=== PATIENT | female | born 1990 | race African-American/Black ===

== ENCOUNTER 2018-01-13 22:46 | Emergency (ER) | payer OTHER ==
[2018-01-13 23:43] LABS: Urine Blood 2+ (NEG); Urine Glucose NEGATIVE (NEG); Urine Protein NEGATIVE (NEG); Urine Specific Gravity >1.030 (1.005-1.030); Urine pH 6.5 (5.0-7.0)
[2018-01-14] MEDS ORDERED: PROMETHAZINE 25 MG/ML VIAL ONE (00:30)
[2018-01-14] MEDS ORDERED: NA CHLORIDE 0.9% 1,000 ML ONE (00:30)
[2018-01-14 00:32] LABS: Absolute Lymphocytes (CBC) 5.1 K/uL (0.7-4.9); Absolute Monocytes 0.8 K/uL (0.1-1.3); Absolute Neutrophil 3.9 K/uL (1.8-8.0); Basophils % 0.6 % (0-1.3); Hematocrit 36.8 % (36.0-45.0); Lymphocytes % 50.2 % (15.3-44.8); MCH 29.9 pg (27.0-35.0); MCV 90.5 fL (80-100); MPV 9.9 fL (7.6-11.3); Monocytes % 7.8 % (3.3-12.3); RBC Red Blood Cell Count 4.06 M/uL (3.86-4.86)
[2018-01-14 00:56] LABS: Bicarbonate 27 mEq/L (21-31); Glucose Level 100 mg/dL (65-120); Lipase 26 U/L (22-51); Potassium 3.8 mEq/L (3.6-5.0); Sodium Level 138 mEq/L (135-145)
[2018-01-14 01:02] LABS: ALT/SGPT 21 IU/L (10-60); AST/SGOT 23 IU/L (10-42); Albumin 3.7 g/dL (3.2-5.5); BUN Blood Urea Nitrogen 14 mg/dL (6-20); Bilirubin Direct 0.1 mg/dL (0-0.2); Bilirubin Total 0.3 mg/dL (0.3-1.2); Glomerular Filtration Rate 90 mL/min (=/>90); Protein, Total 6.6 g/dL (6.0-8.3)
--- NOTE | 2018-01-14 01:28 | EDPHYS ---
Physician Documentation [facility] Name: Pretty Robbins Age: 27 yrs Sex: Female : 1990 Arrival Date: 01/13/2018 Time: 22:49 Bed 16 Private MD: ED Physician Arvind Torres HPI: 01/14 01:00 This 27 yrs old Black Female presents to ER via Ambulatory with complaints of Vomiting. pm1 01:00 The patient presents to the emergency department with nausea, vomiting, 5 times since pm1 the onset of symptoms, described as bilious. Onset: The symptoms/episode began/occurred today. Possible causes: possible . The symptoms are aggravated by nothing. The symptoms are alleviated by nothing. Associated signs and symptoms: Pertinent negatives: abdominal pain, diarrhea, dysuria, fever, vaginal discharge, Vaginal bleeding. patient believes that she might be . Patient reports breast tenderness along with nausea and vomiting. 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 It has been more than one year since last vaccine. - Social history:: Smoking status: Patient uses tobacco products, smokes one-half pack cigarettes per day, Patient/guardian denies using alcohol, street drugs. - Ebola Screening: : Patient negative for fever greater than or equal to 101.5 degrees Fahrenheit, and additional compatible Ebola Virus Disease symptoms Patient denies exposure to infectious person Patient denies travel to an Ebola-affected area in the 21 days before illness onset No symptoms or risks identified at this time. ROS: 01:00 Constitutional: Negative for fever, chills, and weight loss, Eyes: Negative for injury, pm1 pain, redness, and discharge, ENT: Negative for injury, pain, and discharge, Neck: Negative for injury, pain, and swelling, Cardiovascular: Negative for chest pain, palpitations, and edema, Respiratory: Negative for shortness of breath, cough, wheezing, and pleuritic chest pain. 01:00 Back: Negative for injury and pain, : Negative for injury, bleeding, discharge, and swelling, MS/Extremity: Negative for injury and deformity, Skin: Negative for injury, rash, and discoloration, Neuro: Negative for headache, weakness, numbness, tingling, and seizure. 01:00 Abdomen/GI: Positive for nausea and vomiting, Negative for abdominal pain, diarrhea. Exam: 01:00 Constitutional: This is a well developed, well nourished patient who is awake, alert, pm1 and in no acute distress. Head/Face: Normocephalic, atraumatic. Eyes: Pupils equal round and reactive to light, extra-ocular motions intact. Lids and lashes normal. Conjunctiva and sclera are non-icteric and not injected. Cornea within normal limits. Periorbital areas with no swelling, redness, or edema. ENT: Nares patent. No nasal discharge, no septal abnormalities noted. Tympanic membranes are normal and external auditory canals are clear. Oropharynx with no redness, swelling, or masses, exudates, or evidence of obstruction, uvula midline. Mucous membranes moist. Neck: Trachea midline, no thyromegaly or masses palpated, and no cervical lymphadenopathy. Supple, full range of motion without nuchal rigidity, or vertebral point tenderness. No Meningismus. Chest/axilla: Normal chest wall appearance and motion. Nontender with no deformity. No lesions are appreciated. Cardiovascular: Regular rate and rhythm with a normal S1 and S2. No gallops, murmurs, or rubs. Normal PMI, no JVD. No pulse deficits. Respiratory: Lungs have equal breath sounds bilaterally, clear to auscultation and percussion. No rales, rhonchi or wheezes noted. No increased work of breathing, no retractions or nasal flaring. Abdomen/GI: Soft, non-tender, with normal bowel sounds. No distension or tympany. No guarding or rebound. No evidence of tenderness throughout. Back: No spinal tenderness. No costovertebral tenderness. Full range of motion. Skin: Warm, dry with normal turgor. Normal color with no rashes, no lesions, and no evidence of cellulitis. MS/ Extremity: Pulses equal, no cyanosis. Neurovascular intact. Full, normal range of motion. 01:00 Neuro: Orientation: is normal, Motor: is normal, moves all fours. Vital Signs: 01/13 23:09 BP 127 / 79 RA Sitting (auto/); Pulse 90; Resp 20; Temp 98.8(O); Pulse Ox 100% on R/A; ar4 Pain 10/10; 23:30 BP 131 / 77; Pulse 94; Resp 18; Pulse Ox 100% ; Pain 10/10; tc3 01/14 00:00 BP 114 / 74; Pulse 80; Resp 16; Pulse Ox 100% ; tc3 00:30 BP 113 / 68; Pulse 81; Resp 16; Temp 98.7(O); Pulse Ox 100% ; Pain 10/10; tc3 01:00 BP 124 / 76; Pulse 84; Resp 16; Pulse Ox 99% ; Pain 10/10; tc3 01:44 BP 127 / 83 RA Sitting (auto/); Pulse 75; Resp 18; Pulse Ox 99% on R/A; ar4 MDM: 01/13 23:20 Patient medically screened. pm1 01/14 01:24 Data reviewed: vital signs. Data interpreted: Pulse oximetry: on room air is 99 %. pm1 Interpretation: normal. Counseling: I had a detailed discussion with the patient and/or guardian regarding: the historical points, exam findings, and any diagnostic results supporting the discharge/admit diagnosis, lab results, the need for outpatient follow up, to return to the emergency department if symptoms worsen or persist or if there are any questions or concerns that arise at home. 01/13 23:35 Order name: Urine Dipstick--Ancillary (enter results) [facility] 01/13 23:35 Order name: Urine --Ancillary (enter results) [facility] 01/13 23:36 Order name: Basic Metabolic Panel 1 01/13 23:36 Order name: CBC with Diff pm1 01/13 23:36 Order name: Hepatic Function pm1 01/13 23:36 Order name: Lipase pm1 01/13 23:36 Order name: Test, Serum pm1 01/13 23:44 Order name: Urine --Ancillary; Complete Time: 23:59 EDMS 01/13 23:44 Order name: Urine Dipstick-Ancillary; Complete Time: 23:59 EDMS 01/14 00:47 Order name: CBC with Automated Diff; Complete Time: 00:52 [facility] 01/14 00:51 Order name: Test Serum, [employer] [facility] 01/14 00:56 Order name: Basic Metabolic Panel [facility] 01/14 00:56 Order name: Lipase [facility] 01/14 01:02 Order name: Liver (Hepatic) Function [facility] 01/13 23:20 Order name: Urine Dipstick-Ancillary (obtain specimen); Complete Time: 23:34 pm1 01/13 23:20 Order name: Urine Test (obtain specimen); Complete Time: 23:34 pm1 01/13 23:36 Order name: IV Saline Lock; Complete Time: 00:18 pm1 01/13 23:36 Order name: Labs collected and sent; Complete Time: 00:17 pm1 Administered Medications: 00:17 Drug: Phenergan 12.5 mg Route: IVP; Site: left antecubital; tc3 00:55 Follow up: Response: No adverse reaction; Nausea is decreased; Vomiting decreased tc3 00:17 Drug: NS 0.9% 1000 ml Route: IV; Rate: 1000 ml; Site: left antecubital; tc3 01:22 Follow up: IV Status: Completed infusion; IV Intake: 1000ml tc3 01:28 CANCELLED (Duplicate Order): Bentyl 20 mg PO once tc3 01:35 Drug: Bentyl 20 mg Route: PO; tc3 Disposition: 01/14/18 01:28 Discharged to Home. Impression: Nausea and vomiting. - Condition is Stable. - Discharge Instructions: Nausea and Vomiting. - Prescriptions for Bentyl 20 mg Oral Tablet - take 1 tablet by ORAL route every 6 hours As needed; 20 tablet. Zofran 4 mg Oral Tablet - take 1 tablet by ORAL route every 12 hours As needed; 20 tablet. - Medication Reconciliation Form, Thank You Letter, Antibiotic Education form. - Follow up: Emergency Department; When: As needed; Reason: Worsening of condition. Follow up: Private Physician; When: 2 - 3 days; Reason: Recheck today's complaints, Continuance of care, Re-evaluation by your physician. - Problem is new. - Symptoms have improved. Addendum: 01/18/2018 06:23 Co-signature as Attending Physician, Arvind Torres MD. g s Signatures: Dispatcher [employer] [facility] Alphonse De Leon, X RAY OPERATOR X RAY OPERATOR pm1 Abbey Jhaveri RN RN tc3 Arvind Torres MD MD gs Roberts, Amber ar4 Corrections: (The following items were deleted from the chart) 01/14 01:28 01:28 Bentyl 20 mg PO once ordered. tc3 tc3
--- NOTE | 2018-01-14 01:28 | ER ---
Nurse's Notes [facility] Name: Pretty Robbins Age: 27 yrs Sex: Female : 1990 Arrival Date: 01/13/2018 Time: 22:49 Bed 16 Private MD: Diagnosis: Nausea and vomiting Presentation: 01/13 23:07 Presenting complaint: Patient states: "I have been throwing up since about 7:00 p.m. I ar4 have been nauseated the past few days. There is a possibility I might be .". Transition of care: patient was not received from another setting of care. Onset of symptoms was January 11, 2018. Care prior to arrival: None. 23:07 Method Of Arrival: Ambulatory ar4 23:07 Acuity: ALESSANDRO 3 ar4 Triage Assessment: 23:09 General: Appears in no apparent distress. uncomfortable, obese, Behavior is ar4 cooperative, agitated, restless. Pain: Complains of pain in abdomen; RLQ pain, lower back pain Pain radiates to right side and right flank to lower back. GI: Reports lower abdominal pain, nausea, vomiting, since Pt. reports, "Vomiting since 7:00 p.m. and nausea for the past couple of days.". 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 It has been more than one year since last vaccine. - Social history:: Smoking status: Patient uses tobacco products, smokes one-half pack cigarettes per day, Patient/guardian denies using alcohol, street drugs. - Ebola Screening: : Patient negative for fever greater than or equal to 101.5 degrees Fahrenheit, and additional compatible Ebola Virus Disease symptoms Patient denies exposure to infectious person Patient denies travel to an Ebola-affected area in the 21 days before illness onset No symptoms or risks identified at this time. Screenin/18 23:12 Abuse screen: Denies threats or abuse. Denies injuries from another. Nutritional tc3 screening: No deficits noted. Tuberculosis screening: No symptoms or risk factors identified. Fall Risk None identified. Assessment: 23:22 General: Appears in no apparent distress. uncomfortable, Behavior is cooperative, ar4 agitated, restless. Pain: Complains of pain in abdomen; RLQ, lower back, right side and right flank pain Pain radiates to right side and right flank; lower back Pain currently is 10 out of 10 on a pain scale. at worst was 10 out of 10 on a pain scale. Quality of pain is described as crampy, radiating, Pain began 4 hours ago. Is continuous. Neuro: Level of Consciousness is awake, alert, obeys commands, Oriented to person, place, time, situation, Tube Washer are equal bilaterally Moves all extremities. Gait is steady, Speech is normal, Facial symmetry appears normal, Pupils are PERRLA. Cardiovascular: Reports nausea, shortness of breath, vomiting, Denies chest pain, Heart tones S1 S2 present Capillary refill < 3 seconds is brisk in bilateral fingers Patient's skin is warm and dry. Pulses are all present. Rhythm is regular Chest pain is denied. Respiratory: Airway is patent Breath sounds are clear bilaterally. GI: Abdomen is round non-distended, Bowel sounds present X 4 quads. Abd is soft and non tender in epigastric area, suprapubic area, right upper quadrant, left upper quadrant and left lower quadrant Abd is soft X 4 quads Abdomen is tender to palpation in right lower quadrant. : No signs and/or symptoms were reported regarding the genitourinary system. EENT: No signs and/or symptoms were reported regarding the EENT system. Derm: Skin is intact, is healthy with good turgor, Skin is dry, Skin is normal, Skin temperature is warm. Musculoskeletal: No signs and/or symptoms reported regarding the musculoskeletal system. 01/14 00:11 Reassessment: Patient appears in no apparent distress at this time. No changes from tc3 previously documented assessment. Patient and/or family updated on plan of care and expected duration. Pain level reassessed. Patient is alert, oriented x 3, equal unlabored respirations, skin warm/dry/pink. Pt continues to c/o pain, PHeather De Leon, MEDICAL CERTIFICATION SPECIALIST-C notified. 01:03 Reassessment: Patient appears in no apparent distress at this time. No changes from tc3 previously documented assessment. Patient and/or family updated on plan of care and expected duration. Pain level reassessed. Patient is alert, oriented x 3, equal unlabored respirations, skin warm/dry/pink. pt requests pain medication, JAYRO Samuel notified, he stated he would speak with pt. 01:48 Reassessment: Patient appears in no apparent distress at this time. Patient and/or tc3 family updated on plan of care and expected duration. Pain level reassessed. Patient is alert, oriented x 3, equal unlabored respirations, skin warm/dry/pink. Patient states symptoms have improved. Vital Signs: 01/13 23:09 BP 127 / 79 RA Sitting (auto/); Pulse 90; Resp 20; Temp 98.8(O); Pulse Ox 100% on R/A; ar4 Pain 10/10; 23:30 BP 131 / 77; Pulse 94; Resp 18; Pulse Ox 100% ; Pain 10/10; tc3 01/14 00:00 BP 114 / 74; Pulse 80; Resp 16; Pulse Ox 100% ; tc3 00:30 BP 113 / 68; Pulse 81; Resp 16; Temp 98.7(O); Pulse Ox 100% ; Pain 10/10; tc3 01:00 BP 124 / 76; Pulse 84; Resp 16; Pulse Ox 99% ; Pain 10/10; tc3 01:44 BP 127 / 83 RA Sitting (auto/); Pulse 75; Resp 18; Pulse Ox 99% on R/A; ar4 ED Course: 01/13 22:49 Patient arrived in ED. mr 23:09 Triage completed. ar4 23:09 Arm band placed on left wrist. ar4 23:11 Patient has correct armband on for positive identification. Placed in gown. Bed in low tc3 position. Call light in reach. Side rails up X 1. Pulse ox on. NIBP on. Warm blanket given. Verbal reassurance given. 23:19 Alphonse De Leon NP is PHCP. pm1 23:19 Arvind Torres MD is Attending Physician. pm1 23:37 Urine collected: clean catch specimen, clear. ar4 23:53 Abbey Jhaveri RN is Primary Nurse. tc3 01/14 00:07 Inserted saline lock: 20 gauge in left antecubital area, using aseptic technique. Blood ar4 collected. 00:17 Basic Metabolic Panel Sent. tc3 00:17 CBC with Diff Sent. tc3 00:18 Hepatic Function Sent. tc3 00:18 Lipase Sent. tc3 00:18 Urine Dipstick--Ancillary (enter results) Sent. tc3 00:18 Urine --Ancillary (enter results) Sent. tc3 00:18 Test, Serum Sent. tc3 01:36 No provider procedures requiring assistance completed. IV discontinued, intact, tc3 bleeding controlled, No redness/swelling at site. Pressure dressing applied. Administered Medications: 00:17 Drug: Phenergan 12.5 mg Route: IVP; Site: left antecubital; tc3 00:55 Follow up: Response: No adverse reaction; Nausea is decreased; Vomiting decreased tc3 00:17 Drug: NS 0.9% 1000 ml Route: IV; Rate: 1000 ml; Site: left antecubital; tc3 01:22 Follow up: IV Status: Completed infusion; IV Intake: 1000ml tc3 01:28 CANCELLED (Duplicate Order): Bentyl 20 mg PO once tc3 01:35 Drug: Bentyl 20 mg Route: PO; tc3 Intake: 01:22 IV: 1000ml; Total: 1000ml. tc3 Outcome: 01:28 Discharge ordered by . pm1 01:46 Discharged to home ambulatory. ar4 01:46 Condition: good 01:46 Discharge instructions given to patient, Instructed on discharge instructions, follow up and referral plans. medication usage, Demonstrated understanding of instructions, follow-up care, medications, Prescriptions given X 2. 01:52 Patient left the ED. tc3 01:53 Attestation : I concur with the documentation charted by DAVID Clark. tc3 Signatures: Evie Miller mr De Leon, Alphonse, DIRECTOR OF COMPENSATION DIRECTOR OF COMPENSATION pm1 Abbey Jhaveri RN RN tc3 Pretty Holguin ar4 Corrections: (The following items were deleted from the chart) 01/13 23:21 23:17 General: Appears in no apparent distress. uncomfortable, obese, Behavior is ar4 cooperative, agitated, restless, ar4 23:21 23:17 Pain: Complains of pain in abdomen; RLQ pain, lower back pain Pain radiates to ar4 right side and right flank to lower back ar4 23:21 23:17 GI: Reports lower abdominal pain, nausea, vomiting, since Pt. reports, "Vomiting ar4 since 7:00 p.m. and nausea for the past couple of days." ar4 23:19 BP 127 / 79 Sitting Auto R Arm; Pulse 90bpm; Resp 20bpm; Pulse Ox 100% RA; Temp ar4 98.8F Oral; Pain 08/07; ar4 23:19 2, Living 2, LMP 12/11/2017 ar4 ar4 01/14 02:01 02:00 Patient left the ED. tc3 tc3
[2018-01-14] MEDS ORDERED: DICYCLOMINE HCL 10 MG CAP ONE (01:51)
[2018-01-14 02:32] LABS: Alkaline Phosphatase 60 IU/L (42-121)
== END 2018-01-14 02:00 | disposition home or self-care (01) ==
LOC: ER 22:46
DX: R11.2 Nausea with vomiting, unspecified (principal); F17.210 Nicotine dependence, cigarettes, uncomplicated; Z88.5 Allergy status to narcotic agent
CPT/HCPCS: 36415; 80048; 80076; 81003; 81025; 83690; 84703; 85025; 96361; 96374; 99284; J2550; J7030

== ENCOUNTER 2018-01-23 00:27 | Emergency (ER) | payer OTHER ==
[2018-01-23 01:13] LABS: Absolute Lymphocytes (CBC) 5.2 K/uL (0.7-4.9); Absolute Monocytes 0.9 K/uL (0.1-1.3); Absolute Neutrophil 6.6 K/uL (1.8-8.0); Basophils % 0.3 % (0-1.3); Eosinophils % 2.2 % (0-4.4); Hematocrit 37.5 % (36.0-45.0); Lymphocytes % 39.6 % (15.3-44.8); MCH 29.4 pg (27.0-35.0); MCV 90.1 fL (80-100); MPV 9.9 fL (7.6-11.3); Monocytes % 6.9 % (3.3-12.3); RBC Red Blood Cell Count 4.17 M/uL (3.86-4.86)
[2018-01-23 01:16] LABS: Potassium 3.6 mEq/L (3.6-5.0)
[2018-01-23] MEDS ORDERED: NA CHLORIDE 0.9% 1,000 ML ONE (01:27)
[2018-01-23] MEDS ORDERED: PROMETHAZINE 25 MG TABLET ONE (01:46)
[2018-01-23] MEDS ORDERED: ONDANSETRON 4 MG/2 ML VIAL ONE (02:15)
[2018-01-23] MEDS ORDERED: MORPHINE 4 MG/ML SYR ONE (02:15)
--- NOTE | 2018-01-23 02:19 | EDPHYS ---
Physician Documentation [facility] Name: Pretty Robbins Age: 27 yrs Sex: Female : 1990 Arrival Date: 01/23/2018 Time: 00:30 Bed 7 Private MD: ED Physician Farrukh Aquino HPI: 01/23 01:55 This 27 yrs old Black Female presents to ER via EMS with complaints of Syncope, Vaginal kdr Bleeding, + Preg <12wks. 01:56 The patient and family believe that the patient is and that she has had kdr several seizures today. The seizures are described as staring episodes. There was little or no tonic clonic activity. Onset: The symptoms/episode began/occurred today. Severity of symptoms: At their worst the symptoms were mild in the emergency department the symptoms have improved. The patient has experienced similar episodes in the past, several times. The patient has not recently seen a physician. The patient states that on her last visit, she was told that she was - a check of the records shows that she was not at that time. 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 - Social history:: Smoking status: Patient uses tobacco products, smokes one-half pack cigarettes per day, Patient/guardian denies using alcohol, street drugs. ROS: 01:56 Constitutional: Negative for fever, chills, and weight loss, Eyes: Negative for injury, kdr pain, redness, and discharge, ENT: Negative for injury, pain, and discharge, Neck: Negative for injury, pain, and swelling, Cardiovascular: Negative for chest pain, palpitations, and edema, Respiratory: Negative for shortness of breath, cough, wheezing, and pleuritic chest pain, Abdomen/GI: Negative for abdominal pain, nausea, vomiting, diarrhea, and constipation, Back: Negative for injury and pain, MS/Extremity: Negative for injury and deformity, Skin: Negative for injury, rash, and discoloration, Psych: Negative for depression, anxiety, suicide ideation, homicidal ideation, and hallucinations, Allergy/Immunology: Negative for hives, rash, and allergies, Endocrine: Negative for neck swelling, polydipsia, polyuria, polyphagia, and marked weight changes, Hematologic/Lymphatic: Negative for swollen nodes, abnormal bleeding, and unusual bruising. : Positive for vaginal bleeding, States her last period was in October. Neuro: Positive for headache, seizure activity, Negative for altered mental status, dizziness, tinnitus, tremor, visual changes. Exam: Constitutional: This is a well developed, well nourished patient who is awake, alert, kdr and in no acute distress. Head/Face: Normocephalic, atraumatic. Eyes: Pupils equal round and reactive to light, extra-ocular motions intact. Lids and lashes normal. Conjunctiva and sclera are non-icteric and not injected. Cornea within normal limits. Periorbital areas with no swelling, redness, or edema. Neck: Trachea midline, no thyromegaly or masses palpated, and no cervical lymphadenopathy. Supple, full range of motion without nuchal rigidity, or vertebral point tenderness. No Meningismus. Chest/axilla: Normal chest wall appearance and motion. Nontender with no deformity. No lesions are appreciated. Cardiovascular: Regular rate and rhythm with a normal S1 and S2. No gallops, murmurs, or rubs. Normal PMI, no JVD. No pulse deficits. Respiratory: Lungs have equal breath sounds bilaterally, clear to auscultation and percussion. No rales, rhonchi or wheezes noted. No increased work of breathing, no retractions or nasal flaring. Abdomen/GI: Soft, non-tender, with normal bowel sounds. No distension or tympany. No guarding or rebound. No evidence of tenderness throughout. Back: No spinal tenderness. No costovertebral tenderness. Full range of motion. Skin: Warm, dry with normal turgor. Normal color with no rashes, no lesions, and no evidence of cellulitis. MS/ Extremity: Pulses equal, no cyanosis. Neurovascular intact. Full, normal range of motion. Neuro: Awake and alert, GCS 15, oriented to person, place, time, and situation. Cranial nerves II-XII grossly intact. Motor strength 5/5 in all extremities. Sensory grossly intact. Cerebellar exam normal. Normal gait. Psych: Awake, alert, with orientation to person, place and time. Behavior, mood, and affect are within normal limits. Vital Signs: 00:33 BP 134 / 103; Pulse 96; Resp 17; Temp 98.9; Pulse Ox 98% ; Weight 93.44 kg; Height 5 tl1 ft. 4 in. (162.56 cm); Pain 10/10; 01:48 BP 125 / 91; Pulse 84; Resp 17; Pulse Ox 100% ; tl1 00:33 Body Mass Index 35.36 (93.44 kg, 162.56 cm) tl1 MDM: 01:56 Data reviewed: vital signs, nurses notes, lab test result(s). Counseling: I had a kdr detailed discussion with the patient and/or guardian regarding: the historical points, exam findings, and any diagnostic results supporting the discharge/admit diagnosis, lab results, the need for outpatient follow up. 02:18 Patient medically screened. kdr 01/23 00:40 Order name: Abo/rh Typing [facility] 01/23 00:40 Order name: Basic Metabolic Panel [facility] 01/23 00:40 Order name: CBC with Diff [facility] 01/23 00:49 Order name: Quantitative Hcg [facility] 01/23 01:11 Order name: Urine Dipstick--Ancillary (enter results) [facility] 01/23 01:11 Order name: Urine --Ancillary (enter results) [facility] 01/23 00:40 Order name: IV Saline Lock; Complete Time: 02:00 1 01/23 00:40 Order name: Labs collected and sent; Complete Time: 02:01 1 01/23 00:40 Order name: NPO; Complete Time: 02:01 1 01/23 01:06 Order name: CT Head Brain wo Cont kdr 01/23 00:40 Order name: Urine Dipstick-Ancillary (obtain specimen); Complete Time: 02:01 tl1 Administered Medications: 01:13 Drug: NS 0.9% 1000 ml Route: IV; Rate: 1 bolus; Site: right antecubital; tl1 02:30 Follow up: IV Status: Completed infusion 1 01:28 Drug: Phenergan 25 mg Route: PO; ao 02:29 Follow up: Response: No adverse reaction; Marked relief of symptoms tl1 02:03 Drug: morphine 4 mg Route: IVP; Infused Over: 2 mins; Site: right antecubital; tl1 02:29 Follow up: Response: No adverse reaction; Marked relief of symptoms; Pain is decreased tl1 02:03 Drug: Zofran 4 mg Route: IVP; Infused Over: 2 mins; Site: right antecubital; tl1 02:29 Follow up: Response: No adverse reaction; Marked relief of symptoms; Nausea is decreasedtl1 Disposition: 01/23/18 02:18 Discharged to Home. Impression: Headache, Mental status changes which appear to family as seizures, Stress, not elsewhere classified. - Condition is Stable. - Discharge Instructions: General Headache Without Cause. - Prescriptions for Tramadol 50 mg Oral Tablet - take 1 tablet by ORAL route every 8 hours as needed; 6 tablet. - Medication Reconciliation Form, Thank You Letter form. - Follow up: Private Physician; When: 2 - 3 days; Reason: If symptoms return, Further diagnostic work-up, Recheck today's complaints, Continuance of care, Re-evaluation by your physician. - Problem is an acute exacerbation. - Symptoms are resolved. Signatures: Dispatcher [employer] EDMS Farrukh Aquino MD MD [facility] Massiel Walsh RN RN tl1 Yayo Jackman RN RN ao
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
[2018-01-23 03:01] LABS: Urine Blood 1+ (NEG); Urine Glucose NEGATIVE (NEG); Urine Protein NEGATIVE (NEG); Urine Specific Gravity 1.025 (1.005-1.030); Urine pH 6.5 (5.0-7.0)
--- NOTE | 2018-01-23 08:21 | RAD REPORT ---
EXAM DESCRIPTION: CT - Head Brain Wo Cont - 01/23/2018 6:36 am CLINICAL HISTORY: Seizure COMPARISON: 09/20/2017, 01/02/2017 TECHNIQUE: All CT scans are performed using dose optimization technique as appropriate and may inclu de automated exposure control or mA/KV adjustment according to patient size. FINDINGS: No intracranial hemorrhage, hydrocephalus or extra-axial fluid collection.No areas of brai n edema or evidence of midline shift. The paranasal sinuses and mastoids are clear. The calvarium is intact. IMPRESSION: No acute intracranial abnormality.
== END 2018-01-23 02:32 | disposition home or self-care (01) ==
LOC: ER 00:27
DX: R41.82 Altered mental status, unspecified (principal); Z73.3 Stress, not elsewhere classified; F17.210 Nicotine dependence, cigarettes, uncomplicated; F41.9 Anxiety disorder, unspecified; Z88.5 Allergy status to narcotic agent
CPT/HCPCS: 36415; 70450; 80048; 81003; 81025; 84702; 85025; 86900; 86901; 96361; 96374; 96375; 99284; J2405; J7030

== ENCOUNTER 2018-03-21 23:17 | Emergency (ER) | payer OTHER ==
[2018-03-22] MEDS ORDERED: CODEINE 30MG/APAP 300MG TAB ONE (00:36)
[2018-03-22] MEDS ORDERED: PROMETHAZINE 25 MG TABLET ONE (00:37)
[2018-03-22 01:54] LABS: Urine Blood NEGATIVE (NEG); Urine Glucose NEGATIVE (NEG); Urine Protein NEGATIVE (NEG); Urine Specific Gravity 1.025 (1.005-1.030); Urine pH 6.5 (5.0-7.0)
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
== END 2018-03-22 03:09 | disposition home or self-care (01) ==
LOC: ER 23:17
DX: S16.1XXA Strain of muscle, fascia and tendon at neck level, initial encounter (principal); M62.830 Muscle spasm of back; V49.49XA Driver injured in collision with other motor vehicles in traffic accident, initial encounter; Z88.6 Allergy status to analgesic agent; F41.9 Anxiety disorder, unspecified
CPT/HCPCS: 70450; 72125; 81003; 81025; 99284

== ENCOUNTER 2018-09-25 09:33 | Emergency (ER) | payer OTHER ==
[2018-09-25] MEDS ORDERED: ASPIRIN 81 MG CHEWABLE TABLET ONE (10:56)
[2018-09-25] MEDS ORDERED: ACETAMINOPHEN 325 MG TABLET ONE (10:56)
[2018-09-25] MEDS ORDERED: ONDANSETRON 4 MG/2 ML VIAL ONE (10:57)
[2018-09-25] MEDS ORDERED: METOCLOPRAMIDE 10 MG/2mL INJ ONE (10:57)
[2018-09-25 11:06] LABS: Absolute Lymphocytes (CBC) 2.6 K/uL (0.7-4.9); Absolute Monocytes 0.5 K/uL (0.1-1.3); Absolute Neutrophil 3.5 K/uL (1.8-8.0); Basophils % 0.4 % (0-1.3); Eosinophils % 1.8 % (0-4.4); Hematocrit 37.2 % (36.0-45.0); Lymphocytes % 38.8 % (15.3-44.8); MCH 29.8 pg (27.0-35.0); MCV 90.4 fL (80-100); MPV 9.8 fL (7.6-11.3); Monocytes % 7.4 % (3.3-12.3); RBC Red Blood Cell Count 4.11 M/uL (3.86-4.86)
[2018-09-25 11:07] LABS: Protime INR 1.05
[2018-09-25 11:18] LABS: ALT/SGPT 23 U/L (12-78); AST/SGOT 16 U/L (15-37); Albumin 3.4 g/dL (3.4-5.0); Alkaline Phosphatase 78 U/L (45-117); BUN Blood Urea Nitrogen 12 mg/dL (7-18); Bicarbonate 27 mmol/L (21-32); Bilirubin Direct 0.1 mg/dL (0-0.2); Bilirubin Total 0.5 mg/dL (0.2-1.0); Glucose Level 89 mg/dL (74-106); NT PRO-BNP 54 pg/mL (<125); Potassium 4.2 mmol/L (3.5-5.1); Protein, Total 6.7 g/dL (6.4-8.2); Sodium Level 142 mmol/L (136-145); Troponin (Emerg Dept Use Only) < 0.02 ng/mL (0.0-0.045)
[2018-09-25 11:32] LABS: Urine Blood NEGATIVE (NEG); Urine Glucose NEGATIVE (NEG); Urine Protein NEGATIVE (NEG); Urine pH 7.5 (5.0-7.0)
[2018-09-25] MEDS ORDERED: NA CHLORIDE 0.9% 1,000 ML ONE (12:28)
[2018-09-25] MEDS ORDERED: MAGNE/ALUM HYDROXD 30 ML UCUP ONE (12:34)
[2018-09-25] MEDS ORDERED: DEXAMETHASONE 10 MG/ML VIAL ONE (12:34)
[2018-09-25] MEDS ORDERED: LIDOCAINE VISCOUS 2% SOLN 15 ML UDC ONE (12:34)
--- NOTE | 2018-09-25 13:11 | RAD REPORT ---
EXAM DESCRIPTION: Reji Single View09/25/2018 11:09 am CLINICAL HISTORY: Chest pain COMPARISON: April 2017 FINDINGS: The lungs appear clear of acute infiltrate. The heart is normal size IMPRESSION: No acute abnormalities displayed
--- NOTE | 2018-09-25 13:57 | EKG ---
Test Date: 2018-09-25 Test Time: 09:44:16 Awning Hanger Supervisor: AG/Fadi MEASUREMENT RESULTS: Intervals: Rate: 70 IA: 156 QRSD: 80 QT: 376 QTc: 406 [place]: P: 41 IA: 156 QRS: 68 T: 15 INTERPRETIVE STATEMENTS: Normal sinus rhythm Normal ECG Compared to ECG 09/20/2017 19:33:06 No significant changes Electronically Signed On 09-25-18 13:56:57 FIELD ENGINEER by Alfonso Mcrae
--- NOTE | 2018-09-25 14:27 | ER ---
Nurse's Notes [facility] Name: Pretty Robbins Age: 28 yrs Sex: Female : 1990 Arrival Date: 09/25/2018 Time: 09:36 Bed 14 Private MD: Diagnosis: Chest pain, unspecified;Headache Presentation: 09/25 09:37 Presenting complaint: EMS states: Substernal chest pain that radiate to right arm, jl7 started at 0630, denies N/V. Transition of care: patient was not received from another setting of care. Onset of symptoms was September 25, 2018 at 06:30. Risk Assessment: Do you want to hurt yourself or someone else? Patient reports no desire to harm self or others. Initial Sepsis Screen: Does the patient meet any 2 criteria? No. Patient's initial sepsis screen is negative. Does the patient have a suspected source of infection? No. Patient's initial sepsis screen is negative. Care prior to arrival: None. 09:37 Method Of Arrival: EMS: [facility] 09:37 Acuity: ALESSANDRO 3 jl7 Triage Assessment: 09:39 General: Appears in no apparent distress. uncomfortable, Behavior is calm, cooperative. jl7 Pain: Complains of pain in mid-sternal area Pain radiates to right arm Pain currently is 10 out of 10 on a pain scale. Quality of pain is described as pressure, sharp, Pain began 3 hours ago. Is continuous. EENT: No signs and/or symptoms were reported regarding the EENT system. Neuro: Level of Consciousness is awake, alert, obeys commands, Oriented to person, place, time, situation. Cardiovascular: Heart tones S1 S2 present Patient's skin is warm and dry. Respiratory: Airway is patent Respiratory effort is even, unlabored, Respiratory pattern is regular, symmetrical, Breath sounds are clear bilaterally. Derm: Skin is pink, warm \\T\\ dry. 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 - Social history:: Smoking status: Patient uses tobacco products, "I smoke 3-4 cigarettes per day.". - Ebola Screening: : No symptoms or risks identified at this time. Screenin:42 Abuse screen: Denies threats or abuse. Denies injuries from another. Nutritional jl7 screening: No deficits noted. Tuberculosis screening: No symptoms or risk factors identified. Fall Risk IV access (20 points). Total Wetzel Fall Scale indicates No Risk (0-24 pts). Assessment: :42 General: See triage assessment. jl7 11:00 Reassessment: Patient appears in no apparent distress at this time. No changes from jl7 previously documented assessment. Patient and/or family updated on plan of care and expected duration. Pain level reassessed. Patient is alert, oriented x 3, equal unlabored respirations, skin warm/dry/pink. 12:00 Reassessment: Patient appears in no apparent distress at this time. Patient and/or jl7 family updated on plan of care and expected duration. Pain level reassessed. Patient is alert, oriented x 3, equal unlabored respirations, skin warm/dry/pink. 13:00 Reassessment: Patient and/or family updated on plan of care and expected duration. Pain jl7 level reassessed. Patient is alert, oriented x 3, equal unlabored respirations, skin warm/dry/pink. 14:00 Reassessment: Patient and/or family updated on plan of care and expected duration. Pain jl7 level reassessed. Patient is alert, oriented x 3, equal unlabored respirations, skin warm/dry/pink. 14:38 Reassessment: Pt will be discharged once fluids are done infusing. Pt instructed to jl7 keep arm down to allow fluids to flow in, pt verbalized understanding. Vital Signs: 09:39 BP 112 / 68; Pulse 72; Resp 16 S; Temp 98.4(O); Pulse Ox 99% on R/A; Weight 92.08 kg jl7 (R); Height 5 ft. 4 in. (162.56 cm) (R); Pain 10/10; 11:15 BP 104 / 71 LA Supine (auto/lg); Pulse 67; Resp 18; Pulse Ox 97% on R/A; jp3 12:30 BP 104 / 72; Pulse 63; Resp 16 S; Pulse Ox 98% on R/A; jl7 14:00 BP 100 / 67; Pulse 65; Resp 16; Pulse Ox 98% ; jl7 14:38 BP 100 / 62; Pulse 66; Resp 16; Pulse Ox 100% on R/A; Pain 5/10; jl7 15:17 BP 120 / 77; Pulse 65; Resp 16 S; Pulse Ox 100% on R/A; jl7 09:39 Body Mass Index 34.84 (92.08 kg, 162.56 cm) jl7 ED Course: 09:36 Patient arrived in ED. jl7 09:38 Triage completed. jl7 09:38 Jarvis William MD is Attending Physician. cp 09:38 Jarvis Bartlett PA is PHCP. cp 09:39 Arm band placed on right wrist. jl7 09:42 Patient has correct armband on for positive identification. Placed in gown. Bed in low jl7 position. Call light in reach. Side rails up X2. desk monitor on. Pulse ox on. NIBP on. 09:42 Patient maintains SpO2 saturation greater than 95% on room air. jl7 09:49 EKG done, by transmission technician. reviewed by Jarvis WARD. at1 11:03 X-ray completed. Portable x-ray completed in exam room. Patient tolerated procedure jb2 well. 11:08 Robinson Gamboa, ROMI is Primary Nurse. jl7 11:10 XRAY Chest (1 view) In Process Unspecified. EDMS 13:39 REPEAT EKG WAS DONE. sm3 15:18 No provider procedures requiring assistance completed. IV discontinued, intact, jl7 bleeding controlled, No redness/swelling at site. Pressure dressing applied. Administered Medications: 11:05 Drug: Zofran 4 mg Route: IVP; Site: right antecubital; jl7 12:00 Follow up: Response: No adverse reaction jl7 11:08 Drug: Tylenol 650 mg Route: PO; jl7 12:00 Follow up: Response: No adverse reaction; Pain is unchanged, physician notified jl7 11:09 Drug: Aspirin Chewable Tablet 324 mg Route: PO; jl7 12:00 Follow up: Response: No adverse reaction jl7 11:09 Drug: Reglan 10 mg Route: IVP; Site: right antecubital; jl7 12:00 Follow up: Response: No adverse reaction; Pain is decreased jl7 12:20 Drug: NS 0.9% 1000 ml Route: IV; Rate: 1 bolus; Site: right antecubital; jl7 13:30 Follow up: IV Status: Pt had arm bent, instructed pt to keep arm open to allow fluids jl7 to flow in, pt verbalized understanding 15:17 Follow up: IV Status: Completed infusion jl7 12:35 Drug: GI Cocktail without - (Maalox Suspension 30 ml, Lidocaine Liquid 2 % 15 jl7 ml) Route: PO; 13:59 Follow up: Response: No adverse reaction jl7 12:38 Drug: Decadron - Dexamethasone 10 mg Route: IVP; Site: right antecubital; jl7 13:59 Follow up: Response: No adverse reaction jl7 Outcome: 14:26 Discharge ordered by . low 15:18 Discharged to home ambulatory. jl7 15:18 Condition: stable 15:18 Discharge instructions given to patient, Instructed on discharge instructions, follow up and referral plans. medication usage, Demonstrated understanding of instructions, follow-up care, medications, Prescriptions given X 3. 15:19 Patient left the ED. jl7 Signatures: Dispatcher [employer] EDMS Roberto Gallo2 Gisell Benavidez, animal biologist EKG Tat1 Jarvis Bartlett PA PA cp Leal, Jahala, RN RN jl7 Ann Marie Champion sm3 Rosas Lopez jp3
--- NOTE | 2018-09-25 14:27 | EDPHYS ---
Physician Documentation [facility] Name: Pretty Robbins Age: 28 yrs Sex: Female : 1990 Arrival Date: 09/25/2018 Time: 09:36 Bed 14 Private MD: ED Physician Jarvis William HPI: 09/25 09:58 This 28 yrs old Black Female presents to ER via EMS with complaints of Chest Pain. cp 09:58 The patient or guardian reports chest pain that is located primarily in the anterior cp chest wall, right. The pain radiates to the right arm. Associated signs and symptoms: Pertinent positives: headache, Pertinent negatives: abdominal pain, cough, lower extremity pain, lower extremity swelling, shortness of breath. The chest pain is described as a pressure. 09:58 Duration: The patient or guardian reports a single episode, that is still ongoing. 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 - Social history:: Smoking status: Patient uses tobacco products, "I smoke 3-4 cigarettes per day.". - Ebola Screening: : No symptoms or risks identified at this time. ROS: 10:00 Constitutional: Negative for body aches, chills, fever, poor PO intake. cp 10:00 Eyes: Negative for injury, pain, redness, and discharge. cp 10:00 ENT: Negative for drainage from ear(s), ear pain, sore throat, difficulty swallowing, difficulty handling secretions. 10:00 Cardiovascular: Positive for chest pain, Negative for edema, palpitations. 10:00 Respiratory: Negative for cough, shortness of breath, wheezing. 10:00 Abdomen/GI: Negative for abdominal pain, nausea, vomiting, and diarrhea. 10:00 Skin: Negative for cellulitis, rash. 10:00 Neuro: Positive for headache, Negative for altered mental status, dizziness, syncope, near syncope, weakness. 10:00 All other systems are negative. Exam: 09:55 ECG was reviewed by the Attending Physician. cp 10:05 Constitutional: The patient appears in no acute distress, alert, awake, cp non-diaphoretic, non-toxic, well developed, well nourished. 10:05 Head/Face: Normocephalic, atraumatic. Eyes: Pupils equal round and reactive to light, cp extra-ocular motions intact. Lids and lashes normal. Conjunctiva and sclera are non-icteric and not injected. Cornea within normal limits. Periorbital areas with no swelling, redness, or edema. ENT: Nares patent. No nasal discharge, no septal abnormalities noted. Tympanic membranes are normal and external auditory canals are clear. Oropharynx with no redness, swelling, or masses, exudates, or evidence of obstruction, uvula midline. Mucous membranes moist. Neck: Trachea midline, no thyromegaly or masses palpated, and no cervical lymphadenopathy. Supple, full range of motion without nuchal rigidity, or vertebral point tenderness. No Meningismus. 10:05 Chest/axilla: Inspection: normal, Palpation: crepitus, is not appreciated, tenderness, that is mild, of the mid-sternal area, that partially reproduces the patient's complaints. 10:05 Cardiovascular: Rate: normal, Rhythm: regular, Pulses: Pulses are 2+ in right radial artery and left radial artery. Heart sounds: murmur, not appreciated, rub, not appreciated, Edema: is not appreciated, JVD: is not appreciated. 10:05 Respiratory: the patient does not display signs of respiratory distress, Respirations: normal, no use of accessory muscles, no retractions, no splinting, no tachypnea, labored breathing, is not present, Breath sounds: are clear throughout, no decreased breath sounds, no stridor, no wheezing. 10:05 Abdomen/GI: Inspection: abdomen appears normal, Bowel sounds: active, all quadrants, Palpation: abdomen is soft and non-tender, in all quadrants, rebound tenderness, is not appreciated, voluntary guarding, is not appreciated, involuntary guarding, is not appreciated. 10:05 Back: pain, is absent, ROM is normal. 10:05 Skin: cellulitis, is not appreciated, no rash present. 10:05 Neuro: Orientation: to person, place \\T\\ time. Mentation: lucid, able to follow commands, Cerebellar function: is grossly normal, Motor: moves all fours, strength is normal, Sensation: 13:38 ECG was reviewed by the Attending Physician. cp Vital Signs: 09:39 BP 112 / 68; Pulse 72; Resp 16 S; Temp 98.4(O); Pulse Ox 99% on R/A; Weight 92.08 kg jl7 (R); Height 5 ft. 4 in. (162.56 cm) (R); Pain 10/10; 11:15 BP 104 / 71 LA Supine (auto/lg); Pulse 67; Resp 18; Pulse Ox 97% on R/A; jp3 12:30 BP 104 / 72; Pulse 63; Resp 16 S; Pulse Ox 98% on R/A; jl7 14:00 BP 100 / 67; Pulse 65; Resp 16; Pulse Ox 98% ; jl7 14:38 BP 100 / 62; Pulse 66; Resp 16; Pulse Ox 100% on R/A; Pain 5/10; jl7 15:17 BP 120 / 77; Pulse 65; Resp 16 S; Pulse Ox 100% on R/A; jl7 09:39 Body Mass Index 34.84 (92.08 kg, 162.56 cm) jl7 MDM: 09:40 Patient medically screened. cp 11:00 Differential diagnosis: acute myocardial infarction, acute pericarditis, chest wall cp pain, pancreatitis, pleurisy, pneumonia, pneumothorax, pulmonary embolus, stable angina, thoracic aortic disection, unstable angina. 14:25 Data reviewed: vital signs, nurses notes, lab test result(s), EKG, radiologic studies, cp plain films. 14:25 Test interpretation: by ED physician or midlevel provider: ECG, plain radiologic cp studies. Counseling: I had a detailed discussion with the patient and/or guardian regarding: the historical points, exam findings, and any diagnostic results supporting the discharge/admit diagnosis, lab results, radiology results, the need for outpatient follow up, a family practitioner, to return to the emergency department if symptoms worsen or persist or if there are any questions or concerns that arise at home. Special discussion: Based on the patient's history, exam, and Dx evaluation, there is no indication for emergent intervention or inpatient Tx. It is understood by the patient/guardian that if the Sx's persist or worsen they need to return immediately for re-evaluation. ED course: VSS. Pain improved with IV fluids and meds. Will discharge to home for continued monitoring. 09/25 09:54 Order name: Urine Dipstick--Ancillary (enter results); Complete Time: 11:41 09/25 11:41 Interpretation: Normal except: UPH 7.5; UESTR TRACE. 09/25 09:54 Order name: Urine --Ancillary (enter results); Complete Time: 11:41 eb 09/25 10:15 Order name: Basic Metabolic Panel; Complete Time: 11:41 09/25 11:41 Interpretation: Normal except: CL 110. 09/25 10:15 Order name: CBC with Diff; Complete Time: 11:41 09/25 10:15 Order name: LFT's; Complete Time: 11:41 09/25 11:49 Interpretation: Normal except: A/G 1.0. 09/25 10:15 Order name: Magnesium; Complete Time: 11:41 09/25 10:15 Order name: NT PRO-BNP; Complete Time: 11:41 09/25 10:15 Order name: PT-INR; Complete Time: 11:41 09/25 10:15 Order name: Troponin (emerg Dept Use Only); Complete Time: 11:41 09/25 11:42 Interpretation: TROPED < 0.02; Reviewed. 09/25 10:15 Order name: XRAY Chest (1 view); Complete Time: 13:22 09/25 13:22 Interpretation: Report review. 09/25 13:20 Order name: Troponin I; Complete Time: 14:24 09/25 10:15 Order name: Cardiac monitoring; Complete Time: 11:10 09/25 10:15 Order name: IV Saline Lock; Complete Time: 11:10 09/25 10:15 Order name: Labs collected and sent; Complete Time: 11:10 09/25 10:15 Order name: O2 Per Protocol; Complete Time: 11: 09/25 10:15 Order name: O2 Sat Monitoring; Complete Time: 11: 09/25 13:20 Order name: EKG; Complete Time: 13:20 09/25 13:20 Order name: EKG - Nurse/Tech; Complete Time: 13:56 cp EC:55 Rate is 70 beats/min. Rhythm is regular. MS interval is normal. QRS interval is normal. cp QT interval is normal. T waves are Inverted in lead III. Interpreted by me. Reviewed by me. 13:38 Rate is 67 beats/min. Rhythm is regular. MS interval is normal. QRS interval is normal. cp QT interval is normal. Interpreted by me. Reviewed by me. Administered Medications: 11:05 Drug: Zofran 4 mg Route: IVP; Site: right antecubital; jl7 12:00 Follow up: Response: No adverse reaction jl7 11:08 Drug: Tylenol 650 mg Route: PO; jl7 12:00 Follow up: Response: No adverse reaction; Pain is unchanged, physician notified jl7 11:09 Drug: Aspirin Chewable Tablet 324 mg Route: PO; jl7 12:00 Follow up: Response: No adverse reaction jl7 11:09 Drug: Reglan 10 mg Route: IVP; Site: right antecubital; jl7 12:00 Follow up: Response: No adverse reaction; Pain is decreased jl7 12:20 Drug: NS 0.9% 1000 ml Route: IV; Rate: 1 bolus; Site: right antecubital; jl7 13:30 Follow up: IV Status: Pt had arm bent, instructed pt to keep arm open to allow fluids jl7 to flow in, pt verbalized understanding 15:17 Follow up: IV Status: Completed infusion jl7 12:35 Drug: GI Cocktail without - (Maalox Suspension 30 ml, Lidocaine Liquid 2 % 15 jl7 ml) Route: PO; 13:59 Follow up: Response: No adverse reaction jl7 12:38 Drug: Decadron - Dexamethasone 10 mg Route: IVP; Site: right antecubital; jl7 13:59 Follow up: Response: No adverse reaction jl7 Disposition: 17:01 Co-signature as Attending Physician, Jarvis William MD I agree with the assessment and pete plan of care. Disposition: 09/25/18 14:26 Discharged to Home. Impression: Chest pain, unspecified, Headache. - Condition is Stable. - Discharge Instructions: Chest Wall Pain, Migraine Headache. - Prescriptions for Imitrex 50 mg Oral Tablet - take 1 tablet by ORAL route one time - x 1 dose with fluids as early as possible after the onset of a migraine attack; if headache returns, the dose may be repeated after 2 hours, not to exceed a total daily dose of 4 tablets;. Pepcid 20 mg Oral Tablet - take 1 tablet by ORAL route every 12 hours for 10 days; 20 tablet. Zofran 4 mg Oral Tablet - take 1 tablet by ORAL route every 12 hours As needed; 20 tablet. - Medication Reconciliation Form, Thank You Letter, Antibiotic Education, Prescription Opioid Use form. - Follow up: Private Physician; When: 1 - 2 days; Reason: Recheck today's complaints. - Problem is new. - Symptoms have improved. Signatures: Dispatcher [employer] EDJarvis Gutierrez MD MD cha Page, Corey, PA PA cp Robinson Gamboa, RN RN jl7 Corrections: (The following items were deleted from the chart) 15:19 14:26 09/25/2018 14:26 Discharged to Home. Impression: Chest pain, unspecified; jl7 Headache. Condition is Stable. Forms are Medication Reconciliation Form, Thank You Letter, Antibiotic Education, Prescription Opioid Use. Follow up: Private Physician; When: 1 - 2 days; Reason: Recheck today's complaints. Problem is new. Symptoms have improved. cp
--- NOTE | 2018-09-26 07:21 | EKG ---
Test Date: 2018-09-25 Test Time: 13:32:03 Prescription Clerk: LENNY MEASUREMENT RESULTS: Intervals: Rate: 67 WV: 180 QRSD: 82 QT: 392 QTc: 414 [place]: P: 44 WV: 180 QRS: 63 T: 35 INTERPRETIVE STATEMENTS: Normal sinus rhythm Normal ECG Compared to ECG 09/25/2018 09:44:16 No significant changes Electronically Signed On 09-26-18 07:20:46 PINSETTER MECHANIC HELPER by Alfonso Mcrae
== END 2018-09-25 15:19 | disposition home or self-care (01) ==
LOC: ER 09:33
DX: R51 Headache (principal); I10 Essential (primary) hypertension; F17.210 Nicotine dependence, cigarettes, uncomplicated; Z88.5 Allergy status to narcotic agent
CPT/HCPCS: 36415; 71045; 80048; 80076; 81003; 81025; 83735; 83880; 84484; 85025; 85610; 93005; 96361; 96374; 96375; 99285; J1100; J2405; J2765; J7030

== ENCOUNTER 2018-10-31 18:12 | Emergency (ER) | payer OTHER ==
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
[2018-10-31] MEDS ORDERED: CYCLOBENZAPRINE 10 MG TAB ONE (19:54)
[2018-10-31] MEDS ORDERED: HYDROCODONE/APAP 10/325 TAB ONE (19:54)
== END 2018-10-31 19:58 | disposition home or self-care (01) ==
LOC: ER 18:12
DX: M62.830 Muscle spasm of back (principal); I10 Essential (primary) hypertension; Z88.5 Allergy status to narcotic agent
CPT/HCPCS: 99283

== ENCOUNTER 2018-12-14 00:46 | Emergency (ER) | payer OTHER ==
[2018-12-14] MEDS ORDERED: MORPHINE 4 MG/ML SYR ONE (01:45)
[2018-12-14] MEDS ORDERED: ONDANSETRON 4 MG/2 ML VIAL ONE (01:45)
[2018-12-14 01:46] LABS: Absolute Lymphocytes (CBC) 3.8 K/uL (0.7-4.9); Absolute Monocytes 0.6 K/uL (0.1-1.3); Absolute Neutrophil 4.3 K/uL (1.8-8.0); Basophils % 0.4 % (0-1.3); Eosinophils % 0.4 % (0-4.4); Hematocrit 37.6 % (36.0-45.0); Lymphocytes % 43.3 % (15.3-44.8); MPV 9.8 fL (7.6-11.3); Monocytes % 6.6 % (3.3-12.3); RBC Red Blood Cell Count 4.25 M/uL (3.86-4.86)
[2018-12-14 01:50] LABS: Protime INR 1.12
[2018-12-14 02:04] LABS: ALT/SGPT 23 U/L (12-78); AST/SGOT 16 U/L (15-37); Albumin 3.8 g/dL (3.4-5.0); Alkaline Phosphatase 63 U/L (45-117); BUN Blood Urea Nitrogen 17 mg/dL (7-18); Bicarbonate 24 mmol/L (21-32); Bilirubin Direct 0.1 mg/dL (0-0.2); Bilirubin Total 0.4 mg/dL (0.2-1.0); Glucose Level 110 mg/dL (74-106); Magnesium 1.7 mg/dL (1.8-2.4); NT PRO-BNP 7 pg/mL (<125); Potassium 3.3 mmol/L (3.5-5.1); Protein, Total 7.1 g/dL (6.4-8.2); Sodium Level 142 mmol/L (136-145); Troponin (Emerg Dept Use Only) < 0.02 ng/mL (0.0-0.045)
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
[2018-12-14] MEDS ORDERED: HYDROCODONE/APAP 10/325 TAB ONE (02:41)
--- NOTE | 2018-12-14 11:31 | EKG ---
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
--- NOTE | 2018-12-14 11:57 | RAD REPORT ---
EXAM DESCRIPTION: RAD - Chest Single View - 12/14/2018 1:14 am CLINICAL HISTORY: CHEST PAIN Chest pain. COMPARISON: Chest Single View dated 09/25/2018; Chest Single View dated 05/20/2017; Chest Single View dated 11/13/2016; CHEST SINGLE VIEW dated 01/06/2014 FINDINGS: Portable technique limits examination quality. The lungs are grossly clear. The heart is normal in size. No displaced fractures. IMPRESSION: No acute intrathoracic process suspected.
== END 2018-12-14 02:49 | disposition home or self-care (01) ==
LOC: ER 00:46
DX: R07.1 Chest pain on breathing (principal); Z88.6 Allergy status to analgesic agent; F41.9 Anxiety disorder, unspecified; J45.909 Unspecified asthma, uncomplicated; I10 Essential (primary) hypertension
CPT/HCPCS: 36415; 71045; 80048; 80076; 83735; 83880; 84484; 84703; 85025; 85610; 93005; 96374; 96375; 99284; J2405

== ENCOUNTER 2018-12-24 08:07 | Emergency (ER) | payer OTHER ==
--- OUTSIDE RECORDS SUMMARY | 2018-12-24 08:09 | XMS REPORT ---
:1990 [facility] [address] [place] [address] Care Team Providers Name Role Phone Unavailable Unavailable Unavailable Problems This patient has no known problems. Allergies, Adverse Reactions, Alerts This patient has no known allergies or adverse reactions. Medications This patient has no known medications.
[2018-12-24 08:43] LABS: Urine Blood NEGATIVE (NEG); Urine Glucose NEGATIVE (NEG); Urine Protein NEGATIVE (NEG)
[2018-12-24] MEDS ORDERED: HYDROCODONE/APAP 5/325 MG TAB ONE (08:44)
[2018-12-24] MEDS ORDERED: CYCLOBENZAPRINE 10 MG TAB ONE (08:44)
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
--- NOTE | 2018-12-24 09:28 | RAD REPORT ---
EXAM DESCRIPTION: Reji Single View12/24/2018 8:48 am CLINICAL HISTORY: Chest pain COMPARISON: December 14, 2017 FINDINGS: The lungs appear clear of acute infiltrate. The heart is normal size IMPRESSION: No acute abnormalities displayed
--- NOTE | 2018-12-24 14:47 | EKG ---
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
== END 2018-12-24 09:22 | disposition home or self-care (01) ==
LOC: ER 08:07
DX: M62.830 Muscle spasm of back (principal); I10 Essential (primary) hypertension; F41.9 Anxiety disorder, unspecified; Z88.5 Allergy status to narcotic agent; Z88.8 Allergy status to other drugs, medicaments and biological substances
CPT/HCPCS: 71045; 81003; 81025; 93005; 99284

== ENCOUNTER 2019-02-14 14:57 | Emergency (ER) | payer OTHER, SELFPAY ==
--- OUTSIDE RECORDS SUMMARY | 2019-02-14 14:59 | XMS REPORT ---
:1990 [facility] [address] [place] [address] Care Team Providers Name Role Phone Unavailable Unavailable Unavailable Problems This patient has no known problems. Allergies, Adverse Reactions, Alerts This patient has no known allergies or adverse reactions. Medications This patient has no known medications.
[2019-02-14] MEDS ORDERED: NA CHLORIDE 0.9% 1,000 ML ONE (15:38)
[2019-02-14] MEDS ORDERED: DEXAMETHASONE 10 MG/ML VIAL ONE (15:39)
[2019-02-14] MEDS ORDERED: METOCLOPRAMIDE 10 MG/2mL INJ ONE (15:39)
[2019-02-14] MEDS ORDERED: DIPHENHYDRAMINE 50 MG/ML VIAL ONE (15:39)
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
[2019-02-14 20:02] LABS: Urine Blood NEGATIVE (NEG); Urine Glucose NEGATIVE (NEG); Urine Protein NEGATIVE (NEG)
== END 2019-02-14 16:56 | disposition home or self-care (01) ==
LOC: ER 14:57
DX: G43.909 Migraine, unspecified, not intractable, without status migrainosus (principal); M62.830 Muscle spasm of back; I10 Essential (primary) hypertension; F41.9 Anxiety disorder, unspecified; J45.909 Unspecified asthma, uncomplicated; Z88.8 Allergy status to other drugs, medicaments and biological substances
CPT/HCPCS: 81003; 81025; 96361; 96374; 96375; 99284; J1100; J2765; J7030

== ENCOUNTER 2019-03-05 17:53 | Emergency (ER) | payer SELFPAY ==
--- OUTSIDE RECORDS SUMMARY | 2019-03-05 17:55 | XMS REPORT ---
:1990 [facility] Address [address] [place] [address] Care Team Providers Name Role Phone Unavailable Unavailable Unavailable Problems This patient has no known problems. Allergies, Adverse Reactions, Alerts This patient has no known allergies or adverse reactions. Medications This patient has no known medications.
[2019-03-05 18:37] LABS: BUN Blood Urea Nitrogen 11 mg/dL (7-18); Bicarbonate 23 mmol/L (21-32); Glucose Level 108 mg/dL (74-106); Potassium 3.6 mmol/L (3.5-5.1); Sodium Level 141 mmol/L (136-145)
[2019-03-05 18:43] LABS: Absolute Lymphocytes (CBC) 3.3 K/uL (0.7-4.9); Absolute Monocytes 0.5 K/uL (0.1-1.3); Absolute Neutrophil 4.6 K/uL (1.8-8.0); Basophils % 0.3 % (0-1.3); Eosinophils % 1.5 % (0-4.4); Hematocrit 40.5 % (36.0-45.0); Lymphocytes % 38.3 % (15.3-44.8); MPV 9.6 fL (7.6-11.3); RBC Red Blood Cell Count 4.49 M/uL (3.86-4.86)
[2019-03-05] MEDS ORDERED: ACETAMINOPHEN 500 MG TAB ONE (18:49)
[2019-03-05 19:06] LABS: Urine Blood NEGATIVE (NEG); Urine Glucose NEGATIVE (NEG); Urine Protein NEGATIVE (NEG); Urine Specific Gravity 1.025 (1.005-1.030); Urine pH 7.5 (5.0-7.0)
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
[2019-03-05] MEDS ORDERED: MORPHINE 2 MG/ML SYR ONE (19:20)
--- NOTE | 2019-03-05 20:29 | EKG ---
Test Date: 2019-03-05 Test Time: 17:49:30 Dial Buffer: LENNY MEASUREMENT RESULTS: Intervals: Rate: 89 MA: 148 QRSD: 82 QT: 354 QTc: 430 Williams: P: 63 MA: 148 QRS: 87 T: 20 INTERPRETIVE STATEMENTS: Normal sinus rhythm Normal ECG Compared to ECG 12/24/2018 08:59:15 Myocardial infarct finding no longer present Electronically Signed On 03-05-19 20:29:04 CDT by Alfonso Mcrae
== END 2019-03-05 19:26 | disposition home or self-care (01) ==
LOC: ER 17:53
DX: G40.802 Other epilepsy, not intractable, without status epilepticus (principal); I10 Essential (primary) hypertension; F41.9 Anxiety disorder, unspecified; Z88.8 Allergy status to other drugs, medicaments and biological substances
CPT/HCPCS: 36415; 80048; 81003; 81025; 85025; 93005; 96374; 99284; J2270

== ENCOUNTER 2019-04-04 22:44 | Emergency (ER) | payer SELFPAY ==
--- OUTSIDE RECORDS SUMMARY | 2019-04-04 22:46 | XMS REPORT ---
:1990 [facility] Address [address] [place] [address] Care Team Providers Name Role Phone Unavailable Unavailable Unavailable Problems This patient has no known problems. Allergies, Adverse Reactions, Alerts This patient has no known allergies or adverse reactions. Medications This patient has no known medications.
[2019-04-04] MEDS ORDERED: ACETAMINOPHEN 325 MG TABLET ONE (23:51)
[2019-04-04] MEDS ORDERED: ONDANSETRON 4 MG/2 ML VIAL ONE (23:51)
[2019-04-04 23:56] LABS: Absolute Lymphocytes (CBC) 4.2 K/uL (0.7-4.9); Absolute Monocytes 0.8 K/uL (0.1-1.3); Absolute Neutrophil 3.4 K/uL (1.8-8.0); Basophils % 0.3 % (0-1.3); Eosinophils % 2.2 % (0-4.4); Hematocrit 37.3 % (36.0-45.0); Lymphocytes % 48.8 % (15.3-44.8); MPV 9.7 fL (7.6-11.3); Monocytes % 9.1 % (3.3-12.3); RBC Red Blood Cell Count 4.17 M/uL (3.86-4.86)
[2019-04-05 00:07] LABS: ALT/SGPT 23 U/L (12-78); AST/SGOT 11 U/L (15-37); Albumin 3.1 g/dL (3.4-5.0); Alkaline Phosphatase 72 U/L (45-117); BUN Blood Urea Nitrogen 14 mg/dL (7-18); Bicarbonate 24 mmol/L (21-32); Bilirubin Direct < 0.1 mg/dL (0-0.2); Bilirubin Total 0.2 mg/dL (0.2-1.0); Glucose Level 87 mg/dL (74-106); Lipase 123 U/L (73-393); Protein, Total 6.6 g/dL (6.4-8.2); Sodium Level 142 mmol/L (136-145)
[2019-04-05 00:26] LABS: Blood Morphology Comment NOT SEEN (NOT SEEN); Platelet Estimate ADEQ
[2019-04-05] MEDS ORDERED: FENTANYL CITR 100 MCG/2 ML ONE (01:32)
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
[2019-04-05] MEDS ORDERED: ONDANSETRON 4 MG/2 ML VIAL ONE (01:58)
--- NOTE | 2019-04-07 11:59 | RAD REPORT ---
EXAM DESCRIPTION: CT - Abdomen Pelvis W Contrast - 04/05/2019 4:32 am CLINICAL HISTORY: 28 years Female left sided abdominal pain COMPARISON: None TECHNIQUE: Images were obtained in axial, sagittal, and coronal planes. Intravenous contrast was adm inistered. This exam was performed according to our departmental dose-optimization program which includes use of Automated Exposure Control, adjustment of the mA and/or kV according to patient size and/or use of i terative reconstruction technique FINDINGS: No abnormality involving the liver, spleen, pancreas, or adrenal glands bilaterally. Contr acted gallbladder. Appendix within normal limits. No bowel obstruction, perforation, or inflammation. Moderate constipat ion. 2.6 cm left ovarian cyst. No obstructing renal calcifications bilaterally. No hydronephrosis bilaterally. Tiny right renal cyst . Unremarkable bladder. No abnormality abdominal aorta or portal vein. No adenopathy or abnormal fluid collections seen. Atelectatic change right lower lobe. No acute osseous abnormality. IMPRESSION: Contracted gallbladder. 2.6 cm left ovarian cyst. Otherwise unremarkable study. Electronically signed by: Lorena Strickland MD 04/05/2019 12:56 AM CDT Due to temporary technical issues with the PACS/Fluency reporting system, reports are being signed by the in house radiologist as a courtesy to ensure prompt reporting. The interpreting radiologist is f ully responsible for the content of the report.
== END 2019-04-05 02:06 | disposition home or self-care (01) ==
LOC: ER 22:44
DX: N39.0 Urinary tract infection, site not specified (principal); N83.202 Unspecified ovarian cyst, left side; J45.909 Unspecified asthma, uncomplicated; I10 Essential (primary) hypertension; R10.2 Pelvic and perineal pain
CPT/HCPCS: 36415; 74177; 80048; 80076; 83690; 85025; 96374; 96375; 99284; J2405; J3010; Q9967

== ENCOUNTER 2019-04-26 13:52 | Emergency (ER) | payer SELFPAY ==
[2019-04-26] MEDS ORDERED: ONDANSETRON 4 MG/2 ML VIAL ONE (14:26)
[2019-04-26] MEDS ORDERED: NA CHLORIDE 0.9% 1,000 ML ONE (14:26)
[2019-04-26 14:31] LABS: Absolute Lymphocytes (CBC) 3.6 K/uL (0.7-4.9); Basophils % 0.4 % (0-1.3); Eosinophils % 2.2 % (0-4.4); Hematocrit 40.3 % (36.0-45.0); Lymphocytes % 45.9 % (15.3-44.8); MPV 9.8 fL (7.6-11.3); Monocytes % 7.7 % (3.3-12.3); RBC Red Blood Cell Count 4.51 M/uL (3.86-4.86)
[2019-04-26 14:48] LABS: Potassium 4.1 mmol/L (3.5-5.1)
[2019-04-26 15:08] LABS: Barbiturates NEGATIVE (NEGATIVE); Benzodiazepines NEGATIVE (NEGATIVE); Cocaine NEGATIVE (NEGATIVE); METHAMPHETAM NEGATIVE (NEGATIVE); Methadone NEGATIVE (NEGATIVE); Opiates NEGATIVE (NEGATIVE); Phencyclidine NEGATIVE (NEGATIVE); THC Cannibis NEGATIVE (NEGATIVE)
--- NOTE | 2019-04-26 15:12 | RAD REPORT ---
EXAM DESCRIPTION: CT - Head C Spine Mpr Wo Con - 04/26/2019 2:54 pm CLINICAL HISTORY: Seizure. Head and neck injury status post fall. Head and neck pain COMPARISON: February 2018 TECHNIQUE: Computed axial tomography of the head and cervical spine was obtained. Sagittal and coronal reconstruction was performed. All CT scans are performed using dose optimization technique as appropriate and may include automated exposure control or mA/KV adjustment according to patient size. FINDINGS: An intracranial bleed is not seen. The ventricles are normal in caliber. An extra-axial fl uid collection is not noted.Fluid within the visualized sinuses and mastoids is not seen A cervical fracture is not visualized. No dislocation is noted. 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 A cervical fracture is not visualized. If the patient continues to have symptoms to suggest intracra nial /spinal cord pathology then MRI would be recommended
[2019-04-26] MEDS ORDERED: PHENYTOIN Inj 1,000 MG in NA CHLORIDE 0.9% 100 ML IV STA (15:42)
[2019-04-26 15:56] LABS: Urine Bacteria NONE SEEN /HPF (<20); Urine Culture Reflex Order NOT NEEDED; Urine RBC NONE SEEN /HPF (NONE SEEN)
[2019-04-26] MEDS ORDERED: MEPERIDINE HCL 25 MG/0.5 ML ONE (15:56)
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
[2019-04-26 17:26] LABS: Urine Blood TRACE (NEG); Urine Glucose NEGATIVE (NEG); Urine Protein NEGATIVE (NEG); Urine pH 7.5 (5.0-7.0)
--- NOTE | 2019-04-26 18:41 | EKG ---
Test Date: 2019-04-26 Test Time: 15:04:22 Fit Model: PATRICIA MEASUREMENT RESULTS: Intervals: Rate: 84 TN: 160 QRSD: 78 QT: 380 QTc: 449 [place]: P: 51 TN: 160 QRS: 68 T: 36 INTERPRETIVE STATEMENTS: Normal sinus rhythm Normal ECG Compared to ECG 03/05/2019 17:49:30 no significant change from previous ECG Electronically Signed On 04-26-19 18:40:55 CDT by Alfonso Mcrae
== END 2019-04-26 16:58 | disposition home or self-care (01) ==
LOC: ER 13:52
DX: G40.909 Epilepsy, unspecified, not intractable, without status epilepticus (principal); F41.9 Anxiety disorder, unspecified; J45.909 Unspecified asthma, uncomplicated; I10 Essential (primary) hypertension; Z88.6 Allergy status to analgesic agent
CPT/HCPCS: 36415; 51702; 70450; 72125; 80048; 80307; 81003; 81015; 81025; 82962; 85025; 93005; 96365; 96375; 99285; J1165; J2175; J2405; J7030

== ENCOUNTER 2019-05-14 20:23 | Inpatient (IN) | payer SELFPAY ==
[2019-05-14] MEDS ORDERED: NA CHLORIDE 0.9% 1,000 ML ONE (21:14)
[2019-05-14] MEDS ORDERED: NA CHLORIDE 0.9% 100 ML IV ONE (21:28)
[2019-05-14] MEDS ORDERED: LEVETIRACETAM 500 MG/5 ML VIAL IV ONE (21:28)
[2019-05-14 21:44] LABS: Barbiturates NEGATIVE (NEGATIVE); Benzodiazepines NEGATIVE (NEGATIVE); Cocaine NEGATIVE (NEGATIVE); METHAMPHETAM NEGATIVE (NEGATIVE); Methadone NEGATIVE (NEGATIVE); Opiates NEGATIVE (NEGATIVE); Phencyclidine NEGATIVE (NEGATIVE); THC Cannibis NEGATIVE (NEGATIVE)
[2019-05-14 21:46] LABS: Urine Bacteria 20-50 /HPF (<20); Urine Culture Reflex Order NOT NEEDED; Urine RBC <5 /HPF (NONE SEEN)
[2019-05-14 21:49] LABS: Absolute Lymphocytes (CBC) 4.5 K/uL (0.7-4.9); Basophils % 0.4 % (0-1.3); Hematocrit 37.6 % (36.0-45.0); MPV 9.3 fL (7.6-11.3); RBC Red Blood Cell Count 4.17 M/uL (3.86-4.86)
[2019-05-14 22:08] LABS: BUN Blood Urea Nitrogen 13 mg/dL (7-18); Bicarbonate 24 mmol/L (21-32); Glucose Level 103 mg/dL (74-106); Sodium Level 143 mmol/L (136-145)
[2019-05-14 22:12] LABS: Phenytoin (Dilantin) Level < 0.4 ug/mL (10.0-20.0)
[2019-05-14] MEDS ORDERED: HYDROCODONE/APAP 5/325 MG TAB ONE (22:16)
[2019-05-14] MEDS ORDERED: ACETAMINOPHEN 500 MG TAB PO PRN (22:43)
[2019-05-14] MEDS ORDERED: levETIRAcetam 500 MG in NA CHLORIDE 0.9% 100 ML IV SCH (22:45)
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
[2019-05-14] MEDS ORDERED: CEFTRIAXONE 1 GM/NS 50 ML 1 GM/50 ML BAG IV ONE (22:50)
[2019-05-15] MEDS: NA CHLORIDE 0.9% 1,000 ML IV SCH ×3 (01:08→13:05)
[2019-05-15] MEDS: NICOTINE 21 MG/PAT TD SCH ×2 (01:09→08:19)
[2019-05-15] MEDS ORDERED: CEFTRIAXONE/SWI 1gm 1 GM/10 ML SYR ONE (01:15)
[2019-05-15] MEDS: MORPHINE 2 MG/ML SYR IV PRN ×3 (02:20→18:28)
[2019-05-15] MEDS: HYDROCODONE/APAP 10/325 TAB PO PRN ×2 (03:35→20:28)
[2019-05-15] MEDS ORDERED: LORazepam 2 MG/ML VIAL IV ONE (04:27)
[2019-05-15] MEDS: ONDANSETRON 4 MG/2 ML VIAL IV PRN ×2 (05:23→09:09)
[2019-05-15 06:01] LABS: Protime INR 1.05
[2019-05-15 06:17] LABS: Absolute Lymphocytes (CBC) 5.2 K/uL (0.7-4.9); Basophils % 0.3 % (0-1.3); Hematocrit 37.2 % (36.0-45.0); Lymphocytes % 52.8 % (15.3-44.8); MPV 9.5 fL (7.6-11.3); RBC Red Blood Cell Count 4.12 M/uL (3.86-4.86)
[2019-05-15 06:35] LABS: ALT/SGPT 21 U/L (12-78); AST/SGOT 12 U/L (15-37); Albumin 3.2 g/dL (3.4-5.0); Alkaline Phosphatase 77 U/L (45-117); BUN Blood Urea Nitrogen 11 mg/dL (7-18); Bicarbonate 25 mmol/L (21-32); Bilirubin Total 0.2 mg/dL (0.2-1.0); Glucose Level 98 mg/dL (74-106); Potassium 3.9 mmol/L (3.5-5.1); Protein, Total 6.7 g/dL (6.4-8.2); Sodium Level 143 mmol/L (136-145)
[2019-05-15] MEDS: levETIRAcetam 500 MG in NA CHLORIDE 0.9% 100 ML IV SCH ×2 (08:18→20:28)
[2019-05-15 08:29] LABS: Blood Morphology Comment NOT SEEN (NOT SEEN); Platelet Estimate ADEQ
--- NOTE | 2019-05-15 08:56 | P.HP ---
Certification for Inpatient Patient admitted to: Observation With expected LOS: <2 Midnights Patient will require the following post-hospital care: None Practitioner: I am a practitioner with admitting privileges, knowledge of patient current condition, hospital course, and medical plan of care. Services: Services provided to patient in accordance with Admission requirements found in Title 42 Section 412.3 of the Code of Federal Regulations Patient History Date of Service: 05/14/19 Reason for admission: Seizures versus pseudoseizures History of Present Illness: Patient is a 28-year-old female came to the hospital after having multiple seizures. She has not been taking her medications as prescribed. She did get her refill a week ago from the emergency room. However, she admits that she is not taking them regularly. On the floor she also had multiple seizures however she was able to follow commands through them as well. Will need to get her worked up with an EEG as well as an MRI of the brain. Neurology consultation as well. Patient be admitted to the hospital for further evaluation. Allergies ketorolac Allergy (Verified 05/15/19 00:41) Itching/Hives/Rash Home Medications: Metoprolol Succinate [Toprol Xl] 50 mg PO BID 05/15/19 Phenytoin Sodium Extended [Dilantin] 100 mg PO Q8HP 05/15/19 - Past Medical/Surgical History Has patient received pneumonia vaccine in the past: No Diabetic: No -: Panic Attacks -: Anxiety -: Seizures -: Asthma -: HTN -: herniated bulging disc -: pinched nerve both neck and buttocks -: Migraines -: L ear reconstruction - Family History Father Medical History: Hypertension - Social History Smoking Status: Current every day smoker Alcohol use: No CD- Drugs: No Caffeine use: Yes Place of Residence: Home Review of Systems 10-point ROS is otherwise unremarkable Physical Examination - Vital Signs Temperature: 98 F Blood Pressure: 119/60 Pulse: 89 Respirations: 20 Pulse Ox (%): 100 - Physical Exam General: Alert, In no apparent distress, Oriented x3 HEENT: Atraumatic, PERRLA, Mucous membr. moist/pink, EOMI, Sclerae nonicteric Neck: Supple, 2+ carotid pulse no bruit, No LAD, Without JVD or thyroid abnormality Respiratory: Clear to auscultation bilaterally, Normal air movement Cardiovascular: Regular rate/rhythm, Normal S1 S2, No murmurs Gastrointestinal: Normal bowel sounds, Soft and benign, Non-distended, No tenderness Musculoskeletal: No clubbing, No swelling, No tenderness Integumentary: No rashes Neurological: Normal gait, Normal speech, Normal strength at 5/5 x4 extr, Normal tone, Sensation intact, Cranial nerves 3-12 intact, Normal affect Lymphatics: No axilla or inguinal lymphadenopathy - Studies Laboratory Data (last 24 hrs) 05/14/19 21:40: WBC 9.2, Hgb 12.3, Hct 37.6, Plt Count 220 05/14/19 21:40: Sodium 143, Potassium 4.0, BUN 13, Creatinine 0.90, Glucose 103 Assessment & Plan - Problems (Diagnosis) (1) Seizures Current Visit: Yes Status: Acute (2) Non-compliant behavior Current Visit: Yes Status: Acute - Plan Plan: 1. Continue anti epileptics 2. Neurology consultation 3. MRI of the brain 4. EEG 5. GI and DVT prophylaxis Discharge Plan: Home Plan to discharge in: Greater than 2 days - Advance Directives Does patient have a Living Will: No Does patient have a Durable POA for Healthcare: No - Code Status/Comfort Care Code Status Assessed: Yes Code Status: Full Code Critical Care: No Time Spent Managing PTS Care (In Minutes): 50
--- NOTE | 2019-05-15 12:46 | RAD REPORT ---
EXAM DESCRIPTION: MRI - Brain Wo Cont - 05/15/2019 12:32 pm CLINICAL HISTORY: sz COMPARISON: Head Brain Wo Cont dated 05/14/2019 TECHNIQUE: Multi-sequence, multiplanar MR imaging of the brain was performed without contrast. FINDINGS: No intracranial hemorrhage, hydrocephalus or extra-axial fluid collections. No edema or sh ift of midline structures. No findings to suspect brain mass. DWI is negative for acute CVA. Midline structures are normally formed. Coronal T1 and T2 weighted sequences show symmetric temporal lobes and hippocampal structures. Mastoid air cells and paranasal sinuses are clear. IMPRESSION: No acute or concerning intracranial abnormalities.
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
[2019-05-15] MEDS ORDERED: DIPHENHYDRAMINE 25 MG TAB/CAP PO ONE (12:51)
[2019-05-15] MEDS: PROMETHAZINE 25 MG/ML VIAL IV PRN ×2 (13:05→18:28)
[2019-05-15] MEDS ORDERED: CEFTRIAXONE/SWI 1gm 1 GM/10 ML SYR IV SCH (21:00)
[2019-05-16] MEDS: PROMETHAZINE 25 MG/ML VIAL IV PRN ×2 (00:02→08:15)
[2019-05-16] MEDS: MORPHINE 2 MG/ML SYR IV PRN (00:03)
[2019-05-16] MEDS: NA CHLORIDE 0.9% 1,000 ML IV SCH ×2 (00:14→04:30)
[2019-05-16] MEDS ORDERED: DIPHENHYDRAMINE 50 MG/ML VIAL IV ONE (01:30)
[2019-05-16] MEDS: HYDROCODONE/APAP 10/325 TAB PO PRN (08:03)
[2019-05-16] MEDS: NICOTINE 21 MG/PAT TD SCH (08:03)
[2019-05-16] MEDS: levETIRAcetam 500 MG in NA CHLORIDE 0.9% 100 ML IV SCH (08:04)
[2019-05-16] MEDS: ONDANSETRON 4 MG/2 ML VIAL IV PRN (11:46)
[2019-05-16] MEDS ORDERED: levETIRAcetam 500 MG TAB PO ONE (14:05)
--- NOTE | 2019-05-21 14:51 | EEG ---
CHART: [id number] TEST ID#: [id number] DATE OF STUDY: 05/15/2019 THE EEG WAS RECORDED PORTABLE IN THE PATIENTS ROOM ON A 17 CHANNEL MACHINE. ELECTRODES WERE APPLIED IN THE USUAL MANNER USING THE INTERNATIONAL 10-20 SYSTEM. THE WAKING BACKGROUND RHYTHM IN THIS RECORD CONSISTS OF WELL DEVELOPED AND WELL ORGANIZED WAVES OF 10 HZ., MAXIMAL IN THE POSTERIOR HEAD REGIONS WHICH ATTENUATE NORMALLY WITH EYE OPENING. LOW-VOLTAGE 18-22 HZ ACTIVITY IS EXPRESSED IN THE FRONTAL REGIONS. THERE ARE NO FOCAL OR LATERALIZING FEATURES. NO EPILEPTIFORM ACTIVITY APPEARS. SLEEP OCCURRED NATURALLY. IN ADDITION NORMAL SLEEP PATTERNS. HYPERVENTILATION WAS NOT PERFORMED. PHOTIC STIMULATION PRODUCED FAIR DRIVING BILATERALLY. IMPRESSION: NORMAL EEG FOR THE AGE OF THE PATIENT IN [place], DROWSINESS AND SLEEP.
== END 2019-05-16 14:30 | disposition home or self-care (01) | DRG 101 ==
LOC: ER 20:23 → 4TH 22:43 → OBSVTOIN 05-16 07:35
PROVIDERS: ADMIT Hospitalist; ATTEND Family Medicine
DX: R56.9 Unspecified convulsions (principal); Z91.19 Patient's noncompliance with other medical treatment and regimen; F17.210 Nicotine dependence, cigarettes, uncomplicated; I10 Essential (primary) hypertension; F41.9 Anxiety disorder, unspecified
CPT/HCPCS: 36415; 70450; 70551; 80048; 80053; 80185; 80307; 81015; 85025; 85610; 85730; 87086; 87088; 95819; 96365; 99285; G0378; J0696; J1953; J2270; J2405; J2550; J7030

== ENCOUNTER 2019-06-11 12:56 | Emergency (ER) | payer SELFPAY ==
[2019-06-11] MEDS ORDERED: LORazepam 2 MG/ML VIAL ONE (12:57)
--- OUTSIDE RECORDS SUMMARY | 2019-06-11 13:10 | XMS REPORT ---
:1990 [facility] Address [address] [place] [address] [address] [place] [address] Care Team Providers Name Role Phone Unavailable Unavailable Unavailable Problems This patient has no known problems. Allergies, Adverse Reactions, Alerts This patient has no known allergies or adverse reactions. Medications This patient has no known medications.
[2019-06-11 13:39] LABS: Basophils % 0.4 % (0-1.3); Hematocrit 32.7 % (36.0-45.0); Lymphocytes % 46.8 % (15.3-44.8); MPV 9.3 fL (7.6-11.3); RBC Red Blood Cell Count 3.69 M/uL (3.86-4.86)
[2019-06-11 13:45] LABS: Protime INR 1.06
[2019-06-11 14:00] LABS: ALT/SGPT 21 U/L (12-78); AST/SGOT 13 U/L (15-37); Albumin 3.1 g/dL (3.4-5.0); Alkaline Phosphatase 65 U/L (45-117); BUN Blood Urea Nitrogen 15 mg/dL (7-18); Bicarbonate 24 mmol/L (21-32); Bilirubin Direct 0.1 mg/dL (0-0.2); Bilirubin Total 0.5 mg/dL (0.2-1.0); Glucose Level 74 mg/dL (74-106); Potassium 3.8 mmol/L (3.5-5.1); Protein, Total 6.3 g/dL (6.4-8.2); Sodium Level 143 mmol/L (136-145)
[2019-06-11 14:08] LABS: Blood Morphology Comment NOT SEEN (NOT SEEN); Platelet Estimate ADEQ
[2019-06-11] MEDS ORDERED: ACETAMINOPHEN 325 MG TABLET ONE (14:18)
[2019-06-11 14:50] LABS: Barbiturates NEGATIVE (NEGATIVE); Benzodiazepines POSITIVE (NEGATIVE); Cocaine NEGATIVE (NEGATIVE); METHAMPHETAM NEGATIVE (NEGATIVE); Methadone NEGATIVE (NEGATIVE); Opiates NEGATIVE (NEGATIVE); Phencyclidine NEGATIVE (NEGATIVE); THC Cannibis NEGATIVE (NEGATIVE)
[2019-06-11] MEDS ORDERED: levETIRAcetam 1,000 MG in NA CHLORIDE 0.9% 100 ML IV ONE (15:15)
[2019-06-11 15:17] LABS: Urine Blood NEGATIVE (NEG); Urine Glucose NEGATIVE (NEG); Urine Protein NEGATIVE (NEG)
[2019-06-11] MEDS ORDERED: DIPHENHYDRAMINE 50 MG/ML VIAL ONE (16:00)
--- NOTE | 2019-06-11 16:06 | EKG ---
Test Date: 2019-06-11 Test Time: 13:45:38 Child Advocate: DARRYL MEASUREMENT RESULTS: Intervals: Rate: 105 SD: 184 QRSD: 80 QT: 354 QTc: 467 [place]: P: 44 SD: 184 QRS: 67 T: 11 INTERPRETIVE STATEMENTS: Sinus tachycardia Otherwise normal ECG Compared to ECG 04/26/2019 15:04:22 Sinus rhythm no longer present Electronically Signed On 06-11-19 16:05:57 CDT by Alfonso Mcrae
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
== END 2019-06-11 17:34 | disposition home or self-care (01) ==
LOC: ER 12:56
DX: N39.0 Urinary tract infection, site not specified (principal); I10 Essential (primary) hypertension; J45.909 Unspecified asthma, uncomplicated; Z88.8 Allergy status to other drugs, medicaments and biological substances
CPT/HCPCS: 36415; 80048; 80076; 80307; 80320; 80329; 81003; 81025; 85025; 85610; 85730; 93005; J1953

== ENCOUNTER 2019-06-12 15:15 | Emergency (ER) | payer SELFPAY ==
--- OUTSIDE RECORDS SUMMARY | 2019-06-12 15:17 | XMS REPORT ---
:1990 [facility] Address [address] [place] [address] [address] [place] [address] Care Team Providers Name Role Phone Unavailable Unavailable Unavailable Problems This patient has no known problems. Allergies, Adverse Reactions, Alerts This patient has no known allergies or adverse reactions. Medications This patient has no known medications.
[2019-06-12] MEDS ORDERED: levETIRAcetam 1,000 MG in NA CHLORIDE 0.9% 100 ML IV ONE (15:45)
[2019-06-12 15:57] LABS: Absolute Lymphocytes (CBC) 3.4 K/uL (0.7-4.9); Basophils % 0.5 % (0-1.3); Hematocrit 37.3 % (36.0-45.0); Lymphocytes % 40.6 % (15.3-44.8); MPV 9.6 fL (7.6-11.3)
[2019-06-12 16:05] LABS: Potassium 3.7 mmol/L (3.5-5.1)
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
[2019-06-12] MEDS ORDERED: DIPHENHYDRAMINE 50 MG/ML VIAL ONE (17:45)
[2019-06-12] MEDS ORDERED: METOCLOPRAMIDE 10 MG/2mL INJ ONE (17:45)
--- NOTE | 2019-06-13 11:47 | EKG ---
Test Date: 2019-06-12 Test Time: 15:19:30 Testing Projects Administrator: LENNY MEASUREMENT RESULTS: Intervals: Rate: 99 NH: 154 QRSD: 82 QT: 342 QTc: 438 [place]: P: 42 NH: 154 QRS: 55 T: 20 INTERPRETIVE STATEMENTS: Normal sinus rhythm Cannot rule out Anterior infarct, age undetermined Abnormal ECG Compared to ECG 06/11/2019 13:45:38 Myocardial infarct finding now present Sinus tachycardia no longer present Electronically Signed On 06-13-19 11:45:12 CDT by Solo Marie
== END 2019-06-12 18:08 | disposition home or self-care (01) ==
LOC: ER 15:15
DX: R56.9 Unspecified convulsions (principal); G40.909 Epilepsy, unspecified, not intractable, without status epilepticus; I10 Essential (primary) hypertension; F41.9 Anxiety disorder, unspecified; Z88.8 Allergy status to other drugs, medicaments and biological substances
CPT/HCPCS: 36415; 80048; 80320; 82962; 85025; 93005; 96365; 96366; 96375; 99285; J1953; J2765

== ENCOUNTER 2019-06-20 15:15 | Emergency (ER) | payer SELFPAY ==
--- OUTSIDE RECORDS SUMMARY | 2019-06-20 15:17 | XMS REPORT ---
:1990 [facility] Address [address] [place] [address] Care Team Providers Name Role Phone Unavailable Unavailable Unavailable Problems This patient has no known problems. Allergies, Adverse Reactions, Alerts This patient has no known allergies or adverse reactions. Medications This patient has no known medications.
[2019-06-20] MEDS ORDERED: IBUPROFEN 400 MG TAB ONE (16:48)
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
[2019-06-20 17:21] LABS: Urine Blood NEGATIVE (NEG); Urine Glucose NEGATIVE (NEG); Urine Protein NEGATIVE (NEG)
== END 2019-06-20 16:59 | disposition home or self-care (01) ==
LOC: ER 15:15
DX: J02.9 Acute pharyngitis, unspecified (principal); Z88.8 Allergy status to other drugs, medicaments and biological substances
CPT/HCPCS: 81003; 81025; 87070; 87081; 87804; 99283

== ENCOUNTER 2019-08-04 16:38 | Emergency (ER) | payer SELFPAY ==
[2019-08-04 17:11] LABS: Absolute Lymphocytes (CBC) 4.1 K/uL (0.7-4.9); Basophils % 0.4 % (0-1.3); Hematocrit 37.2 % (36.0-45.0); Lymphocytes % 43.6 % (15.3-44.8); MPV 9.7 fL (7.6-11.3); RBC Red Blood Cell Count 4.14 M/uL (3.86-4.86)
[2019-08-04] MEDS ORDERED: NA CHLORIDE 0.9% 1,000 ML ONE (17:17)
[2019-08-04 18:05] LABS: BUN Blood Urea Nitrogen 15 mg/dL (7-18); Bicarbonate 26 mmol/L (21-32); Glucose Level 81 mg/dL (74-106); Potassium 3.9 mmol/L (3.5-5.1); Sodium Level 140 mmol/L (136-145)
[2019-08-04 18:07] LABS: Phenytoin (Dilantin) Level < 0.4 ug/mL (10.0-20.0)
[2019-08-04] MEDS ORDERED: PHENYTOIN ER 100 MG CAP PO ONE (18:13)
[2019-08-04] MEDS ORDERED: levETIRAcetam 500 MG TAB ONE (18:14)
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
[2019-08-04] MEDS ORDERED: ACETAMINOPHEN 500 MG TAB ONE (18:19)
[2019-08-04 18:20] LABS: Blood Morphology Comment NOT SEEN (NOT SEEN); Platelet Estimate ADEQ
[2019-08-04 18:49] VITALS: O2SAT 100
[2019-08-04 18:51] VITALS: TEMP 98.2
[2019-08-04 18:53] VITALS: BP 121/90
== END 2019-08-04 18:43 | disposition home or self-care (01) ==
LOC: ER 16:38
DX: G40.509 Epileptic seizures related to external causes, not intractable, without status epilepticus (principal); I10 Essential (primary) hypertension; F41.9 Anxiety disorder, unspecified; J45.909 Unspecified asthma, uncomplicated
CPT/HCPCS: 36415; 80048; 80185; 85025; 96360; 99285; J7030

== ENCOUNTER 2019-10-12 00:43 | Emergency (ER) | payer OTHER ==
--- OUTSIDE RECORDS SUMMARY | 2019-10-12 00:48 | XMS REPORT ---
:1990 [facility] Address [address] [place] [address] Care Team Providers Name Role Phone Unavailable Unavailable Unavailable Problems This patient has no known problems. Allergies, Adverse Reactions, Alerts This patient has no known allergies or adverse reactions. Medications This patient has no known medications.
[2019-10-12] MEDS ORDERED: FENTANYL CITR 100 MCG/2 ML ONE (00:50)
[2019-10-12] MEDS ORDERED: ONDANSETRON 4 MG/2 ML VIAL ONE (00:51)
[2019-10-12] MEDS ORDERED: KETAMINE HCL 500 MG/5 ML VIAL ONE (01:02)
[2019-10-12 01:45] LABS: Basophils % 0.4 % (0-1.3); Hematocrit 35.8 % (36.0-45.0); Lymphocytes % 47.4 % (15.3-44.8); MPV 9.7 fL (7.6-11.3); RBC Red Blood Cell Count 4.05 M/uL (3.86-4.86)
[2019-10-12 02:11] LABS: Potassium 3.2 mmol/L (3.5-5.1)
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
[2019-10-12] MEDS ORDERED: HYDROCODONE/APAP 5/325 MG TAB ONE (03:04)
--- NOTE | 2019-10-12 03:33 | RAD REPORT ---
EXAM DESCRIPTION: CT - Femur Right Wo Con - 10/12/2019 2:55 am CLINICAL HISTORY: pain Twisting injury, pain and swelling. COMPARISON: Femur Right dated 10/12/2019 FINDINGS: No acute fracture or dislocation seen. No aggressive bone lesion. No soft tissue mass or hematoma seen. No significant knee joint effusion. Several radiopaque nails are seen projecting on the topogram along the superficial posterior aspect o f the right thigh soft tissues. These appear to likely be external to the patient, perhaps within a p ocket. Suggest direct clinical inspection. IMPRESSION: No acute finding demonstrated. All CT scans are performed using dose optimization technique as appropriate and may include automated exposure control or mA/KV adjustment according to patient size.
[2019-10-12 04:03] VITALS: BP 119/79; TEMP 98.1; O2SAT 98
--- NOTE | 2019-10-12 09:12 | RAD REPORT ---
EXAM DESCRIPTION: RAD - Femur Right - 10/12/2019 1:26 am CLINICAL HISTORY: Fall, right femur pain COMPARISON: None. FINDINGS: No fracture, dislocation or periosteal reaction noted. No acute or suspicious bony finding . No adequate frog-leg view of the hip joint due to overlying soft tissues. On the AP projection ther e are 4 screws superimposed on the soft tissues and lateral margin of the femur. These are not surgic al hardware and do not appear on the frog-leg view. These are probably items in clothing or near the skin surface. IMPRESSION: Negative right femur from the lesser trochanter to the femoral condyles. Femoral head, neck and intertrochanteric region grossly normal but visible on only the AP projection. This four screws superimposed on the soft tissues on the upper leg AP view are believed to be externa l artifact.
== END 2019-10-12 03:26 | disposition home or self-care (01) ==
LOC: ER 00:43
DX: M79.651 Pain in right thigh (principal); X50.1XXA Overexertion from prolonged static or awkward postures, initial encounter; Y93.89 Activity, other specified; Y92.009 Unspecified place in unspecified non-institutional (private) residence as the place of occurrence of the external cause; I10 Essential (primary) hypertension; F41.9 Anxiety disorder, unspecified; G40.909 Epilepsy, unspecified, not intractable, without status epilepticus; F90.9 Attention-deficit hyperactivity disorder, unspecified type; Z88.8 Allergy status to other drugs, medicaments and biological substances
CPT/HCPCS: 85025; 80048; 36415; 73700; 73552; 96375; 96374; 99284; J3010; J2405

== ENCOUNTER 2021-06-18 06:59 | Emergency (ER) | payer OTHER ==
--- OUTSIDE RECORDS SUMMARY | 2021-06-18 07:03 | XMS REPORT | Continuity of Care Document ---
:1990 Author Organization [facility] t Address [address] [place] [address] Care Team Providers Name Role Phone Lab, Adc Fam Pob I Attending Clinician Unavailable Doctor Unassigned, Name Attending Clinician Unavailable Alisia Freeman MD Attending Clinician Julio C Lopez DO Attending Clinician Cricket STEINER Attending Clinician Problems This patient has no known problems. Allergies, Adverse Reactions, Alerts This patient has no known allergies or adverse reactions. Social History Smoking Status Start Date Stop Date Source Never Smoker [facility] Medications Ordered Filled Start Stop Current Ordering Indication Dosage Frequency Signature Comments Components Source Medication Medication Date Date Medication? Clinician (SIG) Name Name Blisovi Fe Blisovi Fe No Blisovi Fe [facility] 1.5/30 (28) 1.5/30 (28) 1.5/30 da 1.5 mg-30 1.5 mg-30 (28) 1.5 M edical mcg (21)/75 mcg (21)/75 mg-30 mcg Group mg (7) mg (7) (21)/75 mg tablet TAKE tablet TAKE (7) tablet 1 TABLET BY 1 TABLET BY TAKE 1 MOUTH EVERY MOUTH EVERY TABLET BY DAY DAY MOUTH EVERY DAY Symbicort Symbicort No Symbicort [facility] 160 mcg-4.5 160 mcg-4.5 160 d a mcg/actuati mcg/actuati mcg-4.5 Medical on HFA on HFA mcg/actuat Group aerosol aerosol ion HFA inhaler inhaler aerosol inhaler Vital Signs Vital Name Observation Time Observation Value Comments Source BMI (Body Mass 2020-04-13 00:00:00 36.5 kg/m2 [facility] Index) Group BP Systolic 2020-04-13 00:00:00 118 mm[Hg] [facility] Body Weight 2020-04-13 00:00:00 212.8 [lb_av] [facility] BP Diastolic 2020-04-13 00:00:00 83 mm[Hg] [facility] Height 2020-04-13 00:00:00 64 [in_i] [facility] Procedures This patient has no known procedures. Plan of Care Planned Activity Planned Date Details Comments Source Diagnostic Test 2020-04-13 [facility] w/ auto diff [facility] Pending 00:00:00 [code = CBC w/ Group auto diff] Diagnostic Test 2020-04-13 CMP, serum or [facility] Pending 00:00:00 plasma [code = Group CMP, serum or plasma] Diagnostic Test 2020-04-13 lipid panel, serum [facility] Pending 00:00:00 [code = lipid Group panel, serum] Diagnostic Test 2020-04-13 HBsAg (hepatitis B [facility] Pending 00:00:00 surface Ag), serum Group [code = HBsAg (hepatitis B surface Ag), serum] Diagnostic Test 2020-04-13 HIV (1+2) Ab [facility] dical Pending 00:00:00 screen, serum Group [code = HIV (1+2) Ab screen, serum] Diagnostic Test 2020-04-13 RPR (rapid plasma [facility] Pending 00:00:00 reagin), serum Group [code = RPR (rapid plasma reagin), serum] Diagnostic Test 2020-04-13 TSH + free T4, [facility] Pending 00:00:00 serum [code = TSH Group + free T4, serum] Diagnostic Test 2020-04-13 pap, LB + HPV [facility] Pending 00:00:00 [code = pap, LB + Group HPV] Diagnostic Test 2020-04-13 CT + NG + TV, DNA, [facility] Pending 00:00:00 urine/swab [code = Group CT + NG + TV, DNA, urine/swab] Encounters Start End Encounter Admission Attending Care Care Encounter Source Date/Time Date/Time Type Type Clinicians Facility Department ID 2020-02-22 Inpatient U [facility] MED [id number] F B 19:57:00 2021-06-02 2021-06-02 Laboratory Lab, [facility] [id number] 20:27:39 20:47:39 Only Fam Pob I Health [id number] [place] [id number] Professio [phone] nal [address] 2021-06-02 2021-06-02 Orders Doctor AMBREEN [id number] 00:00:00 00:00:00 Only Unassigned, DONY [id number] [place] [facility] [id number] 2021-06-02 2021-06-02 Telephone Lydia [facility] [id number] 00:00:00 00:00:00 Zelda Mariscal [id number] [place] [id number] Professio [id number] nal 231 Building 2021-01-18 2021-01-18 Patient John [facility] [id number] 00:00:00 00:00:00 Outreach [facility] [id number] [facility] [id number] PAVILLION [id number] 388 2020-04-13 2020-04-13 Maia [facility] [place] - [id number] Chi zuleta 00:00:00 00:00:00 Alex Cazares Medical Med[facility] brina STEINER: [address] [facility] [address], [place] [address] , Ph. [phone] 2020-01-23 2020-03-12 Telemedici Cricket [facility] [id number] 11:11:01 16:10:25 ne Visit Lissa Mariscal [id number] [place] [id number] Professio [phone] [address] 2020-02-23 2020-02-23 Outpatient SW MED [id number] [facility] 14:38:00 14:38:00 Results This patient has no known results.
[2021-06-18] MEDS ORDERED: HYDROCODONE/APAP 10/325 TAB ONE (09:12)
--- NOTE | 2021-06-18 09:21 | RAD REPORT ---
EXAM DESCRIPTION: CT - Head C Spine Mpr Wo Con - 06/18/2021 8:54 am CLINICAL HISTORY: Head and neck injury status post fall. Head and neck pain COMPARISON: 2019 TECHNIQUE: Computed axial tomography of the head and cervical spine was obtained. Sagittal and coronal reconstruction was performed. All CT scans are performed using dose optimization technique as appropriate and may include automated exposure control or mA/KV adjustment according to patient size. FINDINGS: An intracranial bleed is not seen. The ventricles are normal in caliber. An extra-axial fl uid collection is not noted.Fluid within the visualized sinuses and mastoids is not seen A cervical fracture is not visualized. No dislocation is noted. 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 A cervical fracture is not visualized. If the patient continues to have symptoms to suggest intracra nial /spinal cord pathology then MRI would be recommended
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
--- NOTE | 2021-06-18 10:03 | RAD REPORT ---
EXAM DESCRIPTION: Reji Single View06/18/2021 9:27 am CLINICAL HISTORY: Chest pain COMPARISON: 2018 FINDINGS: The lungs appear clear of acute infiltrate. The heart is normal size IMPRESSION: No acute abnormalities displayed
--- NOTE | 2021-06-18 10:04 | RAD REPORT ---
EXAM DESCRIPTION: RAD - Humerus Left - 06/18/2021 9:27 am CLINICAL HISTORY: Left arm pain status post fall FINDINGS: No fracture is seen
--- NOTE | 2021-06-18 10:04 | RAD REPORT ---
EXAM DESCRIPTION: RAD - Shoulder Left 2 View - 06/18/2021 9:27 am CLINICAL HISTORY: Left shoulder pain status post fall FINDINGS: No fracture or dislocation is seen.
--- NOTE | 2021-06-18 10:05 | RAD REPORT ---
EXAM DESCRIPTION: RAD - Elbow Left 3 View - 06/18/2021 9:27 am CLINICAL HISTORY: Left elbow pain status post trauma FINDINGS: No fracture or dislocation is seen.
--- NOTE | 2021-06-18 10:06 | RAD REPORT ---
EXAM DESCRIPTION: RAD - Forearm Left - 06/18/2021 9:27 am CLINICAL HISTORY: Left forearm pain status post injury FINDINGS: No fracture is seen
[2021-06-18 10:15] VITALS: BP 120/81; TEMP 97.3; O2SAT 100
== END 2021-06-18 10:04 | disposition home or self-care (01) ==
LOC: ER 06:59
DX: S09.90XA Unspecified injury of head, initial encounter (principal); M25.512 Pain in left shoulder; M79.622 Pain in left upper arm; W10.9XXA Fall (on) (from) unspecified stairs and steps, initial encounter; I10 Essential (primary) hypertension; Z88.8 Allergy status to other drugs, medicaments and biological substances
CPT/HCPCS: 70450; 71045; 72125; 99283

== ENCOUNTER 2021-06-29 09:32 | Emergency (ER) | payer OTHER ==
--- OUTSIDE RECORDS SUMMARY | 2021-06-29 09:35 | XMS REPORT | Continuity of Care Document ---
:1990 Author Organization [facility] t Address [address] [place] [address] Care Team Providers Name Role Phone Lab, Fam Pob I Attending Clinician Unavailable Doctor Unassigned, Name Attending Clinician Unavailable Alisia Freeman MD Attending Clinician Julio C Lopez DO Attending Clinician Cricket STEINER Attending Clinician Problems This patient has no known problems. Allergies, Adverse Reactions, Alerts This patient has no known allergies or adverse reactions. Social History Smoking Status Start Date Stop Date Source Never Smoker [facility] Medications Ordered Filled Start [...] (Body Mass 2020-04-13 00:00:00 36.5 kg/m2 [facility] director organizational [facility] Index) Group BP Systolic 2020-04-13 00:00:00 118 mm[Hg] [facility] Body Weight 2020-04-13 00:00:00 212.8 [lb_av] [facility] BP Diastolic 2020-04-13 00:00:00 83 mm[Hg] [facility] Height 2020-04-13 00:00:00 64 [in_i] [facility] Procedures This patient has no known procedures. Plan of Care Planned Activity Planned Date Details Comments Source Diagnostic Test 2020-04-13 [facility] Pending 00:00:00 [code = CBC w/ Group auto diff] Diagnostic Test 2020-04-13 CMP, serum or [facility] Pending 00:00:00 plasma [code = Group CMP, serum or plasma] Diagnostic Test 2020-04-13 lipid panel, serum [facility] director organizational [facility] Pending 00:00:00 [code = lipid Group panel, serum] Diagnostic Test 2020-04-13 HBsAg (hepatitis B [facility] director organizational [facility] Pending 00:00:00 surface Ag), serum Group [code = HBsAg (hepatitis B surface Ag), serum] Diagnostic Test 2020-04-13 HIV (1+2) Ab [facility] Pending 00:00:00 screen, serum Group [code = HIV (1+2) Ab screen, serum] Diagnostic Test 2020-04-13 RPR (rapid plasma [facility] Pending 00:00:00 reagin), serum Group [code = RPR (rapid plasma reagin), serum] Diagnostic Test 2020-04-13 TSH + free T4, [facility] Pending 00:00:00 serum [code = TSH Group + free T4, serum] Diagnostic Test 2020-04-13 pap, LB + HPV [facility] Pending 00:00:00 [code = pap, LB + Group HPV] Diagnostic Test 2020-04-13 CT + NG + TV, DNA, [facility] director organizational [facility] Pending 00:00:00 urine/swab [code = Group CT + NG + TV, DNA, urine/swab] Encounters Start End Encounter Admission Attending Care Care Encounter Source Date/Time Date/Time Type Type Clinicians Facility Department ID 2020-02-22 Inpatient U [facility] MED 0117 [facility] 19:57:00 2021-06-02 2021-06-02 Laboratory Lab, [facility] [id number] 20:27:39 20:47:39 Only Fam Pob I Health [id number] [place] [id number] Professio [phone] nal [address] One 2021-06-02 2021-06-02 Orders Doctor AMBREEN [id number] 00:00:00 00:00:00 Only Unassigned, DONY [id number] [place] [facility] [id number] 2021-06-02 2021-06-02 Telephone Lydia [facility] [id number] 00:00:00 00:00:00 Zelda Mariscal [id number] [place] [id number] Professio [phone] [facility] [address] Building 2021-01-18 2021-01-18 Patient John [facility] [id number] 00:00:00 00:00:00 Outreach [facility] [id number] [facility] [id number] [place] [id number] [facility] 2020-04-13 2020-04-13 Maia [facility] - [id number] Chi zuleta 00:00:00 00:00:00 Alex Cazares, Medical Medica brina STEINER: [address] [facility] [address], [place] [address] , Ph. [phone] 2020-01-23 2020-03-12 Telemedici Cricket [facility] [id number] 11:11:01 16:10:25 ne Visit Lissa Mariscal [id number] [place] [id number] Professio [phone] [address] 2020-02-23 2020-02-23 Outpatient [facility] MED [id number] [facility] 14:38:00 14:38:00 Results This patient has no known results.
[2021-06-29 10:05] LABS: Urine Blood Negative (Negative); Urine Glucose Negative (Negative); Urine Protein Negative (Negative); Urine pH 8.5 (5.0-7.0)
[2021-06-29 10:19] LABS: Basophils % 0.6 % (0-1.3); Lymphocytes % 43.7 % (15.3-44.8); MPV 9.2 fL (7.6-11.3); RBC Red Blood Cell Count 4.41 M/uL (3.86-4.86)
[2021-06-29 10:23] LABS: Protime INR 0.98
--- NOTE | 2021-06-29 10:46 | RAD REPORT ---
EXAM DESCRIPTION: CT - Chest For Pe Angio - 06/29/2021 10:16 am CLINICAL HISTORY: Cough;Dyspnea COMPARISON: No comparisons FINDINGS: Chest Wall: No suspicious thyroid nodules or pathologic lymphadenopathy. Lungs: No acute abnormality. Pleura: No significant effusions or pneumothorax. Mediastinum/kamaljit: Hilar adenopathy which is likely reactive. Anterior mediastinal low density structu re which is likely a cyst. Pulmonary arteries/Aorta: No filling defect identified. No aortic aneurysm. Heart: No significant pericardial effusion. Normal heart size. Upper abdomen: No acute abnormality. Bones: No acute abnormality. IMPRESSION: Negative for pulmonary embolism. No acute findings.
[2021-06-29 10:52] LABS: BUN Blood Urea Nitrogen 12 mg/dL (7-18); Bicarbonate 25 mmol/L (21-32); Glucose Level 87 mg/dL (74-106); NT PRO-BNP 27 pg/mL (<125); Potassium 3.8 mmol/L (3.5-5.1); Sodium Level 138 mmol/L (136-145); Troponin (Emerg Dept Use Only) < 0.02 ng/mL (0.0-0.045)
[2021-06-29] MEDS ORDERED: LEVALBUTEROL 1.25 MG/3 ML NEB ONE (10:56)
[2021-06-29] MEDS ORDERED: METHYLPREDNISOLONE 125 MG INJ ONE (10:56)
[2021-06-29] MEDS ORDERED: NA CHLORIDE 0.9% 500 ML ONE (10:56)
[2021-06-29] MEDS ORDERED: ONDANSETRON 4 MG/2 ML VIAL ONE (10:59)
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
--- NOTE | 2021-06-29 11:08 | RAD REPORT ---
EXAM DESCRIPTION: RAD - Chest Single View - 06/29/2021 10:51 am CLINICAL HISTORY: DYSPNEA COMPARISON: Chest Single View dated 06/18/2021; Chest Single View dated 12/24/2018; Chest Single View dated 12/14/2018; Chest Single View dated 09/25/2018 FINDINGS: Lines: None. Lungs: No evidence of edema or pneumonia. Pleural: No significant pleural effusions or pneumothorax. Cardiac: The heart size is within normal limits. Bones: No acute fractures. Other: IMPRESSION: No acute cardiopulmonary disease.
[2021-06-29 12:23] VITALS: TEMP 98
[2021-06-29 12:25] VITALS: O2SAT 100
[2021-06-29 12:27] VITALS: BP 125/60
== END 2021-06-29 12:18 | disposition home or self-care (01) ==
LOC: ER 09:32
DX: J45.31 Mild persistent asthma with (acute) exacerbation (principal); Z86.16 Personal history of COVID-19; Z88.8 Allergy status to other drugs, medicaments and biological substances
CPT/HCPCS: 93005; 85025; 80048; 36415; 85610; 82565; 85730; 81003; 84484; 83880; 71275; 71045; 96375; 96374; 99285; Q9967; J7040; J2930; J2405

== ENCOUNTER 2021-09-06 10:51 | Inpatient (IN) | payer OTHER ==
[2021-09-06] MEDS ORDERED: LORazepam 2 MG/ML VIAL ONE (11:29)
[2021-09-06] MEDS ORDERED: NA CHLORIDE 0.9% 1,000 ML ONE (11:29)
[2021-09-06 11:35] LABS: Absolute Lymphocytes (CBC) 3.2 K/uL (0.7-4.9); Basophils % 0.7 % (0-1.3); Hematocrit 39.3 % (36.0-45.0); Lymphocytes % 42.9 % (15.3-44.8); MPV 9.4 fL (7.6-11.3)
[2021-09-06 11:42] LABS: Urine Blood Negative (Negative); Urine Glucose Negative (Negative); Urine Protein Negative (Negative); Urine pH 8.5 (5.0-7.0)
[2021-09-06] MEDS ORDERED: levETIRAcetam 1,000 MG in NA CHLORIDE 0.9% 100 ML IV ONE (12:00)
[2021-09-06 12:39] LABS: Barbiturates NEGATIVE (NEGATIVE); Benzodiazepines POSITIVE (NEGATIVE); Cocaine NEGATIVE (NEGATIVE); METHAMPHETAM NEGATIVE (NEGATIVE); Methadone NEGATIVE (NEGATIVE); Opiates NEGATIVE (NEGATIVE); Phencyclidine NEGATIVE (NEGATIVE); THC Cannibis NEGATIVE (NEGATIVE)
--- NOTE | 2021-09-06 13:07 | RAD REPORT ---
EXAM DESCRIPTION: CT - Head Brain Wo Cont - 09/06/2021 12:45 pm CLINICAL HISTORY: SEIZURE COMPARISON: Head Brain Wo Cont dated 05/14/2019 TECHNIQUE: Axial 5 mm thick images of the head were obtained without IV contrast. All CT scans are performed using dose optimization technique as appropriate and may include automated exposure control or mA/KV adjustment according to patient size. FINDINGS: No intracranial hemorrhage, mass, edema or shift of mid-line structures. No acute infarcti on changes seen. No abnormal extra-axial fluid collections. Ventricles are normal. Mastoid air cells are clear. Right maxillary mucosal thickening is seen without air-fluid level. Anabelle ining visualized paranasal sinuses are clear of any significant finding. No acute bony findings. IMPRESSION: Negative non-contrast CT head examination for acute or significant intracranial finding. Right maxillary sinus mucosal thickening without air-fluid level.
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
--- NOTE | 2021-09-06 16:38 | P.HP ---
Certification for Inpatient Patient admitted to: Inpatient With expected LOS: >2 Midnights Practitioner: I am a practitioner with admitting privileges, knowledge of patient current condition, hospital course, and medical plan of care. Services: Services provided to patient in accordance with Admission requirements found in Title 42 Section 412.3 of the Code of Federal Regulations Patient History Date of Service: 09/06/21 Reason for admission: Seizures History of Present Illness: 31yo F, PMH: seizures, asthma. Brought in to ED by EMS due to multiple seizures. Patient reportedly had seizure at home and en route. She received versed. Noted to be post-ictal in ED. CT negative, labs ok. ED physician discussed with neurology who recommended admission, keppra load, and continue with BID dosing. Patient woke up and was oriented to self during my exam. Stated she takes 2 meds for her seizures, and has been compliant. Had a seizure "the other day". Couldn't be more specific for me. She is unsure of her Keppra dosing. She is unable to provide any further history, family is not at the bedside, nor are they able to be reached by phone at this time. Allergies ketorolac Allergy (Verified 05/15/19 00:41) Itching/Hives/Rash Home Medications: Metoprolol Succinate [Toprol Xl*] 50 mg PO BID 05/15/19 Levetiracetam [Keppra] 500 mg PO BID #60 tablet 05/16/19 - Past Medical/Surgical History Diabetic: No -: Panic Attacks -: Anxiety -: Seizures -: Asthma -: HTN -: herniated bulging disc -: pinched nerve both neck and buttocks -: Migraines -: L ear reconstruction - Family History Father -: Hypertension - Social History Smoking Status: Current every day smoker (1/2 ppd) Smoking therapy provided: Yes Alcohol use: No CD- Drugs: No Caffeine use: Yes Place of Residence: Home Review of Systems is unable to be obtained Physical Examination - Physical Exam General: Oriented x1, Confused HEENT: Atraumatic, Mucous membr. moist/pink, Sclerae nonicteric Neck: Supple Respiratory: Clear to auscultation bilaterally, Normal air movement Cardiovascular: No edema, Regular rate/rhythm Capillary refill: <2 Seconds Gastrointestinal: Soft and benign, Non-distended, Tenderness (mild epigastric/ periumbilical) Musculoskeletal: No erythema, No tenderness Integumentary: No rashes, No significant lesion Neurological: Normal strength at 5/5 x4 extr, Other (sleepy) - Studies Laboratory Data (last 24 hrs) 09/06/21 11:10: Sodium 141, Potassium 4.0, BUN 14, Creatinine 0.90, Glucose 82 09/06/21 11:10: WBC 7.60, Hgb 12.8, Hct 39.3, Plt Count 298 Assessment and Plan - Advance Directives Does patient have a Living Will: No Does patient have a Durable POA for Healthcare: No Physician Review Additional Text: Problem list Breakthrough seizure, with h/o seizures Anxiety Asthma Hypotension with h/o Hypertension unclear what patient's home anti-seizure medications are, unable to get a hold of family. I was on hold with pharmacy > 15 minutes neuro consulted in ED continue with 500mg keppra BID for now EMR reviewed showed patient was on Keppra and Dilantin in 2019. Will check Keppra and Dilantin levels Patient reported some abdominal discomfort over the last few days, denied fever/chills/nausea/vomiting/diarrhea. States it felt something like heartburn. On exam she has some very mild discomfort to palpation in periumbilical/epigastric region. unable to get further info, check CT abd/pelvis NPO for now, she is post-ictal, bedside swallow screen, and advance diet as tolerated Seizure precautions Patient was hypotensive in the ED, unclear how accurate readings are. will have patient in the ICU overnight for close monitoring VTE: SCDs Code: full Dispo: anticipate dc home in 2-3 days Time Spent Managing Pts Care (In Minutes): 60
[2021-09-06 18:14] VITALS: BMI 36.0
[2021-09-06] MEDS ORDERED: ONDANSETRON 4 MG/2 ML VIAL IV PRN (18:21)
[2021-09-06] MEDS: NA CHLORIDE 0.9% 1,000 ML IV SCH ×2 (18:21→21:47)
[2021-09-06] MEDS ORDERED: ALBUTEROL 2.5 MG/3 ML NEB SOL NEB PRN (18:21)
[2021-09-06 19:14] LABS: Thyroid Stimulating Hormone 1.04 uIU/mL (0.360-3.740)
[2021-09-06] MEDS ORDERED: HYDROCODONE/APAP 5/325 MG TAB PO ONE (19:44)
[2021-09-06] MEDS ORDERED: levETIRAcetam 500 MG TAB ONE (19:52)
[2021-09-06] MEDS ORDERED: HYDROCODONE/APAP 5/325 MG TAB ONE (19:52)
[2021-09-06] MEDS ORDERED: levETIRAcetam 500 MG TAB PO SCH (21:00)
[2021-09-07 03:57] LABS: Absolute Lymphocytes (CBC) 4.3 K/uL (0.7-4.9); Basophils % 0.4 % (0-1.3); Hematocrit 36.9 % (36.0-45.0); Lymphocytes % 51.7 % (15.3-44.8); MPV 9.2 fL (7.6-11.3)
[2021-09-07 04:06] LABS: ALT/SGPT 23 U/L (12-78); AST/SGOT 13 U/L (15-37); Albumin 2.9 g/dL (3.4-5.0); Alkaline Phosphatase 67 U/L (45-117); BUN Blood Urea Nitrogen 10 mg/dL (7-18); Bicarbonate 26 mmol/L (21-32); Bilirubin Total 0.4 mg/dL (0.2-1.0); Glucose Level 91 mg/dL (74-106); Magnesium 1.7 mg/dL (1.8-2.4); Potassium 3.8 mmol/L (3.5-5.1); Protein, Total 6.2 g/dL (6.4-8.2); Sodium Level 141 mmol/L (136-145)
[2021-09-07] MEDS ORDERED: NA CHLORIDE 0.9% 500 ML IV ONE (04:34)
[2021-09-07] MEDS: HYDROCODONE/APAP 5/325 MG TAB PO PRN ×2 (04:41→11:11)
[2021-09-07 05:29] LABS: Blood Morphology Comment NOT SEEN (NOT SEEN); Platelet Estimate ADEQ
[2021-09-07] MEDS ORDERED: INFLUENZA VACCINE (for 6+ mo) 0.5 ML DOSE IMVAC ONE (08:00)
[2021-09-07] MEDS ORDERED: MAGNESIUM SULFATE 1 gm IVPB 1 GM/100 ML BAG IV ONE (08:00)
[2021-09-07] MEDS ORDERED: POTASSIUM CL SA 10 MEQ TAB PO ONE (08:00)
[2021-09-07] MEDS ORDERED: ACETAMINOPHEN 500 MG TAB PO PRN (08:34)
[2021-09-07] MEDS: ONDANSETRON 4 MG/2 ML VIAL IV PRN ×3 (09:14→20:01)
[2021-09-07] MEDS: carBAMazepine 200 MG TAB PO SCH ×2 (09:14→20:00)
[2021-09-07] MEDS: levETIRAcetam 500 MG TAB PO SCH ×3 (09:14→20:00)
--- NOTE | 2021-09-07 09:40 | P.PN ---
Date of Service: 09/07/21 Subjective: Patient with seizure activity earlier this morning, lasting less than 1 minute, self resolving Patient postictal, oriented to self, slow to respond to questions reports headache, nausea, and abdominal discomfort ROS: 10 point ROS as noted above, otherwise negative Physical exam: General: Oriented x1, slow to respond HEENT: Atraumatic, Sclerae nonicteric Respiratory: Clear to auscultation bilaterally, Normal air movement Cardiovascular: No edema, Regular rate/rhythm Gastrointestinal: Soft, Non-distended, Tenderness (mild epigastric/ periumbilical) Musculoskeletal: No erythema, No tenderness Integumentary: No rashes, No significant lesion Neurological: Normal strength at 5/5 x4 extr Problem list Breakthrough seizure, with h/o seizures Anxiety Asthma Hypotension with h/o Hypertension Patient was more alert overnight, able to give a more accurate med history. She was restarted on her home medication dose of Keppra 500 3 times daily, Tegretol 600 mg twice daily Patient was doing well overnight, she reported headache slight abdominal discomfort. Had seizure activity early a.m. on 09/07. Self resolved in less than a minute neuro consulted Patient reported some abdominal discomfort over the last few days, denied fever/chills/nausea/vomiting/diarrhea. States it felt something like heartburn. On exam she has some very mild discomfort to palpation in periumbilical/epigastric region. ordered CT abd/pelvis w/ IV contrast, UA ordered as well NPO for now, she is post-ictal, bedside swallow screen, and advance diet as tolerated Seizure precautions Patient was hypotensive in the ED, improved overnight Code: full Dispo: anticipate dc home in 1-2 days Time Spent Managing Pts Care (In Minutes): 35
--- NOTE | 2021-09-07 11:59 | RAD REPORT ---
EXAM DESCRIPTION: CTAbdomen Pelvis W Contrast - 09/07/2021 10:13 am CLINICAL HISTORY: periumbilical pain/tenderness, nausea for few days COMPARISON: Abdomen Pelvis W Contrast dated 04/05/2019 TECHNIQUE: CT of the abdomen and pelvis was performed. All CT scans are performed using dose optimization technique as appropriate and may include automated exposure control or mA/KV adjustment according to patient size. FINDINGS: Lower chest: No acute abnormality. Liver: No acute abnormality or suspicious lesions. Biliary: No biliary ductal dilatation. Stomach: No significant focal abnormality. Duodenum: No significant focal abnormality. Pancreas: No significant abnormality. Spleen: No significant abnormality. Adrenal: No suspicious lesions. Kidney/ureter: No hydronephrosis. No renal calculi. Retroperitoneum: No retroperitoneal adenopathy. Vascular: No aneurysm. Bowel: No significant focal abnormality. Normal appendix. Peritoneum: Small fat containing umbilical hernia is unchanged. Bladder: Grossly unremarkable. Reproductive: No adnexal masses. Bones: No acute fracture. Other: n/a IMPRESSION: No acute intra-abdominal or pelvic finding. Normal appendix. Small fat containing umbili chloé hernia which has a similar appearance to 04/05/2019.
[2021-09-07] MEDS: NA CHLORIDE 0.9% 1,000 ML IV SCH (14:57)
[2021-09-08] MEDS: NA CHLORIDE 0.9% 1,000 ML IV SCH (00:27)
[2021-09-08] MEDS: DIPHENHYDRAMINE 25 MG TAB/CAP PO PRN ×2 (01:09→08:45)
[2021-09-08 04:39] LABS: Phosphorus 3.8 mg/dL (2.5-4.9)
[2021-09-08 04:41] LABS: Magnesium 1.9 mg/dL (1.8-2.4); Potassium 4.2 mmol/L (3.5-5.1)
[2021-09-08] MEDS ORDERED: DIPHENHYDRAMINE 50 MG/ML VIAL IV ONE (04:42)
--- NOTE | 2021-09-08 08:23 | P.DS ---
Admission Date: 09/06/21 Discharge Date: 09/08/21 Disposition: ROUTINE DISCHARGE Discharge Condition: GOOD Reason for Admission: Seizures Consultations: Neurology = Dr. Ramos Procedures: CT head (09/06): IMPRESSION: Negative non-contrast CT head examination for acute or significant intracranial finding. Right maxillary sinus mucosal thickening without air-fluid level. CT abdomen/pelvis (09/07) IMPRESSION: No acute intra-abdominal or pelvic finding. Normal appendix. Small fat containing umbilical hernia which has a similar appearance to 04/05/2019. Problem list Breakthrough seizure, with h/o seizures Anxiety Asthma h/o Hypertension Brief History of Present Illness: 31yo F, PMH: seizures, asthma. Brought in to ED by EMS due to multiple seizures. Patient reportedly had seizure at home and en route. She received versed. Noted to be post-ictal in ED. CT negative, labs ok. ED physician discussed with neurology who recommended admission, keppra load, and continue with BID dosing. Patient woke up and was oriented to self during my exam. Stated she takes 2 meds for her seizures, and has been compliant. Had a seizure "the other day". Couldn't be more specific for me. She is unsure of her Keppra dosing. She is unable to provide any further history, family is not at the bedside, nor are they able to be reached by phone at this time. Hospital Course: Patient was loaded with Keppra in the ER, continue on maintenance dose. Neurology was consulted, CT head was obtained and negative for any acute process. Patient continued to do well but did have seizure on 1110 AM. Self resolved. She was able to provide more detailed medication list. She was continued on her home doses of Keppra 500 mg 3 times daily and Tegretol 600 mg twice daily. She did not have any further seizure-like activity, and was otherwise feeling well. She was discharged home to continue this treatment. Refill prescriptions were sent for her to antiseizure medications. Patient was advised on the importance of compliance of these medications During her hospitalization she did report to some of that she was compliant and 2 other providers that she had missed some days of her medication. Keppra levels were ordered, however were send outs home had not resulted at time of discharge. Patient does report getting itchy skin from Tegretol. She discussed with neurology, she is to follow-up in the office which family will look into other medications that she may be able to switch to/titrate to. Patient's blood pressure was on the lownormal side. She has a history of hypertension and takes metoprolol. She was advised to hold her home metoprolol dose for next few days, to check her blood pressure at home and follow-up with her PCP. This was explained to the patient and her mother who expressed understanding and agreement with the plan. She did report some slight abdominal discomfort. Initially due to her inability to provide further history, a CT abdomen/pelvis was obtained, negative for any acute intra-abdominal process. It did note stable/known umbilical hernia. Iram robin's mother stated she has had this hernia since she was born. Abdominal discomfort improved without further intervention during her hospitalization. urine was negative for infection. Vital Signs/Physical Exam: Physical exam: General: Oriented x3, alert HEENT: Atraumatic, Sclerae nonicteric Respiratory: Clear to auscultation bilaterally, Normal air movement Cardiovascular: No edema, Regular rate/rhythm Gastrointestinal: Soft, Non-distended, nontender Musculoskeletal: No erythema, No tenderness Integumentary: No rashes, No significant lesion Neurological: Normal strength at 5/5 x4 extr Temp Pulse Resp BP Pulse Ox 96.5 F L 76 19 124/58 L 97 09/08/21 04:00 09/08/21 04:00 09/08/21 04:00 09/08/21 04:00 09/08/21 04:00 Laboratory Data at Discharge: WBC 8.30 K/uL (4.3-10.9) 09/07/21 03:19 Hgb 12.0 g/dL (12.0-15.0) 09/07/21 03:19 Hct 36.9 % (36.0-45.0) 09/07/21 03:19 Plt Count 255 K/uL (152-406) 09/07/21 03:19 Sodium 143 mmol/L (136-145) 09/08/21 03:13 Potassium 4.2 mmol/L (3.5-5.1) 09/08/21 03:13 BUN 10 mg/dL (7-18) 09/08/21 03:13 Creatinine 0.95 mg/dL (0.55-1.3) 09/08/21 03:13 Glucose 92 mg/dL (74-106) 09/08/21 03:13 Phosphorus 3.8 mg/dL (2.5-4.9) 09/08/21 03:13 Magnesium 1.9 mg/dL (1.8-2.4) 09/08/21 03:13 Total Bilirubin 0.4 mg/dL (0.2-1.0) 09/07/21 03:19 AST 13 U/L (15-37) L 09/07/21 03:19 ALT 23 U/L (12-78) 09/07/21 03:19 Alkaline Phosphatase 67 U/L (45-117) 09/07/21 03:19 Home Medications: Carbamazepine [Tegretol] 600 mg PO BID 30 Days #180 09/08/21 Levetiracetam [Keppra] 500 mg PO TID 30 Days #90 09/08/21 New Medications: Levetiracetam [Keppra] 500 mg PO TID 30 Days #90 Carbamazepine [Tegretol] 600 mg PO BID 30 Days #180 Physician Discharge Instructions: You were found to have breakthrough seizures. Likely due to missing some doses of your medications. You did not have any evidence of infection. CT head was negative for any new fin dings. Dr. Ramos was consulted and evaluated you as well. Recommend continuing current dose of medications and follow up in his office in ~[address] abdomen/pelvis did note a small umbilical hernia containing fat - similar to prior scans. This can cause some intermittent pain at times. Recommend diet/weight loss. If continues to cause pain, recommend follow up with your PCP to further discuss, possibly referral to general surgery for elective procedure. Your blood pressure was on the low side while hospitalized. Recommend stopping your metoprolol. Check your blood pressure at home and keep a diary. Review this with your PCP in the next week. You may need to restart this medication if your blood pressure becomes elevated again. Do not drive / operate heavy machinery until cleared by Neurology. Diet: Regular Activity: Ad albino Followup: Deepak Ramos MD [ASSOCIATE-ACTIVE - CAN ADMIT] - 1-2 Weeks (neurologist- call to schedule an appointment ) NONE,NONE [Primary Care Provider] - Time spent managing pt's care (in minutes): 45
[2021-09-08] MEDS: levETIRAcetam 500 MG TAB PO SCH (08:44)
[2021-09-08] MEDS: carBAMazepine 200 MG TAB PO SCH (08:44)
[2021-09-08] MEDS: ONDANSETRON 4 MG/2 ML VIAL IV PRN (08:52)
[2021-09-08 09:43] VITALS: BP 124/65; TEMP 98
[2021-09-08 10:45] VITALS: O2SAT 99
--- OUTSIDE RECORDS SUMMARY | 2021-09-10 18:06 | XMS REPORT | Continuity of Care Document ---
:1990 Author Organization [facility] t Address [address] [place] [address] Care Team Providers Name Role Phone Lydia STEINER, A Primary Care Physician Bakari STEINER Attending Clinician Unknown Attending Clinician Unavailable UNKNOWN Attending Clinician Unavailable Josefina Marshall Attending Clinician Doctor Unassigned, Name Attending Clinician Unavailable Lydia STEINER, Alisia Attending Clinician Lab, Fam Pob I Attending Clinician Unavailable Ebrahiuday PORTILLO Attending Clinician EBRAHIM Attending Clinician Unavailable Julio C Lopez DO Attending Clinician [place] FREEMAN Attending Clinician Unavailable Kristin STEINER Attending Clinician KRISTIN Attending Clinician Unavailable Payers Payer Name Policy Type Policy Number Effective Date Expiration Date [facility] [id number] 2019 [facility] MEDICAID 00:00:00 MEDICAID OF [place] [id number] 2019 00:00:00 Problems Condition Condition Condition Status Onset Resolution Last Treating Co mments Source Name Details Category Date Date Treatment Clinician Date Obesity Obesity Disease Active Univers (BMI (BMI 9-27 ity of 30-39.9) 30-39.9) 00:00: [place] [address] Medical Branch Irregular Irregular Disease Active Uni vers menstrual menstrual 3-12 ity of cycle cycle 00:00: [place] [address] Medical Branch Asthma, Asthma, Disease Active Univers unspecifie unspecifie 4-23 it y of d asthma d asthma 00:00: [place] severity, severity, 00 Medi chloé unspecifie unspecifie Br anch d whether d whether complicate complicate d, d, unspecifie unspecifie d whether d whether persistent persistent Anxiety Anxiety Disease Active Univers 6-24 ity of 00:00: [place] 00 [facility] Essential Essential Disease Active Uni vers hypertensi hypertensi 624 it y of on on 00:00: [place] 00 Medical Branch Other Other Disease Active Univers migraine migraine 04-21 ity of without without 00:00: [place] status status 00 Medical migrainosu migrainosu Br anch s, not s, not intractabl intractabl e e Uncomplica Uncomplica Disease Active U nivers aamir aamir 04-21 ity of asthma, asthma, 00:00: [place] unspecifie unspecifie 00 Me dical d asthma d asthma Branch severity severity Pain of Pain of Disease Active Univers upper upper 04-21 ity of abdomen abdomen 00:00: [place] 00 [facility] Allergies, Adverse Reactions, Alerts Allergy Allergy Status Severity Reaction(s) Onset Inactive Treating Comm ents Source Name Type Date Date Clinician [place] DRUG Active Hives Univers C INGREDI 6 ity of 00:00: [address] [place] [facility] Active Shortness of Can shay e Univers c ty to Breath 04-20 aspirin ity of adverse 00:00: and [place] reaction 00 ibuprofen Medic al s without Branch problem. Social History Social Habit Start Date Stop Date Quantity Comments Source History of 2012-04-20 Cigarette Smoker Universi ty of tobacco use 00:00:00 [facility] Exposure to Not sure University of SARS-CoV-2 [place] Medical (event) Branch Alcohol intake 2021-07-29 2021-07-29 Current University of 00:00:00 00:00:00 non-drinker of [facility] alcohol (finding) Branch Tobacco Comment 2019-01-07 2019-01-07 3-4 ciggs a day Univ ersity of 00:00:00 00:00:00 [facility] Tobacco use and 2017-04-20 2017-04-20 Never used Universit y of exposure 00:00:00 00:00:00 [facility] Sex Assigned At [birth year] Universit y of 00:00:00 00:00:00 [facility] Smoking Status Start Date Stop Date Source Never Smoker [facility] Light tobacco smoker 2017-04-20 00:00:00 [facility] ity [facility] [place] [facility] Medications Ordered Filled Start Stop Current Ordering Indication Dosage Frequency Signature Comments Components Source Medication Medication Date Date Medication? Clinician (SIG) Name Name sumatriptan 2020-10 Yes Take by Un brad succinate 0-01 mouth. ity of (IMITREX 10:19: [place] ORAL) Medical Branch sumatriptan 2020-10 Yes Take by Un brad succinate 0-01 mouth. ity of (IMITREX 10:19: [place] ORAL) [facility] cetirizine 2020-10 Yes [id number] 10mg Take 1 U nivers (ZYRTEC) 10 0-01 tablet by ity of mg tablet 00:00: mouth [place] 00 daily. Medical Branch azelastine 2020-10 Yes [id number] 1{spray Use 1 Univers 137 mcg 0-01 } [place] in ity of (0.1 %) 00:00: each [place] nasal spray 00 nostril 2 Med ical (two) Branch times daily. Use in each nostril as directed fluticasone 2020-10 Yes [id number] 1{spray Use 1 Univers propionate 0-01 } [place] in ity o f 50 00:00: each [place] mcg/actuati 00 nostril Medic al on nasal daily. Branch spray bromphenira 2020-10 Yes [id number] 5mL Take 5 mL Univers mine-pseudo 0-01 by mouth 4 it y of ephedrine-D 00:00: (four[place] (BROMFED 00 times Medical DM) 2-30-10 daily as Bran ch mg/5 mL needed for syrup Congestion /Allergies . cetirizine 2020-10 Yes [id number] 10mg Take 1 U nivers (ZYRTEC) 10 0-01 tablet by ity of mg tablet 00:00: mouth [place] 00 daily. Medical Branch azelastine 2020-10 Yes [id number] 1{spray Use 1 Univers 137 mcg 0-01 } [place] in ity of (0.1 %) 00:00: each [place] nasal spray 00 nostril 2 Med ical (two) Branch times daily. Use in each nostril as directed fluticasone 2020-10 Yes [id number] 1{spray Use 1 Univers propionate 0-01 } [place] in ity o f 50 00:00: each [place] mcg/actuati 00 nostril Medic al on nasal daily. Branch spray bromphenira 2020-10 Yes [id number] 5mL Take 5 mL Univers mine-pseudo 0-01 by mouth 4 it y of ephedrine-D 00:00: (four[place] (BROMFED 00 times Medical DM) 2-30-10 daily as Bran ch mg/5 mL needed for syrup Congestion /Allergies . amoxicillin 2020-10- Yes [id number] 1{tbl} Take 1 Univers -clavulanat 0-01 -09 tablet by it y of e 00:00: 04:59 mouth 2 [place] (AUGMENTIN) 00 :00 (two) Medical 875-125 mg times Branch per tablet daily for 7 days. cephALEXin No 500mg 500 mg, Un brad (KEFLEX) 07-21 Oral, ity of capsule 500 16:45: 15:41 ONCE, 1 [place] mg 00 :00 dose, On Medical Yris Branch 07/21/21 at 1145, JOSE
Re ason for Anti-Infec tive: Documented Infection< br>Documen aamir Infection Site: Skin / Soft Tissue
Duration of Therapy: Other (see Comments) ibuprofen 2020- No 600mg 600 mg, Uni vers (IBU) 07-21 Oral, ity of tablet 600 16:45: 15:41 ONCE, 1 [place] as mg 00 :00 dose, On Medical Yris Branch 07/21/21 at 1145, JOSE sumatriptan Yes Take by Un brad succinate 07-21 mouth. ity of (IMITREX 10:06: [place] ORAL) 25 Medical Branch ibuprofen Yes [id number] 600mg Take 1 Univers 600 mg 9-23 tablet by ity of tablet 00:00: mouth [place] 00 every 6 Medical (six) Branch hours as needed for Pain (scale 4-6). ibuprofen Yes [id number] 600mg Take 1 Univers 600 mg 9-23 tablet by ity of tablet 00:00: mouth 00 every 6 Medical (six) Branch hours as needed for Pain (scale 4-6). ibuprofen 0 Yes [id number] 600mg Take 1 Univers 600 mg 9-23 tablet by ity of tablet 00:00: mouth 00 every 6 Medical (six) Branch hours as needed for Pain (scale 4-6). cephALEXin 0 202- Yes [id number] 500mg Take 1 Univers (KEFLEX) 9-23 10-04 capsule by ity of 500 mg 00:00: 04:59 mouth 3 [place] capsule 00 :00 (three) Medical times Branch daily for 10 days. cephALEXin 202- No [id number] 500mg Take 1 Univers (KEFLEX) 9-23 10- capsule by ity of 500 mg 00:00: 00:00 mouth 3 [place] capsule 00 :00 (three) Medical times Branch daily for 10 days. benzonatate Yes [id number] 100mg Take 1 Univers 100 mg 9-10 capsule by ity of capsule 00:00: mouth (three) Medical times Branch daily as needed for Cough. benzonatate 0 Yes [id number] 100mg Take 1 Univers 100 mg 9-10 capsule by ity of capsule 00:00: mouth (three) Medical times Branch daily as needed for Cough. benzonatate 0 Yes [id number] 100mg Take 1 Univers 100 mg 9-10 capsule by ity of capsule 00:00: mouth (three) Medical times Branch daily as needed for Cough. benzonatate 0 Yes [id number] 100mg Take 1 Univers 100 mg 9-10 capsule by ity of capsule 00:00: mouth (three) Medical times Branch daily as needed for Cough. benzonatate 0 Yes [id number] 100mg Take 1 Univers 100 mg 9-10 capsule by ity of capsule 00:00: mouth (three) Medical times Branch daily as needed for Cough. benzonatate 0 Yes [id number] 100mg Take 1 Univers 100 mg 9-10 capsule by ity of capsule 00:00: mouth (three) Medical times Branch daily as needed for Cough. benzonatate 2021-0 Yes [id number] 100mg Take 1 Univers 100 mg 9-10 capsule by ity of capsule 00:00: mouth 3 [place] 00 (three) Medical times Branch daily as needed for Cough. sumatriptan 2020-0 Yes Take by Un brad succinate 4-19 mouth. ity of (IMITREX 23:40: [place] ORAL) 54 Medical Branch sumatriptan 2020-0 Yes Take by Un brad succinate 4-19 mouth. ity of (IMITREX 23:40: [place] ORAL) 54 Medical Branch sumatriptan 2020-0 Yes Take by Un brad succinate 4-19 mouth. ity of (IMITREX 23:40: [place] ORAL) 54 Medical Branch sumatriptan 2020-0 Yes Take by Un brad succinate 4-19 mouth. ity of (IMITREX 23:40: [place] ORAL) 54 Medical Branch sumatriptan 2020-0 Yes Take by Un brad succinate 4-19 mouth. ity of (IMITREX 23:40: [place] ORAL) 54 Medical Branch sumatriptan 2020-0 Yes Take by Un brad succinate 4-19 mouth. ity of (IMITREX 18:40: [place] ORAL) 54 Medical Branch sumatriptan 2020-0 Yes Take by Un brad succinate 4-19 mouth. ity of (IMITREX 18:40: [place] ORAL) 54 Medical Branch sumatriptan 2020-0 Yes Take by Un brad succinate 4-19 mouth. ity of (IMITREX 18:40: [place] ORAL) 54 Medical Branch sumatriptan 2020-0 Yes Take by Un brad succinate 4-19 mouth. ity of (IMITREX 18:40: [place] ORAL) 54 Medical Branch medroxyPROG 2020-0 Yes [id number] Take one Univers ESTERone 4-03 by mouth ity of (PROVERA) 00:00: days one [place] 10 mg 00 through 10 Medical tablet of each Branch month beginning 02/27/20. medroxyPROG 2020-0 Yes [id number] Take one Univers ESTERone 4-03 by mouth ity of (PROVERA) 00:00: days one [place] 10 mg 00 through 10 Medical tablet of each Branch month beginning 02/27/20. medroxyPROG 2020-0 Yes [id number] Take one Univers ESTERone 4-03 by mouth ity of (PROVERA) 00:00: days one [place] 10 mg 00 through 10 Medical tablet of each Branch month beginning 02/27/20. medroxyPROG 2020-0 Yes [id number] Take one Univers ESTERone 4-03 by mouth ity of (PROVERA) 00:00: days one [place] 10 mg 00 through 10 Medical tablet of each Branch month beginning 02/27/20. medroxyPROG 2020-0 Yes [id number] Take one Univers ESTERone 4-03 by mouth ity of (PROVERA) 00:00: days one [place] 10 mg 00 through 10 Medical tablet of each Branch month beginning 02/27/20. medroxyPROG 2020-0 Yes [id number] Take one Univers ESTERone 4-03 by mouth ity of (PROVERA) 00:00: days one [place] 10 mg 00 through 10 Medical tablet of each Branch month beginning 02/27/20. medroxyPROG 2020-0 Yes [id number] Take one Univers ESTERone 4-03 by mouth ity of (PROVERA) 00:00: days one [place] 10 mg 00 through 10 Medical tablet of each Branch month beginning 02/27/20. medroxyPROG 2020-0 Yes [id number] Take one Univers ESTERone 4-03 by mouth ity of (PROVERA) 00:00: days one [place] 10 mg 00 through 10 Medical tablet of each Branch month beginning 02/27/20. medroxyPROG 2020-0 Yes [id number] Take one Univers ESTERone 4-03 by mouth ity of (PROVERA) 00:00: days one [place] 10 mg 00 through 10 Medical tablet of each Branch month beginning 02/27/20. medroxyPROG 2020-0 Yes [id number] Take one Univers ESTERone 4-03 by mouth ity of (PROVERA) 00:00: days one [place] 10 mg 00 through 10 Medical tablet of each Branch month beginning 02/27/20. medroxyPROG 2020-0 Yes [id number] Take one Univers ESTERone 4-03 by mouth ity of (PROVERA) 00:00: days one [place] 10 mg 00 through 10 Medical tablet of each Branch month beginning 02/27/20. medroxyPROG 2020-0 Yes [id number] Take one Univers ESTERone 4-03 by mouth ity of (PROVERA) 00:00: days one [place] 10 mg 00 through 10 Medical tablet of each Branch month beginning 02/27/20. medroxyPROG 2020-0 Yes [id number] Take one Univers ESTERone 4-03 by mouth ity of (PROVERA) 00:00: days one [place] 10 mg 00 through 10 Medical tablet of each Branch month beginning 02/27/20. amitriptyli 2020-0 Yes [id number] 25mg Take 1 Univers ne 25 mg 3-26 tablet by ity of tablet 00:00: mouth at [place] [address] bedtime. Medical Branch metoprolol 2020-0 Yes [id number] 50mg Take 1 Univers tartrate 50 3-26 tablet by ity of mg tablet 00:00: mouth 2 [place] (two) Medical times Branch daily. amitriptyli 2020-0 Yes [id number] 25mg Take 1 Univers ne 25 mg 3-26 tablet by ity of tablet 00:00: mouth at [place] [address] bedtime. Medical Branch metoprolol 2020-0 Yes [id number] 50mg Take 1 Univers tartrate 50 3-26 tablet by ity of mg tablet 00:00: mouth 2 [place] (two) Medical times Branch daily. amitriptyli 2020-0 Yes [id number] 25mg Take 1 Univers ne 25 mg 3-26 tablet by ity of tablet 00:00: mouth at [place] [address] bedtime. Medical Branch metoprolol 2020-0 Yes [id number] 50mg Take 1 Univers tartrate 50 3-26 tablet by ity of mg tablet 00:00: mouth 2 [place] (two) Medical times Branch daily. amitriptyli 2020-0 Yes [id number] 25mg Take 1 Univers ne 25 mg 3-26 tablet by ity of tablet 00:00: mouth at [place] [address] bedtime. Medical Branch metoprolol 2020-0 Yes [id number] 50mg Take 1 Univers tartrate 50 3-26 tablet by ity of mg tablet 00:00: mouth 2 [place] (two) Medical times Branch daily. amitriptyli 2020-0 Yes [id number] 25mg Take 1 Univers ne 25 mg 3-26 tablet by ity of tablet 00:00: mouth at [place] [address] bedtime. Medical Branch metoprolol 2020-0 Yes [id number] 50mg Take 1 Univers tartrate 50 3-26 tablet by ity of mg tablet 00:00: mouth 2 [place] (two) Medical times Branch daily. amitriptyli 2020-0 Yes [id number] 25mg Take 1 Univers ne 25 mg 3-26 tablet by ity of tablet 00:00: mouth at [place] bedtime. Medical Branch metoprolol 2020-0 Yes [id number] 50mg Take 1 Univers tartrate 50 3-26 tablet by ity of mg tablet 00:00: mouth 2 [place] (two) Medical times Branch daily. amitriptyli 2020-0 Yes [id number] 25mg Take 1 Univers ne 25 mg 3-26 tablet by ity of tablet 00:00: mouth at [place] [address] bedtime. Medical Branch metoprolol 2020-0 Yes [id number] 50mg Take 1 Univers tartrate 50 3-26 tablet by ity of mg tablet 00:00: mouth 2 [place] (two) Medical times Branch daily. amitriptyli 2020-0 Yes [id number] 25mg Take 1 Univers ne 25 mg 3-26 tablet by ity of tablet 00:00: mouth at [place] [address] bedtime. Medical Branch metoprolol 2020-0 Yes [id number] 50mg Take 1 Univers tartrate 50 3-26 tablet by ity of mg tablet 00:00: mouth 2 [place] (two) Medical times Branch daily. amitriptyli 2020-0 Yes [id number] 25mg Take 1 Univers ne 25 mg 3-26 tablet by ity of tablet 00:00: mouth at [place] [address] bedtime. Medical Branch metoprolol 2020-0 Yes [id number] 50mg Take 1 Univers tartrate 50 3-26 tablet by ity of mg tablet 00:00: mouth 2 [place] (two) Medical times Branch daily. amitriptyli 2020-0 Yes [id number] 25mg Take 1 Univers ne 25 mg 3-26 tablet by ity of tablet 00:00: mouth at [place] [address] bedtime. Medical Branch metoprolol 2020-0 Yes [id number] 50mg Take 1 Univers tartrate 50 3-26 tablet by ity of mg tablet 00:00: mouth 2 [place] (two) Medical times Branch daily. amitriptyli 2020-0 Yes [id number] 25mg Take 1 Univers ne 25 mg 3-26 tablet by ity of tablet 00:00: mouth at [place] [address] bedtime. Medical Branch metoprolol 2020-0 Yes [id number] 50mg Take 1 Univers tartrate 50 3-26 tablet by ity of mg tablet 00:00: mouth 2 (two) Medical times Branch daily. amitriptyli 2020-0 Yes [id number] 25mg Take 1 Univers ne 25 mg 3-26 tablet by ity of tablet 00:00: mouth at [place] bedtime. Medical Branch metoprolol 2020-0 Yes [id number] 50mg Take 1 Univers tartrate 50 3-26 tablet by ity of mg tablet 00:00: mouth 2 (two) Medical times Branch daily. amitriptyli 2020-0 Yes [id number] 25mg Take 1 Univers ne 25 mg 3-26 tablet by ity of tablet 00:00: mouth at [place] bedtime. Medical Branch metoprolol 2020-0 Yes [id number] 50mg Take 1 Univers tartrate 50 3-26 tablet by ity of mg tablet 00:00: mouth 2 [place] (two) Medical times Branch daily. amitriptyli 2020-0 Yes [id number] 25mg Take 1 Univers ne 25 mg 3-26 tablet by ity of tablet 00:00: mouth at [place] bedtime. Medical Branch amitriptyli 2020-0 Yes [id number] 25mg Take 1 Univers ne 25 mg 3-26 tablet by ity of tablet 00:00: mouth at [place] bedtime. Medical Branch metoprolol 2020-0 Yes [id number] 50mg Take 1 Univers tartrate 50 3-26 tablet by ity of mg tablet 00:00: mouth 2 [place] (two) Medical times Branch daily. amitriptyli 2020-0 Yes [id number] 25mg Take 1 Univers ne 25 mg 3-26 tablet by ity of tablet 00:00: mouth at [place] bedtime. Medical Branch metoprolol 2020-0 Yes [id number] 50mg Take 1 Univers tartrate 50 3-26 tablet by ity of mg tablet 00:00: mouth 2 [place] (two) Medical times Branch daily. metoprolol 2020-0 Yes [id number] 50mg Take 1 Univers tartrate 50 3-26 tablet by ity of mg tablet 00:00: mouth 2 [place] (two) Medical times Branch daily. amitriptyli 2020-0 Yes [id number] 25mg Take 1 Univers ne 25 mg 3-26 tablet by ity of tablet 00:00: mouth at [place] [address] bedtime. Medical Branch metoprolol 2020-0 Yes [id number] 50mg Take 1 Univers tartrate 50 3-26 tablet by ity of mg tablet 00:00: mouth 2 [place] (two) Medical times Branch daily. amitriptyli 2020-0 Yes [id number] 25mg Take 1 Univers ne 25 mg 3-26 tablet by ity of tablet 00:00: mouth at [place] [address] bedtime. Medical Branch metoprolol 2020-0 Yes [id number] 50mg Take 1 Univers tartrate 50 3-26 tablet by ity of mg tablet 00:00: mouth 2 [place] (two) Medical times Branch daily. amitriptyli 2020-0 Yes [id number] 25mg Take 1 Univers ne 25 mg 3-26 tablet by ity of tablet 00:00: mouth at [place] [address] bedtime. Medical Branch metoprolol 2020-0 Yes [id number] 50mg Take 1 Univers tartrate 50 3-26 tablet by ity of mg tablet 00:00: mouth 2 [place] (two) Medical times Branch daily. amitriptyli 2020-0 Yes [id number] 25mg Take 1 Univers ne 25 mg 3-26 tablet by ity of tablet 00:00: mouth at [place] [address] bedtime. Medical Branch metoprolol 2020-0 Yes [id number] 50mg Take 1 Univers tartrate 50 3-26 tablet by ity of mg tablet 00:00: mouth 2 [place] (two) Medical times Branch daily. amitriptyli 2020-0 Yes [id number] 25mg Take 1 Univers ne 25 mg 3-26 tablet by ity of tablet 00:00: mouth at [place] [address] bedtime. Medical Branch metoprolol 2020-0 Yes [id number] 50mg Take 1 Univers tartrate 50 3-26 tablet by ity of mg tablet 00:00: mouth 2 [place] (two) Medical times Branch daily. indomethaci 2020-0 Yes [id number] 50mg Take 1 Univers n 50 mg 2-14 capsule by ity of capsule 00:00: mouth 3 [place] (three) Medical times Branch daily with meals. metoprolol 2020-0 Yes [id number] Take BP Univers tartrate 25 2-14 twice a ity o f mg tablet 00:00: day.If SBP [place] 00 is less Medical than 130 Branch take 25mg, if over 130 can take 50mg.If heart rate is under 60 only take 25mg, do not take 50mg. albuterol 2020-0 Yes [id number] 2{puff} Inhale 2 Univers 90 2-14 Puffs ity of mcg/actuati 00:00: every 6 [place] as on inhaler 00 (six) Medical hours as Branch needed for Wheezing or Shortness of Breath. levETIRAcet 2020-0 Yes [id number] 500mg Take 1 Univers am (KEPPRA) 2-14 tablet by ity of 500 mg 00:00: mouth 2 [place] tablet 00 (two) Medical times Branch daily. budesonide- 2020-0 Yes [id number] 2{puff} Inhale 2 Univers formoteroL 2-14 Puffs 2 ity of 160-4.5 00:00: (two) [place] mcg/actuati 00 times Medical on inhaler daily. Branch indomethaci 2020-0 Yes [id number] 50mg Take 1 Univers n 50 mg 2-14 capsule by ity of capsule 00:00: mouth 3 [place] 00 (three) Medical times Branch daily with meals. albuterol 2020-0 Yes [id number] 2{puff} Inhale 2 Univers 90 2-14 Puffs ity of mcg/actuati 00:00: every 6 [place] as on inhaler 00 (six) Medical hours as Branch needed for Wheezing or Shortness of Breath. levETIRAcet 2020-0 Yes [id number] 500mg Take 1 Univers am (KEPPRA) 2-14 tablet by ity of 500 mg 00:00: mouth 2 [place] tablet 00 (two) Medical times Branch daily. budesonide- 2020-0 Yes [id number] 2{puff} Inhale 2 Univers formoteroL 2-14 Puffs 2 ity of 160-4.5 00:00: (two) [place] mcg/actuati 00 times Medical on inhaler daily. Branch indomethaci 2020-0 Yes [id number] 50mg Take 1 Univers n 50 mg 2-14 capsule by ity of capsule 00:00: mouth 3 [place] 00 (three) Medical times Branch daily with meals. albuterol 2020-0 Yes [id number] 2{puff} Inhale 2 Univers 90 2-14 Puffs ity of mcg/actuati 00:00: every 6 [place] as on inhaler 00 (six) Medical hours as Branch needed for Wheezing or Shortness of Breath. levETIRAcet 2020-0 Yes [id number] 500mg Take 1 Univers am (KEPPRA) 2-14 tablet by ity of 500 mg 00:00: mouth 2 [place] tablet 00 (two) Medical times Branch daily. budesonide- 2020-0 Yes [id number] 2{puff} Inhale 2 Univers formoteroL 2-14 Puffs 2 ity of 160-4.5 00:00: (two) [place] mcg/actuati 00 times Medical on inhaler daily. Branch indomethaci 2020-0 Yes [id number] 50mg Take 1 Univers n 50 mg 2-14 capsule by ity of capsule 00:00: mouth 3 [place] 00 (three) Medical times Branch daily with meals. albuterol 2020-0 Yes [id number] 2{puff} Inhale 2 Univers 90 2-14 Puffs ity of mcg/actuati 00:00: every 6 [place] as on inhaler 00 (six) Medical hours as Branch needed for Wheezing or Shortness of Breath. levETIRAcet 2020-0 Yes [id number] 500mg Take 1 Univers am (KEPPRA) 2-14 tablet by ity of 500 mg 00:00: mouth 2 [place] tablet 00 (two) Medical times Branch daily. budesonide- 2020-0 Yes [id number] 2{puff} Inhale 2 Univers formoteroL 2-14 Puffs 2 ity of 160-4.5 00:00: (two) [place] mcg/actuati 00 times Medical on inhaler daily. Branch indomethaci 2020-0 Yes [id number] 50mg Take 1 Univers n 50 mg 2-14 capsule by ity of capsule 00:00: mouth 3 00 (three) Medical times Branch daily with meals. albuterol 2020-0 Yes [id number] 2{puff} Inhale 2 Univers 90 2-14 Puffs ity of mcg/actuati 00:00: every 6 [place] as on inhaler 00 (six) Medical hours as Branch needed for Wheezing or Shortness of Breath. levETIRAcet 2020-0 Yes [id number] 500mg Take 1 Univers am (KEPPRA) 2-14 tablet by ity of 500 mg 00:00: mouth 2 [place] tablet 00 (two) Medical times Branch daily. budesonide- 2020-0 Yes [id number] 2{puff} Inhale 2 Univers formoteroL 2-14 Puffs 2 ity of 160-4.5 00:00: (two) [place] mcg/actuati 00 times Medical on inhaler daily. Branch indomethaci 2020-0 Yes [id number] 50mg Take 1 Univers n 50 mg 2-14 capsule by ity of capsule 00:00: mouth 3 [place] 00 (three) Medical times Branch daily with meals. albuterol 2020-0 Yes [id number] 2{puff} Inhale 2 Univers 90 2-14 Puffs ity of mcg/actuati 00:00: every 6 [place] as on inhaler 00 (six) Medical hours as Branch needed for Wheezing or Shortness of Breath. levETIRAcet 2020-0 Yes [id number] 500mg Take 1 Univers am (KEPPRA) 2-14 tablet by ity of 500 mg 00:00: mouth 2 [place] tablet 00 (two) Medical times Branch daily. budesonide- 2020-0 Yes [id number] 2{puff} Inhale 2 Univers formoteroL 2-14 Puffs 2 ity of 160-4.5 00:00: (two) [place] mcg/actuati 00 times Medical on inhaler daily. Branch indomethaci 2020-0 Yes [id number] 50mg Take 1 Univers n 50 mg 2-14 capsule by ity of capsule 00:00: mouth 3 [place] 00 (three) Medical times Branch daily with meals. albuterol 2020-0 Yes [id number] 2{puff} Inhale 2 Univers 90 2-14 Puffs ity of mcg/actuati 00:00: every 6 [place] as on inhaler 00 (six) Medical hours as Branch needed for Wheezing or Shortness of Breath. levETIRAcet 2020-0 Yes [id number] 500mg Take 1 Univers am (KEPPRA) 2-14 tablet by ity of 500 mg 00:00: mouth 2 [place] tablet 00 (two) Medical times Branch daily. budesonide- 2020-0 Yes [id number] 2{puff} Inhale 2 Univers formoteroL 2-14 Puffs 2 ity of 160-4.5 00:00: (two) [place] mcg/actuati 00 times Medical on inhaler daily. Branch indomethaci 2020-0 Yes [id number] 50mg Take 1 Univers n 50 mg 2-14 capsule by ity of capsule 00:00: mouth 3 [place] 00 (three) Medical times Branch daily with meals. albuterol 2020-0 Yes [id number] 2{puff} Inhale 2 Univers 90 2-14 Puffs ity of mcg/actuati 00:00: every 6 [place] as on inhaler 00 (six) Medical hours as Branch needed for Wheezing or Shortness of Breath. levETIRAcet 2020-0 Yes [id number] 500mg Take 1 Univers am (KEPPRA) 2-14 tablet by ity of 500 mg 00:00: mouth 2 [place] tablet 00 (two) Medical times Branch daily. budesonide- 2020-0 Yes [id number] 2{puff} Inhale 2 Univers formoteroL 2-14 Puffs 2 ity of 160-4.5 00:00: (two) [place] mcg/actuati 00 times Medical on inhaler daily. Branch indomethaci 2020-0 Yes [id number] 50mg Take 1 [facility] n 50 mg 2-14 capsule by ity of capsule 00:00: mouth 3 [place] 00 (three) Medical times Branch daily with meals. albuterol 2020-0 Yes [id number] 2{puff} Inhale 2 [facility] 90 2-14 Puffs ity of mcg/actuati 00:00: every 6 [place] as on inhaler 00 (six) Medical hours as Branch needed for Wheezing or Shortness of Breath. levETIRAcet 2020-0 Yes [id number] 500mg Take 1 [facility] am (KEPPRA) 2-14 tablet by ity of 500 mg 00:00: mouth 2 [place] tablet 00 (two) Medical times Branch daily. budesonide- 2020-0 Yes [id number] 2{puff} Inhale 2 [facility] formoteroL 2-14 Puffs 2 ity of 160-4.5 00:00: (two) [place] mcg/actuati 00 times Medical on inhaler daily. Branch indomethaci 2020-0 Yes [id number] 50mg Take 1 [facility] n 50 mg 2-14 capsule by ity of capsule 00:00: mouth 3 [place] 00 (three) Medical times Branch daily with meals. albuterol 2020-0 Yes [id number] 2{puff} Inhale 2 [facility] 90 2-14 Puffs ity of mcg/actuati 00:00: every 6 [place] on inhaler 00 (six) Medical hours as Branch needed for Wheezing or Shortness of Breath. levETIRAcet 2020-0 Yes [id number] 500mg Take 1 [facility] am (KEPPRA) 2-14 tablet by ity of 500 mg 00:00: mouth 2 [place] tablet 00 (two) Medical times Branch daily. budesonide- 2020-0 Yes [id number] 2{puff} Inhale 2 [facility] formoteroL 2-14 Puffs 2 ity of 160-4.5 00:00: (two) [place] mcg/actuati 00 times Medical on inhaler daily. Branch indomethaci 2020-0 Yes [id number] 50mg Take 1 [facility] n 50 mg 2-14 capsule by ity of capsule 00:00: mouth 3 [place] 00 (three) Medical times Branch daily with meals. albuterol 2020-0 Yes [id number] 2{puff} Inhale 2 [facility] 90 2-14 Puffs ity of mcg/actuati 00:00: every 6 [place] on inhaler 00 (six) Medical hours as Branch needed for Wheezing or Shortness of Breath. levETIRAcet 2020-0 Yes [id number] 500mg Take 1 [facility] am (KEPPRA) 2-14 tablet by ity of 500 mg 00:00: mouth 2 [place] tablet 00 (two) Medical times Branch daily. budesonide- 2020-0 Yes [id number] 2{puff} Inhale 2 [facility] formoteroL 2-14 Puffs 2 ity of 160-4.5 00:00: (two) [place] mcg/actuati 00 times Medical on inhaler daily. Branch budesonide- 2020-0 Yes [id number] 2{puff} Inhale 2 [facility] formoteroL 2-14 Puffs 2 ity of 160-4.5 00:00: (two) [place] mcg/actuati 00 times Medical on inhaler daily. Branch indomethaci 2020-0 Yes [id number] 50mg Take 1 [facility] n 50 mg 2-14 capsule by ity of capsule 00:00: mouth 3 [place] 00 (three) Medical times Branch daily with meals. albuterol 2020-0 Yes [id number] 2{puff} Inhale 2 [facility] 90 2-14 Puffs ity of mcg/actuati 00:00: every 6 [place] on inhaler 00 (six) Medical hours as Branch needed for Wheezing or Shortness of Breath. levETIRAcet 2020-0 Yes [id number] 500mg Take 1 [facility] am (KEPPRA) 2-14 tablet by ity of 500 mg 00:00: mouth 2 [place] tablet 00 (two) Medical times Branch daily. indomethaci 2020-0 Yes [id number] 50mg Take 1 [facility] n 50 mg 2-14 capsule by ity of capsule 00:00: mouth 3 [place] 00 (three) Medical times Branch daily with meals. budesonide- 2020-0 Yes [id number] 2{puff} Inhale 2 [facility] formoteroL 2-14 Puffs 2 ity of 160-4.5 00:00: (two) [place] mcg/actuati 00 times Medical on inhaler daily. Branch indomethaci 2020-0 Yes [id number] 50mg Take 1 [facility] n 50 mg 2-14 capsule by ity of capsule 00:00: mouth 3 [place] 00 (three) Medical times Branch daily with meals. albuterol 2020-0 Yes [id number] 2{puff} Inhale 2 [facility] 90 2-14 Puffs ity of mcg/actuati 00:00: every 6 [place] on inhaler 00 (six) Medical hours as Branch needed for Wheezing or Shortness of Breath. levETIRAcet 2020-0 Yes [id number] 500mg Take 1 [facility] am (KEPPRA) 2-14 tablet by ity of 500 mg 00:00: mouth 2 [place] tablet 00 (two) Medical times Branch daily. albuterol 2020-0 Yes [id number] 2{puff} Inhale 2 [facility] 90 2-14 Puffs ity of mcg/actuati 00:00: every 6 [place] on inhaler 00 (six) Medical hours as Branch needed for Wheezing or Shortness of Breath. budesonide- 2020-0 Yes [id number] 2{puff} Inhale 2 [facility] formoteroL 2-14 Puffs 2 ity of 160-4.5 00:00: (two) [place] mcg/actuati 00 times Medical on inhaler daily. Branch levETIRAcet 2020-0 Yes [id number] 500mg Take 1 [facility] am (KEPPRA) 2-14 tablet by ity of 500 mg 00:00: mouth 2 [place] tablet 00 (two) Medical times Branch daily. indomethaci 2020-0 Yes [id number] 50mg Take 1 [facility] n 50 mg 2-14 capsule by ity of capsule 00:00: mouth 3 [place] 00 (three) Medical times Branch daily with meals. albuterol 2020-0 Yes [id number] 2{puff} Inhale 2 [facility] 90 2-14 Puffs ity of mcg/actuati 00:00: every 6 [place] on inhaler 00 (six) Medical hours as Branch needed for Wheezing or Shortness of Breath. levETIRAcet 2020-0 Yes [id number] 500mg Take 1 [facility] am (KEPPRA) 2-14 tablet by ity of 500 mg 00:00: mouth 2 [place] tablet 00 (two) Medical times Branch daily. budesonide- 2020-0 Yes [id number] 2{puff} Inhale 2 [facility] formoteroL 2-14 Puffs 2 ity of 160-4.5 00:00: (two) [place] mcg/actuati 00 times Medical on inhaler daily. Branch indomethaci 2020-0 Yes [id number] 50mg Take 1 [facility] n 50 mg 2-14 capsule by ity of capsule 00:00: mouth 3 [place] 00 (three) Medical times Branch daily with meals. albuterol 2020-0 Yes [id number] 2{puff} Inhale 2 [facility] 90 2-14 Puffs ity of mcg/actuati 00:00: every 6 [place] on inhaler 00 (six) Medical hours as Branch needed for Wheezing or Shortness of Breath. levETIRAcet 2020-0 Yes [id number] 500mg Take 1 [facility] am (KEPPRA) 2-14 tablet by ity of 500 mg 00:00: mouth 2 [place] tablet 00 (two) Medical times Branch daily. budesonide- 2020-0 Yes [id number] 2{puff} Inhale 2 [facility] formoteroL 2-14 Puffs 2 ity of 160-4.5 00:00: (two) [place] mcg/actuati 00 times Medical on inhaler daily. Branch indomethaci 2020-0 Yes [id number] 50mg Take 1 [facility] n 50 mg 2-14 capsule by ity of capsule 00:00: mouth 3 [place] 00 (three) Medical times Branch daily with meals. albuterol 2020-0 Yes [id number] 2{puff} Inhale 2 [facility] 90 2-14 Puffs ity of mcg/actuati 00:00: every 6 [place] on inhaler 00 (six) Medical hours as Branch needed for Wheezing or Shortness of Breath. levETIRAcet 2020-0 Yes [id number] 500mg Take 1 [facility] am (KEPPRA) 2-14 tablet by ity of 500 mg 00:00: mouth 2 [place] tablet 00 (two) Medical times Branch daily. budesonide- 2020-0 Yes [id number] 2{puff} Inhale 2 [facility] formoteroL 2-14 Puffs 2 ity of 160-4.5 00:00: (two) [place] mcg/actuati 00 times Medical on inhaler daily. Branch indomethaci 2020-0 Yes [id number] 50mg Take 1 [facility] n 50 mg 2-14 capsule by ity of capsule 00:00: mouth 3 [place] 00 (three) Medical times Branch daily with meals. albuterol 2020-0 Yes [id number] 2{puff} Inhale 2 [facility] 90 2-14 Puffs ity of mcg/actuati 00:00: every 6 [place] on inhaler 00 (six) Medical hours as Branch needed for Wheezing or Shortness of Breath. levETIRAcet 2020-0 Yes [id number] 500mg Take 1 [facility] am (KEPPRA) 2-14 tablet by ity of 500 mg 00:00: mouth 2 [place] tablet 00 (two) Medical times Branch daily. budesonide- 2020-0 Yes [id number] 2{puff} Inhale 2 [facility] formoteroL 2-14 Puffs 2 ity of 160-4.5 00:00: (two) [place] mcg/actuati 00 times Medical on inhaler daily. Branch indomethaci 2020-0 Yes [id number] 50mg Take 1 [facility] n 50 mg 2-14 capsule by ity of capsule 00:00: mouth 3 00 (three) Medical times Branch daily with meals. albuterol 2020-0 Yes [id number] 2{puff} Inhale 2 [facility] 90 2-14 Puffs ity of mcg/actuati 00:00: every 6 [place] on inhaler 00 (six) Medical hours as Branch needed for Wheezing or Shortness of Breath. levETIRAcet 2020-0 Yes [id number] 500mg Take 1 [facility] am (KEPPRA) 2-14 tablet by ity of 500 mg 00:00: mouth 2 [place] tablet 00 (two) Medical times Branch daily. budesonide- 2020-0 Yes [id number] 2{puff} Inhale 2 [facility] formoteroL 2-14 Puffs 2 ity of 160-4.5 00:00: (two) [place] mcg/actuati 00 times Medical on inhaler daily. Branch indomethaci 2020-0 Yes [id number] 50mg Take 1 [facility] n 50 mg 2-14 capsule by ity of capsule 00:00: mouth 3 [place] 00 (three) Medical times Branch daily with meals. albuterol 2020-0 Yes [id number] 2{puff} Inhale 2 [facility] 90 2-14 Puffs ity of mcg/actuati 00:00: every 6 [place] on inhaler 00 (six) Medical hours as Branch needed for Wheezing or Shortness of Breath. levETIRAcet 2020-0 Yes [id number] 500mg Take 1 [facility] am (KEPPRA) 2-14 tablet by ity of 500 mg 00:00: mouth 2 [place] tablet 00 (two) Medical times Branch daily. budesonide- 2020-0 Yes [id number] 2{puff} Inhale 2 [facility] formoteroL 2-14 Puffs 2 ity of 160-4.5 00:00: (two) [place] mcg/actuati 00 times Medical on inhaler daily. Branch indomethaci 2020-0 Yes [id number] 50mg Take 1 [facility] n 50 mg 2-14 capsule by ity of capsule 00:00: mouth 3 [place] 00 (three) Medical times Branch daily with meals. albuterol 2020-0 Yes [id number] 2{puff} Inhale 2 [facility] 90 2-14 Puffs ity of mcg/actuati 00:00: every 6 [place] on inhaler 00 (six) Medical hours as Branch needed for Wheezing or Shortness of Breath. budesonide- 2020-0 Yes [id number] 2{puff} Inhale 2 [facility] formoteroL 2-14 Puffs 2 ity of 160-4.5 00:00: (two) [place] mcg/actuati 00 times Medical on inhaler daily. Branch indomethaci 2020-0 Yes [id number] 50mg Take 1 [facility] n 50 mg 2-14 capsule by ity of capsule 00:00: mouth 3 [place] 00 (three) Medical times Branch daily with meals. albuterol 2020-0 Yes [id number] 2{puff} Inhale 2 [facility] 90 2-14 Puffs ity of mcg/actuati 00:00: every 6 [place] on inhaler 00 (six) Medical hours as Branch needed for Wheezing or Shortness of Breath. levETIRAcet 2020-0 Yes [id number] 500mg Take 1 [facility] am (KEPPRA) 2-14 tablet by ity of 500 mg 00:00: mouth 2 [place] tablet 00 (two) Medical times Branch daily. levETIRAcet 2020-0 Yes [id number] 500mg Take 1 [facility] am (KEPPRA) 2-14 tablet by ity of 500 mg 00:00: mouth 2 [place] tablet 00 (two) Medical times Branch daily. albuterol 2020-0 Yes [id number] 2{puff} Inhale 2 [facility] 90 2-14 Puffs ity of mcg/actuati 00:00: every 6 [place] on inhaler 00 (six) Medical hours as Branch needed for Wheezing or Shortness of Breath. budesonide- 2020-0 Yes [id number] 2{puff} Inhale 2 [facility] formoteroL 2-14 Puffs 2 ity of 160-4.5 00:00: (two) [place] mcg/actuati 00 times Medical on inhaler daily. Branch indomethaci 2020-0 Yes [id number] 50mg Take 1 [facility] n 50 mg 2-14 capsule by ity of capsule 00:00: mouth 3 [place] 00 (three) Medical times Branch daily with meals. levETIRAcet 2020-0 Yes [id number] 500mg Take 1 [facility] am (KEPPRA) 2-14 tablet by ity of 500 mg 00:00: mouth 2 [place] tablet 00 (two) Medical times Branch daily. metoprolol 2020-0 Yes [id number] Take BP [facility] tartrate 25 2-14 twice a ity o f mg tablet 00:00: day.If SBP [place] 00 is less Medical than 130 Branch take 25mg, if over 130 can take 50mg.If heart rate is under 60 only take 25mg, do not take 50mg. predniSONE 2020-0 Yes [id number] 20mg Take 1 [facility] 20 mg 2-14 tablet by ity of tablet 00:00: mouth 2 [place] 00 (two) Medical times Branch daily. ipratropium 2020-0 Yes [id number] 2{spray Use 2 [facility] 0.03 % 2-14 } Sprays in ity of nasal spray 00:00: each [place] [address] nostril 3 Medical (three) Branch times daily. albuterol 2020-0 Yes [id number] 2{puff} Inhale 2 [facility] 90 2-14 Puffs ity of mcg/actuati 00:00: every 6 [place] on inhaler 00 (six) Medical hours as Branch needed for Wheezing or Shortness of Breath. budesonide- 2020-0 Yes [id number] 2{puff} Inhale 2 [facility] formoteroL 2-14 Puffs 2 ity of 160-4.5 00:00: (two) [place] mcg/actuati 00 times Medical on inhaler daily. Branch indomethaci 2019-0 Yes [id number] 50mg Take 1 [facility] n 50 mg 2-14 capsule by ity of capsule 00:00: mouth 3 [place] 00 (three) Medical times Branch daily with meals. levETIRAcet 2020-0 Yes [id number] 500mg Take 1 [facility] am (KEPPRA) 2-14 tablet by ity of 500 mg 00:00: mouth 2 [place] tablet 00 (two) Medical times Branch daily. metoprolol 2019-0 Yes [id number] Take BP [facility] tartrate 25 2-14 twice a ity o f mg tablet 00:00: day.If SBP [place] 00 is less Medical than 130 Branch take 25mg, if over 130 can take 50mg.If heart rate is under 60 only take 25mg, do not take 50mg. predniSONE 2020-0 Yes [id number] 20mg Take 1 [facility] 20 mg 2-14 tablet by ity of tablet 00:00: mouth 2 [place] 00 (two) Medical times Branch daily. ipratropium 2019-0 Yes [id number] 2{spray Use 2 [facility] 0.03 % 2-14 } Sprays in ity of nasal spray 00:00: each [place] 00 nostril 3 Medical (three) Branch times daily. predniSONE 2020-0 Yes [id number] 20mg Take 1 [facility] 20 mg 2-14 tablet by ity of tablet 00:00: mouth 2 [place] 00 (two) Medical times Branch daily. budesonide- 2020-0 Yes [id number] 2{puff} Inhale 2 [facility] formoteroL 2-14 Puffs 2 ity of 160-4.5 00:00: (two) [place] mcg/actuati 00 times Medical on inhaler daily. Branch ipratropium 2019-0 2020- No [id number] 2{spray Use 2 [facility] 0.03 % 2-14 03-26 } Sprays in ity of nasal spray 00:00: 00:00 each [place] 00 :00 nostril 3 Medical (three) Branch times daily. predniSONE 2019- No [id number] 20mg Take 1 [facility] 20 mg 12-12 tablet by ity of tablet 00:00: 00:00 mouth 2 [place] 00 :00 (two) Medical times Branch daily. metoprolol 2019- No [id number] Take BP [facility] tartrate 25 12-12 twice a ity of mg tablet 00:00: 00:00 day.If SBP [place] 00 :00 is less Medical than 130 Branch take 25mg, if over 130 can take 50mg.If heart rate is under 60 only take 25mg, do not take 50mg. albuterol 2019- No [id number] 2{puff} Inhale 2 [facility] 90 12-12 Puffs ity of mcg/actuati 00:00: 00:00 every 6 [place] on inhaler 00 :00 (six) Medical hours as Branch needed for Wheezing or Shortness of Breath. budesonide- 2019- No [id number] 2{puff} Inhale 2 [facility] formoteroL 12-12 Puffs 2 ity o f 160-4.5 00:00: 00:00 (two) [place] mcg/actuati 00 :00 times Medical on inhaler daily. Branch indomethaci No [id number] 50mg Take 1 [facility] n 50 mg 12-12 capsule by ity o f capsule 00:00: 00:00 mouth 3 [place] 00 :00 (three) Medical times Branch daily with meals. levETIRAcet No [id number] 500mg Take 1 [facility] am (KEPPRA) 12-12 tablet by it y of 500 mg 00:00: 00:00 mouth 2 [place] tablet 00 :00 (two) Medical times Branch daily. metoprolol No [id number] Take BP [facility] tartrate 25 12-12 twice a ity of mg tablet 00:00: 00:00 day.If SBP [place] 00 :00 is less Medical than 130 Branch take 25mg, if over 130 can take 50mg.If heart rate is under 60 only take 25mg, do not take 50mg. predniSONE 2020-0 2020- No [id number] 20mg Take 1 [facility] 20 mg 2-14 -14 tablet by ity of tablet 00:00: 00:00 mouth 2 [place] 00 :00 (two) Medical [facility] daily. topiramate 2020-0 Yes [facility] 25 mg 1-28 ity of tablet 00:00: [place] [address] Medical [place] topiramate 2020-0 Yes [facility] 25 mg 1-28 ity of tablet 00:00: [address] topiramate 2020-0 Yes [facility] 25 mg 1-28 ity of tablet 00:00: [address] topiramate 2020-0 Yes [facility] 25 mg 1-28 ity of tablet 00:00: [address] topiramate 2020-0 Yes [facility] 25 mg 1-28 ity of tablet 00:00: [address] topiramate 2020-0 Yes [facility] 25 mg 1-28 ity of tablet 00:00: [address] topiramate 2020-0 Yes [facility] 25 mg 1-28 ity of tablet 00:00: [address] topiramate 2020-0 Yes [facility] 25 mg 1-28 ity of tablet 00:00: [address] topiramate 2020-0 Yes [facility] 25 mg 1-28 ity of tablet 00:00: [address] topiramate 2020-0 Yes [facility] 25 mg 1-28 ity of tablet 00:00: [address] topiramate 2020-0 Yes [facility] 25 mg 1-28 ity of tablet 00:00: [address] topiramate 2020-0 Yes [facility] 25 mg 1-28 ity of tablet 00:00: [address] topiramate 2020-0 Yes [facility] 25 mg 1-28 ity of tablet 00:00: [address] topiramate 2020-0 Yes [facility] 25 mg 1-28 ity of tablet 00:00: [address] topiramate 2020-0 Yes [facility] 25 mg 1-28 ity of tablet 00:00: [address] topiramate 2020-0 Yes [facility] 25 mg 1-28 ity of tablet 00:00: [address] topiramate 2020-0 Yes [facility] 25 mg 1-28 ity of tablet 00:00: [address] topiramate 2020-0 Yes [facility] 25 mg 1-28 ity of tablet 00:00: [place] 00 Medical Branch topiramate 2020-0 Yes [facility] 25 mg 1-28 ity of tablet 00:00: [place] 00 Medical Branch topiramate 2020-0 Yes [facility] 25 mg 1-28 ity of tablet 00:00: [place] 00 Medical Branch topiramate 2020-0 Yes [facility] 25 mg 1-28 ity of tablet 00:00: [place] [address] Medical Branch carBAMazepi 2020-0 Yes Univer s ne 200 mg 1-20 ity of tablet 00:00: [place] 00 Medical Branch carBAMazepi 2020-0 Yes Univer s ne 200 mg 1-20 ity of tablet 00:00: [place] [address] Medical Branch carBAMazepi 2020-0 Yes Univer s ne 200 mg 1-20 ity of tablet 00:00: [place] [address] Medical Branch carBAMazepi 2020-0 Yes Univer s ne 200 mg 1-20 ity of tablet 00:00: [place] [address] Medical Branch carBAMazepi 2020-0 Yes Univer s ne 200 mg 1-20 ity of tablet 00:00: [place] [address] Medical Branch carBAMazepi 2020-0 Yes Univer s ne 200 mg 1-20 ity of tablet 00:00: [place] [address] Medical Branch carBAMazepi 2020-0 Yes Univer s ne 200 mg 1-20 ity of tablet 00:00: [place] [address] Medical Branch carBAMazepi 2020-0 Yes Univer s ne 200 mg 1-20 ity of tablet 00:00: [place] [address] Medical Branch carBAMazepi 2020-0 Yes Univer s ne 200 mg 1-20 ity of tablet 00:00: [place] [address] Medical Branch carBAMazepi 2020-0 Yes Univer s ne 200 mg 1-20 ity of tablet 00:00: [place] [address] Medical Branch carBAMazepi 2020-0 Yes Univer s ne 200 mg 1-20 ity of tablet 00:00: [place] [address] Medical Branch carBAMazepi 2020-0 Yes Univer s ne 200 mg 1-20 ity of tablet 00:00: [place] [address] Medical Branch carBAMazepi 2020-0 Yes Univer s ne 200 mg 1-20 ity of tablet 00:00: [place] [address] Medical Branch carBAMazepi 2020-0 Yes Univer s ne 200 mg 1-20 ity of tablet 00:00: [place] [address] Medical Branch carBAMazepi 2020-0 Yes Univer s ne 200 mg 1-20 ity of tablet 00:00: [place] 00 Medical Branch carBAMazepi 2020-0 Yes Univer s ne 200 mg 1-20 ity of tablet 00:00: Medical Branch carBAMazepi 2020-0 Yes Univer s ne 200 mg 1-20 ity of tablet 00:00: Medical Branch carBAMazepi 2020-0 Yes Univer s ne 200 mg 1-20 ity of tablet 00:00: Medical Branch carBAMazepi 2020-0 Yes Univer s ne 200 mg 1-20 ity of tablet 00:00: [place] [facility] Branch carBAMazepi 2020-0 Yes Univer s ne 200 mg 1-20 ity of tablet 00:00: Medical Branch carBAMazepi 2020-0 Yes Univer s ne 200 mg 1-20 ity of tablet 00:00: [place] [facility] naproxen 2018-10 Yes [id number] 500mg Take 1 U nivers 500 mg 0-16 tablet by ity of tablet 00:00: mouth [place] 00 every 8 Medical (eight) Branch hours as needed for Pain (scale 1-3) or Pain (scale 4-6). ipratropium 2018-10 Yes [id number] 2{spray Use 2 [facility] 0.03 % 0-16 } Sprays in ity of nasal spray 00:00: each nostril 3 Medical (three) Branch times daily. naproxen 2018-10 Yes [id number] 500mg Take 1 U nivers 500 mg 0-16 tablet by ity of tablet 00:00: mouth [place] 00 every 8 Medical (eight) Branch hours as needed for Pain (scale 1-3) or Pain (scale 4-6). naproxen 2018-10 Yes [id number] 500mg Take 1 U nivers 500 mg 0-16 tablet by ity of tablet 00:00: mouth [place] 00 every 8 Medical (eight) Branch hours as needed for Pain (scale 1-3) or Pain (scale 4-6). naproxen 2018-10 2020- No [id number] 500mg Take 1 [facility] 500 mg 0-16 03-26 tablet by ity of tablet 00:00: 00:00 mouth [place] 00 :00 every 8 Medical (eight) Branch hours as needed for Pain (scale 1-3) or Pain (scale 4-6). ipratropium 2018-10 2020- No [id number] 2{spray Use 2 [facility] 0.03 % 0-16 02-08 } Sprays in ity of nasal spray 00:00: 00:00 each [place] 00 :00 nostril 3 Medical (three) Branch times daily. albuterol 2018-10- No 2{puff} Inhale 2 [facility] 90 0-15 02-08 Puffs ity of mcg/actuati 00:00: 00:00 every 6 [place] on inhaler 00 :00 (six) Medical hours as Branch needed for Wheezing or Shortness of Breath. budesonide- 2018-10- No 2{puff} Inhale 2 [facility] formoterol 0-15 02-08 Puffs 2 ity o f 160-4.5 00:00: 00:00 (two) [place] mcg/actuati 00 :00 times Medical on inhaler daily. Branch indomethaci 2018-10- No [id number] 50mg Take 1 [facility] n 50 mg 0-15 -08 capsule by ity o f capsule 00:00: 00:00 mouth 3 [place] 00 :00 (three) Medical times Branch daily with meals. levETIRAcet 2018-10- No [id number] 500mg Take 1 [facility] am (KEPPRA) 0-15 -08 tablet by it y of 500 mg 00:00: 00:00 mouth 2 [place] tablet 00 :00 (two) Medical times Branch daily. metoprolol 2018-10- No [id number] Take BP [facility] tartrate 25 0-15 02-08 twice a ity of mg tablet 00:00: 00:00 day.If SBP [place] 00 :00 is less Medical than 130 Branch take 25mg, if over 130 can take 50mg.If heart rate is under 60 only take 25mg, do not take 50mg. predniSONE 2018-10- No [id number] 20mg Take 1 [facility] 20 mg 0-15 02-08 tablet by ity of tablet 00:00: 00:00 mouth 2 [place] 00 :00 (two) Medical times Branch daily. codeine-gua Yes [id number] 5mL Take 5 mL [facility] ifenesin 3-12 by mouth ity of 10-100 mg/5 00:00: every 6 [place] mL solution 00 (six) Medical hours as Branch needed for Cough. codeine-gua 2018- Yes [id number] 5mL Take 5 mL [facility] ifenesin 3-12 by mouth ity of 10-100 mg/5 00:00: every 6 [place] mL solution 00 (six) Medical hours as Branch needed for Cough. codeine-gua 2018-0 Yes [id number] 5mL Take 5 mL [facility] ifenesin 3-12 by mouth ity of 10-100 mg/5 00:00: every 6 [place] mL solution 00 (six) Medical hours as Branch needed for Cough. codeine-gua 2018- 2020- No [id number] 5mL Take 5 mL [facility] ifenesin 3-12 -26 by mouth ity of 10-100 mg/5 00:00: 00:00 every 6 [place] mL solution 00 :00 (six) Medical hours as Branch needed for Cough. [place] Fe No [place] [...] aerosol ion HFA inhaler inhaler aerosol inhaler Immunizations Ordered Filled Immunization Date Status Comments [facility] e Immunization Name Name Influenza Virus 2018-12-16 Completed [facility] Vaccine Quad IM 3+ 00:00:00 [facility] Influenza Virus 2018-12-16 Completed [facility] of Vaccine Quad IM 3+ 00:00:00 [facility] Influenza Virus 2018-12-16 Completed [facility] y of Vaccine Quad IM 3+ 00:00:00 [facility] Influenza Virus 2018-12-16 Completed [facility] y of Vaccine Quad IM 3+ 00:00:00 [facility] Influenza Virus 2018-12-16 Completed [facility] y of Vaccine Quad IM 3+ 00:00:00 [facility] Influenza Virus 2018-12-16 Completed [facility] y of Vaccine Quad IM 3+ 00:00:00 [facility] Influenza Virus 2018-12-16 Completed [facility] y of Vaccine Quad IM 3+ 00:00:00 [facility] Influenza Virus 2018-12-16 Completed [facility] y of Vaccine Quad IM 3+ 00:00:00 [facility] Influenza Virus 2018-12-16 Completed [facility] y of Vaccine Quad IM 3+ 00:00:00 [facility] Influenza Virus 2018-12-16 Completed [facility] y of Vaccine Quad IM 3+ 00:00:00 [facility] Influenza Virus 2018-12-16 Completed [facility]it y of Vaccine Quad IM 3+ 00:00:00 [facility] Influenza Virus 2018-12-16 Completed [facility] y of Vaccine Quad IM 3+ 00:00:00 [facility] Influenza Virus 2018-12-16 Completed [facility]it y of Vaccine Quad IM 3+ 00:00:00 [facility] Influenza Virus 2018-12-16 Completed [facility]it y of Vaccine Quad IM 3+ 00:00:00 [facility] Influenza Virus 2018-12-16 Completed [facility]it y of Vaccine Quad IM 3+ 00:00:00 [facility] Influenza Virus 2018-12-16 Completed [facility]it y of Vaccine Quad IM 3+ 00:00:00 [facility] Influenza Virus 2018-12-16 Completed [facility]it y of Vaccine Quad IM 3+ 00:00:00 [facility] Influenza Virus 2018-12-16 Completed [facility]it y of Vaccine Quad IM 3+ 00:00:00 [facility] Influenza Virus 2018-12-16 Completed [facility]it y of Vaccine Quad IM 3+ 00:00:00 [facility] Influenza Virus 2018-12-16 Completed [facility]it y of Vaccine Quad IM 3+ 00:00:00 [facility] Influenza Virus 2018-12-16 Completed [facility]it y of Vaccine Quad IM 3+ 00:00:00 [facility] Influenza Virus 2018-12-16 Completed [facility]it y of Vaccine Quad IM 3+ 00:00:00 [facility] Influenza Virus 2018-12-16 Completed [facility]it y of Vaccine Quad IM 3+ 00:00:00 [facility] Influenza Virus 2018-12-16 Completed [facility]it y of Vaccine Quad IM 3+ 00:00:00 [facility] Vital Signs Vital Name Observation Time Observation Value Comments Source Systolic blood 2021-07-29 15:21:00 125 mm[Hg] Univer [facility] Diastolic blood 2021-07-29 15:21:00 80 mm[Hg] Unive rsity of pressure [facility] Heart rate 2021-07-29 15:21:00 97 /min [facility] [place] Body temperature 2021-07-29 15:21:00 36.67 Sury Univ [facility] Respiratory rate 2021-07-29 15:21:00 16 /min Univ [facility] Body height 2021-07-29 15:21:00 162.6 cm [facility] [place] Body weight 2021-07-29 15:21:00 95.255 kg [facility] [place] BMI 2021-07-29 15:21:00 36.05 kg/m2 [facility] [place] Oxygen saturation in 2021-07-29 15:21:00 98 /min University of Arterial blood by [place] [employer] chloé Pulse oximetry Branch Systolic blood 2021-07-21 15:05:00 140 mm[Hg] [facility] [place] Diastolic blood 2021-07-21 15:05:00 81 mm[Hg] Unive rsity of pressure [facility] Heart rate 2021-07-21 15:05:00 88 /min [facility] [place] Body temperature 2021-07-21 15:05:00 37.28 Sury [facility] [place] Body weight 2021-07-21 15:05:00 95.255 kg [facility] [place] BMI 2021-07-21 15:05:00 36.05 kg/m2 [facility] Oxygen saturation in 2021-07-21 15:05:00 99 /min [facility] Ar[facility]ial blood by [place] [facility] P[facility] oxim[facility] Branch BP Diastolic 2020-04-13 00:00:00 83 mm[Hg] [facility] Height 2020-04-13 00:00:00 64 [in_i] [facility] BMI (Body Mass 2020-04-13 00:00:00 36.5 kg/m2 [facility] Group BP Systolic 2020-04-13 00:00:00 118 mm[Hg] [facility] Body Weight 2020-04-13 00:00:00 212.8 [lb_av] [facility] Procedures Procedure Date / Time Performed Performing Clinician Sour e ASSIGNMENT OF BENEFITS 2021-07-21 15:47:58 Doctor Unassigned, No [facility] Name Medical Branch NOTICE OF PRIVACY 2021-07-21 15:05:18 Doctor Unassigned, No [facility] PRACTICES Name Medical Branch CONSENT/REFUSAL FOR 2021-07-21 14:59:53 Doctor Unassigned, No [facility] DIAGNOSIS AND Name Medical Branch 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 2021-07-19 05:01:00 Doctor Unassigned, No [facility] RECORDS Name Medical Branch ASSIGNMENT OF BENEFITS 2021-06-03 01:26:55 Doctor Unassigned, No [facility] Branch Plan of Care Planned Activity Planned Date Details Comments Source Diagnostic Test 2020-04-13 CBC w/ auto diff [facility] Pending 00:00:00 [code = CBC w/ Group auto diff] Diagnostic Test 2020-04-13 CMP, serum or [facility] Pending 00:00:00 plasma [code = Group CMP, serum or plasma] Diagnostic Test 2020-04-13 lipid panel, serum [facility] Pending 00:00:00 [code = lipid Group panel, serum] Diagnostic Test 2020-04-13 HBsAg (hepatitis B [facility] Pending 00:00:00 surface Ag), serum Group [code = HBsAg (hepatitis B surface Ag), serum] Diagnostic Test 2020-04-13 HIV (1+2) Ab [facility] dicpr Pending 00:00:00 screen, serum Group [code = HIV (1+2) Ab screen, serum] Diagnostic Test 2020-04-13 RPR (rapid plasma [facility] Pending 00:00:00 reagin), serum Group [code = RPR (rapid plasma reagin), serum] Diagnostic Test 2020-04-13 TSH + free T4, [facility] Pending 00:00:00 serum [code = TSH Group + free T4, serum] Diagnostic Test 2020-04-13 pap, LB + HPV [facility] Pending 00:00:00 [code = pap, LB + Group HPV] Diagnostic Test 2020-04-13 CT + NG + TV, DNA, [facility] Pending 00:00:00 urine/swab [code = Group CT + NG + TV, DNA, urine/swab] Encounters Start End Encounter Admission Attending Care Care Encounter Source Date/Time Date/Time Type Type Clinicians Facility Department ID 2021-08-30 Emergency [facility] [id number] Univers 00:49:50 [facility] 2020-02-22 Inpatient U [facility] MED [id number] F B 19:57:00 2021-08-20 2021-08-20 Refill Bakari RUST 1.2.840.114 [id number] Univers 00:00[facility]00 [facility]00[facility] [id number] [place] [id number] Elan as BARRON?BLEA [phone] [address] MEDICAL OFFICE [facility] 2021-07-29 2021-07-29 Urgent Gisell Villegas RUST 1.2.840.114 [id number] Univers 10:14:01 10:34:01 Care Unknown, [facility] [id number] ity of [place] [id number] [place]an as Barron?Blea [phone] [address] Office [facility] 2021-07-29 2021-07-29 Outpatient R [facility] [id number] Univers 10:20:00 10:20:00 [id number] ity [facility] 2021-07-29 2021-07-29 Outpatient R UNKNOWN, [facility] [id number] Univers 10:20:00 10:20:00 ATTENDING [facility] 2021-07-21 2021-07-21 Emergency Vanessa Eduardo RUST 1.2.840.114 [id number] Univers 10:06:00 11:06:00 Josefina Mariscal [id number] i [id number] [phone] [address] 2021-07-19 2021-07-19 Orders Doctor CROOK 1.2.840.114 [id number] Univers 00:00:00 00:00:00 Only Unassigned, DONY [id number] ity of [place] [facility] [id number] Elan as [phone] [address] 2021-07-05 2021-07-05 [facility] 1.2.840.114 [id number] Univers 00:00:00 00:00:00 Zelda Mariscal [id number] [id number] [phone] [facility] [address] [facility] 2021-06-02 2021-06-02 Laboratory Lab, [facility] Fam Pob I RUST 1.2. 840.114 [id number] Univers 20:27:39 20:47:39 Only Aris Gadiel [facility] [id number] ity of [place] [id number] [place] Professio [phone] [facility] [address] [place] [address] 2021-06-02 2021-06-02 Laboratory Lab, [facility] 1.2.840.114 [id number] 20:27:39 20:47:39 Only Fam Pob I Health [id number] [place] [id number] Professio [phone] [place] [address] [address] 2021-06-02 2021-06-02 Outpatient R [facility] [id number] Univers 20:20:00 20:20:00 [id number] [facility] 2021-06-02 2021-06-02 Outpatient R ARIS [facility] [id number] Univers 20:20:00 20:20:00 GADIEL ity [facility] 2021-06-02 2021-06-02 Orders Doctor CROOK 1.2.840.114 [id number] Univers 00:00:00 00:00:00 Only Unassigned, DONY [id number] ity of [place] [facility] [id number] Elan as [phone] [address] 2021-06-02 2021-06-02 [facility]phone [facility] 1.2.840.114 [id number] Univers 00:00:00 00:00:00 Zelda Mariscal [id number] [id number] [phone] [facility] [address] [facility] 2021-06-02 2021-06-02 Orders Doctor AMBREEN 1.2.840.114 [id number] 00:00:00 00:00:00 Only Unassigned, DONY [id number] [place] [facility] 4.2.7.2.686 [id number] [id number] 2021-06-02 2021-06-02 Telephone Lydia RUST 1.2.840.114 [id number] 00:00:00 00:00:00 Zelda Mariscal [id number] [place] [id number] Professio [phone] [address] 2021-01-18 2021-01-18 Patient John MIOJSE ENRIQUE 1.2.840.114 [id number] Univers 00:00:00 00:00:00 Outreach Aidan PRIMARY [id number] i ty of [facility] [id number] [phone] Wy dical [address] [place] [address] 2021-01-18 2021-01-18 Patient John RUST 1.2.840.114 [id number] 00:00:00 00:00:00 Outreach Aidan PRIMARY [id number] Julio C CARE [id number] PAVILLION [id number] [id number] 2020-05-24 2020-05-24 Outpatient R LYDIA [facility] [id number] Univers 08:40:00 08:40:00 ZELDA [id number] [facility] 2020-05-24 2020-05-24 Outpatient Wendy FREEMAN [facility] [id number] Univers 08:40:00 08:40:00 [facility] 2020-04-13 2020-04-13 Maia PIEDRA [place] - [id number] Uday zuleta 00:00:00 00:00:00 Alex [facility] brina STEINER: [address] [facility] [address], [place] [address] , Ph. [phone] 2020-01-23 2020-03-12 Telemedici [facility] 1.2.840.114 [id number] [facility] 11:11:01 16:10:25 ne Visit Lissa Mariscal [id number] it[place] [phone] Wy dic[address] 2020-01-23 2020-03-12 [facility] 1.2.840.114 [id number] 11:11:01 16:10:25 ne Visit Lissa [place] 350.1.13.10 [place] [id number] Professio [phone] [address] 2020-02-23 2020-02-23 Outpatient [facility] MED [id number] [facility] 14:38:00 14:38:00 2020-01-30 2020-01-30 [facility]medici [facility] 1.2.840.114 [id number] [facility] 08:10:50 15:55:51 ne Visit Lissa Mariscal [id number] ity of [place] [phone] [address] 2020-01-30 2020-01-30 [facility] [id number] Univers 10:45:00 10:45:00 LISSA [facility] 2020-01-30 2020-01-30 Outpatient R FOSTER, [facility] [id number] Univers 10:45:00 10:45:00 LISSA [facility] 2020-01-27 2020-01-27 Outpatient R LYDIA, [facility] [id number] Univers 08:40:00 08:40:00 ZELDA [id number] [facility] 2020-01-27 2020-01-27 Telephone [facility] 1.2.840.114 [id number] Univers 00:00:00 00:00:00 Lissa [place] 350.1.13.10 i ty [id number] [phone] [facility] [address] [facility] 2020-01-27 2020-01-27 Telephone [facility] 1.2.840.114 [id number] Univers 00:00:00 00:00:00 Lissa [place] 350.1.13.10 i ty [place] [phone] [address] 2020-01-23 2020-01-23 [facility] [id number] Univers 13:15:00 13:15:00 LISSA [id number] [facility] 2020-01-23 2020-01-23 [facility] [id number] Univers 13:15:00 13:15:00 [facility] 2020-01-23 2020-01-23 Telephone [facility] 1.2.840.114 [id number] Univers 00:00:00 00:00:00 Lissa Mariscal 350.1.13.10 i ty [place] [phone] [address] 2020-01-22 2020-01-22 Telemedici [facility] 1.2.840.114 [id number] Univers 08:40:14 12:05:25 ne Visit Zelda Mariscal 350.1.13.10 ity [place] [phone] [facility] [address] [facility] 2020-01-22 2020-01-22 Outpatient R LYDIA [facility] [id number] Univers 10:40:00 10:40:00 ZELDA [id number] [facility] 2020-01-22 2020-01-22 [facility] [id number] Univers 10:40:00 10:40:00 ZELDA [facility] 2019-12-12 2019-12-12 Telephone [facility] 1..840.114 [id number] Univers 00:00:00 00:00:00 Zelda Mariscal 350.1.13.10 [place] [phone] Wy dical nal [address] [facility] 2019-12-06 2019-12-06 Refill Doctor RUST 1.2.840.114 [id number] Univers 00:00:00 00:00:00 Unassigned, [place] 350.1.13.10 ity of [place].2.[place] [phone] Wy dical nal [address] [facility] 2019-12-06 2019-12-06 Refill Lydia RUST 1.2.840.114 [id number] Univers 00:00:00 00:00:00 Zelda Mariscal 350.1.13.10 [place] [phone] [facility] [address] [facility] Results This patient has no known results.
== END 2021-09-08 09:26 | disposition home or self-care (01) | DRG 101 ==
LOC: ER 10:51 → ERHOLD 16:26 → 2ND 21:05
PROVIDERS: ADMIT Hospitalist; ATTEND Hospitalist
DX: G40.909 Epilepsy, unspecified, not intractable, without status epilepticus (principal); F41.9 Anxiety disorder, unspecified; I10 Essential (primary) hypertension; I95.9 Hypotension, unspecified; F17.200 Nicotine dependence, unspecified, uncomplicated; K42.9 Umbilical hernia without obstruction or gangrene; J45.909 Unspecified asthma, uncomplicated; Z79.899 Other long term (current) drug therapy; Z91.14 Patient's other noncompliance with medication regimen; Z88.8 Allergy status to other drugs, medicaments and biological substances; Z20.822 Contact with and (suspected) exposure to COVID-19; Z23 Encounter for immunization
CPT/HCPCS: 36415; 70450; 74177; 80048; 80053; 80177; 80185; 80307; 81003; 81025; 83735; 84100; 84439; 84443; 85025; 90471; 94760; 96361; 96365; 96375; 99285; J1200; J1953; J2405; J3475; J7030; Q2035; Q9967; U0003

== ENCOUNTER 2021-10-18 13:28 | Emergency (ER) | payer OTHER ==
--- OUTSIDE RECORDS SUMMARY | 2021-10-18 13:41 | XMS REPORT | Continuity of Care Document ---
:1990 Author Organization [facility] t Address [address] [place] [address] Care Team Providers Name Role Phone Lydia STEINER, Alisia Primary Care Physician Alisia FREEMAN Attending Clinician Unavailable JULIO C REYNOSO Attending Clinician Unavailable Nurse, Pob Immunization Attending Clinician Unavailable Julio C Reynoso DO Attending Clinician Bakari STEINER Attending Clinician Unknown Attending Clinician Unavailable UNKNOWN Attending Clinician Unavailable Josefina Marshall Attending Clinician Doctor Unassigned, Name Attending Clinician Unavailable Alisia Freeman MD Attending Clinician Lab, Fam Pob I Attending Clinician Unavailable Ebrahiuday EMERGENCY VETERINARY TECHNICIAN Attending Clinician EBHIM Attending Clinician Unavailable JANIS Attending Clinician Unavailable Teresita Attending Clinician Unavailable Kristin STEINER Attending Clinician PALOMA TORRES Attending Clinician Unavailable APOLINAR Attending Clinician Unavailable KRISTIN Attending Clinician Unavailable JANIS Admitting Clinician Unavailable Teresita Admitting Clinician Unavailable BUCKY TIJERINA Admitting Clinician Unavailable Payers Payer Name Policy Type Policy Number Effective Date Expiration Date Janes henriquez [facility] [id number] 2019 CHOICE MEDICAID 00:00:00 [facility] [id number] CHOICE (MEDICAID REPLACEMENT - HMO) MEDICAID OF [place] [id number] 2019 00:00:00 Problems Condition Condition Condition Status Onset Resolution Last Treating Co mments Source Name Details Category Date Date Treatment Clinician Date Obesity Obesity Disease Active Univers (BMI (BMI 9-27 ity of 30-39.9) 30-39.9) 00:00: [place] 00 Medical Branch Irregular Irregular Disease Active Uni vers menstrual menstrual 3-12 ity of cycle cycle 00:00: [place] [facility] Asthma, Asthma, Disease Active Univers unspecifie unspecifie 4-23 it y of d asthma d asthma 00:00: [place] severity, severity, 00 Medi chloé unspecifie unspecifie Br anch d whether d whether complicate complicate d, d, unspecifie unspecifie d whether d whether persistent persistent Anxiety Anxiety Disease Active Univers 6-24 ity of 00:00: [place] 00 Medical Branch Essential Essential Disease Active Uni vers hypertensi hypertensi 6-24 it y of on on 00:00: [place] [facility] Other Other Disease Active Univers migraine migraine 6-24 ity of without without 00:00: [place] status status 00 Medical migrainosu migrainosu Br anch s, not s, not intractabl intractabl e e Uncomplica Uncomplica Disease Active U nivers aamir aamir 6-24 ity of asthma, asthma, 00:00: [place] unspecifie unspecifie 00 Me dical d asthma d asthma Branch severity severity Pain of Pain of Disease Active Univers upper upper 624 ity of abdomen abdomen 00:00: [place] [address] [facility] Branch Allergies, Adverse Reactions, Alerts Allergy Allergy Status Severity Reaction(s) Onset Inactive Treating Comm ents Source Name Type Date Date Clinician KETOROLA DRUG Active Hives Univers C INGREDI 6- ity of 00:00: [place] [address] [place] [address] Branch Ketorola Propensi Active Shortness of Can shay e Univers c ty to Breath 6-23 aspirin ity of adverse 00:00: and [place] reaction 00 ibuprofen Medic al s without Branch problem. Social History Social Habit Start Date Stop Date Quantity Comments Source History of 2012-04-20 Cigarette Smoker Universi ty of tobacco use 00:00:00 [facility] Exposure to Not sure University of SARS-CoV-2 [place] [facility] (event) Branch Alcohol intake 2021-07-29 2021-07-29 Current University of 00:00:00 00:00:00 non-drinker of [facility] alcohol (finding) Branch Tobacco Comment 2019-01-07 2019-01-07 3-4 ciggs a day Univ ersity of 00:00:00 00:00:00 [facility] Tobacco use and 2017-04-20 2017-04-20 Never used Universit y of exposure 00:00:00 00:00:00 [facility] Sex [birth year] Universit y of 00:00:00 00:00:00 [facility] Smoking Status Start Date Stop Date Source Never Smoker [facility] Light tobacco smoker 2017-04-20 00:00:00 [facility] ity of [facility] Medications Ordered Filled Start Stop Current Ordering Indication Dosage Frequency Signature Comments Components Source Medication Medication Date Date Medication? Clinician (SIG) Name Name sumatriptan 2020-10 Yes Take by Un brad succinate 0-01 mouth. ity of (IMITREX 10:19: [place] ORAL) [address] [place] [address] Branch sumatriptan 2020-10 Yes Take by Un brad succinate 0-01 mouth. ity of (IMITREX 10:19: [place] ORAL) [address] [place] [address] sumatriptan 2020-10 Yes Take by Un brad succinate 0-01 mouth. ity of (IMITREX 10:19: [place] ORAL) [address] [place] [address] sumatriptan 2020-10 Yes Take by Un brad succinate 0-01 mouth. ity of (IMITREX 10:19: [place] ORAL) [address] [place] [address] cetirizine 2020-10 Yes [id number] 10mg Take 1 U nivers (ZYRTEC) 10 0-01 tablet by ity of mg tablet 00:00: mouth [place] 00 daily. Medical Branch azelastine 2020-10 Yes [id number] 1{spray Use 1 Univers 137 mcg 0-01 } [place] in ity of (0.1 %) 00:00: each [place] nasal spray 00 nostril 2 Med ical (two) Branch times daily. Use in each nostril as directed fluticasone 2020-10 Yes [id number] 1{spray Use 1 Univers propionate 0-01 } [place] in ity o f 50 00:00: each [place] mcg/actuati 00 nostril Medic al on nasal daily. Branch spray bromphenira 2020-10 Yes [id number] 5mL Take 5 mL Univers mine-pseudo 0-01 by mouth 4 it y of ephedrine-D 00:00: (four[place] (BROMFED 00 times Medical DM) 2-30-10 daily as Bran ch mg/5 mL needed for syrup Congestion /Allergies . cetirizine 2020-10 Yes [id number] 10mg Take 1 U nivers (ZYRTEC) 10 0-01 tablet by ity of mg tablet 00:00: mouth [place] 00 daily. Medical Branch azelastine 2020-10 Yes [id number] 1{spray Use 1 Univers 137 mcg 0-01 } [place] in ity of (0.1 %) 00:00: each [place] nasal spray 00 nostril 2 Med ical (two) Branch times daily. Use in each nostril as directed fluticasone 2020-10 Yes [id number] 1{spray Use 1 Univers propionate 0-01 } [place] in ity o f 50 00:00: each [place] mcg/actuati 00 nostril Medic al on nasal daily. Branch spray bromphenira 2020-10 Yes [id number] 5mL Take 5 mL Univers mine-pseudo 0-01 by mouth 4 it y of ephedrine-D 00:00: (four[place] (BROMFED 00 times Medical DM) 2-30-10 daily as Bran ch mg/5 mL needed for syrup Congestion /Allergies . cetirizine 2020-10 Yes [id number] 10mg Take 1 U nivers (ZYRTEC) 10 0-01 tablet by ity of mg tablet 00:00: mouth [place] 00 daily. Medical Branch azelastine 2020-10 Yes [id number] 1{spray Use 1 Univers 137 mcg 0-01 } [place] in ity of (0.1 %) 00:00: each [place] nasal spray 00 nostril 2 Med ical (two) Branch times daily. Use in each nostril as directed fluticasone 2020-10 Yes [id number] 1{spray Use 1 Univers propionate 0-01 } [place] in ity o f 50 00:00: each [place] mcg/actuati 00 nostril Medic al on nasal daily. Branch spray bromphenira 2020-10 Yes [id number] 5mL Take 5 mL Univers mine-pseudo 0-01 by mouth 4 it y of ephedrine-D 00:00: (four) [place] (BROMFED 00 times Medical DM) 2-30-10 daily as Bran ch mg/5 mL needed for syrup Congestion /Allergies . cetirizine 2020-10 Yes [id number] 10mg Take 1 U nivers (ZYRTEC) 10 0-01 tablet by ity of mg tablet 00:00: mouth [place] 00 daily. Medical Branch azelastine 2020-10 Yes [id number] 1{spray Use 1 Univers 137 mcg 0-01 } [place] in ity of (0.1 %) 00:00: each [place] nasal spray 00 nostril 2 Med ical (two) Branch times daily. Use in each nostril as directed fluticasone 2020-10 Yes [id number] 1{spray Use 1 Univers propionate 0-01 } [place] in ity o f 50 00:00: each [place] mcg/actuati 00 nostril Medic al on nasal daily. Branch spray bromphenira 2020-10 Yes [id number] 5mL Take 5 mL Univers mine-pseudo 0-01 by mouth 4 it y of ephedrine-D 00:00: (four) [place] (BROMFED 00 times Medical DM) 2-30-10 daily as Bran ch mg/5 mL needed for syrup Congestion /Allergies . amoxicillin 2020-10- Yes [id number] 1{tbl} Take 1 Univers -clavulanat 0-01 10-09 tablet by it y of e 00:00: 04:59 mouth 2 [place] (AUGMENTIN) 00 :00 (two) Medical 875-125 mg [...] 10:06: [place] ORAL) 25 Medical Branch ibuprofen 2020-0 Yes [id number] 600mg Take 1 Univers 600 mg - tablet by ity of tablet 00:00: mouth [place] 00 every 6 Medical (six) Branch hours as needed for Pain (scale 4-6). ibuprofen 0 Yes [id number] 600mg Take 1 Univers 600 mg - tablet by ity of tablet 00:00: mouth [place] 00 every 6 Medical (six) Branch hours as needed for Pain (scale 4-6). ibuprofen 0 Yes [id number] 600mg Take 1 Univers 600 mg 9-23 tablet by ity of tablet 00:00: mouth [place] 00 every 6 Medical (six) Branch hours as needed for Pain (scale 4-6). ibuprofen 0 Yes [id number] 600mg Take 1 Univers 600 mg 9-23 tablet by ity of tablet 00:00: mouth [place] 00 every 6 Medical (six) Branch hours as needed for Pain (scale 4-6). ibuprofen 0 Yes [id number] 600mg Take 1 Univers 600 mg 9-23 tablet by ity of tablet 00:00: mouth [place] 00 every 6 Medical (six) Branch hours as needed for Pain (scale 4-6). cephALEXin 0 2020- Yes [id number] 500mg Take 1 Univers (KEFLEX) 07-21- capsule by ity of 500 mg 00:00: 04:59 mouth 3 [place] capsule 00 :00 (three) Medical times Branch daily for 10 days. cephALEXin 2020-0 2020- No [id number] 500mg Take 1 Univers (KEFLEX) 07-21 10- capsule by ity of 500 mg 00:00: 00:00 mouth 3 [place] capsule 00 :00 (three) Medical times Branch daily for 10 days. benzonatate 2020-0 Yes [id number] 100mg Take 1 Univers 100 mg 9-10 capsule by ity of capsule 00:00: mouth 3 (three) Medical times Branch daily as needed for Cough. benzonatate 1-0 Yes [id number] 100mg Take 1 Univers 100 mg 9-10 capsule by ity of capsule 00:00: mouth 3 (three) Medical times Branch daily as needed for Cough. benzonatate 2020-0 Yes [id number] 100mg Take 1 Univers 100 mg 9-10 capsule by ity of capsule 00:00: mouth (three) Medical times Branch daily as needed for Cough. benzonatate 2020-0 Yes [id number] 100mg Take 1 Univers 100 mg 9-10 capsule by ity of capsule 00:00: mouth (three) Medical times Branch daily as needed for Cough. benzonatate 2020-0 Yes [id number] 100mg Take 1 Univers 100 mg 9-10 capsule by ity of capsule 00:00: mouth (three) Medical times Branch daily as needed for Cough. benzonatate 2020-0 Yes [id number] 100mg Take 1 Univers 100 mg 9-10 capsule by ity of capsule 00:00: mouth (three) Medical times Branch daily as needed for Cough. benzonatate 2020-0 Yes [id number] 100mg Take 1 Univers 100 mg 9-10 capsule by ity of capsule 00:00: mouth (three) Medical times Branch daily as needed for Cough. benzonatate 2020-0 Yes [id number] 100mg Take 1 Univers 100 mg 9-10 capsule by ity of capsule 00:00: mouth (three) Medical times Branch daily as needed for Cough. benzonatate 2020-0 Yes [id number] 100mg Take 1 Univers 100 mg 9-10 [...] ORAL) 54 Medical Branch medroxyPROG 2020-0 Yes [id number] Take one Univers ESTERone 4-03 by mouth ity of (PROVERA) 00:00: days one [place] 10 [place] 00 through 10 Medical tablet of each Branch month beginning 02/27/20. medroxyPROG 2020-0 Yes [id number] Take one Univers ESTERone 4-03 by mouth ity of (PROVERA) 00:00: days one [place] 10 mg 00 through 10 Medical tablet of each Branch month beginning 02/27/20. medroxyPROG 2020-0 Yes [id number] Take one Univers ESTERone 4-03 by mouth ity of (PROVERA) 00:00: days one [place] 10 mg 00 through 10 Medical tablet of each Branch month beginning 02/27/20. medroxyPROG 2020-0 Yes [id number] Take one Univers ESTERone 4-03 by mouth ity of (PROVERA) 00:00: days one [place] 10 mg 00 through 10 Medical tablet of each Branch month beginning 02/27/20. medroxyPROG 2020-0 Yes [id number] Take one Univers ESTERone 4-03 by mouth ity of (PROVERA) 00:00: days one [place] 10 mg 00 through 10 Medical tablet of each Branch month beginning 02/27/20. medroxyPROG 2020-0 Yes [id number] Take one Univers ESTERone 4-03 by mouth ity of (PROVERA) 00:00: days one [place] 10 mg 00 through 10 Medical tablet of each Branch month beginning 02/27/20. medroxyPROG 2020-0 Yes [id number] Take one Univers ESTERone 4-03 by mouth ity of (PROVERA) 00:00: days one [place] 10 mg 00 through 10 Medical tablet of each Branch month beginning 02/27/20. medroxyPROG 2020-0 Yes [id number] Take one Univers ESTERone 4-03 by mouth ity of (PROVERA) 00:00: days one [place] 10 mg 00 through 10 Medical tablet of each Branch month beginning 02/27/20. medroxyPROG 2020-0 Yes [id number] Take one Univers ESTERone 4-03 by mouth ity of (PROVERA) 00:00: days one [place] 10 mg 00 through 10 Medical tablet of each Branch month beginning 02/27/20. medroxyPROG 2020-0 Yes [id number] Take one Univers ESTERone 4-03 by mouth ity of (PROVERA) 00:00: days one [place] 10 mg 00 through 10 Medical tablet of each Branch month beginning 02/27/20. medroxyPROG 2020-0 Yes [id number] Take one Univers ESTERone 4-03 by mouth ity of (PROVERA) 00:00: days one [place] 10 mg 00 through 10 Medical tablet of each Branch month beginning 02/27/20. medroxyPROG 2020-0 Yes [id number] Take one Univers ESTERone 4-03 by mouth ity of (PROVERA) 00:00: days one [place] 10 mg 00 through 10 Medical tablet of each Branch month beginning 02/27/20. medroxyPROG 2020-0 Yes [id number] Take one Univers ESTERone 4-03 by mouth ity of (PROVERA) 00:00: days one [place] 10 mg 00 through 10 Medical tablet of each Branch month beginning 02/27/20. medroxyPROG 2020-0 Yes [id number] Take one Univers ESTERone 4-03 by mouth ity of (PROVERA) 00:00: days one [place] 10 mg 00 through 10 Medical tablet of each Branch month beginning 02/27/20. medroxyPROG 2020-0 Yes [id number] Take one Univers ESTERone 4-03 by mouth ity of (PROVERA) 00:00: days one [place] 10 mg 00 through 10 Medical tablet of each Branch month beginning 02/27/20. amitriptyli 2020-0 Yes [id number] 25mg Take 1 Univers ne 25 mg 3-26 tablet by ity of tablet 00:00: mouth at [place] [address] bedtime. Medical Branch metoprolol 2020-0 Yes [id number] 50mg Take 1 Univers tartrate 50 3-26 tablet by ity of mg tablet 00:00: mouth 2 [place] (two) Medical times Branch daily. amitriptyli 2020-0 Yes [id number] 25mg Take 1 Univers ne 25 mg 3-26 tablet by ity of tablet 00:00: mouth at [place] [address] bedtime. Medical Branch metoprolol 2020-0 Yes [id number] 50mg Take 1 Univers tartrate 50 3-26 tablet by ity of mg tablet 00:00: mouth 2 [place] (two) Medical times Branch daily. amitriptyli 2020-0 Yes [id number] 25mg Take 1 Univers ne 25 mg 3-26 tablet by ity of tablet 00:00: mouth at [place] [address] bedtime. Medical Branch metoprolol 2020-0 Yes [id number] 50mg Take 1 Univers tartrate 50 3-26 tablet by ity of mg tablet 00:00: mouth 2 [place] (two) Medical times Branch daily. amitriptyli 2020-0 Yes [id number] 25mg Take 1 Univers ne 25 mg 3-26 tablet by ity of tablet 00:00: mouth at [place] [address] bedtime. Medical Branch metoprolol 2020-0 Yes [id number] 50mg Take 1 Univers tartrate 50 3-26 tablet by ity of mg tablet 00:00: mouth 2 [place] (two) Medical times Branch daily. amitriptyli 2020-0 Yes [id number] 25mg Take 1 Univers ne 25 mg 3-26 tablet by ity of tablet 00:00: mouth at [place] [address] bedtime. Medical Branch metoprolol 2020-0 Yes [id number] 50mg Take 1 Univers tartrate 50 3-26 tablet by ity of mg tablet 00:00: mouth 2 [place] (two) Medical times Branch daily. amitriptyli 2020-0 Yes [id number] 25mg Take 1 Univers ne 25 mg 3-26 tablet by ity of tablet 00:00: mouth at [place] [address] bedtime. Medical Branch metoprolol 2020-0 Yes [id number] 50mg Take 1 Univers tartrate 50 3-26 tablet by ity of mg tablet 00:00: mouth 2 [place] (two) Medical times Branch daily. amitriptyli 2020-0 Yes [id number] 25mg Take 1 Univers ne 25 mg 3-26 tablet by ity of tablet 00:00: mouth at [place] [address] bedtime. Medical Branch metoprolol 2020-0 Yes [id number] 50mg Take 1 Univers tartrate 50 3-26 tablet by ity of mg tablet 00:00: mouth 2 [place] (two) Medical times Branch daily. amitriptyli 2020-0 Yes [id number] 25mg Take 1 Univers ne 25 mg 3-26 tablet by ity of tablet 00:00: mouth at [place] [address] bedtime. Medical Branch metoprolol 2020-0 Yes [id number] 50mg Take 1 Univers tartrate 50 3-26 tablet by ity of mg tablet 00:00: mouth 2 [place] (two) Medical times Branch daily. amitriptyli 2020-0 Yes [id number] 25mg Take 1 Univers ne 25 mg 3-26 tablet by ity of tablet 00:00: mouth at [place] [address] bedtime. Medical Branch metoprolol 2020-0 Yes [id number] 50mg Take 1 Univers tartrate 50 3-26 tablet by ity of mg tablet 00:00: mouth 2 [place] (two) Medical times Branch daily. amitriptyli 2020-0 Yes [id number] 25mg Take 1 Univers ne 25 mg 3-26 tablet by ity of tablet 00:00: mouth at [place] [address] bedtime. Medical Branch metoprolol 2020-0 Yes [id number] 50mg Take 1 Univers tartrate 50 3-26 tablet by ity of mg tablet 00:00: mouth 2 [place] (two) Medical times Branch daily. amitriptyli 2020-0 Yes [id number] 25mg Take 1 Univers ne 25 mg 3-26 tablet by ity of tablet 00:00: mouth at [place] [address] bedtime. Medical Branch metoprolol 2020-0 Yes [id number] 50mg Take 1 Univers tartrate 50 3-26 tablet by ity of mg tablet 00:00: mouth 2 [place] (two) Medical times Branch daily. amitriptyli 2020-0 Yes [id number] 25mg Take 1 Univers ne 25 mg 3-26 tablet by ity of tablet 00:00: mouth at [place] [address] bedtime. Medical Branch metoprolol 2020-0 Yes [id number] 50mg Take 1 Univers tartrate 50 3-26 tablet by ity of mg tablet 00:00: mouth 2 [place] (two) Medical times Branch daily. amitriptyli 2020-0 Yes [id number] 25mg Take 1 Univers ne 25 mg 3-26 tablet by ity of tablet 00:00: mouth at [place] [address] bedtime. Medical Branch metoprolol 2020-0 Yes [id number] 50mg Take 1 Univers tartrate 50 3-26 tablet by ity of mg tablet 00:00: mouth 2 [place] (two) Medical times Branch daily. amitriptyli 2020-0 Yes [id number] 25mg Take 1 Univers ne 25 mg 3-26 tablet by ity of tablet 00:00: mouth at [place] [address] bedtime. Medical Branch amitriptyli 2020-0 Yes [id number] 25mg Take 1 Univers ne 25 mg 3-26 tablet by ity of tablet 00:00: mouth at [place] [address] bedtime. Medical Branch metoprolol 2020-0 Yes [id number] 50mg Take 1 Univers tartrate 50 3-26 tablet by ity of mg tablet 00:00: mouth 2 [place] (two) Medical times Branch daily. amitriptyli 2020-0 Yes [id number] 25mg Take 1 Univers ne 25 mg 3-26 tablet by ity of tablet 00:00: mouth at [place] [address] bedtime. Medical Branch metoprolol 2020-0 Yes [id number] 50mg Take 1 Univers tartrate 50 3-26 tablet by ity of mg tablet 00:00: mouth 2 [place] (two) Medical times Branch daily. metoprolol 2020-0 Yes [id number] 50mg Take 1 Univers tartrate 50 3-26 tablet by ity of mg tablet 00:00: mouth 2 [place] (two) Medical times Branch daily. amitriptyli 2020-0 Yes [id number] 25mg Take 1 Univers ne 25 mg 3-26 tablet by ity of tablet 00:00: mouth at [place] [address] bedtime. Medical Branch metoprolol 2020-0 Yes [id number] 50mg Take 1 Univers tartrate 50 3-26 tablet by ity of mg tablet 00:00: mouth 2 [place] (two) Medical times Branch daily. amitriptyli 2020-0 Yes [id number] 25mg Take 1 Univers ne 25 mg 3-26 tablet by ity of tablet 00:00: mouth at [place] [address] bedtime. Medical Branch metoprolol 2020-0 Yes [id number] 50mg Take 1 Univers tartrate 50 3-26 tablet by ity of mg tablet 00:00: mouth 2 [place] (two) Medical times Branch daily. amitriptyli 2020-0 Yes [id number] 25mg Take 1 Univers ne 25 mg 3-26 tablet by ity of tablet 00:00: mouth at [place] [address] bedtime. Medical Branch metoprolol 2020-0 Yes [id number] 50mg Take 1 Univers tartrate 50 3-26 tablet by ity of mg tablet 00:00: mouth 2 [place] (two) Medical times Branch daily. amitriptyli 2020-0 Yes [id number] 25mg Take 1 Univers ne 25 mg 3-26 tablet by ity of tablet 00:00: mouth at [place] [address] bedtime. Medical Branch metoprolol 2020-0 Yes [id number] 50mg Take 1 Univers tartrate 50 3-26 tablet by ity of mg tablet 00:00: mouth 2 [place] (two) Medical times Branch daily. amitriptyli 2020-0 Yes [id number] 25mg Take 1 Univers ne 25 mg 3-26 tablet by ity of tablet 00:00: mouth at [place] [address] bedtime. Medical Branch metoprolol 2020-0 Yes [id number] 50mg Take 1 Univers tartrate 50 3-26 tablet by ity of mg tablet 00:00: mouth 2 [place] (two) Medical times Branch daily. amitriptyli 2020-0 Yes [id number] 25mg Take 1 Univers ne 25 mg 3-26 tablet by ity of tablet 00:00: mouth at [place] [address] bedtime. Medical Branch metoprolol 2020-0 Yes [id number] 50mg Take 1 Univers tartrate 50 3-26 tablet by ity of mg tablet 00:00: mouth 2 [place] (two) Medical times Branch daily. amitriptyli 2020-0 Yes [id number] 25mg Take 1 Univers ne 25 mg 3-26 tablet by ity of tablet 00:00: mouth at [place] 00 bedtime. Medical Branch metoprolol 2020-0 Yes [id number] 50mg Take 1 Univers tartrate 50 3-26 tablet by ity of mg tablet 00:00: mouth 2 [place] 00 (two) Medical times Branch daily. indomethaci 2020-0 Yes [id number] 50mg Take 1 Univers n 50 mg 2-14 capsule by ity of capsule 00:00: mouth 3 00 (three) Medical times Branch daily with meals. metoprolol 2020-0 Yes [id number] Take BP Univers tartrate 25 2-14 twice a ity o f mg tablet 00:00: day.If SBP [place] 00 is less Medical than 130 Branch take 25mg, if over 130 can take 50mg.If heart rate is under 60 only take 25mg, do not take 50mg. albuterol 2020-0 Yes [id number] 2{puff} Inhale 2 Univers 90 2-14 Puffs ity of mcg/actuati 00:00: every 6 [place] as on inhaler 00 (six) Medical hours as Branch needed for Wheezing or Shortness of Breath. levETIRAcet 2020-0 Yes [id number] 500mg Take 1 Univers am (KEPPRA) 2-14 tablet by ity of 500 mg 00:00: mouth 2 [place] tablet 00 (two) Medical times Branch daily. budesonide- 2020-0 Yes [id number] 2{puff} Inhale 2 Univers formoteroL 2-14 Puffs 2 ity of 160-4.5 00:00: (two) [place] mcg/actuati 00 times Medical on inhaler daily. Branch indomethaci 2020-0 Yes [id number] 50mg Take 1 Univers n 50 mg 2-14 capsule by ity of capsule 00:00: mouth 3 [place] 00 (three) Medical times Branch daily with meals. albuterol 2020-0 Yes [id number] 2{puff} Inhale 2 Univers 90 2-14 Puffs ity of mcg/actuati 00:00: every 6 [place] as on inhaler 00 (six) Medical hours as Branch needed for Wheezing or Shortness of Breath. levETIRAcet 2020-0 Yes [id number] 500mg Take 1 Univers am (KEPPRA) 2-14 tablet by ity of 500 mg 00:00: mouth 2 [place] tablet 00 (two) Medical times Branch daily. budesonide- 2020-0 Yes [id number] 2{puff} Inhale 2 Univers formoteroL 2-14 Puffs 2 ity of 160-4.5 00:00: (two) [place] mcg/actuati 00 times Medical on inhaler daily. Branch indomethaci 2020-0 Yes [id number] 50mg Take 1 Univers n 50 mg 2-14 capsule by ity of capsule 00:00: mouth 3 [place] 00 (three) Medical times Branch daily with meals. albuterol 2020-0 Yes [id number] 2{puff} Inhale 2 Univers 90 2-14 Puffs ity of mcg/actuati 00:00: every 6 [place] as on inhaler 00 (six) Medical hours as Branch needed for Wheezing or Shortness of Breath. levETIRAcet 2020-0 Yes [id number] 500mg Take 1 Univers am (KEPPRA) 2-14 tablet by ity of 500 mg 00:00: mouth 2 [place] tablet 00 (two) Medical times Branch daily. budesonide- 2020-0 Yes [id number] 2{puff} Inhale 2 Univers formoteroL 2-14 Puffs 2 ity of 160-4.5 00:00: (two) [place] mcg/actuati 00 times Medical on inhaler daily. Branch indomethaci 2020-0 Yes [id number] 50mg Take 1 Univers n 50 mg 2-14 capsule by ity of capsule 00:00: mouth 3 [place] 00 (three) Medical times Branch daily with meals. albuterol 2020-0 Yes [id number] 2{puff} Inhale 2 Univers 90 2-14 Puffs ity of mcg/actuati 00:00: every 6 [place] as on inhaler 00 (six) Medical hours as Branch needed for Wheezing or Shortness of Breath. levETIRAcet 2020-0 Yes [id number] 500mg Take 1 Univers am (KEPPRA) 2-14 tablet by ity of 500 mg 00:00: mouth 2 [place] tablet 00 (two) Medical times Branch daily. budesonide- 2020-0 Yes [id number] 2{puff} Inhale 2 Univers formoteroL 2-14 Puffs 2 ity of 160-4.5 00:00: (two) [place] mcg/actuati 00 times Medical on inhaler daily. Branch indomethaci 2020-0 Yes [id number] 50mg Take 1 Univers n 50 mg 2-14 capsule by ity of capsule 00:00: mouth 3 (three) Medical times Branch daily with meals. albuterol 2020-0 Yes [id number] 2{puff} Inhale 2 Univers 90 2-14 Puffs ity of mcg/actuati 00:00: every 6 [place] as on inhaler 00 (six) Medical hours as Branch needed for Wheezing or Shortness of Breath. levETIRAcet 2020-0 Yes [id number] 500mg Take 1 [facility] am (KEPPRA) 2-14 tablet by ity of 500 mg 00:00: mouth 2 [place] tablet 00 (two) Medical times Branch daily. budesonide- 2020-0 Yes [id number] 2{puff} Inhale 2 [facility] formoteroL 2-14 Puffs 2 ity of 160-4.5 00:00: (two) [place] mcg/actuati 00 times Medical on inhaler daily. Branch indomethaci 2020-0 Yes [id number] 50mg Take 1 [facility] n 50 mg 2-14 capsule by ity of capsule 00:00: mouth 3 (three) Medical times Branch daily with meals. albuterol 2020-0 Yes [id number] 2{puff} Inhale 2 [facility] 90 2-14 Puffs ity of mcg/actuati 00:00: every 6 [place] on inhaler 00 (six) Medical hours as Branch needed for Wheezing or Shortness of Breath. levETIRAcet 2020-0 Yes [id number] 500mg Take 1 [facility] am (KEPPRA) 2-14 tablet by ity of 500 mg 00:00: mouth 2 [place] tablet 00 (two) Medical times Branch daily. budesonide- 2020-0 Yes [id number] 2{puff} Inhale 2 [facility] formoteroL 2-14 Puffs 2 ity of 160-4.5 00:00: (two) [place] mcg/actuati 00 times Medical on inhaler daily. Branch indomethaci 2020-0 Yes [id number] 50mg Take 1 [facility] n 50 mg 2-14 capsule by ity of capsule 00:00: mouth 3 [place] 00 (three) Medical times Branch daily with meals. albuterol 2020-0 Yes [id number] 2{puff} Inhale 2 [facility] 90 2-14 Puffs ity of mcg/actuati 00:00: every 6 [place] on inhaler 00 (six) Medical hours as Branch needed for Wheezing or Shortness of Breath. levETIRAcet 2020-0 Yes [id number] 500mg Take 1 [facility] am (KEPPRA) 2-14 tablet by ity of 500 mg 00:00: mouth 2 [place] tablet 00 (two) Medical times Branch daily. budesonide- 2020-0 Yes [id number] 2{puff} Inhale 2 [facility] formoteroL 2-14 Puffs 2 ity of 160-4.5 00:00: (two) [place] mcg/actuati 00 times Medical on inhaler daily. Branch indomethaci 2020-0 Yes [id number] 50mg Take 1 [facility] n 50 mg 2-14 capsule by ity of capsule 00:00: mouth 3 [place] 00 (three) Medical times Branch daily with meals. albuterol 2020-0 Yes [id number] 2{puff} Inhale 2 [facility] 90 2-14 Puffs ity of mcg/actuati 00:00: every 6 [place] on inhaler 00 (six) Medical hours as Branch needed for Wheezing or Shortness of Breath. levETIRAcet 2020-0 Yes [id number] 500mg Take 1 [facility] am (KEPPRA) 2-14 tablet by ity of 500 mg 00:00: mouth 2 [place] tablet 00 (two) Medical times Branch daily. budesonide- 2020-0 Yes [id number] 2{puff} Inhale 2 [facility] formoteroL 2-14 Puffs 2 ity of 160-4.5 00:00: (two) [place] mcg/actuati 00 times Medical on inhaler daily. Branch indomethaci 2020-0 Yes [id number] 50mg Take 1 [facility] n 50 mg 2-14 capsule by ity of capsule 00:00: mouth 3 [place] 00 (three) Medical times Branch daily with meals. albuterol 2020-0 Yes [id number] 2{puff} Inhale 2 [facility] 90 2-14 Puffs ity of mcg/actuati 00:00: every 6 [place] on inhaler 00 (six) Medical hours as Branch needed for Wheezing or Shortness of Breath. levETIRAcet 2020-0 Yes [id number] 500mg Take 1 [facility] am (KEPPRA) 2-14 tablet by ity of 500 mg 00:00: mouth 2 [place] tablet 00 (two) Medical times Branch daily. budesonide- 2020-0 Yes [id number] 2{puff} Inhale 2 [facility] formoteroL 2-14 Puffs 2 ity of 160-4.5 00:00: (two) [place] mcg/actuati 00 times Medical on inhaler daily. Branch indomethaci 2020-0 Yes [id number] 50mg Take 1 [facility] n 50 mg 2-14 capsule by ity of capsule 00:00: mouth 3 [place] 00 (three) Medical times Branch daily with meals. albuterol 2020-0 Yes [id number] 2{puff} Inhale 2 [facility] 90 2-14 Puffs ity of mcg/actuati 00:00: every 6 [place] on inhaler 00 (six) Medical hours as Branch needed for Wheezing or Shortness of Breath. levETIRAcet 2020-0 Yes [id number] 500mg Take 1 [facility] am (KEPPRA) 2-14 tablet by ity of 500 mg 00:00: mouth 2 [place] tablet 00 (two) Medical times Branch daily. budesonide- 2020-0 Yes [id number] 2{puff} Inhale 2 [facility] formoteroL 2-14 Puffs 2 ity of 160-4.5 00:00: (two) [place] mcg/actuati 00 times Medical on inhaler daily. Branch indomethaci 2020-0 Yes [id number] 50mg Take 1 [facility] n 50 mg 2-14 capsule by ity of capsule 00:00: mouth 3 [place] 00 (three) Medical times Branch daily with meals. albuterol 2020-0 Yes [id number] 2{puff} Inhale 2 [facility] 90 2-14 Puffs ity of mcg/actuati 00:00: every 6 [place] on inhaler 00 (six) Medical hours as Branch needed for Wheezing or Shortness of Breath. levETIRAcet 2020-0 Yes [id number] 500mg Take 1 [facility] am (KEPPRA) 2-14 tablet by ity of 500 mg 00:00: mouth 2 [place] tablet 00 (two) Medical times Branch daily. budesonide- 2020-0 Yes [id number] 2{puff} Inhale 2 [facility] formoteroL 2-14 Puffs 2 ity of 160-4.5 00:00: (two) [place] mcg/actuati 00 times Medical on inhaler daily. Branch budesonide- 2020-0 Yes [id number] 2{puff} Inhale 2 [facility] formoteroL 2-14 Puffs 2 ity of 160-4.5 00:00: (two) [place] mcg/actuati 00 times Medical on inhaler daily. Branch indomethaci 2020-0 Yes [id number] 50mg Take 1 [facility] n 50 mg 2-14 capsule by ity of capsule 00:00: mouth 3 [place] 00 (three) Medical times Branch daily with meals. albuterol 2020-0 Yes [id number] 2{puff} Inhale 2 [facility] 90 2-14 Puffs ity of mcg/actuati 00:00: every 6 [place] on inhaler 00 (six) Medical hours as Branch needed for Wheezing or Shortness of Breath. levETIRAcet 2020-0 Yes [id number] 500mg Take 1 [facility] am (KEPPRA) 2-14 tablet by ity of 500 mg 00:00: mouth 2 [place] tablet 00 (two) Medical times Branch daily. indomethaci 2020-0 Yes [id number] 50mg Take 1 [facility] n 50 mg 2-14 capsule by ity of capsule 00:00: mouth 3 [place] 00 (three) Medical times Branch daily with meals. budesonide- 2020-0 Yes [id number] 2{puff} Inhale 2 [facility] formoteroL 2-14 Puffs 2 ity of 160-4.5 00:00: (two) [place] mcg/actuati 00 times Medical on inhaler daily. Branch indomethaci 2020-0 Yes [id number] 50mg Take 1 [facility] n 50 mg 2-14 capsule by ity of capsule 00:00: mouth 3 [place] 00 (three) Medical times Branch daily with meals. albuterol 2020-0 Yes [id number] 2{puff} Inhale 2 [facility] 90 2-14 Puffs ity of mcg/actuati 00:00: every 6 [place] on inhaler 00 (six) Medical hours as Branch needed for Wheezing or Shortness of Breath. levETIRAcet 2020-0 Yes [id number] 500mg Take 1 [facility] am (KEPPRA) 2-14 tablet by ity of 500 mg 00:00: mouth 2 [place] tablet 00 (two) Medical times Branch daily. albuterol 2020-0 Yes [id number] 2{puff} Inhale 2 [facility] 90 2-14 Puffs ity of mcg/actuati 00:00: every 6 [place] on inhaler 00 (six) Medical hours as Branch needed for Wheezing or Shortness of Breath. budesonide- 2020-0 Yes [id number] 2{puff} Inhale 2 [facility] formoteroL 2-14 Puffs 2 ity of 160-4.5 00:00: (two) [place] mcg/actuati 00 times Medical on inhaler daily. Branch levETIRAcet 2020-0 Yes [id number] 500mg Take 1 [facility] am (KEPPRA) 2-14 tablet by ity of 500 mg 00:00: mouth 2 [place] tablet 00 (two) Medical times Branch daily. indomethaci 2020-0 Yes [id number] 50mg Take 1 [facility] n 50 mg 2-14 capsule by ity of capsule 00:00: mouth 3 [place] 00 (three) Medical times Branch daily with meals. albuterol 2020-0 Yes [id number] 2{puff} Inhale 2 [facility] 90 2-14 Puffs ity of mcg/actuati 00:00: every 6 [place] on inhaler 00 (six) Medical hours as Branch needed for Wheezing or Shortness of Breath. levETIRAcet 2020-0 Yes [id number] 500mg Take 1 [facility] am (KEPPRA) 2-14 tablet by ity of 500 mg 00:00: mouth 2 [place] tablet 00 (two) Medical times Branch daily. budesonide- 2020-0 Yes [id number] 2{puff} Inhale 2 [facility] formoteroL 2-14 Puffs 2 ity of 160-4.5 00:00: (two) [place] mcg/actuati 00 times Medical on inhaler daily. Branch indomethaci 2020-0 Yes [id number] 50mg Take 1 [facility] n 50 mg 2-14 capsule by ity of capsule 00:00: mouth 3 [place] 00 (three) Medical times Branch daily with meals. albuterol 2020-0 Yes [id number] 2{puff} Inhale 2 [facility] 90 2-14 Puffs ity of mcg/actuati 00:00: every 6 [place] on inhaler 00 (six) Medical hours as Branch needed for Wheezing or Shortness of Breath. levETIRAcet 2020-0 Yes [id number] 500mg Take 1 [facility] am (KEPPRA) 2-14 tablet by ity of 500 mg 00:00: mouth 2 [place] tablet 00 (two) Medical times Branch daily. budesonide- 2020-0 Yes [id number] 2{puff} Inhale 2 [facility] formoteroL 2-14 Puffs 2 ity of 160-4.5 00:00: (two) [place] mcg/actuati 00 times Medical on inhaler daily. Branch indomethaci 2020-0 Yes [id number] 50mg Take 1 [facility] n 50 mg 2-14 capsule by ity of capsule 00:00: mouth 3 [place] 00 (three) Medical times Branch daily with meals. albuterol 2020-0 Yes [id number] 2{puff} Inhale 2 [facility] 90 2-14 Puffs ity of mcg/actuati 00:00: every 6 [place] on inhaler 00 (six) Medical hours as Branch needed for Wheezing or Shortness of Breath. levETIRAcet 2020-0 Yes [id number] 500mg Take 1 [facility] am (KEPPRA) 2-14 tablet by ity of 500 mg 00:00: mouth 2 [place] tablet 00 (two) Medical times Branch daily. budesonide- 2020-0 Yes [id number] 2{puff} Inhale 2 [facility] formoteroL 2-14 Puffs 2 ity of 160-4.5 00:00: (two) [place] mcg/actuati 00 times Medical on inhaler daily. Branch indomethaci 2020-0 Yes [id number] 50mg Take 1 [facility] n 50 mg 2-14 capsule by ity of capsule 00:00: mouth 3 [place] 00 (three) Medical times Branch daily with meals. albuterol 2020-0 Yes [id number] 2{puff} Inhale 2 [facility] 90 2-14 Puffs ity of mcg/actuati 00:00: every 6 [place] on inhaler 00 (six) Medical hours as Branch needed for Wheezing or Shortness of Breath. levETIRAcet 2020-0 Yes [id number] 500mg Take 1 [facility] am (KEPPRA) 2-14 tablet by ity of 500 mg 00:00: mouth 2 [place] tablet 00 (two) Medical times Branch daily. budesonide- 2020-0 Yes [id number] 2{puff} Inhale 2 [facility] formoteroL 2-14 Puffs 2 ity of 160-4.5 00:00: (two) [place] mcg/actuati 00 times Medical on inhaler daily. Branch indomethaci 2020-0 Yes [id number] 50mg Take 1 [facility] n 50 mg 2-14 capsule by ity of capsule 00:00: mouth 3 [place] 00 (three) Medical times Branch daily with meals. albuterol 2020-0 Yes [id number] 2{puff} Inhale 2 [facility] 90 2-14 Puffs ity of mcg/actuati 00:00: every 6 [place] on inhaler 00 (six) Medical hours as Branch needed for Wheezing or Shortness of Breath. levETIRAcet 2020-0 Yes [id number] 500mg Take 1 [facility] am (KEPPRA) 2-14 tablet by ity of 500 mg 00:00: mouth 2 [place] tablet 00 (two) Medical times Branch daily. budesonide- 2020-0 Yes [id number] 2{puff} Inhale 2 [facility] formoteroL 2-14 Puffs 2 ity of 160-4.5 00:00: (two) [place] mcg/actuati 00 times Medical on inhaler daily. Branch indomethaci 2020-0 Yes [id number] 50mg Take 1 [facility] n 50 mg 2-14 capsule by ity of capsule 00:00: mouth 3 (three) Medical times Branch daily with meals. albuterol 2020-0 Yes [id number] 2{puff} Inhale 2 [facility] 90 2-14 Puffs ity of mcg/actuati 00:00: every 6 [place] on inhaler 00 (six) Medical hours as Branch needed for Wheezing or Shortness of Breath. levETIRAcet 2020-0 Yes [id number] 500mg Take 1 [facility] am (KEPPRA) 2-14 tablet by ity of 500 mg 00:00: mouth 2 [place] tablet 00 (two) Medical times Branch daily. budesonide- 2020-0 Yes [id number] 2{puff} Inhale 2 [facility] formoteroL 2-14 Puffs 2 ity of 160-4.5 00:00: (two) [place] mcg/actuati 00 times Medical on inhaler daily. Branch indomethaci 2020-0 Yes [id number] 50mg Take 1 [facility] n 50 mg 2-14 capsule by ity of capsule 00:00: mouth 3 (three) Medical times Branch daily with meals. albuterol 2020-0 Yes [id number] 2{puff} Inhale 2 [facility] 90 2-14 Puffs ity of mcg/actuati 00:00: every 6 [place] on inhaler 00 (six) Medical hours as Branch needed for Wheezing or Shortness of Breath. budesonide- 2020-0 Yes [id number] 2{puff} Inhale 2 [facility] formoteroL 2-14 Puffs 2 ity of 160-4.5 00:00: (two) [place] mcg/actuati 00 times Medical on inhaler daily. Branch indomethaci 2020-0 Yes [id number] 50mg Take 1 [facility] n 50 mg 2-14 capsule by ity of capsule 00:00: mouth 3 [place] 00 (three) Medical times Branch daily with meals. albuterol 2020-0 Yes [id number] 2{puff} Inhale 2 [facility] 90 2-14 Puffs ity of mcg/actuati 00:00: every 6 [place] on inhaler 00 (six) Medical hours as Branch needed for Wheezing or Shortness of Breath. levETIRAcet 2020-0 Yes [id number] 500mg Take 1 [facility] am (KEPPRA) 2-14 tablet by ity of 500 mg 00:00: mouth 2 [place] tablet 00 (two) Medical times Branch daily. levETIRAcet 2020-0 Yes [id number] 500mg Take 1 [facility] am (KEPPRA) 2-14 tablet by ity of 500 mg 00:00: mouth 2 [place] tablet 00 (two) Medical times Branch daily. budesonide- 2020-0 Yes [id number] 2{puff} Inhale 2 [facility] formoteroL 2-14 Puffs 2 ity of 160-4.5 00:00: (two) [place] mcg/actuati 00 times Medical on inhaler daily. Branch indomethaci 2020-0 Yes [id number] 50mg Take 1 [facility] n 50 mg 2-14 capsule by ity of capsule 00:00: mouth 3 [place] 00 (three) Medical times Branch daily with meals. albuterol 2020-0 Yes [id number] 2{puff} Inhale 2 [facility] 90 2-14 Puffs ity of mcg/actuati 00:00: every 6 [place] on inhaler 00 (six) Medical hours as Branch needed for Wheezing or Shortness of Breath. levETIRAcet 2020-0 Yes [id number] 500mg Take 1 [facility] am (KEPPRA) 2-14 tablet by ity of 500 mg 00:00: mouth 2 [place] tablet 00 (two) Medical times Branch daily. budesonide- 2020-0 Yes [id number] 2{puff} Inhale 2 [facility] formoteroL 2-14 Puffs 2 ity of 160-4.5 00:00: (two) [place] mcg/actuati 00 times Medical on inhaler daily. Branch indomethaci 2020-0 Yes [id number] 50mg Take 1 [facility] n 50 mg 2-14 capsule by ity of capsule 00:00: mouth 3 [place] 00 (three) Medical times Branch daily with meals. albuterol 2020-0 Yes [id number] 2{puff} Inhale 2 [facility] 90 2-14 Puffs ity of mcg/actuati 00:00: every 6 [place] on inhaler 00 (six) Medical hours as Branch needed for Wheezing or Shortness of Breath. levETIRAcet 2020-0 Yes [id number] 500mg Take 1 [facility] am (KEPPRA) 2-14 tablet by ity of 500 mg 00:00: mouth 2 [place] tablet 00 (two) Medical times Branch daily. albuterol 2020-0 Yes [id number] 2{puff} Inhale 2 [facility] 90 2-14 Puffs ity of mcg/actuati 00:00: every 6 [place] on inhaler 00 (six) Medical hours as Branch needed for Wheezing or Shortness of Breath. budesonide- 2020-0 Yes [id number] 2{puff} Inhale 2 [facility] formoteroL 2-14 Puffs 2 ity of 160-4.5 00:00: (two) [place] mcg/actuati 00 times Medical on inhaler daily. Branch indomethaci 2019-0 Yes [id number] 50mg Take 1 [facility] n 50 mg 2-14 capsule by ity of capsule 00:00: mouth 3 [place] 00 (three) Medical times Branch daily with meals. levETIRAcet 2020-0 Yes [id number] 500mg Take 1 [facility] am (KEPPRA) 2-14 tablet by ity of 500 mg 00:00: mouth 2 [place] tablet 00 (two) Medical times Branch daily. metoprolol 2020-0 Yes [id number] Take BP [facility] tartrate 25 2-14 twice a ity o f mg tablet 00:00: day.If SBP [place] 00 is less Medical than 130 Branch take 25mg, if over 130 can take 50mg.If heart rate is under 60 only take 25mg, do not take 50mg. predniSONE 2020-0 Yes [id number] 20mg Take 1 [facility] 20 mg 2-14 tablet by ity of tablet 00:00: mouth 2 [place] 00 (two) Medical times Branch daily. ipratropium 2020-0 Yes [id number] 2{spray Use 2 [facility] 0.03 % 2-14 } Sprays in ity of nasal spray 00:00: each [place] nostril 3 Medical (three) Branch times daily. albuterol 2020-0 Yes [id number] 2{puff} Inhale 2 [facility] 90 2-14 Puffs ity of mcg/actuati 00:00: every 6 [place] on inhaler 00 (six) Medical hours as Branch needed for Wheezing or Shortness of Breath. budesonide- 2020-0 Yes [id number] 2{puff} Inhale 2 [facility] formoteroL 2-14 Puffs 2 ity of 160-4.5 00:00: (two) [place] mcg/actuati 00 times Medical on inhaler daily. Branch indomethaci 2020-0 Yes [id number] 50mg Take 1 [facility] n 50 mg 2-14 capsule by ity of capsule 00:00: mouth 3 [place] (three) Medical times Branch daily with meals. levETIRAcet 2020-0 Yes [id number] 500mg Take 1 [facility] am (KEPPRA) 2-14 tablet by ity of 500 mg 00:00: mouth 2 [place] tablet 00 (two) Medical times Branch daily. metoprolol 2020-0 Yes [id number] Take BP [facility] tartrate 25 2-14 twice a ity o f mg tablet 00:00: day.If SBP [place] 00 is less Medical than 130 Branch take 25mg, if over 130 can take 50mg.If heart rate is under 60 only take 25mg, do not take 50mg. predniSONE 2020-0 Yes [id number] 20mg Take 1 [facility] 20 mg 2-14 tablet by ity of tablet 00:00: mouth 2 [place] 00 (two) Medical times Branch daily. ipratropium 2020-0 Yes [id number] 2{spray Use 2 [facility] 0.03 % 2-14 } Sprays in ity of nasal spray 00:00: each [place] nostril 3 Medical (three) Branch times daily. predniSONE 2020-0 Yes [id number] 20mg Take 1 [facility] 20 mg 2-14 tablet by ity of tablet 00:00: mouth 2 [place] 00 (two) Medical times Branch daily. budesonide- Yes [id number] 2{puff} Inhale 2 [facility] formoteroL 2-14 Puffs 2 ity of 160-4.5 00:00: (two) [place] mcg/actuati 00 times Medical on inhaler daily. Branch ipratropium 2019- No [id number] 2{spray Use 2 [facility] 0.03 % 12-12 } Sprays in ity of nasal spray 00:00: 00:00 each [place] 00 :00 nostril 3 Medical (three) Branch times daily. predniSONE 2019- No [id number] 20mg Take 1 [facility] 20 mg 12-12 tablet by ity of tablet 00:00: 00:00 mouth 2 [place] 00 :00 (two) Medical times Branch daily. metoprolol 2019- No [id number] Take BP [facility] tartrate 25 12-12 twice a ity of mg tablet 00:00: 00:00 day.If SBP [place] 00 :00 is less Medical than 130 Branch take 25mg, if over 130 can take 50mg.If heart rate is under 60 only take 25mg, do not take 50mg. albuterol 2019- No [id number] 2{puff} Inhale 2 [facility] 90 -12 12-14 Puffs ity of mcg/actuati 00:00: 00:00 every 6 [place] on inhaler 00 :00 (six) Medical hours as Branch needed for Wheezing or Shortness of Breath. budesonide- 2019- No [id number] 2{puff} Inhale 2 [facility] formoteroL -14 -14 Puffs 2 ity o f 160-4.5 00:00: 00:00 (two) [place] mcg/actuati 00 :00 times Medical on inhaler daily. Branch indomethaci 2019- No [id number] 50mg Take 1 [facility] n 50 mg 12-12- capsule by ity o f capsule 00:00: 00:00 mouth 3 [place] 00 :00 (three) Medical times Branch daily with meals. levETIRAcet 2019- No [id number] 500mg Take 1 [facility] am (KEPPRA) 12-12- tablet by it y of 500 mg 00:00: 00:00 mouth 2 [place] tablet 00 :00 (two) Medical times Branch daily. metoprolol 2019-0 2020- No [id number] Take BP [facility] tartrate 25 12-12 twice a ity of mg tablet 00:00: 00:00 day.If SBP [place] 00 :00 is less Medical than 130 Branch take 25mg, if over 130 can take 50mg.If heart rate is under 60 only take 25mg, do not take 50mg. predniSONE 2019-0 2020- No [id number] 20mg Take 1 [facility] 20 mg 12-12 tablet by ity of tablet 00:00: 00:00 mouth 2 [place] 00 :00 (two) Medical times [place] daily. topiramate 2020-0 Yes [facility] 25 mg 1-28 ity of tablet 00:00: [place] [facility] topiramate 2020-0 Yes [facility] 25 mg 1-28 ity of tablet 00:00: [address] topiramate 2020-0 Yes [facility] 25 mg 1-28 ity of tablet 00:00: [address] topiramate 2020-0 Yes [facility] 25 mg 1-28 ity of tablet 00:00: [address] topiramate 2020-0 Yes [facility] 25 mg 1-28 ity of tablet 00:00: [address] topiramate 2020-0 Yes [facility] 25 mg 1-28 ity of tablet 00:00: [address] topiramate 2020-0 Yes [facility] 25 mg 1-28 ity of tablet 00:00: [address] topiramate 2020-0 Yes [facility] 25 mg 1-28 ity of tablet 00:00: [address] topiramate 2020-0 Yes [facility] 25 mg 1-28 ity of tablet 00:00: [address] topiramate 2020-0 Yes [facility] 25 mg 1-28 ity of tablet 00:00: [address] topiramate 2020-0 Yes [facility] 25 mg 1-28 ity of tablet 00:00: [address] topiramate 2020-0 Yes [facility] 25 mg 1-28 ity of tablet 00:00: [address] topiramate 2020-0 Yes [facility] 25 mg 1-28 ity of tablet 00:00: [address] topiramate 2020-0 Yes [facility] 25 mg 1-28 ity of tablet 00:00: [address] topiramate 2020-0 Yes [facility] 25 mg 1-28 ity of tablet 00:00: [place] 00 Medical Branch topiramate 2020-0 Yes [facility] 25 mg 1-28 ity of tablet 00:00: [place] [address] Medical Branch topiramate 2020-0 Yes [facility] 25 mg 1-28 ity of tablet 00:00: [place] [address] Medical Branch topiramate 2020-0 Yes [facility] 25 mg 1-28 ity of tablet 00:00: [place] [address] Medical Branch topiramate 2020-0 Yes [facility] 25 mg 1-28 ity of tablet 00:00: [place] [address] Medical Branch topiramate 2020-0 Yes [facility] 25 mg 1-28 ity of tablet 00:00: [place] [address] Medical Branch topiramate 2020-0 Yes [facility] 25 mg 1-28 ity of tablet 00:00: [place] [address] Medical Branch topiramate 2020-0 Yes [facility] 25 mg 1-28 ity of tablet 00:00: [place] [address] Medical Branch topiramate 2020-0 Yes [facility] 25 mg 1-28 ity of tablet 00:00: [place] [address] Medical Branch carBAMazepi 2020-0 Yes Univer s ne 200 mg 1-20 ity of tablet 00:00: [place] [address] Medical Branch carBAMazepi 2020-0 Yes Univer s ne 200 mg 1-20 ity of tablet 00:00: [place] [address] Medical Branch carBAMazepi 2020-0 Yes Univer s ne 200 mg 1-20 ity of tablet 00:00: [place] [address] Medical Branch carBAMazepi 2020-0 Yes Univer s ne 200 mg 1-20 ity of tablet 00:00: [place] [address] Medical Branch carBAMazepi 2020-0 Yes Univer s ne 200 mg 1-20 ity of tablet 00:00: [place] [address] Medical Branch carBAMazepi 2020-0 Yes Univer s ne 200 mg 1-20 ity of tablet 00:00: [place] [address] Medical Branch carBAMazepi 2020-0 Yes Univer s ne 200 mg 1-20 ity of tablet 00:00: [place] [address] Medical Branch carBAMazepi 2020-0 Yes Univer s ne 200 mg 1-20 ity of tablet 00:00: [place] [address] Medical Branch carBAMazepi 2020-0 Yes Univer s ne 200 mg 1-20 ity of tablet 00:00: [place] [address] Medical Branch carBAMazepi 2020-0 Yes Univer s ne 200 mg 1-20 ity of tablet 00:00: [place] [address] Medical Branch carBAMazepi 2020-0 Yes Univer s [...] 200 mg 1-20 ity of tablet 00:00: [place] [address] Medical Branch carBAMazepi 2020-0 Yes Univer s ne 200 mg 1-20 ity of tablet 00:00: [place] [facility] carBAMazepi 2020-0 Yes Univer s ne 200 mg 1-20 ity of tablet 00:00: [place] [address] Medical Branch carBAMazepi 2020-0 Yes Univer s ne 200 mg 1-20 ity of tablet 00:00: [place] [address] Medical Branch carBAMazepi 2020-0 Yes Univer s ne 200 mg 1-20 ity of tablet 00:00: [place] [address] Medical Branch carBAMazepi 2020-0 Yes Univer s ne 200 mg 1-20 ity of tablet 00:00: [place] [address] Medical Branch carBAMazepi 2020-0 Yes Univer s ne 200 mg 1-20 ity of tablet 00:00: [place] [address] Medical Branch carBAMazepi 2020-0 Yes Univer s ne 200 mg 1-20 ity of tablet 00:00: [place] [address] Medical Branch carBAMazepi 2020-0 Yes Univer s ne 200 mg 1-20 ity of tablet 00:00: [place] [address] Medical Branch naproxen 2018-10 Yes [id number] 500mg Take 1 U nivers 500 mg 0-16 tablet by ity of tablet 00:00: mouth [place] [address] every 8 Medical (eight) Branch hours as needed for Pain (scale 1-3) or Pain (scale 4-6). ipratropium 2018-10 Yes [id number] 2{spray Use 2 [facility] 0.03 % 0-16 } Sprays in ity of nasal spray 00:00: each [place] [address] nostril 3 Medical (three) Branch times daily. naproxen 2018-10 Yes [id number] 500mg Take 1 U nivers 500 mg 0-16 tablet by ity of tablet 00:00: mouth [place] 00 every 8 Medical (eight) Branch hours as needed for Pain (scale 1-3) or Pain (scale 4-6). naproxen 2018-10 Yes [id number] 500mg Take 1 U nivers 500 mg 0-16 tablet by ity of tablet 00:00: mouth [place] 00 every 8 Medical (eight) Branch hours as needed for Pain (scale 1-3) or Pain (scale 4-6). naproxen 2018-10 2020- No [id number] 500mg Take 1 [facility] 500 mg 0-16 03-26 tablet by ity of tablet 00:00: 00:00 mouth [place] 00 :00 every 8 Medical (eight) Branch hours as needed for Pain (scale 1-3) or Pain (scale 4-6). ipratropium 2018-10 2020- No [id number] 2{spray Use 2 [facility] 0.03 % 0-16 02-08 } Sprays in ity of nasal spray 00:00: 00:00 each [place] 00 :00 nostril 3 Medical (three) Branch times daily. albuterol 2018-10 2020- No 2{puff} Inhale 2 [facility] 90 0-15 02-08 Puffs ity of mcg/actuati 00:00: 00:00 every 6 [place] on inhaler 00 :00 (six) Medical hours as Branch needed for Wheezing or Shortness of Breath. budesonide- 2018-10 2020- No 2{puff} Inhale 2 [facility] formoterol 0-15 02-08 Puffs 2 ity o f 160-4.5 00:00: 00:00 (two) [place] mcg/actuati 00 :00 times Medical on inhaler daily. Branch indomethaci 2018-10- No [id number] 50mg Take 1 [facility] n 50 mg 0-15 02-08 capsule by ity o f capsule 00:00: 00:00 mouth 3 [place] 00 :00 (three) Medical times Branch daily with meals. levETIRAcet 2018-10 2020- No [id number] 500mg Take 1 [facility] am (KEPPRA) 0-15 02-08 tablet by it y of 500 mg 00:00: 00:00 mouth 2 [place] tablet 00 :00 (two) Medical times Branch daily. metoprolol 2018-10- No [id number] Take BP [facility] tartrate 25 0-15 02-08 twice a ity of mg tablet 00:00: 00:00 day.If SBP [place] 00 :00 is less Medical than 130 Branch take 25mg, if over 130 can take 50mg.If heart rate is under 60 only take 25mg, do not take 50mg. predniSONE 2018-10 2020- No [id number] 20mg Take 1 Univers 20 mg 0-15 02-08 tablet by ity of tablet 00:00: 00:00 mouth 2 [place] 00 :00 (two) Medical times Branch daily. codeine-gua Yes [id number] 5mL Take 5 mL Univers ifenesin 3-12 by mouth ity of 10-100 mg/5 00:00: every 6 [place] as mL solution 00 (six) Medical hours as Branch needed for Cough. codeine-gua Yes [id number] 5mL Take 5 mL Univers ifenesin 3-12 by mouth ity of 10-100 mg/5 00:00: every 6 [place] as mL solution 00 (six) Medical hours as Branch needed for Cough. codeine-gua Yes [id number] 5mL Take 5 mL Univers ifenesin 3-12 by mouth ity of 10-100 mg/5 00:00: every 6 [place] as mL solution 00 (six) Medical hours as Branch needed for Cough. codeine-gua 2020- No [id number] 5mL Take 5 mL Univers ifenesin 3-12 03-26 by mouth ity of 10-100 mg/5 00:00: [...] Immunizations Ordered Filled Immunization Date Status Comments [facility] Immunization Name Name SARS-COV-2 COVID-19 2021-10-12 Completed Unive rsity of MODERNA VACCINE 00:00:00 [facility] SARS-COV-2 COVID-19 2021-09-14 Completed Unive rsity of MODERNA VACCINE 00:00:00 [facility] SARS-COV-2 COVID-19 2021-09-14 Completed Unive rsity of MODERNA VACCINE 00:00:00 [facility] Influenza Virus 2018-12-16 Completed Universit y of Vaccine Quad IM 3+ 00:00:00 [facility] Influenza Virus 2018-12-16 Completed Universit y of Vaccine Quad IM 3+ 00:00:00 [facility] Influenza Virus 2018-12-16 Completed Universit y of Vaccine Quad IM 3+ 00:00:00 [facility] Influenza Virus 2018-12-16 Completed Universit y of Vaccine Quad IM 3+ 00:00:00 [facility] Influenza Virus 2018-12-16 Completed Universit y of Vaccine Quad IM 3+ 00:00:00 [facility] Influenza Virus 2018-12-16 Completed Universit y of Vaccine Quad IM 3+ 00:00:00 [facility] Influenza Virus 2018-12-16 Completed Universit y of Vaccine Quad IM 3+ 00:00:00 [facility] Influenza Virus 2018-12-16 Completed Universit y of Vaccine Quad IM 3+ 00:00:00 [facility] Influenza Virus 2018-12-16 Completed Universit y of Vaccine Quad IM 3+ 00:00:00 [facility] Influenza Virus 2018-12-16 Completed Universit y of Vaccine Quad IM 3+ 00:00:00 [facility] Influenza Virus 2018-12-16 Completed Universit y of Vaccine Quad IM 3+ 00:00:00 [facility] Influenza Virus 2018-12-16 Completed Universit y of Vaccine Quad IM 3+ 00:00:00 [facility] Influenza Virus 2018-12-16 Completed Universit y of Vaccine Quad IM 3+ 00:00:00 [facility] Influenza Virus 2018-12-16 Completed Universit y of Vaccine Quad IM 3+ 00:00:00 [facility] Influenza Virus 2018-12-16 Completed Universit y of Vaccine Quad IM 3+ 00:00:00 [facility] Influenza Virus 2018-12-16 Completed Universit y of Vaccine Quad IM 3+ 00:00:00 [facility] Influenza Virus 2018-12-16 Completed Universit y of Vaccine Quad IM 3+ 00:00:00 [facility] Influenza Virus 2018-12-16 Completed Universit y of Vaccine Quad IM 3+ 00:00:00 [facility] Influenza Virus 2018-12-16 Completed Universit y of Vaccine Quad IM 3+ 00:00:00 [facility] Influenza Virus 2018-12-16 Completed Universit y of Vaccine Quad IM 3+ 00:00:00 [facility] Influenza Virus 2018-12-16 Completed Universit y of Vaccine Quad IM 3+ 00:00:00 [facility] Influenza Virus 2018-12-16 Completed Universit y of Vaccine Quad IM 3+ 00:00:00 [facility] Influenza Virus 2018-12-16 Completed Universit y of Vaccine Quad IM 3+ 00:00:00 [facility] Influenza Virus 2018-12-16 Completed Universit y of Vaccine Quad IM 3+ 00:00:00 [facility] Influenza Virus 2018-12-16 Completed Universit y of Vaccine Quad IM 3+ 00:00:00 [facility] Influenza Virus 2018-12-16 Completed Universit y of Vaccine Quad IM 3+ 00:00:00 [facility] Vital Signs Vital Name Observation Time Observation Value Comments Source Systolic blood 2021-07-29 15:21:00 125 mm[Hg] Univer sity of pressure [facility] Diastolic blood 2021-07-29 15:21:00 80 mm[Hg] Unive rsity of pressure [facility] Heart rate 2021-07-29 15:21:00 97 /min [facility] Body temperature 2021-07-29 15:21:00 36.67 Sury [facility] Respiratory rate 2021-07-29 15:21:00 16 /min [facility] Body height 2021-07-29 15:21:[address] [facility] Body weight 2021-07-29 15:21:00 95.255 kg Universi ty [facility] BMI 2021-07-29 15:21:00 36.05 kg/m2 Universi ty [facility] Oxygen saturation in 2021-07-29 15:21:00 98 /min University of Arterial blood by [facility] Pulse oximetry Branch Systolic blood 2021-07-21 15:05:00 140 mm[Hg] Univer sity of pressure [facility] Diastolic blood 2021-07-21 15:05:00 81 mm[Hg] Unive rsity of pressure [facility] Heart rate 2021-07-21 15:05:00 88 /min Universi ty [facility] Body temperature 2021-07-21 15:05:00 37.28 Sury Univ ersity [facility] Body weight 2021-07-21 15:05:00 95.255 kg Universi ty [facility] BMI 2021-07-21 15:05:00 36.05 kg/m2 Universi ty [facility] Oxygen saturation in 2021-07-21 15:05:00 99 /min University of Arterial blood by [facility] Pulse oximetry Branch BP Diastolic 2020-04-13 00:00:00 83 mm[Hg] [facility] Height 2020-04-13 00:00:00 64 [in_i] [facility] BMI (Body Mass 2020-04-13 00:00:00 36.5 kg/m2 [facility] Index) Group BP Systolic 2020-04-13 00:00:00 118 mm[Hg] [facility] Body Weight 2020-04-13 00:00:00 212.8 [lb_av] [facility] Procedures Procedure Date / Time Performed Performing Clinician Sour e SARS-COV-2 COVID-19 2021-10-12 15:11:47 Doctor Unassigned, No [facility] [place] VACCINE,0.5ML,IM Name Medical Branch (MODERNA) SARS-COV-2 COVID-19 2021-09-14 15:17:49 Doctor Unassigned, No [facility] [place] VACCINE,0.5ML,IM Name Medical Branch (MODERNA) ASSIGNMENT OF BENEFITS 2021-07-21 15:47:58 Doctor Unassigned, No [facility] NOTICE OF PRIVACY 2021-07-21 15:05:18 Doctor Unassigned, No Univ [facility] PRACTICES Name Medical Branch CONSENT/REFUSAL FOR 2021-07-21 14:59:53 [facility], [facility] AND Name Medical Branch 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 2021-07-19 05:01:00 Doctor Unassigned, No Univ [facility] RECORDS Name Medical Branch ASSIGNMENT OF BENEFITS 2021-06-03 01:26:55 Doctor Unassigned, No [facility] Medical Branch Plan of Care Planned Activity Planned Date Details Comments Source Diagnostic Test 2020-04-13 CBC w/ auto diff [facility] 00:00:00 [code = CBC w/ Group auto diff] Diagnostic Test 2020-04-13 CMP, serum or [facility] Pending 00:00:00 plasma [code = Group CMP, serum or plasma] Diagnostic Test 2020-04-13 lipid panel, serum [facility] Pending 00:00:00 [code = lipid Group panel, serum] Diagnostic Test 2020-04-13 HBsAg (hepatitis B [facility] Pending 00:00:00 surface Ag), serum Group [code = HBsAg (hepatitis B surface Ag), serum] Diagnostic Test 2020-04-13 HIV (1+2) Ab [facility] Pending 00:00:00 screen, serum Group [code = HIV (1+2) Ab screen, serum] Diagnostic Test 2020-04-13 RPR (rapid plasma [facility] Pending 00:00:00 reagin), serum Group [code = RPR (rapid plasma reagin), serum] Diagnostic Test 2020-04-13 TSH + free T4, [facility] Pending 00:00:00 serum [code = TSH Group + free T4, serum] Diagnostic Test 2020-04-13 pap, LB + HPV [facility] Pending 00:00:00 [code = pap, LB + Group HPV] Diagnostic Test 2020-04-13 CT + NG + TV, DNA, [facility] Pending 00:00:00 urine/swab [code = Group CT + NG + TV, DNA, urine/swab] Encounters Start End Encounter Admission Attending Care Care Encounter Source Date/Time Date/Time Type Type Clinicians Facility Department ID 2021-08-30 Emergency [facility] [id number] Univers 00:49:50 itrigo [facility] 2021-10-12 2021-10-12 Outpatient R [facility] [id number] Univers 09:10:00 09:10:00 [id number] rigo [facility] 2021-10-12 2021-10-12 Outpatient R LYDIA [facility] [id number] Univers 09:10:00 09:10:00 ZELDA ity [facility] 2021-10-12 2021-10-12 [facility] [id number] Univers 09:00:00 09:00:00 AIDAN rigo [facility] 2021-10-12 2021-10-12 Imm/Inj Nurse, Adc Pob Immunization [facility] 1.2.840.114 [id number] Univers 09:00:00 09:00:00 Visit Aidan Reynoso 350.1.13 .10 ity az[id number] [phone] La dical NAL [address] [place] [address] 2021-10-12 2021-10-12 [facility] [id number] Univers 08:00:00 08:00:00 AIDAN angulo [facility] 2021-09-14 2021-09-14 [facility] [id number] Univers 09:30:00 09:30:00 AIDAN angulo [facility] 2021-09-14 2021-09-14 Imm/Inj Nurse, Adc Pob Immunization [facility] .2.840.114 [id number] Univers 09:01:10 09:01:24 Visit Aidan Reynoso 350.1.13 .10 ity of [id number] [phone] La dical NAL [address] [facility] 2021-08-20 2021-08-[address] [facility] 1.2.840.114 [id number] Univers 00:00:00 00:00:00 [facility] [id number] it y aziza WHALEY [id number] [place]an as BARRON?BLEA [phone] La dical KNEY [address] [place] MED[facility] 2021-07-29 2021-07-29 Urgent Gisell Villegas [facility] 1.2.840.114 [id number] Univers 10:14:01 10:34:01 Care Unknown, Attending [facility] [id number] ity of [place] [id number] Elan as Barron?Blea [phone] [facility] [address] [facility] Office [facility] 2021-07-29 2021-07-29 Outpatient R [facility] [id number] Univers 10:20:00 10:20:00 [id number] ity of [facility] 2021-07-29 2021-07-29 Outpatient R UNKNOWN, [facility] [id number] Univers 10:20:00 10:20:00 ATTENDING ity of [facility] 2021-07-21 2021-07-21 Emergency Vanessa Eduardo [facility] 1.2.840.114 [id number] Univers 10:06:00 11:06:00 Josefina Whaley [id number] i ty of [place] [id number] [place] [phone] [facility] [address] [place] 2021-07-19 2021-07-19 Orders Doctor AMBREEN 1.2.840.114 [id number] Univers 00:00:00 00:00:00 Only Unassigned, DONY 350.1.13.10 ity of [place] [facility] [id number] Elan as [phone] [facility] [address] [place] 2021-07-05 2021-07-05 Telephone Lydia [facility] 1.2.840.114 [id number] Univers 00:00:00 00:00:00 Zelda Whaley 350.1.13.10 ity [facility] [id number] [place] [facility] [phone] La dical [facility] [address] [facility] 2021-06-02 2021-06-02 Laboratory Lab, Adc Fam Pob I [facility] 1.2. 840.114 [id number] Univers 20:27:39 20:47:39 Only Cedric Hurst [facility] [id number] ity of [place] [id number] [place] as Professio [phone] [facility] [address] [place] [address] 2021-06-02 2021-06-02 Laboratory Lab, [facility] 1.2.840.114 [id number] 20:27:39 20:47:39 Only Fam Pob I Health 350.1.13.10 [place] [id number] Professio [phone] [place] [address] [address] 2021-06-02 2021-06-02 Outpatient R [facility] [id number] Univers 20:20:00 20:20:00 [id number] [facility] 2021-06-02 2021-06-02 [facility] [id number] Univers 20:20:00 20:20:[facility] 2021-06-02 2021-06-02 Outpatient DICLEMENTE_ [facility] [id number] [place] 11:05:00 11:05:00 NENITA 08[facility] 2021-06-02 2021-06-02 Orders Doctor CROOK 1.2.840.114 [id number] Univers 00:00:00 00:00:00 Only Unassigned, DONY 350.1.13.10 ity of [place] [id number] Elan as [phone] [address] 2021-06-02 2021-06-[address] [facility] 1.2.840.114 [id number] Univers 00:00:00 00:00:00 Zelda Whaley 350.1.13.10 [place]y [id number] [phone] [facility] [address] [facility] 2021-06-02 2021-06-02 Orders Doctor CROOK 1.2.840.114 [id number] 00:00:00 00:00:00 Only Unassigned, DONY 350.1.13.10 [facility] 4.2.7.2.686 [phone] 009 2021-06-02 2021-06-[address] [facility] 1.2.840.114 [id number] 00:00:00 00:00:00 Zelda Whaley 350.1.13.10 [place] [id number] Professio [phone] 2021-01-18 2021-01-[address] [facility] 1.2.840.114 [id number] Univers 00:00:00 00:00:00 Outreach Aidan PRIMARY [id number] i ty of [facility] [id number] [place] [phone] La dical [facility] Branch 2021-01-18 2021-01-[address] [facility] 1.2.840.114 [id number] 00:00:00 00:00:00 Outreach Aidan PRIMARY [id number] [facility] [id number] PAVILLION [phone] 388 2020-09-15 2020-09-15 Outpatient [facility]McDonald [facility] [id number] [place] 02:40:00 02:40:00 111[address] [facility] 2020-05-24 2020-05-24 [facility] [id number] Univers 08:40:00 08:40:00 ZELDA [id number] [facility] 2020-05-24 2020-05-24 Outpatient Wendy [facility] [id number] Univers 08:40:00 08:40:00 ZELDA [facility] 2020-04-14 2020-04-14 Outpatient cMcOrtizald [facility] [id number] [place] 05:40:00 05:40:00 0619 Medical Group 2020-04-13 2020-04-13 Outpatient cMcOrtizald [facility] [id number] [place] 07:38:00 07:38:00 0616 Medical Group 2020-04-13 2020-04-13 Maia [facility] [place] - [id number] Uday zuleta 00:00:00 00:00:00 Alex Cazares, Medical Medica brina STEINER: [address] [facility] [address], [place] [address] , Ph. [phone] 2020-01-23 2020-03-12 [facility] Foster, [facility] 1.2.840.114 [id number] [facility] 11:11:01 16:10:25 ne Visit Lissa [place] 350.1.13.10 ity [place] [id number] Profess[place] [phone] [address] 2020-01-23 2020-03-12 [facility] 1.2.840.114 [id number] 11:11:01 16:10:25 ne Visit Lissa Wh[place] 350.1.13.10 [place] [id number] Professio [phone] [address] 2020-02-23 2020-02-26 Outpatient BRIAN, [facility] [id number] [facility] 14:38:00 13:00:00 JOANNE 2020-02-22 2020-02-23 Inpatient U APOLINAR, FB MED [id number] [facility] 19:57:00 13:45:00 CAM 2020-01-30 2020-01-30 [facility] 1.2.840.114 [id number] [facility] 08:10:50 15:55:51 ne Visit Lissa Wh[place] 350.1.13.10 ity [place] [id number] Profess[place] [phone] La dic[address] 2020-01-30 2020-01-30 [facility] [id number] Univers 10:45:00 10:45:00 LISSA [facility] 2020-01-30 2020-01-30 [facility] [id number] Univers 10:45:00 10:45:00 LISSA [facility] 2020-01-27 2020-01-27 Outpatient R LYDIA, [facility] [id number] Univers 08:40:00 08:40:00 ZELDA [id number] [facility] 2020-01-27 2020-01-27 Telephone [facility] 1.2.840.114 [id number] Univers 00:00:00 00:00:00 Lissa [place] 350.1.13.10 i ty [place] [id number] Profess[place] [phone] [address] 2020-01-27 2020-01-27 Telephone [facility] 1.2.840.114 [id number] Univers 00:00:00 00:00:00 Lissa Wh[place] 350.1.13.10 i ty [place] [id number] [phone] [address] 2020-01-23 2020-01-23 [facility] [id number] Univers 13:15:00 13:15:00 LISSA [id number] [facility] 2020-01-23 2020-01-23 [facility] [id number] Univers 13:15:00 13:15:00 [facility] 2020-01-23 2020-01-23 [facility] 1.2.840.114 [id number] Univers 00:00:00 00:00:00 Lissa Whaley 350.1.13.10 i ty [place] [id number] Profess[place] [phone] [address] 2020-01-22 2020-01-22 Telemedici [facility] 1.2.840.114 [id number] Univers 08:40:14 12:05:25 ne Visit Zelda Whaley 350.1.13.10 ity of [place] [id number] Profess[place] [phone] [facility] [address] [facility] 2020-01-22 2020-01-22 [facility] [id number] Univers 10:40:00 10:40:00 ZELDA Sofia26 ity [facility] 2020-01-22 2020-01-22 Outpatient [facility] [id number] Univers 10:40:00 10:40:00 ZELDA ity of [facility] 2019-12-12 2019-12-12 Telephone Lydia [facility] 1.2.840.114 [id number] Univers 00:00:00 00:00:00 Zelda A [place] 350.1.13.10 ity of [place] [id number] [phone] [facility] 231 [facility] 2019-12-06 2019-12-06 Refill Doctor [facility] 1.2.840.114 [id number] Univers 00:00:00 00:00:00 Unassigned, [place] 350.1.13.10 ity of [place] [id number] Profess[place] [phone] [facility] 0[address] [facility] 2019-12-06 2019-12-[address] [facility] 1.2.840.114 [id number] Univers 00:00:00 00:00:00 Zelda [place] 350.1.13.10 ity of [place] [id number] Profess[place] [phone] [address] 2019-10-14 2019-10-14 Outpatient Teresita PHILLIPS [facility] [id number] [place] 12:28:00 12:28:00 0615 Medical Group Results This patient has no known results.
[2021-10-18 14:21] LABS: Urine Blood 3+ (Negative); Urine Glucose Negative (Negative); Urine Protein 1+ (Negative); Urine Specific Gravity >=1.030 (1.005-1.030)
[2021-10-18 14:38] LABS: Basophils % 0.3 % (0-1.3); Hematocrit 37.1 % (36.0-45.0); Lymphocytes % 47.2 % (15.3-44.8); MPV 8.8 fL (7.6-11.3); RBC Red Blood Cell Count 4.12 M/uL (3.86-4.86)
[2021-10-18 14:54] LABS: BUN Blood Urea Nitrogen 10 mg/dL (7-18); Bicarbonate 26 mmol/L (21-32); Glucose Level 90 mg/dL (74-106); Potassium 3.7 mmol/L (3.5-5.1); Sodium Level 141 mmol/L (136-145)
--- NOTE | 2021-10-18 14:54 | RAD REPORT ---
EXAM DESCRIPTION: US - Transvaginal Study Probe - 10/18/2021 2:46 pm CLINICAL HISTORY: Abd pain;Vaginal bleeding Pelvic pain. COMPARISON: TRANSVAGINAL STUDY PROBE dated 09/18/2011 FINDINGS: The uterus is normal in size, shape and echotexture. The uterus measures 9.8 cm The endometrial stripe measures 7 mm, within normal limits Both ovaries are normal in size, shape and echotexture. The right ovary measures 7.9 mL. The left o vary measures 3.7 mL. No ovarian or parovarian lesions. No adnexal masses. Normal Doppler blood flow was demonstrated to both ovaries. No significant pelvic ascites. IMPRESSION: The exam is within normal limits for patient's age. Bilateral ovarian blood flow.
[2021-10-18 15:10] LABS: Urine Specific Gravity/Preg >1.030 (1.005-1.030)
[2021-10-18] MEDS ORDERED: ONDANSETRON 4 MG/2 ML VIAL ONE ×2 (15:20→15:43)
[2021-10-18] MEDS ORDERED: FENTANYL CITR 100 MCG/2 ML ONE (15:43)
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
[2021-10-18 16:29] VITALS: TEMP 98
[2021-10-18 16:32] VITALS: BP 101/55; O2SAT 98
== END 2021-10-18 16:23 | disposition home or self-care (01) ==
LOC: ER 13:28
DX: N94.6 Dysmenorrhea, unspecified (principal); I10 Essential (primary) hypertension; Z88.8 Allergy status to other drugs, medicaments and biological substances
CPT/HCPCS: 85025; 80048; 36415; 86900; 86850; 81025; 86901; 84702; 81003; 76830; 96375; 96374; 99284; J3010; J2405 ×2

== ENCOUNTER 2021-12-16 19:13 | Emergency (ER) | payer OTHER ==
--- OUTSIDE RECORDS SUMMARY | 2021-12-16 19:18 | XMS REPORT | Continuity of Care Document ---
:1990 Author Organization [facility] t Address [address] [place] [address] Care Team Providers Name Role Phone Lydia STEINER, A Primary Care Physician ANNETTE BENNETT Attending Clinician Unavailable Amanda PORTILLO Attending Clinician AMANDA Attending Clinician Unavailable Lab, Fam Pob I Attending Clinician Unavailable JANIS Attending Clinician Unavailable Doctor Unassigned, Name Attending Clinician Unavailable Lydia STEINER, Alisia Attending Clinician Julio C Lopez DO Attending Clinician Teresita Attending Clinician Unavailable Cricket STEINER Attending Clinician PALOMA TORRES Attending Clinician Unavailable APOLINAR Attending Clinician Unavailable JANIS Admitting Clinician Unavailable Teresita Admitting Clinician Unavailable BUCKY TIJERINA Admitting Clinician Unavailable Payers Payer Name Policy Type Policy Number Effective Date Expiration Date Janes henriquez [facility] [id number] 2019 CHOICE MEDICAID 00:00:00 [facility] [id number] CHOICE (MEDICAID REPLACEMENT - HMO) Problems Condition Condition Condition Status Onset Resolution Last Treating Co mments Source Name Details Category Date Date Treatment Clinician Date Cough Cough Disease Active 2021- Univers 2-14 ity of 00:00: [place] 00 Medical Branch Congestion Congestion Disease Active U nivers of nasal of nasal 2-14 ity of sinus sinus 00:00: [place] 00 Medical Branch Nausea Nausea Disease Active Univers 2-14 ity of 00:00: [place] [facility] Acute Acute Disease Active Univers otitis otitis 2-14 ity of extern[place] ear, 00 Me dical unspecifie unspecifie Br anch d type d type Upper Upper Disease Active Univers respirator respirator 2-14 it y of y tract y tract 00:00: [place] infection, infection, 00 Me dical unspecifie unspecifie Br anch d type d type Gastroesop Gastroesop Disease Active U nivers hageal hageal 2-14 ity of reflux reflux 00:00: [place] disease disease 00 Medical without without Branch esophagiti esophagiti s s Obesity Obesity Disease Active Univers (BMI (BMI 9-27 ity of 30-39.9) 30-39.9) 00:00: [place] [facility] Irregular Irregular Disease Active Uni vers menstrual menstrual 3-12 ity of cycle cycle 00:00: [place] [facility] Asthma, Asthma, Disease Active Univers unspecifie unspecifie 4-23 it y of d asthma d asthma 00:00: [place] severity, severity, 00 Medi chloé unspecifie unspecifie Br anch d whether d whether complicate complicate d, d, unspecifie unspecifie d whether d whether persistent persistent Anxiety Anxiety Disease Active Univers 6-24 ity of 00:00: [place] 00 Medical Branch Essential Essential Disease Active Uni vers hypertensi hypertensi 6-24 it y of on on 00:00: [place] [facility] Other Other Disease Active Univers [...] Pain of Disease Active Univers upper upper 6-24 ity of abdomen abdomen 00:00: [place] [facility] Allergies, Adverse Reactions, Alerts Allergy Allergy Status Severity Reaction(s) Onset Inactive Treating Comm ents Source Name Type Date Date Clinician KETOROLA DRUG Active Hives Univers C INGREDI 04-20 ity of 00:00: [place] [address] [place] [address] Branch Ketorola Propensi Active Shortness of Can shay e Univers c ty to Breath 04-20 aspirin ity of adverse 00:00: and [place] reaction 00 ibuprofen Medic al s without Branch problem. Social History Social Habit Start Date Stop Date Quantity Comments Source History of 2012-04-20 Cigarette Smoker Universi ty of tobacco use 00:00:00 [facility] Exposure to Not sure [facility] SARS-CoV-2 [facility] (event) [place] Alcohol intake 2021-12-12 2021-12-12 Current University of 00:00:00 00:00:00 non-drinker of [facility] alcohol (finding) [place] Tobacco Comment 2019-01-07 2019-01-07 3-4 ciggs a day Univ ersity of 00:00:00 00:00:00 [facility] Tobacco use and 2017-04-20 2017-04-20 Never used Universit y of exposure 00:00:00 00:00:00 [facility] Sex [birth year] Universit y of 00:00:00 00:00:00 [facility] Smoking Status Start Date Stop Date Source Never Smoker [facility] Light tobacco smoker 2017-04-20 00:00:00 [facility] ity of [facility] Medications Ordered Filled Start Stop Current Ordering Indication Dosage Frequency Signature Comments Components Source Medication Medication Date Date Medication? Clinician (SIG) Name Name methylPREDN Yes [id number] Take by Univers ISolone 2-15 mouth ity of (MEDROL, 00:00: SEE-INSTRU [place] BAMBI,) 4 mg 00 CTIONS. Medica l tablets follow Branch package directions methylPREDN Yes [id number] Take by Univers ISolone 2-15 mouth ity of (MEDROL, 00:00: SEE-INSTRU [place] BAMBI,) 4 mg 00 CTIONS. Medica l tablets follow Branch package directions methylPREDN 2021- Yes [id number] Take by Univers ISolone 2-15 - mouth ity of (MEDROL, 00:00: 05:59 [place]AMBI[place] 4 mg 00 :00 CTIONS for Med ical tablets 5 days. Branch follow package directions methylPREDN 2021- No [id number] Take by Univers ISolone 12-1315 mouth ity of (MEDROL, 00:00: 00:00 [place]IN[place] BAMBI,) 4 mg 00 :00 CTIONS for Med ical tablets 5 days. Branch follow package directions omeprazole 2021- Yes [id number] 40mg Take 1 Univers 40 mg 12-12- capsule by ity of capsule 00:00: 05:59 mouth [place] 00 :00 daily for Medical 14 days. Branch omeprazole 2021- Yes [id number] 40mg Take 1 Univers 40 mg 12-12 capsule by ity of capsule 00:00: 05:59 mouth [place] 00 :00 daily for Medical 14 days. [place] omeprazole 2021- Yes [id number] 40mg Take 1 Univers 40 mg 12-12 capsule by ity of capsule 00:00: 05:59 mouth [place] 00 :00 daily for Medical 14 days. [place] omeprazole 2021- Yes [id number] 40mg Take 1 Univers 40 mg 12-12- capsule by ity of capsule 00:00: 05:59 mouth [place] 00 :00 daily for Medical 14 days. [place] omeprazole 2021- Yes [id number] 40mg Take 1 Univers 40 mg 12-12- capsule by ity of capsule 00:00: 05:59 mouth [place] 00 :00 daily for Medical 14 days. [place] ondansetron 2021- Yes [id number] 4mg Take 1 Univers (ZOFRAN) 4 12-12 tablet by ity of mg tablet 00:00: 05:59 mouth [place] 00 :00 every 8 Medical (eight) Branch hours as needed for Nausea and Vomiting (N/V) for up to 10 days. ciprofloxac 2021- Yes [id number] 4[drp] Place 4 Univers in-dexameth 12-12 [id number] Drops in it y of asone 00:00: 05:59 right ear [place] (CIPRODEX) 00 :00 2 (two) Medica l 0.3-0.1 % times Branch otic drops daily for 10 days. ibuprofen 2021- Yes [id number] 600mg Take 1 Univers 600 mg 12-12 [id number] tablet by ity of tablet 00:00: 05:59 mouth [place] 00 :00 every 6 Medical (six) Branch hours as needed for Pain (scale 4-6) for up to 10 days. bromphenira 2021- Yes [id number] 10mL Take 10 mL Univers mine-pseudo 12-12 by mouth 4 i ty of ephedrine-D 00:00: 05:59 (four) [place] M (BROMFED 00 :00 times Medical DM) 2-30-10 daily as Bran ch mg/5 mL needed for syrup Congestion /Allergies for up to 10 days. ondansetron 2021- Yes [id number] 4mg Take 1 Univers (ZOFRAN) 4 12-12 tablet by ity of mg tablet 00:00: 05:59 mouth [place] 00 :00 every 8 Medical (eight) Branch hours as needed for Nausea and Vomiting (N/V) for up to 10 days. ciprofloxac 2021- Yes [id number] 4[drp] Place 4 Univers in-dexameth 12-12 [id number] Drops in it y of asone 00:00: 05:59 right ear [place] (CIPRODEX) 00 :00 2 (two) Medica l 0.3-0.1 % times Branch otic drops daily for 10 days. ibuprofen 2021- Yes [id number] 600mg Take 1 Univers 600 mg 12-12 [id number] tablet by ity of tablet 00:00: 05:59 mouth [place] 00 :00 every 6 Medical (six) Branch hours as needed for Pain (scale 4-6) for up to 10 days. bromphenira 2021- Yes [id number] 10mL Take 10 mL Univers mine-pseudo 12-12 by mouth 4 i ty of ephedrine-D 00:00: 05:59 (four) [place] M (BROMFED 00 :00 times Medical DM) 2-30-10 daily as Bran ch mg/5 mL needed for syrup Congestion /Allergies for up to 10 days. ondansetron 2021- Yes [id number] 4mg Take 1 Univers (ZOFRAN) 4 12-12 tablet by ity of mg tablet 00:00: 05:59 mouth [place] 00 :00 every 8 Medical (eight) Branch hours as needed for Nausea and Vomiting (N/V) for up to 10 days. ciprofloxac 2021- Yes [id number] 4[drp] Place 4 Univers in-dexameth 12-12 [id number] Drops in it y of asone 00:00: 05:59 right ear [place] (CIPRODEX) 00 :00 2 (two) Medica l 0.3-0.1 % times Branch otic drops daily for 10 days. ibuprofen 2021- Yes [id number] 600mg Take 1 Univers 600 mg 12-12 [id number] tablet by ity of tablet 00:00: 05:59 mouth [place] 00 :00 every 6 Medical (six) Branch hours as needed for Pain (scale 4-6) for up to 10 days. bromphenira 2021- Yes [id number] 10mL Take 10 mL Univers mine-pseudo 12-12 by mouth 4 i ty of ephedrine-D 00:00: 05:59 (four) [place] M (BROMFED 00 :00 times Medical DM) 2-30-10 daily as Bran ch mg/5 mL needed for syrup Congestion /Allergies for up to 10 days. ondansetron 2021- Yes [id number] 4mg Take 1 Univers (ZOFRAN) 4 12-12 tablet by ity of mg tablet 00:00: 05:59 mouth [place] 00 :00 every 8 Medical (eight) Branch hours as needed for Nausea and Vomiting (N/V) for up to 10 days. ciprofloxac 2021- Yes [id number] 4[drp] Place 4 Univers in-dexameth 12-12 [id number] Drops in it y of asone 00:00: 05:59 right ear [place] (CIPRODEX) 00 :00 2 (two) Medica l 0.3-0.1 % times Branch otic drops daily for 10 days. ibuprofen 2021- Yes [id number] 600mg Take 1 Univers 600 mg 12-12 [id number] tablet by ity of tablet 00:00: 05:59 mouth [place] 00 :00 every 6 Medical (six) Branch hours as needed for Pain (scale 4-6) for up to 10 days. bromphenira 2021- Yes [id number] 10mL Take 10 mL Univers mine-pseudo 12-12 by mouth 4 i ty of ephedrine-D 00:00: 05:59 (four) [place] M (BROMFED 00 :00 times Medical DM) 2-30-10 daily as Bran ch mg/5 mL needed for syrup Congestion /Allergies for up to 10 days. ondansetron 2021- Yes [id number] 4mg Take 1 Univers (ZOFRAN) 4 12-12 tablet by ity of mg tablet 00:00: 05:59 mouth [place] 00 :00 every 8 Medical (eight) Branch hours as needed for Nausea and Vomiting (N/V) for up to 10 days. ciprofloxac 2021- Yes [id number] 4[drp] Place 4 Univers in-dexameth 12-12 [id number] Drops in it y of asone 00:00: 05:59 right ear [place] (CIPRODEX) 00 :00 2 (two) Medica l 0.3-0.1 % times Branch otic drops daily for 10 days. ibuprofen 2021- Yes [id number] 600mg Take 1 Univers 600 mg 12-12 [id number] tablet by ity of tablet 00:00: 05:59 mouth [place] 00 :00 every 6 Medical (six) Branch hours as needed for Pain (scale 4-6) for up to 10 days. bromphenira 2021- Yes [id number] 10mL Take 10 mL Univers mine-pseudo 12-12 by mouth 4 i ty of ephedrine-D 00:00: 05:59 (four) [place] M (BROMFED 00 :00 times Medical DM) 2-30-10 daily as Bran ch mg/5 mL needed for syrup Congestion /Allergies for up to 10 days. sumatriptan 2020-10 Yes Take by Un brad [...] of (IMITREX 10:19: [place] ORAL) Medical Branch cetirizine 2020-10 Yes [id number] 10mg Take 1 U nivers (ZYRTEC) 10 0-01 tablet by ity of mg tablet 00:00: mouth 00 daily. Medical Branch azelastine 2020-10 Yes [id number] 1{spray Use 1 Univers 137 mcg 0-01 } [place] ity of (0.1 %) 00:00: each [place] nasal spray 00 nostril 2 Med ical (two) Branch times daily. Use in each nostril as directed fluticasone 2020-10 Yes [id number] 1{spray Use 1 Univers propionate 0-01 } [place] in ity o f 50 00:00: each [place] mcg/actuati 00 nostril Medic al on nasal daily. Branch spray cetirizine 2020-10 Yes [id number] 10mg Take 1 U nivers (ZYRTEC) 10 0-01 tablet by ity of mg tablet 00:00: mouth [place] 00 daily. Medical Branch azelastine 2020-10 Yes [id number] 1{spray Use 1 Univers 137 mcg 0-01 } [place] ity of (0.1 %) 00:00: each [place] nasal spray 00 nostril 2 Med ical (two) Branch times daily. Use in each nostril as directed fluticasone 2020-10 Yes [id number] 1{spray Use 1 Univers propionate 0-01 } [place] in ity o f 50 00:00: each [place] mcg/actuati 00 nostril Medic al on nasal daily. Branch spray cetirizine 2020-10 Yes [id number] 10mg Take 1 U nivers (ZYRTEC) 10 0-01 tablet by ity of mg tablet 00:00: mouth [place] 00 daily. Medical Branch azelastine 2020-10 Yes [id number] 1{spray Use 1 Univers 137 mcg 0-01 } [place] ity of (0.1 %) 00:00: each [place] nasal spray 00 nostril 2 Med ical (two) Branch times daily. Use in each nostril as directed fluticasone 2020-10 Yes [id number] 1{spray Use 1 Univers propionate 0-01 } [place] in ity o f 50 00:00: each [place] mcg/actuati 00 nostril Medic al on nasal daily. Branch spray cetirizine 2020-10 Yes [id number] 10mg Take 1 U nivers (ZYRTEC) 10 0-01 tablet by ity of mg tablet 00:00: mouth [place] 00 daily. Medical Branch azelastine 2020-10 Yes [id number] 1{spray Use 1 Univers 137 mcg 0-01 } [place] ity of (0.1 %) 00:00: each [place] nasal spray 00 nostril 2 Med ical (two) Branch times daily. Use in each nostril as directed fluticasone 2020-10 Yes [id number] 1{spray Use 1 Univers propionate 0-01 } [place] in ity o f 50 00:00: each [place] mcg/actuati 00 nostril Medic al on nasal daily. Branch spray cetirizine 2020-10 Yes [id number] 10mg Take 1 U nivers (ZYRTEC) 10 0-01 tablet by ity of mg tablet 00:00: mouth [place] 00 daily. Medical Branch azelastine 2020-10 Yes [id number] 1{spray Use 1 Univers 137 mcg 0-01 } [place] ity of (0.1 %) 00:00: each [place] nasal spray 00 nostril 2 Med ical (two) Branch times daily. Use in each nostril as directed fluticasone 2020-10 Yes [id number] 1{spray Use 1 Univers propionate 0-01 } [place] in ity o f 50 00:00: each [place] mcg/actuati 00 nostril Medic al on nasal daily. Branch spray bromphenira 2020-10- No [id number] 5mL Take 5 mL Univers mine-pseudo 014 by mouth 4 i ty of ephedrine-D 00:00: 00:00 (four) [place] M (BROMFED 00 :00 times Medical DM) 2-30-10 daily as Bran ch mg/5 mL needed for syrup Congestion /Allergies . ibuprofen 2021- No [id number] 600mg Take 1 Univers 600 mg 07-21 tablet by ity of tablet 00:00: 00:00 mouth [place] 00 :00 every 6 Medical (six) Branch hours as needed for Pain (scale 4-6). benzonatate Yes [id number] 100mg Take 1 Univers 100 mg 9-10 capsule by ity of capsule 00:00: mouth 3 00 (three) Medical times Branch daily as needed for Cough. benzonatate Yes [id number] 100mg Take 1 Univers 100 mg 9-10 capsule by ity of capsule 00:00: mouth 3 00 (three) Medical times Branch daily as needed for Cough. benzonatate Yes [id number] 100mg Take 1 Univers 100 mg 9-10 capsule by ity of capsule 00:00: mouth 3 [place] 00 (three) Medical times Branch daily as needed for Cough. benzonatate Yes [id number] 100mg Take 1 Univers 100 mg 9-10 capsule by ity of capsule 00:00: mouth 3 00 (three) Medical times Branch daily as needed for Cough. benzonatate Yes [id number] 100mg Take 1 Univers 100 mg 9-10 capsule by ity of capsule 00:00: mouth 3 [place] 00 (three) Medical times Branch daily as needed for Cough. medroxyPROG 2020-0 Yes [id number] Take one Univers ESTERone 4-03 by mouth ity of (PROVERA) 00:00: days one [place] 10 mg 00 through 10 Medical tablet of each Branch month beginning 02/27/20. medroxyPROG 2020-0 Yes [id number] Take one Univers ESTERone 4-03 by mouth ity of (PROVERA) 00:00: days one [place] 10 mg 00 through 10 Medical tablet of each Branch month beginning 02/27/20. medroxyPROG 2020-0 Yes [id number] Take one Univers ESTERone 4-03 by mouth ity of (PROVERA) 00:00: days one [place] 10 mg 00 through 10 Medical tablet of each Branch month beginning 02/27/20. medroxyPROG 2020-0 Yes [id number] Take one Univers ESTERone 4-03 by mouth ity of (PROVERA) 00:00: days one [place] 10 mg 00 through 10 Medical tablet of each Branch month beginning 02/27/20. medroxyPROG 2020-0 Yes [id number] Take one Univers ESTERone 4-03 by mouth ity of (PROVERA) 00:00: days one [place] 10 mg 00 through 10 Medical tablet of each Branch month beginning 02/27/20. amitriptyli 2020-0 Yes [id number] 25mg Take 1 Univers ne 25 mg 3-26 tablet by ity of tablet 00:00: mouth at [place] [address] bedtime. Medical Branch metoprolol 2020-0 Yes [id number] 50mg Take 1 Univers tartrate 50 3-26 tablet by ity of mg tablet 00:00: mouth 2 [place] (two) Medical times Branch daily. amitriptyli 2020-0 Yes [id number] 25mg Take 1 Univers ne 25 mg 3-26 tablet by ity of tablet 00:00: mouth at [place] [address] bedtime. Medical Branch metoprolol 2020-0 Yes [id number] 50mg Take 1 Univers tartrate 50 3-26 tablet by ity of mg tablet 00:00: mouth 2 [place] (two) Medical times Branch daily. amitriptyli 2020-0 Yes [id number] 25mg Take 1 Univers ne 25 mg 3-26 tablet by ity of tablet 00:00: mouth at [place] [address] bedtime. Medical Branch metoprolol 2020-0 Yes [id number] 50mg Take 1 Univers tartrate 50 3-26 tablet by ity of mg tablet 00:00: mouth 2 [place] (two) Medical times Branch daily. amitriptyli 2020-0 Yes [id number] 25mg Take 1 Univers ne 25 mg 3-26 tablet by ity of tablet 00:00: mouth at [place] [address] bedtime. Medical Branch metoprolol 2020-0 Yes [id number] 50mg Take 1 Univers tartrate 50 3-26 tablet by ity of mg tablet 00:00: mouth 2 [place] (two) Medical times Branch daily. amitriptyli 2020-0 Yes [id number] 25mg Take 1 Univers ne 25 mg 3-26 tablet by ity of tablet 00:00: mouth at [place] 00 bedtime. Medical Branch metoprolol 2020-0 Yes [id number] 50mg Take 1 Univers tartrate 50 3-26 tablet by ity of mg tablet 00:00: mouth 2 [place] 00 (two) Medical times Branch daily. budesonide- 2020-0 Yes [id number] 2{puff} Inhale 2 Univers formoteroL 2-14 Puffs 2 ity of 160-4.5 00:00: (two) [place] mcg/actuati 00 times Medical on inhaler daily. Branch indomethaci 2020-0 Yes [id number] 50mg Take 1 Univers n 50 mg 2-14 capsule by ity of capsule 00:00: mouth 3 00 (three) Medical times Branch daily with meals. albuterol 2020-0 Yes [id number] 2{puff} Inhale 2 Univers 90 2-14 Puffs ity of mcg/actuati 00:00: every 6 [place] on inhaler 00 (six) Medical hours as Branch needed for Wheezing or Shortness of Breath. levETIRAcet 2020-0 Yes [id number] 500mg Take 1 Univers am (KEPPRA) 2-14 tablet by ity of 500 mg 00:00: mouth 2 [place] tablet 00 (two) Medical times Branch daily. budesonide- 2020-0 Yes [id number] 2{puff} Inhale 2 Univers formoteroL 2-14 Puffs 2 ity of 160-4.5 00:00: (two) [place] mcg/actuati 00 times Medical on inhaler daily. Branch indomethaci 2020-0 Yes [id number] 50mg Take 1 Univers n 50 mg 2-14 capsule by ity of capsule 00:00: mouth 3 [place] 00 (three) Medical times Branch daily with meals. albuterol 2020-0 Yes [id number] 2{puff} Inhale 2 Univers 90 2-14 Puffs ity of mcg/actuati 00:00: every 6 [place] on inhaler 00 (six) Medical hours as Branch needed for Wheezing or Shortness of Breath. levETIRAcet 2020-0 Yes [id number] 500mg Take 1 Univers am (KEPPRA) 2-14 tablet by ity of 500 mg 00:00: mouth 2 [place] tablet 00 (two) Medical times Branch daily. budesonide- 2020-0 Yes [id number] 2{puff} Inhale 2 Univers formoteroL 2-14 Puffs 2 ity of 160-4.5 00:00: (two) [place] mcg/actuati 00 times Medical on inhaler daily. Branch indomethaci 2020-0 Yes [id number] 50mg Take 1 Univers n 50 mg 2-14 capsule by ity of capsule 00:00: mouth 3 [place] 00 (three) Medical times Branch daily with meals. albuterol 2020-0 Yes [id number] 2{puff} Inhale 2 Univers 90 2-14 Puffs ity of mcg/actuati 00:00: every 6 [place] on inhaler 00 (six) Medical hours as Branch needed for Wheezing or Shortness of Breath. levETIRAcet 2020-0 Yes [id number] 500mg Take 1 Univers am (KEPPRA) 2-14 tablet by ity of 500 mg 00:00: mouth 2 [place] tablet 00 (two) Medical times Branch daily. budesonide- 2020-0 Yes [id number] 2{puff} Inhale 2 Univers formoteroL 2-14 Puffs 2 ity of 160-4.5 00:00: (two) [place] mcg/actuati 00 times Medical on inhaler daily. Branch indomethaci 2020-0 Yes [id number] 50mg Take 1 Univers n 50 mg 2-14 capsule by ity of capsule 00:00: mouth 3 [place] 00 (three) Medical times Branch daily with meals. albuterol 2020-0 Yes [id number] 2{puff} Inhale 2 Univers 90 2-14 Puffs ity of mcg/actuati 00:00: every 6 [place] on inhaler 00 (six) Medical hours as Branch needed for Wheezing or Shortness of Breath. levETIRAcet 2020-0 Yes [id number] 500mg Take 1 Univers am (KEPPRA) 2-14 tablet by ity of 500 mg 00:00: mouth 2 [place] tablet 00 (two) Medical times Branch daily. budesonide- 2020-0 Yes [id number] 2{puff} Inhale 2 Univers formoteroL 2-14 Puffs 2 ity of 160-4.5 00:00: (two) [place] mcg/actuati 00 times Medical on inhaler daily. Branch indomethaci 2020-0 Yes [id number] 50mg Take 1 Univers n 50 mg 2-14 capsule by ity of capsule 00:00: mouth 3 [place] 00 (three) Medical times Branch daily with meals. albuterol 2019-0 Yes [id number] 2{puff} Inhale 2 Univers 90 2-14 Puffs ity of mcg/actuati 00:00: every 6 [place] on inhaler 00 (six) Medical hours as Branch needed for Wheezing or Shortness of Breath. levETIRAcet 2019-0 Yes [id number] 500mg Take 1 Univers am (KEPPRA) 2-14 tablet by ity of 500 mg 00:00: mouth 2 [place] tablet 00 (two) Medical times Branch daily. topiramate 2019-0 Yes Univers 25 mg 1-28 ity of tablet 00:00: [address] topiramate 2020-0 Yes Univers 25 mg 1-28 ity of tablet 00:00: [address] topiramate 2020-0 Yes Univers 25 mg 1-28 ity of tablet 00:00: [address] topiramate 2020-0 Yes Univers 25 mg 1-28 ity of tablet 00:00: [address] topiramate 2020-0 Yes Univers 25 mg 1-28 ity of tablet 00:00: [address] carBAMazepi 2020-0 Yes Univer s ne 200 mg 1-20 ity of tablet 00:00: [address] carBAMazepi 2020-0 Yes Univer s ne 200 mg 1-20 ity of tablet 00:00: [address] carBAMazepi 2020-0 Yes Univer s ne 200 mg 1-20 ity of tablet 00:00: [address] carBAMazepi 2020-0 Yes Univer s ne 200 mg 1-20 ity of tablet 00:00: [address] carBAMazepi 2020-0 Yes Univer s ne 200 mg 1-20 ity of tablet 00:00: [address] [place] [...] Immunizations Ordered Filled Immunization Date Status Comments [facility] Immunization Name Name SARS-COV-2 COVID-19 2021-10-12 Completed Unive rsity of MODERNA VACCINE 00:00:00 [facility] SARS-COV-2 COVID-19 2021-10-12 Completed Unive rsity of MODERNA VACCINE 00:00:00 [facility] SARS-COV-2 COVID-19 2021-10-12 Completed Unive rsity of MODERNA VACCINE 00:00:00 [facility] SARS-COV-2 COVID-19 2021-10-12 Completed Unive rsity of MODERNA VACCINE 00:00:00 [facility] SARS-COV-2 COVID-19 2021-10-12 Completed Unive rsity of MODERNA VACCINE 00:00:00 [facility] SARS-COV-2 COVID-19 2021-09-14 Completed Unive rsity of MODERNA VACCINE 00:00:00 [facility] SARS-COV-2 COVID-19 2021-09-14 Completed Unive rsity of MODERNA VACCINE 00:00:00 [facility] SARS-COV-2 COVID-19 2021-09-14 Completed Unive rsity of MODERNA VACCINE 00:00:00 [facility] SARS-COV-2 COVID-19 2021-09-14 Completed Unive rsity of MODERNA VACCINE 00:00:00 [facility] SARS-COV-2 COVID-19 2021-09-14 Completed Unive rsity of MODERNA VACCINE 00:00:00 [facility] Influenza Virus 2018-12-16 Completed Universit y of Vaccine Quad IM 3+ 00:00:00 [facility] Influenza Virus 2018-12-16 Completed Universit y of Vaccine Quad IM 3+ 00:00:00 [facility] Influenza Virus 2018-12-16 Completed Universit y of Vaccine Quad IM 3+ 00:00:00 [facility] Influenza Virus 2018-12-16 Completed Universit y of Vaccine Quad IM 3+ 00:00:00 [facility] Influenza Virus 2018-12-16 Completed Universit y of Vaccine Quad IM 3+ 00:00:00 [facility] Vital Signs Vital Name Observation Time Observation Value Comments Source Systolic blood 2021-12-12 22:09:00 119 mm[Hg] Univer sity of pressure [facility] Diastolic blood 2021-12-12 22:09:00 76 mm[Hg] Unive rsity of [facility] Heart rate 2021-12-12 22:09:00 106 /min [facility] Body temperature 2021-12-12 22:09:00 36.83 [facility] 2021-12-12 22:09:00 162.6 cm [facility] Body weight 2021-12-12 22:09:00 105.96 kg [facility] BMI 2021-12-12 22:09:00 40.10 kg/m2 [facility] Oxygen saturation in 2021-12-12 22:09:00 98 /min [facility] Arterial blood by [facility] Pulse oximetry Branch BP Diastolic 2020-04-13 00:00:00 83 mm[Hg] [facility] Height 2020-04-13 00:00:00 64 [in_i] [facility] BMI (Body Mass 2020-04-13 00:00:00 36.5 kg/m2 [facility] Index) Group BP Systolic 2020-04-13 00:00:00 118 mm[Hg] [facility] Body Weight 2020-04-13 00:00:00 212.8 [lb_av] [facility] Procedures This patient has no known procedures. Plan of Care Planned Activity Planned Date Details Comments Source Diagnostic Test 2020-04-13 CBC w/ auto diff [facility] 00:00:00 [code = CBC w/ Group auto diff] Diagnostic Test 2020-04-13 CMP, serum or [place] [facility] Pending 00:00:00 plasma [code = Group CMP, serum or plasma] Diagnostic Test 2020-04-13 lipid panel, serum [facility] Pending 00:00:00 [code = lipid Group panel, serum] Diagnostic Test 2020-04-13 HBsAg (hepatitis B [facility] Pending 00:00:00 surface Ag), serum Group [code = HBsAg (hepatitis B surface Ag), serum] Diagnostic Test 2020-04-13 HIV (1+2) Ab [place] [facility] [facility] Pending 00:00:00 screen, serum Group [code = HIV (1+2) Ab screen, serum] Diagnostic Test 2020-04-13 RPR (rapid plasma [facility] Pending 00:00:00 reagin), serum Group [code = RPR (rapid plasma reagin), serum] Diagnostic Test 2020-04-13 TSH + free T4, [place] [facility] Pending 00:00:00 serum [code = TSH Group + free T4, serum] Diagnostic Test 2020-04-13 pap, LB + HPV [place] [facility] Pending 00:00:00 [code = pap, LB + Group HPV] Diagnostic Test 2020-04-13 CT + NG + TV, DNA, [facility] Pending 00:00:00 urine/swab [code = Group CT + NG + TV, DNA, urine/swab] Encounters Start End Encounter Admission Attending Care Care Encounter Source Date/Time Date/Time Type Type Clinicians Facility Department ID 2021-12-22 2021-12-22 Outpatient R ISHAN [facility] [id number] Univers 08:30:00 08:30:00 ity [facility] 2021-12-14 2021-12-14 Telephone [facility] [id number] Univers 00:00:00 00:00:00 M[place] [id number] it y of [place] [id number] Elan as KIRAN?BLEA [phone] Nc dic[address] MEDICAL OFFICE BUILDING 2021-12-13 2021-12-13 Telephone [facility] [id number] Univers 00:00:00 00:00:00 M[place]ana [id number] it y of [place] [id number] Elan as KIRAN?BLEA [phone] Nc zuleima SCHWARTZ [address] [place] [address] OFFICE BUILDING 2021-12-13 2021-12-13 Telephone [facility] [id number] Univers 00:00:00 00:00:00 Nila HEALTH [id number] it y of [place] [id number] Elan as KIRAN?BLEA [phone] Nc zuleima SCOTT[address] OFFICE BUILDING 2021-12-13 2021-12-13 Telephone [facility] [id number] Univers 00:00:00 00:00:00 Nila HEALTH [id number] [facility] [id number] Elan as KIRAN?BLEA [phone] Nc zuleima SCOTT[address] OFFICE BUILDING 2021-12-12 2021-12-12 Office [facility] [id number] Univers 16:00:00 16:51:41 [facility] [id number] it y of [place] [id number] Elan as KIRAN?BLEA [phone] [address] OFFICE BUILDING 2021-12-12 2021-12-12 [facility] [id number] Univers 16:00:00 16:51:41 NILA angulo [facility] 2021-06-02 2021-06-02 Laboratory Lab, [facility] [id number] 20:27:39 20:47:39 Only Fam Pob I Health [id number] [place] [id number] Professio [phone] [place] [address] Office [address] One 2021-06-02 2021-06-02 Outpatient DICLEMENTE_ GAURAV NOLASCO 918 [place] 11:05:00 11:05:00 NENITA 08Marlene da [facility] 2021-06-02 2021-06-02 Orders Doctor CROOK [id number] 00:00:00 00:00:00 Only Unassigned, DONY [id number] [facility] [id number] 2021-06-02 2021-06-02 Telephone Lydia [facility] [id number] 00:00:00 00:00:00 Zelda Mariscal [id number] [place] [id number] Professio [phone] [facility] 231 [facility] 2021-01-18 2021-01-18 Patient [facility] [id number] 00:00:00 00:00:00 Outreach [facility] [id number] [facility] [id number] AMY [id number] 2020-09-15 2020-09-15 [facility] [id number] [place] 02:40:00 02:40:00 1118 Medical Group 2020-04-14 2020-04-14 Outpatient [facility]McDonald [facility] [id number] [place] 05:40:00 05:40:00 0619 Medical Group 2020-04-13 2020-04-13 [facility] [id number] [place] 07:38:00 07:38:00 0616 Medical Group 2020-04-13 2020-04-13 Maia [facility] [place] - [id number] M atagor 00:00:00 00:00:00 Alex Cazares Medical Medica brina STEINER: [address] [facility] [address] [facility] [address], [place] [address] , Ph. [phone] 2020-01-23 2020-03-12 [facility] [id number] 11:11:01 16:10:25 ne Visit Lissa Mariscal [id number] [place] [id number] Profjuniorio [id number] [facility] 134 [facility] 2020-02-23 2020-02-26 Outpatient [facility] MED 0118 [facility] 14:38:00 13:00:00 JOANNE 2020-02-22 2020-02-23 Inpatient U APOLINAR, FB MED [id number] [facility] 19:57:00 13:45:00 CAM 2019-10-14 2019-10-14 Outpatient Teresita PHILLIPS [facility] [id number] [facility] 12:28:00 12:28:00 0615 Medical Group Results This patient has no known results.
[2021-12-16] MEDS ORDERED: NA CHLORIDE 0.9% 1,000 ML ONE (19:38)
[2021-12-16] MEDS ORDERED: FOSPHENYTOIN PE 500 MG/10 ML VIAL ONE ×2 (19:41→19:45)
[2021-12-16] MEDS ORDERED: NA CHLORIDE 0.9% 100 ML IV ONE (19:52)
[2021-12-16] MEDS ORDERED: LORazepam 2 MG/ML VIAL ONE (19:54)
[2021-12-16 20:03] LABS: Urine Blood Negative (Negative); Urine Glucose Negative (Negative); Urine Protein Negative (Negative); Urine Specific Gravity 1.025 (1.005-1.030)
[2021-12-16] MEDS ORDERED: DIPHENHYDRAMINE 50 MG/ML VIAL ONE (20:03)
[2021-12-16 20:10] LABS: Urine Specific Gravity/Preg 1.025 (1.005-1.030)
[2021-12-16 20:19] LABS: Absolute Lymphocytes (CBC) 5.4 K/uL (0.7-4.9); Lymphocytes % 46.6 % (15.3-44.8); MPV 9.3 fL (7.6-11.3); RBC Red Blood Cell Count 3.89 M/uL (3.86-4.86)
--- NOTE | 2021-12-16 20:23 | RAD REPORT ---
EXAM DESCRIPTION: CT - Head Brain Wo Cont - 12/16/2021 8:13 pm CLINICAL HISTORY: Seizure COMPARISON: 2020 TECHNIQUE: Computed axial tomography of the head was obtained. IV contrast was not requested. All CT scans are performed using dose optimization technique as appropriate and may include automated exposure control or mA/KV adjustment according to patient size. FINDINGS: An intracranial bleed is not seen . The ventricles are normal in caliber. No extra-axial fluid collection is noted. Fluid within the sinuses/ mastoids is not seen. IMPRESSION: No acute intracranial abnormality is seen. If patient's symptoms persist MRI of the bra in would be recommended.
[2021-12-16 20:29] LABS: Barbiturates NEGATIVE (NEGATIVE); Benzodiazepines POSITIVE (NEGATIVE); Cocaine NEGATIVE (NEGATIVE); METHAMPHETAM NEGATIVE (NEGATIVE); Methadone NEGATIVE (NEGATIVE); Opiates NEGATIVE (NEGATIVE); Phencyclidine NEGATIVE (NEGATIVE); THC Cannibis NEGATIVE (NEGATIVE)
[2021-12-16 21:07] LABS: ALT/SGPT 19 U/L (12-78); AST/SGOT 9 U/L (15-37); Albumin 2.9 g/dL (3.4-5.0); Alkaline Phosphatase 69 U/L (45-117); BUN Blood Urea Nitrogen 15 mg/dL (7-18); Bicarbonate 27 mmol/L (21-32); Bilirubin Direct < 0.1 mg/dL (0-0.2); Bilirubin Total 0.2 mg/dL (0.2-1.0); Glucose Level 100 mg/dL (74-106); Potassium 3.6 mmol/L (3.5-5.1); Sodium Level 142 mmol/L (136-145)
[2021-12-16] MEDS ORDERED: carBAMazepine 200 MG TAB ONE (21:39)
[2021-12-16] MEDS ORDERED: levETIRAcetam 500 MG TAB ONE (21:48)
[2021-12-16] MEDS ORDERED: ACETAMINOPHEN 500 MG TAB ONE (21:51)
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
[2021-12-16 23:10] VITALS: TEMP 98.2
[2021-12-16 23:14] VITALS: BP 126/83; O2SAT 99
== END 2021-12-16 22:59 | disposition home or self-care (01) ==
LOC: ER 19:13
DX: G40.89 Other seizures (principal); Z88.8 Allergy status to other drugs, medicaments and biological substances
CPT/HCPCS: 96361; 85025; 80048; 36415; 80156; 81025; 82947; 80076; 81003; 80307; 70450; 96375; 96374; 99284; J1200; Q2009 ×2; J7030

== ENCOUNTER 2021-12-17 10:25 | Emergency (ER) | payer OTHER ==
--- OUTSIDE RECORDS SUMMARY | 2021-12-17 10:28 | XMS REPORT | Continuity of Care Document ---
:1990 Author Organization [facility] t Address [address] [place] [address] Care Team Providers Name Role Phone Lydia [...] Number Effective Date Expiration Date Janes henriquez [facility] [id number] 2019 CHOICE MEDICAID 00:00:00 [facility] [id number] CHOICE (MEDICAID REPLACEMENT - HMO) Problems Condition Condition Condition Status Onset Resolution Last Treating Co mments Source Name Details Category Date Date Treatment Clinician Date Cough Cough Disease Active 2021- Univers 2-14 ity of 00:00: [place] 00 Medical Branch Congestion Congestion Disease Active U nivers of nasal of nasal 2-14 ity of sinus sinus 00:00: [place] 00 Medical Branch Nausea Nausea Disease Active Univers 2-14 ity of 00:00: [place] [facility] Acute Acute Disease Active Univers [...] (BMI 9-27 ity of 30-39.9) 30-39.9) 00:00: [place] [facility] Irregular Irregular Disease Active Uni vers menstrual menstrual 3-12 ity of cycle cycle 00:00: [place] [facility] Asthma, Asthma, Disease Active Univers unspecifie unspecifie 4-23 it y of d asthma d asthma 00:00: [place] severity, severity, 00 Medi chloé unspecifie unspecifie Br anch d whether d whether complicate complicate d, d, unspecifie unspecifie d whether d whether persistent persistent Anxiety Anxiety Disease Active Univers 6-24 ity of 00:00: [place] 00 Medical Branch Essential Essential Disease Active Uni vers hypertensi hypertensi 6-24 it y of on on 00:00: [place] [facility] Other Other Disease Active Univers [...] upper 6-24 ity of abdomen abdomen 00:00: [place] [facility] Allergies, Adverse Reactions, Alerts Allergy Allergy Status Severity Reaction(s) Onset Inactive Treating Comm ents Source Name Type Date Date Clinician KETOROLA DRUG Active Hives Univers C INGREDI 04-20 ity of 00:00: [place] [address] [place] [address] Branch Ketorola Propensi Active Shortness of Can shay e Univers c ty to Breath 04-20 aspirin ity of adverse 00:00: and [place] reaction 00 ibuprofen Medic al s without Branch problem. Social History Social Habit Start Date Stop Date Quantity Comments Source History of 2012-04-20 Cigarette Smoker Universi ty of tobacco use 00:00:00 [facility] Exposure to Not sure [facility] SARS-CoV-2 [facility] (event) [place] Alcohol intake 2021-12-12 2021-12-12 Current University of 00:00:00 00:00:00 non-drinker of [facility] alcohol (finding) [place] Tobacco Comment 2019-01-07 2019-01-07 3-4 ciggs a day Univ ersity of 00:00:00 00:00:00 [facility] Tobacco use and 2017-04-20 2017-04-20 Never used Universit y of exposure 00:00:00 00:00:00 [facility] Sex Ass[birth year] At [birth year] Universit y of 00:00:00 00:00:00 [facility] Smoking Status Start Date Stop Date Source Never Smoker [facility] Light tobacco smoker 2017-04-20 00:00:00 [facility] ity of [facility] Medications Ordered Filled Start Stop Current Ordering Indication Dosage Frequency Signature Comments Components Source Medication Medication Date Date Medication? Clinician (SIG) Name Name methylPREDN Yes [id number] Take by Univers ISolone 2-15 mouth ity of (MEDROL, 00:00: SEE-INSTRU [place] BAMBI,) 4 mg 00 CTIONS. Medica l tablets follow Branch package directions methylPREDN Yes [id number] Take by Univers ISolone 2-15 mouth ity of (MEDROL, 00:00: SEE-INSTRU [place] BAMBI,) 4 mg 00 CTIONS. Medica l tablets follow Branch package directions methylPREDN 2021- Yes [id number] Take by Univers ISolone 2-15 - mouth ity of (MEDROL, 00:00: 05:59 [place] 4 mg 00 :00 CTIONS for Med ical tablets 5 days. Branch follow package directions methylPREDN 2021- No [id number] Take by Univers ISolone 12-1315 mouth ity of (MEDROL, 00:00: 00:00 [place] 4 mg 00 :00 CTIONS for Med ical tablets 5 days. Branch follow package directions omeprazole 2021- Yes [id number] 40mg Take 1 Univers 40 mg 12-12- capsule by ity of capsule 00:00: 05:59 mouth [place] 00 :00 daily for Medical 14 days. Branch omeprazole 2021- Yes [id number] 40mg Take 1 Univers 40 mg 12-12 capsule by ity of capsule 00:00: 05:59 mouth [place] 00 :00 daily for Medical 14 days. [place] omeprazole 2021- Yes [id number] 40mg Take 1 Univers 40 mg 12-12 capsule by ity of capsule 00:00: 05:59 mouth [place] 00 :00 daily for Medical 14 days. [place] omeprazole 2021- Yes [id number] 40mg Take 1 Univers 40 mg 12-12- capsule by ity of capsule 00:00: 05:59 mouth [place] 00 :00 daily for Medical 14 days. [place] omeprazole 2021- Yes [id number] 40mg Take 1 Univers 40 mg 12-12- capsule by ity of capsule 00:00: 05:59 mouth [place] 00 :00 daily for Medical 14 days. [place] ondansetron 2021- Yes [id number] 4mg Take 1 Univers (ZOFRAN) 4 12-12 tablet by ity of mg tablet 00:00: 05:59 mouth [place] 00 :00 every 8 Medical (eight) Branch hours as needed for Nausea and Vomiting (N/V) for up to 10 days. ciprofloxac 2021- Yes [id number] 4[drp] Place 4 Univers in-dexameth 12-12 [id number] Drops in it y of asone 00:00: 05:59 right ear [place] (CIPRODEX) 00 :00 2 (two) Medica l 0.3-0.1 % times Branch otic drops daily for 10 days. ibuprofen 2021- Yes [id number] 600mg Take 1 Univers 600 mg 12-12 [id number] tablet by ity of tablet 00:00: 05:59 mouth [place] 00 :00 every 6 Medical (six) Branch hours as needed for Pain (scale 4-6) for up to 10 days. bromphenira 2021- Yes [id number] 10mL Take 10 mL Univers mine-pseudo 12-12 by mouth 4 i ty of ephedrine-D 00:00: 05:59 (four) [place] M (BROMFED 00 :00 times Medical DM) 2-30-10 daily as Bran ch mg/5 mL needed for syrup Congestion /Allergies for up to 10 days. ondansetron 2021- Yes [id number] 4mg Take 1 Univers (ZOFRAN) 4 12-12 tablet by ity of mg tablet 00:00: 05:59 mouth [place] 00 :00 every 8 Medical (eight) Branch hours as needed for Nausea and Vomiting (N/V) for up to 10 days. ciprofloxac 2021- Yes [id number] 4[drp] Place 4 Univers in-dexameth 12-12 [id number] Drops in it y of asone 00:00: 05:59 right ear [place] (CIPRODEX) 00 :00 2 (two) Medica l 0.3-0.1 % times Branch otic drops daily for 10 days. ibuprofen 2021- Yes [id number] 600mg Take 1 Univers 600 mg 12-12 [id number] tablet by ity of tablet 00:00: 05:59 mouth [place] 00 :00 every 6 Medical (six) Branch hours as needed for Pain (scale 4-6) for up to 10 days. bromphenira 2021- Yes [id number] 10mL Take 10 mL Univers mine-pseudo 12-12 by mouth 4 i ty of ephedrine-D 00:00: 05:59 (four) [place] M (BROMFED 00 :00 times Medical DM) 2-30-10 daily as Bran ch mg/5 mL needed for syrup Congestion /Allergies for up to 10 days. ondansetron 2021- Yes [id number] 4mg Take 1 Univers (ZOFRAN) 4 12-12 tablet by ity of mg tablet 00:00: 05:59 mouth [place] 00 :00 every 8 Medical (eight) Branch hours as needed for Nausea and Vomiting (N/V) for up to 10 days. ciprofloxac 2021- Yes [id number] 4[drp] Place 4 Univers in-dexameth 12-12 [id number] Drops in it y of asone 00:00: 05:59 right ear [place] (CIPRODEX) 00 :00 2 (two) Medica l 0.3-0.1 % times Branch otic drops daily for 10 days. ibuprofen 2021- Yes [id number] 600mg Take 1 Univers 600 mg 12-12 [id number] tablet by ity of tablet 00:00: 05:59 mouth [place] 00 :00 every 6 Medical (six) Branch hours as needed for Pain (scale 4-6) for up to 10 days. bromphenira 2021- Yes [id number] 10mL Take 10 mL Univers mine-pseudo 12-12 by mouth 4 i ty of ephedrine-D 00:00: 05:59 (four) [place] M (BROMFED 00 :00 times Medical DM) 2-30-10 daily as Bran ch mg/5 mL needed for syrup Congestion /Allergies for up to 10 days. ondansetron 2021- Yes [id number] 4mg Take 1 Univers (ZOFRAN) 4 12-12 tablet by ity of mg tablet 00:00: 05:59 mouth [place] 00 :00 every 8 Medical (eight) Branch hours as needed for Nausea and Vomiting (N/V) for up to 10 days. ciprofloxac 2021- Yes [id number] 4[drp] Place 4 Univers in-dexameth 12-12 [id number] Drops in it y of asone 00:00: 05:59 right ear [place] (CIPRODEX) 00 :00 2 (two) Medica l 0.3-0.1 % times Branch otic drops daily for 10 days. ibuprofen 2021- Yes [id number] 600mg Take 1 Univers 600 mg 12-12 [id number] tablet by ity of tablet 00:00: 05:59 mouth [place] 00 :00 every 6 Medical (six) Branch hours as needed for Pain (scale 4-6) for up to 10 days. bromphenira 2021- Yes [id number] 10mL Take 10 mL Univers mine-pseudo 12-12 by mouth 4 i ty of ephedrine-D 00:00: 05:59 (four) [place] M (BROMFED 00 :00 times Medical DM) 2-30-10 daily as Bran ch mg/5 mL needed for syrup Congestion /Allergies for up to 10 days. ondansetron 2021- Yes [id number] 4mg Take 1 Univers (ZOFRAN) 4 12-12 tablet by ity of mg tablet 00:00: 05:59 mouth [place] 00 :00 every 8 Medical (eight) Branch hours as needed for Nausea and Vomiting (N/V) for up to 10 days. ciprofloxac 2021- Yes [id number] 4[drp] Place 4 Univers in-dexameth 12-12 [id number] Drops in it y of asone 00:00: 05:59 right ear [place] (CIPRODEX) 00 :00 2 (two) Medica l 0.3-0.1 % times Branch otic drops daily for 10 days. ibuprofen 2021- Yes [id number] 600mg Take 1 Univers 600 mg 12-12 [id number] tablet by ity of tablet 00:00: 05:59 mouth [place] 00 :00 every 6 Medical (six) Branch hours as needed for Pain (scale 4-6) for up to 10 days. bromphenira 2021- Yes [id number] 10mL Take 10 mL Univers mine-pseudo 12-12 [...] [place] ORAL) Medical Branch cetirizine 2020-10 Yes [id number] 10mg Take 1 U nivers (ZYRTEC) 10 0-01 tablet by ity of mg tablet 00:00: mouth 00 daily. Medical Branch azelastine 2020-10 Yes [id number] 1{spray Use 1 Univers 137 mcg 0-01 } [place] in ity of (0.1 %) 00:00: each [place] nasal spray 00 nostril 2 Med ical (two) Branch times daily. Use in each nostril as directed fluticasone 2020-10 Yes [id number] 1{spray Use 1 Univers propionate 0-01 } [place] in ity o f 50 00:00: each [place] mcg/actuati 00 nostril Medic al on nasal daily. Branch spray cetirizine 2020-10 Yes [id number] 10mg Take 1 U nivers (ZYRTEC) 10 0-01 tablet by ity of mg tablet 00:00: mouth [place] 00 daily. Medical Branch azelastine 2020-10 Yes [id number] 1{spray Use 1 Univers 137 mcg 0-01 } [place] in ity of (0.1 %) 00:00: each [place] nasal spray 00 nostril 2 Med ical (two) Branch times daily. Use in each nostril as directed fluticasone 2020-10 Yes [id number] 1{spray Use 1 Univers propionate 0-01 } [place] in ity o f 50 00:00: each [place] mcg/actuati 00 nostril Medic al on nasal daily. Branch spray cetirizine 2020-10 Yes [id number] 10mg Take 1 U nivers (ZYRTEC) 10 0-01 tablet by ity of mg tablet 00:00: mouth [place] 00 daily. Medical Branch azelastine 2020-10 Yes [id number] 1{spray Use 1 Univers 137 mcg 0-01 } [place] in ity of (0.1 %) 00:00: each [place] nasal spray 00 nostril 2 Med ical (two) Branch times daily. Use in each nostril as directed fluticasone 2020-10 Yes [id number] 1{spray Use 1 Univers propionate 0-01 } [place] in ity o f 50 00:00: each [place] mcg/actuati 00 nostril Medic al on nasal daily. Branch spray cetirizine 2020-10 Yes [id number] 10mg Take 1 U nivers (ZYRTEC) 10 0-01 tablet by ity of mg tablet 00:00: mouth [place] 00 daily. Medical Branch azelastine 2020-10 Yes [id number] 1{spray Use 1 Univers 137 mcg 0-01 } [place] in ity of (0.1 %) 00:00: each [place] nasal spray 00 nostril 2 Med ical (two) Branch times daily. Use in each nostril as directed fluticasone 2020-10 Yes [id number] 1{spray Use 1 Univers propionate 0-01 } [place] in ity o f 50 00:00: each [place] mcg/actuati 00 nostril Medic al on nasal daily. Branch spray cetirizine 2020-10 Yes [id number] 10mg Take 1 U nivers (ZYRTEC) 10 0-01 tablet by ity of mg tablet 00:00: mouth [place] 00 daily. Medical Branch azelastine 2020-10 Yes [id number] 1{spray Use 1 Univers 137 mcg 0-01 } [place] in ity of (0.1 %) 00:00: each [place] nasal spray 00 nostril 2 Med ical (two) Branch times daily. Use in each nostril as directed fluticasone 2020-10 Yes [id number] 1{spray Use 1 Univers propionate 0-01 } [place] in ity o f 50 00:00: each [place] mcg/actuati 00 nostril Medic al on nasal daily. Branch spray bromphenira 2020-10- No [id number] 5mL Take 5 mL Univers mine-pseudo 014 by mouth 4 i ty of ephedrine-D 00:00: 00:00 (four) [place] M (BROMFED 00 :00 times Medical DM) 2-30-10 daily as Bran ch mg/5 mL needed for syrup Congestion /Allergies . ibuprofen 2021- No [id number] 600mg Take 1 Univers 600 mg 07-21 tablet by ity of tablet 00:00: 00:00 mouth [place] 00 :00 every 6 Medical (six) Branch hours as needed for Pain (scale 4-6). benzonatate Yes [id number] 100mg Take 1 Univers 100 mg 9-10 capsule by ity of capsule 00:00: mouth 3 00 (three) Medical times Branch daily as needed for Cough. benzonatate Yes [id number] 100mg Take 1 Univers 100 mg 9-10 capsule by ity of capsule 00:00: mouth 3 00 (three) Medical times Branch daily as needed for Cough. benzonatate Yes [id number] 100mg Take 1 Univers 100 mg 9-10 capsule by ity of capsule 00:00: mouth 3 [place] 00 (three) Medical times Branch daily as needed for Cough. benzonatate Yes [id number] 100mg Take 1 Univers 100 mg 9-10 capsule by ity of capsule 00:00: mouth 3 00 (three) Medical times Branch daily as needed for Cough. benzonatate Yes [id number] 100mg Take 1 Univers 100 mg 9-10 capsule by ity of capsule 00:00: mouth 3 [place] 00 (three) Medical times Branch daily as needed for Cough. medroxyPROG 2020-0 Yes [id number] Take one Univers ESTERone 4-03 by mouth ity of (PROVERA) 00:00: days one [place] 10 mg 00 through 10 Medical tablet of each Branch month beginning 02/27/20. medroxyPROG 2020-0 Yes [id number] Take one Univers ESTERone 4-03 by mouth ity of (PROVERA) 00:00: days one [place] 10 mg 00 through 10 Medical tablet of each Branch month beginning 02/27/20. medroxyPROG 2020-0 Yes [id number] Take one Univers ESTERone 4-03 by mouth ity of (PROVERA) 00:00: days one [place] 10 mg 00 through 10 Medical tablet of each Branch month beginning 02/27/20. medroxyPROG 2020-0 Yes [id number] Take one Univers ESTERone 4-03 by mouth ity of (PROVERA) 00:00: days one [place] 10 mg 00 through 10 Medical tablet of each Branch month beginning 02/27/20. medroxyPROG 2020-0 Yes [id number] Take one Univers ESTERone 4-03 by mouth ity of (PROVERA) 00:00: days one [place] 10 mg 00 through 10 Medical tablet of each Branch month beginning 02/27/20. amitriptyli 2020-0 Yes [id number] 25mg Take 1 Univers ne 25 mg 3-26 tablet by ity of tablet 00:00: mouth at [place] [address] bedtime. Medical Branch metoprolol 2020-0 Yes [id number] 50mg Take 1 Univers tartrate 50 3-26 tablet by ity of mg tablet 00:00: mouth 2 [place] (two) Medical times Branch daily. amitriptyli 2020-0 Yes [id number] 25mg Take 1 Univers ne 25 mg 3-26 tablet by ity of tablet 00:00: mouth at [place] [address] bedtime. Medical Branch metoprolol 2020-0 Yes [id number] 50mg Take 1 Univers tartrate 50 3-26 tablet by ity of mg tablet 00:00: mouth 2 [place] (two) Medical times Branch daily. amitriptyli 2020-0 Yes [id number] 25mg Take 1 Univers ne 25 mg 3-26 tablet by ity of tablet 00:00: mouth at [place] [address] bedtime. Medical Branch metoprolol 2020-0 Yes [id number] 50mg Take 1 Univers tartrate 50 3-26 tablet by ity of mg tablet 00:00: mouth 2 [place] (two) Medical times Branch daily. amitriptyli 2020-0 Yes [id number] 25mg Take 1 Univers ne 25 mg 3-26 tablet by ity of tablet 00:00: mouth at [place] [address] bedtime. Medical Branch metoprolol 2020-0 Yes [id number] 50mg Take 1 Univers tartrate 50 3-26 tablet by ity of mg tablet 00:00: mouth 2 [place] (two) Medical times Branch daily. amitriptyli 2020-0 Yes [id number] 25mg Take 1 Univers ne 25 mg 3-26 tablet by ity of tablet 00:00: mouth at [place] 00 bedtime. Medical Branch metoprolol 2020-0 Yes [id number] 50mg Take 1 Univers tartrate 50 3-26 tablet by ity of mg tablet 00:00: mouth 2 [place] 00 (two) Medical times Branch daily. budesonide- 2020-0 Yes [id number] 2{puff} Inhale 2 Univers formoteroL 2-14 Puffs 2 ity of 160-4.5 00:00: (two) [place] mcg/actuati 00 times Medical on inhaler daily. Branch indomethaci 2020-0 Yes [id number] 50mg Take 1 Univers n 50 mg 2-14 capsule by ity of capsule 00:00: mouth 3 00 (three) Medical times Branch daily with meals. albuterol 2020-0 Yes [id number] 2{puff} Inhale 2 Univers 90 2-14 Puffs ity of mcg/actuati 00:00: every 6 [place] on inhaler 00 (six) Medical hours as Branch needed for Wheezing or Shortness of Breath. levETIRAcet 2020-0 Yes [id number] 500mg Take 1 Univers am (KEPPRA) 2-14 tablet by ity of 500 mg 00:00: mouth 2 [place] tablet 00 (two) Medical times Branch daily. budesonide- 2020-0 Yes [id number] 2{puff} Inhale 2 Univers formoteroL 2-14 Puffs 2 ity of 160-4.5 00:00: (two) [place] mcg/actuati 00 times Medical on inhaler daily. Branch indomethaci 2020-0 Yes [id number] 50mg Take 1 Univers n 50 mg 2-14 capsule by ity of capsule 00:00: mouth 3 [place] 00 (three) Medical times Branch daily with meals. albuterol 2020-0 Yes [id number] 2{puff} Inhale 2 Univers 90 2-14 Puffs ity of mcg/actuati 00:00: every 6 [place] on inhaler 00 (six) Medical hours as Branch needed for Wheezing or Shortness of Breath. levETIRAcet 2020-0 Yes [id number] 500mg Take 1 Univers am (KEPPRA) 2-14 tablet by ity of 500 mg 00:00: mouth 2 [place] tablet 00 (two) Medical times Branch daily. budesonide- 2020-0 Yes [id number] 2{puff} Inhale 2 Univers formoteroL 2-14 Puffs 2 ity of 160-4.5 00:00: (two) [place] mcg/actuati 00 times Medical on inhaler daily. Branch indomethaci 2020-0 Yes [id number] 50mg Take 1 Univers n 50 mg 2-14 capsule by ity of capsule 00:00: mouth 3 [place] 00 (three) Medical times Branch daily with meals. albuterol 2020-0 Yes [id number] 2{puff} Inhale 2 Univers 90 2-14 Puffs ity of mcg/actuati 00:00: every 6 [place] on inhaler 00 (six) Medical hours as Branch needed for Wheezing or Shortness of Breath. levETIRAcet 2020-0 Yes [id number] 500mg Take 1 Univers am (KEPPRA) 2-14 tablet by ity of 500 mg 00:00: mouth 2 [place] tablet 00 (two) Medical times Branch daily. budesonide- 2020-0 Yes [id number] 2{puff} Inhale 2 Univers formoteroL 2-14 Puffs 2 ity of 160-4.5 00:00: (two) [place] mcg/actuati 00 times Medical on inhaler daily. Branch indomethaci 2020-0 Yes [id number] 50mg Take 1 Univers n 50 mg 2-14 capsule by ity of capsule 00:00: mouth 3 [place] 00 (three) Medical times Branch daily with meals. albuterol 2020-0 Yes [id number] 2{puff} Inhale 2 Univers 90 2-14 Puffs ity of mcg/actuati 00:00: every 6 [place] on inhaler 00 (six) Medical hours as Branch needed for Wheezing or Shortness of Breath. levETIRAcet 2020-0 Yes [id number] 500mg Take 1 Univers am (KEPPRA) 2-14 tablet by ity of 500 mg 00:00: mouth 2 [place] tablet 00 (two) Medical times Branch daily. budesonide- 2020-0 Yes [id number] 2{puff} Inhale 2 Univers formoteroL 2-14 Puffs 2 ity of 160-4.5 00:00: (two) [place] mcg/actuati 00 times Medical on inhaler daily. Branch indomethaci 2020-0 Yes [id number] 50mg Take 1 Univers n 50 mg 2-14 capsule by ity of capsule 00:00: mouth 3 [place] 00 (three) Medical times Branch daily with meals. albuterol 2019-0 Yes [id number] 2{puff} Inhale 2 Univers 90 2-14 Puffs ity of mcg/actuati 00:00: every 6 [place] on inhaler 00 (six) Medical hours as Branch needed for Wheezing or Shortness of Breath. levETIRAcet 2019-0 Yes [id number] 500mg Take 1 Univers am (KEPPRA) 2-14 tablet by ity of 500 mg 00:00: mouth 2 [place] tablet 00 (two) Medical times Branch daily. topiramate 2019-0 Yes Univers 25 mg 1-28 ity of tablet 00:00: [address] topiramate 2020-0 Yes Univers 25 mg 1-28 ity of tablet 00:00: [address] topiramate 2020-0 Yes Univers 25 mg 1-28 ity of tablet 00:00: [address] topiramate 2020-0 Yes Univers 25 mg 1-28 ity of tablet 00:00: [address] topiramate 2020-0 Yes Univers 25 mg 1-28 ity of tablet 00:00: [address] carBAMazepi 2020-0 Yes Univer s ne 200 mg 1-20 ity of tablet 00:00: [address] carBAMazepi 2020-0 Yes Univer s ne 200 mg 1-20 ity of tablet 00:00: [address] carBAMazepi 2020-0 Yes Univer s ne 200 mg 1-20 ity of tablet 00:00: [address] carBAMazepi 2020-0 Yes Univer s ne 200 mg 1-20 ity of tablet 00:00: [address] carBAMazepi 2020-0 Yes Univer s ne 200 mg 1-20 ity of tablet 00:00: [address] [place] No [place] [...] Immunizations Ordered Filled Immunization Date Status Comments [facility] e Immunization Name Name SARS-COV-2 COVID-19 2021-10-12 Completed Unive rsity of MODERNA VACCINE 00:00:00 [facility] SARS-COV-2 COVID-19 2021-10-12 Completed Unive rsity of MODERNA VACCINE 00:00:00 [facility] SARS-COV-2 COVID-19 2021-10-12 Completed Unive rsity of MODERNA VACCINE 00:00:00 [facility] SARS-COV-2 COVID-19 2021-10-12 Completed Unive rsity of MODERNA VACCINE 00:00:00 [facility] SARS-COV-2 COVID-19 2021-10-12 Completed Unive rsity of MODERNA VACCINE 00:00:00 [facility] SARS-COV-2 COVID-19 2021-09-14 Completed Unive rsity of MODERNA VACCINE 00:00:00 [facility] SARS-COV-2 COVID-19 2021-09-14 Completed Unive rsity of MODERNA VACCINE 00:00:00 [facility] SARS-COV-2 COVID-19 2021-09-14 Completed Unive rsity of MODERNA VACCINE 00:00:00 [facility] SARS-COV-2 COVID-19 2021-09-14 Completed Unive rsity of MODERNA VACCINE 00:00:00 [facility] SARS-COV-2 COVID-19 2021-09-14 Completed Unive rsity of MODERNA VACCINE 00:00:00 [facility] Influenza Virus 2018-12-16 Completed Universit y of Vaccine Quad IM 3+ 00:00:00 [facility] Influenza Virus 2018-12-16 Completed Universit y of Vaccine Quad IM 3+ 00:00:00 [facility] Influenza Virus 2018-12-16 Completed Universit y of Vaccine Quad IM 3+ 00:00:00 [facility] Influenza Virus 2018-12-16 Completed Universit y of Vaccine Quad IM 3+ 00:00:00 [facility] Influenza Virus 2018-12-16 Completed Universit y of Vaccine Quad IM 3+ 00:00:00 [facility] Vital Signs Vital Name Observation Time Observation Value Comments Source Systolic blood 2021-12-12 22:09:00 119 mm[Hg] Univer sity of pressure [facility] Diastolic blood 2021-12-12 22:09:00 76 mm[Hg] Unive rsity of [facility] Heart rate 2021-12-12 22:09:00 106 /min [facility] Body temperature 2021-12-12 22:09:00 36.83 [facility] [place] [facility] height 2021-12-12 22:09:00 162.6 cm [facility] Body weight 2021-12-12 22:09:00 105.96 kg [facility] BMI 2021-12-12 22:09:00 40.10 kg/m2 [facility] Oxygen saturation in 2021-12-12 22:09:00 98 /min [facility] Arterial blood by [facility] Pulse oximetry Branch BP Diastolic 2020-04-13 00:00:00 83 mm[Hg] [facility] Height 2020-04-13 00:00:00 64 [in_i] [facility] BMI (Body Mass 2020-04-13 00:00:00 36.5 kg/m2 [facility] Index) Group BP Systolic 2020-04-13 [...] diff] Diagnostic Test 2020-04-13 CMP, serum or [facility] Pending 00:00:00 plasma [code = Group CMP, serum or plasma] Diagnostic Test 2020-04-13 lipid panel, serum [facility] [employer] [facility] Pending 00:00:00 [code = lipid Group panel, serum] Diagnostic Test 2020-04-13 HBsAg (hepatitis B [facility] [employer] [facility] Pending 00:00:00 surface Ag), serum Group [code = HBsAg (hepatitis B surface Ag), serum] Diagnostic Test 2020-04-13 HIV (1+2) Ab [facility] Pending 00:00:00 screen, serum Group [code = HIV (1+2) Ab screen, serum] Diagnostic Test 2020-04-13 RPR (rapid plasma [facility] Pending 00:00:00 reagin), serum Group [code = RPR (rapid plasma reagin), serum] Diagnostic Test 2020-04-13 TSH + free T4, [facility] Pending 00:00:00 serum [code = TSH Group + free T4, serum] Diagnostic Test 2020-04-13 pap, LB + HPV [facility] Pending 00:00:00 [code = pap, LB + Group HPV] Diagnostic Test 2020-04-13 CT + NG + TV, DNA, [facility] [employer] [facility] Pending 00:00:00 urine/swab [code = Group CT + NG + TV, DNA, urine/swab] Encounters Start End Encounter Admission Attending Care Care Encounter Source Date/Time Date/Time Type Type Clinicians Facility Department ID 2021-12-22 2021-12-22 Outpatient R ISHAN BENNETT [facility] [id number] Univers 08:30:00 08:30:00 ity [facility] 2021-12-14 2021-12-14 Telephone [facility] [id number] Univers 00:00:00 00:00:00 momondo [id number] it y of [place] [id number] Elan as KIRAN?BLEA [phone] Or dic[address] MEDICAL OFFICE BUILDING 2021-12-13 2021-12-13 Telephone [facility] [id number] Univers 00:00:00 00:00:00 momondo [id number] it y of [place] [id number] Elan as KIRAN?BLEA [phone] Or zuleima SCHWARTZ [address] [place] [address] OFFICE BUILDING 2021-12-13 2021-12-13 Telephone [facility] [id number] Univers 00:00:00 00:00:00 Nila HEALTH [id number] it y of [place] [id number] Elan as KIRAN?BLEA [phone] Or zuleima SCOTT[address] OFFICE BUILDING 2021-12-13 2021-12-13 Telephone [facility] [id number] Univers 00:00:00 00:00:00 Nila HEALTH [id number] [facility] [id number] Elan as KIRAN?BLEA [phone] Or zuleima SCOTT[address] OFFICE BUILDING 2021-12-12 2021-12-12 Office [facility] [id number] Univers 16:00:00 16:51:41 [facility] [id number] it y of [place] [id number] Elan as KIRAN?BLEA [phone] [address] OFFICE BUILDING 2021-12-12 2021-12-12 [facility] [id number] Univers 16:00:00 16:51:41 NILA angulo [facility] 2021-06-02 2021-06-02 Laboratory Lab, [facility] [id number] 20:27:39 20:47:39 Only Fam Pob I Health [id number] [place] 4.2.7.2.686 Professio [phone] [place] [address] Office [address] One 2021-06-02 2021-06-02 Outpatient DICLEMENTE_ GAURAV NOLASCO 918 [place] 11:05:00 11:05:00 NENITA 08Marlene da [facility] 2021-06-02 2021-06-02 Orders Doctor CROOK [id number] 00:00:00 00:00:00 Only Unassigned, DONY [id number] [place] [facility] [id number] [id number] [id number] 2021-06-02 2021-06-02 Telephone Lydia [facility] [id number] 00:00:00 00:00:00 Zelda Mariscal [id number] [place] [id number] Professio [phone] [facility] 231 [facility] 2021-01-18 2021-01-18 Patient [facility] [id number] 00:00:00 00:00:00 Outreach [facility] [id number] [facility] [id number] AMY [id number] 388 2020-09-15 2020-09-15 [facility] [id number] [place] 02:40:00 02:40:00 1118 Medical Group 2020-04-14 2020-04-14 Outpatient cMcDonald [facility] [id number] [place] 05:40:00 05:40:00 0619 Medical Group 2020-04-13 2020-04-13 Outpatient [facility] [id number] [place] 07:38:00 07:38:00 0616 Medical Group 2020-04-13 2020-04-13 Maia [facility] [place] - [id number] M atagor 00:00:00 00:00:00 Alex Cazares Medical [facility]ica brina STEINER: [address] [facility] [address], [place] [address] , Ph. [phone] 2020-01-23 2020-03-12 [facility] [id number] 11:11:01 16:10:25 ne Visit Lissa Mariscal [id number] [place] [id number] Profjuniorio [phone] [facility] 134 [facility] 2020-02-23 2020-02-26 Outpatient BRIAN [facility] MED 0118 RUST 14:38:00 13:00:00 JOANNE 2020-02-22 2020-02-23 Inpatient U APOLINAR, FB MED [id number] MHFB 19:57:00 13:45:00 CAM 2019-10-14 2019-10-14 Outpatient Teresita PHILLIPS [facility] [id number] [facility] 12:[facility] 12:28:00 0615 Medical Group Results This patient has no known results.
[2021-12-17] MEDS ORDERED: LORazepam 2 MG/ML VIAL ONE ×2 (10:30→11:49)
[2021-12-17] MEDS ORDERED: LEVETIRACETAM 500 MG/5 ML VIAL IV ONE (10:30)
[2021-12-17] MEDS ORDERED: NA CHLORIDE 0.9% 100 ML IV ONE (10:31)
[2021-12-17 10:49] LABS: Absolute Lymphocytes (CBC) 4.5 K/uL (0.7-4.9); Hematocrit 37.2 % (36.0-45.0); Lymphocytes % 51.6 % (15.3-44.8); MPV 8.9 fL (7.6-11.3); RBC Red Blood Cell Count 4.17 M/uL (3.86-4.86)
[2021-12-17 11:04] LABS: Urine Blood Trace-intact (Negative); Urine Glucose Negative (Negative); Urine Protein Negative (Negative); Urine Specific Gravity 1.025 (1.005-1.030)
[2021-12-17 11:19] LABS: Potassium 3.8 mmol/L (3.5-5.1)
[2021-12-17 11:20] LABS: Urine Bacteria >50 /HPF (<20); Urine RBC <5 /HPF (NONE SEEN)
[2021-12-17 11:21] LABS: Urine Trichomonas PRESENT (NONE SEEN)
[2021-12-17 11:23] LABS: Urine Specific Gravity/Preg 1.025 (1.005-1.030)
[2021-12-17 11:28] LABS: Barbiturates NEGATIVE (NEGATIVE); Benzodiazepines POSITIVE (NEGATIVE); Cocaine NEGATIVE (NEGATIVE); METHAMPHETAM NEGATIVE (NEGATIVE); Methadone NEGATIVE (NEGATIVE); Opiates NEGATIVE (NEGATIVE); Phencyclidine NEGATIVE (NEGATIVE); THC Cannibis NEGATIVE (NEGATIVE)
[2021-12-17 12:28] LABS: Blood Morphology Comment NOT SEEN (NOT SEEN); Platelet Estimate ADEQ
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
[2021-12-17] MEDS ORDERED: CEFTRIAXONE 1000 MG/VIAL ONE (16:49)
[2021-12-17] MEDS ORDERED: NA CHLORIDE 0.9% 50 ML ONE (16:50)
[2021-12-17] MEDS ORDERED: ACETAMINOPHEN 500 MG TAB ONE (17:54)
[2021-12-17 20:08] VITALS: BP 119/80; O2SAT 100
[2021-12-17 20:12] VITALS: TEMP 97.6
== END 2021-12-17 19:46 | disposition short-term general hospital (02) ==
LOC: ER 10:25
DX: G40.901 Epilepsy, unspecified, not intractable, with status epilepticus (principal); Z20.822 Contact with and (suspected) exposure to COVID-19; Z88.8 Allergy status to other drugs, medicaments and biological substances
CPT/HCPCS: 96365; 93005; 85025; 80048; 36415; 81025; 82947; 80307; 96375; 99285; 96366; U0003; J1953; 81003; 81015

== ENCOUNTER 2022-01-25 11:24 | Emergency (ER) | payer OTHER ==
--- OUTSIDE RECORDS SUMMARY | 2022-01-25 11:31 | XMS REPORT | Continuity of Care Document ---
:1990 Author Organization [facility] t Address [address] [place] [address] Care Team Providers Name Role Phone Alisia FREEMAN Primary Care Physician Unavailable ANNETTE BENNETT Attending Clinician Unavailable BRYAN Attending Clinician Unavailable HAYDER TIWARI Attending Clinician Unavailable Amanda PORTILLO Attending Clinician AMANDA Attending Clinician Unavailable Lab, Fam Pob I Attending Clinician Unavailable JANIS Attending Clinician Unavailable Doctor Unassigned, Name Attending Clinician Unavailable Alisia Freeman MD Attending Clinician Julio C Lopez DO Attending Clinician Teresita Attending Clinician Unavailable Cricket STEINER Attending Clinician JULIETA JACOBS Admitting Clinician Unavailable JANIS Admitting Clinician Unavailable Teresita Admitting Clinician Unavailable Payers Payer Name Policy Type Policy Number Effective Date Expiration Date Janes henriquez [facility] [id number] 2019 CHOICE MEDICAID 00:00:00 MEDICAID COMM [id number] 2021 HEALTH CHOICE 00:00:00 [facility] [id number] CHOICE (MEDICAID REPLACEMENT - HMO) Problems Condition Condition Condition Status Onset Resolution Last Treating Co mments Source Name Details Category Date Date Treatment Clinician Date Cough Cough Disease Active Univers 2-14 ity of 00:00: [place] [address] Medical Branch Congestion Congestion Disease Active U nivers of nasal of nasal 2-14 ity of sinus sinus 00:00: [place] [address] Medical Branch Nausea Nausea Disease Active Univers 2-14 ity of 00:00: [place] 00 Medical Branch Acute Acute Disease Active Univers [...] 3-12 ity of cycle cycle 00:00: [place] 00 Medical Branch Asthma, Asthma, Disease Active Univers [...] e Uncomplica Uncomplica Disease Active U nivers michi michi 6-24 ity of asthma, asthma, 00:00: [place] unspecifie unspecifie 00 Me dical d asthma d asthma Branch severity severity Pain of Pain of Disease Active Univers upper upper 6-24 ity of abdomen abdomen 00:00: [place] 00 Medical Branch Allergies, Adverse Reactions, Alerts Allergy Allergy Status Severity Reaction(s) Onset Inactive Treating Comm ents Source Name Type Date Date Clinician CARBAMAZ Allergy Active High [facility] FOSPHENY Allergy Active Itching [facility] TOIN 12[facility] [place] Allergy Active High Hives [facility] 04-20 [facility] [place] DRUG Active Hives Univers C INGREDI 04-20 ity of 00:00: [address] Branch [place] Propensi Active Shortness of Can shay e Univers c ty to Breath 04-20 aspirin ity of adverse 00:00: and [place] reaction ibuprofen Medic al s without Branch problem. Social History Social Habit Start Date Stop Date Quantity Comments Source History of 2012-04-20 Cigarette Smoker Universi ty of tobacco use 00:00:00 [facility] Exposure to Not sure University of SARS-CoV-2 [facility] (event) [place] Alcohol intake 2021-12-12 2021-12-12 Current University of 00:00:00 00:00:00 non-drinker of [facility] alcohol (finding) Branch Tobacco Comment 2019-01-07 2019-01-07 3-4 ciggs a day Univ ersity of 00:00:00 00:00:00 [facility] Tobacco use and 2017-04-20 2017-04-20 Never used Universit y of exposure 00:00:00 00:00:00 [facility] Sex Ass[birth year] At [birth year] Universit y of 00:00:00 00:00:00 [facility] Smoking Status Start Date Stop Date Source Never Smoker [facility] Light tobacco smoker 2017-04-20 00:00:00 Univers ity of [facility] Medications Ordered Filled Start Stop Current Ordering Indication Dosage Frequency Signature Comments Components Source Medication Medication Date Date Medication? Clinician (SIG) Name Name methylPREDN Yes [id number] Take by Univers ISolone 2-15 mouth ity of (MEDROL, 00:00: SEE-INSTRU [place] BAMBI,) 4 mg 00 CTIONS. Medica l tablets follow Branch package directions methylPREDN Yes [id number] Take by Univers ISolone 2-15 mouth ity of (MEDROL, 00:00: SEE-INSTRU [place] BAMBI,) 4 mg 00 CTIONS. Medica l tablets follow Branch package directions methylPREDN 2021- Yes [id number] Take by [facility] ISolone 12-13 mouth ity of (MEDROL, 00:00: 05:59 [place] 4 mg 00 :00 CTIONS for Med ical tablets 5 days. Branch follow package directions methylPREDN 2021- No [id number] Take by [facility] ISolone 12-13 mouth ity of (MEDROL, 00:00: [place] 4 mg 00 :00 CTIONS for Med ical tablets 5 days. Branch follow package directions omeprazole 2021- Yes [id number] 40mg Take 1 Univers 40 mg 2-09 01- capsule by ity of capsule 00:00: 05:59 mouth [place] 00 :00 daily for Medical 14 days. Branch omeprazole 2021- Yes [id number] 40mg Take 1 Univers 40 mg 2-09 01- capsule by ity of capsule 00:00: 05:59 mouth [place] 00 :00 daily for Medical 14 days. Branch omeprazole 2021- Yes [id number] 40mg Take 1 Univers 40 mg 2-14 - capsule by ity of capsule 00:00: 05:59 mouth [place] 00 :00 daily for Medical 14 days. Branch omeprazole 2021- Yes [id number] 40mg Take 1 Univers 40 mg 2-14 - capsule by ity of capsule 00:00: 05:59 mouth [place] 00 :00 daily for Medical 14 days. Branch omeprazole 2021- Yes [id number] 40mg Take 1 Univers 40 mg 2-14 - capsule by ity of capsule 00:00: 05:59 mouth [place] 00 :00 daily for Medical 14 days. Branch ciprofloxac 2021- Yes [id number] 4[drp] Place 4 Univers in-dexameth 12-12 [id number] Drops in it y of asone 00:00: 05:59 right ear [place] (CIPRODEX) 00 :00 2 (two) Medica l 0.3-0.1 % times Branch otic drops daily for 10 days. ibuprofen 2021- Yes [id number] 600mg Take 1 Univers 600 mg 12-12 [id number] tablet by ity of tablet 00:00: 05:59 mouth [place] 00 :00 every 6 Medical (six) Branch hours as needed for Pain (scale 4-6) for up to 10 days. bromphenira 2021- Yes [id number] 10mL Take 10 mL Univers mine-pseudo 12-12 by mouth 4 i ty of ephedrine-D 00:00: 05:59 (four) [place] M (BROMFED 00 :00 times Medical DM) 2-30-10 daily as Bran ch mg/5 mL needed for syrup Congestion /Allergies for up to 10 days. ondansetron 2021- Yes [id number] 4mg Take 1 Univers (ZOFRAN) 4 12-12 tablet by ity of mg tablet 00:00: 05:59 mouth [place] 00 :00 every 8 Medical (eight) Branch hours as needed for Nausea and Vomiting (N/V) for up to 10 days. ciprofloxac 2021- Yes [id number] 4[drp] Place 4 Univers in-dexameth 12-12 [id number] Drops in it y of asone 00:00: 05:59 right ear [place] (CIPRODEX) 00 :00 2 (two) Medica l 0.3-0.1 % times Branch otic drops daily for 10 days. ibuprofen 2021- Yes [id number] 600mg Take 1 Univers 600 mg 12-12 [id number] tablet by ity of tablet 00:00: 05:59 mouth [place] 00 :00 every 6 Medical (six) Branch hours as needed for Pain (scale 4-6) for up to 10 days. bromphenira 2021- Yes [id number] 10mL Take 10 mL Univers mine-pseudo 12-12 by mouth 4 i ty of ephedrine-D 00:00: 05:59 (four) [place] M (BROMFED 00 :00 times Medical DM) 2-30-10 daily as Bran ch mg/5 mL needed for syrup Congestion /Allergies for up to 10 days. ondansetron 2021- Yes [id number] 4mg Take 1 Univers (ZOFRAN) 4 12-12 tablet by ity of mg tablet 00:00: 05:59 mouth [place] 00 :00 every 8 Medical (eight) Branch hours as needed for Nausea and Vomiting (N/V) for up to 10 days. ciprofloxac 2021- Yes [id number] 4[drp] Place 4 Univers in-dexameth 12-12 [id number] Drops in it y of asone 00:00: 05:59 right ear [place] (CIPRODEX) 00 :00 2 (two) Medica l 0.3-0.1 % times Branch otic drops daily for 10 days. ibuprofen 2021- Yes [id number] 600mg Take 1 Univers 600 mg 12-12 [id number] tablet by ity of tablet 00:00: 05:59 mouth [place] 00 :00 every 6 Medical (six) Branch hours as needed for Pain (scale 4-6) for up to 10 days. bromphenira 2021- Yes [id number] 10mL Take 10 mL Univers mine-pseudo 12-12 by mouth 4 i ty of ephedrine-D 00:00: 05:59 (four) [place] M (BROMFED 00 :00 times Medical DM) 2-30-10 daily as Bran ch mg/5 mL needed for syrup Congestion /Allergies for up to 10 days. ondansetron 2021- Yes [id number] 4mg Take 1 Univers (ZOFRAN) 4 12-12 tablet by ity of mg tablet 00:00: 05:59 mouth [place] 00 :00 every 8 Medical (eight) Branch hours as needed for Nausea and Vomiting (N/V) for up to 10 days. ciprofloxac 2021- Yes [id number] 4[drp] Place 4 Univers in-dexameth 12-12 [id number] Drops in it y of asone 00:00: 05:59 right ear [place] (CIPRODEX) 00 :00 2 (two) Medica l 0.3-0.1 % times Branch otic drops daily for 10 days. ibuprofen 2021- Yes [id number] 600mg Take 1 Univers 600 mg 12-12 [id number] tablet by ity of tablet 00:00: 05:59 mouth [place] 00 :00 every 6 Medical (six) Branch hours as needed for Pain (scale 4-6) for up to 10 days. bromphenira 2021- Yes [id number] 10mL Take 10 mL Univers mine-pseudo 12-12 by mouth 4 i ty of ephedrine-D 00:00: 05:59 (four) [place] M (BROMFED 00 :00 times Medical DM) 2-30-10 daily as Bran ch mg/5 mL needed for syrup Congestion /Allergies for up to 10 days. ondansetron 2021- Yes [id number] 4mg Take 1 Univers (ZOFRAN) 4 12-12 tablet by ity of mg tablet 00:00: 05:59 mouth [place] 00 :00 every 8 Medical (eight) Branch hours as needed for Nausea and Vomiting (N/V) for up to 10 days. ciprofloxac 2021- Yes [id number] 4[drp] Place 4 Univers in-dexameth 12-12 [id number] Drops in it y of asone 00:00: 05:59 right ear [place] (CIPRODEX) 00 :00 2 (two) Medica l 0.3-0.1 % times Branch otic drops daily for 10 days. ibuprofen 2021- Yes [id number] 600mg Take 1 Univers 600 mg 12-12 [id number] tablet by ity of tablet 00:00: 05:59 mouth [place] 00 :00 every 6 Medical (six) Branch hours as needed for Pain (scale 4-6) for up to 10 days. bromphenira 2021- Yes [id number] 10mL Take 10 mL Univers mine-pseudo 12-12 by mouth 4 i ty of ephedrine-D 00:00: 05:59 (four) [place] M (BROMFED 00 :00 times Medical DM) 2-30-10 daily as Bran ch mg/5 mL needed for syrup Congestion /Allergies for up to 10 days. ondansetron 2021- Yes [id number] 4mg Take 1 Univers (ZOFRAN) 4 2-14 02-25 tablet by ity of mg tablet 00:00: 05:59 mouth [place] 00 :00 every 8 Medical (eight) Branch hours as needed for Nausea and Vomiting (N/V) for up to 10 days. sumatriptan 2020-10 [...] mouth. ity of (IMITREX 10:19: [place] ORAL) 04 Medical Branch cetirizine 2020-10 Yes [id number] 10mg Take 1 U nivers (ZYRTEC) 10 0-01 tablet by ity of mg tablet 00:00: mouth 00 daily. Medical Branch azelastine 2020-10 Yes [id number] 1{spray Use 1 Univers 137 mcg 0-01 } [place] in ity of (0.1 %) 00:00: each [place] nasal spray 00 nostril 2 Med ical (two) Branch times daily. Use in each nostril as directed fluticasone 2020-10 Yes [id number] 1{spray Use 1 Univers propionate 0-01 } [place] in ity o f 50 00:00: each [place] mcg/actuati 00 nostril Medic al on nasal daily. Branch spray cetirizine 2020-10 Yes [id number] 10mg Take 1 U nivers (ZYRTEC) 10 0-01 tablet by ity of mg tablet 00:00: mouth [place] 00 daily. Medical Branch azelastine 2020-10 Yes [id number] 1{spray Use 1 Univers 137 mcg 0-01 } [place] in ity of (0.1 %) 00:00: each [place] nasal spray 00 nostril 2 Med ical (two) Branch times daily. Use in each nostril as directed fluticasone 2020-10 Yes [id number] 1{spray Use 1 Univers propionate 0-01 } [place] in ity o f 50 00:00: each [place] mcg/actuati 00 nostril Medic al on nasal daily. Branch spray cetirizine 2020-10 Yes [id number] 10mg Take 1 U nivers (ZYRTEC) 10 0-01 tablet by ity of mg tablet 00:00: mouth [place] 00 daily. Medical Branch azelastine 2020-10 Yes [id number] 1{spray Use 1 Univers 137 mcg 0-01 } [place] in ity of (0.1 %) 00:00: each [place] nasal spray 00 nostril 2 Med ical (two) Branch times daily. Use in each nostril as directed fluticasone 2020-10 Yes [id number] 1{spray Use 1 Univers propionate 0-01 } [place] in ity o f 50 00:00: each [place] mcg/actuati 00 nostril Medic al on nasal daily. Branch spray cetirizine 2020-10 Yes [id number] 10mg Take 1 U nivers (ZYRTEC) 10 0-01 tablet by ity of mg tablet 00:00: mouth [place] 00 daily. Medical Branch azelastine 2020-10 Yes [id number] 1{spray Use 1 Univers 137 mcg 0-01 } [place] in ity of (0.1 %) 00:00: each [place] nasal spray 00 nostril 2 Med ical (two) Branch times daily. Use in each nostril as directed fluticasone 2020-10 Yes [id number] 1{spray Use 1 Univers propionate 0-01 } [place] in ity o f 50 00:00: each [place] mcg/actuati 00 nostril Medic al on nasal daily. Branch spray cetirizine 2020-10 Yes [id number] 10mg Take 1 U nivers (ZYRTEC) 10 0-01 tablet by ity of mg tablet 00:00: mouth [place] 00 daily. Medical Branch azelastine 2020-10 Yes [id number] 1{spray Use 1 Univers 137 mcg 0-01 } [place] in ity of (0.1 %) 00:00: each [place] nasal spray 00 nostril 2 Med ical (two) Branch times daily. Use in each nostril as directed fluticasone 2020-10 Yes [id number] 1{spray Use 1 Univers propionate 0-01 } [place] in ity o f 50 00:00: each [place] mcg/actuati 00 nostril Medic al on nasal daily. Branch spray bromphenira 2020-10- No [id number] 5mL Take 5 mL Univers mine-pseudo 0-01 02-14 by mouth 4 i ty of ephedrine-D 00:00: 00:00 (four) [place] M (BROMFED 00 :00 times Medical DM) 2-30-10 daily as Bran ch mg/5 mL needed for syrup Congestion /Allergies . ibuprofen 2021- No [id number] 600mg Take 1 Univers 600 mg 07-21 tablet by ity of tablet 00:00: 00:00 mouth [place] 00 :00 every 6 Medical (six) Branch hours as needed for Pain (scale 4-6). benzonatate Yes [id number] 100mg Take 1 Univers 100 mg 9-10 capsule by ity of capsule 00:00: mouth 3 [place] 00 (three) Medical times Branch daily as needed for Cough. benzonatate Yes [id number] 100mg Take 1 Univers 100 mg 9-10 capsule by ity of capsule 00:00: mouth 3 [place] 00 (three) Medical times Branch daily as needed for Cough. benzonatate Yes [id number] 100mg Take 1 Univers 100 mg 9-10 capsule by ity of capsule 00:00: mouth 3 [place] 00 (three) Medical times Branch daily as needed for Cough. benzonatate Yes [id number] 100mg Take 1 Univers 100 mg 9-10 capsule by ity of capsule 00:00: mouth 3 [place] 00 (three) Medical times Branch daily as needed for Cough. benzonatate Yes [id number] 100mg Take 1 Univers 100 mg 9-10 capsule by ity of capsule 00:00: mouth 3 [place] 00 (three) Medical times Branch daily as needed for Cough. medroxyPROG 0 Yes [id number] Take one Univers ESTERone 4-03 by mouth ity of (PROVERA) 00:00: days one [place] 10 mg 00 through 10 Medical tablet of each Branch month beginning 02/27/20. medroxyPROG 2020-0 Yes [id number] Take one Univers ESTERone 4-03 by mouth ity of (PROVERA) 00:00: days one [place] 10 mg 00 through 10 Medical tablet of each Branch month beginning 02/27/20. medroxyPROG 2020-0 Yes [id number] Take one Univers ESTERone 4-03 by mouth ity of (PROVERA) 00:00: days one [place] 10 mg 00 through 10 Medical tablet of each Branch month beginning 02/27/20. medroxyPROG 2020-0 Yes [id number] Take one Univers ESTERone 4-03 by mouth ity of (PROVERA) 00:00: days one [place] 10 mg 00 through 10 Medical tablet of each Branch month beginning 02/27/20. medroxyPROG 2020-0 Yes [id number] Take one Univers ESTERone 4-03 by mouth ity of (PROVERA) 00:00: days one [place] 10 mg 00 through 10 Medical tablet of each Branch month beginning 02/27/20. amitriptyli 2020-0 Yes [id number] 25mg Take 1 Univers ne 25 mg 3-26 tablet by ity of tablet 00:00: mouth at [place] [address] bedtime. Medical Branch metoprolol 2020-0 Yes [id number] 50mg Take 1 Univers tartrate 50 3-26 tablet by ity of mg tablet 00:00: mouth 2 [place] (two) Medical times Branch daily. amitriptyli 2020-0 Yes [id number] 25mg Take 1 Univers ne 25 mg 3-26 tablet by ity of tablet 00:00: mouth at [place] [address] bedtime. Medical Branch metoprolol 2020-0 Yes [id number] 50mg Take 1 Univers tartrate 50 3-26 tablet by ity of mg tablet 00:00: mouth 2 [place] 00 (two) Medical times Branch daily. amitriptyli 2020-0 Yes [id number] 25mg Take 1 Univers ne 25 mg 3-26 tablet by ity of tablet 00:00: mouth at [place] [address] bedtime. Medical Branch metoprolol 2020-0 Yes [id number] 50mg Take 1 Univers tartrate 50 3-26 tablet by ity of mg tablet 00:00: mouth 2 [place] 00 (two) Medical times Branch daily. amitriptyli 2020-0 Yes [id number] 25mg Take 1 Univers ne 25 mg 3-26 tablet by ity of tablet 00:00: mouth at [place] 00 bedtime. Medical Branch metoprolol 2020-0 Yes [id number] 50mg Take 1 Univers tartrate 50 3-26 tablet by ity of mg tablet 00:00: mouth 2 [place] 00 (two) Medical times Branch daily. amitriptyli 2020-0 Yes [id number] 25mg Take 1 Univers ne 25 mg 3-26 tablet by ity of tablet 00:00: mouth at [place] 00 bedtime. Medical Branch metoprolol 2020-0 Yes [id number] 50mg Take 1 Univers tartrate 50 3-26 tablet by ity of mg tablet 00:00: mouth 2 [place] 00 (two) Medical times Branch daily. budesonide- 2020-0 Yes [id number] 2{puff} Inhale 2 Univers formoteroL 2-14 Puffs 2 ity of 160-4.5 00:00: (two) [place] mcg/actuati 00 times Medical on inhaler daily. Branch indomethaci 2020-0 Yes [id number] 50mg Take 1 Univers n 50 mg 2-14 capsule by ity of capsule 00:00: mouth 3 [place] (three) Medical times Branch daily with meals. albuterol 2020-0 Yes [id number] 2{puff} Inhale 2 Univers 90 2-14 Puffs ity of mcg/actuati 00:00: every 6 [place] on inhaler 00 (six) Medical hours as Branch needed for Wheezing or Shortness of Breath. levETIRAcet 2020-0 Yes [id number] 500mg Take 1 Univers am (KEPPRA) 2-14 tablet by ity of 500 mg 00:00: mouth 2 [place] tablet 00 (two) Medical times Branch daily. budesonide- 2020-0 Yes [id number] 2{puff} Inhale 2 Univers formoteroL 2-14 Puffs 2 ity of 160-4.5 00:00: (two) [place] mcg/actuati 00 times Medical on inhaler daily. Branch indomethaci 2020-0 Yes [id number] 50mg Take 1 Univers n 50 mg 2-14 capsule by ity of capsule 00:00: mouth 3 [place] 00 (three) Medical times Branch daily with meals. albuterol 2020-0 Yes [id number] 2{puff} Inhale 2 Univers 90 2-14 Puffs ity of mcg/actuati 00:00: every 6 [place] on inhaler 00 (six) Medical hours as Branch needed for Wheezing or Shortness of Breath. levETIRAcet 2020-0 Yes [id number] 500mg Take 1 Univers am (KEPPRA) 2-14 tablet by ity of 500 mg 00:00: mouth 2 [place] tablet 00 (two) Medical times Branch daily. budesonide- 2020-0 Yes [id number] 2{puff} Inhale 2 Univers formoteroL 2-14 Puffs 2 ity of 160-4.5 00:00: (two) [place] mcg/actuati 00 times Medical on inhaler daily. Branch indomethaci 2020-0 Yes [id number] 50mg Take 1 Univers n 50 mg 2-14 capsule by ity of capsule 00:00: mouth 3 [place] 00 (three) Medical times Branch daily with meals. albuterol 2020-0 Yes [id number] 2{puff} Inhale 2 Univers 90 2-14 Puffs ity of mcg/actuati 00:00: every 6 [place] on inhaler 00 (six) Medical hours as Branch needed for Wheezing or Shortness of Breath. levETIRAcet 2020-0 Yes [id number] 500mg Take 1 Univers am (KEPPRA) 2-14 tablet by ity of 500 mg 00:00: mouth 2 [place] tablet 00 (two) Medical times Branch daily. budesonide- 2020-0 Yes [id number] 2{puff} Inhale 2 Univers formoteroL 2-14 Puffs 2 ity of 160-4.5 00:00: (two) [place] mcg/actuati 00 times Medical on inhaler daily. Branch indomethaci 2020-0 Yes [id number] 50mg Take 1 Univers n 50 mg 2-14 capsule by ity of capsule 00:00: mouth 3 [place] 00 (three) Medical times Branch daily with meals. albuterol 2020-0 Yes [id number] 2{puff} Inhale 2 Univers 90 2-14 Puffs ity of mcg/actuati 00:00: every 6 [place] on inhaler 00 (six) Medical hours as Branch needed for Wheezing or Shortness of Breath. levETIRAcet 2020-0 Yes [id number] 500mg Take 1 Univers am (KEPPRA) 2-14 tablet by ity of 500 mg 00:00: mouth 2 [place] tablet 00 (two) Medical times Branch daily. budesonide- 2019-0 Yes [id number] 2{puff} Inhale 2 Univers formoteroL 2-14 Puffs 2 ity of 160-4.5 00:00: (two) [place] mcg/actuati 00 times Medical on inhaler daily. Branch indomethaci 2019-0 Yes [id number] 50mg Take 1 Univers n 50 mg 2-14 capsule by ity of capsule 00:00: mouth 3 [place] 00 (three) Medical times Branch daily with meals. albuterol 2019-0 Yes [id number] 2{puff} Inhale 2 Univers 90 2-14 Puffs ity of mcg/actuati 00:00: every 6 [place] on inhaler 00 (six) Medical hours as Branch needed for Wheezing or Shortness of Breath. levETIRAcet 2019-0 Yes [id number] 500mg Take 1 Univers am (KEPPRA) 2-14 tablet by ity of 500 mg 00:00: mouth 2 [place] tablet 00 (two) Medical times Branch daily. topiramate 2019-0 Yes Univers 25 mg 1-28 ity of tablet 00:00: [place] Medical Branch topiramate 2020-0 Yes Univers 25 mg 1-28 ity of tablet 00:00: [place] [address] Medical Branch topiramate 2020-0 Yes Univers 25 mg 1-28 ity of tablet 00:00: [place] [facility] Branch topiramate 2020-0 Yes Univers 25 mg 1-28 ity of tablet 00:00: [place] Medical Branch topiramate 2020-0 Yes Univers 25 mg 1-28 ity of tablet 00:00: [place] [facility] carBAMazepi 2020-0 Yes Univer s ne 200 mg 1-20 ity of tablet 00:00: [place] [facility] carBAMazepi 2020-0 Yes Univer s ne 200 mg 1-20 ity of tablet 00:00: [place] [address] Medical Branch carBAMazepi 2020-0 Yes Univer s ne 200 mg 1-20 ity of tablet 00:00: [address] carBAMazepi 2020-0 Yes Univer s ne 200 mg 1-20 ity of tablet 00:00: [place] [address] Medical Branch carBAMazepi 2020-0 Yes Univer s ne 200 mg 1-20 ity of tablet 00:00: [place] [address] Medical Branch [place] Bl[place] Fe No [place] [...] Immunizations Ordered Filled Immunization Date Status Comments [facility] e Immunization Name Name SARS-COV-2 COVID-19 2021-10-12 Completed Unive rsity of MODERNA VACCINE 00:00:00 [place] [facility] SARS-COV-2 COVID-19 2021-10-12 Completed Unive rsity of MODERNA VACCINE 00:00:00 [facility] SARS-COV-2 COVID-19 2021-10-12 Completed Unive rsity of MODERNA VACCINE 00:00:00 [facility] SARS-COV-2 COVID-19 2021-10-12 Completed Unive rsity of MODERNA VACCINE 00:00:00 [facility] SARS-COV-2 COVID-19 2021-10-12 Completed Unive rsity of MODERNA VACCINE 00:00:00 [facility] SARS-COV-2 COVID-19 2021-09-14 Completed Unive rsity of MODERNA VACCINE 00:00:00 [facility] SARS-COV-2 COVID-19 2021-09-14 Completed Unive rsity of MODERNA VACCINE 00:00:00 [facility] SARS-COV-2 COVID-19 2021-09-14 Completed Unive rsity of MODERNA VACCINE 00:00:00 [facility] SARS-COV-2 COVID-19 2021-09-14 Completed Unive rsity of MODERNA VACCINE 00:00:00 [facility] SARS-COV-2 COVID-19 2021-09-14 Completed Unive rsity of MODERNA VACCINE 00:00:00 [facility] ical Branch Influenza Virus 2018-12-16 Completed Universit y of Vaccine Quad IM 3+ 00:00:00 [facility] Influenza Virus 2018-12-16 Completed Universit y of Vaccine Quad IM 3+ 00:00:00 [facility] Influenza Virus 2018-12-16 Completed Universit y of Vaccine Quad IM 3+ 00:00:00 [facility] Influenza Virus 2018-12-16 Completed Universit y of Vaccine Quad IM 3+ 00:00:00 [facility] Influenza Virus 2018-12-16 Completed Universit y of Vaccine Quad IM 3+ 00:00:00 [facility] Vital Signs Vital Name Observation Time Observation Value Comments Source HEIGHT 2021-12-17 23:33:00 162.6 cm WEIGHT 2021-12-17 21:14:00 104.781 kg HEIGHT 2021-12-17 23:33:00 162.6 cm WEIGHT 2021-12-17 21:14:00 104.781 kg Systolic blood 2021-12-12 22:09:00 119 mm[Hg] Univer sity of pressure [facility] Diastolic blood 2021-12-12 22:09:00 76 mm[Hg] Unive rsity of pressure [facility] Heart rate 2021-12-12 22:09:00 106 /min [facility] Body temperature 2021-12-12 22:09:00 [facility]83 [facility] Body height 2021-12-12 22:09:00 162.6 cm [facility] Body weight 2021-12-12 22:09:00 105.96 kg [facility] BMI 2021-12-12 22:09:00 40.10 kg/m2 [facility] Oxygen saturation in 2021-12-12 22:09:00 98 /min [facility] Arterial blood by [facility] Pulse oximetry Branch BP Diastolic 2020-04-13 00:00:00 83 mm[Hg] [facility] Height 2020-04-13 00:00:00 64 [in_i] [facility] BMI (Body Mass 2020-04-13 00:00:00 36.5 kg/m2 [facility] 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) Group BP Systolic 2020-04-13 00:00:00 [...] diff] Diagnostic Test 2020-04-13 CMP, serum or [facility] 00:00:00 plasma [code = Group CMP, serum or plasma] Diagnostic Test 2020-04-13 lipid panel, serum [facility] Pending 00:00:00 [code = lipid Group panel, serum] Diagnostic Test 2020-04-13 HBsAg (hepatitis B [facility] Pending 00:00:00 surface Ag), serum Group [code = HBsAg (hepatitis B surface Ag), serum] Diagnostic Test 2020-04-13 HIV (1+2) Ab [facility] 00:00:00 screen, serum Group [code = HIV (1+2) Ab screen, serum] Diagnostic Test 2020-04-13 RPR (rapid plasma [facility] Pending 00:00:00 reagin), serum Group [code = RPR (rapid plasma reagin), serum] Diagnostic Test 2020-04-13 TSH + free T4, [facility] Pending 00:00:00 serum [code = TSH Group + free T4, serum] Diagnostic Test 2020-04-13 pap, LB + HPV [facility] 00:00:00 [code = pap, LB + Group HPV] Diagnostic Test 2020-04-13 CT + NG + TV, DNA, [facility] Pending 00:00:00 urine/swab [code = Group CT + NG + TV, DNA, urine/swab] Encounters Start End Encounter Admission Attending Care Care Encounter Source Date/Time Date/Time Type Type Clinicians Facility Department ID 2021-12-22 2021-12-22 Outpatient ISHAN MARION [facility] [id number] Univers 08:30:00 08:30:00 [facility] 2021-12-17 2021-12-18 Inpatient AGUSTIN MEJIA Neurology [id number] [facility] 21:02:00 15:18:00 GUMARO 2021-12-14 2021-12-14 [facility] [id number] Univers 00:00:00 00:00:00 Nila HEALTH [id number] it y of [place] [id number] Elan as KIRAN?BLEA [phone] [address] MEDICAL OFFICE BUILDING 2021-12-13 2021-12-13 [place] [facility] [id number] Univers 00:00:00 00:00:00 Nila HEALTH [id number] it y of [place] [id number] Elan as KIRAN?BLEA [id number] [address] OFFICE [facility] 2021-12-13 2021-12-13 [place] [facility] [id number] Univers 00:00:00 00:00:00 Nila HEALTH [id number] it y of [place] [id number] Elan as KIRAN?BLEA [phone] [address] OFFICE [facility] 2021-12-13 2021-12-13 [place] [facility] [id number] Univers 00:00:00 00:00:00 Nila HEALTH [id number] it y of [place] [id number] Elan as KIRAN?BLEA [phone] [address] MEDICAL OFFICE [facility] 2021-12-12 2021-12-12 Office [facility] [id number] Univers 16:00:00 16:51:41 Visit Nila HEALTH [id number] it y of [place] [id number] Elan as KIRAN?BLEA [phone] [address] MEDICAL OFFICE [facility] 2021-12-12 2021-12-12 Outpatient R AMANDA [facility] [id number] Univers 16:00:00 16:51:41 NILA angulo of [facility] 2021-06-02 2021-06-02 Laboratory Lab, Adc [facility] [id number] 20:27:39 20:47:39 Only Fam Pob I Health [id number] [place] 4.2.7.2.686 Professio [phone] nal 044 Office [address] One 2021-06-02 2021-06-02 Outpatient DICLEMENTE_ GAURAV [facility] 918 [place] 11:05:00 11:05:00 NENITA 0805 [facility] 2021-06-02 2021-06-02 Orders Doctor AMBREEN [id number] 00:00:00 00:00:00 Only Unassigned, DONY [id number] [place] [facility] 4.2.7.2.686 [id number] [id number] 2021-06-02 2021-06-02 Telephone Lydia [facility] [id number] 00:00:00 00:00:00 Zelda Mariscal [id number] [place] [id number] Professio [phone] nal 231 Building 2021-01-18 2021-01-18 Patient John [facility] [id number] 00:00:00 00:00:00 Outreach [facility] [id number] [facility] [id number] AMY [id number] [facility] 2020-09-15 2020-09-15 Outpatient cMcDonald [facility] [id number] [place] 02:40:00 02:40:00 1118 [facility] 2020-04-14 2020-04-14 [facility] [id number] [place] 05:40:00 05:40:00 0619 [facility] 2020-04-13 2020-04-13 Out[facility] [id number] [place] 07:38:00 07:38:00 0616 [facility] 2020-04-13 2020-04-13 Maia [facility] [place] - [id number] M atagor 00:00:00 00:00:00 Alex [facility] brina STEINER: [address] [facility] [address], [place] [address] , Ph. [phone] 2020-01-23 2020-03-12 [facility] [id number] 11:11:01 16:10:25 ne Visit Lissa Mariscal [id number] [place] [id number] Professio [phone] [address] 2019-10-14 2019-10-14 Outpatient [facility] [id number] [facility] 12:28[facility]00 0615 [facility] Results Test Description Test Time Test Comments Results Result Comments Source BLOOD CULTURE 2021-12-23 06:00:39 Test Item Value Reference Range Interpretation Comme nts CULTURE (BEAKER) (test code = 1095) No growth in 5 days BLOOD [id number] 03:00:36 Test Item Value Reference Range Interpretation Comments CULTURE (BEAKER) (test No growth in 5 days code = 1095) URINALYSIS W/ REFLEX URINE [id number] 10:45:20 Test Item Value Reference Range Interpretation Comments COLOR (BEAKER) (test code = 470) Light Yellow CLARITY (BEAKER) (test code = Clear 469) SPECIFIC GRAVITY UA (BEAKER) 1.014 1.001-1.035 (test code = 468) PH UA (BEAKER) (test code = 467) 7.5 5.0-8.0 PROTEIN UA (BEAKER) (test code = Negative Negative 464) GLUCOSE UA (BEAKER) (test code = Negative Negative 365) KETONES UA (BEAKER) (test code = Negative Negative 371) BILIRUBIN UA (BEAKER) (test code Negative Negative = 462) BLOOD UA (BEAKER) (test code = Negative Negative 461) NITRITE UA (BEAKER) (test code = Negative Negative 465) LEUKOCYTE ESTERASE UA (BEAKER) Negative Negative (test code = 466) UROBILINOGEN UA (BEAKER) (test 0.2 mg/dL 0.2-1.0 code = 463) RBC UA (BEAKER) (test code = 1 /HPF 519) WBC UA (BEAKER) (test code = 1 /HPF 520) BACTERIA (BEAKER) (test code = Rare 517) MUCUS (BEAKER) (test code = Rare 1574) SQUAMOUS EPITHELIAL (BEAKER) 3 /HPF (test code = 516) CRYSTALS, URINE (BEAKER) (test None Seen code = 1521) SOURCE(BEAKER) (test code = 2795) Supervisor Wet Room ID - [auto]Supervisor Wet Room ID - techBASIC METABOLIC [id number] 04:19:43 Test Item Value Reference Range Interpretation Comments SODIUM (BEAKER) 139 meq/L 136-145 (test code = 381) POTASSIUM (BEAKER) 3.6 meq/L 3.5-5.1 (test code = 379) CHLORIDE (BEAKER) 108 meq/L 98-107 H (test code = 382) CO2 (BEAKER) (test 25 meq/L 22-29 code = 355) BLOOD UREA NITROGEN 13 mg/dL 7-21 (BEAKER) (test code = 354) CREATININE (BEAKER) 0.84 mg/dL 0.57-1.25 (test code = 358) GLUCOSE RANDOM 112 mg/dL 70-105 H (BEAKER) (test code = 652) CALCIUM (BEAKER) 9.0 mg/dL 8.4-10.2 (test code = 697) EGFR (BEAKER) (test 79 mL/min/1.73 ESTIMA MICHI GFR IS code = 1092) sq m NOT ACCURATE CREATININE CLEARANCE IN PREDICTING GLOMERULAR FILTRATION RATE . ESTIMATED GFR I S NOT APPLICABLE FOR DIALYSIS PATIEN TS. Supervisor Wet Room ID - SHELBY [facility] W/PLT COUNT & AUTO [id number] 04:14:48 Test Item Value Reference Range Interpretation Comments WHITE BLOOD CELL COUNT (BEAKER) 8.8 K/ L 3.5-10.5 (test code = 775) RED BLOOD CELL COUNT (BEAKER) 4.06 M/ L 3.93-5.22 (test code = 761) HEMOGLOBIN (BEAKER) (test code = 11.7 GM/DL 11.2-15.7 410) HEMATOCRIT (BEAKER) (test code = 37.5 % 34.1-44.9 411) MEAN CORPUSCULAR VOLUME (BEAKER) 92.4 fL 79.4-94.8 (test code = 753) MEAN CORPUSCULAR HEMOGLOBIN 28.8 pg 25.6-32.2 (BEAKER) (test code = 751) MEAN CORPUSCULAR HEMOGLOBIN CONC 31.2 GM/DL 32.2-35.5 L (BEAKER) (test code = 752) RED CELL DISTRIBUTION WIDTH 13.5 % 11.7-14.4 (BEAKER) (test code = 412) PLATELET COUNT (BEAKER) (test 298 K/CU MM 150-450 code = 756) MEAN PLATELET VOLUME (BEAKER) 10.5 fL 9.4-12.3 (test code = 754) NUCLEATED RED BLOOD CELLS 0 /100 WBC 0-0 (BEAKER) (test code = 413) NEUTROPHILS RELATIVE PERCENT 40 % (BEAKER) (test code = 429) LYMPHOCYTES RELATIVE PERCENT 47 % (BEAKER) (test code = 430) MONOCYTES RELATIVE PERCENT 8 % (BEAKER) (test code = 431) EOSINOPHILS RELATIVE PERCENT 4 % (BEAKER) (test code = 432) BASOPHILS RELATIVE PERCENT 1 % (BEAKER) (test code = 437) NEUTROPHILS ABSOLUTE COUNT 3.54 K/ L 1.56-6.13 (BEAKER) (test code = 670) LYMPHOCYTES ABSOLUTE COUNT 4.14 K/ L 1.18-3.74 H (BEAKER) (test code = 414) MONOCYTES ABSOLUTE COUNT (BEAKER) 0.74 K/ L 0.24-0.36 H (test code = 415) EOSINOPHILS ABSOLUTE COUNT 0.33 K/ L 0.04-0.36 (BEAKER) (test code = 416) BASOPHILS ABSOLUTE COUNT (BEAKER) 0.04 K/ L 0.01-0.08 (test code = 417) IMMATURE GRANULOCYTES-RELATIVE 0 % 0-1 PERCENT (BEAKER) (test code = 2285)
--- NOTE | 2022-01-25 12:10 | RAD REPORT ---
EXAM DESCRIPTION: RAD - Chest Single View - 01/25/2022 12:03 pm CLINICAL HISTORY: COUGH COMPARISON: Chest Single View dated 06/29/2021; Chest Single View dated 06/18/2021; Chest Single View d ated 12/24/2018; Chest Single View dated 12/14/2018 FINDINGS: Lines: None. Lungs: No evidence of edema or pneumonia. Pleural: No significant pleural effusions or pneumothorax. Cardiac: The heart size is within normal limits. Bones: No acute fractures. Other: IMPRESSION: No acute cardiopulmonary disease.
[2022-01-25] MEDS ORDERED: LIDOCAINE VISCOUS 2% SOLN 15 ML UDC ONE (12:35)
[2022-01-25] MEDS ORDERED: MAGNES/ALUMIN/SIMET 30ML UCUP ONE (12:35)
[2022-01-25 13:28] LABS: SARS-COV-2 RT PCR NEGATIVE (NEGATIVE)
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
[2022-01-25] MEDS ORDERED: ACETAMINOPHEN 500 MG TAB ONE (13:55)
[2022-01-25 14:05] VITALS: TEMP 99.4
[2022-01-25 14:07] VITALS: BP 117/76; O2SAT 99
== END 2022-01-25 13:57 | disposition home or self-care (01) ==
LOC: ER 11:24
DX: J10.1 Influenza due to other identified influenza virus with other respiratory manifestations (principal); Z20.822 Contact with and (suspected) exposure to COVID-19; I10 Essential (primary) hypertension; Z88.8 Allergy status to other drugs, medicaments and biological substances
CPT/HCPCS: 87070; 87081; 0240U; 71045; 99284

== ENCOUNTER 2022-03-10 12:17 | Emergency (ER) | payer BC, OTHER ==
--- OUTSIDE RECORDS SUMMARY | 2022-03-10 12:22 | XMS REPORT | Continuity of Care Document ---
:1990 Author Organization [facility] t Address [address] [place] [address] Care Team Providers Name Role Phone Alisia FREEMAN Primary Care Physician Unavailable ANNETTE BENNETT Attending Clinician Unavailable HAYDER TIWARI Attending Clinician Unavailable BRYAN Attending Clinician Unavailable Amanda PORTILLO Attending Clinician AMANDA Attending Clinician Unavailable Lab, Fam Pob I Attending Clinician Unavailable JANIS Attending Clinician Unavailable Doctor Unassigned, Name Attending Clinician Unavailable Alisia Freeman MD Attending Clinician Julio C Lopez DO Attending Clinician Teresita Attending Clinician Unavailable Cricket STEINER Attending Clinician PALOMA TORRES Attending Clinician Unavailable APOLINAR Attending Clinician Unavailable JULIETA JACOBS Admitting Clinician Unavailable JANIS Admitting Clinician Unavailable Teresita Admitting Clinician Unavailable BUCKY TIJERINA Admitting Clinician Unavailable Payers Payer Name Policy Type Policy Number Effective Date Expiration Date Janes henriquez [facility] [id number] 2019 CHOICE MEDICAID 00:00:00 MEDICAID COMM [id number] 2021 HEALTH CHOICE 00:00:00 HIM BCBS BLUE [id number] 2021 ADVANTAGE HMO 00:00:00 [facility] [id number] CHOICE (MEDICAID REPLACEMENT - HMO) Problems Condition Condition Condition Status Onset Resolution Last Treating Co mments Source Name Details Category Date Date Treatment Clinician Date Cough Cough Disease Active Univers 2-14 ity of 00:00: Medical Branch Congestion Congestion Disease Active U nivers of nasal of nasal 2-14 ity of sinus sinus 00:00: Medical Branch Nausea Nausea Disease Active Univers [...] (BMI 9-27 ity of 30-39.9) 30-39.9) 00:00: Medical Branch Irregular Irregular Disease Active Uni [...] Pain of Disease Active Univers upper upper -24 ity of abdomen abdomen 00:00: [place] 00 [facility] Branch Allergies, Adverse Reactions, Alerts Allergy Allergy Status Severity Reaction(s) Onset Inactive Treating Comm ents Source Name Type Date Date Clinician CARBAMAZ Allergy Active High [facility] FOSPHENY Allergy Active Itching [facility] KET[place]OLA Allergy Active High Hives [facility] [place] DRUG Active Hives Univers C INGREDI 04-20 ity of 00:00: [place] 00 [facility] Ket[place]ola Propensi Active Shortness of Can shay e Univers c ty to Breath 04-20 aspirin ity of adverse 00:00: and [place] reaction 00 ibuprofen Medic al s without Branch problem. Social History Social Habit Start Date Stop Date Quantity Comments Source History of 2012-04-20 Cigarette Smoker Universi ty of tobacco use 00:00:00 [facility] Exposure to Not sure [facility] SARS-CoV-2 [facility] (event) Branch Alcohol intake 2021-12-12 2021-12-12 Current University of 00:00:00 00:00:00 non-drinker of [facility] alcohol (finding) Branch Tobacco Comment 2019-01-07 2019-01-07 3-4 ciggs a day Univ ersity of 00:00:00 00:00:00 [facility] Tobacco use and 2017-04-20 2017-04-20 Never used Universit y of exposure 00:00:00 00:00:00 [facility] Sex Ass[birth year] At [birth year] Universit y of 00:00:00 00:00:00 [facility] Smoking Status Start Date Stop Date Source Never Smoker [facility] Light tobacco smoker 2017-04-20 00:00:00 Univers ity of [facility] Medications Ordered Filled Start Stop Current Ordering Indication Dosage Frequency Signature Comments Components Source Medication Medication Date Date Medication? Clinician (SIG) Name Name methylPREDN Yes [id number] Take by Univers ISolone 2-15 mouth ity of (MEDROL, 00:00: SEE-INSTRU [place] BAMBI,) 4 mg 00 CTIONS. Medica l tablets follow Branch package directions methylPREDN 2021- Yes [id number] Take by Univers ISolone 2-15 mouth ity of (MEDROL, 00:00: SEE-INSTRU [place] BAMBI,) 4 mg 00 CTIONS. Medica l tablets follow Branch package directions methylPREDN 2021- Yes [id number] Take by Univers ISolone 215 12-19 mouth ity of (MEDROL, 00:00: 05:59 [place] 4 mg 00 :00 CTIONS for Med ical tablets 5 days. Branch follow package directions methylPREDN 2021- No [id number] Take by [facility] ISolone 2-15 - mouth ity of (MEDROL, 00:00: 00:00 [place] 4 mg 00 :00 CTIONS for Med ical tablets 5 days. Branch follow package directions omeprazole 2021- Yes [id number] 40mg Take 1 Univers 40 mg 2-14 - capsule by ity of capsule 00:00: 05:59 mouth [place] 00 :00 daily for Medical 14 days. [place] omeprazole 2021- Yes [id number] 40mg Take 1 Univers 40 mg 2-14 - capsule by ity of capsule 00:00: 05:59 mouth [place] 00 :00 daily for Medical 14 days. [place] omeprazole 2021- Yes [id number] 40mg Take 1 Univers 40 mg 2-14 - capsule by ity of capsule 00:00: 05:59 mouth [place] 00 :00 daily for Medical 14 days. Branch omeprazole 2021- Yes [id number] 40mg Take 1 Univers 40 mg 2-14 03-01 capsule by ity of capsule 00:00: 05:59 mouth [place] 00 :00 daily for Medical 14 days. [place] omeprazole 2021- Yes [id number] 40mg Take 1 Univers 40 mg 2-14 03-01 capsule by ity of capsule 00:00: 05:59 mouth [place] 00 :00 daily for Medical 14 days. [place] bromphenira 2021- Yes [id number] 10mL Take 10 mL Univers mine-pseudo 12-12 by mouth 4 i ty of ephedrine-D 00:00: 05:59 (four) [place] M (BROMFED 00 :00 times Medical DM) 2-30-10 daily as Bran ch mg/5 mL needed for syrup Congestion /Allergies for up to 10 days. ondansetron 2021- Yes [id number] 4mg Take 1 Univers (ZOFRAN) 4 12-12 tablet by ity of mg tablet 00:00: 05:59 mouth [place] 00 :00 every 8 Medical (eight) Branch hours as needed for Nausea and Vomiting (N/V) for up to 10 days. ciprofloxac 2021- Yes [id number] 4[drp] Place 4 Univers in-dexameth 12-12 [id number] Drops in it y of asone 00:00: 05:59 right ear [place] (CIPRODEX) 00 :00 2 (two) Medica l 0.3-0.1 % times Branch otic drops daily for 10 days. ibuprofen 2021- Yes [id number] 600mg Take 1 Univers 600 mg 12-12 [id number] tablet by ity of tablet 00:00: 05:59 mouth [place] 00 :00 every 6 Medical (six) Branch hours as needed for Pain (scale 4-6) for up to 10 days. bromphenira 2021- Yes [id number] 10mL Take 10 mL Univers mine-pseudo 12-12 by mouth 4 i ty of ephedrine-D 00:00: 05:59 (four) [place] M (BROMFED 00 :00 times Medical DM) 2-30-10 daily as Bran ch mg/5 mL needed for syrup Congestion /Allergies for up to 10 days. ondansetron 2021- Yes [id number] 4mg Take 1 Univers (ZOFRAN) 4 12-12 tablet by ity of mg tablet 00:00: 05:59 mouth [place] 00 :00 every 8 Medical (eight) Branch hours as needed for Nausea and Vomiting (N/V) for up to 10 days. ciprofloxac 2021- Yes [id number] 4[drp] Place 4 Univers in-dexameth 12-12 [id number] Drops in it y of asone 00:00: 05:59 right ear [place] (CIPRODEX) 00 :00 2 (two) Medica l 0.3-0.1 % times Branch otic drops daily for 10 days. ibuprofen 2021- Yes [id number] 600mg Take 1 Univers 600 mg 12-12 [id number] tablet by ity of tablet 00:00: 05:59 mouth [place] 00 :00 every 6 Medical (six) Branch hours as needed for Pain (scale 4-6) for up to 10 days. bromphenira 2021- Yes [id number] 10mL Take 10 mL Univers mine-pseudo 12-12 by mouth 4 i ty of ephedrine-D 00:00: 05:59 (four) [place] M (BROMFED 00 :00 times Medical DM) 2-30-10 daily as Bran ch mg/5 mL needed for syrup Congestion /Allergies for up to 10 days. ondansetron 2021- Yes [id number] 4mg Take 1 Univers (ZOFRAN) 4 12-12 tablet by ity of mg tablet 00:00: 05:59 mouth [place] 00 :00 every 8 Medical (eight) Branch hours as needed for Nausea and Vomiting (N/V) for up to 10 days. ciprofloxac 2021- Yes [id number] 4[drp] Place 4 Univers in-dexameth 12-12 [id number] Drops in it y of asone 00:00: 05:59 right ear [place] (CIPRODEX) 00 :00 2 (two) Medica l 0.3-0.1 % times Branch otic drops daily for 10 days. ibuprofen 2021- Yes [id number] 600mg Take 1 Univers 600 mg 12-12 [id number] tablet by ity of tablet 00:00: 05:59 mouth [place] 00 :00 every 6 Medical (six) Branch hours as needed for Pain (scale 4-6) for up to 10 days. bromphenira 2021- Yes [id number] 10mL Take 10 mL Univers mine-pseudo 12-12 by mouth 4 i ty of ephedrine-D 00:00: 05:59 (four) [place] M (BROMFED 00 :00 times Medical DM) 2-30-10 daily as Bran ch mg/5 mL needed for syrup Congestion /Allergies for up to 10 days. ondansetron 2021- Yes [id number] 4mg Take 1 Univers (ZOFRAN) 4 12-12 tablet by ity of mg tablet 00:00: 05:59 mouth [place] 00 :00 every 8 Medical (eight) Branch hours as needed for Nausea and Vomiting (N/V) for up to 10 days. ciprofloxac 2021- Yes [id number] 4[drp] Place 4 Univers in-dexameth 12-12 [id number] Drops in it y of asone 00:00: 05:59 right ear [place] (CIPRODEX) 00 :00 2 (two) Medica l 0.3-0.1 % times Branch otic drops daily for 10 days. ibuprofen 2021- Yes [id number] 600mg Take 1 Univers 600 mg 12-12 [id number] tablet by ity of tablet 00:00: 05:59 mouth [place] 00 :00 every 6 Medical (six) Branch hours as needed for Pain (scale 4-6) for up to 10 days. bromphenira 2021- Yes [id number] 10mL Take 10 mL Univers mine-pseudo 12-12 by mouth 4 i ty of ephedrine-D 00:00: 05:59 (four) [place] M (BROMFED 00 :00 times Medical DM) 2-30-10 daily as Bran ch mg/5 mL needed for syrup Congestion /Allergies for up to 10 days. ondansetron 2021- Yes [id number] 4mg Take 1 Univers (ZOFRAN) 4 12-12 tablet by ity of mg tablet 00:00: 05:59 mouth [place] 00 :00 every 8 Medical (eight) Branch hours as needed for Nausea and Vomiting (N/V) for up to 10 days. ciprofloxac 2021- Yes [id number] 4[drp] Place 4 Univers in-dexameth 12-12 [id number] Drops in it y of asone 00:00: 05:59 right ear [place] (CIPRODEX) 00 :00 2 (two) Medica l 0.3-0.1 % times Branch otic drops daily for 10 days. ibuprofen 2021- Yes [id number] 600mg Take 1 Univers 600 mg -14 12-23 tablet by ity of tablet 00:00: 05:59 mouth [place] 00 :00 every 6 Medical (six) Branch hours as needed for Pain (scale 4-6) for up to 10 days. sumatriptan 2020-10 [...] ORAL) 04 Medical Branch cetirizine 2020-10 Yes [id number] 10mg Take 1 U nivers (ZYRTEC) 10 0-01 tablet by ity of mg tablet 00:00: mouth [place] 00 daily. Medical Branch azelastine 2020-10 Yes [id number] 1{spray Use 1 Univers 137 mcg 0-01 } Tarrs in ity of (0.1 %) 00:00: each [place] nasal spray 00 nostril 2 Med ical (two) Branch times daily. Use in each nostril as directed fluticasone 2020-10 Yes [id number] 1{spray Use 1 Univers propionate 0-01 } Tarrs in ity o f 50 00:00: each [place] mcg/actuati 00 nostril Medic al on nasal daily. Branch spray cetirizine 2020-10 Yes [id number] 10mg Take 1 U nivers (ZYRTEC) 10 0-01 tablet by ity of mg tablet 00:00: mouth [place] 00 daily. Medical Branch azelastine 2020-10 Yes [id number] 1{spray Use 1 Univers 137 mcg 0-01 } Tarrs in ity of (0.1 %) 00:00: each [place] nasal spray 00 nostril 2 Med ical (two) Branch times daily. Use in each nostril as directed fluticasone 2020-10 Yes [id number] 1{spray Use 1 Univers propionate 0-01 } Tarrs in ity o f 50 00:00: each [place] mcg/actuati 00 nostril Medic al on nasal daily. Branch spray cetirizine 2020-10 Yes [id number] 10mg Take 1 U nivers (ZYRTEC) 10 0-01 tablet by ity of mg tablet 00:00: mouth [place] 00 daily. Medical Branch azelastine 2020-10 Yes [id number] 1{spray Use 1 Univers 137 mcg 0-01 } Tarrs in ity of (0.1 %) 00:00: each [place] nasal spray 00 nostril 2 Med ical (two) Branch times daily. Use in each nostril as directed fluticasone 2020-10 Yes [id number] 1{spray Use 1 Univers propionate 0-01 } Tarrs in ity o f 50 00:00: each [place] mcg/actuati 00 nostril Medic al on nasal daily. Branch spray cetirizine 2020-10 Yes [id number] 10mg Take 1 U nivers (ZYRTEC) 10 0-01 tablet by ity of mg tablet 00:00: mouth [place] 00 daily. Medical Branch azelastine 2020-10 Yes [id number] 1{spray Use 1 Univers 137 mcg 0-01 } Tarrs in ity of (0.1 %) 00:00: each [place] nasal spray 00 nostril 2 Med ical (two) Branch times daily. Use in each nostril as directed fluticasone 2020-10 Yes [id number] 1{spray Use 1 Univers propionate 0-01 } Tarrs in ity o f 50 00:00: each [place] mcg/actuati 00 nostril Medic al on nasal daily. Branch spray cetirizine 2020-10 Yes [id number] 10mg Take 1 U nivers (ZYRTEC) 10 0-01 tablet by ity of mg tablet 00:00: mouth [place] 00 daily. Medical Branch azelastine 2020-10 Yes [id number] 1{spray Use 1 Univers 137 mcg 0-01 } Tarrs in ity of (0.1 %) 00:00: each [place] nasal spray 00 nostril 2 Med ical (two) Branch times daily. Use in each nostril as directed fluticasone 2020-10 Yes [id number] 1{spray Use 1 Univers propionate 0-01 } Tarrs in ity o f 50 00:00: each [place] mcg/actuati 00 nostril Medic al on nasal daily. Branch spray bromphenira 2020-10- No [id number] 5mL Take 5 mL Univers mine-pseudo 0- 02-14 by mouth 4 i ty of ephedrine-D 00:00: 00:00 (four) [place] M (BROMFED 00 :00 times Medical DM) 2-30-10 daily as Bran ch mg/5 mL needed for syrup Congestion /Allergies . ibuprofen 2021- No [id number] 600mg Take 1 Univers 600 mg 07-21-14 tablet by ity of tablet 00:00: 00:00 mouth [place] 00 :00 every 6 Medical (six) Branch hours as needed for Pain (scale 4-6). benzonatate Yes [id number] 100mg Take 1 Univers 100 mg 9-10 capsule by ity of capsule 00:00: mouth [place] (three) Medical times Branch daily as needed for Cough. benzonatate Yes [id number] 100mg Take 1 Univers 100 mg 9-10 capsule by ity of capsule 00:00: mouth 3 [place] (three) Medical times Branch daily as needed for Cough. benzonatate Yes [id number] 100mg Take 1 Univers 100 mg 9-10 capsule by ity of capsule 00:00: mouth 3 [place] (three) Medical times Branch daily as needed for Cough. benzonatate Yes [id number] 100mg Take 1 Univers 100 mg 9-10 capsule by ity of capsule 00:00: mouth 3 [place] (three) Medical times Branch daily as needed for Cough. benzonatate Yes [id number] 100mg Take 1 Univers 100 mg 9-10 capsule by ity of capsule 00:00: mouth 3 [place] (three) Medical times Branch daily as needed for Cough. medroxyPROG 2020-0 Yes [id number] Take one Univers ESTERone 4-03 by mouth ity of (PROVERA) 00:00: days [place] 10 mg 00 through 10 Medical tablet of each Branch month beginning 02/27/20. medroxyPROG 2020-0 Yes [id number] Take one Univers ESTERone 4-03 by mouth ity of (PROVERA) 00:00: days one [place] 10 mg 00 through 10 Medical tablet of each Branch month beginning 02/27/20. medroxyPROG 2020-0 Yes [id number] Take one Univers ESTERone 4-03 by mouth ity of (PROVERA) 00:00: days one [place] 10 mg 00 through 10 Medical tablet of each Branch month beginning 02/27/20. medroxyPROG 2020-0 Yes [id number] Take one Univers ESTERone 4-03 by mouth ity of (PROVERA) 00:00: days one [place] 10 mg 00 through 10 Medical tablet of each Branch month beginning 02/27/20. medroxyPROG 2020-0 Yes [id number] Take one Univers ESTERone 4-03 by mouth ity of (PROVERA) 00:00: days one [place] 10 mg 00 through 10 Medical tablet of each Branch month beginning 02/27/20. amitriptyli 2020-0 Yes [id number] 25mg Take 1 Univers ne 25 mg 3-26 tablet by ity of tablet 00:00: mouth at [place] [address] bedtime. Medical Branch metoprolol 2020-0 Yes [id number] 50mg Take 1 Univers tartrate 50 3-26 tablet by ity of mg tablet 00:00: mouth 2 [place] (two) Medical times Branch daily. amitriptyli 2020-0 Yes [id number] 25mg Take 1 Univers ne 25 mg 3-26 tablet by ity of tablet 00:00: mouth at [place] [address] bedtime. Medical Branch metoprolol 2020-0 Yes [id number] 50mg Take 1 Univers tartrate 50 3-26 tablet by ity of mg tablet 00:00: mouth 2 [place] (two) Medical times Branch daily. amitriptyli 2020-0 Yes [id number] 25mg Take 1 Univers ne 25 mg 3-26 tablet by ity of tablet 00:00: mouth at [place] 00 bedtime. Medical Branch metoprolol 2020-0 Yes [id number] 50mg Take 1 Univers tartrate 50 3-26 tablet by ity of mg tablet 00:00: mouth 2 [place] 00 (two) Medical times Branch daily. amitriptyli 2020-0 Yes [id number] 25mg Take 1 Univers ne 25 mg 3-26 tablet by ity of tablet 00:00: mouth at [place] 00 bedtime. Medical Branch metoprolol 2020-0 Yes [id number] 50mg Take 1 Univers tartrate 50 3-26 tablet by ity of mg tablet 00:00: mouth 2 [place] 00 (two) Medical times Branch daily. amitriptyli 2020-0 Yes [id number] 25mg Take 1 Univers ne 25 mg 3-26 tablet by ity of tablet 00:00: mouth at [place] 00 bedtime. Medical Branch metoprolol 2020-0 Yes [id number] 50mg Take 1 Univers tartrate 50 3-26 tablet by ity of mg tablet 00:00: mouth 2 [place] 00 (two) Medical times Branch daily. budesonide- 2020-0 Yes [id number] 2{puff} Inhale 2 Univers formoteroL 2-14 Puffs 2 ity of 160-4.5 00:00: (two) [place] mcg/actuati 00 times Medical on inhaler daily. Branch indomethaci 2020-0 Yes [id number] 50mg Take 1 Univers n 50 mg 2-14 capsule by ity of capsule 00:00: mouth 3 [place] 00 (three) Medical times Branch daily with meals. albuterol 2020-0 Yes [id number] 2{puff} Inhale 2 Univers 90 2-14 Puffs ity of mcg/actuati 00:00: every 6 [place] on inhaler 00 (six) Medical hours as Branch needed for Wheezing or Shortness of Breath. levETIRAcet 2020-0 Yes [id number] 500mg Take 1 Univers am (KEPPRA) 2-14 tablet by ity of 500 mg 00:00: mouth 2 [place] tablet 00 (two) Medical times Branch daily. budesonide- 2020-0 Yes [id number] 2{puff} Inhale 2 Univers formoteroL 2-14 Puffs 2 ity of 160-4.5 00:00: (two) [place] mcg/actuati 00 times Medical on inhaler daily. Branch indomethaci 2020-0 Yes [id number] 50mg Take 1 Univers n 50 mg 2-14 capsule by ity of capsule 00:00: mouth 3 [place] 00 (three) Medical times Branch daily with meals. albuterol 2020-0 Yes [id number] 2{puff} Inhale 2 Univers 90 2-14 Puffs ity of mcg/actuati 00:00: every 6 [place] on inhaler 00 (six) Medical hours as Branch needed for Wheezing or Shortness of Breath. levETIRAcet 2020-0 Yes [id number] 500mg Take 1 Univers am (KEPPRA) 2-14 tablet by ity of 500 mg 00:00: mouth 2 [place] tablet 00 (two) Medical times Branch daily. budesonide- 2020-0 Yes [id number] 2{puff} Inhale 2 Univers formoteroL 2-14 Puffs 2 ity of 160-4.5 00:00: (two) [place] mcg/actuati 00 times Medical on inhaler daily. Branch indomethaci 2020-0 Yes [id number] 50mg Take 1 Univers n 50 mg 2-14 capsule by ity of capsule 00:00: mouth 3 (three) Medical times Branch daily with meals. albuterol 2020-0 Yes [id number] 2{puff} Inhale 2 Univers 90 2-14 Puffs ity of mcg/actuati 00:00: every 6 [place] on inhaler 00 (six) Medical hours as Branch needed for Wheezing or Shortness of Breath. levETIRAcet 2020-0 Yes [id number] 500mg Take 1 Univers am (KEPPRA) 2-14 tablet by ity of 500 mg 00:00: mouth 2 [place] tablet 00 (two) Medical times Branch daily. budesonide- 2020-0 Yes [id number] 2{puff} Inhale 2 Univers formoteroL 2-14 Puffs 2 ity of 160-4.5 00:00: (two) [place] mcg/actuati 00 times Medical on inhaler daily. Branch indomethaci 2020-0 Yes [id number] 50mg Take 1 Univers n 50 mg 2-14 capsule by ity of capsule 00:00: mouth 3 [place] 00 (three) Medical times Branch daily with meals. albuterol 2020-0 Yes [id number] 2{puff} Inhale 2 Univers 90 2-14 Puffs ity of mcg/actuati 00:00: every 6 [place] on inhaler 00 (six) Medical hours as Branch needed for Wheezing or Shortness of Breath. levETIRAcet 2020-0 Yes [id number] 500mg Take 1 Univers am (KEPPRA) 2-14 tablet by ity of 500 mg 00:00: mouth 2 [place] tablet 00 (two) Medical times Branch daily. budesonide- 2020-0 Yes [id number] 2{puff} Inhale 2 Univers formoteroL 2-14 Puffs 2 ity of 160-4.5 00:00: (two) [place] mcg/actuati 00 times Medical on inhaler daily. Branch indomethaci 2020-0 Yes [id number] 50mg Take 1 Univers n 50 mg 2-14 capsule by ity of capsule 00:00: mouth 3 [place] 00 (three) Medical times Branch daily with meals. albuterol 2020-0 Yes [id number] 2{puff} Inhale 2 Univers 90 2-14 Puffs ity of mcg/actuati 00:00: every 6 [place] on inhaler 00 (six) Medical hours as Branch needed for Wheezing or Shortness of Breath. levETIRAcet 2020-0 Yes [id number] 500mg Take 1 Univers am (KEPPRA) 2-14 tablet by ity of 500 mg 00:00: mouth 2 [place] tablet 00 (two) Medical times Branch daily. topiramate 2020-0 Yes Univers 25 mg 1-28 ity of tablet 00:00: [place] 00 Medical Branch topiramate 2020-0 Yes Univers 25 mg 1-28 ity of tablet 00:00: [place] 00 Medical Branch topiramate 2020-0 Yes Univers 25 mg 1-28 ity of tablet 00:00: [place] 00 Medical Branch topiramate 2020-0 Yes Univers 25 mg 1-28 ity of tablet 00:00: [place] 00 Medical Branch topiramate 2020-0 Yes Univers 25 mg 1-28 ity of tablet 00:00: [place] 00 Medical Branch carBAMazepi 2020-0 Yes Univer s ne 200 mg 1-20 ity of tablet 00:00: [place] 00 Medical Branch carBAMazepi 2020-0 Yes Univer s ne 200 mg 1-20 ity of tablet 00:00: [place] Medical Branch carBAMazepi 2020-0 Yes Univer s ne 200 mg 1-20 ity of tablet 00:00: [place] 00 Medical Branch carBAMazepi 2020-0 Yes Univer s ne 200 mg 1-20 ity of tablet 00:00: [place] 00 Medical Branch carBAMazepi 2020-0 Yes Univer s ne 200 mg 1-20 ity of tablet 00:00: [place] 00 Medical Branch Blis[place] Fe Blisovi Fe No [...] Immunizations Ordered Filled Immunization Date Status Comments [facility] e Immunization Name Name SARS-COV-2 COVID-19 2021-10-12 Completed Unive rsity of MODERNA VACCINE 00:00:00 [facility] SARS-COV-2 COVID-19 2021-10-12 Completed Unive rsity of MODERNA VACCINE 00:00:00 [facility] SARS-COV-2 COVID-19 2021-10-12 Completed Unive rsity of MODERNA VACCINE 00:00:00 [facility] SARS-COV-2 COVID-19 2021-10-12 Completed Unive rsity of MODERNA VACCINE 00:00:00 [facility] SARS-COV-2 COVID-19 2021-10-12 Completed Unive rsity of MODERNA VACCINE 00:00:00 [facility] SARS-COV-2 COVID-19 2021-09-14 Completed Unive rsity of MODERNA VACCINE 00:00:00 [facility] SARS-COV-2 COVID-19 2021-09-14 Completed Unive rsity of MODERNA VACCINE 00:00:00 [facility] SARS-COV-2 COVID-19 2021-09-14 Completed Unive rsity of MODERNA VACCINE 00:00:00 [facility] SARS-COV-2 COVID-19 2021-09-14 Completed Unive rsity of MODERNA VACCINE 00:00:00 [facility] SARS-COV-2 COVID-19 2021-09-14 Completed Unive rsity of MODERNA VACCINE 00:00:00 [facility] Influenza Virus 2018-12-16 Completed Universit y [...] mm[Hg] Univer sity of pressure [facility] Diastolic blood 2021-12-12 22:09:00 76 mm[Hg] Unive rsity of pressure [facility] Heart rate 2021-12-12 22:09:00 106 [facility] Body temperature 2021-12-12 22:09:00 36.83 [place] Univ ersity [facility] Body height 2021-12-12 22:09:00 162.6 cm Universi ty [facility] Body weight 2021-12-12 22:09:00 105.96 kg [facility] BMI 2021-12-12 22:09:00 40.10 kg/m2 [facility] Oxygen saturation in 2021-12-12 22:09:00 98 /min [facility] Arterial blood by [facility] Pulse oximetry Branch BP Diastolic 2020-04-13 00:00:00 83 mm[Hg] [facility] Height 2020-04-13 00:00:00 64 [in_i] [facility] BMI (Body Mass 2020-04-13 00:00:00 36.5 kg/m2 [facility] Index) Group BP Systolic 2020-04-13 00:00:00 118 mm[Hg] [facility] Body Weight 2020-04-13 00:00:00 212.8 [facility]_av] [facility] Procedures This patient has no known procedures. Plan of Care Planned Activity Planned Date Details Comments Source Diagnostic Test 2020-04-13 [facility] Pending [facility]:00 [code = CBC w/ Group auto diff] Diagnostic Test 2020-04-13 CMP, serum or [facility] Pending 00:00:00 plasma [code = Group CMP, serum or plasma] Diagnostic Test 2020-04-13 lipid panel, serum [facility] Pending 00:00:00 [code = lipid Group panel, serum] Diagnostic Test 2020-04-13 HBsAg (hepatitis B [place] director [facility] operations Medical Pending 00:00:00 surface Ag), serum Group [code = HBsAg (hepatitis B surface Ag), serum] Diagnostic Test 2020-04-13 HIV (1+2) Ab [place] [facility] dichi Pending 00:00:00 screen, serum Group [code = HIV (1+2) Ab screen, serum] Diagnostic Test 2020-04-13 RPR (rapid plasma [place] [facility] Pending 00:00:00 reagin), serum Group [code = RPR (rapid plasma reagin), serum] Diagnostic Test 2020-04-13 TSH + free T4, [place] [facility] Pending 00:00:00 serum [code = TSH Group + free T4, serum] Diagnostic Test 2020-04-13 pap, LB + HPV [place] [facility] Pending 00:00:00 [code = pap, LB + Group HPV] Diagnostic Test 2020-04-13 CT + NG + TV, DNA, [place] [facility] operations [facility] Pending 00:00:00 urine/swab [code = Group CT + NG + TV, DNA, urine/swab] Encounters Start End Encounter Admission Attending Care Care Encounter Source Date/Time Date/Time Type Type Clinicians Facility Department ID 2021-12-22 2021-12-22 Outpatient Wendy DONALDISHAN [facility] [id number] Univers 08:30:00 08:30:00 ity of [facility] 2021-12-17 2021-12-18 Inpatient [facility] [id number] [facility] 21:02:00 15:18:00 GUMARO 2021-12-14 2021-12-14 Telephone [facility] [id number] Univers 00:00:00 00:00:00 Nila HEALTH [id number] it y of [place] [id number] Elan as KIRAN?BLEA [phone] [address] OFFICE [facility] 2021-12-13 2021-12-13 Telephone [facility] [id number] Univers 00:00:00 00:00:00 Nila HEALTH [id number] it y of [place] [id number] Elan as KIRAN?BLEA [id number] [address] OFFICE [facility] 2021-12-13 2021-12-13 [facility] [id number] Univers 00:00:00 00:00:00 Nila HEALTH [id number] it y of [place] [id number] Elan as KIRAN?BLEA [id number] [address] OFFICE [facility] 2021-12-13 2021-12-13 [facility] [id number] Univers 00:00:00 00:00:00 Nila HEALTH [id number] it y of [place] [id number] Elan as KIRAN?BLEA [phone] [address] OFFICE [facility] 2021-12-12 2021-12-12 Office [facility] [id number] Univers 16:00:00 16:51:41 Visit Nila HEALTH [id number] it y of [place] [id number] Elan as KIRAN?BLEA [phone] Or dicmatthias [facility] [address] MED[facility] OFFICE [facility]ILDING 2021-12-12 2021-12-12 Outpatient R WEIAlisia [facility] [id number] Univers 16:00:00 16:51:41 NILA angulo of [facility] 2021-06-02 2021-06-02 Laboratory Lab, [facility] [id number] 20:27:39 20:47:39 Only Fam Pob I Health [id number] [place] 4.2.7.2.686 Professio [phone] [place] [address] [address] [facility] 2021-06-02 2021-06-02 Outpatient DANIELLE [facility]OLASCO [facility] 91 [place] 11:05:00 11:05:00 NENITA 0805 [facility] 2021-06-02 2021-06-02 Orders Doctor AMBREEN [id number] 00:00:00 00:00:00 Only Unassigned, DONY 350.1.13.10 [place] [facility] [id number] [id number] [id number] 2021-06-02 2021-06-02 Telephone Lydia [facility] [id number] 00:00:00 00:00:00 Zelda Mariscal [id number] [place] 4.2.7.2.686 Professio [phone] [address] 2021-01-18 2021-01-18 Patient John [facility] [id number] 00:00:00 00:00:00 Outreach [facility] [id number] [facility] [id number] AMY [id number] [facility] 2020-09-15 2020-09-15 [facility]patient [facility] [id number] [place] 02:40:00 02:40:00 1118 [facility] 2020-04-14 2020-04-14 Outpatient Teresita PHILLIPS [facility] [id number] [place] 05:40:00 05:40:00 0619 Medical Group 2020-04-13 2020-04-13 [facility]patient [facility] [id number] [place] 07:38:00 07:38:00 0616 Medical Group 2020-04-13 2020-04-13 Maia [place]EDRA [place] - [id number] M [place] 00:00:00 00:00:00 Chon Olivas [facility] STEINER: [address] [facility] [address], [place] [address] , Ph. [phone] 2020-01-23 2020-03-12 Telemedici Harley, [facility] [id number] 11:11:01 16:10:25 ne Visit Lissa Mariscal 350.1.13.10 [place] [id number] Professio [phone] [address] 2020-02-23 2020-02-26 Outpatient BRIAN [facility] [id number] [facility] 14:38:00 13:00:00 JOANNE 2020-02-22 2020-02-23 Inpatient Thiago JIANG, FB MED [id number] [facility] 19:57:00 13:45:00 CAM 2019-10-14 2019-10-14 Outpatient [facility] [id number] [place] 12:28:00 12:28:00 0615 [facility] Results Test Description Test Time Test Comments Results Result Comments Source BLOOD CULTURE 2021-12-23 06:00:39 Test Item Value Reference Range Interpretation Comme nts CULTURE (BEAKER) (test code = 1095) No growth in 5 days BLOOD [id number] 03:00:36 Test Item Value Reference Range Interpretation Comments CULTURE (BEAKER) (test No growth in 5 days code = 1095) URINALYSIS W/ REFLEX URINE [id number] 10:45:20 Test Item Value Reference Range Interpretation [...] code = 1521) SOURCE(BEAKER) (test code = 9025) Wet Trimmer ID - [auto]Wet Trimmer ID - techBASIC METABOLIC [id number] 04:19:43 Test Item Value Reference Range Interpretation [...] S NOT APPLICABLE FOR DIALYSIS PATIEN TS. Wet Trimmer ID - SHELBY MCBC W/PLT COUNT & AUTO [id number] 04:14:48 Test Item Value Reference Range Interpretation [...] 417) IMMATURE GRANULOCYTES-RELATIVE 0 % 0-1 PERCENT (JOSE G) (test code = 2801)
[2022-03-10] MEDS ORDERED: levETIRAcetam 1,000 MG in NA CHLORIDE 0.9% 100 ML IV ONE (13:00)
[2022-03-10] MEDS ORDERED: FOSPHENYTOIN PE 1,000 MG in NA CHLORIDE 0.9% 100 ML IV ONE (13:00)
[2022-03-10 13:04] LABS: Absolute Lymphocytes (CBC) 3.3 K/uL (0.7-4.9); Hematocrit 37.3 % (36.0-45.0); Lymphocytes % 42.4 % (15.3-44.8); MPV 8.7 fL (7.6-11.3)
[2022-03-10 13:20] LABS: Potassium 4.1 mmol/L (3.5-5.1)
[2022-03-10] MEDS ORDERED: LORazepam 2 MG/ML VIAL ONE (13:32)
[2022-03-10] MEDS ORDERED: DIPHENHYDRAMINE 50 MG/ML VIAL ONE (13:39)
[2022-03-10 13:46] LABS: Urine Blood Negative (Negative); Urine Glucose Negative (Negative); Urine Protein Negative (Negative); Urine Specific Gravity >=1.030 (1.005-1.030)
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
[2022-03-10] MEDS ORDERED: FAMOTIDINE 20 MG/2 ML VIAL IV ONE (15:06)
[2022-03-10] MEDS ORDERED: ACETAMINOPHEN 500 MG TAB ONE (15:06)
[2022-03-10 16:34] VITALS: TEMP 98
[2022-03-10 16:37] VITALS: BP 117/83; O2SAT 97
--- NOTE | 2022-03-13 10:09 | EKG ---
Test Date: 2022-03-10 Test Time: 13:30:20 Laborer/Grade Check: JIM MEASUREMENT RESULTS: Intervals: Rate: 98 MA: 156 QRSD: 80 QT: 356 QTc: 454 [place]: P: 59 MA: 156 QRS: 84 T: 5 INTERPRETIVE STATEMENTS: Normal sinus rhythm Cannot rule out Anterior infarct, age undetermined Abnormal ECG Compared to ECG 12/17/2021 10:35:13 Myocardial infarct finding now present Electronically Signed On 03-13-22 10:03:07 CDT by Solo Marie
== END 2022-03-10 15:37 | disposition home or self-care (01) ==
LOC: ER 12:17
DX: G40.89 Other seizures (principal); I10 Essential (primary) hypertension; Z88.8 Allergy status to other drugs, medicaments and biological substances
CPT/HCPCS: 93005; 85025; 80048; 36415; 81025; 81003; 96375; 96374; 99284; J1200; Q2009; J1953; J3490

== ENCOUNTER 2022-04-26 23:02 | Emergency (ER) | payer BC, OTHER ==
[2022-04-27] MEDS ORDERED: LORazepam 2 MG/ML VIAL ONE (00:43)
[2022-04-27] MEDS ORDERED: IBUPROFEN 400 MG TAB ONE (01:20)
[2022-04-27] MEDS ORDERED: FAMOTIDINE 20 MG/2 ML VIAL IV ONE (01:26)
[2022-04-27] MEDS ORDERED: DIPHENHYDRAMINE 50 MG/ML VIAL ONE (01:26)
[2022-04-27] MEDS ORDERED: NA CHLORIDE 0.9% 50 ML ONE (01:26)
[2022-04-27] MEDS ORDERED: ACETAMINOPHEN 500 MG TAB ONE (01:26)
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
[2022-04-27 03:07] VITALS: TEMP 98.6; O2SAT 95
[2022-04-27 03:08] VITALS: BP 106/77
== END 2022-04-27 02:16 | disposition home or self-care (01) ==
LOC: ER 23:02
DX: G40.89 Other seizures (principal); I10 Essential (primary) hypertension; Z88.8 Allergy status to other drugs, medicaments and biological substances
CPT/HCPCS: 96375; 96374; 99284; J1200; J3490

== ENCOUNTER 2022-04-27 12:21 | Emergency (ER) | payer BC, OTHER ==
[2022-04-27] MEDS ORDERED: LEVETIRACETAM 500 MG/5 ML VIAL IV ONE (13:09)
[2022-04-27] MEDS ORDERED: NA CHLORIDE 0.9% 1,000 ML ONE (13:09)
[2022-04-27 13:16] LABS: Absolute Lymphocytes (CBC) 3.2 K/uL (0.7-4.9); Lymphocytes % 45.5 % (15.3-44.8); MCV 88.5 fL (80-100); MPV 8.8 fL (7.6-11.3); RBC Red Blood Cell Count 4.18 M/uL (3.86-4.86)
[2022-04-27] MEDS ORDERED: HYDROMORPHONE HCL 0.5 MG/0.5 ML INJ ONE (13:16)
[2022-04-27 13:29] LABS: Protime INR 1.15
--- NOTE | 2022-04-27 13:52 | RAD REPORT ---
EXAM DESCRIPTION: CT - Head Brain Wo Cont - 04/27/2022 1:41 pm CLINICAL HISTORY: Seizure disorder, no clinical change Headache, drowsiness, seizure COMPARISON: Head Brain Wo Cont dated 12/16/2021; Head Brain Wo Cont dated 09/06/2021 TECHNIQUE: All CT scans are performed using dose optimization technique as appropriate and may inclu de automated exposure control or mA/KV adjustment according to patient size. FINDINGS: No intracranial hemorrhage, hydrocephalus or extra-axial fluid collection.No areas of brai n edema or evidence of midline shift. The paranasal sinuses and mastoids are clear. The calvarium is intact. IMPRESSION: No acute intracranial abnormality.
[2022-04-27 14:28] LABS: ALT/SGPT 23 U/L (12-78); AST/SGOT 13 U/L (15-37); Albumin 3.3 g/dL (3.4-5.0); Alkaline Phosphatase 81 U/L (45-117); BUN Blood Urea Nitrogen 10 mg/dL (7-18); Bicarbonate 25 mmol/L (21-32); Bilirubin Direct 0.1 mg/dL (0-0.2); Bilirubin Total 0.6 mg/dL (0.2-1.0); Glomerular Filtration Rate 76 ml/min (=/>90); Glucose Level 80 mg/dL (74-106); Potassium 3.7 mmol/L (3.5-5.1); Protein, Total 6.8 g/dL (6.4-8.2); Sodium Level 138 mmol/L (136-145)
[2022-04-27 14:45] LABS: Valproic Acid (Depakene) Level < 3.0 ug/mL (50-100)
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
[2022-04-27] MEDS ORDERED: carBAMazepine 200 MG TAB ONE (15:09)
[2022-04-27 15:33] VITALS: TEMP 98; O2SAT 99
[2022-04-27 15:36] VITALS: BP 120/79
== END 2022-04-27 15:29 | disposition home or self-care (01) ==
LOC: ER 12:21
DX: G40.509 Epileptic seizures related to external causes, not intractable, without status epilepticus (principal); I10 Essential (primary) hypertension; Z88.8 Allergy status to other drugs, medicaments and biological substances
CPT/HCPCS: 96365; 85025; 80048; 36415; 80320; 80156; 80329 ×2; 85610; 80076; 80164; 85730; 70450; 96375; 99284; 96366; J1953; J1170; J7030

== ENCOUNTER 2022-09-26 16:39 | Emergency (ER) | payer BC, OTHER ==
--- OUTSIDE RECORDS SUMMARY | 2022-09-26 16:43 | XMS REPORT | Continuity of Care Document ---
:1990 Author Organization [facility] t Address [address] [place] [address] Care Team Providers Name Role Phone ZELDA FREEMAN Primary Care Physician Unavailable JANIS Attending Clinician Unavailable ISHAN BENNETT Attending Clinician Unavailable MARYLU TIWARI Attending Clinician Unavailable Brett Adams MD Attending Clinician Edgardo Jacobs MD Attending Clinician [phone] Marylu Tiwari MD Attending Clinician BRETT ADAMS Attending Clinician Unavailable Nila Rhoades Attending Clinician NILA VILLAGRAN Attending Clinician Unavailable ZELDA FREEMAN Attending Clinician Unavailable AIDAN REYNOSO Attending Clinician Unavailable Nurse, Adc Pob Immunization Attending Clinician Unavailable Aidan Reynoso DO Attending Clinician Gisell Villegas MD Attending Clinician Unknown, Attending Attending Clinician Unavailable UNKNOWN, ATTENDING Attending Clinician Unavailable Vanessa Marshall Attending Clinician Doctor Unassigned, Kaplan Attending Clinician Unavailable Zelda Freeman MD Attending Clinician [phone] Lab, Adc Fam Pob I Attending Clinician Unavailable Cedric Burgos Attending Clinician CEDRIC HURST Attending Clinician Unavailable Teresita Attending Clinician Unavailable Matt Foster MD Attending Clinician JOANNE TORRES Attending Clinician Unavailable CAM JIANG Attending Clinician Unavailable MATT FOSTER Attending Clinician Unavailable JANIS Admitting Clinician Unavailable EDGARDO JACOBS Admitting Clinician Unavailable Teresita Admitting Clinician Unavailable JAILENE TIJERINA Admitting Clinician Unavailable Payers Payer Name Policy Type Policy Number Effective Date Expiration Date Janes henriquez [facility] [id number] 2019 [facility] MEDICAID 00:00:[address] MED[address] [id number] [facility] 00:00:00 HIM BCBS BLUE [id number] 2021 ADVANTAGE HMO 00:00:00 [facility] [id number] [facility] (MEDICAID REPLACEMENT - HMO) Problems Condition Condition Condition Status Onset Resolution Last Treating Co mments Source Name Details Category Date Date Treatment Clinician Date Status Status Disease Active [facility] 00:00: Medical [address] [place] [address] UTI due to UTI due to Disease Active [facility] trichomona trichomona 2-20 [facility]anda kes s s 00:00: Medical vaginalis vaginalis 00 Cent er Epilepsy Epilepsy Disease [facility] Medical [address] [place] [address] Cough Cough Disease Active Univers 2-14 ity of 00:00: [address] Congestion Congestion Disease Active U nivers of nasal of nasal 2-14 ity of sinus sinus 00:00: [address] Nausea Nausea Disease Active Univers 2-14 ity of 00:00: [address] Acute Acute Disease Active Univers otitis otitis [...] 9-27 ity of 30-39.9) 30-39.9) 00:00: [place] [facility] Irregular Irregular Disease Active Uni vers menstrual menstrual 3-12 ity of cycle cycle 00:00: [place] 00 Medical Branch Asthma, Asthma, Disease Active [...] 6-24 it y of on on 00:00: [place] 00 Medical Branch Other Other Disease Active [...] upper 6-24 ity of abdomen abdomen 00:00: [place] 00 Medical Branch Allergies, Adverse Reactions, Alerts Allergy Allergy Status Severity Reaction(s) Onset Inactive Treating Comm ents Source Name Type Date Date Clinician Fospheny Propensi Active Itching [facility] adverse 00:[facility]: Medical reaction 00 Center s Carbamaz Propensi Active Shortness Of [facility] epine ty to Breath, 2-19 [facility] adverse Itching, 00:00: Medical reaction Rash 00 Center s CARBAMAZ Allergy Active High Sob [facility] EPINE 2-19 [facility] 00:00: Medical 00 Center FOSPHENY Allergy Active Itching [facility] TOIN -19 [facility] 00:00: Medical 00 [place] KETOROLA DRUG Active Hives Univers C INGREDI 04-20 ity of 00:00: [place] 00 [facility] Branch Ket[place] Propensi Active Shortness of Can shay e Univers c ty to Breath 04-20 aspirin ity of adverse 00:00: and [place] reaction 00 ibuprofen Medic al s without Branch problem. [place] Drug Active Hives, Can take [facility] c Allergy Itching, 04-20 aspirin [facility] Rash, 00:00: and Medical Shortness Of 00 ibuprofen C enter Breath without problem. KETOROLA Allergy Active High Hives [facility] 04-20 [facility] 00:00: Medical 00 [place] Social History Social Habit Start Date Stop Date Quantity Comments Source History of 2012-04-20 Cigarette Smoker Universi ty of tobacco use 00:00:00 [facility] [place] [facility] Exposure to Not sure University of SARS-CoV-2 [facility] (event) Branch History SDOH [facility] Alcohol Std Medical Cente r Drinks History SDOH [facility] Alcohol Binge Medical Jatin[address] ter History SDOH [facility] Alcohol Comment Medical C enter Alcohol intake 2021-12-18 2021-12-[address] [facility] es 00:00:00 00:00:00 non-drinker Medical Cente r (finding) History SDOH 2021-12-18 2021-12-[address] [facility] Alcohol Frequency 00:00:00 00:00:00 [facility] Tobacco Comment 2019-01-07 2019-01-07 3-4 ciggs a day Univ ersity of 00:00:00 00:00:00 [facility] [place] [facility] Tobacco use and 2017-04-20 2017-04-20 Never used Universit y of exposure 00:00:00 00:00:00 [facility] [place] [facility] Sex Assigned At [address] [facility] kes 00:00:00 00:00:00 Medical Center Smoking Status Start Date Stop Date Source Never smoker [facility] Light tobacco smoker 2017-04-20 00:00:00 Univers ity of [facility] [place] [facility] Medications Ordered Filled Start Stop Current Ordering Indication Dosage Frequency Signature Comments Components Source Medication Medication Date Date Medication? Clinician (SIG) Name Name levETIRAcet 0 Yes 500mg Q.5D Take [address] [facility] (KEPPRA) 2-20 tablet [facility] 500 MG 00:00: (500 mg Medical tablet 00 total) by Center mouth 2 (two) times daily. traMADoL Yes 100mg Take [address] 100 mg Tab 2-20 mg by [facility] 00:00: mouth Medical 00 every 8 Center (eight) hours as needed. Max Daily Amount: 300 mg metroNIDAZO 2021-0 2021- No 500mg Q.5D Take [address] [facility] (FLAGYL) -20 - tablet [facility] 500 MG 00:00: 23:59 (500 mg Medical tablet 00 :00 total) by Center mouth 2 (two) times daily for 7 days First dose 2/ PM. Start twice daily dosing 2 AM. HYDROcodone 2021- No 1{tbl} Take [address] -acetaminop 12-18 tablet by Maranda pathak (NORCO 00:00: 23:59 mouth Medic al 5-325) 00 :00 every 8 Center 5-325 mg (eight) per tablet hours as needed (Severe pain) for up to 2 days. Max Daily Amount: 3 tablets methylPREDN 2021-0 Yes [id number] Take by Univers ISolone 2-15 mouth ity of (MEDROL, 00:00: SEE-INSTRU [place] BAMBI,) 4 mg 00 CTIONS. Medica l tablets follow Branch package directions methylPREDN 2021-0 Yes [id number] Take by Univers ISolone 2-15 mouth ity of (MEDROL, 00:00: SEE-INSTRU [place] BAMBI,) 4 mg 00 CTIONS. Medica l tablets follow Branch package directions methylPREDN 2021-0 2021- No [id number] Take by Univers ISolone 2-15 - mouth ity of (MEDROL, 00:00: 05:59 [place] 4 mg 00 :00 CTIONS for Med ical tablets 5 days. Branch follow package directions methylPREDN 2021-0 2021- No [id number] Take by Univers ISolone 2-15 -15 mouth ity of (MEDROL, 00:00: 00:00 [place] 4 mg 00 :00 CTIONS for Med ical tablets 5 days. [place] follow package directions omeprazole 2021- No [id number] 40mg Take 1 Univers 40 mg 12-12 capsule by ity of capsule 00:00: 05:59 mouth [place] 00 :00 daily for Medical 14 days. [place] omeprazole 2021- No [id number] 40mg Take 1 Univers 40 mg 12-12 capsule by ity of capsule 00:00: 05:59 mouth [place] 00 :00 daily for Medical 14 days. [place] omeprazole 2021- No [id number] 40mg Take 1 Univers 40 mg 12-12 capsule by ity of capsule 00:00: 05:59 mouth [place] 00 :00 daily for Medical 14 days. [place] omeprazole 2021- No [id number] 40mg Take 1 Univers 40 mg 12-12 capsule by ity of capsule 00:00: 05:59 mouth [place] 00 :00 daily for Medical 14 days. [place] omeprazole 2021- No [id number] 40mg Take 1 Univers 40 mg 12-12 capsule by ity of capsule 00:00: 05:59 mouth [place] 00 :00 daily for Medical 14 days. [place] bromphenira 2021- No [id number] 10mL Take 10 mL Univers mine-pseudo 12-12 by mouth 4 i ty of ephedrine-D 00:00: 05:59 (four) [place] M (BROMFED 00 :00 times Medical DM) 2-30-10 daily as Bran ch mg/5 mL needed for syrup Congestion /Allergies for up to 10 days. ondansetron 2021- No [id number] 4mg Take 1 Univers (ZOFRAN) 4 12-12 tablet by ity of mg tablet 00:00: 05:59 mouth [place] 00 :00 every 8 Medical (eight) Branch hours as needed for Nausea and Vomiting (N/V) for up to 10 days. ciprofloxac 2021- No [id number] 4[drp] Place 4 Univers in-dexameth 12-12 [id number] Drops in it y of asone 00:00: 05:59 right ear [place] (CIPRODEX) 00 :00 2 (two) Medica l 0.3-0.1 % times Branch otic drops daily for 10 days. ibuprofen 2021- No [id number] 600mg Take 1 Univers 600 mg 12-12 [id number] tablet by ity of tablet 00:00: 05:59 mouth [place] 00 :00 every 6 Medical (six) Branch hours as needed for Pain (scale 4-6) for up to 10 days. bromphenira 2021- No [id number] 10mL Take 10 mL Univers mine-pseudo 12-12 by mouth 4 i ty of ephedrine-D 00:00: 05:59 (four) [place] M (BROMFED 00 :00 times Medical DM) 2-30-10 daily as Bran ch mg/5 mL needed for syrup Congestion /Allergies for up to 10 days. ondansetron 2021- No [id number] 4mg Take 1 Univers (ZOFRAN) 4 12-12 tablet by ity of mg tablet 00:00: 05:59 mouth [place] 00 :00 every 8 Medical (eight) Branch hours as needed for Nausea and Vomiting (N/V) for up to 10 days. ciprofloxac 2021- No [id number] 4[drp] Place 4 Univers in-dexameth 12-12 [id number] Drops in it y of asone 00:00: 05:59 right ear [place] (CIPRODEX) 00 :00 2 (two) Medica l 0.3-0.1 % times Branch otic drops daily for 10 days. ibuprofen 2021- No [id number] 600mg Take 1 Univers 600 mg 12-12 [id number] tablet by ity of tablet 00:00: 05:59 mouth [place] 00 :00 every 6 Medical (six) Branch hours as needed for Pain (scale 4-6) for up to 10 days. bromphenira 2021- No [id number] 10mL Take 10 mL Univers mine-pseudo 12-12 by mouth 4 i ty of ephedrine-D 00:00: 05:59 (four) [place] M (BROMFED 00 :00 times Medical DM) 2-30-10 daily as Bran ch mg/5 mL needed for syrup Congestion /Allergies for up to 10 days. ondansetron 2021- No [id number] 4mg Take 1 Univers (ZOFRAN) 4 12-12 tablet by ity of mg tablet 00:00: 05:59 mouth [place] 00 :00 every 8 Medical (eight) Branch hours as needed for Nausea and Vomiting (N/V) for up to 10 days. ciprofloxac 2021- No [id number] 4[drp] Place 4 Univers in-dexameth 12-12 [id number] Drops in it y of asone 00:00: 05:59 right ear [place] (CIPRODEX) 00 :00 2 (two) Medica l 0.3-0.1 % times Branch otic drops daily for 10 days. ibuprofen 2021- No [id number] 600mg Take 1 Univers 600 mg 12-12 [id number] tablet by ity of tablet 00:00: 05:59 mouth [place] 00 :00 every 6 Medical (six) Branch hours as needed for Pain (scale 4-6) for up to 10 days. bromphenira 2021- No [id number] 10mL Take 10 mL Univers mine-pseudo 12-12 by mouth 4 i ty of ephedrine-D 00:00: 05:59 (four) [place] M (BROMFED 00 :00 times Medical DM) 2-30-10 daily as Bran ch mg/5 mL needed for syrup Congestion /Allergies for up to 10 days. ondansetron 2021- No [id number] 4mg Take 1 Univers (ZOFRAN) 4 12-12 tablet by ity of mg tablet 00:00: 05:59 mouth [place] 00 :00 every 8 Medical (eight) Branch hours as needed for Nausea and Vomiting (N/V) for up to 10 days. ciprofloxac 2021- No [id number] 4[drp] Place 4 Univers in-dexameth 12-12 [id number] Drops in it y of asone 00:00: 05:59 right ear [place] (CIPRODEX) 00 :00 2 (two) Medica l 0.3-0.1 % times Branch otic drops daily for 10 days. ibuprofen 2021- No [id number] 600mg Take 1 Univers 600 mg 12-12 [id number] tablet by ity of tablet 00:00: 05:59 mouth [place] 00 :00 every 6 Medical (six) Branch hours as needed for Pain (scale 4-6) for up to 10 days. bromphenira 2021- No [id number] 10mL Take 10 mL Univers mine-pseudo 12-12 by mouth 4 i ty of ephedrine-D 00:00: 05:59 (four) [place] M (BROMFED 00 :00 times Medical DM) 2-30-10 daily as Bran ch mg/5 mL needed for syrup Congestion /Allergies for up to 10 days. ondansetron 2021- No [id number] 4mg Take 1 Univers (ZOFRAN) 4 12-12 tablet by ity of mg tablet 00:00: 05:59 mouth [place] 00 :00 every 8 Medical (eight) Branch hours as needed for Nausea and Vomiting (N/V) for up to 10 days. ciprofloxac 2021- No [id number] 4[drp] Place 4 Univers in-dexameth 12-12 [id number] Drops in it y of asone 00:00: 05:59 right ear [place] (CIPRODEX) 00 :00 2 (two) Medica l 0.3-0.1 % times Branch otic drops daily for 10 days. ibuprofen 2021- No [id number] 600mg Take 1 Univers 600 mg 12-12 [id number] tablet by ity of tablet 00:00: 05:59 mouth [place] 00 :00 every 6 Medical (six) Branch hours as needed for Pain (scale 4-6) for up to 10 days. sumatriptan 2020-10 Yes Take by Uni vers succinate 0-01 mouth. ity of (IMITREX 10:19: [place] ORAL) 04 Medical Branch sumatriptan 2020-10 Yes Take by Uni vers succinate 0-01 mouth. ity of (IMITREX 10:19: [place] ORAL) Medical Branch sumatriptan 2020-10 Yes Take by Uni vers succinate 0-01 mouth. ity of (IMITREX 10:19: [place] ORAL) Medical Branch sumatriptan 2020-10 Yes Take by Uni vers succinate 0-01 mouth. ity of (IMITREX 10:19: [place] ORAL) Medical Branch sumatriptan 2020-10 Yes Take by Uni vers succinate 0-01 mouth. ity of (IMITREX 10:19: [place] ORAL) Medical Branch cetirizine 2020-10 Yes [id number] 10mg Take 1 U nivers (ZYRTEC) 10 0-01 tablet by ity of mg tablet 00:00: mouth [place] 00 daily. Medical Branch azelastine 2020-10 Yes [id number] 1{spray Use 1 Univers 137 mcg 0-01 } [place] in ity of (0.1 %) 00:00: each [place] nasal spray 00 nostril 2 Med ical (two) Branch times daily. Use in each nostril as directed fluticasone 2020-10 Yes [id number] 1{spray Use 1 Univers propionate 0-01 } [place] in ity o f 50 00:00: each [place] mcg/actuati 00 nostril Medic al on nasal daily. Branch spray cetirizine 2020-10 Yes [id number] 10mg Take 1 U nivers (ZYRTEC) 10 0-01 tablet by ity of mg tablet 00:00: mouth [place] 00 daily. Medical Branch azelastine 2020-10 Yes [id number] 1{spray Use 1 Univers 137 mcg 0-01 } [place] in ity of (0.1 %) 00:00: each [place] nasal spray 00 nostril 2 Med ical (two) Branch times daily. Use in each nostril as directed fluticasone 2020-10 Yes [id number] 1{spray Use 1 Univers propionate 0-01 } [place] in ity o f 50 00:00: each [place] mcg/actuati 00 nostril Medic al on nasal daily. Branch spray cetirizine 2020-10 Yes [id number] 10mg Take 1 U nivers (ZYRTEC) 10 0-01 tablet by ity of mg tablet 00:00: mouth [place] 00 daily. Medical Branch azelastine 2020-10 Yes [id number] 1{spray Use 1 Univers 137 mcg 0-01 } [place] in ity of (0.1 %) 00:00: each [place] nasal spray 00 nostril 2 Med ical (two) Branch times daily. Use in each nostril as directed fluticasone 2020-10 Yes [id number] 1{spray Use 1 Univers propionate 0-01 } [place] in ity o f 50 00:00: each [place] mcg/actuati 00 nostril Medic al on nasal daily. Branch spray cetirizine 2020-10 Yes [id number] 10mg Take 1 U nivers (ZYRTEC) 10 0-01 tablet by ity of mg tablet 00:00: mouth [place] 00 daily. Medical Branch azelastine 2020-10 Yes [id number] 1{spray Use 1 Univers 137 mcg 0-01 } [place] in ity of (0.1 %) 00:00: each [place] nasal spray 00 nostril 2 Med ical (two) Branch times daily. Use in each nostril as directed fluticasone 2020-10 Yes [id number] 1{spray Use 1 Univers propionate 0-01 } [place] in ity o f 50 00:00: each [place] mcg/actuati 00 nostril Medic al on nasal daily. Branch spray cetirizine 2020-10 Yes [id number] 10mg Take 1 U nivers (ZYRTEC) 10 0-01 tablet by ity of mg tablet 00:00: mouth [place] 00 daily. Medical Branch azelastine 2020-10 Yes [id number] 1{spray Use 1 Univers 137 mcg 0-01 } [place] in ity of (0.1 %) 00:00: each [place] nasal spray 00 nostril 2 Med ical (two) Branch times daily. Use in each nostril as directed fluticasone 2020-10 Yes [id number] 1{spray Use 1 Univers propionate 0-01 } [place] in ity o f 50 00:00: each [place] mcg/actuati 00 nostril Medic al on nasal daily. Branch spray bromphenira 2020-10- No [id number] 5mL Take 5 mL Univers mine-pseudo 0-01 02-14 by mouth 4 i ty of ephedrine-D 00:00: 00:00 (four) [place] as M (BROMFED 00 :00 times Medical DM) 2-30-10 daily as Bran ch mg/5 mL needed for syrup Congestion /Allergies . ibuprofen 2020-0 2022- No [id number] 600mg Take 1 Univers 600 mg 9- 02-14 tablet by ity of tablet 00:00: 00:00 mouth [place] 00 :00 every 6 Medical (six) Branch hours as needed for Pain (scale 4-6). benzonatate 2020-0 Yes [id number] 100mg Take 1 Univers 100 mg 9-10 capsule by ity of capsule 00:00: mouth 3 00 (three) Medical times Branch daily as needed for Cough. benzonatate 2020-0 Yes [id number] 100mg Take 1 Univers 100 mg 9-10 capsule by ity of capsule 00:00: mouth 3 00 (three) Medical times Branch daily as needed for Cough. benzonatate 2020-0 Yes [id number] 100mg Take 1 Univers 100 mg 9-10 capsule by ity of capsule 00:00: mouth 3 00 (three) Medical times Branch daily as needed for Cough. benzonatate 2020-0 Yes [id number] 100mg Take 1 Univers 100 mg 9-10 capsule by ity of capsule 00:00: mouth 3 00 (three) Medical times Branch daily as needed for Cough. benzonatate 2020-0 Yes [id number] 100mg Take 1 Univers 100 mg 9-10 capsule by ity of capsule 00:00: mouth 3 00 (three) Medical times Branch daily as needed for Cough. medroxyPROG 2020-0 Yes [id number] Take one Univers ESTERone 4-03 by mouth ity of (PROVERA) 00:00: days one [place] 10 mg 00 through 10 Medical tablet of each Branch month beginning 02/27/20. medroxyPROG 2020-0 Yes [id number] Take one Univers ESTERone 4-03 by mouth ity of (PROVERA) 00:00: days one [place] 10 mg 00 through 10 Medical tablet of each Branch month beginning 02/27/20. medroxyPROG 2020-0 Yes [id number] Take one Univers ESTERone 4-03 by mouth ity of (PROVERA) 00:00: days one [place] 10 mg 00 through 10 Medical tablet of each Branch month beginning 02/27/20. medroxyPROG 2020-0 Yes [id number] Take one Univers ESTERone 4-03 by mouth ity of (PROVERA) 00:00: days one [place] 10 mg 00 through 10 Medical tablet of each Branch month beginning 02/27/20. medroxyPROG 2020-0 Yes [id number] Take one Univers ESTERone 4-03 by mouth ity of (PROVERA) 00:00: days one [place] 10 mg 00 through 10 Medical tablet of each Branch month beginning 02/27/20. amitriptyli 2020-0 Yes [id number] 25mg Take 1 Univers ne 25 mg 3-26 tablet by ity of tablet 00:00: mouth at [place] [address] bedtime. Medical Branch metoprolol 2020-0 Yes [id number] 50mg Take 1 Univers tartrate 50 3-26 tablet by ity of mg tablet 00:00: mouth 2 [place] (two) Medical times Branch daily. amitriptyli 2020-0 Yes [id number] 25mg Take 1 Univers ne 25 mg 3-26 tablet by ity of tablet 00:00: mouth at [place] [address] bedtime. Medical Branch metoprolol 2020-0 Yes [id number] 50mg Take 1 Univers tartrate 50 3-26 tablet by ity of mg tablet 00:00: mouth 2 [place] (two) Medical times Branch daily. amitriptyli 2020-0 Yes [id number] 25mg Take 1 Univers ne 25 mg 3-26 tablet by ity of tablet 00:00: mouth at [place] [address] bedtime. Medical Branch metoprolol 2020-0 Yes [id number] 50mg Take 1 Univers tartrate 50 3-26 tablet by ity of mg tablet 00:00: mouth 2 [place] (two) Medical times Branch daily. amitriptyli 2020-0 Yes [id number] 25mg Take 1 Univers ne 25 mg 3-26 tablet by ity of tablet 00:00: mouth at [place] [address] bedtime. Medical Branch metoprolol 2020-0 Yes [id number] 50mg Take 1 Univers tartrate 50 3-26 tablet by ity of mg tablet 00:00: mouth 2 [place] (two) Medical times Branch daily. amitriptyli 2020-0 Yes [id number] 25mg Take 1 Univers ne 25 mg 3-26 tablet by ity of tablet 00:00: mouth at [place] [address] bedtime. Medical Branch metoprolol 2020-0 Yes [id number] 50mg Take 1 Univers tartrate 50 3-26 tablet by ity of mg tablet 00:00: mouth 2 [place] 00 (two) Medical times Branch daily. budesonide- 2020-0 Yes [id number] 2{puff} Inhale 2 Univers formoteroL 2-14 Puffs 2 ity of 160-4.5 00:00: (two) [place] mcg/actuati 00 times Medical on inhaler daily. Branch indomethaci 2020-0 Yes [id number] 50mg Take 1 Univers n 50 mg 2-14 capsule by ity of capsule 00:00: mouth 3 [place] 00 (three) Medical times Branch daily with meals. albuterol 2020-0 Yes [id number] 2{puff} Inhale 2 Univers 90 2-14 Puffs ity of mcg/actuati 00:00: every 6 [place] as on inhaler 00 (six) Medical hours as Branch needed for Wheezing or Shortness of Breath. levETIRAcet 2020-0 Yes [id number] 500mg Take 1 Univers am (KEPPRA) 2-14 tablet by ity of 500 mg 00:00: mouth 2 [place] tablet 00 (two) Medical times Branch daily. budesonide- 2020-0 Yes [id number] 2{puff} Inhale 2 Univers formoteroL 2-14 Puffs 2 ity of 160-4.5 00:00: (two) [place] mcg/actuati 00 times Medical on inhaler daily. Branch indomethaci 2020-0 Yes [id number] 50mg Take 1 Univers n 50 mg 2-14 capsule by ity of capsule 00:00: mouth 3 00 (three) Medical times Branch daily with meals. albuterol 2020-0 Yes [id number] 2{puff} Inhale 2 Univers 90 2-14 Puffs ity of mcg/actuati 00:00: every 6 [place] as on inhaler 00 (six) Medical hours as Branch needed for Wheezing or Shortness of Breath. levETIRAcet 2020-0 Yes [id number] 500mg Take 1 Univers am (KEPPRA) 2-14 tablet by ity of 500 mg 00:00: mouth 2 [place] tablet 00 (two) Medical times Branch daily. budesonide- 2020-0 Yes [id number] 2{puff} Inhale 2 Univers formoteroL 2-14 Puffs 2 ity of 160-4.5 00:00: (two) [place] mcg/actuati 00 times Medical on inhaler daily. Branch indomethaci 2020-0 Yes [id number] 50mg Take 1 Univers n 50 mg 2-14 capsule by ity of capsule 00:00: mouth 3 [place] 00 (three) Medical times Branch daily with meals. albuterol 2020-0 Yes [id number] 2{puff} Inhale 2 Univers 90 2-14 Puffs ity of mcg/actuati 00:00: every 6 [place] as on inhaler 00 (six) Medical hours as Branch needed for Wheezing or Shortness of Breath. levETIRAcet 2020-0 Yes [id number] 500mg Take 1 Univers am (KEPPRA) 2-14 tablet by ity of 500 mg 00:00: mouth 2 [place] tablet 00 (two) Medical times Branch daily. budesonide- 2020-0 Yes [id number] 2{puff} Inhale 2 Univers formoteroL 2-14 Puffs 2 ity of 160-4.5 00:00: (two) [place] mcg/actuati 00 times Medical on inhaler daily. Branch indomethaci 2020-0 Yes [id number] 50mg Take 1 Univers n 50 mg 2-14 capsule by ity of capsule 00:00: mouth 3 [place] 00 (three) Medical times Branch daily with meals. albuterol 2020-0 Yes [id number] 2{puff} Inhale 2 Univers 90 2-14 Puffs ity of mcg/actuati 00:00: every 6 [place] as on inhaler 00 (six) Medical hours as Branch needed for Wheezing or Shortness of Breath. levETIRAcet 2020-0 Yes [id number] 500mg Take 1 Univers am (KEPPRA) 2-14 tablet by ity of 500 mg 00:00: mouth 2 [place] tablet 00 (two) Medical times Branch daily. budesonide- 2020-0 Yes [id number] 2{puff} Inhale 2 Univers formoteroL 2-14 Puffs 2 ity of 160-4.5 00:00: (two) [place] mcg/actuati 00 times Medical on inhaler daily. Branch indomethaci 2020-0 Yes [id number] 50mg Take 1 Univers n 50 mg 2-14 capsule by ity of capsule 00:00: mouth 3 [place] 00 (three) Medical times Branch daily with meals. albuterol 2020-0 Yes [id number] 2{puff} Inhale 2 Univers 90 2-14 Puffs ity of mcg/actuati 00:00: every 6 [place] as on inhaler 00 (six) Medical hours as Branch needed for Wheezing or Shortness of Breath. levETIRAcet 2020-0 Yes [id number] 500mg Take 1 Univers am (KEPPRA) 2-14 tablet by ity of 500 mg 00:00: mouth 2 [place] tablet 00 (two) Medical times Branch daily. topiramate 2019-0 Yes Univers 25 mg 1-28 ity of tablet 00:00: [address] Branch topiramate 2020-0 Yes Univers 25 mg 1-28 ity of tablet 00:00: [address] topiramate 2020-0 Yes Univers 25 mg 1-28 ity of tablet 00:00: [address] topiramate 2020-0 Yes Univers 25 mg 1-28 ity of tablet 00:00: [address] topiramate 2020-0 Yes Univers 25 mg 1-28 ity of tablet 00:00: [address] Branch carBAMazepi 2019-0 Yes Univer s ne 200 mg 1-20 ity of tablet 00:00: [address] carBAMazepi 2020-0 Yes Univer s ne 200 mg 1-20 ity of tablet 00:00: [address] carBAMazepi 2020-0 Yes Univer s ne 200 mg 1-20 ity of tablet 00:00: [address] carBAMazepi 2020-0 Yes Univer s ne 200 mg 1-20 ity of tablet 00:00: [address] carBAMazepi 2020-0 Yes Univer s ne 200 mg 1-20 ity of tablet 00:00: [address] [place] No [place] [...] Immunizations Ordered Filled Immunization Date Status Comments [facility] e Immunization Name Name SARS-COV-2 COVID-19 2021-10-12 Completed Unive rsity of MODERNA VACCINE 00:00:00 [facility] SARS-COV-2 COVID-19 2021-10-12 Completed Unive rsity of MODERNA VACCINE 00:00:00 [facility] SARS-COV-2 COVID-19 2021-10-12 Completed Unive rsity of MODERNA VACCINE 00:00:00 [facility] SARS-COV-2 COVID-19 2021-10-12 Completed Unive rsity of MODERNA VACCINE 00:00:00 [facility] SARS-COV-2 COVID-19 2021-10-12 Completed Unive rsity of MODERNA VACCINE 00:00:00 [facility] SARS-COV-2 COVID-19 2021-09-14 Completed Unive rsity of MODERNA VACCINE 00:00:00 [facility] SARS-COV-2 COVID-19 2021-09-14 Completed Unive rsity of MODERNA VACCINE 00:00:00 [facility] SARS-COV-2 COVID-19 2021-09-14 Completed Unive rsity of MODERNA VACCINE 00:00:00 [facility] SARS-COV-2 COVID-19 2021-09-14 Completed Unive rsity of MODERNA VACCINE 00:00:00 [facility] SARS-COV-2 COVID-19 2021-09-14 Completed Unive rsity of MODERNA VACCINE 00:00:00 [facility] Influenza Virus 2018-12-16 Completed Universit y of Vaccine Quad IM 3+ 00:00:00 [facility] Influenza Virus 2018-12-16 Completed Universit y of Vaccine Quad IM 3+ 00:00:00 [facility] Influenza Virus 2018-12-16 Completed Universit y of Vaccine Quad IM 3+ 00:00:00 [facility] Influenza Virus 2018-12-16 Completed Universit y of Vaccine Quad IM 3+ 00:00:00 [facility] Influenza Virus 2018-12-16 Completed Universit y of Vaccine Quad IM 3+ 00:00:00 [facility] Vital Signs Vital Name Observation Time Observation Value Comments Source HEIGHT 2021-12-17 23:33:00 162.6 cm WEIGHT 2021-12-17 21:14:00 104.781 kg HEIGHT 2021-12-17 23:33:00 162.6 cm WEIGHT 2021-12-17 21:14:00 104.781 kg HEIGHT 2021-12-17 23:33:00 162.6 cm WEIGHT 2021-12-17 21:14:00 104.781 kg Systolic blood 2021-12-12 22:09:00 119 mm[Hg] Univer sity of pressure [facility] Diastolic blood 2021-12-12 22:09:00 76 mm[Hg] Unive rsity of RUST Heart rate 2021-12-12 22:09:00 106 /min [facility] Body temperature 2021-12-12 22:09:00 36.83 Sury [facility] height 2021-12-12 22:09:00 162.6 cm [facility] Body weight 2021-12-12 22:09:00 105.96 kg [facility] BMI 2021-12-12 22:09:00 40.10 kg/m2 [facility] Oxygen saturation in 2021-12-12 22:09:00 98 /min [facility] blood by [facility] Pulse oximetry Branch BP Diastolic 2020-04-13 00:00:00 83 mm[Hg] [facility] Height 2020-04-13 00:00:00 64 [in_i] [facility] BMI (Body Mass 2020-04-13 00:00:00 36.5 kg/m2 [facility] Group BP Systolic 2020-04-13 00:00:00 118 mm[Hg] [facility] Body Weight 2020-04-13 00:00:00 212.8 [lb_av] [facility] Systolic blood 2021-12-18 12:35:00 120 mm[Hg] [facility] Diastolic blood 2021-12-18 12:35:00 90 mm[Hg] [facility] Heart rate 2021-12-18 12:35:00 79 /min [facility] Body temperature 2021-12-18 12:35:00 36.56 Sury [facility] Respiratory rate 2021-12-18 12:35:00 18 /min [facility] Oxygen saturation in 2021-12-18 12:35:00 96 /min [facility] Arterial blood by Medical Ce nter Pulse oximetry Body height 2021-12-17 23:33:00 162.6 cm [facility] Body weight 2021-12-17 21:14:00 104.781 kg [facility] BMI 2021-12-17 21:14:00 39.65 kg/m2 [facility] Procedures Procedure Date / Time Performed Performing Clinician Sour e URINALYSIS W/ REFLEX 2021-12-18 10:11:00 Marylu Tiwari I [facility] URINE CULTURE [facility] BLOOD CULTURE 2021-12-18 03:39:00 Chad Dickey [facility] BASIC METABOLIC PANEL 2021-12-18 03:39:00 [facility] CBC W/PLT COUNT & AUTO 2021-12-18 03:39:00 [facility] DIFFERENTIAL [facility] CBC W/PLT COUNT & AUTO 2021-12-18 03:39:00 [facility] DIFFERENTIAL [facility] BLOOD CULTURE 2021-12-17 23:54:00 [facility] EKG-SCANNED 2021-12-17 00:00:00 Provider, Default [facility] es Scanning [facility] Plan of Care Planned Activity Planned Date Details Comments Source Future Scheduled 2022-06-[address] [facility] Test 00:00:00 (#1) [code = [facility] INFLUENZA VACCINE (#1)] Future Scheduled 2022-03-12 COVID-19 VACCINE ([address] [facility] Test 00:00:00 - Booster for [facility] Moderna series) [code = COVID-19 VACCINE (3 - Booster for Moderna series)] Future Scheduled 2021-10-[address] [facility] Test 00:00:00 (12+) [code = Medical Center DEPRESSION SCREENING (12+)] Diagnostic Test 2020-04-13 CBC w/ auto diff [facility] Pending 00:00:00 [code = CBC w/ auto Group diff] Diagnostic Test 2020-04-13 CMP, serum or plasma [facility] Pending 00:00:00 [code = CMP, serum Group or plasma] Diagnostic Test 2020-04-13 lipid panel, serum [facility] Pending 00:00:00 [code = lipid panel, Group serum] Diagnostic Test 2020-04-13 HBsAg (hepatitis B [facility] Pending 00:00:00 surface Ag), serum Group [code = HBsAg (hepatitis B surface Ag), serum] Diagnostic Test 2020-04-13 HIV (1+2) Ab screen, [facility] Pending 00:00:00 serum [code = HIV Group (1+2) Ab screen, serum] Diagnostic Test 2020-04-13 RPR (rapid plasma [facility] Pending 00:00:00 reagin), serum [code Group = RPR (rapid plasma reagin), serum] Diagnostic Test 2020-04-13 TSH + free T4, serum [facility] Pending 00:00:00 [code = TSH + free Group T4, serum] Diagnostic Test 2020-04-13 pap, LB + HPV [code [facility] Pending 00:00:00 = pap, LB + HPV] Group Diagnostic Test 2020-04-13 CT + NG + TV, DNA, [facility] Pending 00:00:00 urine/swab [code = Group CT + NG + TV, DNA, urine/swab] Future Scheduled [address] [facility] Test 00:00:00 malignant neoplasm Medical C enter of cervix (procedure) [code = 908167328] Future Scheduled [address] [facility] Test 00:00:00 (procedure) [code = [facility] [id number]] Future Scheduled 2009 DTAP/TDAP/TD [facility] Test 00:00[facility]00 VACCINES (1 - Tdap) Medical Center [code = DTAP/TDAP/TD VACCINES (1 - Tdap)] Future Scheduled [address] [facility] Test 00:00:00 SCREENING [code = Medical Ce nter HEPATITIS C SCREENING] Future Scheduled [address] [facility] Test 00:00:00 [facility] Cent[facility] r Screening (12+) [code = Tobacco Cessation Counseling and Screening (12+)] Encounters Start End Encounter Admission Attending Care Care Encounter Source Date/Time Date/Time Type Type Clinicians Facility Department ID 2021-08-30 Emergency [facility] [id number] Univers 00:49:50 [facility] 2022 2022 Outpatient DICLEMENTE_ MEHOP MEHOP 918 [place] 00:00:00 00:00:00 NENITA 07Uche deshpande [facility] Outre h Program 2021-12-22 2021-12-22 Outpatient Wendy [facility] [id number] Univers 08:30:00 08:30:00 [facility] 2021-12-22 2021-12-22 Outpatient Wendy [facility] [id number] Univers 08:30:00 08:30:00 [facility] 2021-12-21 2021-12-21 Outpatient Wendy [facility] [id number] Univers 15:00:00 15:00:00 [facility] 2021-12-17 2021-12-18 Inpatient AGUSTIN MEJIA Neu[facility] [id number] SLE 21:02:00 15:18:00 MARYLU 2021-12-17 2021-12-[address] [facility] [id number] 21:02:00 15:18:00 Encounter Edgardo Jacobs [facility] 2021-12-18 2021-12-18 Travel [facility] [id number] [facility] 00:[facility] 00:00[facility]00 [facility] 2021-12-14 2021-12-14 Telephone Amanda [facility] [id number] Univers 00:00:00 00:00:00 [facility] [id number] it y of [place] 4.2.7.2.686 Elan as BARRON?BLEA [phone] Mo zuleima [address] OFFICE [facility] 2021-12-13 2021-12-13 Telephone [facility] [id number] Univers 00:00:00 00:00:00 Nila HEALTH [id number] it y of [place] [id number] Elan as BARRON?BLEA [phone] Mo zuleima [address] OFFICE [facility] 2021-12-13 2021-12-13 Telephone [facility] [id number] Univers 00:00:00 00:00:00 Nila HEALTH [id number] it y of [place] [id number] Elan as BARRON?BLEA [phone] [facility] Sciences[facility]ias [address] OFFICE [facility] 2021-12-13 2021-12-13 Telephone [facility] [id number] Univers 00:00:00 00:00:00 Nila HEALTH [id number] it y of [place] [id number] Elan as BARRON?BLEA [phone] [facility] [address] OFFICE [facility] 2021-12-12 2021-12-12 [facility] [id number] Univers 16:00:00 16:51:41 NILA yousufrigo [facility] 2021-12-12 2021-12-12 [facility] 1.2.840.114 [id number] Univers 16:00:00 16:51:41 Visit Nila HEALTH [id number] it y of [place] [id number] Elan as BARRON?BLEA [phone] [facility] [address] OFFICE [facility] 2021-12-12 2021-12-12 Outpatient [facility] [id number] Univers 16:00:00 16:51:41 NILA yousufrigo [facility] 2021-12-12 2021-12-12 Letter [facility] [id number] Univers 00:00:00 00:00:00 (Out) Nila HEALTH [id number] it y of [place] [id number] Elan as BARRON?BLEA [phone] Mo dicmatthias [address] 2021-10-12 2021-10-12 Outpatient R LYDIA [facility] [id number] Univers 09:10:00 09:10:00 ZELDA ity [facility] 2021-10-12 2021-10-12 [facility] [id number] Univers 09:00:00 09:00:00 AIDAN [facility] 2021-10-12 2021-10-12 Imm/Inj Nurse, Adc Pob Immunization [facility] 1.2.840.114 [id number] Univers 09:00:00 09:00:00 Visit Aidan Reynoso 350.1.13 .10 ity of [place] [phone] Mo dic[address] 2021-10-12 2021-10-12 [facility] [id number] Univers 08:00:00 08:00:00 [facility] 2021-09-14 2021-09-14 Outpatient [facility] [id number] Univers 09:30:00 09:30:00 [facility] 2021-09-14 2021-09-14 Imm/Inj Nurse, Adc Pob Immunization [facility] 1.2.840.114 [id number] Univers 09:01:10 09:01:24 Visit Aidan Reynoso 350.1.13 .10 ity of [place] [phone] Mo dic[address] 2021-08-20 2021-08-20 Kamilah Villegas [facility] 1.2.840.114 [id number] Univers 00:00:00 00:00:00 Gisell HEALTH [id number] it y of [place] [id number] Elan as BARRON?BLEA [phone] [facility] [address] MEDICAL OFFICE BUILDING 2021-07-29 2021-07-29 Urgent Gisell Villegas [facility] 1.2.840.114 [id number] Univers 10:14:01 10:34:01 Care Unknown, [facility] 350.1.13.10 ity of [place] 4.2.7.2.686 Elan as Barron?Blea [phone] [facility] 370 [facility] Office [facility] 2021-07-29 2021-07-29 Outpatient R UNKNOWN, [facility] [id number] Univers 10:20:00 10:20:00 ATTENDING ity of [facility] 2021-07-21 2021-07-21 Emergency Vanessa Eduardo [facility] 1.2.840.114 [id number] Univers 10:06:00 11:06:00 Josefina Mariscal 350.1.13.10 i ty of [place].2.7.2.[place] [phone] [facility] [address] [place] 2021-07-19 2021-07-19 Orders Doctor AMBREEN 1.2.840.114 [id number] Univers 00:00:00 00:00:00 Only Unassigned, DONY 350.1.13.10 ity of [place] [facility] [id number] Elan as [phone] [facility] [address] [place] 2021-07-05 2021-07-05 Telephone [facility] 1.2.840.114 [id number] Univers 00:00:00 00:00:00 Zelda Mariscal 350.1.13.10 ity of [place] [phone] Mo dical nal [address] Building 2021-06-02 2021-06-02 Laboratory Lab, Adc Fam Pob I [facility] 1.2. [id number] [id number] Univers 20:27:39 20:47:39 Only Cedric Hurst [facility] 350.1.13.10 ity of [place] 4.2.7.2.686 Elan as Professio [phone] Mo dicnm nal [address] [place] Office [address] One 2021-06-02 2021-06-02 Laboratory Lab, [facility] 1.2.840.114 [id number] 20:27:39 20:47:39 Only Fam Pob I Health 350.1.13.10 [place] 4.2.7.2.686 Professio [phone] nal [address] One 2021-06-02 2021-06-02 Outpatient R RODOMOISE [facility] [id number] Univers 20:20:00 20:20:00 RANIA ity of [facility] 2021-06-02 2021-06-02 Outpatient DICLEMENTE_ MEHOP MEHOP 918 [place] 11:05:00 11:05:00 NENITA Zaidi da [facility] 2021-06-02 2021-06-02 Orders Doctor AMBREEN 1.2.840.114 [id number] Univers 00:00:00 00:00:00 Only Unassigned, DONY 350.1.13.10 ity of [place] [facility] 4.2.7.2.686 Elan as [phone] [address] 2021-06-02 2021-06-02 Telephone [facility] 1.2.840.114 [id number] Univers 00:00:00 00:00:00 Zelda Mariscal 350.1.13.10 ity of [place].2.[place] [phone] Mo dical [address] 2021-06-02 2021-06-02 Orders Doctor AMBREEN 1.2.840.114 [id number] 00:00:00 00:00:00 Only Unassigned, DONY 350.1.13.10 [place] [facility] 4.2.7.2.686 [phone] [facility] 2021-06-02 2021-06-02 Telephone Lydia [facility] 1.2.840.114 [id number] 00:00:00 00:00:00 Zelda Mariscal 350.1.13.10 [place] 4.2.7.2.686 Professio [phone] [address] 2021-01-18 2021-01-18 Patient John [facility] 1.2.840.114 [id number] Univers 00:00:00 00:00:00 Outreach Aidan PRIMARY 350.1.13.10 i ty of [facility] 4.2.7.2.686 [place] [phone] Mo dical [address] 2021-01-18 2021-01-18 Patient John [facility] 1.2.840.114 [id number] 00:00:00 00:00:00 Outreach Aidan PRIMARY 350.1.13.10 [facility] 4.2.7.2.686 PAVILLION [phone] [facility] 2020-09-15 2020-09-15 Outpatient cMcDonald [facility] [id number] [place] 02:40:00 02:40:00 1118 [facility] 2020-05-24 2020-05-24 Outpatient Wendy [facility] [id number] [facility] 08:40:00 08:40:00 ZELDA angulo [facility] 2020-04-14 2020-04-14 Outpatient cMcDonald [facility] [id number] [place] 05:40:00 05:40:00 0619 [facility] 2020-04-13 2020-04-13 Outpatient cMcDonald [facility] [id number] [place] 07:38:00 07:38:00 0616 [facility] 2020-04-13 2020-04-13 Maia [facility] [place] - [id number] M atagor 00:00:00 00:00:00 Alex [facility] STEINER: [address] [place] [address] [address], [place] [address] , Ph. [phone] 2020-01-23 2020-03-12 [facility] 1.2.840.114 [id number] Univers 11:11:01 16:10:25 ne Visit Matt Mariscal 350.1.13.10 ity [place] 4[place]2.7.2.[place] [phone] [place] dical [place] [address] [address] [facility] 2020-01-23 2020-03-12 Telemedici [facility] 1.2.840.114 [id number] 11:11:01 16:10:25 ne Visit Matt Mariscal 350.1.13.10 [place] 4.2.7.2.686 Professio [phone] [address] 2020-02-23 2020-02-26 Outpatient BRIAN, SW MED [id number] SW 14:38:00 13:00:00 JOANNE 2020-02-22 2020-02-23 Inpatient U APOLINAR, [facility] MED [id number] FB 19:57:00 13:45:00 CAM 2020-01-30 2020-01-30 Telemedici [facility] 1.2.840.114 [id number] Univers 08:10:50 15:55:51 ne Visit Matt Mariscal 350.1.13.10 ity of [place] 4[place]2.7.2.[place] [phone] [address] 2020-01-30 2020-01-30 Outpatient R [facility] [id number] Univers 10:45:00 10:45:00 [facility] 2020-01-27 2020-01-27 Telephone [facility] 1.2.840.114 [id number] Univers 00:00:00 00:00:00 Matt Mariscal 350.1.13.10 i ty of [place] 4[place]2.[place].2.[place] [phone] [address] 2020-01-27 2020-01-27 Telephone [facility] 1.2.840.114 [id number] Univers 00:00:00 00:00:00 Matt Mariscal 350.1.13.10 i ty of [place] 4.2.7.2.[place] [phone] [address] 2020-01-23 2020-01-23 [id number] Univers 13:15:00 13:15:00 MATT [facility] 2020-01-23 2020-01-23 Telephone [facility] 1.2.840.114 [id number] Univers 00:00:00 00:00:00 Matt Loida 350.1.13.10 i ty of [place] 4.2.7.2.[place] [phone] [facility] 134 [facility] 2020-01-22 2020-01-22 [facility]medici [facility] 1.2.840.114 [id number] Univers 08:40:14 12:05:25 ne Visit Zelda Mariscal 350.1.13.10 ity of [place] 4.2.7.2.[place] [phone] [facility] 231 [facility] 2020-01-22 2020-01-22 [facility] [id number] Univers 10:40:00 10:40:00 ZELDA ity of [facility] 2019-12-12 2019-12-12 Telephone [facility] 1.2.840.114 [id number] Univers 00:00:00 00:00:00 Zelda Mariscal 350.1.13.10 ity of [place] 4[place]2.[place].2.[place] [phone] [address] 2019-12-06 2019-12-06 Refill Doctor [facility] 1.2.840.114 [id number] Univers 00:00:00 00:00:00 Unassigned, Loida 350.1.13.10 ity of [place] 4.2.7.2.[place] [phone] [facility] 044 [facility] 2019-12-06 2019-12-06 Refill [facility] 1.2.840.114 [id number] Univers 00:00:00 00:00:00 Zelda Mariscal 350.1.13.10 ity of [place] 4[place]2.7.2.[place] [phone] [address] 2019-10-14 2019-10-14 Outpatient Teresita PHILLIPS G [id number] 2020 [place] 12:28:00 12:28:00 0615 [facility] Results Test Description Test Time Test Comments Results Result Comments Source Blood Culture - Routine (Right Venipuncture) 2021-12-23 06:0 0:39 Test Item Value Reference Range Interpretation Comme nts Result (test code = 6463-4) No growth in 5 days [id number] 06:00:39 Test Item Value Reference Range Interpretation Comments CULTURE (BEAKER) (test No growth in 5 days code = 1095) BLOOD [id number] 03:00:36 Test Item Value Reference Range Interpretation Comments CULTURE (BEAKER) (test No growth in 5 days code = 1095) Urinalysis w/Microscopic + Reflex to [id number] 10:45:20 Test Item Value Reference Range Interpretation Comments Color, UA (test Light Yellow code = 5778-6) Clarity, UA (test Clear code = 5767-9) Specific [place], 1.014 1.001-1.035 UA (test code = 5811-5) pH, UA (test code 7.5 5.0-8.0 = 5803-2) Protein, UA (test Negative Negative code = 40188-0) Glucose, UA (test Negative Negative code = 365) Ketones, UA (test Negative Negative code = 2514-8) Bilirubin, UA Negative Negative (test code = 55615-6) Blood, UA (test Negative Negative code = 17245-0) Nitrite, UA (test Negative Negative code = 5802-4) Leukocytes, UA Negative Negative (test code = 5799-2) Urobilinogen, UA 0.2 mg/dL 0.2-1.0 (test code = 21546-0) RBC, UA (test 1 See_Comment [Automated me ssage] code = 12726-9) The system [facility] generated this result transmit aamir reference range : /HPF. The refer ence range was not u sed to interpret th is result as normal/abnormal . WBC, UA (test 1 See_Comment [Automated me ssage] code = 5821-4) The system [facility] generated this result transmit aamir reference range : /HPF. The refer ence range was not u sed to interpret th is result as normal/abnormal . Bacteria, UA Rare (test code = 08382-3) Mucus (test code Rare = 8247-9) Squam Epithel, UA 3 See_Comment [Automate d message] (test code = [place] [address]-6) generated this result transmit aamir reference range : /HPF. The refer ence range was not u sed to interpret th is result as normal/abnormal . Crystals, Urine None Seen (test code = 42479-3) Specimen Source (test code = 2795) SERGIO (test code = Medical Records Coder ID - SERGIO) [auto]Medical Records Coder ID - tech [facility] REFLEX URINE [id number] 10:45:20 Test Item Value Reference Range Interpretation [...] = 1521) SOURCE(BEAKER) (test code = 2795) Medical Records Coder ID - [auto]Medical Records Coder ID - techBasic metabolic [id number] 04:19:43 Test Item Value Reference Range Interpretation Comments Sodium (test code = 139 meq/L 327-601 2973-2) Potassium (test code = 3.6 meq/L 3.5-5.1 2823-3) Chloride (test code = 108 meq/L 98-107 H 2075-0) CO2 (test code = 25 meq/L 22-29 2028-9) BUN (test code = 13 mg/dL 7-21 3094-0) Creatinine (test code 0.84 mg/dL 0.57-1.25 = 2160-0) Glucose (test code = 112 mg/dL 70-105 H 2345-7) Calcium (test code = 9.0 mg/dL 8.4-10.2 64919-1) EGFR (test code = 79 mL/min/1.73 [place] [address]-8) NOT ACCURATE CREATININE CLEARANCE IN PREDICTING GLOMERULAR FILTRATION RATE . ESTIMATED GFR I S NOT APPLICABLE FOR DIALYSIS PATIENTS. SERGIO (test code = SERGIO) Medical Records Coder CHUCHO - SHELBY Mireles Lab Interpretation Abnormal (test code = 90706-3) [facility] METABOLIC [id number] 04:19:43 Test Item Value Reference Range Interpretation Comments SODIUM (BEAKER) 139 meq/L 136-145 (test code = 381) POTASSIUM (BEAKER) 3.6 meq/L 3.5-5.1 (test code = 379) CHLORIDE (BEAKER) 108 meq/L 98-107 H (test code = 382) CO2 (BEAKER) (test 25 meq/L - code = 355) BLOOD UREA NITROGEN 13 mg/dL 7-21 (BEAKER) (test code = 354) CREATININE (BEAKER) 0.84 mg/dL 0.57-1.25 (test code = 358) GLUCOSE RANDOM 112 mg/dL 70-105 H (BEAKER) (test code = 652) CALCIUM (BEAKER) 9.0 mg/dL 8.4-10.2 (test code = 697) EGFR (BEAKER) (test 79 mL/min/1.73 ESTIMA AAMIR GFR IS code = 1092) sq m NOT ACCURATE CREATININE CLEARANCE IN PREDICTING GLOMERULAR FILTRATION RATE . ESTIMATED GFR I S NOT APPLICABLE FOR DIALYSIS PATIEN TS. Medical Records Coder ID - SHELBY [facility] with platelet count + automated [id number] 04:14:48 Test Item Value Reference Range Interpretation Comments WBC (test code = 6690-2) 8.8 See_Comment [A utomated message] The system [employer] generated this result transmitted ref erence range: 3.5 - 10 .5 K/L. The refe rence range was not u sed to interpret this result as normal/abnor mal. RBC (test code = 789-8) 4.06 See_Comment [Au tomated message] The system [employer] generated this result transmitted ref erence range: 3.93 - 5 .22 M/L. The refe rence range was not u sed to interpret this result as normal/abnor mal. MCHC (test code = 786-4) 31.2 See_Comment L [A utomated message] The system [employer] generated this result transmitted ref erence range: 32.2 - 3 5.5 GM/DL. The refe rence range was not u sed to interpret this result as normal/abnor mal. Hematocrit (test code = 37.5 % 34.1-44.9 4544-3) MCV (test code = 787-2) 92.4 fL 79.4-94.8 MCH (test code = 785-6) 28.8 pg 25.6-32.2 RDW (test code = 788-0) 13.5 % 11.7-14.4 Platelets (test code = 298 See_Comment [Aut omated message] 777-3) The system [employer] generated this result transmitted ref erence range: 150 - 45 0 K/CU MM. The referen ce range was not u sed to interpret this result as normal/abnor mal. MPV (test code = 10.5 fL 9.4-12.3 17453-6) nRBC (test code = 413) 0 See_Comment [Aut omated message] The system [employer] generated this result transmitted ref erence range: 0 - 0 /1 00 WBC. The refere nce range was not u sed to interpret this result as normal/abnor mal. % Neutros (test code = 40 % 429) % Lymphs (test code = 47 % 430) % Monos (test code = 8 % 431) % Eos (test code = 432) 4 % % Baso (test code = 437) 1 % # Neutros (test code = 3.54 See_Comment [Aut omated message] 670) The system [employer] generated this result transmitted ref erence range: 1.56 - 6 .13 K/L. The refe rence range was not u sed to interpret this result as normal/abnor mal. # Lymphs (test code = 4.14 See_Comment H [Auto mated message] 414) The system [employer] generated this result transmitted ref erence range: 1.18 - 3 .74 K/L. The refe rence range was not u sed to interpret this result as normal/abnor mal. # Monos (test code = 0.74 See_Comment H [Autom ated message] 415) The system [employer] generated this result transmitted ref erence range: 0.24 - 0 .36 K/L. The refe rence range was not u sed to interpret this result as normal/abnor mal. # Eos (test code = 416) 0.33 See_Comment [Au tomated message] The system [employer] generated this result transmitted ref erence range: 0.04 - 0 .36 K/L. The refe rence range was not u sed to interpret this result as normal/abnor mal. # Baso (test code = 417) 0.04 See_Comment [A utomated message] The system [employer] generated this result transmitted ref erence range: 0.01 - 0 .08 K/L. The refe rence range was not u sed to interpret this result as normal/abnor mal. Immature 0 % 0-1 Granulocytes-Relative (test code = 2801) Lab Interpretation (test Abnormal code = 52155-0) [facility] W/PLT COUNT & AUTO [id number] 04:14:48 Test Item Value Reference Range Interpretation [...] % 0-1 PERCENT (BEAKER) (test code = 3538)
[2022-09-26 17:15] LABS: Absolute Lymphocytes (CBC) 3.8 K/uL (0.7-4.9); MCV 88.7 fL (80-100); MPV 9.3 fL (7.6-11.3); RBC Red Blood Cell Count 4.17 M/uL (3.86-4.86)
[2022-09-26 17:31] LABS: ALT/SGPT 27 U/L (12-78); AST/SGOT 15 U/L (15-37); Albumin 3.4 g/dL (3.4-5.0); Alkaline Phosphatase 77 U/L (45-117); BUN Blood Urea Nitrogen 15 mg/dL (7-18); Bicarbonate 26 mmol/L (21-32); Bilirubin Total 0.3 mg/dL (0.2-1.0); Glomerular Filtration Rate 89 ml/min (=/>90); Glucose Level 98 mg/dL (74-106); Magnesium 1.8 mg/dL (1.8-2.4); NT PRO-BNP 10 pg/mL (<125); Potassium 3.8 mmol/L (3.5-5.1); Sodium Level 138 mmol/L (136-145); Troponin High Sensitivity 5.2 pg/mL (<58.9)
--- NOTE | 2022-09-26 17:45 | RAD REPORT ---
EXAM DESCRIPTION: RAD - Chest Single View - 09/26/2022 5:35 pm CLINICAL HISTORY: CHEST PAIN Chest pain. COMPARISON: Chest Single View dated 01/25/2022; Chest Single View dated 06/29/2021; Chest Single View d ated 06/18/2021; Chest Single View dated 12/24/2018 FINDINGS: Portable technique limits examination quality. Mild bilateral pulmonary opacities may represent pulmonary edema or pneumonia. The heart is upper carbajal it of normal in size. No displaced fractures.
[2022-09-26 17:53] LABS: Protime INR 1.03
[2022-09-26] MEDS ORDERED: MORPHINE 2 MG/ML SYR ONE ×2 (18:00→19:26)
[2022-09-26 18:01] LABS: Bilirubin Direct < 0.1 mg/dL (0-0.2)
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
[2022-09-26 21:19] LABS: Urine Blood 2+ (Negative); Urine Glucose Negative (Negative); Urine Protein Negative (Negative)
[2022-09-26 21:44] VITALS: TEMP 98.3
[2022-09-26 22:03] VITALS: BP 125/93; O2SAT 98
--- NOTE | 2022-09-27 16:25 | EKG ---
Test Date: 2022-09-26 Test Time: 20:04:13 Doggy Daycare Activities Director: SOULEYMANE MEASUREMENT RESULTS: Intervals: Rate: 76 NH: 182 QRSD: 78 QT: 388 QTc: 436 [place]: P: 64 NH: 182 QRS: 83 T: 65 INTERPRETIVE STATEMENTS: Normal sinus rhythm Normal ECG Compared to ECG 09/26/2022 16:56:38 No significant changes Electronically Signed On 09-27-22 16:23:00 LABEL MAKER by Solo Marie
--- NOTE | 2022-09-27 16:26 | EKG ---
Test Date: 2022-09-26 Test Time: 16:56:38 Oil Field Equipment Mechanic Supervisor: MARLEY MEASUREMENT RESULTS: Intervals: Rate: 79 SD: 174 QRSD: 80 QT: 380 QTc: 435 [place]: P: 57 SD: 174 QRS: 88 T: 33 INTERPRETIVE STATEMENTS: Normal sinus rhythm Normal ECG Compared to ECG 08/08/2022 10:51:12 Right-axis deviation no longer present Electronically Signed On 09-27-22 16:23:04 STOCK RAISER by Solo Marie
== END 2022-09-26 21:20 | disposition home or self-care (01) ==
LOC: ER 16:39
DX: R07.9 Chest pain, unspecified (principal); R42 Dizziness and giddiness; Z88.5 Allergy status to narcotic agent; Z88.8 Allergy status to other drugs, medicaments and biological substances
CPT/HCPCS: 93005 ×2; 85025; 80048; 36415; 83735; 81025; 85610; 85379; 80076; 81003; 84484 ×2; 83880; 71045; 96374; 99284; J2270 ×2

== ENCOUNTER 2023-03-05 23:11 | Observation (INO) | payer OTHER ==
--- OUTSIDE RECORDS SUMMARY | 2023-03-05 23:20 | XMS REPORT | Continuity of Care Document ---
:1990 Author Organization [facility] t Address [address] [place] [address] Care Team Providers Name Role Phone DULCE WEEKS Primary Care Physician Unavailable JOSE ANGEL PERALTA Attending Clinician Unavailable JOSE ANGEL PERALTA Attending Clinician Unavailable Dulce Weeks MD Attending Clinician Eugene LLANOS, Zelda Hernandez Attending Clinician Unavailable DULCE WEEKS Attending Clinician Unavailable Doctor Unassigned, [place] Attending Clinician Unavailable Khloe Mayen MA Attending Clinician Unavailable Prisca Vilchis Attending Clinician Unavailable Cyrus Shultz MD Attending Clinician CYRUS SHULTZ Attending Clinician Unavailable Pob, Adc Lab Main Attending Clinician Unavailable JANIS Attending Clinician Unavailable ISHAN BENNETT Attending Clinician Unavailable MARYLU TIWARI Attending Clinician Unavailable Brett Hansen MD Attending Clinician Edgardo Jacobs MD Attending Clinician [phone] Marylu Tiwari MD Attending Clinician Nila Rhoades Attending Clinician NILA VILLAGRAN Attending Clinician Unavailable ZELDA FREEMAN Attending Clinician Unavailable AIDAN REYNOSO Attending Clinician Unavailable Nurse, Adc Pob Immunization Attending Clinician Unavailable Aidan Reynoso DO Attending Clinician Gisell Villegas MD Attending Clinician Unknown, Attending Attending Clinician Unavailable UNKNOWN, ATTENDING Attending Clinician Unavailable Alesha AIDEE, K Josefina Attending Clinician Zelda Freeman MD Attending Clinician [phone] Lab, Adc Fam Pob I Attending Clinician Unavailable Cedric Burgos Attending Clinician CEDRIC PORTILLO Attending Clinician Unavailable Teresita Attending Clinician Unavailable Matt Foster MD Attending Clinician CYRUS TORRES Attending Clinician Unavailable CAM JIANG Attending Clinician Unavailable MATT FOSTER Attending Clinician Unavailable JOSE ANGEL PERALTA Admitting Clinician Unavailable JANIS Admitting Clinician Unavailable EDGARDO JACOBS Admitting Clinician Unavailable Teresita Admitting Clinician Unavailable JAILENE TIJERINA Admitting Clinician Unavailable Payers Payer Name Policy Type Policy Number Effective Date Expiration Date Janes henriquez [facility] [id number] 2019 CHOICE MEDICAID 00:00:00 MEDICAID COMM [id number] 2021 HEALTH CHOICE 00:00:00 [facility] [id number] CHOICE (MEDICAID REPLACEMENT - HMO) Problems Condition Condition Condition Status Onset Resolution Last Treating Co mments Source Name Details Category Date Date Treatment Clinician Date Morbid Morbid Disease Active Univers obesity obesity 3-03 [place] index 00 [place] dical of of Branch 40.0-49.9 40.0-49.9 Screening Screening Disease Active Uni vers breast breast 1-22 ity of examinatio examinatio 00:[place] [facility] Lipid Lipid Disease Active Univers disorder disorder 1-21 ity of 00:00: [place] 00 Medical Branch Thickened Thickened Disease Active Uni vers endometriu endometriu 1-03 it y of m m 00:00: [place] [facility] Menorrhagi Menorrhagi Disease Active U nivers a with a with 1-03 [place] irregular irregular [place] cycle 00 [facility] Pain Pain Disease Active 2021-10 Univers pelvic pelvic 2-21 ity of 00:00: [place] [facility] Branch History of History of Disease Active 2021-10 U nivers ovarian ovarian 2-21 ity of cyst cyst 00:00: [place] [facility] Branch Patient Patient Disease Active 2021-10 Univers desires desires 2-21 [place] [facility] Vaping Vaping Disease Active 2021-10 Univers 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 [place] of dependence [place] , [place] Medical non-tobacc non-tobacc Br anch o product o product BMI BMI Disease Active 2021-10 Univers 40.0-44.9, 40.0-44.9, 2-21 it y of adult adult 00:00: [place] 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 external external Branch ear ear Status Status Disease Active [facility] epile[facility] epilepticu 2-20 [facility]anda kes s s 00:00: [place] [address] Center UTI due to UTI due to Disease Active [facility] trichomona trichomona 2-20 Maranda kes s s 00:00: Medical vaginalis vaginalis 00 Cent er Epilepsy Epilepsy Disease Recurre [facility] Status Status Disease Active Univers epilepticu epilepticu 2-19 it y of s s 00:00: [place] [facility] Branch Cough Cough Disease Active Univers 2-14 ity of 00:00: [place] [facility] Branch Congestion Congestion Disease Active U nivers of nasal of nasal 2-14 ity of sinus sinus 00:00: [place] [facility] Branch Nausea Nausea Disease Active Univers 2-14 ity of 00:00: [place] [facility] Branch Acute Acute Disease Active Univers otitis [...] menstrual 3-12 ity of cycle cycle 00:00: [place] [facility] Asthma, Asthma, Disease Active Univers [...] 6-24 it y of on on 00:00: [place] 00 Medical Branch Other Other Disease Active [...] upper 6-24 ity of abdomen abdomen 00:00: [place] 00 Medical Branch Allergies, Adverse Reactions, Alerts [...] Medical reaction Rash 00 Center s CARBAMAZ DRUG Active High ITCHING Univers EPINE INGREDI 2-19 ity of 00:00: [place] 00 Medical Branch FOSPHENY DRUG Active ITCHING Univers TOIN INGREDI 2-19 ity of 00:00: [place] 00 Medical Branch CARBAMAZ Allergy Active High Sob [facility] EPINE 2-19 [facility] 00:[facility]: Medical 00 Center FOSPHENY Allergy Active Itching [facility] TOIN -19 [facility] 00:00: Medical 00 Center [place] Drug Active Hives, Can take [facility] c Allergy Itching, 6- aspirin [facility] Rash, 00:00: and Medical Shortness Of 00 ibuprofen C enter Breath without problem. [place] DRUG Active High Hives Univers C INGREDI 6- ity of 00:00: [place] 00 Medical Branch [place] Propensi Active Shortness of Can shay e Univers c ty to Breath 6- aspirin ity of adverse 00:00: and [place] reaction 00 ibuprofen Medic al s without Branch problem. [place] Allergy Active High Hives [facility] -23 [facility] 00:00: Medical 00 Center Social History Social Habit Start Date Stop Date Quantity Comments Source History of 2012-04-20 Passive smoker University of tobacco use 00:00:00 [facility] History SDOH [facility] Alcohol Std Medical Cente r Drinks History SDOH [facility] Alcohol Binge Medical Jatin[address] ter History SDOH [facility] Alcohol Comment Medical C enter Exposure to 2022-12-22 2023-01-01 Not sure University of SARS-CoV-2 00:00:00 11:43:00 [facility] (event) [place] Tobacco use and 2022-10-18 2022-10-18 Smokeless tobacco Un iversity of exposure 00:00:00 00:00:00 non-user [facility] Tobacco Comment 2022-10-18 2022-10-18 3-4 ciggs a day Univ ersity of 00:00:00 00:00:00 [facility] Alcohol intake 2021-12-18 2021-12-[address] [facility] es 00:00:00 00:00:00 non-drinker Medical [place] (finding) History SDOH 2021-12-18 2021-12-18 [address] [facility] [address] [facility] Alcohol Frequency 00:00:00 00:00:00 [facility] Center Sex [birth year] At [birth year] ZINA Draper 00:00:00 00:00:00 [facility] Smoking Status Start Date Stop Date Source Ex-smoker 2022-10-18 00:00:00 2022-10-18 00:00:00 [facility] Never smoked tobacco [facility] Light tobacco smoker 2019-01-07 00:00:00 [facility] Ordered Filled Start Stop Current Ordering Indication Dosage Frequency Signature Comments Components Source Medication Medication Date Date Medication? Clinician (SIG) Name Name ibuprofen 2022- Yes [id number] 600mg U nivers (IBU) 3- 03-04 ity of tablet 600 16:15: 04:14 [place] mg 00 :00 Medical Branch Norethindro Yes [id number] 1{tbl} Take 1 Univers ne 1-18 tablet by ity of Acet-Ethiny 00:00: mouth [place] Est 00 the Medical (ESTRIN morning. Branch ,) 1.5-30 mg-mcg per tablet ibuprofen Yes [id number] 800mg Take 1 Univers 800 mg 1-18 tablet by ity of tablet 00:00: mouth [place] 00 every 6 Medical (six) Branch hours as needed for Pain (scale 4-6). Norethindro Yes [id number] 1{tbl} Take 1 Univers ne 1-18 tablet by ity of Acet-Ethiny 00:00: [place] 00 the Medical (LOESTRIN morning. Branch ,) 1.5-30 mg-mcg per tablet ibuprofen Yes [id number] 800mg Take 1 Univers 800 mg 1-18 tablet by ity of tablet 00:00: mouth [place] 00 every 6 Medical (six) Branch hours as needed for Pain (scale 4-6). Norethindro Yes [id number] 1{tbl} Take 1 Univers ne 1-18 tablet by ity of Acet-Ethiny 00:00: [place] 00 the Medical (LOESTRIN morning. Branch ,) 1.5-30 mg-mcg per tablet ibuprofen 2022-0 Yes [id number] 800mg Take 1 Univers 800 mg 1-18 tablet by ity of tablet 00:00: mouth [place] 00 every 6 Medical (six) Branch hours as needed for Pain (scale 4-6). Norethindro 2022-0 Yes [id number] 1{tbl} Take 1 Univers ne 1-18 tablet by ity of Acet-Ethiny 00:00: [place] 00 the Medical (LOESTRIN morning. Branch ,) 1.5-30 mg-mcg per tablet ibuprofen 2022-0 Yes [id number] 800mg Take 1 Univers 800 mg 1-18 tablet by ity of tablet 00:00: mouth [place] 00 every 6 Medical (six) Branch hours as needed for Pain (scale 4-6). Norethindro 2022-0 Yes [id number] 1{tbl} Take 1 Univers ne 1-18 tablet by ity of Acet-Ethiny 00:00: [place] 00 the Medical (ESTRIN morning. Branch ,) 1.5-30 mg-mcg per tablet ibuprofen 2022-0 Yes [id number] 800mg Take 1 Univers 800 mg 1-18 tablet by ity of tablet 00:00: mouth [place] 00 every 6 Medical (six) Branch hours as needed for Pain (scale 4-6). Norethindro 2022-0 Yes [id number] 1{tbl} Take 1 Univers ne 1-18 tablet by ity of Acet-Ethiny 00:00: [place] 00 the Medical (LOESTRIN morning. Branch ,) 1.5-30 mg-mcg per tablet ibuprofen 2022-0 Yes [id number] 800mg Take 1 Univers 800 mg 1-18 tablet by ity of tablet 00:00: mouth [place] 00 every 6 Medical (six) Branch hours as needed for Pain (scale 4-6). Norethindro 202-0 Yes [id number] 1{tbl} Take 1 Univers ne 1-18 tablet by ity of Acet-Ethiny 00:00: [place] 00 the Medical ( morning. Branch ,) 1.5-30 mg-mcg per tablet ibuprofen 2022-0 Yes [id number] 800mg Take 1 Univers 800 mg 1-18 tablet by ity of tablet 00:00: mouth [place] 00 every 6 Medical (six) Branch hours as needed for Pain (scale 4-6). Norethindro 2022-0 Yes [id number] 1{tbl} Take 1 Univers ne 1-18 tablet by ity of Acet-Ethiny 00:00: [place] 00 the Medical (. Branch ,) 1.5-30 mg-mcg per tablet ibuprofen 2022-0 Yes [id number] 800mg Take 1 Univers 800 mg 1-18 tablet by ity of tablet 00:00: mouth [place] 00 every 6 Medical (six) Branch hours as needed for Pain (scale 4-6). Norethindro 2022-0 Yes [id number] 1{tbl} Take 1 Univers ne 1-18 tablet by ity of Acet-Ethiny 00:00: [place] 00 the Medical ( morning. Branch ,) 1.5-30 mg-mcg per tablet ibuprofen 2022-0 Yes [id number] 800mg Take 1 Univers 800 mg 1-18 tablet by ity of tablet 00:00: mouth [place] 00 every 6 Medical (six) Branch hours as needed for Pain (scale 4-6). Norethindro 2022-0 Yes [id number] 1{tbl} Take 1 Univers ne 1-18 tablet by ity of Acet-Ethiny 00:00: [place] 00 the Medical ( morning. Branch ,) 1.5-30 mg-mcg per tablet ibuprofen 2022-0 Yes [id number] 800mg Take 1 Univers 800 mg 1-18 tablet by ity of tablet 00:00: mouth [place] 00 every 6 Medical (six) Branch hours as needed for Pain (scale 4-6). Norethindro 2023-0 Yes [id number] 1{tbl} Take 1 Univers ne 1-18 tablet by ity of Acet-Ethiny 00:00: [place] 00 the Medical (. Branch ,) 1.5-30 mg-mcg per tablet ibuprofen 2022-0 Yes [id number] 800mg Take 1 Univers 800 mg 1-18 tablet by ity of tablet 00:00: mouth [place] 00 every 6 Medical (six) Branch hours as needed for Pain (scale 4-6). Norethindro 2022-0 Yes [id number] 1{tbl} Take 1 Univers ne 1-18 tablet by ity of Acet-Ethiny 00:00: [place] 00 the Medical (. Branch ,) 1.5-30 mg-mcg per tablet ibuprofen 2022-0 Yes [id number] 800mg Take 1 Univers 800 mg 1-18 tablet by ity of tablet 00:00: mouth [place] 00 every 6 Medical (six) Branch hours as needed for Pain (scale 4-6). Norethindro 2022-0 Yes [id number] 1{tbl} Take 1 Univers ne 1-18 tablet by ity of Acet-Ethiny 00:00: [place] 00 the Medical (. Branch ,) 1.5-30 mg-mcg per tablet ibuprofen 2022-0 Yes [id number] 800mg Take 1 Univers 800 mg 1-18 tablet by ity of tablet 00:00: mouth [place] 00 every 6 Medical (six) Branch hours as needed for Pain (scale 4-6). Norethindro 3-0 Yes [id number] 1{tbl} Take 1 Univers ne 1-18 tablet by ity of Acet-Ethiny 00:00: [place] 00 the Medical (. Branch ,) 1.5-30 mg-mcg per tablet ibuprofen 2022-0 Yes [id number] 800mg Take 1 Univers 800 mg 1-18 tablet by ity of tablet 00:00: mouth [place] 00 every 6 Medical (six) Branch hours as needed for Pain (scale 4-6). norethindro 2023-0 Yes [id number] .35mg Take 1 Univers ne (ORTHO 1-03 tablet by ity o f MICRONOR) 00:00: [place] 0.35 mg 00 the Medical tablet morning. Jonnathan rileyndro Yes [id number] .35mg Take 1 Univers ne (ORTHO 1-03 tablet by [employer]reme Reality o f MICRONOR) 00:00: [place] 0.35 mg 00 the Medical tablet morning. Jonn[place] norethindro Yes [id number] .35mg Take 1 Univers ne (ORTHO 1-03 tablet by ity o f MICRONOR) 00:00: [place] 0.35 mg 00 the Medical tablet morning. Jonnathan norethindro 2022- No [id number] .35mg Take 1 Univers ne (ORTHO 1-03 -22 tablet by ity of X[employer]ore MobilityOR) 00:00: 00:00 mouth in [place] 0.35 mg 00 :00 the Medical tablet morning. Jonnathan rileyndro 2022- No [id number] .35mg Take 1 Univers ne (ORTHO 1-03 -22 tablet by ity of [employer] Mob[employer]) 00:00: 00:00 mouth [place] 0.35 mg 00 :00 the Medical tablet morning. Jonnathan rileyndro 2021-10 Yes [id number] .35mg Take 1 Univers ne (ORTHO 2-21 tablet by itExtreme Reality o f MICRONOR) 00:00: [place] 0.35 mg 00 the Medical tablet morning. Jonnathan ruizthindro 2021-10 Yes [id number] .35mg Take 1 Univers ne (ORTHO 2-21 tablet by ity o f MICRONOR) 00:00: [place] 0.35 mg 00 the Medical tablet morning. Branch norethindro 2021-10 Yes [id number] .35mg Take 1 Univers ne (ORTHO 2-21 tablet by ity o f MICRONOR) 00:00: [place] 0.35 mg 00 the Medical tablet morning. Branch josephthindro 2021-10 Yes [id number] .35mg Take 1 Univers ne (ORTHO 2-21 tablet by ity o f MICRONOR) 00:00: [place] 0.35 mg 00 the Medical tablet morning. Branch rosemaryndro 2021-10 Yes [id number] .35mg Take 1 Univers ne (ORTHO 2-21 tablet by ity o f MICRONOR) 00:00: [place] 0.35 mg 00 the Medical tablet morning. Jonnathan raines 2021-10 Yes [id number] .35mg Take 1 Univers ne (ORTHO 2-21 tablet by ity o f MICRONOR) 00:00: mouth [place] 0.35 mg 00 the Medical tablet morning. Jonnathan porterro 2021-10 Yes [id number] .35mg Take 1 Univers ne (ORTHO 2-21 tablet by ity o f MICRONOR) 00:00: [place] 0.35 mg 00 the Medical tablet morning. Jonnathan raines 2021-10 Yes [id number] .35mg Take 1 Univers ne (ORTHO 2-21 tablet by ity o f MICRONOR) 00:00: [place] 0.35 mg 00 the Medical tablet morning. Jonnathan raines 2021-10 Yes [id number] .35mg Take 1 Univers ne (ORTHO 2-21 tablet by ity o f MICRONOR) 00:00: [place] 0.35 mg 00 the Medical tablet morning. Jonnathan raines 2021-10 Yes [id number] .35mg Take 1 Univers ne (ORTHO 2-21 tablet by ity o f MICRONOR) 00:00: [place] 0.35 mg 00 the Medical tablet morning. Jonnathan raines 2021-10- No [id number] .35mg Take 1 Univers ne (ORTHO 2-21 -22 tablet by ity of [employer]) 00:00: 00:00 mouth in [place] 0.35 mg 00 :00 the Medical tablet morning. Jonnathan porterro 2021-10- No [id number] .35mg Take 1 Univers ne (ORTHO 2-21 01-22 tablet by ity of [employer] Mobility[employer]) 00:00: 00:00 mouth in [place] 0.35 mg 00 :00 the Medical tablet morning. Jonnathan levETIRAcet Yes 500mg Q.5D Take [address] [facility] (KEPPRA) 2-20 tablet [facility] 500 MG 00:00: (500 mg Medical tablet 00 total) by Center mouth 2 (two) times daily. traMADoL 2022-0 Yes 100mg Take [address] [facility] 100 mg Tab 2-20 mg by [facility] 00:00: mouth Medical 00 every 8 Center (eight) hours as needed. Max Daily Amount: 300 mg levETIRAcet 2022-0 Yes 500mg Q.5D Take [address] [facility] am (KEPPRA) 2-20 tablet [facility] 500 MG 00:00: (500 mg Medical tablet 00 total) by Center mouth 2 (two) times daily. traMADoL 2022-0 Yes 100mg Take [address] [facility] 100 mg Tab 2-20 mg by [facility] 00:00: mouth Medical 00 every 8 Center (eight) hours as needed. Max Daily Amount: 300 mg levETIRAcet 2022-0 Yes 500mg Q.5D Take [address] [facility] am (KEPPRA) 2-20 tablet [facility] 500 MG 00:00: (500 mg Medical tablet 00 total) by Center mouth 2 (two) times daily. traMADoL 2-0 Yes 100mg Take [address] [address] 100 mg Tab 2-20 mg by [facility] 00:00: mouth Medical 00 every 8 Center (eight) hours as needed. Max Daily Amount: 300 mg levETIRAcet 2021-0 Yes 500mg Q.5D Take [address] [facility] am (KEPPRA) 2-20 tablet [facility] 500 MG 00:00: (500 mg Medical tablet 00 total) by Center mouth 2 (two) times daily. traMADoL 2-0 Yes 100mg Take [address] 100 mg Tab 2-20 mg by [facility] 00:00: mouth Medical 00 every 8 Center (eight) hours as needed. Max Daily Amount: 300 mg metroNIDAZO 2021-0 2021- No 500mg Q.5D Take [address] [facility] (FLAGYL) -12-25 tablet [facility] 500 MG 00:00: 23:59 (500 mg Medical tablet 00 :00 total) by Center mouth 2 (two) times daily for 7 days First dose 2 PM. Start twice daily dosing 12/19 AM. HYDROcodone 2021-0 2021- No 1{tbl} Take [address] -acetaminop -12-20 tablet by Maranda pathak (NORCO 00:00: 23:59 mouth Medic al 5-325) 00 :00 every 8 Center 5-325 mg (eight) per tablet hours as needed (Severe pain) for up to 2 days. Max Daily Amount: 3 tablets methylPREDN 2022-0 Yes [id number] Take by Univers ISolone 2-15 mouth ity of (MEDROL, 00:00: SEE-INSTRU [place] BAMBI,) 4 mg 00 CTIONS. Medica l tablets follow Branch package directions methylPREDN 2022-0 Yes [id number] Take by Univers ISolone 2-15 mouth ity of (MEDROL, 00:00: SEE-INSTRU [place]AMBI,) 4 mg 00 CTIONS. Medica l tablets follow Branch package directions methylPREDN 2022-0 Yes [id number] Take by Univers ISolone 2-15 mouth ity of (MEDROL, 00:00: SEE-INSTRU [place]AMBI,) 4 mg 00 CTIONS. Medica l tablets follow Branch package directions methylPREDN 2022-0 Yes [id number] Take by Univers ISolone 2-15 mouth ity of (MEDROL, 00:00: SEE-INSTRU [place]AMBI,) 4 mg 00 CTIONS. Medica l tablets follow Branch package directions methylPREDN 2022-0 Yes [id number] Take by Univers ISolone 2-15 mouth ity of (MEDROL, 00:00: SEE-INSTRU [place]AMBI,) 4 mg 00 CTIONS. Medica l tablets follow Branch package directions methylPREDN 2022-0 Yes [id number] Take by Univers ISolone 2-15 mouth ity of (MEDROL, 00:00: SEE-INSTRU [place],) 4 mg 00 CTIONS. Medica l tablets follow Branch package directions methylPREDN 2022-0 Yes [id number] Take by Univers ISolone 2-15 mouth ity of (MEDROL, 00:00: SEE-INSTRU [place]AM[place],) 4 mg 00 CTIONS. Medica l tablets follow Branch package directions methylPREDN 2022-0 Yes [id number] Take by Univers ISolone 2-15 mouth ity of (MEDROL, 00:00: SEE-INSTRU [place]AM[place],) 4 mg 00 CTIONS. Medica l tablets follow Branch package directions methylPREDN 2022-0 Yes [id number] Take by Univers ISolone 2-15 mouth ity of (MEDROL, 00:00: SEE-INSTRU [place]AM[place],) 4 mg 00 CTIONS. Medica l tablets follow Branch package directions methylPREDN 2022-0 Yes [id number] Take by Univers ISolone 2-15 mouth ity of (MEDROL, 00:00: SEE-INSTRU [place]AM[place],) 4 mg 00 CTIONS. Medica l tablets follow Branch package directions methylPREDN 2022-0 Yes [id number] Take by Univers ISolone 2-15 mouth ity of (MEDROL, 00:00: SEE-INSTRU [place]AMBI,) 4 mg 00 CTIONS. Medica l tablets follow Branch package directions methylPREDN 2022-0 Yes [id number] Take by Univers ISolone 2-15 mouth ity of (MEDROL, 00:00: SEE-INSTRU [place]AMBI,) 4 mg 00 CTIONS. Medica l tablets follow Branch package directions methylPREDN 2022-0 Yes [id number] Take by Univers ISolone 2-15 mouth ity of (MEDROL, 00:00: SEE-INSTRU [place]AMBI,) 4 mg 00 CTIONS. Medica l tablets follow Branch package directions methylPREDN 2022-0 Yes [id number] Take by Univers ISolone 2-15 mouth ity of (MEDROL, 00:00: SEE-INSTRU [place]AMBI,) 4 mg 00 CTIONS. Medica l tablets follow Branch package directions methylPREDN 2022-0 Yes [id number] Take by Univers ISolone 2-15 mouth ity of (MEDROL, 00:00: SEE-INSTRU [place]AMBI,) 4 mg 00 CTIONS. Medica l tablets follow Branch package directions methylPREDN 2022-0 Yes [id number] Take by Univers ISolone 2-15 mouth ity of (MEDROL, 00:00: SEE-INSTRU [place]AMBI,) 4 mg 00 CTIONS. Medica l tablets follow Branch package directions methylPREDN 2022-0 Yes [id number] Take by Univers ISolone 2-15 mouth ity of (MEDROL, 00:00: SEE-INSTRU [place]AM[place],) 4 mg 00 CTIONS. Medica l tablets follow Branch package directions methylPREDN 2022-0 Yes [id number] Take by Univers ISolone 2-15 mouth ity of (MEDROL, 00:00: SEE-INSTRU [place]AM[place],) 4 mg 00 CTIONS. Medica l tablets follow Branch package directions methylPREDN 2022-0 Yes [id number] Take by Univers ISolone 2-15 mouth ity of (MEDROL, 00:00: SEE-INSTRU [place]AM[place],) 4 mg 00 CTIONS. Medica l tablets follow Branch package directions methylPREDN 2022-0 Yes [id number] Take by Univers ISolone 2-15 mouth ity of (MEDROL, 00:00: SEE-INSTRU [place]AM[place],) 4 mg 00 CTIONS. Medica l tablets follow Branch package directions methylPREDN 2022-0 Yes [id number] Take by Univers ISolone 2-15 mouth ity of (MEDROL, 00:00: SEE-INSTRU [place]AM[place],) 4 mg 00 CTIONS. Medica l tablets follow Branch package directions methylPREDN 2022-0 Yes [id number] Take by Univers ISolone 2-15 mouth ity of (MEDROL, 00:00: SEE-INSTRU [place]AM[place],) 4 mg 00 CTIONS. Medica l tablets follow Branch package directions methylPREDN 2022-0 Yes [id number] Take by Univers ISolone 2-15 mouth ity of (MEDROL, 00:00: SEE-INSTRU [place]AM[place],) 4 mg 00 CTIONS. Medica l tablets follow Branch package directions methylPREDN 2022-0 Yes [id number] Take by Univers ISolone 2-15 mouth ity of (MEDROL, 00:00: SEE-INSTRU [place]AM[place],) 4 mg 00 CTIONS. Medica l tablets follow Branch package directions methylPREDN 2022-0 Yes [id number] Take by Univers ISolone 2-15 mouth ity of (MEDROL, 00:00: SEE-INSTRU [place]AM[place],) 4 mg 00 CTIONS. Medica l tablets follow Branch package directions methylPREDN 2022-0 Yes [id number] Take by Univers ISolone 2-15 mouth ity of (MEDROL, 00:00: SEE-INSTRU [place]AM[place],) 4 mg 00 CTIONS. Medica l tablets follow Branch package directions methylPREDN 2022-0 Yes [id number] Take by Univers ISolone 2-15 mouth ity of (MEDROL, 00:00: SEE-INSTRU [place]AM[place],) 4 mg 00 CTIONS. Medica l tablets follow Branch package directions methylPREDN 2022-0 Yes [id number] Take by Univers ISolone 2-15 mouth ity of (MEDROL, 00:00: SEE-INSTRU [place]AMBI,) 4 mg 00 CTIONS. Medica l tablets follow Branch package directions methylPREDN Yes [id number] Take by Univers ISolone 2-15 mouth ity of (MEDROL, 00:00: SEE-INSTRU [place]AMBI,) 4 mg 00 CTIONS. Medica l tablets follow Branch package directions methylPREDN 2021- No [id number] Take by Univers ISolone 221 mouth ity of (MEDROL, 00:00: 05:[place] 4 mg 00 :00 CTIONS for Med ical tablets 5 days. Branch follow package directions methylPREDN 2021- No [id number] Take by Univers ISolone 12-13 mouth ity of (MEDROL, 00:00: 00:[place],) 4 mg 00 :00 CTIONS for Med ical tablets 5 days. Branch follow package directions omeprazole 2021- No [id number] 40mg Take 1 Univers 40 mg 2-14 - capsule by ity of capsule 00:00: 05:59 mouth [place] 00 :00 daily for Medical 14 days. Branch omeprazole 2021- No [id number] 40mg Take 1 Univers 40 mg 2-09 01- capsule by ity of capsule 00:00: 05:59 mouth [place] 00 :00 daily for Medical 14 days. Branch omeprazole 2021- No [id number] 40mg Take 1 Univers 40 mg -14 - capsule by ity of capsule 00:00: 05:59 mouth [place] 00 :00 daily for Medical 14 days. Branch omeprazole 2021- No [id number] 40mg Take 1 Univers 40 mg 2-14 - capsule by ity of capsule 00:00: 05:59 mouth [place] 00 :00 daily for Medical 14 days. Branch omeprazole 2021- No [id number] 40mg Take 1 [facility] 40 mg 2-14 - capsule by ity of capsule 00:00: 05:59 mouth [place] 00 :00 daily for Medical 14 days. Branch bromphenira 2021- No [id number] 10mL Take 10 mL [facility] mine-pseudo 12-12 by mouth 4 i ty of ephedrine-D 00:00: 05:59 (four) [place] as M (BROMFED 00 :00 times Medical DM) 2-30-10 daily as Bran ch mg/5 mL needed for syrup Congestion /Allergies for up to 10 days. ondansetron 2021- No [id number] 4mg Take 1 [facility] (ZOFRAN) 4 12-12 tablet by ity of mg tablet 00:00: 05:59 mouth [place] 00 :00 every 8 Medical (eight) Branch hours as needed for Nausea and Vomiting (N/V) for up to 10 days. ciprofloxac 2021- No [id number] 4[drp] Place 4 [facility] in-dexameth 12-12 [id number] Drops in it y of asone 00:00: 05:59 right ear [place] (CIPRODEX) 00 :00 2 (two) Medica l 0.3-0.1 % times Branch otic drops daily for 10 days. ibuprofen 2021- No [id number] 600mg Take 1 [facility] 600 mg 12-12 [id number] tablet by ity of tablet 00:00: 05:59 mouth [place] 00 :00 every 6 Medical (six) Branch hours as needed for Pain (scale 4-6) for up to 10 days. bromphenira 2021- No [id number] 10mL Take 10 mL [facility] mine-pseudo 12-12 by mouth 4 i ty of ephedrine-D 00:00: 05:59 (four) [place] as M (BROMFED 00 :00 times Medical DM) 2-30-10 daily as Bran ch mg/5 mL needed for syrup Congestion /Allergies for up to 10 days. ondansetron 2021-2021- No [id number] 4mg Take 1 [facility] (ZOFRAN) 4 12-12 tablet by ity of mg tablet 00:00: 05:59 mouth [place] 00 :00 every 8 Medical (eight) Branch hours as needed for Nausea and Vomiting (N/V) for up to 10 days. ciprofloxac 2021-2021- No [id number] 4[drp] Place 4 [facility] in-dexameth 12-12 [id number] Drops in it y of asone 00:00: 05:59 right ear [place] (CIPRODEX) 00 :00 2 (two) Medica l 0.3-0.1 % times Branch otic drops daily for 10 days. ibuprofen 2021- No [id number] 600mg Take 1 [facility] 600 mg 12-12 [id number] tablet by ity of tablet 00:00: 05:59 mouth [place] 00 :00 every 6 Medical (six) Branch hours as needed for Pain (scale 4-6) for up to 10 days. bromphenira 2021- No [id number] 10mL Take 10 mL [facility] mine-pseudo 12-12 by mouth 4 i ty of ephedrine-D 00:00: 05:59 (four) [place] [facility] M (BROMFED 00 :00 times Medical DM) 2-30-10 daily as Bran ch mg/5 mL needed for syrup Congestion /Allergies for up to 10 days. ondansetron 2021- No [id number] 4mg Take 1 [facility] (ZOFRAN) 4 12-12 tablet by ity of mg tablet 00:00: 05:59 mouth [place] 00 :00 every 8 Medical (eight) Branch hours as needed for Nausea and Vomiting (N/V) for up to 10 days. ciprofloxac 2021- No [id number] 4[drp] Place 4 [facility] in-dexameth 12-12 [id number] Drops in it y of asone 00:00: 05:59 right ear [place] (CIPRODEX) 00 :00 2 (two) Medica l 0.3-0.1 % times Branch otic drops daily for 10 days. ibuprofen 2021- No [id number] 600mg Take 1 [facility] 600 mg 12-12 [id number] tablet by ity of tablet 00:00: 05:59 mouth [place] 00 :00 every 6 Medical (six) Branch hours as needed for Pain (scale 4-6) for up to 10 days. bromphenira 2021- No [id number] 10mL Take 10 mL [facility] mine-pseudo 12-12 by mouth 4 i ty of ephedrine-D 00:00: 05:59 (four) [place] as M (BROMFED 00 :00 times Medical DM) 2-30-10 daily as Bran ch mg/5 mL needed for syrup Congestion /Allergies for up to 10 days. ondansetron 2021- No [id number] 4mg Take 1 [facility] (ZOFRAN) 4 12-12 tablet by ity of mg tablet 00:00: 05:59 mouth [place] 00 :00 every 8 Medical (eight) Branch hours as needed for Nausea and Vomiting (N/V) for up to 10 days. ciprofloxac 2021- No [id number] 4[drp] Place 4 [facility] in-dexameth 12-12 [id number] Drops in it y of asone 00:00: 05:59 right ear [place] (CIPRODEX) 00 :00 2 (two) Medica l 0.3-0.1 % times Branch otic drops daily for 10 days. ibuprofen 2021- No [id number] 600mg Take 1 [facility] 600 mg 12-12 [id number] tablet by ity of tablet 00:00: 05:59 mouth [place] 00 :00 every 6 Medical (six) Branch hours as needed for Pain (scale 4-6) for up to 10 days. bromphenira 2021- No [id number] 10mL Take 10 mL [facility] mine-pseudo 12-12 by mouth 4 i ty of ephedrine-D 00:00: 05:59 (four) [place] as M (BROMFED 00 :00 times Medical DM) 2-30-10 daily as Bran ch mg/5 mL needed for syrup Congestion /Allergies for up to 10 days. ondansetron 2021- No [id number] 4mg Take 1 [facility] (ZOFRAN) 4 12-12 tablet by ity of mg tablet 00:00: 05:59 mouth [place] 00 :00 every 8 Medical (eight) Branch hours as needed for Nausea and Vomiting (N/V) for up to 10 days. ciprofloxac 2021- No [id number] 4[drp] Place 4 [facility] in-dexameth 12-12 [id number] Drops in it y of asone 00:00: 05:59 right ear [place] (CIPRODEX) 00 :00 2 (two) Medica l 0.3-0.1 % times Branch otic drops daily for 10 days. ibuprofen 2- No [id number] 600mg Take 1 [facility] 600 mg -14 [...] [place] ORAL) Medical Branch cetirizine 2020-10 Yes [id number] 10mg Take 1 [facility] (ZYRTEC) 10 0-01 tablet by ity of mg tablet 00:00: mouth 00 daily. Medical Branch azelastine 2020-10 Yes [id number] 1{spray Use 1 [facility] 137 mcg 0-01 } [place] in ity of (0.1 %) 00:00: each [place] nasal spray 00 nostril 2 Med ical (two) Branch times daily. Use in each nostril as directed fluticasone 2020-10 Yes [id number] 1{spray Use 1 [facility] propionate 0-01 } [place] in ity o f 50 00:00: each [place] mcg/actuati 00 nostril Medic al on nasal daily. Branch spray cetirizine 2020-10 Yes [id number] 10mg Take 1 [facility] (ZYRTEC) 10 0-01 tablet by ity of mg tablet 00:00: mouth 00 daily. Medical Branch azelastine 2020-10 Yes [id number] 1{spray Use 1 [facility] 137 mcg 0-01 } [place] in ity of (0.1 %) 00:00: each [place] nasal spray 00 nostril 2 Med ical (two) Branch times daily. Use in each nostril as directed fluticasone 2020-10 Yes [id number] 1{spray Use 1 [facility] propionate 0-01 } [place] in ity o f 50 00:00: each [place] mcg/actuati 00 nostril Medic al on nasal daily. Branch spray cetirizine 2020-10 Yes [id number] 10mg Take 1 [facility] n[facility] (ZYRTEC) 10 0-01 tablet by ity of mg tablet 00:00: mouth [place] 00 daily. Medical Branch azelastine 2020-10 Yes [id number] 1{spray Use 1 [facility] 137 mcg 0-01 } [place] in ity of (0.1 %) 00:00: each [place] nasal spray 00 nostril 2 Med ical (two) Branch times daily. Use in each nostril as directed fluticasone 2020-10 Yes [id number] 1{spray Use 1 [facility] propionate 0-01 } [place] in ity o f 50 00:00: each [place] mcg/actuati 00 nostril Medic al on nasal daily. Branch spray cetirizine 2020-10 Yes [id number] 10mg Take 1 [facility] n[facility] (ZYRTEC) 10 0-01 tablet by ity of mg tablet 00:00: mouth [place] 00 daily. Medical Branch azelastine 2020-10 Yes [id number] 1{spray Use 1 [facility] 137 mcg 0-01 } [place] in ity of (0.1 %) 00:00: each [place] nasal spray 00 nostril 2 Med ical (two) Branch times daily. Use in each nostril as directed fluticasone 2020-10 Yes [id number] 1{spray Use 1 [facility] propionate 0-01 } [place] in ity o f 50 00:00: each [place] mcg/actuati 00 nostril Medic al on nasal daily. Branch spray cetirizine 2020-10 Yes [id number] 10mg Take 1 [facility] n[facility] (ZYRTEC) 10 0-01 tablet by ity of mg tablet 00:00: mouth [place] 00 daily. Medical Branch azelastine 2020-10 Yes [id number] 1{spray Use 1 [facility] 137 mcg 0-01 } [place] in ity of (0.1 %) 00:00: each [place] nasal spray 00 nostril 2 Med ical (two) Branch times daily. Use in each nostril as directed fluticasone 2020-10 Yes [id number] 1{spray Use 1 [facility] propionate 0-01 } [place] in ity o f 50 00:00: each [place] mcg/actuati 00 nostril Medic al on nasal daily. Branch spray cetirizine 2020-10 Yes [id number] 10mg Take 1 [facility] n[facility] (ZYRTEC) 10 0-01 tablet by ity of mg tablet 00:00: mouth [place] 00 daily. Medical Branch azelastine 2020-10 Yes [id number] 1{spray Use 1 [facility] 137 mcg 0-01 } [place] in ity of (0.1 %) 00:00: each [place] nasal spray 00 nostril 2 Med ical (two) Branch times daily. Use in each nostril as directed fluticasone 2020-10 Yes [id number] 1{spray Use 1 [facility] propionate 0-01 } [place] in ity o f 50 00:00: each [place] mcg/actuati 00 nostril Medic al on nasal daily. Branch spray cetirizine 2020-10 Yes [id number] 10mg Take 1 [facility] n[facility] (ZYRTEC) 10 0-01 tablet by ity of mg tablet 00:00: mouth [place] 00 daily. Medical Branch azelastine 2020-10 Yes [id number] 1{spray Use 1 [facility] 137 mcg 0-01 } [place] in ity of (0.1 %) 00:00: each [place] nasal spray 00 nostril 2 Med ical (two) Branch times daily. Use in each nostril as directed fluticasone 2020-10 Yes [id number] 1{spray Use 1 [facility] propionate 0-01 } [place] in ity o f 50 00:00: each [place] mcg/actuati 00 nostril Medic al on nasal daily. Branch spray cetirizine 2020-10 Yes [id number] 10mg Take 1 [facility] n[facility] (ZYRTEC) 10 0-01 tablet by ity of mg tablet 00:00: mouth [place] 00 daily. Medical Branch azelastine 2020-10 Yes [id number] 1{spray Use 1 [facility] 137 mcg 0-01 } [place] in ity of (0.1 %) 00:00: each [place] nasal spray 00 nostril 2 Med ical (two) Branch times daily. Use in each nostril as directed fluticasone 2020-10 Yes [id number] 1{spray Use 1 [facility] propionate 0-01 } [place] in ity o f 50 00:00: each [place] mcg/actuati 00 nostril Medic al on nasal daily. Branch spray cetirizine 2020-10 Yes [id number] 10mg Take 1 [facility] n[facility] (ZYRTEC) 10 0-01 tablet by ity of mg tablet 00:00: mouth [place] 00 daily. Medical Branch azelastine 2020-10 Yes [id number] 1{spray Use 1 [facility] 137 mcg 0-01 } [place] in ity of (0.1 %) 00:00: each [place] nasal spray 00 nostril 2 Med ical (two) Branch times daily. Use in each nostril as directed fluticasone 2020-10 Yes [id number] 1{spray Use 1 [facility] propionate 0-01 } [place] in ity o f 50 00:00: each [place] mcg/actuati 00 nostril Medic al on nasal daily. Branch spray cetirizine 2020-10 Yes [id number] 10mg Take 1 [facility] n[facility] (ZYRTEC) 10 0-01 tablet by ity of mg tablet 00:00: mouth [place] 00 daily. Medical Branch azelastine 2020-10 Yes [id number] 1{spray Use 1 [facility] 137 mcg 0-01 } [place] in ity of (0.1 %) 00:00: each [place] nasal spray 00 nostril 2 Med ical (two) Branch times daily. Use in each nostril as directed fluticasone 2020-10 Yes [id number] 1{spray Use 1 [facility] propionate 0-01 } [place] in ity o f 50 00:00: each [place] mcg/actuati 00 nostril Medic al on nasal daily. Branch spray cetirizine 2020-10 Yes [id number] 10mg Take 1 [facility] n[facility] (ZYRTEC) 10 0-01 tablet by ity of mg tablet 00:00: mouth [place] 00 daily. Medical Branch azelastine 2020-10 Yes [id number] 1{spray Use 1 [facility] 137 mcg 0-01 } [place] in ity of (0.1 %) 00:00: each [place] nasal spray 00 nostril 2 Med ical (two) Branch times daily. Use in each nostril as directed fluticasone 2020-10 Yes [id number] 1{spray Use 1 [facility] propionate 0-01 } [place] in ity o f 50 00:00: each [place] mcg/actuati 00 nostril Medic al on nasal daily. Branch spray cetirizine 2020-10 Yes [id number] 10mg Take 1 [facility] n[facility] (ZYRTEC) 10 0-01 tablet by ity of mg tablet 00:00: mouth [place] 00 daily. Medical Branch azelastine 2020-10 Yes [id number] 1{spray Use 1 [facility] 137 mcg 0-01 } [place] in ity of (0.1 %) 00:00: each [place] nasal spray 00 nostril 2 Med ical (two) Branch times daily. Use in each nostril as directed fluticasone 2020-10 Yes [id number] 1{spray Use 1 [facility] propionate 0-01 } [place] in ity o f 50 00:00: each [place] mcg/actuati 00 nostril Medic al on nasal daily. Branch spray cetirizine 2020-10 Yes [id number] 10mg Take 1 [facility] nivers (ZYRTEC) 10 0-01 tablet by ity of mg tablet 00:00: mouth [place] 00 daily. Medical Branch azelastine 2020-10 Yes [id number] 1{spray Use 1 [facility] 137 mcg 0-01 } [place] in ity of (0.1 %) 00:00: each [place] nasal spray 00 nostril 2 Med ical (two) Branch times daily. Use in each nostril as directed fluticasone 2020-10 Yes [id number] 1{spray Use 1 [facility] propionate 0-01 } [place] in ity o f 50 00:00: each [place] mcg/actuati 00 nostril Medic al on nasal daily. Branch spray cetirizine 2020-10 Yes [id number] 10mg Take 1 U nivers (ZYRTEC) 10 0-01 tablet by ity of mg tablet 00:00: mouth [place] 00 daily. Medical Branch azelastine 2020-10 Yes [id number] 1{spray Use 1 [facility] 137 mcg 0-01 } [place] in ity of (0.1 %) 00:00: each [place] nasal spray 00 nostril 2 Med ical (two) Branch times daily. Use in each nostril as directed fluticasone 2020-10 Yes [id number] 1{spray Use 1 [facility] propionate 0-01 } [place] in ity o f 50 00:00: each [place] mcg/actuati 00 nostril Medic al on nasal daily. Branch spray cetirizine 2020-10 Yes [id number] 10mg Take 1 U nivers (ZYRTEC) 10 0-01 tablet by ity of mg tablet 00:00: mouth [place] 00 daily. Medical Branch azelastine 2020-10 Yes [id number] 1{spray Use 1 [facility] 137 mcg 0-01 } [place] in ity of (0.1 %) 00:00: each [place] nasal spray 00 nostril 2 Med ical (two) Branch times daily. Use in each nostril as directed fluticasone 2020-10 Yes [id number] 1{spray Use 1 [facility] propionate 0-01 } [place] in ity o f 50 00:00: each [place] mcg/actuati 00 nostril Medic al on nasal daily. Branch spray cetirizine 2020-10 Yes [id number] 10mg Take 1 U nivers (ZYRTEC) 10 0-01 tablet by ity of mg tablet 00:00: mouth [place] 00 daily. Medical Branch azelastine 2020-10 Yes [id number] 1{spray Use 1 [facility] 137 mcg 0-01 } [place] in ity of (0.1 %) 00:00: each [place] nasal spray 00 nostril 2 Med ical (two) Branch times daily. Use in each nostril as directed fluticasone 2020-10 Yes [id number] 1{spray Use 1 [facility] propionate 0-01 } [place] in ity o f 50 00:00: each [place] mcg/actuati 00 nostril Medic al on nasal daily. Branch spray cetirizine 2020-10 Yes [id number] 10mg Take 1 U nivers (ZYRTEC) 10 0-01 tablet by ity of mg tablet 00:00: mouth [place] 00 daily. Medical Branch azelastine 2020-10 Yes [id number] 1{spray Use 1 [facility] 137 mcg 0-01 } [place] in ity of (0.1 %) 00:00: each [place] nasal spray 00 nostril 2 Med ical (two) Branch times daily. Use in each nostril as directed fluticasone 2020-10 Yes [id number] 1{spray Use 1 [facility] propionate 0-01 } [place] in ity o f 50 00:00: each [place] mcg/actuati 00 nostril Medic al on nasal daily. Branch spray cetirizine 2020-10 Yes [id number] 10mg Take 1 U nivers (ZYRTEC) 10 0-01 tablet by ity of mg tablet 00:00: mouth [place] 00 daily. Medical Branch azelastine 2020-10 Yes [id number] 1{spray Use 1 [facility] 137 mcg 0-01 } [place] in ity of (0.1 %) 00:00: each [place] nasal spray 00 nostril 2 Med ical (two) Branch times daily. Use in each nostril as directed fluticasone 2020-10 Yes [id number] 1{spray Use 1 [facility] propionate 0-01 } [place] in ity o f 50 00:00: each [place] mcg/actuati 00 nostril Medic al on nasal daily. Branch spray cetirizine 2020-10 Yes [id number] 10mg Take 1 U nivers (ZYRTEC) 10 0-01 tablet by ity of mg tablet 00:00: mouth [place] 00 daily. Medical Branch azelastine 2020-10 Yes [id number] 1{spray Use 1 [facility] 137 mcg 0-01 } [place] in ity of (0.1 %) 00:00: each [place] nasal spray 00 nostril 2 Med ical (two) Branch times daily. Use in each nostril as directed fluticasone 2020-10 Yes [id number] 1{spray Use 1 [facility] propionate 0-01 } [place] in ity o f 50 00:00: each [place] mcg/actuati 00 nostril Medic al on nasal daily. Branch spray cetirizine 2020-10 Yes [id number] 10mg Take 1 U nivers (ZYRTEC) 10 0-01 tablet by ity of mg tablet 00:00: mouth [place] 00 daily. Medical Branch azelastine 2020-10 Yes [id number] 1{spray Use 1 [facility] 137 mcg 0-01 } [place] in ity of (0.1 %) 00:00: each [place] nasal spray 00 nostril 2 Med ical (two) Branch times daily. Use in each nostril as directed fluticasone 2020-10 Yes [id number] 1{spray Use 1 [facility] propionate 0-01 } [place] in ity o f 50 00:00: each [place] mcg/actuati 00 nostril Medic al on nasal daily. Branch spray cetirizine 2020-10 Yes [id number] 10mg Take 1 U nivers (ZYRTEC) 10 0-01 tablet by ity of mg tablet 00:00: mouth [place] 00 daily. Medical Branch azelastine 2020-10 Yes [id number] 1{spray Use 1 [facility] 137 mcg 0-01 } [place] in ity of (0.1 %) 00:00: each [place] nasal spray 00 nostril 2 Med ical (two) Branch times daily. Use in each nostril as directed fluticasone 2020-10 Yes [id number] 1{spray Use 1 [facility] propionate 0-01 } [place] in ity o f 50 00:00: each [place] mcg/actuati 00 nostril Medic al on nasal daily. Branch spray cetirizine 2020-10 Yes [id number] 10mg Take 1 U nivers (ZYRTEC) 10 0-01 tablet by ity of mg tablet 00:00: mouth [place] 00 daily. Medical Branch azelastine 2020-10 Yes [id number] 1{spray Use 1 [facility] 137 mcg 0-01 } [place] in ity of (0.1 %) 00:00: each [place] nasal spray 00 nostril 2 Med ical (two) Branch times daily. Use in each nostril as directed fluticasone 2020-10 Yes [id number] 1{spray Use 1 [facility] propionate 0-01 } [place] in ity o f 50 00:00: each [place] mcg/actuati 00 nostril Medic al on nasal daily. Branch spray cetirizine 2020-10 Yes [id number] 10mg Take 1 U nivers (ZYRTEC) 10 0-01 tablet by ity of mg tablet 00:00: mouth [place] 00 daily. Medical Branch azelastine 2020-10 Yes [id number] 1{spray Use 1 [facility] 137 mcg 0-01 } [place] in ity of (0.1 %) 00:00: each [place] nasal spray 00 nostril 2 Med ical (two) Branch times daily. Use in each nostril as directed fluticasone 2020-10 Yes [id number] 1{spray Use 1 [facility] propionate 0-01 } [place] in ity o f 50 00:00: each [place] mcg/actuati 00 nostril Medic al on nasal daily. Branch spray cetirizine 2020-10 Yes [id number] 10mg Take 1 U nivers (ZYRTEC) 10 0-01 tablet by ity of mg tablet 00:00: mouth [place] 00 daily. Medical Branch azelastine 2020-10 Yes [id number] 1{spray Use 1 [facility] 137 mcg 0-01 } [place] in ity of (0.1 %) 00:00: each [place] nasal spray 00 nostril 2 Med ical (two) Branch times daily. Use in each nostril as directed fluticasone 2020-10 Yes [id number] 1{spray Use 1 [facility] propionate 0-01 } [place] in ity o f 50 00:00: each [place] mcg/actuati 00 nostril Medic al on nasal daily. Branch spray cetirizine 2020-10 Yes [id number] 10mg Take 1 U nivers (ZYRTEC) 10 0-01 tablet by ity of mg tablet 00:00: mouth [place] 00 daily. Medical Branch azelastine 2020-10 Yes [id number] 1{spray Use 1 [facility] 137 mcg 0-01 } [place] in ity of (0.1 %) 00:00: each [place] nasal spray 00 nostril 2 Med ical (two) Branch times daily. Use in each nostril as directed fluticasone 2020-10 Yes [id number] 1{spray Use 1 [facility] propionate 0-01 } [place] in ity o f 50 00:00: each [place] mcg/actuati 00 nostril Medic al on nasal daily. Branch spray cetirizine 2020-10 Yes [id number] 10mg Take 1 U nivers (ZYRTEC) 10 0-01 tablet by ity of mg tablet 00:00: mouth [place] 00 daily. Medical Branch azelastine 2020-10 Yes [id number] 1{spray Use 1 [facility] 137 mcg 0-01 } [place] in ity of (0.1 %) 00:00: each [place] nasal spray 00 nostril 2 Med ical (two) Branch times daily. Use in each nostril as directed fluticasone 2020-10 Yes [id number] 1{spray Use 1 [facility] propionate 0-01 } [place] in ity o f 50 00:00: each [place] mcg/actuati 00 nostril Medic al on nasal daily. Branch spray cetirizine 2020-10 Yes [id number] 10mg Take 1 U nivers (ZYRTEC) 10 0-01 tablet by ity of mg tablet 00:00: mouth [place] 00 daily. Medical Branch azelastine 2020-10 Yes [id number] 1{spray Use 1 [facility] 137 mcg 0-01 } [place] in ity of (0.1 %) 00:00: each [place] nasal spray 00 nostril 2 Med ical (two) Branch times daily. Use in each nostril as directed fluticasone 2020-10 Yes [id number] 1{spray Use 1 [facility] propionate 0-01 } [place] in ity o f 50 00:00: each [place] mcg/actuati 00 nostril Medic al on nasal daily. Branch spray cetirizine 2020-10 Yes [id number] 10mg Take 1 U nivers (ZYRTEC) 10 0-01 tablet by ity of mg tablet 00:00: mouth [place] 00 daily. Medical Branch azelastine 2020-10 Yes [id number] 1{spray Use 1 [facility] 137 mcg 0-01 } [place] in ity of (0.1 %) 00:00: each [place] nasal spray 00 nostril 2 Med ical (two) Branch times daily. Use in each nostril as directed fluticasone 2020-10 Yes [id number] 1{spray Use 1 [facility] propionate 0-01 } [place] in ity o f 50 00:00: each [place] mcg/actuati 00 nostril Medic al on nasal daily. Branch spray cetirizine 2020-10 Yes [id number] 10mg Take 1 U nivers (ZYRTEC) 10 0-01 tablet by ity of mg tablet 00:00: mouth [place] 00 daily. Medical Branch azelastine 2020-10 Yes [id number] 1{spray Use 1 [facility] 137 mcg 0-01 } [place] in ity of (0.1 %) 00:00: each [place] nasal spray 00 nostril 2 Med ical (two) Branch times daily. Use in each nostril as directed fluticasone 2020-10 Yes [id number] 1{spray Use 1 [facility] propionate 0-01 } [place] in ity o f 50 00:00: each [place] mcg/actuati 00 nostril Medic al on nasal daily. Branch spray cetirizine 2020-10 Yes [id number] 10mg Take 1 U nivers (ZYRTEC) 10 0-01 tablet by ity of mg tablet 00:00: mouth [place] 00 daily. Medical Branch azelastine 2020-10 Yes [id number] 1{spray Use 1 [facility] 137 mcg 0-01 } [place] in ity of (0.1 %) 00:00: each [place] nasal spray 00 nostril 2 Med ical (two) Branch times daily. Use in each nostril as directed fluticasone 2020-10 Yes [id number] 1{spray Use 1 [facility] propionate 0-01 } [place] in ity o f 50 00:00: each [place] mcg/actuati 00 nostril Medic al on nasal daily. Branch spray cetirizine 2020-10 Yes [id number] 10mg Take 1 U n[facility] (ZYRTEC) 10 0-01 tablet by ity of mg tablet 00:00: mouth [place] 00 daily. Medical Branch azelastine 2020-10 Yes [id number] 1{spray Use 1 [facility] 137 mcg 0-01 } [place] in ity of (0.1 %) 00:00: each [place] nasal spray 00 nostril 2 Med ical (two) Branch times daily. Use in each nostril as directed fluticasone 2020-10 Yes [id number] 1{spray Use 1 [facility] propionate 0-01 } [place] in ity o f 50 00:00: each [place] mcg/actuati 00 nostril Medic al on nasal daily. Branch spray cetirizine 2020-10 Yes [id number] 10mg Take 1 U n[facility] (ZYRTEC) 10 0-01 tablet by ity of mg tablet 00:00: mouth [place] 00 daily. Medical Branch azelastine 2020-10 Yes [id number] 1{spray Use 1 [facility] 137 mcg 0-01 } [place] in ity of (0.1 %) 00:00: each [place] nasal spray 00 nostril 2 Med ical (two) Branch times daily. Use in each nostril as directed fluticasone 2020-10 Yes [id number] 1{spray Use 1 [facility] propionate 0-01 } [place] in ity o f 50 00:00: each [place] mcg/actuati 00 nostril Medic al on nasal daily. Branch spray bromphenira 2020-10- No [id number] 5mL Take 5 mL [facility] mine-pseudo 0-14 by mouth 4 i ty of ephedrine-D 00:00: 00:00 (four) [place] as M (BROMFED 00 :00 times Medical DM) 2-30-10 daily as Bran ch mg/5 mL needed for syrup Congestion /Allergies . ibuprofen 2021- No [id number] 600mg Take 1 [facility] 600 mg 07-21 tablet by ity of tablet 00:00: 00:00 mouth [place] 00 :00 every 6 Medical (six) Branch hours as needed for Pain (scale 4-6). benzonatate Yes [id number] 100mg Take 1 [facility] 100 mg 9-10 capsule by ity of capsule 00:00: mouth 3 [place] (three) Medical times Branch daily as needed for Cough. benzonatate Yes [id number] 100mg Take 1 [facility] 100 mg 9-10 capsule by ity of capsule 00:00: mouth 3 [place] (three) Medical times Branch daily as needed for Cough. benzonatate Yes [id number] 100mg Take 1 [facility] 100 mg 9-10 capsule by ity of capsule 00:00: mouth 3 [place] (three) Medical times Branch daily as needed for Cough. benzonatate Yes [id number] 100mg Take 1 [facility] 100 mg 9-10 capsule by ity of capsule 00:00: mouth 3 [place] (three) Medical times Branch daily as needed for Cough. benzonatate Yes [id number] 100mg Take 1 [facility] 100 mg 9-10 capsule by ity of capsule 00:00: mouth 3 [place] (three) Medical times Branch daily as needed for Cough. benzonatate Yes [id number] 100mg Take 1 [facility] 100 mg 9-10 capsule by ity of capsule 00:00: mouth 3 [place] 00 (three) Medical times Branch daily as needed for Cough. benzonatate Yes [id number] 100mg Take 1 [facility] 100 mg 9-10 capsule by ity of capsule 00:00: mouth (three) Medical times Branch daily as needed for Cough. benzonatate 1-0 Yes [id number] 100mg Take 1 [facility] 100 mg 9-10 capsule by ity of capsule 00:00: mouth (three) Medical times Branch daily as needed for Cough. benzonatate 1-0 Yes [id number] 100mg Take 1 [facility] 100 mg 9-10 capsule by ity of capsule 00:00: mouth (three) Medical times Branch daily as needed for Cough. benzonatate 2020-0 Yes [id number] 100mg Take 1 [facility] 100 mg 9-10 capsule by ity of capsule 00:00: mouth (three) Medical times Branch daily as needed for Cough. benzonatate 2020-0 Yes [id number] 100mg Take 1 [facility] 100 mg 9-10 capsule by ity of capsule 00:00: mouth (three) Medical times Branch daily as needed for Cough. benzonatate 2020-0 Yes [id number] 100mg Take 1 [facility] 100 mg 9-10 capsule by [facility] of capsule 00:00: mouth (three) Medical times Branch daily as needed for Cough. benzonatate 2020-0 Yes [id number] 100mg Take 1 [facility] 100 mg 9-10 capsule by [facility] of capsule 00:00: mouth () Medical times Branch daily as needed for Cough. benzonatate 2020-0 Yes [id number] 100mg Take 1 [facility] 100 mg 9-10 capsule by [facility] of capsule 00:00: mouth (three) Medical times Branch daily as needed for Cough. benzonatate 2020-0 Yes [id number] 100mg Take 1 [facility] 100 mg 9-10 capsule by [facility] of capsule 00:00: mouth (three) Medical times Branch daily as needed for Cough. benzonatate 1-0 Yes [id number] 100mg Take 1 [facility] 100 mg 9-10 capsule by [facility] of capsule 00:00: mouth (three) Medical times Branch daily as needed for Cough. benzonatate 2021-0 Yes [id number] 100mg Take 1 [facility] 100 mg 9-10 capsule by [facility] of capsule 00:00: mouth (three) Medical times Branch daily as needed for Cough. benzonatate 2020-0 Yes [id number] 100mg Take 1 [facility] 100 mg 9-10 capsule by [facility] of capsule 00:00: mouth (three) Medical times Branch daily as needed for Cough. benzonatate 2020-0 Yes [id number] 100mg Take 1 [facility] 100 mg 9-10 capsule by [facility]y of capsule 00:00: mouth (three) Medical times Branch daily as needed for Cough. benzonatate 2020-0 Yes [id number] 100mg Take 1 [facility] 100 mg 9-10 capsule by [facility]y of capsule 00:00: mouth (three) Medical times Branch daily as needed for Cough. benzonatate 2020-0 Yes [id number] 100mg Take 1 [facility] 100 mg 9-10 capsule by [facility]y of capsule 00:00: mouth (three) Medical times Branch daily as needed for Cough. benzonatate 2020-0 Yes [id number] 100mg Take 1 [facility] 100 mg 9-10 capsule by [facility] of capsule 00:00: mouth (three) Medical times Branch daily as needed for Cough. benzonatate 2020-0 Yes [id number] 100mg Take 1 [facility] 100 mg 9-10 capsule by ity of capsule 00:00: mouth (three) Medical times Branch daily as needed for Cough. benzonatate 2020-0 Yes [id number] 100mg Take 1 [facility] 100 mg 9-10 capsule by ity of capsule 00:00: mouth (three) Medical times Branch daily as needed for Cough. benzonatate 2020-0 Yes [id number] 100mg Take 1 [facility] 100 mg 9-10 capsule by [facility]y of capsule 00:00: mouth (three) Medical times Branch daily as needed for Cough. benzonatate 2020-0 Yes [id number] 100mg Take 1 [facility] 100 mg 9-10 capsule by [facility]y of capsule 00:00: mouth (three) Medical times Branch daily as needed for Cough. benzonatate 1-0 Yes [id number] 100mg Take 1 [facility] 100 mg 9-10 capsule by [facility]y of capsule 00:00: mouth (three) Medical times Branch daily as needed for Cough. benzonatate 2020-0 Yes [id number] 100mg Take 1 [facility] 100 mg 9-10 capsule by ity of capsule 00:00: mouth 3 00 (three) Medical times Branch daily as needed for Cough. benzonatate 2021-0 Yes [id number] 100mg Take 1 [facility] 100 mg 9-10 capsule by ity of capsule 00:00: mouth 3 00 (three) Medical times Branch daily as needed for Cough. benzonatate 2021-0 Yes [id number] 100mg Take 1 [facility] 100 mg 9-10 capsule by it[facility] of capsule 00:00: mouth 3 00 (three) Medical times Branch daily as needed for Cough. benzonatate 2021-0 Yes [id number] 100mg Take 1 [facility] 100 mg 9-10 capsule by [facility]y of capsule 00:00: mouth 3 00 (three) Medical times Branch daily as needed for Cough. benzonatate 2021-0 Yes [id number] 100mg Take 1 [facility] 100 mg 9-10 capsule by ity of capsule 00:00: mouth 3 00 (three) Medical times Branch daily as needed for Cough. medroxyPROG 2020-0 Yes [id number] Take one [facility] ESTERone 4-03 by mouth ity of (PROVERA) 00:00: days one [place] 10 mg 00 through 10 [facility] tablet of each Branch month beginning 02/27/20. medroxyPROG 2020-0 Yes [id number] Take one [facility] ESTERone 4-03 by mouth ity of (PROVERA) 00:00: days one [place] 10 mg 00 through 10 Medical tablet of each Branch month beginning 02/27/20. medroxyPROG 2020-0 Yes [id number] Take one [facility] ESTERone 4-03 by mouth ity of (PROVERA) 00:00: days one [place] 10 mg 00 through 10 Medical tablet of each Branch month beginning 02/27/20. medroxyPROG 2020-0 Yes [id number] Take one [facility] ESTERone 4-03 by mouth ity of (PROVERA) 00:00: days one [place] 10 mg 00 through 10 Medical tablet of each Branch month beginning 02/27/20. medroxyPROG 2020-0 Yes [id number] Take one [facility] ESTERone 4-03 by mouth ity of (PROVERA) 00:00: days one [place] 10 mg 00 through 10 Medical tablet of each Branch month beginning 02/27/20. medroxyPROG 2020-0 Yes [id number] Take one [facility] ESTERone 4-03 by mouth ity of (PROVERA) 00:00: days one [place] 10 mg 00 through 10 Medical tablet of each Branch month beginning 02/27/20. medroxyPROG 2020-0 2021- No [id number] Take one [facility] ESTERone 4-03 12-21 by mouth ity of (PROVERA) 00:00: 00:00 days one [place] 10 mg 00 :00 through 10 Medical tablet of each Branch month beginning 02/27/20. medroxyPROG 2020-0 2021- No [id number] Take one [facility] ESTERone 4-03 12-21 by mouth ity of (PROVERA) 00:00: 00:00 days one [place] 10 mg 00 :00 through 10 Medical tablet of each Branch month beginning 02/27/20. medroxyPROG 2020-0 2021- No [id number] Take one [facility] ESTERone 4-03 12-21 by mouth ity of (PROVERA) 00:00: 00:00 days one [place] 10 mg 00 :00 through 10 Medical tablet of each Branch month beginning 02/27/20. amitriptyli 2020-0 Yes [id number] 25mg Take 1 [facility] ne 25 mg 3-26 tablet by ity of tablet 00:00: mouth at [place] [address] bedtime. Medical Branch metoprolol 2020-0 Yes [id number] 50mg Take 1 [facility] tartrate 50 3-26 tablet by ity of mg tablet 00:00: mouth 2 [place] (two) Medical times Branch daily. amitriptyli 2020-0 Yes [id number] 25mg Take 1 [facility] ne 25 mg 3-26 tablet by ity of tablet 00:00: mouth at [place] [address] bedtime. Medical Branch metoprolol 2020-0 Yes [id number] 50mg Take 1 [facility] tartrate 50 3-26 tablet by ity of mg tablet 00:00: mouth 2 [place] 00 (two) Medical times Branch daily. amitriptyli 2020-0 Yes [id number] 25mg Take 1 [facility] ne 25 mg 3-26 tablet by ity of tablet 00:00: mouth at [place] [address] bedtime. Medical Branch metoprolol 2020-0 Yes [id number] 50mg Take 1 [facility] tartrate 50 3-26 tablet by ity of mg tablet 00:00: mouth 2 [place] 00 (two) Medical times Branch daily. amitriptyli 2020-0 Yes [id number] 25mg Take 1 [facility] ne 25 mg 3-26 tablet by ity of tablet 00:00: mouth at [place] [address] bedtime. Medical Branch metoprolol 2020-0 Yes [id number] 50mg Take 1 [facility] tartrate 50 3-26 tablet by ity of mg tablet 00:00: mouth 2 [place] (two) Medical times Branch daily. amitriptyli 2020-0 Yes [id number] 25mg Take 1 [facility] ne 25 mg 3-26 tablet by ity of tablet 00:00: mouth at [place] [address] bedtime. Medical Branch metoprolol 2020-0 Yes [id number] 50mg Take 1 [facility] tartrate 50 3-26 tablet by ity of mg tablet 00:00: mouth 2 [place] (two) Medical times Branch daily. amitriptyli 2020-0 Yes [id number] 25mg Take 1 [facility] ne 25 mg 3-26 tablet by ity of tablet 00:00: mouth at [place] [address] bedtime. Medical Branch metoprolol 2020-0 Yes [id number] 50mg Take 1 [facility] tartrate 50 3-26 tablet by ity of mg tablet 00:00: mouth 2 [place] (two) Medical times Branch daily. amitriptyli 2020-0 Yes [id number] 25mg Take 1 [facility] ne 25 mg 3-26 tablet by ity of tablet 00:00: mouth at [place] [address] bedtime. Medical Branch metoprolol 2020-0 Yes [id number] 50mg Take 1 [facility] tartrate 50 3-26 tablet by ity of mg tablet 00:00: mouth 2 [place] (two) Medical times Branch daily. amitriptyli 2020-0 Yes [id number] 25mg Take 1 [facility] ne 25 mg 3-26 tablet by ity of tablet 00:00: mouth at [place] [address] bedtime. Medical Branch metoprolol 2020-0 Yes [id number] 50mg Take 1 [facility] tartrate 50 3-26 tablet by ity of mg tablet 00:00: mouth 2 [place] (two) Medical times Branch daily. amitriptyli 2020-0 Yes [id number] 25mg Take 1 [facility] ne 25 mg 3-26 tablet by ity of tablet 00:00: mouth at [place] [address] bedtime. Medical Branch metoprolol 2020-0 Yes [id number] 50mg Take 1 [facility] tartrate 50 3-26 tablet by ity of mg tablet 00:00: mouth 2 [place] (two) Medical times Branch daily. amitriptyli 2020-0 Yes [id number] 25mg Take 1 [facility] ne 25 mg 3-26 tablet by ity of tablet 00:00: mouth at [place] [address] bedtime. Medical Branch metoprolol 2020-0 Yes [id number] 50mg Take 1 [facility] tartrate 50 3-26 tablet by ity of mg tablet 00:00: mouth 2 [place] (two) Medical times Branch daily. amitriptyli 2020-0 Yes [id number] 25mg Take 1 [facility] ne 25 mg 3-26 tablet by ity of tablet 00:00: mouth at [place] [address] bedtime. Medical Branch metoprolol 2020-0 Yes [id number] 50mg Take 1 [facility] tartrate 50 3-26 tablet by ity of mg tablet 00:00: mouth 2 [place] (two) Medical times Branch daily. amitriptyli 2020-0 Yes [id number] 25mg Take 1 [facility] ne 25 mg 3-26 tablet by ity of tablet 00:00: mouth at [place] [address] bedtime. Medical Branch metoprolol 2020-0 Yes [id number] 50mg Take 1 [facility] tartrate 50 3-26 tablet by ity of mg tablet 00:00: mouth 2 [place] (two) Medical times Branch daily. amitriptyli 2020-0 Yes [id number] 25mg Take 1 [facility] ne 25 mg 3-26 tablet by ity of tablet 00:00: mouth at [place] [address] bedtime. Medical Branch metoprolol 2020-0 Yes [id number] 50mg Take 1 [facility] tartrate 50 3-26 tablet by ity of mg tablet 00:00: mouth 2 [place] (two) Medical times Branch daily. amitriptyli 2020-0 Yes [id number] 25mg Take 1 [facility] ne 25 mg 3-26 tablet by ity of tablet 00:00: mouth at [place] [address] bedtime. Medical Branch metoprolol 2020-0 Yes [id number] 50mg Take 1 [facility] tartrate 50 3-26 tablet by ity of mg tablet 00:00: mouth 2 [place] (two) Medical times Branch daily. amitriptyli 2020-0 Yes [id number] 25mg Take 1 [facility] ne 25 mg 3-26 tablet by ity of tablet 00:00: mouth at [place] [address] bedtime. Medical Branch metoprolol 2020-0 Yes [id number] 50mg Take 1 [facility] tartrate 50 3-26 tablet by ity of mg tablet 00:00: mouth 2 [place] (two) Medical times Branch daily. amitriptyli 2020-0 Yes [id number] 25mg Take 1 [facility] ne 25 mg 3-26 tablet by ity of tablet 00:00: mouth at [place] [address] bedtime. Medical Branch metoprolol 2020-0 Yes [id number] 50mg Take 1 [facility] tartrate 50 3-26 tablet by ity of mg tablet 00:00: mouth 2 [place] (two) Medical times Branch daily. amitriptyli 2020-0 Yes [id number] 25mg Take 1 [facility] ne 25 mg 3-26 tablet by ity of tablet 00:00: mouth at [place] [address] bedtime. Medical Branch metoprolol 2020-0 Yes [id number] 50mg Take 1 [facility] tartrate 50 3-26 tablet by ity of mg tablet 00:00: mouth 2 [place] (two) Medical times Branch daily. amitriptyli 2020-0 Yes [id number] 25mg Take 1 [facility] ne 25 mg 3-26 tablet by ity of tablet 00:00: mouth at [place] [address] bedtime. Medical Branch metoprolol 2020-0 Yes [id number] 50mg Take 1 [facility] tartrate 50 3-26 tablet by ity of mg tablet 00:00: mouth 2 [place] (two) Medical times Branch daily. amitriptyli 2020-0 Yes [id number] 25mg Take 1 [facility] ne 25 mg 3-26 tablet by ity of tablet 00:00: mouth at [place] [address] bedtime. Medical Branch metoprolol 2020-0 Yes [id number] 50mg Take 1 [facility] tartrate 50 3-26 tablet by ity of mg tablet 00:00: mouth 2 [place] (two) Medical times Branch daily. amitriptyli 2020-0 Yes [id number] 25mg Take 1 [facility] ne 25 mg 3-26 tablet by ity of tablet 00:00: mouth at [place] [address] bedtime. Medical Branch metoprolol 2020-0 Yes [id number] 50mg Take 1 [facility] tartrate 50 3-26 tablet by ity of mg tablet 00:00: mouth 2 [place] (two) Medical times Branch daily. amitriptyli 2020-0 Yes [id number] 25mg Take 1 [facility] ne 25 mg 3-26 tablet by ity of tablet 00:00: mouth at [place] [address] bedtime. Medical Branch metoprolol 2020-0 Yes [id number] 50mg Take 1 [facility] tartrate 50 3-26 tablet by ity of mg tablet 00:00: mouth 2 [place] (two) Medical times Branch daily. amitriptyli 2020-0 Yes [id number] 25mg Take 1 [facility] ne 25 mg 3-26 tablet by ity of tablet 00:00: mouth at [place] [address] bedtime. Medical Branch metoprolol 2020-0 Yes [id number] 50mg Take 1 [facility] tartrate 50 3-26 tablet by ity of mg tablet 00:00: mouth 2 [place] (two) Medical times Branch daily. amitriptyli 2020-0 Yes [id number] 25mg Take 1 [facility] ne 25 mg 3-26 tablet by ity of tablet 00:00: mouth at [place] [address] bedtime. Medical Branch metoprolol 2020-0 Yes [id number] 50mg Take 1 [facility] tartrate 50 3-26 tablet by ity of mg tablet 00:00: mouth 2 [place] (two) Medical times Branch daily. amitriptyli 2020-0 Yes [id number] 25mg Take 1 [facility] ne 25 mg 3-26 tablet by ity of tablet 00:00: mouth at [place] [address] bedtime. Medical Branch metoprolol 2020-0 Yes [id number] 50mg Take 1 [facility] tartrate 50 3-26 tablet by ity of mg tablet 00:00: mouth 2 [place] (two) Medical times Branch daily. amitriptyli 2020-0 Yes [id number] 25mg Take 1 [facility] ne 25 mg 3-26 tablet by ity of tablet 00:00: mouth at [place] [address] bedtime. Medical Branch metoprolol 2020-0 Yes [id number] 50mg Take 1 [facility] tartrate 50 3-26 tablet by ity of mg tablet 00:00: mouth 2 [place] (two) Medical times Branch daily. amitriptyli 2020-0 Yes [id number] 25mg Take 1 [facility] ne 25 mg 3-26 tablet by ity of tablet 00:00: mouth at [place] [address] bedtime. Medical Branch metoprolol 2020-0 Yes [id number] 50mg Take 1 [facility] tartrate 50 3-26 tablet by ity of mg tablet 00:00: mouth 2 [place] (two) Medical times Branch daily. amitriptyli 2020-0 Yes [id number] 25mg Take 1 [facility] ne 25 mg 3-26 tablet by ity of tablet 00:00: mouth at [place] [address] bedtime. Medical Branch metoprolol 2020-0 Yes [id number] 50mg Take 1 [facility] tartrate 50 3-26 tablet by ity of mg tablet 00:00: mouth 2 [place] (two) Medical times Branch daily. amitriptyli 2020-0 Yes [id number] 25mg Take 1 [facility] ne 25 mg 3-26 tablet by ity of tablet 00:00: mouth at [place] bedtime. Medical Branch metoprolol 2020-0 Yes [id number] 50mg Take 1 [facility] tartrate 50 3-26 tablet by ity of mg tablet 00:00: mouth 2 [place] (two) Medical times Branch daily. amitriptyli 2020-0 Yes [id number] 25mg Take 1 [facility] ne 25 mg 3-26 tablet by ity of tablet 00:00: mouth at [place] [address] bedtime. Medical Branch metoprolol 2020-0 Yes [id number] 50mg Take 1 [facility] tartrate 50 3-26 tablet by ity of mg tablet 00:00: mouth 2 [place] (two) Medical times Branch daily. amitriptyli 2020-0 Yes [id number] 25mg Take 1 [facility] ne 25 mg 3-26 tablet by ity of tablet 00:00: mouth at [place] [address] bedtime. Medical Branch metoprolol 2020-0 Yes [id number] 50mg Take 1 [facility] tartrate 50 3-26 tablet by ity of mg tablet 00:00: mouth 2 [place] (two) Medical times Branch daily. amitriptyli 2020-0 Yes [id number] 25mg Take 1 [facility] ne 25 mg 3-26 tablet by ity of tablet 00:00: mouth at [place] bedtime. Medical Branch metoprolol 2020-0 Yes [id number] 50mg Take 1 [facility] tartrate 50 3-26 tablet by ity of mg tablet 00:00: mouth 2 [place] (two) Medical times Branch daily. amitriptyli 2020-0 Yes [id number] 25mg Take 1 [facility] ne 25 mg 3-26 tablet by ity of tablet 00:00: mouth at [place] [address] bedtime. Medical Branch metoprolol 2020-0 Yes [id number] 50mg Take 1 [facility] tartrate 50 3-26 tablet by ity of mg tablet 00:00: mouth 2 [place] (two) Medical times Branch daily. budesonide- 2020-0 Yes [id number] 2{puff} Inhale 2 [facility] formoteroL 2-14 Puffs 2 ity of 160-4.5 00:00: (two) [place] mcg/actuati 00 times Medical on inhaler daily. Branch indomethaci 2020-0 Yes [id number] 50mg Take 1 [facility] n 50 mg 2-14 capsule by ity of capsule 00:00: mouth 3 [place] 00 (three) Medical times Branch daily with meals. albuterol 2020-0 Yes [id number] 2{puff} Inhale 2 [facility] 90 2-14 Puffs ity of mcg/actuati 00:00: every 6 [place] on inhaler 00 (six) Medical hours as Branch needed for Wheezing or Shortness of Breath. levETIRAcet 2020-0 Yes [id number] 500mg Take 1 [facility] am (KEPPRA) 2-14 tablet by ity of 500 mg 00:00: mouth 2 [place] tablet 00 (two) Medical times Branch daily. budesonide- 2020-0 Yes [id number] 2{puff} Inhale 2 [facility] formoteroL 2-14 Puffs 2 ity of 160-4.5 00:00: (two) [place] mcg/actuati 00 times Medical on inhaler daily. Branch indomethaci 2020-0 Yes [id number] 50mg Take 1 [facility] n 50 mg 2-14 capsule by ity of capsule 00:00: mouth 3 [place] 00 (three) Medical times Branch daily with meals. albuterol 2020-0 Yes [id number] 2{puff} Inhale 2 [facility] 90 2-14 Puffs ity of mcg/actuati 00:00: every 6 [place] on inhaler 00 (six) Medical hours as Branch needed for Wheezing or Shortness of Breath. levETIRAcet 2020-0 Yes [id number] 500mg Take 1 [facility] am (KEPPRA) 2-14 tablet by ity of 500 mg 00:00: mouth 2 [place] tablet 00 (two) Medical times Branch daily. budesonide- 2020-0 Yes [id number] 2{puff} Inhale 2 [facility] formoteroL 2-14 Puffs 2 ity of 160-4.5 00:00: (two) [place] mcg/actuati 00 times Medical on inhaler daily. Branch indomethaci 2020-0 Yes [id number] 50mg Take 1 [facility] n 50 mg 2-14 capsule by ity of capsule 00:00: mouth 3 [place] 00 (three) Medical times Branch daily with meals. albuterol 2020-0 Yes [id number] 2{puff} Inhale 2 [facility] 90 2-14 Puffs ity of mcg/actuati 00:00: every 6 [place] on inhaler 00 (six) Medical hours as Branch needed for Wheezing or Shortness of Breath. levETIRAcet 2020-0 Yes [id number] 500mg Take 1 [facility] am (KEPPRA) 2-14 tablet by ity of 500 mg 00:00: mouth 2 [place] tablet 00 (two) Medical times Branch daily. budesonide- 2020-0 Yes [id number] 2{puff} Inhale 2 [facility] formoteroL 2-14 Puffs 2 ity of 160-4.5 00:00: (two) [place] mcg/actuati 00 times Medical on inhaler daily. Branch indomethaci 2020-0 Yes [id number] 50mg Take 1 [facility] n 50 mg 2-14 capsule by ity of capsule 00:00: mouth 3 (three) Medical times Branch daily with meals. albuterol 2020-0 Yes [id number] 2{puff} Inhale 2 [facility] 90 2-14 Puffs ity of mcg/actuati 00:00: every 6 [place] on inhaler 00 (six) Medical hours as Branch needed for Wheezing or Shortness of Breath. levETIRAcet 2020-0 Yes [id number] 500mg Take 1 [facility] am (KEPPRA) 2-14 tablet by ity of 500 mg 00:00: mouth 2 [place] tablet 00 (two) Medical times Branch daily. budesonide- 2020-0 Yes [id number] 2{puff} Inhale 2 [facility] formoteroL 2-14 Puffs 2 ity of 160-4.5 00:00: (two) [place] mcg/actuati 00 times Medical on inhaler daily. Branch indomethaci 2020-0 Yes [id number] 50mg Take 1 [facility] n 50 mg 2-14 capsule by ity of capsule 00:00: mouth 3 [place] 00 (three) Medical times Branch daily with meals. albuterol 2020-0 Yes [id number] 2{puff} Inhale 2 [facility] 90 2-14 Puffs ity of mcg/actuati 00:00: every 6 [place] on inhaler 00 (six) Medical hours as Branch needed for Wheezing or Shortness of Breath. levETIRAcet 2020-0 Yes [id number] 500mg Take 1 [facility] am (KEPPRA) 2-14 tablet by ity of 500 mg 00:00: mouth 2 [place] tablet 00 (two) Medical times Branch daily. budesonide- 2020-0 Yes [id number] 2{puff} Inhale 2 [facility] formoteroL 2-14 Puffs 2 ity of 160-4.5 00:00: (two) [place] mcg/actuati 00 times Medical on inhaler daily. Branch indomethaci 2020-0 Yes [id number] 50mg Take 1 [facility] n 50 mg 2-14 capsule by ity of capsule 00:00: mouth 3 [place] 00 (three) Medical times Branch daily with meals. albuterol 2020-0 Yes [id number] 2{puff} Inhale 2 [facility] 90 2-14 Puffs ity of mcg/actuati 00:00: every 6 [place] on inhaler 00 (six) Medical hours as Branch needed for Wheezing or Shortness of Breath. levETIRAcet 2020-0 Yes [id number] 500mg Take 1 [facility] am (KEPPRA) 2-14 tablet by ity of 500 mg 00:00: mouth 2 [place] tablet 00 (two) Medical times Branch daily. budesonide- 2020-0 Yes [id number] 2{puff} Inhale 2 [facility] formoteroL 2-14 Puffs 2 ity of 160-4.5 00:00: (two) [place] mcg/actuati 00 times Medical on inhaler daily. Branch indomethaci 2020-0 Yes [id number] 50mg Take 1 [facility] n 50 mg 2-14 capsule by ity of capsule 00:00: mouth 3 [place] 00 (three) Medical times Branch daily with meals. albuterol 2020-0 Yes [id number] 2{puff} Inhale 2 [facility] 90 2-14 Puffs ity of mcg/actuati 00:00: every 6 [place] on inhaler 00 (six) Medical hours as Branch needed for Wheezing or Shortness of Breath. levETIRAcet 2020-0 Yes [id number] 500mg Take 1 [facility] am (KEPPRA) 2-14 tablet by ity of 500 mg 00:00: mouth 2 [place] tablet 00 (two) Medical times Branch daily. budesonide- 2020-0 Yes [id number] 2{puff} Inhale 2 [facility] formoteroL 2-14 Puffs 2 ity of 160-4.5 00:00: (two) [place] mcg/actuati 00 times Medical on inhaler daily. Branch indomethaci 2020-0 Yes [id number] 50mg Take 1 [facility] n 50 mg 2-14 capsule by ity of capsule 00:00: mouth 3 [place] 00 (three) Medical times Branch daily with meals. albuterol 2020-0 Yes [id number] 2{puff} Inhale 2 [facility] 90 2-14 Puffs ity of mcg/actuati 00:00: every 6 [place] on inhaler 00 (six) Medical hours as Branch needed for Wheezing or Shortness of Breath. levETIRAcet 2020-0 Yes [id number] 500mg Take 1 [facility] am (KEPPRA) 2-14 tablet by ity of 500 mg 00:00: mouth 2 [place] tablet 00 (two) Medical times Branch daily. budesonide- 2020-0 Yes [id number] 2{puff} Inhale 2 [facility] formoteroL 2-14 Puffs 2 ity of 160-4.5 00:00: (two) [place] mcg/actuati 00 times Medical on inhaler daily. Branch indomethaci 2020-0 Yes [id number] 50mg Take 1 [facility] n 50 mg 2-14 capsule by ity of capsule 00:00: mouth 3 [place] 00 (three) Medical times Branch daily with meals. albuterol 2020-0 Yes [id number] 2{puff} Inhale 2 [facility] 90 2-14 Puffs ity of mcg/actuati 00:00: every 6 [place] on inhaler 00 (six) Medical hours as Branch needed for Wheezing or Shortness of Breath. levETIRAcet 2020-0 Yes [id number] 500mg Take 1 [facility] am (KEPPRA) 2-14 tablet by ity of 500 mg 00:00: mouth 2 [place] tablet 00 (two) Medical times Branch daily. budesonide- 2020-0 Yes [id number] 2{puff} Inhale 2 [facility] formoteroL 2-14 Puffs 2 ity of 160-4.5 00:00: (two) [place] mcg/actuati 00 times Medical on inhaler daily. Branch indomethaci 2020-0 Yes [id number] 50mg Take 1 [facility] n 50 mg 2-14 capsule by ity of capsule 00:00: mouth 3 [place] 00 (three) Medical times Branch daily with meals. albuterol 2020-0 Yes [id number] 2{puff} Inhale 2 [facility] 90 2-14 Puffs ity of mcg/actuati 00:00: every 6 [place] on inhaler 00 (six) Medical hours as Branch needed for Wheezing or Shortness of Breath. levETIRAcet 2020-0 Yes [id number] 500mg Take 1 [facility] am (KEPPRA) 2-14 tablet by ity of 500 mg 00:00: mouth 2 [place] tablet 00 (two) Medical times Branch daily. budesonide- 2020-0 Yes [id number] 2{puff} Inhale 2 [facility] formoteroL 2-14 Puffs 2 ity of 160-4.5 00:00: (two) [place] mcg/actuati 00 times Medical on inhaler daily. Branch indomethaci 2020-0 Yes [id number] 50mg Take 1 [facility] n 50 mg 2-14 capsule by ity of capsule 00:00: mouth 3 (three) Medical times Branch daily with meals. albuterol 2020-0 Yes [id number] 2{puff} Inhale 2 [facility] 90 2-14 Puffs ity of mcg/actuati 00:00: every 6 [place] on inhaler 00 (six) Medical hours as Branch needed for Wheezing or Shortness of Breath. levETIRAcet 2020-0 Yes [id number] 500mg Take 1 [facility] am (KEPPRA) 2-14 tablet by ity of 500 mg 00:00: mouth 2 [place] tablet 00 (two) Medical times Branch daily. budesonide- 2020-0 Yes [id number] 2{puff} Inhale 2 [facility] formoteroL 2-14 Puffs 2 ity of 160-4.5 00:00: (two) [place] mcg/actuati 00 times Medical on inhaler daily. Branch indomethaci 2020-0 Yes [id number] 50mg Take 1 [facility] n 50 mg 2-14 capsule by ity of capsule 00:00: mouth 3 [place] 00 (three) Medical times Branch daily with meals. albuterol 2020-0 Yes [id number] 2{puff} Inhale 2 [facility] 90 2-14 Puffs ity of mcg/actuati 00:00: every 6 [place] on inhaler 00 (six) Medical hours as Branch needed for Wheezing or Shortness of Breath. levETIRAcet 2020-0 Yes [id number] 500mg Take 1 [facility] am (KEPPRA) 2-14 tablet by ity of 500 mg 00:00: mouth 2 [place] tablet 00 (two) Medical times Branch daily. budesonide- 2020-0 Yes [id number] 2{puff} Inhale 2 [facility] formoteroL 2-14 Puffs 2 ity of 160-4.5 00:00: (two) [place] mcg/actuati 00 times Medical on inhaler daily. Branch indomethaci 2020-0 Yes [id number] 50mg Take 1 [facility] n 50 mg 2-14 capsule by ity of capsule 00:00: mouth 3 [place] 00 (three) Medical times Branch daily with meals. albuterol 2020-0 Yes [id number] 2{puff} Inhale 2 [facility] 90 2-14 Puffs ity of mcg/actuati 00:00: every 6 [place] on inhaler 00 (six) Medical hours as Branch needed for Wheezing or Shortness of Breath. levETIRAcet 2020-0 Yes [id number] 500mg Take 1 [facility] am (KEPPRA) 2-14 tablet by ity of 500 mg 00:00: mouth 2 [place] tablet 00 (two) Medical times Branch daily. budesonide- 2020-0 Yes [id number] 2{puff} Inhale 2 [facility] formoteroL 2-14 Puffs 2 ity of 160-4.5 00:00: (two) [place] mcg/actuati 00 times Medical on inhaler daily. Branch indomethaci 2020-0 Yes [id number] 50mg Take 1 [facility] 50 mg 2-14 capsule by ity of capsule 00:00: mouth 3 [place] 00 (three) Medical times Branch daily with meals. albuterol 2020-0 Yes [id number] 2{puff} Inhale 2 [facility] 90 2-14 Puffs ity of mcg/actuati 00:00: every 6 [place] as on inhaler 00 (six) Medical hours as Branch needed for Wheezing or Shortness of Breath. levETIRAcet 2020-0 Yes [id number] 500mg Take 1 [facility] am (KEPPRA) 2-14 tablet by ity of 500 mg 00:00: mouth 2 [place] tablet 00 (two) Medical times Branch daily. budesonide- 2020-0 Yes [id number] 2{puff} Inhale 2 [facility] formoteroL 2-14 Puffs 2 ity of 160-4.5 00:00: (two) [place] mcg/actuati 00 times Medical on inhaler daily. Branch indomethaci 2020-0 Yes [id number] 50mg Take 1 [facility] n 50 mg 2-14 capsule by ity of capsule 00:00: mouth 3 [place] 00 (three) Medical times Branch daily with meals. albuterol 2020-0 Yes [id number] 2{puff} Inhale 2 [facility] 90 2-14 Puffs ity of mcg/actuati 00:00: every 6 [place] as on inhaler 00 (six) Medical hours as Branch needed for Wheezing or Shortness of Breath. levETIRAcet 2020-0 Yes [id number] 500mg Take 1 [facility] am (KEPPRA) 2-14 tablet by ity of 500 mg 00:00: mouth 2 [place] tablet 00 (two) Medical times Branch daily. budesonide- 2020-0 Yes [id number] 2{puff} Inhale 2 [facility] formoteroL 2-14 Puffs 2 ity of 160-4.5 00:00: (two) [place] mcg/actuati 00 times Medical on inhaler daily. Branch indomethaci 2020-0 Yes [id number] 50mg Take 1 [facility] n 50 mg 2-14 capsule by ity of capsule 00:00: mouth 3 [place] 00 (three) Medical times Branch daily with meals. albuterol 2020-0 Yes [id number] 2{puff} Inhale 2 [facility] 90 2-14 Puffs ity of mcg/actuati 00:00: every 6 [place] as on inhaler 00 (six) Medical hours as Branch needed for Wheezing or Shortness of Breath. levETIRAcet 2020-0 Yes [id number] 500mg Take 1 [facility] am (KEPPRA) 2-14 tablet by ity of 500 mg 00:00: mouth 2 [place] tablet 00 (two) Medical times Branch daily. budesonide- 2020-0 Yes [id number] 2{puff} Inhale 2 [facility] formoteroL 2-14 Puffs 2 ity of 160-4.5 00:00: (two) [place] mcg/actuati 00 times Medical on inhaler daily. Branch indomethaci 2020-0 Yes [id number] 50mg Take 1 [facility] n 50 mg 2-14 capsule by ity of capsule 00:00: mouth 3 (three) Medical times Branch daily with meals. albuterol 2020-0 Yes [id number] 2{puff} Inhale 2 [facility] 90 2-14 Puffs ity of mcg/actuati 00:00: every 6 [place] as on inhaler 00 (six) Medical hours as Branch needed for Wheezing or Shortness of Breath. levETIRAcet 2020-0 Yes [id number] 500mg Take 1 [facility] am (KEPPRA) 2-14 tablet by ity of 500 mg 00:00: mouth 2 [place] tablet 00 (two) Medical times Branch daily. budesonide- 2020-0 Yes [id number] 2{puff} Inhale 2 [facility] formoteroL 2-14 Puffs 2 ity of 160-4.5 00:00: (two) [place] mcg/actuati 00 times Medical on inhaler daily. Branch indomethaci 2020-0 Yes [id number] 50mg Take 1 [facility] n 50 mg 2-14 capsule by ity of capsule 00:00: mouth 3 (three) Medical times Branch daily with meals. albuterol 2020-0 Yes [id number] 2{puff} Inhale 2 [facility] 90 2-14 Puffs ity of mcg/actuati 00:00: every 6 [place] as on inhaler 00 (six) Medical hours as Branch needed for Wheezing or Shortness of Breath. levETIRAcet 2020-0 Yes [id number] 500mg Take 1 [facility] am (KEPPRA) 2-14 tablet by ity of 500 mg 00:00: mouth 2 [place] tablet 00 (two) Medical times Branch daily. budesonide- 2020-0 Yes [id number] 2{puff} Inhale 2 [facility] formoteroL 2-14 Puffs 2 ity of 160-4.5 00:00: (two) [place] mcg/actuati 00 times Medical on inhaler daily. Branch indomethaci 2020-0 Yes [id number] 50mg Take 1 [facility] n 50 mg 2-14 capsule by ity of capsule 00:00: mouth 3 [place] 00 (three) Medical times Branch daily with meals. albuterol 2020-0 Yes [id number] 2{puff} Inhale 2 [facility] 90 2-14 Puffs ity of mcg/actuati 00:00: every 6 [place] as on inhaler 00 (six) Medical hours as Branch needed for Wheezing or Shortness of Breath. levETIRAcet 2020-0 Yes [id number] 500mg Take 1 [facility] am (KEPPRA) 2-14 tablet by ity of 500 mg 00:00: mouth 2 [place] tablet 00 (two) Medical times Branch daily. budesonide- 2020-0 Yes [id number] 2{puff} Inhale 2 [facility] formoteroL 2-14 Puffs 2 ity of 160-4.5 00:00: (two) [place] mcg/actuati 00 times Medical on inhaler daily. Branch indomethaci 2020-0 Yes [id number] 50mg Take 1 [facility] n 50 mg 2-14 capsule by ity of capsule 00:00: mouth 3 [place] 00 (three) Medical times Branch daily with meals. albuterol 2020-0 Yes [id number] 2{puff} Inhale 2 [facility] 90 2-14 Puffs ity of mcg/actuati 00:00: every 6 [place] as on inhaler 00 (six) Medical hours as Branch needed for Wheezing or Shortness of Breath. levETIRAcet 2020-0 Yes [id number] 500mg Take 1 [facility] am (KEPPRA) 2-14 tablet by ity of 500 mg 00:00: mouth 2 [place] tablet 00 (two) Medical times Branch daily. budesonide- 2020-0 Yes [id number] 2{puff} Inhale 2 [facility] formoteroL 2-14 Puffs 2 ity of 160-4.5 00:00: (two) [place] mcg/actuati 00 times Medical on inhaler daily. Branch indomethaci 2020-0 Yes [id number] 50mg Take 1 [facility] n 50 mg 2-14 capsule by ity of capsule 00:00: mouth 3 [place] 00 (three) Medical times Branch daily with meals. albuterol 2020-0 Yes [id number] 2{puff} Inhale 2 [facility] 90 2-14 Puffs ity of mcg/actuati 00:00: every 6 [place] as on inhaler 00 (six) Medical hours as Branch needed for Wheezing or Shortness of Breath. levETIRAcet 2020-0 Yes [id number] 500mg Take 1 [facility] am (KEPPRA) 2-14 tablet by ity of 500 mg 00:00: mouth 2 [place] tablet 00 (two) Medical times Branch daily. budesonide- 2020-0 Yes [id number] 2{puff} Inhale 2 [facility] formoteroL 2-14 Puffs 2 ity of 160-4.5 00:00: (two) [place] mcg/actuati 00 times Medical on inhaler daily. Branch indomethaci 2020-0 Yes [id number] 50mg Take 1 [facility] n 50 mg 2-14 capsule by ity of capsule 00:00: mouth 3 [place] 00 (three) Medical times Branch daily with meals. albuterol 2020-0 Yes [id number] 2{puff} Inhale 2 [facility] 90 2-14 Puffs ity of mcg/actuati 00:00: every 6 [place] as on inhaler 00 (six) Medical hours as Branch needed for Wheezing or Shortness of Breath. levETIRAcet 2020-0 Yes [id number] 500mg Take 1 [facility] am (KEPPRA) 2-14 tablet by ity of 500 mg 00:00: mouth 2 [place] tablet 00 (two) Medical times Branch daily. budesonide- 2020-0 Yes [id number] 2{puff} Inhale 2 [facility] formoteroL 2-14 Puffs 2 ity of 160-4.5 00:00: (two) [place] mcg/actuati 00 times Medical on inhaler daily. Branch indomethaci 2020-0 Yes [id number] 50mg Take 1 [facility] n 50 mg 2-14 capsule by ity of capsule 00:00: mouth 3 [place] 00 (three) Medical times Branch daily with meals. albuterol 2020-0 Yes [id number] 2{puff} Inhale 2 [facility] 90 2-14 Puffs ity of mcg/actuati 00:00: every 6 [place] as on inhaler 00 (six) Medical hours as Branch needed for Wheezing or Shortness of Breath. levETIRAcet 2020-0 Yes [id number] 500mg Take 1 [facility] am (KEPPRA) 2-14 tablet by ity of 500 mg 00:00: mouth 2 [place] tablet 00 (two) Medical times Branch daily. budesonide- 2020-0 Yes [id number] 2{puff} Inhale 2 [facility] formoteroL 2-14 Puffs 2 ity of 160-4.5 00:00: (two) [place] mcg/actuati 00 times Medical on inhaler daily. Branch indomethaci 2020-0 Yes [id number] 50mg Take 1 [facility] n 50 mg 2-14 capsule by ity of capsule 00:00: mouth 3 [place] (three) Medical times Branch daily with meals. albuterol 2020-0 Yes [id number] 2{puff} Inhale 2 [facility] 90 2-14 Puffs ity of mcg/actuati 00:00: every 6 [place] as on inhaler 00 (six) Medical hours as Branch needed for Wheezing or Shortness of Breath. levETIRAcet 2020-0 Yes [id number] 500mg Take 1 [facility] am (KEPPRA) 2-14 tablet by ity of 500 mg 00:00: mouth 2 [place] tablet 00 (two) Medical times Branch daily. budesonide- 2020-0 Yes [id number] 2{puff} Inhale 2 [facility] formoteroL 2-14 Puffs 2 ity of 160-4.5 00:00: (two) [place] mcg/actuati 00 times Medical on inhaler daily. Branch indomethaci 2020-0 Yes [id number] 50mg Take 1 [facility] n 50 mg 2-14 capsule by ity of capsule 00:00: mouth 3 (three) Medical times Branch daily with meals. albuterol 2020-0 Yes [id number] 2{puff} Inhale 2 [facility] 90 2-14 Puffs ity of mcg/actuati 00:00: every 6 [place] as on inhaler 00 (six) Medical hours as Branch needed for Wheezing or Shortness of Breath. levETIRAcet 2020-0 Yes [id number] 500mg Take 1 [facility] am (KEPPRA) 2-14 tablet by ity of 500 mg 00:00: mouth 2 [place] tablet 00 (two) Medical times Branch daily. budesonide- 2020-0 Yes [id number] 2{puff} Inhale 2 [facility] formoteroL 2-14 Puffs 2 ity of 160-4.5 00:00: (two) [place] mcg/actuati 00 times Medical on inhaler daily. Branch indomethaci 2020-0 Yes [id number] 50mg Take 1 [facility] n 50 mg 2-14 capsule by ity of capsule 00:00: mouth 3 [place] 00 (three) Medical times Branch daily with meals. albuterol 2020-0 Yes [id number] 2{puff} Inhale 2 [facility] 90 2-14 Puffs ity of mcg/actuati 00:00: every 6 [place] as on inhaler 00 (six) Medical hours as Branch needed for Wheezing or Shortness of Breath. levETIRAcet 2020-0 Yes [id number] 500mg Take 1 [facility] am (KEPPRA) 2-14 tablet by ity of 500 mg 00:00: mouth 2 [place] tablet 00 (two) Medical times Branch daily. budesonide- 2020-0 Yes [id number] 2{puff} Inhale 2 [facility] formoteroL 2-14 Puffs 2 ity of 160-4.5 00:00: (two) [place] mcg/actuati 00 times Medical on inhaler daily. Branch indomethaci 2020-0 Yes [id number] 50mg Take 1 [facility] n 50 mg 2-14 capsule by ity of capsule 00:00: mouth 3 [place] 00 (three) Medical times Branch daily with meals. albuterol 2020-0 Yes [id number] 2{puff} Inhale 2 [facility] 90 2-14 Puffs ity of mcg/actuati 00:00: every 6 [place] as on inhaler 00 (six) Medical hours as Branch needed for Wheezing or Shortness of Breath. levETIRAcet 2020-0 Yes [id number] 500mg Take 1 [facility] am (KEPPRA) 2-14 tablet by ity of 500 mg 00:00: mouth 2 [place] tablet 00 (two) Medical times Branch daily. budesonide- 2020-0 Yes [id number] 2{puff} Inhale 2 [facility] formoteroL 2-14 Puffs 2 ity of 160-4.5 00:00: (two) [place] mcg/actuati 00 times Medical on inhaler daily. Branch indomethaci 2020-0 Yes [id number] 50mg Take 1 [facility] n 50 mg 2-14 capsule by ity of capsule 00:00: mouth 3 [place] 00 (three) Medical times Branch daily with meals. albuterol 2020-0 Yes [id number] 2{puff} Inhale 2 [facility] 90 2-14 Puffs ity of mcg/actuati 00:00: every 6 [place] as on inhaler 00 (six) Medical hours as Branch needed for Wheezing or Shortness of Breath. levETIRAcet 2020-0 Yes [id number] 500mg Take 1 [facility] am (KEPPRA) 2-14 tablet by ity of 500 mg 00:00: mouth 2 [place] tablet 00 (two) Medical times Branch daily. budesonide- 2020-0 Yes [id number] 2{puff} Inhale 2 [facility] formoteroL 2-14 Puffs 2 ity of 160-4.5 00:00: (two) [place] mcg/actuati 00 times Medical on inhaler daily. Branch indomethaci 2020-0 Yes [id number] 50mg Take 1 [facility] n 50 mg 2-14 capsule by ity of capsule 00:00: mouth 3 [place] 00 (three) Medical times Branch daily with meals. albuterol 2020-0 Yes [id number] 2{puff} Inhale 2 [facility] 90 2-14 Puffs ity of mcg/actuati 00:00: every 6 [place] as on inhaler 00 (six) Medical hours as Branch needed for Wheezing or Shortness of Breath. levETIRAcet 2020-0 Yes [id number] 500mg Take 1 [facility] am (KEPPRA) 2-14 tablet by ity of 500 mg 00:00: mouth 2 [place] tablet 00 (two) Medical times Branch daily. budesonide- 2020-0 Yes [id number] 2{puff} Inhale 2 [facility] formoteroL 2-14 Puffs 2 ity of 160-4.5 00:00: (two) [place] mcg/actuati 00 times Medical on inhaler daily. Branch indomethaci 2020-0 Yes [id number] 50mg Take 1 [facility] n 50 mg 2-14 capsule by ity of capsule 00:00: mouth 3 [place] 00 (three) Medical times Branch daily with meals. albuterol 2020-0 Yes [id number] 2{puff} Inhale 2 [facility] 90 2-14 Puffs ity of mcg/actuati 00:00: every 6 [place] as on inhaler 00 (six) Medical hours as Branch needed for Wheezing or Shortness of Breath. levETIRAcet 2020-0 Yes [id number] 500mg Take 1 [facility] am (KEPPRA) 2-14 tablet by ity of 500 mg 00:00: mouth 2 [place] tablet 00 (two) Medical times Branch daily. budesonide- 2020-0 Yes [id number] 2{puff} Inhale 2 [facility] formoteroL 2-14 Puffs 2 ity of 160-4.5 00:00: (two) [place] mcg/actuati 00 times Medical on inhaler daily. Branch indomethaci 2020-0 Yes [id number] 50mg Take 1 [facility] n 50 mg 2-14 capsule by ity of capsule 00:00: mouth 3 [place] (three) Medical times Branch daily with meals. albuterol 2020-0 Yes [id number] 2{puff} Inhale 2 [facility] 90 2-14 Puffs ity of mcg/actuati 00:00: every 6 [place] as on inhaler 00 (six) Medical hours as Branch needed for Wheezing or Shortness of Breath. levETIRAcet 2020-0 Yes [id number] 500mg Take 1 [facility] am (KEPPRA) 2-14 tablet by ity of 500 mg 00:00: mouth 2 [place] tablet 00 (two) Medical times Branch daily. budesonide- 2020-0 Yes [id number] 2{puff} Inhale 2 [facility] formoteroL 2-14 Puffs 2 ity of 160-4.5 00:00: (two) [place] mcg/actuati 00 times Medical on inhaler daily. Branch indomethaci 2020-0 Yes [id number] 50mg Take 1 [facility] n 50 mg 2-14 capsule by ity of capsule 00:00: mouth 3 [place] (three) Medical times Branch daily with meals. albuterol 2020-0 Yes [id number] 2{puff} Inhale 2 [facility] 90 2-14 Puffs ity of mcg/actuati 00:00: every 6 [place] as on inhaler 00 (six) Medical hours as Branch needed for Wheezing or Shortness of Breath. levETIRAcet 2020-0 Yes [id number] 500mg Take 1 [facility] am (KEPPRA) 2-14 tablet by ity of 500 mg 00:00: mouth 2 [place] tablet 00 (two) Medical times Branch daily. topiramate 2020-0 Yes [facility] 25 mg 1-28 ity of tablet 00:00: [place] [facility] topiramate 2020-0 Yes [facility] 25 mg 1-28 ity of tablet 00:00: [place] [facility] topiramate 2020-0 Yes [facility] 25 mg 1-28 ity of tablet 00:00: [place] [facility] Branch topiramate 2020-0 Yes Univers 25 mg 1-28 ity of tablet 00:00: [place] [facility] topiramate 2020-0 Yes [facility] 25 mg 1-28 ity of tablet 00:00: [place] 00 Medical Branch topiramate 2020-0 Yes [facility] 25 mg 1-28 ity of tablet 00:00: [place] [facility] topiramate 2020-0 Yes [facility] 25 mg 1-28 ity of tablet 00:00: [place] [address] Medical Branch topiramate 2020-0 Yes Univers 25 mg 1-28 ity of tablet 00:00: [place] [address] Medical Branch topiramate 2020-0 Yes Univers 25 mg 1-28 ity of tablet 00:00: [address] topiramate 2020-0 Yes Univers 25 mg 1-28 ity of tablet 00:00: [place] [address] Medical [place] topiramate 2020-0 Yes [facility] 25 mg 1-28 ity of tablet 00:00: [place] [address] Medical Branch topiramate 2020-0 Yes [facility] 25 mg 1-28 ity of tablet 00:00: [place] [address] Medical Branch topiramate 2020-0 Yes [facility] 25 mg 1-28 ity of tablet 00:00: [address] Branch topiramate 2020-0 Yes Univers 25 mg 1-28 ity of tablet 00:00: [address] topiramate 2020-0 Yes Univers 25 mg 1-28 ity of tablet 00:00: [address] topiramate 2020-0 Yes [facility] 25 mg 1-28 ity of tablet 00:00: [address] topiramate 2020-0 Yes Univers 25 mg 1-28 ity of tablet 00:00: [address] topiramate 2020-0 Yes [facility] 25 mg 1-28 ity of tablet 00:00: [address] topiramate 2020-0 Yes Univers 25 mg 1-28 ity of tablet 00:00: [address] topiramate 2020-0 Yes Univers 25 mg 1-28 ity of tablet 00:00: [place] [address] Medical [place] topiramate 2020-0 Yes [facility] 25 mg 1-28 ity of tablet 00:00: [place] [address] Medical Branch topiramate 2020-0 Yes [facility] 25 mg 1-28 ity of tablet 00:00: [address] topiramate 2020-0 Yes Univers 25 mg 1-28 ity of tablet 00:00: [address] Branch topiramate 2020-0 Yes Univers 25 mg 1-28 ity of tablet 00:00: [address] Branch topiramate 2020-0 Yes Univers 25 mg 1-28 ity of tablet 00:00: [place] [address] Medical [place] topiramate 2020-0 Yes Univers 25 mg 1-28 ity of tablet 00:00: [place] 00 Medical Branch topiramate 2020-0 Yes [facility] 25 mg 1-28 ity of tablet 00:00: [place] 00 Medical Branch topiramate 2020-0 Yes [facility] 25 mg 1-28 ity of tablet 00:00: [place] 00 Medical Branch topiramate 2020-0 Yes Univers 25 mg 1-28 ity of tablet 00:00: [place] [address] Medical Branch topiramate 2020-0 Yes Univers 25 mg 1-28 ity of tablet 00:00: [place] [address] Medical Branch topiramate 2020-0 Yes Univers 25 mg 1-28 ity of tablet 00:00: [place] [address] Medical Branch topiramate 2020-0 Yes Univers 25 mg 1-28 ity of tablet 00:00: [place] [address] Medical Branch carBAMazepi 2020-0 Yes Univer s ne 200 mg 1-20 ity of tablet 00:00: [place] [address] Medical Branch carBAMazepi 2020-0 Yes Univer s ne 200 mg 1-20 ity of tablet 00:00: [place] [address] Medical Branch carBAMazepi 2020-0 Yes Univer s ne 200 mg 1-20 ity of tablet 00:00: [place] [address] Medical Branch carBAMazepi 2020-0 Yes Univer s ne 200 mg 1-20 ity of tablet 00:00: [place] [address] Medical Branch carBAMazepi 2020-0 Yes Univer s ne 200 mg 1-20 ity of tablet 00:00: [place] [address] Medical Branch carBAMazepi 2020-0 Yes Univer s ne 200 mg 1-20 ity of tablet 00:00: [place] [address] Medical Branch carBAMazepi 2020-0 Yes Univer s ne 200 mg 1-20 ity of tablet 00:00: [place] [address] Medical Branch carBAMazepi 2020-0 Yes Univer s ne 200 mg 1-20 ity of tablet 00:00: [place] [address] Medical Branch carBAMazepi 2020-0 Yes Univer s ne 200 mg 1-20 ity of tablet 00:00: [place] [address] Medical Branch carBAMazepi 2020-0 Yes Univer s ne 200 mg 1-20 ity of tablet 00:00: [place] [address] Medical Branch carBAMazepi 2020-0 Yes Univer s ne 200 mg 1-20 ity of tablet 00:00: [place] [address] Medical Branch carBAMazepi 2020-0 Yes Univer s ne 200 mg 1-20 ity of tablet 00:00: [place] [address] Medical Branch carBAMazepi 2020-0 Yes Univer s ne 200 mg 1-20 ity of tablet 00:00: [place] 00 Medical Branch carBAMazepi 2020-0 Yes Univer s ne 200 mg 1-20 ity of tablet 00:00: [place] 00 Medical Branch carBAMazepi 2020-0 Yes Univer s ne 200 mg 1-20 ity of tablet 00:00: [place] 00 Medical Branch carBAMazepi 2020-0 Yes Univer s ne 200 mg 1-20 ity of tablet 00:00: [place] 00 Medical Branch carBAMazepi 2020-0 Yes Univer s ne 200 mg 1-20 ity of tablet 00:00: [place] [address] Medical Branch carBAMazepi 2020-0 Yes Univer s ne 200 mg 1-20 ity of tablet 00:00: [place] [address] Medical Branch carBAMazepi 2020-0 Yes Univer s ne 200 mg 1-20 ity of tablet 00:00: [place] [address] Medical Branch carBAMazepi 2020-0 Yes Univer s ne 200 mg 1-20 ity of tablet 00:00: [place] [address] Medical Branch carBAMazepi 2020-0 Yes Univer s ne 200 mg 1-20 ity of tablet 00:00: [place] [address] Medical Branch carBAMazepi 2020-0 Yes Univer s ne 200 mg 1-20 ity of tablet 00:00: [place] [address] Medical Branch carBAMazepi 2020-0 Yes Univer s ne 200 mg 1-20 ity of tablet 00:00: [place] [address] Medical Branch carBAMazepi 2020-0 Yes Univer s ne 200 mg 1-20 ity of tablet 00:00: [place] [address] Medical Branch carBAMazepi 2020-0 Yes Univer s ne 200 mg 1-20 ity of tablet 00:00: [place] [address] Medical Branch carBAMazepi 2020-0 Yes Univer s ne 200 mg 1-20 ity of tablet 00:00: [place] [address] Medical Branch carBAMazepi 2020-0 Yes Univer s ne 200 mg 1-20 ity of tablet 00:00: [place] [address] Medical Branch carBAMazepi 2020-0 Yes Univer s ne 200 mg 1-20 ity of tablet 00:00: [place] [address] Medical Branch carBAMazepi 2020-0 Yes Univer s ne 200 mg 1-20 ity of tablet 00:00: [place] [address] Medical Branch carBAMazepi 2020-0 Yes Univer s ne 200 mg 1-20 ity of tablet 00:00: [place] [address] Medical Branch carBAMazepi 2020-0 Yes Univer s ne 200 mg 1-20 ity of tablet 00:00: [place] 00 [facility] Branch carBAMazepi 2020-0 Yes Univer s ne 200 mg 1-20 ity of tablet 00:00: [place] 00 [facility] Branch [place] No [place] [...] Immunizations Ordered Filled Immunization Date Status Comments [facility] e Immunization Name Name SARS-COV-2 COVID-19 2022-04-12 Completed Unive rsity of VACCINE - (MODERNA) 00:00:00 [facility] SARS-COV-2 COVID-19 2022-04-12 Completed Unive rsity of VACCINE - (MODERNA) 00:00:00 [facility] SARS-COV-2 COVID-19 2022-04-12 Completed Unive rsity of VACCINE - (MODERNA) 00:00:00 [facility] SARS-COV-2 COVID-19 2022-04-12 Completed Unive rsity of VACCINE - (MODERNA) 00:00:00 [facility] SARS-COV-2 COVID-19 2022-04-12 Completed Unive rsity of VACCINE - (MODERNA) 00:00:00 [facility] SARS-COV-2 COVID-19 2022-04-12 Completed Unive rsity of VACCINE - (MODERNA) 00:00:00 [facility] SARS-COV-2 COVID-19 2022-04-12 Completed Unive rsity of VACCINE - (MODERNA) 00:00:00 [facility] SARS-COV-2 COVID-19 2022-04-12 Completed Unive rsity of VACCINE - (MODERNA) 00:00:00 [facility] SARS-COV-2 COVID-19 2022-04-12 Completed Unive rsity of VACCINE - (MODERNA) 00:00:00 [facility] Branch SARS-COV-2 COVID-19 2022-04-12 Completed Unive rsity of VACCINE - (MODERNA) 00:00:00 [facility] SARS-COV-2 COVID-19 2022-04-12 Completed Unive rsity of VACCINE - (MODERNA) 00:00:00 [facility] Branch SARS-COV-2 COVID-19 2022-04-12 Completed Unive rsity of VACCINE - (MODERNA) 00:00:00 [facility] SARS-COV-2 COVID-19 2022-04-12 Completed Unive rsity of VACCINE - (MODERNA) 00:00:00 [facility] SARS-COV-2 COVID-19 2022-04-12 Completed Unive rsity of VACCINE - (MODERNA) 00:00:00 [facility] SARS-COV-2 COVID-19 2022-04-12 Completed Unive rsity of VACCINE - (MODERNA) 00:00:00 [facility] SARS-COV-2 COVID-19 2022-04-12 Completed Unive rsity of VACCINE - (MODERNA) 00:00:00 [facility] SARS-COV-2 COVID-19 2022-04-12 Completed Unive rsity of VACCINE - (MODERNA) 00:00:00 [facility] SARS-COV-2 COVID-19 2021-10-12 Completed Unive rsity of MODERNA 12+ YRS 00:00:00 [place] [facility] VACCINE Branch SARS-COV-2 COVID-19 2021-10-12 Completed Unive rsity of MODERNA 12+ YRS 00:00:00 [place] [facility] VACCINE Branch SARS-COV-2 COVID-19 2021-10-12 Completed Unive rsity of MODERNA 12+ YRS 00:00:00 [place] [facility] ical VACCINE Branch SARS-COV-2 COVID-19 2021-10-12 Completed Unive rsity of MODERNA 12+ YRS 00:00:00 [place] [facility] ical VACCINE Branch SARS-COV-2 COVID-19 2021-10-12 Completed Unive rsity of MODERNA 12+ YRS 00:00:00 [place] [facility] VACCINE Branch SARS-COV-2 COVID-19 2021-10-12 Completed Unive rsity of MODERNA 12+ YRS 00:00:00 [place] [facility] VACCINE Branch SARS-COV-2 COVID-19 2021-10-12 Completed Unive rsity of MODERNA 12+ YRS 00:00:00 [place] [facility] VACCINE Branch SARS-COV-2 COVID-19 2021-10-12 Completed Unive rsity of MODERNA 12+ YRS 00:00:00 [place] [facility] VACCINE Branch SARS-COV-2 COVID-19 2021-10-12 Completed Unive rsity of MODERNA 12+ YRS 00:00:00 [place] [facility] ical VACCINE Branch SARS-COV-2 COVID-19 2021-10-12 Completed Unive rsity of MODERNA 12+ YRS 00:00:00 [place] [facility] ical VACCINE Branch SARS-COV-2 COVID-19 2021-10-12 Completed Unive rsity of MODERNA 12+ YRS 00:00:00 [place] [facility] ical VACCINE Branch SARS-COV-2 COVID-19 2021-10-12 Completed Unive rsity of MODERNA 12+ YRS 00:00:00 [place] [facility] ical VACCINE Branch SARS-COV-2 COVID-19 2021-10-12 Completed Unive rsity of MODERNA 12+ YRS 00:00:00 [place] [facility] ical VACCINE Branch SARS-COV-2 COVID-19 2021-10-12 Completed Unive rsity of MODERNA 12+ YRS 00:00:00 [place] [facility] ical VACCINE Branch SARS-COV-2 COVID-19 2021-10-12 Completed Unive rsity of MODERNA 12+ YRS 00:00:00 [place] [facility] ical VACCINE Branch SARS-COV-2 COVID-19 2021-10-12 Completed Unive rsity of MODERNA 12+ YRS 00:00:00 [place] [facility] ical VACCINE Branch SARS-COV-2 COVID-19 2021-10-12 Completed Unive rsity of MODERNA 12+ YRS 00:00:00 [place] [facility] ical VACCINE Branch SARS-COV-2 COVID-19 2021-10-12 Completed Unive rsity of MODERNA 12+ YRS 00:00:00 [place] [facility] VACCINE Branch SARS-COV-2 COVID-19 2021-10-12 Completed Unive rsity of MODERNA VACCINE 00:00:00 [place] [facility] Branch SARS-COV-2 COVID-19 2021-10-12 Completed Unive rsity of MODERNA VACCINE 00:00:00 [place] [facility] Branch SARS-COV-2 COVID-19 2021-10-12 Completed Unive rsity of MODERNA VACCINE 00:00:00 [place] [facility] Branch SARS-COV-2 COVID-19 2021-10-12 Completed Unive rsity of MODERNA VACCINE 00:00:00 [place] [facility] Branch SARS-COV-2 COVID-19 2021-10-12 Completed Unive rsity of MODERNA VACCINE 00:00:00 [place] [facility] Branch SARS-COV-2 COVID-19 2021-10-12 Completed Unive rsity of MODERNA 12+ YRS 00:00:00 [place] [facility] ical VACCINE Branch SARS-COV-2 COVID-19 2021-10-12 Completed Unive rsity of MODERNA 12+ YRS 00:00:00 [place] [facility] ical VACCINE Branch SARS-COV-2 COVID-19 2021-10-12 Completed Unive rsity of MODERNA 12+ YRS 00:00:00 [place] [facility] SARS-COV-2 COVID-19 2021-10-12 Completed Unive rsity of [facility]ER[facility] 12+ YRS 00:00:00 [place] [facility] SARS-COV-2 COVID-19 2021-10-12 Completed Unive rsity of MODERNA 12+ YRS 00:00:00 [place] [facility] SARS-COV-2 COVID-19 2021-10-12 Completed Unive rsity of MODERNA 12+ YRS 00:00:00 [place] [facility] SARS-COV-2 COVID-19 2021-10-12 Completed Unive rsity of MODERNA 12+ YRS 00:00:00 [place] [facility] SARS-COV-2 COVID-19 2021-10-12 Completed Unive rsity of MODERNA 12+ YRS 00:00:00 [place] [facility] SARS-COV-2 COVID-19 2021-10-12 Completed Unive rsity of MODER[facility] 12+ YRS 00:00:00 [place] [facility] SARS-COV-2 COVID-19 2021-09-14 Completed Unive rsity of MODERNA 12+ YRS 00:00:00 [place] [facility] SARS-COV-2 COVID-19 2021-09-14 Completed Unive rsity of MODERNA 12+ YRS 00:00:00 [place] [facility] SARS-COV-2 COVID-19 2021-09-14 Completed Unive rsity of MODERNA 12+ YRS 00:00:00 [place] [facility] SARS-COV-2 COVID-19 2021-09-14 Completed Unive rsity of MODERNA 12+ YRS 00:00:00 [place] [facility] SARS-COV-2 COVID-19 2021-09-14 Completed Unive rsity of MODERNA 12+ YRS 00:00:00 [place] [facility] SARS-COV-2 COVID-19 2021-09-14 Completed Unive rsity of MODER[facility] 12+ YRS 00:00:00 [place] [facility] SARS-COV-2 COVID-19 2021-09-14 Completed Unive rsity of MODER[facility] 12+ YRS 00:00:00 [place] [facility] SARS-COV-2 COVID-19 2021-09-14 Completed Unive rsity of MODERNA 12+ YRS 00:00:00 [place] [facility] SARS-COV-2 COVID-19 2021-09-14 Completed Unive rsity of MODERNA 12+ YRS 00:00:00 [place] [facility] SARS-COV-2 COVID-19 2021-09-14 Completed Unive rsity of MODERNA 12+ YRS 00:00:00 [place] [facility] SARS-COV-2 COVID-19 2021-09-14 Completed Unive rsity of MODER[facility] 12+ YRS 00:00:00 [place] [facility] SARS-COV-2 COVID-19 2021-09-14 Completed Unive rsity of MODERNA 12+ YRS 00:00:00 [place] [facility] SARS-COV-2 COVID-19 2021-09-14 Completed Unive rsity of MODERNA 12+ YRS 00:00:00 [place] [facility] SARS-COV-2 COVID-19 2021-09-14 Completed Unive rsity of MODERNA 12+ YRS 00:00:00 [place] [facility] SARS-COV-2 COVID-19 2021-09-14 Completed Unive rsity of MODERNA 12+ YRS 00:00:00 [place] [facility] SARS-COV-2 COVID-19 2021-09-14 Completed Unive rsity of MODERNA 12+ YRS 00:00:00 [place] [facility] SARS-COV-2 COVID-19 2021-09-14 Completed Unive rsity of MODER[facility] 12+ YRS 00:00:00 [place] [facility] SARS-COV-2 COVID-19 2021-09-14 Completed Unive rsity of MODER[facility] 12+ YRS 00:00:00 [place] [facility] SARS-COV-2 COVID-19 2021-09-14 Completed [facility] of [facility] VACCINE 00:00:00 [place] [facility] SARS-COV-2 COVID-19 2021-09-14 Completed [facility] of [facility] VACCINE 00:00:00 [place] [facility] SARS-COV-2 COVID-19 2021-09-14 Completed [facility] of [facility] VACCINE 00:00:00 [place] [facility] SARS-COV-2 COVID-19 2021-09-14 Completed [facility]ive rs[facility] of [facility] VACCINE 00:00:00 [place] [facility] SARS-COV-2 COVID-19 2021-09-14 Completed [facility]ive rs[facility] of [facility] VACCINE 00:00:00 [place] [facility] SARS-COV-2 COVID-19 2021-09-14 Completed Unive rsity of MODERNA 12+ YRS 00:00:00 [place] [facility] SARS-COV-2 COVID-19 2021-09-14 Completed Unive rsity of MODER[facility] 12+ YRS 00:00:00 [place] [facility] SARS-COV-2 COVID-19 2021-09-14 Completed Unive rsity of MODER[facility] 12+ YRS 00:00:00 [place] [facility] SARS-COV-2 COVID-19 2021-09-14 Completed Unive rsity of MODERNA 12+ YRS 00:00:00 [place] [facility] SARS-COV-2 COVID-19 2021-09-14 Completed Unive rsity of MODER[facility] 12+ YRS 00:00:00 [facility] VACCINE Branch SARS-COV-2 COVID-19 2021-09-14 Completed Unive rsity of MODER[facility] 12+ YRS 00:00:00 [facility] ica VACCINE Branch SARS-COV-2 COVID-19 2021-09-14 Completed Unive rsity of MODER[facility] 12+ YRS 00:00:00 [facility] VACCINE Branch SARS-COV-2 COVID-19 2021-09-14 Completed Unive rsity of MODER[facility] 12+ YRS 00:00:00 [facility] VACCINE Branch SARS-COV-2 COVID-19 2021-09-14 Completed Unive rsity of MODER[facility] 12+ YRS 00:00:00 [facility] VACCINE Branch Influenza Virus 2018-12-16 Completed Universit y of Vaccine Quad IM 3+ 00:00:00 [facility] Influenza Virus 2018-12-16 Completed Universit y of Vaccine [facility] IM 3+ 00:00:00 [facility] Influenza Virus 2018-12-16 Completed Universit y of [facility] IM 3+ 00:00:00 [facility] Influenza Virus 2018-12-16 Completed Universit y of [facility] IM 3+ 00:00:00 [facility] Influenza Virus 2018-12-16 Completed Universit y of [facility] IM 3+ 00:00:00 [facility] Influenza Virus 2018-12-16 Completed Universit y of [facility]ine [facility] IM 3+ 00:00:00 [facility] Influenza Virus 2018-12-16 Completed Universit y of [facility] IM 3+ 00:00:00 [facility] Influenza Virus 2018-12-16 Completed Universit y of [facility] IM 3+ 00:00:00 [facility] Influenza Virus 2018-12-16 Completed Universit y of [facility] IM 3+ 00:00:00 [facility] Influenza Virus 2018-12-16 Completed Universit y of Vaccine [facility] IM 3+ 00:00:00 [facility] Influenza Virus 2018-12-16 Completed Universit y of Vaccine [facility] IM 3+ 00:00:00 [facility] Influenza Virus 2018-12-16 Completed Universit y of Vaccine [facility] IM 3+ 00:00:00 [facility] Influenza Virus 2018-12-16 Completed Universit y of Vaccine [facility] IM 3+ 00:00:00 [facility] Influenza Virus 2018-12-16 Completed Universit y of [facility] IM 3+ 00:00:00 [facility] Influenza Virus 2018-12-16 Completed Universit y of [facility] IM 3+ 00:00:00 [facility] Influenza Virus 2018-12-16 Completed Universit y of [facility] IM 3+ 00:00:00 [facility] Influenza Virus 2018-12-16 Completed Universit y of Vacc[facility] IM 3+ 00:00:00 [facility] Influenza Virus 2018-12-16 Completed Universit y of Vaccine [facility] IM 3+ 00:00:00 [facility] Influenza Virus 2018-12-16 Completed Universit y of Vaccine [facility] IM 3+ 00:00:00 [facility] Influenza Virus 2018-12-16 Completed Universit y of [facility] IM 3+ 00:00:00 [facility] Influenza Virus 2018-12-16 Completed Universit y of Vacc[facility] IM 3+ 00:00:00 [facility] Influenza Virus 2018-12-16 Completed Universit y of Vacc[facility] IM 3+ 00:00:00 [facility] Influenza Virus 2018-12-16 Completed Universit y of Vaccine [facility] IM 3+ 00:00:00 [facility] Influenza Virus 2018-12-16 Completed Universit y of Vaccine [facility] IM 3+ 00:00:00 [facility] Influenza Virus 2018-12-16 Completed Universit y of Vacc[facility] IM 3+ 00:00:00 [facility] Influenza Virus 2018-12-16 Completed Universit y of Vacc[facility] IM 3+ 00:00:00 [facility] Influenza Virus 2018-12-16 Completed Universit y of [facility] IM 3+ 00:00:00 [facility] Influenza Virus 2018-12-16 Completed Universit y of Vacc[facility] IM 3+ 00:00:00 [facility] Influenza Virus 2018-12-16 Completed Universit y of Vacc[facility] IM 3+ 00:00:00 [facility] Influenza Virus 2018-12-16 Completed Universit y of Vaccine [facility] IM 3+ 00:00:00 [facility] Influenza Virus 2018-12-16 Completed Universit y of [facility] IM 3+ 00:00:00 [facility] Influenza Virus 2018-12-16 Completed Universit y of Vaccine [facility] IM 3+ 00:00:00 [place] [facility] Vital Signs Vital Name Observation Time Observation Value Comments Source Systolic blood 2022-12-29 14:32:00 116 mm[Hg] Univer [facility]ity of [facility] Diastolic blood 2022-12-29 14:32:00 80 mm[Hg] Unive rsity of [facility] Heart rate 2022-12-29 14:32:00 82 /min [facility] Body temperature 2022-12-29 14:32:00 36.72 Sury Univ ers[facility] Respiratory rate 2022-12-29 14:32:00 18 /min [facility] Body height 2022-12-29 14:32:00 162.6 cm [facility] Body weight 2022-12-29 14:32:00 109.226 kg [facility] BMI 2022-12-29 14:32:00 41.33 kg/m2 [facility] Systolic blood 2022-11-15 22:35:00 115 mm[Hg] [facility] of [facility] Diastolic blood 2022-11-15 22:35:00 77 mm[Hg] [facility]ive rsity of pressure [facility] Heart rate 2022-11-15 22:35:00 74 /min [facility] Body temperature 2022-11-15 22:35:00 36.67 Sury [facility] Respiratory rate 2022-11-15 22:35:00 18 /min [facility] Body height 2022-11-15 22:35:00 162.6 cm [facility] Body weight 2022-11-15 22:35:00 111.041 kg [facility] BMI 2022-11-15 22:35:00 42.02 kg/m2 [facility] Systolic blood 2022-10-31 21:55:00 120 mm[Hg] Univer [facility]ity of [facility] Diastolic blood 2022-10-31 21:55:00 82 mm[Hg] Unive rsity of [facility] Heart rate 2022-10-31 21:55:00 90 /min [facility] Respiratory rate 2022-10-31 21:55:00 18 /min Univ ersity of [facility] Body height 2022-10-31 21:55:00 162.6 cm Universi ty of [facility] Body weight 2022-10-31 21:55:00 111.131 kg [facility] [place] [facility] [place] BMI 2022-10-31 21:55:00 42.05 kg/m2 [facility]i ty of [facility] Systolic blood 2022-10-18 15:58:00 110 mm[Hg] Univer sity of pressure [facility] Diastolic blood 2022-10-18 15:58:00 75 mm[Hg] Unive rsity of pressure [facility] Heart rate 2022-10-18 15:58:00 92 /min Universi ty of [facility] Body temperature 2022-10-18 15:58:00 36.89 Sury Univ ers[facility] of [facility] Respiratory rate 2022-10-18 15:58:00 16 /min Univ ersity of [facility] Body height 2022-10-18 15:58:00 162.6 cm [facility] [place] [facility] [place] Body weight 2022-10-18 15:58:00 110.678 kg [facility] [place] [facility] [place] BMI 2022-10-18 15:58:00 41.88 kg/m2 Universi ty of [facility] Oxygen saturation in 2022-10-18 15:58:00 97 /min [facility] Arterial blood by [facility] Pulse oximetry Branch HEIGHT 2021-12-17 23:33:00 162.6 cm WEIGHT 2021-12-17 21:14:00 104.781 kg HEIGHT 2021-12-17 23:33:00 162.6 cm WEIGHT 2021-12-17 21:14:00 104.781 kg Systolic blood 2021-12-12 22:09:00 119 mm[Hg] Univer sity of pressure [facility] Diastolic blood 2021-12-12 22:09:00 76 mm[Hg] Unive rsity of pressure [facility] Heart rate 2021-12-12 22:09:00 106 /min [facility]i ty of [facility] Body temperature 2021-12-12 22:09:00 36.83 Sury Univ ersity of [facility] Body height 2021-12-12 22:09:00 162.6 cm Universi ty of [facility] Body weight 2021-12-12 22:09:00 105.96 kg [facility] BMI 2021-12-12 22:09:00 40.10 kg/m2 [facility] Oxygen saturation in 2021-12-12 22:09:00 98 /min University Arterial blood by [facility] Pulse oximetry Branch BP Diastolic 2020-04-13 00:00:00 83 mm[Hg] [facility] Height 2020-04-13 00:00:00 64 [in_i] [facility] BMI (Body Mass 2020-04-13 00:00:00 36.5 kg/m2 [facility] Group BP Systolic 2020-04-13 00:00:00 118 mm[Hg] [facility] Body Weight 2020-04-13 00:00:00 212.8 [lb_av] [facility] Heart rate 2021-12-18 12:35:00 79 /min [facility] Body temperature 2021-12-18 12:35:00 36.56 Sury [facility] Respiratory rate 2021-12-18 12:35:00 18 /min [facility] Oxygen saturation in 2021-12-18 12:35:00 96 /min [facility] Arterial blood by Medical Ce nter Pulse oximetry Systolic blood 2021-12-18 12:35:00 120 mm[Hg] [facility] Diastolic blood 2021-12-18 12:35:00 90 mm[Hg] [facility] Body height 2021-12-17 23:33:00 162.6 cm [facility] Body weight 2021-12-17 21:14:00 104.781 kg [facility] BMI 2021-12-17 21:14:00 39.65 kg/m2 [facility] Procedures Procedure Date / Time Performing Clinician Source Performed US PELVIS COMPLETE WITH 2023-02-02 16:35:18 Jose Angel Peralta [facility] TRANSVAGINAL [facility] POCT TEST 2022-12-29 15:22:00 Dulce Weeks [facility] PATIENT FINANCIAL 2022-12-29 14:22:26 Doctor Dipak, [facility] POLICY [facility] GC & CHLAMYDIA AMPLIFIED 2022-11-15 22:38:00 Jose Angel Peralta [facility] ASSAY [facility] TRICHOMONAS AMPLIFIED 2022-11-15 22:38:00 Jose Angel Peralta [facility] ASSAY [facility] [place] CONSENT FOR CONTRACEPTION 2022-11-15 06:01:00 Doctor Dipak [facility] [place] US PELVIS COMPLETE WITH 2022-10-31 00:48:02 Jose Angel Peralta [facility] TRANSVAGINAL [facility] NOTICE OF PRIVACY 2022-10-31 00:03:57 Doctor Dipak, [facility] PRACTICES [facility] [place] CONSENT/REFUSAL FOR 2022-10-31 00:03:31 Doctor Dipak, [facility] DIAGNOSIS AND TREATMENT [facility] [place] ASSIGNMENT OF BENEFITS 2022-10-31 00:03:08 Doctor Dipak, [facility] Name [facility] [place] POCT TEST 2022-10-31 00:00:00 Jose Angel Peralta [facility] INSURANCE CORRESPONDENCE 2022-10-25 06:01:00 Doctor Dipak [facility] Name [facility] CBC WITH DIFF 2022-10-18 17:18:00 Jose Angel Peralta [facility] ASSIGNMENT OF BENEFITS 2022-10-18 15:41:13 Doctor Dipak, [facility] Name [facility] [place] URINALYSIS W/ REFLEX 2021-12-18 10:11:00 Marylu Tiwari [facility] URINE CULTURE Center BLOOD CULTURE 2021-12-18 03:39:00 Chad Dickey [facility] BASIC METABOLIC PANEL 2021-12-18 03:39:00 Chad Dickey [facility] CBC W/PLT COUNT & AUTO 2021-12-18 03:39:00 Chad Dickey [facility] DIFFERENTIAL Center CBC W/PLT COUNT & AUTO 2021-12-18 03:39:00 Chad Dickey [facility] DIFFERENTIAL Center BLOOD CULTURE 2021-12-17 23:54:00 Chad Dickey [facility] EKG-SCANNED 2021-12-17 00:00:00 ProviderJasbir [facility] Plan of Care Planned Activity Planned Date Details Comments Source Future Scheduled 2023-06-[address] [facility] Test 00:00:00 (Season Ended) [code Medical Center = INFLUENZA VACCINE (Season Ended)] Future Scheduled 2023-06-[address] [facility] Test 00:00:00 (Season Ended) [code Medical Center = INFLUENZA VACCINE (Season Ended)] Future Scheduled 2023-06-[address] [facility] Test 00:00:00 (Season Ended) [code Medical Center = INFLUENZA VACCINE (Season Ended)] Future Scheduled 2022-10-[address] [facility] Test 00:00:00 (12+) [code = Medical Center DEPRESSION SCREENING (12+)] Future Scheduled 2022-10-[address] [facility] Test 00:00:00 (12+) [code = Medical Center DEPRESSION SCREENING (12+)] Future Scheduled 2022-10-[address] [facility] Test 00:00:00 (12+) [code = Medical Center DEPRESSION SCREENING (12+)] Future Scheduled 2022-06-[address] [facility] Test 00:00:00 (#1) [code = Medical Center INFLUENZA VACCINE (#1)] Future Scheduled 2022-03-12 COVID-19 VACCINE ([address] [facility] Test 00:00:00 - Booster for Medical Center Moderna series) [code = COVID-19 VACCINE (3 - Booster for Moderna series)] Future Scheduled 2021-12-07 COVID-19 VACCINE ([address] [facility] Test 00:00:00 - Booster for Medical Center Moderna series) [code = COVID-19 VACCINE (3 - Booster for Moderna series)] Future Scheduled 2021-12-07 COVID-19 VACCINE ([address] [facility] Test 00:00:00 - Booster for Medical Center Moderna series) [code = COVID-19 VACCINE (3 - Booster for Moderna series)] Future Scheduled 2021-12-07 COVID-19 VACCINE ([address] [facility] Test 00:00:00 - Booster for Medical Center Moderna series) [code = COVID-19 VACCINE (3 - Booster for Moderna series)] Future Scheduled 2021-10-[address] [facility] Test 00:00:00 (12+) [code = [facility] DEPRESSION SCREENING (12+)] Diagnostic Test 2020-04-13 CBC w/ auto diff [facility] Pending 00:00:00 [code = CBC w/ auto Group diff] Diagnostic Test 2020-04-13 CMP, serum or plasma [facility] Pending 00:00:00 [code = CMP, serum Group or plasma] Diagnostic Test 2020-04-13 lipid panel, serum [facility] Pending 00:00:00 [code = lipid panel, Group serum] Diagnostic Test 2020-04-13 HBsAg (hepatitis B [facility] Pending 00:00:00 surface Ag), serum [...] CT + NG + TV, DNA, [facility] Pending 00:00:00 urine/swab [code = Group CT + NG + TV, DNA, urine/swab] Future Scheduled [address] [facility] Test 00:00:00 malignant neoplasm Medical C enter of cervix (procedure) [code = 169745920] Future Scheduled [address] [facility] Test 00:00:00 malignant neoplasm Medical C enter of cervix (procedure) [code = 499400180] Future Scheduled [address] [facility] Test 00:00:00 malignant neoplasm Medical C enter of cervix (procedure) [code = 359949346] Future Scheduled [address] [facility] Test 00:00:00 malignant neoplasm Medical C enter of cervix (procedure) [code = 404336483] Future Scheduled [address] [facility] Test 00:00:00 (procedure) [code = [facility] [id number]] Future Scheduled [address] [facility] Test 00:00:00 (procedure) [code = [facility] 95588613] Future Scheduled [address] [facility] Test 00:00:00 (procedure) [code = [facility] 90294504] Future Scheduled [address] [facility] Test 00:00:00 (procedure) [code = [facility] 73037709] Future Scheduled 2009 DTAP/TDAP/TD [facility] Test 00:00:00 VACCINES (1 - Tdap) Medical Center [code = DTAP/TDAP/TD VACCINES (1 - Tdap)] Future Scheduled 2009 DTAP/TDAP/TD [facility] Test 00:00:00 VACCINES (1 - Tdap) Medical Center [code = DTAP/TDAP/TD VACCINES (1 - Tdap)] Future Scheduled 2009 DTAP/TDAP/TD [facility] Test 00:00:00 VACCINES (1 - Tdap) Medical Center [code = DTAP/TDAP/TD VACCINES (1 - Tdap)] Future Scheduled 2009 DTAP/TDAP/TD [facility] Test 00:00:00 VACCINES (1 - Tdap) Medical Center [code = DTAP/TDAP/TD VACCINES (1 - Tdap)] Future Scheduled [address] [facility] Test 00:00:00 SCREENING [code = Medical Ce nter HEPATITIS C SCREENING] Future Scheduled [address] [facility] Test 00:00:00 SCREENING [code = Medical Ce nter HEPATITIS C SCREENING] Future Scheduled [address] [facility] Test 00:00:00 SCREENING [code = Medical Ce nter HEPATITIS C SCREENING] Future Scheduled [address] [facility] Test 00:00:00 SCREENING [code = Medical Ce nter HEPATITIS C SCREENING] Future Scheduled [address] [facility] Test 00:00:00 Counseling [facility] Medical Cente r Screening (12+) [code = Tobacco Cessation Counseling and Screening (12+)] Future Scheduled [address] [facility] Test 00:00:00 [facility]ing [facility] Medical Cente r Screening (12+) [code = Tobacco Cessation Counseling and Screening (12+)] Future Scheduled [address] [facility] Test 00:00:00 [facility]ing [facility] Medical Cente r Screening (12+) [code = Tobacco Cessation Counseling and Screening (12+)] Future Scheduled [address] [facility] Test 00:00:00 Counseling and Medical Cente r Screening (12+) [code = Tobacco Cessation Counseling and Screening (12+)] Encounters Start End Encounter Admission Attending Care Care Encounter Source Date/Time Date/Time Type Type Clinicians Facility Department ID 2021-08-30 Emergency [facility] [id number] Univers 00:49:50 ity [facility] 2023-02-02 2023-02-02 [facility] B [id number] Univers 10:57:29 23:59:00 ADEBAYOJUANY JOSE ANGEL [facility] 2023-02-02 2023-02-02 [facility] [id number] Univers 10:57:29 23:59:00 Encounter Jose Angel WHALEY [id number] ity [facility] [id number] [facility] [id number] [facility] [address] [place] 2023-01-08 2023-01-08 Telephone [facility] [id number] Univers 00:00:00 00:00:00 Dulce WHALEY [id number] ity [facility] [id number] [facility] PROFESSIO [phone] Oh dical NAL [address] [facility] 2023-01-02 2023-01-02 [facility] [id number] Univers 00:00:00 00:00:00 Secure Msg Zelda Hernandez JOVANA [id number] ity [facility] [id number] [id number] [place]ical NAL [address] [facility] 2023-01-02 2023-01-02 [facility]phone [facility] [id number] Univers 00:00:00 00:00:00 Dulce SCRUGGS [id number] i ty [place] [facility] [id number] [facility] [id number] [address] 2022-12-29 2022-12-29 Outpatient [facility] [id number] Univers 09:00:00 09:23:08 DULCE angulo of [facility] 2022-12-29 2022-12-29 Office [facility] [id number] Univers 09:00:00 09:23:08 Visit Dulce WHALEY [id number] ity [id number] [phone] Oh dical NAL [address] [place] [address] 2022-12-29 2022-12-29 Orders Doctor AMBREEN [id number] Univers 00:00:00 00:00:00 Only Unassigned, DONY [id number] ity of [place] [facility] [id number] [place] as [id number] [address] 2022-12-29 2022-12-29 Letter [facility] [id number] Univers 00:00:00 00:00:00 (Out) Dulce WHALEY [id number] [id number] [id number] Oh dical NAL [address] [place] [address] 2022-12-28 2022-12-28 Telephone [facility] [id number] Univers 00:00:00 00:00:00 Jose Angel SCRUGGS [id number] it y [id number] [id number] [facility] [address] [place] 2022-12-28 2022-12-28 [facility] [id number] Univers 00:00:00 00:00:00 Jose Angel SCRUGGS [id number] [id number] [id number] [facility] [address] [place] 2022-11-15 2022-11-15 Office [facility] [id number] Univers 15:00:00 17:23:28 Visit Jose Angel SCRUGGS [id number] it [id number] [id number] [address] 2022-11-15 2022-11-15 Outpatient R JOSE ANGEL PERALTA [facility] [id number] Univers 15:00:00 17:23:28 JOSE ANGEL PERALTA [facility] 2022-11-15 2022-11-15 Orders Doctor AMBREEN [id number] Univers 00:00:00 00:00:00 Only Unassigned, DONY [id number] ity of [place] [facility] [id number] [place] [phone] [facility] 009 Branch 2022-11-08 2022-11-08 Pre Visit DENNIS Mayen 1.2.097.600 [id number] Univers 00:00:00 00:00:00 Outreach Khloe SIMMS 350.1.13.10 i ty of [place] [phone] [facility] [address] 2022-10-31 2022-10-31 [facility] 1.2.840.114 [id number] Univers 16:30:00 16:30:00 Visit Jose Angel SHEBA 350.1.13.10 it y of [place] [id number] [facility] 134 [address] 2022-10-31 2022-10-31 Outpatient R JOSE ANGEL PERALTA [facility] B [id number] Univers 16:30:00 16:13:04 JOSE ANGEL PERALTA ity [facility] 2022-10-30 2022-10-30 Outpatient R JOSE ANGEL PERALTA [facility] B [id number] Univers 18:05:11 23:59:00 JOSE ANGEL PERALTA ity [facility] 2022-10-30 2022-10-30 [facility] 1.2.840.114 [id number] Univers 18:05:11 23:59:00 Encounter Jose Angel [place] 350.1.13.10 ity of [place] 4.2.7.2.686 [facility] [id number] [facility] [address] [place] 2022-10-27 2022-10-27 Telemedici [facility] 1.2.8 40.114 [id number] Univers 10:30:00 10:30:00 ne Visit Cyrus Shultz FIELD EDUCATION COORDINATOR 350.1.13.10 ity of [facility] 4.2.7.2.686 [place] as MATERNAL [phone] Med ical & CHILD 107 [facility] 2022-10-27 2022-10-27 Outpatient CYRUS PANG [facility] [id number] Univers 10:30:00 10:23:21 ity of [facility] 2022-10-25 2022-10-25 Telephone [facility] 1.2.840.11 [id number] Univers 00:00:00 00:00:00 Jose Angel SCRUGGS 350.1.13.10 it y of W[facility]'S 4.2.7.2.686 [facility] [id number] [facility] 134 [address] 2022-10-25 2022-10-25 Orders Doctor AMBREEN 1.2.840.114 [id number] Univers 00:00:00 00:00:00 Only Unassigned, DONY 350.1.13.10 ity of [place] [facility] 4.2.7.2.686 [place]an as [phone] [facility] 009 [address] 2022-10-20 2022-10-20 [facility]phone [facility] 1.2.840.11 [id number] Univers 00:00:00 00:00:00 Jose Angel [place] 350.1.13.10 it y [place] [id number] [address] 2022-10-18 2022-10-18 Comparative Sociology Professor Valerie Guaman Lab Main [facility] 1.2.8 40.114 [id number] Univers 11:30:00 11:45:00 Visit Jose Angel Peralta 350.1.13. 10 ity [facility] [place] [phone] Oh dical [address] 2022-10-18 2022-10-18 Outpatient R JOSE ANGEL PERALTA [facility] B [id number] Univers 10:00:00 10:16:19 JOSE ANGEL PERALTA ity [facility] 2022-10-18 2022-10-18 Office Yaquelin [facility] 1.2.840.114 [id number] Univers 10:00:00 10:16:19 Visit Jose Angel SCRUGG[place] 350.1.13.10 it y [place] [id number] [address] 2022-10-18 2022-10-18 Orders Doctor CROOK 1.2.840.114 [id number] Univers 00:00:00 00:00:00 Only Unassigned, DONY 350.1.13.10 ity of [place] [facility] 4.2.7.2.686 [place] as [phone] [place] [address] [address] 2022 2022 Outpatient DICLEMENTE_ GAURAV NOLASCO [address] [place] 00:00:00 00:00:00 NENITA [facility] 2021-12-22 2021-12-22 Outpatient ISHAN MARION [facility] [id number] Univers 08:30:00 08:30:00 ity of [facility] 2021-12-22 2021-12-22 Outpatient Wendy BENNETT ISHAN [facility] [id number] Univers 08:30:00 08:30:00 ity [facility] 2021-12-21 2021-12-21 Outpatient ISHAN MARION [facility] [id number] Univers 15:00:00 15:00:00 ity [facility] 2021-12-17 2021-12-18 Inpatient BETHANY TIWARI, [facility] Neurology [id number] SLE 21:02:00 15:18:00 MARYLU 2021-12-17 2021-12-18 Hospital Brett Ortega [facility] [id number] [facility] 21:02:00 15:18:00 Encounter Edgardo Jacobs [facility] 2021-12-18 2021-12-18 Travel [facility] [id number] [facility] 00:00:00 00:00:00 [facility] 2021-12-14 2021-12-14 Telephone [facility] 1.2.212.557 [id number] Univers 00:00:00 00:00:00 Nila HEALTH 350.1.13.10 it y of [place] 4.2.7.2.686 Elan as BARRON?BLEA [phone] [address] OFFICE [facility] 2021-12-13 2021-12-13 Telephone [facility] 1.2.295.020 [id number] Univers 00:00:00 00:00:00 Nila HEALTH 350.1.13.10 it y of [place] 4.2.7.2.686 [place]an as BARRON?BLEA [id number] [address] OFFICE [facility] 2021-12-13 2021-12-13 Telephone [facility] 1.2.213.980 [id number] Univers 00:00:00 00:00:00 Nila HEALTH 350.1.13.10 it y of [place] 4.2.7.2.686 [place]an as BARRON?BLEA [phone] [address] OFFICE [facility] 2021-12-13 2021-12-13 Telephone [facility] 1.2.575.114 [id number] Univers 00:00:00 00:00:00 Nila [facility] 350.1.13.10 it y [facility] 4.2.7.2.686 [place] as BARRON?BLEA [phone] [facility] [address] [facility] OFFICE [facility] 2021-12-12 2021-12-12 Outpatient R AMANDA [facility] [id number] Univers 16:00:00 16:51:41 NILA rigo [facility] 2021-12-12 2021-12-12 Office [facility] 1.2.840.114 [id number] Univers 16:00:00 16:51:41 Visit Nila [facility] 350.1.13.10 it y of [facility] 4.2.7.2.686 [place] as BARRON?BLEA [id number] [address] OFFICE [facility] 2021-12-12 2021-12-12 Out[facility] [id number] Univers 16:00:00 16:51:41 [facility] 2021-12-12 2021-12-12 Letter [facility] 1.2.840.114 [id number] Univers 00:00:00 00:00:00 (Out) Nila [facility] 350.1.13.10 it y of [place] 4.2.7.2.686 [place] as BARRON?BLEA [phone] [address] OFFICE [facility] 2021-10-12 2021-10-12 Outpatient R LYDIA [facility] [id number] Univers 09:10:00 09:10:00 ZELDA angulo [facility] 2021-10-12 2021-10-12 Outpatient R JOHN [facility] [id number] Univers 09:00:00 09:00:00 AIDAN angulo [facility] 2021-10-12 2021-10-12 Imm/Inj Nurse, Adc Pob Immunization [facility] 1.2.840.114 [id number] Univers 09:00:00 09:00:00 Visit Aidan [facility] 350.1.13 .10 ity of [place] [id number] Oh dic[address] 2021-10-12 2021-10-12 Outpatient R JOHN [facility] [id number] Univers 08:00:00 08:00:00 AIDAN angulo [facility] 2021-09-14 2021-09-14 Outpatient R JOHN [facility] [id number] Univers 09:30:00 09:30:00 AIDAN angulo [facility] 2021-09-14 2021-09-14 Imm/Inj Nurse, Adc Pob Immunization [facility] 1.2.840.114 [id number] Univers 09:01:10 09:01:24 Visit Aidan Reynosocelestina WHALEY 350.1.13 .10 ity of [facility] 4.2.[place].2.[place] [id number] [facility] [address] [facility] 2021-08-20 2021-08-20 Refill Bakari [facility] 1.2.840.114 [id number] Univers 00:00:00 00:00:00 GisellCooper Green [facility] 350.1.13.10 it y of [facility] 4.2.7.2.686 [place] as BARRON?BLEA [phone] [facility] [address] [facility] OFFICE [facility] 2021-07-29 2021-07-29 Urgent Gisell Villegas [facility] 1.2.840.114 [id number] Univers 10:14:01 10:34:01 Care Unknown, [facility] 350.1.13.10 ity of [place] 4.2.7.2.686 [place]an as Barron?Blea [phone] [facility] 370 [facility] Office [facility] 2021-07-29 2021-07-29 Outpatient R UNKNOWN, [facility] [id number] Univers 10:20:00 10:20:00 ATTENDING ity [facility] 2021-07-21 2021-07-21 Emergency Vanessa Eduarod [facility] 1.2.840.114 [id number] Univers 10:06:00 11:06:00 Josefina Whaley 350.1.13.10 i ty of [place].2.686 [place] [phone] [facility] [address] [place] 2021-07-19 2021-07-19 Orders Doctor AMBREEN 1.2.840.114 [id number] Univers 00:00:00 00:00:00 Only Unassigned, DONY 350.1.13.10 ity of [place] [facility] 4.2.7.2.686 Elan as [phone] [address] 2021-07-05 2021-07-05 Marietta [facility] 1.2.840.114 [id number] Univers 00:00:00 00:00:00 Zelda Crump Jovana 350.1.13.10 ity of [place] [phone] [facility] 231 [facility] 2021-06-02 2021-06-02 Laboratory Lab, [facility] Fam Pob I [facility] 1.2. 840.114 [id number] Univers 20:27:39 20:47:39 Only Ebrahim, [facility] 350.1.13.10 ity of [place] 4.2.7.2.686 [place] as Professio [phone] [facility] [address] [place] Office [address] One 2021-06-02 2021-06-02 Laboratory Lab, [facility] 1.2.840.114 [id number] 20:27:39 20:47:39 Only Fam Pob I Health 350.1.13.10 [place] 4.2.7.2.686 Professio [id number] [place] [address] Office Building [facility] 2021-06-02 2021-06-02 Outpatient R BANDAR [facility] [id number] Univers 20:20:00 20:20:00 RANIA ity of [facility] 2021-06-02 2021-06-02 Outpatient DICLEMENTE_ MEHOP [facility] [address] [place] 11:05:00 11:05:00 NENITA Zaidi da [facility] Outre h Program 2021-06-02 2021-06-02 Orders Doctor AMBREEN 1.2.840.114 [id number] Univers 00:00:00 00:00:00 Only Unassigned, DONY 350.1.13.10 ity of [place] [facility] 4.2.7.2.686 [place] as [id number] [address] 2021-06-02 2021-06-02 [facility] 1.2.840.114 [id number] Univers 00:00:00 00:00:00 Zelda Whaley 350.1.13.10 [place]sufy [place] [phone] Oh dical [facility] [address] [facility] 2021-06-02 2021-06-02 Orders Doctor AMBREEN 1.2.840.114 [id number] 00:00:00 00:00:00 Only Unassigned, DONY 350.1.13.10 [place] [facility] 4.2.7.2.686 [id number] [facility] 2021-06-02 2021-06-02 Telephone [facility] 1.2.840.114 [id number] 00:00:00 00:00:00 Zelda Whaley 350.1.13.10 [place] 4.2.7.2.686 Professio [phone] [address] 2021-01-18 2021-01-18 Patient [facility] 1.2.840.114 [id number] Univers 00:00:00 00:00:00 Outreach Aidan PRIMARY 350.1.13.[address] [facility] 4.2.7.2.[place] [id number] Oh dic[address] 2021-01-18 2021-01-18 Patient John [facility] 1.2.840.114 [id number] 00:00:00 00:00:00 Outreach Aidan PRIMARY 350.1.13.10 Julio C CARE 4.2.7.2.686 PAVILLION [id number] 388 2020-09-15 2020-09-15 Outpatient Teresita PHILLIPS [facility] [address] [place] 02:40:00 02:40:00 1118 Medical Group 2020-05-24 2020-05-24 Outpatient Wendy FREEMAN [facility] [id number] [facility] 08:40:00 08:40:00 ZELDA angulo [facility] 2020-04-14 2020-04-14 Outpatient Teresita PHILLIPS [address]61 [place] 05:40:00 05:40:00 0619 Medical Group 2020-04-13 2020-04-13 Outpatient Teresita PHILLIPS [facility] [id number] [place] 07:38:00 07:38:00 0616 Medical Group 2020-04-13 2020-04-13 Maia [facility] [place] - [id number] M atagor 00:00:00 00:00:00 Alex C[facility]ica brina STEINER: [address] [facility] [address], [place] [address] , Ph. [phone] 2020-01-23 2020-03-12 [facility]ici [facility] 1.2.840.114 [id number] [facility] 11:11:01 16:10:25 ne Visit Matt Jovana 350.1.13.10 ity of [place]2.[place] [phone] [address] 2020-01-23 2020-03-12 [facility] 1.2.840.114 [id number] 11:11:01 16:10:25 ne Visit Matt Whaley 350.1.13.10 [place] 4.2.7.2.686 Professio [phone] [address] 2020-02-23 2020-02-26 Outpatient BRIAN SW MED 0118 [facility] 14:38:00 13:00:00 CYRUS 2020-02-22 2020-02-23 Inpatient U APOLINAR, [facility] 0117 [facility] 19:57:00 13:45:00 CAM 2020-01-30 2020-01-30 [facility]medici [facility] 1.2.840.114 [id number] [facility] 08:10:50 15:55:51 ne Visit Matt Jovana 350.1.13.10 ity of [place].2.[place] [phone] Oh dic[address] 2020-01-30 2020-01-30 Out[facility] [id number] [facility] 10:45:00 10:45:00 MATT itrigo [facility] 2020-01-27 2020-01-27 Telephone [facility] 1.2.840.114 [id number] Univers 00:00:00 00:00:00 Matt Whaley 350.1.13.10 i ty of [place] [phone] [facility] 134 [facility] 2020-01-27 2020-01-27 Telephone [facility] 1.2.840.114 [id number] Univers 00:00:00 00:00:00 Matt Jovana 350.1.13.10 i ty of [place].2.[place] [phone] [facility] 134 [facility] 2020-01-23 2020-01-23 [facility] [id number] Univers 13:15:00 13:15:00 MATTRigo angulo [facility] 2020-01-23 2020-01-23 Telephone [facility] 1.2.840.114 [id number] Univers 00:00:00 00:00:00 Matt Whaley 350.1.13.10 i ty of [place] 4[place].2.[place] [phone] [facility] 134 [facility] 2020-01-22 2020-01-22 Telemedici [facility] 1.2.840.114 [id number] Univers 08:40:14 12:05:25 ne Visit Zelda Whaley 350.1.13.10 ity of [place].2.[place] [phone] [facility] 231 [facility] 2020-01-22 2020-01-22 Out[facility] 1026 [id number] Univers 10:40:00 10:40:00 ZELDA angulo [facility] 2019-12-12 2019-12-12 Telephone [facility] 1.2.840.114 [id number] Univers 00:00:00 00:00:00 Zelda Whaley 350.1.13.10 ity of [place] [phone] Oh dical nal 231 [facility] 2019-12-06 2019-12-06 Refill Doctor [facility] 1.2.840.114 [id number] Univers 00:00:00 00:00:00 Unassigned, Jovana 350.1.13.10 ity of [place] 4.2.7.2.[place] [phone] Oh dical nal 044 [facility] 2019-12-06 2019-12-06 Refill Freeman, [facility] 1.2.840.114 [id number] Univers 00:00:00 00:00:00 Zeldasalma Whaley 350.1.13.10 ity of [place].2.[place] [phone] Oh dical nal 231 [facility] 2019-10-14 2019-10-14 Outpatient [facility] [address] [place] 12:28:00 12:28:00 0615 Medical Group Results Test Description Test Time Test Comments Results Result Comments Source POCT TEST 2022-12-29 15:22:00 Test Item Value Reference Range Interpretation Comme nts POCT PREG (test code = 1605) Negative On board controls acceptable with C Line (test code = 3574) Yes POCT PREG LOT # (test code = 3575) POCT PREG TEST DATE (test code = 3576) [id number] 15:22:00 Test Item Value Reference Range Interpretation Comments POCT PREG (test code = 1605) Negative On board controls acceptable with C Yes Line (test code = 3574) POCT PREG LOT # (test code = 3575) POCT PREG TEST DATE (test code = 3576) [facility] [id number] 15:22:00 Test Item Value Reference Range Interpretation Comments POCT PREG (test code = 1605) Negative On board controls acceptable with C Yes Line (test code = 3574) POCT PREG LOT # (test code = 3575) POCT PREG TEST DATE (test code = 3576) [facility] [id number] 22:27:00 Test Item Value Reference Range Interpretation Comments POCT PREG (test code = 1605) Negative On board controls acceptable with C Yes Line (test code = 3574) POCT PREG LOT # (test code = 3575) POCT PREG TEST DATE (test code = 3576) [facility] [id number] 22:27:00 Test Item Value Reference Range Interpretation Comments POCT PREG (test code = 1605) Negative On board controls acceptable with C Yes Line (test code = 3574) POCT PREG LOT # (test code = 3575) POCT PREG TEST DATE (test code = 3576) [facility] [id number] 17:37:52 Test Item Value Reference Range Interpretation Comments WBC (test code = See_Comment [Automated 2716-2) message] The sy stem which generated this result transmitted reference range : 4.30 - 11.10 10*3/?L. The reference range was not used to interpret this result as normal/abnormal . RBC (test code = See_Comment [Automated 538-8) message] The sy stem which generated this result transmitted reference range : 3.93 - 5.25 10*6/?L. The reference range was not used to interpret this result as normal/abnormal . HGB (test code = 11.9 g/dL 11.6-15.0 718-7) HCT (test code = 37.7 % 35.7-45.2 4544-3) MCV (test code = 90.2 fL 80.6-95.5 787-2) MCH (test code = 28.5 pg 25.9-32.8 785-6) MCHC (test code = 31.6 g/dL 31.6-35.1 786-4) RDW-SD (test code = 45.0 fL 39.0-49.9 12256-1) RDW-CV (test code = 13.5 % 12.0-15.5 788-0) PLT (test code = See_Comment [Automated 807-3) message] The sy stem which generated this result transmitted reference range : 166 - 358 10*3/ ?L. The reference r flaquito was not used to interpret this result as normal/abnormal . MPV (test code = 10.5 fL 9.5-12.9 08502-2) NRBC/100 WBC (test See_Comment [Automat ed code = 3932906772) message] The system which generated this result transmitted reference range : 0.0 - 10.0 /100 WBCs. The refer ence range was not u sed to interpret th is result as normal/abnormal . NRBC x10^3 (test code See_Comment [Auto mated = 7917544580) message] The s ystem which generated this result transmitted reference range : 10*3/?L. The reference range was not used to interpret this result as normal/abnormal . GRAN MAT (NEUT) % 50.6 % (test code = 770-8) IMM GRAN % (test code 0.50 % = 9552554410) LYMPH % (test code = 39.9 % 736-9) MONO % (test code = 7.3 % 5905-5) EOS % (test code = 1.4 % 713-8) BASO % (test code = 0.3 % 706-2) GRAN MAT x10^3(ANC) 4.40 10*3/uL 1.88-7.09 (test code = 3642941520) IMM GRAN x10^3 (test 0.04 10*3/uL 0.00-0.06 code = 7826436989) LYMPH x10^3 (test code 3.46 10*3/uL 1.32-3.29 H = 731-0) MONO x10^3 (test code 0.63 10*3/uL 0.33-0.92 = 742-7) EOS x10^3 (test code = 0.12 10*3/uL 0.03-0.39 711-2) BASO x10^3 (test code 0.03 10*3/uL 0.01-0.07 = 704-7) Lab Interpretation Abnormal (test code = 78965-9) [facility] - [facility]ine (Right Venipuncture) 2021-12-23 06:00:39 Test Item Value Reference Range Interpretation Comments Result (test code = No growth in 5 days 6463-4) [facility] [id number] 06:00:39 Test Item Value Reference Range Interpretation Comments CULTURE (BEAKER) (test No growth in 5 days code = 1095) BLOOD [id number] 03:00:36 Test Item Value Reference Range Interpretation Comments CULTURE (BEAKER) (test No growth in 5 days code = 1095) Urinalysis w/Microscopic + Reflex to [id number] 10:45:20 Test Item Value Reference Range Interpretation Comments Color, UA (test Light Yellow code = 5778-6) Clarity, UA (test Clear code = 5767-9) Specific [place], 1.014 1.001-1.035 UA (test code = 5811-5) pH, UA (test code 7.5 5.0-8.0 = 5803-2) Protein, UA (test Negative Negative code = 16919-6) Glucose, UA (test Negative Negative code = 365) Ketones, UA (test Negative Negative code = 2514-8) Bilirubin, UA Negative Negative (test code = 27285-2) Blood, UA (test Negative Negative code = 21851-5) Nitrite, UA (test Negative Negative code = 5802-4) Leukocytes, UA Negative Negative (test code = 5799-2) Urobilinogen, UA 0.2 mg/dL 0.2-1.0 (test code = 73506-6) RBC, UA (test 1 See_Comment [Automated me ssage] code = 44575-9) The system [facility] generated this result transmit aamir reference range : /HPF. The refer ence range was not u sed to interpret th is result as normal/abnormal . WBC, UA (test 1 See_Comment [Automated me ssage] code = 5821-4) The system [facility] generated this result transmit aamir reference range : /HPF. The refer ence range was not u sed to interpret th is result as normal/abnormal . Bacteria, UA Rare (test code = 93909-4) Mucus (test code Rare = 8247-9) Squam Epithel, UA 3 See_Comment [Automate d message] (test code = The system [facility] 22932-8) generated this result transmit aamir reference range : /HPF. The refer ence range was not u sed to interpret th is result as normal/abnormal . Crystals, Urine None Seen (test code = 39477-6) Specimen Source (test code = 2795) SERGIO (test code = Install And Repair Technician ID - SERGIO) [auto]Install And Repair Technician ID - tech [facility]/ REFLEX URINE [id number] 10:45:20 Test Item Value Reference Range Interpretation [...] = 1521) SOURCE(BEAKER) (test code = 2795) Install And Repair Technician ID - [auto]Install And Repair Technician ID - techBasic metabolic [id number] 04:19:43 Test Item Value Reference Range Interpretation Comments Sodium (test code = 139 meq/L 613-468 4083-2) Potassium (test code = 3.6 meq/L 3.5-5.1 2823-3) Chloride (test code = 108 meq/L 98-107 H 5-0) CO2 (test code = 25 meq/L 22-29 8-9) BUN (test code = 13 mg/dL 7-21 3094-0) Creatinine (test code 0.84 mg/dL 0.57-1.25 = 2160-0) Glucose (test code = 112 mg/dL 70-105 H 2345-7) Calcium (test code = 9.0 mg/dL 8.4-10.2 37391-8) EGFR (test code = 79 mL/min/1.73 [place] [address]-5) NOT ACCURATE CREATININE CLEARANCE IN PREDICTING GLOMERULAR FILTRATION RATE . ESTIMATED GFR I S NOT APPLICABLE FOR DIALYSIS PATIENTS. SERGIO (test code = SERGIO) Install And Repair Technician CHUCHO Mireles Lab Interpretation Abnormal (test code = 03003-7) [facility] METABOLIC [id number] 04:19:43 Test Item Value Reference Range Interpretation [...] S NOT APPLICABLE FOR DIALYSIS PATIEN TS. Install And Repair Technician CHUCHO RYAN [facility] with platelet count + automated [id number] 04:14:48 Test Item Value Reference Range Interpretation Comments WBC (test code = 6690-2) 8.8 See_Comment [A utomated message] The system [employer] generated this result transmitted ref erence range: 3.5 - 10 .5 K/L. The refe rence range was not u sed to interpret this result as normal/abnor mal. RBC (test code = 789-8) 4.06 See_Comment [Au tomated message] The system [employer] generated this result transmitted ref erence range: 3.93 - 5 .22 M/L. The refe rence range was not u sed to interpret this result as normal/abnor mal. MCHC (test code = 786-4) 31.2 See_Comment L [A utomated message] The system [employer] generated this result transmitted ref erence range: [...] See_Comment [Aut omated message] 777-3) The system [employer] generated this result transmitted ref erence range: 150 - 45 0 K/CU MM. The referen ce range was not u sed to interpret this result as normal/abnor mal. MPV (test code = 10.5 fL 9.4-12.3 48319-5) nRBC (test code = 413) 0 See_Comment [Aut omated message] The system [employer] generated this result transmitted ref erence range: [...] See_Comment [Aut omated message] 670) The system [employer] generated this result transmitted ref erence range: 1.56 - 6 .13 K/L. The refe rence range was not u sed to interpret this result as normal/abnor mal. # Lymphs (test code = 4.14 See_Comment H [Auto mated message] 414) The system [employer] generated this result transmitted ref erence range: 1.18 - 3 .74 K/L. The refe rence range was not u sed to interpret this result as normal/abnor mal. # Monos (test code = 0.74 See_Comment H [Autom ated message] 415) The system [employer] generated this result transmitted ref erence range: 0.24 - 0 .36 K/L. The refe rence range was not u sed to interpret this result as normal/abnor mal. # Eos (test code = 416) 0.33 See_Comment [Au tomated message] The system [employer] generated this result transmitted ref erence range: 0.04 - 0 .36 K/L. The refe rence range was not u sed to interpret this result as normal/abnor mal. # Baso (test code = 417) 0.04 See_Comment [A utomated message] The system [employer] generated this result transmitted ref erence range: 0.01 - 0 .08 K/L. The refe rence range was not u sed to interpret this result as normal/abnor mal. Immature 0 % 0-1 Granulocytes-Relative (test code = 2801) Lab Interpretation (test Abnormal code = 98660-2) [facility] W/PLT COUNT & AUTO [id number] 04:14:48 Test Item Value Reference Range Interpretation [...] % 0-1 PERCENT (BEAKER) (test code = 7761)
[2023-03-05] MEDS ORDERED: LEVETIRACETAM 500 MG/5 ML VIAL IV ONE (23:36)
[2023-03-05] MEDS ORDERED: NA CHLORIDE 0.9% 100 ML ONE (23:37)
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
[2023-03-06 00:34] LABS: Calcium Oxalate Crystals- Ur Few /HPF (None Seen); Renal Epithelial <5 /HPF (None Seen); Specific Gravity > 1.030 (1.005-1.030); Urine Bacteria None Seen /HPF (<20); Urine Bilirubin NEGATIVE (Negative); Urine Blood Negative (Negative); Urine Clarity Clear (Clear); Urine Color Yellow (Yellow); Urine Glucose NEGATIVE (Negative); Urine Mucus 1+ /HPF (None Seen); Urine Protein 1+ (Negative); Urine RBC <5 /HPF (None Seen); Urine Urobilinogen Normal (Normal)
[2023-03-06 00:35] LABS: Specific Gravity 1.034 (1.005-1.030)
[2023-03-06 00:44] LABS: Absolute Lymphocytes (CBC) 7.3 K/uL (0.7-4.9); Lymphocytes % 47.8 % (15.3-44.8); MPV 8.9 fL (7.6-11.3); RBC Red Blood Cell Count 4.12 M/uL (3.86-4.86)
[2023-03-06 01:06] LABS: Magnesium 1.8 mg/dL (1.6-2.4); Potassium 3.1 mEq/L (3.5-5.1)
--- NOTE | 2023-03-06 01:17 | P.HP ---
Certification for Inpatient Patient admitted to: Observation With expected LOS: <2 Midnights Patient will require the following post-hospital care: None Practitioner: I am a practitioner with admitting privileges, knowledge of patient current condition, hospital course, and medical plan of care. Services: Services provided to patient in accordance with Admission requirements found in Title 42 Section 412.3 of the Code of Federal Regulations <Romulo Rios - Last Filed: 03/06/23 01:14> Patient History Date of Service: 03/06/23 Reason for admission: Seizures History of Present Illness: 32-year-old female with history of seizure disorder, noncompliance, asthma, hypertension, anxiety presents the emergency department for seizures. At this time patient is postictal history from chart review/other providers. She was seen in the emergency department on the sixth, seventh of this month for seizures and given prescriptions for her home medications which she apparently has yet to fill she reportedly takes carbamazepine 200 mg twice daily, the last time she was admitted to hospital for seizures on 09/06/2021 she was taking a much higher dose of carbamazepine as well as Keppra. She is evaluated in the emergency department today her labs were significant for potassium 3.1 white blood cell count 15.3, ED provider discussed case with neurologyDr. Ramos who recommended admission to the hospital, evaluation of Tegretol level and addition of Keppra, she was given a gram of Keppra in the emergency department. Will admit under observation for seizures. - Past Medical/Surgical History Diabetic: No -: Panic Attacks -: Anxiety -: Seizures -: Asthma -: HTN -: herniated bulging disc -: pinched nerve both neck and buttocks -: Migraines -: L ear reconstruction Psychosocial/ Personal History: Patient lives at home with family - Family History Father -: Hypertension - Social History Alcohol use: No CD- Drugs: No Caffeine use: Yes Place of Residence: Home <Romulo Rios - Last Filed: 03/06/23 01:14> Date of Service: 03/06/23 <Rolly Bowers - Last Filed: 03/06/23 13:37> Allergies ketorolac Allergy (Verified 09/06/21 21:29) Itching/Hives/Rash Home Medications: Carbamazepine [Tegretol] 600 mg PO BID 30 Days #180 09/08/21 levETIRAcetam [Keppra] 500 mg PO TID 30 Days #90 09/08/21 Amoxicillin [Amoxil] 1 tab PO Q12H 03/06/23 Furosemide 1 tab PO DAILY 03/06/23 Gabapentin 1 tab PO TID 03/06/23 Pantoprazole [Protonix Tab*] 1 tab PO DAILY 03/06/23 Valsartan/Hydrochlorothiazide [Valsartan-Hctz 160-25 mg Tab] 1 tab PO DAILY 03/06/23 Review of Systems is unable to be obtained (Postictal) <Romulo Rios - Last Filed: 03/06/23 01:14> Physical Examination - Physical Exam General: In no apparent distress, Obese, Other (Drowsy) HEENT: Atraumatic, PERRLA, Mucous membr. moist/pink, EOMI, Sclerae nonicteric Neck: Supple, 2+ carotid pulse no bruit, No LAD, Without JVD or thyroid abnormality Respiratory: Clear to auscultation bilaterally, Normal air movement Cardiovascular: Regular rate/rhythm, Normal S1 S2 Gastrointestinal: Normal bowel sounds, No tenderness Musculoskeletal: No tenderness Integumentary: No rashes Neurological: Normal speech, Normal strength at 5/5 x4 extr, Normal tone, Normal affect - Studies Laboratory Data (last 24 hrs) 03/06/23 00:09: Magnesium Cancelled 03/06/23 00:08: Sodium 139, Potassium 3.1 L, BUN 14, Creatinine 1.05 H, Glucose 162 H, Magnesium 1.8 03/06/23 00:08: WBC 15.30 H, Hgb 11.1 L, Hct 35.0 L, Plt Count 284 <Romulo Rios - Last Filed: 03/06/23 01:14> - Studies Laboratory Data (last 24 hrs) 03/06/23 00:09: Magnesium Cancelled 03/06/23 00:08: Sodium 139, Potassium 3.1 L, BUN 14, Creatinine 1.05 H, Glucose 162 H, Magnesium 1.8 03/06/23 00:08: WBC 15.30 H, Hgb 11.1 L, Hct 35.0 L, Plt Count 284 <Rolly Bowers - Last Filed: 03/06/23 13:37> Assessment and Plan - Plan Assessment: Seizures-history of seizure disorder with noncompliance Hypertension Asthma Hypokalemia Plan: Seizures-history of seizure disorder with noncompliance We will start on carbamazepine 200 mg p.o. twice daily as well as Keppra 500 mg p.o. twice daily, it was reported that patient has not been noncompliant with her home medications. Neurology consult in place. Patient postictal at this time will need to better clarify patient's home medications, compliance with home medications when she is more alert. Did review external pharmacy which did not show any carbamazepine recently. Hypertension Asthma Continue home meds Hypokalemia Replaced in ED, protocol in place. DVT PPX: Lovenox Code status: Full Discharge Plan: Home Plan to discharge in: 24 Hours - Advance Directives Does patient have a Living Will: No Does patient have a Durable POA for Healthcare: No - Code Status/Comfort Care Code Status Assessed: Yes (Full code) Critical Care: No Time Spent Managing Pts Care (In Minutes): 55 <Romulo Rios - Last Filed: 03/06/23 01:14> - Plan Patient seen and examined on rounds this morning. Sleepy, but arousable after medications. Reports headache Continue anti-epileptics neuro consulted monitor closely <Rolly Bowers - Last Filed: 03/06/23 13:37>
[2023-03-06] MEDS ORDERED: KCL 20 MEQ/100 mL IVPB 100 ML IV ONE (01:26)
[2023-03-06] MEDS ORDERED: NA CHLORIDE 0.9% 250 ML ONE (01:26)
[2023-03-06 01:41] LABS: Barbiturates NEGATIVE (NEGATIVE); Benzodiazepines POSITIVE (NEGATIVE); Cocaine NEGATIVE (NEGATIVE); METHAMPHETAM NEGATIVE (NEGATIVE); Methadone NEGATIVE (NEGATIVE); Opiates NEGATIVE (NEGATIVE); Phencyclidine NEGATIVE (NEGATIVE); THC Cannibis NEGATIVE (NEGATIVE)
[2023-03-06 02:29] VITALS: BMI 42.4
[2023-03-06] MEDS ORDERED: ONDANSETRON 4 MG/2 ML VIAL IV PRN (02:48)
[2023-03-06] MEDS ORDERED: LORazepam 2 MG/ML VIAL IV PRN (02:48)
[2023-03-06] MEDS: NA CHLORIDE 0.9% 1,000 ML IV SCH ×2 (03:13→13:19)
[2023-03-06 04:29] LABS: Hematocrit 33.8 % (36.0-45.0); Lymphocytes % 50.8 % (15.3-44.8); MCV 85.5 fL (80-100); RBC Red Blood Cell Count 3.95 M/uL (3.86-4.86)
[2023-03-06 05:14] LABS: Potassium 3.7 mEq/L (3.5-5.1); Thyroid Stimulating Hormone 1.97 uIU/mL (0.358-3.740)
[2023-03-06] MEDS: carBAMazepine 200 MG TAB PO SCH ×2 (07:59→20:35)
[2023-03-06] MEDS: levETIRAcetam 500 MG TAB PO SCH ×2 (07:59→20:35)
[2023-03-06] MEDS: ENOXAPARIN 40 MG/0.4 ML SQ SCH ×2 (07:59→08:01)
[2023-03-06] MEDS ORDERED: POTASSIUM CL SA 10 MEQ TAB PO ONE (09:00)
[2023-03-06] MEDS ORDERED: ACETAMINOPHEN 500 MG TAB PO PRN (12:03)
[2023-03-06] MEDS: GABAPENTIN 100 MG CAP PO SCH ×2 (16:01→20:35)
[2023-03-06] MEDS: IBUPROFEN 600 MG TAB PO PRN (16:01)
[2023-03-07] MEDS: NA CHLORIDE 0.9% 1,000 ML IV SCH (00:16)
--- NOTE | 2023-03-07 03:04 | CON ---
Date of Consultation: 03/06/2023 Reason For Consultation: Consultation called because of seizures. History Of Present Illness: Ms. Robbins is a 32-year-old patient with history of seizures, who is not compliant, stating that she does not have a doctor and is not followed up and has not had medication s since her last visit, which was recent. She has comorbid asthma, hypertension, and anxiety. She d id have apparently seizures on the 6th and 7th of this month, today is the 9th. She was prescribed m edications for home, which was carbamazepine 200 mg twice daily, but was not taking that medication. She was also given Keppra, but again was not taking the medication. She should have followed up in office, but did not do so. She also has panic attacks and has not been seen for that. Past Medical History: Panic attacks, anxiety, seizures, asthma, hypertension, reported herniated bul ging disk, pinched nerves in neck and buttocks, and migraines. Past Surgical History: Left ear surgery. Family History: Hypertension in father. Social History: The patient lives at home with family. Allergies: KETOROLAC. Medications: She should be on Tegretol 600 mg twice daily, Keppra 500 mg 3 times daily, furosemide d aily, gabapentin 3 times daily, Protonix daily, and valsartan/hydrochlorothiazide daily. Review of Systems: She does report seizures when not taking medications. Otherwise, no fevers or chills. No nausea, vo miting, myalgias, or arthralgias. No rash. No weight change. No other complaints. Physical Examination: Vital Signs: Blood pressure 123/64, pulse 80, respiratory rate 14, temperature 98.9, and oxygen satu ration 100%. General: Ms. Robbins is resting in bed. She is recovering from her seizure, not postictal. She is f ollowing all commands appropriately. HEENT: She is normocephalic, atraumatic. Sclerae anicteric. Oropharynx pink and moist. Neck: Supple. Chest: Clear. Heart: Regular. Extremities: No clubbing, cyanosis, or edema. Neurologic: Alert and oriented to person, place, time, and situation. No focal deficits in terms of cranial nerves, motor, sensory, coordination, or gait. Laboratory Studies: White blood cell count 13.8, hemoglobin 10.8, and platelets 277. Chemistry: So dium 140, potassium 3.7, chloride 110, carbon dioxide 28, BUN 13, creatinine 0.95, calcium 8.4. TSH 1.90, free T4 0.94. Her drug screen shows positive benzodiazepines. Carbamazepine level is subthera peutic at 1.3. Assessment: Ms. Robbins is a 32-year-old patient, noncompliant with medications, and reporting she do es not have a physician. She has comorbidities as listed. Plan: Continue with all medications as noted. She will be given prescriptions and she will follow u p in the office within a month. Her medications should include Keppra 500 mg twice daily, Tegretol 2 00 mg twice daily, and she should be on gabapentin 200 mg 3 times daily and follow up in clinic withi n the month. KEL Voice ID: [id number] Report ID: [id number]
[2023-03-07] MEDS: IBUPROFEN 600 MG TAB PO PRN (05:58)
--- NOTE | 2023-03-07 07:19 | P.DS ---
Admission Date: 03/06/23 Discharge Date: 03/07/23 Disposition: ROUTINE DISCHARGE Discharge Condition: GOOD Reason for Admission: Seizures Consultations: Neurology - Dr. Ramos Brief History of Present Illness: 32yo F, PMH: seizure disorder, noncompliance, asthma, hypertension, anxiety Patient presents the emergency department for seizures. At this time patient is postictal history from chart review/other providers. She was seen in the emergency department on the sixth, seventh of this month for seizures and given prescriptions for her home medications which she apparently has yet to fill she reportedly takes carbamazepine 200 mg twice daily, the last time she was admitted to hospital for seizures on 09/06/2021 she was taking a much higher dose of carbamazepine as well as Keppra. She is evaluated in the emergency department today her labs were significant for potassium 3.1 white blood cell count 15.3, ED provider discussed case with neurologyDr. Ramos who recommended admission to the hospital, evaluation of Tegretol level and addition of Keppra, she was given a gram of Keppra in the emergency department. Will admit under observation for seizures. Hospital Course: Problem List: Seizures-history of seizure disorder with noncompliance Hypertension Asthma Hypokalemia Patient presented with seizures. She has been previously seen earlier this month for seizures and was given prescriptions for her home medications which she has not had an opportunity to fill yet. Neurology was consulted. She was given carbamazepine 200mg and Keppra 1g in the ED and restarted on maintenance dosing. Leukocytosis was noted and secondary to steroid administration in the ED. No evidence of infection. She was monitored overnight, her labs significantly improved, and was deemed stable for discharge. Discussed with the patient that it is important she is more compliant with her home medications and that she tries not to miss any doses. Continue home meds as previously prescribed. Refill prescriptions sent for Keppra 500mg BID Tegretol 200mg BID Recently filled/prescribed gabapentin which she is to continue Follow-up: PCP within 1 week Neurology within 1 month Physical Exam: GEN: Alert, oriented, NAD HEENT: Normal conjunctiva, sclera anicteric CV: Regular rate and rhythm, no edema Pulm: Nonlabored respirations on room air ABD: Soft, nontender, nondistended Integumentary: No rashes Neuro: Normal speech, normal affect Vital Signs/Physical Exam: Temp Pulse Resp BP Pulse Ox 98.3 F 63 18 118/56 L 94 03/07/23 04:00 03/07/23 04:00 03/07/23 04:00 03/07/23 04:00 03/07/23 04:00 Laboratory Data at Discharge: WBC 13.80 thou/uL (4.3-10.9) H 03/06/23 04:00 Hgb 10.8 g/dL (12.0-15.0) L 03/06/23 04:00 Hct 33.8 % (36.0-45.0) L 03/06/23 04:00 Plt Count 277 thou/uL (152-406) 03/06/23 04:00 Sodium 140 mEq/L (136-145) 03/06/23 04:00 Potassium 3.7 mEq/L (3.5-5.1) D 03/06/23 04:00 BUN 13 mg/dL (7-18) 03/06/23 04:00 Creatinine 0.95 mg/dL (0.55-1.02) 03/06/23 04:00 Glucose 127 mg/dL (74-106) H 03/06/23 04:00 Magnesium Cancelled 03/06/23 00:09 Home Medications: Furosemide 1 tab PO DAILY 03/06/23 Gabapentin 1 tab PO TID 03/06/23 Pantoprazole [Protonix Tab*] 1 tab PO DAILY 03/06/23 Valsartan/Hydrochlorothiazide [Valsartan-Hctz 160-25 mg Tab] 1 tab PO DAILY 03/06/23 carBAMazepine [Tegretol*] 1 tab PO BID 30 Days #60 tab 03/07/23 levETIRAcetam [Keppra*] 1 tab PO BID 30 Days #60 tab 03/07/23 New Medications: levETIRAcetam [Keppra*] 1 tab PO BID 30 Days #60 tab carBAMazepine [Tegretol*] 1 tab PO BID 30 Days #60 tab Physician Discharge Instructions: Patient presented with seizures. She has been previously seen earlier this month for seizures and was given prescriptions for her home medications which she has not had an opportunity to fill yet. Neurology was consulted. She was given carbamazepine 200mg and Keppra 1g in the ED and restarted on maintenance dosing. Leukocytosis was noted and secondary to steroid administration in the ED. No evidence of infection. She was monitored overnight, her labs significantly improved, and was deemed stable for discharge. Discussed with the patient that it is important she is more compliant with her home medications and that she tries not to miss any doses. Continue home meds as previously prescribed. Refill prescriptions sent for Keppra 500mg BID Tegretol 200mg BID Recently filled/prescribed gabapentin which she is to continue Follow-up: PCP within 1 week Neurology within 1 month Followup: Deepak Ramos MD [ASSOCIATE-ACTIVE - CAN ADMIT] - (call to schedule an appointment in 1 month) Unknown,U [Primary Care Provider] - 1 Week (call to schedule an appointment) Time spent managing pt's care (in minutes): 45
[2023-03-07 07:31] LABS: Hematocrit 33.9 % (36.0-45.0); Lymphocytes % 58.5 % (15.3-44.8); MCV 85.5 fL (80-100); MPV 9.1 fL (7.6-11.3); RBC Red Blood Cell Count 3.96 M/uL (3.86-4.86)
[2023-03-07] MEDS: GABAPENTIN 100 MG CAP PO SCH (08:12)
[2023-03-07] MEDS: ENOXAPARIN 40 MG/0.4 ML SQ SCH (08:12)
[2023-03-07] MEDS: carBAMazepine 200 MG TAB PO SCH (08:12)
[2023-03-07] MEDS: levETIRAcetam 500 MG TAB PO SCH (08:12)
[2023-03-07 08:38] VITALS: BP 121/71; TEMP 97.8
[2023-03-07 08:52] VITALS: O2SAT 98
== END 2023-03-07 09:52 | disposition home or self-care (01) ==
LOC: ER 23:11 → 2ND 03-06 01:24
PROVIDERS: ADMIT Hospitalist; ATTEND Hospitalist
DX: R56.9 Unspecified convulsions (principal); I10 Essential (primary) hypertension; J45.909 Unspecified asthma, uncomplicated; E87.6 Hypokalemia; F41.9 Anxiety disorder, unspecified; G43.909 Migraine, unspecified, not intractable, without status migrainosus; F41.0 Panic disorder [episodic paroxysmal anxiety]; Z91.148 Patient's other noncompliance with medication regimen for other reason
CPT/HCPCS: 36415; 80048; 80156; 80307; 81001; 81025; 82550; 83735; 84439; 84443; 85025; 96365; 96367; 99285; G0378; J1650; J1953; J3480; J7030; J7050

== ENCOUNTER 2023-05-10 20:52 | Emergency (ER) | payer BC, OTHER ==
--- OUTSIDE RECORDS SUMMARY | 2023-05-10 21:02 | XMS REPORT | Continuity of Care Document ---
:1990 Author Organization [facility] t Address [address] [place] [address] Care Team Providers Name Role Phone DULCE WEEKS Primary Care Physician Unavailable NILA VILLAGRAN Attending Clinician Unavailable JOSE ANGEL PERALTA Attending Clinician Unavailable JOSE ANGEL PERALTA Attending Clinician Unavailable Dulce Weeks MD Attending Clinician Eugene LLANOS, Zelda Hernandez Attending Clinician Unavailable DULCE WEEKS Attending Clinician Unavailable Doctor Unassigned, [place] Attending Clinician Unavailable Khloe Mayen MA Attending Clinician Unavailable Prisca Vilchis Attending Clinician Unavailable Cyrus Shultz MD Attending Clinician CYRUS SHULTZ Attending Clinician Unavailable Pob, Adc Lab Main Attending Clinician Unavailable JANIS Attending Clinician Unavailable ISHAN BENNETT Attending Clinician Unavailable MARYLU TIWARI Attending Clinician Unavailable Jade STEINER, Brett Attending Clinician Edgardo Jacobs MD Attending Clinician [phone] Marylu Tiwari MD Attending Clinician Nila Rhoades Attending Clinician ZELDA FREEMAN Attending Clinician Unavailable AIDAN REYNOSO Attending Clinician Unavailable Nurse, Adc Pob Immunization Attending Clinician Unavailable Aidan Reynoso DO Attending Clinician Bakari STEINER, Gisell Attending Clinician Unknown, Attending Attending Clinician Unavailable UNKNOWN, ATTENDING Attending Clinician Unavailable Alesha PAC, K Josefina Attending Clinician Zelda Freeman MD Attending Clinician [phone] Lab, Adc Fam Pob I Attending [...] Number Effective Date Expiration Date Janes henriquez [facility] [id number] 2019 CHOICE MEDICAID 00:00:00 MEDICAID COMM [id number] 2021 HEALTH CHOICE 00:00:00 [facility] [id number] CHOICE (MEDICAID REPLACEMENT - HMO) Problems Condition [...] 1-22 ity of examinatio examin[place] 00 Medical Branch Lipid Lipid Disease Active Univers disorder disorder 1-21 ity of 00:00: [place] 00 Medical Branch Thickened Thickened Disease Active Uni vers endometriu endometriu 1-03 it y of m m 00:00: [place] 00 Medical Branch Menorrhagi Menorrhagi Disease Active U nivers a with a with 1-03 it[place] of irregular irregular 00:[place] 00 [place] Pain Pain Disease Active 2021-10 Univers pelvic pelvic 2-21 ity of 00:00: [place] [facility] History of History of Disease Active 2021-10 U nivers ovarian ovarian 2-21 ity of cyst cyst 00:00: [place] [facility] Patient Patient Disease Active 2021-10 Univers desires desires 2-21 [place] of 00[place] Vaping Vaping Disease Active 2021-10 Univers 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 ity of dependence dependence 00:00: [place] , , 00 Medical non-tobacc non-tobacc Br anch o product o product BMI BMI Disease Active 2021-10 Univers 40.0-44.9, 40.0-44.9, 2-21 it y of adult adult 00:00: [place] [facility] Branch 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 2-21 it y of y of shape y of shape 00:00: [place] of left of left 00 Medical external external Branch ear ear Status Status Disease Active [facility] epileptic[facility] epilepticu 2-20 [facility] kes s s 00:00: [facility] 00 Center UTI due to UTI due to Disease Active [facility] trichomona trichomona 2-20 Maranda kes s s 00:00: Medical vaginalis vaginalis 00 Cent er Epilepsy Epilepsy Disease Recurre [facility] Status Status Disease Active Univers epilepticu epilepticu 2-19 it y of s s 00:00: [place] 00 Medical Branch Upper Upper Disease Active Univers respirator respirator 2-14 it y of y tract y tract 00:00: [place] infection, infection, 00 Me dical unspecifie unspecifie Br anch d type d type Gastroesop Gastroesop Disease Active U guillaumeers hageal hageal 2-14 ity of reflux reflux 00:00: [place] disease disease 00 Medical without without Branch esophagiti esophagiti s s Cough Cough Disease Active Univers 2-14 ity of 00:00: [place] 00 Medical Branch Congestion Congestion Disease Active U nivers of nasal of nasal 2-14 ity of sinus sinus 00:00: [place] 00 Medical Branch Nausea Nausea Disease Active Univers 2-14 ity of 00:00: [place] 00 Medical Branch Acute Acute Disease Active Univers otitis otitis 2-14 ity of externa of externa of 00:00: [place] right ear, right ear, 00 Me dical unspecifie unspecifie Br anch d type d type Obesity Obesity Disease Active Univers (BMI (BMI 9-27 ity of 30-39.9) 30-39.9) 00:00: [place] [facility] Irregular Irregular Disease Active Uni vers menstrual menstrual 3-12 ity of cycle cycle 00:00: [place] 00 Medical Branch Asthma, Asthma, Disease Active Univers unspecifie unspecifie 4-23 it y of d asthma d asthma 00:00: [place] severity, severity, 00 Medi chloé unspecifie unspecifie Br anch d whether d whether complicate complicate d, d, unspecifie unspecifie d whether d whether persistent persistent Anxiety Anxiety Disease Active Univers 6-24 ity of 00:00: [place] 00 Medical Branch Essential Essential Disease Active Uni vers hypertensi hypertensi 6-24 it y of on on 00:00: [place] [address] Medical Branch Other Other Disease Active Univers [...] upper 6-24 ity of abdomen abdomen 00:00: [place] 00 Medical Branch Allergies, Adverse Reactions, Alerts [...] FOSPHENY Allergy Active Itching [facility] 00:[facility]: Medical [facility] Center [place] Drug Active Hives, Can take [facility] Allergy Itching, 6 aspirin [facility] Rash, 00:00: and Medical Shortness [...] Passive smoker University of tobacco use 00:00:00 [facility] History SDOH [facility] Alcohol Std Medical Cent[facility] r Drinks History SDOH [facility] Alcohol Binge Medical Jatinder ter History SDOH [facility] Alcohol Comment Medical C enter Exposure to 2022-12-22 2023-01-01 Not sure University of SARS-CoV-2 00:00:00 11:43:00 [facility] [place] [facility] (event) [employer] Tobacco use and 2022-10-18 2022-10-18 Smokeless tobacco Un iversity of exposure 00:00:00 00:00:00 non-user [facility] Tobacco Comment 2022-10-18 2022-10-18 3-4 ciggs a day Univ ersity of 00:00:00 00:00:00 [facility] Alcohol intake 2021-12-18 2021-12-[address] Flory es 00:00:00 00:00:00 non-drinker Medical Humphrey nguyen (finding) History SDOH 2021-12-18 2021-12-[address] [facility] Alcohol Frequency 00:00:00 00:00:00 [facility] Center Sex [birth year] ZINA Draper 00:00:00 00:00:00 [facility] Smoking Status Start Date Stop Date Source Ex-smoker 2022-10-18 00:00:00 2022-10-18 00:00:00 [facility] Never smoked tobacco [facility] Light tobacco smoker 2019-01-07 00:00:00 [facility] [place] [facility] Medications Ordered Filled Start Stop Current Ordering Indication Dosage Frequency Signature Comments Components Source Medication Medication Date Date Medication? Clinician (SIG) Name Name ibuprofen 2022- No [id number] 600mg U nivers (IBU) 3- 03-04 ity of tablet 600 16:15: 04:14 [place] mg 00 :00 Medical Branch Norethindro Yes [id number] 1{tbl} Take 1 Univers ne 1-18 tablet by ity of Acet-Ethiny 00:00: mouth in [place] l Est 00 the Medical (ESTRIN morning. Branch ,) 1.5-30 mg-mcg per tablet ibuprofen Yes [id number] 800mg Take 1 Univers 800 mg 1-18 tablet by ity of tablet 00:00: mouth [place] 00 every 6 Medical (six) Branch hours as needed for Pain (scale 4-6). Norethindro Yes [id number] 1{tbl} Take 1 Univers ne 1-18 tablet by ity of Acet-Ethiny 00:00: mouth in [place] Est 00 the Medical (LOESTRIN morning. Branch .,) 1.5-30 mg-mcg per tablet ibuprofen Yes [id number] 800mg Take 1 Univers 800 mg 1-18 tablet by ity of tablet 00:00: mouth [place] 00 every 6 Medical (six) Branch hours as needed for Pain (scale 4-6). Norethindro Yes [id number] 1{tbl} Take 1 Univers ne 1-18 tablet by ity of Acet-Ethiny 00:00: mouth in [place] Est 00 the Medical (ESTRIN morning. Branch ,) 1.5-30 mg-mcg per tablet ibuprofen 2022-0 Yes [id number] 800mg Take 1 Univers 800 mg 1-18 tablet by ity of tablet 00:00: mouth [place] 00 every 6 Medical (six) Branch hours as needed for Pain (scale 4-6). Norethindro 2022-0 Yes [id number] 1{tbl} Take 1 Univers ne 1-18 tablet by ity of Acet-Ethiny 00:00: mouth in [place] Est 00 the Medical (ESTRIN morning. Branch ,) 1.5-30 mg-mcg per tablet ibuprofen 2022-0 Yes [id number] 800mg Take 1 Univers 800 mg 1-18 tablet by ity of tablet 00:00: mouth [place] 00 every 6 Medical (six) Branch hours as needed for Pain (scale 4-6). Norethindro 2022-0 Yes [id number] 1{tbl} Take 1 Univers ne 1-18 tablet by ity of Acet-Ethiny 00:00: mouth in [place] Est 00 the Medical (ESTRIN morning. Branch ,) 1.5-30 mg-mcg per tablet ibuprofen 2022-0 Yes [id number] 800mg Take 1 Univers 800 mg 1-18 tablet by ity of tablet 00:00: mouth [place] 00 every 6 Medical (six) Branch hours as needed for Pain (scale 4-6). Norethindro 2022-0 Yes [id number] 1{tbl} Take 1 Univers ne 1-18 tablet by ity of Acet-Ethiny 00:00: mouth in [place] Est 00 the Medical (ESTRIN morning. Branch ,) 1.5-30 mg-mcg per tablet ibuprofen 2022-0 Yes [id number] 800mg Take 1 Univers 800 mg 1-18 tablet by ity of tablet 00:00: mouth [place] 00 every 6 Medical (six) Branch hours as needed for Pain (scale 4-6). Norethindro 2023-0 Yes [id number] 1{tbl} Take 1 Univers ne 1-18 tablet by ity of Acet-Ethiny 00:00: mouth in [place] Est 00 the Medical (. Branch ,) 1.5-30 mg-mcg per tablet ibuprofen 2022-0 Yes [id number] 800mg Take 1 Univers 800 mg 1-18 tablet by ity of tablet 00:00: mouth [place] 00 every 6 Medical (six) Branch hours as needed for Pain (scale 4-6). Norethindro 2022-0 Yes [id number] 1{tbl} Take 1 Univers ne 1-18 tablet by ity of Acet-Ethiny 00:00: mouth in [place] Est 00 the Medical (. Branch ,) 1.5-30 mg-mcg per tablet ibuprofen 2022-0 Yes [id number] 800mg Take 1 Univers 800 mg 1-18 tablet by ity of tablet 00:00: mouth [place] 00 every 6 Medical (six) Branch hours as needed for Pain (scale 4-6). Norethindro 2022-0 Yes [id number] 1{tbl} Take 1 Univers ne 1-18 tablet by ity of Acet-Ethiny 00:00: mouth in [place] Est 00 the Medical (. Branch ,) 1.5-30 mg-mcg per tablet ibuprofen 2022-0 Yes [id number] 800mg Take 1 Univers 800 mg 1-18 tablet by ity of tablet 00:00: mouth [place] 00 every 6 Medical (six) Branch hours as needed for Pain (scale 4-6). Norethindro 2022-0 Yes [id number] 1{tbl} Take 1 Univers ne 1-18 tablet by ity of Acet-Ethiny 00:00: mouth [place] Est 00 the Medical (. Branch ,) 1.5-30 mg-mcg per tablet ibuprofen 2022-0 Yes [id number] 800mg Take 1 Univers 800 mg 1-18 tablet by ity of tablet 00:00: mouth [place] 00 every 6 Medical (six) Branch hours as needed for Pain (scale 4-6). Norethindro 2023-0 Yes [id number] 1{tbl} Take 1 Univers ne 1-18 tablet by ity of Acet-Ethiny 00:00: mouth in [place] Est 00 the Medical (. Branch ,) 1.5-30 mg-mcg per tablet ibuprofen 202-0 Yes [id number] 800mg Take 1 Univers 800 mg 1-18 tablet by ity of tablet 00:00: mouth [place] 00 every 6 Medical (six) Branch hours as needed for Pain (scale 4-6). Norethindro 2022-0 Yes [id number] 1{tbl} Take 1 Univers ne 1-18 tablet by ity of Acet-Ethiny 00:00: mouth in [place] Est 00 the Medical (. Branch ,) 1.5-30 mg-mcg per tablet ibuprofen 2022-0 Yes [id number] 800mg Take 1 Univers 800 mg 1-18 tablet by ity of tablet 00:00: mouth [place] 00 every 6 Medical (six) Branch hours as needed for Pain (scale 4-6). Norethindro 2022-0 Yes [id number] 1{tbl} Take 1 Univers ne 1-18 tablet by ity of Acet-Ethiny 00:00: mouth in [place] Est 00 the Medical (. Branch ,) 1.5-30 mg-mcg per tablet ibuprofen 2022-0 Yes [id number] 800mg Take 1 Univers 800 mg 1-18 tablet by ity of tablet 00:00: mouth [place] 00 every 6 Medical (six) Branch hours as needed for Pain (scale 4-6). Norethindro 2023-0 Yes [id number] 1{tbl} Take 1 Univers ne 1-18 tablet by ity of Acet-Ethiny 00:00: mouth [place] Est 00 the Medical (. Branch ,) 1.5-30 mg-mcg per tablet ibuprofen 2022-0 Yes [id number] 800mg Take 1 Univers 800 mg 1-18 tablet by ity of tablet 00:00: mouth [place] 00 every 6 Medical (six) Branch hours as needed for Pain (scale 4-6). norethindro 2023-0 Yes [id number] .35mg Take 1 Univers ne (ORTHO 1-03 tablet by ity o f MICRONOR) 00:00: [place] 0.35 mg 00 the Medical tablet morning. Jonnathan rileyndro 2022-0 Yes [id number] .35mg Take 1 Univers ne (ORTHO 1-03 tablet by itYadio o f MICRONOR) 00:00: [place] 0.35 mg 00 the Medical tablet morning. Jonnathan norethindro 2022-0 Yes [id number] .35mg Take 1 Univers ne (ORTHO 1-03 tablet by itYadio o f MICRONOR) 00:00: [place] 0.35 mg 00 the Medical tablet morning. Jonnathan norethindro 0 2022- No [id number] .35mg Take 1 Univers ne (ORTHO 1-03 -22 tablet by ity of RomotiveOR) 00:00: 00:00 mouth in [place] 0.35 mg 00 :00 the Medical tablet morning. Jonnathan rileyndro 0 2022- No [id number] .35mg Take 1 Univers ne (ORTHO 1-03 -22 tablet by ity of RomotiveOR) 00:00: 00:00 mouth in [place] 0.35 mg 00 :00 the Medical tablet morning. Jonnathan rileyndro 2021-10 Yes [id number] .35mg Take 1 Univers ne (ORTHO 2-21 tablet by itYadio o f MICRONOR) 00:00: [place] 0.35 mg 00 the Medical tablet morning. Jonnathan ruizthindro 2021-10 Yes [id number] .35mg Take 1 Univers ne (ORTHO 2-21 tablet by ity o f MICRONOR) 00:00: [place] 0.35 mg 00 the Medical tablet morning. Branch norethindro 2021-10 Yes [id number] .35mg Take 1 Univers ne (ORTHO 2-21 tablet by ity o f MICRONOR) 00:00: mouth [place] 0.35 mg 00 the Medical tablet morning. Branch norethindro 2021-10 Yes [id number] .35mg Take 1 Univers ne (ORTHO 2-21 tablet by ity o f MICRONOR) 00:00: [place] 0.35 mg 00 the Medical tablet morning. Branch josephthindro 2021-10 Yes [id number] .35mg Take 1 Univers ne (ORTHO 2-21 tablet by ity o f MICRONOR) 00:00: mouth [place] 0.35 mg 00 the Medical tablet morning. Jonnathan porterro 2021-10 Yes [id number] .35mg Take 1 Univers ne (ORTHO 2-21 tablet by ity o f MICRONOR) 00:00: mouth [place] 0.35 mg 00 the Medical tablet morning. Jonnathan rileyndro 2021-10 Yes [id number] .35mg Take 1 Univers ne (ORTHO 2-21 tablet by ity o f MICRONOR) 00:00: mouth [place] 0.35 mg 00 the Medical tablet morning. Jonnathan rileyndro 2021-10 Yes [id number] .35mg Take 1 Univers ne (ORTHO 2-21 tablet by ity o f MICRONOR) 00:00: mouth [place] 0.35 mg 00 the Medical tablet morning. Jonnathan porterro 2021-10 Yes [id number] .35mg Take 1 Univers ne (ORTHO 2-21 tablet by ity o f MICRONOR) 00:00: mouth [place] 0.35 mg 00 the Medical tablet morning. Jonnathan porterro 2021-10 Yes [id number] .35mg Take 1 Univers ne (ORTHO 2-21 tablet by ity o f MICRONOR) 00:00: mouth [place] 0.35 mg 00 the Medical tablet morning. Jonnathan porterro 2021-10- No [id number] .35mg Take 1 Univers ne (ORTHO 2-21 -22 tablet by ity of RomotiveOR) 00:00: 00:00 mouth in [place] 0.35 mg 00 :00 the Medical tablet morning. Jonnathan rileyndro 2021-10- No [id number] .35mg Take 1 Univers ne (ORTHO 2-21 01-22 tablet by ity of RomotiveOR) 00:00: 00:00 mouth in [place] 0.35 [...] needed. Max Daily Amount: 300 mg levETIRAcet 2-0 Yes 500mg Q.5D Take [address] [facility] [address] [...] needed. Max Daily Amount: 300 mg metroNIDAZO 2022-0 2022- No 500mg Q.5D Take [address] [facility] (FLAGYL) 2-20 - [facility] 500 MG 00:00: 23:59 (500 mg Medical tablet 00 :00 total) by Center mouth 2 (two) times daily for 7 days First dose 12/18 PM. Start twice daily dosing 12/19 AM. HYDROcodone 2-0 2022- No 1{tbl} Take [address] -acetaminop -18 12- tablet by Maranda pathak (NORCO 00:00: 23:59 mouth Medic al 5-325) 00 :00 every 8 Center 5-325 mg (eight) per tablet hours as needed (Severe pain) for up to 2 days. Max Daily Amount: 3 tablets methylPREDN 2022-0 Yes [id number] Take by Univers ISolone 2-15 mouth ity of (MEDROL, 00:00: SEE-INSTRU [place] BAMBI,) 4 mg 00 CTIONS. Medica l tablets follow Branch package directions methylPREDN 2022-0 Yes [id number] Take by Univers ISolone 2-15 mouth ity of (MEDROL, 00:00: SEE-INSTRU [place] BAMBI,) 4 mg 00 CTIONS. Medica l tablets follow Branch package directions methylPREDN 2022-0 Yes [id number] Take by Univers ISolone 2-15 mouth ity of (MEDROL, 00:00: SEE-INSTRU [place] BAMBI,) 4 mg 00 CTIONS. Medica l tablets follow Branch package directions methylPREDN 2022-0 Yes [id number] Take by Univers ISolone 2-15 mouth ity of (MEDROL, 00:00: SEE-INSTRU [place] BAMBI,) 4 mg 00 CTIONS. Medica l tablets follow Branch package directions methylPREDN 2022-0 Yes [id number] Take by Univers ISolone 2-15 mouth ity of (MEDROL, 00:00: SEE-INSTRU [place] BAMBI,) 4 mg 00 CTIONS. Medica l tablets follow Branch package directions methylPREDN 2022-0 Yes [id number] Take by Univers ISolone 2-15 mouth ity of (MEDROL, 00:00: SEE-INSTRU [place] BAMBI,) 4 mg 00 CTIONS. Medica l tablets follow Branch package directions methylPREDN 2022-0 Yes [id number] Take by Univers ISolone 2-15 mouth ity of (MEDROL, 00:00: SEE-INSTRU [place] BAMBI,) 4 mg 00 CTIONS. Medica l tablets follow Branch package directions methylPREDN 2022-0 Yes [id number] Take by Univers ISolone 2-15 mouth ity of (MEDROL, 00:00: SEE-INSTRU [place] BAMBI,) 4 mg 00 CTIONS. Medica l tablets follow Branch package directions methylPREDN 2022-0 Yes [id number] Take by Univers ISolone 2-15 mouth ity of (MEDROL, 00:00: SEE-INSTRU [place] BAMBI,) 4 mg 00 CTIONS. Medica l tablets follow Branch package directions methylPREDN 2022-0 Yes [id number] Take by Univers ISolone 2-15 mouth ity of (MEDROL, 00:00: SEE-INSTRU [place] BAMBI,) 4 mg 00 CTIONS. Medica l tablets follow Branch package directions methylPREDN 2022-0 Yes [id number] Take by Univers ISolone 2-15 mouth ity of (MEDROL, 00:00: SEE-INSTRU [place] BAMBI,) 4 mg 00 CTIONS. Medica l tablets follow Branch package directions methylPREDN 2022-0 Yes [id number] Take by Univers ISolone 2-15 mouth ity of (MEDROL, 00:00: SEE-INSTRU [place] BAMBI,) 4 mg 00 CTIONS. Medica l tablets follow Branch package directions methylPREDN 2022-0 Yes [id number] Take by Univers ISolone 2-15 mouth ity of (MEDROL, 00:00: SEE-INSTRU [place] BAMBI,) 4 mg 00 CTIONS. Medica l tablets follow Branch package directions methylPREDN 2022-0 Yes [id number] Take by Univers ISolone 2-15 mouth ity of (MEDROL, 00:00: SEE-INSTRU [place] BAMBI,) 4 mg 00 CTIONS. Medica l tablets follow Branch package directions methylPREDN 2022-0 Yes [id number] Take by Univers ISolone 2-15 mouth ity of (MEDROL, 00:00: SEE-INSTRU [place] BAMBI,) 4 mg 00 CTIONS. Medica l tablets follow Branch package directions methylPREDN 2022-0 Yes [id number] Take by Univers ISolone 2-15 mouth ity of (MEDROL, 00:00: SEE-INSTRU [place] BAMBI,) 4 mg 00 CTIONS. Medica l tablets follow Branch package directions methylPREDN 2022-0 Yes [id number] Take by Univers ISolone 2-15 mouth ity of (MEDROL, 00:00: SEE-INSTRU [place] BAMBI,) 4 mg 00 CTIONS. Medica l tablets follow Branch package directions methylPREDN 2022-0 Yes [id number] Take by Univers ISolone 2-15 mouth ity of (MEDROL, 00:00: SEE-INSTRU [place] BAMBI,) 4 mg 00 CTIONS. Medica l tablets follow Branch package directions methylPREDN 2022-0 Yes [id number] Take by Univers ISolone 2-15 mouth ity of (MEDROL, 00:00: SEE-INSTRU [place] BAMBI,) 4 mg 00 CTIONS. Medica l tablets follow Branch package directions methylPREDN 2022-0 Yes [id number] Take by Univers ISolone 2-15 mouth ity of (MEDROL, 00:00: SEE-INSTRU [place] BAMBI,) 4 mg 00 CTIONS. Medica l tablets follow Branch package directions methylPREDN 2022-0 Yes [id number] Take by Univers ISolone 2-15 mouth ity of (MEDROL, 00:00: SEE-INSTRU [place] BAMBI,) 4 mg 00 CTIONS. Medica l tablets follow Branch package directions methylPREDN 2022-0 Yes [id number] Take by Univers ISolone 2-15 mouth ity of (MEDROL, 00:00: SEE-INSTRU [place] BAMBI,) 4 mg 00 CTIONS. Medica l tablets follow Branch package directions methylPREDN 2022-0 Yes [id number] Take by Univers ISolone 2-15 mouth ity of (MEDROL, 00:00: SEE-INSTRU [place] BAMBI,) 4 mg 00 CTIONS. Medica l tablets follow Branch package directions methylPREDN 2022-0 Yes [id number] Take by Univers ISolone 2-15 mouth ity of (MEDROL, 00:00: SEE-INSTRU [place] BAMBI,) 4 mg 00 CTIONS. Medica l tablets follow Branch package directions methylPREDN 2022-0 Yes [id number] Take by Univers ISolone 2-15 mouth ity of (MEDROL, 00:00: SEE-INSTRU [place]AMBI,) 4 mg 00 CTIONS. Medica l tablets follow Branch package directions methylPREDN 2022-0 Yes [id number] Take by Univers ISolone 2-15 mouth ity of (MEDROL, 00:00: SEE-INSTRU [place] BAMBI,) 4 mg 00 CTIONS. Medica l tablets follow Branch package directions methylPREDN 2021-0 Yes [id number] Take by Univers ISolone 2-15 mouth ity of (MEDROL, 00:00: SEE-INSTRU [place] BAMBI,) 4 mg 00 CTIONS. Medica l tablets follow Branch package directions methylPREDN 2021-0 Yes [id number] Take by Univers ISolone 2-15 mouth ity of (MEDROL, 00:00: SEE-INSTRU [place] BAMBI,) 4 mg 00 CTIONS. Medica l tablets follow Branch package directions methylPREDN 2021-0 Yes [id number] Take by Univers ISolone 2-15 mouth ity of (MEDROL, 00:00: SEE-INSTRU [place] BAMBI,) 4 mg 00 CTIONS. Medica l tablets follow Branch package directions methylPREDN 0 2- No [id number] Take by Univers ISolone 2-15 -21 mouth ity of (MEDROL, 00:00: 05:59 [place],) 4 mg 00 :00 CTIONS for Med ical tablets 5 days. Branch follow package directions methylPREDN 2021-0 2- No [id number] Take by Univers ISolone 2-15 -15 mouth ity of (MEDROL, 00:00: 00:00 [place]IN[place] BAMBI,) 4 mg 00 :00 CTIONS for Med ical tablets 5 days. Branch follow package directions omeprazole 2021-2021- No [id number] 40mg Take 1 Univers 40 mg 12-12- capsule by ity of capsule 00:00: 05:59 mouth [place] 00 :00 daily for Medical 14 days. Branch omeprazole 2021-2021- No [id number] 40mg Take 1 Univers 40 mg -09 01- capsule by ity of capsule 00:00: 05:59 mouth [place] 00 :00 daily for Medical 14 days. Branch omeprazole 2021-0 2021- No [id number] 40mg Take 1 Univers 40 mg -09 01- capsule by ity of capsule 00:00: 05:59 mouth [place] 00 :00 daily for Medical 14 days. Branch omeprazole 2021-2021- No [id number] 40mg Take 1 Univers 40 mg 12-12 capsule by ity of capsule 00:00: 05:59 mouth [place] 00 :00 daily for Medical 14 days. Branch omeprazole 2021- No [id number] 40mg Take 1 Univers 40 mg 12-12 capsule by ity of capsule 00:00: 05:59 mouth [place] 00 :00 daily for Medical 14 days. Branch bromphenira 2021- No [id number] 10mL Take 10 mL Univers mine-pseudo 12-12 by mouth 4 i ty of ephedrine-D 00:00: 05:59 (four) [place] M (BROMFED 00 :00 times Medical DM) 2-30-10 daily as Bran ch mg/5 mL needed for syrup Congestion /Allergies for up to 10 days. ondansetron No [id number] 4mg Take 1 Univers (ZOFRAN) 4 12-12 tablet by ity of mg tablet 00:00: 05:59 mouth [place] 00 :00 every 8 Medical (eight) Branch hours as needed for Nausea and Vomiting (N/V) for up to 10 days. ciprofloxac 2021- No [id number] 4[drp] Place 4 Univers in-dexameth 12-12 [id number] Drops in it y of asone 00:00: 05:59 right ear [place] (CIPRODEX) 00 :00 2 (two) Medica l 0.3-0.1 % times Branch otic drops daily for 10 days. ibuprofen 2021- No [id number] 600mg Take 1 Univers 600 mg 12-12 [id number] tablet by ity of tablet 00:00: 05:59 mouth [place] 00 :00 every 6 Medical (six) Branch hours as needed for Pain (scale 4-6) for up to 10 days. bromphenira 2021- No [id number] 10mL Take 10 mL Univers mine-pseudo 12-12 by mouth 4 i ty of ephedrine-D 00:00: 05:59 (four) [place] (BROMFED 00 :00 times Medical DM) 2-30-10 daily as Bran ch mg/5 mL needed for syrup Congestion /Allergies for up to 10 days. ondansetron 2021- No [id number] 4mg Take 1 Univers (ZOFRAN) 4 12-12 tablet by ity of mg tablet 00:00: 05:59 mouth [place] 00 :00 every 8 Medical (eight) Branch hours as needed for Nausea and Vomiting (N/V) for up to 10 days. ciprofloxac 2021- No [id number] 4[drp] Place 4 Univers in-dexameth 12-12 [id number] Drops in it y of asone 00:00: 05:59 right ear [place] (CIPRODEX) 00 :00 2 (two) Medica l 0.3-0.1 % times Branch otic drops daily for 10 days. ibuprofen 2021- No [id number] 600mg Take 1 Univers 600 mg 12-12 [id number] tablet by ity of tablet 00:00: 05:59 mouth [place] 00 :00 every 6 Medical (six) Branch hours as needed for Pain (scale 4-6) for up to 10 days. bromphenira 2021- No [id number] 10mL Take 10 mL Univers mine-pseudo 12-12 by mouth 4 i ty of ephedrine-D 00:00: 05:59 (four) [place] M (BROMFED 00 :00 times Medical DM) 2-30-10 daily as Bran ch mg/5 mL needed for syrup Congestion /Allergies for up to 10 days. ondansetron 2021- No [id number] 4mg Take 1 [facility] (ZOFRAN) 4 12-12 tablet by ity of mg tablet 00:00: 05:59 mouth [place] 00 :00 every 8 Medical (eight) Branch hours as needed for Nausea and Vomiting (N/V) for up to 10 days. ciprofloxac 2021- No [id number] 4[drp] Place 4 [facility] in-dexameth 12-12 02430 Drops in it y of asone 00:00: 05:59 right ear [place] (CIPRODEX) 00 :00 2 (two) Medica l 0.3-0.1 % times Branch otic drops daily for 10 days. ibuprofen 2021- No [id number] 600mg Take 1 [facility] 600 mg 12-12 [id number] tablet by ity of tablet 00:00: 05:59 mouth [place] 00 :00 every 6 Medical (six) Branch hours as needed for Pain (scale 4-6) for up to 10 days. bromphenira 2021- No [id number] 10mL Take 10 mL [facility] mine-pseudo 12-12 by mouth 4 i ty of ephedrine-D 00:00: 05:59 (four) [place] as M (BROMFED 00 :00 times Medical DM) 2-30-10 daily as Bran ch mg/5 mL needed for syrup Congestion /Allergies for up to 10 days. ondansetron 2021- No [id number] 4mg Take 1 [facility] (ZOFRAN) 4 12-12 tablet by ity of mg tablet 00:00: 05:59 mouth [place] 00 :00 every 8 Medical (eight) Branch hours as needed for Nausea and Vomiting (N/V) for up to 10 days. ciprofloxac 2021- No [id number] 4[drp] Place 4 [facility] in-dexameth 12-12 [id number] Drops in it y of asone 00:00: 05:59 right ear [place] (CIPRODEX) 00 :00 2 (two) Medica l 0.3-0.1 % times Branch otic drops daily for 10 days. ibuprofen 2021- No [id number] 600mg Take 1 [facility] 600 mg 12-12 [id number] tablet by ity of tablet 00:00: 05:59 mouth [place] 00 :00 every 6 Medical (six) Branch hours as needed for Pain (scale 4-6) for up to 10 days. bromphenira 2021- No [id number] 10mL Take 10 mL [facility] mine-pseudo 12-12 by mouth 4 i ty of ephedrine-D 00:00: 05:59 (four) [place] [facility] (BROMFED 00 :00 times Medical DM) 2-30-10 daily as Bran ch mg/5 mL needed for syrup Congestion /Allergies for up to 10 days. ondansetron 2021- No [id number] 4mg Take 1 [facility] (ZOFRAN) 4 12-12 tablet by ity of mg tablet 00:00: 05:59 mouth [place] 00 :00 every 8 Medical (eight) Branch hours as needed for Nausea and Vomiting (N/V) for up to 10 days. ciprofloxac 2021- No [id number] 4[drp] Place 4 [facility] in-dexameth 12-12 [id number] Drops in it y of asone 00:00: 05:59 right ear [place] (CIPRODEX) 00 :00 2 (two) Medica l 0.3-0.1 % times Branch otic drops daily for 10 days. ibuprofen 2021- No [id number] 600mg Take 1 [facility] 600 mg 12-12 [id number] tablet by ity of tablet 00:00: 05:59 [...] [place] ORAL) Medical Branch cetirizine 2020-10 Yes [id number] 10mg Take 1 [facility] (ZYRTEC) 10 0-01 tablet by ity of mg tablet 00:00: mouth [place] 00 daily. Medical Branch azelastine 2020-10 Yes [id number] 1{spray Use 1 [facility] 137 mcg 0-01 } [place] in ity of (0.1 %) 00:00: each [place] nasal spray 00 nostril 2 Med ical (two) Branch times daily. Use in each nostril as directed fluticasone 2020-10 Yes [id number] 1{spray Use 1 [facility] propionate 0-01 } [place] in ity o f 50 00:00: each [place] mcg/actuati 00 nostril Medic al on nasal daily. Branch spray cetirizine 2020-10 Yes [id number] 10mg Take 1 [facility] (ZYRTEC) 10 0-01 tablet by ity of mg tablet 00:00: mouth [place] 00 daily. Medical Branch azelastine 2020-10 Yes [id number] 1{spray Use 1 [facility] 137 mcg 0-01 } [place] in ity of (0.1 %) 00:00: each [place] nasal spray 00 nostril 2 Med ical (two) Branch times daily. Use in each nostril as directed fluticasone 2020-10 Yes [id number] 1{spray Use 1 [facility] propionate 0-01 } [place] in ity o f 50 00:00: each [place] mcg/actuati 00 nostril Medic al on nasal daily. Branch spray cetirizine 2020-10 Yes [id number] 10mg Take 1 [facility] (ZYRTEC) 10 0-01 tablet by ity of mg tablet 00:00: mouth [place] 00 daily. Medical Branch azelastine 2020-10 Yes [id number] 1{spray Use 1 [facility] 137 mcg 0-01 } [place] in ity of (0.1 %) 00:00: each [place] nasal spray 00 nostril 2 Med ical (two) Branch times daily. Use in each nostril as directed fluticasone 2020-10 Yes [id number] 1{spray Use 1 [facility] propionate 0-01 } [place] in ity o f 50 00:00: each [place] mcg/actuati 00 nostril Medic al on nasal daily. Branch spray cetirizine 2020-10 Yes [id number] 10mg Take 1 [facility] (ZYRTEC) 10 0-01 tablet by ity of mg tablet 00:00: mouth [place] 00 daily. Medical Branch azelastine 2020-10 Yes [id number] 1{spray Use 1 [facility] 137 mcg 0-01 } [place] in ity of (0.1 %) 00:00: each [place] nasal spray 00 nostril 2 Med ical (two) Branch times daily. Use in each nostril as directed fluticasone 2020-10 Yes [id number] 1{spray Use 1 [facility] propionate 0-01 } [place] in ity o f 50 00:00: each [place] mcg/actuati 00 nostril Medic al on nasal daily. Branch spray cetirizine 2020-10 Yes [id number] 10mg Take 1 [facility] (ZYRTEC) 10 0-01 tablet by ity of mg tablet 00:00: mouth [place] 00 daily. Medical Branch azelastine 2020-10 Yes [id number] 1{spray Use 1 [facility] 137 mcg 0-01 } [place] in ity of (0.1 %) 00:00: each [place] nasal spray 00 nostril 2 Med ical (two) Branch times daily. Use in each nostril as directed fluticasone 2020-10 Yes [id number] 1{spray Use 1 [facility] propionate 0-01 } [place] in ity o f 50 00:00: each [place] mcg/actuati 00 nostril Medic al on nasal daily. Branch spray cetirizine 2020-10 Yes [id number] 10mg Take 1 [facility] (ZYRTEC) 10 0-01 tablet by ity of mg tablet 00:00: mouth [place] 00 daily. Medical Branch azelastine 2020-10 Yes [id number] 1{spray Use 1 [facility] 137 mcg 0-01 } [place] in ity of (0.1 %) 00:00: each [place] nasal spray 00 nostril 2 Med ical (two) Branch times daily. Use in each nostril as directed fluticasone 2020-10 Yes [id number] 1{spray Use 1 [facility] propionate 0-01 } [place] in ity o f 50 00:00: each [place] mcg/actuati 00 nostril Medic al on nasal daily. Branch spray cetirizine 2020-10 Yes [id number] 10mg Take 1 [facility] (ZYRTEC) 10 0-01 tablet by ity of mg tablet 00:00: mouth [place] 00 daily. Medical Branch azelastine 2020-10 Yes [id number] 1{spray Use 1 [facility] 137 mcg 0-01 } [place] in ity of (0.1 %) 00:00: each [place] nasal spray 00 nostril 2 Med ical (two) Branch times daily. Use in each nostril as directed fluticasone 2020-10 Yes [id number] 1{spray Use 1 [facility] propionate 0-01 } [place] in ity o f 50 00:00: each [place] mcg/actuati 00 nostril Medic al on nasal daily. Branch spray cetirizine 2020-10 Yes [id number] 10mg Take 1 [facility] (ZYRTEC) 10 0-01 tablet by ity of mg tablet 00:00: mouth [place] 00 daily. Medical Branch azelastine 2020-10 Yes [id number] 1{spray Use 1 [facility] 137 mcg 0-01 } [place] in ity of (0.1 %) 00:00: each [place] nasal spray 00 nostril 2 Med ical (two) Branch times daily. Use in each nostril as directed fluticasone 2020-10 Yes [id number] 1{spray Use 1 [facility] propionate 0-01 } [place] in ity o f 50 00:00: each [place] mcg/actuati 00 nostril Medic al on nasal daily. Branch spray cetirizine 2020-10 Yes [id number] 10mg Take 1 [facility] (ZYRTEC) 10 0-01 tablet by ity of mg tablet 00:00: mouth [place] 00 daily. Medical Branch azelastine 2020-10 Yes [id number] 1{spray Use 1 [facility] 137 mcg 0-01 } [place] in ity of (0.1 %) 00:00: each [place] nasal spray 00 nostril 2 Med ical (two) Branch times daily. Use in each nostril as directed fluticasone 2020-10 Yes [id number] 1{spray Use 1 [facility] propionate 0-01 } [place] in ity o f 50 00:00: each [place] mcg/actuati 00 nostril Medic al on nasal daily. Branch spray cetirizine 2020-10 Yes [id number] 10mg Take 1 [facility] (ZYRTEC) 10 0-01 tablet by ity of mg tablet 00:00: mouth [place] 00 daily. Medical Branch azelastine 2020-10 Yes [id number] 1{spray Use 1 [facility] 137 mcg 0-01 } [place] in ity of (0.1 %) 00:00: each [place] nasal spray 00 nostril 2 Med ical (two) Branch times daily. Use in each nostril as directed fluticasone 2020-10 Yes [id number] 1{spray Use 1 [facility] propionate 0-01 } [place] in ity o f 50 00:00: each [place] mcg/actuati 00 nostril Medic al on nasal daily. Branch spray cetirizine 2020-10 Yes [id number] 10mg Take 1 [facility] (ZYRTEC) 10 0-01 tablet by ity of mg tablet 00:00: mouth [place] 00 daily. Medical Branch azelastine 2020-10 Yes [id number] 1{spray Use 1 [facility] 137 mcg 0-01 } [place] in ity of (0.1 %) 00:00: each [place] nasal spray 00 nostril 2 Med ical (two) Branch times daily. Use in each nostril as directed fluticasone 2020-10 Yes [id number] 1{spray Use 1 [facility] propionate 0-01 } [place] in ity o f 50 00:00: each [place] mcg/actuati 00 nostril Medic al on nasal daily. Branch spray cetirizine 2020-10 Yes [id number] 10mg Take 1 [facility] (ZYRTEC) 10 0-01 tablet by ity of mg tablet 00:00: mouth [place] 00 daily. Medical Branch azelastine 2020-10 Yes [id number] 1{spray Use 1 [facility] 137 mcg 0-01 } [place] in ity of (0.1 %) 00:00: each [place] nasal spray 00 nostril 2 Med ical (two) Branch times daily. Use in each nostril as directed fluticasone 2020-10 Yes [id number] 1{spray Use 1 [facility] propionate 0-01 } [place] in ity o f 50 00:00: each [place] mcg/actuati 00 nostril Medic al on nasal daily. Branch spray cetirizine 2020-10 Yes [id number] 10mg Take 1 [facility] (ZYRTEC) 10 0-01 tablet by ity of mg tablet 00:00: mouth [place] 00 daily. Medical Branch azelastine 2020-10 Yes [id number] 1{spray Use 1 [facility] 137 mcg 0-01 } [place] in ity of (0.1 %) 00:00: each [place] nasal spray 00 nostril 2 Med ical (two) Branch times daily. Use in each nostril as directed fluticasone 2020-10 Yes [id number] 1{spray Use 1 [facility] propionate 0-01 } [place] in ity o f 50 00:00: each [place] mcg/actuati 00 nostril Medic al on nasal daily. Branch spray cetirizine 2020-10 Yes [id number] 10mg Take 1 [facility] (ZYRTEC) 10 0-01 tablet by ity of mg tablet 00:00: mouth [place] 00 daily. Medical Branch azelastine 2020-10 Yes [id number] 1{spray Use 1 [facility] 137 mcg 0-01 } [place] in ity of (0.1 %) 00:00: each [place] nasal spray 00 nostril 2 Med ical (two) Branch times daily. Use in each nostril as directed fluticasone 2020-10 Yes [id number] 1{spray Use 1 [facility] propionate 0-01 } [place] in ity o f 50 00:00: each [place] mcg/actuati 00 nostril Medic al on nasal daily. Branch spray cetirizine 2020-10 Yes [id number] 10mg Take 1 [facility] (ZYRTEC) 10 0-01 tablet by ity of mg tablet 00:00: mouth [place] 00 daily. Medical Branch azelastine 2020-10 Yes [id number] 1{spray Use 1 [facility] 137 mcg 0-01 } [place] in ity of (0.1 %) 00:00: each [place] nasal spray 00 nostril 2 Med ical (two) Branch times daily. Use in each nostril as directed fluticasone 2020-10 Yes [id number] 1{spray Use 1 [facility] propionate 0-01 } [place] in ity o f 50 00:00: each [place] mcg/actuati 00 nostril Medic al on nasal daily. Branch spray cetirizine 2020-10 Yes [id number] 10mg Take 1 [facility] (ZYRTEC) 10 0-01 tablet by ity of mg tablet 00:00: mouth [place] 00 daily. Medical Branch azelastine 2020-10 Yes [id number] 1{spray Use 1 [facility] 137 mcg 0-01 } [place] in ity of (0.1 %) 00:00: each [place] nasal spray 00 nostril 2 Med ical (two) Branch times daily. Use in each nostril as directed fluticasone 2020-10 Yes [id number] 1{spray Use 1 [facility] propionate 0-01 } [place] in ity o f 50 00:00: each [place] mcg/actuati 00 nostril Medic al on nasal daily. Branch spray cetirizine 2020-10 Yes [id number] 10mg Take 1 [facility] (ZYRTEC) 10 0-01 tablet by ity of mg tablet 00:00: mouth [place] 00 daily. Medical Branch azelastine 2020-10 Yes [id number] 1{spray Use 1 [facility] 137 mcg 0-01 } [place] in ity of (0.1 %) 00:00: each [place] nasal spray 00 nostril 2 Med ical (two) Branch times daily. Use in each nostril as directed fluticasone 2020-10 Yes [id number] 1{spray Use 1 [facility] propionate 0-01 } [place] in ity o f 50 00:00: each [place] mcg/actuati 00 nostril Medic al on nasal daily. Branch spray cetirizine 2020-10 Yes [id number] 10mg Take 1 [facility] (ZYRTEC) 10 0-01 tablet by ity of mg tablet 00:00: mouth [place] 00 daily. Medical Branch azelastine 2020-10 Yes [id number] 1{spray Use 1 [facility] 137 mcg 0-01 } [place] in ity of (0.1 %) 00:00: each [place] nasal spray 00 nostril 2 Med ical (two) Branch times daily. Use in each nostril as directed fluticasone 2020-10 Yes [id number] 1{spray Use 1 [facility] propionate 0-01 } [place] in ity o f 50 00:00: each [place] mcg/actuati 00 nostril Medic al on nasal daily. Branch spray cetirizine 2020-10 Yes [id number] 10mg Take 1 [facility] (ZYRTEC) 10 0-01 tablet by ity of mg tablet 00:00: mouth [place] 00 daily. Medical Branch azelastine 2020-10 Yes [id number] 1{spray Use 1 [facility] 137 mcg 0-01 } [place] in ity of (0.1 %) 00:00: each [place] nasal spray 00 nostril 2 Med ical (two) Branch times daily. Use in each nostril as directed fluticasone 2020-10 Yes [id number] 1{spray Use 1 [facility] propionate 0-01 } [place] in ity o f 50 00:00: each [place] mcg/actuati 00 nostril Medic al on nasal daily. Branch spray cetirizine 2020-10 Yes [id number] 10mg Take 1 [facility] (ZYRTEC) 10 0-01 tablet by ity of mg tablet 00:00: mouth [place] 00 daily. Medical Branch azelastine 2020-10 Yes [id number] 1{spray Use 1 [facility] 137 mcg 0-01 } [place] in ity of (0.1 %) 00:00: each [place] nasal spray 00 nostril 2 Med ical (two) Branch times daily. Use in each nostril as directed fluticasone 2020-10 Yes [id number] 1{spray Use 1 [facility] propionate 0-01 } [place] in ity o f 50 00:00: each [place] mcg/actuati 00 nostril Medic al on nasal daily. Branch spray cetirizine 2020-10 Yes [id number] 10mg Take 1 [facility] (ZYRTEC) 10 0-01 tablet by ity of mg tablet 00:00: mouth [place] 00 daily. Medical Branch azelastine 2020-10 Yes [id number] 1{spray Use 1 [facility] 137 mcg 0-01 } [place] in ity of (0.1 %) 00:00: each [place] nasal spray 00 nostril 2 Med ical (two) Branch times daily. Use in each nostril as directed fluticasone 2020-10 Yes [id number] 1{spray Use 1 [facility] propionate 0-01 } [place] in ity o f 50 00:00: each [place] mcg/actuati 00 nostril Medic al on nasal daily. Branch spray cetirizine 2020-10 Yes [id number] 10mg Take 1 [facility] n[facility] (ZYRTEC) 10 0-01 tablet by ity of mg tablet 00:00: mouth [place] 00 daily. Medical Branch azelastine 2020-10 Yes [id number] 1{spray Use 1 [facility] 137 mcg 0-01 } [place] in ity of (0.1 %) 00:00: each [place] nasal spray 00 nostril 2 Med ical (two) Branch times daily. Use in each nostril as directed fluticasone 2020-10 Yes [id number] 1{spray Use 1 [facility] propionate 0-01 } [place] in ity o f 50 00:00: each [place] mcg/actuati 00 nostril Medic al on nasal daily. Branch spray cetirizine 2020-10 Yes [id number] 10mg Take 1 [facility] n[facility] (ZYRTEC) 10 0-01 tablet by ity of mg tablet 00:00: mouth [place] 00 daily. Medical Branch azelastine 2020-10 Yes [id number] 1{spray Use 1 [facility] 137 mcg 0-01 } [place] in ity of (0.1 %) 00:00: each [place] nasal spray 00 nostril 2 Med ical (two) Branch times daily. Use in each nostril as directed fluticasone 2020-10 Yes [id number] 1{spray Use 1 [facility] propionate 0-01 } [place] in ity o f 50 00:00: each [place] mcg/actuati 00 nostril Medic al on nasal daily. Branch spray cetirizine 2020-10 Yes [id number] 10mg Take 1 [facility] n[facility] (ZYRTEC) 10 0-01 tablet by ity of mg tablet 00:00: mouth [place] 00 daily. Medical Branch azelastine 2020-10 Yes [id number] 1{spray Use 1 [facility] 137 mcg 0-01 } [place] in ity of (0.1 %) 00:00: each [place] nasal spray 00 nostril 2 Med ical (two) Branch times daily. Use in each nostril as directed fluticasone 2020-10 Yes [id number] 1{spray Use 1 [facility] propionate 0-01 } [place] in ity o f 50 00:00: each [place] mcg/actuati 00 nostril Medic al on nasal daily. Branch spray cetirizine 2020-10 Yes [id number] 10mg Take 1 [facility] n[facility] (ZYRTEC) 10 0-01 tablet by ity of mg tablet 00:00: mouth [place] 00 daily. Medical Branch azelastine 2020-10 Yes [id number] 1{spray Use 1 [facility] 137 mcg 0-01 } [place] in ity of (0.1 %) 00:00: each [place] nasal spray 00 nostril 2 Med ical (two) Branch times daily. Use in each nostril as directed fluticasone 2020-10 Yes [id number] 1{spray Use 1 [facility] propionate 0-01 } [place] in ity o f 50 00:00: each [place] mcg/actuati 00 nostril Medic al on nasal daily. Branch spray cetirizine 2020-10 Yes [id number] 10mg Take 1 [facility] n[facility] (ZYRTEC) 10 0-01 tablet by ity of mg tablet 00:00: mouth [place] 00 daily. Medical Branch azelastine 2020-10 Yes [id number] 1{spray Use 1 [facility] 137 mcg 0-01 } [place] in ity of (0.1 %) 00:00: each [place] nasal spray 00 nostril 2 Med ical (two) Branch times daily. Use in each nostril as directed fluticasone 2020-10 Yes [id number] 1{spray Use 1 [facility] propionate 0-01 } [place] in ity o f 50 00:00: each [place] mcg/actuati 00 nostril Medic al on nasal daily. Branch spray cetirizine 2020-10 Yes [id number] 10mg Take 1 [facility] (ZYRTEC) 10 0-01 tablet by ity of mg tablet 00:00: mouth [place] 00 daily. Medical Branch azelastine 2020-10 Yes [id number] 1{spray Use 1 [facility] 137 mcg 0-01 } [place] in ity of (0.1 %) 00:00: each [place] nasal spray 00 nostril 2 Med ical (two) Branch times daily. Use in each nostril as directed fluticasone 2020-10 Yes [id number] 1{spray Use 1 [facility] propionate 0-01 } [place] in ity o f 50 00:00: each [place] mcg/actuati 00 nostril Medic al on nasal daily. Branch spray cetirizine 2020-10 Yes [id number] 10mg Take 1 [facility] n[facility] (ZYRTEC) 10 0-01 tablet by ity of mg tablet 00:00: mouth [place] 00 daily. Medical Branch azelastine 2020-10 Yes [id number] 1{spray Use 1 [facility] 137 mcg 0-01 } [place] in ity of (0.1 %) 00:00: each [place] nasal spray 00 nostril 2 Med ical (two) Branch times daily. Use in each nostril as directed fluticasone 2020-10 Yes [id number] 1{spray Use 1 [facility] propionate 0-01 } [place] in ity o f 50 00:00: each [place] mcg/actuati 00 nostril Medic al on nasal daily. Branch spray cetirizine 2020-10 Yes [id number] 10mg Take 1 [facility] (ZYRTEC) 10 0-01 tablet by ity of mg tablet 00:00: mouth [place] 00 daily. Medical Branch azelastine 2020-10 Yes [id number] 1{spray Use 1 [facility] 137 mcg 0-01 } [place] in ity of (0.1 %) 00:00: each [place] nasal spray 00 nostril 2 Med ical (two) Branch times daily. Use in each nostril as directed fluticasone 2020-10 Yes [id number] 1{spray Use 1 [facility] propionate 0-01 } [place] in ity o f 50 00:00: each [place] mcg/actuati 00 nostril Medic al on nasal daily. Branch spray cetirizine 2020-10 Yes [id number] 10mg Take 1 [facility] n[facility] (ZYRTEC) 10 0-01 tablet by ity of mg tablet 00:00: mouth [place] 00 daily. Medical Branch azelastine 2020-10 Yes [id number] 1{spray Use 1 [facility] 137 mcg 0-01 } [place] in ity of (0.1 %) 00:00: each [place] nasal spray 00 nostril 2 Med ical (two) Branch times daily. Use in each nostril as directed fluticasone 2020-10 Yes [id number] 1{spray Use 1 [facility] propionate 0-01 } [place] in ity o f 50 00:00: each [place] mcg/actuati 00 nostril Medic al on nasal daily. Branch spray cetirizine 2020-10 Yes [id number] 10mg Take 1 [facility] n[facility] (ZYRTEC) 10 0-01 tablet by ity of mg tablet 00:00: mouth [place] 00 daily. Medical Branch azelastine 2020-10 Yes [id number] 1{spray Use 1 [facility] 137 mcg 0-01 } [place] in ity of (0.1 %) 00:00: each [place] nasal spray 00 nostril 2 Med ical (two) Branch times daily. Use in each nostril as directed fluticasone 2020-10 Yes [id number] 1{spray Use 1 [facility] propionate 0-01 } [place] in ity o f 50 00:00: each [place] mcg/actuati 00 nostril Medic al on nasal daily. Branch spray cetirizine 2020-10 Yes [id number] 10mg Take 1 [facility] n[facility] (ZYRTEC) 10 0-01 tablet by ity of mg tablet 00:00: mouth [place] 00 daily. Medical Branch azelastine 2020-10 Yes [id number] 1{spray Use 1 [facility] 137 mcg 0-01 } [place] in ity of (0.1 %) 00:00: each [place] nasal spray 00 nostril 2 Med ical (two) Branch times daily. Use in each nostril as directed fluticasone 2020-10 Yes [id number] 1{spray Use 1 [facility] propionate 0-01 } [place] in ity o f 50 00:00: each [place] mcg/actuati 00 nostril Medic al on nasal daily. Branch spray bromphenira 2020-10- No [id number] 5mL Take 5 mL [facility] mine-pseudo 0-10 30-14 by mouth 4 i ty of ephedrine-D 00:00: 00:00 (four) [place] as M (BROMFED 00 :00 times Medical DM) 2-30-10 daily as Bran ch mg/5 mL needed for syrup Congestion /Allergies . ibuprofen 2021- No [id number] 600mg Take 1 [facility] 600 mg 07-21 tablet by ity of tablet 00:00: 00:00 mouth [place] 00 :00 every 6 Medical (six) Branch hours as needed for Pain (scale 4-6). benzonatate Yes [id number] 100mg Take 1 [facility] 100 mg 9-10 capsule by ity of capsule 00:00: mouth 3 00 (three) Medical times Branch daily as needed for Cough. benzonatate Yes [id number] 100mg Take 1 [facility] 100 mg 9-10 capsule by ity of capsule 00:00: mouth 3 00 (three) Medical times Branch daily as needed for Cough. benzonatate Yes [id number] 100mg Take 1 [facility] 100 mg 9-10 capsule by ity of capsule 00:00: mouth 3 [place] 00 (three) Medical times Branch daily as needed for Cough. benzonatate Yes [id number] 100mg Take 1 [facility] 100 mg 9-10 capsule by ity of capsule 00:00: mouth 3 00 (three) Medical times Branch daily as needed for Cough. benzonatate Yes [id number] 100mg Take 1 [facility] 100 mg 9-10 capsule by ity of capsule 00:00: mouth (three) Medical times Branch daily as needed for Cough. benzonatate 1-0 Yes [id number] 100mg Take 1 [facility] 100 mg 9-10 capsule by ity of capsule 00:00: mouth (three) Medical times Branch daily as needed for Cough. benzonatate 2020-0 Yes [id number] 100mg Take 1 [facility] 100 mg 9-10 capsule by ity of capsule 00:00: mouth (three) Medical times Branch daily as needed for Cough. benzonatate 2020-0 Yes [id number] 100mg Take 1 [facility] 100 mg 9-10 capsule by ity of capsule 00:00: mouth (three) Medical times Branch daily as needed for Cough. benzonatate 2020-0 Yes [id number] 100mg Take 1 [facility] 100 mg 9-10 capsule by ity of capsule 00:00: mouth (three) Medical times Branch daily as needed for Cough. benzonatate 2020-0 Yes [id number] 100mg Take 1 [facility] 100 mg 9-10 capsule by ity of capsule 00:00: mouth (three) Medical times Branch daily as needed for Cough. benzonatate 2020-0 Yes [id number] 100mg Take 1 [facility] 100 mg 9-10 capsule by ity of capsule 00:00: mouth (three) Medical times Branch daily as needed for Cough. benzonatate 2020-0 Yes [id number] 100mg Take 1 [facility] 100 mg 9-10 capsule by ity of capsule 00:00: mouth (three) Medical times Branch daily as needed for Cough. benzonatate 2020-0 Yes [id number] 100mg Take 1 [facility] 100 mg 9-10 capsule by ity of capsule 00:00: mouth (three) Medical times Branch daily as needed for Cough. benzonatate 1-0 Yes [id number] 100mg Take 1 [facility] 100 mg 9-10 capsule by ity of capsule 00:00: mouth (three) Medical times Branch daily as needed for Cough. benzonatate 2020-0 Yes [id number] 100mg Take 1 [facility] 100 mg 9-10 capsule by ity of capsule 00:00: mouth (three) Medical times Branch daily as needed for Cough. benzonatate 2020-0 Yes [id number] 100mg Take 1 [facility] 100 mg 9-10 capsule by ity of capsule 00:00: mouth (three) Medical times Branch daily as needed for Cough. benzonatate 2020-0 Yes [id number] 100mg Take 1 [facility] 100 mg 9-10 capsule by ity of capsule 00:00: mouth (three) Medical times Branch daily as needed for Cough. benzonatate 2020-0 Yes [id number] 100mg Take 1 [facility] 100 mg 9-10 capsule by ity of capsule 00:00: mouth (three) Medical times Branch daily as needed for Cough. benzonatate 2020-0 Yes [id number] 100mg Take 1 [facility] 100 mg 9-10 capsule by ity of capsule 00:00: mouth (three) Medical times Branch daily as needed for Cough. benzonatate 2020-0 Yes [id number] 100mg Take 1 [facility] 100 mg 9-10 capsule by ity of capsule 00:00: mouth (three) Medical times Branch daily as needed for Cough. benzonatate 2020-0 Yes [id number] 100mg Take 1 [facility] 100 mg 9-10 capsule by ity of capsule 00:00: mouth (three) Medical times Branch daily as needed for Cough. benzonatate 2020-0 Yes [id number] 100mg Take 1 [facility] 100 mg 9-10 capsule by ity of capsule 00:00: mouth (three) Medical times Branch daily as needed for Cough. benzonatate 2020-0 Yes [id number] 100mg Take 1 [facility] 100 mg 9-10 capsule by ity of capsule 00:00: mouth (three) Medical times Branch daily as needed for Cough. benzonatate 2020-0 Yes [id number] 100mg Take 1 [facility] 100 mg 9-10 capsule by ity of capsule 00:00: mouth (three) Medical times Branch daily as needed for Cough. benzonatate 1-0 Yes [id number] 100mg Take 1 [facility] 100 mg 9-10 capsule by ity of capsule 00:00: mouth (three) Medical times Branch daily as needed for Cough. benzonatate 1-0 Yes [id number] 100mg Take 1 [facility] 100 mg 9-10 capsule by ity of capsule 00:00: mouth 3 (three) Medical times Branch daily as needed for Cough. benzonatate 2021-0 Yes [id number] 100mg Take 1 [facility] 100 mg 9-10 capsule by ity of capsule 00:00: mouth 3 (three) Medical times Branch daily as needed for Cough. benzonatate 2021-0 Yes [id number] 100mg Take 1 [facility] 100 mg 9-10 capsule by [facility] of capsule 00:00: mouth 3 (three) Medical times Branch daily as needed for Cough. benzonatate 2021-0 Yes [id number] 100mg Take 1 [facility] 100 mg 9-10 capsule by [facility] of capsule 00:00: mouth 3 (three) Medical times Branch daily as needed for Cough. benzonatate 2021-0 Yes [id number] 100mg Take 1 [facility] 100 mg 9-10 capsule by [facility] of capsule 00:00: mouth 3 (three) Medical times Branch daily as needed for Cough. benzonatate 1-0 Yes [id number] 100mg Take 1 [facility] 100 mg 9-10 capsule by [facility] of capsule 00:00: mouth 3 (three) Medical times Branch daily as needed for Cough. benzonatate 1-0 Yes [id number] 100mg Take 1 [facility] 100 mg 9-10 capsule by [facility] of capsule 00:00: mouth 3 (three) Medical times Branch daily as needed for Cough. medroxyPROG 2020-0 Yes [id number] Take one [facility] ESTERone 4-03 by mouth ity of (PROVERA) 00:00: days one [place] 10 mg 00 through 10 Medical tablet of each Branch month beginning 02/27/20. medroxyPROG 2020-0 Yes [id number] Take one [facility] ESTERone 4-03 by mouth ity of (PROVERA) 00:00: days one [place] 10 mg 00 through 10 Medical tablet of each Branch month beginning 02/27/20. medroxyPROG 2020-0 Yes [id number] Take one [facility] ESTERone 4-03 by mouth ity of (PROVERA) 00:00: days one [place] 10 mg 00 through 10 Medical tablet of each Branch month beginning 02/27/20. medroxyPROG 2020-0 Yes [id number] Take one [facility] ESTERone 4-03 by mouth ity of (PROVERA) 00:00: days one [place] 10 mg 00 through 10 Medical tablet of each Branch month beginning 02/27/20. medroxyPROG 2020-0 Yes [id number] Take one [facility] ESTERone 4-03 by mouth ity of (PROVERA) 00:00: days one [place] 10 mg 00 through 10 Medical tablet of each Branch month beginning 02/27/20. medroxyPROG 2020-0 Yes [id number] Take one [facility] ESTERone 4-03 by mouth ity of (PROVERA) 00:00: days one [place] 10 mg 00 through 10 Medical tablet of each Branch month beginning 02/27/20. medroxyPROG 2020-0 2021- No [id number] Take one [facility] ESTERone 4-03 12-21 by mouth ity of (PROVERA) 00:00: 00:00 days one [place] 10 mg 00 :00 through 10 Medical tablet of each Branch month beginning 02/27/20. medroxyPROG 2020-0 2021- No [id number] Take one [facility] ESTERone 4-03 12-21 by mouth ity of (PROVERA) 00:00: 00:00 days one [place] 10 mg 00 :00 through 10 Medical tablet of each Branch month beginning 02/27/20. medroxyPROG 2020-0 2021- No [id number] Take one [facility] ESTERone 4-03 12-21 by mouth ity of (PROVERA) 00:00: 00:00 days one [place] 10 mg 00 :00 through 10 Medical tablet of each Branch month beginning 02/27/20. amitriptyli 2020-0 Yes [id number] 25mg Take 1 [facility] ne 25 mg 3-26 tablet by it[facility] of tablet 00:00: mouth at [place] 00 bedtime. Medical Branch metoprolol 2020-0 Yes [id number] 50mg Take 1 [facility] tartrate 50 3-26 tablet by ity of mg tablet 00:00: mouth 2 [place] 00 (two) Medical times Branch daily. amitriptyli 2020-0 Yes [id number] 25mg Take 1 [facility] ne 25 mg 3-26 tablet by ity of tablet 00:00: mouth at [place] 00 bedtime. Medical Branch metoprolol 2020-0 Yes [id number] 50mg Take 1 [facility] tartrate 50 3-26 tablet by ity of mg tablet 00:00: mouth 2 [place] (two) Medical times Branch daily. amitriptyli 2020-0 Yes [id number] 25mg Take 1 [facility] ne 25 mg 3-26 tablet by ity of tablet 00:00: mouth at [place] [address] bedtime. Medical Branch metoprolol 2020-0 Yes [id number] 50mg Take 1 [facility] tartrate 50 3-26 tablet by ity of mg tablet 00:00: mouth 2 [place] (two) Medical times Branch daily. amitriptyli 2020-0 Yes [id number] 25mg Take 1 [facility] ne 25 mg 3-26 tablet by ity of tablet 00:00: mouth at [place] [address] bedtime. Medical Branch metoprolol 2020-0 Yes [id number] 50mg Take 1 [facility] tartrate 50 3-26 tablet by ity of mg tablet 00:00: mouth 2 [place] (two) Medical times Branch daily. amitriptyli 2020-0 Yes [id number] 25mg Take 1 [facility] ne 25 mg 3-26 tablet by ity of tablet 00:00: mouth at [place] [address] bedtime. Medical Branch metoprolol 2020-0 Yes [id number] 50mg Take 1 [facility] tartrate 50 3-26 tablet by ity of mg tablet 00:00: mouth 2 [place] (two) Medical times Branch daily. amitriptyli 2020-0 Yes [id number] 25mg Take 1 [facility] ne 25 mg 3-26 tablet by ity of tablet 00:00: mouth at [place] [address] bedtime. Medical Branch metoprolol 2020-0 Yes [id number] 50mg Take 1 [facility] tartrate 50 3-26 tablet by ity of mg tablet 00:00: mouth 2 [place] (two) Medical times Branch daily. amitriptyli 2020-0 Yes [id number] 25mg Take 1 [facility] ne 25 mg 3-26 tablet by ity of tablet 00:00: mouth at [place] [address] bedtime. Medical Branch metoprolol 2020-0 Yes [id number] 50mg Take 1 [facility] tartrate 50 3-26 tablet by ity of mg tablet 00:00: mouth 2 [place] (two) Medical times Branch daily. amitriptyli 2020-0 Yes [id number] 25mg Take 1 [facility] ne 25 mg 3-26 tablet by ity of tablet 00:00: mouth at [place] [address] bedtime. Medical Branch metoprolol 2020-0 Yes [id number] 50mg Take 1 [facility] tartrate 50 3-26 tablet by ity of mg tablet 00:00: mouth 2 [place] (two) Medical times Branch daily. amitriptyli 2020-0 Yes [id number] 25mg Take 1 [facility] ne 25 mg 3-26 tablet by ity of tablet 00:00: mouth at [place] [address] bedtime. Medical Branch metoprolol 2020-0 Yes [id number] 50mg Take 1 [facility] tartrate 50 3-26 tablet by ity of mg tablet 00:00: mouth 2 [place] (two) Medical times Branch daily. amitriptyli 2020-0 Yes [id number] 25mg Take 1 [facility] ne 25 mg 3-26 tablet by ity of tablet 00:00: mouth at [place] [address] bedtime. Medical Branch metoprolol 2020-0 Yes [id number] 50mg Take 1 [facility] tartrate 50 3-26 tablet by ity of mg tablet 00:00: mouth 2 [place] (two) Medical times Branch daily. amitriptyli 2020-0 Yes [id number] 25mg Take 1 [facility] ne 25 mg 3-26 tablet by ity of tablet 00:00: mouth at [place] [address] bedtime. Medical Branch metoprolol 2020-0 Yes [id number] 50mg Take 1 [facility] tartrate 50 3-26 tablet by ity of mg tablet 00:00: mouth 2 [place] (two) Medical times Branch daily. amitriptyli 2020-0 Yes [id number] 25mg Take 1 [facility] ne 25 mg 3-26 tablet by [facility]y of tablet 00:00: mouth at [place] [address] bedtime. Medical Branch metoprolol 2020-0 Yes [id number] 50mg Take 1 [facility] tartrate 50 3-26 tablet by ity of mg tablet 00:00: mouth 2 [place] (two) Medical times Branch daily. amitriptyli 2020-0 Yes [id number] 25mg Take 1 [facility] ne 25 mg 3-26 tablet by [facility]y of tablet 00:00: mouth at [place] [address] bedtime. Medical Branch metoprolol 2020-0 Yes [id number] 50mg Take 1 [facility] tartrate 50 3-26 tablet by ity of mg tablet 00:00: mouth 2 [place] (two) Medical times Branch daily. amitriptyli 2020-0 Yes [id number] 25mg Take 1 [facility] ne 25 mg 3-26 tablet by ity of tablet 00:00: mouth at [place] [address] bedtime. Medical Branch metoprolol 2020-0 Yes [id number] 50mg Take 1 [facility] tartrate 50 3-26 tablet by ity of mg tablet 00:00: mouth 2 [place] (two) Medical times Branch daily. amitriptyli 2020-0 Yes [id number] 25mg Take 1 [facility] ne 25 mg 3-26 tablet by ity of tablet 00:00: mouth at [place] [address] bedtime. Medical Branch metoprolol 2020-0 Yes [id number] 50mg Take 1 [facility] tartrate 50 3-26 tablet by ity of mg tablet 00:00: mouth 2 [place] (two) Medical times Branch daily. amitriptyli 2020-0 Yes [id number] 25mg Take 1 [facility] ne 25 mg 3-26 tablet by ity of tablet 00:00: mouth at [place] [address] bedtime. Medical Branch metoprolol 2020-0 Yes [id number] 50mg Take 1 [facility] tartrate 50 3-26 tablet by ity of mg tablet 00:00: mouth 2 [place] (two) Medical times Branch daily. amitriptyli 2020-0 Yes [id number] 25mg Take 1 [facility] ne 25 mg 3-26 tablet by ity of tablet 00:00: mouth at [place] [address] bedtime. Medical Branch metoprolol 2020-0 Yes [id number] 50mg Take 1 [facility] tartrate 50 3-26 tablet by ity of mg tablet 00:00: mouth 2 [place] (two) Medical times Branch daily. amitriptyli 2020-0 Yes [id number] 25mg Take 1 [facility] ne 25 mg 3-26 tablet by ity of tablet 00:00: mouth at [place] [address] bedtime. Medical Branch metoprolol 2020-0 Yes [id number] 50mg Take 1 [facility] tartrate 50 3-26 tablet by ity of mg tablet 00:00: mouth 2 [place] (two) Medical times Branch daily. amitriptyli 2020-0 Yes [id number] 25mg Take 1 [facility] ne 25 mg 3-26 tablet by it[facility] of tablet 00:00: mouth at [place] [address] bedtime. Medical Branch metoprolol 2020-0 Yes [id number] 50mg Take 1 [facility] tartrate 50 3-26 tablet by ity of mg tablet 00:00: mouth 2 [place] (two) Medical times Branch daily. amitriptyli 2020-0 Yes [id number] 25mg Take 1 [facility] ne 25 mg 3-26 tablet by ity of tablet 00:00: mouth at [place] [address] bedtime. Medical Branch metoprolol 2020-0 Yes [id number] 50mg Take 1 [facility] tartrate 50 3-26 tablet by ity of mg tablet 00:00: mouth 2 [place] (two) Medical times Branch daily. amitriptyli 2020-0 Yes [id number] 25mg Take 1 [facility] ne 25 mg 3-26 tablet by ity of tablet 00:00: mouth at [place] bedtime. Medical Branch metoprolol 2020-0 Yes [id number] 50mg Take 1 [facility] tartrate 50 3-26 tablet by ity of mg tablet 00:00: mouth 2 [place] (two) Medical times Branch daily. amitriptyli 2020-0 Yes [id number] 25mg Take 1 [facility] ne 25 mg 3-26 tablet by ity of tablet 00:00: mouth at [place] [address] bedtime. Medical Branch metoprolol 2020-0 Yes [id number] 50mg Take 1 [facility] tartrate 50 3-26 tablet by ity of mg tablet 00:00: mouth 2 [place] (two) Medical times Branch daily. amitriptyli 2020-0 Yes [id number] 25mg Take 1 [facility] ne 25 mg 3-26 tablet by ity of tablet 00:00: mouth at [place] [address] bedtime. Medical Branch metoprolol 2020-0 Yes [id number] 50mg Take 1 [facility] tartrate 50 3-26 tablet by ity of mg tablet 00:00: mouth 2 [place] (two) Medical times Branch daily. amitriptyli 2020-0 Yes [id number] 25mg Take 1 [facility] ne 25 mg 3-26 tablet by ity of tablet 00:00: mouth at [place] bedtime. Medical Branch metoprolol 2020-0 Yes [id number] 50mg Take 1 [facility] tartrate 50 3-26 tablet by ity of mg tablet 00:00: mouth 2 [place] (two) Medical times Branch daily. amitriptyli 2020-0 Yes [id number] 25mg Take 1 [facility] ne 25 mg 3-26 tablet by ity of tablet 00:00: mouth at [place] [address] bedtime. Medical Branch metoprolol 2020-0 Yes [id number] 50mg Take 1 [facility] tartrate 50 3-26 tablet by ity of mg tablet 00:00: mouth 2 [place] (two) Medical times Branch daily. amitriptyli 2020-0 Yes [id number] 25mg Take 1 [facility] ne 25 mg 3-26 tablet by ity of tablet 00:00: mouth at [place] [address] bedtime. Medical Branch metoprolol 2020-0 Yes [id number] 50mg Take 1 [facility] tartrate 50 3-26 tablet by ity of mg tablet 00:00: mouth 2 [place] (two) Medical times Branch daily. amitriptyli 2020-0 Yes [id number] 25mg Take 1 [facility] ne 25 mg 3-26 tablet by ity of tablet 00:00: mouth at [place] [address] bedtime. Medical Branch metoprolol 2020-0 Yes [id number] 50mg Take 1 [facility] tartrate 50 3-26 tablet by ity of mg tablet 00:00: mouth 2 [place] (two) Medical times Branch daily. amitriptyli 2020-0 Yes [id number] 25mg Take 1 [facility] ne 25 mg 3-26 tablet by ity of tablet 00:00: mouth at [place] [address] bedtime. Medical Branch metoprolol 2020-0 Yes [id number] 50mg Take 1 [facility] tartrate 50 3-26 tablet by ity of mg tablet 00:00: mouth 2 [place] (two) Medical times Branch daily. amitriptyli 2020-0 Yes [id number] 25mg Take 1 [facility] ne 25 mg 3-26 tablet by ity of tablet 00:00: mouth at [place] [address] bedtime. Medical Branch metoprolol 2020-0 Yes [id number] 50mg Take 1 [facility] tartrate 50 3-26 tablet by ity of mg tablet 00:00: mouth 2 [place] (two) Medical times Branch daily. amitriptyli 2020-0 Yes [id number] 25mg Take 1 [facility] ne 25 mg 3-26 tablet by ity of tablet 00:00: mouth at [place] [address] bedtime. Medical Branch metoprolol 2020-0 Yes [id number] 50mg Take 1 [facility] tartrate 50 3-26 tablet by ity of mg tablet 00:00: mouth 2 [place] (two) Medical times Branch daily. amitriptyli 2020-0 Yes [id number] 25mg Take 1 [facility] ne 25 mg 3-26 tablet by ity of tablet 00:00: mouth at [place] [address] bedtime. Medical Branch metoprolol 2020-0 Yes [id number] 50mg Take 1 [facility] tartrate 50 3-26 tablet by ity of mg tablet 00:00: mouth 2 [place] 00 (two) Medical times Branch daily. amitriptyli 2020-0 Yes [id number] 25mg Take 1 [facility] ne 25 mg 3-26 tablet by ity of tablet 00:00: mouth at [place] 00 bedtime. Medical Branch metoprolol 2020-0 Yes [id number] 50mg Take 1 [facility] tartrate 50 3-26 tablet by ity of mg tablet 00:00: mouth 2 [place] 00 (two) Medical times Branch daily. budesonide- 2020-0 Yes [id number] 2{puff} Inhale 2 [facility] formoteroL 2-14 Puffs 2 ity of 160-4.5 00:00: (two) [place] mcg/actuati 00 times Medical on inhaler daily. Branch indomethaci 2020-0 Yes [id number] 50mg Take 1 [facility] n 50 mg 2-14 capsule by ity of capsule 00:00: mouth 3 [place] 00 (three) Medical times Branch daily with meals. albuterol 2020-0 Yes [id number] 2{puff} Inhale 2 [facility] 90 2-14 Puffs ity of mcg/actuati 00:00: every 6 [place] on inhaler 00 (six) Medical hours as Branch needed for Wheezing or Shortness of Breath. levETIRAcet 2020-0 Yes [id number] 500mg Take 1 [facility] am (KEPPRA) 2-14 tablet by ity of 500 mg 00:00: mouth 2 [place] tablet 00 (two) Medical times Branch daily. budesonide- 2020-0 Yes [id number] 2{puff} Inhale 2 [facility] formoteroL 2-14 Puffs 2 ity of 160-4.5 00:00: (two) [place] mcg/actuati 00 times Medical on inhaler daily. Branch indomethaci 2020-0 Yes [id number] 50mg Take 1 [facility] n 50 mg 2-14 capsule by ity of capsule 00:00: mouth 3 [place] 00 (three) Medical times Branch daily with meals. albuterol 2020-0 Yes [id number] 2{puff} Inhale 2 [facility] 90 2-14 Puffs ity of mcg/actuati 00:00: every 6 [place] on inhaler 00 (six) Medical hours as Branch needed for Wheezing or Shortness of Breath. levETIRAcet 2020-0 Yes [id number] 500mg Take 1 [facility] am (KEPPRA) 2-14 tablet by ity of 500 mg 00:00: mouth 2 [place] tablet 00 (two) Medical times Branch daily. budesonide- 2020-0 Yes [id number] 2{puff} Inhale 2 [facility] formoteroL 2-14 Puffs 2 ity of 160-4.5 00:00: (two) [place] mcg/actuati 00 times Medical on inhaler daily. Branch indomethaci 2020-0 Yes [id number] 50mg Take 1 [facility] n 50 mg 2-14 capsule by ity of capsule 00:00: mouth 3 [place] 00 (three) Medical times Branch daily with meals. albuterol 2020-0 Yes [id number] 2{puff} Inhale 2 [facility] 90 2-14 Puffs ity of mcg/actuati 00:00: every 6 [place] on inhaler 00 (six) Medical hours as Branch needed for Wheezing or Shortness of Breath. levETIRAcet 2020-0 Yes [id number] 500mg Take 1 [facility] am (KEPPRA) 2-14 tablet by ity of 500 mg 00:00: mouth 2 [place] tablet 00 (two) Medical times Branch daily. budesonide- 2020-0 Yes [id number] 2{puff} Inhale 2 [facility] formoteroL 2-14 Puffs 2 ity of 160-4.5 00:00: (two) [place] mcg/actuati 00 times Medical on inhaler daily. Branch indomethaci 2020-0 Yes [id number] 50mg Take 1 [facility] n 50 mg 2-14 capsule by ity of capsule 00:00: mouth 3 [place] 00 (three) Medical times Branch daily with meals. albuterol 2020-0 Yes [id number] 2{puff} Inhale 2 [facility] 90 2-14 Puffs ity of mcg/actuati 00:00: every 6 [place] on inhaler 00 (six) Medical hours as Branch needed for Wheezing or Shortness of Breath. levETIRAcet 2020-0 Yes [id number] 500mg Take 1 [facility] am (KEPPRA) 2-14 tablet by ity of 500 mg 00:00: mouth 2 [place] tablet 00 (two) Medical times Branch daily. budesonide- 2020-0 Yes [id number] 2{puff} Inhale 2 [facility] formoteroL 2-14 Puffs 2 ity of 160-4.5 00:00: (two) [place] mcg/actuati 00 times Medical on inhaler daily. Branch indomethaci 2020-0 Yes [id number] 50mg Take 1 [facility] n 50 mg 2-14 capsule by ity of capsule 00:00: mouth 3 [place] 00 (three) Medical times Branch daily with meals. albuterol 2020-0 Yes [id number] 2{puff} Inhale 2 [facility] 90 2-14 Puffs ity of mcg/actuati 00:00: every 6 [place] on inhaler 00 (six) Medical hours as Branch needed for Wheezing or Shortness of Breath. levETIRAcet 2020-0 Yes [id number] 500mg Take 1 [facility] am (KEPPRA) 2-14 tablet by ity of 500 mg 00:00: mouth 2 [place] tablet 00 (two) Medical times Branch daily. budesonide- 2020-0 Yes [id number] 2{puff} Inhale 2 [facility] formoteroL 2-14 Puffs 2 ity of 160-4.5 00:00: (two) [place] mcg/actuati 00 times Medical on inhaler daily. Branch indomethaci 2020-0 Yes [id number] 50mg Take 1 [facility] n 50 mg 2-14 capsule by ity of capsule 00:00: mouth 3 [place] 00 (three) Medical times Branch daily with meals. albuterol 2020-0 Yes [id number] 2{puff} Inhale 2 [facility] 90 2-14 Puffs ity of mcg/actuati 00:00: every 6 [place] on inhaler 00 (six) Medical hours as Branch needed for Wheezing or Shortness of Breath. levETIRAcet 2020-0 Yes [id number] 500mg Take 1 [facility] am (KEPPRA) 2-14 tablet by ity of 500 mg 00:00: mouth 2 [place] tablet 00 (two) Medical times Branch daily. budesonide- 2020-0 Yes [id number] 2{puff} Inhale 2 [facility] formoteroL 2-14 Puffs 2 ity of 160-4.5 00:00: (two) [place] mcg/actuati 00 times Medical on inhaler daily. Branch indomethaci 2020-0 Yes [id number] 50mg Take 1 [facility] n 50 mg 2-14 capsule by ity of capsule 00:00: mouth 3 [place] 00 (three) Medical times Branch daily with meals. albuterol 2020-0 Yes [id number] 2{puff} Inhale 2 [facility] 90 2-14 Puffs ity of mcg/actuati 00:00: every 6 [place] on inhaler 00 (six) Medical hours as Branch needed for Wheezing or Shortness of Breath. levETIRAcet 2020-0 Yes [id number] 500mg Take 1 [facility] am (KEPPRA) 2-14 tablet by ity of 500 mg 00:00: mouth 2 [place] tablet 00 (two) Medical times Branch daily. budesonide- 2020-0 Yes [id number] 2{puff} Inhale 2 [facility] formoteroL 2-14 Puffs 2 ity of 160-4.5 00:00: (two) [place] mcg/actuati 00 times Medical on inhaler daily. Branch indomethaci 2020-0 Yes [id number] 50mg Take 1 [facility] n 50 mg 2-14 capsule by ity of capsule 00:00: mouth 3 [place] 00 (three) Medical times Branch daily with meals. albuterol 2020-0 Yes [id number] 2{puff} Inhale 2 [facility] 90 2-14 Puffs ity of mcg/actuati 00:00: every 6 [place] on inhaler 00 (six) Medical hours as Branch needed for Wheezing or Shortness of Breath. levETIRAcet 2020-0 Yes [id number] 500mg Take 1 [facility] am (KEPPRA) 2-14 tablet by ity of 500 mg 00:00: mouth 2 [place] tablet 00 (two) Medical times Branch daily. budesonide- 2020-0 Yes [id number] 2{puff} Inhale 2 [facility] formoteroL 2-14 Puffs 2 ity of 160-4.5 00:00: (two) [place] mcg/actuati 00 times Medical on inhaler daily. Branch indomethaci 2020-0 Yes [id number] 50mg Take 1 [facility] n 50 mg 2-14 capsule by ity of capsule 00:00: mouth 3 [place] 00 (three) Medical times Branch daily with meals. albuterol 2020-0 Yes [id number] 2{puff} Inhale 2 [facility] 90 2-14 Puffs ity of mcg/actuati 00:00: every 6 [place] on inhaler 00 (six) Medical hours as Branch needed for Wheezing or Shortness of Breath. levETIRAcet 2020-0 Yes [id number] 500mg Take 1 [facility] am (KEPPRA) 2-14 tablet by ity of 500 mg 00:00: mouth 2 [place] tablet 00 (two) Medical times Branch daily. budesonide- 2020-0 Yes [id number] 2{puff} Inhale 2 [facility] formoteroL 2-14 Puffs 2 ity of 160-4.5 00:00: (two) [place] mcg/actuati 00 times Medical on inhaler daily. Branch indomethaci 2020-0 Yes [id number] 50mg Take 1 [facility] n 50 mg 2-14 capsule by ity of capsule 00:00: mouth 3 [place] 00 (three) Medical times Branch daily with meals. albuterol 2020-0 Yes [id number] 2{puff} Inhale 2 [facility] 90 2-14 Puffs ity of mcg/actuati 00:00: every 6 [place] on inhaler 00 (six) Medical hours as Branch needed for Wheezing or Shortness of Breath. levETIRAcet 2020-0 Yes [id number] 500mg Take 1 [facility] am (KEPPRA) 2-14 tablet by ity of 500 mg 00:00: mouth 2 [place] tablet 00 (two) Medical times Branch daily. budesonide- 2020-0 Yes [id number] 2{puff} Inhale 2 [facility] formoteroL 2-14 Puffs 2 ity of 160-4.5 00:00: (two) [place] mcg/actuati 00 times Medical on inhaler daily. Branch indomethaci 2020-0 Yes [id number] 50mg Take 1 [facility] n 50 mg 2-14 capsule by ity of capsule 00:00: mouth 3 [place] 00 (three) Medical times Branch daily with meals. albuterol 2020-0 Yes [id number] 2{puff} Inhale 2 [facility] 90 2-14 Puffs ity of mcg/actuati 00:00: every 6 [place] on inhaler 00 (six) Medical hours as Branch needed for Wheezing or Shortness of Breath. levETIRAcet 2020-0 Yes [id number] 500mg Take 1 [facility] am (KEPPRA) 2-14 tablet by ity of 500 mg 00:00: mouth 2 [place] tablet 00 (two) Medical times Branch daily. budesonide- 2020-0 Yes [id number] 2{puff} Inhale 2 [facility] formoteroL 2-14 Puffs 2 ity of 160-4.5 00:00: (two) [place] mcg/actuati 00 times Medical on inhaler daily. Branch indomethaci 2020-0 Yes [id number] 50mg Take 1 [facility] n 50 mg 2-14 capsule by ity of capsule 00:00: mouth 3 [place] 00 (three) Medical times Branch daily with meals. albuterol 2020-0 Yes [id number] 2{puff} Inhale 2 [facility] 90 2-14 Puffs ity of mcg/actuati 00:00: every 6 [place] on inhaler 00 (six) Medical hours as Branch needed for Wheezing or Shortness of Breath. levETIRAcet 2020-0 Yes [id number] 500mg Take 1 [facility] am (KEPPRA) 2-14 tablet by ity of 500 mg 00:00: mouth 2 [place] tablet 00 (two) Medical times Branch daily. budesonide- 2020-0 Yes [id number] 2{puff} Inhale 2 [facility] formoteroL 2-14 Puffs 2 ity of 160-4.5 00:00: (two) [place] mcg/actuati 00 times Medical on inhaler daily. Branch indomethaci 2020-0 Yes [id number] 50mg Take 1 [facility] n 50 mg 2-14 capsule by ity of capsule 00:00: mouth 3 [place] 00 (three) Medical times Branch daily with meals. albuterol 2020-0 Yes [id number] 2{puff} Inhale 2 [facility] 90 2-14 Puffs ity of mcg/actuati 00:00: every 6 [place] on inhaler 00 (six) Medical hours as Branch needed for Wheezing or Shortness of Breath. levETIRAcet 2020-0 Yes [id number] 500mg Take 1 [facility] am (KEPPRA) 2-14 tablet by ity of 500 mg 00:00: mouth 2 [place] tablet 00 (two) Medical times Branch daily. budesonide- 2020-0 Yes [id number] 2{puff} Inhale 2 [facility] formoteroL 2-14 Puffs 2 ity of 160-4.5 00:00: (two) [place] mcg/actuati 00 times Medical on inhaler daily. Branch indomethaci 2020-0 Yes [id number] 50mg Take 1 [facility] n 50 mg 2-14 capsule by ity of capsule 00:00: mouth 3 [place] 00 (three) Medical times Branch daily with meals. albuterol 2020-0 Yes [id number] 2{puff} Inhale 2 [facility] 90 2-14 Puffs ity of mcg/actuati 00:00: every 6 [place] on inhaler 00 (six) Medical hours as Branch needed for Wheezing or Shortness of Breath. levETIRAcet 2020-0 Yes [id number] 500mg Take 1 [facility] am (KEPPRA) 2-14 tablet by ity of 500 mg 00:00: mouth 2 [place] tablet 00 (two) Medical times Branch daily. budesonide- 2020-0 Yes [id number] 2{puff} Inhale 2 [facility] formoteroL 2-14 Puffs 2 ity of 160-4.5 00:00: (two) [place] mcg/actuati 00 times Medical on inhaler daily. Branch indomethaci 2020-0 Yes [id number] 50mg Take 1 [facility] n 50 mg 2-14 capsule by ity of capsule 00:00: mouth 3 [place] 00 (three) Medical times Branch daily with meals. albuterol 2020-0 Yes [id number] 2{puff} Inhale 2 [facility] 90 2-14 Puffs ity of mcg/actuati 00:00: every 6 [place] on inhaler 00 (six) Medical hours as Branch needed for Wheezing or Shortness of Breath. levETIRAcet 2020-0 Yes [id number] 500mg Take 1 [facility] am (KEPPRA) 2-14 tablet by ity of 500 mg 00:00: mouth 2 [place] tablet 00 (two) Medical times Branch daily. budesonide- 2020-0 Yes [id number] 2{puff} Inhale 2 [facility] formoteroL 2-14 Puffs 2 ity of 160-4.5 00:00: (two) [place] mcg/actuati 00 times Medical on inhaler daily. Branch indomethaci 2020-0 Yes [id number] 50mg Take 1 [facility] n 50 mg 2-14 capsule by ity of capsule 00:00: mouth 3 [place] 00 (three) Medical times Branch daily with meals. albuterol 2020-0 Yes [id number] 2{puff} Inhale 2 [facility] 90 2-14 Puffs ity of mcg/actuati 00:00: every 6 [place] on inhaler 00 (six) Medical hours as Branch needed for Wheezing or Shortness of Breath. levETIRAcet 2020-0 Yes [id number] 500mg Take 1 [facility] am (KEPPRA) 2-14 tablet by ity of 500 mg 00:00: mouth 2 [place] tablet 00 (two) Medical times Branch daily. budesonide- 2020-0 Yes [id number] 2{puff} Inhale 2 [facility] formoteroL 2-14 Puffs 2 ity of 160-4.5 00:00: (two) [place] mcg/actuati 00 times Medical on inhaler daily. Branch indomethaci 2020-0 Yes [id number] 50mg Take 1 [facility] n 50 mg 2-14 capsule by ity of capsule 00:00: mouth 3 [place] 00 (three) Medical times Branch daily with meals. albuterol 2020-0 Yes [id number] 2{puff} Inhale 2 [facility] 90 2-14 Puffs ity of mcg/actuati 00:00: every 6 [place] on inhaler 00 (six) Medical hours as Branch needed for Wheezing or Shortness of Breath. levETIRAcet 2020-0 Yes [id number] 500mg Take 1 [facility] am (KEPPRA) 2-14 tablet by ity of 500 mg 00:00: mouth 2 [place] tablet 00 (two) Medical times Branch daily. budesonide- 2020-0 Yes [id number] 2{puff} Inhale 2 [facility] formoteroL 2-14 Puffs 2 ity of 160-4.5 00:00: (two) [place] mcg/actuati 00 times Medical on inhaler daily. Branch indomethaci 2020-0 Yes [id number] 50mg Take 1 [facility] n 50 mg 2-14 capsule by ity of capsule 00:00: mouth 3 [place] 00 (three) Medical times Branch daily with meals. albuterol 2020-0 Yes [id number] 2{puff} Inhale 2 Univers 90 2-14 Puffs ity of mcg/actuati 00:00: every 6 [place] as on inhaler 00 (six) Medical hours as Branch needed for Wheezing or Shortness of Breath. levETIRAcet 2020-0 Yes [id number] 500mg Take 1 Univers am (KEPPRA) 2-14 tablet by ity of 500 mg 00:00: mouth 2 [place] tablet 00 (two) Medical times Branch daily. budesonide- 2020-0 Yes [id number] 2{puff} Inhale 2 [facility] formoteroL 2-14 Puffs 2 ity of 160-4.5 00:00: (two) [place] mcg/actuati 00 times Medical on inhaler daily. Branch indomethaci 2020-0 Yes [id number] 50mg Take 1 [facility] n 50 mg 2-14 capsule by ity of capsule 00:00: mouth 3 [place] 00 (three) Medical times Branch daily with meals. albuterol 2020-0 Yes [id number] 2{puff} Inhale 2 [facility] 90 2-14 Puffs ity of mcg/actuati 00:00: every 6 [place] as on inhaler 00 (six) Medical hours as Branch needed for Wheezing or Shortness of Breath. levETIRAcet 2020-0 Yes [id number] 500mg Take 1 [facility] am (KEPPRA) 2-14 tablet by ity of 500 mg 00:00: mouth 2 [place] tablet 00 (two) Medical times Branch daily. budesonide- 2020-0 Yes [id number] 2{puff} Inhale 2 [facility] formoteroL 2-14 Puffs 2 ity of 160-4.5 00:00: (two) [place] mcg/actuati 00 times Medical on inhaler daily. Branch indomethaci 2020-0 Yes [id number] 50mg Take 1 [facility] n 50 mg 2-14 capsule by ity of capsule 00:00: mouth 3 00 (three) Medical times Branch daily with meals. albuterol 2020-0 Yes [id number] 2{puff} Inhale 2 [facility] 90 2-14 Puffs ity of mcg/actuati 00:00: every 6 [place] as on inhaler 00 (six) Medical hours as Branch needed for Wheezing or Shortness of Breath. levETIRAcet 2020-0 Yes [id number] 500mg Take 1 [facility] am (KEPPRA) 2-14 tablet by ity of 500 mg 00:00: mouth 2 [place] tablet 00 (two) Medical times Branch daily. budesonide- 2020-0 Yes [id number] 2{puff} Inhale 2 [facility] formoteroL 2-14 Puffs 2 ity of 160-4.5 00:00: (two) [place] mcg/actuati 00 times Medical on inhaler daily. Branch indomethaci 2020-0 Yes [id number] 50mg Take 1 [facility] n 50 mg 2-14 capsule by ity of capsule 00:00: mouth 3 [place] 00 (three) Medical times Branch daily with meals. albuterol 2020-0 Yes [id number] 2{puff} Inhale 2 [facility] 90 2-14 Puffs ity of mcg/actuati 00:00: every 6 [place] as on inhaler 00 (six) Medical hours as Branch needed for Wheezing or Shortness of Breath. levETIRAcet 2020-0 Yes [id number] 500mg Take 1 [facility] am (KEPPRA) 2-14 tablet by ity of 500 mg 00:00: mouth 2 [place] tablet 00 (two) Medical times Branch daily. budesonide- 2020-0 Yes [id number] 2{puff} Inhale 2 [facility] formoteroL 2-14 Puffs 2 ity of 160-4.5 00:00: (two) [place] mcg/actuati 00 times Medical on inhaler daily. Branch indomethaci 2020-0 Yes [id number] 50mg Take 1 [facility] n 50 mg 2-14 capsule by ity of capsule 00:00: mouth 3 [place] 00 (three) Medical times Branch daily with meals. albuterol 2020-0 Yes [id number] 2{puff} Inhale 2 [facility] 90 2-14 Puffs ity of mcg/actuati 00:00: every 6 [place] as on inhaler 00 (six) Medical hours as Branch needed for Wheezing or Shortness of Breath. levETIRAcet 2020-0 Yes [id number] 500mg Take 1 [facility] am (KEPPRA) 2-14 tablet by ity of 500 mg 00:00: mouth 2 [place] tablet 00 (two) Medical times Branch daily. budesonide- 2020-0 Yes [id number] 2{puff} Inhale 2 [facility] formoteroL 2-14 Puffs 2 ity of 160-4.5 00:00: (two) [place] mcg/actuati 00 times Medical on inhaler daily. Branch indomethaci 2020-0 Yes [id number] 50mg Take 1 [facility] n 50 mg 2-14 capsule by ity of capsule 00:00: mouth 3 [place] 00 (three) Medical times Branch daily with meals. albuterol 2020-0 Yes [id number] 2{puff} Inhale 2 [facility] 90 2-14 Puffs ity of mcg/actuati 00:00: every 6 [place] as on inhaler 00 (six) Medical hours as Branch needed for Wheezing or Shortness of Breath. levETIRAcet 2020-0 Yes [id number] 500mg Take 1 [facility] am (KEPPRA) 2-14 tablet by ity of 500 mg 00:00: mouth 2 [place] tablet 00 (two) Medical times Branch daily. budesonide- 2020-0 Yes [id number] 2{puff} Inhale 2 [facility] formoteroL 2-14 Puffs 2 ity of 160-4.5 00:00: (two) [place] mcg/actuati 00 times Medical on inhaler daily. Branch indomethaci 2020-0 Yes [id number] 50mg Take 1 [facility] n 50 mg 2-14 capsule by ity of capsule 00:00: mouth 3 [place] 00 (three) Medical times Branch daily with meals. albuterol 2020-0 Yes [id number] 2{puff} Inhale 2 [facility] 90 2-14 Puffs ity of mcg/actuati 00:00: every 6 [place] as on inhaler 00 (six) Medical hours as Branch needed for Wheezing or Shortness of Breath. levETIRAcet 2020-0 Yes [id number] 500mg Take 1 [facility] am (KEPPRA) 2-14 tablet by ity of 500 mg 00:00: mouth 2 [place] tablet 00 (two) Medical times Branch daily. budesonide- 2020-0 Yes [id number] 2{puff} Inhale 2 [facility] formoteroL 2-14 Puffs 2 ity of 160-4.5 00:00: (two) [place] mcg/actuati 00 times Medical on inhaler daily. Branch indomethaci 2020-0 Yes [id number] 50mg Take 1 [facility] n 50 mg 2-14 capsule by ity of capsule 00:00: mouth 3 [place] 00 (three) Medical times Branch daily with meals. albuterol 2020-0 Yes [id number] 2{puff} Inhale 2 [facility] 90 2-14 Puffs ity of mcg/actuati 00:00: every 6 [place] as on inhaler 00 (six) Medical hours as Branch needed for Wheezing or Shortness of Breath. levETIRAcet 2020-0 Yes [id number] 500mg Take 1 [facility] am (KEPPRA) 2-14 tablet by ity of 500 mg 00:00: mouth 2 [place] tablet 00 (two) Medical times Branch daily. budesonide- 2020-0 Yes [id number] 2{puff} Inhale 2 [facility] formoteroL 2-14 Puffs 2 ity of 160-4.5 00:00: (two) [place] mcg/actuati 00 times Medical on inhaler daily. Branch indomethaci 2020-0 Yes [id number] 50mg Take 1 [facility] n 50 mg 2-14 capsule by ity of capsule 00:00: mouth 3 [place] 00 (three) Medical times Branch daily with meals. albuterol 2020-0 Yes [id number] 2{puff} Inhale 2 [facility] 90 2-14 Puffs ity of mcg/actuati 00:00: every 6 [place] as on inhaler 00 (six) Medical hours as Branch needed for Wheezing or Shortness of Breath. levETIRAcet 2020-0 Yes [id number] 500mg Take 1 [facility] am (KEPPRA) 2-14 tablet by ity of 500 mg 00:00: mouth 2 [place] tablet 00 (two) Medical times Branch daily. budesonide- 2020-0 Yes [id number] 2{puff} Inhale 2 [facility] formoteroL 2-14 Puffs 2 ity of 160-4.5 00:00: (two) [place] mcg/actuati 00 times Medical on inhaler daily. Branch indomethaci 2020-0 Yes [id number] 50mg Take 1 [facility] n 50 mg 2-14 capsule by ity of capsule 00:00: mouth 3 00 (three) Medical times Branch daily with meals. albuterol 2020-0 Yes [id number] 2{puff} Inhale 2 [facility] 90 2-14 Puffs ity of mcg/actuati 00:00: every 6 [place] as on inhaler 00 (six) Medical hours as Branch needed for Wheezing or Shortness of Breath. levETIRAcet 2020-0 Yes [id number] 500mg Take 1 [facility] am (KEPPRA) 2-14 tablet by ity of 500 mg 00:00: mouth 2 [place] tablet 00 (two) Medical times Branch daily. budesonide- 2020-0 Yes [id number] 2{puff} Inhale 2 [facility] formoteroL 2-14 Puffs 2 ity of 160-4.5 00:00: (two) [place] mcg/actuati 00 times Medical on inhaler daily. Branch indomethaci 2020-0 Yes [id number] 50mg Take 1 [facility] n 50 mg 2-14 capsule by ity of capsule 00:00: mouth 3 [place] 00 (three) Medical times Branch daily with meals. albuterol 2020-0 Yes [id number] 2{puff} Inhale 2 [facility] 90 2-14 Puffs ity of mcg/actuati 00:00: every 6 [place] as on inhaler 00 (six) Medical hours as Branch needed for Wheezing or Shortness of Breath. levETIRAcet 2020-0 Yes [id number] 500mg Take 1 [facility] am (KEPPRA) 2-14 tablet by ity of 500 mg 00:00: mouth 2 [place] tablet 00 (two) Medical times Branch daily. budesonide- 2020-0 Yes [id number] 2{puff} Inhale 2 [facility] formoteroL 2-14 Puffs 2 ity of 160-4.5 00:00: (two) [place] mcg/actuati 00 times Medical on inhaler daily. Branch indomethaci 2020-0 Yes [id number] 50mg Take 1 [facility] n 50 mg 2-14 capsule by ity of capsule 00:00: mouth 3 [place] 00 (three) Medical times Branch daily with meals. albuterol 2020-0 Yes [id number] 2{puff} Inhale 2 [facility] 90 2-14 Puffs ity of mcg/actuati 00:00: every 6 [place] as on inhaler 00 (six) Medical hours as Branch needed for Wheezing or Shortness of Breath. levETIRAcet 2020-0 Yes [id number] 500mg Take 1 [facility] am (KEPPRA) 2-14 tablet by ity of 500 mg 00:00: mouth 2 [place] tablet 00 (two) Medical times Branch daily. budesonide- 2020-0 Yes [id number] 2{puff} Inhale 2 [facility] formoteroL 2-14 Puffs 2 ity of 160-4.5 00:00: (two) [place] mcg/actuati 00 times Medical on inhaler daily. Branch indomethaci 2020-0 Yes [id number] 50mg Take 1 [facility] n 50 mg 2-14 capsule by ity of capsule 00:00: mouth 3 [place] 00 (three) Medical times Branch daily with meals. albuterol 2020-0 Yes [id number] 2{puff} Inhale 2 [facility] 90 2-14 Puffs ity of mcg/actuati 00:00: every 6 [place] as on inhaler 00 (six) Medical hours as Branch needed for Wheezing or Shortness of Breath. levETIRAcet 2020-0 Yes [id number] 500mg Take 1 [facility] am (KEPPRA) 2-14 tablet by ity of 500 mg 00:00: mouth 2 [place] tablet 00 (two) Medical times Branch daily. budesonide- 2020-0 Yes [id number] 2{puff} Inhale 2 [facility] formoteroL 2-14 Puffs 2 ity of 160-4.5 00:00: (two) [place] mcg/actuati 00 times Medical on inhaler daily. Branch indomethaci 2020-0 Yes [id number] 50mg Take 1 [facility] n 50 mg 2-14 capsule by ity of capsule 00:00: mouth 3 [place] 00 (three) Medical times Branch daily with meals. albuterol 2020-0 Yes [id number] 2{puff} Inhale 2 [facility] 90 2-14 Puffs ity of mcg/actuati 00:00: every 6 [place] as on inhaler 00 (six) Medical hours as Branch needed for Wheezing or Shortness of Breath. levETIRAcet 2020-0 Yes [id number] 500mg Take 1 [facility] am (KEPPRA) 2-14 tablet by ity of 500 mg 00:00: mouth 2 [place] tablet 00 (two) Medical times Branch daily. budesonide- 2020-0 Yes [id number] 2{puff} Inhale 2 [facility] formoteroL 2-14 Puffs 2 ity of 160-4.5 00:00: (two) [place] mcg/actuati 00 times Medical on inhaler daily. Branch indomethaci 2020-0 Yes [id number] 50mg Take 1 [facility] n 50 mg 2-14 capsule by ity of capsule 00:00: mouth 3 00 (three) Medical times Branch daily with meals. albuterol 2020-0 Yes [id number] 2{puff} Inhale 2 [facility] 90 2-14 Puffs ity of mcg/actuati 00:00: every 6 [place] as on inhaler 00 (six) Medical hours as Branch needed for Wheezing or Shortness of Breath. levETIRAcet 2020-0 Yes [id number] 500mg Take 1 [facility] am (KEPPRA) 2-14 tablet by ity of 500 mg 00:00: mouth 2 [place] tablet 00 (two) Medical times Branch daily. topiramate 2020-0 Yes Univers 25 mg 1-28 ity of tablet 00:00: [place] 00 Medical Branch topiramate 2020-0 Yes Univers 25 mg 1-28 ity of tablet 00:00: [place] 00 Medical Branch topiramate 2020-0 Yes Univers 25 mg 1-28 ity of tablet 00:00: [place] [address] Medical Branch topiramate 2020-0 Yes Univers 25 mg 1-28 ity of tablet 00:00: [place] [address] Medical Branch topiramate 2020-0 Yes Univers 25 mg 1-28 ity of tablet 00:00: [place] [address] Medical Branch topiramate 2020-0 Yes Univers 25 mg 1-28 ity of tablet 00:00: [place] [address] Medical Branch topiramate 2020-0 Yes Univers 25 mg 1-28 ity of tablet 00:00: [place] [address] Medical Branch topiramate 2020-0 Yes Univers 25 mg 1-28 ity of tablet 00:00: [place] [address] Medical Branch topiramate 2020-0 Yes Univers 25 mg 1-28 ity of tablet 00:00: [place] [address] Medical Branch topiramate 2020-0 Yes Univers 25 mg 1-28 ity of tablet 00:00: [place] [address] Medical Branch topiramate 2020-0 Yes Univers 25 mg 1-28 ity of tablet 00:00: [place] [address] Medical Branch topiramate 2020-0 Yes Univers 25 mg 1-28 ity of tablet 00:00: [place] [address] Medical Branch topiramate 2020-0 Yes Univers 25 mg 1-28 ity of tablet 00:00: [place] [address] Medical Branch topiramate 2020-0 Yes Univers 25 mg 1-28 ity of tablet 00:00: [place] [address] Medical Branch topiramate 2020-0 Yes Univers 25 mg 1-28 ity of tablet 00:00: [place] [address] Medical Branch topiramate 2020-0 Yes Univers 25 mg 1-28 ity of tablet 00:00: [place] [address] Medical Branch topiramate 2020-0 Yes Univers 25 mg 1-28 ity of tablet 00:00: [place] [address] Medical Branch topiramate 2020-0 Yes Univers 25 mg 1-28 ity of tablet 00:00: [place] [address] Medical Branch topiramate 2020-0 Yes Univers 25 mg 1-28 ity of tablet 00:00: [place] [address] Medical Branch topiramate 2020-0 Yes Univers 25 mg 1-28 ity of tablet 00:00: [place] [address] Medical Branch topiramate 2020-0 Yes Univers 25 mg 1-28 ity of tablet 00:00: [place] [address] Medical Branch topiramate 2020-0 Yes Univers 25 mg 1-28 ity of tablet 00:00: [place] 00 Medical Branch topiramate 2020-0 Yes Univers 25 mg 1-28 ity of tablet 00:00: [place] 00 Medical Branch topiramate 2020-0 Yes Univers 25 mg 1-28 ity of tablet 00:00: [place] [address] Medical Branch topiramate 2020-0 Yes Univers 25 mg 1-28 ity of tablet 00:00: [place] [address] Medical Branch topiramate 2020-0 Yes Univers 25 mg 1-28 ity of tablet 00:00: [place] [address] Medical Branch topiramate 2020-0 Yes Univers 25 mg 1-28 ity of tablet 00:00: [place] [address] Medical Branch topiramate 2020-0 Yes Univers 25 mg 1-28 ity of tablet 00:00: [place] [address] Medical Branch topiramate 2020-0 Yes Univers 25 mg 1-28 ity of tablet 00:00: [place] [address] Medical Branch topiramate 2020-0 Yes Univers 25 mg 1-28 ity of tablet 00:00: [place] [address] Medical Branch topiramate 2020-0 Yes Univers 25 mg 1-28 ity of tablet 00:00: [place] [address] Medical Branch topiramate 2020-0 Yes Univers 25 mg 1-28 ity of tablet 00:00: [place] [address] Medical Branch carBAMazepi 2020-0 Yes Univer s ne 200 mg 1-20 ity of tablet 00:00: [place] [address] Medical Branch carBAMazepi 2020-0 Yes Univer s ne 200 mg 1-20 ity of tablet 00:00: [place] [address] Medical Branch carBAMazepi 2020-0 Yes Univer s ne 200 mg 1-20 ity of tablet 00:00: [place] [address] Medical Branch carBAMazepi 2020-0 Yes Univer s ne 200 mg 1-20 ity of tablet 00:00: [place] [address] Medical Branch carBAMazepi 2020-0 Yes Univer s ne 200 mg 1-20 ity of tablet 00:00: [place] [address] Medical Branch carBAMazepi 2020-0 Yes Univer s ne 200 mg 1-20 ity of tablet 00:00: [place] [address] Medical Branch carBAMazepi 2020-0 Yes Univer s ne 200 mg 1-20 ity of tablet 00:00: [place] [address] Medical Branch carBAMazepi 2020-0 Yes Univer s ne 200 mg 1-20 ity of tablet 00:00: [place] [address] Medical Branch carBAMazepi 2020-0 Yes Univer s ne 200 mg 1-20 ity of tablet 00:00: [place] 00 Medical Branch carBAMazepi 2020-0 Yes Univer s ne 200 mg 1-20 ity of tablet 00:00: [place] 00 Medical Branch carBAMazepi 2020-0 Yes Univer s ne 200 mg 1-20 ity of tablet 00:00: [place] 00 Medical Branch carBAMazepi 2020-0 Yes Univer s ne 200 mg 1-20 ity of tablet 00:00: [place] 00 Medical Branch carBAMazepi 2020-0 Yes Univer s ne 200 mg 1-20 ity of tablet 00:00: [place] 00 Medical Branch carBAMazepi 2020-0 Yes Univer s ne 200 mg 1-20 ity of tablet 00:00: [place] [address] Medical Branch carBAMazepi 2020-0 Yes Univer s ne 200 mg 1-20 ity of tablet 00:00: [place] [address] Medical Branch carBAMazepi 2020-0 Yes Univer s ne 200 mg 1-20 ity of tablet 00:00: [place] [address] Medical Branch carBAMazepi 2020-0 Yes Univer s ne 200 mg 1-20 ity of tablet 00:00: [place] [address] Medical Branch carBAMazepi 2020-0 Yes Univer s ne 200 mg 1-20 ity of tablet 00:00: [place] [address] Medical Branch carBAMazepi 2020-0 Yes Univer s ne 200 mg 1-20 ity of tablet 00:00: [place] [address] Medical Branch carBAMazepi 2020-0 Yes Univer s ne 200 mg 1-20 ity of tablet 00:00: [place] [address] Medical Branch carBAMazepi 2020-0 Yes Univer s ne 200 mg 1-20 ity of tablet 00:00: [place] [address] Medical Branch carBAMazepi 2020-0 Yes Univer s ne 200 mg 1-20 ity of tablet 00:00: [place] [address] Medical Branch carBAMazepi 2020-0 Yes Univer s ne 200 mg 1-20 ity of tablet 00:00: [place] [address] Medical Branch carBAMazepi 2020-0 Yes Univer s ne 200 mg 1-20 ity of tablet 00:00: [place] [address] Medical Branch carBAMazepi 2020-0 Yes Univer s ne 200 mg 1-20 ity of tablet 00:00: [place] [address] Medical Branch carBAMazepi 2020-0 Yes Univer s ne 200 mg 1-20 ity of tablet 00:00: [place] [address] Medical Branch carBAMazepi 2020-0 Yes Univer s ne 200 mg 1-20 ity of tablet 00:00: [place] [address] Medical Branch carBAMazepi 2020-0 Yes Univer s ne 200 mg 1-20 ity of tablet 00:00: [place] [facility] carBAMazepi 2020-0 Yes Univer s ne 200 mg 1-20 ity of tablet 00:00: [place] [facility] carBAMazepi 2020-0 Yes Univer s ne 200 mg 1-20 ity of tablet 00:00: [place] [facility] carBAMazepi 2020-0 Yes Univer s ne 200 mg 1-20 ity of tablet 00:00: [place] [facility] carBAMazepi 2020-0 Yes Univer s ne 200 mg 1-20 ity of tablet 00:00: [place] [facility] [place] No [place] [...] Filled Immunization Date Status Comments [facility] e Immunization Name Name SARS-COV-2 COVID-19 2022-04-12 Completed Unive rsity of VACCINE - (MODERNA) 00:00:00 [facility] SARS-COV-2 COVID-19 2022-04-12 Completed Unive rsity of VACCINE - (MODERNA) 00:00:00 [facility] SARS-COV-2 COVID-19 2022-04-12 Completed Unive rsity of VACCINE - (MODERNA) 00:00:00 [facility] SARS-COV-2 COVID-19 2022-04-12 Completed Unive rsity of VACCINE - (MODERNA) 00:00:00 [facility] SARS-COV-2 COVID-19 2022-04-12 Completed Unive rsity of VACCINE - (MODERNA) 00:00:00 [facility] SARS-COV-2 COVID-19 2022-04-12 Completed Unive rsity of VACCINE - (MODERNA) 00:00:00 [facility] SARS-COV-2 COVID-19 2022-04-12 Completed Unive rsity of VACCINE - (MODERNA) 00:00:00 [facility] SARS-COV-2 COVID-19 2022-04-12 Completed Unive rsity of VACCINE - (MODERNA) 00:00:00 [facility] SARS-COV-2 COVID-19 2022-04-12 Completed Unive rsity of VACCINE - (MODERNA) 00:00:00 [facility] SARS-COV-2 COVID-19 2022-04-12 Completed Unive rsity of VACCINE - (MODERNA) 00:00:00 [facility] SARS-COV-2 COVID-19 2022-04-12 Completed Unive rsity of VACCINE - (MODERNA) 00:00:00 [facility] SARS-COV-2 COVID-19 2022-04-12 Completed Unive rsity of VACCINE - (MODERNA) 00:00:00 [facility] SARS-COV-2 COVID-19 2022-04-12 Completed Unive rsity of VACCINE - (MODERNA) 00:00:00 [facility] SARS-COV-2 COVID-19 2022-04-12 Completed Unive rsity of VACCINE - (MODERNA) 00:00:00 [facility] SARS-COV-2 COVID-19 2022-04-12 Completed Unive rsity of VACCINE - (MODERNA) 00:00:00 [facility] SARS-COV-2 COVID-19 2022-04-12 Completed Unive rsity of VACCINE - (MODERNA) 00:00:00 [facility] SARS-COV-2 COVID-19 2022-04-12 Completed Unive rsity of VACCINE - (MODERNA) 00:00:00 [facility] SARS-COV-2 COVID-19 2021-10-12 Completed Unive rsity of MODERNA 12+ YRS 00:00:00 [facility] SARS-COV-2 COVID-19 2021-10-12 Completed Unive rsity [...] rsity of MODERNA 12+ YRS 00:00:00 [place] [facility] ical VACCINE Branch SARS-COV-2 COVID-19 2021-09-14 Completed Unive rsity of MODERNA 12+ YRS 00:00:00 [place] [facility] ical VACCINE Branch SARS-COV-2 COVID-19 2021-09-14 Completed Unive rsity of MODERNA 12+ YRS 00:00:00 [place] [facility] ical VACCINE Branch SARS-COV-2 COVID-19 2021-09-14 Completed Unive rsity of MODERNA 12+ YRS 00:00:00 [place] [facility] ical VACCINE Branch SARS-COV-2 COVID-19 2021-09-14 Completed Unive rsity of MODERNA 12+ YRS 00:00:00 [place] [facility] ical VACCINE Branch SARS-COV-2 COVID-19 2021-09-14 Completed Unive rsity of MODERNA 12+ YRS 00:00:00 [facility] ical VACCINE Branch SARS-COV-2 COVID-19 2021-09-14 Completed Unive rsity of MODERNA 12+ YRS 00:00:00 [facility] ical VACCINE Branch SARS-COV-2 COVID-19 2021-09-14 Completed Unive rsity of MODERNA 12+ YRS 00:00:00 [facility] VACCINE Branch Influenza Virus 2018-12-16 Completed Universit y of Vaccine Quad IM 3+ 00:00:00 [facility] Influenza Virus 2018-12-16 Completed Universit y of Vaccine Quad IM 3+ 00:00:00 [facility] Influenza Virus 2018-12-16 Completed Universit y of Vaccine Quad IM 3+ 00:00:00 [facility] Influenza Virus 2018-12-16 Completed Universit y of Vaccine Quad IM 3+ 00:00:00 [facility] Influenza Virus 2018-12-16 Completed Universit y of Vaccine Quad IM 3+ 00:00:00 [facility] Influenza Virus 2018-12-16 Completed Universit y of Vaccine Quad IM 3+ 00:00:00 [facility] Influenza Virus 2018-12-16 Completed Universit y of Vaccine Quad IM 3+ 00:00:00 [facility] Influenza Virus 2018-12-16 Completed Universit y of Vaccine Quad IM 3+ 00:00:00 [facility] Influenza Virus 2018-12-16 Completed Universit y of Vaccine Quad IM 3+ 00:00:00 [facility] Influenza Virus 2018-12-16 Completed Universit y of Vaccine Quad IM 3+ 00:00:00 [facility] Influenza Virus 2018-12-16 Completed Universit y of Vaccine Quad IM 3+ 00:00:00 [facility] Influenza Virus 2018-12-16 Completed Universit y of Vaccine Quad IM 3+ 00:00:00 [facility] Influenza Virus 2018-12-16 Completed Universit y of Vaccine Quad IM 3+ 00:00:00 [facility] Influenza Virus 2018-12-16 Completed Universit y of Vaccine Quad IM 3+ 00:00:00 [facility] Influenza Virus 2018-12-16 Completed Universit y of Vaccine Quad IM 3+ 00:00:00 [facility] Influenza Virus 2018-12-16 Completed Universit y of Vaccine Quad IM 3+ 00:00:00 [facility] Influenza Virus 2018-12-16 Completed Universit y of Vaccine Quad IM 3+ 00:00:00 [facility] Influenza Virus 2018-12-16 Completed Universit y of Vaccine Quad IM 3+ 00:00:00 [facility] Influenza Virus 2018-12-16 Completed Universit y of Vaccine Quad IM 3+ 00:00:00 [facility] Influenza Virus 2018-12-16 Completed Universit y of Vaccine Quad IM 3+ 00:00:00 [facility] Influenza Virus 2018-12-16 Completed Universit y of Vaccine Quad IM 3+ 00:00:00 [facility] Influenza Virus 2018-12-16 Completed Universit y of Vaccine Quad IM 3+ 00:00:00 [facility] Influenza Virus 2018-12-16 Completed Universit y of Vaccine Quad IM 3+ 00:00:00 [facility] Influenza Virus 2018-12-16 Completed Universit y of Vaccine Quad IM 3+ 00:00:00 [facility] Influenza Virus 2018-12-16 Completed Universit y of Vaccine Quad IM 3+ 00:00:00 [facility] Influenza Virus 2018-12-16 Completed Universit y of Vaccine Quad IM 3+ 00:00:00 [facility] Influenza Virus 2018-12-16 Completed Universit y of Vaccine Quad IM 3+ 00:00:00 [facility] Influenza Virus 2018-12-16 Completed Universit y of Vaccine Quad IM 3+ 00:00:00 [facility] Influenza Virus 2018-12-16 Completed Universit y of Vaccine Quad IM 3+ 00:00:00 [facility] Influenza Virus 2018-12-16 Completed Universit y of Vaccine Quad IM 3+ 00:00:00 [facility] Branch Influenza Virus 2018-12-16 Completed Universit y of Vaccine Quad IM 3+ 00:00:00 [facility] Influenza Virus 2018-12-16 Completed Universit y of Vaccine Quad IM 3+ 00:00:00 [facility] Vital Signs Vital Name Observation Time Observation Value Comments Source Systolic blood 2022-12-29 14:32:00 116 mm[Hg] Univer sity of pressure [facility] Diastolic blood 2022-12-29 14:32:00 80 mm[Hg] Unive rsity of pressure [facility] Heart rate 2022-12-29 14:32:00 82 /min Universi ty of [facility] Body temperature 2022-12-29 14:32:00 36.72 [place] Univ ersity of [facility] Respiratory rate 2022-12-29 14:32:00 18 /min Univ ersity of [facility] [place] [facility] Body height 2022-12-29 14:32:00 162.6 cm [facility] Body weight 2022-12-29 14:32:00 109.226 kg [facility] BMI 2022-12-29 14:32:00 41.33 kg/m2 [facility] Systolic blood 2022-11-15 22:35:00 115 mm[Hg] [facility]iver [facility]ity [facility] Diastolic blood 2022-11-15 22:35:00 77 mm[Hg] Unive rsity of pressure [facility] Heart rate 2022-11-15 22:35:00 74 /min [facility] Body temperature 2022-11-15 22:35:00 36.67 Sury [facility] Respiratory rate 2022-11-15 22:35:00 18 /min Univ [facility] Body height 2022-11-15 22:35:00 162.6 cm [facility] Body weight 2022-11-15 22:35:00 111.041 kg [facility] BMI 2022-11-15 22:35:00 42.02 kg/m2 [facility] Systolic blood 2022-10-31 21:55:00 120 mm[Hg] [facility] Diastolic blood 2022-10-31 21:55:00 82 mm[Hg] Unive rsity of pressure [facility] Heart rate 2022-10-31 21:55:00 90 /min [facility] Respiratory rate 2022-10-31 21:55:00 18 /min Univ ersity of [facility] Body height 2022-10-31 21:55:00 162.6 cm [facility] Body weight 2022-10-31 21:55:00 111.131 kg [facility] BMI 2022-10-31 21:55:00 42.05 kg/m2 [facility] Systolic blood 2022-10-18 15:58:00 110 mm[Hg] Univer sity of pressure [facility] Diastolic blood 2022-10-18 15:58:00 75 mm[Hg] Unive rsity of pressure [facility] Heart rate 2022-10-18 15:58:00 92 /min [facility] Body temperature 2022-10-18 15:58:00 36.89 Sury Univ ers[facility] of [facility] Respiratory rate 2022-10-18 15:58:00 16 /min Univ ersity of [facility] Body height 2022-10-18 15:58:00 162.6 cm [facility] Body weight 2022-10-18 15:58:00 110.678 kg [facility] BMI 2022-10-18 15:58:00 41.88 kg/m2 [facility] Oxygen saturation in 2022-10-18 15:58:00 97 /min University Arterial blood by [facility] Pulse oximetry Branch HEIGHT 2021-12-17 23:33:00 162.6 cm WEIGHT 2021-12-17 21:14:00 104.781 kg HEIGHT 2021-12-17 23:33:00 162.6 cm WEIGHT 2021-12-17 21:14:00 104.781 kg Systolic blood 2021-12-12 22:09:00 119 mm[Hg] Univer sity of pressure [facility] Diastolic blood 2021-12-12 22:09:00 76 mm[Hg] Unive rsity of pressure [facility] Heart rate 2021-12-12 22:09:00 106 /min [facility] Body temperature 2021-12-12 22:09:00 36.83 [facility]ury [facility] Body height 2021-12-12 22:09:00 162.6 cm [facility] Body weight 2021-12-12 22:09:00 105.96 kg Universi [facility] BMI 2021-12-12 22:09:00 40.10 kg/m2 [facility] Oxygen saturation in 2021-12-12 22:09:00 98 /min [facility] Arterial blood by [facility] Pulse oximetry Branch BP Diastolic 2020-04-13 00:00:00 83 mm[Hg] [facility] Height 2020-04-13 00:00:00 64 [in_i] [facility] BMI (Body Mass 2020-04-13 00:00:00 36.5 kg/m2 [facility] staff genetic counselor Medical Index) Group BP Systolic 2020-04-13 00:00:00 118 mm[Hg] [facility] Body Weight 2020-04-13 00:00:00 212.8 [lb_av] [facility] Systolic blood 2021-12-18 12:35:00 120 mm[Hg] [facility] Diastolic blood 2021-12-18 12:35:00 90 mm[Hg] [facility] Heart rate 2021-12-18 12:35:00 79 /min [facility] Body temperature 2021-12-18 12:35:00 36.56 Sury [facility] Respiratory rate 2021-12-18 12:35:00 18 /min [facility] Oxygen saturation in 2021-12-18 12:35:00 96 /min [facility] Arterial blood by Medical nter Pulse oximetry Body height 2021-12-17 23:33:00 162.6 cm [facility] Body weight 2021-12-17 21:14:00 104.781 kg [facility] BMI 2021-12-17 21:14:00 39.65 kg/m2 [facility] Procedures Procedure Date / Time Performing Clinician Source Performed US PELVIS COMPLETE WITH 2023-02-02 16:35:18 Jose Angel Peralta [facility] TRANSVAGINAL [facility] POCT TEST 2022-12-29 15:22:00 Dulce Weeks [facility] PATIENT FINANCIAL 2022-12-29 14:22:26 Doctor Quesada, [facility] POLICY [facility] GC & CHLAMYDIA AMPLIFIED 2022-11-15 22:38:00 Jose Angel Peralta [facility] TRICHOMONAS AMPLIFIED 2022-11-15 22:38:00 Jose Angel Peralta [facility] CONSENT FOR CONTRACEPTION 2022-11-15 06:01:00 Doctor Quesada [facility] US PELVIS COMPLETE WITH 2022-10-31 00:48:02 [facility] NOTICE OF PRIVACY 2022-10-31 00:03:57 Doctor Dipak, [facility] PRACTICES [facility] CONSENT/REFUSAL FOR 2022-10-31 00:03:31 Doctor Quesada [facility] DIAGNOSIS AND TREATMENT [facility] ASSIGNMENT OF BENEFITS 2022-10-31 00:03:08 Doctor Quesada, [facility] POCT TEST 2022-10-31 00:00:00 Jose Angel Peralta [facility] INSURANCE CORRESPONDENCE 2022-10-25 06:01:00 Doctor Quesada [facility] CBC WITH DIFF 2022-10-18 17:18:00 Jose Angel Peralta [facility] ASSIGNMENT OF BENEFITS 2022-10-18 15:41:13 Doctor Dipak [facility] Name Medical Coventry URINALYSIS W/ REFLEX 2021-12-18 10:11:00 Marylu Tiwari [facility] URINE CULTURE Center BLOOD CULTURE 2021-12-18 03:39:00 Chad Dickey [facility] BASIC METABOLIC PANEL 2021-12-18 03:39:00 Chad Dickey [facility] CBC W/PLT COUNT & AUTO 2021-12-18 03:39:00 Chad Dickey [facility] DIFFERENTIAL Center CBC W/PLT COUNT & AUTO 2021-12-18 03:39:00 Chad Dickey [facility] DIFFERENTIAL Center BLOOD CULTURE 2021-12-17 23:54:00 Chad Dickey [facility] EKG-SCANNED 2021-12-17 00:00:00 ProviderJasbir [facility] Scanning [place] Plan of Care Planned Activity Planned Date Details Comments Source Future Scheduled 2023-06-[address] [facility] 00:00:00 (Season Ended) [code = Medic al Center INFLUENZA VACCINE (Season Ended)] Future Scheduled 2023-06-[address] [facility] Test 00:00:00 (Season Ended) [code = Medic al Center INFLUENZA VACCINE (Season Ended)] Future Scheduled 2023-06-[address] [facility] Test 00:00:00 (Season Ended) [code = Medic al Center INFLUENZA VACCINE (Season Ended)] Future Scheduled 2023-06-29 Influenza Vaccine (#1) [facility] 00:00:00 [code = Influenza Medical Ce nter Vaccine (#1)] Future Scheduled 2022-10-[address] [facility] Test 00:00:00 (12+) [code = DEPRESSION Med ical Center SCREENING (12+)] Future Scheduled 2022-10-[address] [facility] Test 00:00:00 (12+) [code = DEPRESSION Med ical Center SCREENING (12+)] Future Scheduled 2022-10-[address] [facility] Test 00:00:00 (12+) [code = DEPRESSION Med ical Center SCREENING (12+)] Future Scheduled 2022-10-[address] [facility] Test 00:00:00 (12+) [code = DEPRESSION Med ical Center SCREENING (12+)] Future Scheduled 2022-06-29 INFLUENZA VACCINE (#1) [facility] 00:00:00 [code = INFLUENZA Medical Ce nter VACCINE (#1)] Future Scheduled 2022-03-12 COVID-19 VACCINE (3 - [facility] 00[facility]00 Booster for [facility] series) [code = COVID-19 VACCINE (3 - Booster for Moderna series)] Future Scheduled 2021-12-07 COVID-19 VACCINE (3 - [facility] 00:00:00 [facility] series) [code = COVID-19 VACCINE (3 - Booster for Moderna series)] Future Scheduled 2021-12-07 COVID-19 VACCINE (3 - [facility] 00:00:00 Booster for [facility] series) [code = COVID-19 VACCINE (3 - Booster for Moderna series)] Future Scheduled 2021-12-07 COVID-19 VACCINE (3 - [facility] 00:00:00 Booster for [facility] series) [code = COVID-19 VACCINE (3 - Booster for Moderna series)] Future Scheduled 2021-12-07 COVID-19 VACCINE (3 - [facility] 00:00:00 Booster for [facility] series) [code = COVID-19 VACCINE (3 - Booster for Moderna series)] Future Scheduled 2021-10-[address] [facility] Test 00:00:00 (12+) [code = DEPRESSION [facility] SCREENING (12+)] Diagnostic Test 2020-04-13 CBC w/ auto diff [code = [place] [facility] Pending 00:00:00 CBC w/ auto diff] Group Diagnostic Test 2020-04-13 CMP, serum or plasma [facility] 00:00:00 [code = CMP, serum or Group plasma] Diagnostic Test 2020-04-13 lipid panel, serum [code [facility] Pending 00:00:00 = lipid panel, serum] Group Diagnostic Test 2020-04-13 HBsAg [facility]patitis [facility] Pending 00:00:00 surface Ag), serum [code Deb up = HBsAg (hepatitis B surface Ag), serum] Diagnostic Test 2020-04-13 HIV (1+2) Ab screen, [facility] Pending 00:00:00 serum [code = HIV (1+2) Grou p Ab screen, serum] Diagnostic Test 2020-04-13 RPR (rapid plasma [facility] Pending 00:00:00 reagin), serum [code = Group RPR (rapid plasma reagin), serum] Diagnostic Test 2020-04-13 TSH + free T4, serum [facility] Pending 00:00:00 [code = TSH + free T4, Group serum] Diagnostic Test 2020-04-13 pap, LB + HPV [code = [facility] Pending 00:00:00 pap, LB + HPV] Group Diagnostic Test 2020-04-13 CT + NG + TV, DNA, [facility] staff genetic counselor Medical Pending 00:00:00 urine/swab [code = CT + Grou p NG + TV, DNA, urine/swab] Future Scheduled 2011 Screening for malignant [facility] Test 00:00:00 neoplasm of cervix Medical C enter (procedure) [code = 889560164] Future Scheduled 2011 Screening for malignant [facility] Test 00:00:00 neoplasm of cervix Medical C enter (procedure) [code = 731940730] Future Scheduled 2011 Screening for malignant [facility] Test 00:00:00 neoplasm of cervix Medical C enter (procedure) [code = 923137717] Future Scheduled 2011 Screening for malignant [facility] Test 00:00:00 neoplasm of cervix Medical C enter (procedure) [code = 960872188] Future Scheduled 2011 Screening for malignant [facility] Test 00:00:00 neoplasm of cervix Medical C enter (procedure) [code = 100297642] Future Scheduled 2010 Lipid panel (procedure) [facility] Test 00:00:00 [code = 86539702] Medical Ce nter Future Scheduled 2010 Lipid panel (procedure) [facility] Test 00:00:00 [code = 28070124] Medical Ce nter Future Scheduled 2010 Lipid panel (procedure) [facility] Test 00:00:00 [code = 53604361] Medical Ce nter Future Scheduled 2010 Lipid panel (procedure) [facility] Test 00:00:00 [code = 33666786] Medical Ce nter Future Scheduled 2010 Lipid panel (procedure) [facility] Test 00:00:00 [code = 96612926] Medical Ce nter Future Scheduled 2009 DTAP/TDAP/TD VACCINES ([address] [facility] 00:00:00 - Tdap) [code = Medical Cent er DTAP/TDAP/TD VACCINES (1 - Tdap)] Future Scheduled 2009 DTAP/TDAP/TD VACCINES ([address] [facility] Test 00:00:00 - Tdap) [code = Medical Cent er DTAP/TDAP/TD VACCINES (1 - Tdap)] Future Scheduled 2009 DTAP/TDAP/TD VACCINES ([address] [facility] Test 00:00:00 - Tdap) [code = Medical Cent er DTAP/TDAP/TD VACCINES (1 - Tdap)] Future Scheduled 2009 DTAP/TDAP/TD VACCINES ([address] [facility] 00:00:00 - Tdap) [code = Medical Cent er DTAP/TDAP/TD VACCINES (1 - Tdap)] Future Scheduled 2009 DTAP/TDAP/TD VACCINES ([address] [facility] 00:00:00 - Tdap) [code = Medical Cent er DTAP/TDAP/TD VACCINES (1 - Tdap)] Future Scheduled 2008 HEPATITIS C SCREENING [facility] 00:00:00 [code = HEPATITIS C Medical Center SCREENING] Future Scheduled 2008 HEPATITIS C [facility]CRE[facility]ING [facility] 00:00:00 [code = HEPATITIS C Medical Center SCREENING] Future Scheduled 2008 HEPATITIS C [facility]CRE[facility]ING [facility] 00:00:00 [code = HEPATITIS C Medical Center SCREENING] Future Scheduled 2008 HEPATITIS C [facility]CRE[facility]ING [facility] 00:00:00 [code = HEPATITIS C Medical Center SCREENING] Future Scheduled 2008 HEPATITIS C [facility]CRE[facility]ING [facility] 00:00:00 [code = HEPATITIS C Medical Center SCREENING] Future Scheduled [address] [facility] 00:00:00 virus screening Medical Cent er (procedure) [code = 528254691] Future Scheduled [address] [facility] Test 00:00:[address] [facility] (12+) [code = Tobacco Cessation Counseling and Screening (12+)] Future Scheduled [address] [facility] Test 00:00:00 Counseling and Screening Med ical Center (12+) [code = Tobacco Cessation Counseling and Screening (12+)] Future Scheduled [address] [facility] Test 00:00:00 Counseling and Screening Med ical Center (12+) [code = Tobacco Cessation Counseling and Screening (12+)] Future Scheduled [address] [facility] Test 00:00:00 Counseling and Screening Med ical Center (12+) [code = Tobacco Cessation Counseling and Screening (12+)] Future Scheduled [address] [facility] Test 00:00:00 Counseling and Screening Med ical Center (12+) [code = Tobacco Cessation Counseling and Screening (12+)] Encounters Start End Encounter Admission Attending Care Care Encounter Source Date/Time Date/Time Type Type Clinicians Facility Department ID 2021-08-30 Emergency [facility] [id number] Univers 00:49:50 ity [facility] 2023-02-02 2023-02-02 Outpatient R JOSE ANGEL PERALTA [facility] B [id number] Univers 10:57:29 23:59:00 [facility] 2023-02-02 2023-02-02 [facility] [id number] Univers 10:57:29 23:59:00 Encounter Jose Angel WHALEY [id number] ity of [place] 4.2.7.2.686 [facility] [id number] [facility] [address] 2023-01-08 2023-01-08 Telephone [facility] [id number] Univers 00:00:00 00:00:00 Dulce WHALEY 350.1.13.10 ity of [place] 4.2.7.2.686 [facility] [id number] Hi dical [facility] [address] [facility] 2023-01-02 2023-01-02 [facility] 1.2.840.114 [id number] Univers 00:00:00 00:00:00 Secure Msg Zelda WHALEY 350.1.13.10 it[facility] [place] [phone] Hi dic[address] 2023-01-02 2023-01-02 [facility] 1.2.840.114 [id number] Univers 00:00:00 00:00:00 Dulce SCRUGGS 350.1.13.10 i ty [place] [facility] [id number] [address] 2022-12-29 2022-12-29 Outpatient R [facility] [id number] Univers 09:00:00 09:23:08 DULCE ity of [facility] 2022-12-29 2022-12-29 Office [facility] 1.2.840.114 [id number] Univers 09:00:00 09:23:08 Visit Dulce WHALEY 350.1.13.10 it[place] [id number] [address] 2022-12-29 2022-12-29 Orders Doctor AMBREEN 1.2.840.114 [id number] Univers 00:00:00 00:00:00 Only Unassigned, DONY 350.1.13.10 ity of [place] [facility] 4.2.7.2.686 Elan as [id number] [address] 2022-12-29 2022-12-29 Letter [facility] 1.2.840.114 [id number] Univers 00:00:00 00:00:00 (Out) Dulce WHALEY 350.1.13.10 ity [place] [id number] Hi dic[address] 2022-12-28 2022-12-28 Telephone [facility] 1.2.840.11 [id number] Univers 00:00:00 00:00:00 Jose Angel SCRUGGS 350.1.13.10 it y [place] [id number] [address] 2022-12-28 2022-12-28 Telephone [facility] 1.2.840.11 [id number] Univers 00:00:00 00:00:00 Jose Angel SCRUGGS 350.1.13.10 it y [place] [id number] [facility] [address] 2022-11-15 2022-11-15 Office [facility] 1.2.840.114 [id number] Univers 15:00:00 17:23:28 Visit Jose Angel SCRUGGS 350.1.13.10 it y [place] [id number] [address] 2022-11-15 2022-11-15 Outpatient R JOSE ANGEL PERALTA [facility] B [id number] Univers 15:00:00 17:23:28 [facility] 2022-11-15 2022-11-15 Orders Doctor AMBREEN 1.2.840.114 [id number] Univers 00:00:00 00:00:00 Only Unassigned, DONY 350.1.13.10 ity of [place] [facility] 4.2.7.2.686 Elan as [id number] [facility] [address] Branch 2022-11-08 2022-11-08 Pre Visit PHU MayenYordan [id number] [id number] Univers 00:00:00 00:00:00 Outreach Khloe DENGY 350.1.13.10 [place] [id number] [facility] 086 Branch 2022-10-31 2022-10-31 Office [facility] 1.2.840.114 [id number] Univers 16:30:00 16:30:00 Visit Jose Angel SCRUGGS 350.1.13.10 it y [place] [id number] [facility] [address] 2022-10-31 2022-10-31 Outpatient R JOSE ANGEL PERALTA [facility] B [id number] Univers 16:30:00 16:13:04 JOSE ANGEL PERALTA ity [facility] 2022-10-30 2022-10-30 Outpatient R JOSE ANGEL PERALTA [facility] B [id number] Univers 18:05:11 23:59:00 JOSE ANGEL PERALTA ity [facility] 2022-10-30 2022-10-30 [facility] 1.2.840.114 [id number] Univers 18:05:11 23:59:00 Encounter [facility] 350.1.13.10 ity of [place] 4.2.7.2.686 [facility] [id number] [facility] [address] 2022-10-27 2022-10-27 Telemedici Prisca Vilchis [facility] 1.2.8 40.114 [id number] Univers 10:30:00 10:30:00 ne Visit 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 4.2.7.2.686 [place]an as MATERNAL [id number] Med ical & CHILD [address] [place] [address] 2022-10-27 2022-10-27 Outpatient R CYRUS SHULTZ [facility] [id number] Univers 10:30:00 10:23:21 ity of [facility] 2022-10-25 2022-10-25 Telephone [facility] 1.2.840.11 [id number] Univers 00:00:00 00:00:00 Jose Angel SCRUGGS 350.1.13.10 it y of [place] 4.2.7.2.686 [facility] [id number] [facility] [address] 2022-10-25 2022-10-25 Orders Doctor AMBREEN 1.2.840.114 [id number] Univers 00:00:00 00:00:00 Only Unassigned, DONY 350.1.13.10 ity of [place] [facility] 4.2.7.2.686 Elan as [id number] [facility] 009 Branch 2022-10-20 2022-10-20 Telephone [facility] 1.2.840.11 [id number] Univers 00:00:00 00:00:00 Jose Angel SCRUGGS 350.1.13.10 it [place] [id number] 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 10 ity [facility] 4.2.7.2.[place] [id number] Hi dical [facility] [address] [facility] 2022-10-18 2022-10-18 Outpatient R JOSE ANGEL PERALTA [facility] B [id number] Univers 10:00:00 10:16:19 [facility] 2022-10-18 2022-10-18 Office Yaquelin [facility] 1.2.840.114 [id number] Univers 10:00:00 10:16:19 Visit Jose Angel SHEBA 350.1.13.10 it y [place] [id number] [address] 2022-10-18 2022-10-18 Orders Doctor AMBREEN 1.2.840.114 [id number] Univers 00:00:00 00:00:00 Only Unassigned, DONY 350.1.13.10 ity of [place] [facility] 4.2.7.2.686 Elan as [id number] [facility] [address] 2022 2022 Outpatient DICMAYE_ GAURAV NOLASCO [address] [place] 00:00:00 00:00:00 NENITA [facility] 2021-12-22 2021-12-22 Outpatient ISHAN MARION [facility] [id number] Univers 08:30:00 08:30:00 ity [facility] 2021-12-22 2021-12-22 Outpatient ISHAN MARION [facility] [id number] Univers 08:30:00 08:30:00 ity [facility] 2021-12-21 2021-12-21 Outpatient Wendy BENNETTISHAN [facility] [id number] Univers 15:00:00 15:00:00 ity of [facility] 2021-12-17 2021-12-18 Inpatient AGUSTIN MEJIA Neurology [id number] SLE 21:02:00 15:18:00 MARYLU 2021-12-17 2021-12-[address] [facility] [id number] [facility] 21:02:00 15:18:00 Encounter Edgardo Jacobs [facility] 2021-12-18 2021-12-18 Travel [facility] [id number] [facility] 00:00:00 00:00:00 [facility] 2021-12-14 2021-12-14 Telephone [facility] [id number] Univers 00:00:00 00:00:00 Nila HEALTH 350.1.13.10 it y of [place] 4.2.7.2.686 Elna as BARRON?BLEA [id number] [address] OFFICE [facility] 2021-12-13 2021-12-13 [id number] Univers 00:00:00 00:00:00 Nila HEALTH 350.1.13.10 it y of [place] 4.2.7.2.686 Elan as BARRON?BLEA [id number] [address] OFFICE [facility] 2021-12-13 2021-12-13 Telephone [place] [id number] Univers 00:00:00 00:00:00 Nila HEALTH 350.1.13.10 it y of [place] 4.2.7.2.686 Elan as BARRON?BLEA [id number] [address] OFFICE [facility] 2021-12-13 2021-12-13 [id number] Univers 00:00:00 00:00:00 Nila HEALTH 350.1.13.10 it y of [place] 4.2.7.2.686 Elan as BARRON?BLEA [id number] Hi dicmatthias SCHWARTZ 044 [facility] OFFICE [facility] 2021-12-12 2021-12-12 Outpatient R AMANDA [facility] [id number] Univers 16:00:00 16:51:41 NILA rigo [facility] 2021-12-12 2021-12-12 [facility] 1.2.840.114 [id number] Univers 16:00:00 16:51:41 Visit Critical access hospital 350.1.13.10 it y of [place] 4.2.7.2.686 Elan as BARRON?BLEA [phone] Hi zuleima [address] OFFICE [facility] 2021-12-12 2021-12-12 Outpatient R WEIAlisia [facility] [id number] Univers 16:00:00 16:51:41 NILA [facility] 2021-12-12 2021-12-12 Letter [facility] 1.2.840.114 [id number] Univers 00:00:00 00:00:00 (Out) Nila [facility] 350.1.13.10 it y of [place] 4.2.7.2.686 Elan as BARRON?BLEA [id number] Hi zuleima SCHWARTZ [address] [place] [address] OFFICE [facility] 2021-10-12 2021-10-12 Outpatient R LYDIA [facility] [id number] Univers 09:10:00 09:10:00 ZELDA [facility] 2021-10-12 2021-10-12 Outpatient R JOHN [facility] [id number] Univers 09:00:00 09:00:00 AIDAN angulo [facility] 2021-10-12 2021-10-12 Imm/Inj Nurse, Adc Pob Immunization [facility] 1.2.840.114 [id number] Univers 09:00:00 09:00:00 Visit Aidan Reynoso 350.1.13 .10 ity [facility] [place] PROFESSIO [phone] Hi zuleima [facility] [address] [facility] 2021-10-12 2021-10-12 Outpatient R JOHN [facility] [id number] Univers 08:00:00 08:00:00 AIDAN angulo [facility] 2021-09-14 2021-09-14 Outpatient R JOHN [facility] [id number] Univers 09:30:00 09:30:00 AIDAN angulo [facility] 2021-09-14 2021-09-14 Imm/Inj Nurse, Adc Pob Immunization [facility] 1.2.840.114 [id number] Univers 09:01:10 09:01:24 Visit John Aidan WHALEY 350.1.13 .10 ity of [place] [facility] [phone] [facility] [address] [facility] 2021-08-20 2021-08-20 Reffernando Villegas [facility] 1.2.840.114 [id number] Univers 00:00:00 00:00:00 [facility] 350.1.13.10 it y [facility] 4.2.7.2.686 Elan as BARRON?BLEA [phone] [facility] 370 [facility] OFFICE [facility] 2021-07-29 2021-07-29 Urgent Gisell Villegas [facility] 1.2.840.114 [id number] Univers 10:14:01 10:34:01 Care Unknown, [facility] 350.1.13.10 ity of [place] 4.2.7.2.686 Elan as Barron?Blea [phone] [address] 2021-07-29 2021-07-29 Outpatient R UNKNOWN, [facility] [id number] Univers 10:20:00 10:20:00 ATTENDING ity [facility] 2021-07-21 2021-07-21 Emergency Alesha, Vanessa [facility] 1.2.840.114 [id number] Univers 10:06:00 11:06:00 Josefina Whaley 350.1.13.10 i ty [place] [phone] [facility] [address] 2021-07-19 2021-07-19 Orders Doctor CROOK 1.2.840.114 [id number] Univers 00:00:00 00:00:00 Only Unassigned, DONY 350.1.13.10 ity of [place] [facility] 4.2.7.2.686 Elan as [phone] [address] 2021-07-05 2021-07-05 Telephone [facility] 1.2.840.114 [id number] [facility] 00:00:00 00:00:00 Zelda Whaley 350.1.13.10 ity [place] Profess[place] [phone] [facility] [address] [facility] 2021-06-02 2021-06-02 Laboratory Lab, [facility] Fam Pob I [facility] 1.2. 840.114 [id number] [facility] 20:27:39 20:47:39 Only Ebrahim, [facility] 350.1.13.10 ity of [place] 4.2.7.2.686 Elan as Professio [phone] [facility] [address] Office [facility] 2021-06-02 2021-06-02 Laboratory Lab, [facility] 1.2.840.114 [id number] 20:27:39 20:47:39 Only Fam Pob I Health 350.1.13.10 [place] 4.2.7.2.686 Professio [phone] [address] 2021-06-02 2021-06-02 Outpatient R BANDAR [facility] [id number] [facility] 20:20:00 20:20:00 RANIA ity of [facility] 2021-06-02 2021-06-02 Outpatient DICLEMENTJose D_ GAURAV [facility] [address] [place] 11:05:00 11:05:00 NENITA 08[facility]re [facility] 2021-06-02 2021-06-02 Orders Doctor CROOK 1.2.840.[id number] [place] [address] 00:00:00 00:00:00 Only Unassigned, DONY 350.1.13.10 ity of [place] [facility] 4.2.7.2.686 Elan as [phone] [address] 2021-06-02 2021-06-02 [facility]phone [facility] 1.2.840.114 [id number] Univers 00:00:00 00:00:00 Zelda Whaley 350.1.13.10 [place] Profess[place] [phone] Hi dic[address] 2021-06-02 2021-06-02 Orders Doctor AMBREEN 1.2.840.114 [id number] 00:00:00 00:00:00 Only Unassigned, DONY 350.1.13.10 [place] [facility] 4.2.7.2.686 [phone] 009 2021-06-02 2021-06-02 Teddy [facility] 1.2.840.114 [id number] 00:00:00 00:00:00 Zelda Whaley 350.1.13.10 [place] 4.2.7.2.686 Professio [phone] [address] 2021-01-18 2021-01-18 [facility] 1.2.840.114 [id number] [facility] 00:00:00 00:00:00 Outreach Aidan PRIMARY 350.1.13.10 i ty of [facility] [place].2.7.2.[place] [phone] [address] 2021-01-18 2021-01-18 Patient John [facility] 1.2.840.114 [id number] 00:00:00 00:00:00 Outreach Aidan PRIMARY 350.1.13.10 Julio C CARE 4.2.7.2.686 PAVILLION [phone] [facility] 2020-09-15 2020-09-15 Outpatient Teresita PHILLIPS [facility] [id number] [place] 02:40:00 02:40:00 [facility] 2020-05-24 2020-05-24 Outpatient [facility] [id number] [facility] 08:40:00 08:40:00 ZELDA angulo [facility] 2020-04-14 2020-04-14 Outpatient Teresita PHILLIPS [facility] [id number] [place] 05:40:00 05:40:00 0619 [facility] Group 2020-04-13 2020-04-13 Outpatient Teresita PHILLIPS [facility] [id number] [place] 07:38:00 07:38:00 0616 Medical Group 2020-04-13 2020-04-13 Maia MMG [place] - [id number] M at[place] 00:00:00 00:00:00 Alex Cazares [facility] brina STEINER: [address] [facility] [address], [place] [address] , Ph. [phone] 2020-01-23 2020-03-12 Telemedici [facility] 1.2.840.114 [id number] [facility] 11:11:01 16:10:25 ne Visit Matt [place] 350.1.13.10 ity [place] Profess[place] [phone] [address] 2020-01-23 2020-03-12 Telemedici [facility] 1.2.840.114 [id number] 11:11:01 16:10:25 ne Visit Matt [place] 350.1.13.10 [place] 4.2.7.2.686 Professio [phone] [address] 2020-02-23 2020-02-26 Outpatient BRIAN, SW MED 0118 SW 14:38:00 13:00:00 CYRUS 2020-02-22 2020-02-23 Inpatient U APOLINAR, FB MED 0117 MHFB 19:57:00 13:45:00 CAM 2020-01-30 2020-01-30 Telemedici [facility] 1.2.840.114 [id number] [facility] 08:10:50 15:55:51 ne Visit Matt [place] 350.1.13.10 ity [place] Profess[place] [phone] [address] 2020-01-30 2020-01-30 Outpatient R [facility] [id number] [facility] 10:45:00 10:45:00 MATT angulo of [facility] 2020-01-27 2020-01-27 Telephone [facility] 1.2.840.114 [id number] Univers 00:00:00 00:00:00 Matt Whaley 350.1.13.10 i ty [place] [phone] [facility] [address] [facility] 2020-01-27 2020-01-27 Telephone [facility] 1.2.840.114 [id number] Univers 00:00:00 00:00:00 Matt Whaley 350.1.13.10 i ty [place] [phone] [facility] [address] [facility] 2020-01-23 2020-01-23 [id number] Univers 13:15:00 13:15:00 MATT angulo [facility] 2020-01-23 2020-01-23 Telephone [facility] 1.2.840.114 [id number] Univers 00:00:00 00:00:00 Matt Whaley 350.1.13.10 i ty [place] [phone] [facility] [address] [facility] 2020-01-22 2020-01-22 Telemedici [facility] 1.2.840.114 [id number] Univers 08:40:14 12:05:25 ne Visit Zelda Whaley 350.1.13.10 it[place] [phone] [facility] [address] [facility] 2020-01-22 2020-01-22 Outpatient R LYDIA [facility] [id number] Univers 10:40:00 10:40:00 ZELDA angulo [facility] 2019-12-12 2019-12-12 Telephone [facility] 1.2.840.114 [id number] Univers 00:00:00 00:00:00 Zelda Whaley 350.1.13.10 [place] [phone] [facility] [address] [facility] 2019-12-06 2019-12-06 Refill Doctor [place] 1.2.840.114 [id number] Univers 00:00:00 00:00:00 UnassignedLoida 350.1.13.10 ity of [place].2.[place] [phone] [facility] [address] [facility] 2019-12-06 2019-12-06 Refill Freeman, [facility] 1.2.840.114 [id number] Univers 00:00:00 00:00:00 Zelda Whaley 350.1.13.10 ity of [place]2.[place] [phone] [facility] [address] [facility] 2019-10-14 2019-10-14 [facility] [address] [place] 12:28:00 12:28:00 0615 [facility] [...] PREG TEST DATE (test code = 3576) [id number] 15:22:00 Test Item Value Reference Range Interpretation Comments POCT PREG (test code = 1605) Negative On board controls acceptable with C Yes Line (test code = 3574) POCT PREG LOT # (test code = 3575) POCT PREG TEST DATE (test code = 3576) [facility] [id number] 15:22:00 Test Item Value Reference Range Interpretation Comments POCT PREG (test code = 1605) Negative On board controls acceptable with C Yes Line (test code = 3574) POCT PREG LOT # (test code = 3575) POCT PREG TEST DATE (test code = 3576) [facility] [id number] 22:27:00 Test Item Value Reference Range Interpretation Comments POCT PREG (test code = 1605) Negative On board controls acceptable with C Yes Line (test code = 3574) POCT PREG LOT # (test code = 3575) POCT PREG TEST DATE (test code = 3576) [facility] [id number] 22:27:00 Test Item Value Reference Range Interpretation Comments POCT PREG (test code = 1605) Negative On board controls acceptable with C Yes Line (test code = 3574) POCT PREG LOT # (test code = 3575) POCT PREG TEST DATE (test code = 3576) [facility] [id number] 17:37:52 Test Item Value Reference Range Interpretation Comments WBC (test code = See_Comment [Automated 2690-2) message] The sy stem which generated this result transmitted reference range : 4.30 - 11.10 10*3/?L. The reference range was not used to interpret this result as normal/abnormal . RBC (test code = See_Comment [Automated 589-8) message] The sy stem which generated this [...] RDW-SD (test code = 45.0 fL 39.0-49.9 07548-4) RDW-CV (test code = 13.5 % 12.0-15.5 788-0) PLT (test code = See_Comment [Automated 777-3) message] The sy stem which generated this result transmitted reference range : 166 - 358 10*3/ ?L. The reference r flaquito was not used to interpret this result as normal/abnormal . MPV (test code = 10.5 fL 9.5-12.9 92898-5) NRBC/100 WBC (test See_Comment [Automat ed code = 1785289956) message] The system which generated this result transmitted reference range : 0.0 - 10.0 /100 WBCs. The refer ence range was not u sed to interpret th is result as normal/abnormal . NRBC x10^3 (test code See_Comment [Auto mated = 9515471336) message] The s ystem which generated this result transmitted reference range : 10*3/?L. The reference range was not used to interpret this result as normal/abnormal . GRAN MAT (NEUT) % 50.6 % (test code = 770-8) IMM GRAN % (test code 0.50 % = 8226624762) LYMPH % (test code = 39.9 % 736-9) MONO % (test code = 7.3 % 5905-5) EOS % (test code = 1.4 % 713-8) BASO % (test code = 0.3 % 706-2) GRAN MAT x10^3(ANC) 4.40 10*3/uL 1.88-7.09 (test code = 0458608933) IMM GRAN x10^3 (test 0.04 10*3/uL 0.00-0.06 code = 7770649644) LYMPH x10^3 (test code 3.46 10*3/uL 1.32-3.29 H = 731-0) MONO x10^3 (test code 0.63 10*3/uL 0.33-0.92 = 742-7) EOS x10^3 (test code = 0.12 10*3/uL 0.03-0.39 711-2) BASO x10^3 (test code 0.03 10*3/uL 0.01-0.07 = 704-7) Lab Interpretation Abnormal (test code = 36760-9) [facility] (Right Venipuncture) 2021-12-23 06:00:39 Test Item Value Reference Range Interpretation Comments Result (test code = No growth in 5 days 6463-4) [id number] 06:00:39 Test Item Value Reference Range Interpretation Comments CULTURE (BEAKER) (test No growth in 5 days code = 1095) BLOOD [id number] 03:00:36 Test Item Value Reference Range Interpretation Comments CULTURE (BEAKER) (test No growth in 5 days code = 1095) Urinalysis w/Microscopic + Reflex to [id number] 10:45:20 Test Item Value Reference Range Interpretation Comments Color, UA (test Light Yellow code = 5778-6) Clarity, UA (test Clear code = 5767-9) Specific [place], 1.014 1.001-1.035 UA (test code = 5811-5) pH, UA (test code 7.5 5.0-8.0 = 5803-2) Protein, UA (test Negative Negative code = 94514-1) Glucose, UA (test Negative Negative code = 365) Ketones, UA (test Negative Negative code = 2514-8) Bilirubin, UA Negative Negative (test code = 12070-6) Blood, UA (test Negative Negative code = 90245-1) Nitrite, UA (test Negative Negative code = 5802-4) Leukocytes, UA Negative Negative (test code = 5799-2) Urobilinogen, UA 0.2 mg/dL 0.2-1.0 (test code = 57655-5) RBC, UA (test 1 See_Comment [Automated me ssage] code = 20041-7) The system [facility] generated this result transmit aamir reference range : /HPF. The refer ence range was not u sed to interpret th is result as normal/abnormal . WBC, UA (test 1 See_Comment [Automated me ssage] code = 5821-4) The system [facility] generated this result transmit aamir reference range : /HPF. The refer ence range was not u sed to interpret th is result as normal/abnormal . Bacteria, UA Rare (test code = 41863-1) Mucus (test code Rare = 8247-9) Squam Epithel, UA 3 See_Comment [Automate d message] (test code = The system [facility] 30980-1) generated this result transmit aamir reference range : /HPF. The refer ence range was not u sed to interpret th is result as normal/abnormal . Crystals, Urine None Seen (test code = 03793-3) Specimen Source (test code = 2795) SERGIO (test code = Dictating Machine Typist ID - SERGIO) [auto]Dictating Machine Typist ID - tech [facility]FLEX URINE [id number] 10:45:20 Test Item Value Reference Range Interpretation [...] = 1521) SOURCE(BEAKER) (test code = 2795) Dictating Machine Typist ID - [auto]Dictating Machine Typist ID - techBasic metabolic [id number] 04:19:43 Test Item Value Reference Range Interpretation Comments Sodium (test code = 139 meq/L 208-942 3129-2) Potassium (test code = 3.6 meq/L 3.5-5.1 2823-3) Chloride (test code = 108 meq/L 98-107 H 2075-0) CO2 (test code = 25 meq/L 22-29 8-9) BUN (test code = 13 mg/dL 7-21 3094-0) Creatinine (test code 0.84 mg/dL 0.57-1.25 = 2160-0) Glucose (test code = 112 mg/dL 70-105 H 2345-7) Calcium (test code = 9.0 mg/dL 8.4-10.2 85354-6) EGFR (test code = 79 mL/min/1.73 [place] [address]-1) NOT ACCURATE CREATININE CLEARANCE IN PREDICTING GLOMERULAR FILTRATION RATE . ESTIMATED GFR I S NOT APPLICABLE FOR DIALYSIS PATIENTS. SERGIO (test code = SERGIO) Dictating Machine Typist CHUCHO Mireles Lab Interpretation Abnormal (test code = 05685-9) [facility] [id number] 04:19:43 Test Item Value Reference Range Interpretation [...] S NOT APPLICABLE FOR DIALYSIS PATIEN TS. Dictating Machine Typist ID Alicia RYAN [facility]BC with platelet count + automated [id number] 04:14:48 Test Item Value Reference Range Interpretation Comments WBC (test code = 6690-2) 8.8 See_Comment [A utomated message] The system [employer] generated this result transmitted ref erence range: 3.5 - 10 .5 K/L. The refe rence range was not u sed to interpret this result as normal/abnor mal. RBC (test code = 789-8) 4.06 See_Comment [Au tomated message] The system [employer] generated this result transmitted ref erence range: 3.93 - 5 .22 M/L. The refe rence range was not u sed to interpret this result as normal/abnor mal. MCHC (test code = 786-4) 31.2 See_Comment L [A utomated message] The system [employer] generated this result transmitted ref erence range: [...] See_Comment [Aut omated message] 777-3) The system [employer] generated this result transmitted ref erence range: 150 - 45 0 K/CU MM. The referen ce range was not u sed to interpret this result as normal/abnor mal. MPV (test code = 10.5 fL 9.4-12.3 36951-6) nRBC (test code = 413) 0 See_Comment [Aut omated message] The system [employer] generated this result transmitted ref erence range: [...] See_Comment [Aut omated message] 670) The system [employer] generated this result transmitted ref erence range: 1.56 - 6 .13 K/L. The refe rence range was not u sed to interpret this result as normal/abnor mal. # Lymphs (test code = 4.14 See_Comment H [Auto mated message] 414) The system [employer] generated this result transmitted ref erence range: 1.18 - 3 .74 K/L. The refe rence range was not u sed to interpret this result as normal/abnor mal. # Monos (test code = 0.74 See_Comment H [Autom ated message] 415) The system [employer] generated this result transmitted ref erence range: 0.24 - 0 .36 K/L. The refe rence range was not u sed to interpret this result as normal/abnor mal. # Eos (test code = 416) 0.33 See_Comment [Au tomated message] The system [employer] generated this result transmitted ref erence range: 0.04 - 0 .36 K/L. The refe rence range was not u sed to interpret this result as normal/abnor mal. # Baso (test code = 417) 0.04 See_Comment [A utomated message] The system [employer] generated this result transmitted ref erence range: 0.01 - 0 .08 K/L. The refe rence range was not u sed to interpret this result as normal/abnor mal. Immature 0 % 0-1 Granulocytes-Relative (test code = 2801) Lab Interpretation (test Abnormal code = 62073-4) [facility] [place] & AUTO [id number] 04:14:48 Test Item Value Reference Range Interpretation [...] % 0-1 PERCENT (BEAKER) (test code = 5144)
[2023-05-10] MEDS ORDERED: LEVETIRACETAM 500 MG/5 ML VIAL IV ONE (21:07)
[2023-05-10] MEDS ORDERED: NA CHLORIDE 0.9% 1,000 ML ONE (21:07)
[2023-05-10] MEDS ORDERED: NA CHLORIDE 0.9% 100 ML ONE (21:07)
--- NOTE | 2023-05-10 21:12 | RAD REPORT ---
EXAM DESCRIPTION: CT - Head Brain Wo Cont - 05/10/2023 9:03 pm CLINICAL HISTORY: 7 seizures, headache Headache, drowsiness COMPARISON: Head Brain Wo Cont dated 08/08/2022; Head Brain Wo Cont dated 04/27/2022 TECHNIQUE: All CT scans are performed using dose optimization technique as appropriate and may inclu de automated exposure control or mA/KV adjustment according to patient size. FINDINGS: No intracranial hemorrhage, hydrocephalus or extra-axial fluid collection.No areas of brai n edema or evidence of midline shift. The paranasal sinuses and mastoids are clear. The calvarium is intact. IMPRESSION: No acute intracranial abnormality.
--- NOTE | 2023-05-10 21:18 | RAD REPORT ---
EXAM DESCRIPTION: RAD - Chest Single View - 05/10/2023 9:13 pm CLINICAL HISTORY: COUGH Chest pain. COMPARISON: Chest Single View dated 09/26/2022; Chest Single View dated 01/25/2022; Chest Single View dated 06/29/2021; Chest Single View dated 06/18/2021 FINDINGS: Portable technique limits examination quality. The lungs are grossly clear. The heart is normal in size. No displaced fractures. IMPRESSION: No acute intrathoracic process suspected.
[2023-05-10 21:24] LABS: Absolute Lymphocytes (CBC) 4.9 K/uL (0.7-4.9); Hematocrit 36.3 % (36.0-45.0); Lymphocytes % 51.7 % (15.3-44.8); MPV 8.7 fL (7.6-11.3); RBC Red Blood Cell Count 4.22 M/uL (3.86-4.86)
[2023-05-10 21:37] LABS: Potassium 3.8 mEq/L (3.5-5.1)
[2023-05-10 22:48] LABS: Specific Gravity 1.019 (1.005-1.030); Urine Bacteria <20 /HPF (<20); Urine Bilirubin NEGATIVE (Negative); Urine Blood Negative (Negative); Urine Clarity Extremely Turbid (Clear); Urine Color Light-Yellow (Yellow); Urine Glucose NEGATIVE (Negative); Urine Mucus Slight /HPF (None Seen); Urine Protein NEGATIVE (Negative); Urine RBC <5 /HPF (None Seen); Urine Urobilinogen Normal (Normal)
[2023-05-10 22:53] LABS: Specific Gravity 1.019 (1.005-1.030)
[2023-05-11] MEDS ORDERED: ACETAMINOPHEN 325 MG TABLET ONE (00:09)
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
--- NOTE | 2023-05-14 11:54 | EKG ---
Test Date: 2023-05-10 Test Time: 21:16:58 Rest Room Maid: RV MEASUREMENT RESULTS: Intervals: Rate: 97 VT: 170 QRSD: 82 QT: 354 QTc: 449 [place]: P: 37 VT: 170 QRS: 76 T: -4 INTERPRETIVE STATEMENTS: Normal sinus rhythm Nonspecific T wave abnormality Abnormal ECG Compared to ECG 03/04/2023 09:23:35 T-wave abnormality now present Sinus tachycardia no longer present Myocardial infarct finding no longer present Electronically Signed On 05-14-23 11:48:01 CDT by Isai Bailey
== END 2023-05-11 01:51 | disposition home or self-care (01) ==
LOC: ER 20:52
DX: G40.509 Epileptic seizures related to external causes, not intractable, without status epilepticus (principal); Z20.822 Contact with and (suspected) exposure to COVID-19; Z88.5 Allergy status to narcotic agent; Z88.8 Allergy status to other drugs, medicaments and biological substances
CPT/HCPCS: 96365; 93005; 87070; 85025; 81001; 80048; 36415; 81025; 87081; 87635; 87804 ×2; 70450; 71045; 99285; 96366; J1953; J7030

== ENCOUNTER 2023-05-11 09:46 | Emergency (ER) | payer OTHER ==
--- OUTSIDE RECORDS SUMMARY | 2023-05-11 09:56 | XMS REPORT | Continuity of Care Document ---
:1990 Author Organization [facility] t Address [address] [facility] [address] [place] [address] Care Team Providers Name Role Phone DULCE WEEKS Primary Care Physician Unavailable NILA VILLAGRAN Attending Clinician Unavailable JOSE ANGEL PERALTA Attending Clinician Unavailable JOSE ANGEL PERALTA Attending Clinician Unavailable Dulce Weeks MD Attending Clinician Eugene LLANOS, Zelda Hernandez Attending Clinician Unavailable DULCE WEEKS Attending Clinician Unavailable Doctor Unassigned, [place] Attending Clinician Unavailable Khloe Mayen MA Attending Clinician Unavailable Prisca Vilchis Attending Clinician Unavailable Cyrus Shultz MD Attending Clinician CYRUS SHULTZ Attending Clinician Unavailable Pob, Adc Lab Main Attending Clinician Unavailable JANIS Attending Clinician Unavailable ISHAN BENNETT Attending Clinician Unavailable Brett Hansen MD Attending Clinician Edgardo Jacobs MD Attending Clinician [phone] Marylu Tiwari MD Attending Clinician MARYLU TIWARI Attending Clinician Unavailable Nila Rhoades Attending Clinician ZELDA FREEMAN Attending Clinician Unavailable AIDAN REYNOSO Attending Clinician Unavailable Nurse, Adc Pob Immunization Attending Clinician Unavailable Aidan Reynoso DO Attending Clinician Gisell Villegas MD Attending Clinician Unknown, Attending Attending Clinician Unavailable UNKNOWN, ATTENDING Attending Clinician Unavailable Vanessa Marshall Attending Clinician Lydia STEINER, Zelda Crump Attending Clinician [phone] Lab, Valerie Fam Pob I Attending Clinician Unavailable Cderic Burgos Attending Clinician CEDRIC PORTILLO Attending Clinician Unavailable Teresita Attending Clinician Unavailable Matt Foster MD Attending Clinician CYRUS TORRES Attending Clinician Unavailable CAM JIANG Attending Clinician Unavailable MATT OFSTER Attending Clinician Unavailable JOSE ANGEL PERALTA Admitting Clinician Unavailable JANIS Admitting Clinician Unavailable EDGARDO JACOBS Admitting Clinician Unavailable Teresita Admitting Clinician Unavailable JAILENE TIJERINA Admitting Clinician Unavailable Payers Payer Name Policy Type Policy Number Effective Date Expiration Date Janes henriquez [facility] [id number] 2019 CHOICE MEDICAID 00:00:00 [facility] [id number] CHOICE (MEDICAID REPLACEMENT - HMO) Problems Condition [...] exam[place] [address] [place] [address] Lipid Lipid Disease Active Univers disorder disorder 1-21 ity of 00:00: [address] Thickened Thickened Disease Active Uni vers endometriu endometriu 1-03 it y of m m 00:00: [place] 00 Medical Branch Menorrhagi Menorrhagi Disease Active U nivers a with a with 1-03 [place] of irregular irregular 00:[place] Pain Pain Disease Active 2021-10 Univers pelvic pelvic 2-21 ity of 00:00: [place] [facility] History of History of Disease Active 2021-10 U nivers ovarian ovarian 2-21 ity of cyst cyst 00:00: [place] [facility] Patient Patient Disease Active 2021-10 Univers desires desires 2-21 [place] Vaping Vaping Disease Active 2021-10 Univers 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 ity of dependence dependence 00:00[place] , , 00 Medical non-tobacc non-tobacc Br anch o product o product BMI BMI Disease Active 2021-10 Univers 40.0-44.9, 40.0-44.9, 2-21 it y of adult adult 00:00: [place] [facility] Branch 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 2-21 it y of y of shape y of shape 00:00[place] left of left 00 [facility] external external Branch ear ear Status Status Disease Active [facility] epileptic[facility] epilepticu 2-20 [facility] k[facility] s 00:00: [place] [address] Center UTI due to UTI due to Disease Active [facility] trichomona trichomona 2-20 Maranda kes s s 00:00: Medical vaginalis vaginalis 00 Cent er Epilepsy Epilepsy Disease Recurre [facility]: [place] [address] Center Status Status Disease Active Univers epilepticu epilepticu 2-19 it y of s s 00:00: [place] [facility] Branch Cough Cough Disease Active Univers 2-14 ity of 00:00: [place] [facility] Congestion Congestion Disease Active U nivers of nasal of nasal 2-14 ity of sinus sinus 00:00: [place] [facility] Nausea Nausea Disease Active Univers 2-14 ity of 00:00: [place] [address] Medical Branch Acute Acute Disease Active Univers [...] menstrual 3-12 ity of cycle cycle 00:00: [place] [facility] Asthma, Asthma, Disease Active Univers [...] 6-24 it y of on on 00:00: [place] [facility] Other Other Disease Active Univers migraine migraine 6-24 ity of without without 00:00: [place] status status 00 Medical migrainosu migrainosu Br anch s, not s, not intractabl intractabl e e Uncomplica Uncomplica Disease Active U guillaumeers aamir aamir 6-24 ity of asthma, asthma, 00:00: [place] unspecifie unspecifie 00 Me dical d asthma d asthma Branch severity severity Pain of Pain of Disease Active Univers upper upper 6-24 ity of abdomen abdomen 00:00: [place] 00 Medical Branch Allergies, Adverse Reactions, Alerts Allergy Allergy Status Severity Reaction(s) Onset Inactive Treating Comm ents Source Name Type Date Date Clinician CARBAMAZ Allergy Active High Sob [facility]INE 2-19 [facility] Medical [facility] Center FOSPHENY Allergy Active Itching [facility] TOIN 2-19 [facility] 00:[facility]: Medical 00 Center Fospheny Propensi Active Itching [facility] toin ty to 2[facility]19 [facility] adverse 00:00: Medical reaction 00 Center s Carbamaz Propensi Active Shortness Of [facility] epine ty to Breath, -19 [facility] adverse Itching, 00:00: Medical reaction Rash 00 Center s CARBAMAZ DRUG Active High ITCHING Univers EPINE INGREDI -19 ity of 00:00: [place] 00 Medical Branch FOSPHENY DRUG Active ITCHING Univers TOIN INGREDI -19 ity of 00:00: [place] 00 Medical Branch KETOROLA Allergy Active High Hives [facility] C 6-23 [facility] 00:00: Medical 00 Center [place] Drug Active Hives, Can take [facility] c Allergy Itching, 04-20 aspirin [facility] Rash, 00:00: and Medical Shortness Of 00 ibuprofen C enter Breath without problem. KETOROLA DRUG Active High Hives Univers C INGREDI 04-20 ity of 00:00: [place] 00 [facility] Branch Ket[place] Propensi Active Shortness of Can shay e Univers c ty to Breath 04-20 aspirin ity of adverse 00:00: and [place] reaction 00 ibuprofen Medic al s without Branch problem. Social History Social Habit Start Date Stop Date Quantity Comments Source History of 2012-04-20 Passive smoker University of tobacco use 00:00:00 [facility] History SDOH [facility] Alcohol Comment Medical C enter History SDOH [facility] Alcohol Std Medical Cente r Drinks History SDOH [facility] Alcohol Binge Medical J[address] ter Exposure to 2022-12-22 2023-01-01 Not sure University of SARS-CoV-2 00:00:00 11:43:[address] [facility] (event) Branch Tobacco use and 2022-10-18 2022-10-18 Smokeless tobacco Un iversity of exposure 00:00:00 00:00:00 non-user [facility] Tobacco Comment 2022-10-18 2022-10-18 3-4 ciggs a day Univ ersity of 00:00:00 00:00:00 [facility] Alcohol intake 2021-12-18 2021-12-[address] [facility] es 00:00:00 00:00:00 non-drinker Medical Cente r (finding) History SDOH 2021-12-18 2021-12-18 [address] [facility] [address] [facility] Alcohol Frequency 00:00:00 00:00:00 [facility] Sex [birth year] At [birth year] ZINA Draper 00:00:00 00:00:00 [facility] Smoking Status Start Date Stop Date Source Ex-smoker 2022-10-18 00:00:00 2022-10-18 00:[facility]:00 [facility] Never smoked tobacco [facility] Light tobacco smoker 2019-01-07 00:00:00 [facility] Medications Ordered Filled Start Stop Current Ordering Indication Dosage Frequency Signature Comments Components Source Medication Medication Date Date Medication? Clinician (SIG) Name Name ibuprofen 2022- No [id number] 600mg U nivers (IBU) 12-29 ity of tablet 600 16:15: 04:14 [place] mg 00 :00 Medical Branch Norethindro Yes [id number] 1{tbl} Take 1 Univers ne 1-18 tablet by ity of Acet-Ethiny 00:00: mouth [place] 00 the Medical (ESTRIN morning. Branch ,) 1.5-30 mg-mcg per tablet ibuprofen Yes [id number] 800mg Take 1 Univers 800 mg 1-18 tablet by ity of tablet 00:00: mouth [place] 00 every 6 Medical (six) Branch hours as needed for Pain (scale 4-6). Norethindro Yes [id number] 1{tbl} Take 1 Univers ne 1-18 tablet by ity of Acet-Ethiny 00:00: [place] 00 the Medical (IN morning. Branch ,) 1.5-30 mg-mcg per tablet ibuprofen Yes [id number] 800mg Take 1 Univers 800 mg 1-18 tablet by ity of tablet 00:00: mouth [place] 00 every 6 Medical (six) Branch hours as needed for Pain (scale 4-6). Norethindro Yes [id number] 1{tbl} Take 1 Univers ne 1-18 tablet by ity of Acet-Ethiny 00:00: [place] 00 the Medical (. Branch ,) 1.5-30 mg-mcg per tablet ibuprofen 2022-0 Yes [id number] 800mg Take 1 Univers 800 mg 1-18 tablet by ity of tablet 00:00: mouth [place] 00 every 6 Medical (six) Branch hours as needed for Pain (scale 4-6). Norethindro 2022-0 Yes [id number] 1{tbl} Take 1 Univers ne 1-18 tablet by ity of Acet-Ethiny 00:00: [place] 00 the Medical (. Branch ,) 1.5-30 mg-mcg per tablet ibuprofen 2022-0 Yes [id number] 800mg Take 1 Univers 800 mg 1-18 tablet by ity of tablet 00:00: mouth [place] 00 every 6 Medical (six) Branch hours as needed for Pain (scale 4-6). Norethindro 2022-0 Yes [id number] 1{tbl} Take 1 Univers ne 1-18 tablet by ity of Acet-Ethiny 00:00: [place] 00 the Medical (. Branch ,) 1.5-30 mg-mcg per tablet ibuprofen 2022-0 Yes [id number] 800mg Take 1 Univers 800 mg 1-18 tablet by ity of tablet 00:00: mouth [place] 00 every 6 Medical (six) Branch hours as needed for Pain (scale 4-6). Norethindro 2022-0 Yes [id number] 1{tbl} Take 1 Univers ne 1-18 tablet by ity of Acet-Ethiny 00:00: mouth [place] 00 the Medical (. Branch ,) 1.5-30 mg-mcg per tablet ibuprofen 2022-0 Yes [id number] 800mg Take 1 Univers 800 mg 1-18 tablet by ity of tablet 00:00: mouth [place] 00 every 6 Medical (six) Branch hours as needed for Pain (scale 4-6). Norethindro 2022-0 Yes [id number] 1{tbl} Take 1 Univers ne 1-18 tablet by ity of Acet-Ethiny 00:00: [place] 00 the Medical ( morning. Branch ,) 1.5-30 mg-mcg per tablet ibuprofen 2022-0 Yes [id number] 800mg Take 1 Univers 800 mg 1-18 tablet by ity of tablet 00:00: mouth [place] 00 every 6 Medical (six) Branch hours as needed for Pain (scale 4-6). Norethindro 2022-0 Yes [id number] 1{tbl} Take 1 Univers ne 1-18 tablet by ity of Acet-Ethiny 00:00: [place] 00 the Medical (IN . Branch ,) 1.5-30 mg-mcg per tablet ibuprofen 2022-0 Yes [id number] 800mg Take 1 Univers 800 mg 1-18 tablet by ity of tablet 00:00: mouth [place] 00 every 6 Medical (six) Branch hours as needed for Pain (scale 4-6). Norethindro 2022-0 Yes [id number] 1{tbl} Take 1 Univers ne 1-18 tablet by ity of Acet-Ethiny 00:00: [place] 00 the Medical ( morning. Branch ,) 1.5-30 mg-mcg per tablet ibuprofen 2022-0 Yes [id number] 800mg Take 1 Univers 800 mg 1-18 tablet by ity of tablet 00:00: mouth [place] 00 every 6 Medical (six) Branch hours as needed for Pain (scale 4-6). Norethindro 2022-0 Yes [id number] 1{tbl} Take 1 Univers ne 1-18 tablet by ity of Acet-Ethiny 00:00: [place] 00 the Medical (ESTRIN morning. Branch ,) 1.5-30 mg-mcg per tablet ibuprofen 2022-0 Yes [id number] 800mg Take 1 Univers 800 mg 1-18 tablet by ity of tablet 00:00: mouth [place] 00 every 6 Medical (six) Branch hours as needed for Pain (scale 4-6). Norethindro 2022-0 Yes [id number] 1{tbl} Take 1 Univers ne 1-18 tablet by ity of Acet-Ethiny 00:00: [place] 00 the Medical (IN morning. Branch ,) 1.5-30 mg-mcg per tablet ibuprofen 202-0 Yes [id number] 800mg Take 1 Univers 800 mg 1-18 tablet by ity of tablet 00:00: mouth [place] 00 every 6 Medical (six) Branch hours as needed for Pain (scale 4-6). Norethindro 202-0 Yes [id number] 1{tbl} Take 1 Univers ne 1-18 tablet by ity of Acet-Ethiny 00:00: [place] 00 the Medical (ESTRIN morning. Branch ,) 1.5-30 mg-mcg per tablet ibuprofen 2022-0 Yes [id number] 800mg Take 1 Univers 800 mg 1-18 tablet by ity of tablet 00:00: mouth [place] 00 every 6 Medical (six) Branch hours as needed for Pain (scale 4-6). Norethindro 2022-0 Yes [id number] 1{tbl} Take 1 Univers ne 1-18 tablet by ity of Acet-Ethiny 00:00: [place] 00 the Medical (ESTR morning. Branch ,) 1.5-30 mg-mcg per tablet ibuprofen 2022-0 Yes [id number] 800mg Take 1 Univers 800 mg 1-18 tablet by ity of tablet 00:00: mouth [place] 00 every 6 Medical (six) Branch hours as needed for Pain (scale 4-6). Norethindro 3-0 Yes [id number] 1{tbl} Take 1 Univers ne 1-18 tablet by ity of Acet-Ethiny 00:00: [place] 00 the Medical (ESTRIN morning. Branch ,) 1.5-30 mg-mcg per tablet ibuprofen 202-0 Yes [id number] 800mg Take 1 Univers 800 mg 1-18 tablet by ity of tablet 00:00: mouth [place] 00 every 6 Medical (six) Branch hours as needed for Pain (scale 4-6). norethindro 2023-0 Yes [id number] .35mg Take 1 Univers ne (ORTHO 1-03 tablet by ity o f MICRONOR) 00:00: [place] 0.35 mg 00 the Medical tablet morning. Jonnathan ruizthindro 2022-0 Yes [id number] .35mg Take 1 Univers ne (ORTHO 1-03 tablet by itHelpAround o f MICRONOR) 00:00: [place] 0.35 mg 00 the Medical tablet morning. Jonnathan ruizthindro 2022-0 Yes [id number] .35mg Take 1 Univers ne (ORTHO 1-03 tablet by itHelpAround o f MICRONOR) 00:00: [place] 0.35 mg 00 the Medical tablet morning. Jonnathan norethindro 2022-0 3- No [id number] .35mg Take 1 Univers ne (ORTHO 1-03 -22 tablet by itHelpAround of [employer]) 00:00: 00:00 mouth in [place] 0.35 mg 00 :00 the Medical tablet morning. Jonnathan rileyndro 2022-0 3- No [id number] .35mg Take 1 Univers ne (ORTHO 1-12 27- tablet by itHelpAround of [place] [employer]) 00:00: 00:00 mouth in [place] 0.35 mg 00 :00 the Medical tablet morning. Jonnathan ruizthindro 2021-10 Yes [id number] .35mg Take 1 Univers ne (ORTHO 2-21 tablet by itHelpAround o [employer] MICRONOR) 00:00: [place] 0.35 mg 00 the Medical tablet morning. Jonnathan rileyndro 2021- Yes [id number] .35mg Take 1 Univers ne (ORTHO 2-21 tablet by itHelpAround o f MICRONOR) 00:00: [place] 0.35 mg 00 the Medical tablet morning. Jonnathan norethindro 2021-10 Yes [id number] .35mg Take 1 Univers ne (ORTHO 2-21 tablet by ity o f MICRONOR) 00:00: [place] 0.35 mg 00 the Medical tablet morning. Branch norethindro 2021-10 Yes [id number] .35mg Take 1 Univers ne (ORTHO 2-21 tablet by itHelpAround o f MICRONOR) 00:00: [place] 0.35 mg 00 the Medical tablet morning. Jonnathan ruizthindro 2021- Yes [id number] .35mg Take 1 Univers ne (ORTHO 2-21 tablet by ity o f MICRONOR) 00:00: [place] 0.35 mg 00 the Medical tablet morning. Jonnathan raines 2021-10 Yes [id number] .35mg Take 1 Univers ne (ORTHO 2-21 tablet by ity o f MICRONOR) 00:00: [place] 0.35 mg 00 the Medical tablet morning. Jonnathan raines 2021-10 Yes [id number] .35mg Take 1 Univers ne (ORTHO 2-21 tablet by ity o f MICRONOR) 00:00: [place] 0.35 mg 00 the Medical tablet morning. Jonnathan raines 2021-10 Yes [id number] .35mg Take 1 Univers ne (ORTHO 2-21 tablet by ity o f MICRONOR) 00:00: [place] 0.35 mg 00 the Medical tablet morning. Jonnathan raines 2021-10 Yes [id number] .35mg Take 1 Univers ne (ORTHO 2-21 tablet by ity o f MICRONOR) 00:00: [place] 0.35 mg 00 the Medical tablet morning. Jonnathan raines 2021-10 Yes [id number] .35mg Take 1 Univers ne (ORTHO 2-21 tablet by ity o f MICRONOR) 00:00: [place] 0.35 mg 00 the Medical tablet morning. Jonnathan raines 2021-10- No [id number] .35mg Take 1 Univers ne (ORTHO 2-21 -22 tablet by ity of MICRONOR) 00:00: 00:00 mouth in [place] 0.35 mg 00 :00 the Medical tablet morning. Jonnathan raines 2021-10- No [id number] .35mg Take 1 Univers ne (ORTHO 2-21 -22 tablet by ity of MICRONOR) 00:00: 00:00 mouth in [place] 0.35 mg 00 :00 the Medical tablet morning. Jonnathan levETIRAcet Yes 500mg Q.5D Take [address] [facility] [address] [facility] (KEPPRA) 2-20 tablet [facility] 500 MG 00:00: (500 mg Medical tablet 00 total) by Center mouth 2 (two) times daily. traMADoL 0 Yes 100mg Take [address] [facility] [address] 100 [...] needed. Max Daily Amount: 300 mg metroNIDAZO 2021- No 500mg Q.5D Take [address] [facility] (FLAGYL) 12-18 tablet [facility] 500 MG 00:00: 23:59 (500 mg Medical tablet 00 :00 total) by Center mouth 2 (two) times daily for 7 days First dose 12/18 PM. Start twice daily dosing 12/19 AM. HYDROcodone 2021- No 1{tbl} Take [address] -acetaminop 12-18 tablet by Maranda pathak (NORCO 00:00: 23:59 mouth Medic al 5-325) 00 :00 every 8 Center 5-325 mg (eight) per tablet hours as needed (Severe pain) for up to 2 days. Max Daily Amount: 3 tablets methylPREDN 2021-0 Yes [id number] Take by Univers ISolone 2-15 mouth ity of (MEDROL, 00:00: SEE-INSTRU [place] BAMBI,) 4 mg 00 CTIONS. Medica l tablets follow Branch package directions methylPREDN 2-0 Yes [id number] Take by Univers ISolone 2-15 mouth ity of (MEDROL, 00:00: SEE-INSTRU [place] BAMBI,) 4 mg 00 CTIONS. Medica l tablets follow Branch package directions methylPREDN 2-0 Yes [id number] Take by Univers ISolone 2-15 mouth ity of (MEDROL, 00:00: SEE-INSTRU [place] BAMBI,) 4 mg 00 CTIONS. Medica l tablets follow Branch package directions methylPREDN 2022-0 Yes [id number] Take by Univers ISolone 2-15 mouth ity of (MEDROL, 00:00: SEE-INSTRU [place] BAMBI,) 4 mg 00 CTIONS. Medica l tablets follow Branch package directions methylPREDN 2-0 Yes [id number] Take by Univers ISolone 2-15 mouth ity of (MEDROL, 00:00: SEE-INSTRU [place] BAMBI,) 4 mg 00 CTIONS. Medica l tablets follow Branch package directions methylPREDN 2022-0 Yes [id number] Take by Univers ISolone 2-15 mouth ity of (MEDROL, 00:00: SEE-INSTRU [place] BAMBI,) 4 mg 00 CTIONS. Medica l tablets follow Branch package directions methylPREDN 2022-0 Yes [id number] Take by Univers ISolone 2-15 mouth ity of (MEDROL, 00:00: SEE-INSTRU [place] BAMBI,) 4 mg 00 CTIONS. Medica l tablets follow Branch package directions methylPREDN 2022-0 Yes [id number] Take by Univers ISolone 2-15 mouth ity of (MEDROL, 00:00: SEE-INSTRU [place] BAMBI,) 4 mg 00 CTIONS. Medica l tablets follow Branch package directions methylPREDN 2022-0 Yes [id number] Take by Univers ISolone 2-15 mouth ity of (MEDROL, 00:00: SEE-INSTRU [place] BAMBI,) 4 mg 00 CTIONS. Medica l tablets follow Branch package directions methylPREDN 2022-0 Yes [id number] Take by Univers ISolone 2-15 mouth ity of (MEDROL, 00:00: SEE-INSTRU [place] BAMBI,) 4 mg 00 CTIONS. Medica l tablets follow Branch package directions methylPREDN 2022-0 Yes [id number] Take by Univers ISolone 2-15 mouth ity of (MEDROL, 00:00: SEE-INSTRU [place] BAMBI,) 4 mg 00 CTIONS. Medica l tablets follow Branch package directions methylPREDN 2022-0 Yes [id number] Take by Univers ISolone 2-15 mouth ity of (MEDROL, 00:00: SEE-INSTRU [place] BAMBI,) 4 mg 00 CTIONS. Medica l tablets follow Branch package directions methylPREDN 2022-0 Yes [id number] Take by Univers ISolone 2-15 mouth ity of (MEDROL, 00:00: SEE-INSTRU [place] BAMBI,) 4 mg 00 CTIONS. Medica l tablets follow Branch package directions methylPREDN 2022-0 Yes [id number] Take by Univers ISolone 2-15 mouth ity of (MEDROL, 00:00: SEE-INSTRU [place] BAMBI,) 4 mg 00 CTIONS. Medica l tablets follow Branch package directions methylPREDN 2022-0 Yes [id number] Take by Univers ISolone 2-15 mouth ity of (MEDROL, 00:00: SEE-INSTRU [place] BAMBI,) 4 mg 00 CTIONS. Medica l tablets follow Branch package directions methylPREDN 2022-0 Yes [id number] Take by Univers ISolone 2-15 mouth ity of (MEDROL, 00:00: SEE-INSTRU [place] BAMBI,) 4 mg 00 CTIONS. Medica l tablets follow Branch package directions methylPREDN 2022-0 Yes [id number] Take by Univers ISolone 2-15 mouth ity of (MEDROL, 00:00: SEE-INSTRU [place] BAMBI,) 4 mg 00 CTIONS. Medica l tablets follow Branch package directions methylPREDN 2022-0 Yes [id number] Take by Univers ISolone 2-15 mouth ity of (MEDROL, 00:00: SEE-INSTRU [place] BAMBI,) 4 mg 00 CTIONS. Medica l tablets follow Branch package directions methylPREDN 2022-0 Yes [id number] Take by Univers ISolone 2-15 mouth ity of (MEDROL, 00:00: SEE-INSTRU [place] BAMBI,) 4 mg 00 CTIONS. Medica l tablets follow Branch package directions methylPREDN 2022-0 Yes [id number] Take by Univers ISolone 2-15 mouth ity of (MEDROL, 00:00: SEE-INSTRU [place] BAMBI,) 4 mg 00 CTIONS. Medica l tablets follow Branch package directions methylPREDN 2022-0 Yes [id number] Take by Univers ISolone 2-15 mouth ity of (MEDROL, 00:00: SEE-INSTRU [place] BAMBI,) 4 mg 00 CTIONS. Medica l tablets follow Branch package directions methylPREDN 2022-0 Yes [id number] Take by Univers ISolone 2-15 mouth ity of (MEDROL, 00:00: SEE-INSTRU [place] BAMBI,) 4 mg 00 CTIONS. Medica l tablets follow Branch package directions methylPREDN 2022-0 Yes [id number] Take by Univers ISolone 2-15 mouth ity of (MEDROL, 00:00: SEE-INSTRU [place] BAMBI,) 4 mg 00 CTIONS. Medica l tablets follow Branch package directions methylPREDN 2022-0 Yes [id number] Take by Univers ISolone 2-15 mouth ity of (MEDROL, 00:00: SEE-INSTRU [place] BAMBI,) 4 mg 00 CTIONS. Medica l tablets follow Branch package directions methylPREDN 2022-0 Yes [id number] Take by Univers ISolone 2-15 mouth ity of (MEDROL, 00:00: SEE-INSTRU [place] BAMBI,) 4 mg 00 CTIONS. Medica l tablets follow Branch package directions methylPREDN 2021-0 Yes [id number] Take by Univers ISolone 2-15 mouth ity of (MEDROL, 00:00: SEE-INSTRU [place] BAMBI,) 4 mg 00 CTIONS. Medica l tablets follow Branch package directions methylPREDN 2021-0 Yes [id number] Take by Univers ISolone 2-15 mouth ity of (MEDROL, 00:00: SEE-INSTRU [place] BAMBI,) 4 mg 00 CTIONS. Medica l tablets follow Branch package directions methylPREDN 2021-0 Yes [id number] Take by Univers ISolone 2-15 mouth ity of (MEDROL, 00:00: SEE-INSTRU [place] ABMBI,) 4 mg 00 CTIONS. Medica l tablets follow Branch package directions methylPREDN 2021-0 Yes [id number] Take by Univers ISolone 2-15 mouth ity of (MEDROL, 00:00: SEE-INSTRU [place] BAMIB,) 4 mg 00 CTIONS. Medica l tablets follow Branch package directions methylPREDN 2021-0 2- No [id number] Take by Univers ISolone 2-15 -21 mouth ity of (MEDROL, 00:00: 05:[place],) 4 mg 00 :00 CTIONS for Med ical tablets 5 days. Branch follow package directions methylPREDN 2021-0 2021- No [id number] Take by Univers ISolone 2-15 -15 mouth ity of (MEDROL, 00:00: 00:[place],) 4 mg 00 :00 CTIONS for Med ical tablets 5 days. Branch follow package directions omeprazole 2021-2021- No [id number] 40mg Take 1 Univers 40 mg 2-14 - capsule by ity of capsule 00:00: 05:59 mouth [place] 00 :00 daily for Medical 14 days. Branch omeprazole 2021-2021- No [id number] 40mg Take 1 Univers 40 mg 2-14 - capsule by ity of capsule 00:00: 05:59 mouth [place] 00 :00 daily for Medical 14 days. Branch omeprazole 2021- No [id number] 40mg Take 1 Univers 40 mg 12-12 capsule by ity of capsule 00:00: 05:59 mouth [place] 00 :00 daily for Medical 14 days. Branch omeprazole 2021- No [id number] 40mg Take 1 Univers 40 mg 12-12 capsule by ity of capsule 00:00: 05:59 mouth [place] 00 :00 daily for Medical 14 days. Branch omeprazole No [id number] 40mg Take 1 Univers 40 mg 12-12 capsule by ity of capsule 00:00: 05:59 mouth [place] 00 :00 daily for Medical 14 days. Branch bromphenira 2021- No [id number] 10mL Take 10 mL Univers mine-pseudo 12-12 by mouth 4 i ty of ephedrine-D 00:00: 05:59 (four) [place] M (BROMFED 00 :00 times Medical DM) 2-30-10 daily as Bran ch mg/5 mL needed for syrup Congestion /Allergies for up to 10 days. ondansetron No [id number] 4mg Take 1 Univers (ZOFRAN) 4 12-12 tablet by ity of mg tablet 00:00: 05:59 mouth [place] 00 :00 every 8 Medical (eight) Branch hours as needed for Nausea and Vomiting (N/V) for up to 10 days. ciprofloxac 2021- No [id number] 4[drp] Place 4 Univers in-dexameth 12-12 04026 Drops in it y of asone 00:00: 05:59 right ear [place] (CIPRODEX) 00 :00 2 (two) Medica l 0.3-0.1 % times Branch otic drops daily for 10 days. ibuprofen 2021- No [id number] 600mg Take 1 Univers 600 mg 12-12 [id number] tablet by ity of tablet 00:00: 05:59 mouth [place] 00 :00 every 6 Medical (six) Branch hours as needed for Pain (scale 4-6) for up to 10 days. bromphenira 2021- No [id number] 10mL Take 10 mL [facility] mine-pseudo 12-12 by mouth 4 i ty of ephedrine-D 00:00: 05:59 (four) [place] as M (BROMFED 00 :00 times Medical DM) 2-30-10 daily as Bran ch mg/5 mL needed for syrup Congestion /Allergies for up to 10 days. ondansetron 2021- No [id number] 4mg Take 1 [facility] (ZOFRAN) 4 12-12 tablet by ity of mg tablet 00:00: 05:59 mouth [place] 00 :00 every 8 Medical (eight) Branch hours as needed for Nausea and Vomiting (N/V) for up to 10 days. ciprofloxac 2021- No [id number] 4[drp] Place 4 [facility] in-dexameth 12-12 [id number] Drops in it y of asone 00:00: 05:59 right ear [place] (CIPRODEX) 00 :00 2 (two) Medica l 0.3-0.1 % times Branch otic drops daily for 10 days. ibuprofen 2021- No [id number] 600mg Take 1 [facility] 600 mg 12-12 [id number] tablet by ity of tablet 00:00: 05:59 mouth [place] 00 :00 every 6 Medical (six) Branch hours as needed for Pain (scale 4-6) for up to 10 days. bromphenira 2021- No [id number] 10mL Take 10 mL [facility] mine-pseudo 12-12 by mouth 4 i ty of ephedrine-D 00:00: 05:59 (four) [place] [facility] (BROMFED 00 :00 times Medical DM) 2-30-10 daily as Bran ch mg/5 mL needed for syrup Congestion /Allergies for up to 10 days. ondansetron 2021- No [id number] 4mg Take 1 [facility] (ZOFRAN) 4 12-12 tablet by ity of mg tablet 00:00: 05:59 mouth [place] 00 :00 every 8 Medical (eight) Branch hours as needed for Nausea and Vomiting (N/V) for up to 10 days. ciprofloxac 2021- No [id number] 4[drp] Place 4 [facility] in-dexameth 12-12 22212 Drops in it y of asone 00:00: 05:59 right ear [place] (CIPRODEX) 00 :00 2 (two) Medica l 0.3-0.1 % times Branch otic drops daily for 10 days. ibuprofen 2021- No [id number] 600mg Take 1 [facility] 600 mg 12-12 [id number] tablet by ity of tablet 00:00: 05:59 mouth [place] 00 :00 every 6 Medical (six) Branch hours as needed for Pain (scale 4-6) for up to 10 days. bromphenira 2021- No [id number] 10mL Take 10 mL [facility] mine-pseudo 12-12 by mouth 4 i ty of ephedrine-D 00:00: 05:59 (four) [place] [facility] (BROMFED 00 :00 times Medical DM) 2-30-10 daily as Bran ch mg/5 mL needed for syrup Congestion /Allergies for up to 10 days. ondansetron 2021- No [id number] 4mg Take 1 [facility] (ZOFRAN) 4 12-12 tablet by ity of mg tablet 00:00: 05:59 mouth [place] 00 :00 every 8 Medical (eight) Branch hours as needed for Nausea and Vomiting (N/V) for up to 10 days. ciprofloxac 2021- No [id number] 4[drp] Place 4 [facility] in-dexameth 12-12 [id number] Drops in it y of asone 00:00: 05:59 right ear [place] (CIPRODEX) 00 :00 2 (two) Medica l 0.3-0.1 % times Branch otic drops daily for 10 days. ibuprofen 2021- No [id number] 600mg Take 1 [facility] 600 mg 12-12 [id number] tablet by ity of tablet 00:00: 05:59 mouth [place] 00 :00 every 6 Medical (six) Branch hours as needed for Pain (scale 4-6) for up to 10 days. bromphenira 2021- No [id number] 10mL Take 10 mL [facility] mine-pseudo 12-12 by mouth 4 i ty of ephedrine-D 00:00: 05:59 (four) [place] [facility] M (BROMFED 00 :00 times Medical DM) 2-30-10 daily as Bran ch mg/5 mL needed for syrup Congestion /Allergies for up to 10 days. ondansetron 2021- No [id number] 4mg Take 1 [facility] (ZOFRAN) 4 12-12 tablet by ity of mg tablet 00:00: 05:59 mouth [place] 00 :00 every 8 Medical (eight) Branch hours as needed for Nausea and Vomiting (N/V) for up to 10 days. ciprofloxac 2021- No [id number] 4[drp] Place 4 [facility] in-dexameth 12-12 [id number] Drops in it y of asone 00:00: 05:59 right ear [place] (CIPRODEX) 00 :00 2 (two) Medica l 0.3-0.1 % times Branch otic drops daily for 10 days. ibuprofen 2021- No [id number] 600mg Take 1 [facility] 600 mg 12-12 [id number] tablet by ity of tablet 00:00: 05:59 [...] ORAL) 04 Medical Branch cetirizine 2020-10 Yes [id number] 10mg Take 1 [facility] (ZYRTEC) 10 0-01 tablet by ity of mg tablet 00:00: mouth [place] 00 daily. Medical Branch azelastine 2020-10 Yes [id number] 1{spray Use 1 [facility] 137 mcg 0-01 } [place] in ity of (0.1 %) 00:00: each [place] nasal spray 00 nostril 2 Med ical (two) Branch times daily. Use in each nostril as directed fluticasone 2020-10 Yes [id number] 1{spray Use 1 [facility] propionate 0-01 } [place] in ity o f 50 00:00: each [place] mcg/actuati 00 nostril Medic al on nasal daily. Branch spray cetirizine 2020-10 Yes [id number] 10mg Take 1 [facility] (ZYRTEC) 10 0-01 tablet by ity of mg tablet 00:00: mouth [place] 00 daily. Medical Branch azelastine 2020-10 Yes [id number] 1{spray Use 1 [facility] 137 mcg 0-01 } [place] in ity of (0.1 %) 00:00: each [place] nasal spray 00 nostril 2 Med ical (two) Branch times daily. Use in each nostril as directed fluticasone 2020-10 Yes [id number] 1{spray Use 1 [facility] propionate 0-01 } [place] in ity o f 50 00:00: each [place] mcg/actuati 00 nostril Medic al on nasal daily. Branch spray cetirizine 2020-10 Yes [id number] 10mg Take 1 [facility] (ZYRTEC) 10 0-01 tablet by ity of mg tablet 00:00: mouth [place] 00 daily. Medical Branch azelastine 2020-10 Yes [id number] 1{spray Use 1 [facility] 137 mcg 0-01 } [place] in ity of (0.1 %) 00:00: each [place] nasal spray 00 nostril 2 Med ical (two) Branch times daily. Use in each nostril as directed fluticasone 2020-10 Yes [id number] 1{spray Use 1 [facility] propionate 0-01 } [place] in ity o f 50 00:00: each [place] mcg/actuati 00 nostril Medic al on nasal daily. Branch spray cetirizine 2020-10 Yes [id number] 10mg Take 1 [facility] (ZYRTEC) 10 0-01 tablet by ity of mg tablet 00:00: mouth [place] 00 daily. Medical Branch azelastine 2020-10 Yes [id number] 1{spray Use 1 [facility] 137 mcg 0-01 } [place] in ity of (0.1 %) 00:00: each [place] nasal spray 00 nostril 2 Med ical (two) Branch times daily. Use in each nostril as directed fluticasone 2020-10 Yes [id number] 1{spray Use 1 [facility] propionate 0-01 } [place] in ity o f 50 00:00: each [place] mcg/actuati 00 nostril Medic al on nasal daily. Branch spray cetirizine 2020-10 Yes [id number] 10mg Take 1 [facility] (ZYRTEC) 10 0-01 tablet by ity of mg tablet 00:00: mouth [place] 00 daily. Medical Branch azelastine 2020-10 Yes [id number] 1{spray Use 1 [facility] 137 mcg 0-01 } [place] in ity of (0.1 %) 00:00: each [place] nasal spray 00 nostril 2 Med ical (two) Branch times daily. Use in each nostril as directed fluticasone 2020-10 Yes [id number] 1{spray Use 1 [facility] propionate 0-01 } [place] in ity o f 50 00:00: each [place] mcg/actuati 00 nostril Medic al on nasal daily. Branch spray cetirizine 2020-10 Yes [id number] 10mg Take 1 [facility] (ZYRTEC) 10 0-01 tablet by ity of mg tablet 00:00: mouth [place] 00 daily. Medical Branch azelastine 2020-10 Yes [id number] 1{spray Use 1 [facility] 137 mcg 0-01 } [place] in ity of (0.1 %) 00:00: each [place] nasal spray 00 nostril 2 Med ical (two) Branch times daily. Use in each nostril as directed fluticasone 2020-10 Yes [id number] 1{spray Use 1 [facility] propionate 0-01 } [place] in ity o f 50 00:00: each [place] mcg/actuati 00 nostril Medic al on nasal daily. Branch spray cetirizine 2020-10 Yes [id number] 10mg Take 1 [facility] (ZYRTEC) 10 0-01 tablet by ity of mg tablet 00:00: mouth [place] 00 daily. Medical Branch azelastine 2021-1 Yes [id number] 1{spray Use 1 [facility] 137 mcg 0-01 } [place] in ity of (0.1 %) 00:00: each [place] nasal spray 00 nostril 2 Med ical (two) Branch times daily. Use in each nostril as directed fluticasone 2020-10 Yes [id number] 1{spray Use 1 [facility] propionate 0-01 } [place] in ity o f 50 00:00: each [place] mcg/actuati 00 nostril Medic al on nasal daily. Branch spray cetirizine 2020-10 Yes [id number] 10mg Take 1 [facility] (ZYRTEC) 10 0-01 tablet by ity of mg tablet 00:00: mouth [place] 00 daily. Medical Branch azelastine 2020-10 Yes [id number] 1{spray Use 1 [facility] 137 mcg 0-01 } [place] in ity of (0.1 %) 00:00: each [place] nasal spray 00 nostril 2 Med ical (two) Branch times daily. Use in each nostril as directed fluticasone 2020-10 Yes [id number] 1{spray Use 1 [facility] propionate 0-01 } [place] in ity o f 50 00:00: each [place] mcg/actuati 00 nostril Medic al on nasal daily. Branch spray cetirizine 2020-10 Yes [id number] 10mg Take 1 [facility] (ZYRTEC) 10 0-01 tablet by ity of mg tablet 00:00: mouth [place] 00 daily. Medical Branch azelastine 2020-10 Yes [id number] 1{spray Use 1 [facility] 137 mcg 0-01 } [place] in ity of (0.1 %) 00:00: each [place] nasal spray 00 nostril 2 Med ical (two) Branch times daily. Use in each nostril as directed fluticasone 2020-10 Yes [id number] 1{spray Use 1 [facility] propionate 0-01 } [place] in ity o f 50 00:00: each [place] mcg/actuati 00 nostril Medic al on nasal daily. Branch spray cetirizine 2020-10 Yes [id number] 10mg Take 1 [facility] (ZYRTEC) 10 0-01 tablet by ity of mg tablet 00:00: mouth [place] 00 daily. Medical Branch azelastine 2020-10 Yes [id number] 1{spray Use 1 [facility] 137 mcg 0-01 } [place] in ity of (0.1 %) 00:00: each [place] nasal spray 00 nostril 2 Med ical (two) Branch times daily. Use in each nostril as directed fluticasone 2020-10 Yes [id number] 1{spray Use 1 [facility] propionate 0-01 } [place] in ity o f 50 00:00: each [place] mcg/actuati 00 nostril Medic al on nasal daily. Branch spray cetirizine 2020-10 Yes [id number] 10mg Take 1 [facility] (ZYRTEC) 10 0-01 tablet by ity of mg tablet 00:00: mouth [place] 00 daily. Medical Branch azelastine 2020-10 Yes [id number] 1{spray Use 1 [facility] 137 mcg 0-01 } [place] in ity of (0.1 %) 00:00: each [place] nasal spray 00 nostril 2 Med ical (two) Branch times daily. Use in each nostril as directed fluticasone 2020-10 Yes [id number] 1{spray Use 1 [facility] propionate 0-01 } [place] in ity o f 50 00:00: each [place] mcg/actuati 00 nostril Medic al on nasal daily. Branch spray cetirizine 2020-10 Yes [id number] 10mg Take 1 [facility] (ZYRTEC) 10 0-01 tablet by ity of mg tablet 00:00: mouth [place] 00 daily. Medical Branch azelastine 2020-10 Yes [id number] 1{spray Use 1 [facility] 137 mcg 0-01 } [place] in ity of (0.1 %) 00:00: each [place] nasal spray 00 nostril 2 Med ical (two) Branch times daily. Use in each nostril as directed fluticasone 2020-10 Yes [id number] 1{spray Use 1 [facility] propionate 0-01 } [place] in ity o f 50 00:00: each [place] mcg/actuati 00 nostril Medic al on nasal daily. Branch spray cetirizine 2020-10 Yes [id number] 10mg Take 1 [facility] (ZYRTEC) 10 0-01 tablet by ity of mg tablet 00:00: mouth [place] 00 daily. Medical Branch azelastine 2020-10 Yes [id number] 1{spray Use 1 [facility] 137 mcg 0-01 } [place] in ity of (0.1 %) 00:00: each [place] nasal spray 00 nostril 2 Med ical (two) Branch times daily. Use in each nostril as directed fluticasone 2020-10 Yes [id number] 1{spray Use 1 [facility] propionate 0-01 } [place] in ity o f 50 00:00: each [place] mcg/actuati 00 nostril Medic al on nasal daily. Branch spray cetirizine 2020-10 Yes [id number] 10mg Take 1 [facility] (ZYRTEC) 10 0-01 tablet by ity of mg tablet 00:00: mouth [place] 00 daily. Medical Branch azelastine 2020-10 Yes [id number] 1{spray Use 1 [facility] 137 mcg 0-01 } [place] in ity of (0.1 %) 00:00: each [place] nasal spray 00 nostril 2 Med ical (two) Branch times daily. Use in each nostril as directed fluticasone 2020-10 Yes [id number] 1{spray Use 1 [facility] propionate 0-01 } [place] in ity o f 50 00:00: each [place] mcg/actuati 00 nostril Medic al on nasal daily. Branch spray cetirizine 2020-10 Yes [id number] 10mg Take 1 [facility] (ZYRTEC) 10 0-01 tablet by ity of mg tablet 00:00: mouth [place] 00 daily. Medical Branch azelastine 2020-10 Yes [id number] 1{spray Use 1 [facility] 137 mcg 0-01 } [place] in ity of (0.1 %) 00:00: each [place] nasal spray 00 nostril 2 Med ical (two) Branch times daily. Use in each nostril as directed fluticasone 2020-10 Yes [id number] 1{spray Use 1 [facility] propionate 0-01 } [place] in ity o f 50 00:00: each [place] mcg/actuati 00 nostril Medic al on nasal daily. Branch spray cetirizine 2020-10 Yes [id number] 10mg Take 1 [facility] (ZYRTEC) 10 0-01 tablet by ity of mg tablet 00:00: mouth [place] 00 daily. Medical Branch azelastine 2020-10 Yes [id number] 1{spray Use 1 [facility] 137 mcg 0-01 } [place] in ity of (0.1 %) 00:00: each [place] nasal spray 00 nostril 2 Med ical (two) Branch times daily. Use in each nostril as directed fluticasone 2020-10 Yes [id number] 1{spray Use 1 [facility] propionate 0-01 } [place] in ity o f 50 00:00: each [place] mcg/actuati 00 nostril Medic al on nasal daily. Branch spray cetirizine 2020-10 Yes [id number] 10mg Take 1 [facility] (ZYRTEC) 10 0-01 tablet by ity of mg tablet 00:00: mouth [place] 00 daily. Medical Branch azelastine 2020-10 Yes [id number] 1{spray Use 1 [facility] 137 mcg 0-01 } [place] in ity of (0.1 %) 00:00: each [place] nasal spray 00 nostril 2 Med ical (two) Branch times daily. Use in each nostril as directed fluticasone 2020-10 Yes [id number] 1{spray Use 1 [facility] propionate 0-01 } [place] in ity o f 50 00:00: each [place] mcg/actuati 00 nostril Medic al on nasal daily. Branch spray cetirizine 2020-10 Yes [id number] 10mg Take 1 [facility] (ZYRTEC) 10 0-01 tablet by ity of mg tablet 00:00: mouth [place] 00 daily. Medical Branch azelastine 2020-10 Yes [id number] 1{spray Use 1 [facility] 137 mcg 0-01 } [place] in ity of (0.1 %) 00:00: each [place] nasal spray 00 nostril 2 Med ical (two) Branch times daily. Use in each nostril as directed fluticasone 2020-10 Yes [id number] 1{spray Use 1 [facility] propionate 0-01 } [place] in ity o f 50 00:00: each [place] mcg/actuati 00 nostril Medic al on nasal daily. Branch spray cetirizine 2020-10 Yes [id number] 10mg Take 1 [facility] (ZYRTEC) 10 0-01 tablet by ity of mg tablet 00:00: mouth [place] 00 daily. Medical Branch azelastine 2020-10 Yes [id number] 1{spray Use 1 [facility] 137 mcg 0-01 } [place] in ity of (0.1 %) 00:00: each [place] nasal spray 00 nostril 2 Med ical (two) Branch times daily. Use in each nostril as directed fluticasone 2020-10 Yes [id number] 1{spray Use 1 [facility] propionate 0-01 } [place] in ity o f 50 00:00: each [place] mcg/actuati 00 nostril Medic al on nasal daily. Branch spray cetirizine 2020-10 Yes [id number] 10mg Take 1 [facility] (ZYRTEC) 10 0-01 tablet by ity of mg tablet 00:00: mouth [place] 00 daily. Medical Branch azelastine 2020-10 Yes [id number] 1{spray Use 1 [facility] 137 mcg 0-01 } [place] in ity of (0.1 %) 00:00: each [place] nasal spray 00 nostril 2 Med ical (two) Branch times daily. Use in each nostril as directed fluticasone 2020-10 Yes [id number] 1{spray Use 1 [facility] propionate 0-01 } [place] in ity o f 50 00:00: each [place] mcg/actuati 00 nostril Medic al on nasal daily. Branch spray cetirizine 2020-10 Yes [id number] 10mg Take 1 [facility] (ZYRTEC) 10 0-01 tablet by ity of mg tablet 00:00: mouth [place] 00 daily. Medical Branch azelastine 2020-10 Yes [id number] 1{spray Use 1 [facility] 137 mcg 0-01 } [place] in ity of (0.1 %) 00:00: each [place] nasal spray 00 nostril 2 Med ical (two) Branch times daily. Use in each nostril as directed fluticasone 2020-10 Yes [id number] 1{spray Use 1 [facility] propionate 0-01 } [place] in ity o f 50 00:00: each [place] mcg/actuati 00 nostril Medic al on nasal daily. Branch spray cetirizine 2020-10 Yes [id number] 10mg Take 1 [facility] (ZYRTEC) 10 0-01 tablet by ity of mg tablet 00:00: mouth [place] 00 daily. Medical Branch azelastine 2020-10 Yes [id number] 1{spray Use 1 [facility] 137 mcg 0-01 } [place] in ity of (0.1 %) 00:00: each [place] nasal spray 00 nostril 2 Med ical (two) Branch times daily. Use in each nostril as directed fluticasone 2020-10 Yes [id number] 1{spray Use 1 [facility] propionate 0-01 } [place] in ity o f 50 00:00: each [place] mcg/actuati 00 nostril Medic al on nasal daily. Branch spray cetirizine 2020-10 Yes [id number] 10mg Take 1 [facility] (ZYRTEC) 10 0-01 tablet by ity of mg tablet 00:00: mouth [place] 00 daily. Medical Branch azelastine 2020-10 Yes [id number] 1{spray Use 1 [facility] 137 mcg 0-01 } [place] in ity of (0.1 %) 00:00: each [place] nasal spray 00 nostril 2 Med ical (two) Branch times daily. Use in each nostril as directed fluticasone 2020-10 Yes [id number] 1{spray Use 1 [facility] propionate 0-01 } [place] in ity o f 50 00:00: each [place] mcg/actuati 00 nostril Medic al on nasal daily. Branch spray cetirizine 2020-10 Yes [id number] 10mg Take 1 [facility] (ZYRTEC) 10 0-01 tablet by ity of mg tablet 00:00: mouth [place] 00 daily. Medical Branch azelastine 2020-10 Yes [id number] 1{spray Use 1 [facility] 137 mcg 0-01 } [place] in ity of (0.1 %) 00:00: each [place] nasal spray 00 nostril 2 Med ical (two) Branch times daily. Use in each nostril as directed fluticasone 2020-10 Yes [id number] 1{spray Use 1 [facility] propionate 0-01 } [place] in ity o f 50 00:00: each [place] mcg/actuati 00 nostril Medic al on nasal daily. Branch spray cetirizine 2020-10 Yes [id number] 10mg Take 1 [facility] (ZYRTEC) 10 0-01 tablet by ity of mg tablet 00:00: mouth [place] 00 daily. Medical Branch azelastine 2020-10 Yes [id number] 1{spray Use 1 [facility] 137 mcg 0-01 } [place] in ity of (0.1 %) 00:00: each [place] nasal spray 00 nostril 2 Med ical (two) Branch times daily. Use in each nostril as directed fluticasone 2020-10 Yes [id number] 1{spray Use 1 [facility] propionate 0-01 } [place] in ity o f 50 00:00: each [place] mcg/actuati 00 nostril Medic al on nasal daily. Branch spray cetirizine 2020-10 Yes [id number] 10mg Take 1 [facility] (ZYRTEC) 10 0-01 tablet by ity of mg tablet 00:00: mouth [place] 00 daily. Medical Branch azelastine 2020-10 Yes [id number] 1{spray Use 1 [facility] 137 mcg 0-01 } [place] in ity of (0.1 %) 00:00: each [place] nasal spray 00 nostril 2 Med ical (two) Branch times daily. Use in each nostril as directed fluticasone 2020-10 Yes [id number] 1{spray Use 1 [facility] propionate 0-01 } [place] in ity o f 50 00:00: each [place] mcg/actuati 00 nostril Medic al on nasal daily. Branch spray cetirizine 2020-10 Yes [id number] 10mg Take 1 [facility] (ZYRTEC) 10 0-01 tablet by ity of mg tablet 00:00: mouth [place] 00 daily. Medical Branch azelastine 2020-10 Yes [id number] 1{spray Use 1 [facility] 137 mcg 0-01 } [place] in ity of (0.1 %) 00:00: each [place] nasal spray 00 nostril 2 Med ical (two) Branch times daily. Use in each nostril as directed fluticasone 2020-10 Yes [id number] 1{spray Use 1 [facility] propionate 0-01 } [place] in ity o f 50 00:00: each [place] mcg/actuati 00 nostril Medic al on nasal daily. Branch spray cetirizine 2020-10 Yes [id number] 10mg Take 1 [facility] (ZYRTEC) 10 0-01 tablet by ity of mg tablet 00:00: mouth [place] 00 daily. Medical Branch azelastine 2020-10 Yes [id number] 1{spray Use 1 [facility] 137 mcg 0-01 } [place] in ity of (0.1 %) 00:00: each [place] nasal spray 00 nostril 2 Med ical (two) Branch times daily. Use in each nostril as directed fluticasone 2020-10 Yes [id number] 1{spray Use 1 [facility] propionate 0-01 } [place] in ity o f 50 00:00: each [place] mcg/actuati 00 nostril Medic al on nasal daily. Branch spray cetirizine 2020-10 Yes [id number] 10mg Take 1 [facility] (ZYRTEC) 10 0-01 tablet by ity of mg tablet 00:00: mouth [place] 00 daily. Medical Branch azelastine 2020-10 Yes [id number] 1{spray Use 1 [facility] 137 mcg 0-01 } [place] in ity of (0.1 %) 00:00: each [place] nasal spray 00 nostril 2 Med ical (two) Branch times daily. Use in each nostril as directed fluticasone 2020-10 Yes [id number] 1{spray Use 1 [facility] propionate 0-01 } [place] in ity o f 50 00:00: each [place] mcg/actuati 00 nostril Medic al on nasal daily. Branch spray cetirizine 2020-10 Yes [id number] 10mg Take 1 [facility] (ZYRTEC) 10 0-01 tablet by ity of mg tablet 00:00: mouth [place] 00 daily. Medical Branch azelastine 2020-10 Yes [id number] 1{spray Use 1 [facility] 137 mcg 0-01 } [place] in ity of (0.1 %) 00:00: each [place] nasal spray 00 nostril 2 Med ical (two) Branch times daily. Use in each nostril as directed fluticasone 2020-10 Yes [id number] 1{spray Use 1 [facility] propionate 0-01 } [place] in ity o f 50 00:00: each [place] mcg/actuati 00 nostril Medic al on nasal daily. Branch spray cetirizine 2020-10 Yes [id number] 10mg Take 1 [facility] (ZYRTEC) 10 0-01 tablet by ity of mg tablet 00:00: mouth [place] 00 daily. Medical Branch azelastine 2020-10 Yes [id number] 1{spray Use 1 [facility] 137 mcg 0-01 } [place] in ity of (0.1 %) 00:00: each [place] nasal spray 00 nostril 2 Med ical (two) Branch times daily. Use in each nostril as directed fluticasone 2020-10 Yes [id number] 1{spray Use 1 [facility] propionate 0-01 } [place] in ity o f 50 00:00: each [place] mcg/actuati 00 nostril Medic al on nasal daily. Branch spray cetirizine 2020-10 Yes [id number] 10mg Take 1 [facility] (ZYRTEC) 10 0-01 tablet by ity of mg tablet 00:00: mouth [place] 00 daily. Medical Branch azelastine 2020-10 Yes [id number] 1{spray Use 1 [facility] 137 mcg 0-01 } [place] in ity of (0.1 %) 00:00: each [place] nasal spray 00 nostril 2 Med ical (two) Branch times daily. Use in each nostril as directed fluticasone 2020-10 Yes [id number] 1{spray Use 1 [facility] propionate 0-01 } [place] in ity o f 50 00:00: each [place] mcg/actuati 00 nostril Medic al on nasal daily. Branch spray bromphenira 2020-10- No [id number] 5mL Take 5 mL [facility] mine-pseudo 0-01 02-14 by mouth 4 i ty of ephedrine-D 00:00: 00:00 (four) [place] as M (BROMFED 00 :00 times Medical DM) 2-30-10 daily as Bran ch mg/5 mL needed for syrup Congestion /Allergies . ibuprofen 2021- No [id number] 600mg Take 1 [facility] 600 mg 9-14 tablet by ity of tablet 00:00: 00:00 mouth [place] 00 :00 every 6 Medical (six) Branch hours as needed for Pain (scale 4-6). benzonatate Yes [id number] 100mg Take 1 [facility] 100 mg 9-10 capsule by ity of capsule 00:00: mouth 3 [place] 00 (three) Medical times Branch daily as needed for Cough. benzonatate Yes [id number] 100mg Take 1 [facility] 100 mg 9-10 capsule by ity of capsule 00:00: mouth 3 [place] 00 (three) Medical times Branch daily as needed for Cough. benzonatate Yes [id number] 100mg Take 1 [facility] 100 mg 9-10 capsule by ity of capsule 00:00: mouth (three) Medical times Branch daily as needed for Cough. benzonatate 2020-0 Yes [id number] 100mg Take 1 [facility] 100 mg 9-10 capsule by ity of capsule 00:00: mouth (three) Medical times Branch daily as needed for Cough. benzonatate 1-0 Yes [id number] 100mg Take 1 [facility] 100 mg 9-10 capsule by ity of capsule 00:00: mouth (three) Medical times Branch daily as needed for Cough. benzonatate 2020-0 Yes [id number] 100mg Take 1 [facility] 100 mg 9-10 capsule by ity of capsule 00:00: mouth (three) Medical times Branch daily as needed for Cough. benzonatate 2020-0 Yes [id number] 100mg Take 1 [facility] 100 mg 9-10 capsule by ity of capsule 00:00: mouth (three) Medical times Branch daily as needed for Cough. benzonatate 2020-0 Yes [id number] 100mg Take 1 [facility] 100 mg 9-10 capsule by ity of capsule 00:00: mouth (three) Medical times Branch daily as needed for Cough. benzonatate 2020-0 Yes [id number] 100mg Take 1 [facility] 100 mg 9-10 capsule by ity of capsule 00:00: mouth () Medical times Branch daily as needed for Cough. benzonatate 2020-0 Yes [id number] 100mg Take 1 [facility] 100 mg 9-10 capsule by ity of capsule 00:00: mouth (three) Medical times Branch daily as needed for Cough. benzonatate 2020-0 Yes [id number] 100mg Take 1 [facility] 100 mg 9-10 capsule by ity of capsule 00:00: mouth (three) Medical times Branch daily as needed for Cough. benzonatate 1-0 Yes [id number] 100mg Take 1 [facility] 100 mg 9-10 capsule by ity of capsule 00:00: mouth (three) Medical times Branch daily as needed for Cough. benzonatate 1-0 Yes [id number] 100mg Take 1 [facility] 100 mg 9-10 capsule by ity of capsule 00:00: mouth (three) Medical times Branch daily as needed for Cough. benzonatate 2020-0 Yes [id number] 100mg Take 1 [facility] 100 mg 9-10 capsule by ity of capsule 00:00: mouth (three) Medical times Branch daily as needed for Cough. benzonatate 2020-0 Yes [id number] 100mg Take 1 [facility] 100 mg 9-10 capsule by ity of capsule 00:00: mouth (three) Medical times Branch daily as needed for Cough. benzonatate 2020-0 Yes [id number] 100mg Take 1 [facility] 100 mg 9-10 capsule by ity of capsule 00:00: mouth (three) Medical times Branch daily as needed for Cough. benzonatate 2020-0 Yes [id number] 100mg Take 1 [facility] 100 mg 9-10 capsule by ity of capsule 00:00: mouth (three) Medical times Branch daily as needed for Cough. benzonatate 2020-0 Yes [id number] 100mg Take 1 [facility] 100 mg 9-10 capsule by ity of capsule 00:00: mouth (three) Medical times Branch daily as needed for Cough. benzonatate 2020-0 Yes [id number] 100mg Take 1 [facility] 100 mg 9-10 capsule by ity of capsule 00:00: mouth (three) Medical times Branch daily as needed for Cough. benzonatate 2020-0 Yes [id number] 100mg Take 1 [facility] 100 mg 9-10 capsule by [facility] of capsule 00:00: mouth (three) Medical times Branch daily as needed for Cough. benzonatate 2020-0 Yes [id number] 100mg Take 1 [facility] 100 mg 9-10 capsule by [facility] of capsule 00:00: mouth (three) Medical times Branch daily as needed for Cough. benzonatate 2020-0 Yes [id number] 100mg Take 1 [facility] 100 mg 9-10 capsule by [facility] of capsule 00:00: mouth (three) Medical times Branch daily as needed for Cough. benzonatate 1-0 Yes [id number] 100mg Take 1 [facility] 100 mg 9-10 capsule by [facility] of capsule 00:00: mouth (three) Medical times Branch daily as needed for Cough. benzonatate 2020-0 Yes [id number] 100mg Take 1 [facility] 100 mg 9-10 capsule by [facility] of capsule 00:00: mouth 3 (three) Medical times Branch daily as needed for Cough. benzonatate 1-0 Yes [id number] 100mg Take 1 [facility] 100 mg 9-10 capsule by [facility] of capsule 00:00: mouth (three) Medical times Branch daily as needed for Cough. benzonatate 2021-0 Yes [id number] 100mg Take 1 [facility] 100 mg 9-10 capsule by [facility] of capsule 00:00: mouth (three) Medical times Branch daily as needed for Cough. benzonatate 1-0 Yes [id number] 100mg Take 1 [facility] 100 mg 9-10 capsule by [facility] of capsule 00:00: mouth (three) Medical times Branch daily as needed for Cough. benzonatate 1-0 Yes [id number] 100mg Take 1 [facility] 100 mg 9-10 capsule by ity of capsule 00:00: mouth () Medical times Branch daily as needed for Cough. benzonatate 1-0 Yes [id number] 100mg Take 1 [facility] 100 mg 9-10 capsule by [facility] of capsule 00:00: mouth (three) Medical times Branch daily as needed for Cough. benzonatate 1-0 Yes [id number] 100mg Take 1 [facility] 100 mg 9-10 capsule by [facility] of capsule 00:00: mouth (three) Medical times Branch daily as needed for Cough. benzonatate 1-0 Yes [id number] 100mg Take 1 [facility] 100 mg 9-10 capsule by it[facility] of capsule 00:00: mouth (three) Medical times Branch daily as needed for Cough. benzonatate 1-0 Yes [id number] 100mg Take 1 [facility] 100 mg 9-10 capsule by ity of capsule 00:00: mouth (three) Medical times Branch daily as needed for Cough. medroxyPROG 2020-0 Yes [id number] Take one [facility] ESTERone 4-03 by mouth ity of (PROVERA) 00:00: days one [place] 10 mg 00 through 10 Medical tablet of each Branch month beginning 02/27/20. medroxyPROG 2020-0 Yes [id number] Take one [facility] ESTERone 4-03 by mouth ity of (PROVERA) 00:00: days one [place] 10 mg 00 through 10 Medical tablet of each Branch month beginning 02/27/20. medroxyPROG 2020-0 Yes [id number] Take one [facility] ESTERone 4-03 by mouth ity of (PROVERA) 00:00: days one [place] 10 mg 00 through 10 Medical tablet of each Branch month beginning 02/27/20. medroxyPROG 2020-0 Yes [id number] Take one [facility] ESTERone 4-03 by mouth ity of (PROVERA) 00:00: days one [place] 10 mg 00 through 10 Medical tablet of each Branch month beginning 02/27/20. medroxyPROG 2020-0 Yes [id number] Take one [facility] ESTERone 4-03 by mouth ity of (PROVERA) 00:00: days one [place] 10 mg 00 through 10 Medical tablet of each Branch month beginning 02/27/20. medroxyPROG 2020-0 Yes [id number] Take one [facility] ESTERone 4-03 by mouth ity of (PROVERA) 00:00: days one [place] 10 mg 00 through 10 Medical tablet of each Branch month beginning 02/27/20. medroxyPROG 2020-0 2021- No [id number] Take one [facility] ESTERone 4-03 12-21 by mouth ity of (PROVERA) 00:00: 00:00 days one [place] 10 mg 00 :00 through 10 Medical tablet of each Branch month beginning 02/27/20. medroxyPROG 2020-0 2- No [id number] Take one [facility] ESTERone 4-03 12-21 by mouth ity of (PROVERA) 00:00: 00:00 days one [place] 10 mg 00 :00 through 10 Medical tablet of each Branch month beginning 02/27/20. medroxyPROG 2020-0 2- No [id number] Take one [facility] ESTERone 4-03 12-21 by mouth ity of (PROVERA) 00:00: 00:00 days one [place] 10 mg 00 :00 through 10 Medical tablet of each Branch month beginning 02/27/20. amitriptyli 2020-0 Yes [id number] 25mg Take 1 [facility] ne 25 mg 3-26 tablet by ity of tablet 00:00: mouth at [place] 00 bedtime. Medical Branch metoprolol 2020-0 Yes [id number] 50mg Take 1 [facility] tartrate 50 3-26 tablet by ity of mg tablet 00:00: mouth 2 [place] (two) Medical times Branch daily. amitriptyli 2020-0 Yes [id number] 25mg Take 1 [facility] ne 25 mg 3-26 tablet by ity of tablet 00:00: mouth at [place] [address] bedtime. Medical Branch metoprolol 2020-0 Yes [id number] 50mg Take 1 [facility] tartrate 50 3-26 tablet by ity of mg tablet 00:00: mouth 2 [place] (two) Medical times Branch daily. amitriptyli 2020-0 Yes [id number] 25mg Take 1 [facility] ne 25 mg 3-26 tablet by ity of tablet 00:00: mouth at [place] bedtime. Medical Branch metoprolol 2020-0 Yes [id number] 50mg Take 1 [facility] tartrate 50 3-26 tablet by ity of mg tablet 00:00: mouth 2 [place] (two) Medical times Branch daily. amitriptyli 2020-0 Yes [id number] 25mg Take 1 [facility] ne 25 mg 3-26 tablet by ity of tablet 00:00: mouth at [place] [address] bedtime. Medical Branch metoprolol 2020-0 Yes [id number] 50mg Take 1 [facility] tartrate 50 3-26 tablet by ity of mg tablet 00:00: mouth 2 [place] (two) Medical times Branch daily. amitriptyli 2020-0 Yes [id number] 25mg Take 1 [facility] ne 25 mg 3-26 tablet by ity of tablet 00:00: mouth at [place] [address] bedtime. Medical Branch metoprolol 2020-0 Yes [id number] 50mg Take 1 [facility] tartrate 50 3-26 tablet by ity of mg tablet 00:00: mouth 2 [place] (two) Medical times Branch daily. amitriptyli 2020-0 Yes [id number] 25mg Take 1 [facility] ne 25 mg 3-26 tablet by ity of tablet 00:00: mouth at [place] [address] bedtime. Medical Branch metoprolol 2020-0 Yes [id number] 50mg Take 1 [facility] tartrate 50 3-26 tablet by ity of mg tablet 00:00: mouth 2 [place] (two) Medical times Branch daily. amitriptyli 2020-0 Yes [id number] 25mg Take 1 [facility] ne 25 mg 3-26 tablet by ity of tablet 00:00: mouth at [place] [address] bedtime. Medical Branch metoprolol 2020-0 Yes [id number] 50mg Take 1 [facility] tartrate 50 3-26 tablet by ity of mg tablet 00:00: mouth 2 [place] (two) Medical times Branch daily. amitriptyli 2020-0 Yes [id number] 25mg Take 1 [facility] ne 25 mg 3-26 tablet by ity of tablet 00:00: mouth at [place] [address] bedtime. Medical Branch metoprolol 2020-0 Yes [id number] 50mg Take 1 [facility] tartrate 50 3-26 tablet by ity of mg tablet 00:00: mouth 2 [place] (two) Medical times Branch daily. amitriptyli 2020-0 Yes [id number] 25mg Take 1 [facility] ne 25 mg 3-26 tablet by ity of tablet 00:00: mouth at [place] [address] bedtime. Medical Branch metoprolol 2020-0 Yes [id number] 50mg Take 1 [facility] tartrate 50 3-26 tablet by ity of mg tablet 00:00: mouth 2 [place] (two) Medical times Branch daily. amitriptyli 2020-0 Yes [id number] 25mg Take 1 [facility] ne 25 mg 3-26 tablet by ity of tablet 00:00: mouth at [place] [address] bedtime. Medical Branch metoprolol 2020-0 Yes [id number] 50mg Take 1 [facility] tartrate 50 3-26 tablet by ity of mg tablet 00:00: mouth 2 [place] (two) Medical times Branch daily. amitriptyli 2020-0 Yes [id number] 25mg Take 1 [facility] ne 25 mg 3-26 tablet by ity of tablet 00:00: mouth at [place] [address] bedtime. Medical Branch metoprolol 2020-0 Yes [id number] 50mg Take 1 [facility] tartrate 50 3-26 tablet by ity of mg tablet 00:00: mouth 2 [place] (two) Medical times Branch daily. amitriptyli 2020-0 Yes [id number] 25mg Take 1 [facility] ne 25 mg 3-26 tablet by ity of tablet 00:00: mouth at [place] [address] bedtime. Medical Branch metoprolol 2020-0 Yes [id number] 50mg Take 1 [facility] tartrate 50 3-26 tablet by ity of mg tablet 00:00: mouth 2 [place] (two) Medical times Branch daily. amitriptyli 2020-0 Yes [id number] 25mg Take 1 [facility] ne 25 mg 3-26 tablet by ity of tablet 00:00: mouth at [place] [address] bedtime. Medical Branch metoprolol 2020-0 Yes [id number] 50mg Take 1 [facility] tartrate 50 3-26 tablet by ity of mg tablet 00:00: mouth 2 [place] (two) Medical times Branch daily. amitriptyli 2020-0 Yes [id number] 25mg Take 1 [facility] ne 25 mg 3-26 tablet by ity of tablet 00:00: mouth at [place] [address] bedtime. Medical Branch metoprolol 2020-0 Yes [id number] 50mg Take 1 [facility] tartrate 50 3-26 tablet by ity of mg tablet 00:00: mouth 2 [place] (two) Medical times Branch daily. amitriptyli 2020-0 Yes [id number] 25mg Take 1 [facility] ne 25 mg 3-26 tablet by ity of tablet 00:00: mouth at [place] [address] bedtime. Medical Branch metoprolol 2020-0 Yes [id number] 50mg Take 1 [facility] tartrate 50 3-26 tablet by ity of mg tablet 00:00: mouth 2 [place] (two) Medical times Branch daily. amitriptyli 2020-0 Yes [id number] 25mg Take 1 [facility] ne 25 mg 3-26 tablet by ity of tablet 00:00: mouth at [place] [address] bedtime. Medical Branch metoprolol 2020-0 Yes [id number] 50mg Take 1 [facility] tartrate 50 3-26 tablet by ity of mg tablet 00:00: mouth 2 [place] (two) Medical times Branch daily. amitriptyli 2020-0 Yes [id number] 25mg Take 1 [facility] ne 25 mg 3-26 tablet by ity of tablet 00:00: mouth at [place] [address] bedtime. Medical Branch metoprolol 2020-0 Yes [id number] 50mg Take 1 [facility] tartrate 50 3-26 tablet by ity of mg tablet 00:00: mouth 2 [place] (two) Medical times Branch daily. amitriptyli 2020-0 Yes [id number] 25mg Take 1 [facility] ne 25 mg 3-26 tablet by ity of tablet 00:00: mouth at [place] [address] bedtime. Medical Branch metoprolol 2020-0 Yes [id number] 50mg Take 1 [facility] tartrate 50 3-26 tablet by ity of mg tablet 00:00: mouth 2 [place] (two) Medical times Branch daily. amitriptyli 2020-0 Yes [id number] 25mg Take 1 [facility] ne 25 mg 3-26 tablet by ity of tablet 00:00: mouth at [place] [address] bedtime. Medical Branch metoprolol 2020-0 Yes [id number] 50mg Take 1 [facility] tartrate 50 3-26 tablet by ity of mg tablet 00:00: mouth 2 [place] (two) Medical times Branch daily. amitriptyli 2020-0 Yes [id number] 25mg Take 1 [facility] ne 25 mg 3-26 tablet by ity of tablet 00:00: mouth at [place] [address] bedtime. Medical Branch metoprolol 2020-0 Yes [id number] 50mg Take 1 [facility] tartrate 50 3-26 tablet by ity of mg tablet 00:00: mouth 2 [place] (two) Medical times Branch daily. amitriptyli 2020-0 Yes [id number] 25mg Take 1 [facility] ne 25 mg 3-26 tablet by ity of tablet 00:00: mouth at [place] [address] bedtime. Medical Branch metoprolol 2020-0 Yes [id number] 50mg Take 1 [facility] tartrate 50 3-26 tablet by ity of mg tablet 00:00: mouth 2 [place] (two) Medical times Branch daily. amitriptyli 2020-0 Yes [id number] 25mg Take 1 [facility] ne 25 mg 3-26 tablet by ity of tablet 00:00: mouth at [place] [address] bedtime. Medical Branch metoprolol 2020-0 Yes [id number] 50mg Take 1 [facility] tartrate 50 3-26 tablet by ity of mg tablet 00:00: mouth 2 [place] (two) Medical times Branch daily. amitriptyli 2020-0 Yes [id number] 25mg Take 1 [facility] ne 25 mg 3-26 tablet by ity of tablet 00:00: mouth at [place] [address] bedtime. Medical Branch metoprolol 2020-0 Yes [id number] 50mg Take 1 [facility] tartrate 50 3-26 tablet by ity of mg tablet 00:00: mouth 2 [place] (two) Medical times Branch daily. amitriptyli 2020-0 Yes [id number] 25mg Take 1 [facility] ne 25 mg 3-26 tablet by ity of tablet 00:00: mouth at [place] [address] bedtime. Medical Branch metoprolol 2020-0 Yes [id number] 50mg Take 1 [facility] tartrate 50 3-26 tablet by ity of mg tablet 00:00: mouth 2 [place] (two) Medical times Branch daily. amitriptyli 2020-0 Yes [id number] 25mg Take 1 [facility] ne 25 mg 3-26 tablet by ity of tablet 00:00: mouth at [place] [address] bedtime. Medical Branch metoprolol 2020-0 Yes [id number] 50mg Take 1 [facility] tartrate 50 3-26 tablet by ity of mg tablet 00:00: mouth 2 [place] (two) Medical times Branch daily. amitriptyli 2020-0 Yes [id number] 25mg Take 1 [facility] ne 25 mg 3-26 tablet by ity of tablet 00:00: mouth at [place] 00 bedtime. Medical Branch metoprolol 2020-0 Yes [id number] 50mg Take 1 [facility] tartrate 50 3-26 tablet by ity of mg tablet 00:00: mouth 2 [place] (two) Medical times Branch daily. amitriptyli 2020-0 Yes [id number] 25mg Take 1 [facility] ne 25 mg 3-26 tablet by ity of tablet 00:00: mouth at [place] [address] bedtime. Medical Branch metoprolol 2020-0 Yes [id number] 50mg Take 1 [facility] tartrate 50 3-26 tablet by ity of mg tablet 00:00: mouth 2 [place] (two) Medical times Branch daily. amitriptyli 2020-0 Yes [id number] 25mg Take 1 [facility] ne 25 mg 3-26 tablet by ity of tablet 00:00: mouth at [place] [address] bedtime. Medical Branch metoprolol 2020-0 Yes [id number] 50mg Take 1 [facility] tartrate 50 3-26 tablet by ity of mg tablet 00:00: mouth 2 [place] (two) Medical times Branch daily. amitriptyli 2020-0 Yes [id number] 25mg Take 1 [facility] ne 25 mg 3-26 tablet by ity of tablet 00:00: mouth at [place] [address] bedtime. Medical Branch metoprolol 2020-0 Yes [id number] 50mg Take 1 [facility] tartrate 50 3-26 tablet by ity of mg tablet 00:00: mouth 2 [place] (two) Medical times Branch daily. amitriptyli 2020-0 Yes [id number] 25mg Take 1 [facility] ne 25 mg 3-26 tablet by ity of tablet 00:00: mouth at [place] [address] bedtime. Medical Branch metoprolol 2020-0 Yes [id number] 50mg Take 1 [facility] tartrate 50 3-26 tablet by ity of mg tablet 00:00: mouth 2 [place] (two) Medical times Branch daily. amitriptyli 2020-0 Yes [id number] 25mg Take 1 [facility] ne 25 mg 3-26 tablet by ity of tablet 00:00: mouth at [place] 00 bedtime. Medical Branch metoprolol 2020-0 Yes [id number] 50mg Take 1 [facility] tartrate 50 3-26 tablet by ity of mg tablet 00:00: mouth 2 [place] 00 (two) Medical times Branch daily. amitriptyli 2020-0 Yes [id number] 25mg Take 1 [facility] ne 25 mg 3-26 tablet by ity of tablet 00:00: mouth at [place] [address] bedtime. Medical Branch metoprolol 2020-0 Yes [id number] 50mg Take 1 [facility] tartrate 50 3-26 tablet by ity of mg tablet 00:00: mouth 2 [place] 00 (two) Medical times Branch daily. budesonide- 2020-0 Yes [id number] 2{puff} Inhale 2 [facility] formoteroL 2-14 Puffs 2 ity of 160-4.5 00:00: (two) [place] mcg/actuati 00 times Medical on inhaler daily. Branch indomethaci 2020-0 Yes [id number] 50mg Take 1 [facility] n 50 mg 2-14 capsule by ity of capsule 00:00: mouth 3 [place] (three) Medical times Branch daily with meals. albuterol 2020-0 Yes [id number] 2{puff} Inhale 2 [facility] 90 2-14 Puffs ity of mcg/actuati 00:00: every 6 [place] on inhaler 00 (six) Medical hours as Branch needed for Wheezing or Shortness of Breath. levETIRAcet 2020-0 Yes [id number] 500mg Take 1 [facility] am (KEPPRA) 2-14 tablet by ity of 500 mg 00:00: mouth 2 [place] tablet 00 (two) Medical times Branch daily. budesonide- 2020-0 Yes [id number] 2{puff} Inhale 2 [facility] formoteroL 2-14 Puffs 2 ity of 160-4.5 00:00: (two) [place] mcg/actuati 00 times Medical on inhaler daily. Branch indomethaci 2020-0 Yes [id number] 50mg Take 1 [facility] n 50 mg 2-14 capsule by ity of capsule 00:00: mouth 3 [place] 00 (three) Medical times Branch daily with meals. albuterol 2020-0 Yes [id number] 2{puff} Inhale 2 [facility] 90 2-14 Puffs ity of mcg/actuati 00:00: every 6 [place] on inhaler 00 (six) Medical hours as Branch needed for Wheezing or Shortness of Breath. levETIRAcet 2020-0 Yes [id number] 500mg Take 1 [facility] am (KEPPRA) 2-14 tablet by ity of 500 mg 00:00: mouth 2 [place] tablet 00 (two) Medical times Branch daily. budesonide- 2020-0 Yes [id number] 2{puff} Inhale 2 [facility] formoteroL 2-14 Puffs 2 ity of 160-4.5 00:00: (two) [place] mcg/actuati 00 times Medical on inhaler daily. Branch indomethaci 2020-0 Yes [id number] 50mg Take 1 [facility] n 50 mg 2-14 capsule by ity of capsule 00:00: mouth 3 00 (three) Medical times Branch daily with meals. albuterol 2020-0 Yes [id number] 2{puff} Inhale 2 [facility] 90 2-14 Puffs ity of mcg/actuati 00:00: every 6 [place] on inhaler 00 (six) Medical hours as Branch needed for Wheezing or Shortness of Breath. levETIRAcet 2020-0 Yes [id number] 500mg Take 1 [facility] am (KEPPRA) 2-14 tablet by ity of 500 mg 00:00: mouth 2 [place] tablet 00 (two) Medical times Branch daily. budesonide- 2020-0 Yes [id number] 2{puff} Inhale 2 [facility] formoteroL 2-14 Puffs 2 ity of 160-4.5 00:00: (two) [place] mcg/actuati 00 times Medical on inhaler daily. Branch indomethaci 2020-0 Yes [id number] 50mg Take 1 [facility] n 50 mg 2-14 capsule by ity of capsule 00:00: mouth 3 [place] 00 (three) Medical times Branch daily with meals. albuterol 2020-0 Yes [id number] 2{puff} Inhale 2 [facility] 90 2-14 Puffs ity of mcg/actuati 00:00: every 6 [place] on inhaler 00 (six) Medical hours as Branch needed for Wheezing or Shortness of Breath. levETIRAcet 2020-0 Yes [id number] 500mg Take 1 [facility] am (KEPPRA) 2-14 tablet by ity of 500 mg 00:00: mouth 2 [place] tablet 00 (two) Medical times Branch daily. budesonide- 2020-0 Yes [id number] 2{puff} Inhale 2 [facility] formoteroL 2-14 Puffs 2 ity of 160-4.5 00:00: (two) [place] mcg/actuati 00 times Medical on inhaler daily. Branch indomethaci 2020-0 Yes [id number] 50mg Take 1 [facility] n 50 mg 2-14 capsule by ity of capsule 00:00: mouth 3 [place] 00 (three) Medical times Branch daily with meals. albuterol 2020-0 Yes [id number] 2{puff} Inhale 2 [facility] 90 2-14 Puffs ity of mcg/actuati 00:00: every 6 [place] on inhaler 00 (six) Medical hours as Branch needed for Wheezing or Shortness of Breath. levETIRAcet 2020-0 Yes [id number] 500mg Take 1 [facility] am (KEPPRA) 2-14 tablet by ity of 500 mg 00:00: mouth 2 [place] tablet 00 (two) Medical times Branch daily. budesonide- 2020-0 Yes [id number] 2{puff} Inhale 2 [facility] formoteroL 2-14 Puffs 2 ity of 160-4.5 00:00: (two) [place] mcg/actuati 00 times Medical on inhaler daily. Branch indomethaci 2020-0 Yes [id number] 50mg Take 1 [facility] n 50 mg 2-14 capsule by ity of capsule 00:00: mouth 3 [place] 00 (three) Medical times Branch daily with meals. albuterol 2020-0 Yes [id number] 2{puff} Inhale 2 [facility] 90 2-14 Puffs ity of mcg/actuati 00:00: every 6 [place] on inhaler 00 (six) Medical hours as Branch needed for Wheezing or Shortness of Breath. levETIRAcet 2020-0 Yes [id number] 500mg Take 1 [facility] am (KEPPRA) 2-14 tablet by ity of 500 mg 00:00: mouth 2 [place] tablet 00 (two) Medical times Branch daily. budesonide- 2020-0 Yes [id number] 2{puff} Inhale 2 [facility] formoteroL 2-14 Puffs 2 ity of 160-4.5 00:00: (two) [place] mcg/actuati 00 times Medical on inhaler daily. Branch indomethaci 2020-0 Yes [id number] 50mg Take 1 [facility] n 50 mg 2-14 capsule by ity of capsule 00:00: mouth 3 [place] 00 (three) Medical times Branch daily with meals. albuterol 2020-0 Yes [id number] 2{puff} Inhale 2 [facility] 90 2-14 Puffs ity of mcg/actuati 00:00: every 6 [place] on inhaler 00 (six) Medical hours as Branch needed for Wheezing or Shortness of Breath. levETIRAcet 2020-0 Yes [id number] 500mg Take 1 [facility] am (KEPPRA) 2-14 tablet by ity of 500 mg 00:00: mouth 2 [place] tablet 00 (two) Medical times Branch daily. budesonide- 2020-0 Yes [id number] 2{puff} Inhale 2 [facility] formoteroL 2-14 Puffs 2 ity of 160-4.5 00:00: (two) [place] mcg/actuati 00 times Medical on inhaler daily. Branch indomethaci 2020-0 Yes [id number] 50mg Take 1 [facility] n 50 mg 2-14 capsule by ity of capsule 00:00: mouth 3 00 (three) Medical times Branch daily with meals. albuterol 2020-0 Yes [id number] 2{puff} Inhale 2 [facility] 90 2-14 Puffs ity of mcg/actuati 00:00: every 6 [place] on inhaler 00 (six) Medical hours as Branch needed for Wheezing or Shortness of Breath. levETIRAcet 2020-0 Yes [id number] 500mg Take 1 [facility] am (KEPPRA) 2-14 tablet by ity of 500 mg 00:00: mouth 2 [place] tablet 00 (two) Medical times Branch daily. budesonide- 2020-0 Yes [id number] 2{puff} Inhale 2 [facility] formoteroL 2-14 Puffs 2 ity of 160-4.5 00:00: (two) [place] mcg/actuati 00 times Medical on inhaler daily. Branch indomethaci 2020-0 Yes [id number] 50mg Take 1 [facility] n 50 mg 2-14 capsule by ity of capsule 00:00: mouth 3 [place] 00 (three) Medical times Branch daily with meals. albuterol 2020-0 Yes [id number] 2{puff} Inhale 2 [facility] 90 2-14 Puffs ity of mcg/actuati 00:00: every 6 [place] on inhaler 00 (six) Medical hours as Branch needed for Wheezing or Shortness of Breath. levETIRAcet 2020-0 Yes [id number] 500mg Take 1 [facility] am (KEPPRA) 2-14 tablet by ity of 500 mg 00:00: mouth 2 [place] tablet 00 (two) Medical times Branch daily. budesonide- 2020-0 Yes [id number] 2{puff} Inhale 2 [facility] formoteroL 2-14 Puffs 2 ity of 160-4.5 00:00: (two) [place] mcg/actuati 00 times Medical on inhaler daily. Branch indomethaci 2020-0 Yes [id number] 50mg Take 1 [facility] n 50 mg 2-14 capsule by ity of capsule 00:00: mouth 3 [place] 00 (three) Medical times Branch daily with meals. albuterol 2020-0 Yes [id number] 2{puff} Inhale 2 [facility] 90 2-14 Puffs ity of mcg/actuati 00:00: every 6 [place] on inhaler 00 (six) Medical hours as Branch needed for Wheezing or Shortness of Breath. levETIRAcet 2020-0 Yes [id number] 500mg Take 1 [facility] am (KEPPRA) 2-14 tablet by ity of 500 mg 00:00: mouth 2 [place] tablet 00 (two) Medical times Branch daily. budesonide- 2020-0 Yes [id number] 2{puff} Inhale 2 [facility] formoteroL 2-14 Puffs 2 ity of 160-4.5 00:00: (two) [place] mcg/actuati 00 times Medical on inhaler daily. Branch indomethaci 2020-0 Yes [id number] 50mg Take 1 [facility] n 50 mg 2-14 capsule by ity of capsule 00:00: mouth 3 [place] 00 (three) Medical times Branch daily with meals. albuterol 2020-0 Yes [id number] 2{puff} Inhale 2 [facility] 90 2-14 Puffs ity of mcg/actuati 00:00: every 6 [place] on inhaler 00 (six) Medical hours as Branch needed for Wheezing or Shortness of Breath. levETIRAcet 2020-0 Yes [id number] 500mg Take 1 [facility] am (KEPPRA) 2-14 tablet by ity of 500 mg 00:00: mouth 2 [place] tablet 00 (two) Medical times Branch daily. budesonide- 2020-0 Yes [id number] 2{puff} Inhale 2 [facility] formoteroL 2-14 Puffs 2 ity of 160-4.5 00:00: (two) [place] mcg/actuati 00 times Medical on inhaler daily. Branch indomethaci 2020-0 Yes [id number] 50mg Take 1 [facility] n 50 mg 2-14 capsule by ity of capsule 00:00: mouth 3 [place] 00 (three) Medical times Branch daily with meals. albuterol 2020-0 Yes [id number] 2{puff} Inhale 2 [facility] 90 2-14 Puffs ity of mcg/actuati 00:00: every 6 [place] on inhaler 00 (six) Medical hours as Branch needed for Wheezing or Shortness of Breath. levETIRAcet 2020-0 Yes [id number] 500mg Take 1 [facility] am (KEPPRA) 2-14 tablet by ity of 500 mg 00:00: mouth 2 [place] tablet 00 (two) Medical times Branch daily. budesonide- 2020-0 Yes [id number] 2{puff} Inhale 2 [facility] formoteroL 2-14 Puffs 2 ity of 160-4.5 00:00: (two) [place] mcg/actuati 00 times Medical on inhaler daily. Branch indomethaci 2020-0 Yes [id number] 50mg Take 1 [facility] n 50 mg 2-14 capsule by ity of capsule 00:00: mouth 3 [place] 00 (three) Medical times Branch daily with meals. albuterol 2020-0 Yes [id number] 2{puff} Inhale 2 [facility] 90 2-14 Puffs ity of mcg/actuati 00:00: every 6 [place] on inhaler 00 (six) Medical hours as Branch needed for Wheezing or Shortness of Breath. levETIRAcet 2020-0 Yes [id number] 500mg Take 1 [facility] am (KEPPRA) 2-14 tablet by ity of 500 mg 00:00: mouth 2 [place] tablet 00 (two) Medical times Branch daily. budesonide- 2020-0 Yes [id number] 2{puff} Inhale 2 [facility] formoteroL 2-14 Puffs 2 ity of 160-4.5 00:00: (two) [place] mcg/actuati 00 times Medical on inhaler daily. Branch indomethaci 2020-0 Yes [id number] 50mg Take 1 [facility] n 50 mg 2-14 capsule by ity of capsule 00:00: mouth 3 [place] 00 (three) Medical times Branch daily with meals. albuterol 2020-0 Yes [id number] 2{puff} Inhale 2 [facility] 90 2-14 Puffs ity of mcg/actuati 00:00: every 6 [place] on inhaler 00 (six) Medical hours as Branch needed for Wheezing or Shortness of Breath. levETIRAcet 2020-0 Yes [id number] 500mg Take 1 [facility] am (KEPPRA) 2-14 tablet by ity of 500 mg 00:00: mouth 2 [place] tablet 00 (two) Medical times Branch daily. budesonide- 2020-0 Yes [id number] 2{puff} Inhale 2 [facility] formoteroL 2-14 Puffs 2 ity of 160-4.5 00:00: (two) [place] mcg/actuati 00 times Medical on inhaler daily. Branch indomethaci 2020-0 Yes [id number] 50mg Take 1 [facility] n 50 mg 2-14 capsule by ity of capsule 00:00: mouth 3 00 (three) Medical times Branch daily with meals. albuterol 2020-0 Yes [id number] 2{puff} Inhale 2 [facility] 90 2-14 Puffs ity of mcg/actuati 00:00: every 6 [place] on inhaler 00 (six) Medical hours as Branch needed for Wheezing or Shortness of Breath. levETIRAcet 2020-0 Yes [id number] 500mg Take 1 [facility] am (KEPPRA) 2-14 tablet by ity of 500 mg 00:00: mouth 2 [place] tablet 00 (two) Medical times Branch daily. budesonide- 2020-0 Yes [id number] 2{puff} Inhale 2 [facility] formoteroL 2-14 Puffs 2 ity of 160-4.5 00:00: (two) [place] mcg/actuati 00 times Medical on inhaler daily. Branch indomethaci 2020-0 Yes [id number] 50mg Take 1 [facility] n 50 mg 2-14 capsule by ity of capsule 00:00: mouth 3 [place] 00 (three) Medical times Branch daily with meals. albuterol 2020-0 Yes [id number] 2{puff} Inhale 2 [facility] 90 2-14 Puffs ity of mcg/actuati 00:00: every 6 [place] as on inhaler 00 (six) Medical hours as Branch needed for Wheezing or Shortness of Breath. levETIRAcet 2020-0 Yes [id number] 500mg Take 1 [facility] am (KEPPRA) 2-14 tablet by ity of 500 mg 00:00: mouth 2 [place] tablet 00 (two) Medical times Branch daily. budesonide- 2020-0 Yes [id number] 2{puff} Inhale 2 [facility] formoteroL 2-14 Puffs 2 ity of 160-4.5 00:00: (two) [place] mcg/actuati 00 times Medical on inhaler daily. Branch indomethaci 2020-0 Yes [id number] 50mg Take 1 [facility] n 50 mg 2-14 capsule by ity of capsule 00:00: mouth 3 [place] 00 (three) Medical times Branch daily with meals. albuterol 2020-0 Yes [id number] 2{puff} Inhale 2 [facility] 90 2-14 Puffs ity of mcg/actuati 00:00: every 6 [place] as on inhaler 00 (six) Medical hours as Branch needed for Wheezing or Shortness of Breath. levETIRAcet 2020-0 Yes [id number] 500mg Take 1 [facility] am (KEPPRA) 2-14 tablet by ity of 500 mg 00:00: mouth 2 [place] tablet 00 (two) Medical times Branch daily. budesonide- 2020-0 Yes [id number] 2{puff} Inhale 2 [facility] formoteroL 2-14 Puffs 2 ity of 160-4.5 00:00: (two) [place] mcg/actuati 00 times Medical on inhaler daily. Branch indomethaci 2020-0 Yes [id number] 50mg Take 1 [facility] n 50 mg 2-14 capsule by ity of capsule 00:00: mouth 3 [place] 00 (three) Medical times Branch daily with meals. albuterol 2020-0 Yes [id number] 2{puff} Inhale 2 [facility] 90 2-14 Puffs ity of mcg/actuati 00:00: every 6 [place] as on inhaler 00 (six) Medical hours as Branch needed for Wheezing or Shortness of Breath. levETIRAcet 2020-0 Yes [id number] 500mg Take 1 [facility] am (KEPPRA) 2-14 tablet by ity of 500 mg 00:00: mouth 2 [place] tablet 00 (two) Medical times Branch daily. budesonide- 2020-0 Yes [id number] 2{puff} Inhale 2 [facility] formoteroL 2-14 Puffs 2 ity of 160-4.5 00:00: (two) [place] mcg/actuati 00 times Medical on inhaler daily. Branch indomethaci 2020-0 Yes [id number] 50mg Take 1 [facility] n 50 mg 2-14 capsule by ity of capsule 00:00: mouth 3 [place] 00 (three) Medical times Branch daily with meals. albuterol 2020-0 Yes [id number] 2{puff} Inhale 2 [facility] 90 2-14 Puffs ity of mcg/actuati 00:00: every 6 [place] as on inhaler 00 (six) Medical hours as Branch needed for Wheezing or Shortness of Breath. levETIRAcet 2020-0 Yes [id number] 500mg Take 1 [facility] am (KEPPRA) 2-14 tablet by ity of 500 mg 00:00: mouth 2 [place] tablet 00 (two) Medical times Branch daily. budesonide- 2020-0 Yes [id number] 2{puff} Inhale 2 [facility] formoteroL 2-14 Puffs 2 ity of 160-4.5 00:00: (two) [place] mcg/actuati 00 times Medical on inhaler daily. Branch indomethaci 2020-0 Yes [id number] 50mg Take 1 [facility] n 50 mg 2-14 capsule by ity of capsule 00:00: mouth 3 [place] 00 (three) Medical times Branch daily with meals. albuterol 2020-0 Yes [id number] 2{puff} Inhale 2 [facility] 90 2-14 Puffs ity of mcg/actuati 00:00: every 6 [place] as on inhaler 00 (six) Medical hours as Branch needed for Wheezing or Shortness of Breath. levETIRAcet 2020-0 Yes [id number] 500mg Take 1 [facility] am (KEPPRA) 2-14 tablet by ity of 500 mg 00:00: mouth 2 [place] tablet 00 (two) Medical times Branch daily. budesonide- 2020-0 Yes [id number] 2{puff} Inhale 2 [facility] formoteroL 2-14 Puffs 2 ity of 160-4.5 00:00: (two) [place] mcg/actuati 00 times Medical on inhaler daily. Branch indomethaci 2020-0 Yes [id number] 50mg Take 1 [facility] n 50 mg 2-14 capsule by ity of capsule 00:00: mouth 3 [place] 00 (three) Medical times Branch daily with meals. albuterol 2020-0 Yes [id number] 2{puff} Inhale 2 [facility] 90 2-14 Puffs ity of mcg/actuati 00:00: every 6 [place] as on inhaler 00 (six) Medical hours as Branch needed for Wheezing or Shortness of Breath. levETIRAcet 2020-0 Yes [id number] 500mg Take 1 [facility] am (KEPPRA) 2-14 tablet by ity of 500 mg 00:00: mouth 2 [place] tablet 00 (two) Medical times Branch daily. budesonide- 2020-0 Yes [id number] 2{puff} Inhale 2 [facility] formoteroL 2-14 Puffs 2 ity of 160-4.5 00:00: (two) [place] mcg/actuati 00 times Medical on inhaler daily. Branch indomethaci 2020-0 Yes [id number] 50mg Take 1 [facility] n 50 mg 2-14 capsule by ity of capsule 00:00: mouth 3 [place] 00 (three) Medical times Branch daily with meals. albuterol 2020-0 Yes [id number] 2{puff} Inhale 2 [facility] 90 2-14 Puffs ity of mcg/actuati 00:00: every 6 [place] as on inhaler 00 (six) Medical hours as Branch needed for Wheezing or Shortness of Breath. levETIRAcet 2020-0 Yes [id number] 500mg Take 1 [facility] am (KEPPRA) 2-14 tablet by ity of 500 mg 00:00: mouth 2 [place] tablet 00 (two) Medical times Branch daily. budesonide- 2020-0 Yes [id number] 2{puff} Inhale 2 [facility] formoteroL 2-14 Puffs 2 ity of 160-4.5 00:00: (two) [place] mcg/actuati 00 times Medical on inhaler daily. Branch indomethaci 2020-0 Yes [id number] 50mg Take 1 [facility] n 50 mg 2-14 capsule by ity of capsule 00:00: mouth 3 [place] 00 (three) Medical times Branch daily with meals. albuterol 2020-0 Yes [id number] 2{puff} Inhale 2 [facility] 90 2-14 Puffs ity of mcg/actuati 00:00: every 6 [place] as on inhaler 00 (six) Medical hours as Branch needed for Wheezing or Shortness of Breath. levETIRAcet 2020-0 Yes [id number] 500mg Take 1 [facility] am (KEPPRA) 2-14 tablet by ity of 500 mg 00:00: mouth 2 [place] tablet 00 (two) Medical times Branch daily. budesonide- 2020-0 Yes [id number] 2{puff} Inhale 2 [facility] formoteroL 2-14 Puffs 2 ity of 160-4.5 00:00: (two) [place] mcg/actuati 00 times Medical on inhaler daily. Branch indomethaci 2020-0 Yes [id number] 50mg Take 1 [facility] n 50 mg 2-14 capsule by ity of capsule 00:00: mouth 3 [place] 00 (three) Medical times Branch daily with meals. albuterol 2020-0 Yes [id number] 2{puff} Inhale 2 [facility] 90 2-14 Puffs ity of mcg/actuati 00:00: every 6 [place] as on inhaler 00 (six) Medical hours as Branch needed for Wheezing or Shortness of Breath. levETIRAcet 2020-0 Yes [id number] 500mg Take 1 [facility] am (KEPPRA) 2-14 tablet by ity of 500 mg 00:00: mouth 2 [place] tablet 00 (two) Medical times Branch daily. budesonide- 2020-0 Yes [id number] 2{puff} Inhale 2 [facility] formoteroL 2-14 Puffs 2 ity of 160-4.5 00:00: (two) [place] mcg/actuati 00 times Medical on inhaler daily. Branch indomethaci 2020-0 Yes [id number] 50mg Take 1 [facility] n 50 mg 2-14 capsule by ity of capsule 00:00: mouth 3 [place] 00 (three) Medical times Branch daily with meals. albuterol 2020-0 Yes [id number] 2{puff} Inhale 2 [facility] 90 2-14 Puffs ity of mcg/actuati 00:00: every 6 [place] as on inhaler 00 (six) Medical hours as Branch needed for Wheezing or Shortness of Breath. levETIRAcet 2020-0 Yes [id number] 500mg Take 1 [facility] am (KEPPRA) 2-14 tablet by ity of 500 mg 00:00: mouth 2 [place] tablet 00 (two) Medical times Branch daily. budesonide- 2020-0 Yes [id number] 2{puff} Inhale 2 [facility] formoteroL 2-14 Puffs 2 ity of 160-4.5 00:00: (two) [place] mcg/actuati 00 times Medical on inhaler daily. Branch indomethaci 2020-0 Yes [id number] 50mg Take 1 [facility] n 50 mg 2-14 capsule by ity of capsule 00:00: mouth 3 [place] 00 (three) Medical times Branch daily with meals. albuterol 2020-0 Yes [id number] 2{puff} Inhale 2 [facility] 90 2-14 Puffs ity of mcg/actuati 00:00: every 6 [place] as on inhaler 00 (six) Medical hours as Branch needed for Wheezing or Shortness of Breath. levETIRAcet 2020-0 Yes [id number] 500mg Take 1 [facility] am (KEPPRA) 2-14 tablet by ity of 500 mg 00:00: mouth 2 [place] tablet 00 (two) Medical times Branch daily. budesonide- 2020-0 Yes [id number] 2{puff} Inhale 2 [facility] formoteroL 2-14 Puffs 2 ity of 160-4.5 00:00: (two) [place] mcg/actuati 00 times Medical on inhaler daily. Branch indomethaci 2020-0 Yes [id number] 50mg Take 1 [facility] n 50 mg 2-14 capsule by ity of capsule 00:00: mouth 3 00 (three) Medical times Branch daily with meals. albuterol 2020-0 Yes [id number] 2{puff} Inhale 2 [facility] 90 2-14 Puffs ity of mcg/actuati 00:00: every 6 [place] as on inhaler 00 (six) Medical hours as Branch needed for Wheezing or Shortness of Breath. levETIRAcet 2020-0 Yes [id number] 500mg Take 1 [facility] am (KEPPRA) 2-14 tablet by ity of 500 mg 00:00: mouth 2 [place] tablet 00 (two) Medical times Branch daily. budesonide- 2020-0 Yes [id number] 2{puff} Inhale 2 [facility] formoteroL 2-14 Puffs 2 ity of 160-4.5 00:00: (two) [place] mcg/actuati 00 times Medical on inhaler daily. Branch indomethaci 2020-0 Yes [id number] 50mg Take 1 [facility] n 50 mg 2-14 capsule by ity of capsule 00:00: mouth 3 [place] 00 (three) Medical times Branch daily with meals. albuterol 2020-0 Yes [id number] 2{puff} Inhale 2 [facility] 90 2-14 Puffs ity of mcg/actuati 00:00: every 6 [place] as on inhaler 00 (six) Medical hours as Branch needed for Wheezing or Shortness of Breath. levETIRAcet 2020-0 Yes [id number] 500mg Take 1 [facility] am (KEPPRA) 2-14 tablet by ity of 500 mg 00:00: mouth 2 [place] tablet 00 (two) Medical times Branch daily. budesonide- 2020-0 Yes [id number] 2{puff} Inhale 2 [facility] formoteroL 2-14 Puffs 2 ity of 160-4.5 00:00: (two) [place] mcg/actuati 00 times Medical on inhaler daily. Branch indomethaci 2020-0 Yes [id number] 50mg Take 1 [facility] n 50 mg 2-14 capsule by ity of capsule 00:00: mouth 3 [place] 00 (three) Medical times Branch daily with meals. albuterol 2020-0 Yes [id number] 2{puff} Inhale 2 [facility] 90 2-14 Puffs ity of mcg/actuati 00:00: every 6 [place] as on inhaler 00 (six) Medical hours as Branch needed for Wheezing or Shortness of Breath. levETIRAcet 2020-0 Yes [id number] 500mg Take 1 [facility] am (KEPPRA) 2-14 tablet by ity of 500 mg 00:00: mouth 2 [place] tablet 00 (two) Medical times Branch daily. budesonide- 2020-0 Yes [id number] 2{puff} Inhale 2 [facility] formoteroL 2-14 Puffs 2 ity of 160-4.5 00:00: (two) [place] mcg/actuati 00 times Medical on inhaler daily. Branch indomethaci 2020-0 Yes [id number] 50mg Take 1 [facility] n 50 mg 2-14 capsule by ity of capsule 00:00: mouth 3 [place] 00 (three) Medical times Branch daily with meals. albuterol 2020-0 Yes [id number] 2{puff} Inhale 2 [facility] 90 2-14 Puffs ity of mcg/actuati 00:00: every 6 [place] as on inhaler 00 (six) Medical hours as Branch needed for Wheezing or Shortness of Breath. levETIRAcet 2020-0 Yes [id number] 500mg Take 1 [facility] am (KEPPRA) 2-14 tablet by ity of 500 mg 00:00: mouth 2 [place] tablet 00 (two) Medical times Branch daily. budesonide- 2020-0 Yes [id number] 2{puff} Inhale 2 [facility] formoteroL 2-14 Puffs 2 ity of 160-4.5 00:00: (two) [place] mcg/actuati 00 times Medical on inhaler daily. Branch indomethaci 2020-0 Yes [id number] 50mg Take 1 [facility] n 50 mg 2-14 capsule by ity of capsule 00:00: mouth 3 [place] 00 (three) Medical times Branch daily with meals. albuterol 2020-0 Yes [id number] 2{puff} Inhale 2 [facility] 90 2-14 Puffs ity of mcg/actuati 00:00: every 6 [place] as on inhaler 00 (six) Medical hours as Branch needed for Wheezing or Shortness of Breath. levETIRAcet 2020-0 Yes [id number] 500mg Take 1 [facility] am (KEPPRA) 2-14 tablet by ity of 500 mg 00:00: mouth 2 [place] tablet 00 (two) Medical times Branch daily. budesonide- 2020-0 Yes [id number] 2{puff} Inhale 2 [facility] formoteroL 2-14 Puffs 2 ity of 160-4.5 00:00: (two) [place] mcg/actuati 00 times Medical on inhaler daily. Branch indomethaci 2020-0 Yes [id number] 50mg Take 1 [facility] n 50 mg 2-14 capsule by ity of capsule 00:00: mouth 3 [place] 00 (three) Medical times Branch daily with meals. albuterol 2020-0 Yes [id number] 2{puff} Inhale 2 [facility] 90 2-14 Puffs ity of mcg/actuati 00:00: every 6 [place] as on inhaler 00 (six) Medical hours as Branch needed for Wheezing or Shortness of Breath. levETIRAcet 2020-0 Yes [id number] 500mg Take 1 [facility] am (KEPPRA) 2-14 tablet by ity of 500 mg 00:00: mouth 2 [place] tablet 00 (two) Medical times Branch daily. topiramate 2020-0 Yes [facility] 25 mg 1-28 ity of tablet 00:00: [place] [address] Medical Branch topiramate 2020-0 Yes [facility] 25 mg 1-28 ity of tablet 00:00: [place] [address] [facility] [place] topiramate 2020-0 Yes [facility] 25 mg 1-28 ity of tablet 00:00: [place] [address] Medical Branch topiramate 2020-0 Yes [facility] 25 mg 1-28 ity of tablet 00:00: [place] [address] Medical Branch topiramate 2020-0 Yes [facility] 25 mg 1-28 ity of tablet 00:00: [address] topiramate 2020-0 Yes [facility] 25 mg 1-28 ity of tablet 00:00: [place] [address] Medical [place] topiramate 2020-0 Yes [facility] 25 mg 1-28 ity of tablet 00:00: [address] topiramate 2020-0 Yes [facility] 25 mg 1-28 ity of tablet 00:00: [place] [address] Medical Branch topiramate 2020-0 Yes [facility] 25 mg 1-28 ity of tablet 00:00: [place] [address] Medical Branch topiramate 2020-0 Yes [facility] 25 mg 1-28 ity of tablet 00:00: [address] Branch topiramate 2020-0 Yes [facility] 25 mg 1-28 ity of tablet 00:00: [address] topiramate 2020-0 Yes [facility] 25 mg 1-28 ity of tablet 00:00: [address] topiramate 2020-0 Yes [facility] 25 mg 1-28 ity of tablet 00:00: [address] Branch topiramate 2020-0 Yes [facility] 25 mg 1-28 ity of tablet 00:00: [address] topiramate 2020-0 Yes [facility] 25 mg 1-28 ity of tablet 00:00: [address] topiramate 2020-0 Yes [facility] 25 mg 1-28 ity of tablet 00:00: [address] topiramate 2020-0 Yes [facility] 25 mg 1-28 ity of tablet 00:00: [address] topiramate 2020-0 Yes [facility] 25 mg 1-28 ity of tablet 00:00: [address] topiramate 2020-0 Yes [facility] 25 mg 1-28 ity of tablet 00:00: [place] [address] Medical Branch topiramate 2020-0 Yes [facility] 25 mg 1-28 ity of tablet 00:00: [place] [address] Medical Branch topiramate 2020-0 Yes [facility] 25 mg 1-28 ity of tablet 00:00: [place] [address] Medical Branch topiramate 2020-0 Yes [facility] 25 mg 1-28 ity of tablet 00:00: [place] [address] Medical Branch topiramate 2020-0 Yes [facility] 25 mg 1-28 ity of tablet 00:00: [place] [address] Medical Branch topiramate 2020-0 Yes [facility] 25 mg 1-28 ity of tablet 00:00: [place] [address] Medical Branch topiramate 2020-0 Yes [facility] 25 mg 1-28 ity of tablet 00:00: [place] [address] Medical Branch topiramate 2020-0 Yes [facility] 25 mg 1-28 ity of tablet 00:00: [place] [address] Medical Branch topiramate 2020-0 Yes [facility] 25 mg 1-28 ity of tablet 00:00: [place] [address] Medical Branch topiramate 2020-0 Yes [facility] 25 mg 1-28 ity of tablet 00:00: [place] [address] Medical Branch topiramate 2020-0 Yes [facility] 25 mg 1-28 ity of tablet 00:00: [place] [address] Medical Branch topiramate 2020-0 Yes [facility] 25 mg 1-28 ity of tablet 00:00: [place] [address] Medical Branch topiramate 2020-0 Yes [facility] 25 mg 1-28 ity of tablet 00:00: [place] [address] Medical Branch topiramate 2020-0 Yes [facility] 25 mg 1-28 ity of tablet 00:00: [place] [address] Medical Branch carBAMazepi 2020-0 Yes Univer s ne 200 mg 1-20 ity of tablet 00:00: [place] [address] Medical Branch carBAMazepi 2020-0 Yes Univer s ne 200 mg 1-20 ity of tablet 00:00: [place] [address] Medical Branch carBAMazepi 2020-0 Yes Univer s ne 200 mg 1-20 ity of tablet 00:00: [place] [address] Medical Branch carBAMazepi 2020-0 Yes Univer s ne 200 mg 1-20 ity of tablet 00:00: [place] [address] Medical Branch carBAMazepi 2020-0 Yes Univer s ne 200 mg 1-20 ity of tablet 00:00: [place] [address] Medical Branch carBAMazepi 2020-0 Yes Univer s ne 200 mg 1-20 ity of tablet 00:00: [place] 00 Medical Branch carBAMazepi 2020-0 Yes Univer s ne 200 mg 1-20 ity of tablet 00:00: [place] 00 Medical Branch carBAMazepi 2020-0 Yes Univer s ne 200 mg 1-20 ity of tablet 00:00: [place] 00 Medical Branch carBAMazepi 2020-0 Yes Univer s ne 200 mg 1-20 ity of tablet 00:00: [place] 00 Medical Branch carBAMazepi 2020-0 Yes Univer s ne 200 mg 1-20 ity of tablet 00:00: [place] [address] Medical Branch carBAMazepi 2020-0 Yes Univer s ne 200 mg 1-20 ity of tablet 00:00: [place] [address] Medical Branch carBAMazepi 2020-0 Yes Univer s ne 200 mg 1-20 ity of tablet 00:00: [place] [address] Medical Branch carBAMazepi 2020-0 Yes Univer s ne 200 mg 1-20 ity of tablet 00:00: [place] [address] Medical Branch carBAMazepi 2020-0 Yes Univer s ne 200 mg 1-20 ity of tablet 00:00: [place] [address] Medical Branch carBAMazepi 2020-0 Yes Univer s ne 200 mg 1-20 ity of tablet 00:00: [place] [address] Medical Branch carBAMazepi 2020-0 Yes Univer s ne 200 mg 1-20 ity of tablet 00:00: [place] [address] Medical Branch carBAMazepi 2020-0 Yes Univer s ne 200 mg 1-20 ity of tablet 00:00: [place] [address] Medical Branch carBAMazepi 2020-0 Yes Univer s ne 200 mg 1-20 ity of tablet 00:00: [place] [address] Medical Branch carBAMazepi 2020-0 Yes Univer s ne 200 mg 1-20 ity of tablet 00:00: [place] [address] Medical Branch carBAMazepi 2020-0 Yes Univer s ne 200 mg 1-20 ity of tablet 00:00: [place] [address] Medical Branch carBAMazepi 2020-0 Yes Univer s ne 200 mg 1-20 ity of tablet 00:00: [place] [address] Medical Branch carBAMazepi 2020-0 Yes Univer s ne 200 mg 1-20 ity of tablet 00:00: [place] [address] Medical Branch carBAMazepi 2020-0 Yes Univer s ne 200 mg 1-20 ity of tablet 00:00: [place] [address] Medical Branch carBAMazepi 2020-0 Yes Univer s ne 200 mg 1-20 ity of tablet 00:00: [address] carBAMazepi 2020-0 Yes Univer s ne 200 mg 1-20 ity of tablet 00:00: [address] carBAMazepi 2020-0 Yes Univer s ne 200 mg 1-20 ity of tablet 00:00: [address] carBAMazepi 2020-0 Yes Univer s ne 200 mg 1-20 ity of tablet 00:00: [address] carBAMazepi 2020-0 Yes Univer s ne 200 mg 1-20 ity of tablet 00:00: [address] carBAMazepi 2020-0 Yes Univer s ne 200 mg 1-20 ity of tablet 00:00: [address] carBAMazepi 2020-0 Yes Univer s ne 200 mg 1-20 ity of tablet 00:00: [address] carBAMazepi 2020-0 Yes Univer s ne 200 mg 1-20 ity of tablet 00:00: [address] carBAMazepi 2020-0 Yes Univer s ne 200 mg 1-20 ity of tablet 00:00: [address] [place] No [place] [...] Immunizations Ordered Filled Immunization Date Status Comments [facility] e Immunization Name Name SARS-COV-2 COVID-19 2022-04-12 Completed Unive rsity of VACCINE - (MODERNA) 00:00:00 [facility] SARS-COV-2 COVID-19 2022-04-12 Completed Unive rsity of VACCINE - (MODERNA) 00:00:00 [facility] SARS-COV-2 COVID-19 2022-04-12 Completed Unive rsity of VACCINE - (MODERNA) 00:00:[address] [facility] Branch SARS-COV-2 COVID-19 2022-04-12 Completed Unive rsity of VACCINE - (MODERNA) 00:00:00 [facility] SARS-COV-2 COVID-19 2022-04-12 Completed Unive rsity of VACCINE - (MODERNA) 00:00:[address] [facility] Branch SARS-COV-2 COVID-19 2022-04-12 Completed Unive rsity of VACCINE - (MODERNA) 00:00:00 [facility] SARS-COV-2 COVID-19 2022-04-12 Completed Unive rsity of VACCINE - (MODERNA) 00:00:00 [facility] SARS-COV-2 COVID-19 2022-04-12 Completed Unive rsity of VACCINE - (MODERNA) 00:00:00 [facility] SARS-COV-2 COVID-19 2022-04-12 Completed Unive rsity of VACCINE - (MODERNA) 00:00:00 [facility] SARS-COV-2 COVID-19 2022-04-12 Completed Unive rsity of VACCINE - (MODERNA) 00:00:00 [facility] SARS-COV-2 COVID-19 2022-04-12 Completed Unive rsity of VACCINE - (MODERNA) 00:00:00 [facility] SARS-COV-2 COVID-19 2022-04-12 Completed Unive rsity of VACCINE - (MODERNA) 00:00:[address] [facility] Branch SARS-COV-2 COVID-19 2022-04-12 Completed Unive rsity of VACCINE - (MODERNA) 00:00:00 [facility] SARS-COV-2 COVID-19 2022-04-12 Completed Unive rsity of VACCINE - (MODERNA) 00:00:[address] [facility] Branch SARS-COV-2 COVID-19 2022-04-12 Completed Unive rsity of VACCINE - (MODERNA) 00:00:00 [facility] SARS-COV-2 COVID-19 2022-04-12 Completed Unive rsity of VACCINE - (MODERNA) 00:00:00 [facility] SARS-COV-2 COVID-19 2022-04-12 Completed Unive rsity of VACCINE - (MODERNA) 00:00:00 [place] [facility] SARS-COV-2 COVID-19 2021-10-12 Completed Unive rsity [...] of MODERNA 12+ YRS 00:00:00 [place] [facility] ical VACCINE Branch SARS-COV-2 COVID-19 2021-09-14 Completed Unive rsity of MODERNA 12+ YRS 00:00:00 [place] [facility] ical VACCINE Branch SARS-COV-2 COVID-19 2021-09-14 Completed Unive rsity of MODERNA 12+ YRS 00:00:00 [place] [facility] ical VACCINE Branch SARS-COV-2 COVID-19 2021-09-14 Completed Unive rsity of MODERNA 12+ YRS 00:00:00 [place] [facility] ical VACCINE Branch SARS-COV-2 COVID-19 2021-09-14 Completed Unive rsity of MODERNA 12+ YRS 00:00:00 [place] [facility] ical VACCINE Branch SARS-COV-2 COVID-19 2021-09-14 Completed Unive rsity of MODERNA 12+ YRS 00:00:00 [place] [facility] ical VACCINE Branch SARS-COV-2 COVID-19 2021-09-14 Completed Unive rsity of MODERNA 12+ YRS 00:00:00 [place] [facility] ical VACCINE Branch SARS-COV-2 COVID-19 2021-09-14 Completed Unive rsity of MODERNA 12+ YRS 00:00:00 [facility] Influenza Virus 2018-12-16 Completed Universit y of Vaccine Quad IM 3+ 00:00:00 [facility] Influenza Virus 2018-12-16 Completed Universit y of Vaccine Quad IM 3+ 00:00:00 [facility] Influenza Virus 2018-12-16 Completed Universit y of Vaccine Quad IM 3+ 00:00:00 [facility] Influenza Virus 2018-12-16 Completed Universit y of Vaccine Quad IM 3+ 00:00:00 [facility] Influenza Virus 2018-12-16 Completed Universit y of Vaccine Quad IM 3+ 00:00:00 [facility] Influenza Virus 2018-12-16 Completed Universit y of Vaccine Quad IM 3+ 00:00:00 [facility] Influenza Virus 2018-12-16 Completed Universit y of Vaccine Quad IM 3+ 00:00:00 [facility] Influenza Virus 2018-12-16 Completed Universit y of Vaccine Quad IM 3+ 00:00:00 [facility] Influenza Virus 2018-12-16 Completed Universit y of Vaccine Quad IM 3+ 00:00:00 [facility] Influenza Virus 2018-12-16 Completed Universit y of Vaccine Quad IM 3+ 00:00:00 [facility] Influenza Virus 2018-12-16 Completed Universit y of Vaccine Quad IM 3+ 00:00:00 [facility] Influenza Virus 2018-12-16 Completed Universit y of Vaccine Quad IM 3+ 00:00:00 [facility] Influenza Virus 2018-12-16 Completed Universit y of Vaccine Quad IM 3+ 00:00:00 [facility] Influenza Virus 2018-12-16 Completed Universit y of Vaccine Quad IM 3+ 00:00:00 [facility] Influenza Virus 2018-12-16 Completed Universit y of Vaccine Quad IM 3+ 00:00:00 [facility] Influenza Virus 2018-12-16 Completed Universit y of Vaccine Quad IM 3+ 00:00:00 [facility] Influenza Virus 2018-12-16 Completed Universit y of Vaccine Quad IM 3+ 00:00:00 [facility] Influenza Virus 2018-12-16 Completed Universit y of Vaccine Quad IM 3+ 00:00:00 [facility] Influenza Virus 2018-12-16 Completed Universit y of Vaccine Quad IM 3+ 00:00:00 [facility] Influenza Virus 2018-12-16 Completed Universit y of Vaccine Quad IM 3+ 00:00:00 [facility] Influenza Virus 2018-12-16 Completed Universit y of Vaccine Quad IM 3+ 00:00:00 [facility] Influenza Virus 2018-12-16 Completed Universit y of Vaccine Quad IM 3+ 00:00:00 [facility] Influenza Virus 2018-12-16 Completed Universit y of Vaccine Quad IM 3+ 00:00:00 [facility] Influenza Virus 2018-12-16 Completed Universit y of Vaccine Quad IM 3+ 00:00:00 [facility] Influenza Virus 2018-12-16 Completed Universit y of Vaccine Quad IM 3+ 00:00:00 [facility] Influenza Virus 2018-12-16 Completed Universit y of Vaccine Quad IM 3+ 00:00:00 [facility] Branch Influenza Virus 2018-12-16 Completed Universit y of Vaccine Quad IM 3+ 00:00:00 [facility] Influenza Virus 2018-12-16 Completed Universit y of Vaccine Quad IM 3+ 00:00:00 [facility] Influenza Virus 2018-12-16 Completed Universit y of Vaccine Quad IM 3+ 00:00:00 [facility] Influenza Virus 2018-12-16 Completed Universit y of Vaccine Quad IM 3+ 00:00:00 [facility] Influenza Virus 2018-12-16 Completed Universit y of Vaccine Quad IM 3+ 00:00:00 [facility] Influenza Virus 2018-12-16 Completed Universit y of Vaccine Quad IM 3+ 00:00:00 [facility] Vital Signs Vital Name Observation Time Observation Value Comments Source Systolic blood 2022-12-29 14:32:00 116 mm[Hg] Univer sity of pressure [facility] Diastolic blood 2022-12-29 14:32:00 80 mm[Hg] Unive rsity of pressure [facility] Heart rate 2022-12-29 14:32:00 82 /min Universi ty [facility] Body temperature 2022-12-29 14:32:00 36.72 Sury [facility] Respiratory rate 2022-12-29 14:32:00 18 /min [facility] Body height 2022-12-29 14:32:00 162.6 cm Universi ty [facility] Body weight 2022-12-29 14:32:00 109.226 kg Universi ty [facility] BMI 2022-12-29 14:32:00 41.33 kg/m2 Universi ty [facility] Systolic blood 2022-11-15 22:35:00 115 mm[Hg] Univer sity of pressure [facility] Diastolic blood 2022-11-15 22:35:00 77 mm[Hg] Unive rsity of pressure [facility] Heart rate 2022-11-15 22:35:00 74 /min Universi ty [facility] Body temperature 2022-11-15 22:35:00 36.67 Sury [facility] Respiratory rate 2022-11-15 22:35:00 18 /min Univ [facility] Body height 2022-11-15 22:35:00 162.6 cm [facility] Body weight 2022-11-15 22:35:00 111.041 kg [facility] BMI 2022-11-15 22:35:00 42.02 kg/m2 [facility] Systolic blood 2022-10-31 21:55:00 120 mm[Hg] Univer sity of [facility] Diastolic blood 2022-10-31 21:55:00 82 mm[Hg] Unive rsity of pressure [facility] Heart rate 2022-10-31 21:55:00 90 /min Universi ty of [facility] Respiratory rate 2022-10-31 21:55:00 18 /min Univ ersity of [facility] Body height 2022-10-31 21:55:00 162.6 cm [facility] [place] [facility] Body weight 2022-10-31 21:55:00 111.131 kg [facility] BMI 2022-10-31 21:55:00 42.05 kg/m2 [facility] Systolic blood 2022-10-18 15:58:00 110 mm[Hg] Univer sity of [facility] Diastolic blood 2022-10-18 15:58:00 75 mm[Hg] Unive rsity of pressure [facility] Heart rate 2022-10-18 15:58:00 92 /min [facility] Body temperature 2022-10-18 15:58:00 36.89 Sury [facility] Respiratory rate 2022-10-18 15:58:00 16 /min Univ ersity of [facility] Body height 2022-10-18 15:58:00 162.6 cm [facility] Body weight 2022-10-18 15:58:00 110.678 kg [facility] BMI 2022-10-18 15:58:00 41.88 kg/m2 Universi ty of [facility] Oxygen saturation in 2022-10-18 15:58:00 97 /min [facility] Arterial blood by [place] [facility] oxim[facility] Branch HEIGHT 2021-12-17 23:33:00 162.6 cm WEIGHT 2021-12-17 21:14:00 104.781 kg HEIGHT 2021-12-17 23:33:00 162.6 cm WEIGHT 2021-12-17 21:14:00 104.781 kg Systolic blood 2021-12-12 22:09:00 119 mm[Hg] Univer sity of pressure [facility] Diastolic blood 2021-12-12 22:09:00 76 mm[Hg] Unive rsity of [facility] Heart rate 2021-12-12 22:09:00 106 /min Universi ty [facility] Body temperature 2021-12-12 22:09:00 36.83 Sury [facility] Body height 2021-12-12 22:09:00 162.6 cm Universi ty [facility] Body weight 2021-12-12 22:09:00 105.96 kg Universi [facility] BMI 2021-12-12 22:09:00 40.10 kg/m2 [facility] Oxygen saturation in 2021-12-12 22:09:00 98 /min [facility] blood by [facility] Pulse oximetry Branch BP Diastolic 2020-04-13 00:00:00 83 mm[Hg] [facility] Height 2020-04-13 00:00:00 64 [in_i] [facility] BMI (Body Mass 2020-04-13 00:00:00 36.5 kg/m2 [facility] maintenance person Medical Index) Group BP Systolic 2020-04-13 00:00:00 118 mm[Hg] [facility] Body Weight 2020-04-13 00:00:00 212.8 [lb_av] [facility] Systolic blood 2021-12-18 12:35:00 120 mm[Hg] [facility] Diastolic blood 2021-12-18 12:35:00 90 mm[Hg] [facility] S [facility] Heart rate 2021-12-18 12:35:00 79 /min [facility] Body temperature 2021-12-18 12:35:00 36.56 Sury [facility] Respiratory rate 2021-12-18 12:35:00 18 /min [facility] Oxygen saturation in 2021-12-18 12:35:00 96 /min [facility] Arterial blood by Medical Ce nter Pulse oximetry Body height 2021-12-17 23:33:00 162.6 cm [facility] Body weight 2021-12-17 21:14:00 104.781 kg [facility] BMI 2021-12-17 21:14:00 39.65 kg/m2 [facility] Procedures Procedure Date / Time Performing Clinician Source Performed US PELVIS COMPLETE WITH 2023-02-02 16:35:18 Jose Angel Peralta [facility] 2022-12-29 15:22:00 Dulce Weeks [facility] PATIENT FINANCIAL 2022-12-29 14:22:26 Doctor Quesada, [facility] POLICY [facility] GC & CHLAMYDIA AMPLIFIED 2022-11-15 22:38:00 Jose Angel Peralta [facility] TRICHOMONAS AMPLIFIED 2022-11-15 22:38:00 Jose Angel Peralta [facility] CONSENT FOR CONTRACEPTION 2022-11-15 06:01:00 Doctor Quesada [facility] Name Medical S[place] US PELVIS COMPLETE WITH 2022-10-31 00:48:02 Jose Angel Peralta [facility] NOTICE OF PRIVACY 2022-10-31 00:03:57 Doctor Quesada, [facility] PRACTICES [facility] CONSENT/REFUSAL FOR 2022-10-31 00:03:31 Doctor Quesada [facility] DIAGNOSIS AND TREATMENT [facility] ASSIGNMENT OF BENEFITS 2022-10-31 00:03:08 Doctor Quesada [facility] Name Medical Branch POCT TEST 2022-10-31 00:00:00 Jose Angel Peralta [facility] INSURANCE CORRESPONDENCE 2022-10-25 06:01:00 Doctor Quesada [facility] Name Medical [place] CBC WITH DIFF 2022-10-18 17:18:00 Tritschler, Cheryal [facility] ASSIGNMENT OF BENEFITS 2022-10-18 15:41:13 Doctor Unassigned, [facility] URINALYSIS W/ REFLEX 2021-12-18 10:11:00 Marylu Tiwari [facility] URINE CULTURE Center BLOOD CULTURE 2021-12-18 03:39:00 Chad Dickey [facility] BASIC METABOLIC PANEL 2021-12-18 03:39:[address] [facility] CBC W/PLT COUNT & AUTO 2021-12-18 03:39:00 [facility] DIFFERENTIAL Center CBC W/PLT COUNT & AUTO 2021-12-18 03:39:00 [facility] DIFFERENTIAL Center BLOOD CULTURE 2021-12-17 23:54:00 [facility] EKG-SCANNED 2021-12-17 00:00:00 Provider, Jasbir [facility] Medical Scanning [place] Plan of Care Planned Activity Planned Date Details Comments Source Future Scheduled 2023-06-29 Influenza Vaccine (#1) [facility] Test 00:00:00 [code = Influenza Medical Ce nter Vaccine (#1)] Future Scheduled 2023-06-[address] [...] Test 00:00:00 (12+) [code = DEPRESSION [facility] SCREENING (12+)] Future Scheduled 2022-10-29 DEPRESSION [...] Test 00:00:00 (12+) [code = DEPRESSION [facility] SCREENING (12+)] Diagnostic Test 2020-04-13 CBC w/ auto diff [code = [facility] Pending 00:00:00 CBC w/ auto diff] Group Diagnostic Test 2020-04-13 CMP, serum or plasma [facility] Pending 00:00:00 [code = CMP, serum or Group plasma] Diagnostic Test 2020-04-13 lipid panel, serum [code [facility] Pending 00:00:00 = lipid panel, serum] Group Diagnostic Test 2020-04-13 HBsAg (hepatitis B [facility] maintenance person Medical Pending 00:00:00 surface Ag), serum [code Deb up = HBsAg (hepatitis B surface Ag), serum] Diagnostic Test 2020-04-13 HIV (1+2) Ab screen, [facility] Pending 00:00:00 serum [code = HIV (1+2) Grou p Ab screen, serum] Diagnostic Test 2020-04-13 RPR (rapid plasma [facility] Pending 00:00:00 reagin), serum [code = Group RPR (rapid plasma reagin), serum] Diagnostic Test 2020-04-13 TSH + free T4, serum [facility] Pending 00:00:00 [code = TSH + free T4, Group serum] Diagnostic Test 2020-04-13 pap, LB + HPV [code = [facility] Pending 00:00:00 pap, LB + HPV] Group Diagnostic Test 2020-04-13 CT + NG + TV, DNA, [facility] maintenance person Medical Pending 00:00:00 urine/swab [code = CT + Grou p NG + TV, DNA, urine/swab] Future Scheduled 2011 Screening for malignant [facility] Test 00:00:00 neoplasm of cervix Medical C enter (procedure) [code = 816967522] Future Scheduled 2011 Screening for malignant [facility] Test 00:00:00 neoplasm of cervix Medical C enter (procedure) [code = 828289849] Future Scheduled 2011 Screening for malignant [facility] Test 00:00:00 neoplasm of cervix Medical C enter (procedure) [code = 411913233] Future Scheduled 2011 Screening for malignant [facility] Test 00:00:00 neoplasm of cervix Medical C enter (procedure) [code = 667210818] Future Scheduled 2011 Screening for malignant [facility] Test 00:00:00 neoplasm of cervix Medical C enter (procedure) [code = 166434803] Future Scheduled 2011 Screening for malignant [facility] Test 00:00:00 neoplasm of cervix Medical C enter (procedure) [code = 853232357] Future Scheduled 2010 Lipid panel (procedure) [facility] Test 00:00:00 [code = 67058342] Medical Ce nter Future Scheduled 2010 Lipid panel (procedure) [facility] Test 00:00:00 [code = 32800040] Medical Ce nter Future Scheduled 2010 Lipid panel (procedure) [facility] Test 00:00:00 [code = 73722829] Medical Ce nter Future Scheduled 2010 Lipid panel (procedure) [facility] Test 00:00:00 [code = 44064070] Medical Ce nter Future Scheduled 2010 Lipid panel (procedure) [facility] Test 00:00:00 [code = 93900188] Medical Ce nter Future Scheduled 2010 Lipid panel (procedure) [facility] Test 00:00:00 [code = 01895570] Medical Ce nter Future Scheduled 2009 DTAP/TDAP/TD [...] screening Medical Cent er (procedure) [code = 348620761] Future Scheduled [address] [facility] Test 00:00:00 virus screening Medical Cent er (procedure) [code = 767765114] Future Scheduled [address] [...] Type Clinicians Facility Department ID 2021-08-30 Emergency [facility] [id number] Univers 00:49:50 ity [facility] 2023-02-02 2023-02-02 Outpatient R JOSE ANGEL PERALTA [facility] B [id number] [facility] 10:57:29 23:59:00 [facility] 2023-02-02 2023-02-02 [facility] 1.2.840.114 [id number] [facility] 10:57:29 23:59:00 Encounter Meredithshady WHALEY 350.1.13.10 [place] [phone] [facility] [address] 2023-01-08 2023-01-08 Telephone [facility] 1.2.690.096 [id number] Univers 00:00:00 00:00:00 Dulce WHALEY 350.1.13.10 [place] [id number] Oh dical NAL [address] [employer] 2023-01-02 2023-01-[address] [facility] [address] 1.2.840.114 [id number] Univers 00:00:00 00:00:00 Secure kim Zeldasalma WHALEY 350.1.13.10 [place] [phone] Oh dical NAL [address] [employer] 2023-01-02 2023-01-02 [facility]phone [facility] 1.2.840.114 [id number] Univers 00:00:00 00:00:00 Dulce SCRUGGS 350.1.13.10 i ty [place] [id number] [address] 2022-12-29 2022-12-29 Outpatient R [facility] [id number] Univers 09:00:00 09:23:08 DULCE ity of [facility] 2022-12-29 2022-12-29 Office [facility] 1.2.840.114 [id number] Univers 09:00:00 09:23:08 Visit Dulce Graves JOVANA 350.1.13.10 [place] [id number] [address] 2022-12-29 2022-12-29 Orders Doctor AMBREEN 1.2.840.114 [id number] Univers 00:00:00 00:00:00 Only Unassigned, DONY 350.1.13.10 ity of [place] [facility] 4.2.7.2.686 [place]an as [id number] [address] 2022-12-29 2022-12-29 Letter [facility] 1.2.840.114 [id number] Univers 00:00:00 00:00:00 (Out) Dulce Graves JOVANA 350.1.13.10 [place] [id number] [address] 2022-12-28 2022-12-28 Telephone [facility] 1.2.840.11 [id number] Univers 00:00:00 00:00:00 Jose Angel SCRUGGS 350.1.13.10 it y [place] [id number] [address] 2022-12-28 2022-12-28 Telephone [facility] 1.2.840.11 [id number] Univers 00:00:00 00:00:00 Jose Angel SCRUGGS 350.1.13.10 it [place] [id number] [facility] [address] 2022-11-15 2022-11-15 Office Fabian [facility] 1.2.840.114 [id number] Univers 15:00:00 17:23:28 Visit Jose Angel SCRUGGS 350.1.13.10 it [place] [id number] [facility] [address] 2022-11-15 2022-11-15 Outpatient R JOSE ANGEL PERALTA [facility] B [id number] Univers 15:00:00 17:23:28 JOSE ANGEL PERALTA [facility] 2022-11-15 2022-11-15 Orders Doctor AMBREEN 1.2.840.114 [id number] Univers 00:00:00 00:00:00 Only Unassigned, DONY 350.1.13.10 ity of [place] [facility] 4.2.7.2.686 Elan as [id number] [facility] 009 Branch 2022-11-08 2022-11-08 Pre Visit Tiarra DENNIS 1.2.172.304 [id number] Univers 00:00:00 00:00:00 Outreach Khloeher SIMMS 350.1.13.10 i [place] [id number] [facility] 086 Branch 2022-10-31 2022-10-31 Office [facility] 1.2.840.114 [id number] Univers 16:30:00 16:30:00 Visit Jose Angel SHEBA 350.1.13.10 it y [place] [id number] [facility] [address] 2022-10-31 2022-10-31 Outpatient R JOSE ANGEL PERALTA [facility] B [id number] Univers 16:30:00 16:13:04 JOSE ANGEL PERALTA [facility] 2022-10-30 2022-10-30 Outpatient R JOSE ANGEL PERALTA [facility] B [id number] Univers 18:05:11 23:59:00 TRIJOSE ANGEL NIETO ity of [facility] 2022-10-30 2022-10-30 [facility] 1.2.840.114 [id number] Univers 18:05:11 23:59:00 Encounter Jose Angel WHALEY 350.1.13.10 ity of [place] 4.2.7.2.686 [facility] [id number] [facility] [address] 2022-10-27 2022-10-27 Telemedici Prisca Vilchis [facility] 1.2.8 40.114 [id number] Univers 10:30:00 10:30:00 ne Visit Cyrus Shultz [employer] 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 350.1.13.10 ity of [facility] 4.2.7.2.686 Elan as MATERNAL [id number] Med ical & CHILD [address] [place] [address] 2022-10-27 2022-10-27 Outpatient R CYRUS SHULTZ [facility] [id number] Univers 10:30:00 10:23:21 ity of [facility] 2022-10-25 2022-10-25 Telephone [facility] 1.2.840.11 [id number] Univers 00:00:00 00:00:00 Meredithshady SHEBA 350.1.13.10 it y of [place] 4.2.7.2.686 [id number] [address] 2022-10-25 2022-10-25 Orders Doctor AMBREEN 1.2.840.114 [id number] Univers 00:00:00 00:00:00 Only Unassigned, DONY 350.1.13.10 ity of [place] [facility] 4.2.7.2.686 Elan as [id number] [facility] [address] 2022-10-20 2022-10-20 Telephone [facility] 1.2.840.11 [id number] Univers 00:00:00 00:00:00 Jose Angel SCRUGGS 350.1.13.10 it [place] [id number] [facility] [address] 2022-10-18 2022-10-18 Debt Collection Specialist Valerie Guaman Lab Main [facility] 1.2.8 40.114 [id number] Univers 11:30:00 11:45:00 Visit Fabian Jose Angel WHALEY 350.1.13. 10 [place] [id number] Oh dical [facility] [address] [employer] 2022-10-18 2022-10-18 Outpatient R FABIAN JOSE ANGEL [facility] [id number] Univers 10:00:00 10:16:19 FABIAN JOSE ANGEL ity [facility] 2022-10-18 2022-10-18 Office Fabian [facility] 1.2.840.114 [id number] Univers 10:00:00 10:16:19 Visit Jose Angel SHEBA 350.1.13.10 it [place] [id number] [facility] 134 Branch 2022-10-18 2022-10-18 Orders Doctor AMBREEN 1.2.840.114 [id number] Univers 00:00:00 00:00:00 Only Unassigned, DONY 350.1.13.10 ity of [place] [facility] 4.2.7.2.686 [place] as [id number] [facility] 009 Branch 2022 2022 Outpatient DICLEMENTE_ GAURAV [facility] 9[address] [place] 00:00:00 00:00:00 NENITA Paula29 da [facility] 2021-12-22 2021-12-22 Outpatient ISHAN MARION [facility] [id number] Univers 08:30:00 08:30:00 ity of [facility] 2021-12-22 2021-12-22 Outpatient ISHAN MARION [facility] [id number] Univers 08:30:00 08:30:00 ity of [facility] 2021-12-21 2021-12-21 Outpatient Wendy [facility] [id number] Univers 15:00:00 15:00:00 ity [facility] 2021-12-17 2021-12-18 [facility] Brett Ortega [facility] [id number] 21:02:00 15:18:00 Encounter Edgardo Jacobsy [facility] 2021-12-17 2021-12-18 Inpatient BETHANY TIWARI, [facility] Neurology [id number] SLE 21:02:00 15:18:00 MARYLU 2021-12-18 2021-12-18 Travel [facility] [id number] [facility] 00:[facility] 00:[facility]00 [facility] 2021-12-14 2021-12-[address] [facility] 1.2.311.058 [id number] Univers 00:00:00 00:00:00 Nila HEALTH 350.1.13.10 it y of [place] 4.2.7.2.686 Elan as BARRON?BLEA [id number] [address] OFFICE [facility] 2021-12-13 2021-12-13 Telephone [facility] 1.2.082.421 [id number] Univers 00:00:00 00:00:00 Nila HEALTH 350.1.13.10 it y of [place] 4.2.7.2.686 Elan as BARRON?BLEA [id number] [address] OFFICE [facility] 2021-12-13 2021-12-13 Telephone [facility] 1.2.170.281 [id number] Univers 00:00:00 00:00:00 Nila HEALTH 350.1.13.10 it y of [place] 4.2.7.2.686 Elan as BARRON?BLEA [id number] [address] OFFICE [facility] 2021-12-13 2021-12-[address] [facility] 1.2.827.180 [id number] Univers 00:00:00 00:00:00 Nila HEALTH 350.1.13.10 it y of [place] 4.2.7.2.686 Elan as BARRON?BLEA [id number] [address] OFFICE [facility] 2021-12-12 2021-12-12 Outpatient R AMANDA [facility] [id number] Univers 16:00:00 16:51:41 NILA angulo [facility] 2021-12-12 2021-12-12 Office Amanda [facility] 1.2.840.114 [id number] Univers 16:00:00 16:51:41 Visit Nila [facility] 350.1.13.10 it y of [place] 4.2.7.2.686 Elan as BARRON?BLEA [id number] Oh zuleima SCOTT [address] [facility] OFFICE [facility] 2021-12-12 2021-12-12 Outpatient R AMANDA [facility] [id number] Univers 16:00:00 16:51:41 NILA angulo [facility] 2021-12-12 2021-12-12 Letter Amanda [facility] 1.2.840.114 [id number] Univers 00:00:00 00:00:00 (Out) Nila [facility] 350.1.13.10 it y of [place] 4.2.7.2.686 Elan as BARRON?BLEA [id number] Oh bharathimatthias [address] OFFICE [facility] 2021-10-12 2021-10-12 Outpatient Wendy FREEMAN [facility] [id number] Univers 09:10:00 09:10:00 ZELDA rigo [facility] 2021-10-12 2021-10-12 Outpatient Wendy REYNOSO [facility] [id number] Univers 09:00:00 09:00:00 AIDAN angulo [facility] 2021-10-12 2021-10-12 Imm/Inj Nurse, Adc Pob Immunization [facility] 1.2.840.114 [id number] Univers 09:00:00 09:00:00 Visit Aidan Reynoso 350.1.13 .10 ity [facility] [place].2.[place] [id number] Oh bharathimatthias [address] 2021-10-12 2021-10-12 Outpatient Wendy REYNOSO [facility] [id number] Univers 08:00:00 08:00:00 AIDAN angulo [facility] 2021-09-14 2021-09-14 Outpatient Wendy REYNOSO [facility] [id number] Univers 09:30:00 09:30:00 AIDAN ity of [facility] 2021-09-14 2021-09-14 Imm/Inj Nurse, Adc Pob Immunization [facility] 1.2.840.114 [id number] Univers 09:01:10 09:01:24 Visit Aidan Reynoso 350.1.13 .10 ity [facility] 4.[place] [id number] [facility] [address] [employer] 2021-08-20 2021-08-20 Refill Bakari [facility] 1.2.840.114 [id number] Univers 00:00:00 00:00:00 [facility] 350.1.13.10 it [facility] 4.2.7.2.686 Elan as BARRON?BLEA [id number] [facility] [address] [facility] OFFICE [facility] 2021-07-29 2021-07-29 Urgent Gisell Villegas [facility] 1.2.840.114 [id number] Univers 10:14:01 10:34:01 Care Unknown, [facility] 350.1.13.10 ity of [place] 4.2.7.2.686 Elan as Barron?Blea [id number] [address] Office [facility] 2021-07-29 2021-07-29 Outpatient R UNKNOWN, [facility] [id number] Univers 10:20:00 10:20:00 ATTENDING ity [facility] 2021-07-21 2021-07-21 Emergency Vanessa Eduardo [facility] 1.2.840.114 [id number] Univers 10:06:00 11:06:00 Josefina Whaley 350.1.13.10 i ty of [place] [id number] [facility] [address] 2021-07-19 2021-07-19 Orders Doctor CROOK 1.2.840.114 [id number] Univers 00:00:00 00:00:00 Only Unassigned, DONY 350.1.13.10 ity of [place] [facility] 4.2.7.2.686 Elan as [id number] [facility] [address] 2021-07-05 2021-07-05 Teddy Freeman [facility] 1.2.840.114 [id number] Univers 00:00:00 00:00:00 Zelda Whaley 350.1.13.10 [place] [id number] [facility] [address] [facility] 2021-06-02 2021-06-02 Laboratory Lab, [facility] Fam Pob I [facility] 1.2. 840.114 [id number] Univers 20:27:39 20:47:39 Only Ebrahim, [facility] 350.1.13.10 ity of [place] 4.2.7.2.686 [place] as Professio [phone] [facility] [address] 2021-06-02 2021-06-02 Laboratory Lab, [facility] 1.2.840.114 [id number] 20:27:39 20:47:39 Only Fam b I Health 350.1.13.10 [place] 4.2.7.2.686 Professio [id number] [place] [address] Office [facility] 2021-06-02 2021-06-02 Outpatient R BANDAR [facility] [id number] Univers 20:20:00 20:20:00 CEDRIC ity [facility] 2021-06-02 2021-06-02 Outpatient DICLEMENTE_ [facility] [address] [place] 11:05:00 11:05:00 NENITA Zaidi [facility] 2021-06-02 2021-06-02 Orders Doctor AMBREEN [id number] Univers 00:00:00 00:00:00 Only Unassigned, DONY [id number] ity of [place] [facility] [id number] Elan as [phone] [address] 2021-06-02 2021-06-[address] [facility] [id number] Univers 00:00:00 00:00:00 Zelda Whaley [id number] [id number] [phone] Me dical nal [address] [facility] 2021-06-02 2021-06-02 Orders Doctor AMBREEN 1.2.840.114 [id number] 00:00:00 00:00:00 Only Unassigned, DONY [id number] [place] [facility] [phone] [id number] 2021-06-02 2021-06-02 [facility]phone [facility] 1.2.840.114 [id number] 00:00:00 00:00:00 Zelda Whaley [id number] [place] [id number] Professio [phone] [address] 2021-01-18 2021-01-18 [facility] 1.2.840.114 [id number] Univers 00:00:00 00:00:00 Outreach Aidan PRIMARY [id number] i ty of [facility] [place] [phone] Oh dical [address] [place] [address] 2021-01-18 2021-01-18 [facility] 1.2.840.114 [id number] 00:00:00 00:00:00 Outreach Aidan PRIMARY [id number] Julio C CARE [id number] PAVILLION [id number] [id number] 2020-09-15 2020-09-15 [facility] [id number] [place] 02:40:00 02:40:00 1118 Medical Group 2020-05-24 2020-05-24 [id number] [facility] 08:40:00 08:40:00 ZELDA angulo [facility] 2020-04-14 2020-04-14 Outpatient [facility] [id number] [place] 05:40:00 05:40:00 0619 Medical Group 2020-04-13 2020-04-13 Outpatient [facility] [id number] [place] 07:38:00 07:38:00 0616 Medical Group 2020-04-13 2020-04-13 Maia PHILLIPS [place] - [id number] Chi baltazarvazquezwendy 00:00:00 00:00:00 Alex Cazares, Medical Medica brina STEINER: [address] [facility] [address], [place] [address] , Ph. [phone] 2020-01-23 2020-03-12 Telemedici [facility] 1.2.840.114 [id number] [facility] 11:11:01 16:10:25 ne Visit Matt Whaley [id number] ity [id number] [phone] Oh dical [address] 2020-01-23 2020-03-12 [facility] 1.2.840.114 [id number] 11:11: 16:10:25 ne Visit Matt Whaley [id number] [place] 4.2.7.2.686 Professio [phone] [address] 2020-02-23 2020-02-26 Outpatient BRIAN, SW MED [id number] [facility] 14:38:00 13:00:00 CYRUS 2020-02-22 2020-02-23 Inpatient U APOLINAR FB MED [id number] MHFB 19:57:00 13:45:00 [facility] 2020-01-30 2020-01-30 [facility] 1.2.840.114 [id number] [facility] 08:10:50 15:55:51 ne Visit Matt Whaley [id number] [place] [phone] Oh dical [address] 2020-01-30 2020-01-30 Outpatient R [facility] [id number] Univers 10:45:00 10:45:00 MATT angulo of [facility] 2020-01-27 2020-01-27 Telephone [facility] 1.2.840.114 [id number] [facility] 00:00:00 00:00:00 Matt Whaley [id number] i [id number] [phone] [address] 2020-01-27 2020-01-27 Telephone [facility] 1.2.840.114 [id number] Univers 00:00:00 00:00:00 Matt Whaley [id number] i [id number] [phone] [address] 2020-01-23 2020-01-23 [id number] Univers 13:15:00 13:15:00 MATT angulo [facility] 2020-01-23 2020-01-23 Telephone [facility] 1.2.840.114 [id number] Univers 00:00:00 00:00:00 Matt Whaley 350.1.13.10 i [place]2.[place] [phone] [address] 2020-01-22 2020-01-[address] [facility] 1.2.840.114 [id number] Univers 08:40:14 12:05:25 ne Visit Zelda Whaley [id number] [place]2.[place] [phone] [address] 2020-01-22 2020-01-22 [facility] [id number] Univers 10:40:00 10:40:00 ZELDA angulo [facility] 2019-12-12 2019-12-[address] [facility] 1.2.840.114 [id number] Univers 00:00:00 00:00:00 Zelda Whaley [id number] [place] [phone] [address] 2019-12-06 2019-12-06 Refill Doctor [facility] 1.2.840.114 [id number] Univers 00:00:00 00:00:00 UnassJovana khan 350.1.13.10 ity [id number] [phone] Oh dical nal [address] [facility] 2019-12-06 2019-12-06 Kamilah Freeman [facility] 1.2.840.114 [id number] Univers 00:00:00 00:00:00 Zelda Whaley [id number] [id number] [phone] Oh dical nal 231 [facility] 2019-10-14 2019-10-14 Outpatient cMcDonald [facility] [id number] [place] 12:28:00 12:28:00 0615 Medical Group Results [...] PREG TEST DATE (test code = 3576) [id number] 15:22:00 Test Item Value Reference Range Interpretation Comments POCT PREG (test code = 1605) Negative On board controls acceptable with C Yes Line (test code = 3574) POCT PREG LOT # (test code = 3575) POCT PREG TEST DATE (test code = 3576) [facility] [id number] 15:22:00 Test Item Value Reference Range Interpretation Comments POCT PREG (test code = 1605) Negative On board controls acceptable with C Yes Line (test code = 3574) POCT PREG LOT # (test code = 3575) POCT PREG TEST DATE (test code = 3576) [facility] [id number] 22:27:00 Test Item Value Reference Range Interpretation Comments POCT PREG (test code = 1605) Negative On board controls acceptable with C Yes Line (test code = 3574) POCT PREG LOT # (test code = 3575) POCT PREG TEST DATE (test code = 3576) [id number] 22:27:00 Test Item Value Reference Range Interpretation Comments POCT PREG (test code = 1605) Negative On board controls acceptable with C Yes Line (test code = 3574) POCT PREG LOT # (test code = 3575) POCT PREG TEST DATE (test code = 3576) [facility] WITH [id number] 17:37:52 Test Item Value Reference Range Interpretation Comments WBC (test code = See_Comment [Automated 0490-2) message] The sy stem which generated this result transmitted reference range : 4.30 - 11.10 10*3/?L. The reference range was not used to interpret this result as normal/abnormal . RBC (test code = See_Comment [Automated 199-8) message] The sy stem which generated this [...] RDW-SD (test code = 45.0 fL 39.0-49.9 50839-4) RDW-CV (test code = 13.5 % 12.0-15.5 788-0) PLT (test code = See_Comment [Automated 777-3) message] The sy stem which generated this result transmitted reference range : 166 - 358 10*3/ ?L. The reference r flaquito was not used to interpret this result as normal/abnormal . MPV (test code = 10.5 fL 9.5-12.9 14848-5) NRBC/100 WBC (test See_Comment [Automat ed code = 4941597580) message] The system which generated this result transmitted reference range : 0.0 - 10.0 /100 WBCs. The refer ence range was not u sed to interpret th is result as normal/abnormal . NRBC x10^3 (test code See_Comment [Auto mated = 7901897206) message] The s ystem which generated this result transmitted reference range : 10*3/?L. The reference range was not used to interpret this result as normal/abnormal . GRAN MAT (NEUT) % 50.6 % (test code = 770-8) IMM GRAN % (test code 0.50 % = 2074149576) LYMPH % (test code = 39.9 % 736-9) MONO % (test code = 7.3 % 5905-5) EOS % (test code = 1.4 % 713-8) BASO % (test code = 0.3 % 706-2) GRAN MAT x10^3(ANC) 4.40 10*3/uL 1.88-7.09 (test code = 9583999358) IMM GRAN x10^3 (test 0.04 10*3/uL 0.00-0.06 code = 0831235764) LYMPH x10^3 (test code 3.46 10*3/uL 1.32-3.29 H = 731-0) MONO x10^3 (test code 0.63 10*3/uL 0.33-0.92 = 742-7) EOS x10^3 (test code = 0.12 10*3/uL 0.03-0.39 711-2) BASO x10^3 (test code 0.03 10*3/uL 0.01-0.07 = 704-7) Lab Interpretation Abnormal (test code = 86292-1) [facility] (Right [facility]ipuncture) 2021-12-23 06:00:39 Test Item Value Reference Range Interpretation Comments Result (test code = No growth in 5 days 6463-4) [facility] [id number] 06:00:39 Test Item Value Reference Range Interpretation Comments CULTURE (BEAKER) (test No growth in 5 days code = 1095) BLOOD [id number] 03:00:36 Test Item Value Reference Range Interpretation Comments CULTURE (BEAKER) (test No growth in 5 days code = 1095) Urinalysis w/Microscopic + Reflex to [id number] 10:45:20 Test Item Value Reference Range Interpretation Comments Color, UA (test Light Yellow code = 5778-6) Clarity, UA (test Clear code = 5767-9) Specific [place], 1.014 1.001-1.035 UA (test code = 5811-5) pH, UA (test code 7.5 5.0-8.0 = 5803-2) Protein, UA (test Negative Negative code = 10278-0) Glucose, UA (test Negative Negative code = 365) Ketones, UA (test Negative Negative code = 2514-8) Bilirubin, UA Negative Negative (test code = 21668-2) Blood, UA (test Negative Negative code = 69572-9) Nitrite, UA (test Negative Negative code = 5802-4) Leukocytes, UA Negative Negative (test code = 5799-2) Urobilinogen, UA 0.2 mg/dL 0.2-1.0 (test code = 63321-7) RBC, UA (test 1 See_Comment [Automated me ssage] code = 80553-0) The system [facility] generated this result transmit aamir reference range : /HPF. The refer ence range was not u sed to interpret th is result as normal/abnormal . WBC, UA (test 1 See_Comment [Automated me ssage] code = 5821-4) The system [facility] generated this result transmit aamir reference range : /HPF. The refer ence range was not u sed to interpret th is result as normal/abnormal . Bacteria, UA Rare (test code = 71748-5) Mucus (test code Rare = 8247-9) Squam Epithel, UA 3 See_Comment [Automate d message] (test code = The system [facility] [place] [address]-0) generated this result transmit aamir reference range : /HPF. The refer ence range was not u sed to interpret th is result as normal/abnormal . Crystals, Urine None Seen (test code = 11966-7) Specimen Source (test code = 2795) SERGIO (test code = Wearing [employer]arel Assembler ID - SERGIO) [auto]Wearing Apparel Assembler ID - tech [facility]/ REFLEX URINE [id number] 10:45:20 Test Item Value Reference Range Interpretation [...] code = 1521) SOURCE(BEAKER) (test code = 5645) [employer]earing [employer] Assembler ID - [auto]Wearing Apparel Assembler ID - techBasic metabolic [id number] 04:19:43 Test Item Value Reference Range Interpretation Comments Sodium (test code = 139 meq/L 866-127 2609-2) Potassium (test code = 3.6 meq/L 3.5-5.1 2823-3) Chloride (test code = 108 meq/L 98-107 H 2075-0) CO2 (test code = 25 meq/L 22-29 8-9) BUN (test code = 13 mg/dL 7-21 3094-0) Creatinine (test code 0.84 mg/dL 0.57-1.25 = 2160-0) Glucose (test code = 112 mg/dL 70-105 H 2345-7) Calcium (test code = 9.0 mg/dL 8.4-10.2 15056-4) EGFR (test code = 79 mL/min/1.73 sq m [facility] [address]-0) NOT ACCURATE CREATININE CLEARANCE IN PREDICTING GLOMERULAR FILTRATION RATE . ESTIMATED GFR I S NOT APPLICABLE FOR DIALYSIS PATIENTS. SERGIO (test code = SERGOI) Wearing Apparel Assembler ID - SHELBY Mireles Lab Interpretation Abnormal (test code = 79041-6) [facility] METABOLIC [id number] 04:19:43 Test Item Value Reference Range Interpretation [...] S NOT APPLICABLE FOR DIALYSIS PATIEN TS. Wearing Apparel Assembler ID - SHELBY MCBC with platelet count + automated [id number] 04:14:48 Test Item Value Reference Range Interpretation Comments WBC (test code = 6690-2) 8.8 See_Comment [A utomated message] The system Your.MD generated this result transmitted ref erence range: 3.5 - 10 .5 K/L. The refe rence range was not u sed to interpret this result as normal/abnor mal. RBC (test code = 789-8) 4.06 See_Comment [Au tomated message] The system Your.MD generated this result transmitted ref erence range: 3.93 - 5 .22 M/L. The refe rence range was not u sed to interpret this result as normal/abnor mal. MCHC (test code = 786-4) 31.2 See_Comment L [A utomated message] The system Your.MD generated this result transmitted ref erence range: [...] See_Comment [Aut omated message] 777-3) The system Your.MD generated this result transmitted ref erence range: 150 - 45 0 K/CU MM. The referen ce range was not u sed to interpret this result as normal/abnor mal. MPV (test code = 10.5 fL 9.4-12.3 70497-6) nRBC (test code = 413) 0 See_Comment [Aut omated message] The system Your.MD generated this result transmitted ref erence range: [...] See_Comment [Aut omated message] 670) The system Your.MD generated this result transmitted ref erence range: 1.56 - 6 .13 K/L. The refe rence range was not u sed to interpret this result as normal/abnor mal. # Lymphs (test code = 4.14 See_Comment H [Auto mated message] 414) The system Your.MD generated this result transmitted ref erence range: 1.18 - 3 .74 K/L. The refe rence range was not u sed to interpret this result as normal/abnor mal. # Monos (test code = 0.74 See_Comment H [Autom ated message] 415) The system Your.MD generated this result transmitted ref erence range: 0.24 - 0 .36 K/L. The refe rence range was not u sed to interpret this result as normal/abnor mal. # Eos (test code = 416) 0.33 See_Comment [Au tomated message] The system Your.MD generated this result transmitted ref erence range: 0.04 - 0 .36 K/L. The refe rence range was not u sed to interpret this result as normal/abnor mal. # Baso (test code = 417) 0.04 See_Comment [A utomated message] The system Your.MD generated this result transmitted ref erence range: 0.01 - 0 .08 K/L. The refe rence range was not u sed to interpret this result as normal/abnor mal. Immature 0 % 0-1 Granulocytes-Relative (test code = 2801) Lab Interpretation (test Abnormal code = 30022-4) [facility] W/PLT COUNT & AUTO [id number] 04:14:48 Test Item Value Reference Range Interpretation [...] % 0-1 PERCENT (BEAKER) (test code = 1665)
[2023-05-11] MEDS ORDERED: NA CHLORIDE 0.9% 1,000 ML ONE (10:06)
[2023-05-11] MEDS ORDERED: LORazepam 2 MG/ML VIAL ONE (10:06)
[2023-05-11 10:23] LABS: Absolute Lymphocytes (CBC) 3.8 K/uL (0.7-4.9); Hematocrit 35.7 % (36.0-45.0); Lymphocytes % 55.2 % (15.3-44.8); MCV 87.4 fL (80-100); RBC Red Blood Cell Count 4.09 M/uL (3.86-4.86)
[2023-05-11] MEDS ORDERED: NA CHLORIDE 0.9% 100 ML ONE (10:29)
[2023-05-11] MEDS ORDERED: LEVETIRACETAM 500 MG/5 ML VIAL IV ONE (10:29)
[2023-05-11 10:42] LABS: ALT/SGPT 17 U/L (13-56); AST/SGOT 9 U/L (15-37); Albumin 3.2 g/dL (3.4-5.0); Alkaline Phosphatase 63 U/L (45-117); BUN Blood Urea Nitrogen 9 mg/dL (7-18); Bicarbonate 26 mEq/L (21-32); Bilirubin Direct 0.1 mg/dL (0-0.2); Bilirubin Indirect, Calculated 0.5 mg/dL (0.2-0.8); Bilirubin Total 0.6 mg/dL (0.2-1.0); Glomerular Filtration Rate 96 ml/min (=/>90); Glucose Level 91 mg/dL (74-106); Potassium 3.8 mEq/L (3.5-5.1); Protein, Total 6.6 g/dL (6.4-8.2); Sodium Level 138 mEq/L (136-145)
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
[2023-05-11] MEDS ORDERED: IBUPROFEN 200 MG TAB PO ONE (12:51)
[2023-05-11 13:13] LABS: Protime INR ND
[2023-05-11 13:36] VITALS: TEMP 98
[2023-05-11 13:37] VITALS: O2SAT 97
[2023-05-11 13:39] VITALS: BP 116/67
--- NOTE | 2023-05-14 11:52 | EKG ---
Test Date: 2023-05-11 Test Time: 11:14:54 Director Of Medical Services: TOM MEASUREMENT RESULTS: Intervals: Rate: 91 AR: 176 QRSD: 82 QT: 368 QTc: 452 [place]: P: 53 AR: 176 QRS: 78 T: 36 INTERPRETIVE STATEMENTS: Normal sinus rhythm Normal ECG Compared to ECG 03/04/2023 09:23:35 Sinus tachycardia no longer present Myocardial infarct finding no longer present Electronically Signed On 05-14-23 11:47:05 CDT by Isai Bailey
== END 2023-05-11 12:51 | disposition home or self-care (01) ==
LOC: ER 09:46
DX: G40.509 Epileptic seizures related to external causes, not intractable, without status epilepticus (principal); Z88.5 Allergy status to narcotic agent; Z88.8 Allergy status to other drugs, medicaments and biological substances
CPT/HCPCS: 96365; 96361; 93005; 85025; 80048; 36415; 85610; 80076; 96375; 99284; 80143; 80179; 82077; J1953; J7030; 85730

== ENCOUNTER 2023-06-26 23:56 | Emergency (ER) | payer OTHER ==
--- OUTSIDE RECORDS SUMMARY | 2023-06-27 00:07 | XMS REPORT | Continuity of Care Document ---
:1990 Author Organization [facility] [place] t Address [address] [facility] [address] [place] [address] Care Team Providers Name Role Phone ERNESTINA GONZALEZ Primary Care Physician Unavailable JOSE ANGEL PERALTA Attending Clinician Unavailable JOSE ANGEL PERALTA Attending Clinician Unavailable NILA VILLAGRAN Attending Clinician Unavailable Dulce Weeks MD Attending Clinician Eugene LLANOS, Zelda Hernandez Attending Clinician Unavailable DULCE WEEKS Attending Clinician Unavailable Doctor Unassigned, [place] Attending Clinician Unavailable Khloe Mayen MA Attending Clinician Unavailable Prisca Vilchis Attending Clinician Unavailable Cyrus Shultz MD Attending Clinician CYRUS SHULTZ Attending Clinician Unavailable Pob, Adc Lab Main Attending Clinician Unavailable JANIS Attending Clinician Unavailable ISHAN BENNETT Attending Clinician Unavailable MARYLU TIWARI Attending Clinician Unavailable Jade STEINER, Brett Attending Clinician Edgardo Jacobs MD Attending Clinician [phone] Marylu Tiwari MD Attending Clinician Nila Rhoades Attending Clinician ZELDA FREEMAN Attending Clinician Unavailable AIDAN REYNOSO Attending Clinician Unavailable Nurse, Adc Pob Immunization Attending Clinician Unavailable Aidan Reynoso DO Attending Clinician Gisell Villegas MD Attending Clinician Unknown, Attending Attending Clinician Unavailable UNKNOWN, ATTENDING Attending Clinician Unavailable Alesha PAC, K Josefina Attending Clinician Zelda Freeman MD Attending Clinician [phone] Lab, Adc Fam Pob I Attending Clinician Unavailable Cedric Burgos Attending Clinician CEDRIC PORTILLO Attending Clinician Unavailable Teresita Attending Clinician Unavailable Matt Foster MD Attending Clinician CYRUS TORRES Attending Clinician Unavailable CMA JIANG Attending Clinician Unavailable MATT FOSTER Attending Clinician Unavailable JOSE ANGEL PERALTA Admitting Clinician Unavailable JANIS Admitting Clinician Unavailable EDGARDO JACOBS Admitting Clinician Unavailable Teresita Admitting Clinician Unavailable JAILENE TIJERINA Admitting Clinician Unavailable Payers Payer Name Policy Type Policy Number Effective Date Expiration Date Janes henriquez [facility] [id number] 2019 CHOICE MEDICAID 00:00:00 MEDICAID COMM [id number] 2021 HEALTH CHOICE 00:00:00 [facility] [id number] CHOICE (MEDICAID REPLACEMENT - HMO) Problems Condition [...] 1-03 it y of m m 00:00: [place] [address] Medical Branch Menorrhagi Menorrhagi Disease Active U nivers a with a with 1-03 [place] irregular [place] 00 [facility] Pain Pain Disease Active 2021-10 Univers pelvic pelvic 2-21 ity of 00:00: [place] [address] Medical Branch History of History of Disease Active 2021-10 U nivers ovarian ovarian 2-21 ity of cyst cyst 00:00: [place] [address] Medical Branch Patient Patient Disease Active 2021-10 Univers desires desires 2-21 [place] [facility] Vaping Vaping Disease Active 2021-10 Univers 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 [place] of dependence [place] , , [place] Medical non-tobacc non-tobacc Br anch o product o product BMI BMI Disease Active 2021-10 Univers 40.0-44.9, 40.0-44.9, 2-21 it y of adult adult 00:00: [place] [facility] Branch 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 2-21 it y of y of shape y of shape 00:00[place] of left of left 00 Medical external external Branch ear ear Urogenital Urogenital Disease Active U nivers infection infection 2-20 ity of by by 00:00: [place] trichomona trichomona 00 Me dical s s Branch vaginalis vaginalis Status Status Disease Active [facility] epileptic[facility] epilepticu 2-20 Maranda kes s s 00:00: [place] [address] Center 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 2-19 ity of 00:00: [place] [address] Medical Branch Status Status Disease Active Univers epilepticu epilepticu 2-19 it y of s s 00:00: [place] [address] Medical Branch Cough Cough Disease Active Univers 2-14 ity of 00:00: [place] [address] Medical Branch Congestion Congestion Disease Active U nivers of nasal of nasal 2-14 ity of sinus sinus 00:00: [place] [address] Medical Branch Nausea Nausea Disease Active Univers 2-14 ity of 00:00: [place] [address] Medical Branch Acute Acute Disease Active Univers [...] menstrual 3-12 ity of cycle cycle 00:00: [place] [facility] Branch Asthma, Asthma, Disease Active Univers [...] 6-24 it y of on on 00:00: [place] [facility] Branch Other Other Disease Active Univers [...] upper 6-24 ity of abdomen abdomen 00:00: [place] 00 Medical Branch Allergies, Adverse Reactions, Alerts Allergy Allergy Status Severity Reaction(s) Onset Inactive Treating Comm ents Source Name Type Date Date Clinician CARBAMAZ DRUG Active High ITCHING Univers EPINE INGREDI 2-19 ity of 00:00: [place] 00 Medical Branch FOSPHENY DRUG Active ITCHING Univers TOIN INGREDI 2-19 ity of 00:00: [place] 00 Medical Branch Carbamaz Propensi Active Shortness of Univers epine ty to Breath 2-19 ity of adverse 00:00: [place] reaction 00 Medical s Branch Fospheny Propensi Active Itching Unive rs toin ty to 2-19 ity of adverse 00:00: [place] reaction 00 Medical s Branch CARBAMAZ Allergy Active High Sob [facility] FOSPHENY Allergy Active Itching [facility] TOIN [facility]19 [facility] Center KETOROLA DRUG Active High Hives Univers C INGREDI 6-23 ity of 00:00: [place] 00 Medical Branch Ketorola Propensi Active Shortness of Can shay e Univers c ty to Breath 6-23 aspirin ity of adverse 00:00: and [place] reaction 00 ibuprofen Medic al s without Branch problem. [place] Drug Active Rash Can take Univer s c Allergy 6-23 aspirin ity of 00:00: and [place] 00 ibuprofen Medical without Branch problem. Can take aspirin and ibuprofen without problem. KETOROLA Allergy Active High Hives [facility] 6[facility]23 [facility] 00[facility] Social History Social Habit Start Date Stop Date Quantity Comments Source History of 2012-04-20 Passive smoker University of tobacco use 00:00:00 [facility] Branch History SDOH [facility] Alcohol Std Medical Cente r Drinks History SDOH [facility] Alcohol Binge Medical Jatinder ter History SDOH [facility] Alcohol Comment Medical C enter Exposure to 2022-12-22 2023-01-01 Not sure University of SARS-CoV-2 00:00:00 11:43:00 [facility] (event) Branch Tobacco use and 2022-10-18 2022-10-18 Smokeless tobacco Un iversity of exposure 00:00:00 00:00:00 non-user [facility] Tobacco Comment 2022-10-18 2022-10-18 3-4 ciggs a day Univ ersity of 00:00:00 00:00:00 [facility] Alcohol intake 2021-12-18 2021-12-[address] [facility] 00:00:00 00:00:00 non-drinker Medical [facility] r (finding) History SDOH 2021-12-18 2021-12-18 1 ZINA Oliver Alcohol Frequency 00:00:00 00:00:00 [facility] Sex [birth year] At [birth year] ZINA Draper 00:00:00 00:00:00 [facility] Center Smoking Status Start Date Stop Date Source Ex-smoker 2022-10-18 00:00:00 2022-10-18 00:00:00 Universi [facility] Never smoked tobacco [facility] Light tobacco smoker 2019-01-07 00:00:00 [facility] [place] [facility] Ordered Filled Start Stop Current Ordering Indication Dosage Frequency Signature Comments Components Source Medication Medication Date Date Medication? Clinician (SIG) Name Name ibuprofen 2022- No [id number] 600mg U nivers (IBU) 3 03-04 ity of tablet 600 16:15: 04:14 [place] mg 00 :00 Medical Branch Norethindro Yes [id number] 1{tbl} Take 1 Univers ne 1-18 tablet by ity of Acet-Ethiny 00:00: mouth in [place] l Est 00 the Medical ( morning. Branch ,) 1.5-30 mg-mcg per tablet ibuprofen Yes [id number] 800mg Take 1 Univers 800 mg 1-18 tablet by ity of tablet 00:00: mouth [place] 00 every 6 Medical (six) Branch hours as needed for Pain (scale 4-6). Norethindro Yes [id number] 1{tbl} Take 1 Univers ne 1-18 tablet by ity of Acet-Ethiny 00:00: [place] Est 00 the Medical (ESTRIN morning. Branch ,) 1.5-30 mg-mcg per tablet ibuprofen Yes [id number] 800mg Take 1 Univers 800 mg 1-18 tablet by ity of tablet 00:00: mouth [place] 00 every 6 Medical (six) Branch hours as needed for Pain (scale 4-6). Norethindro Yes [id number] 1{tbl} Take 1 Univers ne 1-18 tablet by ity of Acet-Ethiny 00:00: [place] Est 00 the Medical (. Branch ,) 1.5-30 mg-mcg per tablet ibuprofen 2022-0 Yes [id number] 800mg Take 1 Univers 800 mg 1-18 tablet by ity of tablet 00:00: mouth [place] 00 every 6 Medical (six) Branch hours as needed for Pain (scale 4-6). Norethindro 2022-0 Yes [id number] 1{tbl} Take 1 Univers ne 1-18 tablet by ity of Acet-Ethiny 00:00: [place] Est 00 the Medical (. Branch ,) 1.5-30 mg-mcg per tablet ibuprofen 2022-0 Yes [id number] 800mg Take 1 Univers 800 mg 1-18 tablet by ity of tablet 00:00: mouth [place] 00 every 6 Medical (six) Branch hours as needed for Pain (scale 4-6). Norethindro 2022-0 Yes [id number] 1{tbl} Take 1 Univers ne 1-18 tablet by ity of Acet-Ethiny 00:00: mouth [place] Est 00 the Medical (. Branch ,) 1.5-30 mg-mcg per tablet ibuprofen 2022-0 Yes [id number] 800mg Take 1 Univers 800 mg 1-18 tablet by ity of tablet 00:00: mouth [place] 00 every 6 Medical (six) Branch hours as needed for Pain (scale 4-6). Norethindro 2022-0 Yes [id number] 1{tbl} Take 1 Univers ne 1-18 tablet by ity of Acet-Ethiny 00:00: mouth [place] Est 00 the Medical (. Branch ,) 1.5-30 mg-mcg per tablet ibuprofen 2022-0 Yes [id number] 800mg Take 1 Univers 800 mg 1-18 tablet by ity of tablet 00:00: mouth [place] 00 every 6 Medical (six) Branch hours as needed for Pain (scale 4-6). Norethindro 2023-0 Yes [id number] 1{tbl} Take 1 Univers ne 1-18 tablet by ity of Acet-Ethiny 00:00: mouth [place] Est 00 the Medical (. Branch ,) 1.5-30 mg-mcg per tablet ibuprofen 2022-0 Yes [id number] 800mg Take 1 Univers 800 mg 1-18 tablet by ity of tablet 00:00: mouth [place] 00 every 6 Medical (six) Branch hours as needed for Pain (scale 4-6). Norethindro 2022-0 Yes [id number] 1{tbl} Take 1 Univers ne 1-18 tablet by ity of Acet-Ethiny 00:00: mouth [place] Est 00 the Medical (. Branch ,) 1.5-30 mg-mcg per tablet ibuprofen 2022-0 Yes [id number] 800mg Take 1 Univers 800 mg 1-18 tablet by ity of tablet 00:00: mouth [place] 00 every 6 Medical (six) Branch hours as needed for Pain (scale 4-6). Norethindro 2022-0 Yes [id number] 1{tbl} Take 1 Univers ne 1-18 tablet by ity of Acet-Ethiny 00:00: mouth [place] Est 00 the Medical (. Branch ,) 1.5-30 mg-mcg per tablet ibuprofen 2022-0 Yes [id number] 800mg Take 1 Univers 800 mg 1-18 tablet by ity of tablet 00:00: mouth [place] 00 every 6 Medical (six) Branch hours as needed for Pain (scale 4-6). Norethindro 3-0 Yes [id number] 1{tbl} Take 1 Univers ne 1-18 tablet by ity of Acet-Ethiny 00:00: mouth [place] Est 00 the Medical (. Branch ,) 1.5-30 mg-mcg per tablet ibuprofen 2022-0 Yes [id number] 800mg Take 1 Univers 800 mg 1-18 tablet by ity of tablet 00:00: mouth [place] 00 every 6 Medical (six) Branch hours as needed for Pain (scale 4-6). Norethindro 2023-0 Yes [id number] 1{tbl} Take 1 Univers ne 1-18 tablet by ity of Acet-Ethiny 00:00: mouth [place] Est 00 the Medical (. Branch ,) 1.5-30 mg-mcg per tablet ibuprofen 2022-0 Yes [id number] 800mg Take 1 Univers 800 mg 1-18 tablet by ity of tablet 00:00: mouth [place] 00 every 6 Medical (six) Branch hours as needed for Pain (scale 4-6). Norethindro 2022-0 Yes [id number] 1{tbl} Take 1 Univers ne 1-18 tablet by ity of Acet-Ethiny 00:00: [place] Est 00 the Medical (. Branch ,) 1.5-30 mg-mcg per tablet ibuprofen 2022-0 Yes [id number] 800mg Take 1 Univers 800 mg 1-18 tablet by ity of tablet 00:00: mouth [place] 00 every 6 Medical (six) Branch hours as needed for Pain (scale 4-6). Norethindro 2022-0 Yes [id number] 1{tbl} Take 1 Univers ne 1-18 tablet by ity of Acet-Ethiny 00:00: [place] Est 00 the Medical (. Branch ,) 1.5-30 mg-mcg per tablet ibuprofen 2022-0 Yes [id number] 800mg Take 1 Univers 800 mg 1-18 tablet by ity of tablet 00:00: mouth [place] 00 every 6 Medical (six) Branch hours as needed for Pain (scale 4-6). Norethindro 2022-0 Yes [id number] 1{tbl} Take 1 Univers ne 1-18 tablet by ity of Acet-Ethiny 00:00: [place] Est 00 the Medical (. Branch ,) 1.5-30 mg-mcg per tablet ibuprofen 2022-0 Yes [id number] 800mg Take 1 Univers 800 mg 1-18 tablet by ity of tablet 00:00: mouth [place] 00 every 6 Medical (six) Branch hours as needed for Pain (scale 4-6). norethindro 2023-0 Yes [id number] .35mg Take 1 Univers ne (ORTHO 1-03 tablet by ity o f MICRONOR) 00:00: [place] 0.35 mg 00 the Medical tablet morning. Jonnathan rileyndro Yes [id number] .35mg Take 1 Univers ne (ORTHO 1-03 tablet by ity o f MICRONOR) 00:00: [place] 0.35 mg 00 the Medical tablet morning. Jonnathan rileyndro Yes [id number] .35mg Take 1 Univers ne (ORTHO 1-03 tablet by ity o f MICRONOR) 00:00: [place] 0.35 mg 00 the Medical tablet morning. Jonnathan rileyndro 2022- No [id number] .35mg Take 1 Univers ne (ORTHO 1-03 -22 tablet by ity of MICRONOR) 00:00: 00:00 mouth in [place] 0.35 mg 00 :00 the Medical tablet morning. Jonnathan porterro 2022- No [id number] .35mg Take 1 Univers ne (ORTHO 1-03 -22 tablet by ity of MICRONOR) 00:00: 00:00 mouth in [place] 0.35 mg 00 :00 the Medical tablet morning. Jonnathan rlieyndro 2021-10 Yes [id number] .35mg Take 1 Univers ne (ORTHO 2-21 tablet by ity o f MICRONOR) 00:00: [place] 0.35 mg 00 the Medical tablet morning. Jonnathan rileyndro 2021-10 Yes [id number] .35mg Take 1 Univers ne (ORTHO 2-21 tablet by ity o f MICRONOR) 00:00: [place] 0.35 mg 00 the Medical tablet morning. Jonnathan rileyndro 2021-10 Yes [id number] .35mg Take 1 Univers ne (ORTHO 2-21 tablet by ity o f MICRONOR) 00:00: [place] 0.35 mg 00 the Medical tablet morning. Jonnathan rileyndro 2021-10 Yes [id number] .35mg Take 1 Univers ne (ORTHO 2-21 tablet by ity o f MICRONOR) 00:00: [place] 0.35 mg 00 the Medical tablet morning. Jonnathan rileyndro 2021-10 Yes [id number] .35mg Take 1 Univers ne (ORTHO 2-21 tablet by ity o f MICRONOR) 00:00: [place] 0.35 mg 00 the Medical tablet morning. Jonnathan rileyndro 2021-10 Yes [id number] .35mg Take 1 Univers ne (ORTHO 2-21 tablet by ity o f MICRONOR) 00:00: [place] 0.35 mg 00 the Medical tablet morning. Jonnathan rileyndro 2021-10 Yes [id number] .35mg Take 1 Univers ne (ORTHO 2-21 tablet by ity o f MICRONOR) 00:00: [place] 0.35 mg 00 the Medical tablet morning. Jonnathan porterro 2021-10 Yes [id number] .35mg Take 1 Univers ne (ORTHO 2-21 tablet by ity o f MICRONOR) 00:00: [place] 0.35 mg 00 the Medical tablet morning. Jonnathan porterro 2021-10 Yes [id number] .35mg Take 1 Univers ne (ORTHO 2-21 tablet by ity o f MICRONOR) 00:00: [place] 0.35 mg 00 the Medical tablet morning. Jonnathan porterro 2021-10 Yes [id number] .35mg Take 1 Univers ne (ORTHO 2-21 tablet by ity o f MICRONOR) 00:00: [place] 0.35 mg 00 the Medical tablet morning. Jonnathan rileyndro 2021-10- No [id number] .35mg Take 1 Univers ne (ORTHO 2-21 -22 tablet by ity of [facility]) 00:00: 00:00 mouth in [place] 0.35 mg 00 :00 the Medical tablet morning. Jonnathan rileyndro 2021-10- No [id number] .35mg Take 1 Univers ne (ORTHO 2-21 -22 tablet by ity of [employer]) 00:00: 00:00 mouth in [place] 0.35 [...] Center mouth 2 (two) times daily. traMADoL 2021-0 Yes 100mg Take [address] [facility] 100 [...] Daily Amount: 3 tablets methylPREDN 2022-0 Yes [id number] Take by Univers ISolone 2-15 mouth ity of (MEDROL, 00:00: SEE-INSTRU [place] BAMBI,) 4 mg 00 CTIONS. Medica l tablets follow Branch package directions methylPREDN 2-0 Yes [id number] Take by Univers ISolone 2-15 mouth ity of (MEDROL, 00:00: SEE-INSTRU [place] BAMBI,) 4 mg 00 CTIONS. Medica l tablets follow Branch package directions methylPREDN 2022-0 Yes [id number] Take by Univers ISolone 2-15 mouth ity of (MEDROL, 00:00: SEE-INSTRU [place] BAMBI,) 4 mg 00 CTIONS. Medica l tablets follow Branch package directions methylPREDN 2022-0 Yes [id number] Take by Univers ISolone 2-15 mouth ity of (MEDROL, 00:00: SEE-INSTRU [place] BAMBI,) 4 mg 00 CTIONS. Medica l tablets follow Branch package directions methylPREDN 2022-0 Yes [id number] Take by Univers ISolone 2-15 mouth ity of (MEDROL, 00:00: SEE-INSTRU [place] BAMBI,) 4 mg 00 CTIONS. Medica l tablets follow Branch package directions methylPREDN 2022-0 Yes [id number] Take by Univers ISolone 2-15 mouth ity of (MEDROL, 00:00: SEE-INSTRU [place]AMBI,) 4 mg 00 CTIONS. Medica l tablets follow Branch package directions methylPREDN 2022-0 Yes [id number] Take by Univers ISolone 2-15 mouth ity of (MEDROL, 00:00: SEE-INSTRU [place] BAMBI,) 4 mg 00 CTIONS. Medica l tablets follow Branch package directions methylPREDN 2022-0 Yes [id number] Take by Univers ISolone 2-15 mouth ity of (MEDROL, 00:00: SEE-INSTRU [place]AMBI,) 4 mg 00 CTIONS. Medica l tablets follow Branch package directions methylPREDN 2022-0 Yes [id number] Take by Univers ISolone 2-15 mouth ity of (MEDROL, 00:00: SEE-INSTRU [place]AMBI,) 4 mg 00 CTIONS. Medica l tablets follow Branch package directions methylPREDN 2022-0 Yes [id number] Take by Univers ISolone 2-15 mouth ity of (MEDROL, 00:00: SEE-INSTRU [place]AMBI,) 4 mg 00 CTIONS. Medica l tablets follow Branch package directions methylPREDN 2022-0 Yes [id number] Take by Univers ISolone 2-15 mouth ity of (MEDROL, 00:00: SEE-INSTRU [place]AMBI,) 4 mg 00 CTIONS. Medica l tablets follow Branch package directions methylPREDN 2022-0 Yes [id number] Take by Univers ISolone 2-15 mouth ity of (MEDROL, 00:00: SEE-INSTRU [place]AMBI,) 4 mg 00 CTIONS. Medica l tablets follow Branch package directions methylPREDN 2022-0 Yes [id number] Take by Univers ISolone 2-15 mouth ity of (MEDROL, 00:00: SEE-INSTRU [place]AMBI,) 4 mg 00 CTIONS. Medica l tablets follow Branch package directions methylPREDN 2022-0 Yes [id number] Take by Univers ISolone 2-15 mouth ity of (MEDROL, 00:00: SEE-INSTRU [place]AMBI,) 4 mg 00 CTIONS. Medica l tablets follow Branch package directions methylPREDN 2022-0 Yes [id number] Take by Univers ISolone 2-15 mouth ity of (MEDROL, 00:00: SEE-INSTRU [place]AMBI,) 4 mg 00 CTIONS. Medica l tablets follow Branch package directions methylPREDN 2022-0 Yes [id number] Take by Univers ISolone 2-15 mouth ity of (MEDROL, 00:00: SEE-INSTRU [place]AMBI,) 4 mg 00 CTIONS. Medica l tablets follow Branch package directions methylPREDN 2022-0 Yes [id number] Take by Univers ISolone 2-15 mouth ity of (MEDROL, 00:00: SEE-INSTRU [place]AMBI,) 4 mg 00 CTIONS. Medica l tablets follow Branch package directions methylPREDN 2022-0 Yes [id number] Take by Univers ISolone 2-15 mouth ity of (MEDROL, 00:00: SEE-INSTRU [place]AMBI,) 4 mg 00 CTIONS. Medica l tablets follow Branch package directions methylPREDN 2022-0 Yes [id number] Take by Univers ISolone 2-15 mouth ity of (MEDROL, 00:00: SEE-INSTRU [place]AMBI,) 4 mg 00 CTIONS. Medica l tablets follow Branch package directions methylPREDN 2022-0 Yes [id number] Take by Univers ISolone 2-15 mouth ity of (MEDROL, 00:00: SEE-INSTRU [place]AMBI,) 4 mg 00 CTIONS. Medica l tablets follow Branch package directions methylPREDN 2022-0 Yes [id number] Take by Univers ISolone 2-15 mouth ity of (MEDROL, 00:00: SEE-INSTRU [place]AMBI,) 4 mg 00 CTIONS. Medica l tablets follow Branch package directions methylPREDN 2022-0 Yes [id number] Take by Univers ISolone 2-15 mouth ity of (MEDROL, 00:00: SEE-INSTRU [place]AMBI,) 4 mg 00 CTIONS. Medica l tablets follow Branch package directions methylPREDN 2022-0 Yes [id number] Take by Univers ISolone 2-15 mouth ity of (MEDROL, 00:00: SEE-INSTRU [place]AMBI,) 4 mg 00 CTIONS. Medica l tablets follow Branch package directions methylPREDN 2022-0 Yes [id number] Take by Univers ISolone 2-15 mouth ity of (MEDROL, 00:00: SEE-INSTRU [place]AMBI,) 4 mg 00 CTIONS. Medica l tablets follow Branch package directions methylPREDN 2-0 Yes [id number] Take by Univers ISolone 2-15 mouth ity of (MEDROL, 00:00: SEE-INSTRU [place]AMBI,) 4 mg 00 CTIONS. Medica l tablets follow Branch package directions methylPREDN 2-0 Yes [id number] Take by Univers ISolone 2-15 mouth ity of (MEDROL, 00:00: SEE-INSTRU [place]AMBI,) 4 mg 00 CTIONS. Medica l tablets follow Branch package directions methylPREDN 2-0 Yes [id number] Take by Univers ISolone 2-15 mouth ity of (MEDROL, 00:00: SEE-INSTRU [place]AM[place],) 4 mg 00 CTIONS. Medica l tablets follow Branch package directions methylPREDN 2-0 Yes [id number] Take by Univers ISolone 2-15 mouth ity of (MEDROL, 00:00: SEE-INSTRU [place]AM[place],) 4 mg 00 CTIONS. Medica l tablets follow Branch package directions methylPREDN 2021-0 Yes [id number] Take by Univers ISolone 2-15 mouth ity of (MEDROL, 00:00: SEE-INSTRU [place]AMBI,) 4 mg 00 CTIONS. Medica l tablets follow Branch package directions methylPREDN 2021-0 2- No [id number] Take by Univers ISolone 2-15 -21 mouth ity of (MEDROL, 00:00: 05:[place],) 4 mg 00 :00 CTIONS for Med ical tablets 5 days. Branch follow package directions methylPREDN 2021-0 2021- No [id number] Take by Univers ISolone 2-15 -15 mouth ity of (MEDROL, 00:00: 00:[place]IN[place]BI,) 4 mg 00 :00 CTIONS for Med ical tablets 5 days. Branch follow package directions omeprazole 2021-2021- No [id number] 40mg Take 1 Univers 40 mg 12-12 capsule by ity of capsule 00:00: 05:59 mouth [place] 00 :00 daily for Medical 14 days. Branch omeprazole 2021-2021- No [id number] 40mg Take 1 Univers 40 mg 12-12 capsule by ity of capsule 00:00: 05:59 mouth [place] 00 :00 daily for Medical 14 days. Branch omeprazole 2021- No [id number] 40mg Take 1 Univers 40 mg 12-12 capsule by ity of capsule 00:00: 05:59 mouth [place] 00 :00 daily for Medical 14 days. Branch omeprazole 2021- No [id number] 40mg Take 1 Univers 40 mg 12-12 capsule by ity of capsule 00:00: 05:59 mouth [place] 00 :00 daily for Medical 14 days. Branch omeprazole 2021- No [id number] 40mg Take 1 Univers 40 mg 12-12 capsule by ity of capsule 00:00: 05:59 mouth [place] 00 :00 daily for Medical 14 days. Branch bromphenira 2021- No [id number] 10mL Take 10 mL Univers mine-pseudo 12-12 by mouth 4 i ty of ephedrine-D 00:00: 05:59 (four) [place] M (BROMFED 00 :00 times Medical DM) 2-30-10 daily as Bran ch mg/5 mL needed for syrup Congestion /Allergies for up to 10 days. ondansetron 2021- No [id number] 4mg Take 1 Univers (ZOFRAN) 4 12-12 tablet by ity of mg tablet 00:00: 05:59 mouth [place] 00 :00 every 8 Medical (eight) Branch hours as needed for Nausea and Vomiting (N/V) for up to 10 days. ciprofloxac 2021- No [id number] 4[drp] Place 4 Univers in-dexameth 12-12 [id number] Drops in it y of asone 00:00: 05:59 right ear [place] (CIPRODEX) 00 :00 2 (two) Medica l 0.3-0.1 % times Branch otic drops daily for 10 days. ibuprofen 2021- No [id number] 600mg Take 1 Univers 600 mg 12-12 [id number] tablet by ity of tablet 00:00: 05:59 mouth [place] 00 :00 every 6 Medical (six) Branch hours as needed for Pain (scale 4-6) for up to 10 days. bromphenira 2021- No [id number] 10mL Take 10 mL Univers mine-pseudo 12-12 by mouth 4 i ty of ephedrine-D 00:00: 05:59 (four) [place] M (BROMFED 00 :00 times Medical DM) 2-30-10 daily as Bran ch mg/5 mL needed for syrup Congestion /Allergies for up to 10 days. ondansetron 2021-2021- No [id number] 4mg Take 1 Univers (ZOFRAN) 4 12-12 tablet by ity of mg tablet 00:00: 05:59 mouth [place] 00 :00 every 8 Medical (eight) Branch hours as needed for Nausea and Vomiting (N/V) for up to 10 days. ciprofloxac 2021- No [id number] 4[drp] Place 4 Univers in-dexameth 12-12 [id number] Drops in it y of asone 00:00: 05:59 right ear [place] (CIPRODEX) 00 :00 2 (two) Medica l 0.3-0.1 % times Branch otic drops daily for 10 days. ibuprofen 2021- No [id number] 600mg Take 1 Univers 600 mg 12-12 [id number] tablet by ity of tablet 00:00: 05:59 mouth [place] 00 :00 every 6 Medical (six) Branch hours as needed for Pain (scale 4-6) for up to 10 days. bromphenira 2021- No [id number] 10mL Take 10 mL Univers mine-pseudo 12-12 by mouth 4 i ty of ephedrine-D 00:00: 05:59 (four) [facility] (BROMFED 00 :00 times Medical DM) 2-30-10 daily as Bran ch mg/5 mL needed for syrup Congestion /Allergies for up to 10 days. ondansetron 2021-2021- No [id number] 4mg Take 1 [facility] (ZOFRAN) 4 12-12 tablet by ity of mg tablet 00:00: 05:59 mouth [place] 00 :00 every 8 Medical (eight) Branch hours as needed for Nausea and Vomiting (N/V) for up to 10 days. ciprofloxac 2021- No [id number] 4[drp] Place 4 [facility] in-dexameth 12-12 [id number] Drops in it y of asone 00:00: 05:59 right ear [place] (CIPRODEX) 00 :00 2 (two) Medica l 0.3-0.1 % times Branch otic drops daily for 10 days. ibuprofen 2021- No [id number] 600mg Take 1 [facility] 600 mg 12-12 [id number] tablet by ity of tablet 00:00: 05:59 mouth [place] 00 :00 every 6 Medical (six) Branch hours as needed for Pain (scale 4-6) for up to 10 days. bromphenira 2021- No [id number] 10mL Take 10 mL [facility] mine-pseudo 12-12 by mouth 4 i ty of ephedrine-D 00:00: 05:59 (four) [facility] (BROMFED 00 :00 times Medical DM) 2-30-10 daily as Bran ch mg/5 mL needed for syrup Congestion /Allergies for up to 10 days. ondansetron 2021- No [id number] 4mg Take 1 [facility] (ZOFRAN) 4 12-12 tablet by ity of mg tablet 00:00: 05:59 mouth [place] 00 :00 every 8 Medical (eight) Branch hours as needed for Nausea and Vomiting (N/V) for up to 10 days. ciprofloxac 2021- No [id number] 4[drp] Place 4 [facility] in-dexameth 12-12 [id number] Drops in it y of asone 00:00: 05:59 right ear [place] (CIPRODEX) 00 :00 2 (two) Medica l 0.3-0.1 % times Branch otic drops daily for 10 days. ibuprofen 2021- No [id number] 600mg Take 1 [facility] 600 mg 12-12 [id number] tablet by ity of tablet 00:00: 05:59 mouth [place] 00 :00 every 6 Medical (six) Branch hours as needed for Pain (scale 4-6) for up to 10 days. bromphenira 2021- No [id number] 10mL Take 10 mL [facility] mine-pseudo 12-12 by mouth 4 i ty of ephedrine-D 00:00: 05:59 (four) [place] [facility] (BROMFED 00 :00 times Medical DM) 2-30-10 daily as Bran ch mg/5 mL needed for syrup Congestion /Allergies for up to 10 days. ondansetron 2021- No [id number] 4mg Take 1 [facility] (ZOFRAN) 4 12-12 tablet by ity of mg tablet 00:00: 05:59 mouth [place] 00 :00 every 8 Medical (eight) Branch hours as needed for Nausea and Vomiting (N/V) for up to 10 days. ciprofloxac 2021- No [id number] 4[drp] Place 4 [facility] in-dexameth 12-12 [id number] Drops in it y of asone 00:00: 05:59 right ear [place] (CIPRODEX) 00 :00 2 (two) Medica l 0.3-0.1 % times Branch otic drops daily for 10 days. ibuprofen 2021- No [id number] 600mg Take 1 [facility] 600 mg 12-12 [id number] tablet by ity of tablet 00:00: 05:59 [...] [place] ORAL) Medical Branch cetirizine 2020-10 Yes [id number] 10mg Take 1 [facility] (ZYRTEC) 10 0-01 tablet by ity of mg tablet 00:00: mouth [place] 00 daily. Medical Branch azelastine 2020-10 Yes [id number] 1{spray Use 1 [facility] 137 mcg 0-01 } [place] in ity of (0.1 %) 00:00: each [place] nasal spray 00 nostril 2 Med ical (two) Branch times daily. Use in each nostril as directed fluticasone 2020-10 Yes [id number] 1{spray Use 1 [facility] propionate 0-01 } [place] in ity o f 50 00:00: each [place] mcg/actuati 00 nostril Medic al on nasal daily. Branch spray cetirizine 2020-10 Yes [id number] 10mg Take 1 [facility] (ZYRTEC) 10 0-01 tablet by ity of mg tablet 00:00: mouth [place] 00 daily. Medical Branch azelastine 2020-10 Yes [id number] 1{spray Use 1 [facility] 137 mcg 0-01 } [place] in ity of (0.1 %) 00:00: each [place] nasal spray 00 nostril 2 Med ical (two) Branch times daily. Use in each nostril as directed fluticasone 2020-10 Yes [id number] 1{spray Use 1 [facility] propionate 0-01 } [place] in ity o f 50 00:00: each [place] mcg/actuati 00 nostril Medic al on nasal daily. Branch spray cetirizine 2020-10 Yes [id number] 10mg Take 1 [facility] (ZYRTEC) 10 0-01 tablet by ity of mg tablet 00:00: mouth [place] 00 daily. Medical Branch azelastine 2020-10 Yes [id number] 1{spray Use 1 [facility] 137 mcg 0-01 } [place] in ity of (0.1 %) 00:00: each [place] nasal spray 00 nostril 2 Med ical (two) Branch times daily. Use in each nostril as directed fluticasone 2020-10 Yes [id number] 1{spray Use 1 [facility] propionate 0-01 } [place] in ity o f 50 00:00: each [place] mcg/actuati 00 nostril Medic al on nasal daily. Branch spray cetirizine 2020-10 Yes [id number] 10mg Take 1 [facility] n[facility] (ZYRTEC) 10 0-01 tablet by ity of mg tablet 00:00: mouth [place] 00 daily. [facility] azelastine 2020-10 Yes [id number] 1{spray Use 1 [facility] 137 mcg 0-01 } [place] in ity of (0.1 %) 00:00: each [place] nasal spray 00 nostril 2 Med ical (two) Branch times daily. Use in each nostril as directed fluticasone 2020-10 Yes [id number] 1{spray Use 1 [facility] propionate 0-01 } [place] in ity o f 50 00:00: each [place] mcg/actuati 00 nostril Medic al on nasal daily. Branch spray cetirizine 2020-10 Yes [id number] 10mg Take 1 [facility] n[facility] (ZYRTEC) 10 0-01 tablet by ity of mg tablet 00:00: mouth [place] 00 daily. [facility] azelastine 2020-10 Yes [id number] 1{spray Use 1 [facility] 137 mcg 0-01 } [place] in ity of (0.1 %) 00:00: each [place] nasal spray 00 nostril 2 Med ical (two) Branch times daily. Use in each nostril as directed fluticasone 2020-10 Yes [id number] 1{spray Use 1 [facility] propionate 0-01 } [place] in ity o f 50 00:00: each [place] mcg/actuati 00 nostril Medic al on nasal daily. Branch spray cetirizine 2020-10 Yes [id number] 10mg Take 1 [facility] n[facility] (ZYRTEC) 10 0-01 tablet by ity of mg tablet 00:00: mouth [place] 00 daily. Medical [place] azelastine 2020-10 Yes [id number] 1{spray Use 1 [facility] 137 mcg 0-01 } [place] in ity of (0.1 %) 00:00: each [place] nasal spray 00 nostril 2 Med ical (two) Branch times daily. Use in each nostril as directed fluticasone 2020-10 Yes [id number] 1{spray Use 1 [facility] propionate 0-01 } [place] in ity o f 50 00:00: each [place] mcg/actuati 00 nostril Medic al on nasal daily. Branch spray cetirizine 2020-10 Yes [id number] 10mg Take 1 [facility] n[facility] (ZYRTEC) 10 0-01 tablet by ity of mg tablet 00:00: mouth [place] 00 daily. Medical Branch azelastine 2020-10 Yes [id number] 1{spray Use 1 [facility] 137 mcg 0-01 } [place] in ity of (0.1 %) 00:00: each [place] nasal spray 00 nostril 2 Med ical (two) Branch times daily. Use in each nostril as directed fluticasone 2020-10 Yes [id number] 1{spray Use 1 [facility] propionate 0-01 } [place] in ity o f 50 00:00: each [place] mcg/actuati 00 nostril Medic al on nasal daily. Branch spray cetirizine 2020-10 Yes [id number] 10mg Take 1 [facility] n[facility] (ZYRTEC) 10 0-01 tablet by ity of mg tablet 00:00: mouth [place] 00 daily. Medical Branch azelastine 2020-10 Yes [id number] 1{spray Use 1 [facility] 137 mcg 0-01 } [place] in ity of (0.1 %) 00:00: each [place] nasal spray 00 nostril 2 Med ical (two) Branch times daily. Use in each nostril as directed fluticasone 2020-10 Yes [id number] 1{spray Use 1 [facility] propionate 0-01 } [place] in ity o f 50 00:00: each [place] mcg/actuati 00 nostril Medic al on nasal daily. Branch spray cetirizine 2020-10 Yes [id number] 10mg Take 1 [facility] n[facility] (ZYRTEC) 10 0-01 tablet by ity of mg tablet 00:00: mouth [place] 00 daily. Medical Branch azelastine 2020-10 Yes [id number] 1{spray Use 1 [facility] 137 mcg 0-01 } [place] in ity of (0.1 %) 00:00: each [place] nasal spray 00 nostril 2 Med ical (two) Branch times daily. Use in each nostril as directed fluticasone 2020-10 Yes [id number] 1{spray Use 1 [facility] propionate 0-01 } [place] in ity o f 50 00:00: each [place] mcg/actuati 00 nostril Medic al on nasal daily. Branch spray cetirizine 2020-10 Yes [id number] 10mg Take 1 [facility] n[facility] (ZYRTEC) 10 0-01 tablet by ity of mg tablet 00:00: mouth [place] 00 daily. Medical Branch azelastine 2020-10 Yes [id number] 1{spray Use 1 [facility] 137 mcg 0-01 } [place] in ity of (0.1 %) 00:00: each [place] nasal spray 00 nostril 2 Med ical (two) Branch times daily. Use in each nostril as directed fluticasone 2020-10 Yes [id number] 1{spray Use 1 [facility] propionate 0-01 } [place] in ity o f 50 00:00: each [place] mcg/actuati 00 nostril Medic al on nasal daily. Branch spray cetirizine 2020-10 Yes [id number] 10mg Take 1 [facility] nivers (ZYRTEC) 10 0-01 tablet by ity of mg tablet 00:00: mouth [place] 00 daily. Medical Branch azelastine 2020-10 Yes [id number] 1{spray Use 1 [facility] 137 mcg 0-01 } [place] in ity of (0.1 %) 00:00: each [place] nasal spray 00 nostril 2 Med ical (two) Branch times daily. Use in each nostril as directed fluticasone 2020-10 Yes [id number] 1{spray Use 1 [facility] propionate 0-01 } [place] in ity o f 50 00:00: each [place] mcg/actuati 00 nostril Medic al on nasal daily. Branch spray cetirizine 2020-10 Yes [id number] 10mg Take 1 [facility] nivers (ZYRTEC) 10 0-01 tablet by ity of mg tablet 00:00: mouth [place] 00 daily. Medical Branch azelastine 2020-10 Yes [id number] 1{spray Use 1 [facility] 137 mcg 0-01 } [place] in ity of (0.1 %) 00:00: each [place] nasal spray 00 nostril 2 Med ical (two) Branch times daily. Use in each nostril as directed fluticasone 2020-10 Yes [id number] 1{spray Use 1 [facility] propionate 0-01 } [place] in ity o f 50 00:00: each [place] mcg/actuati 00 nostril Medic al on nasal daily. Branch spray cetirizine 2020-10 Yes [id number] 10mg Take 1 [facility] nivers (ZYRTEC) 10 0-01 tablet by ity of mg tablet 00:00: mouth [place] 00 daily. Medical Branch azelastine 2020-10 Yes [id number] 1{spray Use 1 [facility] 137 mcg 0-01 } [place] in ity of (0.1 %) 00:00: each [place] nasal spray 00 nostril 2 Med ical (two) Branch times daily. Use in each nostril as directed fluticasone 2020-10 Yes [id number] 1{spray Use 1 [facility] propionate 0-01 } [place] in ity o f 50 00:00: each [place] mcg/actuati 00 nostril Medic al on nasal daily. Branch spray cetirizine 2020-10 Yes [id number] 10mg Take 1 U nivers (ZYRTEC) 10 0-01 tablet by ity of mg tablet 00:00: mouth [place] 00 daily. Medical Branch azelastine 2020-10 Yes [id number] 1{spray Use 1 [facility] 137 mcg 0-01 } [place] in ity of (0.1 %) 00:00: each [place] nasal spray 00 nostril 2 Med ical (two) Branch times daily. Use in each nostril as directed fluticasone 2020-10 Yes [id number] 1{spray Use 1 [facility] propionate 0-01 } [place] in ity o f 50 00:00: each [place] mcg/actuati 00 nostril Medic al on nasal daily. Branch spray cetirizine 2020-10 Yes [id number] 10mg Take 1 U nivers (ZYRTEC) 10 0-01 tablet by ity of mg tablet 00:00: mouth [place] 00 daily. Medical Branch azelastine 2020-10 Yes [id number] 1{spray Use 1 [facility] 137 mcg 0-01 } [place] in ity of (0.1 %) 00:00: each [place] nasal spray 00 nostril 2 Med ical (two) Branch times daily. Use in each nostril as directed fluticasone 2020-10 Yes [id number] 1{spray Use 1 [facility] propionate 0-01 } [place] in ity o f 50 00:00: each [place] mcg/actuati 00 nostril Medic al on nasal daily. Branch spray cetirizine 2020-10 Yes [id number] 10mg Take 1 U nivers (ZYRTEC) 10 0-01 tablet by ity of mg tablet 00:00: mouth [place] 00 daily. Medical Branch azelastine 2020-10 Yes [id number] 1{spray Use 1 [facility] 137 mcg 0-01 } [place] in ity of (0.1 %) 00:00: each [place] nasal spray 00 nostril 2 Med ical (two) Branch times daily. Use in each nostril as directed fluticasone 2020-10 Yes [id number] 1{spray Use 1 [facility] propionate 0-01 } [place] in ity o f 50 00:00: each [place] mcg/actuati 00 nostril Medic al on nasal daily. Branch spray cetirizine 2020-10 Yes [id number] 10mg Take 1 U nivers (ZYRTEC) 10 0-01 tablet by ity of mg tablet 00:00: mouth [place] 00 daily. Medical Branch azelastine 2020-10 Yes [id number] 1{spray Use 1 [facility] 137 mcg 0-01 } [place] in ity of (0.1 %) 00:00: each [place] nasal spray 00 nostril 2 Med ical (two) Branch times daily. Use in each nostril as directed fluticasone 2020-10 Yes [id number] 1{spray Use 1 [facility] propionate 0-01 } [place] in ity o f 50 00:00: each [place] mcg/actuati 00 nostril Medic al on nasal daily. Branch spray cetirizine 2020-10 Yes [id number] 10mg Take 1 U nivers (ZYRTEC) 10 0-01 tablet by ity of mg tablet 00:00: mouth [place] 00 daily. Medical Branch azelastine 2020-10 Yes [id number] 1{spray Use 1 [facility] 137 mcg 0-01 } [place] in ity of (0.1 %) 00:00: each [place] nasal spray 00 nostril 2 Med ical (two) Branch times daily. Use in each nostril as directed fluticasone 2020-10 Yes [id number] 1{spray Use 1 [facility] propionate 0-01 } [place] in ity o f 50 00:00: each [place] mcg/actuati 00 nostril Medic al on nasal daily. Branch spray cetirizine 2020-10 Yes [id number] 10mg Take 1 U nivers (ZYRTEC) 10 0-01 tablet by ity of mg tablet 00:00: mouth [place] 00 daily. Medical Branch azelastine 2020-10 Yes [id number] 1{spray Use 1 [facility] 137 mcg 0-01 } [place] in ity of (0.1 %) 00:00: each [place] nasal spray 00 nostril 2 Med ical (two) Branch times daily. Use in each nostril as directed fluticasone 2020-10 Yes [id number] 1{spray Use 1 [facility] propionate 0-01 } [place] in ity o f 50 00:00: each [place] mcg/actuati 00 nostril Medic al on nasal daily. Branch spray cetirizine 2020-10 Yes [id number] 10mg Take 1 U nivers (ZYRTEC) 10 0-01 tablet by ity of mg tablet 00:00: mouth [place] 00 daily. Medical Branch azelastine 2020-10 Yes [id number] 1{spray Use 1 [facility] 137 mcg 0-01 } [place] in ity of (0.1 %) 00:00: each [place] nasal spray 00 nostril 2 Med ical (two) Branch times daily. Use in each nostril as directed fluticasone 2020-10 Yes [id number] 1{spray Use 1 [facility] propionate 0-01 } [place] in ity o f 50 00:00: each [place] mcg/actuati 00 nostril Medic al on nasal daily. Branch spray cetirizine 2020-10 Yes [id number] 10mg Take 1 U nivers (ZYRTEC) 10 0-01 tablet by ity of mg tablet 00:00: mouth [place] 00 daily. Medical Branch azelastine 2020-10 Yes [id number] 1{spray Use 1 [facility] 137 mcg 0-01 } [place] in ity of (0.1 %) 00:00: each [place] nasal spray 00 nostril 2 Med ical (two) Branch times daily. Use in each nostril as directed fluticasone 2020-10 Yes [id number] 1{spray Use 1 [facility] propionate 0-01 } [place] in ity o f 50 00:00: each [place] mcg/actuati 00 nostril Medic al on nasal daily. Branch spray cetirizine 2020-10 Yes [id number] 10mg Take 1 U nivers (ZYRTEC) 10 0-01 tablet by ity of mg tablet 00:00: mouth [place] 00 daily. Medical Branch azelastine 2020-10 Yes [id number] 1{spray Use 1 [facility] 137 mcg 0-01 } [place] in ity of (0.1 %) 00:00: each [place] nasal spray 00 nostril 2 Med ical (two) Branch times daily. Use in each nostril as directed fluticasone 2020-10 Yes [id number] 1{spray Use 1 [facility] propionate 0-01 } [place] in ity o f 50 00:00: each [place] mcg/actuati 00 nostril Medic al on nasal daily. Branch spray cetirizine 2020-10 Yes [id number] 10mg Take 1 U nivers (ZYRTEC) 10 0-01 tablet by ity of mg tablet 00:00: mouth [place] 00 daily. Medical Branch azelastine 2020-10 Yes [id number] 1{spray Use 1 [facility] 137 mcg 0-01 } [place] in ity of (0.1 %) 00:00: each [place] nasal spray 00 nostril 2 Med ical (two) Branch times daily. Use in each nostril as directed fluticasone 2020-10 Yes [id number] 1{spray Use 1 [facility] propionate 0-01 } [place] in ity o f 50 00:00: each [place] mcg/actuati 00 nostril Medic al on nasal daily. Branch spray cetirizine 2020-10 Yes [id number] 10mg Take 1 U nivers (ZYRTEC) 10 0-01 tablet by ity of mg tablet 00:00: mouth [place] 00 daily. Medical Branch azelastine 2020-10 Yes [id number] 1{spray Use 1 [facility] 137 mcg 0-01 } [place] in ity of (0.1 %) 00:00: each [place] nasal spray 00 nostril 2 Med ical (two) Branch times daily. Use in each nostril as directed fluticasone 2020-10 Yes [id number] 1{spray Use 1 [facility] propionate 0-01 } [place] in ity o f 50 00:00: each [place] mcg/actuati 00 nostril Medic al on nasal daily. Branch spray cetirizine 2020-10 Yes [id number] 10mg Take 1 U nivers (ZYRTEC) 10 0-01 tablet by ity of mg tablet 00:00: mouth [place] 00 daily. Medical Branch azelastine 2020-10 Yes [id number] 1{spray Use 1 [facility] 137 mcg 0-01 } [place] in ity of (0.1 %) 00:00: each [place] nasal spray 00 nostril 2 Med ical (two) Branch times daily. Use in each nostril as directed fluticasone 2020-10 Yes [id number] 1{spray Use 1 [facility] propionate 0-01 } [place] in ity o f 50 00:00: each [place] mcg/actuati 00 nostril Medic al on nasal daily. Branch spray cetirizine 2020-10 Yes [id number] 10mg Take 1 U nivers (ZYRTEC) 10 0-01 tablet by ity of mg tablet 00:00: mouth [place] 00 daily. Medical Branch azelastine 2020-10 Yes [id number] 1{spray Use 1 [facility] 137 mcg 0-01 } [place] in ity of (0.1 %) 00:00: each [place] nasal spray 00 nostril 2 Med ical (two) Branch times daily. Use in each nostril as directed fluticasone 2020-10 Yes [id number] 1{spray Use 1 [facility] propionate 0-01 } [place] in ity o f 50 00:00: each [place] mcg/actuati 00 nostril Medic al on nasal daily. Branch spray cetirizine 2020-10 Yes [id number] 10mg Take 1 U nivers (ZYRTEC) 10 0-01 tablet by ity of mg tablet 00:00: mouth [place] 00 daily. Medical Branch azelastine 2020-10 Yes [id number] 1{spray Use 1 [facility] 137 mcg 0-01 } [place] in ity of (0.1 %) 00:00: each [place] nasal spray 00 nostril 2 Med ical (two) Branch times daily. Use in each nostril as directed fluticasone 2020-10 Yes [id number] 1{spray Use 1 [facility] propionate 0-01 } [place] in ity o f 50 00:00: each [place] mcg/actuati 00 nostril Medic al on nasal daily. Branch spray cetirizine 2020-10 Yes [id number] 10mg Take 1 U nivers (ZYRTEC) 10 0-01 tablet by ity of mg tablet 00:00: mouth [place] 00 daily. Medical Branch azelastine 2020-10 Yes [id number] 1{spray Use 1 [facility] 137 mcg 0-01 } [place] in ity of (0.1 %) 00:00: each [place] nasal spray 00 nostril 2 Med ical (two) Branch times daily. Use in each nostril as directed fluticasone 2020-10 Yes [id number] 1{spray Use 1 [facility] propionate 0-01 } [place] in ity o f 50 00:00: each [place] mcg/actuati 00 nostril Medic al on nasal daily. Branch spray cetirizine 2020-10 Yes [id number] 10mg Take 1 U nivers (ZYRTEC) 10 0-01 tablet by ity of mg tablet 00:00: mouth [place] 00 daily. Medical Branch azelastine 2020-10 Yes [id number] 1{spray Use 1 [facility] 137 mcg 0-01 } [place] in ity of (0.1 %) 00:00: each [place] nasal spray 00 nostril 2 Med ical (two) Branch times daily. Use in each nostril as directed fluticasone 2020-10 Yes [id number] 1{spray Use 1 [facility] propionate 0-01 } [place] in ity o f 50 00:00: each [place] mcg/actuati 00 nostril Medic al on nasal daily. Branch spray cetirizine 2020-10 Yes [id number] 10mg Take 1 U nivers (ZYRTEC) 10 0-01 tablet by ity of mg tablet 00:00: mouth [place] 00 daily. Medical Branch azelastine 2020-10 Yes [id number] 1{spray Use 1 [facility] 137 mcg 0-01 } [place] in ity of (0.1 %) 00:00: each [place] nasal spray 00 nostril 2 Med ical (two) Branch times daily. Use in each nostril as directed fluticasone 2020-10 Yes [id number] 1{spray Use 1 [facility] propionate 0-01 } [place] in ity o f 50 00:00: each [place] mcg/actuati 00 nostril Medic al on nasal daily. Branch spray cetirizine 2020-10 Yes [id number] 10mg Take 1 U nivers (ZYRTEC) 10 0-01 tablet by ity of mg tablet 00:00: mouth [place] 00 daily. Medical Branch azelastine 2020-10 Yes [id number] 1{spray Use 1 [facility] 137 mcg 0-01 } [place] in ity of (0.1 %) 00:00: each [place] nasal spray 00 nostril 2 Med ical (two) Branch times daily. Use in each nostril as directed fluticasone 2020-10 Yes [id number] 1{spray Use 1 [facility] propionate 0-01 } [place] in ity o f 50 00:00: each [place] mcg/actuati 00 nostril Medic al on nasal daily. Branch spray cetirizine 2020-10 Yes [id number] 10mg Take 1 U nivers (ZYRTEC) 10 0-01 tablet by ity of mg tablet 00:00: mouth [place] 00 daily. Medical Branch azelastine 2020-10 Yes [id number] 1{spray Use 1 [facility] 137 mcg 0-01 } [place] in ity of (0.1 %) 00:00: each [place] nasal spray 00 nostril 2 Med ical (two) Branch times daily. Use in each nostril as directed fluticasone 2020-10 Yes [id number] 1{spray Use 1 [facility] propionate 0-01 } [place] in ity o f 50 00:00: each [place] mcg/actuati 00 nostril Medic al on nasal daily. Branch spray bromphenira 2020-10- No [id number] 5mL Take 5 mL [facility] mine-pseudo 0-01 02-14 by mouth 4 i ty of ephedrine-D 00:00: 00:00 (four) [place] [facility] M (BROMFED 00 :00 times Medical DM) 2-30-10 daily as Bran ch mg/5 mL needed for syrup Congestion /Allergies . ibuprofen 2021- No [id number] 600mg Take 1 [facility] 600 mg 9-14 tablet by ity of tablet 00:00: 00:00 mouth [place] 00 :00 every 6 Medical (six) Branch hours as needed for Pain (scale 4-6). benzonatate Yes [id number] 100mg Take 1 [facility] 100 mg 9-10 capsule by ity of capsule 00:00: mouth 3 [place] 00 (three) Medical times Branch daily as needed for Cough. benzonatate Yes [id number] 100mg Take 1 [facility] 100 mg 9-10 capsule by ity of capsule 00:00: mouth 3 [place] 00 (three) Medical times Branch daily as needed for Cough. benzonatate 2021-0 Yes [id number] 100mg Take 1 [facility] 100 mg 9-10 capsule by ity of capsule 00:00: mouth (three) Medical times Branch daily as needed for Cough. benzonatate 2020-0 Yes [id number] 100mg Take 1 [facility] 100 mg 9-10 capsule by ity of capsule 00:00: mouth (three) Medical times Branch daily as needed for Cough. benzonatate 2020-0 Yes [id number] 100mg Take 1 [facility] 100 mg 9-10 capsule by ity of capsule 00:00: mouth (three) Medical times Branch daily as needed for Cough. benzonatate 2020-0 Yes [id number] 100mg Take 1 [facility] 100 mg 9-10 capsule by ity of capsule 00:00: mouth (three) Medical times Branch daily as needed for Cough. benzonatate 2020-0 Yes [id number] 100mg Take 1 [facility] 100 mg 9-10 capsule by ity of capsule 00:00: mouth (three) Medical times Branch daily as needed for Cough. benzonatate 2020-0 Yes [id number] 100mg Take 1 [facility] 100 mg 9-10 capsule by ity of capsule 00:00: mouth (three) Medical times Branch daily as needed for Cough. benzonatate 2020-0 Yes [id number] 100mg Take 1 [facility] 100 mg 9-10 capsule by ity of capsule 00:00: mouth (three) Medical times Branch daily as needed for Cough. benzonatate 2020-0 Yes [id number] 100mg Take 1 [facility] 100 mg 9-10 capsule by ity of capsule 00:00: mouth (three) Medical times Branch daily as needed for Cough. benzonatate 2020-0 Yes [id number] 100mg Take 1 [facility] 100 mg 9-10 capsule by ity of capsule 00:00: mouth (three) Medical times Branch daily as needed for Cough. benzonatate 2020-0 Yes [id number] 100mg Take 1 [facility] 100 mg 9-10 capsule by ity of capsule 00:00: mouth (three) Medical times Branch daily as needed for Cough. benzonatate 2020-0 Yes [id number] 100mg Take 1 [facility] 100 mg 9-10 capsule by ity of capsule 00:00: mouth 3 [place] 00 (three) Medical times Branch daily as needed for Cough. benzonatate 2020-0 Yes [id number] 100mg Take 1 [facility] 100 mg 9-10 capsule by ity of capsule 00:00: mouth (three) Medical times Branch daily as needed for Cough. benzonatate 2020-0 Yes [id number] 100mg Take 1 [facility] 100 mg 9-10 capsule by ity of capsule 00:00: mouth (three) Medical times Branch daily as needed for Cough. benzonatate 2020-0 Yes [id number] 100mg Take 1 [facility] 100 mg 9-10 capsule by ity of capsule 00:00: mouth (three) Medical times Branch daily as needed for Cough. benzonatate 2020-0 Yes [id number] 100mg Take 1 [facility] 100 mg 9-10 capsule by ity of capsule 00:00: mouth (three) Medical times Branch daily as needed for Cough. benzonatate 2020-0 Yes [id number] 100mg Take 1 [facility] 100 mg 9-10 capsule by ity of capsule 00:00: mouth (three) Medical times Branch daily as needed for Cough. benzonatate 2020-0 Yes [id number] 100mg Take 1 [facility] 100 mg 9-10 capsule by ity of capsule 00:00: mouth () Medical times Branch daily as needed for Cough. benzonatate 2020-0 Yes [id number] 100mg Take 1 [facility] 100 mg 9-10 capsule by ity of capsule 00:00: mouth (three) Medical times Branch daily as needed for Cough. benzonatate 2020-0 Yes [id number] 100mg Take 1 [facility] 100 mg 9-10 capsule by ity of capsule 00:00: mouth (three) Medical times Branch daily as needed for Cough. benzonatate 2020-0 Yes [id number] 100mg Take 1 [facility] 100 mg 9-10 capsule by ity of capsule 00:00: mouth (three) Medical times Branch daily as needed for Cough. benzonatate 2020-0 Yes [id number] 100mg Take 1 [facility] 100 mg 9-10 capsule by ity of capsule 00:00: mouth (three) Medical times Branch daily as needed for Cough. benzonatate 2021-0 Yes [id number] 100mg Take 1 [facility] 100 mg 9-10 capsule by ity of capsule 00:00: mouth (three) Medical times Branch daily as needed for Cough. benzonatate 1-0 Yes [id number] 100mg Take 1 [facility] 100 mg 9-10 capsule by ity of capsule 00:00: mouth (three) Medical times Branch daily as needed for Cough. benzonatate 2020-0 Yes [id number] 100mg Take 1 [facility] 100 mg 9-10 capsule by ity of capsule 00:00: mouth (three) Medical times Branch daily as needed for Cough. benzonatate 2020-0 Yes [id number] 100mg Take 1 [facility] 100 mg 9-10 capsule by [facility] of capsule 00:00: mouth (three) Medical times Branch daily as needed for Cough. benzonatate 2020-0 Yes [id number] 100mg Take 1 [facility] 100 mg 9-10 capsule by [facility] of capsule 00:00: mouth () Medical times Branch daily as needed for Cough. benzonatate 2020-0 Yes [id number] 100mg Take 1 [facility] 100 mg 9-10 capsule by [facility] of capsule 00:00: mouth (three) Medical times Branch daily as needed for Cough. benzonatate 2020-0 Yes [id number] 100mg Take 1 [facility] 100 mg 9-10 capsule by [facility] of capsule 00:00: mouth (three) Medical times Branch daily as needed for Cough. benzonatate 2020-0 Yes [id number] 100mg Take 1 [facility] 100 mg 9-10 capsule by [facility] of capsule 00:00: mouth (three) Medical times Branch daily as needed for Cough. benzonatate 2020-0 Yes [id number] 100mg Take 1 [facility] 100 mg 9-10 capsule by [facility] of capsule 00:00: mouth (three) Medical times Branch daily as needed for Cough. medroxyPROG 2020-0 Yes [id number] Take one [facility] ESTERone 4-03 by mouth ity of (PROVERA) 00:00: days one [place] 10 mg 00 through 10 [facility] tablet of each Branch month beginning 02/27/20. medroxyPROG 2020-0 Yes [id number] Take one [facility] ESTERone 4-03 by mouth ity of (PROVERA) 00:00: days one [place] 10 mg 00 through 10 Medical tablet of each Branch month beginning 02/27/20. medroxyPROG 2020-0 Yes [id number] Take one [facility] ESTERone 4-03 by mouth ity of (PROVERA) 00:00: days one [place] 10 mg 00 through 10 Medical tablet of each Branch month beginning 02/27/20. medroxyPROG 2020-0 Yes [id number] Take one [facility] ESTERone 4-03 by mouth ity of (PROVERA) 00:00: days one [place] 10 mg 00 through 10 Medical tablet of each Branch month beginning 02/27/20. medroxyPROG 2020-0 Yes [id number] Take one [facility] ESTERone 4-03 by mouth ity of (PROVERA) 00:00: days one [place] 10 mg 00 through 10 Medical tablet of each Branch month beginning 02/27/20. medroxyPROG 2020-0 Yes [id number] Take one [facility] ESTERone 4-03 by mouth ity of (PROVERA) 00:00: days one [place] 10 mg 00 through 10 Medical tablet of each Branch month beginning 02/27/20. medroxyPROG 2020-0 2021- No [id number] Take one [facility] ESTERone 4-03 12-21 by mouth ity of (PROVERA) 00:00: 00:00 days one [place] 10 mg 00 :00 through 10 Medical tablet of each Branch month beginning 02/27/20. medroxyPROG 2020-0 2022- No [id number] Take one [facility] ESTERone 4-03 12-21 by mouth ity of (PROVERA) 00:00: 00:00 days one [place] 10 mg 00 :00 through 10 Medical tablet of each Branch month beginning 02/27/20. medroxyPROG 2020-0 2- No [id number] Take one [facility] ESTERone 4-03 12-21 by mouth ity of (PROVERA) 00:00: 00:00 days one [place] 10 mg 00 :00 through 10 Medical tablet of each Branch month beginning 02/27/20. amitriptyli 2020-0 Yes [id number] 25mg Take 1 [facility] ne 25 mg 3-26 tablet by ity of tablet 00:00: mouth at 00 bedtime. Medical Branch metoprolol 2020-0 Yes [id number] 50mg Take 1 [facility] tartrate 50 3-26 tablet by ity of mg tablet 00:00: mouth 2 [place] (two) Medical times Branch daily. amitriptyli 2020-0 Yes [id number] 25mg Take 1 [facility] ne 25 mg 3-26 tablet by ity of tablet 00:00: mouth at [place] [address] bedtime. Medical Branch metoprolol 2020-0 Yes [id number] 50mg Take 1 [facility] tartrate 50 3-26 tablet by ity of mg tablet 00:00: mouth 2 [place] (two) Medical times Branch daily. amitriptyli 2020-0 Yes [id number] 25mg Take 1 [facility] ne 25 mg 3-26 tablet by [facility]y of tablet 00:00: mouth at [place] [address] bedtime. Medical Branch metoprolol 2020-0 Yes [id number] 50mg Take 1 [facility] tartrate 50 3-26 tablet by ity of mg tablet 00:00: mouth 2 [place] (two) Medical times Branch daily. amitriptyli 2020-0 Yes [id number] 25mg Take 1 [facility] ne 25 mg 3-26 tablet by ity of tablet 00:00: mouth at [place] [address] bedtime. Medical Branch metoprolol 2020-0 Yes [id number] 50mg Take 1 [facility] tartrate 50 3-26 tablet by ity of mg tablet 00:00: mouth 2 [place] (two) Medical times Branch daily. amitriptyli 2020-0 Yes [id number] 25mg Take 1 [facility] ne 25 mg 3-26 tablet by ity of tablet 00:00: mouth at [place] [address] bedtime. Medical Branch metoprolol 2020-0 Yes [id number] 50mg Take 1 [facility] tartrate 50 3-26 tablet by ity of mg tablet 00:00: mouth 2 [place] (two) Medical times Branch daily. amitriptyli 2020-0 Yes [id number] 25mg Take 1 [facility] ne 25 mg 3-26 tablet by ity of tablet 00:00: mouth at [place] [address] bedtime. Medical Branch metoprolol 2020-0 Yes [id number] 50mg Take 1 [facility] tartrate 50 3-26 tablet by ity of mg tablet 00:00: mouth 2 [place] (two) Medical times Branch daily. amitriptyli 2020-0 Yes [id number] 25mg Take 1 [facility] ne 25 mg 3-26 tablet by ity of tablet 00:00: mouth at [place] [address] bedtime. Medical Branch metoprolol 2020-0 Yes [id number] 50mg Take 1 [facility] tartrate 50 3-26 tablet by ity of mg tablet 00:00: mouth 2 [place] (two) Medical times Branch daily. amitriptyli 2020-0 Yes [id number] 25mg Take 1 [facility] ne 25 mg 3-26 tablet by ity of tablet 00:00: mouth at [place] [address] bedtime. Medical Branch metoprolol 2020-0 Yes [id number] 50mg Take 1 [facility] tartrate 50 3-26 tablet by ity of mg tablet 00:00: mouth 2 [place] (two) Medical times Branch daily. amitriptyli 2020-0 Yes [id number] 25mg Take 1 [facility] ne 25 mg 3-26 tablet by ity of tablet 00:00: mouth at [place] [address] bedtime. Medical Branch metoprolol 2020-0 Yes [id number] 50mg Take 1 [facility] tartrate 50 3-26 tablet by ity of mg tablet 00:00: mouth 2 [place] (two) Medical times Branch daily. amitriptyli 2020-0 Yes [id number] 25mg Take 1 [facility] ne 25 mg 3-26 tablet by ity of tablet 00:00: mouth at [place] [address] bedtime. Medical Branch metoprolol 2020-0 Yes [id number] 50mg Take 1 [facility] tartrate 50 3-26 tablet by ity of mg tablet 00:00: mouth 2 [place] (two) Medical times Branch daily. amitriptyli 2020-0 Yes [id number] 25mg Take 1 [facility] ne 25 mg 3-26 tablet by ity of tablet 00:00: mouth at [place] [address] bedtime. Medical Branch metoprolol 2020-0 Yes [id number] 50mg Take 1 [facility] tartrate 50 3-26 tablet by ity of mg tablet 00:00: mouth 2 [place] (two) Medical times Branch daily. amitriptyli 2020-0 Yes [id number] 25mg Take 1 [facility] ne 25 mg 3-26 tablet by ity of tablet 00:00: mouth at [place] [address] bedtime. Medical Branch metoprolol 2020-0 Yes [id number] 50mg Take 1 [facility] tartrate 50 3-26 tablet by ity of mg tablet 00:00: mouth 2 [place] (two) Medical times Branch daily. amitriptyli 2020-0 Yes [id number] 25mg Take 1 [facility] ne 25 mg 3-26 tablet by ity of tablet 00:00: mouth at [place] [address] bedtime. Medical Branch metoprolol 2020-0 Yes [id number] 50mg Take 1 [facility] tartrate 50 3-26 tablet by ity of mg tablet 00:00: mouth 2 [place] (two) Medical times Branch daily. amitriptyli 2020-0 Yes [id number] 25mg Take 1 [facility] ne 25 mg 3-26 tablet by ity of tablet 00:00: mouth at [place] [address] bedtime. Medical Branch metoprolol 2020-0 Yes [id number] 50mg Take 1 [facility] tartrate 50 3-26 tablet by ity of mg tablet 00:00: mouth 2 [place] (two) Medical times Branch daily. amitriptyli 2020-0 Yes [id number] 25mg Take 1 [facility] ne 25 mg 3-26 tablet by ity of tablet 00:00: mouth at [place] [address] bedtime. Medical Branch metoprolol 2020-0 Yes [id number] 50mg Take 1 [facility] tartrate 50 3-26 tablet by ity of mg tablet 00:00: mouth 2 [place] (two) Medical times Branch daily. amitriptyli 2020-0 Yes [id number] 25mg Take 1 [facility] ne 25 mg 3-26 tablet by ity of tablet 00:00: mouth at [place] [address] bedtime. Medical Branch metoprolol 2020-0 Yes [id number] 50mg Take 1 [facility] tartrate 50 3-26 tablet by ity of mg tablet 00:00: mouth 2 [place] (two) Medical times Branch daily. amitriptyli 2020-0 Yes [id number] 25mg Take 1 [facility] ne 25 mg 3-26 tablet by ity of tablet 00:00: mouth at [place] [address] bedtime. Medical Branch metoprolol 2020-0 Yes [id number] 50mg Take 1 [facility] tartrate 50 3-26 tablet by ity of mg tablet 00:00: mouth 2 [place] (two) Medical times Branch daily. amitriptyli 2020-0 Yes [id number] 25mg Take 1 [facility] ne 25 mg 3-26 tablet by ity of tablet 00:00: mouth at [place] [address] bedtime. Medical Branch metoprolol 2020-0 Yes [id number] 50mg Take 1 [facility] tartrate 50 3-26 tablet by ity of mg tablet 00:00: mouth 2 [place] 00 (two) Medical times Branch daily. amitriptyli 2020-0 Yes [id number] 25mg Take 1 [facility] ne 25 mg 3-26 tablet by ity of tablet 00:00: mouth at [place] [address] bedtime. Medical Branch metoprolol 2020-0 Yes [id number] 50mg Take 1 [facility] tartrate 50 3-26 tablet by ity of mg tablet 00:00: mouth 2 [place] (two) Medical times Branch daily. amitriptyli 2020-0 Yes [id number] 25mg Take 1 [facility] ne 25 mg 3-26 tablet by ity of tablet 00:00: mouth at [place] [address] bedtime. Medical Branch metoprolol 2020-0 Yes [id number] 50mg Take 1 [facility] tartrate 50 3-26 tablet by ity of mg tablet 00:00: mouth 2 [place] (two) Medical times Branch daily. amitriptyli 2020-0 Yes [id number] 25mg Take 1 [facility] ne 25 mg 3-26 tablet by ity of tablet 00:00: mouth at [place] [address] bedtime. Medical Branch metoprolol 2020-0 Yes [id number] 50mg Take 1 [facility] tartrate 50 3-26 tablet by ity of mg tablet 00:00: mouth 2 [place] (two) Medical times Branch daily. amitriptyli 2020-0 Yes [id number] 25mg Take 1 [facility] ne 25 mg 3-26 tablet by ity of tablet 00:00: mouth at [place] [address] bedtime. Medical Branch metoprolol 2020-0 Yes [id number] 50mg Take 1 [facility] tartrate 50 3-26 tablet by ity of mg tablet 00:00: mouth 2 [place] (two) Medical times Branch daily. amitriptyli 2020-0 Yes [id number] 25mg Take 1 [facility] ne 25 mg 3-26 tablet by ity of tablet 00:00: mouth at [place] [address] bedtime. Medical Branch metoprolol 2020-0 Yes [id number] 50mg Take 1 [facility] tartrate 50 3-26 tablet by ity of mg tablet 00:00: mouth 2 [place] (two) Medical times Branch daily. amitriptyli 2020-0 Yes [id number] 25mg Take 1 [facility] ne 25 mg 3-26 tablet by ity of tablet 00:00: mouth at [place] [address] bedtime. Medical Branch metoprolol 2020-0 Yes [id number] 50mg Take 1 [facility] tartrate 50 3-26 tablet by ity of mg tablet 00:00: mouth 2 [place] (two) Medical times Branch daily. amitriptyli 2020-0 Yes [id number] 25mg Take 1 [facility] ne 25 mg 3-26 tablet by ity of tablet 00:00: mouth at [place] [address] bedtime. Medical Branch metoprolol 2020-0 Yes [id number] 50mg Take 1 [facility] tartrate 50 3-26 tablet by ity of mg tablet 00:00: mouth 2 [place] (two) Medical times Branch daily. amitriptyli 2020-0 Yes [id number] 25mg Take 1 [facility] ne 25 mg 3-26 tablet by ity of tablet 00:00: mouth at [place] [address] bedtime. Medical Branch metoprolol 2020-0 Yes [id number] 50mg Take 1 [facility] tartrate 50 3-26 tablet by ity of mg tablet 00:00: mouth 2 [place] (two) Medical times Branch daily. amitriptyli 2020-0 Yes [id number] 25mg Take 1 [facility] ne 25 mg 3-26 tablet by ity of tablet 00:00: mouth at [place] [address] bedtime. Medical Branch metoprolol 2020-0 Yes [id number] 50mg Take 1 [facility] tartrate 50 3-26 tablet by ity of mg tablet 00:00: mouth 2 [place] (two) Medical times Branch daily. amitriptyli 2020-0 Yes [id number] 25mg Take 1 [facility] ne 25 mg 3-26 tablet by ity of tablet 00:00: mouth at [place] [address] bedtime. Medical Branch metoprolol 2020-0 Yes [id number] 50mg Take 1 [facility] tartrate 50 3-26 tablet by ity of mg tablet 00:00: mouth 2 [place] (two) Medical times Branch daily. amitriptyli 2020-0 Yes [id number] 25mg Take 1 [facility] ne 25 mg 3-26 tablet by ity of tablet 00:00: mouth at [place] [address] bedtime. Medical Branch metoprolol 2020-0 Yes [id number] 50mg Take 1 [facility] tartrate 50 3-26 tablet by ity of mg tablet 00:00: mouth 2 [place] (two) Medical times Branch daily. amitriptyli 2020-0 Yes [id number] 25mg Take 1 [facility] ne 25 mg 3-26 tablet by ity of tablet 00:00: mouth at [place] [address] bedtime. Medical Branch metoprolol 2020-0 Yes [id number] 50mg Take 1 [facility] tartrate 50 3-26 tablet by ity of mg tablet 00:00: mouth 2 [place] 00 (two) Medical times Branch daily. amitriptyli 2020-0 Yes [id number] 25mg Take 1 [facility] ne 25 mg 3-26 tablet by ity of tablet 00:00: mouth at [place] [address] bedtime. Medical Branch metoprolol 2020-0 Yes [id number] 50mg Take 1 [facility] tartrate 50 3-26 tablet by ity of mg tablet 00:00: mouth 2 [place] 00 (two) Medical times Branch daily. amitriptyli 2020-0 Yes [id number] 25mg Take 1 [facility] ne 25 mg 3-26 tablet by ity of tablet 00:00: mouth at [place] [address] bedtime. Medical Branch metoprolol 2020-0 Yes [id number] 50mg Take 1 [facility] tartrate 50 3-26 tablet by ity of mg tablet 00:00: mouth 2 [place] 00 (two) Medical times Branch daily. budesonide- 2020-0 Yes [id number] 2{puff} Inhale 2 [facility] formoteroL 2-14 Puffs 2 ity of 160-4.5 00:00: (two) [place] mcg/actuati 00 times Medical on inhaler daily. Branch indomethaci 2020-0 Yes [id number] 50mg Take 1 [facility] n 50 mg 2-14 capsule by ity of capsule 00:00: mouth 3 [place] 00 (three) Medical times Branch daily with meals. albuterol 2020-0 Yes [id number] 2{puff} Inhale 2 [facility] 90 2-14 Puffs ity of mcg/actuati 00:00: every 6 [place] on inhaler 00 (six) Medical hours as Branch needed for Wheezing or Shortness of Breath. levETIRAcet 2020-0 Yes [id number] 500mg Take 1 [facility] am (KEPPRA) 2-14 tablet by ity of 500 mg 00:00: mouth 2 [place] tablet 00 (two) Medical times Branch daily. budesonide- 2020-0 Yes [id number] 2{puff} Inhale 2 [facility] formoteroL 2-14 Puffs 2 ity of 160-4.5 00:00: (two) [place] mcg/actuati 00 times Medical on inhaler daily. Branch indomethaci 2020-0 Yes [id number] 50mg Take 1 [facility] n 50 mg 2-14 capsule by ity of capsule 00:00: mouth 3 [place] (three) Medical times Branch daily with meals. albuterol 2020-0 Yes [id number] 2{puff} Inhale 2 [facility] 90 2-14 Puffs ity of mcg/actuati 00:00: every 6 [place] on inhaler 00 (six) Medical hours as Branch needed for Wheezing or Shortness of Breath. levETIRAcet 2020-0 Yes [id number] 500mg Take 1 [facility] am (KEPPRA) 2-14 tablet by ity of 500 mg 00:00: mouth 2 [place] tablet 00 (two) Medical times Branch daily. budesonide- 2020-0 Yes [id number] 2{puff} Inhale 2 [facility] formoteroL 2-14 Puffs 2 ity of 160-4.5 00:00: (two) [place] mcg/actuati 00 times Medical on inhaler daily. Branch indomethaci 2020-0 Yes [id number] 50mg Take 1 [facility] n 50 mg 2-14 capsule by ity of capsule 00:00: mouth 3 (three) Medical times Branch daily with meals. albuterol 2020-0 Yes [id number] 2{puff} Inhale 2 [facility] 90 2-14 Puffs ity of mcg/actuati 00:00: every 6 [place] on inhaler 00 (six) Medical hours as Branch needed for Wheezing or Shortness of Breath. levETIRAcet 2020-0 Yes [id number] 500mg Take 1 [facility] am (KEPPRA) 2-14 tablet by ity of 500 mg 00:00: mouth 2 [place] tablet 00 (two) Medical times Branch daily. budesonide- 2020-0 Yes [id number] 2{puff} Inhale 2 [facility] formoteroL 2-14 Puffs 2 ity of 160-4.5 00:00: (two) [place] mcg/actuati 00 times Medical on inhaler daily. Branch indomethaci 2020-0 Yes [id number] 50mg Take 1 [facility] n 50 mg 2-14 capsule by ity of capsule 00:00: mouth 3 [place] 00 (three) Medical times Branch daily with meals. albuterol 2020-0 Yes [id number] 2{puff} Inhale 2 [facility] 90 2-14 Puffs ity of mcg/actuati 00:00: every 6 [place] on inhaler 00 (six) Medical hours as Branch needed for Wheezing or Shortness of Breath. levETIRAcet 2020-0 Yes [id number] 500mg Take 1 [facility] am (KEPPRA) 2-14 tablet by ity of 500 mg 00:00: mouth 2 [place] tablet 00 (two) Medical times Branch daily. budesonide- 2020-0 Yes [id number] 2{puff} Inhale 2 [facility] formoteroL 2-14 Puffs 2 ity of 160-4.5 00:00: (two) [place] mcg/actuati 00 times Medical on inhaler daily. Branch indomethaci 2020-0 Yes [id number] 50mg Take 1 [facility] n 50 mg 2-14 capsule by ity of capsule 00:00: mouth 3 [place] 00 (three) Medical times Branch daily with meals. albuterol 2020-0 Yes [id number] 2{puff} Inhale 2 [facility] 90 2-14 Puffs ity of mcg/actuati 00:00: every 6 [place] on inhaler 00 (six) Medical hours as Branch needed for Wheezing or Shortness of Breath. levETIRAcet 2020-0 Yes [id number] 500mg Take 1 [facility] am (KEPPRA) 2-14 tablet by ity of 500 mg 00:00: mouth 2 [place] tablet 00 (two) Medical times Branch daily. budesonide- 2020-0 Yes [id number] 2{puff} Inhale 2 [facility] formoteroL 2-14 Puffs 2 ity of 160-4.5 00:00: (two) [place] mcg/actuati 00 times Medical on inhaler daily. Branch indomethaci 2020-0 Yes [id number] 50mg Take 1 [facility] n 50 mg 2-14 capsule by ity of capsule 00:00: mouth 3 [place] 00 (three) Medical times Branch daily with meals. albuterol 2020-0 Yes [id number] 2{puff} Inhale 2 [facility] 90 2-14 Puffs ity of mcg/actuati 00:00: every 6 [place] on inhaler 00 (six) Medical hours as Branch needed for Wheezing or Shortness of Breath. levETIRAcet 2020-0 Yes [id number] 500mg Take 1 [facility] am (KEPPRA) 2-14 tablet by ity of 500 mg 00:00: mouth 2 [place] tablet 00 (two) Medical times Branch daily. budesonide- 2020-0 Yes [id number] 2{puff} Inhale 2 [facility] formoteroL 2-14 Puffs 2 ity of 160-4.5 00:00: (two) [place] mcg/actuati 00 times Medical on inhaler daily. Branch indomethaci 2020-0 Yes [id number] 50mg Take 1 [facility] n 50 mg 2-14 capsule by ity of capsule 00:00: mouth 3 [place] 00 (three) Medical times Branch daily with meals. albuterol 2020-0 Yes [id number] 2{puff} Inhale 2 [facility] 90 2-14 Puffs ity of mcg/actuati 00:00: every 6 [place] on inhaler 00 (six) Medical hours as Branch needed for Wheezing or Shortness of Breath. levETIRAcet 2020-0 Yes [id number] 500mg Take 1 [facility] am (KEPPRA) 2-14 tablet by ity of 500 mg 00:00: mouth 2 [place] tablet 00 (two) Medical times Branch daily. budesonide- 2020-0 Yes [id number] 2{puff} Inhale 2 [facility] formoteroL 2-14 Puffs 2 ity of 160-4.5 00:00: (two) [place] mcg/actuati 00 times Medical on inhaler daily. Branch indomethaci 2020-0 Yes [id number] 50mg Take 1 [facility] n 50 mg 2-14 capsule by ity of capsule 00:00: mouth 3 [place] 00 (three) Medical times Branch daily with meals. albuterol 2020-0 Yes [id number] 2{puff} Inhale 2 [facility] 90 2-14 Puffs ity of mcg/actuati 00:00: every 6 [place] on inhaler 00 (six) Medical hours as Branch needed for Wheezing or Shortness of Breath. levETIRAcet 2020-0 Yes [id number] 500mg Take 1 [facility] am (KEPPRA) 2-14 tablet by ity of 500 mg 00:00: mouth 2 [place] tablet 00 (two) Medical times Branch daily. budesonide- 2020-0 Yes [id number] 2{puff} Inhale 2 [facility] formoteroL 2-14 Puffs 2 ity of 160-4.5 00:00: (two) [place] mcg/actuati 00 times Medical on inhaler daily. Branch indomethaci 2020-0 Yes [id number] 50mg Take 1 [facility] n 50 mg 2-14 capsule by ity of capsule 00:00: mouth 3 (three) Medical times Branch daily with meals. albuterol 2020-0 Yes [id number] 2{puff} Inhale 2 [facility] 90 2-14 Puffs ity of mcg/actuati 00:00: every 6 [place] on inhaler 00 (six) Medical hours as Branch needed for Wheezing or Shortness of Breath. levETIRAcet 2020-0 Yes [id number] 500mg Take 1 [facility] am (KEPPRA) 2-14 tablet by ity of 500 mg 00:00: mouth 2 [place] tablet 00 (two) Medical times Branch daily. budesonide- 2020-0 Yes [id number] 2{puff} Inhale 2 [facility] formoteroL 2-14 Puffs 2 ity of 160-4.5 00:00: (two) [place] mcg/actuati 00 times Medical on inhaler daily. Branch indomethaci 2020-0 Yes [id number] 50mg Take 1 [facility] n 50 mg 2-14 capsule by ity of capsule 00:00: mouth 3 (three) Medical times Branch daily with meals. albuterol 2020-0 Yes [id number] 2{puff} Inhale 2 [facility] 90 2-14 Puffs ity of mcg/actuati 00:00: every 6 [place] on inhaler 00 (six) Medical hours as Branch needed for Wheezing or Shortness of Breath. levETIRAcet 2020-0 Yes [id number] 500mg Take 1 [facility] am (KEPPRA) 2-14 tablet by ity of 500 mg 00:00: mouth 2 [place] tablet 00 (two) Medical times Branch daily. budesonide- 2020-0 Yes [id number] 2{puff} Inhale 2 [facility] formoteroL 2-14 Puffs 2 ity of 160-4.5 00:00: (two) [place] mcg/actuati 00 times Medical on inhaler daily. Branch indomethaci 2020-0 Yes [id number] 50mg Take 1 [facility] n 50 mg 2-14 capsule by ity of capsule 00:00: mouth 3 [place] 00 (three) Medical times Branch daily with meals. albuterol 2020-0 Yes [id number] 2{puff} Inhale 2 [facility] 90 2-14 Puffs ity of mcg/actuati 00:00: every 6 [place] on inhaler 00 (six) Medical hours as Branch needed for Wheezing or Shortness of Breath. levETIRAcet 2020-0 Yes [id number] 500mg Take 1 [facility] am (KEPPRA) 2-14 tablet by ity of 500 mg 00:00: mouth 2 [place] tablet 00 (two) Medical times Branch daily. budesonide- 2020-0 Yes [id number] 2{puff} Inhale 2 [facility] formoteroL 2-14 Puffs 2 ity of 160-4.5 00:00: (two) [place] mcg/actuati 00 times Medical on inhaler daily. Branch indomethaci 2020-0 Yes [id number] 50mg Take 1 [facility] n 50 mg 2-14 capsule by ity of capsule 00:00: mouth 3 [place] 00 (three) Medical times Branch daily with meals. albuterol 2020-0 Yes [id number] 2{puff} Inhale 2 [facility] 90 2-14 Puffs ity of mcg/actuati 00:00: every 6 [place] on inhaler 00 (six) Medical hours as Branch needed for Wheezing or Shortness of Breath. levETIRAcet 2020-0 Yes [id number] 500mg Take 1 [facility] am (KEPPRA) 2-14 tablet by ity of 500 mg 00:00: mouth 2 [place] tablet 00 (two) Medical times Branch daily. budesonide- 2020-0 Yes [id number] 2{puff} Inhale 2 [facility] formoteroL 2-14 Puffs 2 ity of 160-4.5 00:00: (two) [place] mcg/actuati 00 times Medical on inhaler daily. Branch indomethaci 2020-0 Yes [id number] 50mg Take 1 [facility] n 50 mg 2-14 capsule by ity of capsule 00:00: mouth 3 [place] 00 (three) Medical times Branch daily with meals. albuterol 2020-0 Yes [id number] 2{puff} Inhale 2 [facility] 90 2-14 Puffs ity of mcg/actuati 00:00: every 6 [place] on inhaler 00 (six) Medical hours as Branch needed for Wheezing or Shortness of Breath. levETIRAcet 2020-0 Yes [id number] 500mg Take 1 [facility] am (KEPPRA) 2-14 tablet by ity of 500 mg 00:00: mouth 2 [place] tablet 00 (two) Medical times Branch daily. budesonide- 2020-0 Yes [id number] 2{puff} Inhale 2 [facility] formoteroL 2-14 Puffs 2 ity of 160-4.5 00:00: (two) [place] mcg/actuati 00 times Medical on inhaler daily. Branch indomethaci 2020-0 Yes [id number] 50mg Take 1 [facility] n 50 mg 2-14 capsule by ity of capsule 00:00: mouth 3 [place] 00 (three) Medical times Branch daily with meals. albuterol 2020-0 Yes [id number] 2{puff} Inhale 2 [facility] 90 2-14 Puffs ity of mcg/actuati 00:00: every 6 [place] on inhaler 00 (six) Medical hours as Branch needed for Wheezing or Shortness of Breath. levETIRAcet 2020-0 Yes [id number] 500mg Take 1 [facility] am (KEPPRA) 2-14 tablet by ity of 500 mg 00:00: mouth 2 [place] tablet 00 (two) Medical times Branch daily. budesonide- 2020-0 Yes [id number] 2{puff} Inhale 2 [facility] formoteroL 2-14 Puffs 2 ity of 160-4.5 00:00: (two) [place] mcg/actuati 00 times Medical on inhaler daily. Branch indomethaci 2020-0 Yes [id number] 50mg Take 1 [facility] n 50 mg 2-14 capsule by ity of capsule 00:00: mouth 3 [place] 00 (three) Medical times Branch daily with meals. albuterol 2020-0 Yes [id number] 2{puff} Inhale 2 [facility] 90 2-14 Puffs ity of mcg/actuati 00:00: every 6 [place] on inhaler 00 (six) Medical hours as Branch needed for Wheezing or Shortness of Breath. levETIRAcet 2020-0 Yes [id number] 500mg Take 1 [facility] am (KEPPRA) 2-14 tablet by ity of 500 mg 00:00: mouth 2 [place] tablet 00 (two) Medical times Branch daily. budesonide- 2020-0 Yes [id number] 2{puff} Inhale 2 [facility] formoteroL 2-14 Puffs 2 ity of 160-4.5 00:00: (two) [place] mcg/actuati 00 times Medical on inhaler daily. Branch indomethaci 2020-0 Yes [id number] 50mg Take 1 [facility] n 50 mg 2-14 capsule by ity of capsule 00:00: mouth 3 00 (three) Medical times Branch daily with meals. albuterol 2020-0 Yes [id number] 2{puff} Inhale 2 [facility] 90 2-14 Puffs ity of mcg/actuati 00:00: every 6 [place] on inhaler 00 (six) Medical hours as Branch needed for Wheezing or Shortness of Breath. levETIRAcet 2020-0 Yes [id number] 500mg Take 1 [facility] am (KEPPRA) 2-14 tablet by ity of 500 mg 00:00: mouth 2 [place] tablet 00 (two) Medical times Branch daily. budesonide- 2020-0 Yes [id number] 2{puff} Inhale 2 [facility] formoteroL 2-14 Puffs 2 ity of 160-4.5 00:00: (two) [place] mcg/actuati 00 times Medical on inhaler daily. Branch indomethaci 2020-0 Yes [id number] 50mg Take 1 [facility] n 50 mg 2-14 capsule by ity of capsule 00:00: mouth 3 (three) Medical times Branch daily with meals. albuterol 2020-0 Yes [id number] 2{puff} Inhale 2 [facility] 90 2-14 Puffs ity of mcg/actuati 00:00: every 6 [place] as on inhaler 00 (six) Medical hours as Branch needed for Wheezing or Shortness of Breath. levETIRAcet 2020-0 Yes [id number] 500mg Take 1 [facility] am (KEPPRA) 2-14 tablet by ity of 500 mg 00:00: mouth 2 [place] tablet 00 (two) Medical times Branch daily. budesonide- 2020-0 Yes [id number] 2{puff} Inhale 2 [facility] formoteroL 2-14 Puffs 2 ity of 160-4.5 00:00: (two) [place] mcg/actuati 00 times Medical on inhaler daily. Branch indomethaci 2020-0 Yes [id number] 50mg Take 1 [facility] n 50 mg 2-14 capsule by ity of capsule 00:00: mouth 3 [place] 00 (three) Medical times Branch daily with meals. albuterol 2020-0 Yes [id number] 2{puff} Inhale 2 [facility] 90 2-14 Puffs ity of mcg/actuati 00:00: every 6 [place] as on inhaler 00 (six) Medical hours as Branch needed for Wheezing or Shortness of Breath. levETIRAcet 2020-0 Yes [id number] 500mg Take 1 [facility] am (KEPPRA) 2-14 tablet by ity of 500 mg 00:00: mouth 2 [place] tablet 00 (two) Medical times Branch daily. budesonide- 2020-0 Yes [id number] 2{puff} Inhale 2 [facility] formoteroL 2-14 Puffs 2 ity of 160-4.5 00:00: (two) [place] mcg/actuati 00 times Medical on inhaler daily. Branch indomethaci 2020-0 Yes [id number] 50mg Take 1 [facility] n 50 mg 2-14 capsule by ity of capsule 00:00: mouth 3 [place] 00 (three) Medical times Branch daily with meals. albuterol 2020-0 Yes [id number] 2{puff} Inhale 2 [facility] 90 2-14 Puffs ity of mcg/actuati 00:00: every 6 [place] as on inhaler 00 (six) Medical hours as Branch needed for Wheezing or Shortness of Breath. levETIRAcet 2020-0 Yes [id number] 500mg Take 1 [facility] am (KEPPRA) 2-14 tablet by ity of 500 mg 00:00: mouth 2 [place] tablet 00 (two) Medical times Branch daily. budesonide- 2020-0 Yes [id number] 2{puff} Inhale 2 [facility] formoteroL 2-14 Puffs 2 ity of 160-4.5 00:00: (two) [place] mcg/actuati 00 times Medical on inhaler daily. Branch indomethaci 2020-0 Yes [id number] 50mg Take 1 [facility] n 50 mg 2-14 capsule by ity of capsule 00:00: mouth 3 [place] 00 (three) Medical times Branch daily with meals. albuterol 2020-0 Yes [id number] 2{puff} Inhale 2 [facility] 90 2-14 Puffs ity of mcg/actuati 00:00: every 6 [place] as on inhaler 00 (six) Medical hours as Branch needed for Wheezing or Shortness of Breath. levETIRAcet 2020-0 Yes [id number] 500mg Take 1 [facility] am (KEPPRA) 2-14 tablet by ity of 500 mg 00:00: mouth 2 [place] tablet 00 (two) Medical times Branch daily. budesonide- 2020-0 Yes [id number] 2{puff} Inhale 2 [facility] formoteroL 2-14 Puffs 2 ity of 160-4.5 00:00: (two) [place] mcg/actuati 00 times Medical on inhaler daily. Branch indomethaci 2020-0 Yes [id number] 50mg Take 1 [facility] n 50 mg 2-14 capsule by ity of capsule 00:00: mouth 3 [place] 00 (three) Medical times Branch daily with meals. albuterol 2020-0 Yes [id number] 2{puff} Inhale 2 [facility] 90 2-14 Puffs ity of mcg/actuati 00:00: every 6 [place] as on inhaler 00 (six) Medical hours as Branch needed for Wheezing or Shortness of Breath. levETIRAcet 2020-0 Yes [id number] 500mg Take 1 [facility] am (KEPPRA) 2-14 tablet by ity of 500 mg 00:00: mouth 2 [place] tablet 00 (two) Medical times Branch daily. budesonide- 2020-0 Yes [id number] 2{puff} Inhale 2 [facility] formoteroL 2-14 Puffs 2 ity of 160-4.5 00:00: (two) [place] mcg/actuati 00 times Medical on inhaler daily. Branch indomethaci 2020-0 Yes [id number] 50mg Take 1 [facility] n 50 mg 2-14 capsule by ity of capsule 00:00: mouth 3 [place] 00 (three) Medical times Branch daily with meals. albuterol 2020-0 Yes [id number] 2{puff} Inhale 2 [facility] 90 2-14 Puffs ity of mcg/actuati 00:00: every 6 [place] as on inhaler 00 (six) Medical hours as Branch needed for Wheezing or Shortness of Breath. levETIRAcet 2020-0 Yes [id number] 500mg Take 1 [facility] am (KEPPRA) 2-14 tablet by ity of 500 mg 00:00: mouth 2 [place] tablet 00 (two) Medical times Branch daily. budesonide- 2020-0 Yes [id number] 2{puff} Inhale 2 [facility] formoteroL 2-14 Puffs 2 ity of 160-4.5 00:00: (two) [place] mcg/actuati 00 times Medical on inhaler daily. Branch indomethaci 2020-0 Yes [id number] 50mg Take 1 [facility] n 50 mg 2-14 capsule by ity of capsule 00:00: mouth 3 (three) Medical times Branch daily with meals. albuterol 2020-0 Yes [id number] 2{puff} Inhale 2 [facility] 90 2-14 Puffs ity of mcg/actuati 00:00: every 6 [place] as on inhaler 00 (six) Medical hours as Branch needed for Wheezing or Shortness of Breath. levETIRAcet 2020-0 Yes [id number] 500mg Take 1 [facility] am (KEPPRA) 2-14 tablet by ity of 500 mg 00:00: mouth 2 [place] tablet 00 (two) Medical times Branch daily. budesonide- 2020-0 Yes [id number] 2{puff} Inhale 2 [facility] formoteroL 2-14 Puffs 2 ity of 160-4.5 00:00: (two) [place] mcg/actuati 00 times Medical on inhaler daily. Branch indomethaci 2020-0 Yes [id number] 50mg Take 1 [facility] n 50 mg 2-14 capsule by ity of capsule 00:00: mouth 3 (three) Medical times Branch daily with meals. albuterol 2020-0 Yes [id number] 2{puff} Inhale 2 [facility] 90 2-14 Puffs ity of mcg/actuati 00:00: every 6 [place] as on inhaler 00 (six) Medical hours as Branch needed for Wheezing or Shortness of Breath. levETIRAcet 2020-0 Yes [id number] 500mg Take 1 [facility] am (KEPPRA) 2-14 tablet by ity of 500 mg 00:00: mouth 2 [place] tablet 00 (two) Medical times Branch daily. budesonide- 2020-0 Yes [id number] 2{puff} Inhale 2 [facility] formoteroL 2-14 Puffs 2 ity of 160-4.5 00:00: (two) [place] mcg/actuati 00 times Medical on inhaler daily. Branch indomethaci 2020-0 Yes [id number] 50mg Take 1 [facility] n 50 mg 2-14 capsule by ity of capsule 00:00: mouth 3 [place] 00 (three) Medical times Branch daily with meals. albuterol 2020-0 Yes [id number] 2{puff} Inhale 2 [facility] 90 2-14 Puffs ity of mcg/actuati 00:00: every 6 [place] as on inhaler 00 (six) Medical hours as Branch needed for Wheezing or Shortness of Breath. levETIRAcet 2020-0 Yes [id number] 500mg Take 1 [facility] am (KEPPRA) 2-14 tablet by ity of 500 mg 00:00: mouth 2 [place] tablet 00 (two) Medical times Branch daily. budesonide- 2020-0 Yes [id number] 2{puff} Inhale 2 [facility] formoteroL 2-14 Puffs 2 ity of 160-4.5 00:00: (two) [place] mcg/actuati 00 times Medical on inhaler daily. Branch indomethaci 2020-0 Yes [id number] 50mg Take 1 [facility] n 50 mg 2-14 capsule by ity of capsule 00:00: mouth 3 [place] 00 (three) Medical times Branch daily with meals. albuterol 2020-0 Yes [id number] 2{puff} Inhale 2 [facility] 90 2-14 Puffs ity of mcg/actuati 00:00: every 6 [place] as on inhaler 00 (six) Medical hours as Branch needed for Wheezing or Shortness of Breath. levETIRAcet 2020-0 Yes [id number] 500mg Take 1 [facility] am (KEPPRA) 2-14 tablet by ity of 500 mg 00:00: mouth 2 [place] tablet 00 (two) Medical times Branch daily. budesonide- 2020-0 Yes [id number] 2{puff} Inhale 2 [facility] formoteroL 2-14 Puffs 2 ity of 160-4.5 00:00: (two) [place] mcg/actuati 00 times Medical on inhaler daily. Branch indomethaci 2020-0 Yes [id number] 50mg Take 1 [facility] n 50 mg 2-14 capsule by ity of capsule 00:00: mouth 3 [place] 00 (three) Medical times Branch daily with meals. albuterol 2020-0 Yes [id number] 2{puff} Inhale 2 [facility] 90 2-14 Puffs ity of mcg/actuati 00:00: every 6 [place] as on inhaler 00 (six) Medical hours as Branch needed for Wheezing or Shortness of Breath. levETIRAcet 2020-0 Yes [id number] 500mg Take 1 [facility] am (KEPPRA) 2-14 tablet by ity of 500 mg 00:00: mouth 2 [place] tablet 00 (two) Medical times Branch daily. budesonide- 2020-0 Yes [id number] 2{puff} Inhale 2 [facility] formoteroL 2-14 Puffs 2 ity of 160-4.5 00:00: (two) [place] mcg/actuati 00 times Medical on inhaler daily. Branch indomethaci 2020-0 Yes [id number] 50mg Take 1 [facility] n 50 mg 2-14 capsule by ity of capsule 00:00: mouth 3 [place] 00 (three) Medical times Branch daily with meals. albuterol 2020-0 Yes [id number] 2{puff} Inhale 2 [facility] 90 2-14 Puffs ity of mcg/actuati 00:00: every 6 [place] as on inhaler 00 (six) Medical hours as Branch needed for Wheezing or Shortness of Breath. levETIRAcet 2020-0 Yes [id number] 500mg Take 1 [facility] am (KEPPRA) 2-14 tablet by ity of 500 mg 00:00: mouth 2 [place] tablet 00 (two) Medical times Branch daily. budesonide- 2020-0 Yes [id number] 2{puff} Inhale 2 [facility] formoteroL 2-14 Puffs 2 ity of 160-4.5 00:00: (two) [place] mcg/actuati 00 times Medical on inhaler daily. Branch indomethaci 2020-0 Yes [id number] 50mg Take 1 [facility] n 50 mg 2-14 capsule by ity of capsule 00:00: mouth 3 [place] 00 (three) Medical times Branch daily with meals. albuterol 2020-0 Yes [id number] 2{puff} Inhale 2 [facility] 90 2-14 Puffs ity of mcg/actuati 00:00: every 6 [place] as on inhaler 00 (six) Medical hours as Branch needed for Wheezing or Shortness of Breath. levETIRAcet 2020-0 Yes [id number] 500mg Take 1 [facility] am (KEPPRA) 2-14 tablet by ity of 500 mg 00:00: mouth 2 [place] tablet 00 (two) Medical times Branch daily. budesonide- 2020-0 Yes [id number] 2{puff} Inhale 2 [facility] formoteroL 2-14 Puffs 2 ity of 160-4.5 00:00: (two) [place] mcg/actuati 00 times Medical on inhaler daily. Branch indomethaci 2020-0 Yes [id number] 50mg Take 1 [facility] n 50 mg 2-14 capsule by ity of capsule 00:00: mouth 3 [place] 00 (three) Medical times Branch daily with meals. albuterol 2020-0 Yes [id number] 2{puff} Inhale 2 [facility] 90 2-14 Puffs ity of mcg/actuati 00:00: every 6 [place] as on inhaler 00 (six) Medical hours as Branch needed for Wheezing or Shortness of Breath. levETIRAcet 2020-0 Yes [id number] 500mg Take 1 [facility] am (KEPPRA) 2-14 tablet by ity of 500 mg 00:00: mouth 2 [place] tablet 00 (two) Medical times Branch daily. budesonide- 2020-0 Yes [id number] 2{puff} Inhale 2 [facility] formoteroL 2-14 Puffs 2 ity of 160-4.5 00:00: (two) [place] mcg/actuati 00 times Medical on inhaler daily. Branch indomethaci 2020-0 Yes [id number] 50mg Take 1 [facility] n 50 mg 2-14 capsule by ity of capsule 00:00: mouth 3 (three) Medical times Branch daily with meals. albuterol 2020-0 Yes [id number] 2{puff} Inhale 2 [facility] 90 2-14 Puffs ity of mcg/actuati 00:00: every 6 [place] as on inhaler 00 (six) Medical hours as Branch needed for Wheezing or Shortness of Breath. levETIRAcet 2020-0 Yes [id number] 500mg Take 1 [facility] am (KEPPRA) 2-14 tablet by ity of 500 mg 00:00: mouth 2 [place] tablet 00 (two) Medical times Branch daily. budesonide- 2020-0 Yes [id number] 2{puff} Inhale 2 [facility] formoteroL 2-14 Puffs 2 ity of 160-4.5 00:00: (two) [place] mcg/actuati 00 times Medical on inhaler daily. Branch indomethaci 2020-0 Yes [id number] 50mg Take 1 [facility] n 50 mg 2-14 capsule by ity of capsule 00:00: mouth 3 [place] 00 (three) Medical times Branch daily with meals. albuterol 2020-0 Yes [id number] 2{puff} Inhale 2 [facility] 90 2-14 Puffs ity of mcg/actuati 00:00: every 6 [place] as on inhaler 00 (six) Medical hours as Branch needed for Wheezing or Shortness of Breath. levETIRAcet 2020-0 Yes [id number] 500mg Take 1 [facility] am (KEPPRA) 2-14 tablet by ity of 500 mg 00:00: mouth 2 [place] tablet 00 (two) Medical times [place] daily. topiramate 2020-0 Yes [facility] 25 mg 1-28 ity of tablet 00:00: [address] topiramate 2020-0 Yes [facility] 25 mg 1-28 ity of tablet 00:00: [address] topiramate 2020-0 Yes [facility] 25 mg 1-28 ity of tablet 00:00: [address] topiramate 2020-0 Yes [facility] 25 mg 1-28 ity of tablet 00:00: [address] topiramate 2020-0 Yes [facility] 25 mg 1-28 ity of tablet 00:00: [address] topiramate 2020-0 Yes [facility] 25 mg 1-28 ity of tablet 00:00: [address] topiramate 2020-0 Yes [facility] 25 mg 1-28 ity of tablet 00:00: [address] topiramate 2020-0 Yes [facility] 25 mg 1-28 ity of tablet 00:00: [address] topiramate 2020-0 Yes [facility] 25 mg 1-28 ity of tablet 00:00: [address] topiramate 2020-0 Yes [facility] 25 mg 1-28 ity of tablet 00:00: [address] topiramate 2020-0 Yes [facility] 25 mg 1-28 ity of tablet 00:00: [address] topiramate 2020-0 Yes [facility] 25 mg 1-28 ity of tablet 00:00: [address] topiramate 2020-0 Yes [facility] 25 mg 1-28 ity of tablet 00:00: [address] topiramate 2020-0 Yes [facility] 25 mg 1-28 ity of tablet 00:00: [address] topiramate 2020-0 Yes [facility] 25 mg 1-28 ity of tablet 00:00: [address] topiramate 2020-0 Yes [facility] 25 mg 1-28 ity of tablet 00:00: [address] topiramate 2020-0 Yes [facility] 25 mg 1-28 ity of tablet 00:00: [address] topiramate 2020-0 Yes [facility] 25 mg 1-28 ity of tablet 00:00: [place] 00 Medical Branch topiramate 2020-0 Yes [facility] 25 mg 1-28 ity of tablet 00:00: [place] [address] Medical Branch topiramate 2020-0 Yes [facility] 25 mg 1-28 ity of tablet 00:00: [place] [address] Medical Branch topiramate 2020-0 Yes [facility] 25 mg 1-28 ity of tablet 00:00: [place] [address] Medical Branch topiramate 2020-0 Yes [facility] 25 mg 1-28 ity of tablet 00:00: [place] [address] Medical Branch topiramate 2020-0 Yes [facility] 25 mg 1-28 ity of tablet 00:00: [place] [address] Medical Branch topiramate 2020-0 Yes [facility] 25 mg 1-28 ity of tablet 00:00: [place] [address] Medical Branch topiramate 2020-0 Yes [facility] 25 mg 1-28 ity of tablet 00:00: [place] [address] Medical Branch topiramate 2020-0 Yes [facility] 25 mg 1-28 ity of tablet 00:00: [place] [address] Medical Branch topiramate 2020-0 Yes [facility] 25 mg 1-28 ity of tablet 00:00: [place] [address] Medical Branch topiramate 2020-0 Yes [facility] 25 mg 1-28 ity of tablet 00:00: [place] [address] Medical Branch topiramate 2020-0 Yes [facility] 25 mg 1-28 ity of tablet 00:00: [place] [address] Medical Branch topiramate 2020-0 Yes [facility] 25 mg 1-28 ity of tablet 00:00: [place] [address] Medical Branch topiramate 2020-0 Yes [facility] 25 mg 1-28 ity of tablet 00:00: [place] [address] Medical Branch topiramate 2020-0 Yes [facility] 25 mg 1-28 ity of tablet 00:00: [place] [address] Medical Branch carBAMazepi 2020-0 Yes Univer s ne 200 mg 1-20 ity of tablet 00:00: [place] [address] Medical Branch carBAMazepi 2020-0 Yes Univer s ne 200 mg 1-20 ity of tablet 00:00: [place] [address] Medical Branch carBAMazepi 2020-0 Yes Univer s ne 200 mg 1-20 ity of tablet 00:00: [place] [address] Medical Branch carBAMazepi 2020-0 Yes Univer s ne 200 mg 1-20 ity of tablet 00:00: [place] [address] Medical Branch carBAMazepi 2020-0 Yes Univer s ne 200 mg 1-20 ity of tablet 00:00: [place] [address] Medical Branch carBAMazepi 2020-0 Yes Univer s ne 200 mg 1-20 ity of tablet 00:00: [place] 00 Medical Branch carBAMazepi 2020-0 Yes Univer s ne 200 mg 1-20 ity of tablet 00:00: [place] 00 Medical Branch carBAMazepi 2020-0 Yes Univer s ne 200 mg 1-20 ity of tablet 00:00: [place] [address] Medical Branch carBAMazepi 2020-0 Yes Univer s ne 200 mg 1-20 ity of tablet 00:00: [place] 00 Medical Branch carBAMazepi 2020-0 Yes Univer s ne 200 mg 1-20 ity of tablet 00:00: [place] [address] Medical Branch carBAMazepi 2020-0 Yes Univer s ne 200 mg 1-20 ity of tablet 00:00: [place] [address] Medical Branch carBAMazepi 2020-0 Yes Univer s ne 200 mg 1-20 ity of tablet 00:00: [place] [address] Medical Branch carBAMazepi 2020-0 Yes Univer s ne 200 mg 1-20 ity of tablet 00:00: [place] [address] Medical Branch carBAMazepi 2020-0 Yes Univer s ne 200 mg 1-20 ity of tablet 00:00: [place] [address] Medical Branch carBAMazepi 2020-0 Yes Univer s ne 200 mg 1-20 ity of tablet 00:00: [place] [address] Medical Branch carBAMazepi 2020-0 Yes Univer s ne 200 mg 1-20 ity of tablet 00:00: [place] [address] Medical Branch carBAMazepi 2020-0 Yes Univer s ne 200 mg 1-20 ity of tablet 00:00: [place] [address] Medical Branch carBAMazepi 2020-0 Yes Univer s ne 200 mg 1-20 ity of tablet 00:00: [place] 00 Medical Branch carBAMazepi 2020-0 Yes Univer s ne 200 mg 1-20 ity of tablet 00:00: [place] [address] Medical Branch carBAMazepi 2020-0 Yes Univer s ne 200 mg 1-20 ity of tablet 00:00: [place] [address] Medical Branch carBAMazepi 2020-0 Yes Univer s ne 200 mg 1-20 ity of tablet 00:00: [place] [address] Medical Branch carBAMazepi 2020-0 Yes Univer s ne 200 mg 1-20 ity of tablet 00:00: [place] [address] Medical Branch carBAMazepi 2020-0 Yes Univer s ne 200 mg 1-20 ity of tablet 00:00: [place] [address] Medical Branch carBAMazepi 2020-0 Yes Univer s ne 200 mg 1-20 ity of tablet 00:00: [place] [facility] carBAMazepi 2020-0 Yes Univer s ne 200 mg 1-20 ity of tablet 00:00: [place] [facility] carBAMazepi 2020-0 Yes Univer s ne 200 mg 1-20 ity of tablet 00:00: [place] [facility] carBAMazepi 2020-0 Yes Univer s ne 200 mg 1-20 ity of tablet 00:00: [place] [facility] carBAMazepi 2020-0 Yes Univer s ne 200 mg 1-20 ity of tablet 00:00: [place] [facility] Branch carBAMazepi 2020-0 Yes Univer s ne 200 mg 1-20 ity of tablet 00:00: [place] [facility] Branch carBAMazepi 2020-0 Yes Univer s ne 200 mg 1-20 ity of tablet 00:00: [address] carBAMazepi 2020-0 Yes Univer s ne 200 mg 1-20 ity of tablet 00:00: [address] carBAMazepi 2020-0 Yes Univer s ne 200 mg 1-20 ity of tablet 00:00: [address] [place] No [place] [...] Immunizations Ordered Filled Immunization Date Status Comments [facility] e Immunization Name Name SARS-COV-2 COVID-19 2022-04-12 Completed Unive rsity of VACCINE - (MODERNA) 00:00:00 [facility] SARS-COV-2 COVID-19 2022-04-12 Completed Unive rsity of VACCINE - (MODERNA) 00:00:00 [facility] SARS-COV-2 COVID-19 2022-04-12 Completed Unive rsity of VACCINE - (MODERNA) 00:00:00 [facility] Branch SARS-COV-2 COVID-19 2022-04-12 Completed Unive rsity of VACCINE - (MODERNA) 00:00:00 [facility] SARS-COV-2 COVID-19 2022-04-12 Completed Unive rsity of VACCINE - (MODERNA) 00:00:00 [facility] Branch SARS-COV-2 COVID-19 2022-04-12 Completed Unive rsity of VACCINE - (MODERNA) 00:00:00 [facility] SARS-COV-2 COVID-19 2022-04-12 Completed Unive rsity of VACCINE - (MODERNA) 00:00:00 [facility] SARS-COV-2 COVID-19 2022-04-12 Completed Unive rsity of VACCINE - (MODERNA) 00:00:00 [facility] SARS-COV-2 COVID-19 2022-04-12 Completed Unive rsity of VACCINE - (MODERNA) 00:00:00 [facility] SARS-COV-2 COVID-19 2022-04-12 Completed Unive rsity of VACCINE - (MODERNA) 00:00:00 [facility] Branch SARS-COV-2 COVID-19 2022-04-12 Completed Unive rsity of VACCINE - (MODERNA) 00:00:00 [facility] SARS-COV-2 COVID-19 2022-04-12 Completed Unive rsity of VACCINE - (MODERNA) 00:00:00 [facility] Branch SARS-COV-2 COVID-19 2022-04-12 Completed Unive rsity of VACCINE - (MODERNA) 00:00:00 [facility] Branch SARS-COV-2 COVID-19 2022-04-12 Completed Unive rsity of VACCINE - (MODERNA) 00:00:00 [facility] Branch SARS-COV-2 COVID-19 2022-04-12 Completed Unive rsity of VACCINE - (MODERNA) 00:00:00 [facility] SARS-COV-2 COVID-19 2022-04-12 Completed Unive rsity of VACCINE - (MODERNA) 00:00:00 [place] [facility] SARS-COV-2 COVID-19 2022-04-12 Completed Unive rsity of VACCINE - (MODERNA) 00:00:00 [place] [facility] SARS-COV-2 COVID-19 2021-10-12 Completed Unive [...] Unive rsity of MODERNA VACCINE 00:00:00 [place] [facility] ical Branch SARS-COV-2 COVID-19 2021-09-14 Completed Unive rsity of MODERNA VACCINE 00:00:00 [place] [facility] ical Branch SARS-COV-2 COVID-19 2021-09-14 Completed Unive rsity of MODERNA 12+ YRS 00:00:00 [place] [facility] ical VACCINE Branch SARS-COV-2 COVID-19 2021-09-14 Completed Unive rsity of MODERNA 12+ YRS 00:00:00 [place] [facility] ical VACCINE Branch SARS-COV-2 COVID-19 2021-09-14 Completed Unive rsity of MODERNA 12+ YRS 00:00:00 [place] [facility] ical VACCINE Branch SARS-COV-2 COVID-19 2021-09-14 Completed Unive rsity of MODERNA 12+ YRS 00:00:00 [place] [facility] ical VACCINE Branch SARS-COV-2 COVID-19 2021-09-14 Completed Unive rsity of MODERNA 12+ YRS 00:00:00 [place] [facility] ical VACCINE Branch SARS-COV-2 COVID-19 2021-09-14 Completed Unive rsity of MODERNA 12+ YRS 00:00:00 [place] [facility] ical VACCINE Branch SARS-COV-2 COVID-19 2021-09-14 Completed Unive rsity of MODERNA 12+ YRS 00:00:00 [place] [facility] ical VACCINE Branch SARS-COV-2 COVID-19 2021-09-14 Completed Unive rsity of MODERNA 12+ YRS 00:00:00 [facility] ical VACCINE Branch SARS-COV-2 COVID-19 2021-09-14 Completed Unive rsity of MODERNA 12+ YRS 00:00:00 [facility] VACC[facility] Branch Influenza Virus 2018-12-16 Completed Universit y of Vaccine Quad IM 3+ 00:00:00 [facility] Influenza Virus 2018-12-16 Completed Universit y of Vaccine Quad IM 3+ 00:00:00 [facility] Influenza Virus 2018-12-16 Completed Universit y of Vaccine Quad IM 3+ 00:00:00 [facility] Influenza Virus 2018-12-16 Completed Universit y of Vaccine Quad IM 3+ 00:00:00 [facility] Influenza Virus 2018-12-16 Completed Universit y of Vaccine Quad IM 3+ 00:00:00 [facility] Influenza Virus 2018-12-16 Completed Universit y of Vaccine Quad IM 3+ 00:00:00 [facility] Influenza Virus 2018-12-16 Completed Universit y of Vaccine Quad IM 3+ 00:00:00 [facility] Influenza Virus 2018-12-16 Completed Universit y of Vaccine Quad IM 3+ 00:00:00 [facility] Influenza Virus 2018-12-16 Completed Universit y of Vaccine Quad IM 3+ 00:00:00 [facility] Influenza Virus 2018-12-16 Completed Universit y of Vaccine Quad IM 3+ 00:00:00 [facility] Influenza Virus 2018-12-16 Completed Universit y of Vaccine Quad IM 3+ 00:00:00 [facility] Influenza Virus 2018-12-16 Completed Universit y of Vaccine Quad IM 3+ 00:00:00 [facility] Influenza Virus 2018-12-16 Completed Universit y of Vaccine Quad IM 3+ 00:00:00 [facility] Influenza Virus 2018-12-16 Completed Universit y of Vaccine Quad IM 3+ 00:00:00 [facility] Influenza Virus 2018-12-16 Completed Universit y of Vaccine Quad IM 3+ 00:00:00 [facility] Influenza Virus 2018-12-16 Completed Universit y of Vaccine Quad IM 3+ 00:00:00 [facility] Influenza Virus 2018-12-16 Completed Universit y of Vaccine Quad IM 3+ 00:00:00 [facility] Influenza Virus 2018-12-16 Completed Universit y of Vaccine Quad IM 3+ 00:00:00 [facility] Influenza Virus 2018-12-16 Completed Universit y of Vaccine Quad IM 3+ 00:00:00 [facility] Influenza Virus 2018-12-16 Completed Universit y of Vaccine Quad IM 3+ 00:00:00 [facility] Influenza Virus 2018-12-16 Completed Universit y of Vaccine Quad IM 3+ 00:00:00 [facility] Influenza Virus 2018-12-16 Completed Universit y of Vaccine Quad IM 3+ 00:00:00 [facility] Influenza Virus 2018-12-16 Completed Universit y of Vaccine Quad IM 3+ 00:00:00 [facility] Influenza Virus 2018-12-16 Completed Universit y of Vaccine Quad IM 3+ 00:00:00 [facility] Influenza Virus 2018-12-16 Completed Universit y of Vaccine Quad IM 3+ 00:00:00 [facility] Influenza Virus 2018-12-16 Completed Universit y of Vaccine Quad IM 3+ 00:00:00 [facility] Influenza Virus 2018-12-16 Completed Universit y of Vaccine Quad IM 3+ 00:00:00 [facility] Influenza Virus 2018-12-16 Completed Universit y of Vaccine Quad IM 3+ 00:00:00 [facility] Influenza Virus 2018-12-16 Completed Universit y of Vaccine Quad IM 3+ 00:00:00 [facility] Influenza Virus 2018-12-16 Completed Universit y of Vaccine Quad IM 3+ 00:00:00 [facility] Influenza Virus 2018-12-16 Completed Universit y of Vaccine Quad IM 3+ 00:00:00 [facility] Influenza Virus 2018-12-16 Completed Universit y of Vaccine Quad IM 3+ 00:00:00 [facility] Vital Signs Vital Name Observation Time Observation Value Comments Source Systolic blood 2022-12-29 14:32:00 116 mm[Hg] Univer sity of pressure [facility] Diastolic blood 2022-12-29 14:32:00 80 mm[Hg] Unive rsity of [facility] Heart rate 2022-12-29 14:32:00 82 /min [facility] Body temperature 2022-12-29 14:32:00 36.72 Sury [facility] Respiratory rate 2022-12-29 14:32:00 18 /min [facility] Body height 2022-12-29 14:32:00 162.6 cm [facility] Body weight 2022-12-29 14:32:00 109.226 kg [facility] BMI 2022-12-29 14:32:00 41.33 kg/m2 [facility] Sy[facility]olic blood 2022-11-15 22:35:00 115 mm[Hg] Univer sity of pressure [facility] Diastolic blood 2022-11-15 22:35:00 77 mm[Hg] Unive rsity of pressure [facility] Heart rate 2022-11-15 22:35:00 74 /min [facility] Body temperature 2022-11-15 22:35:00 36.67 Sury [facility] Respiratory rate 2022-11-15 22:35:00 18 /min [facility] Body height 2022-11-15 22:35:00 162.6 cm [facility] Body weight 2022-11-15 22:35:00 111.041 kg [facility] BMI 2022-11-15 22:35:00 42.02 kg/m2 [facility] Systolic blood 2022-10-31 21:55:00 120 mm[Hg] [facility] Diastolic blood 2022-10-31 21:55:00 82 mm[Hg] Unive [facility] Heart rate 2022-10-31 21:55:00 90 /min [facility] Respiratory rate 2022-10-31 21:55:00 18 /min [facility] Body height 2022-10-31 21:55:00 162.6 cm [facility] Body weight 2022-10-31 21:55:00 111.131 kg [facility] BMI 2022-10-31 21:55:00 42.05 kg/m2 [facility] Systolic blood 2022-10-18 15:58:00 110 mm[Hg] [facility] Diastolic blood 2022-10-18 15:58:00 75 mm[Hg] [facility]ive [facility] Heart rate 2022-10-18 15:58:00 92 /min [facility] Body temperature 2022-10-18 15:58:00 36.89 Sury [facility] Respiratory rate 2022-10-18 15:58:00 16 /min [facility] Body height 2022-10-18 15:58:00 162.6 cm [facility] Body weight 2022-10-18 15:58:00 110.678 kg [facility] BMI 2022-10-18 15:58:00 41.88 kg/m2 [facility] Oxygen saturation in 2022-10-18 15:58:00 97 /min University of Arterial blood by [facility] Pulse oximetry Branch HEIGHT 2021-12-17 23:33:00 162.6 cm WEIGHT 2021-12-17 21:14:00 104.781 kg HEIGHT 2021-12-17 23:33:00 162.6 cm WEIGHT 2021-12-17 21:14:00 104.781 kg Heart rate 2021-12-12 22:09:00 106 /min Universi ty [facility] Body temperature 2021-12-12 22:09:00 36.83 [facility] height 2021-12-12 22:09:00 162.6 cm Universi ty [facility] Body weight 2021-12-12 22:09:00 105.96 kg [facility] BMI 2021-12-12 22:09:00 40.10 kg/m2 [facility] Oxygen saturation in 2021-12-12 22:09:00 98 /min University Arterial blood by [facility] Pulse oximetry Branch Systolic blood 2021-12-12 22:09:00 119 mm[Hg] Univer [facility]ity [facility] Diastolic blood 2021-12-12 22:09:00 76 mm[Hg] [facility] Diastolic 2020-04-13 00:00:00 83 mm[Hg] [facility] Height 2020-04-13 00:00:00 64 [in_i] [facility] BMI (Body Mass 2020-04-13 00:00:00 36.5 kg/m2 [facility] 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 development analyst Medical Index) Group BP Systolic 2020-04-13 00:00:00 118 mm[Hg] [facility] Body Weight 2020-04-13 00:00:00 212.8 [lb_av] [facility] Systolic blood 2021-12-18 12:35:00 120 mm[Hg] [facility] Diastolic blood 2021-12-18 12:35:00 90 mm[Hg] [facility] S t [facility] Heart rate 2021-12-18 12:35:00 79 /min [facility] Body temperature 2021-12-18 12:35:00 36.56 Sury [facility] Respiratory rate 2021-12-18 12:35:00 18 /min [facility] Oxygen saturation in 2021-12-18 12:35:00 96 /min [facility] Arterial blood by Medical Ce nter Pulse oximetry Body height 2021-12-17 23:33:00 162.6 cm [facility] Body weight 2021-12-17 21:14:00 104.781 kg [facility] BMI 2021-12-17 21:14:00 39.65 kg/m2 [facility] Procedures Procedure Date / Time Performing Clinician Source Performed US PELVIS COMPLETE WITH 2023-02-02 16:35:18 [facility] POCT TEST 2022-12-29 15:22:00 Dulce Weeks [facility] PATIENT FINANCIAL 2022-12-29 14:22:26 Doctor Quesada, [facility] POLICY [place] [facility] [place] GC & CHLAMYDIA AMPLIFIED 2022-11-15 22:38:00 Jose Angel Peralta [facility] TRICHOMONAS AMPLIFIED 2022-11-15 22:38:00 Jose Angel Peralta [facility] CONSENT FOR CONTRACEPTION 2022-11-15 06:01:00 Doctor Quesada [facility] [place] [facility] US PELVIS COMPLETE WITH 2022-10-31 00:48:02 Jose Angel [facility] NOTICE OF PRIVACY 2022-10-31 00:03:57 Doctor Quesada, [facility] PRACTICES [place] [facility] [place] CONSENT/REFUSAL FOR 2022-10-31 00:03:31 Doctor Quesada [facility] DIAGNOSIS AND TREATMENT [place] [facility] [place] ASSIGNMENT OF BENEFITS 2022-10-31 00:03:08 Doctor Dipak, [facility] Name Medical Branch POCT TEST 2022-10-31 00:00:00 Jose Angel Peralta [facility] INSURANCE CORRESPONDENCE 2022-10-25 06:01:00 Doctor Quesada [facility] [place] [facility] [place] CBC WITH DIFF 2022-10-18 17:18:00 [facility] ASSIGNMENT OF BENEFITS 2022-10-18 15:41:13 Doctor Unassigned[facility] [place] [facility] URINALYSIS W/ REFLEX 2021-12-18 10:11:00 Marylu Tiwari I [facility] URINE CULTURE Center BLOOD CULTURE 2021-12-18 03:39:00 [facility] keen [facility] BASIC METABOLIC PANEL 2021-12-18 03:39:00 Chad Dickey [facility] CBC W/PLT COUNT & AUTO 2021-12-18 03:39:00 [facility] DIFFERENTIAL [place] CBC W/PLT COUNT & AUTO 2021-12-18 03:39:00 [facility] DIFFERENTIAL Center BLOOD CULTURE 2021-12-17 23:54:00 [facility] EKG-SCANNED 2021-12-17 00:00:00 Provider, Jasbir [facility] Medical Scanning [place] Plan of Care Planned Activity Planned Date Details Comments Source Future Scheduled 2023-06-29 Influenza Vaccine (#1) [facility] 00:00:00 [code = Influenza Medical Ce nter Vaccine (#1)] Future Scheduled 2023-06-29 Influenza Vaccine (#1) C [...] Center INFLUENZA VACCINE (Season Ended)] Future Scheduled 2022-10-[address] [facility] Test 00:00:00 (12+) [code = DEPRESSION Med ica Center SCREENING (12+)] Future Scheduled 2022-10-29 DEPRESSION [...] Test 00:00:00 (12+) [code = DEPRESSION Med [facility] Center SCREENING (12+)] Diagnostic Test 2020-04-13 CBC w/ auto diff [code = [facility] Pending 00:00:00 CBC w/ auto diff] Group Diagnostic Test 2020-04-13 CMP, serum or plasma [facility] Pending 00:00:00 [code = CMP, serum or Group plasma] Diagnostic Test 2020-04-13 lipid panel, serum [code [facility] Pending 00:00:00 = lipid panel, serum] Group Diagnostic Test 2020-04-13 HBsAg (hepatitis B [facility] talent development analyst Medical Pending 00:00:00 surface Ag), serum [code [...] TSH + free T4, serum [facility] Pending 00:00:00 [code = TSH + free T4, Group serum] Diagnostic Test 2020-04-13 pap, LB + HPV [code = [facility] Pending 00:00:00 pap, LB + HPV] Group Diagnostic Test 2020-04-13 CT + NG + TV, DNA, [facility] talent development analyst Medical Pending 00:00:00 urine/swab [code = CT + Grou p NG + TV, DNA, urine/swab] Future Scheduled 2011 Screening for malignant [facility] Test 00:00:00 neoplasm of cervix Medical C enter (procedure) [code = 169646437] Future Scheduled 2011 Screening for malignant [facility] Test 00:00:00 neoplasm of cervix Medical C enter (procedure) [code = 014918192] Future Scheduled 2011 Screening for malignant [facility] Test 00:00:00 neoplasm of cervix Medical C enter (procedure) [code = 453549249] Future Scheduled 2011 Screening for malignant [facility] Test 00:00:00 neoplasm of cervix Medical C enter (procedure) [code = 707243137] Future Scheduled 2011 Screening for malignant [facility] Test 00:00:00 neoplasm of cervix Medical C enter (procedure) [code = 921564141] Future Scheduled 2011 Screening for malignant [facility] Test 00:00:00 neoplasm of cervix Medical C enter (procedure) [code = 415740689] Future Scheduled 2010 Lipid panel (procedure) [facility] Test 00:00:00 [code = 49949082] Medical Ce nter Future Scheduled 2010 Lipid panel (procedure) [facility] Test 00:00:00 [code = 78142766] Medical Ce nter Future Scheduled 2010 Lipid panel (procedure) [facility] Test 00:00:00 [code = 50917591] Medical Ce nter Future Scheduled 2010 Lipid panel (procedure) [facility] Test 00:00:00 [code = 34136257] Medical Ce nter Future Scheduled 2010 Lipid panel (procedure) [facility] Test 00:00:00 [code = 76283752] Medical Ce nter Future Scheduled 2010 Lipid panel (procedure) [facility] Test 00:00:00 [code = 94991660] Medical Ce nter Future Scheduled 2009 DTAP/TDAP/TD [...] screening Medical Cent er (procedure) [code = 117960088] Future Scheduled [address] [facility] Test 00:00:00 virus screening Medical Cent er (procedure) [code = 639433484] Future Scheduled [address] [...] Type Clinicians Facility Department ID 2021-08-30 Emergency [facility] [id number] Univers 00:49:50 [facility] 2023-05-31 2023-05-31 Outpatient [facility] [id number] Univers 16:30:00 16:30:00 [facility] 2023-02-02 2023-02-02 Outpatient [facility] [id number] Univers 10:57:29 23:59:00 [facility] JOSE ANGEL [facility] 2023-02-02 2023-02-02 [facility] 1.2.840.114 [id number] Univers 10:57:29 23:59:00 Encounter Jose Angel WHALEY 350.1.13.10 ity [facility] 4.2.7.2.686 [facility] [id number] [facility] [address] [place] 2023-01-08 2023-01-08 Telephone [facility] [id number] Univers 00:00:00 00:00:00 Dulce WHALEY 350.1.13.10 ity [facility] 4.2.7.2.686 [facility] [phone] Ga dical [facility] 134 [facility] 2023-01-02 2023-01-02 Patient Knight, [facility] 1.2.840.114 [id number] Univers 00:00:00 00:00:00 Secure Msg Zelda Hernandez JOVANA 350.1.13.10 ity of [facility] [place].2.[place] [id number] [address] 2023-01-02 2023-01-02 Telephone [facility] 1.2.840.114 [id number] Univers 00:00:00 00:00:00 Dulce SCRUGGS 350.1.13.10 i ty of [place] [id number] [address] 2022-12-29 2022-12-29 Out[facility] [id number] Univers 09:00:00 09:23:08 DULCE angulo of [facility] 2022-12-29 2022-12-29 Office AdSelect Medical [facility] 1.2.840.114 [id number] Univers 09:00:00 09:23:08 Visit Dulce WHALEY 350.1.13.10 it[place] [phone] [address] 2022-12-29 2022-12-29 Orders Doctor AMBREEN 1.2.840.114 [id number] Univers 00:00:00 00:00:00 Only Unassigned, DONY 350.1.13.10 ity of [place] [facility] 4.2.7.2.686 [place] as [phone] [address] 2022-12-29 2022-12-29 Letter [facility] 1.2.840.114 [id number] Univers 00:00:00 00:00:00 (Out) Dulce WHALEY 350.1.13.10 [place] [id number] [address] 2022-12-28 2022-12-28 Telephone [facility] 1.2.840.11 [id number] Univers 00:00:00 00:00:00 Jose Angel SCRUGGS 350.1.13.10 it y of [place] [id number] [facility] [address] [place] 2022-12-28 2022-12-28 Telephone [facility] 1.2.840.11 [id number] Univers 00:00:00 00:00:00 Jose Angel SCRUGGS 350.1.13.10 it y of [place] [id number] [facility] [address] [place] 2022-11-15 2022-11-15 Office [facility] 1.2.840.114 [id number] Univers 15:00:00 17:23:28 Visit Jose Angel SCRUGGS 350.1.13.10 it [place] [id number] [address] 2022-11-15 2022-11-15 Outpatient R JOSE ANGEL PERALTA [facility] B [id number] Univers 15:00:00 17:23:28 JOSE ANGEL PERALTA itrigo [facility] 2022-11-15 2022-11-15 Orders Doctor AMBREEN 1.2.840.114 [id number] Univers 00:00:00 00:00:00 Only Unassigned, DONY 350.1.13.10 ity of [place] [facility] 4.2.7.2.686 Elan as [phone] [facility] [address] 2022-11-08 2022-11-08 Pre Visit DENNIS Mayen 1.2.727.161 [id number] Univers 00:00:00 00:00:00 Outreach Khloe SIMMS 350.1.13.10 i [place] [id number] [facility] [address] [place] 2022-10-31 2022-10-31 Office [facility] 1.2.840.114 [id number] Univers 16:30:00 16:30:00 Visit Jose Angel SCRUGGS 350.1.13.10 it y of [place] [id number] [facility] [address] [place] 2022-10-31 2022-10-31 Outpatient R JOSE ANGEL PERALTA [facility] B [id number] Univers 16:30:00 16:13:04 JOSE ANGEL PERALTA itrigo [facility] 2022-10-30 2022-10-30 Outpatient R JOSE ANGEL PERALTA [facility] B [id number] Univers 18:05:11 23:59:00 JOSE ANGEL PERALTA ity [facility] 2022-10-30 2022-10-30 [facility] 1.2.840.114 [id number] Univers 18:05:11 23:59:00 Encounter Jose Angel [facility] 350.1.13.10 ity of [place] 4.2.7.2.686 [facility] [phone] [facility] [address] [place] 2022-10-27 2022-10-27 Telemedici Prisca Vilchis [facility] 1.2.8 40.114 [id number] Univers 10:30:00 10:30:00 ne Visit Cyrus Shultz SPARES SCHEDULER 350.1.13.10 ity of [facility] 4.2.7.2.686 [place] as MATERNAL [phone] Med ical & CHILD [address] [place] [address] 2022-10-27 2022-10-27 Outpatient R CYRUS SHULTZ [facility] [id number] Univers 10:30:00 10:23:21 ity of [facility] 2022-10-25 2022-10-25 Telephone [facility] 1.2.840.11 [id number] Univers 00:00:00 00:00:00 Jose Angel SCRUGGS 350.1.13.10 it y of WOMEN'S 4.2.7.2.686 [facility] [id number] [facility] [address] 2022-10-25 2022-10-25 Orders Doctor AMBREEN 1.2.840.114 [id number] Univers 00:00:00 00:00:00 Only Unassigned, DONY 350.1.13.10 ity of [place] [facility] 4.2.7.2.686 Elan as [phone] [facility] [address] 2022-10-20 2022-10-20 Telephone [facility] 1.2.840.11 [id number] Univers 00:00:00 00:00:00 Jose Angel SCRUGGS 350.1.13.10 it y [place] [id number] [address] 2022-10-18 2022-10-18 Mooner Valerie [facility] Main [facility] 1.2.8 40.114 [id number] Univers 11:30:00 11:45:00 Visit Jose Angel Peralta 350.1.13. 10 ity [facility] 4.2.7.2.[place] [id number] Ga dical [address] 2022-10-18 2022-10-18 Outpatient R JOSE ANGEL PERALTA [facility] B [id number] Univers 10:00:00 10:16:19 JOSE ANGEL PERALTA ity [facility] 2022-10-18 2022-10-18 Office Yaquelin [facility] 1.2.840.114 [id number] Univers 10:00:00 10:16:19 Visit Jose Angel SCRUGGS 350.1.13.10 it y [place] [id number] [address] 2022-10-18 2022-10-18 Orders Doctor CROOK 1.2.840.114 [id number] Univers 00:00:00 00:00:00 Only Unassigned, DONY 350.1.13.10 ity of [place] [facility] 4.2.7.2.686 [place] as [phone] [place] [address] Branch 2022 2022 Outpatient DICLEMENTE_ GAURAV NOLASCO [address] [place] 00:00:00 00:00:00 NENITA [facility] 2021-12-22 2021-12-22 Outpatient ISHAN MARION [facility] [id number] Univers 08:30:00 08:30:00 ity of [facility] 2021-12-22 2021-12-22 Outpatient Wendy BENNETT ISHAN [facility] [id number] Univers 08:30:00 08:30:00 ity of [facility] 2021-12-21 2021-12-21 Outpatient ISHAN MARION [facility] [id number] Univers 15:00:00 15:00:00 [facility] 2021-12-17 2021-12-18 Inpatient BETHANY TIWARI, [facility] Neurology [id number] SLE 21:02:00 15:18:00 MARYUL 2021-12-17 2021-12-18 Hospital Brett Ortega [facility] [id number] [facility] 21:02:00 15:18:00 Encounter Edgardo Jacobs [facility] 2021-12-18 2021-12-18 Travel [facility] [id number] [facility] 00:00:00 00:00:00 [facility] 2021-12-14 2021-12-14 Telephone [facility] 1.2.456.199 [id number] Univers 00:00:00 00:00:00 Nila HEALTH 350.1.13.10 it y of [place] 4.2.7.2.686 Elan as BARRON?BLEA [id number] [address] OFFICE [facility] 2021-12-13 2021-12-13 Telephone [facility] [id number] Univers 00:00:00 00:00:00 Nila HEALTH 350.1.13.10 it y of [place] 4.2.7.2.686 Elan as BARRON?BLEA [id number] [address] OFFICE [facility] 2021-12-13 2021-12-13 Telephone [facility] [id number] [id number] Univers 00:00:00 00:00:00 Nila HEALTH 350.1.13.10 it y of [place] 4.2.7.2.686 Elan as BARRON?BLEA [phone] [address] OFFICE [facility] 2021-12-13 2021-12-13 Telephone [facility] [id number] [id number] Univers 00:00:00 00:00:00 Nila HEALTH 350.1.13.10 it y of [facility] 4.2.7.2.686 Elan as BARRON?BLEA [phone] Ga zuleima SCHWARTZ [address] [place] [address] OFFICE [facility] 2021-12-12 2021-12-12 Out[facility] [id number] Univers 16:00:00 16:51:41 NILA angulo [facility] 2021-12-12 2021-12-12 Office [facility] 1.2.840.114 [id number] Univers 16:00:00 16:51:41 Visit Nila [facility] 350.1.13.10 it y of [facility] 4.2.7.2.686 [place]an as BARRON?BLEA [phone] Ga zuleima [address] OFFICE [facility] 2021-12-12 2021-12-12 Outpatient [facility] [id number] Univers 16:00:00 16:51:41 NILA angulo [facility] 2021-12-12 2021-12-12 Letter [facility] 1.2.840.114 [id number] Univers 00:00:00 00:00:00 (Out) Nila [facility] 350.1.13.10 it y of [place] 4.2.7.2.686 Elan as BARRON?BLEA [phone] Ga zuleima [address] 2021-10-12 2021-10-12 Outpatient R ELIECER [facility] [id number] Univers 09:10:00 09:10:00 ZELDA adele [facility] 2021-10-12 2021-10-12 Outpatient R JOHN [facility] [id number] Univers 09:00:00 09:00:00 AIDAN angulo [facility] 2021-10-12 2021-10-12 Imm/Inj Nurse, Adc Pob Immunization [facility] 1.2.840.114 [id number] Univers 09:00:00 09:00:00 Visit Aidan ReynosoSHAKIR 350.1.13 .10 ity of [place].2.[place] [id number] Ga dicmatthias [address] 2021-10-12 2021-10-12 Outpatient R JOHN [facility] [id number] Univers 08:00:00 08:00:00 AIDAN angulo [facility] 2021-09-14 2021-09-14 Outpatient R JOHN [facility] [id number] Univers 09:30:00 09:30:00 AIDAN angulo [facility] 2021-09-14 2021-09-14 Imm/Inj Nurse, Adc Pob Immunization [facility] 1.2.840.114 [id number] Univers 09:01:10 09:01:24 Visit JohnAidanSHAKIR 350.1.13 .10 ity of [place].2.[place] [facility] [id number] [facility] 421 [facility] 2021-08-20 2021-08-20 Reffernando Villegas [facility] 1.2.840.114 [id number] Univers 00:00:00 00:00:00 [facility] 350.1.13.10 it y of [place] 4.2.7.2.686 Elan as BARRON?BLEA [phone] [facility] KNEY [address] MEDICAL OFFICE [facility] 2021-07-29 2021-07-29 Urgent Gisell Villegas [facility] 1.2.840.114 [id number] Univers 10:14:01 10:34:01 Care Unknown, [facility] 350.1.13.10 ity of [place] 4.2.7.2.686 Elan as Barron?Blea [phone] [facility] [address] [place] Medical Office [facility] 2021-07-29 2021-07-29 Outpatient R WATSON [facility] [id number] Univers 10:20:00 10:20:00 ATTENDING ity [facility] 2021-07-21 2021-07-21 Emergency Vanessa Eduardo [facility] 1.2.840.114 [id number] Univers 10:06:00 11:06:00 Josefina Whaley 350.1.13.10 i ty of [place].2.686 [place] [id number] [facility] [address] [place] 2021-07-19 2021-07-19 Orders Doctor CROOK 1.2.840.114 [id number] Univers 00:00:00 00:00:00 Only Unassigned, DONY 350.1.13.10 ity of [place] [facility] 4.2.7.2.686 Elan as [id number] [address] 2021-07-05 2021-07-05 N[facility] 1.2.840.114 [id number] Univers 00:00:00 00:00:00 Zelda Whaley 350.1.13.10 ity of [place] [phone] Ga [facility] 2021-06-02 2021-06-02 Laboratory Lab, [facility] Fam Pob I [facility] 1.2. 840.114 [id number] Univers 20:27:39 20:47:39 Only Ebrahim, [facility] 350.1.13.10 ity of [place] 4.2.7.2.686 [place]an as Professio [id number] [facility] [address] 2021-06-02 2021-06-02 Laboratory Lab, [facility] 1.2.840.114 [id number] 20:27:39 20:47:39 Only Fam Pob I Health 350.1.13.10 [place] 4.2.7.2.686 Professio [id number] [place] [address] [address] [facility] 2021-06-02 2021-06-02 Outpatient R BANDAR [facility] [id number] Univers 20:20:00 20:20:00 RANIA ity of [facility] 2021-06-02 2021-06-02 Outpatient DICLEMENTE_ [facility] [address] [place] 11:05:00 11:05:00 NENITA Za[facility] 2021-06-02 2021-06-02 Orders Doctor CROOK 1.2.840.[id number] [place] [address] 00:00:00 00:00:00 Only Unassigned, DONY 350.1.13.10 ity of [place] [facility]PITAL 4.2.7.2.686 Elan as [phone] [address] 2021-06-02 2021-06-02 Telephone [facility] 1.2.840.114 [id number] Univers 00:00:00 00:00:00 Zelda Whaley [id number] [place] [phone] [address] 2021-06-02 2021-06-02 Orders Doctor AMBREEN 1.2.840.114 [id number] 00:00:00 00:00:00 Only Unassigned, DONY 350.1.13.10 [place] [facility] 4.2.7.2.686 [phone] [facility] 2021-06-02 2021-06-02 [facility] 1.2.840.114 [id number] 00:00:00 00:00:00 Zelda Whaley [id number] [place] [id number] Professio [phone] [address] 2021-01-18 2021-01-18 [facility] 1.2.840.114 [id number] Univers 00:00:00 00:00:00 Outreach Aidan PRIMARY [id number] [facility] [id number] [phone] [facility] [address] 2021-01-18 2021-01-18 Patient John [facility] 1.2.840.114 [id number] 00:00:00 00:00:00 Outreach Aidan PRIMARY [id number] Julio C CARE 4.2.7.2.686 PAVILLION [phone] [id number] 2020-09-15 2020-09-15 Outpatient Teresita PHILLIPS [facility] [id number] [place] 02:40:00 02:40:00 [facility] 2020-05-24 2020-05-24 Outpatient Wendy FREEMAN [facility] [id number] [facility] 08:40:00 08:40:00 ZELDA angulo [facility] 2020-04-14 2020-04-14 Outpatient Teresita PHILLIPS [id number] [place] 05:40:00 05:40:00 0619 Medical Group 2020-04-13 2020-04-13 [facility] [id number] [place] 07:38:00 07:38:00 0616 Medical Group 2020-04-13 2020-04-13 Maia [facility] [place] - [id number] M [place] 00:00:00 00:00:00 Alex Cazares [facility] brina STEINER: [address] [facility] [address], [place] [address] , Ph. [phone] 2020-01-23 2020-03-12 Telemed[facility] 1.2.840.114 [id number] [facility] 11:11:01 16:10:25 ne Visit Matt Jovana [id number] [place] [phone] [place] [address] 2020-01-23 2020-03-12 [facility] 1.2.840.114 [id number] 11:11:01 16:10:25 ne Visit Matt Jovana [id number] [place] 4.2.7.2.686 Professio [phone] [address] 2020-02-23 2020-02-26 Outpatient BRIAN [facility] [id number] [facility] 14:38:00 13:00:00 CYRUS 2020-02-22 2020-02-23 Inpatient U APOLINAR, [facility] [id number] [facility] 19:57:00 13:45:00 CAM 2020-01-30 2020-01-30 [facility]med[facility] 1.2.840.114 [id number] [facility] 08:10:50 15:55:51 ne Visit Matt Jovana [id number] [place] [phone] [place] dical [address] 2020-01-30 2020-01-30 Outpatient Wendy FOSTER, [facility] [id number] [facility] 10:45:00 10:45:00 MATT angulo [facility] 2020-01-27 2020-01-27 Telephone [facility] 1.2.840.114 [id number] Univers 00:00:00 00:00:00 Matt Jovana 350.1.13.10 i [place] [phone] [facility] [address] [facility] 2020-01-27 2020-01-27 Telephone [facility] 1.2.840.114 [id number] Univers 00:00:00 00:00:00 Matt [place] 350.1.13.10 i ty [place] [phone] [facility] [address] [facility] 2020-01-23 2020-01-23 [facility] [id number] Univers 13:15:00 13:15:00 MATT angulo [facility] 2020-01-23 2020-01-23 Telephone [facility] 1.2.840.114 [id number] Univers 00:00:00 00:00:00 Matt Jovana 350.1.13.10 i [place] [phone] [facility] [address] [facility] 2020-01-22 2020-01-22 Telemedici [facility] 1.2.840.114 [id number] Univers 08:40:14 12:05:25 ne Visit Zelda Whaley 350.1.13.10 [place] [phone] [facility] [address] [facility] 2020-01-22 2020-01-22 [id number] Univers 10:40:00 10:40:00 ZELDA angulo [facility] 2019-12-12 2019-12-12 Telephone [facility] 1.2.840.114 [id number] Univers 00:00:00 00:00:00 Zelda Whaley 350.1.13.10 [place] [phone] Ga dical nal [address] [facility] 2019-12-06 2019-12-06 Refill Doctor [facility] 1.2.840.114 [id number] Univers 00:00:00 00:00:00 Unassigned, Jovana 350.1.13.10 ity of [place] [phone] [facility] [facility] 2019-12-06 2019-12-06 Refill Freeman, [facility] 1.2.840.114 [id number] Univers 00:00:00 00:00:00 Zelda Alisia [place] 350.1.13.10 ity of [place] [phone] [facility] [address] [facility] 2019-10-14 2019-10-14 Outpatient [facility] [id number] [place] 12:28:00 12:28:00 [facility] Results Test Description Test Time Test Comments Results Result Comments Source POCT TEST 2022-12-29 15:22:00 Test Item Value Reference Range Interpretation Comme nts POCT PREG (test code = 1605) Negative On board controls acceptable with C Line (test code = 3574) Yes POCT PREG LOT # (test code = 3575) POCT PREG TEST DATE (test code = 3576) [facility] [id number] 15:22:00 Test Item Value Reference Range Interpretation Comments POCT PREG (test code = 1605) Negative On board controls acceptable with C Yes Line (test code = 3574) POCT PREG LOT # (test code = 3575) POCT PREG TEST DATE (test code = 3576) [facility] [id number] 15:22:00 Test Item Value Reference Range Interpretation Comments POCT PREG (test code = 1605) Negative On board controls acceptable with C Yes Line (test code = 3574) POCT PREG LOT # (test code = 3575) POCT PREG TEST DATE (test code = 3576) [facility] [id number] 22:27:00 Test Item Value Reference Range Interpretation Comments POCT PREG (test code = 1605) Negative On board controls acceptable with C Yes Line (test code = 3574) POCT PREG LOT # (test code = 3575) POCT PREG TEST DATE (test code = 3576) [facility] [id number] 22:27:00 Test Item Value Reference Range Interpretation Comments POCT PREG (test code = 1605) Negative On board controls acceptable with C Yes Line (test code = 3574) POCT PREG LOT # (test code = 3575) POCT PREG TEST DATE (test code = 3576) [facility] [id number] 17:37:52 Test Item Value Reference Range Interpretation Comments WBC (test code = See_Comment [Automated 1390-2) message] The sy stem which generated this result transmitted reference range : 4.30 - 11.10 10*3/?L. The reference range was not used to interpret this result as normal/abnormal . RBC (test code = See_Comment [Automated 289-8) message] The sy stem which generated this [...] RDW-SD (test code = 45.0 fL 39.0-49.9 77776-7) RDW-CV (test code = 13.5 % 12.0-15.5 788-0) PLT (test code = See_Comment [Automated 777-3) message] The sy stem which generated this result transmitted reference range : 166 - 358 10*3/ ?L. The reference r flaquito was not used to interpret this result as normal/abnormal . MPV (test code = 10.5 fL 9.5-12.9 69909-5) NRBC/100 WBC (test See_Comment [Automat ed code = 4150850272) message] The system which generated this result transmitted reference range : 0.0 - 10.0 /100 WBCs. The refer ence range was not u sed to interpret th is result as normal/abnormal . NRBC x10^3 (test code See_Comment [Auto mated = [id number]) message] The s ystem which generated this result transmitted reference range : 10*3/?L. The reference range was not used to interpret this result as normal/abnormal . GRAN MAT (NEUT) % 50.6 % (test code = 770-8) IMM GRAN % (test code 0.50 % = 4428315224) LYMPH % (test code = 39.9 % 736-9) MONO % (test code = 7.3 % 5905-5) EOS % (test code = 1.4 % 713-8) BASO % (test code = 0.3 % 706-2) GRAN MAT x10^3(ANC) 4.40 10*3/uL 1.88-7.09 (test code = 8111085938) IMM GRAN x10^3 (test 0.04 10*3/uL 0.00-0.06 code = 9182589433) LYMPH x10^3 (test code 3.46 10*3/uL 1.32-3.29 H = 731-0) MONO x10^3 (test code 0.63 10*3/uL 0.33-0.92 = 742-7) EOS x10^3 (test code = 0.12 10*3/uL 0.03-0.39 711-2) BASO x10^3 (test code 0.03 10*3/uL 0.01-0.07 = 704-7) Lab Interpretation Abnormal (test code = 53003-4) [facility] (Right Venipuncture) 2021-12-23 06:00:39 Test Item Value Reference Range Interpretation Comments Result (test code = No growth in 5 days 6463-4) [id number] 06:00:39 Test Item Value Reference Range Interpretation Comments CULTURE (BEAKER) (test No growth in 5 days code = 1095) BLOOD [id number] 03:00:36 Test Item Value Reference Range Interpretation Comments CULTURE (BEAKER) (test No growth in 5 days code = 1095) Urinalysis w/Microscopic + Reflex to [id number] 10:45:20 Test Item Value Reference Range Interpretation Comments Color, UA (test Light Yellow code = 5778-6) Clarity, UA (test Clear code = 5767-9) Specific [place], 1.014 1.001-1.035 UA (test code = 5811-5) pH, UA (test code 7.5 5.0-8.0 = 5803-2) Protein, UA (test Negative Negative code = 15999-5) Glucose, UA (test Negative Negative code = 365) Ketones, UA (test Negative Negative code = 2514-8) Bilirubin, UA Negative Negative (test code = 24368-7) Blood, UA (test Negative Negative code = 64805-8) Nitrite, UA (test Negative Negative code = 5802-4) Leukocytes, UA Negative Negative (test code = 5799-2) Urobilinogen, UA 0.2 mg/dL 0.2-1.0 (test code = 79728-0) RBC, UA (test 1 See_Comment [Automated me ssage] code = 15141-8) The system [facility] generated this result transmit aamir reference range : /HPF. The refer ence range was not u sed to interpret th is result as normal/abnormal . WBC, UA (test 1 See_Comment [Automated me ssage] code = 5821-4) The system [facility] generated this result transmit aamir reference range : /HPF. The refer ence range was not u sed to interpret th is result as normal/abnormal . Bacteria, UA Rare (test code = 73707-6) Mucus (test code Rare = 8247-9) Squam Epithel, UA 3 See_Comment [Automate d message] (test code = The system [facility] [place] [address]-5) generated this result transmit aamir reference range : /HPF. The refer ence range was not u sed to interpret th is result as normal/abnormal . Crystals, Urine None Seen (test code = 53049-4) Specimen Source (test code = 8525) SERGIO (test code = Flare Maker ID - SERGIO) [auto]Flare Maker ID - tech [facility]/ REFLEX URINE [id number] 10:45:20 Test Item Value Reference Range Interpretation [...] code = 1521) SOURCE(BEAKER) (test code = 0648) Flare Maker ID - [auto]Flare Maker ID - techBasic metabolic [id number] 04:19:43 Test Item Value Reference Range Interpretation Comments Sodium (test code = 139 meq/L 127-745 8170-2) Potassium (test code = 3.6 meq/L 3.5-5.1 2823-3) Chloride (test code = 108 meq/L 98-107 H 5-0) CO2 (test code = 25 meq/L 22-29 8-9) BUN (test code = 13 mg/dL 7-21 3094-0) Creatinine (test code 0.84 mg/dL 0.57-1.25 = 2160-0) Glucose (test code = 112 mg/dL 70-105 H 2345-7) Calcium (test code = 9.0 mg/dL 8.4-10.2 19485-7) EGFR (test code = 79 mL/min/1.73 [place] [address]-4) NOT ACCURATE CREATININE CLEARANCE IN PREDICTING GLOMERULAR FILTRATION RATE . ESTIMATED GFR I S NOT APPLICABLE FOR DIALYSIS PATIENTS. SERGIO (test code = SERGIO) Flare Maker ID - SHELBY Mireles Lab Interpretation Abnormal (test code = 13302-1) [facility] METABOLIC [id number] 04:19:43 Test Item Value Reference Range Interpretation [...] S NOT APPLICABLE FOR DIALYSIS PATIEN TS. Flare Maker ID - SHELBY MCBC with platelet count + automated [id number] 04:14:48 Test Item Value Reference Range Interpretation Comments WBC (test code = 6690-2) 8.8 See_Comment [A utomated message] The system [employer] generated this result transmitted ref erence range: 3.5 - 10 .5 K/L. The refe rence range was not u sed to interpret this result as normal/abnor mal. RBC (test code = 789-8) 4.06 See_Comment [Au tomated message] The system [employer] generated this result transmitted ref erence range: 3.93 - 5 .22 M/L. The refe rence range was not u sed to interpret this result as normal/abnor mal. MCHC (test code = 786-4) 31.2 See_Comment L [A utomated message] The system [employer] generated this result transmitted ref erence range: [...] See_Comment [Aut omated message] 777-3) The system [employer] generated this result transmitted ref erence range: 150 - 45 0 K/CU MM. The referen ce range was not u sed to interpret this result as normal/abnor mal. MPV (test code = 10.5 fL 9.4-12.3 09098-2) nRBC (test code = 413) 0 See_Comment [Aut omated message] The system [employer] generated this result transmitted ref erence range: [...] See_Comment [Aut omated message] 670) The system [employer] generated this result transmitted ref erence range: 1.56 - 6 .13 K/L. The refe rence range was not u sed to interpret this result as normal/abnor mal. # Lymphs (test code = 4.14 See_Comment H [Auto mated message] 414) The system [employer] generated this result transmitted ref erence range: 1.18 - 3 .74 K/L. The refe rence range was not u sed to interpret this result as normal/abnor mal. # Monos (test code = 0.74 See_Comment H [Autom ated message] 415) The system [employer] generated this result transmitted ref erence range: 0.24 - 0 .36 K/L. The refe rence range was not u sed to interpret this result as normal/abnor mal. # Eos (test code = 416) 0.33 See_Comment [Au tomated message] The system [employer] generated this result transmitted ref erence range: 0.04 - 0 .36 K/L. The refe rence range was not u sed to interpret this result as normal/abnor mal. # Baso (test code = 417) 0.04 See_Comment [A utomated message] The system [employer] generated this result transmitted ref erence range: 0.01 - 0 .08 K/L. The refe rence range was not u sed to interpret this result as normal/abnor mal. Immature 0 % 0-1 Granulocytes-Relative (test code = 2801) Lab Interpretation (test Abnormal code = 25768-6) [facility] W/PLT COUNT & AUTO [id number] 04:14:48 Test Item Value Reference Range Interpretation [...] % 0-1 PERCENT (BEAKER) (test code = 1866)
[2023-06-27] MEDS ORDERED: LEVETIRACETAM 500 MG/5 ML VIAL IV ONE (00:26)
[2023-06-27] MEDS ORDERED: NA CHLORIDE 0.9% 100 ML ONE (00:27)
[2023-06-27] MEDS ORDERED: ONDANSETRON 4 MG/2 ML VIAL ONE ×2 (00:27→00:30)
[2023-06-27] MEDS ORDERED: carBAMazepine 200 MG TAB ONE (00:30)
[2023-06-27 00:49] LABS: Absolute Lymphocytes (CBC) 4.2 K/uL (0.7-4.9); Hematocrit 37.1 % (36.0-45.0); Lymphocytes % 44.4 % (15.3-44.8); MCV 87.2 fL (80-100); MPV 9.1 fL (7.6-11.3); Platelets 279 thou/uL (152-406); RBC Red Blood Cell Count 4.25 M/uL (3.86-4.86)
[2023-06-27 00:59] LABS: Albumin 3.5 g/dL (3.4-5.0); Bilirubin Direct 0.1 mg/dL (0-0.2); Bilirubin Indirect, Calculated 0.2 mg/dL (0.2-0.8); Bilirubin Total 0.3 mg/dL (0.2-1.0); Potassium 3.8 mEq/L (3.5-5.1); Protein, Total 7.2 g/dL (6.4-8.2)
[2023-06-27] MEDS ORDERED: NA CHLORIDE 0.9% 1,000 ML ONE (01:20)
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
[2023-06-27 01:59] VITALS: TEMP 98
[2023-06-27 02:05] VITALS: BP 101/69; O2SAT 98
== END 2023-06-27 01:47 | disposition home or self-care (01) ==
LOC: ER 23:56
DX: G40.409 Other generalized epilepsy and epileptic syndromes, not intractable, without status epilepticus (principal); Z91.148 Patient's other noncompliance with medication regimen for other reason; I10 Essential (primary) hypertension; F41.9 Anxiety disorder, unspecified; Z88.5 Allergy status to narcotic agent; Z88.8 Allergy status to other drugs, medicaments and biological substances
CPT/HCPCS: 85025; 80048; 36415; 82550; 84703; 80076; J1953; J2405 ×2; J7030

== ENCOUNTER 2023-08-22 09:51 | Emergency (ER) | payer OTHER ==
--- OUTSIDE RECORDS SUMMARY | 2023-08-22 10:00 | XMS REPORT | Continuity of Care Document ---
:1990 Author Organization [facility] t Address [address] [facility] [address] [place] [address] Care Team Providers Name Role Phone CARLOS ERNESTINA Primary Care Physician Unavailable ISHAN BENNETT Attending Clinician Unavailable JOSE ANGEL PERALTA Attending Clinician Unavailable JOSE ANGEL PERALTA Attending Clinician Unavailable Ashleigh Mcwilliams MD Attending Clinician NILA VILLAGRAN Attending Clinician Unavailable Dulce Weeks MD Attending Clinician Zelda Knight RN Attending Clinician Unavailable DULCE WEEKS Attending Clinician Unavailable Doctor Unassigned, Jansen Attending Clinician Unavailable Khloe Mayen MA Attending Clinician Unavailable rPisca Vilchis Attending Clinician Unavailable Cyrus Shultz MD Attending Clinician CYRUS SHULTZ Attending Clinician Unavailable Pob, [facility] Main Attending Clinician Unavailable JANIS Attending Clinician Unavailable MARYLU TIWARI Attending Clinician Unavailable Jade STEINER, Brett Attending Clinician Dannielle STEINER, Edgardo Hamilton Attending Clinician [phone] Trevor STEINER, Marylu Rodgers Attending Clinician Amanda REFRIGERATION INSTALLER, Nila Attending Clinician ZELDA FREEMAN Attending Clinician Unavailable AIDAN REYNOSO Attending Clinician Unavailable Nurse, [facility] Pob Immunization Attending Clinician Unavailable Aidan Reynoso DO Attending Clinician Bakari STEINER, Gisell Attending Clinician Unknown, Attending Attending Clinician Unavailable UNKNOWN, ATTENDING Attending Clinician Unavailable Vanessa Marshall Attending Clinician Zelda Freeman MD Attending Clinician [phone] Lab, [facility] Fam Pob I Attending Clinician Unavailable Cedric [...] Expiration Date Janes henriquez [facility] [id number] 2019 [facility] MEDICAID 00:00:00 AYAD VILLASENOR FROM [id number] 2022 [facility] 00:00:00 MEDICAID COMM [id number] 2021 [facility] 00:[facility]00 [facility] [id number] [facility] (MEDICAID REPLACEMENT - HMO) [place] [id number] [place] Problems Condition Condition Condition Status Onset Resolution Last Treating Co mments Source Name Details Category Date Date Treatment Clinician Date Acute Acute Disease Active Univers vaginitis vaginitis 07-24 ity of 00:00: [place] 00 Medical Branch Ingrown Ingrown Disease Active Univers hair hair 07-24 ity of 00:00: [place] [facility] Oral Oral Disease Active Univers contracept contracept 07-24 it y of ghislaine pill ghislaine pill 00:00: [place] surveillan surveillan 00 Me dical ce ce Branch Screening Screening Disease Active Uni vers for for 07-24 ity of malignant malignant 00:00: [place] suresh neoplasm neoplasm 00 Medica l of the of the Branch cervix cervix History of History of Disease Active U nivers epilepsy epilepsy 07-24 ity of 00:00: [place] 00 Medical Branch Morbid Morbid Disease Active Univers obesity obesity 3 ity of with body with body 00:00: [place] mass index mass index 00 Me dical of of Branch 40.0-49.9 40.0-49.9 Screening Screening Disease Active Uni vers examinatio examinatio 11-19 it y of n for n for 00:00: [place] venereal venereal 00 Medica l disease disease Branch Lipid Lipid Disease Active Univers disorder disorder - ity of 00:00: [place] [facility] Thickened Thickened Disease Active Uni vers endometriu endometriu 1-03 it y of m m 00:00: [place] [facility] Menorrhagi Menorrhagi Disease Active U nivers a with a with 03 ity of irregular irregular 00:00: [place] cycle cycle 00 Medical Branch Pain Pain Disease Active 2021-10 Univers pelvic pelvic 2-21 ity of 00:00: [place] [facility] History of History of Disease Active 2021-10 U nivers ovarian ovarian 2-21 ity of cyst cyst 00:00: [place] [facility] Patient Patient Disease Active 2021-10 Univers desires desires 2-21 ity of 00:00: [place] [facility] Vaping Vaping Disease Active 2021-10 Univers 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 ity of dependence dependence 00:00: [place] , , 00 Medical non-tobacc non-tobacc Br anch o product o product BMI BMI Disease Active 2021-10 Univers 40.0-44.9, 40.0-44.9, 2-21 it y of adult adult 00:00: [place] [facility] 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 2-21 it y of y of shape y of shape 00:00: [place] of left of left 00 Medical external external Branch ear ear Status Status Disease Active [facility] epile[facility] epilepticu 2-20 [facility] 00:00: [facility] 00 Center UTI due to UTI due to Disease Active [facility] trichomona trichomona 2-20 [facility] k[facility] s s 00:00: Medical vaginalis vaginalis 00 Cent er Status Status Disease Active Univers epilepticu epilepticu 2-19 it y of s s 00:00: [place] [facility] Branch Epilepsy Epilepsy Disease Recurre [facility] 00:[facility]: [facility] 00 Center Cough Cough Disease Active Univers 2-14 ity of 00:00: [place] [facility] Congestion Congestion Disease Active U nivers of nasal of nasal 2-14 ity of sinus sinus 00:00: [place] [facility] Nausea Nausea Disease Active Univers 2-14 ity of 00:00: [place] [facility] Branch Acute Acute Disease Active Univers otitis otitis 2-14 ity of externa of externa of 00:00: [place] right ear, right ear, 00 Me dical unspecifie unspecifie Br anch d type d type Upper Upper Disease Active Univers respirator respirator 2-14 it y of y tract y tract 00:00: [place] infection, infection, 00 Me dical unspecifie unspecifie Br anch d type d type Gastroesop Gastroesop Disease Active U nivers hageal hageal 2-14 ity of reflux reflux 00:00: [place] disease disease 00 Medical without without Branch esophagiti esophagiti s s BMI BMI Disease Active Univers 38.0-38.9, 38.0-38.9, 9-27 it y of adult adult 00:00: [place] [facility] Irregular Irregular Disease Active Uni vers menstrual menstrual 3-12 ity of cycle cycle 00:00: [place] [facility] Asthma, Asthma, Disease Active Univers [...] 6-24 it y of on on 00:00: [place] 00 Medical Branch Other Other Disease Active [...] Pain of Disease Active Univers upper upper 24 ity of abdomen abdomen 00:00: [place] 00 Medical Branch Allergies, Adverse Reactions, Alerts Allergy Allergy Status Severity Reaction(s) Onset Inactive Treating Comm ents Source Name Type Date Date Clinician Fospheny Propensi Active [facility]ching [facility] adverse 00[facility]00: Medical reaction 00 Center s Carbamaz Propensi Active Shortness Of [facility] epine ty to Breath, 2-19 [facility] adverse Itching, 00:00: Medical reaction Rash 00 [place] CARBAMAZ DRUG Active High ITCHING Univers EPINE INGREDI 2-19 ity of 00:00: [place] [facility] Branch FOSPHENY DRUG Active ITCHING Univers TOIN INGREDI 2-19 ity of 00:00: [place] 00 Medical Branch CARBAMAZ Allergy Active High [...] Univers C INGREDI 04-20 ity of 00:00: [place] 00 Medical Branch Ketorola Propensi Active Shortness of Can shay e Univers c ty to Breath 04-20 aspirin ity of adverse 00:00: and [place] reaction 00 ibuprofen Medic al s without Branch problem. KETOROLA Allergy Active High Hives [facility]23 [facility] Social History Social Habit Start Date Stop Date Quantity Comments Source History of tobacco 2012-04-20 Cigarette Smoker University of use 00:00:00 [facility] Sexual orientation Univer sity [facility] History SDOH [facility] Alcohol Std Drinks Medica l Center History SDOH [facility] Alcohol Binge Medical Jatin[address] ter History SDOH [facility] Alcohol Comment Medical C enter Exposure to 2022-12-22 2023-01-01 Not sure University of SARS-CoV-2 (event) 00:00:00 11:43:00 [facility] Alcohol intake 2021-12-18 2021-12-[address] [facility] 00:00:00 00:00:00 non-drinker Medical Cente r (finding) History SDOH 2021-12-18 2021-12-[address] [facility] Alcohol Frequency 00:00:00 00:00:00 Medical [place] History of Social 2021-07-29 2021-07-29 Univers ity of function 00:00:00 00:00:00 [facility] Tobacco use and 2019-01-07 2019-01-07 Smokeless Universit y of exposure 00:00:00 00:00:00 tobacco non-user [facility] Tobacco Comment 2019-01-07 2019-01-07 3-4 ciggs a day Univ ersity of 00:00:00 00:00:00 [facility] Sex Assigned At [address] [facility] 00:00:00 00:00:00 [facility] Center Smoking Status Start Date Stop Date Source Ex-smoker 2022-10-18 00:00:00 2022-10-18 00:00:00 Universi ty [facility] Never smoked tobacco [facility] Light tobacco smoker 2019-01-07 00:00:00 Univers ity of [facility] Medications Ordered Filled Start Stop Current Ordering Indication Dosage Frequency Signature Comments Components Source Medication Medication Date Date Medication? Clinician (SIG) Name Name metroNIDAZO 2022- Yes [id number] 500mg Take 1 Univers LE (FLAGYL) 9-29 10-05 tablet by it y of 500 mg 00:00: 04:59 mouth in [place] tablet 00 :00 the Medical morning Branch and 1 tablet in the evening. Do all this for 5 days. sumatriptan Yes Take by Uni vers succinate 9-26 mouth. ity of (IMITREX 14:43: [place] ORAL) Medical Branch sumatriptan Yes Take by Uni vers succinate 9-26 mouth. ity of (IMITREX 14:43: [place] ORAL) 28 Medical Branch sumatriptan 0 Yes Take by Uni vers succinate 9-26 mouth. ity of (IMITREX 14:43: [place] ORAL) 28 Medical Branch sumatriptan Yes Take by Uni vers succinate 9-26 mouth. ity of (IMITREX 14:43: [place] ORAL) Medical Branch levonorgest Yes [id number] 1{tbl} Take 1 Univers rel-ethinyl 9-26 tablet by ity of estradiol 00:00: [place] 0.[place] mg-30 00 the [facility] [place] morning. Branch per tablet fluconazole 2022-0 Yes [id number] 200mg Take 1 Univers 200 mg 9-26 tablet by ity of tablet 00:00: mouth [place] 00 every 3 Medical (three) Branch days. triamcinolo 2022-0 Yes [id number] Apply to [facility] 07-24 area(s) 2 ity of acetonide 00:00: (two) [place] 0.1 % cream 00 times Medical daily. Branch levonorgest 0 Yes [id number] 1{tbl} Take 1 Univers rel-ethinyl 9-26 tablet by ity of estradiol 00:00: [place] 0.[place] mg-30 00 the Medical [facility] [place] [place] morning. Branch per tablet fluconazole 2022-0 Yes [id number] 200mg Take 1 Univers 200 mg 9-26 tablet by ity of tablet 00:00: mouth [place] 00 every 3 Medical (three) Branch days. triamcinolo 2022-0 Yes [id number] Apply to [facility] 07-24 area(s) 2 ity of acetonide 00:00: (two) [place] 0.1 % cream 00 times Medical daily. Branch levonorgest 2022-0 Yes [id number] 1{tbl} Take 1 Univers rel-ethinyl 9-26 tablet by ity of estradiol 00:00: [facility] [place] [facility] the Medical mcg (91) morning. Branch per tablet fluconazole 2022-0 Yes [id number] 200mg Take 1 Univers 200 mg 9-26 tablet by ity of tablet 00:00: mouth [place] 00 every 3 Medical (three) Branch days. triamcinolo 2022-0 Yes [id number] Apply to Univers ne 9-26 area(s) 2 ity of acetonide 00:00: (two) [place] 0.1 % cream 00 times Medical daily. Branch omeprazole 2022-0 Yes Univers 40 mg 9-24 ity of capsule 00:00: [place] 00 Medical Branch omeprazole 2022-0 Yes Univers 40 mg 9-24 ity of capsule 00:00: [place] 00 Medical Branch omeprazole 2022-0 Yes Univers 40 mg 9-24 ity of capsule 00:00: [place] 00 Medical Branch valsartan-h 2022-0 Yes 1{tbl} Take 1 Un brad ydrochlorot 8-29 tablet by ity of hiazide 00:00: mouth in [place] 160-25 mg 00 the Medical per tablet morning. Branc h valsartan-h 2022-0 Yes 1{tbl} Take 1 Un brad ydrochlorot 8-29 tablet by ity of hiazide 00:00: mouth in [place] 160-25 mg 00 the Medical per tablet morning. Branc h valsartan-h 2022-0 Yes 1{tbl} Take 1 Un brad ydrochlorot 8-29 tablet by ity of hiazide 00:00: mouth in [place] 160-25 mg 00 the Medical per tablet morning. [facility] furosemide 2022-0 Yes 40mg Take 1 Unive rs 40 mg 8-24 tablet by ity of tablet 00:00: mouth in [place] 00 the Medical morning. Branch furosemide 2022-0 Yes 40mg Take 1 Unive rs 40 mg 8-24 tablet by ity of tablet 00:00: mouth in [place] 00 the Medical morning. Branch furosemide 2022-0 Yes 40mg Take 1 Unive rs 40 mg 8-24 tablet by ity of tablet 00:00: mouth in [place] 00 the Medical morning. Branch OZEMPIC Yes INJECT 0.5 Univ ers 0.25 mg or 7-03 MG ity of 0.5 mg (2 00:00: SUBCUTANEO [place] mg/3 mL) 00 USLY EVERY Medic al PnIj WEEK FOR Branch 28 DAYS. OZEMPIC Yes INJECT 0.5 Univ ers 0.25 mg or 7-03 MG ity of 0.5 mg (2 00:00: SUBCUTANEO [place] mg/3 mL) 00 USLY EVERY Medic al PnIj WEEK FOR Branch 28 DAYS. OZEMPIC Yes INJECT 0.5 Univ ers 0.25 mg or 7-03 MG ity of 0.5 mg (2 00:00: SUBCUTANEO [place] mg/3 mL) 00 USLY EVERY Medic al PnIj WEEK FOR Branch 28 DAYS. ibuprofen 2022- No [id number] 600mg U nivers (IBU) 3-03 03-04 ity of tablet 600 16:15: 04:14 [place] mg 00 :00 Medical Branch Norethindro 0 Yes [id number] 1{tbl} Take 1 Univers ne 1-18 tablet by ity of Acet-Ethiny 00:00: mouth in [place] l Est 00 the Medical ( morning. Branch ,) 1.5-30 mg-mcg per tablet ibuprofen 2022-0 Yes [id number] 800mg Take 1 Univers 800 mg 1-18 tablet by ity of tablet 00:00: mouth [place] 00 every 6 Medical (six) Branch hours as needed for Pain (scale 4-6). Norethindro 0 Yes [id number] 1{tbl} Take 1 Univers ne 1-18 tablet by ity of Acet-Ethiny 00:00: mouth in [place] l Est 00 the Medical (. Branch ,) 1.5-30 mg-mcg per tablet ibuprofen 0 Yes [id number] 800mg Take 1 Univers 800 mg 1-18 tablet by ity of tablet 00:00: mouth [place] 00 every 6 Medical (six) Branch hours as needed for Pain (scale 4-6). Norethindro 2022-0 Yes [id number] 1{tbl} Take 1 Univers ne 1-18 tablet by ity of Acet-Ethiny 00:00: mouth in [place] l Est 00 the Medical (. Branch ,) 1.5-30 mg-mcg per tablet ibuprofen 2022-0 Yes [id number] 800mg Take 1 Univers 800 mg 1-18 tablet by ity of tablet 00:00: mouth [place] 00 every 6 Medical (six) Branch hours as needed for Pain (scale 4-6). Norethindro 2022-0 Yes [id number] 1{tbl} Take 1 Univers ne 1-18 tablet by ity of Acet-Ethiny 00:00: mouth in [place] l Est 00 the Medical (. Branch ,) 1.5-30 mg-mcg per tablet ibuprofen 2022-0 Yes [id number] 800mg Take 1 Univers 800 mg 1-18 tablet by ity of tablet 00:00: mouth [place] 00 every 6 Medical (six) Branch hours as needed for Pain (scale 4-6). Norethindro 2022-0 Yes [id number] 1{tbl} Take 1 Univers ne 1-18 tablet by ity of Acet-Ethiny 00:00: mouth in [place] l Est 00 the Medical (. Branch ,) 1.5-30 mg-mcg per tablet ibuprofen 2022-0 Yes [id number] 800mg Take 1 Univers 800 mg 1-18 tablet by ity of tablet 00:00: mouth [place] 00 every 6 Medical (six) Branch hours as needed for Pain (scale 4-6). Norethindro 3-0 Yes [id number] 1{tbl} Take 1 Univers ne 1-18 tablet by ity of Acet-Ethiny 00:00: mouth in [place] l Est 00 the Medical (. Branch ,) 1.5-30 mg-mcg per tablet ibuprofen 2022-0 Yes [id number] 800mg Take 1 Univers 800 mg 1-18 tablet by ity of tablet 00:00: mouth [place] 00 every 6 Medical (six) Branch hours as needed for Pain (scale 4-6). Norethindro 2022-0 Yes [id number] 1{tbl} Take 1 Univers ne 1-18 tablet by ity of Acet-Ethiny 00:00: mouth in [place] l Est 00 the Medical (. Branch ,) 1.5-30 mg-mcg per tablet ibuprofen 2022-0 Yes [id number] 800mg Take 1 Univers 800 mg 1-18 tablet by ity of tablet 00:00: mouth [place] 00 every 6 Medical (six) Branch hours as needed for Pain (scale 4-6). Norethindro 2022-0 Yes [id number] 1{tbl} Take 1 Univers ne 1-18 tablet by ity of Acet-Ethiny 00:00: mouth in [place] l Est 00 the Medical (. Branch ,) 1.5-30 mg-mcg per tablet ibuprofen 2022-0 Yes [id number] 800mg Take 1 Univers 800 mg 1-18 tablet by ity of tablet 00:00: mouth [place] 00 every 6 Medical (six) Branch hours as needed for Pain (scale 4-6). Norethindro 2022-0 Yes [id number] 1{tbl} Take 1 Univers ne 1-18 tablet by ity of Acet-Ethiny 00:00: mouth in [place] l Est 00 the Medical (. Branch ,) 1.5-30 mg-mcg per tablet ibuprofen 2022-0 Yes [id number] 800mg Take 1 Univers 800 mg 1-18 tablet by ity of tablet 00:00: mouth [place] 00 every 6 Medical (six) Branch hours as needed for Pain (scale 4-6). Norethindro 3-0 Yes [id number] 1{tbl} Take 1 Univers ne 1-18 tablet by ity of Acet-Ethiny 00:00: mouth in [place] l Est 00 the Medical (. Branch ,) 1.5-30 mg-mcg per tablet ibuprofen 2022-0 Yes [id number] 800mg Take 1 Univers 800 mg 1-18 tablet by ity of tablet 00:00: mouth [place] 00 every 6 Medical (six) Branch hours as needed for Pain (scale 4-6). Norethindro 2023-0 Yes [id number] 1{tbl} Take 1 Univers ne 1-18 tablet by ity of Acet-Ethiny 00:00: mouth in [place] l Est 00 the Medical (. Branch ,) 1.5-30 mg-mcg per tablet ibuprofen 2022-0 Yes [id number] 800mg Take 1 Univers 800 mg 1-18 tablet by ity of tablet 00:00: mouth [place] 00 every 6 Medical (six) Branch hours as needed for Pain (scale 4-6). Norethindro 2023-0 Yes [id number] 1{tbl} Take 1 Univers ne 1-18 tablet by ity of Acet-Ethiny 00:00: mouth in [place] l Est 00 the Medical (. Branch ,) 1.5-30 mg-mcg per tablet ibuprofen 2022-0 Yes [id number] 800mg Take 1 Univers 800 mg 1-18 tablet by ity of tablet 00:00: mouth [place] 00 every 6 Medical (six) Branch hours as needed for Pain (scale 4-6). Norethindro 3-0 Yes [id number] 1{tbl} Take 1 Univers ne 1-18 tablet by ity of Acet-Ethiny 00:00: mouth in [place] l Est 00 the Medical (. Branch ,) 1.5-30 mg-mcg per tablet ibuprofen 2022-0 Yes [id number] 800mg Take 1 Univers 800 mg 1-18 tablet by ity of tablet 00:00: mouth [place] 00 every 6 Medical (six) Branch hours as needed for Pain (scale 4-6). Norethindro 2023-0 Yes [id number] 1{tbl} Take 1 Univers ne 1-18 tablet by ity of Acet-Ethiny 00:00: mouth in [place] l Est 00 the Medical (IN . Branch ,) 1.5-30 mg-mcg per tablet ibuprofen 2023-0 Yes [id number] 800mg Take 1 Univers 800 mg 1-18 tablet by ity of tablet 00:00: mouth [place] 00 every 6 Medical (six) Branch hours as needed for Pain (scale 4-6). ibuprofen 2023-0 Yes [id number] 800mg Take 1 Univers 800 mg 1-18 tablet by ity of tablet 00:00: mouth [place] 00 every 6 Medical (six) Branch hours as needed for Pain (scale 4-6). ibuprofen 2023-0 Yes [id number] 800mg Take 1 Univers 800 mg 1-18 tablet by ity of tablet 00:00: mouth [place] 00 every 6 Medical (six) Branch hours as needed for Pain (scale 4-6). ibuprofen 2023-0 Yes [id number] 800mg Take 1 Univers 800 mg 1-18 tablet by ity of tablet 00:00: mouth [place] 00 every 6 Medical (six) Branch hours as needed for Pain (scale 4-6). Norethindro 2023-0 2023- No [id number] 1{tbl} Take 1 Univers ne -18 -26 tablet by ity of Acet-Ethiny 00:00: 00:00 mouth in [place] l Est 00 :00 the Medical (LOESTRIN morning. Branch , ,) 1.5-30 mg-mcg per tablet Norethindro 2023-0 2023- No [id number] 1{tbl} Take 1 Univers ne -18 -26 tablet by ity of Acet-Ethiny 00:00: 00:00 mouth [place] l Est 00 :00 the Medical (LOESTRIN morning. Branch .03/27, ,) 1.5-30 mg-mcg per tablet norethindro 2023-0 Yes [id number] .35mg Take 1 Univers ne (ORTHO 1-03 tablet by ity o f MICRONOR) 00:00: [place] 0.35 mg 00 the Medical tablet morning. Branch norethindro 2023-0 Yes [id number] .35mg Take 1 Univers ne (ORTHO 1-03 tablet by ity o f MICRONOR) 00:00: mouth [place] 0.35 mg 00 the Medical tablet morning. Branch norethindro 2023-0 Yes [id number] .35mg Take 1 Univers ne (ORTHO 1-03 tablet by ity o f MICRONOR) 00:00: [place] 0.35 mg 00 the Medical tablet morning. Branch norethindro 2022- No [id number] .35mg Take 1 Univers ne (ORTHO 1-12 27- tablet by ity of MICRONOR) 00:00: 00:00 mouth in [place] 0.35 mg 00 :00 the Medical tablet morning. Jonnathan raines 2022- No [id number] .35mg Take 1 Univers ne (ORTHO 10-31- tablet by ity of MICRONOR) 00:00: 00:00 mouth in [place] 0.35 mg 00 :00 the Medical tablet morning. Jonnathan porterro 2021-10 Yes [id number] .35mg Take 1 Univers ne (ORTHO 2-21 tablet by ity o f MICRONOR) 00:00: [place] 0.35 mg 00 the Medical tablet morning. Jonnathan raines 2021-10 Yes [id number] .35mg Take 1 Univers ne (ORTHO 2-21 tablet by ity o f MICRONOR) 00:00: [place] 0.35 mg 00 the Medical tablet morning. Jonnathan raines 2021-10 Yes [id number] .35mg Take 1 Univers ne (ORTHO 2-21 tablet by ity o f MICRONOR) 00:00: [place] 0.35 mg 00 the Medical tablet morning. Jonnathan raines 2021-10 Yes [id number] .35mg Take 1 Univers ne (ORTHO 2-21 tablet by ity o f MICRONOR) 00:00: [place] 0.35 mg 00 the Medical tablet morning. Jonnathan raines 2021-10 Yes [id number] .35mg Take 1 Univers ne (ORTHO 2-21 tablet by ity o f MICRONOR) 00:00: [place] 0.35 mg 00 the Medical tablet morning. Jonnathan rileyndro 2021-10 Yes [id number] .35mg Take 1 Univers ne (ORTHO 2-21 tablet by ity o f MICRONOR) 00:00: mouth [place] 0.35 mg 00 the Medical tablet morning. Jonnathan raines 2021-10 Yes [id number] .35mg Take 1 Univers ne (ORTHO 2-21 tablet by ity o f MICRONOR) 00:00: [place] 0.35 mg 00 the Medical tablet morning. Jonnathan raines 2021-10 Yes [id number] .35mg Take 1 Univers ne (ORTHO 2-21 tablet by ity o f MICRONOR) 00:00: [place] 0.35 mg 00 the Medical tablet morning. Jonnathan raines 2021-10 Yes [id number] .35mg Take 1 Univers ne (ORTHO 2-21 tablet by ity o f MICRONOR) 00:00: [place] 0.35 mg 00 the Medical tablet morning. Jonnathan raines 2021-10 Yes [id number] .35mg Take 1 Univers ne (ORTHO 2-21 tablet by ity o f MICRONOR) 00:00: [place] 0.35 mg 00 the Medical tablet morning. Jonnathan raines 2021-10- No [id number] .35mg Take 1 Univers ne (ORTHO 2-21 01-22 tablet by ity of MICRONOR) 00:00: 00:00 mouth in [place] 0.35 mg 00 :00 the Medical tablet morning. Jonnathan raines 2021-10- No [id number] .35mg Take 1 Univers ne (ORTHO 2-21 -22 tablet by ity of MICRONOR) 00:00: 00:00 mouth in [place] 0.35 mg 00 :00 the Medical tablet morning. Jonnathan levETIRAcet 2021-0 Yes 500mg Q.5D Take 1 [...] Start twice daily dosing 12/19 AM. HYDROcodone 2021-2021- No 1{tbl} Take [address] -acetaminop -12-20 tablet by Maranda pathak (NORCO 00:00: 23:59 mouth Medic al 5-325) 00 :00 every 8 Center 5-325 mg (eight) per tablet hours as needed (Severe pain) for up to 2 days. Max Daily Amount: 3 tablets methylPREDN 2021-0 Yes [id number] Take by [facility] ISolone 2-15 mouth ity of (MEDROL, 00:00: SEE-INSTRU [place] BAMBI,) 4 mg 00 CTIONS. Medica l tablets follow Branch package directions methylPREDN 2-0 Yes [id number] Take by [employer] ISolone 2-15 mouth ity of (MEDROL, 00:00: SEE-INSTRU [place]AMBI,) 4 mg 00 CTIONS. Medica l tablets follow Branch package directions methylPREDN 2022-0 Yes [id number] Take by Univers ISolone 2-15 mouth ity of (MEDROL, 00:00: SEE-INSTRU [place]AMBI,) 4 mg 00 CTIONS. Medica l tablets follow Branch package directions methylPREDN 2022-0 Yes [id number] Take by Univers ISolone 2-15 mouth ity of (MEDROL, 00:00: SEE-INSTRU [place]AMBI,) 4 mg 00 CTIONS. Medica l tablets follow Branch package directions methylPREDN 2-0 Yes [id number] Take by Univers ISolone 2-15 mouth ity of (MEDROL, 00:00: SEE-INSTRU [place]AMBI,) 4 mg 00 CTIONS. Medica l tablets follow Branch package directions methylPREDN 2022-0 Yes [id number] Take by Univers ISolone 2-15 mouth ity of (MEDROL, 00:00: SEE-INSTRU [place]AMBI,) 4 mg 00 CTIONS. Medica l tablets follow Branch package directions methylPREDN 2022-0 Yes [id number] Take by Univers ISolone 2-15 mouth ity of (MEDROL, 00:00: SEE-INSTRU [place]AMBI,) 4 mg 00 CTIONS. Medica l tablets follow Branch package directions methylPREDN 2022-0 Yes [id number] Take by Univers ISolone 2-15 mouth ity of (MEDROL, 00:00: SEE-INSTRU [place]AMBI,) 4 mg 00 CTIONS. Medica l tablets follow Branch package directions methylPREDN 2022-0 Yes [id number] Take by Univers ISolone 2-15 mouth ity of (MEDROL, 00:00: SEE-INSTRU [place]AMBI,) 4 mg 00 CTIONS. Medica l tablets follow Branch package directions methylPREDN 2022-0 Yes [id number] Take by Univers ISolone 2-15 mouth ity of (MEDROL, 00:00: SEE-INSTRU [place]AMBI,) 4 mg 00 CTIONS. Medica l tablets follow Branch package directions methylPREDN 2022-0 Yes [id number] Take by Univers ISolone 2-15 mouth ity of (MEDROL, 00:00: SEE-INSTRU [place]AMBI,) 4 mg 00 CTIONS. Medica l tablets follow Branch package directions methylPREDN 2022-0 Yes [id number] Take by [facility] ISolone 2-15 mouth ity of (MEDROL, 00:00: SEE-INSTRU [place] BAMBI,) 4 mg 00 CTIONS. Medica l tablets follow Branch package directions methylPREDN 2022-0 Yes [id number] Take by [facility] ISolone 2-15 mouth ity of (MEDROL, 00:00: SEE-INSTRU [place] BAMBI,) 4 mg 00 CTIONS. Medica l tablets follow Branch package directions methylPREDN 2022-0 Yes [id number] Take by [facility] ISolone 2-15 mouth ity of (MEDROL, 00:00: SEE-INSTRU [place]AMBI,) 4 mg 00 CTIONS. Medica l tablets follow Branch package directions methylPREDN 2022-0 Yes [id number] Take by [facility] ISolone 2-15 mouth ity of (MEDROL, 00:00: SEE-INSTRU [place] BAMBI,) 4 mg 00 CTIONS. Medica l tablets follow Branch package directions methylPREDN 2022-0 Yes [id number] Take by [facility] ISolone 2-15 mouth ity of (MEDROL, 00:00: SEE-INSTRU [place]AMBI,) 4 mg 00 CTIONS. Medica l tablets follow Branch package directions methylPREDN 2022-0 Yes [id number] Take by [facility] ISolone 2-15 mouth ity of (MEDROL, 00:00: SEE-INSTRU [place]AMBI,) 4 mg 00 CTIONS. Medica l tablets follow Branch package directions methylPREDN 2022-0 Yes [id number] Take by [facility] ISolone 2-15 mouth ity of (MEDROL, 00:00: SEE-INSTRU [place]AM[place],) 4 mg 00 CTIONS. Medica l tablets follow Branch package directions methylPREDN 2022-0 Yes [id number] Take by [facility] ISolone 2-15 mouth ity of (MEDROL, 00:00: SEE-INSTRU [place]AM[place],) 4 mg 00 CTIONS. Medica l tablets follow Branch package directions methylPREDN 2022-0 Yes [id number] Take by [facility] ISolone 2-15 mouth ity of (MEDROL, 00:00: SEE-INSTRU [place]AM[place],) 4 mg 00 CTIONS. Medica l tablets follow Branch package directions methylPREDN 2022-0 Yes [id number] Take by [facility] ISolone 2-15 mouth ity of (MEDROL, 00:00: SEE-INSTRU [place]AM[place],) 4 mg 00 CTIONS. Medica l tablets follow Branch package directions methylPREDN 2022-0 Yes [id number] Take by [facility] ISolone 2-15 mouth ity of (MEDROL, 00:00: SEE-INSTRU [place],) 4 mg 00 CTIONS. Medica l tablets follow Branch package directions methylPREDN 2022-0 Yes [id number] Take by [facility] ISolone 2-15 mouth ity of (MEDROL, 00:00: SEE-INSTRU [place],) 4 mg 00 CTIONS. Medica l tablets follow Branch package directions methylPREDN 2022-0 Yes [id number] Take by [facility] ISol[facility] 2-15 mouth ity of (MEDROL, 00:00: SEE-INSTRU [place],) 4 mg 00 CTIONS. Medica l tablets follow Branch package directions methylPREDN 2022-0 Yes [id number] Take by [facility] IS[facility] 2-15 mouth ity of (MEDROL, 00:00: SEE-INSTRU [place],) 4 mg 00 CTIONS. Medica l tablets follow Branch package directions methylPREDN 2022-0 Yes [id number] Take by [facility] ISolone 2-15 mouth ity of (MEDROL, 00:00: SEE-INSTRU [place],) 4 mg 00 CTIONS. Medica l tablets follow Branch package directions methylPREDN 2022-0 Yes [id number] Take by [facility] IS[facility] 2-15 mouth ity of (MEDROL, 00:00: SEE-INSTRU [place]AM[place],) 4 mg 00 CTIONS. Medica l tablets follow Branch package directions methylPREDN 2022-0 Yes [id number] Take by [facility] ISolone 2-15 mouth ity of (MEDROL, 00:00: SEE-INSTRU [place],) 4 mg 00 CTIONS. Medica l tablets follow Branch package directions methylPREDN 2022-0 Yes [id number] Take by [facility] 2-15 mouth ity of (MEDROL, 00:00: SEE-INSTRU [place],) 4 mg 00 CTIONS. Medica l tablets follow Branch package directions methylPREDN 2022-0 Yes [id number] Take by [facility] IS[facility] 2-15 mouth ity of (MEDROL, 00:00: SEE-INSTRU [place],) 4 mg 00 CTIONS. Medica l tablets follow Branch package directions methylPREDN 2022-0 Yes [id number] Take by [facility] IS[facility] 2-15 mouth ity of (MEDROL, 00:00: SEE-INSTRU [place],) 4 mg 00 CTIONS. Medica l tablets follow Branch package directions methylPREDN 2022-0 Yes [id number] Take by [facility] IS[facility] 2-15 mouth ity of (MEDROL, 00:00: SEE-INSTRU [place],) 4 mg 00 CTIONS. Medica l tablets follow Branch package directions methylPREDN 2022-0 2022- No [id number] Take by [facility] ISolone 15 12-19 mouth ity of (MEDROL, 00:00: 05:59 SEE-INSTRU [place] BAMBI,) 4 mg 00 :00 CTIONS for Med ical tablets 5 days. Branch follow package directions methylPREDN 2021- No [id number] Take by [facility] ISolone 15 12-13 mouth ity of (MEDROL, 00:00: 00:00 SEE-INSTRU [place] BAMBI,) 4 mg 00 :00 CTIONS for Med ical tablets 5 days. Branch follow package directions omeprazole 2021- No [id number] 40mg Take 1 [facility] 40 mg 2-14 - capsule by ity of capsule 00:00: 05:59 mouth [place] 00 :00 daily for Medical 14 days. Branch omeprazole 2021- No [id number] 40mg Take 1 [facility] 40 mg -14 - capsule by ity of capsule 00:00: 05:59 mouth [place] 00 :00 daily for Medical 14 days. Branch omeprazole 2021- No [id number] 40mg Take 1 [facility] 40 mg 2-14 - capsule by ity of capsule 00:00: 05:59 mouth [place] 00 :00 daily for Medical 14 days. Branch omeprazole 2021- No [id number] 40mg Take 1 [facility] 40 mg 2-14 - capsule by ity of capsule 00:00: 05:59 mouth [place] 00 :00 daily for Medical 14 days. Branch omeprazole 2021- No [id number] 40mg Take 1 [facility] 40 mg 2-14 - capsule by ity of capsule 00:00: 05:59 mouth [place] 00 :00 daily for Medical 14 days. Branch bromphenira 2021- No [id number] 10mL Take 10 mL [facility] mine-pseudo -12-23 by mouth 4 i ty of ephedrine-D 00:00: 05:59 (four) [place] M (BROMFED 00 :00 times Medical DM) 2-30-10 daily as Bran ch mg/5 mL needed for syrup Congestion /Allergies for up to 10 days. ondansetron 2021- No [id number] 4mg Take 1 [facility] (ZOFRAN) 4 12-12 tablet by ity of mg tablet 00:00: 05:59 mouth [place] 00 :00 every 8 Medical (eight) Branch hours as needed for Nausea and Vomiting (N/V) for up to 10 days. ciprofloxac 2021- No [id number] 4[drp] Place 4 [facility] in-dexameth 12-12 [id number] Drops in it y of asone 00:00: 05:59 right ear [place] (CIPRODEX) 00 :00 2 (two) Medica l 0.3-0.1 % times Branch otic drops daily for 10 days. ibuprofen 2021- No [id number] 600mg Take 1 [facility] 600 mg 12-12 [id number] tablet by ity of tablet 00:00: 05:59 mouth [place] 00 :00 every 6 Medical (six) Branch hours as needed for Pain (scale 4-6) for up to 10 days. bromphenira 2021- No [id number] 10mL Take 10 mL [facility] mine-pseudo 12-12 by mouth 4 i ty of ephedrine-D 00:00: 05:59 (four) [place] M (BROMFED 00 :00 times Medical DM) 2-30-10 daily as Bran ch mg/5 mL needed for syrup Congestion /Allergies for up to 10 days. ondansetron 2021- No [id number] 4mg Take 1 [facility] (ZOFRAN) 4 12-12 tablet by ity of mg tablet 00:00: 05:59 mouth [place] 00 :00 every 8 Medical (eight) Branch hours as needed for Nausea and Vomiting (N/V) for up to 10 days. ciprofloxac 2021- No [id number] 4[drp] Place 4 [facility] in-dexameth 12-12 [id number] Drops in it y of asone 00:00: 05:59 right ear [place] (CIPRODEX) 00 :00 2 (two) Medica l 0.3-0.1 % times Branch otic drops daily for 10 days. ibuprofen 2021- No [id number] 600mg Take 1 [facility] 600 mg 12-12 [id number] tablet by ity of tablet 00:00: 05:59 mouth [place] 00 :00 every 6 Medical (six) Branch hours as needed for Pain (scale 4-6) for up to 10 days. bromphenira 2021- No [id number] 10mL Take 10 mL [facility] mine-pseudo 12-12 by mouth 4 i ty of ephedrine-D 00:00: 05:59 (four) [place] M (BROMFED 00 :00 times Medical DM) 2-30-10 daily as Bran ch mg/5 mL needed for syrup Congestion /Allergies for up to 10 days. ondansetron 2021- No [id number] 4mg Take 1 [facility] (ZOFRAN) 4 12-12 tablet by ity of mg tablet 00:00: 05:59 mouth [place] 00 :00 every 8 Medical (eight) Branch hours as needed for Nausea and Vomiting (N/V) for up to 10 days. ciprofloxac 2021- No [id number] 4[drp] Place 4 [facility] in-dexameth 12-12 [id number] Drops in it y of asone 00:00: 05:59 right ear [place] (CIPRODEX) 00 :00 2 (two) Medica l 0.3-0.1 % times Branch otic drops daily for 10 days. ibuprofen 2021- No [id number] 600mg Take 1 [facility] 600 mg 12-12 [id number] tablet by ity of tablet 00:00: 05:59 mouth [place] 00 :00 every 6 Medical (six) Branch hours as needed for Pain (scale 4-6) for up to 10 days. bromphenira 2021- No [id number] 10mL Take 10 mL [facility] mine-pseudo 12-12 by mouth 4 i ty of ephedrine-D 00:00: 05:59 (four) [place] M (BROMFED 00 :00 times Medical DM) 2-30-10 daily as Bran ch mg/5 mL needed for syrup Congestion /Allergies for up to 10 days. ondansetron 2021-2021- No [id number] 4mg Take 1 [facility] (ZOFRAN) 4 12-12 tablet by ity of mg tablet 00:00: 05:59 mouth [place] 00 :00 every 8 Medical (eight) Branch hours as needed for Nausea and Vomiting (N/V) for up to 10 days. ciprofloxac 2021- No [id number] 4[drp] Place 4 [facility] in-dexameth 12-12 [id number] Drops in it y of asone 00:00: 05:59 right ear [place] (CIPRODEX) 00 :00 2 (two) Medica l 0.3-0.1 % times Branch otic drops daily for 10 days. ibuprofen 2021- No [id number] 600mg Take 1 [facility] 600 mg 12-12 [id number] tablet by ity of tablet 00:00: 05:59 mouth [place] 00 :00 every 6 Medical (six) Branch hours as needed for Pain (scale 4-6) for up to 10 days. bromphenira 2021- No [id number] 10mL Take 10 mL [facility] mine-pseudo 12-12 by mouth 4 i ty of ephedrine-D 00:00: 05:59 (four) [place] M (BROMFED 00 :00 times Medical DM) 2-30-10 daily as Bran ch mg/5 mL needed for syrup Congestion /Allergies for up to 10 days. ondansetron 2021- No [id number] 4mg Take 1 [facility] (ZOFRAN) 4 12-12 tablet by ity of mg tablet 00:00: 05:59 mouth [place] 00 :00 every 8 Medical (eight) Branch hours as needed for Nausea and Vomiting (N/V) for up to 10 days. ciprofloxac 2021- No [id number] 4[drp] Place 4 [facility] in-dexameth 12-12 [id number] Drops in it y of asone 00:00: 05:59 right ear [place] (CIPRODEX) 00 :00 2 (two) Medica l 0.3-0.1 % times Branch otic drops daily for 10 days. ibuprofen 2021- No [id number] 600mg Take 1 [facility] 600 mg 12-12 [id number] tablet by ity of tablet 00:00: 05:59 [...] [place] ORAL) Medical Branch cetirizine 2020-10 Yes [id number] 10mg Take 1 U n[facility] (ZYRTEC) 10 0-01 tablet by ity of mg tablet 00:00: mouth [place] 00 daily. Medical Branch azelastine 2020-10 Yes [id number] 1{spray Use 1 [facility] 137 mcg 0-01 } [place] in ity of (0.1 %) 00:00: each [place] nasal spray 00 nostril 2 Med ical (two) Branch times daily. Use in each nostril as directed fluticasone 2020-10 Yes [id number] 1{spray Use 1 [facility] propionate 0-01 } [place] in ity o f 50 00:00: each [place] mcg/actuati 00 nostril Medic al on nasal daily. Branch spray cetirizine 2020-10 Yes [id number] 10mg Take 1 U nivers (ZYRTEC) 10 0-01 tablet by ity of mg tablet 00:00: mouth [place] 00 daily. Medical Branch azelastine 2020-10 Yes [id number] 1{spray Use 1 [facility] 137 mcg 0-01 } [place] in ity of (0.1 %) 00:00: each [place] nasal spray 00 nostril 2 Med ical (two) Branch times daily. Use in each nostril as directed fluticasone 2020-10 Yes [id number] 1{spray Use 1 [facility] propionate 0-01 } [place] in ity o f 50 00:00: each [place] mcg/actuati 00 nostril Medic al on nasal daily. Branch spray cetirizine 2020-10 Yes [id number] 10mg Take 1 U nivers (ZYRTEC) 10 0-01 tablet by ity of mg tablet 00:00: mouth [place] 00 daily. Medical Branch azelastine 2020-10 Yes [id number] 1{spray Use 1 [facility] 137 mcg 0-01 } [place] in ity of (0.1 %) 00:00: each [place] nasal spray 00 nostril 2 Med ical (two) Branch times daily. Use in each nostril as directed fluticasone 2020-10 Yes [id number] 1{spray Use 1 [facility] propionate 0-01 } [place] in ity o f 50 00:00: each [place] mcg/actuati 00 nostril Medic al on nasal daily. Branch spray cetirizine 2020-10 Yes [id number] 10mg Take 1 U nivers (ZYRTEC) 10 0-01 tablet by ity of mg tablet 00:00: mouth [place] 00 daily. Medical Branch azelastine 2020-10 Yes [id number] 1{spray Use 1 [facility] 137 mcg 0-01 } [place] in ity of (0.1 %) 00:00: each [place] nasal spray 00 nostril 2 Med ical (two) Branch times daily. Use in each nostril as directed fluticasone 2020-10 Yes [id number] 1{spray Use 1 [facility] propionate 0-01 } [place] in ity o f 50 00:00: each [place] mcg/actuati 00 nostril Medic al on nasal daily. Branch spray cetirizine 2020-10 Yes [id number] 10mg Take 1 U nivers (ZYRTEC) 10 0-01 tablet by ity of mg tablet 00:00: mouth [place] 00 daily. Medical Branch azelastine 2020-10 Yes [id number] 1{spray Use 1 [facility] 137 mcg 0-01 } [place] in ity of (0.1 %) 00:00: each [place] nasal spray 00 nostril 2 Med ical (two) Branch times daily. Use in each nostril as directed fluticasone 2020-10 Yes [id number] 1{spray Use 1 [facility] propionate 0-01 } [place] in ity o f 50 00:00: each [place] mcg/actuati 00 nostril Medic al on nasal daily. Branch spray cetirizine 2020-10 Yes [id number] 10mg Take 1 U nivers (ZYRTEC) 10 0-01 tablet by ity of mg tablet 00:00: mouth [place] 00 daily. Medical Branch azelastine 2020-10 Yes [id number] 1{spray Use 1 [facility] 137 mcg 0-01 } [place] in ity of (0.1 %) 00:00: each [place] nasal spray 00 nostril 2 Med ical (two) Branch times daily. Use in each nostril as directed fluticasone 2020-10 Yes [id number] 1{spray Use 1 [facility] propionate 0-01 } [place] in ity o f 50 00:00: each [place] mcg/actuati 00 nostril Medic al on nasal daily. Branch spray cetirizine 2020-10 Yes [id number] 10mg Take 1 U nivers (ZYRTEC) 10 0-01 tablet by ity of mg tablet 00:00: mouth [place] 00 daily. Medical Branch azelastine 2020-10 Yes [id number] 1{spray Use 1 [facility] 137 mcg 0-01 } [place] in ity of (0.1 %) 00:00: each [place] nasal spray 00 nostril 2 Med ical (two) Branch times daily. Use in each nostril as directed fluticasone 2020-10 Yes [id number] 1{spray Use 1 [facility] propionate 0-01 } [place] in ity o f 50 00:00: each [place] mcg/actuati 00 nostril Medic al on nasal daily. Branch spray cetirizine 2020-10 Yes [id number] 10mg Take 1 U nivers (ZYRTEC) 10 0-01 tablet by ity of mg tablet 00:00: mouth [place] 00 daily. Medical Branch azelastine 2020-10 Yes [id number] 1{spray Use 1 [facility] 137 mcg 0-01 } [place] in ity of (0.1 %) 00:00: each [place] nasal spray 00 nostril 2 Med ical (two) Branch times daily. Use in each nostril as directed fluticasone 2020-10 Yes [id number] 1{spray Use 1 [facility] propionate 0-01 } [place] in ity o f 50 00:00: each [place] mcg/actuati 00 nostril Medic al on nasal daily. Branch spray cetirizine 2020-10 Yes [id number] 10mg Take 1 U nivers (ZYRTEC) 10 0-01 tablet by ity of mg tablet 00:00: mouth [place] 00 daily. Medical Branch azelastine 2020-10 Yes [id number] 1{spray Use 1 [facility] 137 mcg 0-01 } [place] in ity of (0.1 %) 00:00: each [place] nasal spray 00 nostril 2 Med ical (two) Branch times daily. Use in each nostril as directed fluticasone 2020-10 Yes [id number] 1{spray Use 1 [facility] propionate 0-01 } [place] in ity o f 50 00:00: each [place] mcg/actuati 00 nostril Medic al on nasal daily. Branch spray cetirizine 2020-10 Yes [id number] 10mg Take 1 U nivers (ZYRTEC) 10 0-01 tablet by ity of mg tablet 00:00: mouth [place] 00 daily. Medical Branch azelastine 2020-10 Yes [id number] 1{spray Use 1 [facility] 137 mcg 0-01 } [place] in ity of (0.1 %) 00:00: each [place] nasal spray 00 nostril 2 Med ical (two) Branch times daily. Use in each nostril as directed fluticasone 2020-10 Yes [id number] 1{spray Use 1 [facility] propionate 0-01 } [place] in ity o f 50 00:00: each [place] mcg/actuati 00 nostril Medic al on nasal daily. Branch spray cetirizine 2020-10 Yes [id number] 10mg Take 1 U nivers (ZYRTEC) 10 0-01 tablet by ity of mg tablet 00:00: mouth [place] 00 daily. Medical Branch azelastine 2020-10 Yes [id number] 1{spray Use 1 [facility] 137 mcg 0-01 } [place] in ity of (0.1 %) 00:00: each [place] nasal spray 00 nostril 2 Med ical (two) Branch times daily. Use in each nostril as directed fluticasone 2020-10 Yes [id number] 1{spray Use 1 [facility] propionate 0-01 } [place] in ity o f 50 00:00: each [place] mcg/actuati 00 nostril Medic al on nasal daily. Branch spray cetirizine 2020-10 Yes [id number] 10mg Take 1 U nivers (ZYRTEC) 10 0-01 tablet by ity of mg tablet 00:00: mouth [place] 00 daily. Medical Branch azelastine 2020-10 Yes [id number] 1{spray Use 1 [facility] 137 mcg 0-01 } [place] in ity of (0.1 %) 00:00: each [place] nasal spray 00 nostril 2 Med ical (two) Branch times daily. Use in each nostril as directed fluticasone 2020-10 Yes [id number] 1{spray Use 1 [facility] propionate 0-01 } [place] in ity o f 50 00:00: each [place] mcg/actuati 00 nostril Medic al on nasal daily. Branch spray cetirizine 2020-10 Yes [id number] 10mg Take 1 U nivers (ZYRTEC) 10 0-01 tablet by ity of mg tablet 00:00: mouth [place] 00 daily. Medical Branch azelastine 2020-10 Yes [id number] 1{spray Use 1 [facility] 137 mcg 0-01 } [place] in ity of (0.1 %) 00:00: each [place] nasal spray 00 nostril 2 Med ical (two) Branch times daily. Use in each nostril as directed fluticasone 2020-10 Yes [id number] 1{spray Use 1 [facility] propionate 0-01 } [place] in ity o f 50 00:00: each [place] mcg/actuati 00 nostril Medic al on nasal daily. Branch spray cetirizine 2020-10 Yes [id number] 10mg Take 1 U nivers (ZYRTEC) 10 0-01 tablet by ity of mg tablet 00:00: mouth [place] 00 daily. Medical Branch azelastine 2020-10 Yes [id number] 1{spray Use 1 [facility] 137 mcg 0-01 } [place] in ity of (0.1 %) 00:00: each [place] nasal spray 00 nostril 2 Med ical (two) Branch times daily. Use in each nostril as directed fluticasone 2020-10 Yes [id number] 1{spray Use 1 [facility] propionate 0-01 } [place] in ity o f 50 00:00: each [place] mcg/actuati 00 nostril Medic al on nasal daily. Branch spray cetirizine 2020-10 Yes [id number] 10mg Take 1 U nivers (ZYRTEC) 10 0-01 tablet by ity of mg tablet 00:00: mouth [place] 00 daily. Medical Branch azelastine 2020-10 Yes [id number] 1{spray Use 1 [facility] 137 mcg 0-01 } [place] in ity of (0.1 %) 00:00: each [place] nasal spray 00 nostril 2 Med ical (two) Branch times daily. Use in each nostril as directed fluticasone 2020-10 Yes [id number] 1{spray Use 1 [facility] propionate 0-01 } [place] in ity o f 50 00:00: each [place] mcg/actuati 00 nostril Medic al on nasal daily. Branch spray cetirizine 2020-10 Yes [id number] 10mg Take 1 U nivers (ZYRTEC) 10 0-01 tablet by ity of mg tablet 00:00: mouth [place] 00 daily. Medical Branch azelastine 2020-10 Yes [id number] 1{spray Use 1 [facility] 137 mcg 0-01 } [place] in ity of (0.1 %) 00:00: each [place] nasal spray 00 nostril 2 Med ical (two) Branch times daily. Use in each nostril as directed fluticasone 2020-10 Yes [id number] 1{spray Use 1 [facility] propionate 0-01 } [place] in ity o f 50 00:00: each [place] mcg/actuati 00 nostril Medic al on nasal daily. Branch spray cetirizine 2020-10 Yes [id number] 10mg Take 1 U nivers (ZYRTEC) 10 0-01 tablet by ity of mg tablet 00:00: mouth [place] 00 daily. Medical Branch azelastine 2020-10 Yes [id number] 1{spray Use 1 [facility] 137 mcg 0-01 } [place] in ity of (0.1 %) 00:00: each [place] nasal spray 00 nostril 2 Med ical (two) Branch times daily. Use in each nostril as directed fluticasone 2020-10 Yes [id number] 1{spray Use 1 [facility] propionate 0-01 } [place] in ity o f 50 00:00: each [place] mcg/actuati 00 nostril Medic al on nasal daily. Branch spray cetirizine 2020-10 Yes [id number] 10mg Take 1 U nivers (ZYRTEC) 10 0-01 tablet by ity of mg tablet 00:00: mouth [place] 00 daily. Medical Branch azelastine 2020-10 Yes [id number] 1{spray Use 1 [facility] 137 mcg 0-01 } [place] in ity of (0.1 %) 00:00: each [place] nasal spray 00 nostril 2 Med ical (two) Branch times daily. Use in each nostril as directed fluticasone 2020-10 Yes [id number] 1{spray Use 1 [facility] propionate 0-01 } [place] in ity o f 50 00:00: each [place] mcg/actuati 00 nostril Medic al on nasal daily. Branch spray cetirizine 2020-10 Yes [id number] 10mg Take 1 U nivers (ZYRTEC) 10 0-01 tablet by ity of mg tablet 00:00: mouth [place] 00 daily. Medical Branch azelastine 2020-10 Yes [id number] 1{spray Use 1 [facility] 137 mcg 0-01 } [place] in ity of (0.1 %) 00:00: each [place] nasal spray 00 nostril 2 Med ical (two) Branch times daily. Use in each nostril as directed fluticasone 2020-10 Yes [id number] 1{spray Use 1 [facility] propionate 0-01 } [place] in ity o f 50 00:00: each [place] mcg/actuati 00 nostril Medic al on nasal daily. Branch spray cetirizine 2020-10 Yes [id number] 10mg Take 1 U nivers (ZYRTEC) 10 0-01 tablet by ity of mg tablet 00:00: mouth [place] 00 daily. Medical Branch azelastine 2020-10 Yes [id number] 1{spray Use 1 [facility] 137 mcg 0-01 } [place] in ity of (0.1 %) 00:00: each [place] nasal spray 00 nostril 2 Med ical (two) Branch times daily. Use in each nostril as directed fluticasone 2020-10 Yes [id number] 1{spray Use 1 [facility] propionate 0-01 } [place] in ity o f 50 00:00: each [place] mcg/actuati 00 nostril Medic al on nasal daily. Branch spray cetirizine 2020-10 Yes [id number] 10mg Take 1 U nivers (ZYRTEC) 10 0-01 tablet by ity of mg tablet 00:00: mouth [place] 00 daily. Medical Branch azelastine 2020-10 Yes [id number] 1{spray Use 1 [facility] 137 mcg 0-01 } [place] in ity of (0.1 %) 00:00: each [place] nasal spray 00 nostril 2 Med ical (two) Branch times daily. Use in each nostril as directed fluticasone 2020-10 Yes [id number] 1{spray Use 1 [facility] propionate 0-01 } [place] in ity o f 50 00:00: each [place] mcg/actuati 00 nostril Medic al on nasal daily. Branch spray cetirizine 2020-10 Yes [id number] 10mg Take 1 U nivers (ZYRTEC) 10 0-01 tablet by ity of mg tablet 00:00: mouth [place] 00 daily. Medical Branch azelastine 2020-10 Yes [id number] 1{spray Use 1 [facility] 137 mcg 0-01 } [place] in ity of (0.1 %) 00:00: each [place] nasal spray 00 nostril 2 Med ical (two) Branch times daily. Use in each nostril as directed fluticasone 2020-10 Yes [id number] 1{spray Use 1 [facility] propionate 0-01 } [place] in ity o f 50 00:00: each [place] mcg/actuati 00 nostril Medic al on nasal daily. Branch spray cetirizine 2020-10 Yes [id number] 10mg Take 1 U nivers (ZYRTEC) 10 0-01 tablet by ity of mg tablet 00:00: mouth [place] 00 daily. Medical Branch azelastine 2020-10 Yes [id number] 1{spray Use 1 [facility] 137 mcg 0-01 } [place] in ity of (0.1 %) 00:00: each [place] nasal spray 00 nostril 2 Med ical (two) Branch times daily. Use in each nostril as directed fluticasone 2020-10 Yes [id number] 1{spray Use 1 [facility] propionate 0-01 } [place] in ity o f 50 00:00: each [place] mcg/actuati 00 nostril Medic al on nasal daily. Branch spray cetirizine 2020-10 Yes [id number] 10mg Take 1 U nivers (ZYRTEC) 10 0-01 tablet by ity of mg tablet 00:00: mouth [place] 00 daily. Medical Branch azelastine 2020-10 Yes [id number] 1{spray Use 1 [facility] 137 mcg 0-01 } [place] in ity of (0.1 %) 00:00: each [place] nasal spray 00 nostril 2 Med ical (two) Branch times daily. Use in each nostril as directed fluticasone 2020-10 Yes [id number] 1{spray Use 1 [facility] propionate 0-01 } [place] in ity o f 50 00:00: each [place] mcg/actuati 00 nostril Medic al on nasal daily. Branch spray cetirizine 2020-10 Yes [id number] 10mg Take 1 U nivers (ZYRTEC) 10 0-01 tablet by ity of mg tablet 00:00: mouth [place] 00 daily. Medical Branch azelastine 2020-10 Yes [id number] 1{spray Use 1 [facility] 137 mcg 0-01 } [place] in ity of (0.1 %) 00:00: each [place] nasal spray 00 nostril 2 Med ical (two) Branch times daily. Use in each nostril as directed fluticasone 2020-10 Yes [id number] 1{spray Use 1 [facility] propionate 0-01 } [place] in ity o f 50 00:00: each [place] mcg/actuati 00 nostril Medic al on nasal daily. Branch spray cetirizine 2020-10 Yes [id number] 10mg Take 1 U nivers (ZYRTEC) 10 0-01 tablet by ity of mg tablet 00:00: mouth [place] 00 daily. Medical Branch azelastine 2020-10 Yes [id number] 1{spray Use 1 [facility] 137 mcg 0-01 } [place] in ity of (0.1 %) 00:00: each [place] nasal spray 00 nostril 2 Med ical (two) Branch times daily. Use in each nostril as directed fluticasone 2020-10 Yes [id number] 1{spray Use 1 [facility] propionate 0-01 } [place] in ity o f 50 00:00: each [place] mcg/actuati 00 nostril Medic al on nasal daily. Branch spray cetirizine 2020-10 Yes [id number] 10mg Take 1 U nivers (ZYRTEC) 10 0-01 tablet by ity of mg tablet 00:00: mouth [place] 00 daily. Medical Branch azelastine 2020-10 Yes [id number] 1{spray Use 1 [facility] 137 mcg 0-01 } [place] in ity of (0.1 %) 00:00: each [place] nasal spray 00 nostril 2 Med ical (two) Branch times daily. Use in each nostril as directed fluticasone 2020-10 Yes [id number] 1{spray Use 1 [facility] propionate 0-01 } [place] in ity o f 50 00:00: each [place] mcg/actuati 00 nostril Medic al on nasal daily. Branch spray cetirizine 2020-10 Yes [id number] 10mg Take 1 U nivers (ZYRTEC) 10 0-01 tablet by ity of mg tablet 00:00: mouth [place] 00 daily. Medical Branch azelastine 2020-10 Yes [id number] 1{spray Use 1 [facility] 137 mcg 0-01 } [place] in ity of (0.1 %) 00:00: each [place] nasal spray 00 nostril 2 Med ical (two) Branch times daily. Use in each nostril as directed fluticasone 2020-10 Yes [id number] 1{spray Use 1 [facility] propionate 0-01 } [place] in ity o f 50 00:00: each [place] mcg/actuati 00 nostril Medic al on nasal daily. Branch spray cetirizine 2020-10 Yes [id number] 10mg Take 1 [facility] (ZYRTEC) 10 0-01 tablet by ity of mg tablet 00:00: mouth [place] 00 daily. Medical Branch azelastine 2020-10 Yes [id number] 1{spray Use 1 [facility] 137 mcg 0-01 } [place] in ity of (0.1 %) 00:00: each [place] nasal spray 00 nostril 2 Med ical (two) Branch times daily. Use in each nostril as directed fluticasone 2020-10 Yes [id number] 1{spray Use 1 [facility] propionate 0-01 } [place] in ity o f 50 00:00: each [place] mcg/actuati 00 nostril Medic al on nasal daily. Branch spray cetirizine 2020-10 Yes [id number] 10mg Take 1 [facility] (ZYRTEC) 10 0-01 tablet by ity of mg tablet 00:00: mouth [place] 00 daily. Medical Branch azelastine 2020-10 Yes [id number] 1{spray Use 1 [facility] 137 mcg 0-01 } [place] in ity of (0.1 %) 00:00: each [place] nasal spray 00 nostril 2 Med ical (two) Branch times daily. Use in each nostril as directed fluticasone 2020-10 Yes [id number] 1{spray Use 1 [facility] propionate 0-01 } [place] in ity o f 50 00:00: each [place] mcg/actuati 00 nostril Medic al on nasal daily. Branch spray cetirizine 2020-10 Yes [id number] 10mg Take 1 [facility] (ZYRTEC) 10 0-01 tablet by ity of mg tablet 00:00: mouth [place] 00 daily. Medical Branch azelastine 2020-10 Yes [id number] 1{spray Use 1 [facility] 137 mcg 0-01 } [place] in ity of (0.1 %) 00:00: each [place] nasal spray 00 nostril 2 Med ical (two) Branch times daily. Use in each nostril as directed fluticasone 2020-10 Yes [id number] 1{spray Use 1 [facility] propionate 0-01 } [place] in ity o f 50 00:00: each [place] mcg/actuati 00 nostril Medic al on nasal daily. Branch spray cetirizine 2020-10 Yes [id number] 10mg Take 1 [facility] (ZYRTEC) 10 0-01 tablet by ity of mg tablet 00:00: mouth [place] 00 daily. Medical Branch azelastine 2020-10 Yes [id number] 1{spray Use 1 [facility] 137 mcg 0-01 } [place] in ity of (0.1 %) 00:00: each [place] nasal spray 00 nostril 2 Med ical (two) Branch times daily. Use in each nostril as directed fluticasone 2020-10 Yes [id number] 1{spray Use 1 [facility] propionate 0-01 } [place] in ity o f 50 00:00: each [place] mcg/actuati 00 nostril Medic al on nasal daily. Branch spray cetirizine 2020-10 Yes [id number] 10mg Take 1 [facility] (ZYRTEC) 10 0-01 tablet by ity of mg tablet 00:00: mouth [place] 00 daily. Medical Branch azelastine 2020-10 Yes [id number] 1{spray Use 1 [facility] 137 mcg 0-01 } [place] in ity of (0.1 %) 00:00: each [place] nasal spray 00 nostril 2 Med ical (two) Branch times daily. Use in each nostril as directed fluticasone 2020-10 Yes [id number] 1{spray Use 1 [facility] propionate 0-01 } [place] in ity o f 50 00:00: each [place] mcg/actuati 00 nostril Medic al on nasal daily. Branch spray cetirizine 2020-10 Yes [id number] 10mg Take 1 [facility] (ZYRTEC) 10 0-01 tablet by ity of mg tablet 00:00: mouth [place] 00 daily. Medical Branch azelastine 2020-10 Yes [id number] 1{spray Use 1 [facility] 137 mcg 0-01 } [place] in ity of (0.1 %) 00:00: each [place] nasal spray 00 nostril 2 Med ical (two) Branch times daily. Use in each nostril as directed fluticasone 2020-10 Yes [id number] 1{spray Use 1 [facility] propionate 0-01 } [place] in ity o f 50 00:00: each [place] mcg/actuati 00 nostril Medic al on nasal daily. Branch spray cetirizine 2020-10 Yes [id number] 10mg Take 1 [facility] (ZYRTEC) 10 0-01 tablet by ity of mg tablet 00:00: mouth [place] 00 daily. Medical Branch azelastine 2020-10 Yes [id number] 1{spray Use 1 [facility] 137 mcg 0-01 } [place] in ity of (0.1 %) 00:00: each [place] nasal spray 00 nostril 2 Med ical (two) Branch times daily. Use in each nostril as directed fluticasone 2020-10 Yes [id number] 1{spray Use 1 [facility] propionate 0-01 } [place] in ity o f 50 00:00: each [place] mcg/actuati 00 nostril Medic al on nasal daily. Branch spray cetirizine 2020-10 Yes [id number] 10mg Take 1 [facility] (ZYRTEC) 10 0-01 tablet by ity of mg tablet 00:00: mouth [place] 00 daily. Medical Branch azelastine 2020-10 Yes [id number] 1{spray Use 1 [facility] 137 mcg 0-01 } [place] in ity of (0.1 %) 00:00: each [place] nasal spray 00 nostril 2 Med ical (two) Branch times daily. Use in each nostril as directed fluticasone 2020-10 Yes [id number] 1{spray Use 1 [facility] propionate 0-01 } [place] in ity o f 50 00:00: each [place] mcg/actuati 00 nostril Medic al on nasal daily. Branch spray bromphenira 2020-10- No [id number] 5mL Take 5 mL [facility] mine-pseudo 0-01 02-14 by mouth 4 i ty of ephedrine-D 00:00: 00:00 (four) [place] as M (BROMFED 00 :00 times Medical DM) 2-30-10 daily as Bran ch mg/5 mL needed for syrup Congestion /Allergies . ibuprofen 2021- No [id number] 600mg Take 1 [facility] 600 mg 9-14 tablet by ity of tablet 00:00: 00:00 mouth [place] 00 :00 every 6 Medical (six) Branch hours as needed for Pain (scale 4-6). benzonatate Yes [id number] 100mg Take 1 [facility] 100 mg 9-10 capsule by ity of capsule 00:00: mouth [place] (three) Medical times Branch daily as needed for Cough. benzonatate Yes [id number] 100mg Take 1 [facility] 100 mg 9-10 capsule by ity of capsule 00:00: mouth [place] (three) Medical times Branch daily as needed for Cough. benzonatate Yes [id number] 100mg Take 1 [facility] 100 mg 9-10 capsule by ity of capsule 00:00: mouth 3 [place] (three) Medical times Branch daily as needed for Cough. benzonatate Yes [id number] 100mg Take 1 [facility] 100 mg 9-10 capsule by ity of capsule 00:00: mouth [place] (three) Medical times Branch daily as needed for Cough. benzonatate Yes [id number] 100mg Take 1 [facility] 100 mg 9-10 capsule by ity of capsule 00:00: mouth 3 [place] 00 (three) Medical times Branch daily as needed for Cough. benzonatate 2020-0 Yes [id number] 100mg Take 1 [facility] 100 mg 9-10 capsule by ity of capsule 00:00: mouth (three) Medical times Branch daily as needed for Cough. benzonatate 1-0 Yes [id number] 100mg Take 1 [facility] 100 mg 9-10 capsule by ity of capsule 00:00: mouth (three) Medical times Branch daily as needed for Cough. benzonatate 2020-0 Yes [id number] 100mg Take 1 [facility] 100 mg 9-10 capsule by ity of capsule 00:00: mouth (three) Medical times Branch daily as needed for Cough. benzonatate 2020-0 Yes [id number] 100mg Take 1 [facility] 100 mg 9-10 capsule by ity of capsule 00:00: mouth (three) Medical times Branch daily as needed for Cough. benzonatate 2020-0 Yes [id number] 100mg Take 1 [facility] 100 mg 9-10 capsule by ity of capsule 00:00: mouth (three) Medical times Branch daily as needed for Cough. benzonatate 2020-0 Yes [id number] 100mg Take 1 [facility] 100 mg 9-10 capsule by ity of capsule 00:00: mouth (three) Medical times Branch daily as needed for Cough. benzonatate 2020-0 Yes [id number] 100mg Take 1 [facility] 100 mg 9-10 capsule by ity of capsule 00:00: mouth (three) Medical times Branch daily as needed for Cough. benzonatate 2020-0 Yes [id number] 100mg Take 1 [facility] 100 mg 9-10 capsule by ity of capsule 00:00: mouth (three) Medical times Branch daily as needed for Cough. benzonatate 2020-0 Yes [id number] 100mg Take 1 [facility] 100 mg 9-10 capsule by ity of capsule 00:00: mouth (three) Medical times Branch daily as needed for Cough. benzonatate 1-0 Yes [id number] 100mg Take 1 [facility] 100 mg 9-10 capsule by ity of capsule 00:00: mouth (three) Medical times Branch daily as needed for Cough. benzonatate 1-0 Yes [id number] 100mg Take 1 [facility] 100 mg 9-10 capsule by ity of capsule 00:00: mouth (three) Medical times Branch daily as needed for Cough. benzonatate 2020-0 Yes [id number] 100mg Take 1 [facility] 100 mg 9-10 capsule by ity of capsule 00:00: mouth (three) Medical times Branch daily as needed for Cough. benzonatate 2020-0 Yes [id number] 100mg Take 1 [facility] 100 mg 9-10 capsule by ity of capsule 00:00: mouth (three) Medical times Branch daily as needed for Cough. benzonatate 2020-0 Yes [id number] 100mg Take 1 [facility] 100 mg 9-10 capsule by ity of capsule 00:00: mouth (three) Medical times Branch daily as needed for Cough. benzonatate 2020-0 Yes [id number] 100mg Take 1 [facility] 100 mg 9-10 capsule by ity of capsule 00:00: mouth (three) Medical times Branch daily as needed for Cough. benzonatate 2020-0 Yes [id number] 100mg Take 1 [facility] 100 mg 9-10 capsule by ity of capsule 00:00: mouth (three) Medical times Branch daily as needed for Cough. benzonatate 2020-0 Yes [id number] 100mg Take 1 [facility] 100 mg 9-10 capsule by ity of capsule 00:00: mouth (three) Medical times Branch daily as needed for Cough. benzonatate 2020-0 Yes [id number] 100mg Take 1 [facility] 100 mg 9-10 capsule by ity of capsule 00:00: mouth (three) Medical times Branch daily as needed for Cough. benzonatate 2020-0 Yes [id number] 100mg Take 1 [facility] 100 mg 9-10 capsule by ity of capsule 00:00: mouth (three) Medical times Branch daily as needed for Cough. benzonatate 2020-0 Yes [id number] 100mg Take 1 [facility] 100 mg 9-10 capsule by ity of capsule 00:00: mouth (three) Medical times Branch daily as needed for Cough. benzonatate 2020-0 Yes [id number] 100mg Take 1 [facility] 100 mg 9-10 capsule by ity of capsule 00:00: mouth (three) Medical times Branch daily as needed for Cough. benzonatate 2020-0 Yes [id number] 100mg Take 1 [facility] 100 mg 9-10 capsule by ity of capsule 00:00: mouth (three) Medical times Branch daily as needed for Cough. benzonatate 2020-0 Yes [id number] 100mg Take 1 [facility] 100 mg 9-10 capsule by ity of capsule 00:00: mouth (three) Medical times Branch daily as needed for Cough. benzonatate 2020-0 Yes [id number] 100mg Take 1 [facility] 100 mg 9-10 capsule by ity of capsule 00:00: mouth (three) Medical times Branch daily as needed for Cough. benzonatate 2020-0 Yes [id number] 100mg Take 1 [facility] 100 mg 9-10 capsule by ity of capsule 00:00: mouth (three) Medical times Branch daily as needed for Cough. benzonatate 2020-0 Yes [id number] 100mg Take 1 [facility] 100 mg 9-10 capsule by ity of capsule 00:00: mouth (three) Medical times Branch daily as needed for Cough. benzonatate 2020-0 Yes [id number] 100mg Take 1 [facility] 100 mg 9-10 capsule by ity of capsule 00:00: mouth () Medical times Branch daily as needed for Cough. benzonatate 2020-0 Yes [id number] 100mg Take 1 [facility] 100 mg 9-10 capsule by ity of capsule 00:00: mouth (three) Medical times Branch daily as needed for Cough. benzonatate 2020-0 Yes [id number] 100mg Take 1 [facility] 100 mg 9-10 capsule by ity of capsule 00:00: mouth (three) Medical times Branch daily as needed for Cough. benzonatate 2020-0 Yes [id number] 100mg Take 1 [facility] 100 mg 9-10 capsule by ity of capsule 00:00: mouth (three) Medical times Branch daily as needed for Cough. benzonatate 2020-0 Yes [id number] 100mg Take 1 [facility] 100 mg 9-10 capsule by ity of capsule 00:00: mouth (three) Medical times Branch daily as needed for Cough. medroxyPROG 2019-0 Yes [id number] Take one [facility] ESTERone 4-03 by mouth ity of (PROVERA) 00:00: days [place] 10 mg 00 through 10 Medical tablet of each Branch month beginning 02/27/20. medroxyPROG 2020-0 Yes [id number] Take one [facility] ESTERone 4-03 by mouth ity of (PROVERA) 00:00: days one [place] 10 mg 00 through 10 Medical tablet of each Branch month beginning 02/27/20. medroxyPROG 2020-0 Yes [id number] Take one [facility] ESTERone 4-03 by mouth ity of (PROVERA) 00:00: days one [place] 10 mg 00 through 10 Medical tablet of each Branch month beginning 02/27/20. medroxyPROG 2020-0 Yes [id number] Take one [facility] ESTERone 4-03 by mouth ity of (PROVERA) 00:00: days one [place] 10 mg 00 through 10 Medical tablet of each Branch month beginning 02/27/20. medroxyPROG 2020-0 Yes [id number] Take one [facility] ESTERone 4-03 by mouth ity of (PROVERA) 00:00: days one [place] 10 mg 00 through 10 Medical tablet of each Branch month beginning 02/27/20. medroxyPROG 2020-0 Yes [id number] Take one [facility] ESTERone 4-03 by mouth ity of (PROVERA) 00:00: days one [place] 10 mg 00 through 10 Medical tablet of each Branch month beginning 02/27/20. medroxyPROG 2020-0 2- No [id number] Take one [facility] ESTERone 4-03 12-21 by mouth ity of (PROVERA) 00:00: 00:00 days one [place] as 10 mg 00 :00 through 10 Medical tablet of each Branch month beginning 02/27/20. medroxyPROG 2020-0 2- No [id number] Take one [facility] ESTERone 4-03 12-21 by mouth ity of (PROVERA) 00:00: 00:00 days one [place] as 10 mg 00 :00 through 10 Medical tablet of each Branch month beginning 02/27/20. medroxyPROG 2020-0 2- No [id number] Take one [facility] ESTERone 4-03 12-21 by mouth ity of (PROVERA) 00:00: 00:00 days one [place] as 10 mg 00 :00 through 10 Medical tablet of each Branch month beginning 02/27/20. amitriptyli 2020-0 Yes [id number] 25mg Take 1 [facility] ne 25 mg 3-26 tablet by ity of tablet 00:00: mouth at [place] [address] bedtime. Medical Branch metoprolol 2020-0 Yes [id number] 50mg Take 1 [facility] tartrate 50 3-26 tablet by ity of mg tablet 00:00: mouth 2 [place] (two) Medical times Branch daily. amitriptyli 2020-0 Yes [id number] 25mg Take 1 [facility] ne 25 mg 3-26 tablet by ity of tablet 00:00: mouth at [place] [address] bedtime. Medical Branch metoprolol 2020-0 Yes [id number] 50mg Take 1 [facility] tartrate 50 3-26 tablet by ity of mg tablet 00:00: mouth 2 [place] (two) Medical times Branch daily. amitriptyli 2020-0 Yes [id number] 25mg Take 1 [facility] ne 25 mg 3-26 tablet by ity of tablet 00:00: mouth at [place] [address] bedtime. Medical Branch metoprolol 2020-0 Yes [id number] 50mg Take 1 [facility] tartrate 50 3-26 tablet by ity of mg tablet 00:00: mouth 2 [place] (two) Medical times Branch daily. amitriptyli 2020-0 Yes [id number] 25mg Take 1 [facility] ne 25 mg 3-26 tablet by ity of tablet 00:00: mouth at [place] [address] bedtime. Medical Branch metoprolol 2020-0 Yes [id number] 50mg Take 1 [facility] tartrate 50 3-26 tablet by ity of mg tablet 00:00: mouth 2 [place] (two) Medical times Branch daily. amitriptyli 2020-0 Yes [id number] 25mg Take 1 [facility] ne 25 mg 3-26 tablet by ity of tablet 00:00: mouth at [place] [address] bedtime. Medical Branch metoprolol 2020-0 Yes [id number] 50mg Take 1 [facility] tartrate 50 3-26 tablet by ity of mg tablet 00:00: mouth 2 [place] (two) Medical times Branch daily. amitriptyli 2020-0 Yes [id number] 25mg Take 1 [facility] ne 25 mg 3-26 tablet by ity of tablet 00:00: mouth at [place] [address] bedtime. Medical Branch metoprolol 2020-0 Yes [id number] 50mg Take 1 [facility] tartrate 50 3-26 tablet by ity of mg tablet 00:00: mouth 2 [place] (two) Medical times Branch daily. amitriptyli 2020-0 Yes [id number] 25mg Take 1 [facility] ne 25 mg 3-26 tablet by ity of tablet 00:00: mouth at [place] [address] bedtime. Medical Branch metoprolol 2020-0 Yes [id number] 50mg Take 1 [facility] tartrate 50 3-26 tablet by ity of mg tablet 00:00: mouth 2 [place] (two) Medical times Branch daily. amitriptyli 2020-0 Yes [id number] 25mg Take 1 [facility] ne 25 mg 3-26 tablet by ity of tablet 00:00: mouth at [place] [address] bedtime. Medical Branch metoprolol 2020-0 Yes [id number] 50mg Take 1 [facility] tartrate 50 3-26 tablet by ity of mg tablet 00:00: mouth 2 [place] (two) Medical times Branch daily. amitriptyli 2020-0 Yes [id number] 25mg Take 1 [facility] ne 25 mg 3-26 tablet by ity of tablet 00:00: mouth at [place] [address] bedtime. Medical Branch metoprolol 2020-0 Yes [id number] 50mg Take 1 [facility] tartrate 50 3-26 tablet by ity of mg tablet 00:00: mouth 2 [place] (two) Medical times Branch daily. amitriptyli 2020-0 Yes [id number] 25mg Take 1 [facility] ne 25 mg 3-26 tablet by ity of tablet 00:00: mouth at [place] [address] bedtime. Medical Branch metoprolol 2020-0 Yes [id number] 50mg Take 1 [facility] tartrate 50 3-26 tablet by ity of mg tablet 00:00: mouth 2 [place] (two) Medical times Branch daily. amitriptyli 2020-0 Yes [id number] 25mg Take 1 [facility] ne 25 mg 3-26 tablet by ity of tablet 00:00: mouth at [place] [address] bedtime. Medical Branch metoprolol 2020-0 Yes [id number] 50mg Take 1 [facility] tartrate 50 3-26 tablet by ity of mg tablet 00:00: mouth 2 [place] (two) Medical times Branch daily. amitriptyli 2020-0 Yes [id number] 25mg Take 1 [facility] ne 25 mg 3-26 tablet by ity of tablet 00:00: mouth at [place] [address] bedtime. Medical Branch metoprolol 2020-0 Yes [id number] 50mg Take 1 [facility] tartrate 50 3-26 tablet by ity of mg tablet 00:00: mouth 2 [place] (two) Medical times Branch daily. amitriptyli 2020-0 Yes [id number] 25mg Take 1 [facility] ne 25 mg 3-26 tablet by ity of tablet 00:00: mouth at [place] [address] bedtime. Medical Branch metoprolol 2020-0 Yes [id number] 50mg Take 1 [facility] tartrate 50 3-26 tablet by ity of mg tablet 00:00: mouth 2 [place] (two) Medical times Branch daily. amitriptyli 2020-0 Yes [id number] 25mg Take 1 [facility] ne 25 mg 3-26 tablet by ity of tablet 00:00: mouth at [place] [address] bedtime. Medical Branch metoprolol 2020-0 Yes [id number] 50mg Take 1 [facility] tartrate 50 3-26 tablet by ity of mg tablet 00:00: mouth 2 [place] (two) Medical times Branch daily. amitriptyli 2020-0 Yes [id number] 25mg Take 1 [facility] ne 25 mg 3-26 tablet by ity of tablet 00:00: mouth at [place] [address] bedtime. Medical Branch metoprolol 2020-0 Yes [id number] 50mg Take 1 [facility] tartrate 50 3-26 tablet by ity of mg tablet 00:00: mouth 2 [place] (two) Medical times Branch daily. amitriptyli 2020-0 Yes [id number] 25mg Take 1 [facility] ne 25 mg 3-26 tablet by ity of tablet 00:00: mouth at [place] [address] bedtime. Medical Branch metoprolol 2020-0 Yes [id number] 50mg Take 1 [facility] tartrate 50 3-26 tablet by ity of mg tablet 00:00: mouth 2 [place] (two) Medical times Branch daily. amitriptyli 2020-0 Yes [id number] 25mg Take 1 [facility] ne 25 mg 3-26 tablet by ity of tablet 00:00: mouth at [place] [address] bedtime. Medical Branch metoprolol 2020-0 Yes [id number] 50mg Take 1 [facility] tartrate 50 3-26 tablet by ity of mg tablet 00:00: mouth 2 [place] (two) Medical times Branch daily. amitriptyli 2020-0 Yes [id number] 25mg Take 1 [facility] ne 25 mg 3-26 tablet by ity of tablet 00:00: mouth at [place] [address] bedtime. Medical Branch metoprolol 2020-0 Yes [id number] 50mg Take 1 [facility] tartrate 50 3-26 tablet by ity of mg tablet 00:00: mouth 2 [place] (two) Medical times Branch daily. amitriptyli 2020-0 Yes [id number] 25mg Take 1 [facility] ne 25 mg 3-26 tablet by ity of tablet 00:00: mouth at [place] [address] bedtime. Medical Branch metoprolol 2020-0 Yes [id number] 50mg Take 1 [facility] tartrate 50 3-26 tablet by ity of mg tablet 00:00: mouth 2 [place] (two) Medical times Branch daily. amitriptyli 2020-0 Yes [id number] 25mg Take 1 [facility] ne 25 mg 3-26 tablet by ity of tablet 00:00: mouth at [place] [address] bedtime. Medical Branch metoprolol 2020-0 Yes [id number] 50mg Take 1 [facility] tartrate 50 3-26 tablet by ity of mg tablet 00:00: mouth 2 [place] (two) Medical times Branch daily. amitriptyli 2020-0 Yes [id number] 25mg Take 1 [facility] ne 25 mg 3-26 tablet by ity of tablet 00:00: mouth at [place] [address] bedtime. Medical Branch metoprolol 2020-0 Yes [id number] 50mg Take 1 [facility] tartrate 50 3-26 tablet by ity of mg tablet 00:00: mouth 2 [place] (two) Medical times Branch daily. amitriptyli 2020-0 Yes [id number] 25mg Take 1 [facility] ne 25 mg 3-26 tablet by ity of tablet 00:00: mouth at [place] [address] bedtime. Medical Branch metoprolol 2020-0 Yes [id number] 50mg Take 1 [facility] tartrate 50 3-26 tablet by ity of mg tablet 00:00: mouth 2 [place] (two) Medical times Branch daily. amitriptyli 2020-0 Yes [id number] 25mg Take 1 [facility] ne 25 mg 3-26 tablet by ity of tablet 00:00: mouth at [place] [address] bedtime. Medical Branch metoprolol 2020-0 Yes [id number] 50mg Take 1 [facility] tartrate 50 3-26 tablet by ity of mg tablet 00:00: mouth 2 [place] (two) Medical times Branch daily. amitriptyli 2020-0 Yes [id number] 25mg Take 1 [facility] ne 25 mg 3-26 tablet by ity of tablet 00:00: mouth at [place] [address] bedtime. Medical Branch metoprolol 2020-0 Yes [id number] 50mg Take 1 [facility] tartrate 50 3-26 tablet by ity of mg tablet 00:00: mouth 2 [place] (two) Medical times Branch daily. amitriptyli 2020-0 Yes [id number] 25mg Take 1 [facility] ne 25 mg 3-26 tablet by ity of tablet 00:00: mouth at [place] [address] bedtime. Medical Branch metoprolol 2020-0 Yes [id number] 50mg Take 1 [facility] tartrate 50 3-26 tablet by ity of mg tablet 00:00: mouth 2 [place] (two) Medical times Branch daily. amitriptyli 2020-0 Yes [id number] 25mg Take 1 [facility] ne 25 mg 3-26 tablet by ity of tablet 00:00: mouth at [place] [address] bedtime. Medical Branch metoprolol 2020-0 Yes [id number] 50mg Take 1 [facility] tartrate 50 3-26 tablet by ity of mg tablet 00:00: mouth 2 [place] (two) Medical times Branch daily. amitriptyli 2020-0 Yes [id number] 25mg Take 1 [facility] ne 25 mg 3-26 tablet by ity of tablet 00:00: mouth at [place] [address] bedtime. Medical Branch metoprolol 2020-0 Yes [id number] 50mg Take 1 [facility] tartrate 50 3-26 tablet by ity of mg tablet 00:00: mouth 2 [place] (two) Medical times Branch daily. amitriptyli 2020-0 Yes [id number] 25mg Take 1 [facility] ne 25 mg 3-26 tablet by ity of tablet 00:00: mouth at [place] [address] bedtime. Medical Branch metoprolol 2020-0 Yes [id number] 50mg Take 1 [facility] tartrate 50 3-26 tablet by ity of mg tablet 00:00: mouth 2 [place] (two) Medical times Branch daily. amitriptyli 2020-0 Yes [id number] 25mg Take 1 [facility] ne 25 mg 3-26 tablet by ity of tablet 00:00: mouth at [place] [address] bedtime. Medical Branch metoprolol 2020-0 Yes [id number] 50mg Take 1 [facility] tartrate 50 3-26 tablet by ity of mg tablet 00:00: mouth 2 [place] (two) Medical times Branch daily. amitriptyli 2020-0 Yes [id number] 25mg Take 1 [facility] ne 25 mg 3-26 tablet by ity of tablet 00:00: mouth at [place] bedtime. Medical Branch metoprolol 2020-0 Yes [id number] 50mg Take 1 [facility] tartrate 50 3-26 tablet by ity of mg tablet 00:00: mouth 2 [place] (two) Medical times Branch daily. amitriptyli 2020-0 Yes [id number] 25mg Take 1 [facility] ne 25 mg 3-26 tablet by ity of tablet 00:00: mouth at [place] [address] bedtime. Medical Branch metoprolol 2020-0 Yes [id number] 50mg Take 1 [facility] tartrate 50 3-26 tablet by ity of mg tablet 00:00: mouth 2 [place] (two) Medical times Branch daily. amitriptyli 2020-0 Yes [id number] 25mg Take 1 [facility] ne 25 mg 3-26 tablet by ity of tablet 00:00: mouth at [place] [address] bedtime. Medical Branch metoprolol 2020-0 Yes [id number] 50mg Take 1 [facility] tartrate 50 3-26 tablet by ity of mg tablet 00:00: mouth 2 [place] (two) Medical times Branch daily. amitriptyli 2020-0 Yes [id number] 25mg Take 1 [facility] ne 25 mg 3-26 tablet by ity of tablet 00:00: mouth at [place] [address] bedtime. Medical Branch metoprolol 2020-0 Yes [id number] 50mg Take 1 [facility] tartrate 50 3-26 tablet by ity of mg tablet 00:00: mouth 2 [place] (two) Medical times Branch daily. amitriptyli 2020-0 Yes [id number] 25mg Take 1 [facility] ne 25 mg 3-26 tablet by ity of tablet 00:00: mouth at [place] [address] bedtime. Medical Branch metoprolol 2020-0 Yes [id number] 50mg Take 1 [facility] tartrate 50 3-26 tablet by ity of mg tablet 00:00: mouth 2 [place] (two) Medical times Branch daily. amitriptyli 2020-0 Yes [id number] 25mg Take 1 [facility] ne 25 mg 3-26 tablet by ity of tablet 00:00: mouth at [place] [address] bedtime. Medical Branch metoprolol 2020-0 Yes [id number] 50mg Take 1 [facility] tartrate 50 3-26 tablet by ity of mg tablet 00:00: mouth 2 [place] 00 (two) Medical times Branch daily. amitriptyli 2020-0 Yes [id number] 25mg Take 1 [facility] ne 25 mg 3-26 tablet by ity of tablet 00:00: mouth at [place] 00 bedtime. Medical Branch metoprolol 2020-0 Yes [id number] 50mg Take 1 [facility] tartrate 50 3-26 tablet by ity of mg tablet 00:00: mouth 2 [place] 00 (two) Medical times Branch daily. albuterol 2020-0 Yes [id number] 2{puff} Inhale 2 [facility] 90 2-14 Puffs ity of mcg/actuati 00:00: every 6 [place] on inhaler 00 (six) Medical hours as Branch needed for Wheezing or Shortness of Breath. levETIRAcet 2020-0 Yes [id number] 500mg Take 1 [facility] am (KEPPRA) 2-14 tablet by ity of 500 mg 00:00: mouth 2 [place] tablet 00 (two) Medical times Branch daily. budesonide- 2020-0 Yes [id number] 2{puff} Inhale 2 [facility] formoteroL 2-14 Puffs 2 ity of 160-4.5 00:00: (two) [place] mcg/actuati 00 times Medical on inhaler daily. Branch indomethaci 2019-0 Yes [id number] 50mg Take 1 [facility] n 50 mg 2-14 capsule by ity of capsule 00:00: mouth 3 [place] 00 (three) Medical times Branch daily with meals. albuterol 2020-0 Yes [id number] 2{puff} Inhale 2 [facility] 90 2-14 Puffs ity of mcg/actuati 00:00: every 6 [place] on inhaler 00 (six) Medical hours as Branch needed for Wheezing or Shortness of Breath. levETIRAcet 2020-0 Yes [id number] 500mg Take 1 [facility] am (KEPPRA) 2-14 tablet by ity of 500 mg 00:00: mouth 2 [place] tablet 00 (two) Medical times Branch daily. budesonide- 2020-0 Yes [id number] 2{puff} Inhale 2 [facility] form[facility]eroL 2-14 Puffs 2 [facility] of 160-4.5 00:00: (two) [place] mcg/actuati 00 times Medical on inhaler daily. [facility] indomethaci 2019-0 Yes [id number] 50mg Take 1 [facility] n 50 mg 2-14 capsule by [facility] of capsule 00:00: mouth 3 [place] 00 (three) Medical times [facility] daily with meals. albuterol 2020-0 Yes [id number] 2{puff} Inhale 2 [facility] 90 2-14 Puffs it[facility] of mcg/actuati 00:00: every 6 [place] on inhaler 00 (six) Medical hours as Branch needed for Wheezing or Shortness of Breath. levETIRAcet 2020-0 Yes [id number] 500mg Take 1 [facility] am (KEPPRA) 2-14 tablet by ity of 500 mg 00:00: mouth 2 [place] tablet 00 (two) Medical times [facility] daily. budesonide- 2020-0 Yes [id number] 2{puff} Inhale 2 [facility] formoteroL 2-14 Puffs 2 [facility] of 160-4.5 00:00: (two) [place] mcg/actuati 00 times Medical on inhaler daily. [facility] indomethaci 2020-0 Yes [id number] 50mg Take 1 [facility] n 50 mg 2-14 capsule by [facility] of capsule 00:00: mouth 3 [place] 00 (three) Medical times [facility] daily with meals. albuterol 2020-0 Yes [id number] 2{puff} Inhale 2 [facility] 90 2-14 Puffs ity of mcg/actuati 00:00: every 6 [place] on inhaler 00 (six) Medical hours as Branch needed for Wheezing or Shortness of Breath. levETIRAcet 2020-0 Yes [id number] 500mg Take 1 [facility] (KEPPRA) 2-14 tablet by ity of 500 mg 00:00: mouth 2 [place] tablet 00 (two) Medical times [facility] daily. budesonide- 2020-0 Yes [id number] 2{puff} Inhale 2 [facility] formoteroL 2-14 Puffs 2 [facility] of 160-4.5 00:00: (two) [place] mcg/actuati 00 times Medical on inhaler daily. [facility] indomethaci 2020-0 Yes [id number] 50mg Take 1 [facility] n 50 mg 2-14 capsule by ity of capsule 00:00: mouth 3 [place] 00 (three) Medical times [facility] daily with meals. albuterol 2020-0 Yes [id number] 2{puff} Inhale 2 [facility] 90 2-14 Puffs ity of mcg/actuati 00:00: every 6 [place] on inhaler 00 (six) Medical hours as Branch needed for Wheezing or Shortness of Breath. levETIRAcet 2020-0 Yes [id number] 500mg Take 1 [facility] (KEPPRA) 2-14 tablet by ity of 500 mg 00:00: mouth 2 [place] tablet 00 (two) Medical times [facility] daily. budesonide- 2020-0 Yes [id number] 2{puff} Inhale 2 [facility] formoteroL 2-14 Puffs 2 [facility] of 160-4.5 00:00: (two) [place] mcg/actuati 00 times Medical on inhaler daily. [facility] indomethaci 2020-0 Yes [id number] 50mg Take 1 [facility] n 50 mg 2-14 capsule by [facility] of capsule 00:00: mouth 3 [place] 00 (three) Medical times [facility] daily with meals. albuterol 2020-0 Yes [id number] 2{puff} Inhale 2 [facility] 90 2-14 Puffs ity of mcg/actuati 00:00: every 6 [place] on inhaler 00 (six) Medical hours as Branch needed for Wheezing or Shortness of Breath. levETIRAcet 2020-0 Yes [id number] 500mg Take 1 [facility] (KEPPRA) 2-14 tablet by ity of 500 mg 00:00: mouth 2 [place] tablet 00 (two) Medical times [facility] daily. budesonide- 2020-0 Yes [id number] 2{puff} Inhale 2 [facility] formoteroL 2-14 Puffs 2 [facility] of 160-4.5 00:00: (two) [place] mcg/actuati 00 times Medical on inhaler daily. [facility] indomethaci 2020-0 Yes [id number] 50mg Take 1 [facility] n 50 mg 2-14 capsule by [facility] of capsule 00:00: mouth 3 [place] 00 (three) Medical times [facility] daily with meals. albuterol 2020-0 Yes [id number] 2{puff} Inhale 2 [facility] 90 2-14 Puffs ity of mcg/actuati 00:00: every 6 [place] on inhaler 00 (six) Medical hours as Branch needed for Wheezing or Shortness of Breath. levETIRAcet 2020-0 Yes [id number] 500mg Take 1 [facility] (KEPPRA) 2-14 tablet by ity of 500 mg 00:00: mouth 2 [place] tablet 00 (two) Medical times [facility] daily. budesonide- 2020-0 Yes [id number] 2{puff} Inhale 2 [facility] formoteroL 2-14 Puffs 2 [facility] of 160-4.5 00:00: (two) [place] mcg/actuati 00 times Medical on inhaler daily. [facility] indomethaci 2020-0 Yes [id number] 50mg Take 1 [facility] n 50 mg 2-14 capsule by it[facility] of capsule 00:00: mouth 3 [place] 00 (three) Medical times [facility] daily with meals. albuterol 2020-0 Yes [id number] 2{puff} Inhale 2 [facility] 90 2-14 Puffs ity of mcg/actuati 00:00: every 6 [place] on inhaler 00 (six) Medical hours as Branch needed for Wheezing or Shortness of Breath. levETIRAcet 2020-0 Yes [id number] 500mg Take 1 [facility] (KEPPRA) 2-14 tablet by ity of 500 mg 00:00: mouth 2 [place] tablet 00 (two) Medical times [facility] daily. budesonide- 2020-0 Yes [id number] 2{puff} Inhale 2 [facility] formoteroL 2-14 Puffs 2 [facility] of 160-4.5 00:00: (two) [place] mcg/actuati 00 times Medical on inhaler daily. [facility] indomethaci 2020-0 Yes [id number] 50mg Take 1 [facility] n 50 mg 2-14 capsule by [facility] of capsule 00:00: mouth 3 [place] 00 (three) Medical times [facility] daily with meals. albuterol 2020-0 Yes [id number] 2{puff} Inhale 2 [facility] 90 2-14 Puffs ity of mcg/actuati 00:00: every 6 [place] on inhaler 00 (six) Medical hours as Branch needed for Wheezing or Shortness of Breath. levETIRAcet 2020-0 Yes [id number] 500mg Take 1 [facility] (KEPPRA) 2-14 tablet by ity of 500 mg 00:00: mouth 2 [place] tablet 00 (two) Medical times [facility] daily. budesonide- 2020-0 Yes [id number] 2{puff} Inhale 2 [facility] formoteroL 2-14 Puffs 2 [facility] of 160-4.5 00:00: (two) [place] mcg/actuati 00 times Medical on inhaler daily. [facility] indomethaci 2020-0 Yes [id number] 50mg Take 1 [facility] n 50 mg 2-14 capsule by it[facility] of capsule 00:00: mouth 3 [place] 00 (three) Medical times [facility] daily with meals. albuterol 2020-0 Yes [id number] 2{puff} Inhale 2 [facility] 90 2-14 Puffs ity of mcg/actuati 00:00: every 6 [place] on inhaler 00 (six) Medical hours as Branch needed for Wheezing or Shortness of Breath. levETIRAcet 2020-0 Yes [id number] 500mg Take 1 [facility] (KEPPRA) 2-14 tablet by ity of 500 mg 00:00: mouth 2 [place] tablet 00 (two) Medical times [facility] daily. budesonide- 2020-0 Yes [id number] 2{puff} Inhale 2 [facility] formoteroL 2-14 Puffs 2 [facility] of 160-4.5 00:00: (two) [place] mcg/actuati 00 times Medical on inhaler daily. [facility] indomethaci 2020-0 Yes [id number] 50mg Take 1 [facility] n 50 mg 2-14 capsule by it[facility] of capsule 00:00: mouth 3 [place] 00 (three) Medical times [facility] daily with meals. albuterol 2020-0 Yes [id number] 2{puff} Inhale 2 [facility] 90 2-14 Puffs ity of mcg/actuati 00:00: every 6 [place] on inhaler 00 (six) Medical hours as Branch needed for Wheezing or Shortness of Breath. levETIRAcet 2020-0 Yes [id number] 500mg Take 1 [facility] am (KEPPRA) 2-14 tablet by ity of 500 mg 00:00: mouth 2 [place] tablet 00 (two) Medical times [facility] daily. budesonide- 2020-0 Yes [id number] 2{puff} Inhale 2 [facility] formoteroL 2-14 Puffs 2 [facility] of 160-4.5 00:00: (two) [place] mcg/actuati 00 times Medical on inhaler daily. [facility] indomethaci 2020-0 Yes [id number] 50mg Take 1 [facility] n 50 mg 2-14 capsule by ity of capsule 00:00: mouth 3 [place] 00 (three) Medical times [facility] daily with meals. albuterol 2020-0 Yes [id number] 2{puff} Inhale 2 [facility] 90 2-14 Puffs ity of mcg/actuati 00:00: every 6 [place] [facility] on inhaler 00 (six) Medical hours as Branch needed for Wheezing or Shortness of Breath. levETIRAcet 2020-0 Yes [id number] 500mg Take 1 [facility] (KEPPRA) 2-14 tablet by ity of 500 mg 00:00: mouth 2 [place] tablet 00 (two) Medical times [facility] daily. budesonide- 2020-0 Yes [id number] 2{puff} Inhale 2 [facility] formoteroL 2-14 Puffs 2 [facility] of 160-4.5 00:00: (two) [place] mcg/actuati 00 times Medical on inhaler daily. [facility] indomethaci 2020-0 Yes [id number] 50mg Take 1 [facility] n 50 mg 2-14 capsule by it[facility] of capsule 00:00: mouth 3 [place] 00 (three) Medical times [facility] daily with meals. albuterol 2020-0 Yes [id number] 2{puff} Inhale 2 [facility] 90 2-14 Puffs ity of mcg/actuati 00:00: every 6 [place] [facility] on inhaler 00 (six) Medical hours as Branch needed for Wheezing or Shortness of Breath. levETIRAcet 2020-0 Yes [id number] 500mg Take 1 [facility] am (KEPPRA) 2-14 tablet by ity of 500 mg 00:00: mouth 2 [place] tablet 00 (two) Medical times [facility] daily. budesonide- 2020-0 Yes [id number] 2{puff} Inhale 2 [facility] formoteroL 2-14 Puffs 2 [facility] of 160-4.5 00:00: (two) [place] mcg/actuati 00 times Medical on inhaler daily. [facility] indomethaci 2020-0 Yes [id number] 50mg Take 1 [facility] n 50 mg 2-14 capsule by ity of capsule 00:00: mouth 3 [place] 00 (three) Medical times [facility] daily with meals. albuterol 2020-0 Yes [id number] 2{puff} Inhale 2 [facility] 90 2-14 Puffs ity of mcg/actuati 00:00: every 6 [place] [facility] on inhaler 00 (six) Medical hours as Branch needed for Wheezing or Shortness of Breath. levETIRAcet 2020-0 Yes [id number] 500mg Take 1 [facility] am (KEPPRA) 2-14 tablet by ity of 500 mg 00:00: mouth 2 [place] tablet 00 (two) Medical times [facility] daily. budesonide- 2020-0 Yes [id number] 2{puff} Inhale 2 [facility] formoteroL 2-14 Puffs 2 [facility] of 160-4.5 00:00: (two) [place] mcg/actuati 00 times Medical on inhaler daily. [facility] indomethaci 2020-0 Yes [id number] 50mg Take 1 [facility] n 50 mg 2-14 capsule by ity of capsule 00:00: mouth 3 [place] 00 (three) Medical times [facility] daily with meals. albuterol 2020-0 Yes [id number] 2{puff} Inhale 2 [facility] 90 2-14 Puffs ity of mcg/actuati 00:00: every 6 [place] on inhaler 00 (six) Medical hours as Branch needed for Wheezing or Shortness of Breath. levETIRAcet 2020-0 Yes [id number] 500mg Take 1 [facility] am (KEPPRA) 2-14 tablet by ity of 500 mg 00:00: mouth 2 [place] tablet 00 (two) Medical times [facility] daily. budesonide- 2020-0 Yes [id number] 2{puff} Inhale 2 [facility] formoteroL 2-14 Puffs 2 [facility] of 160-4.5 00:00: (two) [place] mcg/actuati 00 times Medical on inhaler daily. Branch indomethaci 2020-0 Yes [id number] 50mg Take 1 [facility] n 50 mg 2-14 capsule by ity of capsule 00:00: mouth 3 (three) Medical times [facility] daily with meals. albuterol 2020-0 Yes [id number] 2{puff} Inhale 2 [facility] 90 2-14 Puffs ity of mcg/actuati 00:00: every 6 [place] [facility] on inhaler 00 (six) Medical hours as Branch needed for Wheezing or Shortness of Breath. levETIRAcet 2020-0 Yes [id number] 500mg Take 1 [facility] am (KEPPRA) 2-14 tablet by ity of 500 mg 00:00: mouth 2 [place] tablet 00 (two) Medical times Branch daily. budesonide- 2020-0 Yes [id number] 2{puff} Inhale 2 [facility] formoteroL 2-14 Puffs 2 [facility] of 160-4.5 00:00: (two) [place] mcg/actuati 00 times Medical on inhaler daily. [facility] indomethaci 2020-0 Yes [id number] 50mg Take 1 [facility] n 50 mg 2-14 capsule by ity of capsule 00:00: mouth 3 [place] 00 (three) Medical times [facility] daily with meals. albuterol 2020-0 Yes [id number] 2{puff} Inhale 2 [facility] 90 2-14 Puffs ity of mcg/actuati 00:00: every 6 [place] [facility] on inhaler 00 (six) Medical hours as Branch needed for Wheezing or Shortness of Breath. levETIRAcet 2020-0 Yes [id number] 500mg Take 1 [facility] am (KEPPRA) 2-14 tablet by ity of 500 mg 00:00: mouth 2 [place] tablet 00 (two) Medical times [facility] daily. budesonide- 2020-0 Yes [id number] 2{puff} Inhale 2 [facility] formoteroL 2-14 Puffs 2 [facility] of 160-4.5 00:00: (two) [place] mcg/actuati 00 times Medical on inhaler daily. [facility] indomethaci 2020-0 Yes [id number] 50mg Take 1 [facility] n 50 mg 2-14 capsule by ity of capsule 00:00: mouth 3 00 (three) Medical times [facility] daily with meals. albuterol 2020-0 Yes [id number] 2{puff} Inhale 2 [facility] 90 2-14 Puffs ity of mcg/actuati 00:00: every 6 [place] on inhaler 00 (six) Medical hours as Branch needed for Wheezing or Shortness of Breath. levETIRAcet 2020-0 Yes [id number] 500mg Take 1 [facility] am (KEPPRA) 2-14 tablet by ity of 500 mg 00:00: mouth 2 [place] tablet 00 (two) Medical times [facility] daily. budesonide- 2020-0 Yes [id number] 2{puff} Inhale 2 [facility] formoteroL 2-14 Puffs 2 [facility] of 160-4.5 00:00: (two) [place] mcg/actuati 00 times Medical on inhaler daily. [facility] indomethaci 2020-0 Yes [id number] 50mg Take 1 [facility] n 50 mg 2-14 capsule by ity of capsule 00:00: mouth 3 [place] 00 (three) Medical times [facility] daily with meals. albuterol 2020-0 Yes [id number] 2{puff} Inhale 2 [facility] 90 2-14 Puffs ity of mcg/actuati 00:00: every 6 [place] [facility] on inhaler 00 (six) Medical hours as Branch needed for Wheezing or Shortness of Breath. levETIRAcet 2020-0 Yes [id number] 500mg Take 1 [facility] am (KEPPRA) 2-14 tablet by ity of 500 mg 00:00: mouth 2 [place] tablet 00 (two) Medical times [facility] daily. budesonide- 2020-0 Yes [id number] 2{puff} Inhale 2 [facility] formoteroL 2-14 Puffs 2 [facility] of 160-4.5 00:00: (two) [place] mcg/actuati 00 times Medical on inhaler daily. [facility] indomethaci 2020-0 Yes [id number] 50mg Take 1 [facility] n 50 mg 2-14 capsule by ity of capsule 00:00: mouth 3 [place] 00 (three) Medical times [facility] daily with meals. albuterol 2020-0 Yes [id number] 2{puff} Inhale 2 [facility] 90 2-14 Puffs ity of mcg/actuati 00:00: every 6 [place] [facility] on inhaler 00 (six) Medical hours as Branch needed for Wheezing or Shortness of Breath. levETIRAcet 2020-0 Yes [id number] 500mg Take 1 [facility] am (KEPPRA) 2-14 tablet by ity of 500 mg 00:00: mouth 2 [place] tablet 00 (two) Medical times [facility] daily. budesonide- 2020-0 Yes [id number] 2{puff} Inhale 2 [facility] formoteroL 2-14 Puffs 2 [facility] of 160-4.5 00:00: (two) [place] mcg/actuati 00 times Medical on inhaler daily. Branch indomethaci 2020-0 Yes [id number] 50mg Take 1 [facility] n 50 mg 2-14 capsule by ity of capsule 00:00: mouth 3 [place] 00 (three) Medical times [facility] daily with meals. albuterol 2020-0 Yes [id number] 2{puff} Inhale 2 [facility] 90 2-14 Puffs ity of mcg/actuati 00:00: every 6 [place] [facility] on inhaler 00 (six) Medical hours as Branch needed for Wheezing or Shortness of Breath. levETIRAcet 2020-0 Yes [id number] 500mg Take 1 [facility] am (KEPPRA) 2-14 tablet by ity of 500 mg 00:00: mouth 2 [place] tablet 00 (two) Medical times Branch daily. budesonide- 2020-0 Yes [id number] 2{puff} Inhale 2 [facility] formoteroL 2-14 Puffs 2 [facility]y of 160-4.5 00:00: (two) [place] mcg/actuati 00 times Medical on inhaler daily. Branch indomethaci 2020-0 Yes [id number] 50mg Take 1 [facility] n 50 mg 2-14 capsule by ity of capsule 00:00: mouth 3 [place] 00 (three) Medical times [facility] daily with meals. albuterol 2020-0 Yes [id number] 2{puff} Inhale 2 [facility] 90 2-14 Puffs ity of mcg/actuati 00:00: every 6 [place] [facility] on inhaler 00 (six) Medical hours as Branch needed for Wheezing or Shortness of Breath. levETIRAcet 2020-0 Yes [id number] 500mg Take 1 [facility] am (KEPPRA) 2-14 tablet by ity of 500 mg 00:00: mouth 2 [place] tablet 00 (two) Medical times [facility] daily. budesonide- 2020-0 Yes [id number] 2{puff} Inhale 2 [facility] formoteroL 2-14 Puffs 2 [facility]y of 160-4.5 00:00: (two) [place] mcg/actuati 00 times Medical on inhaler daily. Branch indomethaci 2020-0 Yes [id number] 50mg Take 1 [facility] n 50 mg 2-14 capsule by ity of capsule 00:00: mouth 3 00 (three) Medical times [facility] daily with meals. albuterol 2020-0 Yes [id number] 2{puff} Inhale 2 [facility] 90 2-14 Puffs ity of mcg/actuati 00:00: every 6 [place] [facility] on inhaler 00 (six) Medical hours as Branch needed for Wheezing or Shortness of Breath. levETIRAcet 2020-0 Yes [id number] 500mg Take 1 [facility] am (KEPPRA) 2-14 tablet by ity of 500 mg 00:00: mouth 2 [place] tablet 00 (two) Medical times Branch daily. budesonide- 2020-0 Yes [id number] 2{puff} Inhale 2 [facility] formoteroL 2-14 Puffs 2 [facility]y of 160-4.5 00:00: (two) [place] mcg/actuati 00 times Medical on inhaler daily. Branch indomethaci 2020-0 Yes [id number] 50mg Take 1 [facility] n 50 mg 2-14 capsule by ity of capsule 00:00: mouth 3 [place] 00 (three) Medical times [facility] daily with meals. albuterol 2020-0 Yes [id number] 2{puff} Inhale 2 [facility] 90 2-14 Puffs ity of mcg/actuati 00:00: every 6 [place] [facility] on inhaler 00 (six) Medical hours as Branch needed for Wheezing or Shortness of Breath. levETIRAcet 2020-0 Yes [id number] 500mg Take 1 [facility] am (KEPPRA) 2-14 tablet by ity of 500 mg 00:00: mouth 2 [place] tablet 00 (two) Medical times [facility] daily. budesonide- 2020-0 Yes [id number] 2{puff} Inhale 2 [facility] formoteroL 2-14 Puffs 2 [facility]y of 160-4.5 00:00: (two) [place] mcg/actuati 00 times Medical on inhaler daily. Branch indomethaci 2020-0 Yes [id number] 50mg Take 1 [facility] n 50 mg 2-14 capsule by ity of capsule 00:00: mouth 3 00 (three) Medical times [facility] daily with meals. albuterol 2020-0 Yes [id number] 2{puff} Inhale 2 [facility] 90 2-14 Puffs ity of mcg/actuati 00:00: every 6 [place] on inhaler 00 (six) Medical hours as Branch needed for Wheezing or Shortness of Breath. levETIRAcet 2020-0 Yes [id number] 500mg Take 1 [facility] am (KEPPRA) 2-14 tablet by ity of 500 mg 00:00: mouth 2 [place] tablet 00 (two) Medical times [facility] daily. budesonide- 2020-0 Yes [id number] 2{puff} Inhale 2 [facility] formoteroL 2-14 Puffs 2 [facility] of 160-4.5 00:00: (two) [place] mcg/actuati 00 times Medical on inhaler daily. [facility] indomethaci 2020-0 Yes [id number] 50mg Take 1 [facility] n 50 mg 2-14 capsule by ity of capsule 00:00: mouth 3 [place] 00 (three) Medical times [facility] daily with meals. albuterol 2020-0 Yes [id number] 2{puff} Inhale 2 [facility] 90 2-14 Puffs ity of mcg/actuati 00:00: every 6 [place] on inhaler 00 (six) Medical hours as Branch needed for Wheezing or Shortness of Breath. levETIRAcet 2020-0 Yes [id number] 500mg Take 1 [facility] am (KEPPRA) 2-14 tablet by ity of 500 mg 00:00: mouth 2 [place] tablet 00 (two) Medical times [facility] daily. budesonide- 2020-0 Yes [id number] 2{puff} Inhale 2 [facility] formoteroL 2-14 Puffs 2 [facility] of 160-4.5 00:00: (two) [place] mcg/actuati 00 times Medical on inhaler daily. [facility] indomethaci 2020-0 Yes [id number] 50mg Take 1 [facility] n 50 mg 2-14 capsule by ity of capsule 00:00: mouth 3 [place] 00 (three) Medical times [facility] daily with meals. albuterol 2020-0 Yes [id number] 2{puff} Inhale 2 [facility] 90 2-14 Puffs ity of mcg/actuati 00:00: every 6 [place] [facility] on inhaler 00 (six) Medical hours as Branch needed for Wheezing or Shortness of Breath. levETIRAcet 2020-0 Yes [id number] 500mg Take 1 [facility] am (KEPPRA) 2-14 tablet by ity of 500 mg 00:00: mouth 2 [place] tablet 00 (two) Medical times [facility] daily. budesonide- 2020-0 Yes [id number] 2{puff} Inhale 2 [facility] formoteroL 2-14 Puffs 2 [facility] of 160-4.5 00:00: (two) [place] mcg/actuati 00 times Medical on inhaler daily. [facility] indomethaci 2020-0 Yes [id number] 50mg Take 1 [facility] n 50 mg 2-14 capsule by ity of capsule 00:00: mouth 3 [place] 00 (three) Medical times [facility] daily with meals. albuterol 2020-0 Yes [id number] 2{puff} Inhale 2 [facility] 90 2-14 Puffs ity of mcg/actuati 00:00: every 6 [place] [facility] on inhaler 00 (six) Medical hours as Branch needed for Wheezing or Shortness of Breath. levETIRAcet 2020-0 Yes [id number] 500mg Take 1 [facility] am (KEPPRA) 2-14 tablet by ity of 500 mg 00:00: mouth 2 [place] tablet 00 (two) Medical times [facility] daily. budesonide- 2020-0 Yes [id number] 2{puff} Inhale 2 [facility] formoteroL 2-14 Puffs 2 [facility]y of 160-4.5 00:00: (two) [place] mcg/actuati 00 times Medical on inhaler daily. [facility] indomethaci 2020-0 Yes [id number] 50mg Take 1 [facility] n 50 mg 2-14 capsule by ity of capsule 00:00: mouth 3 [place] 00 (three) Medical times [facility] daily with meals. albuterol 2020-0 Yes [id number] 2{puff} Inhale 2 [facility] 90 2-14 Puffs ity of mcg/actuati 00:00: every 6 [place] [facility] on inhaler 00 (six) Medical hours as Branch needed for Wheezing or Shortness of Breath. levETIRAcet 2020-0 Yes [id number] 500mg Take 1 [facility] am (KEPPRA) 2-14 tablet by ity of 500 mg 00:00: mouth 2 [place] tablet 00 (two) Medical times [facility] daily. budesonide- 2020-0 Yes [id number] 2{puff} Inhale 2 [facility] formoteroL 2-14 Puffs 2 [facility]y of 160-4.5 00:00: (two) [place] mcg/actuati 00 times Medical on inhaler daily. [facility] indomethaci 2020-0 Yes [id number] 50mg Take 1 [facility] n 50 mg 2-14 capsule by ity of capsule 00:00: mouth 3 [place] 00 (three) Medical times [facility] daily with meals. albuterol 2020-0 Yes [id number] 2{puff} Inhale 2 [facility] 90 2-14 Puffs ity of mcg/actuati 00:00: every 6 [place] [facility] on inhaler 00 (six) Medical hours as Branch needed for Wheezing or Shortness of Breath. levETIRAcet 2020-0 Yes [id number] 500mg Take 1 [facility] am (KEPPRA) 2-14 tablet by ity of 500 mg 00:00: mouth 2 [place] tablet 00 (two) Medical times [facility] daily. budesonide- 2020-0 Yes [id number] 2{puff} Inhale 2 [facility] formoteroL 2-14 Puffs 2 [facility]y of 160-4.5 00:00: (two) [place] mcg/actuati 00 times Medical on inhaler daily. [facility] indomethaci 2020-0 Yes [id number] 50mg Take 1 [facility] n 50 mg 2-14 capsule by ity of capsule 00:00: mouth 3 [place] 00 (three) Medical times [facility] daily with meals. albuterol 2020-0 Yes [id number] 2{puff} Inhale 2 [facility] 90 2-14 Puffs ity of mcg/actuati 00:00: every 6 [place] as on inhaler 00 (six) Medical hours as Branch needed for Wheezing or Shortness of Breath. levETIRAcet 2020-0 Yes [id number] 500mg Take 1 [facility] am (KEPPRA) 2-14 tablet by ity of 500 mg 00:00: mouth 2 [place] tablet 00 (two) Medical times [facility] daily. budesonide- 2020-0 Yes [id number] 2{puff} Inhale 2 [facility] formoteroL 2-14 Puffs 2 [facility]y of 160-4.5 00:00: (two) [place] mcg/actuati 00 times Medical on inhaler daily. [facility] indomethaci 2020-0 Yes [id number] 50mg Take 1 [facility] n 50 mg 2-14 capsule by ity of capsule 00:00: mouth 3 (three) Medical times [facility] daily with meals. albuterol 2020-0 Yes [id number] 2{puff} Inhale 2 [facility] 90 2-14 Puffs ity of mcg/actuati 00:00: every 6 [place] as on inhaler 00 (six) Medical hours as Branch needed for Wheezing or Shortness of Breath. levETIRAcet 2020-0 Yes [id number] 500mg Take 1 [facility] am (KEPPRA) 2-14 tablet by ity of 500 mg 00:00: mouth 2 [place] tablet 00 (two) Medical times [facility] daily. budesonide- 2020-0 Yes [id number] 2{puff} Inhale 2 [facility] formoteroL 2-14 Puffs 2 [facility]y of 160-4.5 00:00: (two) [place] mcg/actuati 00 times Medical on inhaler daily. [facility] indomethaci 2020-0 Yes [id number] 50mg Take 1 [facility] n 50 mg 2-14 capsule by ity of capsule 00:00: mouth 3 [place] 00 (three) Medical times [facility] daily with meals. albuterol 2020-0 Yes [id number] 2{puff} Inhale 2 [facility] 90 2-14 Puffs ity of mcg/actuati 00:00: every 6 [place] as on inhaler 00 (six) Medical hours as Branch needed for Wheezing or Shortness of Breath. levETIRAcet 2020-0 Yes [id number] 500mg Take 1 [facility] am (KEPPRA) 2-14 tablet by ity of 500 mg 00:00: mouth 2 [place] tablet 00 (two) Medical times [facility] daily. budesonide- 2020-0 Yes [id number] 2{puff} Inhale 2 [facility] formoteroL 2-14 Puffs 2 [facility]y of 160-4.5 00:00: (two) [place] mcg/actuati 00 times Medical on inhaler daily. [facility] indomethaci 2020-0 Yes [id number] 50mg Take 1 [facility] n 50 mg 2-14 capsule by ity of capsule 00:00: mouth 3 [place] 00 (three) Medical times [facility] daily with meals. albuterol 2020-0 Yes [id number] 2{puff} Inhale 2 [facility] 90 2-14 Puffs ity of mcg/actuati 00:00: every 6 [place] as on inhaler 00 (six) Medical hours as Branch needed for Wheezing or Shortness of Breath. levETIRAcet 2020-0 Yes [id number] 500mg Take 1 [facility] am (KEPPRA) 2-14 tablet by ity of 500 mg 00:00: mouth 2 [place] tablet 00 (two) Medical times [facility] daily. budesonide- 2020-0 Yes [id number] 2{puff} Inhale 2 [facility] formoteroL 2-14 Puffs 2 [facility]y of 160-4.5 00:00: (two) [place] mcg/actuati 00 times Medical on inhaler daily. [facility] indomethaci 2020-0 Yes [id number] 50mg Take 1 [facility] n 50 mg 2-14 capsule by ity of capsule 00:00: mouth 3 [place] 00 (three) Medical times [facility] daily with meals. albuterol 2020-0 Yes [id number] 2{puff} Inhale 2 [facility] 90 2-14 Puffs ity of mcg/actuati 00:00: every 6 [place] as on inhaler 00 (six) Medical hours as Branch needed for Wheezing or Shortness of Breath. levETIRAcet 2020-0 Yes [id number] 500mg Take 1 [facility] am (KEPPRA) 2-14 tablet by ity of 500 mg 00:00: mouth 2 [place] tablet 00 (two) Medical times [facility] daily. budesonide- 2020-0 Yes [id number] 2{puff} Inhale 2 [facility] formoteroL 2-14 Puffs 2 [facility]y of 160-4.5 00:00: (two) [place] mcg/actuati 00 times Medical on inhaler daily. [facility] indomethaci 2020-0 Yes [id number] 50mg Take 1 [facility] n 50 mg 2-14 capsule by ity of capsule 00:00: mouth 3 [place] 00 (three) Medical times [facility] daily with meals. albuterol 2020-0 Yes [id number] 2{puff} Inhale 2 [facility] 90 2-14 Puffs ity of mcg/actuati 00:00: every 6 [place] as on inhaler 00 (six) Medical hours as Branch needed for Wheezing or Shortness of Breath. levETIRAcet 2019-0 Yes [id number] 500mg Take 1 [facility] am (KEPPRA) 2-14 tablet by ity of 500 mg 00:00: mouth 2 [place] tablet 00 (two) Medical times Branch daily. budesonide- 2020-0 Yes [id number] 2{puff} Inhale 2 [facility] formoteroL 2-14 Puffs 2 ity of 160-4.5 00:00: (two) [place] mcg/actuati 00 times Medical on inhaler daily. [facility] indomethaci 2019-0 Yes [id number] 50mg Take 1 [facility] n 50 mg 2-14 capsule by ity of capsule 00:00: mouth 3 [place] 00 (three) Medical times Branch daily with meals. topiramate 2020-0 Yes [facility] 25 mg 1-28 ity of tablet 00:00: [place] [facility] Branch topiramate 2020-0 Yes Univers 25 mg 1-28 ity of tablet 00:00: [facility] topiramate 2020-0 Yes Univers 25 mg 1-28 ity of tablet 00:00: [facility] topiramate 2020-0 Yes Univers 25 mg 1-28 ity of tablet 00:00: [facility] topiramate 2020-0 Yes Univers 25 mg 1-28 ity of tablet 00:00: [place] [facility] topiramate 2020-0 Yes Univers 25 mg 1-28 ity of tablet 00:00: [facility] topiramate 2020-0 Yes Univers 25 mg 1-28 ity of tablet 00:00: [facility] topiramate 2020-0 Yes Univers 25 mg 1-28 ity of tablet 00:00: [place] [address] [facility] topiramate 2020-0 Yes Univers 25 mg 1-28 ity of tablet 00:00: [place] [address] [facility] topiramate 2020-0 Yes Univers 25 mg 1-28 ity of tablet 00:00: [address] Branch topiramate 2020-0 Yes Univers 25 mg 1-28 ity of tablet 00:00: [place] [address] [facility] Branch topiramate 2020-0 Yes Univers 25 mg 1-28 ity of tablet 00:00: [place] [address] [facility] topiramate 2020-0 Yes Univers 25 mg 1-28 ity of tablet 00:00: [address] Branch topiramate 2020-0 Yes Univers 25 mg 1-28 ity of tablet 00:00: [address] Branch topiramate 2020-0 Yes Univers 25 mg 1-28 ity of tablet 00:00: [address] topiramate 2020-0 Yes Univers 25 mg 1-28 ity of tablet 00:00: [address] topiramate 2020-0 Yes Univers 25 mg 1-28 ity of tablet 00:00: [address] topiramate 2020-0 Yes Univers 25 mg 1-28 ity of tablet 00:00: [address] topiramate 2020-0 Yes Univers 25 mg 1-28 ity of tablet 00:00: [address] topiramate 2020-0 Yes Univers 25 mg 1-28 ity of tablet 00:00: [address] topiramate 2020-0 Yes Univers 25 mg 1-28 ity of tablet 00:00: [address] topiramate 2020-0 Yes Univers 25 mg 1-28 ity of tablet 00:00: [place] [address] [facility] topiramate 2020-0 Yes Univers 25 mg 1-28 ity of tablet 00:00: [address] topiramate 2020-0 Yes Univers 25 mg 1-28 ity of tablet 00:00: [place] [address] [facility] topiramate 2020-0 Yes Univers 25 mg 1-28 ity of tablet 00:00: [place] [address] [facility] topiramate 2020-0 Yes Univers 25 mg 1-28 ity of tablet 00:00: [place] [address] [facility] topiramate 2020-0 Yes Univers 25 mg 1-28 ity of tablet 00:00: [place] [address] [facility] topiramate 2020-0 Yes Univers 25 mg 1-28 ity of tablet 00:00: [place] [facility] topiramate 2020-0 Yes Univers 25 mg 1-28 ity of tablet 00:00: [place] [facility] topiramate 2020-0 Yes Univers 25 mg 1-28 ity of tablet 00:00: [place] [address] [facility] topiramate 2020-0 Yes Univers 25 mg 1-28 ity of tablet 00:00: [place] [address] [facility] topiramate 2020-0 Yes Univers 25 mg 1-28 ity of tablet 00:00: [place] [address] [facility] topiramate 2020-0 Yes Univers 25 mg 1-28 ity of tablet 00:00: [place] [address] [facility] topiramate 2020-0 Yes Univers 25 mg 1-28 ity of tablet 00:00: [place] [address] [facility] topiramate 2020-0 Yes Univers 25 mg 1-28 ity of tablet 00:00: [place] [address] [facility] topiramate 2020-0 Yes Univers 25 mg 1-28 ity of tablet 00:00: [place] [address] [facility] carBAMazepi 2020-0 Yes Univer s ne 200 mg 1-20 ity of tablet 00:00: [place] [address] [facility] carBAMazepi 2020-0 Yes Univer s ne 200 mg 1-20 ity of tablet 00:00: [place] [address] [facility] carBAMazepi 2020-0 Yes Univer s ne 200 mg 1-20 ity of tablet 00:00: [place] [address] [facility] carBAMazepi 2020-0 Yes Univer s ne 200 mg 1-20 ity of tablet 00:00: [place] [address] [facility] carBAMazepi 2020-0 Yes Univer s ne 200 mg 1-20 ity of tablet 00:00: [place] [address] [facility] carBAMazepi 2020-0 Yes Univer s ne 200 mg 1-20 ity of tablet 00:00: [place] [address] [facility] carBAMazepi 2020-0 Yes Univer s ne 200 mg 1-20 ity of tablet 00:00: [place] [address] [facility] carBAMazepi 2020-0 Yes Univer s ne 200 mg 1-20 ity of tablet 00:00: [place] [address] [facility] carBAMazepi 2020-0 Yes Univer s ne 200 mg 1-20 ity of tablet 00:00: [place] [address] [facility] carBAMazepi 2020-0 Yes Univer s ne 200 mg 1-20 ity of tablet 00:00: [place] [facility] carBAMazepi 2020-0 Yes Univer s ne 200 mg 1-20 ity of tablet 00:00: [place] [facility] carBAMazepi 2020-0 Yes Univer s ne 200 mg 1-20 ity of tablet 00:00: [place] [facility] carBAMazepi 2020-0 Yes Univer s ne 200 mg 1-20 ity of tablet 00:00: [place] [address] [facility] carBAMazepi 2020-0 Yes Univer s ne 200 mg 1-20 ity of tablet 00:00: [place] [facility] carBAMazepi 2020-0 Yes Univer s ne 200 mg 1-20 ity of tablet 00:00: [place] [address] [facility] carBAMazepi 2020-0 Yes Univer s ne 200 mg 1-20 ity of tablet 00:00: [place] [address] [facility] carBAMazepi 2020-0 Yes Univer s ne 200 mg 1-20 ity of tablet 00:00: [place] [address] [facility] carBAMazepi 2020-0 Yes Univer s ne 200 mg 1-20 ity of tablet 00:00: [place] [address] [facility] carBAMazepi 2020-0 Yes Univer s ne 200 mg 1-20 ity of tablet 00:00: [place] [address] [facility] carBAMazepi 2020-0 Yes Univer s ne 200 mg 1-20 ity of tablet 00:00: [place] [address] [facility] carBAMazepi 2020-0 Yes Univer s ne 200 mg 1-20 ity of tablet 00:00: [place] [address] [facility] carBAMazepi 2020-0 Yes Univer s ne 200 mg 1-20 ity of tablet 00:00: [place] [address] [facility] carBAMazepi 2020-0 Yes Univer s ne 200 mg 1-20 ity of tablet 00:00: [place] [address] [facility] carBAMazepi 2020-0 Yes Univer s ne 200 mg 1-20 ity of tablet 00:00: [place] [address] [facility] carBAMazepi 2020-0 Yes Univer s ne 200 mg 1-20 ity of tablet 00:00: [place] [address] [facility] carBAMazepi 2020-0 Yes Univer s ne 200 mg 1-20 ity of tablet 00:00: [place] [address] [facility] carBAMazepi 2020-0 Yes Univer s ne 200 mg 1-20 ity of tablet 00:00: [place] [address] [facility] carBAMazepi 2020-0 Yes Univer s ne 200 mg 1-20 ity of tablet 00:00: [place] [address] [facility] carBAMazepi 2020-0 Yes Univer s ne 200 mg 1-20 ity of tablet 00:00: [place] [facility] carBAMazepi 2020-0 Yes Univer s ne 200 mg 1-20 ity of tablet 00:00: [place] [facility] carBAMazepi 2020-0 Yes Univer s ne 200 mg 1-20 ity of tablet 00:00: [address] carBAMazepi 2020-0 Yes Univer s ne 200 mg 1-20 ity of tablet 00:00: [place] [facility] carBAMazepi 2020-0 Yes Univer s ne 200 mg 1-20 ity of tablet 00:00: [place] [facility] carBAMazepi 2020-0 Yes Univer s ne 200 mg 1-20 ity of tablet 00:00: [place] [facility] carBAMazepi 2020-0 Yes Univer s ne 200 mg 1-20 ity of tablet 00:00: [address] carBAMazepi 2020-0 Yes Univer s ne 200 mg 1-20 ity of tablet 00:00: [address] [place] No [place] [...] inhaler inhaler aerosol inhaler Immunizations Ordered Filled Date Status Comments Source Immunization Name Immunization Name SARS-COV-2 COVID-2022-04-12 Completed Unive rsity of VACCINE - (MODERNA) 00:00:00 [facility] SARS-COV-2 COVID-19 2022-04-12 Completed Unive rsity of VACCINE - (MODERNA) 00:00:00 [facility] SARS-COV-2 COVID-19 2022-04-12 Completed Unive rsity of VACCINE - (MODERNA) 00:00:00 [facility] SARS-COV-2 COVID-19 2022-04-12 Completed Unive rsity of VACCINE - (MODERNA) 00:00:00 [facility] SARS-COV-2 COVID-19 2022-04-12 Completed Unive rsity of VACCINE - (MODERNA) 00:00:00 [facility] SARS-COV-2 COVID-19 2022-04-12 Completed Unive rsity of VACCINE - (MODERNA) 00:00:00 [facility] SARS-COV-2 COVID-19 2022-04-12 Completed Unive rsity of VACCINE - (MODERNA) 00:00:00 [facility] SARS-COV-2 COVID-19 2022-04-12 Completed Unive rsity of VACCINE - (MODERNA) 00:00:00 [facility] SARS-COV-2 COVID-19 2022-04-12 Completed Unive rsity of VACCINE - (MODERNA) 00:00:00 [facility] SARS-COV-2 COVID-19 2022-04-12 Completed Unive rsity of VACCINE - (MODERNA) 00:00:00 [facility] SARS-COV-2 COVID-19 2022-04-12 Completed Unive rsity of VACCINE - (MODERNA) 00:00:00 [facility] SARS-COV-2 COVID-19 2022-04-12 Completed Unive rsity of VACCINE - (MODERNA) 00:00:00 [facility] SARS-COV-2 COVID-19 2022-04-12 Completed Unive rsity of VACCINE - (MODERNA) 00:00:00 [facility] SARS-COV-2 COVID-19 2022-04-12 Completed Unive rsity of VACCINE - (MODERNA) 00:00:00 [facility] Branch SARS-COV-2 COVID-19 2022-04-12 Completed Unive rsity of VACCINE - (MODERNA) 00:00:00 [facility] SARS-COV-2 COVID-19 2022-04-12 Completed Unive rsity of VACCINE - (MODERNA) 00:00:00 [facility] Branch SARS-COV-2 COVID-19 2022-04-12 Completed Unive rsity of VACCINE - (MODERNA) 00:00:00 [facility] SARS-COV-2 COVID-19 2021-10-12 Completed Unive [...] rsity of MODERNA 12+ YRS 00:00:[address] [place] [facility] ical VACCINE Branch SARS-COV-2 COVID-19 2021-09-14 Completed Unive rsity of MODERNA 12+ YRS 00:00:[address] [place] [facility] ical VACCINE Branch SARS-COV-2 COVID-19 2021-09-14 Completed Unive rsity of MODERNA 12+ YRS 00:00:[address] [place] [facility] ical VACCINE Branch SARS-COV-2 COVID-19 2021-09-14 Completed Unive rsity of MODERNA 12+ YRS 00:00:[address] [place] [facility] ical VACCINE Branch SARS-COV-2 COVID-19 2021-09-14 Completed Unive rsity of MODERNA 12+ YRS 00:00:[address] [place] [facility] ical VACCINE Branch SARS-COV-2 COVID-19 2021-09-14 Completed Unive rsity of MODERNA 12+ YRS 00:00:00 [facility] VACCINE Branch Influenza Virus 2018-12-16 Completed Universit y of Vaccine Quad IM 3+ 00:00:00 [facility] Influenza Virus 2018-12-16 Completed Universit y of Vaccine Quad IM 3+ 00:00:00 [facility] Influenza Virus 2018-12-16 Completed Universit y of Vaccine Quad IM 3+ 00:00:00 [facility] Influenza Virus 2018-12-16 Completed Universit y of Vaccine Quad IM 3+ 00:00:00 [facility] Influenza Virus 2018-12-16 Completed Universit y of Vaccine Quad IM 3+ 00:00:00 [facility] Influenza Virus 2018-12-16 Completed Universit y of Vaccine Quad IM 3+ 00:00:00 [facility] Influenza Virus 2018-12-16 Completed Universit y of Vaccine Quad IM 3+ 00:00:00 [facility] Influenza Virus 2018-12-16 Completed Universit y of Vaccine Quad IM 3+ 00:00:00 [facility] Influenza Virus 2018-12-16 Completed Universit y of Vaccine Quad IM 3+ 00:00:00 [facility] Influenza Virus 2018-12-16 Completed Universit y of Vaccine Quad IM 3+ 00:00:00 [facility] Influenza Virus 2018-12-16 Completed Universit y of Vaccine Quad IM 3+ 00:00:00 [facility] Influenza Virus 2018-12-16 Completed Universit y of Vaccine Quad IM 3+ 00:00:00 [facility] Influenza Virus 2018-12-16 Completed Universit y of Vaccine Quad IM 3+ 00:00:00 [facility] Influenza Virus 2018-12-16 Completed Universit y of Vaccine Quad IM 3+ 00:00:00 [facility] Influenza Virus 2018-12-16 Completed Universit y of Vaccine Quad IM 3+ 00:00:00 [facility] Influenza Virus 2018-12-16 Completed Universit y of Vaccine Quad IM 3+ 00:00:00 [facility] Influenza Virus 2018-12-16 Completed Universit y of Vaccine Quad IM 3+ 00:00:00 [facility] Influenza Virus 2018-12-16 Completed Universit y of Vaccine Quad IM 3+ 00:00:00 [facility] Influenza Virus 2018-12-16 Completed Universit y of Vaccine Quad IM 3+ 00:00:00 [facility] Influenza Virus 2018-12-16 Completed Universit y of Vaccine Quad IM 3+ 00:00:00 [facility] Influenza Virus 2018-12-16 Completed Universit y of Vaccine Quad IM 3+ 00:00:00 [facility] Influenza Virus 2018-12-16 Completed Universit y of Vaccine Quad IM 3+ 00:00:00 [facility] Influenza Virus 2018-12-16 Completed Universit y of Vaccine Quad IM 3+ 00:00:00 [facility] Influenza Virus 2018-12-16 Completed Universit y of Vaccine Quad IM 3+ 00:00:00 [facility] Influenza Virus 2018-12-16 Completed Universit y of Vaccine Quad IM 3+ 00:00:00 [facility] Influenza Virus 2018-12-16 Completed Universit y of Vaccine Quad IM 3+ 00:00:00 [facility] Influenza Virus 2018-12-16 Completed Universit y of Vaccine Quad IM 3+ 00:00:00 [facility] Influenza Virus 2018-12-16 Completed Universit y of Vaccine Quad IM 3+ 00:00:00 [facility] Influenza Virus 2018-12-16 Completed Universit y of Vaccine Quad IM 3+ 00:00:00 [facility] Influenza Virus 2018-12-16 Completed Universit y of Vaccine Quad IM 3+ 00:00:00 [facility] Influenza Virus 2018-12-16 Completed Universit y of Vaccine Quad IM 3+ 00:00:00 [facility] Influenza Virus 2018-12-16 Completed Universit y of Vaccine Quad IM 3+ 00:00:00 [facility] Influenza Virus Unknown Completed Universit y of Vaccine Quad IM 3+ [facility] SARS-COV-2 COVID-19 Unknown Completed Unive rsity of MODERNA 12+ YRS [place] [facility] VACCINE [facility] SARS-COV-2 COVID-19 Unknown Completed Unive rsity of MODERNA 12+ YRS [place] [facility] VACCINE [facility] SARS-COV-2 COVID-19 Unknown Completed Unive rsity of VACCINE - (MODERNA) [facility] Influenza Virus Unknown Completed Universit y of Vaccine Quad IM 3+ [facility] SARS-COV-2 COVID-19 Unknown Completed Unive rsity of MODERNA 12+ YRS [place] [facility] VACCINE [facility] SARS-COV-2 COVID-19 Unknown Completed Unive rsity of MODERNA 12+ YRS [place] [facility] VACCINE [facility] SARS-COV-2 COVID-19 Unknown Completed Unive rsity of VACCINE - (MODERNA) [facility] Influenza Virus Unknown Completed Universit y of Vaccine Quad IM 3+ [facility] SARS-COV-2 COVID-19 Unknown Completed Unive rsity of MODERNA 12+ YRS [place] [facility] VACCINE [facility] SARS-COV-2 COVID-19 Unknown Completed Unive rsity of MODERNA 12+ YRS [place] [facility] VACCINE [facility] SARS-COV-2 COVID-19 Unknown Completed Unive rsity of VACCINE - (MODERNA) [facility] Influenza Virus Unknown Completed Universit y of Vaccine Quad IM 3+ [facility] Vital Signs Vital Name Observation Time Observation Value Comments Source Systolic blood 2023-07-24 19:42:00 108 mm[Hg] Univer sity of pressure [place] [facility] Diastolic blood 2023-07-24 19:42:00 77 mm[Hg] Unive rsity of pressure [facility] Heart rate 2023-07-24 19:42:00 89 /min [facility]i [facility] [place] [facility] Respiratory rate 2023-07-24 19:42:00 18 /min Univ ersity of [place] [facility] Body height 2023-07-24 19:42:00 162.6 cm [facility] [place] [facility] Body weight 2023-07-24 19:42:00 102.967 kg [facility] [place] [facility] BMI 2023-07-24 19:42:00 38.96 kg/m2 [facility] [place] [facility] Systolic blood 2022-12-29 14:32:00 116 mm[Hg] Univer sity of pressure [place] [facility] Diastolic blood 2022-12-29 14:32:00 80 mm[Hg] Unive rsity of pressure [facility] Heart rate 2022-12-29 14:32:00 82 /min [facility] [place] [facility] Body temperature 2022-12-29 14:32:00 36.72 Sury Univ ersity of [place] [facility] Respiratory rate 2022-12-29 14:32:00 18 /min Univ ersity of [place] [facility] Body height 2022-12-29 14:32:00 162.6 cm [facility] [place] [facility] Body weight 2022-12-29 14:32:00 109.226 kg [facility] [place] [facility] BMI 2022-12-29 14:32:00 41.33 kg/m2 [facility] [place] [facility] Systolic blood 2022-11-15 22:35:00 115 mm[Hg] Univer sity of pressure [place] [facility] Diastolic blood 2022-11-15 22:35:00 77 mm[Hg] Unive rsity of pressure [place] [facility] Heart rate 2022-11-15 22:35:00 74 /min [facility] [place] [facility] Body temperature 2022-11-15 22:35:00 36.67 Sury Univ ersity of [place] [facility] Respiratory rate 2022-11-15 22:35:00 18 /min Univ ersity [facility] [place] [facility] Body height 2022-11-15 22:35:00 162.6 cm [facility] [place] [facility] Body weight 2022-11-15 22:35:00 111.041 kg [facility] [place] [facility] BMI 2022-11-15 22:35:00 42.02 kg/m2 Universi ty of [facility] Systolic blood 2022-10-31 21:55:00 120 mm[Hg] Univer sity of pressure [place] [facility] Diastolic blood 2022-10-31 21:55:00 82 mm[Hg] Unive rsity of pressure [facility] Heart rate 2022-10-31 21:55:00 90 /min [facility]i [facility] [place] [facility] Respiratory rate 2022-10-31 21:55:00 18 /min Univ ersity of [facility] Body height 2022-10-31 21:55:00 162.6 cm [facility] [place] [facility] [place] Body weight 2022-10-31 21:55:00 111.131 kg [facility] [place] [facility] [place] BMI 2022-10-31 21:55:00 42.05 kg/m2 [facility] [place] [facility] Systolic blood 2022-10-18 15:58:00 110 mm[Hg] Univer sity of pressure [place] [facility] Diastolic blood 2022-10-18 15:58:00 75 mm[Hg] Unive rsity of pressure [facility] Heart rate 2022-10-18 15:58:00 92 /min Universi ty [facility] [place] [facility] [place] Body temperature 2022-10-18 15:58:00 36.89 Sury Univ ersity of [place] [facility] Respiratory rate 2022-10-18 15:58:00 16 /min Univ ersity [facility] [place] [facility] Body height 2022-10-18 15:58:00 162.6 cm [facility] [place] [facility] Body weight 2022-10-18 15:58:00 110.678 kg [facility] [place] [facility] BMI 2022-10-18 15:58:00 41.88 kg/m2 [facility] [place] [facility] Oxygen saturation in 2022-10-18 15:58:00 97 /min University Arterial blood by [facility] Pulse oximetry Branch HEIGHT 2021-12-17 23:33:00 162.6 cm WEIGHT 2021-12-17 21:14:00 104.781 kg HEIGHT 2021-12-17 23:33:00 162.6 cm WEIGHT 2021-12-17 21:14:00 104.781 kg Systolic blood 2021-12-12 22:09:00 119 mm[Hg] Univer sity of pressure [facility] Diastolic blood 2021-12-12 22:09:00 76 mm[Hg] Unive rsity of [facility] Heart rate 2021-12-12 22:09:00 106 /min Universi ty [facility] Body temperature 2021-12-12 22:09:00 [facility].83 [facility] 2021-12-12 22:09:00 162.6 cm Universi ty [facility] Body weight 2021-12-12 22:09:00 105.96 kg Universi [facility] BMI 2021-12-12 22:09:00 40.10 kg/m2 [facility] Oxygen saturation in 2021-12-12 22:09:00 98 [facility] by [facility] Pulse oximetry Branch BP Diastolic 2020-04-13 00:00:00 83 mm[Hg] [facility] Height 2020-04-13 00:00:00 64 [in_i[facility] BMI (Body Mass 2020-04-13 00:00:00 36.5 kg/m2 [facility] 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) Group BP Systolic 2020-04-13 00:00:00 118 mm[Hg] [facility] Body Weight 2020-04-13 00:00:00 212.8 [lb_av] [facility] Respiratory rate 2021-12-18 12:35:00 18 /min [facility] Oxygen saturation in 2021-12-18 12:35:00 96 /min [facility] Arterial blood by [facility] Pulse oximetry Systolic blood 2021-12-18 12:35:00 120 mm[Hg] [facility] Diastolic blood 2021-12-18 12:35:00 90 mm[Hg] [facility] Heart rate 2021-12-18 12:35:00 79 /min [facility] Body temperature 2021-12-18 12:35:00 36.56 Sury [facility] Body height 2021-12-17 23:33:00 162.6 cm [facility] Body weight 2021-12-17 21:14:00 104.781 kg [facility] BMI 2021-12-17 21:14:00 39.65 kg/m2 [facility] Procedures Procedure Date / Time Performing Clinician Source Performed US PELVIS COMPLETE WITH 2023-02-02 16:35:18 [facility] 2022-12-29 15:22:00 Dulce Weeks [facility] PATIENT FINANCIAL 2022-12-29 14:22:26 Doctor Dipak, [facility] POLICY [facility] GC & CHLAMYDIA AMPLIFIED 2022-11-15 22:38:00 Jose Angel Peralta [facility] TRICHOMONAS AMPLIFIED 2022-11-15 22:38:00 Jose Angel Peralta [facility] CONSENT FOR CONTRACEPTION 2022-11-15 06:01:00 Doctor Quesada [facility] US PELVIS COMPLETE WITH 2022-10-31 00:48:02 Jose Angel Peralta [facility] NOTICE OF PRIVACY 2022-10-31 00:03:57 Doctor Quesada, [facility] PRACTICES [facility] CONSENT/REFUSAL FOR 2022-10-31 00:03:31 Doctor Quesada [facility] DIAGNOSIS AND TREATMENT [facility] ASSIGNMENT OF BENEFITS 2022-10-31 00:03:08 Doctor Dipak, [facility] Name Medical Branch POCT TEST 2022-10-31 00:00:00 Jose Angel Peralta [facility] INSURANCE CORRESPONDENCE 2022-10-25 06:01:00 Doctor Quesada [facility] CBC WITH DIFF 2022-10-18 17:18:00 Jose nAgel Peralta [facility] ASSIGNMENT OF BENEFITS 2022-10-18 15:41:13 Doctor Quesada [facility] [place] [facility] URINALYSIS W/ REFLEX 2021-12-18 10:11:00 Marylu Tiwari I [facility] URINE CULTURE Center BLOOD CULTURE 2021-12-18 03:39:00 Chad Dickey [facility] BASIC METABOLIC PANEL 2021-12-18 03:39:00 ConniedennisChad Clemente HI [facility] CBC W/PLT COUNT & AUTO 2021-12-18 03:39:[address] [facility] DIFFERENTIAL Center CBC W/PLT COUNT & AUTO 2021-12-18 03:39:00 [facility] DIFFERENTIAL Center BLOOD CULTURE 2021-12-17 23:54:00 [facility] EKG-SCANNED 2021-12-17 00:00:[address] [facility] Medical Scanning [place] Plan of Care Planned Activity Planned Date [...] Test 00:00:00 (12+) [code = DEPRESSION Med [facility] SCREENING (12+)] Diagnostic Test 2020-04-13 CBC w/ auto diff [code = [facility] Pending 00:00:00 CBC w/ auto diff] Group Diagnostic Test 2020-04-13 CMP, serum or plasma Chavez manolo [facility] Pending 00:00:00 [code = CMP, serum or Group plasma] Diagnostic Test 2020-04-13 lipid panel, serum [code [facility] Pending 00:00:00 = lipid panel, serum] Group Diagnostic Test 2020-04-13 HBsAg (hepatitis B [place] field 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 coordinator Medical Pending 00:00:00 surface Ag), serum [code [...] Test 2020-04-13 TSH + free T4, serum [facility] Pending 00:00:00 [code = TSH + free T4, Group serum] Diagnostic Test 2020-04-13 pap, LB + HPV [code = [facility] Pending 00:00:00 pap, LB + HPV] Group Diagnostic Test 2020-04-13 CT + NG + TV, DNA, Lavinia fraga Medical Pending 00:00:00 urine/swab [code = CT + Grou p NG + TV, DNA, urine/swab] Future Scheduled 2011 Screening for malignant [facility] Test 00:00:00 neoplasm of cervix Medical C enter (procedure) [code = 995143999] Future Scheduled 2011 Screening for malignant [facility] Test 00:00:00 neoplasm of cervix Medical C enter (procedure) [code = 786752278] Future Scheduled 2011 Screening for malignant [facility] Test 00:00:00 neoplasm of cervix Medical C enter (procedure) [code = 757983196] Future Scheduled 2011 Screening for malignant [facility] Test 00:00:00 neoplasm of cervix Medical C enter (procedure) [code = 475560323] Future Scheduled 2011 Screening for malignant [facility] Test 00:00:00 neoplasm of cervix Medical C enter (procedure) [code = 950561286] Future Scheduled 2011 Screening for malignant [facility] 00:00:00 neoplasm of cervix Medical C enter (procedure) [code = 742234173] Future Scheduled 2011 Screening for malignant [facility] 00:00:00 neoplasm of cervix Medical C enter (procedure) [code = 467228229] Future Scheduled 2011 Screening for malignant [facility] 00:00:00 neoplasm of cervix Medical C enter (procedure) [code = 406264709] Future Scheduled 2010 Lipid panel (procedure) [facility] 00:00:00 [code = 60164164] Medical Ce nter Future Scheduled 2010 Lipid panel (procedure) [facility] 00:00:00 [code = 06548550] Medical Ce nter Future Scheduled 2010 Lipid panel (procedure) [facility] 00:00:00 [code = 63708782] Medical Ce nter Future Scheduled 2010 Lipid panel (procedure) [facility] 00:00:00 [code = 52068673] Medical Ce nter Future Scheduled 2010 Lipid panel (procedure) [facility] 00:00:00 [code = 49254255] Medical Ce nter Future Scheduled 2010 Lipid panel (procedure) [facility] 00:00:00 [code = 63385635] Medical Ce nter Future Scheduled 2010 Lipid panel (procedure) [facility] 00:00:00 [code = 50605080] Medical Ce nter Future Scheduled 2010 Lipid panel (procedure) [facility] 00:00:00 [code = 51148267] Medical Ce nter Future Scheduled 2009 DTAP/TDAP/TD [...] screening [facility] [code = 262466836] Future Scheduled [address] [facility] virus screening [facility] (procedure) [code = 531774749] Future Scheduled [address] [facility] 00:[facility]:00 virus screening [facility] (procedure) [code = 149289928] Future Scheduled [address] [facility] 00:[facility]:00 virus screening [facility] (procedure) [code = 424970053] Future Scheduled [address] [facility] 00:00:00 Counseling and Screening [facility] (12+) [code = Tobacco Cessation Counseling and [...] Type Clinicians Facility Department ID 2021-08-30 Emergency [facility] [id number] Univers 00:49:50 [facility] 2024-08-01 2024-08-01 Outpatient R ISHAN BENNETT [facility] [id number] Univers 10:30:00 10:30:00 [facility] 2024-07-28 2024-07-28 Outpatient R OJSE ANGEL PERALTA [facility] [id number] Univers 14:00:00 14:00:00 JOSE ANGEL PERALTA [facility] 2023-07-30 2023-07-30 Outpatient R JOSE ANGEL PERALTA [facility] B [id number] Univers 14:00:00 14:00:00 JOSE ANGEL PERALTA [facility] 2023-07-27 2023-07-27 Telephone Gina [facility] 1.2.840.11 [id number] Univers 00:00:00 00:00:00 Ashleigh suresh 350.1.13.10 ity of PEDI[place]IC [place] [facility] [id number] [facility] [address] 2023-07-24 2023-07-24 Outpatient R FABIAN JOSE ANGEL [facility] B [id number] Univers 15:00:00 15:09:13 [facility] 2023-07-24 2023-07-24 Office [facility] 1.2.840.114 [id number] Univers 15:00:00 15:09: Visit Jose Angel SHEBA 350.1.13.10 it y of WOMEN'S 4.2.7.2.686 [facility] [id number] [address] 2023-05-31 2023-05-31 Outpatient R FABIAN JOSE ANGEL [facility] B [id number] Univers 16:30:00 16:30:00 [facility] 2023-02-02 2023-02-02 Outpatient R JOSE ANGEL PERALTA [facility] B [id number] Univers 10:57:29 23:59:00 [facility] 2023-02-02 2023-02-02 [facility] 1.2.840.114 [id number] Univers 10:57:29 23:59:00 Encounter Jose Angel WHALEY 350.1.13.10 ity of [place] 4.2.7.2.686 [facility] [phone] [facility] [address] 2023-01-08 2023-01-08 Telephone [facility] 1.2.466.497 [id number] Univers 00:00:00 00:00:00 Dulce WHALEY 350.1.13.10 ity of [facility] 4.2.7.2.686 [place] [facility] [id number] [address] 2023-01-02 2023-01-02 Patient [facility] 1.2.840.114 [id number] Univers 00:00:00 00:00:00 Secure Msg Zelda Hernandez JOVANA 350.1.13.10 ity of [place] [id number] [address] 2023-01-02 2023-01-02 Telephone [facility] 1.2.840.114 10 [id number] Univers 00:00:00 00:00:00 Dulce SCRUGGS 350.1.13.10 i ty of [place] [facility] [phone] [address] 2022-12-29 2022-12-29 Outpatient R [facility] [id number] Univers 09:00:00 09:23:08 DULCE ity of [facility] 2022-12-29 2022-12-29 Office [facility] 1.2.840.114 [id number] Univers 09:00:00 09:23:08 Visit Dulce WHALEY 350.1.13.10 ity of [place] [phone] [address] 2022-12-29 2022-12-29 Orders Doctor AMBREEN 1.2.840.114 [id number] Univers 00:00:00 00:00:00 Only Unassigned, DONY 350.1.13.10 ity of [place] [facility] 4.2.7.2.686 [place] as [phone] [address] 2022-12-29 2022-12-29 Letter [facility] 1.2.840.114 [id number] Univers 00:00:00 00:00:00 (Out) Dulce WHALEY 350.1.13.10 ity of [place] [id number] [address] 2022-12-28 2022-12-28 Telephone [facility] 1.2.840.11 4 [id number] Univers 00:00:00 00:00:00 Jose Angel SCRUGGS 350.1.13.10 it y of [place].2.[place].2.[place] [id number] [address] 2022-12-28 2022-12-28 Telephone [facility] 1.2.840.11 4 [id number] Univers 00:00:00 00:00:00 Jose Angel SCRUGGS 350.1.13.10 it y of [place] 4.2.[place].2.[place] [id number] [address] 2022-11-15 2022-11-15 Office [facility] 1.2.840.114 [id number] Univers 15:00:00 17:23:28 Visit Jose Angel SCRUGGS 350.1.13.10 it y of [place] 4.[place].2.[place] [id number] [address] 2022-11-15 2022-11-15 Outpatient R [facility] [id number] Univers 15:00:00 17:23:28 JOSE ANGEL PERALTA [facility] 2022-11-15 2022-11-15 Orders Doctor AMBREEN 1.2.840.114 [id number] Univers 00:00:00 00:00:00 Only Unassigned, DONY 350.1.13.10 ity of [place] [facility] 4.2.7.2.686 [place] as [id number] [facility] [address] 2022-11-08 2022-11-08 Pre Visit DENNIS Mayen 1.2.276.403 [id number] Univers 00:00:00 00:00:00 Outreach Khloe SIMMS 350.1.13.10 i ty of [place].2.[place] [id number] [facility] [address] 2022-10-31 2022-10-31 Office [facility] 1.2.840.114 [id number] Univers 16:30:00 16:30:00 Visit Jose Angel SCRUGGS 350.1.13.10 it y of WOMEN'S 4.2.7.2.686 [facility] [id number] [facility] [address] 2022-10-31 2022-10-31 Outpatient R [facility]AL [facility] [id number] Univers 16:30:00 16:13:04 [facility] 2022-10-30 2022-10-30 Outpatient R ANIBAL [facility] [id number] Univers 18:05:11 23:59:00 [facility]O ity [facility] 2022-10-30 2022-10-30 [facility] 1.2.840.114 [id number] Univers 18:05:11 23:59:00 Encounter Jose Angel [place] 350.1.13.10 ity of [place] 4.2.7.2.686 [facility] [phone] [facility] [address] 2022-10-27 2022-10-27 Telemedici Prisca Vilchis [facility] 1.2.8 40.114 [id number] Univers 10:30:00 10:30:00 ne Visit Cyrus Shultz MEDICAL DIRECTOR OF HOSPICE 350.1.13.10 ity of [facility] 4.2.7.2.686 [place] as MATERNAL [phone] Med ical & CHILD [address] [place] [address] 2022-10-27 2022-10-27 Outpatient R CYRUS SHULTZ [facility] [id number] Univers 10:30:00 10:23:21 ity of [facility] 2022-10-25 2022-10-25 [facility] 1.2.840.11 [id number] Univers 00:00:00 00:00:00 Jose Angel SHEBA 350.1.13.10 it y of WOMEN'S 4.2.7.2.686 [facility] [phone] [address] 2022-10-25 2022-10-25 Orders Doctor CROOK 1.2.840.114 [id number] Univers 00:00:00 00:00:00 Only Unassigned, DONY 350.1.13.10 ity of [place] [facility] 4.2.7.2.686 [place] as [id number] [facility] [address] 2022-10-20 2022-10-20 Telephone Fabian [facility] 1.2.840.11 [id number] Univers 00:00:00 00:00:00 Jose Angel S[place] 350.1.13.10 it y of [place].2.[place] [id number] [facility] [address] 2022-10-18 2022-10-18 Turbine Attendant Deniz, Valerie Lab Main [facility] 1.2.8 40.114 [id number] Univers 11:30:00 11:45:00 Visit Jose Angel Peralta 350.1.13. 10 ity of [place].2.7.2.[place] [phone] Ky dical [facility] 353 [facility] 2022-10-18 2022-10-18 Outpatient R JOSE ANGEL PERALTA [facility] B [id number] Univers 10:00:00 10:16:19 JOSE ANGEL PERALTA ity [facility] 2022-10-18 2022-10-18 Office [facility] 1.2.840.114 [id number] Univers 10:00:00 10:16:19 Visit Jose Angel SCRUGGS 350.1.13.10 it y of [place] 4.2.7.2.[place] [id number] [facility] [address] 2022-10-18 2022-10-18 Orders Doctor CROOK 1.2.840.114 [id number] Univers 00:00:00 00:00:00 Only Unassigned, DONY 350.1.13.10 ity of [place] [facility]OS[facility] 4.2.7.2.686 [place] as [id number] [facility] [address] 2022 2022 Outpatient DICYESICA NOLASCO [address] [place] 00:00:00 00:00:00 [facility]ITA [facility] 2021-12-22 2021-12-22 Outpatient R ISHAN BENNETT [facility] [id number] Univers 08:30:00 08:30:00 ity [facility] 2021-12-22 2021-12-22 Outpatient ISHAN MARION [facility] [id number] Univers 08:30:00 08:30:00 ity [facility] 2021-12-21 2021-12-21 Outpatient ISHAN MARION [facility] [id number] Univers 15:00:00 15:00:00 ity [facility] 2021-12-17 2021-12-18 Inpatient BETHANY TIWARI [facility] Neurology [id number] [facility] 21:02:00 15:18:00 MARYLU 2021-12-17 2021-12-18 Hospital BETHANY Brett Hansen [facility] [id number] [facility] 21:02:00 15:18:00 Encounter Edgardo Jacobs [facility] 2021-12-18 2021-12-18 Travel [facility] [id number] [facility] 00:00:00 00:00:00 [facility] 2021-12-14 2021-12-14 Telephone [facility] 1.2.597.232 [id number] Univers 00:00:00 00:00:00 Nila HEALTH 350.1.13.10 it y of [place] 4.2.7.2.686 [place] as BARRON?BLEA [id number] [address] OFFICE [facility] 2021-12-13 2021-12-13 Telephone [facility] 1.2.421.057 [id number] Univers 00:00:00 00:00:00 Nila HEALTH 350.1.13.10 it y of [place] 4.2.7.2.686 [place] as BARRON?BLEA [id number] [address] OFFICE [facility] 2021-12-13 2021-12-13 Telephone [facility] 1.2.268.294 [id number] Univers 00:00:00 00:00:00 Nila HEALTH 350.1.13.10 it y of [place] 4.2.7.2.686 [place] as BARRON?BLEA [id number] [address] OFFICE [facility] 2021-12-13 2021-12-13 Telephone Amanda [facility] 1.2.392.237 [id number] Univers 00:00:00 00:00:00 Nila [facility] 350.1.13.10 it y of [place] 4.2.7.2.686 [place] as BARRON?BLEA [id number] [address] OFFICE [facility] 2021-12-12 2021-12-12 Out[facility] [id number] Univers 16:00:00 16:51:41 NILA rigo [facility] 2021-12-12 2021-12-12 Office [facility] 1.2.840.114 [id number] Univers 16:00:00 16:51:41 Visit Nila [facility] 350.1.13.10 it y of [place] 4.2.7.2.686 Elan as BARRON?BLEA [id number] [address] OFFICE [facility] 2021-12-12 2021-12-12 Outpatient [facility] [id number] Univers 16:00:00 16:51:41 NILA rigo [facility] 2021-12-12 2021-12-12 Letter [facility] 1.2.840.114 [id number] Univers 00:00:00 00:00:00 (Out) Nila [facility] 350.1.13.10 it y of [place] 4.2.7.2.686 [place] as BARRON?BLEA [id number] [address] OFFICE [facility] 2021-10-12 2021-10-12 Outpatient R LYDIA [facility] [id number] Univers 09:10:00 09:10:00 ZELDA angulo [facility] 2021-10-12 2021-10-12 Outpatient R JOHN [facility] [id number] Univers 09:00:00 09:00:00 AIDAN angulo [facility] 2021-10-12 2021-10-12 Imm/Inj Nurse, Adc Pob Immunization [facility] 1.2.840.114 [id number] Univers 09:00:00 09:00:00 Visit Aidan Reynoso 350.1.13 .10 ity of [facility] 4.2.7.2.[place] [phone] [address] 2021-10-12 2021-10-12 Outpatient R JOHN [facility] [id number] Univers 08:00:00 08:00:00 AIDAN angulo [facility] 2021-09-14 2021-09-14 Outpatient R JOHN [facility] [id number] Univers 09:30:00 09:30:00 AIDAN angulo [facility] 2021-09-14 2021-09-14 Imm/Inj Nurse, Adc Pob Immunization [facility] 1.2.840.114 [id number] Univers 09:01:10 09:01:24 Visit Aidan Reynoso 350.1.13 .10 ity of [facility] 4.2.7.2.[place] [phone] [address] 2021-08-20 2021-08-20 [facility]il[facility] 1.2.840.114 [id number] Univers 00:00:00 00:00:00 [facility] 350.1.13.10 it y of [place] 4.2.7.2.686 [place] as BARRON?BLEA [phone] [address] OFFICE [facility] 2021-08-04 2021-08-04 Patient Doctor AMBREEN 1.2.840.114 [id number] Univers 00:00:00 00:00:00 Secure Msg Unassigned, DONY 350.1.13.10 ity of [place] [facility] 4.2.7.2.686 [place] as [id number] [address] 2021-07-29 2021-07-29 Gisell Person [facility] 1.2.840.114 [id number] Univers 10:14:01 10:34:01 Care Unknown, Attending Health 350.1.13.10 ity of [place] 4.2.7.2.686 [place] as Barron?Blea [id number] [address] Medical Office [facility] 2021-07-29 2021-07-29 Outpatient R WATSON [facility] [id number] Univers 10:20:00 10:20:00 ATTENDING ity of [facility] 2021-07-21 2021-07-21 Emergency Vanessa Eduardo [facility] 1.2.840.114 [id number] Univers 10:06:00 11:06:00 Josefina Jovana 350.1.13.10 i ty of [place].2.[place] [id number] [facility] [address] 2021-07-19 2021-07-19 Orders Doctor AMBREEN 1.2.840.114 [id number] Univers 00:00:00 00:00:00 Only Unassigned, DONY 350.1.13.10 ity of [place] [facility] 4.2.7.2.686 Elan as [id number] [facility] [address] 2021-07-05 2021-07-05 Telephone [facility] 1.2.840.114 [id number] Univers 00:00:00 00:00:00 Zelda Whaley 350.1.13.10 ity of [place].2.[place] [phone] [place] dical [facility] 231 [facility] 2021-06-02 2021-06-02 Laboratory Lab, [facility] Fam Pob I [facility] 1.2. 840.114 [id number] Univers 20:27:39 20:47:39 Only Airs, [facility] 350.1.13.10 ity of [place] 4.2.7.2.686 [place] Professio [phone] [place] dical nal [address] 2021-06-02 2021-06-02 Laboratory Lab, [facility] 1.2.840.114 [id number] 20:27:39 20:47:39 Only Fam Pob I Health 350.1.13.10 [place] 4.2.7.2.686 Professio [phone] nal [address] 2021-06-02 2021-06-02 Outpatient R ARIS, [facility] [id number] Univers 20:20:00 20:20:00 RANIA ity of [facility] 2021-06-02 2021-06-02 Outpatient DICLEMENTE_ [facility] [address] [place] 11:05:00 11:05:00 NENITA Zaidi [facility] 2021-06-02 2021-06-02 Orders Doctor AMBREEN 1.2.840.114 [id number] Univers 00:00:00 00:00:00 Only Unassigned, DONY 350.1.13.10 ity of [place] [facility] 4.2.7.2.686 [place] as [phone] [address] 2021-06-02 2021-06-02 Telephone [facility] 1.2.840.114 [id number] Univers 00:00:00 00:00:00 Zelda Whaley 350.1.13.10 ity of [place] [phone] Ky dic[address] 2021-06-02 2021-06-02 Orders Doctor AMBREEN 1.2.840.114 [id number] 00:00:00 00:00:00 Only Unassigned, DONY 350.1.13.10 [place] [facility] 4.2.7.2.686 [phone] [facility] 2021-06-02 2021-06-02 [facility] 1.2.840.114 [id number] 00:00:00 00:00:00 Zelda Whaley 350.1.13.10 Counce 4.2.7.2.686 Professio [phone] [address] 2021-01-18 2021-01-18 Patient John MDJOSE ENRIQUE 1.2.840.114 [id number] Univers 00:00:00 00:00:00 Outreach Aidan PRIMARY 350.1.13.10 i ty of Julio C [facility] 4.2.7.2.686 [place] PAV[place]ION [phone] [place] dical [address] 2021-01-18 2021-01-18 Patient John MDJOSE ENRIQUE 1.2.840.114 [id number] 00:00:00 00:00:00 Outreach Aidan PRIMARY 350.1.13.10 Julio C CARE 4.2.7.2.686 PAVILLION [id number] 388 2020-09-15 2020-09-15 Outpatient cMcDonald MMG [facility] [id number] [place] 02:40:00 02:40:00 1118 [facility] Group 2020-09-15 2020-09-15 [place] [id number] [place] 00:00:00 00:00:00 0831 [facility] 2020-05-24 2020-05-24 Outpatient Wendy FREEMAN, [facility] [id number] Univers 08:40:00 08:40:00 ZELDA angulo [facility] 2020-04-14 2020-04-14 Outpatient cMcDonald MMG [facility] [id number] [place] 05:40:00 05:40:00 0619 Medical Group 2020-04-13 2020-04-13 Outpatient cMcDonald MMG [facility] [id number] [place] 07:38:00 07:38:00 0616 [facility] 2020-04-13 2020-04-13 Maia [facility] [place] - [id number] M atagor 00:00:00 00:00:00 Alex Cazares Medical Medica brina MD: [address] [facility] [address], [place] [address] , Ph. [phone] 2020-01-23 2020-03-12 [facility] 1.2.840.114 [id number] [facility] 11:11:01 16:10:25 ne Visit Matt Whaley 350.1.13.10 ity [facility] 4.2.7.2.[place] [phone] [place] dical [address] 2020-01-23 2020-03-12 Telemedici [facility] 1.2.840.114 [id number] 11:11:01 16:10:25 ne Visit Matt Whaley 350.1.13.10 Counce 4.2.7.2.686 Professio [phone] [address] 2020-02-23 2020-02-26 Outpatient BRIAN, [facility] [id number] [address] 14:38:00 13:00:00 CYRUS 2020-02-22 2020-02-23 Inpatient U APOLINAR, [facility] 0117 MHFB 19:57:00 13:45:00 CAM 2020-01-30 2020-01-30 Telemedici [facility] 1.2.840.114 [id number] Univers 08:10:50 15:55:51 ne Visit Matt Whaley 350.1.13.10 ity of [place].2.[place] [phone] [place] dical nal [address] [place] [address] 2020-01-30 2020-01-[address] [facility] [id number] Univers 10:45:00 10:45:00 MATT ity [facility] 2020-01-27 2020-01-27 Telephone [facility] 1.2.840.114 [id number] Univers 00:00:00 00:00:00 Matt Whaley 350.1.13.10 i ty of [place] 4[place]2.7.2.[place] [phone] [place] dical nal [address] [place] [address] 2020-01-27 2020-01-27 Telephone [facility] 1.2.840.114 [id number] Univers 00:00:00 00:00:00 Matt Whaley 350.1.13.10 i ty of [place] 4.2.7.2.686 [place] [phone] [place] dical nal [address] [place] [address] 2020-01-23 2020-01-[address] [facility] [id number] Univers 13:15:00 13:15:00 MATT ity [facility] 2020-01-23 2020-01-23 Telephone [facility] 1.2.840.114 [id number] Univers 00:00:00 00:00:00 Matt Whaley 350.1.13.10 i ty of [place] 4.2.7.2.[place] [phone] [place] dical nal [address] [place] [address] 2020-01-22 2020-01-22 Telemedici [facility] 1.2.840.114 [id number] Univers 08:40:14 12:05:25 ne Visit Zelda [place] 350.1.13.10 ity of [place].2.686 [place] [phone] [address] 2020-01-22 2020-01-22 Outpatient R FREEMAN, [facility] [id number] [facility] 10:40:00 10:40:00 ZELDA ity of [facility] 2019-12-12 2019-12-12 Telephone Freeman, [facility] 1.2.840.114 [id number] Univers 00:00:00 00:00:00 Zelda [place] 350.1.13.10 ity of [place].2.[place] [phone] [address] 2019-12-06 2019-12-06 Refill Doctor [facility] 1.2.840.114 [id number] Univers 00:00:00 00:00:00 Unassigned, Jovana 350.1.13.10 ity of [place]ce 4.2.7.2.[place] [phone] [address] 2019-12-06 2019-12-06 [facility] 1.2.840.114 [id number] [facility] 00:00:00 00:00:00 Zelda [place] 350.1.13.10 ity of [place].2.[place] [phone] [address] 2019-10-14 2019-10-14 [facility] [address] [place] 12:28:00 12:28:00 0615 [facility] [...] PREG TEST DATE (test code = 3576) [facility] [id number] 15:22:00 Test Item Value Reference Range Interpretation Comments POCT PREG (test code = 1605) Negative On board controls acceptable with C Yes Line (test code = 3574) POCT PREG LOT # (test code = 3575) POCT PREG TEST DATE (test code = 3576) [facility] [id number] 15:22:00 Test Item Value Reference Range Interpretation Comments POCT PREG (test code = 1605) Negative On board controls acceptable with C Yes Line (test code = 3574) POCT PREG LOT # (test code = 3575) POCT PREG TEST DATE (test code = 3576) [facility] [id number] 22:27:00 Test Item Value Reference Range Interpretation Comments POCT PREG (test code = 1605) Negative On board controls acceptable with C Yes Line (test code = 3574) POCT PREG LOT # (test code = 3575) POCT PREG TEST DATE (test code = 3576) [facility] [id number] 22:27:00 Test Item Value Reference Range Interpretation Comments POCT PREG (test code = 1605) Negative On board controls acceptable with C Yes Line (test code = 3574) POCT PREG LOT # (test code = 3575) POCT PREG TEST DATE (test code = 3576) [id number] 17:37:52 Test Item Value Reference Range Interpretation Comments WBC (test code = See_Comment [Automated 8790-2) message] The sy stem which generated this result transmitted reference range : 4.30 - 11.10 10*3/?L. The reference range was not used to interpret this result as normal/abnormal . RBC (test code = See_Comment [Automated 409-8) message] The sy stem which generated this [...] RDW-SD (test code = 45.0 fL 39.0-49.9 99091-4) RDW-CV (test code = 13.5 % 12.0-15.5 788-0) PLT (test code = See_Comment [Automated 777-3) message] The sy stem which generated this result transmitted reference range : 166 - 358 10*3/ ?L. The reference r flaquito was not used to interpret this result as normal/abnormal . MPV (test code = 10.5 fL 9.5-12.9 15953-0) NRBC/100 WBC (test See_Comment [Automat ed code = [id number]) message] The system which generated this result transmitted reference range : 0.0 - 10.0 /100 WBCs. The refer ence range was not u sed to interpret th is result as normal/abnormal . NRBC x10^3 (test code See_Comment [Auto mated = [id number]) message] The s ystem which generated this result transmitted reference range : 10*3/?L. The reference range was not used to interpret this result as normal/abnormal . GRAN MAT (NEUT) % 50.6 % (test code = 770-8) IMM GRAN % (test code 0.50 % = 9709223587) LYMPH % (test code = 39.9 % 736-9) MONO % (test code = 7.3 % 5905-5) EOS % (test code = 1.4 % 713-8) BASO % (test code = 0.3 % 706-2) GRAN MAT x10^3(ANC) 4.40 10*3/uL 1.88-7.09 (test code = 3735428465) IMM GRAN x10^3 (test 0.04 10*3/uL 0.00-0.06 code = 3608120366) LYMPH x10^3 (test code 3.46 10*3/uL 1.32-3.29 H = 731-0) MONO x10^3 (test code 0.63 10*3/uL 0.33-0.92 = 742-7) EOS x10^3 (test code = 0.12 10*3/uL 0.03-0.39 711-2) BASO x10^3 (test code 0.03 10*3/uL 0.01-0.07 = 704-7) Lab Interpretation Abnormal (test code = 22300-1) [facility] - [facility] 2021-12-23 06:00:39 Test Item Value Reference Range Interpretation Comments Result (test code = No growth in 5 days 6463-4) [id number]:39 Test Item Value Reference Range Interpretation Comments CULTURE (BEAKER) (test No growth in 5 days code = 1095) BLOOD [id number] 03:00:36 Test Item Value Reference Range Interpretation Comments CULTURE (BEAKER) (test No growth in 5 days code = 1095) Urinalysis w/Microscopic + Reflex to [id number] 10:45:20 Test Item Value Reference Range Interpretation Comments Color, UA (test Light Yellow code = 5778-6) Clarity, UA (test Clear code = 5767-9) Specific [place], 1.014 1.001-1.035 UA (test code = 5811-5) pH, UA (test code 7.5 5.0-8.0 = 5803-2) Protein, UA (test Negative Negative code = 89059-2) Glucose, UA (test Negative Negative code = 365) Ketones, UA (test Negative Negative code = 2514-8) Bilirubin, UA Negative Negative (test code = 54643-4) Blood, UA (test Negative Negative code = 06046-1) Nitrite, UA (test Negative Negative code = 5802-4) Leukocytes, UA Negative Negative (test code = 5799-2) Urobilinogen, UA 0.2 mg/dL 0.2-1.0 (test code = 10661-2) RBC, UA (test 1 See_Comment [Automated me ssage] code = 84210-6) The system [facility] generated this result transmit aamir reference range : /HPF. The refer ence range was not u sed to interpret th is result as normal/abnormal . WBC, UA (test 1 See_Comment [Automated me ssage] code = 5821-4) The system [facility] generated this result transmit aamir reference range : /HPF. The refer ence range was not u sed to interpret th is result as normal/abnormal . Bacteria, UA Rare (test code = 24628-2) Mucus (test code Rare = 8247-9) Squam Epithel, UA 3 See_Comment [Automate d message] (test code = The system [facility] h 570[address]-6) generated this result transmit aamir reference range : /HPF. The refer ence range was not u sed to interpret th is result as normal/abnormal . Crystals, Urine None Seen (test code = 91371-4) Specimen Source (test code = 2795) SERGIO (test code = Financial Compliance Examiner ID - SERGIO) [auto]Financial Compliance Examiner ID - tech [facility]LEX URINE [id number] 10:45:20 Test Item Value Reference Range Interpretation [...] = 1521) SOURCE(BEAKER) (test code = 2795) Financial Compliance Examiner ID - [auto]Financial Compliance Examiner ID - [employer] [facility] metabolic [id number] 04:19:43 Test Item Value Reference Range Interpretation Comments Sodium (test code = 139 meq/L 514-662 9161-2) Potassium (test code = 3.6 meq/L 3.5-5.1 2823-3) Chloride (test code = 108 meq/L 98-107 H 2075-0) CO2 (test code = 25 meq/L 22-29 2028-9) BUN (test code = 13 mg/dL 7-21 3094-0) Creatinine (test code 0.84 mg/dL 0.57-1.25 = 2160-0) Glucose (test code = 112 mg/dL 70-105 H 2345-7) Calcium (test code = 9.0 mg/dL 8.4-10.2 12434-7) EGFR (test code = 79 mL/min/1.73 [place] [address]-1) NOT ACCURATE CREATININE CLEARANCE IN PREDICTING GLOMERULAR FILTRATION RATE . ESTIMATED GFR I S NOT APPLICABLE FOR DIALYSIS PATIENTS. SERGIO (test code = SERGIO) Financial Compliance Examiner ID - SHELBY M Lab Interpretation Abnormal (test code = 30877-0) [facility] [id number] 04:19:43 Test Item Value Reference Range Interpretation [...] S NOT APPLICABLE FOR DIALYSIS PATIEN TS. Financial Compliance Examiner ID - SHELBY MCBC with platelet count + automated [id number] 04:14:48 Test Item Value Reference Range Interpretation Comments WBC (test code = 6690-2) 8.8 See_Comment [A utomated message] The system [employer] generated this result transmitted ref erence range: 3.5 - 10 .5 K/L. The refe rence range was not u sed to interpret this result as normal/abnor mal. RBC (test code = 789-8) 4.06 See_Comment [Au tomated message] The system [employer] generated this result transmitted ref erence range: 3.93 - 5 .22 M/L. The refe rence range was not u sed to interpret this result as normal/abnor mal. MCHC (test code = 786-4) 31.2 See_Comment L [A utomated message] The system [employer] generated this result transmitted ref erence range: [...] See_Comment [Aut omated message] 777-3) The system [employer] generated this result transmitted ref erence range: 150 - 45 0 K/CU MM. The referen ce range was not u sed to interpret this result as normal/abnor mal. MPV (test code = 10.5 fL 9.4-12.3 46783-0) nRBC (test code = 413) 0 See_Comment [Aut omated message] The system [employer] generated this result transmitted ref erence range: [...] See_Comment [Aut omated message] 670) The system [employer] generated this result transmitted ref erence range: 1.56 - 6 .13 K/L. The refe rence range was not u sed to interpret this result as normal/abnor mal. # Lymphs (test code = 4.14 See_Comment H [Auto mated message] 414) The system [employer] generated this result transmitted ref erence range: 1.18 - 3 .74 K/L. The refe rence range was not u sed to interpret this result as normal/abnor mal. # Monos (test code = 0.74 See_Comment H [Autom ated message] 415) The system [employer] generated this result transmitted ref erence range: 0.24 - 0 .36 K/L. The refe rence range was not u sed to interpret this result as normal/abnor mal. # Eos (test code = 416) 0.33 See_Comment [Au tomated message] The system [employer] generated this result transmitted ref erence range: 0.04 - 0 .36 K/L. The refe rence range was not u sed to interpret this result as normal/abnor mal. # Baso (test code = 417) 0.04 See_Comment [A utomated message] The system [employer] generated this result transmitted ref erence range: 0.01 - 0 .08 K/L. The refe rence range was not u sed to interpret this result as normal/abnor mal. Immature 0 % 0-1 Granulocytes-Relative (test code = 2801) Lab Interpretation (test Abnormal code = 38385-3) [facility] W/PLT COUNT & AUTO [id number] 04:14:48 Test Item Value Reference Range Interpretation [...] % 0-1 PERCENT (BEAKER) (test code = 2041)
[2023-08-22] MEDS ORDERED: ACETAMINOPHEN 500 MG TAB ONE (10:43)
--- NOTE | 2023-08-22 11:05 | RAD REPORT ---
EXAM DESCRIPTION: RAD - Chest Single View - 08/22/2023 10:29 am CLINICAL HISTORY: COUGH COMPARISON: Chest Single View dated 05/10/2023; Chest Single View dated 09/26/2022; Chest Single View dated 01/25/2022; Chest Single View dated 06/29/2021 FINDINGS: Lines: None. Lungs: No evidence of edema or pneumonia. Pleural: No significant pleural effusions or pneumothorax. Cardiac: The heart size is within normal limits. Mediastinum: Within normal limits. Bones: No acute fractures. Other: None IMPRESSION: No acute cardiopulmonary disease.
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
[2023-08-22] MEDS ORDERED: ONDANSETRON 4 MG (ODT) TAB ONE (11:44)
[2023-08-23 15:50] VITALS: BP 114/81; TEMP 98.3; O2SAT 97
== END 2023-08-22 12:01 | disposition home or self-care (01) ==
LOC: ER 09:51
DX: J10.1 Influenza due to other identified influenza virus with other respiratory manifestations (principal); Z20.822 Contact with and (suspected) exposure to COVID-19; Z88.5 Allergy status to narcotic agent; Z88.8 Allergy status to other drugs, medicaments and biological substances
CPT/HCPCS: 87070; 87081; 87635; 87804 ×2; 71045; Q0162

== ENCOUNTER 2023-09-05 17:47 | Inpatient (IN) | payer OTHER ==
--- OUTSIDE RECORDS SUMMARY | 2023-09-05 18:01 | XMS REPORT | Continuity of Care Document ---
:1990 Author Organization [facility] t Address [address] [place] [address] Care Team Providers Name Role Phone Mitali Raza Primary Care Physician ISHAN BENNETT Attending Clinician Unavailable JOSE ANGEL PERALTA Attending Clinician Unavailable JOSE ANGEL PERALTA Attending Clinician Unavailable Ashleigh Mcwilliams MD Attending Clinician NILA VILLAGRAN Attending Clinician Unavailable Dulce Weeks MD Attending Clinician Zelda Knight RN Attending Clinician Unavailable DULCE WEEKS Attending Clinician Unavailable Doctor Unassigned, [place] Attending Clinician Unavailable Khloe Mayen MA Attending Clinician Unavailable Prisca Vilchis Attending Clinician Unavailable Cyrus Shultz MD Attending Clinician CYRUS SHULTZ Attending Clinician Unavailable Pob, [facility] Main Attending Clinician Unavailable JANIS Attending Clinician Unavailable MARYLU TIWARI Attending Clinician Unavailable Jade STEINER, Brett Attending Clinician Dannielle STEINER, Edgardo Hamilton Attending Clinician [phone] Trevor STEINER, Marylu Rodgers Attending Clinician Amanda PHYSICIST [employer], Nila Attending Clinician ZELDA FREEMAN Attending Clinician Unavailable AIDAN REYNOSO Attending Clinician Unavailable Nurse, [facility] Pob Immunization Attending Clinician Unavailable Aidan Reynoso DO Attending Clinician Bakari STEINER, Gisell Attending Clinician Unknown, Attending Attending Clinician Unavailable UNKNOWN, ATTENDING Attending Clinician Unavailable Vanessa Marshall Attending Clinician Zelda Freeman MD Attending Clinician [phone] Lab, [facility] Fam Pob I Attending Clinician Unavailable Cedric [...] Number Effective Date Expiration Date Janes henriquez [facility] [id number] 2019 [facility] MEDICAID 00:00:00 AYAD VILLASENOR FROM [id number] 2022 [facility] 00:00:00 MEDICAID COMM [id number] 2021 [facility] 00:00:00 [facility] [id number] [facility] (MEDICAID REPLACEMENT - HMO) [place] [id number] [place] Problems Condition Condition Condition Status Onset Resolution Last Treating Co mments Source Name Details Category Date Date Treatment Clinician Date Acute Acute Disease Active Univers vaginitis vaginitis 07-24 ity of 00:00: [place] [facility] Ingrown Ingrown Disease Active Univers hair hair 07-24 ity of 00:: [place] [facility] Oral Oral Disease Active Univers contracept contracept 07-24 it y of ghislaine pill ghislaine pill 00:00: [place] surveillan surveillan 00 Me dical ce ce Branch Screening Screening Disease Active Uni vers for for 07-24 ity of malignant malignant 00:00: [place] neoplasm neoplasm 00 Medica l of the of the Branch cervix cervix History of History of Disease Active U nivers epilepsy epilepsy 07-24 ity of 00:00: [place] [facility] Morbid Morbid Disease Active Univers obesity obesity 12-29 ity of with body with body 00:00: [place] mass index mass index 00 Me dical of of Branch 40.0-49.9 40.0-49.9 Screening Screening Disease Active Uni vers examinatio examinatio 11-19 it y of n for n for 00:00: [place] venereal venereal 00 Medica l disease disease Branch Lipid Lipid Disease Active Univers disorder disorder 11-18 ity of 00:00: [place] [facility] Thickened Thickened Disease Active Uni vers endometriu endometriu 10-31 it y of m m 00:00: [place] [facility] Menorrhagi Menorrhagi Disease Active U nivers a with a with 03 ity of irregular irregular 00:00: [place] cycle cycle Medical Branch Pain Pain Disease Active 2021-10 Univers pelvic pelvic 2-21 ity of 00:00: [place] [facility] History of History of Disease Active 2021-10 U nivers ovarian ovarian 2-21 ity of cyst cyst 00:00: [place] [facility] Patient Patient Disease Active 2021-10 Univers desires desires 2-21 ity of 00:00: [place] [facility] Vaping Vaping Disease Active 2021-10 Univers 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 ity of dependence dependence 00:00: [place] , , 00 Medical non-tobacc non-tobacc Br anch o product o product BMI BMI Disease Active 2021-10 Univers 40.0-44.9, 40.0-44.9, 2-21 it y of adult adult 00:00: [place] [facility] 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 2-21 it y of y of shape y of shape 00:00: [place] of left of left 00 Medical external external Branch ear ear Status Status Disease Active [facility]pticu 2[facility]20 [facility] 00:00: Medical 00 Center UTI due to UTI due to Disease Active [facility] trichomona trichomona 2-20 [facility] s s 00:00: Medical vaginalis vaginalis 00 Cent er Status Status Disease Active Univers epilepticu epilepticu 2-19 it y of s s 00:00: [place] [facility] Epilepsy Epilepsy Disease Recurre [facility]: Medical 00 [place] Cough Cough Disease Active Univers 2-14 ity of 00:00: [place] [facility] Congestion Congestion Disease Active U nivers of nasal of nasal 2-14 ity of sinus sinus 00:00: [place] [facility] Nausea Nausea Disease Active Univers 2-14 ity of 00:00: [place] [facility] Acute Acute Disease Active Univers otitis otitis 2-14 ity of externa of externa of 00:00: [place] right ear, right ear, 00 Me dical unspecifie unspecifie Br anch d type d type Upper Upper Disease Active Univers respirator respirator 2-14 it y of y tract y tract 00:00: [place] infection, infection, 00 Me dical unspecifie unspecifie Br anch d type d type Gastroesop Gastroesop Disease Active U nivers hageal hageal 2-14 ity of reflux reflux 00:00: [place] disease disease 00 Medical without without Branch esophagiti esophagiti s s BMI BMI Disease Active Univers 38.0-38.9, 38.0-38.9, 9-27 it y of adult adult 00:00: [place] [facility] Irregular Irregular Disease Active Uni vers menstrual menstrual 3-12 ity of cycle cycle 00:00: [place] [facility] Asthma, Asthma, Disease Active Univers [...] Essential Disease Active Uni vers hypertensi hypertensi 24 it y of on on 00:00: [place] 00 Medical Branch Other Other Disease Active [...] upper 04-21 ity of abdomen abdomen 00:00: [place] 00 [facility] Allergies, Adverse Reactions, Alerts Allergy Allergy Status Severity Reaction(s) Onset Inactive Treating Comm ents Source Name Type Date Date Clinician Fospheny Propensi Active Itching [facility] adverse 00:00: Medical reaction 00 Center s Carbamaz Propensi Active Shortness Of [facility] epine ty to Breath, 2-19 [facility] adverse Itching, 00:00: Medical reaction Rash 00 [place] s CARBAMAZ DRUG Active High ITCHING Univers EPINE INGREDI 2-19 ity of 00:00: [place] [facility] FOSPHENY DRUG Active ITCHING Univers TOIN INGREDI 2-19 ity of 00:00: [place] 00 [facility] CARBAMAZ Allergy Active High Sob CHI [...] INGREDI 04-20 ity of 00:00: [place] 00 [facility] Ketorola Propensi Active Shortness of Can shay e Univers c ty to Breath 04-20 aspirin ity of adverse 00:00: and [place] reaction 00 ibuprofen Medic al s without Branch problem. KETOROLA Allergy Active High Hives [facility] 04[facility]20 [facility] 00:00: Medical 00 Center Social History Social Habit Start Date Stop Date Quantity Comments Source History of tobacco 2012-04-20 Passive smoker Un iversity of use 00:00:00 [facility] Sexual orientation Univer sity of [facility] History SDOH [facility] Alcohol Std Drinks Medica l Center History SDOH [facility] Alcohol Binge Medical Jatinder ter History SDOH [facility] Alcohol Comment Medical C enter Exposure to 2022-12-22 2023-01-01 Not sure University of SARS-CoV-2 (event) 00:00:00 11:43:00 [facility] Tobacco use and 2022-10-18 2022-10-18 Smokeless Universit y of exposure 00:00:00 00:00:00 tobacco non-user [facility] dicla Branch Tobacco Comment 2022-10-18 2022-10-18 3-4 ciggs a day Univ ersity of 00:00:00 00:00:00 [facility] Alcohol intake 2021-12-18 2021-12-[address] [facility] 00:00:00 00:00:00 non-drinker Medical Cente r (finding) History SDOH 2021-12-18 2021-12-[address] [facility] Alcohol Frequency 00:00:00 00:00:00 Medical Center History of Social 2021-07-29 2021-07-29 Univers ity of function 00:00:00 00:00:00 [facility] Sex Assigned At [address] [facility] 00:00:00 00:00:00 Medical [place] Smoking Status Start Date Stop Date Source Ex-smoker 2022-10-18 00:00:00 2022-10-18 00:00:00 Universi ty of [facility] Never smoked tobacco [facility] Light tobacco smoker 2019-01-07 00:00:00 Univers ity of [facility] Medications Ordered Filled Start Stop Current Ordering Indication Dosage Frequency Signature Comments Components Source Medication Medication Date Date Medication? Clinician (SIG) Name Name metroNIDAZO 2022- Yes [id number] 500mg Take 1 Univers LE (FLAGYL) 07-27 10-05 tablet by it y of 500 [...] sumatriptan Yes Take by Uni vers succinate 9- mouth. ity of (IMITREX 14:43: [place] ORAL) Medical Branch sumatriptan Yes Take by Uni vers succinate 9-26 mouth. ity of (IMITREX 14:43: [place] ORAL) Medical Branch levonorgest Yes [id number] 1{tbl} Take 1 Univers rel-ethinyl - tablet by ity of estradiol 00:00: [place] 0.[place] mg-30 00 the Medical [facility] [place] morning. Branch per tablet fluconazole Yes [id number] 200mg Take 1 Univers 200 mg 9-26 tablet by ity of tablet 00:00: mouth [place] 00 every 3 Medical (three) Branch days. triamcinolo Yes [id number] Apply to Univers ne - area(s) 2 ity of acetonide 00:00: (two) [place] 0.1 % cream 00 times Medical daily. Branch levonorgest Yes [id number] 1{tbl} Take 1 Univers rel-ethinyl 9-26 tablet by ity of estradiol 00:00: [place] 0.15 mg-30 00 the Medical [facility] [place] morning. Branch per tablet fluconazole Yes [id number] 200mg Take 1 Univers 200 mg 9-26 tablet by ity of tablet 00:00: mouth [place] 00 every 3 Medical (three) Branch days. triamcinolo 2023-0 Yes [id number] Apply to [facility] area(s) 2 ity of acetonide 00:00: (two) [place] 0.1 % cream 00 times Medical daily. Branch levonorgest 2022-0 Yes [id number] 1{tbl} Take 1 Univers rel-ethinyl 9-26 tablet by ity of estradiol 00:00: [place] 0.[place] mg-30 00 the Medical [facility] [place] morning. Branch per tablet fluconazole 3-0 Yes [id number] 200mg Take 1 Univers 200 mg 9-26 tablet by ity of tablet 00:00: mouth [place] 00 every 3 Medical (three) Branch days. triamcinolo 3-0 Yes [id number] Apply to [facility] 07-24 area(s) 2 ity of acetonide 00:00: (two) [place] 0.1 % cream 00 times Medical daily. Branch levonorgest 2022-0 Yes [id number] 1{tbl} Take 1 Univers rel-ethinyl 9-26 tablet by ity of estradiol 00:00: [place] 0.15 mg-30 00 the Medical [facility] [place] morning. Branch per tablet fluconazole 3-0 Yes [id number] 200mg Take 1 Univers 200 mg 9-26 tablet by ity of tablet 00:00: mouth [place] 00 every 3 Medical (three) Branch days. triamcinolo 3-0 Yes [id number] Apply to [facility] area(s) 2 ity of acetonide 00:00: (two) [place] 0.1 % cream 00 times Medical daily. Branch omeprazole 2023-0 Yes Univers 40 mg 9-24 ity of capsule 00:00: [place] 00 Medical Branch omeprazole 2023-0 Yes Univers 40 mg 9-24 ity of capsule 00:00: [place] 00 Medical Branch omeprazole 2023-0 Yes Univers 40 mg 9-24 ity of capsule 00:00: [place] 00 Medical Branch omeprazole 2023-0 Yes Univers 40 mg 9-24 ity of capsule 00:00: [place] 00 Medical Branch valsartan-h 3-0 Yes 1{tbl} Take 1 Un brad ydrochlorot 8-29 tablet by ity of hiazide 00:00: mouth in [place] 160-25 mg 00 the Medical per tablet morning. [facility] valsartan-h 2023-0 Yes 1{tbl} Take 1 Un brad ydrochlorot 8-29 tablet by ity of hiazide 00:00: mouth in [place] 160-25 mg 00 the Medical per tablet morning. [facility] valsartan-h 2023-0 Yes 1{tbl} Take 1 Un brad ydrochlorot 8-29 tablet by ity of hiazide 00:00: mouth in [place] 160-25 mg 00 the Medical per tablet morning. [facility] valsartan-h 2023-0 Yes 1{tbl} Take 1 Un brad ydrochlorot 8-29 tablet by ity of hiazide 00:00: mouth in [place] 160-25 mg 00 the Medical per tablet morning. [facility] furosemide 2023-0 Yes 40mg Take 1 Unive rs 40 mg 8-24 tablet by ity of tablet 00:00: mouth in [place] 00 the Medical morning. Branch furosemide 2023-0 Yes 40mg Take 1 Unive rs 40 mg 8-24 tablet by ity of tablet 00:00: mouth in [place] 00 the Medical morning. Branch furosemide 2023-0 Yes 40mg Take 1 Unive rs 40 mg 8-24 tablet by ity of tablet 00:00: mouth in [place] 00 the Medical morning. Branch furosemide 2023-0 Yes 40mg Take 1 Unive rs 40 mg 8-24 tablet by ity of tablet 00:00: mouth in [place] 00 the Medical morning. Branch OZEMPIC 2023-0 Yes INJECT 0.5 Univ ers 0.25 mg or 7-03 MG ity of 0.5 mg (2 00:00: SUBCUTANEO [place] mg/3 mL) 00 USLY EVERY Medic al PnIj WEEK FOR Branch 28 DAYS. OZEMPIC 2023-0 Yes INJECT 0.5 Univ ers 0.25 mg or 7-03 MG ity of 0.5 mg (2 00:00: SUBCUTANEO [place] mg/3 mL) 00 USLY EVERY Medic al PnIj WEEK FOR Branch 28 DAYS. OZEMPIC 2023-0 Yes INJECT 0.5 Univ ers 0.25 mg or 7-03 MG ity of 0.5 mg (2 00:00: SUBCUTANEO [place] mg/3 mL) 00 USLY EVERY Medic al PnIj WEEK FOR Branch 28 DAYS. OZEMPIC 0 Yes INJECT 0.5 Univ ers 0.25 mg or 7-03 MG ity of 0.5 mg (2 00:00: SUBCUTANEO [place] mg/3 mL) 00 USLY EVERY Medic al PnIj WEEK FOR Branch 28 DAYS. ibuprofen 0 202- No [id number] 600mg U nivrubina (IBU) 3-03 03-04 ity of tablet 600 16:15: 04:14 [place] mg 00 :00 Medical Branch Norethindro 2022-0 Yes [id number] 1{tbl} Take 1 Univers ne 1-18 tablet by ity of Acet-Ethiny 00:00: mouth in [place] l Est 00 the Medical (. Branch ,) 1.5-30 mg-mcg per tablet ibuprofen 0 Yes [id number] 800mg Take 1 Univers 800 mg 1-18 tablet by ity of tablet 00:00: mouth [place] 00 every 6 Medical (six) Branch hours as needed for Pain (scale 4-6). Norethindro 0 Yes [id number] 1{tbl} Take 1 Univers ne 1-18 tablet by ity of Acet-Ethiny 00:00: mouth in [place] l Est 00 the Medical (. Branch ,) 1.5-30 mg-mcg per tablet ibuprofen 2022-0 Yes [id number] 800mg Take 1 Univers 800 mg 1-18 tablet by ity of tablet 00:00: mouth [place] 00 every 6 Medical (six) Branch hours as needed for Pain (scale 4-6). Norethindro 2022-0 Yes [id number] 1{tbl} Take 1 Univers ne 1-18 tablet by ity of Acet-Ethiny 00:00: mouth in [place] l Est 00 the Medical (. Branch ,) 1.5-30 mg-mcg per tablet ibuprofen 2022-0 Yes [id number] 800mg Take 1 Univers 800 mg 1-18 tablet by ity of tablet 00:00: mouth [place] 00 every 6 Medical (six) Branch hours as needed for Pain (scale 4-6). Norethindro 2023-0 Yes [id number] 1{tbl} Take 1 Univers ne 1-18 tablet by ity of Acet-Ethiny 00:00: mouth in [place] l Est 00 the Medical (. Branch ,) 1.5-30 mg-mcg per tablet ibuprofen 2022-0 Yes [id number] 800mg Take 1 Univers 800 mg 1-18 tablet by ity of tablet 00:00: mouth [place] 00 every 6 Medical (six) Branch hours as needed for Pain (scale 4-6). Norethindro 2023-0 Yes [id number] 1{tbl} Take 1 Univers ne 1-18 tablet by ity of Acet-Ethiny 00:00: mouth in [place] l Est 00 the Medical (. Branch ,) 1.5-30 mg-mcg per tablet ibuprofen 2022-0 Yes [id number] 800mg Take 1 Univers 800 mg 1-18 tablet by ity of tablet 00:00: mouth [place] 00 every 6 Medical (six) Branch hours as needed for Pain (scale 4-6). Norethindro 3-0 Yes [id number] 1{tbl} Take 1 Univers ne 1-18 tablet by ity of Acet-Ethiny 00:00: mouth in [place] l Est 00 the Medical (. Branch ,) 1.5-30 mg-mcg per tablet ibuprofen 2022-0 Yes [id number] 800mg Take 1 Univers 800 mg 1-18 tablet by ity of tablet 00:00: mouth [place] 00 every 6 Medical (six) Branch hours as needed for Pain (scale 4-6). Norethindro 2023-0 Yes [id number] 1{tbl} Take 1 Univers ne 1-18 tablet by ity of Acet-Ethiny 00:00: mouth in [place] l Est 00 the Medical (IN . Branch ,) 1.5-30 mg-mcg per tablet ibuprofen 2023-0 Yes [id number] 800mg Take 1 Univers 800 mg 1-18 tablet by ity of tablet 00:00: mouth [place] 00 every 6 Medical (six) Branch hours as needed for Pain (scale 4-6). Norethindro 2022-0 Yes [id number] 1{tbl} Take 1 Univers ne 1-18 tablet by ity of Acet-Ethiny 00:00: mouth in [place] l Est 00 the Medical (LOESTRIN morning. Branch ,) 1.5-30 mg-mcg per tablet ibuprofen 2022-0 Yes [id number] 800mg Take 1 Univers 800 mg 1-18 tablet by ity of tablet 00:00: mouth [place] 00 every 6 Medical (six) Branch hours as needed for Pain (scale 4-6). Norethindro 2022-0 Yes [id number] 1{tbl} Take 1 Univers ne 1-18 tablet by ity of Acet-Ethiny 00:00: mouth in [place] l Est 00 the Medical (ESTRIN morning. Branch ,) 1.5-30 mg-mcg per tablet ibuprofen 2022-0 Yes [id number] 800mg Take 1 Univers 800 mg 1-18 tablet by ity of tablet 00:00: mouth [place] 00 every 6 Medical (six) Branch hours as needed for Pain (scale 4-6). Norethindro 2022-0 Yes [id number] 1{tbl} Take 1 Univers ne 1-18 tablet by ity of Acet-Ethiny 00:00: mouth in [place] l Est 00 the Medical (ESTRIN morning. Branch ,) 1.5-30 mg-mcg per tablet ibuprofen 2022-0 Yes [id number] 800mg Take 1 Univers 800 mg 1-18 tablet by ity of tablet 00:00: mouth [place] 00 every 6 Medical (six) Branch hours as needed for Pain (scale 4-6). Norethindro 2022-0 Yes [id number] 1{tbl} Take 1 Univers ne 1-18 tablet by ity of Acet-Ethiny 00:00: mouth in [place] l Est 00 the Medical (LOESTRIN morning. Branch ,) 1.5-30 mg-mcg per tablet ibuprofen 2022-0 Yes [id number] 800mg Take 1 Univers 800 mg 1-18 tablet by ity of tablet 00:00: mouth [place] 00 every 6 Medical (six) Branch hours as needed for Pain (scale 4-6). Norethindro 2023-0 Yes [id number] 1{tbl} Take 1 Univers ne 1-18 tablet by ity of Acet-Ethiny 00:00: mouth in [place] l Est 00 the Medical (. Branch .03/27, ,) 1.5-30 mg-mcg per tablet ibuprofen 2022-0 Yes [id number] 800mg Take 1 Univers 800 mg 1-18 tablet by ity of tablet 00:00: mouth [place] 00 every 6 Medical (six) Branch hours as needed for Pain (scale 4-6). Norethindro 3-0 Yes [id number] 1{tbl} Take 1 Univers ne 1-18 tablet by ity of Acet-Ethiny 00:00: mouth in [place] l Est 00 the Medical (. Branch .03/27, ,) 1.5-30 mg-mcg per tablet ibuprofen 2022-0 Yes [id number] 800mg Take 1 Univers 800 mg 1-18 tablet by ity of tablet 00:00: mouth [place] 00 every 6 Medical (six) Branch hours as needed for Pain (scale 4-6). Norethindro 3-0 Yes [id number] 1{tbl} Take 1 Univers ne 1-18 tablet by ity of Acet-Ethiny 00:00: mouth in [place] l Est 00 the Medical ( morning. Branch .,) 1.5-30 mg-mcg per tablet ibuprofen 2022-0 Yes [id number] 800mg Take 1 Univers 800 mg 1-18 tablet by ity of tablet 00:00: mouth [place] 00 every 6 Medical (six) Branch hours as needed for Pain (scale 4-6). ibuprofen 2023-0 Yes [id number] 800mg Take 1 Univers 800 mg 1-18 tablet by ity of tablet 00:00: mouth [place] 00 every 6 Medical (six) Branch hours as needed for Pain (scale 4-6). ibuprofen 2023-0 Yes [id number] 800mg Take 1 Univers 800 mg 1-18 tablet by ity of tablet 00:00: mouth [place] 00 every 6 Medical (six) Branch hours as needed for Pain (scale 4-6). ibuprofen 2023-0 Yes [id number] 800mg Take 1 Univers 800 mg 1-18 tablet by ity of tablet 00:00: mouth [place] 00 every 6 Medical (six) Branch hours as needed for Pain (scale 4-6). ibuprofen 2023-0 Yes [id number] 800mg Take 1 Univers 800 mg 1-18 tablet by ity of tablet 00:00: mouth [place] 00 every 6 Medical (six) Branch hours as needed for Pain (scale 4-6). Norethindro 2023-0 2023- No [id number] 1{tbl} Take 1 Univers ne 11-15 tablet by ity of Acet-Ethiny 00:00: 00:00 mouth in [place] l Est 00 :00 the Medical (LOESTRIN . Branch ,) 1.5-30 mg-mcg per tablet Norethindro 2023-0 2023- No [id number] 1{tbl} Take 1 Univers ne 11-15 tablet by ity of Acet-Ethiny 00:00: 00:00 mouth [place] l Est 00 :00 the Medical (LOESTRIN morning. Branch ,) 1.5-30 mg-mcg per tablet norethindro 2023-0 Yes [id number] .35mg Take 1 Univers ne (ORTHO 1-03 tablet by ity o f MICRONOR) 00:00: [place] 0.35 mg 00 the Medical tablet morning. Branch norethindro 2023-0 Yes [id number] .35mg Take 1 Univers ne (ORTHO 1-03 tablet by ity o f MICRONOR) 00:00: [place] 0.35 mg 00 the Medical tablet morning. Branch norethindro 2023-0 Yes [id number] .35mg Take 1 Univers ne (ORTHO 1-03 tablet by ity o f MICRONOR) 00:00: mouth [place] 0.35 mg 00 the Medical tablet morning. Branch norethindro 2023-0 2023- No [id number] .35mg Take 1 Univers ne (ORTHO 1-03 -22 tablet by ity of MICRONOR) 00:00: 00:00 mouth in [place] 0.35 mg 00 :00 the Medical tablet morning. Branch norethindro 2022-0 2022- No [id number] .35mg Take 1 Univers ne (ORTHO 1-03 -22 tablet by ity of MICRONOR) 00:00: 00:00 mouth in [place] 0.35 mg 00 :00 the Medical tablet morning. Jonnathan porterro 2021-10 Yes [id number] .35mg Take 1 Univers ne (ORTHO 2-21 tablet by ity o f MICRONOR) 00:00: mouth [place] 0.35 mg 00 the Medical tablet morning. Jonnathan porterro 2021-10 Yes [id number] .35mg Take 1 Univers ne (ORTHO 2-21 tablet by ity o f MICRONOR) 00:00: mouth [place] 0.35 mg 00 the Medical tablet morning. Jonnathan porterro 2021-10 Yes [id number] .35mg Take 1 Univers ne (ORTHO 2-21 tablet by ity o f MICRONOR) 00:00: mouth [place] 0.35 mg 00 the Medical tablet morning. Jonnathan porterro 2021-10 Yes [id number] .35mg Take 1 Univers ne (ORTHO 2-21 tablet by ity o f MICRONOR) 00:00: mouth [place] 0.35 mg 00 the Medical tablet morning. Jonnathan porterro 2021-10 Yes [id number] .35mg Take 1 Univers ne (ORTHO 2-21 tablet by ity o f MICRONOR) 00:00: mouth [place] 0.35 mg 00 the Medical tablet morning. Jonnathan porterro 2021-10 Yes [id number] .35mg Take 1 Univers ne (ORTHO 2-21 tablet by ity o f MICRONOR) 00:00: mouth [place] 0.35 mg 00 the Medical tablet morning. Jonnathan rileyndro 2021-10 Yes [id number] .35mg Take 1 Univers ne (ORTHO 2-21 tablet by ity o f MICRONOR) 00:00: [place] 0.35 mg 00 the Medical tablet morning. Jonnathan rileyndro 2021-10 Yes [id number] .35mg Take 1 Univers ne (ORTHO 2-21 tablet by ity o f MICRONOR) 00:00: [place] 0.35 mg 00 the Medical tablet morning. Jonnathan porterro 2021-10 Yes [id number] .35mg Take 1 Univers ne (ORTHO 2-21 tablet by ity o f MICRONOR) 00:00: [place] 0.35 mg 00 the Medical tablet morning. Jonnathan rileyndro 2021-10 Yes [id number] .35mg Take 1 Univers ne (ORTHO 2-21 tablet by ity o f MICRONOR) 00:00: [place] 0.35 mg 00 the Medical tablet morning. Jonnathan rileyndro 2021-10- No [id number] .35mg Take 1 Univers ne (ORTHO 2-21 -22 tablet by ity of MICRONOR) 00:00: 00:00 mouth in [place] 0.35 mg 00 :00 the Medical tablet morning. Jonnathan porterro 2021-10- No [id number] .35mg Take 1 Univers ne (ORTHO 2-21 -22 tablet by ity of Zang) 00:00: 00:00 mouth in [place] 0.35 [...] Daily Amount: 3 tablets methylPREDN 2021-0 Yes [id number] Take by Univers ISolone 2-15 mouth ity of (MEDROL, 00:00: SEE-INSTRU [place] BAMBI,) 4 mg 00 CTIONS. Medica l tablets follow Branch package directions methylPREDN 2-0 Yes [id number] Take by Univers ISolone 2-15 mouth ity of (MEDROL, 00:00: SEE-INSTRU [place] BAMBI,) 4 mg 00 CTIONS. Medica l tablets follow Branch package directions methylPREDN 2022-0 Yes [id number] Take by Univers ISolone 2-15 mouth ity of (MEDROL, 00:00: SEE-INSTRU [place]AMBI,) 4 mg 00 CTIONS. Medica l tablets follow Branch package directions methylPREDN 2-0 Yes [id number] Take by Univers ISolone 2-15 mouth ity of (MEDROL, 00:00: SEE-INSTRU [place]AMBI,) 4 mg 00 CTIONS. Medica l tablets follow Branch package directions methylPREDN 2022-0 Yes [id number] Take by Univers ISolone 2-15 mouth ity of (MEDROL, 00:00: SEE-INSTRU [place]AMBI,) 4 mg 00 CTIONS. Medica l tablets follow Branch package directions methylPREDN 2022-0 Yes [id number] Take by Univers ISolone 2-15 mouth ity of (MEDROL, 00:00: SEE-INSTRU [place] BAMBI,) 4 mg 00 CTIONS. Medica l tablets follow Branch package directions methylPREDN 2022-0 Yes [id number] Take by [facility] ISolone 2-15 mouth ity of (MEDROL, 00:00: SEE-INSTRU [place] BAMBI,) 4 mg 00 CTIONS. Medica l tablets follow Branch package directions methylPREDN 2022-0 Yes [id number] Take by [facility] ISolone 2-15 mouth ity of (MEDROL, 00:00: SEE-INSTRU [place] BAMBI,) 4 mg 00 CTIONS. Medica l tablets follow Branch package directions methylPREDN 2022-0 Yes [id number] Take by [facility] ISolone 2-15 mouth ity of (MEDROL, 00:00: SEE-INSTRU [place] BAMBI,) 4 mg 00 CTIONS. Medica l tablets follow Branch package directions methylPREDN 2022-0 Yes [id number] Take by [facility] ISolone 2-15 mouth ity of (MEDROL, 00:00: SEE-INSTRU [place] BAMBI,) 4 mg 00 CTIONS. Medica l tablets follow Branch package directions methylPREDN 2022-0 Yes [id number] Take by [facility] ISolone 2-15 mouth ity of (MEDROL, 00:00: SEE-INSTRU [place] BAMBI,) 4 mg 00 CTIONS. Medica l tablets follow Branch package directions methylPREDN 2022-0 Yes [id number] Take by [facility] ISolone 2-15 mouth ity of (MEDROL, 00:00: SEE-INSTRU [place] BAMBI,) 4 mg 00 CTIONS. Medica l tablets follow Branch package directions methylPREDN 2022-0 Yes [id number] Take by [facility] ISolone 2-15 mouth ity of (MEDROL, 00:00: SEE-INSTRU [place] BAMBI,) 4 mg 00 CTIONS. Medica l tablets follow Branch package directions methylPREDN 2022-0 Yes [id number] Take by [facility] ISolone 2-15 mouth ity of (MEDROL, 00:00: SEE-INSTRU [place]AMBI,) 4 mg 00 CTIONS. Medica l tablets follow Branch package directions methylPREDN 2022-0 Yes [id number] Take by [facility] ISolone 2-15 mouth ity of (MEDROL, 00:00: SEE-INSTRU [place] BAMBI,) 4 mg 00 CTIONS. Medica l tablets follow Branch package directions methylPREDN 2022-0 Yes [id number] Take by [facility] ISolone 2-15 mouth ity of (MEDROL, 00:00: SEE-INSTRU [place]AM[place],) 4 mg 00 CTIONS. Medica l tablets follow Branch package directions methylPREDN 2022-0 Yes [id number] Take by [facility] ISolone 2-15 mouth ity of (MEDROL, 00:00: SEE-INSTRU [place]AMBI,) 4 mg 00 CTIONS. Medica l tablets follow Branch package directions methylPREDN 2022-0 Yes [id number] Take by [facility] ISolone 2-15 mouth ity of (MEDROL, 00:00: SEE-INSTRU [place]AM[place],) 4 mg 00 CTIONS. Medica l tablets follow Branch package directions methylPREDN 2022-0 Yes [id number] Take by [facility] ISolone 2-15 mouth ity of (MEDROL, 00:00: SEE-INSTRU [place]AMBI,) 4 mg 00 CTIONS. Medica l tablets follow Branch package directions methylPREDN 2022-0 Yes [id number] Take by [facility] ISolone 2-15 mouth ity of (MEDROL, 00:00: SEE-INSTRU [place]AM[place],) 4 mg 00 CTIONS. Medica l tablets follow Branch package directions methylPREDN 2022-0 Yes [id number] Take by [facility] ISolone 2-15 mouth ity of (MEDROL, 00:00: SEE-INSTRU [place] BAMBI,) 4 mg 00 CTIONS. Medica l tablets follow Branch package directions methylPREDN 2022-0 Yes [id number] Take by [facility] ISolone 2-15 mouth ity of (MEDROL, 00:00: SEE-INSTRU [place]AM[place],) 4 mg 00 CTIONS. Medica l tablets follow Branch package directions methylPREDN 2022-0 Yes [id number] Take by [facility] ISolone 2-15 mouth ity of (MEDROL, 00:00: SEE-INSTRU [place]AM[place],) 4 mg 00 CTIONS. Medica l tablets follow Branch package directions methylPREDN 2022-0 Yes [id number] Take by [facility] ISolone 2-15 mouth ity of (MEDROL, 00:00: SEE-INSTRU [place],) 4 mg 00 CTIONS. Medica l tablets follow Branch package directions methylPREDN 2022-0 Yes [id number] Take by [facility] ISolone 2-15 mouth ity of (MEDROL, 00:00: SEE-INSTRU [place]AM[place],) 4 mg 00 CTIONS. Medica l tablets follow Branch package directions methylPREDN 2022-0 Yes [id number] Take by [facility] ISolone 2-15 mouth ity of (MEDROL, 00:00: SEE-INSTRU [place]AM[place],) 4 mg 00 CTIONS. Medica l tablets follow Branch package directions methylPREDN 2022-0 Yes [id number] Take by [facility] ISolone 2-15 mouth ity of (MEDROL, 00:00: SEE-INSTRU [place]AMBI,) 4 mg 00 CTIONS. Medica l tablets follow Branch package directions methylPREDN 2022-0 Yes [id number] Take by [facility] ISolone 2-15 mouth ity of (MEDROL, 00:00: SEE-INSTRU [place]AM[place],) 4 mg 00 CTIONS. Medica l tablets follow Branch package directions methylPREDN 2022-0 Yes [id number] Take by [facility] ISolone 2-15 mouth ity of (MEDROL, 00:00: SEE-INSTRU [place]AM[place],) 4 mg 00 CTIONS. Medica l tablets follow Branch package directions methylPREDN 2022-0 Yes [id number] Take by [facility] ISolone 2-15 mouth ity of (MEDROL, 00:00: SEE-INSTRU [place]AMBI,) 4 mg 00 CTIONS. Medica l tablets follow Branch package directions methylPREDN 2022-0 Yes [id number] Take by [facility] ISolone 2-15 mouth ity of (MEDROL, 00:00: SEE-INSTRU [place]AMBI,) 4 mg 00 CTIONS. Medica l tablets follow Branch package directions methylPREDN 2022-0 Yes [id number] Take by [facility] ISolone 2-15 mouth ity of (MEDROL, 00:00: SEE-INSTRU [place]AMBI,) 4 mg 00 CTIONS. Medica l tablets follow Branch package directions methylPREDN Yes [id number] Take by [facility] ISolone 2-15 mouth ity of (MEDROL, 00:00: SEE-INSTRU [place]AM[place],) 4 mg 00 CTIONS. Medica l tablets follow Branch package directions methylPREDN 2021- No [id number] Take by [facility] ISolone 212-19 mouth ity of (MEDROL, 00:00: 05:59 SEE-INSTRU [place] BAMBI,) 4 mg 00 :00 CTIONS for Med ical tablets 5 days. Branch follow package directions methylPREDN 2021- No [id number] Take by [facility] ISolone 212-13 mouth ity of (MEDROL, 00:00: 00:00 SEE-INSTRU [place] BAMBI,) 4 mg 00 :00 CTIONS for Med ical tablets 5 days. Branch follow package directions omeprazole 2021- No [id number] 40mg Take 1 [facility] 40 mg 2-14 - capsule by ity of capsule 00:00: 05:59 mouth [place] 00 :00 daily for Medical 14 days. [place] omeprazole 2021- No [id number] 40mg Take 1 [facility] 40 mg 2-14 - capsule by ity of capsule 00:00: 05:59 mouth [place] 00 :00 daily for Medical 14 days. [place] omeprazole 2021- No [id number] 40mg Take 1 [facility] 40 mg 2-14 - capsule by ity of capsule 00:00: 05:59 mouth [place] 00 :00 daily for Medical 14 days. [place] omeprazole 2021- No [id number] 40mg Take 1 [facility] 40 mg 2-14 03-01 capsule by ity of capsule 00:00: 05:59 mouth [place] 00 :00 daily for Medical 14 days. [place] omeprazole 2021- No [id number] 40mg Take 1 [facility] 40 mg 2-14 - capsule by ity of capsule 00:00: 05:59 mouth [place] 00 :00 daily for Medical 14 days. [place] bromphenira 2021- No [id number] 10mL Take 10 mL [facility] mine-pseudo 12-12 by mouth 4 i ty of ephedrine-D 00:00: 05:59 (four) [place] M (BROMFED 00 :00 times Medical DM) 2-30-10 daily as Bran ch mg/5 mL needed for syrup Congestion /Allergies for up to 10 days. ondansetron 2021- No [id number] 4mg Take 1 [facility] (ZOFRAN) 4 12-12 tablet by ity of mg tablet 00:00: 05:59 mouth [place] 00 :00 every 8 Medical (eight) Branch hours as needed for Nausea and Vomiting (N/V) for up to 10 days. ciprofloxac 2021- No [id number] 4[drp] Place 4 [facility] in-dexameth 12-12 [id number] Drops in it y of asone 00:00: 05:59 right ear [place] (CIPRODEX) 00 :00 2 (two) Medica l 0.3-0.1 % times Branch otic drops daily for 10 days. ibuprofen 2021- No [id number] 600mg Take 1 [facility] 600 mg 12-12 [id number] tablet by ity of tablet 00:00: 05:59 mouth [place] 00 :00 every 6 Medical (six) Branch hours as needed for Pain (scale 4-6) for up to 10 days. bromphenira 2021- No [id number] 10mL Take 10 mL [facility] mine-pseudo 12-12 by mouth 4 i ty of ephedrine-D 00:00: 05:59 (four) [place] M (BROMFED 00 :00 times Medical DM) 2-30-10 daily as Bran ch mg/5 mL needed for syrup Congestion /Allergies for up to 10 days. ondansetron 2021- No [id number] 4mg Take 1 [facility] (ZOFRAN) 4 12-12 tablet by ity of mg tablet 00:00: 05:59 mouth [place] 00 :00 every 8 Medical (eight) Branch hours as needed for Nausea and Vomiting (N/V) for up to 10 days. ciprofloxac 2021- No [id number] 4[drp] Place 4 [facility] in-dexameth 12-12 [id number] Drops in it y of asone 00:00: 05:59 right ear [place] (CIPRODEX) 00 :00 2 (two) Medica l 0.3-0.1 % times Branch otic drops daily for 10 days. ibuprofen 2021- No [id number] 600mg Take 1 [facility] 600 mg 12-12 [id number] tablet by ity of tablet 00:00: 05:59 mouth [place] 00 :00 every 6 Medical (six) Branch hours as needed for Pain (scale 4-6) for up to 10 days. bromphenira 2021- No [id number] 10mL Take 10 mL [facility] mine-pseudo 12-12 by mouth 4 i ty of ephedrine-D 00:00: 05:59 (four) [place] M (BROMFED 00 :00 times Medical DM) 2-30-10 daily as Bran ch mg/5 mL needed for syrup Congestion /Allergies for up to 10 days. ondansetron 2021- No [id number] 4mg Take 1 [facility] (ZOFRAN) 4 12-12 tablet by ity of mg tablet 00:00: 05:59 mouth [place] 00 :00 every 8 Medical (eight) Branch hours as needed for Nausea and Vomiting (N/V) for up to 10 days. ciprofloxac 2021- No [id number] 4[drp] Place 4 [facility] in-dexameth 12-12 [id number] Drops in it y of asone 00:00: 05:59 right ear [place] (CIPRODEX) 00 :00 2 (two) Medica l 0.3-0.1 % times Branch otic drops daily for 10 days. ibuprofen 2021- No [id number] 600mg Take 1 [facility] 600 mg 12-12 [id number] tablet by ity of tablet 00:00: 05:59 mouth [place] 00 :00 every 6 Medical (six) Branch hours as needed for Pain (scale 4-6) for up to 10 days. bromphenira 2021- No [id number] 10mL Take 10 mL [facility] mine-pseudo 2-14 02-25 by mouth 4 i ty of ephedrine-D 00:00: 05:59 (four) [place] M (BROMFED 00 :00 times Medical DM) 2-30-10 daily as Bran ch mg/5 mL needed for syrup Congestion /Allergies for up to 10 days. ondansetron 2021- No [id number] 4mg Take 1 [facility] (ZOFRAN) 4 12-12 tablet by ity of mg tablet 00:00: 05:59 mouth [place] 00 :00 every 8 Medical (eight) Branch hours as needed for Nausea and Vomiting (N/V) for up to 10 days. ciprofloxac 2021- No [id number] 4[drp] Place 4 [facility] in-dexameth 12-12 [id number] Drops in it y of asone 00:00: 05:59 right ear [place] (CIPRODEX) 00 :00 2 (two) Medica l 0.3-0.1 % times Branch otic drops daily for 10 days. ibuprofen 2021- No [id number] 600mg Take 1 [facility] 600 mg 12-12 [id number] tablet by ity of tablet 00:00: 05:59 mouth [place] 00 :00 every 6 Medical (six) Branch hours as needed for Pain (scale 4-6) for up to 10 days. bromphenira 2021- No [id number] 10mL Take 10 mL [facility] mine-pseudo 12-12 by mouth 4 i ty of ephedrine-D 00:00: 05:59 (four) [place] M (BROMFED 00 :00 times Medical DM) 2-30-10 daily as Bran ch mg/5 mL needed for syrup Congestion /Allergies for up to 10 days. ondansetron 2021- No [id number] 4mg Take 1 [facility] (ZOFRAN) 4 12-12 tablet by ity of mg tablet 00:00: 05:59 mouth [place] 00 :00 every 8 Medical (eight) Branch hours as needed for Nausea and Vomiting (N/V) for up to 10 days. ciprofloxac 2021-2021- No [id number] 4[drp] Place 4 [facility] in-dexameth 12-12 [id number] Drops in it y of asone 00:00: 05:59 right ear [place] (CIPRODEX) 00 :00 2 (two) Medica l 0.3-0.1 % times Branch otic drops daily for 10 days. ibuprofen 2021- No [id number] 600mg Take 1 [facility] 600 mg 12-12 tablet by ity of tablet 00:00: 05:59 [...] [place] ORAL) Medical Branch cetirizine 2020-10 Yes [id number] 10mg Take 1 U n[facility] (ZYRTEC) 10 0-01 tablet by ity of mg tablet 00:00: mouth 00 daily. Medical Branch azelastine 2020-10 Yes [id number] 1{spray Use 1 [facility] 137 mcg 0-01 } [place] in ity of (0.1 %) 00:00: each [place] nasal spray 00 nostril 2 Med ical (two) Branch times daily. Use in each nostril as directed fluticasone 2020-10 Yes [id number] 1{spray Use 1 [facility] propionate 0-01 } [place] in ity o f 50 00:00: each [place] mcg/actuati 00 nostril Medic al on nasal daily. Branch spray cetirizine 2020-10 Yes [id number] 10mg Take 1 U nivers (ZYRTEC) 10 0-01 tablet by ity of mg tablet 00:00: mouth [place] 00 daily. Medical Branch azelastine 2020-10 Yes [id number] 1{spray Use 1 [facility] 137 mcg 0-01 } [place] in ity of (0.1 %) 00:00: each [place] nasal spray 00 nostril 2 Med ical (two) Branch times daily. Use in each nostril as directed fluticasone 2020-10 Yes [id number] 1{spray Use 1 [facility] propionate 0-01 } [place] in ity o f 50 00:00: each [place] mcg/actuati 00 nostril Medic al on nasal daily. Branch spray cetirizine 2020-10 Yes [id number] 10mg Take 1 U nivers (ZYRTEC) 10 0-01 tablet by ity of mg tablet 00:00: mouth [place] 00 daily. Medical Branch azelastine 2020-10 Yes [id number] 1{spray Use 1 [facility] 137 mcg 0-01 } [place] in ity of (0.1 %) 00:00: each [place] nasal spray 00 nostril 2 Med ical (two) Branch times daily. Use in each nostril as directed fluticasone 2020-10 Yes [id number] 1{spray Use 1 [facility] propionate 0-01 } [place] in ity o f 50 00:00: each [place] mcg/actuati 00 nostril Medic al on nasal daily. Branch spray cetirizine 2020-10 Yes [id number] 10mg Take 1 U nivers (ZYRTEC) 10 0-01 tablet by ity of mg tablet 00:00: mouth [place] 00 daily. Medical Branch azelastine 2020-10 Yes [id number] 1{spray Use 1 [facility] 137 mcg 0-01 } [place] in ity of (0.1 %) 00:00: each [place] nasal spray 00 nostril 2 Med ical (two) Branch times daily. Use in each nostril as directed fluticasone 2020-10 Yes [id number] 1{spray Use 1 [facility] propionate 0-01 } [place] in ity o f 50 00:00: each [place] mcg/actuati 00 nostril Medic al on nasal daily. Branch spray cetirizine 2020-10 Yes [id number] 10mg Take 1 U nivers (ZYRTEC) 10 0-01 tablet by ity of mg tablet 00:00: mouth [place] 00 daily. Medical Branch azelastine 2020-10 Yes [id number] 1{spray Use 1 [facility] 137 mcg 0-01 } [place] in ity of (0.1 %) 00:00: each [place] nasal spray 00 nostril 2 Med ical (two) Branch times daily. Use in each nostril as directed fluticasone 2020-10 Yes [id number] 1{spray Use 1 [facility] propionate 0-01 } [place] in ity o f 50 00:00: each [place] mcg/actuati 00 nostril Medic al on nasal daily. Branch spray cetirizine 2020-10 Yes [id number] 10mg Take 1 U nivers (ZYRTEC) 10 0-01 tablet by ity of mg tablet 00:00: mouth [place] 00 daily. Medical Branch azelastine 2020-10 Yes [id number] 1{spray Use 1 [facility] 137 mcg 0-01 } [place] in ity of (0.1 %) 00:00: each [place] nasal spray 00 nostril 2 Med ical (two) Branch times daily. Use in each nostril as directed fluticasone 2020-10 Yes [id number] 1{spray Use 1 [facility] propionate 0-01 } [place] in ity o f 50 00:00: each [place] mcg/actuati 00 nostril Medic al on nasal daily. Branch spray cetirizine 2020-10 Yes [id number] 10mg Take 1 U nivers (ZYRTEC) 10 0-01 tablet by ity of mg tablet 00:00: mouth [place] 00 daily. Medical Branch azelastine 2020-10 Yes [id number] 1{spray Use 1 [facility] 137 mcg 0-01 } [place] in ity of (0.1 %) 00:00: each [place] nasal spray 00 nostril 2 Med ical (two) Branch times daily. Use in each nostril as directed fluticasone 2020-10 Yes [id number] 1{spray Use 1 [facility] propionate 0-01 } [place] in ity o f 50 00:00: each [place] mcg/actuati 00 nostril Medic al on nasal daily. Branch spray cetirizine 2020-10 Yes [id number] 10mg Take 1 U nivers (ZYRTEC) 10 0-01 tablet by ity of mg tablet 00:00: mouth [place] 00 daily. Medical Branch azelastine 2020-10 Yes [id number] 1{spray Use 1 [facility] 137 mcg 0-01 } [place] in ity of (0.1 %) 00:00: each [place] nasal spray 00 nostril 2 Med ical (two) Branch times daily. Use in each nostril as directed fluticasone 2020-10 Yes [id number] 1{spray Use 1 [facility] propionate 0-01 } [place] in ity o f 50 00:00: each [place] mcg/actuati 00 nostril Medic al on nasal daily. Branch spray cetirizine 2020-10 Yes [id number] 10mg Take 1 U nivers (ZYRTEC) 10 0-01 tablet by ity of mg tablet 00:00: mouth [place] 00 daily. Medical Branch azelastine 2020-10 Yes [id number] 1{spray Use 1 [facility] 137 mcg 0-01 } [place] in ity of (0.1 %) 00:00: each [place] nasal spray 00 nostril 2 Med ical (two) Branch times daily. Use in each nostril as directed fluticasone 2020-10 Yes [id number] 1{spray Use 1 [facility] propionate 0-01 } [place] in ity o f 50 00:00: each [place] mcg/actuati 00 nostril Medic al on nasal daily. Branch spray cetirizine 2020-10 Yes [id number] 10mg Take 1 U nivers (ZYRTEC) 10 0-01 tablet by ity of mg tablet 00:00: mouth [place] 00 daily. Medical Branch azelastine 2020-10 Yes [id number] 1{spray Use 1 [facility] 137 mcg 0-01 } [place] in ity of (0.1 %) 00:00: each [place] nasal spray 00 nostril 2 Med ical (two) Branch times daily. Use in each nostril as directed fluticasone 2020-10 Yes [id number] 1{spray Use 1 [facility] propionate 0-01 } [place] in ity o f 50 00:00: each [place] mcg/actuati 00 nostril Medic al on nasal daily. Branch spray cetirizine 2020-10 Yes [id number] 10mg Take 1 U nivers (ZYRTEC) 10 0-01 tablet by ity of mg tablet 00:00: mouth [place] 00 daily. Medical Branch azelastine 2020-10 Yes [id number] 1{spray Use 1 [facility] 137 mcg 0-01 } [place] in ity of (0.1 %) 00:00: each [place] nasal spray 00 nostril 2 Med ical (two) Branch times daily. Use in each nostril as directed fluticasone 2020-10 Yes [id number] 1{spray Use 1 [facility] propionate 0-01 } [place] in ity o f 50 00:00: each [place] mcg/actuati 00 nostril Medic al on nasal daily. Branch spray cetirizine 2020-10 Yes [id number] 10mg Take 1 U nivers (ZYRTEC) 10 0-01 tablet by ity of mg tablet 00:00: mouth [place] 00 daily. Medical Branch azelastine 2020-10 Yes [id number] 1{spray Use 1 [facility] 137 mcg 0-01 } [place] in ity of (0.1 %) 00:00: each [place] nasal spray 00 nostril 2 Med ical (two) Branch times daily. Use in each nostril as directed fluticasone 2020-10 Yes [id number] 1{spray Use 1 [facility] propionate 0-01 } [place] in ity o f 50 00:00: each [place] mcg/actuati 00 nostril Medic al on nasal daily. Branch spray cetirizine 2020-10 Yes [id number] 10mg Take 1 U nivers (ZYRTEC) 10 0-01 tablet by ity of mg tablet 00:00: mouth [place] 00 daily. Medical Branch azelastine 2020-10 Yes [id number] 1{spray Use 1 [facility] 137 mcg 0-01 } [place] in ity of (0.1 %) 00:00: each [place] nasal spray 00 nostril 2 Med ical (two) Branch times daily. Use in each nostril as directed fluticasone 2020-10 Yes [id number] 1{spray Use 1 [facility] propionate 0-01 } [place] in ity o f 50 00:00: each [place] mcg/actuati 00 nostril Medic al on nasal daily. Branch spray cetirizine 2020-10 Yes [id number] 10mg Take 1 U nivers (ZYRTEC) 10 0-01 tablet by ity of mg tablet 00:00: mouth [place] 00 daily. Medical Branch azelastine 2020-10 Yes [id number] 1{spray Use 1 [facility] 137 mcg 0-01 } [place] in ity of (0.1 %) 00:00: each [place] nasal spray 00 nostril 2 Med ical (two) Branch times daily. Use in each nostril as directed fluticasone 2020-10 Yes [id number] 1{spray Use 1 [facility] propionate 0-01 } [place] in ity o f 50 00:00: each [place] mcg/actuati 00 nostril Medic al on nasal daily. Branch spray cetirizine 2020-10 Yes [id number] 10mg Take 1 U nivers (ZYRTEC) 10 0-01 tablet by ity of mg tablet 00:00: mouth [place] 00 daily. Medical Branch azelastine 2020-10 Yes [id number] 1{spray Use 1 [facility] 137 mcg 0-01 } [place] in ity of (0.1 %) 00:00: each [place] nasal spray 00 nostril 2 Med ical (two) Branch times daily. Use in each nostril as directed fluticasone 2020-10 Yes [id number] 1{spray Use 1 [facility] propionate 0-01 } [place] in ity o f 50 00:00: each [place] mcg/actuati 00 nostril Medic al on nasal daily. Branch spray cetirizine 2020-10 Yes [id number] 10mg Take 1 U nivers (ZYRTEC) 10 0-01 tablet by ity of mg tablet 00:00: mouth [place] 00 daily. Medical Branch azelastine 2020-10 Yes [id number] 1{spray Use 1 [facility] 137 mcg 0-01 } [place] in ity of (0.1 %) 00:00: each [place] nasal spray 00 nostril 2 Med ical (two) Branch times daily. Use in each nostril as directed fluticasone 2020-10 Yes [id number] 1{spray Use 1 [facility] propionate 0-01 } [place] in ity o f 50 00:00: each [place] mcg/actuati 00 nostril Medic al on nasal daily. Branch spray cetirizine 2020-10 Yes [id number] 10mg Take 1 U nivers (ZYRTEC) 10 0-01 tablet by ity of mg tablet 00:00: mouth [place] 00 daily. Medical Branch azelastine 2020-10 Yes [id number] 1{spray Use 1 [facility] 137 mcg 0-01 } [place] in ity of (0.1 %) 00:00: each [place] nasal spray 00 nostril 2 Med ical (two) Branch times daily. Use in each nostril as directed fluticasone 2020-10 Yes [id number] 1{spray Use 1 [facility] propionate 0-01 } [place] in ity o f 50 00:00: each [place] mcg/actuati 00 nostril Medic al on nasal daily. Branch spray cetirizine 2020-10 Yes [id number] 10mg Take 1 U nivers (ZYRTEC) 10 0-01 tablet by ity of mg tablet 00:00: mouth [place] 00 daily. Medical Branch azelastine 2020-10 Yes [id number] 1{spray Use 1 [facility] 137 mcg 0-01 } [place] in ity of (0.1 %) 00:00: each [place] nasal spray 00 nostril 2 Med ical (two) Branch times daily. Use in each nostril as directed fluticasone 2020-10 Yes [id number] 1{spray Use 1 [facility] propionate 0-01 } [place] in ity o f 50 00:00: each [place] mcg/actuati 00 nostril Medic al on nasal daily. Branch spray cetirizine 2020-10 Yes [id number] 10mg Take 1 U nivers (ZYRTEC) 10 0-01 tablet by ity of mg tablet 00:00: mouth [place] 00 daily. Medical Branch azelastine 2020-10 Yes [id number] 1{spray Use 1 [facility] 137 mcg 0-01 } [place] in ity of (0.1 %) 00:00: each [place] nasal spray 00 nostril 2 Med ical (two) Branch times daily. Use in each nostril as directed fluticasone 2020-10 Yes [id number] 1{spray Use 1 [facility] propionate 0-01 } [place] in ity o f 50 00:00: each [place] mcg/actuati 00 nostril Medic al on nasal daily. Branch spray cetirizine 2020-10 Yes [id number] 10mg Take 1 U nivers (ZYRTEC) 10 0-01 tablet by ity of mg tablet 00:00: mouth [place] 00 daily. Medical Branch azelastine 2020-10 Yes [id number] 1{spray Use 1 [facility] 137 mcg 0-01 } [place] in ity of (0.1 %) 00:00: each [place] nasal spray 00 nostril 2 Med ical (two) Branch times daily. Use in each nostril as directed fluticasone 2020-10 Yes [id number] 1{spray Use 1 [facility] propionate 0-01 } [place] in ity o f 50 00:00: each [place] mcg/actuati 00 nostril Medic al on nasal daily. Branch spray cetirizine 2020-10 Yes [id number] 10mg Take 1 U nivers (ZYRTEC) 10 0-01 tablet by ity of mg tablet 00:00: mouth [place] 00 daily. Medical Branch azelastine 2020-10 Yes [id number] 1{spray Use 1 [facility] 137 mcg 0-01 } [place] in ity of (0.1 %) 00:00: each [place] nasal spray 00 nostril 2 Med ical (two) Branch times daily. Use in each nostril as directed fluticasone 2020-10 Yes [id number] 1{spray Use 1 [facility] propionate 0-01 } [place] in ity o f 50 00:00: each [place] mcg/actuati 00 nostril Medic al on nasal daily. Branch spray cetirizine 2020-10 Yes [id number] 10mg Take 1 U nivers (ZYRTEC) 10 0-01 tablet by ity of mg tablet 00:00: mouth [place] 00 daily. Medical Branch azelastine 2020-10 Yes [id number] 1{spray Use 1 [facility] 137 mcg 0-01 } [place] in ity of (0.1 %) 00:00: each [place] nasal spray 00 nostril 2 Med ical (two) Branch times daily. Use in each nostril as directed fluticasone 2020-10 Yes [id number] 1{spray Use 1 [facility] propionate 0-01 } [place] in ity o f 50 00:00: each [place] mcg/actuati 00 nostril Medic al on nasal daily. Branch spray cetirizine 2020-10 Yes [id number] 10mg Take 1 U nivers (ZYRTEC) 10 0-01 tablet by ity of mg tablet 00:00: mouth [place] 00 daily. Medical Branch azelastine 2020-10 Yes [id number] 1{spray Use 1 [facility] 137 mcg 0-01 } [place] in ity of (0.1 %) 00:00: each [place] nasal spray 00 nostril 2 Med ical (two) Branch times daily. Use in each nostril as directed fluticasone 2020-10 Yes [id number] 1{spray Use 1 [facility] propionate 0-01 } [place] in ity o f 50 00:00: each [place] mcg/actuati 00 nostril Medic al on nasal daily. Branch spray cetirizine 2020-10 Yes [id number] 10mg Take 1 U nivers (ZYRTEC) 10 0-01 tablet by ity of mg tablet 00:00: mouth [place] 00 daily. Medical Branch azelastine 2020-10 Yes [id number] 1{spray Use 1 [facility] 137 mcg 0-01 } [place] in ity of (0.1 %) 00:00: each [place] nasal spray 00 nostril 2 Med ical (two) Branch times daily. Use in each nostril as directed fluticasone 2020-10 Yes [id number] 1{spray Use 1 [facility] propionate 0-01 } [place] in ity o f 50 00:00: each [place] mcg/actuati 00 nostril Medic al on nasal daily. Branch spray cetirizine 2020-10 Yes [id number] 10mg Take 1 U nivers (ZYRTEC) 10 0-01 tablet by ity of mg tablet 00:00: mouth [place] 00 daily. Medical Branch azelastine 2020-10 Yes [id number] 1{spray Use 1 [facility] 137 mcg 0-01 } [place] in ity of (0.1 %) 00:00: each [place] nasal spray 00 nostril 2 Med ical (two) Branch times daily. Use in each nostril as directed fluticasone 2020-10 Yes [id number] 1{spray Use 1 [facility] propionate 0-01 } [place] in ity o f 50 00:00: each [place] mcg/actuati 00 nostril Medic al on nasal daily. Branch spray cetirizine 2020-10 Yes [id number] 10mg Take 1 U nivers (ZYRTEC) 10 0-01 tablet by ity of mg tablet 00:00: mouth [place] 00 daily. Medical Branch azelastine 2020-10 Yes [id number] 1{spray Use 1 [facility] 137 mcg 0-01 } [place] in ity of (0.1 %) 00:00: each [place] nasal spray 00 nostril 2 Med ical (two) Branch times daily. Use in each nostril as directed fluticasone 2020-10 Yes [id number] 1{spray Use 1 [facility] propionate 0-01 } [place] in ity o f 50 00:00: each [place] mcg/actuati 00 nostril Medic al on nasal daily. Branch spray cetirizine 2020-10 Yes [id number] 10mg Take 1 [facility] (ZYRTEC) 10 0-01 tablet by ity of mg tablet 00:00: mouth [place] 00 daily. Medical [facility] azelastine 2020-10 Yes [id number] 1{spray Use 1 [facility] 137 mcg 0-01 } [place] in ity of (0.1 %) 00:00: each [place] nasal spray 00 nostril 2 Med ical (two) Branch times daily. Use in each nostril as directed fluticasone 2020-10 Yes [id number] 1{spray Use 1 [facility] propionate 0-01 } [place] in ity o f 50 00:00: each [place] mcg/actuati 00 nostril Medic al on nasal daily. Branch spray cetirizine 2020-10 Yes [id number] 10mg Take 1 [facility] (ZYRTEC) 10 0-01 tablet by ity of mg tablet 00:00: mouth [place] 00 daily. Medical [facility] azelastine 2020-10 Yes [id number] 1{spray Use 1 [facility] 137 mcg 0-01 } [place] in ity of (0.1 %) 00:00: each [place] nasal spray 00 nostril 2 Med ical (two) Branch times daily. Use in each nostril as directed fluticasone 2020-10 Yes [id number] 1{spray Use 1 [facility] propionate 0-01 } [place] in ity o f 50 00:00: each [place] mcg/actuati 00 nostril Medic al on nasal daily. Branch spray cetirizine 2020-10 Yes [id number] 10mg Take 1 [facility] (ZYRTEC) 10 0-01 tablet by ity of mg tablet 00:00: mouth [place] 00 daily. Medical [facility] azelastine 2020-10 Yes [id number] 1{spray Use 1 [facility] 137 mcg 0-01 } [place] in ity of (0.1 %) 00:00: each [place] nasal spray 00 nostril 2 Med ical (two) Branch times daily. Use in each nostril as directed fluticasone 2020-10 Yes [id number] 1{spray Use 1 [facility] propionate 0-01 } [place] in ity o f 50 00:00: each [place] mcg/actuati 00 nostril Medic al on nasal daily. Branch spray cetirizine 2020-10 Yes [id number] 10mg Take 1 [facility] (ZYRTEC) 10 0-01 tablet by ity of mg tablet 00:00: mouth [place] 00 daily. [facility] azelastine 2020-10 Yes [id number] 1{spray Use 1 [facility] 137 mcg 0-01 } [place] in ity of (0.1 %) 00:00: each [place] nasal spray 00 nostril 2 Med ical (two) Branch times daily. Use in each nostril as directed fluticasone 2020-10 Yes [id number] 1{spray Use 1 [facility] propionate 0-01 } [place] in ity o f 50 00:00: each [place] mcg/actuati 00 nostril Medic al on nasal daily. Branch spray cetirizine 2020-10 Yes [id number] 10mg Take 1 [facility] (ZYRTEC) 10 0-01 tablet by ity of mg tablet 00:00: mouth [place] 00 daily. Medical [facility] azelastine 2020-10 Yes [id number] 1{spray Use 1 [facility] 137 mcg 0-01 } [place] in ity of (0.1 %) 00:00: each [place] nasal spray 00 nostril 2 Med ical (two) Branch times daily. Use in each nostril as directed fluticasone 2020-10 Yes [id number] 1{spray Use 1 [facility] propionate 0-01 } [place] in ity o f 50 00:00: each [place] mcg/actuati 00 nostril Medic al on nasal daily. Branch spray cetirizine 2020-10 Yes [id number] 10mg Take 1 [facility] (ZYRTEC) 10 0-01 tablet by ity of mg tablet 00:00: mouth [place] 00 daily. Medical [facility] azelastine 2020-10 Yes [id number] 1{spray Use 1 [facility] 137 mcg 0-01 } [place] in ity of (0.1 %) 00:00: each [place] nasal spray 00 nostril 2 Med ical (two) Branch times daily. Use in each nostril as directed fluticasone 2020-10 Yes [id number] 1{spray Use 1 [facility] propionate 0-01 } [place] in ity o f 50 00:00: each [place] mcg/actuati 00 nostril Medic al on nasal daily. Branch spray cetirizine 2020-10 Yes [id number] 10mg Take 1 [facility] (ZYRTEC) 10 0-01 tablet by ity of mg tablet 00:00: mouth [place] 00 daily. Medical [facility] azelastine 2020-10 Yes [id number] 1{spray Use 1 [facility] 137 mcg 0-01 } [place] in ity of (0.1 %) 00:00: each [place] nasal spray 00 nostril 2 Med ical (two) Branch times daily. Use in each nostril as directed fluticasone 2020-10 Yes [id number] 1{spray Use 1 [facility] propionate 0-01 } [place] in ity o f 50 00:00: each [place] mcg/actuati 00 nostril Medic al on nasal daily. Branch spray cetirizine 2020-10 Yes [id number] 10mg Take 1 [facility] (ZYRTEC) 10 0-01 tablet by ity of mg tablet 00:00: mouth [place] 00 daily. Medical [facility] azelastine 2020-10 Yes [id number] 1{spray Use 1 [facility] 137 mcg 0-01 } [place] in ity of (0.1 %) 00:00: each [place] nasal spray 00 nostril 2 Med ical (two) Branch times daily. Use in each nostril as directed fluticasone 2020-10 Yes [id number] 1{spray Use 1 [facility] propionate 0-01 } [place] in ity o f 50 00:00: each [place] mcg/actuati 00 nostril Medic al on nasal daily. Branch spray cetirizine 2020-10 Yes [id number] 10mg Take 1 [facility] (ZYRTEC) 10 0-01 tablet by ity of mg tablet 00:00: mouth [place] 00 daily. Medical [facility] azelastine 2020-10 Yes [id number] 1{spray Use 1 [facility] 137 mcg 0-01 } [place] in ity of (0.1 %) 00:00: each [place] nasal spray 00 nostril 2 Med ical (two) Branch times daily. Use in each nostril as directed fluticasone 2020-10 Yes [id number] 1{spray Use 1 [facility] propionate 0-01 } [place] in ity o f 50 00:00: each [place] mcg/actuati 00 nostril Medic al on nasal daily. Branch spray cetirizine 2020-10 Yes [id number] 10mg Take 1 [facility] (ZYRTEC) 10 0-01 tablet by ity of mg tablet 00:00: mouth [place] 00 daily. Medical [facility] azelastine 2020-10 Yes [id number] 1{spray Use 1 [facility] 137 mcg 0-01 } [place] in ity of (0.1 %) 00:00: each [place] nasal spray 00 nostril 2 Med ical (two) Branch times daily. Use in each nostril as directed fluticasone 2020-10 Yes [id number] 1{spray Use 1 [facility] propionate 0-01 } [place] in ity o f 50 00:00: each [place] mcg/actuati 00 nostril Medic al on nasal daily. Branch spray cetirizine 2020-10 Yes [id number] 10mg Take 1 [facility] (ZYRTEC) 10 0-01 tablet by ity of mg tablet 00:00: mouth [place] 00 daily. Medical [facility] azelastine 2020-10 Yes [id number] 1{spray Use 1 [facility] 137 mcg 0-01 } [place] in ity of (0.1 %) 00:00: each [place] nasal spray 00 nostril 2 Med ical (two) Branch times daily. Use in each nostril as directed fluticasone 2020-10 Yes [id number] 1{spray Use 1 [facility] propionate 0-01 } [place] in ity o f 50 00:00: each [place] mcg/actuati 00 nostril Medic al on nasal daily. Branch spray bromphenira 2020-10- No [id number] 5mL Take 5 mL [facility] mine-pseudo 0- 02-14 by mouth 4 i ty of ephedrine-D 00:00: 00:00 (four) [place] as M (BROMFED 00 :00 times Medical DM) 2-30-10 daily as Bran ch mg/5 mL needed for syrup Congestion /Allergies . ibuprofen 2021- No [id number] 600mg Take 1 [facility] 600 mg [id number] tablet by ity of tablet 00:00: 00:00 mouth [place] 00 :00 every 6 Medical (six) Branch hours as needed for Pain (scale 4-6). benzonatate 2020-0 Yes [id number] 100mg Take 1 [facility] 100 mg 9-10 capsule by ity of capsule 00:00: mouth (three) Medical times Branch daily as needed for Cough. benzonatate 2020-0 Yes [id number] 100mg Take 1 [facility] 100 mg 9-10 capsule by ity of capsule 00:00: mouth (three) Medical times Branch daily as needed for Cough. benzonatate 2020-0 Yes [id number] 100mg Take 1 [facility] 100 mg 9-10 capsule by ity of capsule 00:00: mouth (three) Medical times Branch daily as needed for Cough. benzonatate 2020-0 Yes [id number] 100mg Take 1 [facility] 100 mg 9-10 capsule by ity of capsule 00:00: mouth (three) Medical times Branch daily as needed for Cough. benzonatate 2020-0 Yes [id number] 100mg Take 1 [facility] 100 mg 9-10 capsule by ity of capsule 00:00: mouth (three) Medical times Branch daily as needed for Cough. benzonatate 2020-0 Yes [id number] 100mg Take 1 [facility] 100 mg 9-10 capsule by ity of capsule 00:00: mouth (three) Medical times Branch daily as needed for Cough. benzonatate 2020-0 Yes [id number] 100mg Take 1 [facility] 100 mg 9-10 capsule by ity of capsule 00:00: mouth (three) Medical times Branch daily as needed for Cough. benzonatate 2020-0 Yes [id number] 100mg Take 1 [facility] 100 mg 9-10 capsule by ity of capsule 00:00: mouth (three) Medical times Branch daily as needed for Cough. benzonatate 1-0 Yes [id number] 100mg Take 1 [facility] 100 mg 9-10 capsule by ity of capsule 00:00: mouth (three) Medical times Branch daily as needed for Cough. benzonatate 1-0 Yes [id number] 100mg Take 1 [facility] 100 mg 9-10 capsule by ity of capsule 00:00: mouth (three) Medical times Branch daily as needed for Cough. benzonatate 2020-0 Yes [id number] 100mg Take 1 [facility] 100 mg 9-10 capsule by ity of capsule 00:00: mouth (three) Medical times Branch daily as needed for Cough. benzonatate 2020-0 Yes [id number] 100mg Take 1 [facility] 100 mg 9-10 capsule by ity of capsule 00:00: mouth (three) Medical times Branch daily as needed for Cough. benzonatate 2020-0 Yes [id number] 100mg Take 1 [facility] 100 mg 9-10 capsule by ity of capsule 00:00: mouth (three) Medical times Branch daily as needed for Cough. benzonatate 2020-0 Yes [id number] 100mg Take 1 [facility] 100 mg 9-10 capsule by ity of capsule 00:00: mouth (three) Medical times Branch daily as needed for Cough. benzonatate 2020-0 Yes [id number] 100mg Take 1 [facility] 100 mg 9-10 capsule by ity of capsule 00:00: mouth (three) Medical times Branch daily as needed for Cough. benzonatate 2020-0 Yes [id number] 100mg Take 1 [facility] 100 mg 9-10 capsule by ity of capsule 00:00: mouth (three) Medical times Branch daily as needed for Cough. benzonatate 2020-0 Yes [id number] 100mg Take 1 [facility] 100 mg 9-10 capsule by ity of capsule 00:00: mouth (three) Medical times Branch daily as needed for Cough. benzonatate 2020-0 Yes [id number] 100mg Take 1 [facility] 100 mg 9-10 capsule by ity of capsule 00:00: mouth (three) Medical times Branch daily as needed for Cough. benzonatate 2020-0 Yes [id number] 100mg Take 1 [facility] 100 mg 9-10 capsule by ity of capsule 00:00: mouth (three) Medical times Branch daily as needed for Cough. benzonatate 1-0 Yes [id number] 100mg Take 1 [facility] 100 mg 9-10 capsule by ity of capsule 00:00: mouth (three) Medical times Branch daily as needed for Cough. benzonatate 2020-0 Yes [id number] 100mg Take 1 [facility] 100 mg 9-10 capsule by ity of capsule 00:00: mouth (three) Medical times Branch daily as needed for Cough. benzonatate 1-0 Yes [id number] 100mg Take 1 [facility] 100 mg 9-10 capsule by ity of capsule 00:00: mouth (three) Medical times Branch daily as needed for Cough. benzonatate 1-0 Yes [id number] 100mg Take 1 [facility] 100 mg 9-10 capsule by ity of capsule 00:00: mouth (three) Medical times Branch daily as needed for Cough. benzonatate 2020-0 Yes [id number] 100mg Take 1 [facility] 100 mg 9-10 capsule by ity of capsule 00:00: mouth (three) Medical times Branch daily as needed for Cough. benzonatate 2020-0 Yes [id number] 100mg Take 1 [facility] 100 mg 9-10 capsule by ity of capsule 00:00: mouth (three) Medical times Branch daily as needed for Cough. benzonatate 2020-0 Yes [id number] 100mg Take 1 [facility] 100 mg 9-10 capsule by ity of capsule 00:00: mouth (three) Medical times Branch daily as needed for Cough. benzonatate 2020-0 Yes [id number] 100mg Take 1 [facility] 100 mg 9-10 capsule by ity of capsule 00:00: mouth (three) Medical times Branch daily as needed for Cough. benzonatate 2020-0 Yes [id number] 100mg Take 1 [facility] 100 mg 9-10 capsule by ity of capsule 00:00: mouth (three) Medical times Branch daily as needed for Cough. benzonatate 2020-0 Yes [id number] 100mg Take 1 [facility] 100 mg 9-10 capsule by ity of capsule 00:00: mouth (three) Medical times Branch daily as needed for Cough. benzonatate 1-0 Yes [id number] 100mg Take 1 [facility] 100 mg 9-10 capsule by ity of capsule 00:00: mouth (three) Medical times Branch daily as needed for Cough. benzonatate 1-0 Yes [id number] 100mg Take 1 [facility] 100 mg 9-10 capsule by ity of capsule 00:00: mouth (three) Medical times Branch daily as needed for Cough. benzonatate 2021-0 Yes [id number] 100mg Take 1 [facility] 100 mg 9-10 capsule by ity of capsule 00:00: mouth 3 (three) Medical times Branch daily as needed for Cough. benzonatate 2021-0 Yes [id number] 100mg Take 1 [facility] 100 mg 9-10 capsule by ity of capsule 00:00: mouth 3 (three) Medical times Branch daily as needed for Cough. benzonatate 2021-0 Yes [id number] 100mg Take 1 [facility] 100 mg 9-10 capsule by ity of capsule 00:00: mouth 3 (three) Medical times Branch daily as needed for Cough. benzonatate 2021-0 Yes [id number] 100mg Take 1 [facility] 100 mg 9-10 capsule by ity of capsule 00:00: mouth 3 (three) Medical times Branch daily as needed for Cough. benzonatate 2021-0 Yes [id number] 100mg Take 1 [facility] 100 mg 9-10 capsule by ity of capsule 00:00: mouth (three) Medical times Branch daily as needed for Cough. benzonatate 2021-0 Yes [id number] 100mg Take 1 [facility] 100 mg 9-10 capsule by ity of capsule 00:00: mouth (three) Medical times Branch daily as needed for Cough. medroxyPROG 2020-0 Yes [id number] Take one [facility] ESTERone 4-03 by mouth ity of (PROVERA) 00:00: days one [place] 10 mg 00 through 10 Medical tablet of each Branch month beginning 02/27/20. medroxyPROG 2020-0 Yes [id number] Take one [facility] ESTERone 4-03 by mouth ity of (PROVERA) 00:00: days one [place] 10 mg 00 through 10 Medical tablet of each Branch month beginning 02/27/20. medroxyPROG 2020-0 Yes [id number] Take one [facility] ESTERone 4-03 by mouth ity of (PROVERA) 00:00: days one [place] 10 mg 00 through 10 Medical tablet of each Branch month beginning 02/27/20. medroxyPROG 2020-0 Yes [id number] Take one [facility] ESTERone 4-03 by mouth ity of (PROVERA) 00:00: days one [place] 10 mg 00 through 10 Medical tablet of each Branch month beginning 02/27/20. medroxyPROG 2020-0 Yes [id number] Take one [facility] ESTERone 4-03 by mouth ity of (PROVERA) 00:00: days one [place] 10 mg 00 through 10 Medical tablet of each Branch month beginning 02/27/20. medroxyPROG 2020-0 Yes [id number] Take one [facility] ESTERone 4-03 by mouth ity of (PROVERA) 00:00: days one [place] 10 mg 00 through 10 Medical tablet of each Branch month beginning 02/27/20. medroxyPROG 2020-0 2021- No [id number] Take one [facility] ESTERone 4-03 12-21 by mouth ity of (PROVERA) 00:00: 00:00 days one [place] as 10 mg 00 :00 through 10 Medical tablet of each Branch month beginning 02/27/20. medroxyPROG 2020-0 2021- No [id number] Take one [facility] ESTERone 4-03 12-21 by mouth ity of (PROVERA) 00:00: 00:00 days one [place] as 10 mg 00 :00 through 10 Medical tablet of each Branch month beginning 02/27/20. medroxyPROG 2020-0 2021- No [id number] Take one [facility] ESTERone 4-03 12-21 by mouth ity of (PROVERA) 00:00: 00:00 days one [place] as 10 mg 00 :00 through 10 Medical tablet of each Branch month beginning 02/27/20. amitriptyli 2020-0 Yes [id number] 25mg Take 1 [facility] ne 25 mg 3-26 tablet by ity of tablet 00:00: mouth at [place] [address] bedtime. Medical Branch metoprolol 2020-0 Yes [id number] 50mg Take 1 [facility] tartrate 50 3-26 tablet by ity of mg tablet 00:00: mouth 2 [place] 00 (two) Medical times Branch daily. amitriptyli 2020-0 Yes [id number] 25mg Take 1 [facility] ne 25 mg 3-26 tablet by ity of tablet 00:00: mouth at [place] 00 bedtime. Medical Branch metoprolol 2020-0 Yes [id number] 50mg Take 1 [facility] tartrate 50 3-26 tablet by ity of mg tablet 00:00: mouth 2 [place] 00 (two) Medical times Branch daily. amitriptyli 2020-0 Yes [id number] 25mg Take 1 [facility] ne 25 mg 3-26 tablet by ity of tablet 00:00: mouth at [place] [address] bedtime. Medical Branch metoprolol 2020-0 Yes [id number] 50mg Take 1 [facility] tartrate 50 3-26 tablet by ity of mg tablet 00:00: mouth 2 [place] (two) Medical times Branch daily. amitriptyli 2020-0 Yes [id number] 25mg Take 1 [facility] ne 25 mg 3-26 tablet by ity of tablet 00:00: mouth at [place] [address] bedtime. Medical Branch metoprolol 2020-0 Yes [id number] 50mg Take 1 [facility] tartrate 50 3-26 tablet by ity of mg tablet 00:00: mouth 2 [place] (two) Medical times Branch daily. amitriptyli 2020-0 Yes [id number] 25mg Take 1 [facility] ne 25 mg 3-26 tablet by ity of tablet 00:00: mouth at [place] [address] bedtime. Medical Branch metoprolol 2020-0 Yes [id number] 50mg Take 1 [facility] tartrate 50 3-26 tablet by ity of mg tablet 00:00: mouth 2 [place] (two) Medical times Branch daily. amitriptyli 2020-0 Yes [id number] 25mg Take 1 [facility] ne 25 mg 3-26 tablet by ity of tablet 00:00: mouth at [place] [address] bedtime. Medical Branch metoprolol 2020-0 Yes [id number] 50mg Take 1 [facility] tartrate 50 3-26 tablet by ity of mg tablet 00:00: mouth 2 [place] (two) Medical times Branch daily. amitriptyli 2020-0 Yes [id number] 25mg Take 1 [facility] ne 25 mg 3-26 tablet by ity of tablet 00:00: mouth at [place] [address] bedtime. Medical Branch metoprolol 2020-0 Yes [id number] 50mg Take 1 [facility] tartrate 50 3-26 tablet by ity of mg tablet 00:00: mouth 2 [place] (two) Medical times Branch daily. amitriptyli 2020-0 Yes [id number] 25mg Take 1 [facility] ne 25 mg 3-26 tablet by ity of tablet 00:00: mouth at [place] [address] bedtime. Medical Branch metoprolol 2020-0 Yes [id number] 50mg Take 1 [facility] tartrate 50 3-26 tablet by ity of mg tablet 00:00: mouth 2 [place] (two) Medical times Branch daily. amitriptyli 2020-0 Yes [id number] 25mg Take 1 [facility] ne 25 mg 3-26 tablet by ity of tablet 00:00: mouth at [place] [address] bedtime. Medical Branch metoprolol 2020-0 Yes [id number] 50mg Take 1 [facility] tartrate 50 3-26 tablet by ity of mg tablet 00:00: mouth 2 [place] (two) Medical times Branch daily. amitriptyli 2020-0 Yes [id number] 25mg Take 1 [facility] ne 25 mg 3-26 tablet by ity of tablet 00:00: mouth at [place] [address] bedtime. Medical Branch metoprolol 2020-0 Yes [id number] 50mg Take 1 [facility] tartrate 50 3-26 tablet by ity of mg tablet 00:00: mouth 2 [place] (two) Medical times Branch daily. amitriptyli 2020-0 Yes [id number] 25mg Take 1 [facility] ne 25 mg 3-26 tablet by ity of tablet 00:00: mouth at [place] [address] bedtime. Medical Branch metoprolol 2020-0 Yes [id number] 50mg Take 1 [facility] tartrate 50 3-26 tablet by ity of mg tablet 00:00: mouth 2 [place] (two) Medical times Branch daily. amitriptyli 2020-0 Yes [id number] 25mg Take 1 [facility] ne 25 mg 3-26 tablet by ity of tablet 00:00: mouth at [place] [address] bedtime. Medical Branch metoprolol 2020-0 Yes [id number] 50mg Take 1 [facility] tartrate 50 3-26 tablet by ity of mg tablet 00:00: mouth 2 [place] (two) Medical times Branch daily. amitriptyli 2020-0 Yes [id number] 25mg Take 1 [facility] ne 25 mg 3-26 tablet by ity of tablet 00:00: mouth at [place] [address] bedtime. Medical Branch metoprolol 2020-0 Yes [id number] 50mg Take 1 [facility] tartrate 50 3-26 tablet by ity of mg tablet 00:00: mouth 2 [place] (two) Medical times Branch daily. amitriptyli 2020-0 Yes [id number] 25mg Take 1 [facility] ne 25 mg 3-26 tablet by ity of tablet 00:00: mouth at [place] [address] bedtime. Medical Branch metoprolol 2020-0 Yes [id number] 50mg Take 1 [facility] tartrate 50 3-26 tablet by ity of mg tablet 00:00: mouth 2 [place] (two) Medical times Branch daily. amitriptyli 2020-0 Yes [id number] 25mg Take 1 [facility] ne 25 mg 3-26 tablet by ity of tablet 00:00: mouth at [place] [address] bedtime. Medical Branch metoprolol 2020-0 Yes [id number] 50mg Take 1 [facility] tartrate 50 3-26 tablet by ity of mg tablet 00:00: mouth 2 [place] (two) Medical times Branch daily. amitriptyli 2020-0 Yes [id number] 25mg Take 1 [facility] ne 25 mg 3-26 tablet by ity of tablet 00:00: mouth at [place] [address] bedtime. Medical Branch metoprolol 2020-0 Yes [id number] 50mg Take 1 [facility] tartrate 50 3-26 tablet by ity of mg tablet 00:00: mouth 2 [place] (two) Medical times Branch daily. amitriptyli 2020-0 Yes [id number] 25mg Take 1 [facility] ne 25 mg 3-26 tablet by ity of tablet 00:00: mouth at [place] [address] bedtime. Medical Branch metoprolol 2020-0 Yes [id number] 50mg Take 1 [facility] tartrate 50 3-26 tablet by ity of mg tablet 00:00: mouth 2 [place] (two) Medical times Branch daily. amitriptyli 2020-0 Yes [id number] 25mg Take 1 [facility] ne 25 mg 3-26 tablet by ity of tablet 00:00: mouth at [place] [address] bedtime. Medical Branch metoprolol 2020-0 Yes [id number] 50mg Take 1 [facility] tartrate 50 3-26 tablet by ity of mg tablet 00:00: mouth 2 [place] (two) Medical times Branch daily. amitriptyli 2020-0 Yes [id number] 25mg Take 1 [facility] ne 25 mg 3-26 tablet by ity of tablet 00:00: mouth at [place] [address] bedtime. Medical Branch metoprolol 2020-0 Yes [id number] 50mg Take 1 [facility] tartrate 50 3-26 tablet by ity of mg tablet 00:00: mouth 2 [place] (two) Medical times Branch daily. amitriptyli 2020-0 Yes [id number] 25mg Take 1 [facility] ne 25 mg 3-26 tablet by ity of tablet 00:00: mouth at [place] [address] bedtime. Medical Branch metoprolol 2020-0 Yes [id number] 50mg Take 1 [facility] tartrate 50 3-26 tablet by ity of mg tablet 00:00: mouth 2 [place] (two) Medical times Branch daily. amitriptyli 2020-0 Yes [id number] 25mg Take 1 [facility] ne 25 mg 3-26 tablet by ity of tablet 00:00: mouth at [place] [address] bedtime. Medical Branch metoprolol 2020-0 Yes [id number] 50mg Take 1 [facility] tartrate 50 3-26 tablet by ity of mg tablet 00:00: mouth 2 [place] (two) Medical times Branch daily. amitriptyli 2020-0 Yes [id number] 25mg Take 1 [facility] ne 25 mg 3-26 tablet by ity of tablet 00:00: mouth at [place] [address] bedtime. Medical Branch metoprolol 2020-0 Yes [id number] 50mg Take 1 [facility] tartrate 50 3-26 tablet by ity of mg tablet 00:00: mouth 2 [place] (two) Medical times Branch daily. amitriptyli 2020-0 Yes [id number] 25mg Take 1 [facility] ne 25 mg 3-26 tablet by ity of tablet 00:00: mouth at [place] [address] bedtime. Medical Branch metoprolol 2020-0 Yes [id number] 50mg Take 1 [facility] tartrate 50 3-26 tablet by ity of mg tablet 00:00: mouth 2 [place] (two) Medical times Branch daily. amitriptyli 2020-0 Yes [id number] 25mg Take 1 [facility] ne 25 mg 3-26 tablet by ity of tablet 00:00: mouth at [place] [address] bedtime. Medical Branch metoprolol 2020-0 Yes [id number] 50mg Take 1 [facility] tartrate 50 3-26 tablet by ity of mg tablet 00:00: mouth 2 [place] (two) Medical times Branch daily. amitriptyli 2020-0 Yes [id number] 25mg Take 1 [facility] ne 25 mg 3-26 tablet by ity of tablet 00:00: mouth at [place] [address] bedtime. Medical Branch metoprolol 2020-0 Yes [id number] 50mg Take 1 [facility] tartrate 50 3-26 tablet by ity of mg tablet 00:00: mouth 2 [place] (two) Medical times Branch daily. amitriptyli 2020-0 Yes [id number] 25mg Take 1 [facility] ne 25 mg 3-26 tablet by ity of tablet 00:00: mouth at [place] [address] bedtime. Medical Branch metoprolol 2020-0 Yes [id number] 50mg Take 1 [facility] tartrate 50 3-26 tablet by ity of mg tablet 00:00: mouth 2 [place] (two) Medical times Branch daily. amitriptyli 2020-0 Yes [id number] 25mg Take 1 [facility] ne 25 mg 3-26 tablet by ity of tablet 00:00: mouth at [place] [address] bedtime. Medical Branch metoprolol 2020-0 Yes [id number] 50mg Take 1 [facility] tartrate 50 3-26 tablet by ity of mg tablet 00:00: mouth 2 [place] (two) Medical times Branch daily. amitriptyli 2020-0 Yes [id number] 25mg Take 1 [facility] ne 25 mg 3-26 tablet by ity of tablet 00:00: mouth at [place] [address] bedtime. Medical Branch metoprolol 2020-0 Yes [id number] 50mg Take 1 [facility] tartrate 50 3-26 tablet by ity of mg tablet 00:00: mouth 2 [place] ([facility]) Medical times Branch daily. amitriptyli 2020-0 Yes [id number] 25mg Take 1 [facility] ne 25 mg 3-26 tablet by ity of tablet 00:00: mouth at [place] [address] bedtime. Medical Branch metoprolol 2020-0 Yes [id number] 50mg Take 1 [facility] tartrate 50 3-26 tablet by ity of mg tablet 00:00: mouth 2 [place] ([facility]) Medical times Branch daily. amitriptyli 2020-0 Yes [id number] 25mg Take 1 [facility] ne 25 mg 3-26 tablet by ity of tablet 00:00: mouth at [place] [address] bedtime. Medical Branch metoprolol 2020-0 Yes [id number] 50mg Take 1 [facility] tartrate 50 3-26 tablet by ity of mg tablet 00:00: mouth 2 [place] (two) Medical times Branch daily. amitriptyli 2020-0 Yes [id number] 25mg Take 1 [facility] ne 25 mg 3-26 tablet by ity of tablet 00:00: mouth at [place] [address] bedtime. Medical Branch metoprolol 2020-0 Yes [id number] 50mg Take 1 [facility] tartrate 50 3-26 tablet by [facility] of mg tablet 00:00: mouth 2 [place] (two) Medical times Branch daily. amitriptyli 2020-0 Yes [id number] 25mg Take 1 [facility] 25 mg 3-26 tablet by [facility] of tablet 00:00: mouth at [place] [address] bedtime. Medical Branch metoprolol 2020-0 Yes [id number] 50mg Take 1 [facility] tartrate 50 3-26 tablet by [facility] of mg tablet 00:00: mouth 2 [place] (two) Medical times Branch daily. amitriptyli 2020-0 Yes [id number] 25mg Take 1 [facility] ne 25 mg 3-26 tablet by [facility] of tablet 00:00: mouth at [place] [address] bedtime. Medical Branch metoprolol 2020-0 Yes [id number] 50mg Take 1 [facility] tartrate 50 3-26 tablet by [facility] of mg tablet 00:00: mouth 2 [place] (two) Medical times Branch daily. amitriptyli 2020-0 Yes [id number] 25mg Take 1 [facility] ne 25 mg 3-26 tablet by [facility] of tablet 00:00: mouth at [place] [address] bedtime. Medical Branch metoprolol 2020-0 Yes [id number] 50mg Take 1 [facility] tartrate 50 3-26 tablet by [facility] of mg tablet 00:00: mouth 2 [place] (two) Medical times Branch daily. amitriptyli 2020-0 Yes [id number] 25mg Take 1 [facility] ne 25 mg 3-26 tablet by [facility] of tablet 00:00: mouth at [place] [address] bedtime. Medical Branch metoprolol 2020-0 Yes [id number] 50mg Take 1 [facility] tartrate 50 3-26 tablet by [facility]y of mg tablet 00:00: mouth 2 [place] (two) Medical times Branch daily. amitriptyli 2020-0 Yes [id number] 25mg Take 1 [facility] ne 25 mg 3-26 tablet by [facility] of tablet 00:00: mouth at [place] [address] bedtime. Medical Branch metoprolol 2020-0 Yes [id number] 50mg Take 1 [facility] tartrate 50 3-26 tablet by [facility]y of mg tablet 00:00: mouth 2 [place] (two) Medical times Branch daily. amitriptyli 2020-0 Yes [id number] 25mg Take 1 [facility] ne 25 mg 3-26 tablet by [facility]y of tablet 00:00: mouth at [place] [address] bedtime. Medical Branch metoprolol 2020-0 Yes [id number] 50mg Take 1 [facility] tartrate 50 3-26 tablet by [facility]y of mg tablet 00:00: mouth 2 [place] 00 (two) Medical times Branch daily. indomethaci 2020-0 Yes [id number] 50mg Take 1 [facility] n 50 mg 2-14 capsule by [facility] of capsule 00:00: mouth 3 [place] 00 (three) Medical times Branch daily with meals. albuterol 2020-0 Yes [id number] 2{puff} Inhale 2 [facility] 90 2-14 Puffs ity of mcg/actuati 00:00: every 6 [place] as on inhaler 00 (six) Medical hours as Branch needed for Wheezing or Shortness of Breath. levETIRAcet 2020-0 Yes [id number] 500mg Take 1 [facility] am (KEPPRA) 2-14 tablet by ity of 500 mg 00:00: mouth 2 [place] tablet 00 (two) Medical times Branch daily. budesonide- 2020-0 Yes [id number] 2{puff} Inhale 2 [facility] formoteroL 2-14 Puffs 2 ity of 160-4.5 00:00: (two) [place] mcg/actuati 00 times Medical on inhaler daily. Branch indomethaci 2020-0 Yes [id number] 50mg Take 1 [facility] n 50 mg 2-14 capsule by ity of capsule 00:00: mouth 3 (three) Medical times Branch daily with meals. albuterol 2020-0 Yes [id number] 2{puff} Inhale 2 [facility] 90 2-14 Puffs ity of mcg/actuati 00:00: every 6 [place] on inhaler 00 (six) Medical hours as Branch needed for Wheezing or Shortness of Breath. levETIRAcet 2020-0 Yes [id number] 500mg Take 1 [facility] am (KEPPRA) 2-14 tablet by ity of 500 mg 00:00: mouth 2 [place] tablet 00 (two) Medical times Branch daily. budesonide- 2020-0 Yes [id number] 2{puff} Inhale 2 [facility] formoteroL 2-14 Puffs 2 ity of 160-4.5 00:00: (two) [place] mcg/actuati 00 times Medical on inhaler daily. Branch indomethaci 2020-0 Yes [id number] 50mg Take 1 [facility] n 50 mg 2-14 capsule by ity of capsule 00:00: mouth 3 [place] 00 (three) Medical times Branch daily with meals. albuterol 2020-0 Yes [id number] 2{puff} Inhale 2 [facility] 90 2-14 Puffs ity of mcg/actuati 00:00: every 6 [place] on inhaler 00 (six) Medical hours as Branch needed for Wheezing or Shortness of Breath. levETIRAcet 2020-0 Yes [id number] 500mg Take 1 [facility] am (KEPPRA) 2-14 tablet by ity of 500 mg 00:00: mouth 2 [place] tablet 00 (two) Medical times Branch daily. budesonide- 2020-0 Yes [id number] 2{puff} Inhale 2 [facility] formoteroL 2-14 Puffs 2 ity of 160-4.5 00:00: (two) [place] mcg/actuati 00 times Medical on inhaler daily. Branch indomethaci 2020-0 Yes [id number] 50mg Take 1 [facility] n 50 mg 2-14 capsule by ity of capsule 00:00: mouth 3 [place] 00 (three) Medical times Branch daily with meals. albuterol 2020-0 Yes [id number] 2{puff} Inhale 2 [facility] 90 2-14 Puffs ity of mcg/actuati 00:00: every 6 [place] on inhaler 00 (six) Medical hours as Branch needed for Wheezing or Shortness of Breath. levETIRAcet 2020-0 Yes [id number] 500mg Take 1 [facility] am (KEPPRA) 2-14 tablet by ity of 500 mg 00:00: mouth 2 [place] tablet 00 (two) Medical times Branch daily. budesonide- 2020-0 Yes [id number] 2{puff} Inhale 2 [facility] formoteroL 2-14 Puffs 2 ity of 160-4.5 00:00: (two) [place] mcg/actuati 00 times Medical on inhaler daily. Branch indomethaci 2020-0 Yes [id number] 50mg Take 1 [facility] n 50 mg 2-14 capsule by ity of capsule 00:00: mouth 3 [place] 00 (three) Medical times Branch daily with meals. albuterol 2020-0 Yes [id number] 2{puff} Inhale 2 [facility] 90 2-14 Puffs ity of mcg/actuati 00:00: every 6 [place] on inhaler 00 (six) Medical hours as Branch needed for Wheezing or Shortness of Breath. levETIRAcet 2020-0 Yes [id number] 500mg Take 1 [facility] am (KEPPRA) 2-14 tablet by ity of 500 mg 00:00: mouth 2 [place] tablet 00 (two) Medical times Branch daily. budesonide- 2020-0 Yes [id number] 2{puff} Inhale 2 [facility] formoteroL 2-14 Puffs 2 ity of 160-4.5 00:00: (two) [place] mcg/actuati 00 times Medical on inhaler daily. Branch indomethaci 2020-0 Yes [id number] 50mg Take 1 [facility] n 50 mg 2-14 capsule by ity of capsule 00:00: mouth 3 [place] 00 (three) Medical times Branch daily with meals. albuterol 2020-0 Yes [id number] 2{puff} Inhale 2 [facility] 90 2-14 Puffs ity of mcg/actuati 00:00: every 6 [place] on inhaler 00 (six) Medical hours as Branch needed for Wheezing or Shortness of Breath. levETIRAcet 2020-0 Yes [id number] 500mg Take 1 [facility] am (KEPPRA) 2-14 tablet by ity of 500 mg 00:00: mouth 2 [place] tablet 00 (two) Medical times Branch daily. budesonide- 2020-0 Yes [id number] 2{puff} Inhale 2 [facility] formoteroL 2-14 Puffs 2 ity of 160-4.5 00:00: (two) [place] mcg/actuati 00 times Medical on inhaler daily. Branch indomethaci 2020-0 Yes [id number] 50mg Take 1 [facility] n 50 mg 2-14 capsule by ity of capsule 00:00: mouth 3 00 (three) Medical times Branch daily with meals. albuterol 2020-0 Yes [id number] 2{puff} Inhale 2 [facility] 90 2-14 Puffs ity of mcg/actuati 00:00: every 6 [place] on inhaler 00 (six) Medical hours as Branch needed for Wheezing or Shortness of Breath. levETIRAcet 2020-0 Yes [id number] 500mg Take 1 [facility] am (KEPPRA) 2-14 tablet by ity of 500 mg 00:00: mouth 2 [place] tablet 00 (two) Medical times Branch daily. budesonide- 2020-0 Yes [id number] 2{puff} Inhale 2 [facility] formoteroL 2-14 Puffs 2 ity of 160-4.5 00:00: (two) [place] mcg/actuati 00 times Medical on inhaler daily. Branch indomethaci 2020-0 Yes [id number] 50mg Take 1 [facility] n 50 mg 2-14 capsule by ity of capsule 00:00: mouth 3 [place] 00 (three) Medical times Branch daily with meals. albuterol 2020-0 Yes [id number] 2{puff} Inhale 2 [facility] 90 2-14 Puffs ity of mcg/actuati 00:00: every 6 [place] on inhaler 00 (six) Medical hours as Branch needed for Wheezing or Shortness of Breath. levETIRAcet 2020-0 Yes [id number] 500mg Take 1 [facility] am (KEPPRA) 2-14 tablet by ity of 500 mg 00:00: mouth 2 [place] tablet 00 (two) Medical times Branch daily. budesonide- 2020-0 Yes [id number] 2{puff} Inhale 2 [facility] formoteroL 2-14 Puffs 2 ity of 160-4.5 00:00: (two) [place] mcg/actuati 00 times Medical on inhaler daily. Branch indomethaci 2020-0 Yes [id number] 50mg Take 1 [facility] n 50 mg 2-14 capsule by ity of capsule 00:00: mouth 3 [place] 00 (three) Medical times Branch daily with meals. albuterol 2020-0 Yes [id number] 2{puff} Inhale 2 [facility] 90 2-14 Puffs ity of mcg/actuati 00:00: every 6 [place] on inhaler 00 (six) Medical hours as Branch needed for Wheezing or Shortness of Breath. levETIRAcet 2020-0 Yes [id number] 500mg Take 1 [facility] am (KEPPRA) 2-14 tablet by ity of 500 mg 00:00: mouth 2 [place] tablet 00 (two) Medical times Branch daily. budesonide- 2020-0 Yes [id number] 2{puff} Inhale 2 [facility] formoteroL 2-14 Puffs 2 ity of 160-4.5 00:00: (two) [place] mcg/actuati 00 times Medical on inhaler daily. Branch indomethaci 2020-0 Yes [id number] 50mg Take 1 [facility] n 50 mg 2-14 capsule by ity of capsule 00:00: mouth 3 [place] 00 (three) Medical times Branch daily with meals. albuterol 2020-0 Yes [id number] 2{puff} Inhale 2 [facility] 90 2-14 Puffs ity of mcg/actuati 00:00: every 6 [place] on inhaler 00 (six) Medical hours as Branch needed for Wheezing or Shortness of Breath. levETIRAcet 2020-0 Yes [id number] 500mg Take 1 [facility] am (KEPPRA) 2-14 tablet by ity of 500 mg 00:00: mouth 2 [place] tablet 00 (two) Medical times Branch daily. budesonide- 2020-0 Yes [id number] 2{puff} Inhale 2 [facility] formoteroL 2-14 Puffs 2 ity of 160-4.5 00:00: (two) [place] mcg/actuati 00 times Medical on inhaler daily. Branch indomethaci 2020-0 Yes [id number] 50mg Take 1 [facility] n 50 mg 2-14 capsule by ity of capsule 00:00: mouth 3 [place] 00 (three) Medical times Branch daily with meals. albuterol 2020-0 Yes [id number] 2{puff} Inhale 2 [facility] 90 2-14 Puffs ity of mcg/actuati 00:00: every 6 [place] on inhaler 00 (six) Medical hours as Branch needed for Wheezing or Shortness of Breath. levETIRAcet 2020-0 Yes [id number] 500mg Take 1 [facility] am (KEPPRA) 2-14 tablet by ity of 500 mg 00:00: mouth 2 [place] tablet 00 (two) Medical times Branch daily. budesonide- 2020-0 Yes [id number] 2{puff} Inhale 2 [facility] formoteroL 2-14 Puffs 2 ity of 160-4.5 00:00: (two) [place] mcg/actuati 00 times Medical on inhaler daily. Branch indomethaci 2020-0 Yes [id number] 50mg Take 1 [facility] n 50 mg 2-14 capsule by ity of capsule 00:00: mouth 3 [place] 00 (three) Medical times Branch daily with meals. albuterol 2020-0 Yes [id number] 2{puff} Inhale 2 [facility] 90 2-14 Puffs ity of mcg/actuati 00:00: every 6 [place] on inhaler 00 (six) Medical hours as Branch needed for Wheezing or Shortness of Breath. levETIRAcet 2020-0 Yes [id number] 500mg Take 1 [facility] am (KEPPRA) 2-14 tablet by ity of 500 mg 00:00: mouth 2 [place] tablet 00 (two) Medical times Branch daily. budesonide- 2020-0 Yes [id number] 2{puff} Inhale 2 [facility] formoteroL 2-14 Puffs 2 ity of 160-4.5 00:00: (two) [place] mcg/actuati 00 times Medical on inhaler daily. Branch indomethaci 2020-0 Yes [id number] 50mg Take 1 [facility] n 50 mg 2-14 capsule by ity of capsule 00:00: mouth 3 [place] 00 (three) Medical times Branch daily with meals. albuterol 2020-0 Yes [id number] 2{puff} Inhale 2 [facility] 90 2-14 Puffs ity of mcg/actuati 00:00: every 6 [place] on inhaler 00 (six) Medical hours as Branch needed for Wheezing or Shortness of Breath. levETIRAcet 2020-0 Yes [id number] 500mg Take 1 [facility] am (KEPPRA) 2-14 tablet by ity of 500 mg 00:00: mouth 2 [place] tablet 00 (two) Medical times Branch daily. budesonide- 2020-0 Yes [id number] 2{puff} Inhale 2 [facility] formoteroL 2-14 Puffs 2 ity of 160-4.5 00:00: (two) [place] mcg/actuati 00 times Medical on inhaler daily. Branch indomethaci 2020-0 Yes [id number] 50mg Take 1 [facility] n 50 mg 2-14 capsule by ity of capsule 00:00: mouth 3 [place] 00 (three) Medical times Branch daily with meals. albuterol 2020-0 Yes [id number] 2{puff} Inhale 2 [facility] 90 2-14 Puffs ity of mcg/actuati 00:00: every 6 [place] as on inhaler 00 (six) Medical hours as Branch needed for Wheezing or Shortness of Breath. levETIRAcet 2020-0 Yes [id number] 500mg Take 1 [facility] am (KEPPRA) 2-14 tablet by ity of 500 mg 00:00: mouth 2 [place] tablet 00 (two) Medical times Branch daily. budesonide- 2020-0 Yes [id number] 2{puff} Inhale 2 [facility] formoteroL 2-14 Puffs 2 ity of 160-4.5 00:00: (two) [place] mcg/actuati 00 times Medical on inhaler daily. Branch indomethaci 2020-0 Yes [id number] 50mg Take 1 [facility] n 50 mg 2-14 capsule by ity of capsule 00:00: mouth 3 [place] 00 (three) Medical times Branch daily with meals. albuterol 2020-0 Yes [id number] 2{puff} Inhale 2 [facility] 90 2-14 Puffs ity of mcg/actuati 00:00: every 6 [place] on inhaler 00 (six) Medical hours as Branch needed for Wheezing or Shortness of Breath. levETIRAcet 2020-0 Yes [id number] 500mg Take 1 [facility] am (KEPPRA) 2-14 tablet by ity of 500 mg 00:00: mouth 2 [place] tablet 00 (two) Medical times Branch daily. budesonide- 2020-0 Yes [id number] 2{puff} Inhale 2 [facility] formoteroL 2-14 Puffs 2 ity of 160-4.5 00:00: (two) [place] mcg/actuati 00 times Medical on inhaler daily. Branch indomethaci 2020-0 Yes [id number] 50mg Take 1 [facility] n 50 mg 2-14 capsule by ity of capsule 00:00: mouth 3 [place] 00 (three) Medical times Branch daily with meals. albuterol 2020-0 Yes [id number] 2{puff} Inhale 2 [facility] 90 2-14 Puffs ity of mcg/actuati 00:00: every 6 [place] as on inhaler 00 (six) Medical hours as Branch needed for Wheezing or Shortness of Breath. levETIRAcet 2020-0 Yes [id number] 500mg Take 1 [facility] am (KEPPRA) 2-14 tablet by ity of 500 mg 00:00: mouth 2 [place] tablet 00 (two) Medical times Branch daily. budesonide- 2020-0 Yes [id number] 2{puff} Inhale 2 [facility] formoteroL 2-14 Puffs 2 ity of 160-4.5 00:00: (two) [place] mcg/actuati 00 times Medical on inhaler daily. Branch indomethaci 2020-0 Yes [id number] 50mg Take 1 [facility] n 50 mg 2-14 capsule by ity of capsule 00:00: mouth 3 [place] 00 (three) Medical times Branch daily with meals. albuterol 2020-0 Yes [id number] 2{puff} Inhale 2 [facility] 90 2-14 Puffs ity of mcg/actuati 00:00: every 6 [place] as on inhaler 00 (six) Medical hours as Branch needed for Wheezing or Shortness of Breath. levETIRAcet 2020-0 Yes [id number] 500mg Take 1 [facility] am (KEPPRA) 2-14 tablet by ity of 500 mg 00:00: mouth 2 [place] tablet 00 (two) Medical times Branch daily. budesonide- 2020-0 Yes [id number] 2{puff} Inhale 2 [facility] formoteroL 2-14 Puffs 2 ity of 160-4.5 00:00: (two) [place] mcg/actuati 00 times Medical on inhaler daily. Branch indomethaci 2020-0 Yes [id number] 50mg Take 1 [facility] n 50 mg 2-14 capsule by ity of capsule 00:00: mouth 3 [place] 00 (three) Medical times Branch daily with meals. albuterol 2020-0 Yes [id number] 2{puff} Inhale 2 [facility] 90 2-14 Puffs ity of mcg/actuati 00:00: every 6 [place] as on inhaler 00 (six) Medical hours as Branch needed for Wheezing or Shortness of Breath. levETIRAcet 2020-0 Yes [id number] 500mg Take 1 [facility] am (KEPPRA) 2-14 tablet by ity of 500 mg 00:00: mouth 2 [place] tablet 00 (two) Medical times Branch daily. budesonide- 2020-0 Yes [id number] 2{puff} Inhale 2 [facility] formoteroL 2-14 Puffs 2 ity of 160-4.5 00:00: (two) [place] mcg/actuati 00 times Medical on inhaler daily. Branch indomethaci 2020-0 Yes [id number] 50mg Take 1 [facility] n 50 mg 2-14 capsule by ity of capsule 00:00: mouth 3 [place] 00 (three) Medical times Branch daily with meals. albuterol 2020-0 Yes [id number] 2{puff} Inhale 2 [facility] 90 2-14 Puffs ity of mcg/actuati 00:00: every 6 [place] as on inhaler 00 (six) Medical hours as Branch needed for Wheezing or Shortness of Breath. levETIRAcet 2020-0 Yes [id number] 500mg Take 1 [facility] am (KEPPRA) 2-14 tablet by ity of 500 mg 00:00: mouth 2 [place] tablet 00 (two) Medical times Branch daily. budesonide- 2020-0 Yes [id number] 2{puff} Inhale 2 [facility] formoteroL 2-14 Puffs 2 ity of 160-4.5 00:00: (two) [place] mcg/actuati 00 times Medical on inhaler daily. Branch indomethaci 2020-0 Yes [id number] 50mg Take 1 [facility] n 50 mg 2-14 capsule by ity of capsule 00:00: mouth 3 [place] 00 (three) Medical times Branch daily with meals. albuterol 2020-0 Yes [id number] 2{puff} Inhale 2 [facility] 90 2-14 Puffs ity of mcg/actuati 00:00: every 6 [place] as on inhaler 00 (six) Medical hours as Branch needed for Wheezing or Shortness of Breath. levETIRAcet 2020-0 Yes [id number] 500mg Take 1 [facility] am (KEPPRA) 2-14 tablet by ity of 500 mg 00:00: mouth 2 [place] tablet 00 (two) Medical times Branch daily. budesonide- 2020-0 Yes [id number] 2{puff} Inhale 2 [facility] formoteroL 2-14 Puffs 2 ity of 160-4.5 00:00: (two) [place] mcg/actuati 00 times Medical on inhaler daily. Branch indomethaci 2020-0 Yes [id number] 50mg Take 1 [facility] n 50 mg 2-14 capsule by ity of capsule 00:00: mouth 3 [place] 00 (three) Medical times Branch daily with meals. albuterol 2020-0 Yes [id number] 2{puff} Inhale 2 [facility] 90 2-14 Puffs ity of mcg/actuati 00:00: every 6 [place] as on inhaler 00 (six) Medical hours as Branch needed for Wheezing or Shortness of Breath. levETIRAcet 2020-0 Yes [id number] 500mg Take 1 [facility] am (KEPPRA) 2-14 tablet by ity of 500 mg 00:00: mouth 2 [place] tablet 00 (two) Medical times Branch daily. budesonide- 2020-0 Yes [id number] 2{puff} Inhale 2 [facility] formoteroL 2-14 Puffs 2 ity of 160-4.5 00:00: (two) [place] mcg/actuati 00 times Medical on inhaler daily. Branch indomethaci 2020-0 Yes [id number] 50mg Take 1 [facility] n 50 mg 2-14 capsule by ity of capsule 00:00: mouth 3 [place] 00 (three) Medical times Branch daily with meals. albuterol 2020-0 Yes [id number] 2{puff} Inhale 2 [facility] 90 2-14 Puffs ity of mcg/actuati 00:00: every 6 [place] as on inhaler 00 (six) Medical hours as Branch needed for Wheezing or Shortness of Breath. levETIRAcet 2020-0 Yes [id number] 500mg Take 1 [facility] am (KEPPRA) 2-14 tablet by ity of 500 mg 00:00: mouth 2 [place] tablet 00 (two) Medical times Branch daily. budesonide- 2020-0 Yes [id number] 2{puff} Inhale 2 [facility] formoteroL 2-14 Puffs 2 ity of 160-4.5 00:00: (two) [place] mcg/actuati 00 times Medical on inhaler daily. Branch indomethaci 2020-0 Yes [id number] 50mg Take 1 [facility] n 50 mg 2-14 capsule by ity of capsule 00:00: mouth 3 [place] 00 (three) Medical times Branch daily with meals. albuterol 2020-0 Yes [id number] 2{puff} Inhale 2 [facility] 90 2-14 Puffs ity of mcg/actuati 00:00: every 6 [place] as on inhaler 00 (six) Medical hours as Branch needed for Wheezing or Shortness of Breath. levETIRAcet 2020-0 Yes [id number] 500mg Take 1 [facility] am (KEPPRA) 2-14 tablet by ity of 500 mg 00:00: mouth 2 [place] tablet 00 (two) Medical times Branch daily. budesonide- 2020-0 Yes [id number] 2{puff} Inhale 2 [facility] formoteroL 2-14 Puffs 2 ity of 160-4.5 00:00: (two) [place] mcg/actuati 00 times Medical on inhaler daily. Branch indomethaci 2020-0 Yes [id number] 50mg Take 1 [facility] n 50 mg 2-14 capsule by ity of capsule 00:00: mouth 3 [place] 00 (three) Medical times Branch daily with meals. albuterol 2020-0 Yes [id number] 2{puff} Inhale 2 [facility] 90 2-14 Puffs ity of mcg/actuati 00:00: every 6 [place] as on inhaler 00 (six) Medical hours as Branch needed for Wheezing or Shortness of Breath. levETIRAcet 2020-0 Yes [id number] 500mg Take 1 [facility] am (KEPPRA) 2-14 tablet by ity of 500 mg 00:00: mouth 2 [place] tablet 00 (two) Medical times Branch daily. budesonide- 2020-0 Yes [id number] 2{puff} Inhale 2 [facility] formoteroL 2-14 Puffs 2 ity of 160-4.5 00:00: (two) [place] mcg/actuati 00 times Medical on inhaler daily. Branch indomethaci 2020-0 Yes [id number] 50mg Take 1 [facility] n 50 mg 2-14 capsule by ity of capsule 00:00: mouth 3 [place] 00 (three) Medical times Branch daily with meals. albuterol 2020-0 Yes [id number] 2{puff} Inhale 2 [facility] 90 2-14 Puffs ity of mcg/actuati 00:00: every 6 [place] as on inhaler 00 (six) Medical hours as Branch needed for Wheezing or Shortness of Breath. levETIRAcet 2020-0 Yes [id number] 500mg Take 1 [facility] am (KEPPRA) 2-14 tablet by ity of 500 mg 00:00: mouth 2 [place] tablet 00 (two) Medical times Branch daily. budesonide- 2020-0 Yes [id number] 2{puff} Inhale 2 [facility] formoteroL 2-14 Puffs 2 ity of 160-4.5 00:00: (two) [place] mcg/actuati 00 times Medical on inhaler daily. Branch indomethaci 2020-0 Yes [id number] 50mg Take 1 [facility] n 50 mg 2-14 capsule by ity of capsule 00:00: mouth 3 [place] 00 (three) Medical times Branch daily with meals. albuterol 2020-0 Yes [id number] 2{puff} Inhale 2 [facility] 90 2-14 Puffs ity of mcg/actuati 00:00: every 6 [place] as on inhaler 00 (six) Medical hours as Branch needed for Wheezing or Shortness of Breath. levETIRAcet 2020-0 Yes [id number] 500mg Take 1 [facility] am (KEPPRA) 2-14 tablet by ity of 500 mg 00:00: mouth 2 [place] tablet 00 (two) Medical times Branch daily. budesonide- 2020-0 Yes [id number] 2{puff} Inhale 2 [facility] formoteroL 2-14 Puffs 2 ity of 160-4.5 00:00: (two) [place] mcg/actuati 00 times Medical on inhaler daily. Branch indomethaci 2020-0 Yes [id number] 50mg Take 1 [facility] n 50 mg 2-14 capsule by ity of capsule 00:00: mouth 3 [place] 00 (three) Medical times Branch daily with meals. albuterol 2020-0 Yes [id number] 2{puff} Inhale 2 [facility] 90 2-14 Puffs ity of mcg/actuati 00:00: every 6 [place] as on inhaler 00 (six) Medical hours as Branch needed for Wheezing or Shortness of Breath. levETIRAcet 2020-0 Yes [id number] 500mg Take 1 [facility] am (KEPPRA) 2-14 tablet by ity of 500 mg 00:00: mouth 2 [place] tablet 00 (two) Medical times Branch daily. budesonide- 2020-0 Yes [id number] 2{puff} Inhale 2 [facility] formoteroL 2-14 Puffs 2 ity of 160-4.5 00:00: (two) [place] mcg/actuati 00 times Medical on inhaler daily. Branch indomethaci 2020-0 Yes [id number] 50mg Take 1 [facility] n 50 mg 2-14 capsule by ity of capsule 00:00: mouth 3 (three) Medical times Branch daily with meals. albuterol 2020-0 Yes [id number] 2{puff} Inhale 2 [facility] 90 2-14 Puffs ity of mcg/actuati 00:00: every 6 [place] as on inhaler 00 (six) Medical hours as Branch needed for Wheezing or Shortness of Breath. levETIRAcet 2020-0 Yes [id number] 500mg Take 1 [facility] am (KEPPRA) 2-14 tablet by ity of 500 mg 00:00: mouth 2 [place] tablet 00 (two) Medical times Branch daily. budesonide- 2020-0 Yes [id number] 2{puff} Inhale 2 [facility] formoteroL 2-14 Puffs 2 ity of 160-4.5 00:00: (two) [place] mcg/actuati 00 times Medical on inhaler daily. Branch indomethaci 2020-0 Yes [id number] 50mg Take 1 [facility] n 50 mg 2-14 capsule by ity of capsule 00:00: mouth 3 [place] 00 (three) Medical times Branch daily with meals. albuterol 2020-0 Yes [id number] 2{puff} Inhale 2 [facility] 90 2-14 Puffs ity of mcg/actuati 00:00: every 6 [place] as on inhaler 00 (six) Medical hours as Branch needed for Wheezing or Shortness of Breath. levETIRAcet 2020-0 Yes [id number] 500mg Take 1 [facility] am (KEPPRA) 2-14 tablet by ity of 500 mg 00:00: mouth 2 [place] tablet 00 (two) Medical times Branch daily. budesonide- 2020-0 Yes [id number] 2{puff} Inhale 2 [facility] formoteroL 2-14 Puffs 2 ity of 160-4.5 00:00: (two) [place] mcg/actuati 00 times Medical on inhaler daily. Branch indomethaci 2020-0 Yes [id number] 50mg Take 1 [facility] n 50 mg 2-14 capsule by ity of capsule 00:00: mouth 3 00 (three) Medical times Branch daily with meals. albuterol 2020-0 Yes [id number] 2{puff} Inhale 2 [facility] 90 2-14 Puffs ity of mcg/actuati 00:00: every 6 [place] as on inhaler 00 (six) Medical hours as Branch needed for Wheezing or Shortness of Breath. levETIRAcet 2020-0 Yes [id number] 500mg Take 1 [facility] am (KEPPRA) 2-14 tablet by ity of 500 mg 00:00: mouth 2 [place] tablet 00 (two) Medical times Branch daily. budesonide- 2020-0 Yes [id number] 2{puff} Inhale 2 [facility] formoteroL 2-14 Puffs 2 ity of 160-4.5 00:00: (two) [place] mcg/actuati 00 times Medical on inhaler daily. Branch indomethaci 2020-0 Yes [id number] 50mg Take 1 [facility] n 50 mg 2-14 capsule by ity of capsule 00:00: mouth 3 [place] 00 (three) Medical times Branch daily with meals. albuterol 2020-0 Yes [id number] 2{puff} Inhale 2 [facility] 90 2-14 Puffs ity of mcg/actuati 00:00: every 6 [place] as on inhaler 00 (six) Medical hours as Branch needed for Wheezing or Shortness of Breath. levETIRAcet 2020-0 Yes [id number] 500mg Take 1 [facility] am (KEPPRA) 2-14 tablet by ity of 500 mg 00:00: mouth 2 [place] tablet 00 (two) Medical times Branch daily. budesonide- 2020-0 Yes [id number] 2{puff} Inhale 2 [facility] formoteroL 2-14 Puffs 2 ity of 160-4.5 00:00: (two) [place] mcg/actuati 00 times Medical on inhaler daily. Branch indomethaci 2020-0 Yes [id number] 50mg Take 1 [facility] n 50 mg 2-14 capsule by ity of capsule 00:00: mouth 3 [place] 00 (three) Medical times Branch daily with meals. albuterol 2020-0 Yes [id number] 2{puff} Inhale 2 [facility] 90 2-14 Puffs ity of mcg/actuati 00:00: every 6 [place] as on inhaler 00 (six) Medical hours as Branch needed for Wheezing or Shortness of Breath. levETIRAcet 2020-0 Yes [id number] 500mg Take 1 [facility] am (KEPPRA) 2-14 tablet by ity of 500 mg 00:00: mouth 2 [place] tablet 00 (two) Medical times Branch daily. budesonide- 2020-0 Yes [id number] 2{puff} Inhale 2 [facility] formoteroL 2-14 Puffs 2 ity of 160-4.5 00:00: (two) [place] mcg/actuati 00 times Medical on inhaler daily. Branch indomethaci 2020-0 Yes [id number] 50mg Take 1 Univers n 50 mg 2-14 capsule by ity of capsule 00:00: mouth 3 [place] 00 (three) Medical times Branch daily with meals. albuterol 2020-0 Yes [id number] 2{puff} Inhale 2 Univers 90 2-14 Puffs ity of mcg/actuati 00:00: every 6 [place] as on inhaler 00 (six) Medical hours as Branch needed for Wheezing or Shortness of Breath. levETIRAcet 2020-0 Yes [id number] 500mg Take 1 Univers am (KEPPRA) 2-14 tablet by ity of 500 mg 00:00: mouth 2 [place] tablet 00 (two) Medical times Branch daily. budesonide- 2020-0 Yes [id number] 2{puff} Inhale 2 Univers formoteroL 2-14 Puffs 2 ity of 160-4.5 00:00: (two) [place] mcg/actuati 00 times Medical on inhaler daily. Branch indomethaci 2020-0 Yes [id number] 50mg Take 1 Univers n 50 mg 2-14 capsule by ity of capsule 00:00: mouth 3 [place] 00 (three) Medical times Branch daily with meals. albuterol 2020-0 Yes [id number] 2{puff} Inhale 2 Univers 90 2-14 Puffs ity of mcg/actuati 00:00: every 6 [place] as on inhaler 00 (six) Medical hours as Branch needed for Wheezing or Shortness of Breath. levETIRAcet 2020-0 Yes [id number] 500mg Take 1 Univers am (KEPPRA) 2-14 tablet by ity of 500 mg 00:00: mouth 2 [place] tablet 00 (two) Medical times Branch daily. budesonide- 2020-0 Yes [id number] 2{puff} Inhale 2 Univers formoteroL 2-14 Puffs 2 ity of 160-4.5 00:00: (two) [place] mcg/actuati 00 times Medical on inhaler daily. Branch indomethaci 2020-0 Yes [id number] 50mg Take 1 Univers n 50 mg 2-14 capsule by ity of capsule 00:00: mouth 3 00 (three) Medical times Branch daily with meals. albuterol 2020-0 Yes [id number] 2{puff} Inhale 2 Univers 90 2-14 Puffs ity of mcg/actuati 00:00: every 6 [place] as on inhaler 00 (six) Medical hours as Branch needed for Wheezing or Shortness of Breath. levETIRAcet 2020-0 Yes [id number] 500mg Take 1 Univers am (KEPPRA) 2-14 tablet by ity of 500 mg 00:00: mouth 2 [place] tablet 00 (two) Medical times Branch daily. budesonide- 2020-0 Yes [id number] 2{puff} Inhale 2 Univers formoteroL 2-14 Puffs 2 ity of 160-4.5 00:00: (two) [place] mcg/actuati 00 times Medical on inhaler daily. Branch indomethaci 2020-0 Yes [id number] 50mg Take 1 Univers n 50 mg 2-14 capsule by ity of capsule 00:00: mouth 3 [place] 00 (three) Medical times Branch daily with meals. albuterol 2020-0 Yes [id number] 2{puff} Inhale 2 Univers 90 2-14 Puffs ity of mcg/actuati 00:00: every 6 [place] as on inhaler 00 (six) Medical hours as Branch needed for Wheezing or Shortness of Breath. levETIRAcet 2020-0 Yes [id number] 500mg Take 1 Univers am (KEPPRA) 2-14 tablet by ity of 500 mg 00:00: mouth 2 [place] tablet 00 (two) Medical times Branch daily. budesonide- 2020-0 Yes [id number] 2{puff} Inhale 2 Univers formoteroL 2-14 Puffs 2 ity of 160-4.5 00:00: (two) [place] mcg/actuati 00 times Medical on inhaler daily. Branch indomethaci 2020-0 Yes [id number] 50mg Take 1 Univers n 50 mg 2-14 capsule by ity of capsule 00:00: mouth 3 [place] 00 (three) Medical times Branch daily with meals. albuterol 2020-0 Yes [id number] 2{puff} Inhale 2 Univers 90 2-14 Puffs ity of mcg/actuati 00:00: every 6 [place] as on inhaler 00 (six) Medical hours as Branch needed for Wheezing or Shortness of Breath. levETIRAcet 2020-0 Yes [id number] 500mg Take 1 Univers am (KEPPRA) 2-14 tablet by ity of 500 mg 00:00: mouth 2 [place] tablet 00 (two) Medical times Branch daily. budesonide- 2020-0 Yes [id number] 2{puff} Inhale 2 Univers formoteroL 2-14 Puffs 2 ity of 160-4.5 00:00: (two) [place] mcg/actuati 00 times Medical on inhaler daily. Branch topiramate 2020-0 Yes Univers 25 mg 1-28 ity of tablet 00:00: [place] 00 Medical Branch topiramate 2020-0 Yes Univers 25 mg 1-28 ity of tablet 00:00: [place] 00 Medical Branch topiramate 2020-0 Yes Univers 25 mg 1-28 ity of tablet 00:00: [place] 00 Medical Branch topiramate 2020-0 Yes Univers 25 mg 1-28 ity of tablet 00:00: [place] [address] Medical Branch topiramate 2020-0 Yes Univers 25 mg 1-28 ity of tablet 00:00: [place] [address] Medical Branch topiramate 2020-0 Yes Univers 25 mg 1-28 ity of tablet 00:00: [address] topiramate 2020-0 Yes Univers 25 mg 1-28 ity of tablet 00:00: [place] [address] [facility] [place] topiramate 2020-0 Yes Univers 25 mg 1-28 ity of tablet 00:00: [place] [address] Medical Branch topiramate 2020-0 Yes Univers 25 mg 1-28 ity of tablet 00:00: [place] [address] Medical Branch topiramate 2020-0 Yes Univers 25 mg 1-28 ity of tablet 00:00: [address] Branch topiramate 2020-0 Yes Univers 25 mg 1-28 ity of tablet 00:00: [address] topiramate 2020-0 Yes Univers 25 mg 1-28 ity of tablet 00:00: [address] topiramate 2020-0 Yes Univers 25 mg 1-28 ity of tablet 00:00: [address] topiramate 2020-0 Yes Univers 25 mg 1-28 ity of tablet 00:00: [address] topiramate 2020-0 Yes Univers 25 mg 1-28 ity of tablet 00:00: [address] topiramate 2020-0 Yes Univers 25 mg 1-28 ity of tablet 00:00: [address] topiramate 2020-0 Yes Univers 25 mg 1-28 ity of tablet 00:00: [place] [address] [facility] [place] topiramate 2020-0 Yes Univers 25 mg 1-28 ity of tablet 00:00: [place] [address] Medical Branch topiramate 2020-0 Yes Univers 25 mg 1-28 ity of tablet 00:00: [address] topiramate 2020-0 Yes Univers 25 mg 1-28 ity of tablet 00:00: [address] Branch topiramate 2020-0 Yes Univers 25 mg 1-28 ity of tablet 00:00: [address] Branch topiramate 2020-0 Yes Univers 25 mg 1-28 ity of tablet 00:00: [place] [address] [facility] [place] topiramate 2020-0 Yes Univers 25 mg 1-28 ity of tablet 00:00: [place] 00 Medical Branch topiramate 2020-0 Yes Univers 25 mg 1-28 ity of tablet 00:00: [place] [address] Medical Branch topiramate 2020-0 Yes Univers 25 mg 1-28 ity of tablet 00:00: [place] [address] Medical Branch topiramate 2020-0 Yes Univers 25 mg 1-28 ity of tablet 00:00: [place] [address] Medical Branch topiramate 2020-0 Yes Univers 25 mg 1-28 ity of tablet 00:00: [place] [address] Medical Branch topiramate 2020-0 Yes Univers 25 mg 1-28 ity of tablet 00:00: [place] [address] Medical Branch topiramate 2020-0 Yes Univers 25 mg 1-28 ity of tablet 00:00: [place] [address] Medical Branch topiramate 2020-0 Yes Univers 25 mg 1-28 ity of tablet 00:00: [place] [address] Medical Branch topiramate 2020-0 Yes Univers 25 mg 1-28 ity of tablet 00:00: [place] [address] Medical Branch topiramate 2020-0 Yes Univers 25 mg 1-28 ity of tablet 00:00: [place] [address] Medical Branch topiramate 2020-0 Yes Univers 25 mg 1-28 ity of tablet 00:00: [place] [address] Medical Branch topiramate 2020-0 Yes Univers 25 mg 1-28 ity of tablet 00:00: [place] [address] Medical Branch topiramate 2020-0 Yes Univers 25 mg 1-28 ity of tablet 00:00: [place] [address] Medical Branch topiramate 2020-0 Yes Univers 25 mg 1-28 ity of tablet 00:00: [place] [address] Medical Branch topiramate 2020-0 Yes Univers 25 mg 1-28 ity of tablet 00:00: [place] [address] Medical Branch carBAMazepi 2020-0 Yes Univer s ne 200 mg 1-20 ity of tablet 00:00: [place] [address] Medical Branch carBAMazepi 2020-0 Yes Univer s ne 200 mg 1-20 ity of tablet 00:00: [place] [address] Medical Branch carBAMazepi 2020-0 Yes Univer s ne 200 mg 1-20 ity of tablet 00:00: [place] [address] Medical Branch carBAMazepi 2020-0 Yes Univer s ne 200 mg 1-20 ity of tablet 00:00: [place] [address] Medical Branch carBAMazepi 2020-0 Yes Univer s ne 200 mg 1-20 ity of tablet 00:00: [place] [address] Medical Branch carBAMazepi 2020-0 Yes Univer s ne 200 mg 1-20 ity of tablet 00:00: [place] 00 Medical Branch carBAMazepi 2020-0 Yes Univer s ne 200 mg 1-20 ity of tablet 00:00: [place] 00 Medical Branch carBAMazepi 2020-0 Yes Univer s ne 200 mg 1-20 ity of tablet 00:00: [place] 00 Medical Branch carBAMazepi 2020-0 Yes Univer s ne 200 mg 1-20 ity of tablet 00:00: [place] 00 Medical Branch carBAMazepi 2020-0 Yes Univer s ne 200 mg 1-20 ity of tablet 00:00: [place] 00 Medical Branch carBAMazepi 2020-0 Yes Univer s ne 200 mg 1-20 ity of tablet 00:00: [place] [address] Medical Branch carBAMazepi 2020-0 Yes Univer s ne 200 mg 1-20 ity of tablet 00:00: [place] [address] Medical Branch carBAMazepi 2020-0 Yes Univer s ne 200 mg 1-20 ity of tablet 00:00: [place] [address] Medical Branch carBAMazepi 2020-0 Yes Univer s ne 200 mg 1-20 ity of tablet 00:00: [place] [address] Medical Branch carBAMazepi 2020-0 Yes Univer s ne 200 mg 1-20 ity of tablet 00:00: [place] [address] Medical Branch carBAMazepi 2020-0 Yes Univer s ne 200 mg 1-20 ity of tablet 00:00: [place] [address] Medical Branch carBAMazepi 2020-0 Yes Univer s ne 200 mg 1-20 ity of tablet 00:00: [place] [address] Medical Branch carBAMazepi 2020-0 Yes Univer s ne 200 mg 1-20 ity of tablet 00:00: [place] 00 Medical Branch carBAMazepi 2020-0 Yes Univer s ne 200 mg 1-20 ity of tablet 00:00: [place] [address] Medical Branch carBAMazepi 2020-0 Yes Univer s ne 200 mg 1-20 ity of tablet 00:00: [place] [address] Medical Branch carBAMazepi 2020-0 Yes Univer s ne 200 mg 1-20 ity of tablet 00:00: [place] [address] Medical Branch carBAMazepi 2020-0 Yes Univer s ne 200 mg 1-20 ity of tablet 00:00: [place] [address] Medical Branch carBAMazepi 2020-0 Yes Univer s ne 200 mg 1-20 ity of tablet 00:00: [place] [address] Medical Branch carBAMazepi 2020-0 Yes Univer s ne 200 mg 1-20 ity of tablet 00:00: [place] [facility] Branch carBAMazepi 2020-0 Yes Univer s ne 200 mg 1-20 ity of tablet 00:00: [place] [facility] [place] carBAMazepi 2020-0 Yes Univer s ne 200 mg 1-20 ity of tablet 00:00: [address] carBAMazepi 2020-0 Yes Univer s ne 200 mg 1-20 ity of tablet 00:00: [place] [facility] carBAMazepi 2020-0 Yes Univer s ne 200 mg 1-20 ity of tablet 00:00: [address] carBAMazepi 2020-0 Yes Univer s ne 200 mg 1-20 ity of tablet 00:00: [address] carBAMazepi 2020-0 Yes Univer s ne 200 mg 1-20 ity of tablet 00:00: [address] carBAMazepi 2020-0 Yes Univer s ne 200 mg 1-20 ity of tablet 00:00: [address] carBAMazepi 2020-0 Yes Univer s ne 200 mg 1-20 ity of tablet 00:00: [address] carBAMazepi 2020-0 Yes Univer s ne 200 mg 1-20 ity of tablet 00:00: [address] carBAMazepi 2020-0 Yes Univer s ne 200 mg 1-20 ity of tablet 00:00: [address] carBAMazepi 2020-0 Yes Univer s ne 200 mg 1-20 ity of tablet 00:00: [address] carBAMazepi 2020-0 Yes Univer s ne 200 mg 1-20 ity of tablet 00:00: [address] carBAMazepi 2020-0 Yes Univer s ne 200 mg 1-20 ity of tablet 00:00: [address] [place] [...] Comments Source Immunization Name Immunization Name SARS-COV-2 COVID-19 2022-04-12 Completed Unive rsity of VACCINE - (MODERNA) 00:00:00 [facility] SARS-COV-2 COVID-19 2022-04-12 Completed Unive rsity of VACCINE - (MODERNA) 00:00:00 [facility] SARS-COV-2 COVID-19 2022-04-12 Completed Unive rsity of VACCINE - (MODERNA) 00:00:00 [facility] SARS-COV-2 COVID-19 2022-04-12 Completed Unive rsity of VACCINE - (MODERNA) 00:00:00 [facility] SARS-COV-2 COVID-19 2022-04-12 Completed Unive rsity of VACCINE - (MODERNA) 00:00:00 [facility] SARS-COV-2 COVID-19 2022-04-12 Completed Unive rsity of VACCINE - (MODERNA) 00:00:00 [facility] SARS-COV-2 COVID-19 2022-04-12 Completed Unive rsity of VACCINE - (MODERNA) 00:00:00 [facility] SARS-COV-2 COVID-19 2022-04-12 Completed Unive rsity of VACCINE - (MODERNA) 00:00:00 [facility] SARS-COV-2 COVID-19 2022-04-12 Completed Unive rsity of VACCINE - (MODERNA) 00:00:00 [facility] SARS-COV-2 COVID-19 2022-04-12 Completed Unive rsity of VACCINE - (MODERNA) 00:00:00 [facility] SARS-COV-2 COVID-19 2022-04-12 Completed Unive rsity of VACCINE - (MODERNA) 00:00:00 [facility] SARS-COV-2 COVID-19 2022-04-12 Completed Unive rsity of VACCINE - (MODERNA) 00:00:00 [place] [facility] SARS-COV-2 COVID-19 2022-04-12 Completed Unive rsity of VACCINE - (MODERNA) 00:00:00 [place] [facility] SARS-COV-2 COVID-19 2022-04-12 Completed Unive rsity of VACCINE - (MODERNA) 00:00:00 [facility] Branch SARS-COV-2 COVID-19 2022-04-12 Completed Unive rsity of VACCINE - (MODERNA) 00:00:00 [facility] Branch SARS-COV-2 COVID-19 2022-04-12 Completed Unive rsity of VACCINE - (MODERNA) 00:00:00 [facility] Branch SARS-COV-2 COVID-19 2022-04-12 Completed Unive rsity of VACCINE - (MODERNA) 00:00:00 [facility] Branch SARS-COV-2 COVID-19 2021-10-12 Completed Unive rsity of MODERNA 12+ YRS 00:00:00 [place] Med ical VACCINE Branch SARS-COV-2 COVID-19 2021-10-12 [...] Unive rsity of MODERNA VACCINE 00:00:00 [place] [facility] ical Branch SARS-COV-2 COVID-19 2021-10-12 Completed Unive [...] Unive rsity of MODERNA 12+ YRS 00:00:00 [facility] VACCINE Branch Influenza Virus 2018-12-16 Completed Universit y of Vaccine Quad IM 3+ 00:00:00 [facility] Influenza Virus 2018-12-16 Completed Universit y of Vaccine Quad IM 3+ 00:00:00 [facility] Influenza Virus 2018-12-16 Completed Universit y of Vaccine Quad IM 3+ 00:00:00 [facility] Influenza Virus 2018-12-16 Completed Universit y of Vaccine Quad IM 3+ 00:00:00 [facility] Influenza Virus 2018-12-16 Completed Universit y of Vaccine Quad IM 3+ 00:00:00 [facility] Influenza Virus 2018-12-16 Completed Universit y of Vaccine Quad IM 3+ 00:00:00 [facility] Influenza Virus 2018-12-16 Completed Universit y of Vaccine Quad IM 3+ 00:00:00 [facility] Influenza Virus 2018-12-16 Completed Universit y of Vaccine Quad IM 3+ 00:00:00 [facility] Influenza Virus 2018-12-16 Completed Universit y of Vaccine Quad IM 3+ 00:00:00 [facility] Influenza Virus 2018-12-16 Completed Universit y of Vaccine Quad IM 3+ 00:00:00 [facility] Influenza Virus 2018-12-16 Completed Universit y of Vaccine Quad IM 3+ 00:00:00 [facility] Influenza Virus 2018-12-16 Completed Universit y of Vaccine Quad IM 3+ 00:00:00 [facility] Influenza Virus 2018-12-16 Completed Universit y of Vaccine Quad IM 3+ 00:00:00 [facility] Influenza Virus 2018-12-16 Completed Universit y of Vaccine Quad IM 3+ 00:00:00 [facility] Influenza Virus 2018-12-16 Completed Universit y of Vaccine Quad IM 3+ 00:00:00 [facility] Influenza Virus 2018-12-16 Completed Universit y of Vaccine Quad IM 3+ 00:00:00 [facility] Influenza Virus 2018-12-16 Completed Universit y of Vaccine Quad IM 3+ 00:00:00 [facility] Influenza Virus 2018-12-16 Completed Universit y of Vaccine Quad IM 3+ 00:00:00 [facility] Influenza Virus 2018-12-16 Completed Universit y of Vaccine Quad IM 3+ 00:00:00 [facility] Influenza Virus 2018-12-16 Completed Universit y of Vaccine Quad IM 3+ 00:00:00 [facility] Influenza Virus 2018-12-16 Completed Universit y of Vaccine Quad IM 3+ 00:00:00 [facility] Influenza Virus 2018-12-16 Completed Universit y of Vaccine Quad IM 3+ 00:00:00 [facility] Influenza Virus 2018-12-16 Completed Universit y of Vaccine Quad IM 3+ 00:00:00 [facility] Influenza Virus 2018-12-16 Completed Universit y of Vaccine Quad IM 3+ 00:00:00 [facility] Influenza Virus 2018-12-16 Completed Universit y of Vaccine Quad IM 3+ 00:00:00 [facility] Influenza Virus 2018-12-16 Completed Universit y of Vaccine Quad IM 3+ 00:00:00 [facility] Influenza Virus 2018-12-16 Completed Universit y of Vaccine Quad IM 3+ 00:00:00 [facility] Influenza Virus 2018-12-16 Completed Universit y of Vaccine Quad IM 3+ 00:00:00 [facility] Influenza Virus 2018-12-16 Completed Universit y of Vaccine Quad IM 3+ 00:00:00 [facility] Influenza Virus 2018-12-16 Completed Universit y of Vaccine Quad IM 3+ 00:00:00 [facility] Influenza Virus 2018-12-16 Completed Universit y of Vaccine Quad IM 3+ 00:00:00 [facility] Influenza Virus 2018-12-16 Completed Universit y of Vaccine Quad IM 3+ 00:00:00 [facility] Influenza Virus Unknown Completed Universit y of Vaccine Quad IM 3+ [facility] SARS-COV-2 COVID-19 Unknown Completed Unive rsity of MODERNA 12+ YRS [place] Med ical VACCINE Branch SARS-COV-2 COVID-19 Unknown Completed Unive rsity of MODERNA 12+ YRS [place] Med ical VACCINE Branch SARS-COV-2 COVID-19 Unknown Completed Unive rsity of VACCINE - (MODERNA) [facility] Influenza Virus Unknown Completed Universit y of Vaccine Quad IM 3+ [facility] SARS-COV-2 COVID-19 Unknown Completed Unive rsity of MODERNA 12+ YRS [place] Med ical VACCINE Branch SARS-COV-2 COVID-19 Unknown Completed Unive rsity of MODERNA 12+ YRS [place] Med ical VACCINE Branch SARS-COV-2 COVID-19 Unknown Completed Unive rsity of VACCINE - (MODERNA) [place] [facility] Influenza Virus Unknown Completed Universit y of Vaccine Quad IM 3+ [place] [facility] YRS Branch SARS-COV-2 COVID-19 Unknown Completed Unive rsity of MODERNA 12+ YRS [place] [facility] ical VACCINE Branch SARS-COV-2 COVID-19 Unknown Completed Unive rsity of MODERNA 12+ YRS [place] [facility] ical VACCINE Branch SARS-COV-2 COVID-19 Unknown Completed Unive rsity of VACCINE - (MODERNA) [place] [facility] Influenza Virus Unknown Completed Universit y of Vaccine Quad IM 3+ [place] [facility] YRS Branch Influenza Virus Unknown Completed Universit y of Vaccine Quad IM 3+ [place] [facility] YRS [facility] SARS-COV-2 COVID-19 Unknown Completed Unive rsity of MODERNA 12+ YRS [place] [facility] ical VACCINE Branch SARS-COV-2 COVID-19 Unknown Completed Unive rsity of MODERNA 12+ YRS [place] Med ical VACCINE Branch SARS-COV-2 COVID-19 Unknown Completed Unive rsity of VACCINE - (MODERNA) [place] [facility] Vital Signs Vital Name Observation Time Observation Value Comments Source Systolic blood 2023-07-24 19:42:00 108 mm[Hg] Univer sity of pressure [facility] Diastolic blood 2023-07-24 19:42:00 77 mm[Hg] Unive rsity of pressure [facility] Heart rate 2023-07-24 19:42:00 89 [facility] Respiratory rate 2023-07-24 19:42:00 18 /min [facility] Body height 2023-07-24 19:42:00 162.6 cm [facility] Body weight 2023-07-24 19:42:00 102.967 kg [facility] BMI 2023-07-24 19:42:00 38.96 kg/m2 Univers ty [facility] Systolic blood 2022-12-29 14:32:00 116 mm[Hg] Univer sity of pressure [facility] Diastolic blood 2022-12-29 14:32:00 80 mm[Hg] Unive rsity of pressure [facility] Heart rate 2022-12-29 14:32:00 82 /min Universi ty [facility] [place] [facility] Body temperature 2022-12-29 14:32:00 36.72 Sury Univ ersity of [place] [facility] Respiratory rate 2022-12-29 14:32:00 18 /min Univ ersity of [place] [facility] Body height 2022-12-29 14:32:00 162.6 cm Universi ty of [place] [facility] Body weight 2022-12-29 14:32:00 109.226 kg Universi ty of [place] [facility] BMI 2022-12-29 14:32:00 41.33 kg/m2 Universi ty of [place] [facility] Systolic blood 2022-11-15 22:35:00 115 mm[Hg] Univer sity of pressure [place] [facility] Diastolic blood 2022-11-15 22:35:00 77 mm[Hg] Unive rsity of pressure [place] [facility] Heart rate 2022-11-15 22:35:00 74 /min Universi ty of [place] [facility] Body temperature 2022-11-15 22:35:00 36.67 [facility] Univ ersity of [place] [facility] Respiratory rate 2022-11-15 22:35:00 18 /min Univ ersity of [place] [facility] Body height 2022-11-15 22:35:00 162.6 cm Universi ty of [place] [facility] Body weight 2022-11-15 22:35:00 111.041 kg Universi ty of [place] [facility] BMI 2022-11-15 22:35:00 42.02 kg/m2 Universi ty of [place] [facility] Systolic blood 2022-10-31 21:55:00 120 mm[Hg] Univer sity of pressure [place] [facility] Diastolic blood 2022-10-31 21:55:00 82 mm[Hg] Unive rsity of pressure [place] [facility] Heart rate 2022-10-31 21:55:00 90 /min Universi ty of [place] [facility] Respiratory rate 2022-10-31 21:55:00 18 /min Univ ersity of [place] [facility] Body height 2022-10-31 21:55:00 162.6 cm Universi ty of [place] [facility] Body weight 2022-10-31 21:55:00 111.131 kg Universi ty of [place] [facility] BMI 2022-10-31 21:55:00 42.05 kg/m2 Universi ty of [place] [facility] Systolic blood 2022-10-18 15:58:00 110 mm[Hg] Univer sity of pressure [place] [facility] Diastolic blood 2022-10-18 15:58:00 75 mm[Hg] Unive rsity of pressure [place] [facility] Heart rate 2022-10-18 15:58:00 92 /min Universi ty of [place] [facility] Body temperature 2022-10-18 15:58:00 36.89 [facility] Univ ersity of [place] [facility] Respiratory rate 2022-10-18 15:58:00 16 /min Univ ersity of [place] [facility] Body height 2022-10-18 15:58:00 162.6 cm Universi ty [facility] [place] [facility] Body weight 2022-10-18 15:58:00 110.678 kg Universi ty [facility] [place] [facility] BMI 2022-10-18 15:58:00 41.88 kg/m2 [facility]i ty [facility] [place] [facility] Oxygen saturation in 2022-10-18 15:58:00 97 /min University of Arterial blood by [employer] Pulse oximetry Branch HEIGHT 2021-12-17 23:33:00 162.6 cm WEIGHT 2021-12-17 21:14:00 104.781 kg HEIGHT 2021-12-17 23:33:00 162.6 cm WEIGHT 2021-12-17 21:14:00 104.781 kg Systolic blood 2021-12-12 22:09:00 119 mm[Hg] Univer sity of pressure [place] [facility] Diastolic blood 2021-12-12 22:09:00 76 mm[Hg] Unive rsity of pressure [place] [facility] Heart rate 2021-12-12 22:09:00 106 /min [facility]i ty [facility] [place] [facility] Body temperature 2021-12-12 22:09:00 36.83 Sury Univ ers[facility] [place] [facility] Body height 2021-12-12 22:09:00 162.6 cm [facility]i ty [facility] [place] [facility] Body weight 2021-12-12 22:09:00 105.96 kg [facility]i [facility] [place] [facility] BMI 2021-12-12 22:09:00 40.10 kg/m2 [facility] [place] [facility] Oxygen saturation in 2021-12-12 22:09:00 98 /min [facility] Arterial blood by [employer] Pulse oximetry Branch BP Diastolic 2020-04-13 00:00:00 83 mm[Hg] [facility] Height 2020-04-13 00:00:00 64 [in_i] [facility] BMI (Body Mass 2020-04-13 00:00:00 36.5 kg/m2 [facility] [employer] [facility] BP Systolic 2020-04-13 00:00:00 118 mm[Hg] [facility] Body Weight 2020-04-13 00:00:00 212.8 [lb_av] [facility] Systolic blood 2021-12-18 12:35:00 120 mm[Hg] [facility] Diastolic blood 2021-12-18 12:35:00 90 mm[Hg] [facility] Heart rate 2021-12-18 12:35:00 79 /min [facility] Body temperature 2021-12-18 12:35:00 36.56 Sury [facility] Respiratory rate 2021-12-18 12:35:00 18 /min [facility] Oxygen saturation in 2021-12-18 12:35:00 96 /min [facility] Arterial blood by Medical Ce [facility] Pulse oximetry Body height 2021-12-17 23:33:00 162.6 cm [facility] Body weight 2021-12-17 21:14:00 104.781 kg [facility] BMI 2021-12-17 21:14:00 39.65 kg/m2 [facility] Procedures Procedure Date / Time Performing Clinician Source Performed US PELVIS COMPLETE WITH 2023-02-02 16:35:18 Jose Angel Peralta [facility] TRANSVAGINAL [facility] POCT TEST 2022-12-29 15:22:00 Dulce Weeks [facility] PATIENT FINANCIAL 2022-12-29 14:22:26 Doctor Unassigned, [facility] [place] POLICY [facility] GC & CHLAMYDIA AMPLIFIED 2022-11-15 22:38:00 Jose Angel Peralta [facility] TRICHOMONAS AMPLIFIED 2022-11-15 22:38:00 [facility] FOR [facility]ACEPTION 2022-11-15 06:01:00 Doctor Dipak, [facility] US PELVIS COMPLETE WITH 2022-10-31 00:48:02 Jose Angel Peralta [facility] TRANSVAGINAL Medical Branch NOTICE OF PRIVACY 2022-10-31 00:03:57 Doctor Dipak, [facility] PRACTICES [facility] CONSENT/REFUSAL FOR 2022-10-31 00:03:31 Doctor Dipak, [facility] DIAGNOSIS AND TREATMENT [facility] ASSIGNMENT OF BENEFITS 2022-10-31 00:03:08 Doctor Aleshiasserin, [facility] Name Medical Branch POCT TEST 2022-10-31 00:00:00 Jose Angel Peralta [facility] INSURANCE CORRESPONDENCE 2022-10-25 06:01:00 Doctor Dipak, [facility] Name Medical [place] CBC WITH DIFF 2022-10-18 17:18:00 Jose Angel Peralta [facility] ASSIGNMENT OF BENEFITS 2022-10-18 15:41:13 Doctor Dipak, [facility] Name Medical [place] URINALYSIS W/ REFLEX 2021-12-18 10:11:00 Marylu Tiwari CH I [facility] URINE CULTURE Center BLOOD CULTURE 2021-12-18 03:39:00 Chad Dickey [facility] BASIC METABOLIC PANEL 2021-12-18 03:39:00 Chad Dickey [facility] CBC W/PLT COUNT & AUTO 2021-12-18 03:39:00 [facility] DIFFERENTIAL Center CBC W/PLT COUNT & AUTO 2021-12-18 03:39:00 Chad Dickey [facility] DIFFERENTIAL Center BLOOD CULTURE 2021-12-17 23:54:00 Noble Chad [facility] EKG-SCANNED 2021-12-17 00:00:00 ProviderJasbir [facility] Medical [facility] Plan of Care Planned Activity Planned [...] [facility] Test 00:00:00 (12+) [code = DEPRESSION [facility] SCREENING (12+)] Diagnostic Test 2020-04-13 CBC w/ auto diff [code = [facility] Pending 00:00:00 CBC w/ auto diff] Group Diagnostic Test 2020-04-13 CMP, serum or plasma [facility] Pending 00:00:00 [code = CMP, serum or Group plasma] Diagnostic Test 2020-04-13 lipid panel, serum [code [facility] Pending 00:00:00 = lipid panel, serum] Group Diagnostic Test 2020-04-13 HBsAg (hepatitis B [facility] Pending 00:00:00 surface Ag), serum [code [...] CT + NG + TV, DNA, [facility] Pending 00:00:00 urine/swab [code = CT + Grou p NG + TV, DNA, urine/swab] Future Scheduled 2011 Screening for malignant [facility] Test 00:00:00 neoplasm of cervix Medical C enter (procedure) [code = 338488810] Future Scheduled 2011 Screening for malignant [facility] Test 00:00:00 neoplasm of cervix Medical C enter (procedure) [code = 305204617] Future Scheduled 2011 Screening for malignant [facility] Test 00:00:00 neoplasm of cervix Medical C enter (procedure) [code = 756531294] Future Scheduled 2011 Screening for malignant [facility] Test 00:00:00 neoplasm of cervix Medical C enter (procedure) [code = 526671860] Future Scheduled 2011 Screening for malignant [facility] Test 00:00:00 neoplasm of cervix Medical C enter (procedure) [code = 096316785] Future Scheduled 2011 Screening for malignant [facility] Test 00:00:00 neoplasm of cervix Medical C enter (procedure) [code = 056693237] Future Scheduled 2011 Screening for malignant [facility] Test 00:00:00 neoplasm of cervix Medical C enter (procedure) [code = 294935140] Future Scheduled 2011 Screening for malignant [facility] Test 00:00:00 neoplasm of cervix Medical C enter (procedure) [code = 205074381] Future Scheduled 2011 Screening for malignant [facility] Test 00:00:00 neoplasm of cervix Medical C enter (procedure) [code = 325818659] Future Scheduled 2010 Lipid panel (procedure) [facility] Test 00:00:00 [code = 32386393] Medical Ce nter Future Scheduled 2010 Lipid panel (procedure) [facility] Test 00:00:00 [code = 93306228] Medical Ce nter Future Scheduled 2010 Lipid panel (procedure) [facility] Test 00:00:00 [code = 98726679] Medical Ce nter Future Scheduled 2010 Lipid panel (procedure) [facility] Test 00:00:00 [code = 02726501] Medical Ce nter Future Scheduled 2010 Lipid panel (procedure) [facility] Test 00:00:00 [code = 31472140] Medical Ce nter Future Scheduled 2010 Lipid panel (procedure) [facility] Test 00:00:00 [code = 95690218] Medical Ce nter Future Scheduled 2010 Lipid panel (procedure) [facility] Test 00:00:00 [code = 49584679] Medical Ce nter Future Scheduled 2010 Lipid panel (procedure) [facility] Test 00:00:00 [code = 86184279] Medical Ce nter Future Scheduled 2010 Lipid panel (procedure) [facility] Test 00:00:00 [code = 46496255] Medical Ce nter Future Scheduled 2009 DTAP/TDAP/TD [...] screening Medical Cent er (procedure) [code = 033862607] Future Scheduled [address] [facility] 00:00:00 virus screening [facility] Cent [facility] (procedure) [code = 785699382] Future Scheduled [address] [facility] 00:00:00 virus screening Medical Cent [facility] (procedure) [code = 675155191] Future Scheduled [address] [facility] Test 00:00:00 virus screening Medical Cent er (procedure) [code = 655148411] Future Scheduled [address] [facility] Test 00:00:00 virus screening Medical Cent er (procedure) [code = 868816598] Future Scheduled [address] [...] Type Clinicians Facility Department ID 2021-08-30 Emergency [facility] [id number] Univers 00:49:50 [facility] 2024-08-01 2024-08-01 Outpatient ISHAN MARION [facility] [id number] Univers 10:30:00 10:30:00 [facility] 2024-07-28 2024-07-28 Outpatient R LUDAJOSE ANGEL NIETO [facility] B [id number] Univers 14:00:00 14:00:00 MARYAMJOSE ANGEL ARZOLArigo [facility] 2023-07-30 2023-07-30 Outpatient R LUDAJOSE ANGEL NIETO [facility] B [id number] Univers 14:00:00 14:00:00 ADEBAYOJOSE ANGEL HARRINGTON [facility] 2023-07-27 2023-07-27 Telephone [facility] 1.2.840.11 [id number] Univers 00:00:00 00:00:00 Ashleigh suresh 350.1.13.10 ity of PEDIATRIC 4.2.7.2.686 [facility] [id number] [address] 2023-07-24 2023-07-24 Outpatient R ADEBAYOJOSE ANGEL HARRINGTON [facility] B [id number] Univers 15:00:00 15:09:13 FABIANJOSE ANGEL [facility] 2023-07-24 2023-07-24 Office Ludaana maria [facility] 1.2.840.114 [id number] Univers 15:00:00 15:09:13 Visit Jose Angel SCRUGGS 350.1.13.10 it [place] [id number] [address] 2023-07-24 2023-07-24 Patient Fabian [facility] 1.2.840.114 [id number] Univers 00:00:00 00:00:00 Secure Msg Jose Angel SCRUGGS 350.1.13.10 it[place] [id number] [address] 2023-05-31 2023-05-31 Outpatient R MARYAMJOSE ANGEL ARZOLA [facility] B [id number] Univers 16:30:00 16:30:00 FABIANJOSE ANGELrigo [facility] 2023-02-02 2023-02-02 Outpatient R ADEBAYOJOSE ANGEL HARRINGTON [facility] B [id number] Univers 10:57:29 23:59:00 JOSE ANGEL PERALTA ity of [facility] 2023-02-02 2023-02-02 [facility] 1.2.840.114 [id number] [facility] 10:57:29 23:59:00 Anderson PAREDESSHAKIR 350.1.13.10 ity [facility] [place] [id number] [facility] [address] [place] 2023-01-08 2023-01-08 Telephone [facility] 1.2.273.704 [id number] Univers 00:00:00 00:00:00 Dulce WHALEY 350.1.13.10 ity [facility] [place] [id number] Al dicla NAL [address] [place] [address] 2023-01-02 2023-01-02 Patient [facility] 1.2.840.114 [id number] Univers 00:00:00 00:00:00 Secure Msg Zelda Hernandez JOVANA 350.1.13.10 ity [facility] 4.[place] [id number] [address] 2023-01-02 2023-01-02 Telephone [facility] 1.2.840.114 10 [id number] Univers 00:00:00 00:00:00 Dulce SCRUGGS 350.1.13.10 i [place] [phone] [facility] [address] [place] 2022-12-29 2022-12-29 Outpatient R ADUM, [facility] [id number] Univers 09:00:00 09:23:08 DULCE angulo of [facility] 2022-12-29 2022-12-29 Office [facility] 1.2.840.114 [id number] Univers 09:00:00 09:23:08 Visit Dulce WHALEY 350.1.13.10 ity [facility] 4.[place] [id number] Al dic[address] 2022-12-29 2022-12-29 Orders Doctor AMBREEN 1.2.840.114 [id number] Univers 00:00:00 00:00:00 Only Unassigned, DONY 350.1.13.10 ity of [place] [facility] 4.2.7.2.686 [place] as [id number] [address] 2022-12-29 2022-12-29 [facility] 1.2.840.114 [id number] Univers 00:00:00 00:00:00 (Out) Dulce WHALEY 350.1.13.10 ity of [place] [id number] Al dic[address] 2022-12-28 2022-12-28 Telephone [facility] 1.2.840.11 4 [id number] Univers 00:00:00 00:00:00 Jose Angel SCRUGGS 350.1.13.10 it y [place] [id number] [address] 2022-12-28 2022-12-28 Telephone [facility] 1.2.840.11 4 [id number] Univers 00:00:00 00:00:00 Jose Angel SCRUGGS 350.1.13.10 it y [place] [id number] [address] 2022-11-15 2022-11-15 Office [facility] 1.2.840.114 [id number] Univers 15:00:00 17:23:28 Visit Jose Angel SCRUGGS 350.1.13.10 it [place] [id number] [address] 2022-11-15 2022-11-15 Outpatient R JOSE ANGEL PERALTA [facility] B [id number] Univers 15:00:00 17:23:28 JOSE ANGEL PERALTA ity [facility] 2022-11-15 2022-11-15 Orders Doctor CROOK 1.2.840.114 [id number] Univers 00:00:00 00:00:00 Only Unassigned, DONY 350.1.13.10 ity of [place] [facility] 4.2.7.2.686 [place] as [id number] [facility] [address] 2022-11-08 2022-11-08 Pre Visit DENNIS Mayen 1.2.980.383 [id number] Univers 00:00:00 00:00:00 Outreach Khloe SIMMS 350.1.13.10 i ty of [place]2.7.2.[place] [id number] [facility] [address] 2022-10-31 2022-10-31 Office [facility] 1.2.840.114 [id number] Univers 16:30:00 16:30:00 Visit Jose Angel SHEBA 350.1.13.10 it y of [place].2.[place] [facility] [id number] [facility] CLINIC [address] 2022-10-31 2022-10-31 Outpatient R FABIAN [facility] B [id number] Univers 16:30:00 16:13:04 [facility] 2022-10-30 2022-10-30 Outpatient R FABIAN [facility] B [id number] Univers 18:05:11 23:59:00 [facility] 2022-10-30 2022-10-30 [facility] 1.2.840.114 [id number] Univers 18:05:11 23:59:00 Encounter Jose Angel JOVANA 350.1.13.10 ity of [place].2.7.2.[place] [id number] [facility] [address] 2022-10-27 2022-10-27 Telemedici Prisca Vilchis [facility] 1.2.8 40.114 [id number] Univers 10:30:00 10:30:00 ne Visit Cyrus Shultz FEED MANAGER 350.1.13.10 ity of [facility] 4.2.7.2.686 [place] MATERNAL [id number] Med ical & CHILD 107 [facility] 2022-10-27 2022-10-27 Outpatient R CYRUS SHULTZ [facility] [id number] Univers 10:30:00 10:23:21 ity of [facility] 2022-10-25 2022-10-25 Telephone Fabian [facility] 1.2.840.11 [id number] Univers 00:00:00 00:00:00 Jose Angel SCRUGGS 350.1.13.10 it y [place] [id number] [address] 2022-10-25 2022-10-25 Orders Doctor AMBREEN 1.2.840.114 [id number] Univers 00:00:00 00:00:00 Only Unassigned, DONY 350.1.13.10 ity of [place] [facility] 4.2.7.2.686 [place] as [id number] [address] 2022-10-20 2022-10-20 Telephone Fabian [facility] 1.2.840.11 4 [id number] Univers 00:00:00 00:00:00 Jose Angel SCRUGGS 350.1.13.10 it y [place] [id number] [address] 2022-10-18 2022-10-18 Dolly Pusher Deniz, Valerie Lab Main [facility] 1.2.8 40.114 [id number] Univers 11:30:00 11:45:00 Visit Jose Angel Peralta [facility] 350.1.13. 10 ity of [place] 4.2.[place].2.[place] [id number] Al dical [address] 2022-10-18 2022-10-18 Outpatient R JOSE ANGEL PERALTA [facility] B [id number] Univers 10:00:00 10:16:19 JOSE ANGEL PERALTA ity [facility] 2022-10-18 2022-10-18 Office Fabian [facility] 1.2.840.114 [id number] Univers 10:00:00 10:16:19 Visit Jose Angel SCRUGGS 350.1.13.10 it y of [place] [id number] [facility] [address] 2022-10-18 2022-10-18 Orders Doctor AMBREEN 1.2.840.114 [id number] Univers 00:00:00 00:00:00 Only Unassigned, DONY 350.1.13.10 ity of [place] [facility] 4.2.7.2.686 [place]an as [id number] [facility] [address] 2022 2022 Outpatient DICLEMENTE_ MEHOP MEHOP 918 [place] 00:00:00 00:00:00 NENITA Paula29 [facility] 2021-12-22 2021-12-22 Outpatient ISHAN MARION [facility] [id number] Univers 08:30:00 08:30:00 ity [facility] 2021-12-22 2021-12-22 Outpatient Wendy BENNETT [facility] [id number] Univers 08:30:00 08[facility]00 [facility] 2021-12-21 2021-12-21 Outpatient Wendy BENNETT [facility] [id number] Univers 15:00:00 15:00:00 [facility] 2021-12-17 2021-12-18 Inpatient AGUSTIN MEJIA Neurology [id number] [facility] 21:02:00 15:18:00 MARYLU 2021-12-17 2021-12-18 Hospital Brett Ortega [facility] [id number] [facility] 21:02:00 15:18:00 Encounter Edgardo Jacobs [facility] 2021-12-18 2021-12-[address] [facility] [id number] [facility] 00:00:00 00:00:00 [facility] 2021-12-14 2021-12-14 Telephone Amanda [facility] 1.2.525.027 [id number] Univers 00:00:00 00:00:00 [facility] 350.1.13.10 it y of [place] 4.2.7.2.686 Elan as BARRON?BLEA [id number] Al zuleima SCHWARTZ [address] [place] [address] MEDICAL OFFICE [facility] 2021-12-13 2021-12-13 Telephone [facility] 1.2.424.722 [id number] Univers 00:00:00 00:00:00 Nila HEALTH 350.1.13.10 it y of [place] 4.2.7.2.686 [place] as BARRON?BLEA [phone] Al zuleima SCHWARTZ [address] [place] [address] MEDICAL OFFICE [facility] 2021-12-13 2021-12-13 Tele[facility] 1.2.846.663 [id number] Univers 00:00:00 00:00:00 Nila HEALTH 350.1.13.10 it y of [place] 4.2.7.2.686 [place] as BARRON?BLEA [id number] Al zuleima SCOTT[address] OFFICE [facility] 2021-12-13 2021-12-13 Telephone [facility] 1.2.086.701 [id number] Univers 00:00:00 00:00:00 Nila HEALTH 350.1.13.10 it y of [place] 4.2.7.2.686 [place] as BARRON?BLEA [id number] Al zuleima SCOTT[address] OFFICE [facility] 2021-12-12 2021-12-12 Outpatient R AMANDA [facility] [id number] Univers 16:00:00 16:51:41 NILA adele [facility] 2021-12-12 2021-12-12 Office [facility] 1.2.840.114 [id number] Univers 16:00:00 16:51:41 Visit Nila HEALTH 350.1.13.10 it y of [place] 4.2.7.2.686 [place]an as BARRON?BLEA [id number] Al zuleima [address] OFFICE [facility] 2021-12-12 2021-12-12 [facility] [id number] Univers 16:00:00 16:51:41 NILA yousufrigo [facility] 2021-12-12 2021-12-12 Letter [facility] 1.2.840.114 [id number] Univers 00:00:00 00:00:00 (Out) Nila HEALTH 350.1.13.10 it y of [place] 4.2.7.2.686 [place] as BARRON?BLEA [id number] Al dical KNEY 044 [facility] 2021-10-12 2021-10-12 Outpatient R LYDIA [facility] [id number] Univers 09:10:00 09:10:00 ZELDA adele [facility] 2021-10-12 2021-10-12 Outpatient [facility] [id number] Univers 09:00:00 09:00:00 AIDAN [facility] 2021-10-12 2021-10-12 Imm/Inj Nurse, Adc Pob Immunization [facility] 1.2.840.114 [id number] Univers 09:00:00 09:00:00 Visit Aidan Reynoso 350.1.13 .10 ity of [facility] [place] [id number] Al dical NAL 421 [facility] 2021-10-12 2021-10-12 Outpatient [facility] [id number] Univers 08:00:00 08:00:00 [facility] 2021-09-14 2021-09-14 Outpatient [facility] [id number] Univers 09:30:00 09:30:00 [facility] 2021-09-14 2021-09-14 Imm/Inj Nurse, Adc Pob Immunization [facility] 1.2.840.114 [id number] Univers 09:01:10 09:01:24 Visit Aidan Reynoso 350.1.13 .10 ity [facility] 4.2.[place] [phone] Al dical NAL 421 [facility] 2021-08-20 2021-08-20 Kamilah Villegas [facility] 1.2.840.114 [id number] Univers 00:00:00 00:00:00 Gisell HEALTH 350.1.13.10 it y of [place] 4.2.7.2.686 [place] as BARRON?BLEA [id number] Me dical KNEY [address] [place] MEDICAL OFFICE BUILDING 2021-08-04 2021-08-04 Patient Doctor AMBREEN 1.2.840.114 [id number] Univers 00:00:00 00:00:00 Secure Msg Unassigned, DONY 350.1.13.10 ity of [place] [facility] 4.2.7.2.686 [place] as [id number] [facility] [address] [place] 2021-07-29 2021-07-29 Urgent Gisell Villegas [facility] 1.2.840.114 [id number] Univers 10:14:01 10:34:01 Care Unknown, Attending Health 350.1.13.10 ity of [place] 4.2.7.2.686 [place] Barron?Blea [id number] [address] [facility] 2021-07-29 2021-07-29 Outpatient R UNKNOWN, [facility] [id number] Univers 10:20:00 10:20:00 ATTENDING ity of [facility] 2021-07-21 2021-07-21 Emergency Vanessa Eduardo [facility] 1.2.840.114 [id number] Univers 10:06:00 11:06:00 Josefina Whaley 350.1.13.10 i ty of [place] [phone] [facility] [address] [place] 2021-07-19 2021-07-19 Orders Doctor AMBREEN 1.2.840.114 [id number] Univers 00:00:00 00:00:00 Only Unassigned, DONY 350.1.13.10 ity of [place] [facility] 4.2.7.2.686 [place] as [id number] [facility] [address] [place] 2021-07-05 2021-07-05 Telephone Lydia [facility] 1.2.840.114 [id number] Univers 00:00:00 00:00:00 Zelda Whaley 350.1.13.10 ity of [place] [facility] [id number] [facility] 231 [facility] 2021-06-02 2021-06-02 Laboratory Lab, Adc Fam Pob I [facility] 1.2. 840.114 [id number] Univers 20:27:39 20:47:39 Only Cedric [facility] 350.1.13.10 ity of [place] 4.2.7.2.686 [place] as Professio [phone] [facility] 044 [facility] One 2021-06-02 2021-06-02 Laboratory Lab, [facility] 1..840.114 [id number] 20:27:39 20:47:39 Only Fam Pob I Health 350.1.13.10 [place] 4.2.7.2.686 Professio [phone] [place] [address] [address] One 2021-06-02 2021-06-02 Outpatient R BANDAR [facility] [id number] Univers 20:20:00 20:20:00 CEDRIC ity [facility] 2021-06-02 2021-06-02 Outpatient [facility]ICLEMENTE_ [facility] 918 [place] 11:05:00 11:05:00 NENITA Zaidi [facility] 2021-06-02 2021-06-02 Orders Doctor AMBREEN 1.2.840.114 [id number] Univers 00:00:00 00:00:00 Only Unassigned, DONY 350.1.13.10 ity of [place] [facility] 4.2.7.2.686 Elan as [phone] [address] 2021-06-02 2021-06-02 [facility] 1.2.840.114 [id number] Univers 00:00:00 00:00:00 Zelda Whaley 350.1.13.10 ity of [place] Profess[place] [phone] [facility] 231 [facility] 2021-06-02 2021-06-02 Orders Doctor AMBREEN 1.2.840.114 [id number] 00:00:00 00:00:00 Only Unassigned, DOYN 350.1.13.10 [place] [facility] 4.2.7.2.686 [id number] [facility] 2021-06-02 2021-06-02 [facility] 1.2.840.114 [id number] 00:00:00 00:00:00 Zelda Whaley 350.1.13.10 [place] 4.2.7.2.686 Professio [phone] [facility] [address] [facility] 2021-01-18 2021-01-18 Patient [facility] 1.2.840.114 [id number] Univers 00:00:00 00:00:00 Outreach [facility] 350.1.13.10 i ty of [facility] 4.2.7.2.686 [place] PAV[place] [phone] Al dical [address] 2021-01-18 2021-01-18 Patient [facility] 1.2.840.114 [id number] 00:00:00 00:00:00 Outreach Aidan PRIMARY 350.1.13.10 [facility] 4.2.7.2.686 PAVILLION [phone] [facility] 2020-09-15 2020-09-15 Outpatient cMcDonald [facility] [id number] [place] 02:40:00 02:40:00 1118 [facility] 2020-09-15 2020-09-15 [facility]patient [facility] [id number] [place] 00:00:00 00:00:00 0831 Medical Group 2020-05-24 2020-05-24 [facility] [id number] [facility] 08:40:00 08:40:00 ZELDA angulo of [facility] 2020-04-14 2020-04-14 [facility] [id number] [place] 05:40:00 05:40:00 0619 [facility] 2020-04-13 2020-04-13 Outpatient [facility] [id number] [place] 07:38:00 07:38:00 0616 [facility] Group 2020-04-13 2020-04-13 Maia [facility] [place] - [id number] M merlyn 00:00:00 00:00:00 Chon Olivas [facility] STEINER: [address] [place] [address] [facility] [address], [place] [address] , Ph. [phone] 2020-01-23 2020-03-12 Telemedici Foster, [facility] [id number] [facility] 11:11:01 16:10:25 ne Visit Matt Whaley [id number] [facility] [place] [id number] [phone] [address] 2020-01-23 2020-03-12 [facility] [id number] 11:11:01 16:10:25 ne Visit Matt Whaley [id number] [place] [id number] Professio [id number] [address] 2020-02-23 2020-02-26 Outpatient BRIAN, [facility] 0118 [facility] 14:38:00 13:00:00 CYRUS 2020-02-22 2020-02-23 Inpatient U APOLINAR [facility] MED 0117 [facility] 19:57:00 13:45:00 [facility] [facility] 2020-01-30 2020-01-[facility] [id number] [facility] 08:10:50 15:55:51 ne Visit Matt Jovana [id number] ity [phone] [address] 2020-01-30 2020-01-30 Outpatient R KRISTIN, [facility] [id number] Univers 10:45:00 10:45:00 MATT ity of [facility] 2020-01-27 2020-01-[address] [facility] [id number] Univers 00:00:00 00:00:00 Matt Whaley [id number] i ty [id number] [phone] [address] 2020-01-27 2020-01-[address] [facility] [id number] Univers 00:00:00 00:00:00 Matt Whaley [id number] i ty of [id number] [phone] Al dical nal 134 [facility] 2020-01-23 2020-01-23 Outpatient R KRISTIN [facility] [id number] Univers 13:15:00 13:15:00 MATT angulo [facility] 2020-01-23 2020-01-[address] [facility] [id number] Univers 00:00:00 00:00:00 Matt Whaley [id number] i ty [id number] [phone] [facility] 134 [facility] 2020-01-22 2020-01-22 Telemedici [facility] [id number] Univers 08:40:14 12:05:25 ne Visit Zelda Whaley [id number] ity of [id number] [phone] [facility] 231 [facility] 2020-01-22 2020-01-22 Outpatient R LYDIA [facility] [id number] Univers 10:40:00 10:40:00 ZELDA angulo [facility] 2019-12-12 2019-12-12 Telephone [facility] [id number] Univers 00:00:00 00:00:00 Zelda Whaley [id number] ity of [id number] [phone] Al dical [facility] 231 [facility] 2019-12-06 2019-12-06 Refill Doctor [facility] [id number] Univers 00:00:00 00:00:00 UnassignedJovana [id number] ity of [id number] [phone] [facility] 044 [facility] 2019-12-06 2019-12-06 [facility] [id number] Univers 00:00:00 00:00:00 Zelda Whaley [id number] [facility] [place] [id number] [place] su[place] Ishan [phone] Al dical [address] 2019-10-14 2019-10-14 [facility] [address] [place] 12:28:00 12:28:00 0615 [facility] [...] PREG TEST DATE (test code = 3576) [facility] [id number] 15:22:00 Test Item Value Reference Range Interpretation Comments POCT PREG (test code = 1605) Negative On board controls acceptable with C Yes Line (test code = 3574) POCT PREG LOT # (test code = 3575) POCT PREG TEST DATE (test code = 3576) [facility] [id number] 15:22:00 Test Item Value Reference Range Interpretation Comments POCT PREG (test code = 1605) Negative On board controls acceptable with C Yes Line (test code = 3574) POCT PREG LOT # (test code = 3575) POCT PREG TEST DATE (test code = 3576) [facility] [id number] 22:27:00 Test Item Value Reference Range Interpretation Comments POCT PREG (test code = 1605) Negative On board controls acceptable with C Yes Line (test code = 3574) POCT PREG LOT # (test code = 3575) POCT PREG TEST DATE (test code = 3576) [facility] [id number] 22:27:00 Test Item Value Reference Range Interpretation Comments POCT PREG (test code = 1605) Negative On board controls acceptable with C Yes Line (test code = 3574) POCT PREG LOT # (test code = 3575) POCT PREG TEST DATE (test code = 3576) [facility] WITH [id number] 17:37:52 Test Item Value Reference Range Interpretation Comments WBC (test code = See_Comment [Automated 6690-2) message] The sy stem which generated this result transmitted reference range : 4.30 - 11.10 10*3/?L. The reference range was not used to interpret this result as normal/abnormal . RBC (test code = See_Comment [Automated 789-8) message] The sy stem which generated this [...] RDW-SD (test code = 45.0 fL 39.0-49.9 27979-3) RDW-CV (test code = 13.5 % 12.0-15.5 788-0) PLT (test code = See_Comment [Automated 777-3) message] The sy stem which generated this result transmitted reference range : 166 - 358 10*3/ ?L. The reference r flaquito was not used to interpret this result as normal/abnormal . MPV (test code = 10.5 fL 9.5-12.9 11687-2) NRBC/100 WBC (test See_Comment [Automat ed code = 2548608475) message] The system which generated this result transmitted reference range : 0.0 - 10.0 /100 WBCs. The refer ence range was not u sed to interpret th is result as normal/abnormal . NRBC x10^3 (test code See_Comment [Auto mated = 9421211930) message] The s ystem which generated this result transmitted reference range : 10*3/?L. The reference range was not used to interpret this result as normal/abnormal . GRAN MAT (NEUT) % 50.6 % (test code = 770-8) IMM GRAN % (test code 0.50 % = 2231311326) LYMPH % (test code = 39.9 % 736-9) MONO % (test code = 7.3 % 5905-5) EOS % (test code = 1.4 % 713-8) BASO % (test code = 0.3 % 706-2) GRAN MAT x10^3(ANC) 4.40 10*3/uL 1.88-7.09 (test code = 5741864879) IMM GRAN x10^3 (test 0.04 10*3/uL 0.00-0.06 code = 6677919012) LYMPH x10^3 (test code 3.46 10*3/uL 1.32-3.29 H = 731-0) MONO x10^3 (test code 0.63 10*3/uL 0.33-0.92 = 742-7) EOS x10^3 (test code = 0.12 10*3/uL 0.03-0.39 711-2) BASO x10^3 (test code 0.03 10*3/uL 0.01-0.07 = 704-7) Lab Interpretation Abnormal (test code = 23016-8) [facility] - [facility] 2021-12-23 06:00:39 Test Item Value Reference Range Interpretation Comments Result (test code = No growth in 5 days 6463-4) [facility] [id number] 06:00:39 Test Item Value Reference Range Interpretation Comments CULTURE (BEAKER) (test No growth in 5 days code = 1095) BLOOD [id number] 03:00:36 Test Item Value Reference Range Interpretation Comments CULTURE (BEAKER) (test No growth in 5 days code = 1095) Urinalysis w/Microscopic + Reflex to [id number] 10:45:20 Test Item Value Reference Range Interpretation Comments Color, UA (test Light Yellow code = 5778-6) Clarity, UA (test Clear code = 5767-9) Specific [place], 1.014 1.001-1.035 UA (test code = 5811-5) pH, UA (test code 7.5 5.0-8.0 = 5803-2) Protein, UA (test Negative Negative code = 46646-5) Glucose, UA (test Negative Negative code = 365) Ketones, UA (test Negative Negative code = 2514-8) Bilirubin, UA Negative Negative (test code = 24823-8) Blood, UA (test Negative Negative code = 33524-6) Nitrite, UA (test Negative Negative code = 5802-4) Leukocytes, UA Negative Negative (test code = 5799-2) Urobilinogen, UA 0.2 mg/dL 0.2-1.0 (test code = 95904-6) RBC, UA (test 1 See_Comment [Automated me ssage] code = 76015-7) The system [facility] generated this result transmit aamir reference range : /HPF. The refer ence range was not u sed to interpret th is result as normal/abnormal . WBC, UA (test 1 See_Comment [Automated me ssage] code = 5821-4) The system [facility] generated this result transmit aamir reference range : /HPF. The refer ence range was not u sed to interpret th is result as normal/abnormal . Bacteria, UA Rare (test code = 50892-4) Mucus (test code Rare = 8247-9) Squam Epithel, UA 3 See_Comment [Automate d message] (test code = The system [facility] h 71774-9) generated this result transmit aamir reference range : /HPF. The refer ence range was not u sed to interpret th is result as normal/abnormal . Crystals, Urine None Seen (test code = 68657-7) Specimen Source (test code = 2795) SERGIO (test code = Underwriting Sales Representative ID - SERGIO) [auto]Underwriting Sales Representative ID - tech [facility]/ REFLEX URINE [id number] 10:45:20 Test Item Value Reference Range Interpretation [...] = 1521) SOURCE(BEAKER) (test code = 2795) Underwriting Sales Representative ID - [auto]Underwriting Sales Representative ID - [employer] metabolic [id number] 04:19:43 Test Item Value Reference Range Interpretation Comments Sodium (test code = 139 meq/L 424-962 4999-2) Potassium (test code = 3.6 meq/L 3.5-5.1 2823-3) Chloride (test code = 108 meq/L 98-107 H 2075-0) CO2 (test code = 25 meq/L 22-29 2028-9) BUN (test code = 13 mg/dL 7-21 3094-0) Creatinine (test code 0.84 mg/dL 0.57-1.25 = 2160-0) Glucose (test code = 112 mg/dL 70-105 H 2345-7) Calcium (test code = 9.0 mg/dL 8.4-10.2 88569-6) EGFR (test code = 79 mL/min/1.73 [place] [address]-3) NOT ACCURATE CREATININE CLEARANCE IN PREDICTING GLOMERULAR FILTRATION RATE . ESTIMATED GFR I S NOT APPLICABLE FOR DIALYSIS PATIENTS. SERGIO (test code = SERGIO) Underwriting Sales Representative ID - SHELBY M Lab Interpretation Abnormal (test code = 92925-9) [facility] [id number] 04:19:43 Test Item Value Reference Range Interpretation [...] S NOT APPLICABLE FOR DIALYSIS PATIEN TS. Underwriting Sales Representative ID - SHELBY MCBC with platelet count + automated [id number] 04:14:48 Test Item Value Reference Range Interpretation Comments WBC (test code = 6690-2) 8.8 See_Comment [A utomated message] The system [facility] generated this result transmitted ref erence range: 3.5 - 10 .5 K/L. The refe rence range was not u sed to interpret this result as normal/abnor mal. RBC (test code = 789-8) 4.06 See_Comment [Au tomated message] The system [facility] generated this result transmitted ref erence range: 3.93 - 5 .22 M/L. The refe rence range was not u sed to interpret this result as normal/abnor mal. MCHC (test code = 786-4) 31.2 See_Comment L [A utomated message] The system [facility] generated this result transmitted ref erence range: [...] See_Comment [Aut omated message] 777-3) The system [facility] generated this result transmitted ref erence range: 150 - 45 0 K/CU MM. The referen ce range was not u sed to interpret this result as normal/abnor mal. MPV (test code = 10.5 fL 9.4-12.3 29791-0) nRBC (test code = 413) 0 See_Comment [Aut omated message] The system [facility] generated this result transmitted ref erence range: [...] See_Comment [Aut omated message] 670) The system [facility] generated this result transmitted ref erence range: 1.56 - 6 .13 K/L. The refe rence range was not u sed to interpret this result as normal/abnor mal. # Lymphs (test code = 4.14 See_Comment H [Auto mated message] 414) The system [facility] generated this result transmitted ref erence range: 1.18 - 3 .74 K/L. The refe rence range was not u sed to interpret this result as normal/abnor mal. # Monos (test code = 0.74 See_Comment H [Autom ated message] 415) The system [facility] generated this result transmitted ref erence range: 0.24 - 0 .36 K/L. The refe rence range was not u sed to interpret this result as normal/abnor mal. # Eos (test code = 416) 0.33 See_Comment [Au tomated message] The system [facility] generated this result transmitted ref erence range: 0.04 - 0 .36 K/L. The refe rence range was not u sed to interpret this result as normal/abnor mal. # Baso (test code = 417) 0.04 See_Comment [A utomated message] The system [facility] generated this result transmitted ref erence range: 0.01 - 0 .08 K/L. The refe rence range was not u sed to interpret this result as normal/abnor mal. Immature 0 % 0-1 Granulocytes-Relative (test code = 2801) Lab Interpretation (test Abnormal code = 09778-9) [facility] W/PLT COUNT & AUTO [id number] 04:14:48 Test Item Value Reference Range Interpretation [...] % 0-1 PERCENT (BEAKER) (test code = 2801)
[2023-09-05 18:12] LABS: Absolute Lymphocytes (CBC) 3.6 K/uL (0.7-4.9); Hematocrit 35.3 % (36.0-45.0); Lymphocytes % 46.3 % (15.3-44.8); MCV 87.5 fL (80-100); MPV 9.1 fL (7.6-11.3); Platelets 292 thou/uL (152-406); RBC Red Blood Cell Count 4.03 M/uL (3.86-4.86)
[2023-09-05] MEDS ORDERED: LEVETIRACETAM 500 MG/5 ML VIAL IV ONE (18:14)
[2023-09-05] MEDS ORDERED: NA CHLORIDE 0.9% 100 ML ONE (18:14)
--- NOTE | 2023-09-05 18:18 | RAD REPORT ---
EXAM DESCRIPTION: CT - Head Brain Wo Cont - 09/05/2023 6:08 pm CLINICAL HISTORY: seizure, reported head trauma Headache, drowsiness, seizure COMPARISON: Head Brain Wo Cont dated 05/10/2023; Head Brain Wo Cont dated 08/08/2022 TECHNIQUE: All CT scans are performed using dose optimization technique as appropriate and may inclu de automated exposure control or mA/KV adjustment according to patient size. FINDINGS: No intracranial hemorrhage, hydrocephalus or extra-axial fluid collection.No areas of brai n edema or evidence of midline shift. The paranasal sinuses and mastoids are clear. The calvarium is intact. IMPRESSION: No acute intracranial abnormality.
[2023-09-05 18:27] LABS: Albumin 3.5 g/dL (3.4-5.0); Bilirubin Total 0.4 mg/dL (0.2-1.0); Magnesium 1.7 mg/dL (1.6-2.4); Potassium 3.8 mEq/L (3.5-5.1); Protein, Total 7.1 g/dL (6.4-8.2)
[2023-09-05] MEDS ORDERED: ONDANSETRON 4 MG/2 ML VIAL ONE (18:31)
--- NOTE | 2023-09-05 19:24 | P.HP ---
Certification for Inpatient Patient admitted to: Inpatient With expected LOS: >2 Midnights Patient will require the following post-hospital care: None Practitioner: I am a practitioner with admitting privileges, knowledge of patient current condition, hospital course, and medical plan of care. Services: Services provided to patient in accordance with Admission requirements found in Title 42 Section 412.3 of the Code of Federal Regulations Patient History Date of Service: 09/05/23 Reason for admission: Seizure History of Present Illness: 33-year-old female with past medical history of Asthma; Anxiety; epilepsy; herniated disc; Hypertension; Migraines; history panic Attacks and Seizures brought to ER with iujn-lh-vyde seizures restarted today Patient is post ictal hence most of the history is obtained from chart review and also talking to the ER physician. Denies any fever or chills No chest pain or shortness of breath Patient was assessed in the ER and was admitted for further management of breakthrough seizures and to rule out status epilepticus Allergies ketorolac Allergy (Verified 09/06/21 21:29) Itching/Hives/Rash Home medications list reviewed: Yes Home Medications: Furosemide 1 tab PO DAILY 03/06/23 Gabapentin 1 tab PO TID 03/06/23 Pantoprazole [Protonix Tab*] 1 tab PO DAILY 03/06/23 Valsartan/Hydrochlorothiazide [Valsartan-Hctz 160-25 mg Tab] 1 tab PO DAILY 03/06/23 carBAMazepine [Tegretol*] 1 tab PO BID 30 Days #60 tab 03/07/23 levETIRAcetam [Keppra*] 1 tab PO BID 30 Days #60 tab 03/07/23 - Past Medical/Surgical History Diabetic: No Past Medical History: Reviewed- Non-Contributory -: Panic Attacks -: Anxiety -: Seizures -: Asthma -: HTN -: herniated bulging disc -: pinched nerve both neck and buttocks -: Migraines Past Surgical History: Reviewed- Non-Contributory -: L ear reconstruction Psychosocial/ Personal History: Patient lives at home with family - Family History Father -: Hypertension - Social History Alcohol use: No CD- Drugs: No Caffeine use: Yes Review of Systems is unable to be obtained Physical Examination - Vital Signs Temperature: 98.4 F Blood Pressure: 89/65 Pulse: 78 Respirations: 18 Pulse Ox (%): 98 - Physical Exam General: Other (Post Ictal ) HEENT: Atraumatic, Normocephalic Neck: Supple, No Thyromegaly Respiratory: Clear to auscultation bilaterally, Crackles/rales Cardiovascular: Normal pulses, Regular rate/rhythm, Normal S1 S2 Capillary refill: <2 Seconds Gastrointestinal: Soft and benign, Non-distended, W/out hepatosplenomegaly Musculoskeletal: No clubbing, No swelling Integumentary: No rashes, No significant lesion Neurological: Other (Confused , Post Ictal ) Lymphatics: No axilla or inguinal lymphadenopathy - Studies Laboratory Data (last 24 hrs) 09/05/23 09/05/23 18:00 18:00 WBC 7.80 Hgb 11.4 L Hct 35.3 L Plt Count 292 Sodium 142 Potassium 3.8 BUN 11 Creatinine 1.22 H Glucose 84 Magnesium 1.7 Total Bilirubin 0.4 AST 10 L ALT 22 Alkaline Phosphatase 64 Imagings Data: Reason for Exam: seizure, reported head trauma Report Status: Signed EXAM DESCRIPTION: CT - Head Brain Wo Cont - 09/05/2023 6:08 pm CLINICAL HISTORY: seizure, reported head trauma Headache, drowsiness, seizure COMPARISON: Head Brain Wo Cont dated 05/10/2023; Head Brain Wo Cont dated 08/08/2022 TECHNIQUE: All CT scans are performed using dose optimization technique as appropriate and may include automated exposure control or mA/KV adjustment according to patient size. FINDINGS: No intracranial hemorrhage, hydrocephalus or extra-axial fluid collection.No areas of brain edema or evidence of midline shift. The paranasal sinuses and mastoids are clear. The calvarium is intact. IMPRESSION: No acute intracranial abnormalit Assessment and Plan - Problems (Diagnosis) (1) Seizures Current Visit: No Status: Acute Plan: Acute encephalopathy possibly postictal Monitor closely on telemetry Neuro vital signs monitor CT head showing no acute changes Breakthrough seizures Started on Keppra We will obtain Keppra level Neurology consulted as per ED CT head negative for any acute changes Seizure precautions (2) Asthma Current Visit: Yes Status: Chronic Plan: Continue bronchodilators as needed Monitor closely (3) History of hypertension Current Visit: Yes Status: Chronic Plan: Patient is hypertensive at this time We will hold antihypertensives for now Discharge Plan: Home Plan to discharge in: 48 Hours - Advance Directives Does patient have a Living Will: No Does patient have a Durable POA for Healthcare: No - Code Status/Comfort Care Code Status: Full Code Time Spent Managing Pts Care (In Minutes): 46
[2023-09-05] MEDS ORDERED: NA CHLORIDE 0.9% 1,000 ML ONE (19:30)
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
[2023-09-05] MEDS ORDERED: ACETAMINOPHEN 500 MG TAB ONE (20:03)
[2023-09-05] MEDS ORDERED: ACETAMINOPHEN 500 MG TAB PO PRN (20:34)
[2023-09-05] MEDS ORDERED: ACETAMIN/CAFFEINE/BUTALB TAB PO ONE ×2 (21:26→22:30)
[2023-09-05] MEDS ORDERED: KETOROLAC 30 MG/ML INJ IV PRN (21:26)
[2023-09-05] MEDS: D5 0.45 NS 1,000 ML IV SCH (22:20)
[2023-09-05] MEDS: MORPHINE 2 MG/ML SYR IV PRN (22:29)
[2023-09-05] MEDS ORDERED: MORPHINE 2 MG/ML SYR ONE (22:30)
[2023-09-05] MEDS ORDERED: D5 0.45 NS 1,000 ML IV ONE (22:30)
[2023-09-06] MEDS: ONDANSETRON 4 MG/2 ML VIAL IV PRN ×2 (04:30→14:40)
[2023-09-06] MEDS: MORPHINE 2 MG/ML SYR IV PRN ×3 (04:30→14:40)
[2023-09-06 04:41] LABS: Absolute Lymphocytes (CBC) 4.1 K/uL (0.7-4.9); Hematocrit 30.9 % (36.0-45.0); Lymphocytes % 60.7 % (15.3-44.8); MCV 88.3 fL (80-100); MPV 9.3 fL (7.6-11.3); Platelets 237 thou/uL (152-406)
[2023-09-06] MEDS ORDERED: LORazepam 2 MG/ML VIAL ONE (05:00)
[2023-09-06 05:09] LABS: Albumin 2.8 g/dL (3.4-5.0); Bilirubin Total 0.5 mg/dL (0.2-1.0); Potassium 3.7 mEq/L (3.5-5.1); Protein, Total 5.8 g/dL (6.4-8.2)
[2023-09-06 06:45] LABS: Blood Morphology Comment NOT SEEN (NOT SEEN); Platelet Estimate ADEQ
[2023-09-06] MEDS: D5 0.45 NS 1,000 ML IV SCH ×2 (07:00→16:35)
[2023-09-06 07:14] VITALS: BMI 41.0
[2023-09-06] MEDS: PANTOPRAZOLE 40MG TABLET PO SCH (07:30)
[2023-09-06] MEDS ORDERED: LEVETIRACETAM 500 MG/5 ML VIAL IV ONE (08:12)
[2023-09-06] MEDS ORDERED: MORPHINE 2 MG/ML SYR ONE ×2 (08:13→14:33)
[2023-09-06] MEDS ORDERED: NA CHLORIDE 0.9% 100 ML ONE (08:13)
[2023-09-06] MEDS ORDERED: INFLUENZA VACCINE (for 6+ mo) 0.5 ML DOSE IMVAC ONE (09:00)
[2023-09-06] MEDS: carBAMazepine 200 MG TAB PO SCH ×2 (09:00→20:04)
[2023-09-06] MEDS ORDERED: levETIRAcetam 500 MG in NA CHLORIDE 0.9% 100 ML IV SCH (09:00)
[2023-09-06] MEDS: GABAPENTIN 300 MG CAP PO SCH ×3 (09:00→20:04)
[2023-09-06] MEDS: FUROSEMIDE 40 MG TABLET PO SCH (09:00)
[2023-09-06] MEDS ORDERED: GABAPENTIN 300 MG CAP ONE (09:35)
[2023-09-06] MEDS ORDERED: PANTOPRAZOLE 40MG TABLET PO ONE (09:35)
[2023-09-06] MEDS ORDERED: FUROSEMIDE 40 MG TABLET ONE (09:35)
[2023-09-06] MEDS ORDERED: carBAMazepine 200 MG TAB ONE (09:36)
[2023-09-06] MEDS ORDERED: DIPHENHYDRAMINE 50 MG/ML VIAL IV ONE (10:05)
[2023-09-06] MEDS ORDERED: DIPHENHYDRAMINE 50 MG/ML VIAL ONE (10:16)
[2023-09-06] MEDS ORDERED: ONDANSETRON 4 MG/2 ML VIAL ONE (14:33)
--- NOTE | 2023-09-06 15:26 | P.PN ---
Subjective Date of Service: 09/06/23 Chief Complaint: Seizure Subjective: No new changes, Improving Physical Examination - Vital Signs Temperature: 97.8 F Blood Pressure: 109/79 Pulse: 97 Respirations: 18 Pulse Ox (%): 97 - Physical Exam General: Alert HEENT: Atraumatic Neck: Supple Respiratory: Normal air movement Cardiovascular: Regular rate/rhythm, Normal S1 S2 Gastrointestinal: Soft and benign Musculoskeletal: No swelling Neurological: Normal speech - Studies Laboratory Data (last 24 hrs) 09/05/23 09/05/23 18:00 18:00 WBC 7.80 Hgb 11.4 L Hct 35.3 L Plt Count 292 Sodium 142 Potassium 3.8 BUN 11 Creatinine 1.22 H Glucose 84 Magnesium 1.7 Total Bilirubin 0.4 AST 10 L ALT 22 Alkaline Phosphatase 64 Assessment And Plan - Plan Assessment and Plan - Problems (Diagnosis) (1) Seizures Current Visit: No Status: Acute Plan: No acute seizures noted since admission. Has been started on IV Keppra, oral gabapentin and has as needed lorazepam on board. We will obtain EEG. Neurology to evaluate for adjustment to antiseizure medications. Seizure precautions to be continued (2) Asthma Current Visit: Yes Status: Chronic Plan: Continue bronchodilators as needed Monitor closely (3) History of hypertension Current Visit: Yes Status: Chronic Plan: Patient is borderline hypotensive at this time We will hold antihypertensives for now. We will follow vitals per unit protocol Discharge Plan: Home when cleared by neurology Plan to discharge in: 48 Hours - Advance Directives Does patient have a Living Will: No Does patient have a Durable POA for Healthcare: No CODE STATUS: Full code.
[2023-09-06] MEDS: levETIRAcetam 1,000 MG in NA CHLORIDE 0.9% 100 ML IV SCH (20:05)
--- NOTE | 2023-09-06 20:50 | RAD REPORT ---
EXAM DESCRIPTION: CT - Head Brain Wo Cont - 09/06/2023 8:22 pm CLINICAL HISTORY: head hit on the bedside cabinet due to fall COMPARISON: Head Brain Wo Cont dated 09/05/2023; Head Brain Wo Cont dated 05/10/2023; Chest Single Vie w dated 01/25/2022 TECHNIQUE: Noncontrast head CT images ad obtained without IV contrast. Multiplanar reformats were ge nerated and reviewed. All CT scans are performed using dose optimization technique as appropriate and may include automated exposure control or mA/KV adjustment according to patient size. FINDINGS: No intracranial hemorrhage, mass, or edema. Midline structures are unremarkable. Normal ventricular caliber for age. Guerrero-white matter differentiation is preserved, without evidence of acute infarct. No abnormal extra- axial fluid collections. Mastoid air cells and visualized portions of the paranasal sinuses are clear. No acute bony findings. IMPRESSION: No evidence of an acute intracranial process.
--- NOTE | 2023-09-06 20:51 | RAD REPORT ---
EXAM DESCRIPTION: RAD - Knee Left 2 View - 09/06/2023 7:44 pm CLINICAL HISTORY: left Knee pain due to fall COMPARISON: No comparisons TECHNIQUE: Left knee, 3 views. FINDINGS: No fracture, dislocation or periosteal reaction.No joint effusion seen. No joint space roxann rowing. No soft tissue abnormality. IMPRESSION: Negative left knee.
[2023-09-07] MEDS: D5 0.45 NS 1,000 ML IV SCH ×3 (03:28→15:06)
[2023-09-07] MEDS: MORPHINE 2 MG/ML SYR IV PRN ×3 (05:00→13:05)
[2023-09-07] MEDS: levETIRAcetam 1,000 MG in NA CHLORIDE 0.9% 100 ML IV SCH (09:15)
--- NOTE | 2023-09-07 09:16 | P.PN ---
Subjective Date of Service: 09/07/23 Chief Complaint: Seizure Subjective: No new changes, Improving Physical Examination - Vital Signs Temperature: 97.7 F Blood Pressure: 109/62 Pulse: 75 Respirations: 18 Pulse Ox (%): 99 - Physical Exam General: Alert HEENT: Atraumatic Neck: Supple Respiratory: Normal air movement Cardiovascular: Regular rate/rhythm, Normal S1 S2 Gastrointestinal: Soft and benign Musculoskeletal: No swelling Neurological: Normal speech, Normal strength at 5/5 x4 extr Assessment And Plan - Plan Assessment and Plan - Problems (Diagnosis) (1) Seizures Current Visit: No Status: Acute Plan: Had episode of seizure this morning. Has been started on IV Keppra, oral carbamazepine and has as needed lorazepam on board. we will continue above meds. We will obtain EEG. Neurology to evaluate for adjustment to anti-seizure medications. Seizure precautions to be continued. (2) Asthma Current Visit: Yes Status: Chronic Plan: Continue bronchodilators as needed Monitor closely (3) History of hypertension Current Visit: Yes Status: Chronic Plan: Patient is borderline hypotensive at this time We will continue to hold antihypertensives for now. We will follow vitals per unit protocol Discharge Plan: Home when cleared by neurology. Plan to discharge in: 48 Hours - Advance Directives Does patient have a Living Will: No Does patient have a Durable POA for Healthcare: No CODE STATUS: Full code.
[2023-09-07] MEDS: LORazepam 2 MG/ML VIAL IV PRN (09:19)
[2023-09-07] MEDS: ONDANSETRON 4 MG/2 ML VIAL IV PRN (09:24)
[2023-09-07] MEDS: PANTOPRAZOLE 40MG TABLET PO SCH (09:27)
[2023-09-07] MEDS: GABAPENTIN 300 MG CAP PO SCH ×3 (09:27→20:01)
[2023-09-07] MEDS: carBAMazepine 200 MG TAB PO SCH ×2 (09:27→20:01)
[2023-09-07] MEDS: FUROSEMIDE 40 MG TABLET PO SCH (09:28)
[2023-09-07] MEDS: DIPHENHYDRAMINE 25 MG TAB/CAP PO SCH (15:07)
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
[2023-09-07] MEDS: levETIRAcetam 500 MG TAB PO SCH (20:00)
[2023-09-08] MEDS: D5 0.45 NS 1,000 ML IV SCH ×3 (00:40→17:57)
[2023-09-08] MEDS: PANTOPRAZOLE 40MG TABLET PO SCH (09:06)
[2023-09-08] MEDS: carBAMazepine 200 MG TAB PO SCH ×2 (09:06→20:56)
[2023-09-08] MEDS: DIPHENHYDRAMINE 25 MG TAB/CAP PO SCH (09:06)
[2023-09-08] MEDS: FUROSEMIDE 40 MG TABLET PO SCH (09:06)
[2023-09-08] MEDS: levETIRAcetam 500 MG TAB PO SCH ×2 (09:06→20:56)
[2023-09-08] MEDS: GABAPENTIN 300 MG CAP PO SCH ×3 (09:06→20:56)
[2023-09-08] MEDS: MORPHINE 2 MG/ML SYR IV PRN ×3 (09:51→19:52)
[2023-09-08] MEDS: LORazepam 2 MG/ML VIAL IV PRN ×2 (10:01→23:43)
--- NOTE | 2023-09-08 13:04 | P.PN ---
Subjective Date of Service: 09/08/23 Chief Complaint: Seizure Subjective: No new changes, Improving (still having breakthrough seizures.) Physical Examination - Vital Signs Temperature: 97.3 F Blood Pressure: 93/58 Pulse: 84 Respirations: 14 Pulse Ox (%): 96 - Physical Exam General: Alert HEENT: Atraumatic Neck: Supple Respiratory: Normal air movement Cardiovascular: Regular rate/rhythm, Normal S1 S2 Gastrointestinal: Non-distended Assessment And Plan - Plan Assessment and Plan - Problems (Diagnosis) (1) Seizures Current Visit: No Status: Acute Plan: still having repeat episodes of seizure this morning. Has been started on IV Keppra, oral carbamazepine and has as needed lorazepam on board. we will continue above meds. We will obtain EEG. neurology eval done, adjustments and rcommendations noted. Seizure precautions to be continued. (2) Asthma Current Visit: Yes Status: Chronic Plan: Continue bronchodilators as needed Monitor closely (3) History of hypertension Current Visit: Yes Status: Chronic Plan: Patient is borderline hypotensive at this time We will continue to hold antihypertensives for now. We will follow vitals per unit protocol Discharge Plan: Home when cleared by neurology. Plan to discharge in: next 24 Hours if seizure free as per neurology recommendations. - Advance Directives Does patient have a Living Will: No Does patient have a Durable POA for Healthcare: No CODE STATUS: Full code.
--- NOTE | 2023-09-08 14:18 | EKG ---
Test Date: 2023-09-05 Test Time: 19:25:21 Brand Executive: ZEUS MEASUREMENT RESULTS: Intervals: Rate: 95 GA: 166 QRSD: 80 QT: 362 QTc: 454 [place]: P: 54 GA: 166 QRS: 84 T: 26 INTERPRETIVE STATEMENTS: Normal sinus rhythm with sinus arrhythmia Normal ECG Compared to ECG 05/11/2023 11:14:54 No significant changes Electronically Signed On 09-08-23 14:09:51 FACTORY SUPERVISOR by Isai Bailey
[2023-09-08] MEDS: ONDANSETRON 4 MG/2 ML VIAL IV PRN (20:57)
[2023-09-09] MEDS: MORPHINE 2 MG/ML SYR IV PRN ×3 (03:21→16:40)
[2023-09-09] MEDS: D5 0.45 NS 1,000 ML IV SCH ×3 (05:00→23:29)
[2023-09-09] MEDS: DIPHENHYDRAMINE 25 MG TAB/CAP PO SCH ×2 (08:57→22:01)
[2023-09-09] MEDS: levETIRAcetam 500 MG TAB PO SCH ×2 (08:57→21:10)
[2023-09-09] MEDS: GABAPENTIN 300 MG CAP PO SCH ×3 (08:57→21:10)
[2023-09-09] MEDS: FUROSEMIDE 40 MG TABLET PO SCH (08:57)
[2023-09-09] MEDS: PANTOPRAZOLE 40MG TABLET PO SCH (08:57)
[2023-09-09] MEDS: carBAMazepine 200 MG TAB PO SCH ×2 (08:58→21:09)
[2023-09-09] MEDS: ONDANSETRON 4 MG/2 ML VIAL IV PRN ×2 (11:25→16:56)
--- NOTE | 2023-09-09 14:24 | P.PN ---
Subjective Date of Service: 09/09/23 Chief Complaint: Seizure Subjective: No new changes, Improving Physical Examination - Vital Signs Temperature: 98.3 F Blood Pressure: 117/56 Pulse: 102 Respirations: 16 Pulse Ox (%): 100 - Physical Exam General: Alert HEENT: Atraumatic Neck: Supple Respiratory: Normal air movement Cardiovascular: Regular rate/rhythm, Normal S1 S2 Gastrointestinal: Soft and benign Musculoskeletal: No swelling Neurological: Normal speech Assessment And Plan - Plan Assessment and Plan - Problems (Diagnosis) (1) Seizures Current Visit: No Status: Acute Plan: still having repeat episodes of seizure in the las 24hrs. Has been started on oral Keppra, oral carbamazepine and has as needed lorazepam on board. we will continue above meds. We will obtain EEG. neurology eval done, adjustments and recommendations noted. Seizure precautions to be continued. (2) Asthma Current Visit: Yes Status: Chronic Plan: Continue bronchodilators as needed Monitor closely (3) History of hypertension Current Visit: Yes Status: Chronic Plan: BP reads are stable. We will follow vitals per unit protocol Discharge Plan: Home when cleared by neurology. Plan to discharge in: next 24 Hours if seizure free as per neurology recommendations. - Advance Directives Does patient have a Living Will: No Does patient have a Durable POA for Healthcare: No CODE STATUS: Full code.
[2023-09-09] MEDS: LORazepam 2 MG/ML VIAL IV PRN (15:40)
[2023-09-09 22:32] VITALS: O2SAT 98
[2023-09-10] MEDS: D5 0.45 NS 1,000 ML IV SCH ×2 (00:42→08:24)
[2023-09-10] MEDS: DIPHENHYDRAMINE 25 MG TAB/CAP PO SCH ×4 (04:00→20:18)
[2023-09-10] MEDS: ONDANSETRON 4 MG/2 ML VIAL IV PRN (04:33)
[2023-09-10] MEDS: MORPHINE 2 MG/ML SYR IV PRN ×2 (04:33→16:12)
[2023-09-10] MEDS ORDERED: FENTANYL CITR 100 MCG/2 ML IV ONE (05:57)
[2023-09-10 06:14] VITALS: TEMP 97.9
--- NOTE | 2023-09-10 06:27 | P.PN ---
Date of Service: 09/10/23 Subjective: Physical Exam: Vitals: reviewed GEN: Alert, oriented, NAD HEENT: Normal conjunctiva, sclera anicteric CV: Regular rate & rhythm, no edema Pulm: Nonlabored respiraitons, clear bilaterally ABD: Soft, nontender, nondistended MSK: No joint tenderness Integumentary: No rashes Neuro: Normal speech, normal affect Problem List: Seizure Disorder Asthma h/o Hypertension Plan: continues with seizures in the last 24 hours Continue PO keppra, tegretol PRN ativan PRN pain medication Neuro consulted Seizure precautions Brochodilators as needed BP has been stable off antihypertensives
[2023-09-10] MEDS: carBAMazepine 200 MG TAB PO SCH ×2 (08:19→20:17)
[2023-09-10] MEDS: levETIRAcetam 500 MG TAB PO SCH ×2 (08:19→20:18)
[2023-09-10] MEDS: PANTOPRAZOLE 40MG TABLET PO SCH (08:20)
[2023-09-10] MEDS: GABAPENTIN 300 MG CAP PO SCH ×3 (08:20→20:18)
[2023-09-10] MEDS: FUROSEMIDE 40 MG TABLET PO SCH (08:21)
[2023-09-10] MEDS: LORazepam 2 MG/ML VIAL IV PRN (14:41)
[2023-09-10 16:15] VITALS: BP 109/61
== END 2023-09-10 21:42 | disposition home or self-care (01) | DRG 101 ==
LOC: ER 17:47 → ERHOLD 20:35 → 2ND 09-06 15:39 → UNDODISIN 09-10 10:45
PROVIDERS: ADMIT Family Medicine; ATTEND Hospitalist
DX: G40.901 Epilepsy, unspecified, not intractable, with status epilepticus (principal); I10 Essential (primary) hypertension; J45.909 Unspecified asthma, uncomplicated; Z88.5 Allergy status to narcotic agent; Z88.8 Allergy status to other drugs, medicaments and biological substances; Z79.899 Other long term (current) drug therapy
CPT/HCPCS: 36415; 70450; 80053; 82947; 83735; 84703; 85025; 93005; 94760; 96374; 96375; 99285; J1200; J1953; J2270; J2405; J3010; J7030; J7799

== ENCOUNTER 2023-09-15 23:46 | Emergency (ER) | payer OTHER ==
--- OUTSIDE RECORDS SUMMARY | 2023-09-15 23:55 | XMS REPORT | Continuity of Care Document ---
:1990 Author Organization [facility] t Address [address] [facility] [address] [place] [address] Care Team Providers Name Role Phone Mitali Raza Primary Care Physician ISHAN BENNETT Attending Clinician Unavailable JOSE ANGEL PERALTA Attending Clinician Unavailable JOSE ANGEL PERALTA Attending Clinician Unavailable Ashleigh Mcwilliams MD Attending Clinician NILA VILLAGRAN Attending Clinician Unavailable Dulce Weeks MD Attending Clinician Eugene LLANOS, eZlda Hernandez Attending Clinician Unavailable DULCE WEEKS Attending Clinician Unavailable Doctor Unassigned, [place] Attending Clinician Unavailable Khloe Mayen MA Attending Clinician Unavailable Prisca Vilchis Attending Clinician Unavailable Cyrus Shultz MD Attending Clinician CYRUS SHULTZ Attending Clinician Unavailable Pob, [facility] Main Attending Clinician Unavailable JANIS Attending Clinician Unavailable Jade STEINER, Brett Attending Clinician Dannielle STEINER, Edgardo Hamilton Attending Clinician [phone] Trevor STEINER, Marylu Rodgers Attending Clinician MARYLU TIWARI Attending Clinician Unavailable Amanda ROPER OPERATOR, Nila Attending Clinician ZELDA FREEMAN Attending Clinician Unavailable AIDAN REYNOSO Attending Clinician Unavailable Nurse, [facility] Pob Immunization Attending Clinician Unavailable Aidan Reynoso DO Attending Clinician Bakari STEINER, Gisell Attending Clinician Unknown, Attending Attending Clinician Unavailable UNKNOWN, ATTENDING Attending Clinician Unavailable Vanessa Marshall Attending Clinician Zelda Freeman MD Attending Clinician [phone] Lab, [facility] Fam Pob I Attending Clinician [...] Number Effective Date Expiration Date Janes henriquez [facility] [id number] 2019 [facility] MEDICAID 00:00:00 AYAD VILLASENOR FROM [id number] 2022 [facility] 00:00:00 [facility] [id number] CHOICE (MEDICAID REPLACEMENT - HMO) [place] [id number] [place]ICA[place] Problems Condition Condition Condition Status Onset Resolution Last Treating Co mments Source Name Details Category Date Date Treatment Clinician Date Acute Acute Disease Active Univers vaginitis vaginitis 07-24 ity of 00:00: [address] Branch Ingrown Ingrown Disease Active Univers hair hair 07-24 ity of 00:00: [place] [facility] Oral Oral Disease Active Univers contracept contracept 07-24 it y of ghislaine pill ghislaine pill 00:00: [place] surveillan surveillan 00 Me dical ce ce Branch Screening Screening Disease Active Uni vers for for 07-24 [place] of malignant malignant 00:[place] ne[place] ne[place] 00 Medica l of the of the Branch cervix cervix History of History of Disease Active U nivers epilepsy epilepsy 07-24 ity of 00:00: [place] 00 Medical Branch Morbid Morbid Disease Active Univers obesity obesity 12-29 ity of with body with body 00:00[place] mass index mass index 00 Me dical of of Branch 40.0-49.9 40.0-49.9 Screening Screening Disease Active Uni vers examinatio examinatio 11-19 it y of n for n for 00:00: [place] venereal venereal 00 Medica l disease disease Branch Lipid Lipid Disease Active Univers disorder disorder - ity of 00:00: [place] [facility] Thickened Thickened Disease Active Uni vers endometriu endometriu - it y of m m 00:00: [place] [facility] Menorrhagi Menorrhagi Disease Active U guillaumeers a with a with 10-31 ity of irregular irregular 00:00[place] cycle cycle [place] Pain Pain Disease Active 2021-10 Univers pelvic pelvic 2-21 ity of 00:00: [place] [facility] History of History of Disease Active 2021-10 U annette ovarian ovarian 2-21 ity of cyst cyst 00:00: [place] [facility] Patient Patient Disease Active 2021-10 Univers desires desires 2-21 it[place] of 00:00: [place] [facility] [place] Vaping Vaping Disease Active 2021-10 Univers 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 ity of dependence dependence 00:00: [place] , , 00 Medical non-tobacc non-tobacc Br anch o product o product BMI BMI Disease Active 2021-10 Univers 40.0-44.9, 40.0-44.9, 2-21 it y of adult adult 00:00: Medical Branch 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 2-21 it y of y of shape y of shape 00:00: [place] of left of left 00 Medical external external Branch ear ear Status Status Disease Active [facility] epilepticu epilepticu 2-20 [facility] 00:00: Medical [address] [place] [address] UTI due to UTI due to Disease Active [facility] trichomona trichomona 2-20 [facility] kes s s 00:00: Medical vaginalis vaginalis 00 Cent er Status Status Disease Active Univers epilepticu epilepticu 2-19 it y of s s 00:00: [place] [facility] Epilepsy Epilepsy Disease Recurre [facility]: [address] Cough Cough Disease Active Univers 2-14 ity of 00:00: [place] [facility] Congestion Congestion Disease Active U nivers of nasal of nasal 2-14 ity of sinus sinus 00:00: [place] [facility] Nausea Nausea Disease Active Univers 2-14 ity of 00:00: [place] [facility] Acute Acute Disease Active Univers otitis otitis 2-14 ity of externa of externa of 00:00: [place] right ear, right ear, 00 Me dical unspecifie unspecifie Br anch d type d type Upper Upper Disease Active Univers respirator respirator 2-14 it y of y tract y tract 00:00: [place] infection, infection, 00 Me dical unspecifie unspecifie Br anch d type d type Gastroesop Gastroesop Disease Active U nivers hageal hageal 2-14 ity of reflux reflux 00:00: [place] disease disease 00 Medical without without Branch esophagiti esophagiti s s BMI BMI Disease Active Univers 38.0-38.9, 38.0-38.9, 9-27 it y of adult adult 00:00: [place] [facility] Irregular Irregular Disease Active Uni vers menstrual menstrual 3-12 ity of cycle cycle 00:00: [place] [facility] Asthma, Asthma, Disease Active Univers unspecifie unspecifie 4-23 it y of d asthma d asthma 00:00: [place] severity, severity, 00 Medi chloé unspecifie unspecifie Br anch d whether d whether complicate complicate d, d, unspecifie unspecifie d whether d whether persistent persistent Anxiety Anxiety Disease Active Univers 6-24 ity of 00:00: [place] 00 Medical Branch Essential Essential Disease Active Uni vers hypertensi hypertensi 624 it y of on on 00:00: [place] 00 Medical Branch Other Other Disease Active [...] upper 24 ity of abdomen abdomen 00:00: [place] 00 Medical Branch Allergies, Adverse Reactions, Alerts [...] Univers EPINE INGREDI 2-19 ity of 00:00: [place] [facility] FOSPHENY DRUG Active ITCHING Univers TOIN INGREDI 2-19 ity of 00:00: [place] [facility] CARBAMAZ Allergy Active High Sob [facility] EPINE 2-19 [facility] 00:[facility]: Medical 00 Center FOSPHENY Allergy Active Itching [facility] TOIN 2-19 [facility] 00:00: Medical 00 Center [place] Drug Active Hives, Can take [facility] Allergy Itching, 04-20 aspirin [facility] Rash, 00:00: and Medical Shortness Of ibuprofen C enter Breath without problem. KETOROLA DRUG Active High Hives Univers C INGREDI 04-20 ity of 00:00: [place] 00 Medical Branch [place] Propensi Active Shortness of Can hsay e Univers c ty to Breath - aspirin ity of adverse 00:00: and [place] reaction 00 ibuprofen Medic al s without Branch problem. KETOROLA Allergy Active High Hives [facility] 6[facility]23 [facility] 00:[facility]: Medical 00 Center Social History Social Habit Start Date Stop Date Quantity Comments Source History of tobacco 2012-04-20 Passive smoker Un iversity of use 00:00:00 [facility] Sexual orientation [facility] SDOH [facility] Alcohol Std Drinks Medica l Center History SDOH [facility] Alcohol Binge Medical Jatinder ter History SDOH [facility] Alcohol Comment Medical C enter Exposure to 2022-12-22 2023-01-01 Not sure University of SARS-CoV-2 (event) 00:00:00 11:43:00 [facility] Tobacco use and 2022-10-18 2022-10-18 Smokeless Universit y of exposure 00:00:00 00:00:00 tobacco non-user [facility] [place] [facility] Tobacco Comment 2022-10-18 2022-10-18 3-4 ciggs a day Univ ersity of 00:00:00 00:00:00 [facility] Alcohol intake 2021-12-18 2021-12-[address] [facility] 00:00:00 00:00:00 non-drinker Medical Cente r (finding) History SDOH 2021-12-18 2021-12-[address] [facility] Alcohol Frequency - 00:00:00 00:00:00 Medic al Center How often do you have a drink containing alcohol? History of Social 2021-07-29 2021-07-29 Univers ity of function 00:00:00 00:00:00 [facility] Sex Assigned At [address] [facility] 00:00:00 00:00:00 Medical Center Smoking Status Start Date Stop Date Source Ex-smoker 2022-10-18 00:00:00 2022-10-18 00:00:00 Universi ty of [facility] Never smoked tobacco [facility] Center Light tobacco smoker 2019-01-07 00:00:00 Univers ity of [facility] Medications Ordered Filled Start Stop Current Ordering Indication Dosage Frequency Signature Comments Components Source Medication Medication Date Date Medication? Clinician (SIG) Name Name metroNIDAZO 202- Yes [id number] 500mg Take 1 Univers LE (FLAGYL) 07-27 [...] 14:43: [place] ORAL) Medical Branch levonorgest Yes [id number] 1{tbl} Take 1 Univers rel-ethinyl - tablet by ity of estradiol 00:00: [place] 0.15 mg-30 00 the Medical [facility] () morning. Branch per tablet fluconazole Yes [id number] 200mg Take 1 Univers 200 mg 9-26 tablet by ity of tablet 00:00: mouth [place] 00 every 3 Medical (three) Branch days. triamcinolo Yes [id number] Apply to Univers ne 07-24 area(s) 2 ity of acetonide 00:00: (two) [place] 0.1 % cream 00 times Medical daily. Branch levonorgest Yes [id number] 1{tbl} Take 1 Univers rel-ethinyl 9-26 tablet by ity of estradiol 00:00: [place] 0.15 mg-30 00 the Medical [facility] () morning. Branch per tablet fluconazole Yes [id number] 200mg Take 1 Univers 200 mg 9-26 tablet by ity of tablet 00:00: mouth [place] 00 every 3 Medical (three) Branch days. triamcinolo 2023-0 Yes [id number] Apply to [facility] 9- area(s) 2 ity of acetonide 00:00: (two) [place] 0.1 % cream 00 times Medical daily. Branch levonorgest 3-0 Yes [id number] 1{tbl} Take 1 Univers rel-ethinyl 9-26 tablet by ity of estradiol 00:00: [place] 0.15 mg-30 00 the Medical [facility] () morning. Branch per tablet fluconazole 2023-0 Yes [id number] 200mg Take 1 Univers 200 mg 9-26 tablet by ity of tablet 00:00: mouth [place] 00 every 3 Medical (three) Branch days. triamcinolo 2023-0 Yes [id number] Apply to [facility] -26 area(s) 2 ity of acetonide 00:00: (two) [place] 0.1 % cream 00 times Medical daily. Branch levonorgest 3-0 Yes [id number] 1{tbl} Take 1 Univers rel-ethinyl 9-26 tablet by ity of estradiol 00:00: [place] 0.15 mg-30 00 the Medical [facility] () morning. Branch per tablet fluconazole 3-0 Yes [id number] 200mg Take 1 Univers 200 mg 9-26 tablet by ity of tablet 00:00: mouth [place] 00 every 3 Medical (three) Branch days. triamcinolo 2023-0 Yes [id number] Apply to [facility] area(s) 2 ity of acetonide 00:00: (two) [place] 0.1 % cream 00 times Medical daily. Branch omeprazole 2023-0 Yes Univers 40 mg 9-24 ity of capsule 00:00: [place] 00 Medical Branch omeprazole 2023-0 Yes Univers 40 mg 9-24 ity of capsule 00:00: [place] 00 Medical Branch omeprazole 2023-0 Yes Univers 40 mg 9-24 ity of capsule 00:00: [place] 00 Medical Branch omeprazole 2023-0 Yes Univers 40 mg 9-24 ity of capsule 00:00: [place] 00 Medical Branch valsartan-h 2023-0 Yes 1{tbl} Take 1 Un brad ydrochlorot 8-29 tablet by ity of hiazide 00:00: mouth in [place] 160-25 mg 00 the Medical per tablet morning. [facility] valsartan-h 2023-0 Yes 1{tbl} Take 1 Un brad ydrochlorot 8-29 tablet by ity of hiazide 00:00: mouth in [place] 160-25 mg 00 the Medical per tablet morning. [facility] valsartan-h 2023-0 Yes 1{tbl} Take 1 Un brad ydrochlorot 8-29 tablet by ity of hiazide 00:00: mouth in [place] 160-25 mg 00 the Medical per tablet morning. [facility] valsartan-h 2023-0 Yes 1{tbl} Take 1 Un brad ydrochlorot 8-29 tablet by ity of hiazide 00:00: mouth in [place] 160-25 mg 00 the Medical per tablet morning. [facility] furosemide 2023-0 Yes 40mg Take 1 Unive rs 40 mg 8-24 tablet by ity of tablet 00:00: mouth in [place] 00 the Medical morning. Branch furosemide 2023-0 Yes 40mg Take 1 Unive rs 40 mg 8-24 tablet by ity of tablet 00:00: mouth in [place] 00 the Medical morning. Branch furosemide 2023-0 Yes 40mg Take 1 Unive rs 40 mg 8-24 tablet by ity of tablet 00:00: mouth in [place] 00 the Medical morning. Branch furosemide 2023-0 Yes 40mg Take 1 Unive rs 40 mg 8-24 tablet by ity of tablet 00:00: mouth in [place] 00 the Medical morning. Branch OZEMPIC 2023-0 [...] WEEK FOR Branch 28 DAYS. ibuprofen 0 2023- No [id number] 600mg U nivers (IBU) 3-03 03-04 ity of tablet 600 16:15: 04:14 [place] mg 00 :00 Medical Branch Norethindro 2022-0 Yes [id number] 1{tbl} Take 1 Univers ne 1-18 tablet by ity of Acet-Ethiny 00:00: mouth in [place] l Est 00 the Medical (. Branch ,) 1.5-30 mg-mcg per tablet ibuprofen 2022-0 Yes [id number] 800mg Take 1 Univers 800 mg 1-18 tablet by ity of tablet 00:00: mouth [place] 00 every 6 Medical (six) Branch hours as needed for Pain (scale 4-6). Norethindro 2022-0 Yes [id number] 1{tbl} Take 1 Univers ne 1-18 tablet by ity of Acet-Ethiny 00:00: mouth in [place] l Est 00 the Medical (. Branch ,) 1.5-30 mg-mcg per tablet ibuprofen 2022-0 Yes [id number] 800mg Take 1 Univers 800 mg 1-18 tablet by ity of tablet 00:00: mouth [place] 00 every 6 Medical (six) Branch hours as needed for Pain (scale 4-6). Norethindro 2022-0 Yes [id number] 1{tbl} Take 1 Univers ne 1-18 tablet by ity of Acet-Ethiny 00:00: mouth in [place] l Est 00 the Medical (. Branch ,) 1.5-30 mg-mcg per tablet ibuprofen 2022-0 Yes [id number] 800mg Take 1 Univers 800 mg 1-18 tablet by ity of tablet 00:00: mouth [place] 00 every 6 Medical (six) Branch hours as needed for Pain (scale 4-6). Norethindro 2022-0 Yes [id number] 1{tbl} Take 1 Univers ne 1-18 tablet by ity of Acet-Ethiny 00:00: mouth in [place] l Est 00 the Medical (. Branch ,) 1.5-30 mg-mcg per tablet ibuprofen 2022-0 Yes [id number] 800mg Take 1 Univers 800 mg 1-18 tablet by ity of tablet 00:00: mouth [place] 00 every 6 Medical (six) Branch hours as needed for Pain (scale 4-6). Norethindro 2022-0 Yes [id number] 1{tbl} Take 1 Univers ne 1-18 tablet by ity of Acet-Ethiny 00:00: mouth in [place] l Est 00 the Medical (. Branch ,) 1.5-30 mg-mcg per tablet ibuprofen 2022-0 Yes [id number] 800mg Take 1 Univers 800 mg 1-18 tablet by ity of tablet 00:00: mouth [place] 00 every 6 Medical (six) Branch hours as needed for Pain (scale 4-6). Norethindro 2022-0 Yes [id number] 1{tbl} Take 1 Univers ne 1-18 tablet by ity of Acet-Ethiny 00:00: mouth in [place] l Est 00 the Medical (. Branch ,) 1.5-30 mg-mcg per tablet ibuprofen 2022-0 Yes [id number] 800mg Take 1 Univers 800 mg 1-18 tablet by ity of tablet 00:00: mouth [place] 00 every 6 Medical (six) Branch hours as needed for Pain (scale 4-6). Norethindro 3-0 Yes [id number] 1{tbl} Take 1 Univers ne 1-18 tablet by ity of Acet-Ethiny 00:00: mouth in [place] l Est 00 the Medical (. Branch ,) 1.5-30 mg-mcg per tablet ibuprofen 2022-0 Yes [id number] 800mg Take 1 Univers 800 mg 1-18 tablet by ity of tablet 00:00: mouth [place] 00 every 6 Medical (six) Branch hours as needed for Pain (scale 4-6). Norethindro 3-0 Yes [id number] 1{tbl} Take 1 Univers ne 1-18 tablet by ity of Acet-Ethiny 00:00: mouth in [place] l Est 00 the Medical (. Branch ,) 1.5-30 mg-mcg per tablet ibuprofen 2022-0 Yes [id number] 800mg Take 1 Univers 800 mg 1-18 tablet by ity of tablet 00:00: mouth [place] 00 every 6 Medical (six) Branch hours as needed for Pain (scale 4-6). Norethindro 3-0 Yes [id number] 1{tbl} Take 1 Univers ne 1-18 tablet by ity of Acet-Ethiny 00:00: mouth in [place] l Est 00 the Medical (. Branch ,) 1.5-30 mg-mcg per tablet ibuprofen 2022-0 Yes [id number] 800mg Take 1 Univers 800 mg 1-18 tablet by ity of tablet 00:00: mouth [place] 00 every 6 Medical (six) Branch hours as needed for Pain (scale 4-6). Norethindro 3-0 Yes [id number] 1{tbl} Take 1 Univers ne 1-18 tablet by ity of Acet-Ethiny 00:00: mouth in [place] l Est 00 the Medical (. Branch ,) 1.5-30 mg-mcg per tablet ibuprofen 2022-0 Yes [id number] 800mg Take 1 Univers 800 mg 1-18 tablet by ity of tablet 00:00: mouth [place] 00 every 6 Medical (six) Branch hours as needed for Pain (scale 4-6). Norethindro 3-0 Yes [id number] 1{tbl} Take 1 Univers ne 1-18 tablet by ity of Acet-Ethiny 00:00: mouth in [place] l Est 00 the Medical (. Branch ,) 1.5-30 mg-mcg per tablet ibuprofen 2022-0 Yes [id number] 800mg Take 1 Univers 800 mg 1-18 tablet by ity of tablet 00:00: mouth [place] 00 every 6 Medical () Branch hours as needed for Pain (scale 4-6). Norethindro 2023-0 Yes [id number] 1{tbl} Take 1 Univers ne 1-18 tablet by ity of Acet-Ethiny 00:00: mouth in [place] l Est 00 the Medical (. Branch ,) 1.5-30 mg-mcg per tablet ibuprofen 2023-0 Yes [id number] 800mg Take 1 Univers 800 mg 1-18 tablet by ity of tablet 00:00: mouth [place] 00 every 6 Medical (six) Branch hours as needed for Pain (scale 4-6). Norethindro 2023-0 Yes [id number] 1{tbl} Take 1 Univers ne 1-18 tablet by ity of Acet-Ethiny 00:00: mouth in [place] l Est 00 the Medical (. Branch ,) 1.5-30 mg-mcg per tablet ibuprofen 2023-0 Yes [id number] 800mg Take 1 Univers 800 mg 1-18 tablet by ity of tablet 00:00: mouth [place] 00 every 6 Medical (six) Branch hours as needed for Pain (scale 4-6). Norethindro 2023-0 Yes [id number] 1{tbl} Take 1 Univers ne 1-18 tablet by ity of Acet-Ethiny 00:00: mouth in [place] l Est 00 the Medical (. Branch ,) 1.5-30 mg-mcg per tablet ibuprofen 2023-0 Yes [id number] 800mg Take 1 Univers 800 mg 1-18 tablet by ity of tablet 00:00: mouth [place] 00 every 6 Medical (six) Branch hours as needed for Pain (scale 4-6). ibuprofen 2023-0 Yes [id number] 800mg Take 1 Univers 800 mg 1-18 tablet by ity of tablet 00:00: mouth [place] 00 every 6 Medical (six) Branch hours as needed for Pain (scale 4-6). ibuprofen 2023-0 Yes [id number] 800mg Take 1 Univers 800 mg 1-18 tablet by ity of tablet 00:00: mouth [place] 00 every 6 Medical (six) Branch hours as needed for Pain (scale 4-6). ibuprofen 2023-0 Yes [id number] 800mg Take 1 Univers 800 mg 1-18 tablet by ity of tablet 00:00: mouth [place] 00 every 6 Medical (six) Branch hours as needed for Pain (scale 4-6). ibuprofen 2023-0 Yes [id number] 800mg Take 1 Univers 800 mg 1-18 tablet by ity of tablet 00:00: mouth [place] 00 every 6 Medical (six) Branch hours as needed for Pain (scale 4-6). Norethindro 3-0 2023- No [id number] 1{tbl} Take 1 Univers ne -18 07-24 tablet by ity of Acet-Ethiny 00:00: 00:00 mouth in [place] l Est 00 :00 the Medical (LOESTRIN . Branch ,) 1.5-30 mg-mcg per tablet Norethindro 3-0 3- No [id number] 1{tbl} Take 1 Univers ne 18 07-24 tablet by ity of Acet-Ethiny 00:00: 00:00 mouth in [place] l Est 00 :00 the Medical (LOESTRIN morning. Branch ,) 1.5-30 mg-mcg per tablet norethindro 3-0 Yes [id number] .35mg Take 1 Univers ne (ORTHO 1-03 tablet by ity o f MICRONOR) 00:00: [place] 0.35 mg 00 the Medical tablet morning. Branch norethindro 3-0 Yes [id number] .35mg Take 1 Univers ne (ORTHO 1-03 tablet by ity o f MICRONOR) 00:00: [place] 0.35 mg 00 the Medical tablet morning. Branch norethindro 3-0 Yes [id number] .35mg Take 1 Univers ne (ORTHO 1-03 tablet by ity o f MICRONOR) 00:00: [place] 0.35 mg 00 the Medical tablet morning. Branch norethindro 3-0 2023- No [id number] .35mg Take 1 Univers ne (ORTHO 1-03 -22 tablet by ity of MICRONOR) 00:00: 00:00 mouth in [place] 0.35 mg 00 :00 the Medical tablet morning. Branch norethindro 2023-0 2023- No [id number] .35mg Take 1 Univers ne (ORTHO 1-03 -22 tablet by ity of MICRONOR) 00:00: 00:00 mouth in [place] 0.35 mg 00 :00 the Medical tablet morning. Jonnathan rileyndro 2021-10 Yes [id number] .35mg Take 1 Univers ne (ORTHO 2-21 tablet by ity o f MICRONOR) 00:00: [place] 0.35 mg 00 the Medical tablet morning. Jonnathan ruizthindro 2021-10 Yes [id number] .35mg Take 1 Univers ne (ORTHO 2-21 tablet by ity o f MICRONOR) 00:00: [place] 0.35 mg 00 the Medical tablet morning. Jonnathan rileyndro 2021-10 Yes [id number] .35mg Take 1 Univers ne (ORTHO 2-21 tablet by ity o f MICRONOR) 00:00: mouth [place] 0.35 mg 00 the Medical tablet morning. Jonnathan rileyndro 2021-10 Yes [id number] .35mg Take 1 Univers ne (ORTHO 2-21 tablet by ity o f MICRONOR) 00:00: mouth [place] 0.35 mg 00 the Medical tablet morning. Jonnathan rileyndro 2021-10 Yes [id number] .35mg Take 1 Univers ne (ORTHO 2-21 tablet by ity o f MICRONOR) 00:00: mouth [place] 0.35 mg 00 the Medical tablet morning. Jonnathan rileyndro 2021-10 Yes [id number] .35mg Take 1 Univers ne (ORTHO 2-21 tablet by ity o f MICRONOR) 00:00: mouth [place] 0.35 mg 00 the Medical tablet morning. Jonnathan norethindro 2021-10 Yes [id number] .35mg Take 1 Univers ne (ORTHO 2-21 tablet by ity o f MICRONOR) 00:00: mouth [place] 0.35 mg 00 the Medical tablet morning. Jonnathan norethindro 2021-10 Yes [id number] .35mg Take 1 Univers ne (ORTHO 2-21 tablet by ity o f MICRONOR) 00:00: [place] 0.35 mg 00 the Medical tablet morning. Jonnathan ruizthindro 2021-10 Yes [id number] .35mg Take 1 Univers ne (ORTHO 2-21 tablet by ity o f MICRONOR) 00:00: [place] 0.35 mg 00 the Medical tablet morning. Jonnathan porterro 2021-10 Yes [id number] .35mg Take 1 Univers ne (ORTHO 2-21 tablet by ity o f MICRONOR) 00:00: [place] 0.35 mg 00 the Medical tablet morning. Jonnathan porterro 2021-10- No [id number] .35mg Take 1 Univers ne (ORTHO 2-21 -22 tablet by ity of TravellutionOR) 00:00: 00:00 mouth in [place] 0.35 mg 00 :00 the Medical tablet morning. Jonnathan porterro 2021-10- No [id number] .35mg Take 1 Univers ne (ORTHO 2-21 -22 tablet by ity of Tempo AI) 00:00: 00:00 mouth in [place] 0.35 [...] needed. Max Daily Amount: 300 mg metroNIDAZO 2-0 2- No 500mg Q.5D Take [address] [facility] (FLAGYL) 2-20 - tablet [facility] 500 MG 00:00: 23:59 (500 mg Medical tablet 00 :00 total) by Center mouth 2 (two) times daily for 7 days First dose 2/20 PM. Start twice daily dosing 2 AM. HYDROcodone 2-0 2- No 1{tbl} Take [address] -acetaminop 2-20 - tablet by Maranda pathak (NORCO 00:00: 23:59 mouth Medic al 5-325) 00 :00 every 8 Center 5-325 mg (eight) per tablet hours as needed (Severe pain) for up to 2 days. Max Daily Amount: 3 tablets methylPREDN 2022-0 Yes [id number] Take by Univers ISolone 2-15 mouth ity of (MEDROL, 00:00: SEE-INSTRU [place] BAMBI,) 4 mg 00 CTIONS. Medica l tablets follow Branch package directions methylPREDN 2022-0 Yes [id number] Take by Univers ISolone 2-15 mouth ity of (MEDROL, 00:00: SEE-INSTRU [place] BAMBI,) 4 mg 00 CTIONS. Medica l tablets follow Branch package directions methylPREDN 2022-0 Yes [id number] Take by Univers ISolone 2-15 mouth ity of (MEDROL, 00:00: SEE-INSTRU [place] BAMBI,) 4 mg 00 CTIONS. Medica l tablets follow Branch package directions methylPREDN 2022-0 Yes [id number] Take by Univers ISolone 2-15 mouth ity of (MEDROL, 00:00: SEE-INSTRU [place] BAMBI,) 4 mg 00 CTIONS. Medica l tablets follow Branch package directions methylPREDN 2022-0 Yes [id number] Take by Univers ISolone 2-15 mouth ity of (MEDROL, 00:00: SEE-INSTRU [place] BAMBI,) 4 mg 00 CTIONS. Medica l tablets follow Branch package directions methylPREDN 2022-0 Yes [id number] Take by Univers ISolone 2-15 mouth ity of (MEDROL, 00:00: SEE-INSTRU [place] BAMBI,) 4 mg 00 CTIONS. Medica l tablets follow Branch package directions methylPREDN 2022-0 Yes [id number] Take by Univers ISolone 2-15 mouth ity of (MEDROL, 00:00: SEE-INSTRU [place] BAMBI,) 4 mg 00 CTIONS. Medica l tablets follow Branch package directions methylPREDN 2022-0 Yes [id number] Take by Univers ISolone 2-15 mouth ity of (MEDROL, 00:00: SEE-INSTRU [place] BAMBI,) 4 mg 00 CTIONS. Medica l tablets follow Branch package directions methylPREDN 2022-0 Yes [id number] Take by [facility] ISolone 2-15 mouth ity of (MEDROL, 00:00: SEE-INSTRU [place] BAMBI,) 4 mg 00 CTIONS. Medica l tablets follow Branch package directions methylPREDN 2022-0 Yes [id number] Take by [facility] ISolone 2-15 mouth ity of (MEDROL, 00:00: SEE-INSTRU [place] BAMBI,) 4 mg 00 CTIONS. Medica l tablets follow Branch package directions methylPREDN 2022-0 Yes [id number] Take by [facility] ISolone 2-15 mouth ity of (MEDROL, 00:00: SEE-INSTRU [place] BAMBI,) 4 mg 00 CTIONS. Medica l tablets follow Branch package directions methylPREDN 2022-0 Yes [id number] Take by [facility] ISolone 2-15 mouth ity of (MEDROL, 00:00: SEE-INSTRU [place] BAMBI,) 4 mg 00 CTIONS. Medica l tablets follow Branch package directions methylPREDN 2022-0 Yes [id number] Take by [facility] ISolone 2-15 mouth ity of (MEDROL, 00:00: SEE-INSTRU [place] BAMBI,) 4 mg 00 CTIONS. Medica l tablets follow Branch package directions methylPREDN 2022-0 Yes [id number] Take by [facility] ISolone 2-15 mouth ity of (MEDROL, 00:00: SEE-INSTRU [place]AMBI,) 4 mg 00 CTIONS. Medica l tablets follow Branch package directions methylPREDN 2022-0 Yes [id number] Take by [facility] ISolone 2-15 mouth ity of (MEDROL, 00:00: SEE-INSTRU [place]AM[place],) 4 mg 00 CTIONS. Medica l tablets follow Branch package directions methylPREDN 2022-0 Yes [id number] Take by [facility] ISolone 2-15 mouth ity of (MEDROL, 00:00: SEE-INSTRU [place]AMBI,) 4 mg 00 CTIONS. Medica l tablets follow Branch package directions methylPREDN 2022-0 Yes [id number] Take by [facility] ISolone 2-15 mouth ity of (MEDROL, 00:00: SEE-INSTRU [place]AM[place],) 4 mg 00 CTIONS. Medica l tablets follow Branch package directions methylPREDN 2022-0 Yes [id number] Take by [facility] ISolone 2-15 mouth ity of (MEDROL, 00:00: SEE-INSTRU [place]AM[place],) 4 mg 00 CTIONS. Medica l tablets follow Branch package directions methylPREDN 2022-0 Yes [id number] Take by [facility] ISolone 2-15 mouth ity of (MEDROL, 00:00: SEE-INSTRU [place]AM[place],) 4 mg 00 CTIONS. Medica l tablets follow Branch package directions methylPREDN 2022-0 Yes [id number] Take by [facility] ISolone 2-15 mouth ity of (MEDROL, 00:00: SEE-INSTRU [place],) 4 mg 00 CTIONS. Medica l tablets follow Branch package directions methylPREDN 2022-0 Yes [id number] Take by [facility] ISolone 2-15 mouth ity of (MEDROL, 00:00: SEE-INSTRU [place]AM[place],) 4 mg 00 CTIONS. Medica l tablets follow Branch package directions methylPREDN 2022-0 Yes [id number] Take by [facility] ISolone 2-15 mouth ity of (MEDROL, 00:00: SEE-INSTRU [place],) 4 mg 00 CTIONS. Medica l tablets follow Branch package directions methylPREDN 2022-0 Yes [id number] Take by [facility] ISolone 2-15 mouth ity of (MEDROL, 00:00: SEE-INSTRU [place],) 4 mg 00 CTIONS. Medica l tablets follow Branch package directions methylPREDN 2022-0 Yes [id number] Take by [facility] ISolone 2-15 mouth ity of (MEDROL, 00:00: SEE-INSTRU [place],) 4 mg 00 CTIONS. Medica l tablets follow Branch package directions methylPREDN 2022-0 Yes [id number] Take by [facility] ISolone 2-15 mouth ity of (MEDROL, 00:00: SEE-INSTRU [place],) 4 mg 00 CTIONS. Medica l tablets follow Branch package directions methylPREDN 2022-0 Yes [id number] Take by [facility] ISolone 2-15 mouth ity of (MEDROL, 00:00: SEE-INSTRU [place],) 4 mg 00 CTIONS. Medica l tablets follow Branch package directions methylPREDN 2022-0 Yes [id number] Take by [facility] ISolone 2-15 mouth ity of (MEDROL, 00:00: SEE-INSTRU [place],) 4 mg 00 CTIONS. Medica l tablets follow Branch package directions methylPREDN 2022-0 Yes [id number] Take by [facility] ISolone 2-15 mouth ity of (MEDROL, 00:00: SEE-INSTRU [place]AM[place],) 4 mg 00 CTIONS. Medica l tablets follow Branch package directions methylPREDN 2022-0 Yes [id number] Take by [facility] ISolone 2-15 mouth ity of (MEDROL, 00:00: SEE-INSTRU [place]AM[place],) 4 mg 00 CTIONS. Medica l tablets follow Branch package directions methylPREDN 2022-0 Yes [id number] Take by [facility] ISolone 2-15 mouth ity of (MEDROL, 00:00: SEE-INSTRU [place]AM[place],) 4 mg 00 CTIONS. Medica l tablets follow Branch package directions methylPREDN 2021-0 Yes [id number] Take by [facility] ISolone 2-15 mouth ity of (MEDROL, 00:00: SEE-INSTRU [place]AM[place],) 4 mg 00 CTIONS. Medica l tablets follow Branch package directions methylPREDN 2021-0 Yes [id number] Take by [facility] ISolone 2-15 mouth ity of (MEDROL, 00:00: SEE-INSTRU [place],) 4 mg 00 CTIONS. Medica l tablets follow Branch package directions methylPREDN 2021-0 Yes [id number] Take by [facility] ISolone 2-15 mouth ity of (MEDROL, 00:00: SEE-INSTRU [place]AM[place],) 4 mg 00 CTIONS. Medica l tablets follow Branch package directions methylPREDN 0 2- No [id number] Take by [facility] ISolone 2-15 -21 mouth ity of (MEDROL, 00:00: 05:59 SEE-INSTRU [place] BAMBI,) 4 mg 00 :00 CTIONS for Med ical tablets 5 days. Branch follow package directions methylPREDN 2021-0 2- No [id number] Take by [facility] ISolone 2-15 -15 mouth ity of (MEDROL, 00:00: 00:00 SEE-INSTRU [place] BAMBI,) 4 mg 00 :00 CTIONS for Med ical tablets 5 days. Branch follow package directions omeprazole 2021-2021- No [id number] 40mg Take 1 [facility] 40 mg 12-12- capsule by ity of capsule 00:00: 05:59 mouth [place] 00 :00 daily for Medical 14 days. Branch omeprazole 2021-2021- No [id number] 40mg Take 1 [facility] 40 mg -09 01- capsule by ity of capsule 00:00: 05:59 mouth [place] 00 :00 daily for Medical 14 days. Branch omeprazole 2021-0 2021- No [id number] 40mg Take 1 [facility] 40 mg -09 01- capsule by ity of capsule 00:00: 05:59 mouth [place] 00 :00 daily for Medical 14 days. Branch omeprazole 2021-2021- No [id number] 40mg Take 1 [facility] 40 mg 12-12 capsule by ity of capsule 00:00: 05:59 mouth [place] 00 :00 daily for Medical 14 days. Branch omeprazole 2021- No [id number] 40mg Take 1 [facility] 40 mg 12-12 capsule by ity of capsule 00:00: 05:59 mouth [place] 00 :00 daily for Medical 14 days. Branch bromphenira 2021- No [id number] 10mL Take 10 mL [facility] mine-pseudo 12-12 by mouth 4 i ty of ephedrine-D 00:00: 05:59 (four) [place] M (BROMFED 00 :00 times Medical DM) 2-30-10 daily as Bran ch mg/5 mL needed for syrup Congestion /Allergies for up to 10 days. ondansetron No [id number] 4mg Take 1 [facility] (ZOFRAN) 4 12-12 tablet by ity of mg tablet 00:00: 05:59 mouth [place] 00 :00 every 8 Medical (eight) Branch hours as needed for Nausea and Vomiting (N/V) for up to 10 days. ciprofloxac 2021- No [id number] 4[drp] Place 4 [facility] in-dexameth 12-12 [id number] Drops in it y of asone 00:00: 05:59 right ear [place] (CIPRODEX) 00 :00 2 (two) Medica l 0.3-0.1 % times Branch otic drops daily for 10 days. ibuprofen 2021- No [id number] 600mg Take 1 [facility] 600 mg 12-12 [id number] tablet by ity of tablet 00:00: 05:59 mouth [place] 00 :00 every 6 Medical (six) Branch hours as needed for Pain (scale 4-6) for up to 10 days. bromphenira 2021- No [id number] 10mL Take 10 mL [facility] mine-pseudo 12-12 by mouth 4 i ty of ephedrine-D 00:00: 05:59 (four) [place] M (BROMFED 00 :00 times Medical DM) 2-30-10 daily as Bran ch mg/5 mL needed for syrup Congestion /Allergies for up to 10 days. ondansetron 2021- No [id number] 4mg Take 1 [facility] (ZOFRAN) 4 12-12 tablet by ity of mg tablet 00:00: 05:59 mouth [place] 00 :00 every 8 Medical (eight) Branch hours as needed for Nausea and Vomiting (N/V) for up to 10 days. ciprofloxac 2021- No [id number] 4[drp] Place 4 [facility] in-dexameth 12-12 [id number] Drops in it y of asone 00:00: 05:59 right ear [place] (CIPRODEX) 00 :00 2 (two) Medica l 0.3-0.1 % times Branch otic drops daily for 10 days. ibuprofen 2021- No [id number] 600mg Take 1 [facility] 600 mg 12-12 [id number] tablet by ity of tablet 00:00: 05:59 mouth [place] 00 :00 every 6 Medical (six) Branch hours as needed for Pain (scale 4-6) for up to 10 days. bromphenira 2021- No [id number] 10mL Take 10 mL [facility] mine-pseudo 12-12 by mouth 4 i ty of ephedrine-D 00:00: 05:59 (four) [place] M (BROMFED 00 :00 times Medical DM) 2-30-10 daily as Bran ch mg/5 mL needed for syrup Congestion /Allergies for up to 10 days. ondansetron 2021- No [id number] 4mg Take 1 [facility] (ZOFRAN) 4 12-12 tablet by ity of mg tablet 00:00: 05:59 mouth [place] 00 :00 every 8 Medical (eight) Branch hours as needed for Nausea and Vomiting (N/V) for up to 10 days. ciprofloxac 2021- No [id number] 4[drp] Place 4 [facility] in-dexameth 12-12 [id number] Drops in it y of asone 00:00: 05:59 right ear [place] (CIPRODEX) 00 :00 2 (two) Medica l 0.3-0.1 % times Branch otic drops daily for 10 days. ibuprofen 2021- No [id number] 600mg Take 1 [facility] 600 mg 12-12 [id number] tablet by ity of tablet 00:00: 05:59 mouth [place] 00 :00 every 6 Medical (six) Branch hours as needed for Pain (scale 4-6) for up to 10 days. bromphenira 2021- No [id number] 10mL Take 10 mL [facility] mine-pseudo 12-12 by mouth 4 i ty of ephedrine-D 00:00: 05:59 (four) [place] M (BROMFED 00 :00 times Medical DM) 2-30-10 daily as Bran ch mg/5 mL needed for syrup Congestion /Allergies for up to 10 days. ondansetron 2021- No [id number] 4mg Take 1 [facility] (ZOFRAN) 4 12-12 tablet by ity of mg tablet 00:00: 05:59 mouth [place] 00 :00 every 8 Medical (eight) Branch hours as needed for Nausea and Vomiting (N/V) for up to 10 days. ciprofloxac 2021- No [id number] 4[drp] Place 4 [facility] in-dexameth 12-12 [id number] Drops in it y of asone 00:00: 05:59 right ear [place] (CIPRODEX) 00 :00 2 (two) Medica l 0.3-0.1 % times Branch otic drops daily for 10 days. ibuprofen 2021- No [id number] 600mg Take 1 [facility] 600 mg 12-12 [id number] tablet by ity of tablet 00:00: 05:59 mouth [place] 00 :00 every 6 Medical (six) Branch hours as needed for Pain (scale 4-6) for up to 10 days. bromphenira 2021- No [id number] 10mL Take 10 mL [facility] mine-pseudo 12-12 by mouth 4 i ty of ephedrine-D 00:00: 05:59 (four) [place] M (BROMFED 00 :00 times Medical DM) 2-30-10 daily as Bran ch mg/5 mL needed for syrup Congestion /Allergies for up to 10 days. ondansetron 2021- No [id number] 4mg Take 1 [facility] (ZOFRAN) 4 12-12 tablet by ity of mg tablet 00:00: 05:59 mouth [place] 00 :00 every 8 Medical (eight) Branch hours as needed for Nausea and Vomiting (N/V) for up to 10 days. ciprofloxac 2021- No [id number] 4[drp] Place 4 [facility] in-dexameth 12-12 [id number] Drops in it y of asone 00:00: 05:59 right ear [place] (CIPRODEX) 00 :00 2 (two) Medica l 0.3-0.1 % times Branch otic drops daily for 10 days. ibuprofen 2021- No [id number] 600mg Take 1 [facility] 600 mg 12-12 [id number] tablet by ity of tablet 00:00: 05:59 [...] [place] ORAL) Medical Branch cetirizine 2020-10 Yes [id number] 10mg Take 1 [facility] (ZYRTEC) 10 0-01 tablet by ity of mg tablet 00:00: mouth [place] 00 daily. Medical Branch azelastine 2020-10 Yes [id number] 1{spray Use 1 [facility] 137 mcg 0-01 } [place] in ity of (0.1 %) 00:00: each [place] nasal spray 00 nostril 2 Med ical (two) Branch times daily. Use in each nostril as directed fluticasone 2020-10 Yes [id number] 1{spray Use 1 [facility] propionate 0-01 } [place] in ity o f 50 00:00: each [place] mcg/actuati 00 nostril Medic al on nasal daily. Branch spray cetirizine 2020-10 Yes [id number] 10mg Take 1 [facility] n[facility] (ZYRTEC) 10 0-01 tablet by ity of mg tablet 00:00: mouth [place] 00 daily. Medical Branch azelastine 2020-10 Yes [id number] 1{spray Use 1 [facility] 137 mcg 0-01 } [place] in ity of (0.1 %) 00:00: each [place] nasal spray 00 nostril 2 Med ical (two) Branch times daily. Use in each nostril as directed fluticasone 2020-10 Yes [id number] 1{spray Use 1 [facility] propionate 0-01 } [place] in ity o f 50 00:00: each [place] mcg/actuati 00 nostril Medic al on nasal daily. Branch spray cetirizine 2020-10 Yes [id number] 10mg Take 1 U nivers (ZYRTEC) 10 0-01 tablet by ity of mg tablet 00:00: mouth [place] 00 daily. Medical Branch azelastine 2020-10 Yes [id number] 1{spray Use 1 [facility] 137 mcg 0-01 } [place] in ity of (0.1 %) 00:00: each [place] nasal spray 00 nostril 2 Med ical (two) Branch times daily. Use in each nostril as directed fluticasone 2020-10 Yes [id number] 1{spray Use 1 [facility] propionate 0-01 } [place] in ity o f 50 00:00: each [place] mcg/actuati 00 nostril Medic al on nasal daily. Branch spray cetirizine 2020-10 Yes [id number] 10mg Take 1 U n[facility] (ZYRTEC) 10 0-01 tablet by ity of mg tablet 00:00: mouth [place] 00 daily. Medical Branch azelastine 2020-10 Yes [id number] 1{spray Use 1 [facility] 137 mcg 0-01 } [place] in ity of (0.1 %) 00:00: each [place] nasal spray 00 nostril 2 Med ical (two) Branch times daily. Use in each nostril as directed fluticasone 2020-10 Yes [id number] 1{spray Use 1 [facility] propionate 0-01 } [place] in ity o f 50 00:00: each [place] mcg/actuati 00 nostril Medic al on nasal daily. Branch spray cetirizine 2020-10 Yes [id number] 10mg Take 1 U nivers (ZYRTEC) 10 0-01 tablet by ity of mg tablet 00:00: mouth [place] 00 daily. Medical Branch azelastine 2020-10 Yes [id number] 1{spray Use 1 [facility] 137 mcg 0-01 } [place] in ity of (0.1 %) 00:00: each [place] nasal spray 00 nostril 2 Med ical (two) Branch times daily. Use in each nostril as directed fluticasone 2020-10 Yes [id number] 1{spray Use 1 [facility] propionate 0-01 } [place] in ity o f 50 00:00: each [place] mcg/actuati 00 nostril Medic al on nasal daily. Branch spray cetirizine 2020-10 Yes [id number] 10mg Take 1 U nivers (ZYRTEC) 10 0-01 tablet by ity of mg tablet 00:00: mouth [place] 00 daily. Medical Branch azelastine 2020-10 Yes [id number] 1{spray Use 1 [facility] 137 mcg 0-01 } [place] in ity of (0.1 %) 00:00: each [place] nasal spray 00 nostril 2 Med ical (two) Branch times daily. Use in each nostril as directed fluticasone 2020-10 Yes [id number] 1{spray Use 1 [facility] propionate 0-01 } [place] in ity o f 50 00:00: each [place] mcg/actuati 00 nostril Medic al on nasal daily. Branch spray cetirizine 2020-10 Yes [id number] 10mg Take 1 U nivers (ZYRTEC) 10 0-01 tablet by ity of mg tablet 00:00: mouth [place] 00 daily. Medical Branch azelastine 2020-10 Yes [id number] 1{spray Use 1 [facility] 137 mcg 0-01 } [place] in ity of (0.1 %) 00:00: each [place] nasal spray 00 nostril 2 Med ical (two) Branch times daily. Use in each nostril as directed fluticasone 2020-10 Yes [id number] 1{spray Use 1 [facility] propionate 0-01 } [place] in ity o f 50 00:00: each [place] mcg/actuati 00 nostril Medic al on nasal daily. Branch spray cetirizine 2020-10 Yes [id number] 10mg Take 1 U nivers (ZYRTEC) 10 0-01 tablet by ity of mg tablet 00:00: mouth [place] 00 daily. Medical Branch azelastine 2020-10 Yes [id number] 1{spray Use 1 [facility] 137 mcg 0-01 } [place] in ity of (0.1 %) 00:00: each [place] nasal spray 00 nostril 2 Med ical (two) Branch times daily. Use in each nostril as directed fluticasone 2020-10 Yes [id number] 1{spray Use 1 [facility] propionate 0-01 } [place] in ity o f 50 00:00: each [place] mcg/actuati 00 nostril Medic al on nasal daily. Branch spray cetirizine 2020-10 Yes [id number] 10mg Take 1 U nivers (ZYRTEC) 10 0-01 tablet by ity of mg tablet 00:00: mouth [place] 00 daily. Medical Branch azelastine 2020-10 Yes [id number] 1{spray Use 1 [facility] 137 mcg 0-01 } [place] in ity of (0.1 %) 00:00: each [place] nasal spray 00 nostril 2 Med ical (two) Branch times daily. Use in each nostril as directed fluticasone 2020-10 Yes [id number] 1{spray Use 1 [facility] propionate 0-01 } [place] in ity o f 50 00:00: each [place] mcg/actuati 00 nostril Medic al on nasal daily. Branch spray cetirizine 2020-10 Yes [id number] 10mg Take 1 U nivers (ZYRTEC) 10 0-01 tablet by ity of mg tablet 00:00: mouth [place] 00 daily. Medical Branch azelastine 2020-10 Yes [id number] 1{spray Use 1 [facility] 137 mcg 0-01 } [place] in ity of (0.1 %) 00:00: each [place] nasal spray 00 nostril 2 Med ical (two) Branch times daily. Use in each nostril as directed fluticasone 2020-10 Yes [id number] 1{spray Use 1 [facility] propionate 0-01 } [place] in ity o f 50 00:00: each [place] mcg/actuati 00 nostril Medic al on nasal daily. Branch spray cetirizine 2020-10 Yes [id number] 10mg Take 1 U nivers (ZYRTEC) 10 0-01 tablet by ity of mg tablet 00:00: mouth [place] 00 daily. Medical Branch azelastine 2020-10 Yes [id number] 1{spray Use 1 [facility] 137 mcg 0-01 } [place] in ity of (0.1 %) 00:00: each [place] nasal spray 00 nostril 2 Med ical (two) Branch times daily. Use in each nostril as directed fluticasone 2020-10 Yes [id number] 1{spray Use 1 [facility] propionate 0-01 } [place] in ity o f 50 00:00: each [place] mcg/actuati 00 nostril Medic al on nasal daily. Branch spray cetirizine 2020-10 Yes [id number] 10mg Take 1 U nivers (ZYRTEC) 10 0-01 tablet by ity of mg tablet 00:00: mouth [place] 00 daily. Medical Branch azelastine 2020-10 Yes [id number] 1{spray Use 1 [facility] 137 mcg 0-01 } [place] in ity of (0.1 %) 00:00: each [place] nasal spray 00 nostril 2 Med ical (two) Branch times daily. Use in each nostril as directed fluticasone 2020-10 Yes [id number] 1{spray Use 1 [facility] propionate 0-01 } [place] in ity o f 50 00:00: each [place] mcg/actuati 00 nostril Medic al on nasal daily. Branch spray cetirizine 2020-10 Yes [id number] 10mg Take 1 U nivers (ZYRTEC) 10 0-01 tablet by ity of mg tablet 00:00: mouth [place] 00 daily. Medical Branch azelastine 2020-10 Yes [id number] 1{spray Use 1 [facility] 137 mcg 0-01 } [place] in ity of (0.1 %) 00:00: each [place] nasal spray 00 nostril 2 Med ical (two) Branch times daily. Use in each nostril as directed fluticasone 2020-10 Yes [id number] 1{spray Use 1 [facility] propionate 0-01 } [place] in ity o f 50 00:00: each [place] mcg/actuati 00 nostril Medic al on nasal daily. Branch spray cetirizine 2020-10 Yes [id number] 10mg Take 1 U nivers (ZYRTEC) 10 0-01 tablet by ity of mg tablet 00:00: mouth [place] 00 daily. Medical Branch azelastine 2020-10 Yes [id number] 1{spray Use 1 [facility] 137 mcg 0-01 } [place] in ity of (0.1 %) 00:00: each [place] nasal spray 00 nostril 2 Med ical (two) Branch times daily. Use in each nostril as directed fluticasone 2020-10 Yes [id number] 1{spray Use 1 [facility] propionate 0-01 } [place] in ity o f 50 00:00: each [place] mcg/actuati 00 nostril Medic al on nasal daily. Branch spray cetirizine 2020-10 Yes [id number] 10mg Take 1 U nivers (ZYRTEC) 10 0-01 tablet by ity of mg tablet 00:00: mouth [place] 00 daily. Medical Branch azelastine 2020-10 Yes [id number] 1{spray Use 1 [facility] 137 mcg 0-01 } [place] in ity of (0.1 %) 00:00: each [place] nasal spray 00 nostril 2 Med ical (two) Branch times daily. Use in each nostril as directed fluticasone 2020-10 Yes [id number] 1{spray Use 1 [facility] propionate 0-01 } [place] in ity o f 50 00:00: each [place] mcg/actuati 00 nostril Medic al on nasal daily. Branch spray cetirizine 2020-10 Yes [id number] 10mg Take 1 U nivers (ZYRTEC) 10 0-01 tablet by ity of mg tablet 00:00: mouth [place] 00 daily. Medical Branch azelastine 2020-10 Yes [id number] 1{spray Use 1 [facility] 137 mcg 0-01 } [place] in ity of (0.1 %) 00:00: each [place] nasal spray 00 nostril 2 Med ical (two) Branch times daily. Use in each nostril as directed fluticasone 2020-10 Yes [id number] 1{spray Use 1 [facility] propionate 0-01 } [place] in ity o f 50 00:00: each [place] mcg/actuati 00 nostril Medic al on nasal daily. Branch spray cetirizine 2020-10 Yes [id number] 10mg Take 1 U nivers (ZYRTEC) 10 0-01 tablet by ity of mg tablet 00:00: mouth [place] 00 daily. Medical Branch azelastine 2020-10 Yes [id number] 1{spray Use 1 [facility] 137 mcg 0-01 } [place] in ity of (0.1 %) 00:00: each [place] nasal spray 00 nostril 2 Med ical (two) Branch times daily. Use in each nostril as directed fluticasone 2020-10 Yes [id number] 1{spray Use 1 [facility] propionate 0-01 } [place] in ity o f 50 00:00: each [place] mcg/actuati 00 nostril Medic al on nasal daily. Branch spray cetirizine 2020-10 Yes [id number] 10mg Take 1 U nivers (ZYRTEC) 10 0-01 tablet by ity of mg tablet 00:00: mouth [place] 00 daily. Medical Branch azelastine 2020-10 Yes [id number] 1{spray Use 1 [facility] 137 mcg 0-01 } [place] in ity of (0.1 %) 00:00: each [place] nasal spray 00 nostril 2 Med ical (two) Branch times daily. Use in each nostril as directed fluticasone 2020-10 Yes [id number] 1{spray Use 1 [facility] propionate 0-01 } [place] in ity o f 50 00:00: each [place] mcg/actuati 00 nostril Medic al on nasal daily. Branch spray cetirizine 2020-10 Yes [id number] 10mg Take 1 U nivers (ZYRTEC) 10 0-01 tablet by ity of mg tablet 00:00: mouth [place] 00 daily. Medical Branch azelastine 2020-10 Yes [id number] 1{spray Use 1 [facility] 137 mcg 0-01 } [place] in ity of (0.1 %) 00:00: each [place] nasal spray 00 nostril 2 Med ical (two) Branch times daily. Use in each nostril as directed fluticasone 2020-10 Yes [id number] 1{spray Use 1 [facility] propionate 0-01 } [place] in ity o f 50 00:00: each [place] mcg/actuati 00 nostril Medic al on nasal daily. Branch spray cetirizine 2020-10 Yes [id number] 10mg Take 1 U nivers (ZYRTEC) 10 0-01 tablet by ity of mg tablet 00:00: mouth [place] 00 daily. Medical Branch azelastine 2020-10 Yes [id number] 1{spray Use 1 [facility] 137 mcg 0-01 } [place] in ity of (0.1 %) 00:00: each [place] nasal spray 00 nostril 2 Med ical (two) Branch times daily. Use in each nostril as directed fluticasone 2020-10 Yes [id number] 1{spray Use 1 [facility] propionate 0-01 } [place] in ity o f 50 00:00: each [place] mcg/actuati 00 nostril Medic al on nasal daily. Branch spray cetirizine 2020-10 Yes [id number] 10mg Take 1 U nivers (ZYRTEC) 10 0-01 tablet by ity of mg tablet 00:00: mouth [place] 00 daily. Medical Branch azelastine 2020-10 Yes [id number] 1{spray Use 1 [facility] 137 mcg 0-01 } [place] in ity of (0.1 %) 00:00: each [place] nasal spray 00 nostril 2 Med ical (two) Branch times daily. Use in each nostril as directed fluticasone 2020-10 Yes [id number] 1{spray Use 1 [facility] propionate 0-01 } [place] in ity o f 50 00:00: each [place] mcg/actuati 00 nostril Medic al on nasal daily. Branch spray cetirizine 2020-10 Yes [id number] 10mg Take 1 U nivers (ZYRTEC) 10 0-01 tablet by ity of mg tablet 00:00: mouth [place] 00 daily. Medical Branch azelastine 2020-10 Yes [id number] 1{spray Use 1 [facility] 137 mcg 0-01 } [place] in ity of (0.1 %) 00:00: each [place] nasal spray 00 nostril 2 Med ical (two) Branch times daily. Use in each nostril as directed fluticasone 2020-10 Yes [id number] 1{spray Use 1 [facility] propionate 0-01 } [place] in ity o f 50 00:00: each [place] mcg/actuati 00 nostril Medic al on nasal daily. Branch spray cetirizine 2020-10 Yes [id number] 10mg Take 1 U nivers (ZYRTEC) 10 0-01 tablet by ity of mg tablet 00:00: mouth [place] 00 daily. Medical Branch azelastine 2020-10 Yes [id number] 1{spray Use 1 [facility] 137 mcg 0-01 } [place] in ity of (0.1 %) 00:00: each [place] nasal spray 00 nostril 2 Med ical (two) Branch times daily. Use in each nostril as directed fluticasone 2020-10 Yes [id number] 1{spray Use 1 [facility] propionate 0-01 } [place] in ity o f 50 00:00: each [place] mcg/actuati 00 nostril Medic al on nasal daily. Branch spray cetirizine 2020-10 Yes [id number] 10mg Take 1 U n[facility] (ZYRTEC) 10 0-01 tablet by ity of mg tablet 00:00: mouth [place] 00 daily. Medical Branch azelastine 2020-10 Yes [id number] 1{spray Use 1 [facility] 137 mcg 0-01 } [place] in ity of (0.1 %) 00:00: each [place] nasal spray 00 nostril 2 Med ical (two) Branch times daily. Use in each nostril as directed fluticasone 2020-10 Yes [id number] 1{spray Use 1 [facility] propionate 0-01 } [place] in ity o f 50 00:00: each [place] mcg/actuati 00 nostril Medic al on nasal daily. Branch spray cetirizine 2020-10 Yes [id number] 10mg Take 1 U nivers (ZYRTEC) 10 0-01 tablet by ity of mg tablet 00:00: mouth [place] 00 daily. Medical Branch azelastine 2020-10 Yes [id number] 1{spray Use 1 [facility] 137 mcg 0-01 } [place] in ity of (0.1 %) 00:00: each [place] nasal spray 00 nostril 2 Med ical (two) Branch times daily. Use in each nostril as directed fluticasone 2020-10 Yes [id number] 1{spray Use 1 [facility] propionate 0-01 } [place] in ity o f 50 00:00: each [place] mcg/actuati 00 nostril Medic al on nasal daily. Branch spray cetirizine 2020-10 Yes [id number] 10mg Take 1 U nivers (ZYRTEC) 10 0-01 tablet by ity of mg tablet 00:00: mouth [place] 00 daily. Medical Branch azelastine 2020-10 Yes [id number] 1{spray Use 1 [facility] 137 mcg 0-01 } [place] in ity of (0.1 %) 00:00: each [place] nasal spray 00 nostril 2 Med ical (two) Branch times daily. Use in each nostril as directed fluticasone 2020-10 Yes [id number] 1{spray Use 1 [facility] propionate 0-01 } [place] in ity o f 50 00:00: each [place] mcg/actuati 00 nostril Medic al on nasal daily. Branch spray cetirizine 2020-10 Yes [id number] 10mg Take 1 [facility] (ZYRTEC) 10 0-01 tablet by ity of mg tablet 00:00: mouth [place] 00 daily. Medical Branch azelastine 2020-10 Yes [id number] 1{spray Use 1 [facility] 137 mcg 0-01 } [place] in ity of (0.1 %) 00:00: each [place] nasal spray 00 nostril 2 Med ical (two) Branch times daily. Use in each nostril as directed fluticasone 2020-10 Yes [id number] 1{spray Use 1 [facility] propionate 0-01 } [place] in ity o f 50 00:00: each [place] mcg/actuati 00 nostril Medic al on nasal daily. Branch spray cetirizine 2020-10 Yes [id number] 10mg Take 1 [facility] (ZYRTEC) 10 0-01 tablet by ity of mg tablet 00:00: mouth [place] 00 daily. Medical Branch azelastine 2020-10 Yes [id number] 1{spray Use 1 [facility] 137 mcg 0-01 } [place] in ity of (0.1 %) 00:00: each [place] nasal spray 00 nostril 2 Med ical (two) Branch times daily. Use in each nostril as directed fluticasone 2020-10 Yes [id number] 1{spray Use 1 [facility] propionate 0-01 } [place] in ity o f 50 00:00: each [place] mcg/actuati 00 nostril Medic al on nasal daily. Branch spray cetirizine 2020-10 Yes [id number] 10mg Take 1 [facility] (ZYRTEC) 10 0-01 tablet by ity of mg tablet 00:00: mouth [place] 00 daily. Medical Branch azelastine 2020-10 Yes [id number] 1{spray Use 1 [facility] 137 mcg 0-01 } [place] in ity of (0.1 %) 00:00: each [place] nasal spray 00 nostril 2 Med ical (two) Branch times daily. Use in each nostril as directed fluticasone 2020-10 Yes [id number] 1{spray Use 1 [facility] propionate 0-01 } [place] in ity o f 50 00:00: each [place] mcg/actuati 00 nostril Medic al on nasal daily. Branch spray cetirizine 2020-10 Yes [id number] 10mg Take 1 [facility] (ZYRTEC) 10 0-01 tablet by ity of mg tablet 00:00: mouth [place] 00 daily. Medical Branch azelastine 2020-10 Yes [id number] 1{spray Use 1 [facility] 137 mcg 0-01 } [place] in ity of (0.1 %) 00:00: each [place] nasal spray 00 nostril 2 Med ical (two) Branch times daily. Use in each nostril as directed fluticasone 2020-10 Yes [id number] 1{spray Use 1 [facility] propionate 0-01 } [place] in ity o f 50 00:00: each [place] mcg/actuati 00 nostril Medic al on nasal daily. Branch spray cetirizine 2020-10 Yes [id number] 10mg Take 1 [facility] (ZYRTEC) 10 0-01 tablet by ity of mg tablet 00:00: mouth [place] 00 daily. Medical Branch azelastine 2020-10 Yes [id number] 1{spray Use 1 [facility] 137 mcg 0-01 } [place] in ity of (0.1 %) 00:00: each [place] nasal spray 00 nostril 2 Med ical (two) Branch times daily. Use in each nostril as directed fluticasone 2020-10 Yes [id number] 1{spray Use 1 [facility] propionate 0-01 } [place] in ity o f 50 00:00: each [place] mcg/actuati 00 nostril Medic al on nasal daily. Branch spray cetirizine 2020-10 Yes [id number] 10mg Take 1 [facility] (ZYRTEC) 10 0-01 tablet by ity of mg tablet 00:00: mouth [place] 00 daily. Medical Branch azelastine 2020-10 Yes [id number] 1{spray Use 1 [facility] 137 mcg 0-01 } [place] in ity of (0.1 %) 00:00: each [place] nasal spray 00 nostril 2 Med ical (two) Branch times daily. Use in each nostril as directed fluticasone 2020-10 Yes [id number] 1{spray Use 1 [facility] propionate 0-01 } [place] in ity o f 50 00:00: each [place] mcg/actuati 00 nostril Medic al on nasal daily. Branch spray cetirizine 2020-10 Yes [id number] 10mg Take 1 [facility] (ZYRTEC) 10 0-01 tablet by ity of mg tablet 00:00: mouth [place] 00 daily. Medical Branch azelastine 2020-10 Yes [id number] 1{spray Use 1 [facility] 137 mcg 0-01 } [place] in ity of (0.1 %) 00:00: each [place] nasal spray 00 nostril 2 Med ical (two) Branch times daily. Use in each nostril as directed fluticasone 2020-10 Yes [id number] 1{spray Use 1 [facility] propionate 0-01 } [place] in ity o f 50 00:00: each [place] mcg/actuati 00 nostril Medic al on nasal daily. Branch spray cetirizine 2020-10 Yes [id number] 10mg Take 1 [facility] (ZYRTEC) 10 0-01 tablet by ity of mg tablet 00:00: mouth [place] 00 daily. Medical Branch azelastine 2020-10 Yes [id number] 1{spray Use 1 [facility] 137 mcg 0-01 } [place] in ity of (0.1 %) 00:00: each [place] nasal spray 00 nostril 2 Med ical (two) Branch times daily. Use in each nostril as directed fluticasone 2020-10 Yes [id number] 1{spray Use 1 [facility] propionate 0-01 } [place] in ity o f 50 00:00: each [place] mcg/actuati 00 nostril Medic al on nasal daily. Branch spray cetirizine 2020-10 Yes [id number] 10mg Take 1 [facility] (ZYRTEC) 10 0-01 tablet by ity of mg tablet 00:00: mouth [place] 00 daily. Medical Branch azelastine 2020-10 Yes [id number] 1{spray Use 1 [facility] 137 mcg 0-01 } [place] in ity of (0.1 %) 00:00: each [place] nasal spray 00 nostril 2 Med ical (two) Branch times daily. Use in each nostril as directed fluticasone 2020-10 Yes [id number] 1{spray Use 1 [facility] propionate 0-01 } [place] in ity o f 50 00:00: each [place] mcg/actuati 00 nostril Medic al on nasal daily. Branch spray cetirizine 2020-10 Yes [id number] 10mg Take 1 [facility] (ZYRTEC) 10 0-01 tablet by ity of mg tablet 00:00: mouth [place] 00 daily. Medical Branch azelastine 2020-10 Yes [id number] 1{spray Use 1 [facility] 137 mcg 0-01 } [place] in ity of (0.1 %) 00:00: each [place] nasal spray 00 nostril 2 Med ical (two) Branch times daily. Use in each nostril as directed fluticasone 2020-10 Yes [id number] 1{spray Use 1 [facility] propionate 0-01 } [place] in ity o f 50 00:00: each [place] mcg/actuati 00 nostril Medic al on nasal daily. Branch spray cetirizine 2020-10 Yes [id number] 10mg Take 1 [facility] (ZYRTEC) 10 0-01 tablet by ity of mg tablet 00:00: mouth [place] 00 daily. Medical Branch azelastine 2020-10 Yes [id number] 1{spray Use 1 [facility] 137 mcg 0-01 } [place] in ity of (0.1 %) 00:00: each [place] nasal spray 00 nostril 2 Med ical (two) Branch times daily. Use in each nostril as directed fluticasone 2020-10 Yes [id number] 1{spray Use 1 [facility] propionate 0-01 } [place] in ity o f 50 00:00: each [place] mcg/actuati 00 nostril Medic al on nasal daily. Branch spray bromphenira 2020-10- No [id number] 5mL Take 5 mL [facility] mine-pseudo 0-01 02-14 by mouth 4 i ty of ephedrine-D 00:00: 00:00 (four) [place] as M (BROMFED 00 :00 times Medical DM) 2-30-10 daily as Bran ch mg/5 mL needed for syrup Congestion /Allergies . ibuprofen 2022- No [id number] 600mg Take 1 [facility] 600 mg 07-21-14 tablet by ity of tablet 00:00: 00:00 mouth [place] 00 :00 every 6 Medical (six) Branch hours as needed for Pain (scale 4-6). benzonatate Yes [id number] 100mg Take 1 [facility] 100 mg 9-10 capsule by ity of capsule 00:00: mouth (three) Medical times Branch daily as needed for Cough. benzonatate Yes [id number] 100mg Take 1 [facility] 100 mg 9-10 capsule by ity of capsule 00:00: mouth (three) Medical times Branch daily as needed for Cough. benzonatate Yes [id number] 100mg Take 1 [facility] 100 mg 9-10 capsule by ity of capsule 00:00: mouth (three) Medical times Branch daily as needed for Cough. benzonatate Yes [id number] 100mg Take 1 [facility] 100 mg 9-10 capsule by ity of capsule 00:00: mouth (three) Medical times Branch daily as needed for Cough. benzonatate Yes [id number] 100mg Take 1 [facility] 100 mg 9-10 capsule by ity of capsule 00:00: mouth (three) Medical times Branch daily as needed for Cough. benzonatate Yes [id number] 100mg Take 1 [facility] 100 mg 9-10 capsule by ity of capsule 00:00: mouth (three) Medical times Branch daily as needed for Cough. benzonatate Yes [id number] 100mg Take 1 [facility] 100 mg 9-10 capsule by ity of capsule 00:00: mouth (three) Medical times Branch daily as needed for Cough. benzonatate Yes [id number] 100mg Take 1 [facility] 100 mg 9-10 capsule by ity of capsule 00:00: mouth (three) Medical times Branch daily as needed for Cough. benzonatate 2021-0 Yes [id number] 100mg Take 1 [facility] 100 mg 9-10 capsule by ity of capsule 00:00: mouth (three) Medical times Branch daily as needed for Cough. benzonatate 2020-0 Yes [id number] 100mg Take 1 [facility] 100 mg 9-10 capsule by ity of capsule 00:00: mouth (three) Medical times Branch daily as needed for Cough. benzonatate 2020-0 Yes [id number] 100mg Take 1 [facility] 100 mg 9-10 capsule by ity of capsule 00:00: mouth (three) Medical times Branch daily as needed for Cough. benzonatate 2020-0 Yes [id number] 100mg Take 1 [facility] 100 mg 9-10 capsule by ity of capsule 00:00: mouth (three) Medical times Branch daily as needed for Cough. benzonatate 2020-0 Yes [id number] 100mg Take 1 [facility] 100 mg 9-10 capsule by ity of capsule 00:00: mouth (three) Medical times Branch daily as needed for Cough. benzonatate 2020-0 Yes [id number] 100mg Take 1 [facility] 100 mg 9-10 capsule by ity of capsule 00:00: mouth (three) Medical times Branch daily as needed for Cough. benzonatate 2020-0 Yes [id number] 100mg Take 1 [facility] 100 mg 9-10 capsule by ity of capsule 00:00: mouth (three) Medical times Branch daily as needed for Cough. benzonatate 2020-0 Yes [id number] 100mg Take 1 [facility] 100 mg 9-10 capsule by ity of capsule 00:00: mouth (three) Medical times Branch daily as needed for Cough. benzonatate 2020-0 Yes [id number] 100mg Take 1 [facility] 100 mg 9-10 capsule by ity of capsule 00:00: mouth (three) Medical times Branch daily as needed for Cough. benzonatate 1-0 Yes [id number] 100mg Take 1 [facility] 100 mg 9-10 capsule by ity of capsule 00:00: mouth (three) Medical times Branch daily as needed for Cough. benzonatate 2020-0 Yes [id number] 100mg Take 1 [facility] 100 mg 9-10 capsule by ity of capsule 00:00: mouth (three) Medical times Branch daily as needed for Cough. benzonatate 1-0 Yes [id number] 100mg Take 1 [facility] 100 mg 9-10 capsule by ity of capsule 00:00: mouth (three) Medical times Branch daily as needed for Cough. benzonatate 1-0 Yes [id number] 100mg Take 1 [facility] 100 mg 9-10 capsule by ity of capsule 00:00: mouth (three) Medical times Branch daily as needed for Cough. benzonatate 2020-0 Yes [id number] 100mg Take 1 [facility] 100 mg 9-10 capsule by ity of capsule 00:00: mouth (three) Medical times Branch daily as needed for Cough. benzonatate 2020-0 Yes [id number] 100mg Take 1 [facility] 100 mg 9-10 capsule by ity of capsule 00:00: mouth (three) Medical times Branch daily as needed for Cough. benzonatate 2020-0 Yes [id number] 100mg Take 1 [facility] 100 mg 9-10 capsule by ity of capsule 00:00: mouth (three) Medical times Branch daily as needed for Cough. benzonatate 2020-0 Yes [id number] 100mg Take 1 [facility] 100 mg 9-10 capsule by ity of capsule 00:00: mouth (three) Medical times Branch daily as needed for Cough. benzonatate 2020-0 Yes [id number] 100mg Take 1 [facility] 100 mg 9-10 capsule by ity of capsule 00:00: mouth (three) Medical times Branch daily as needed for Cough. benzonatate 2020-0 Yes [id number] 100mg Take 1 [facility] 100 mg 9-10 capsule by ity of capsule 00:00: mouth (three) Medical times Branch daily as needed for Cough. benzonatate 1-0 Yes [id number] 100mg Take 1 [facility] 100 mg 9-10 capsule by ity of capsule 00:00: mouth (three) Medical times Branch daily as needed for Cough. benzonatate 1-0 Yes [id number] 100mg Take 1 [facility] 100 mg 9-10 capsule by ity of capsule 00:00: mouth (three) Medical times Branch daily as needed for Cough. benzonatate 2021-0 Yes [id number] 100mg Take 1 [facility] 100 mg 9-10 capsule by ity of capsule 00:00: mouth (three) Medical times Branch daily as needed for Cough. benzonatate 2021-0 Yes [id number] 100mg Take 1 [facility] 100 mg 9-10 capsule by ity of capsule 00:00: mouth (three) Medical times Branch daily as needed for Cough. benzonatate 2021-0 Yes [id number] 100mg Take 1 [facility] 100 mg 9-10 capsule by ity of capsule 00:00: mouth (three) Medical times Branch daily as needed for Cough. benzonatate 2021-0 Yes [id number] 100mg Take 1 [facility] 100 mg 9-10 capsule by ity of capsule 00:00: mouth (three) Medical times Branch daily as needed for Cough. benzonatate 2021-0 Yes [id number] 100mg Take 1 [facility] 100 mg 9-10 capsule by ity of capsule 00:00: mouth (three) Medical times Branch daily as needed for Cough. benzonatate 2021-0 Yes [id number] 100mg Take 1 [facility] 100 mg 9-10 capsule by ity of capsule 00:00: mouth (three) Medical times Branch daily as needed for Cough. benzonatate 2021-0 Yes [id number] 100mg Take 1 [facility] 100 mg 9-10 capsule by ity of capsule 00:00: mouth (three) Medical times Branch daily as needed for Cough. benzonatate 2021-0 Yes [id number] 100mg Take 1 [facility] 100 mg 9-10 capsule by ity of capsule 00:00: mouth (three) Medical times Branch daily as needed for Cough. medroxyPROG 2020-0 Yes [id number] Take one [facility] ESTERone 4-03 by mouth ity of (PROVERA) 00:00: days one [place] 10 mg 00 through 10 Medical tablet of each Branch month beginning 02/27/20. medroxyPROG 2020-0 Yes [id number] Take one [facility] ESTERone 4-03 by mouth ity of (PROVERA) 00:00: days one [place] 10 mg 00 through 10 Medical tablet of each Branch month beginning 02/27/20. medroxyPROG 2020-0 Yes [id number] Take one [facility] ESTERone 4-03 by mouth ity of (PROVERA) 00:00: days one [place] 10 mg 00 through 10 Medical tablet of each Branch month beginning 02/27/20. medroxyPROG 2020-0 Yes [id number] Take one [facility] ESTERone 4-03 by mouth ity of (PROVERA) 00:00: days one [place] 10 mg 00 through 10 Medical tablet of each Branch month beginning 02/27/20. medroxyPROG 2020-0 Yes [id number] Take one [facility] ESTERone 4-03 by mouth ity of (PROVERA) 00:00: days one [place] 10 mg 00 through 10 Medical tablet of each Branch month beginning 02/27/20. medroxyPROG 2020-0 Yes [id number] Take one [facility] ESTERone 4-03 by mouth ity of (PROVERA) 00:00: days one [place] 10 mg 00 through 10 Medical tablet of each Branch month beginning 02/27/20. medroxyPROG 2020-0 2021- No [id number] Take one [facility] ESTERone 4-03 12-21 by mouth ity of (PROVERA) 00:00: 00:00 days one [place] as 10 mg 00 :00 through 10 Medical tablet of each Branch month beginning 02/27/20. medroxyPROG 2020-0 2021- No [id number] Take one [facility] ESTERone 4-03 12-21 by mouth ity of (PROVERA) 00:00: 00:00 days one [place] as 10 mg 00 :00 through 10 Medical tablet of each Branch month beginning 02/27/20. medroxyPROG 2020-0 2021- No [id number] Take one [facility] ESTERone 4-03 12-21 by mouth ity of (PROVERA) 00:00: 00:00 days one [place] as 10 mg 00 :00 through 10 Medical tablet of each Branch month beginning 02/27/20. amitriptyli 2019-0 Yes [id number] 25mg Take 1 [facility] ne 25 mg 3-26 tablet by ity of tablet 00:00: mouth at [place] 00 bedtime. Medical Branch metoprolol 2019-0 Yes [id number] 50mg Take 1 [facility] tartrate 50 3-26 tablet by ity of mg tablet 00:00: mouth 2 [place] 00 (two) Medical times Branch daily. amitriptyli 2020-0 Yes [id number] 25mg Take 1 [facility] ne 25 mg 3-26 tablet by ity of tablet 00:00: mouth at [place] [address] bedtime. Medical Branch metoprolol 2020-0 Yes [id number] 50mg Take 1 [facility] tartrate 50 3-26 tablet by ity of mg tablet 00:00: mouth 2 [place] (two) Medical times Branch daily. amitriptyli 2020-0 Yes [id number] 25mg Take 1 [facility] ne 25 mg 3-26 tablet by ity of tablet 00:00: mouth at [place] 00 bedtime. Medical Branch metoprolol 2020-0 Yes [id number] 50mg Take 1 [facility] tartrate 50 3-26 tablet by ity of mg tablet 00:00: mouth 2 [place] (two) Medical times Branch daily. amitriptyli 2020-0 Yes [id number] 25mg Take 1 [facility] ne 25 mg 3-26 tablet by ity of tablet 00:00: mouth at [place] [address] bedtime. Medical Branch metoprolol 2020-0 Yes [id number] 50mg Take 1 [facility] tartrate 50 3-26 tablet by ity of mg tablet 00:00: mouth 2 [place] (two) Medical times Branch daily. amitriptyli 2020-0 Yes [id number] 25mg Take 1 [facility] ne 25 mg 3-26 tablet by ity of tablet 00:00: mouth at [place] [address] bedtime. Medical Branch metoprolol 2020-0 Yes [id number] 50mg Take 1 [facility] tartrate 50 3-26 tablet by ity of mg tablet 00:00: mouth 2 [place] (two) Medical times Branch daily. amitriptyli 2020-0 Yes [id number] 25mg Take 1 [facility] ne 25 mg 3-26 tablet by ity of tablet 00:00: mouth at [place] [address] bedtime. Medical Branch metoprolol 2020-0 Yes [id number] 50mg Take 1 [facility] tartrate 50 3-26 tablet by ity of mg tablet 00:00: mouth 2 [place] (two) Medical times Branch daily. amitriptyli 2020-0 Yes [id number] 25mg Take 1 [facility] ne 25 mg 3-26 tablet by ity of tablet 00:00: mouth at [place] [address] bedtime. Medical Branch metoprolol 2020-0 Yes [id number] 50mg Take 1 [facility] tartrate 50 3-26 tablet by ity of mg tablet 00:00: mouth 2 [place] (two) Medical times Branch daily. amitriptyli 2020-0 Yes [id number] 25mg Take 1 [facility] ne 25 mg 3-26 tablet by ity of tablet 00:00: mouth at [place] bedtime. Medical Branch metoprolol 2020-0 Yes [id number] 50mg Take 1 [facility] tartrate 50 3-26 tablet by ity of mg tablet 00:00: mouth 2 [place] (two) Medical times Branch daily. amitriptyli 2020-0 Yes [id number] 25mg Take 1 [facility] ne 25 mg 3-26 tablet by ity of tablet 00:00: mouth at [place] bedtime. Medical Branch metoprolol 2020-0 Yes [id number] 50mg Take 1 [facility] tartrate 50 3-26 tablet by ity of mg tablet 00:00: mouth 2 [place] (two) Medical times Branch daily. amitriptyli 2020-0 Yes [id number] 25mg Take 1 [facility] ne 25 mg 3-26 tablet by ity of tablet 00:00: mouth at [place] [address] bedtime. Medical Branch metoprolol 2020-0 Yes [id number] 50mg Take 1 [facility] tartrate 50 3-26 tablet by ity of mg tablet 00:00: mouth 2 [place] (two) Medical times Branch daily. amitriptyli 2020-0 Yes [id number] 25mg Take 1 [facility] ne 25 mg 3-26 tablet by ity of tablet 00:00: mouth at [place] [address] bedtime. Medical Branch metoprolol 2020-0 Yes [id number] 50mg Take 1 [facility] tartrate 50 3-26 tablet by ity of mg tablet 00:00: mouth 2 [place] (two) Medical times Branch daily. amitriptyli 2020-0 Yes [id number] 25mg Take 1 [facility] ne 25 mg 3-26 tablet by ity of tablet 00:00: mouth at [place] [address] bedtime. Medical Branch metoprolol 2020-0 Yes [id number] 50mg Take 1 [facility] tartrate 50 3-26 tablet by ity of mg tablet 00:00: mouth 2 [place] (two) Medical times Branch daily. amitriptyli 2020-0 Yes [id number] 25mg Take 1 [facility] ne 25 mg 3-26 tablet by ity of tablet 00:00: mouth at [place] [address] bedtime. Medical Branch metoprolol 2020-0 Yes [id number] 50mg Take 1 [facility] tartrate 50 3-26 tablet by ity of mg tablet 00:00: mouth 2 [place] (two) Medical times Branch daily. amitriptyli 2020-0 Yes [id number] 25mg Take 1 [facility] ne 25 mg 3-26 tablet by ity of tablet 00:00: mouth at [place] [address] bedtime. Medical Branch metoprolol 2020-0 Yes [id number] 50mg Take 1 [facility] tartrate 50 3-26 tablet by ity of mg tablet 00:00: mouth 2 [place] (two) Medical times Branch daily. amitriptyli 2020-0 Yes [id number] 25mg Take 1 [facility] ne 25 mg 3-26 tablet by ity of tablet 00:00: mouth at [place] [address] bedtime. Medical Branch metoprolol 2020-0 Yes [id number] 50mg Take 1 [facility] tartrate 50 3-26 tablet by ity of mg tablet 00:00: mouth 2 [place] (two) Medical times Branch daily. amitriptyli 2020-0 Yes [id number] 25mg Take 1 [facility] ne 25 mg 3-26 tablet by ity of tablet 00:00: mouth at [place] [address] bedtime. Medical Branch metoprolol 2020-0 Yes [id number] 50mg Take 1 [facility] tartrate 50 3-26 tablet by ity of mg tablet 00:00: mouth 2 [place] (two) Medical times Branch daily. amitriptyli 2020-0 Yes [id number] 25mg Take 1 [facility] ne 25 mg 3-26 tablet by ity of tablet 00:00: mouth at [place] [address] bedtime. Medical Branch metoprolol 2020-0 Yes [id number] 50mg Take 1 [facility] tartrate 50 3-26 tablet by ity of mg tablet 00:00: mouth 2 [place] (two) Medical times Branch daily. amitriptyli 2020-0 Yes [id number] 25mg Take 1 [facility] ne 25 mg 3-26 tablet by ity of tablet 00:00: mouth at [place] [address] bedtime. Medical Branch metoprolol 2020-0 Yes [id number] 50mg Take 1 [facility] tartrate 50 3-26 tablet by ity of mg tablet 00:00: mouth 2 [place] (two) Medical times Branch daily. amitriptyli 2020-0 Yes [id number] 25mg Take 1 [facility] ne 25 mg 3-26 tablet by ity of tablet 00:00: mouth at [place] [address] bedtime. Medical Branch metoprolol 2020-0 Yes [id number] 50mg Take 1 [facility] tartrate 50 3-26 tablet by ity of mg tablet 00:00: mouth 2 [place] (two) Medical times Branch daily. amitriptyli 2020-0 Yes [id number] 25mg Take 1 [facility] ne 25 mg 3-26 tablet by ity of tablet 00:00: mouth at [place] [address] bedtime. Medical Branch metoprolol 2020-0 Yes [id number] 50mg Take 1 [facility] tartrate 50 3-26 tablet by ity of mg tablet 00:00: mouth 2 [place] (two) Medical times Branch daily. amitriptyli 2020-0 Yes [id number] 25mg Take 1 [facility] ne 25 mg 3-26 tablet by ity of tablet 00:00: mouth at [place] [address] bedtime. Medical Branch metoprolol 2020-0 Yes [id number] 50mg Take 1 [facility] tartrate 50 3-26 tablet by ity of mg tablet 00:00: mouth 2 [place] (two) Medical times Branch daily. amitriptyli 2020-0 Yes [id number] 25mg Take 1 [facility] ne 25 mg 3-26 tablet by ity of tablet 00:00: mouth at [place] [address] bedtime. Medical Branch metoprolol 2020-0 Yes [id number] 50mg Take 1 [facility] tartrate 50 3-26 tablet by ity of mg tablet 00:00: mouth 2 [place] (two) Medical times Branch daily. amitriptyli 2020-0 Yes [id number] 25mg Take 1 [facility] ne 25 mg 3-26 tablet by ity of tablet 00:00: mouth at [place] [address] bedtime. Medical Branch metoprolol 2020-0 Yes [id number] 50mg Take 1 [facility] tartrate 50 3-26 tablet by ity of mg tablet 00:00: mouth 2 [place] (two) Medical times Branch daily. amitriptyli 2020-0 Yes [id number] 25mg Take 1 [facility] ne 25 mg 3-26 tablet by ity of tablet 00:00: mouth at [place] [address] bedtime. Medical Branch metoprolol 2020-0 Yes [id number] 50mg Take 1 [facility] tartrate 50 3-26 tablet by ity of mg tablet 00:00: mouth 2 [place] (two) Medical times Branch daily. amitriptyli 2020-0 Yes [id number] 25mg Take 1 [facility] ne 25 mg 3-26 tablet by ity of tablet 00:00: mouth at [place] [address] bedtime. Medical Branch metoprolol 2020-0 Yes [id number] 50mg Take 1 [facility] tartrate 50 3-26 tablet by ity of mg tablet 00:00: mouth 2 [place] (two) Medical times Branch daily. amitriptyli 2020-0 Yes [id number] 25mg Take 1 [facility] ne 25 mg 3-26 tablet by ity of tablet 00:00: mouth at [place] [address] bedtime. Medical Branch metoprolol 2020-0 Yes [id number] 50mg Take 1 [facility] tartrate 50 3-26 tablet by ity of mg tablet 00:00: mouth 2 [place] (two) Medical times Branch daily. amitriptyli 2020-0 Yes [id number] 25mg Take 1 [facility] ne 25 mg 3-26 tablet by ity of tablet 00:00: mouth at [place] [address] bedtime. Medical Branch metoprolol 2020-0 Yes [id number] 50mg Take 1 [facility] tartrate 50 3-26 tablet by ity of mg tablet 00:00: mouth 2 [place] (two) Medical times Branch daily. amitriptyli 2020-0 Yes [id number] 25mg Take 1 [facility] ne 25 mg 3-26 tablet by ity of tablet 00:00: mouth at [place] [address] bedtime. Medical Branch metoprolol 2020-0 Yes [id number] 50mg Take 1 [facility] tartrate 50 3-26 tablet by ity of mg tablet 00:00: mouth 2 [place] (two) Medical times Branch daily. amitriptyli 2020-0 Yes [id number] 25mg Take 1 [facility] ne 25 mg 3-26 tablet by ity of tablet 00:00: mouth at [place] [address] bedtime. Medical Branch metoprolol 2020-0 Yes [id number] 50mg Take 1 [facility] tartrate 50 3-26 tablet by ity of mg tablet 00:00: mouth 2 [place] (two) Medical times Branch daily. amitriptyli 2020-0 Yes [id number] 25mg Take 1 [facility] ne 25 mg 3-26 tablet by ity of tablet 00:00: mouth at [place] [address] bedtime. Medical Branch metoprolol 2020-0 Yes [id number] 50mg Take 1 [facility] tartrate 50 3-26 tablet by ity of mg tablet 00:00: mouth 2 [place] (two) Medical times Branch daily. amitriptyli 2020-0 Yes [id number] 25mg Take 1 [facility] ne 25 mg 3-26 tablet by ity of tablet 00:00: mouth at [place] [address] bedtime. Medical Branch metoprolol 2020-0 Yes [id number] 50mg Take 1 [facility] tartrate 50 3-26 tablet by ity of mg tablet 00:00: mouth 2 [place] (two) Medical times Branch daily. amitriptyli 2020-0 Yes [id number] 25mg Take 1 [facility] ne 25 mg 3-26 tablet by ity of tablet 00:00: mouth at [place] [address] bedtime. Medical Branch metoprolol 2020-0 Yes [id number] 50mg Take 1 [facility] tartrate 50 3-26 tablet by ity of mg tablet 00:00: mouth 2 [place] (two) Medical times Branch daily. amitriptyli 2020-0 Yes [id number] 25mg Take 1 [facility] ne 25 mg 3-26 tablet by ity of tablet 00:00: mouth at [place] [address] bedtime. Medical Branch metoprolol 2020-0 Yes [id number] 50mg Take 1 [facility] tartrate 50 3-26 tablet by ity of mg tablet 00:00: mouth 2 [place] (two) Medical times Branch daily. amitriptyli 2020-0 Yes [id number] 25mg Take 1 [facility] 25 mg 3-26 tablet by [facility] of tablet 00:00: mouth at [place] [address] bedtime. Medical Branch metoprolol 2020-0 Yes [id number] 50mg Take 1 [facility] tartrate 50 3-26 tablet by [facility] of mg tablet 00:00: mouth 2 [place] (two) Medical times Branch daily. amitriptyli 2020-0 Yes [id number] 25mg Take 1 [facility] ne 25 mg 3-26 tablet by [facility] of tablet 00:00: mouth at [place] [address] bedtime. Medical Branch metoprolol 2020-0 Yes [id number] 50mg Take 1 [facility] tartrate 50 3-26 tablet by [facility] of mg tablet 00:00: mouth 2 [place] (two) Medical times Branch daily. amitriptyli 2020-0 Yes [id number] 25mg Take 1 [facility] ne 25 mg 3-26 tablet by [facility] of tablet 00:00: mouth at [place] [address] bedtime. Medical Branch metoprolol 2020-0 Yes [id number] 50mg Take 1 [facility] tartrate 50 3-26 tablet by [facility] of mg tablet 00:00: mouth 2 [place] (two) Medical times Branch daily. amitriptyli 2020-0 Yes [id number] 25mg Take 1 [facility] ne 25 mg 3-26 tablet by [facility] of tablet 00:00: mouth at [place] 00 bedtime. Medical Branch metoprolol 2020-0 Yes [id number] 50mg Take 1 [facility] tartrate 50 3-26 tablet by [facility] of mg tablet 00:00: mouth 2 [place] 00 (two) Medical times Branch daily. albuterol 2020-0 Yes [id number] 2{puff} Inhale 2 [facility] 90 2-14 Puffs ity of mcg/actuati 00:00: every 6 [place] as on inhaler 00 (six) Medical hours as Branch needed for Wheezing or Shortness of Breath. levETIRAcet 2020-0 Yes [id number] 500mg Take 1 [facility] am (KEPPRA) 2-14 tablet by ity of 500 mg 00:00: mouth 2 [place] tablet 00 (two) Medical times Branch daily. budesonide- 2020-0 Yes [id number] 2{puff} Inhale 2 [facility] formoteroL 2-14 Puffs 2 ity of 160-4.5 00:00: (two) [place] mcg/actuati 00 times Medical on inhaler daily. Branch indomethaci 2020-0 Yes [id number] 50mg Take 1 [facility] n 50 mg 2-14 capsule by it[facility] of capsule 00:00: mouth 3 [place] (three) Medical times Branch daily with meals. albuterol 2020-0 Yes [id number] 2{puff} Inhale 2 [facility] 90 2-14 Puffs ity of mcg/actuati 00:00: every 6 [place] as on inhaler 00 (six) Medical hours as Branch needed for Wheezing or Shortness of Breath. levETIRAcet 2020-0 Yes [id number] 500mg Take 1 [facility] am (KEPPRA) 2-14 tablet by ity of 500 mg 00:00: mouth 2 [place] tablet 00 (two) Medical times Branch daily. budesonide- 2020-0 Yes [id number] 2{puff} Inhale 2 [facility] formoteroL 2-14 Puffs 2 ity of 160-4.5 00:00: (two) [place] mcg/actuati 00 times Medical on inhaler daily. Branch indomethaci 2020-0 Yes [id number] 50mg Take 1 [facility] n 50 mg 2-14 capsule by [facility] of capsule 00:00: mouth 3 [place] (three) Medical times Branch daily with meals. albuterol 2020-0 Yes [id number] 2{puff} Inhale 2 [facility] 90 2-14 Puffs ity of mcg/actuati 00:00: every 6 [place] on inhaler 00 (six) Medical hours as Branch needed for Wheezing or Shortness of Breath. levETIRAcet 2020-0 Yes [id number] 500mg Take 1 [facility] am (KEPPRA) 2-14 tablet by ity of 500 mg 00:00: mouth 2 [place] tablet 00 (two) Medical times Branch daily. budesonide- 2020-0 Yes [id number] 2{puff} Inhale 2 [facility] formoteroL 2-14 Puffs 2 ity of 160-4.5 00:00: (two) [place] mcg/actuati 00 times Medical on inhaler daily. Branch indomethaci 2020-0 Yes [id number] 50mg Take 1 [facility] n 50 mg 2-14 capsule by ity of capsule 00:00: mouth 3 (three) Medical times Branch daily with meals. albuterol 2020-0 Yes [id number] 2{puff} Inhale 2 [facility] 90 2-14 Puffs ity of mcg/actuati 00:00: every 6 [place] on inhaler 00 (six) Medical hours as Branch needed for Wheezing or Shortness of Breath. levETIRAcet 2020-0 Yes [id number] 500mg Take 1 [facility] am (KEPPRA) 2-14 tablet by ity of 500 mg 00:00: mouth 2 [place] tablet 00 (two) Medical times Branch daily. budesonide- 2020-0 Yes [id number] 2{puff} Inhale 2 [facility] formoteroL 2-14 Puffs 2 ity of 160-4.5 00:00: (two) [place] mcg/actuati 00 times Medical on inhaler daily. Branch indomethaci 2020-0 Yes [id number] 50mg Take 1 [facility] n 50 mg 2-14 capsule by ity of capsule 00:00: mouth 3 [place] 00 (three) Medical times Branch daily with meals. albuterol 2020-0 Yes [id number] 2{puff} Inhale 2 [facility] 90 2-14 Puffs ity of mcg/actuati 00:00: every 6 [place] as on inhaler 00 (six) Medical hours as Branch needed for Wheezing or Shortness of Breath. levETIRAcet 2020-0 Yes [id number] 500mg Take 1 [facility] am (KEPPRA) 2-14 tablet by ity of 500 mg 00:00: mouth 2 [place] tablet 00 (two) Medical times Branch daily. budesonide- 2020-0 Yes [id number] 2{puff} Inhale 2 [facility] formoteroL 2-14 Puffs 2 ity of 160-4.5 00:00: (two) [place] mcg/actuati 00 times Medical on inhaler daily. Branch indomethaci 2020-0 Yes [id number] 50mg Take 1 [facility] n 50 mg 2-14 capsule by ity of capsule 00:00: mouth 3 [place] 00 (three) Medical times Branch daily with meals. albuterol 2020-0 Yes [id number] 2{puff} Inhale 2 [facility] 90 2-14 Puffs ity of mcg/actuati 00:00: every 6 [place] on inhaler 00 (six) Medical hours as Branch needed for Wheezing or Shortness of Breath. levETIRAcet 2020-0 Yes [id number] 500mg Take 1 [facility] am (KEPPRA) 2-14 tablet by ity of 500 mg 00:00: mouth 2 [place] tablet 00 (two) Medical times Branch daily. budesonide- 2020-0 Yes [id number] 2{puff} Inhale 2 [facility] formoteroL 2-14 Puffs 2 ity of 160-4.5 00:00: (two) [place] mcg/actuati 00 times Medical on inhaler daily. Branch indomethaci 2020-0 Yes [id number] 50mg Take 1 [facility] n 50 mg 2-14 capsule by ity of capsule 00:00: mouth 3 [place] 00 (three) Medical times Branch daily with meals. albuterol 2020-0 Yes [id number] 2{puff} Inhale 2 [facility] 90 2-14 Puffs ity of mcg/actuati 00:00: every 6 [place] on inhaler 00 (six) Medical hours as Branch needed for Wheezing or Shortness of Breath. levETIRAcet 2020-0 Yes [id number] 500mg Take 1 [facility] am (KEPPRA) 2-14 tablet by ity of 500 mg 00:00: mouth 2 [place] tablet 00 (two) Medical times Branch daily. budesonide- 2020-0 Yes [id number] 2{puff} Inhale 2 [facility] formoteroL 2-14 Puffs 2 ity of 160-4.5 00:00: (two) [place] mcg/actuati 00 times Medical on inhaler daily. Branch indomethaci 2020-0 Yes [id number] 50mg Take 1 [facility] n 50 mg 2-14 capsule by ity of capsule 00:00: mouth 3 [place] 00 (three) Medical times Branch daily with meals. albuterol 2020-0 Yes [id number] 2{puff} Inhale 2 [facility] 90 2-14 Puffs ity of mcg/actuati 00:00: every 6 [place] as on inhaler 00 (six) Medical hours as Branch needed for Wheezing or Shortness of Breath. levETIRAcet 2020-0 Yes [id number] 500mg Take 1 [facility] am (KEPPRA) 2-14 tablet by ity of 500 mg 00:00: mouth 2 [place] tablet 00 (two) Medical times Branch daily. budesonide- 2020-0 Yes [id number] 2{puff} Inhale 2 [facility] formoteroL 2-14 Puffs 2 ity of 160-4.5 00:00: (two) [place] mcg/actuati 00 times Medical on inhaler daily. Branch indomethaci 2020-0 Yes [id number] 50mg Take 1 [facility] n 50 mg 2-14 capsule by ity of capsule 00:00: mouth 3 [place] 00 (three) Medical times Branch daily with meals. albuterol 2020-0 Yes [id number] 2{puff} Inhale 2 [facility] 90 2-14 Puffs ity of mcg/actuati 00:00: every 6 [place] as on inhaler 00 (six) Medical hours as Branch needed for Wheezing or Shortness of Breath. levETIRAcet 2020-0 Yes [id number] 500mg Take 1 [facility] am (KEPPRA) 2-14 tablet by ity of 500 mg 00:00: mouth 2 [place] tablet 00 (two) Medical times Branch daily. budesonide- 2020-0 Yes [id number] 2{puff} Inhale 2 [facility] formoteroL 2-14 Puffs 2 ity of 160-4.5 00:00: (two) [place] mcg/actuati 00 times Medical on inhaler daily. Branch indomethaci 2020-0 Yes [id number] 50mg Take 1 [facility] n 50 mg 2-14 capsule by ity of capsule 00:00: mouth 3 (three) Medical times Branch daily with meals. albuterol 2020-0 Yes [id number] 2{puff} Inhale 2 [facility] 90 2-14 Puffs ity of mcg/actuati 00:00: every 6 [place] on inhaler 00 (six) Medical hours as Branch needed for Wheezing or Shortness of Breath. levETIRAcet 2020-0 Yes [id number] 500mg Take 1 [facility] am (KEPPRA) 2-14 tablet by ity of 500 mg 00:00: mouth 2 [place] tablet 00 (two) Medical times Branch daily. budesonide- 2020-0 Yes [id number] 2{puff} Inhale 2 [facility] formoteroL 2-14 Puffs 2 ity of 160-4.5 00:00: (two) [place] mcg/actuati 00 times Medical on inhaler daily. Branch indomethaci 2020-0 Yes [id number] 50mg Take 1 [facility] n 50 mg 2-14 capsule by ity of capsule 00:00: mouth 3 (three) Medical times Branch daily with meals. albuterol 2020-0 Yes [id number] 2{puff} Inhale 2 [facility] 90 2-14 Puffs ity of mcg/actuati 00:00: every 6 [place] on inhaler 00 (six) Medical hours as Branch needed for Wheezing or Shortness of Breath. levETIRAcet 2020-0 Yes [id number] 500mg Take 1 [facility] am (KEPPRA) 2-14 tablet by ity of 500 mg 00:00: mouth 2 [place] tablet 00 (two) Medical times Branch daily. budesonide- 2020-0 Yes [id number] 2{puff} Inhale 2 [facility] formoteroL 2-14 Puffs 2 ity of 160-4.5 00:00: (two) [place] mcg/actuati 00 times Medical on inhaler daily. Branch indomethaci 2020-0 Yes [id number] 50mg Take 1 [facility] n 50 mg 2-14 capsule by ity of capsule 00:00: mouth 3 [place] 00 (three) Medical times Branch daily with meals. albuterol 2020-0 Yes [id number] 2{puff} Inhale 2 [facility] 90 2-14 Puffs ity of mcg/actuati 00:00: every 6 [place] as on inhaler 00 (six) Medical hours as Branch needed for Wheezing or Shortness of Breath. levETIRAcet 2020-0 Yes [id number] 500mg Take 1 [facility] am (KEPPRA) 2-14 tablet by ity of 500 mg 00:00: mouth 2 [place] tablet 00 (two) Medical times Branch daily. budesonide- 2020-0 Yes [id number] 2{puff} Inhale 2 [facility] formoteroL 2-14 Puffs 2 ity of 160-4.5 00:00: (two) [place] mcg/actuati 00 times Medical on inhaler daily. Branch indomethaci 2020-0 Yes [id number] 50mg Take 1 [facility] n 50 mg 2-14 capsule by ity of capsule 00:00: mouth 3 [place] 00 (three) Medical times Branch daily with meals. albuterol 2020-0 Yes [id number] 2{puff} Inhale 2 [facility] 90 2-14 Puffs ity of mcg/actuati 00:00: every 6 [place] as on inhaler 00 (six) Medical hours as Branch needed for Wheezing or Shortness of Breath. levETIRAcet 2020-0 Yes [id number] 500mg Take 1 [facility] am (KEPPRA) 2-14 tablet by ity of 500 mg 00:00: mouth 2 [place] tablet 00 (two) Medical times Branch daily. budesonide- 2020-0 Yes [id number] 2{puff} Inhale 2 [facility] formoteroL 2-14 Puffs 2 ity of 160-4.5 00:00: (two) [place] mcg/actuati 00 times Medical on inhaler daily. Branch indomethaci 2020-0 Yes [id number] 50mg Take 1 [facility] n 50 mg 2-14 capsule by ity of capsule 00:00: mouth 3 [place] 00 (three) Medical times Branch daily with meals. albuterol 2020-0 Yes [id number] 2{puff} Inhale 2 [facility] 90 2-14 Puffs ity of mcg/actuati 00:00: every 6 [place] as on inhaler 00 (six) Medical hours as Branch needed for Wheezing or Shortness of Breath. levETIRAcet 2020-0 Yes [id number] 500mg Take 1 [facility] am (KEPPRA) 2-14 tablet by ity of 500 mg 00:00: mouth 2 [place] tablet 00 (two) Medical times Branch daily. budesonide- 2020-0 Yes [id number] 2{puff} Inhale 2 [facility] formoteroL 2-14 Puffs 2 ity of 160-4.5 00:00: (two) [place] mcg/actuati 00 times Medical on inhaler daily. Branch indomethaci 2020-0 Yes [id number] 50mg Take 1 [facility] n 50 mg 2-14 capsule by ity of capsule 00:00: mouth 3 [place] 00 (three) Medical times Branch daily with meals. albuterol 2020-0 Yes [id number] 2{puff} Inhale 2 [facility] 90 2-14 Puffs ity of mcg/actuati 00:00: every 6 [place] as on inhaler 00 (six) Medical hours as Branch needed for Wheezing or Shortness of Breath. levETIRAcet 2020-0 Yes [id number] 500mg Take 1 [facility] am (KEPPRA) 2-14 tablet by ity of 500 mg 00:00: mouth 2 [place] tablet 00 (two) Medical times Branch daily. budesonide- 2020-0 Yes [id number] 2{puff} Inhale 2 [facility] formoteroL 2-14 Puffs 2 ity of 160-4.5 00:00: (two) [place] mcg/actuati 00 times Medical on inhaler daily. Branch indomethaci 2020-0 Yes [id number] 50mg Take 1 [facility] n 50 mg 2-14 capsule by ity of capsule 00:00: mouth 3 [place] 00 (three) Medical times Branch daily with meals. albuterol 2020-0 Yes [id number] 2{puff} Inhale 2 [facility] 90 2-14 Puffs ity of mcg/actuati 00:00: every 6 [place] as on inhaler 00 (six) Medical hours as Branch needed for Wheezing or Shortness of Breath. levETIRAcet 2020-0 Yes [id number] 500mg Take 1 [facility] am (KEPPRA) 2-14 tablet by ity of 500 mg 00:00: mouth 2 [place] tablet 00 (two) Medical times Branch daily. budesonide- 2020-0 Yes [id number] 2{puff} Inhale 2 [facility] formoteroL 2-14 Puffs 2 ity of 160-4.5 00:00: (two) [place] mcg/actuati 00 times Medical on inhaler daily. Branch indomethaci 2020-0 Yes [id number] 50mg Take 1 [facility] n 50 mg 2-14 capsule by ity of capsule 00:00: mouth 3 00 (three) Medical times Branch daily with meals. albuterol 2020-0 Yes [id number] 2{puff} Inhale 2 [facility] 90 2-14 Puffs ity of mcg/actuati 00:00: every 6 [place] as on inhaler 00 (six) Medical hours as Branch needed for Wheezing or Shortness of Breath. levETIRAcet 2020-0 Yes [id number] 500mg Take 1 [facility] am (KEPPRA) 2-14 tablet by ity of 500 mg 00:00: mouth 2 [place] tablet 00 (two) Medical times Branch daily. budesonide- 2020-0 Yes [id number] 2{puff} Inhale 2 [facility] formoteroL 2-14 Puffs 2 ity of 160-4.5 00:00: (two) [place] mcg/actuati 00 times Medical on inhaler daily. Branch indomethaci 2020-0 Yes [id number] 50mg Take 1 [facility] n 50 mg 2-14 capsule by ity of capsule 00:00: mouth 3 (three) Medical times Branch daily with meals. albuterol 2020-0 Yes [id number] 2{puff} Inhale 2 [facility] 90 2-14 Puffs ity of mcg/actuati 00:00: every 6 [place] as on inhaler 00 (six) Medical hours as Branch needed for Wheezing or Shortness of Breath. levETIRAcet 2020-0 Yes [id number] 500mg Take 1 [facility] am (KEPPRA) 2-14 tablet by ity of 500 mg 00:00: mouth 2 [place] tablet 00 (two) Medical times Branch daily. budesonide- 2020-0 Yes [id number] 2{puff} Inhale 2 [facility] formoteroL 2-14 Puffs 2 ity of 160-4.5 00:00: (two) [place] mcg/actuati 00 times Medical on inhaler daily. Branch indomethaci 2020-0 Yes [id number] 50mg Take 1 [facility] n 50 mg 2-14 capsule by ity of capsule 00:00: mouth 3 [place] 00 (three) Medical times Branch daily with meals. albuterol 2020-0 Yes [id number] 2{puff} Inhale 2 [facility] 90 2-14 Puffs ity of mcg/actuati 00:00: every 6 [place] as on inhaler 00 (six) Medical hours as Branch needed for Wheezing or Shortness of Breath. levETIRAcet 2020-0 Yes [id number] 500mg Take 1 [facility] am (KEPPRA) 2-14 tablet by ity of 500 mg 00:00: mouth 2 [place] tablet 00 (two) Medical times Branch daily. budesonide- 2020-0 Yes [id number] 2{puff} Inhale 2 [facility] formoteroL 2-14 Puffs 2 ity of 160-4.5 00:00: (two) [place] mcg/actuati 00 times Medical on inhaler daily. Branch indomethaci 2020-0 Yes [id number] 50mg Take 1 [facility] n 50 mg 2-14 capsule by ity of capsule 00:00: mouth 3 [place] 00 (three) Medical times Branch daily with meals. albuterol 2020-0 Yes [id number] 2{puff} Inhale 2 [facility] 90 2-14 Puffs ity of mcg/actuati 00:00: every 6 [place] as on inhaler 00 (six) Medical hours as Branch needed for Wheezing or Shortness of Breath. levETIRAcet 2020-0 Yes [id number] 500mg Take 1 [facility] am (KEPPRA) 2-14 tablet by ity of 500 mg 00:00: mouth 2 [place] tablet 00 (two) Medical times Branch daily. budesonide- 2020-0 Yes [id number] 2{puff} Inhale 2 [facility] formoteroL 2-14 Puffs 2 ity of 160-4.5 00:00: (two) [place] mcg/actuati 00 times Medical on inhaler daily. Branch indomethaci 2020-0 Yes [id number] 50mg Take 1 [facility] n 50 mg 2-14 capsule by ity of capsule 00:00: mouth 3 [place] 00 (three) Medical times Branch daily with meals. albuterol 2020-0 Yes [id number] 2{puff} Inhale 2 [facility] 90 2-14 Puffs ity of mcg/actuati 00:00: every 6 [place] as on inhaler 00 (six) Medical hours as Branch needed for Wheezing or Shortness of Breath. levETIRAcet 2020-0 Yes [id number] 500mg Take 1 [facility] am (KEPPRA) 2-14 tablet by ity of 500 mg 00:00: mouth 2 [place] tablet 00 (two) Medical times Branch daily. budesonide- 2020-0 Yes [id number] 2{puff} Inhale 2 [facility] formoteroL 2-14 Puffs 2 ity of 160-4.5 00:00: (two) [place] mcg/actuati 00 times Medical on inhaler daily. Branch indomethaci 2020-0 Yes [id number] 50mg Take 1 [facility] n 50 mg 2-14 capsule by ity of capsule 00:00: mouth 3 [place] 00 (three) Medical times Branch daily with meals. albuterol 2020-0 Yes [id number] 2{puff} Inhale 2 [facility] 90 2-14 Puffs ity of mcg/actuati 00:00: every 6 [place] as on inhaler 00 (six) Medical hours as Branch needed for Wheezing or Shortness of Breath. levETIRAcet 2020-0 Yes [id number] 500mg Take 1 [facility] am (KEPPRA) 2-14 tablet by ity of 500 mg 00:00: mouth 2 [place] tablet 00 (two) Medical times Branch daily. budesonide- 2020-0 Yes [id number] 2{puff} Inhale 2 [facility] formoteroL 2-14 Puffs 2 ity of 160-4.5 00:00: (two) [place] mcg/actuati 00 times Medical on inhaler daily. Branch indomethaci 2020-0 Yes [id number] 50mg Take 1 [facility] n 50 mg 2-14 capsule by ity of capsule 00:00: mouth 3 [place] 00 (three) Medical times Branch daily with meals. albuterol 2020-0 Yes [id number] 2{puff} Inhale 2 [facility] 90 2-14 Puffs ity of mcg/actuati 00:00: every 6 [place] as on inhaler 00 (six) Medical hours as Branch needed for Wheezing or Shortness of Breath. levETIRAcet 2020-0 Yes [id number] 500mg Take 1 [facility] am (KEPPRA) 2-14 tablet by ity of 500 mg 00:00: mouth 2 [place] tablet 00 (two) Medical times Branch daily. budesonide- 2020-0 Yes [id number] 2{puff} Inhale 2 [facility] formoteroL 2-14 Puffs 2 ity of 160-4.5 00:00: (two) [place] mcg/actuati 00 times Medical on inhaler daily. Branch indomethaci 2020-0 Yes [id number] 50mg Take 1 [facility] n 50 mg 2-14 capsule by ity of capsule 00:00: mouth 3 (three) Medical times Branch daily with meals. albuterol 2020-0 Yes [id number] 2{puff} Inhale 2 [facility] 90 2-14 Puffs ity of mcg/actuati 00:00: every 6 [place] as on inhaler 00 (six) Medical hours as Branch needed for Wheezing or Shortness of Breath. levETIRAcet 2020-0 Yes [id number] 500mg Take 1 [facility] am (KEPPRA) 2-14 tablet by ity of 500 mg 00:00: mouth 2 [place] tablet 00 (two) Medical times Branch daily. budesonide- 2020-0 Yes [id number] 2{puff} Inhale 2 [facility] formoteroL 2-14 Puffs 2 ity of 160-4.5 00:00: (two) [place] mcg/actuati 00 times Medical on inhaler daily. Branch indomethaci 2020-0 Yes [id number] 50mg Take 1 [facility] n 50 mg 2-14 capsule by ity of capsule 00:00: mouth 3 (three) Medical times Branch daily with meals. albuterol 2020-0 Yes [id number] 2{puff} Inhale 2 [facility] 90 2-14 Puffs ity of mcg/actuati 00:00: every 6 [place] as on inhaler 00 (six) Medical hours as Branch needed for Wheezing or Shortness of Breath. levETIRAcet 2020-0 Yes [id number] 500mg Take 1 [facility] am (KEPPRA) 2-14 tablet by ity of 500 mg 00:00: mouth 2 [place] tablet 00 (two) Medical times Branch daily. budesonide- 2020-0 Yes [id number] 2{puff} Inhale 2 [facility] formoteroL 2-14 Puffs 2 ity of 160-4.5 00:00: (two) [place] mcg/actuati 00 times Medical on inhaler daily. Branch indomethaci 2020-0 Yes [id number] 50mg Take 1 [facility] n 50 mg 2-14 capsule by ity of capsule 00:00: mouth 3 [place] 00 (three) Medical times Branch daily with meals. albuterol 2020-0 Yes [id number] 2{puff} Inhale 2 [facility] 90 2-14 Puffs ity of mcg/actuati 00:00: every 6 [place] as on inhaler 00 (six) Medical hours as Branch needed for Wheezing or Shortness of Breath. levETIRAcet 2020-0 Yes [id number] 500mg Take 1 [facility] am (KEPPRA) 2-14 tablet by ity of 500 mg 00:00: mouth 2 [place] tablet 00 (two) Medical times Branch daily. budesonide- 2020-0 Yes [id number] 2{puff} Inhale 2 [facility] formoteroL 2-14 Puffs 2 ity of 160-4.5 00:00: (two) [place] mcg/actuati 00 times Medical on inhaler daily. Branch indomethaci 2020-0 Yes [id number] 50mg Take 1 [facility] n 50 mg 2-14 capsule by ity of capsule 00:00: mouth 3 [place] 00 (three) Medical times Branch daily with meals. albuterol 2020-0 Yes [id number] 2{puff} Inhale 2 [facility] 90 2-14 Puffs ity of mcg/actuati 00:00: every 6 [place] as on inhaler 00 (six) Medical hours as Branch needed for Wheezing or Shortness of Breath. levETIRAcet 2020-0 Yes [id number] 500mg Take 1 [facility] am (KEPPRA) 2-14 tablet by ity of 500 mg 00:00: mouth 2 [place] tablet 00 (two) Medical times Branch daily. budesonide- 2020-0 Yes [id number] 2{puff} Inhale 2 [facility] formoteroL 2-14 Puffs 2 ity of 160-4.5 00:00: (two) [place] mcg/actuati 00 times Medical on inhaler daily. Branch indomethaci 2020-0 Yes [id number] 50mg Take 1 [facility] n 50 mg 2-14 capsule by ity of capsule 00:00: mouth 3 [place] 00 (three) Medical times Branch daily with meals. albuterol 2020-0 Yes [id number] 2{puff} Inhale 2 [facility] 90 2-14 Puffs ity of mcg/actuati 00:00: every 6 [place] as on inhaler 00 (six) Medical hours as Branch needed for Wheezing or Shortness of Breath. levETIRAcet 2020-0 Yes [id number] 500mg Take 1 [facility] am (KEPPRA) 2-14 tablet by ity of 500 mg 00:00: mouth 2 [place] tablet 00 (two) Medical times Branch daily. budesonide- 2020-0 Yes [id number] 2{puff} Inhale 2 [facility] formoteroL 2-14 Puffs 2 ity of 160-4.5 00:00: (two) [place] mcg/actuati 00 times Medical on inhaler daily. Branch indomethaci 2020-0 Yes [id number] 50mg Take 1 [facility] n 50 mg 2-14 capsule by ity of capsule 00:00: mouth 3 [place] 00 (three) Medical times Branch daily with meals. albuterol 2020-0 Yes [id number] 2{puff} Inhale 2 [facility] 90 2-14 Puffs ity of mcg/actuati 00:00: every 6 [place] as on inhaler 00 (six) Medical hours as Branch needed for Wheezing or Shortness of Breath. levETIRAcet 2020-0 Yes [id number] 500mg Take 1 [facility] am (KEPPRA) 2-14 tablet by ity of 500 mg 00:00: mouth 2 [place] tablet 00 (two) Medical times Branch daily. budesonide- 2020-0 Yes [id number] 2{puff} Inhale 2 [facility] formoteroL 2-14 Puffs 2 ity of 160-4.5 00:00: (two) [place] mcg/actuati 00 times Medical on inhaler daily. Branch indomethaci 2020-0 Yes [id number] 50mg Take 1 [facility] n 50 mg 2-14 capsule by ity of capsule 00:00: mouth 3 [place] 00 (three) Medical times Branch daily with meals. albuterol 2020-0 Yes [id number] 2{puff} Inhale 2 [facility] 90 2-14 Puffs ity of mcg/actuati 00:00: every 6 [place] as on inhaler 00 (six) Medical hours as Branch needed for Wheezing or Shortness of Breath. levETIRAcet 2020-0 Yes [id number] 500mg Take 1 [facility] am (KEPPRA) 2-14 tablet by ity of 500 mg 00:00: mouth 2 [place] tablet 00 (two) Medical times Branch daily. budesonide- 2020-0 Yes [id number] 2{puff} Inhale 2 [facility] formoteroL 2-14 Puffs 2 ity of 160-4.5 00:00: (two) [place] mcg/actuati 00 times Medical on inhaler daily. Branch indomethaci 2020-0 Yes [id number] 50mg Take 1 [facility] n 50 mg 2-14 capsule by ity of capsule 00:00: mouth 3 [place] 00 (three) Medical times Branch daily with meals. albuterol 2020-0 Yes [id number] 2{puff} Inhale 2 [facility] 90 2-14 Puffs ity of mcg/actuati 00:00: every 6 [place] as on inhaler 00 (six) Medical hours as Branch needed for Wheezing or Shortness of Breath. levETIRAcet 2020-0 Yes [id number] 500mg Take 1 [facility] am (KEPPRA) 2-14 tablet by ity of 500 mg 00:00: mouth 2 [place] tablet 00 (two) Medical times Branch daily. budesonide- 2020-0 Yes [id number] 2{puff} Inhale 2 [facility] formoteroL 2-14 Puffs 2 ity of 160-4.5 00:00: (two) [place] mcg/actuati 00 times Medical on inhaler daily. Branch indomethaci 2020-0 Yes [id number] 50mg Take 1 [facility] n 50 mg 2-14 capsule by ity of capsule 00:00: mouth 3 (three) Medical times Branch daily with meals. albuterol 2020-0 Yes [id number] 2{puff} Inhale 2 [facility] 90 2-14 Puffs ity of mcg/actuati 00:00: every 6 [place] as on inhaler 00 (six) Medical hours as Branch needed for Wheezing or Shortness of Breath. levETIRAcet 2020-0 Yes [id number] 500mg Take 1 [facility] am (KEPPRA) 2-14 tablet by ity of 500 mg 00:00: mouth 2 [place] tablet 00 (two) Medical times Branch daily. budesonide- 2020-0 Yes [id number] 2{puff} Inhale 2 [facility] formoteroL 2-14 Puffs 2 ity of 160-4.5 00:00: (two) [place] mcg/actuati 00 times Medical on inhaler daily. Branch indomethaci 2020-0 Yes [id number] 50mg Take 1 [facility] n 50 mg 2-14 capsule by ity of capsule 00:00: mouth 3 [place] 00 (three) Medical times Branch daily with meals. albuterol 2020-0 Yes [id number] 2{puff} Inhale 2 [facility] 90 2-14 Puffs ity of mcg/actuati 00:00: every 6 [place] as on inhaler 00 (six) Medical hours as Branch needed for Wheezing or Shortness of Breath. levETIRAcet 2020-0 Yes [id number] 500mg Take 1 [facility] am (KEPPRA) 2-14 tablet by ity of 500 mg 00:00: mouth 2 [place] tablet 00 (two) Medical times Branch daily. budesonide- 2020-0 Yes [id number] 2{puff} Inhale 2 [facility] formoteroL 2-14 Puffs 2 ity of 160-4.5 00:00: (two) [place] mcg/actuati 00 times Medical on inhaler daily. Branch indomethaci 2020-0 Yes [id number] 50mg Take 1 [facility] n 50 mg 2-14 capsule by ity of capsule 00:00: mouth 3 [place] 00 (three) Medical times Branch daily with meals. albuterol 2020-0 Yes [id number] 2{puff} Inhale 2 Univers 90 2-14 Puffs ity of mcg/actuati 00:00: every 6 [place] as on inhaler 00 (six) Medical hours as Branch needed for Wheezing or Shortness of Breath. levETIRAcet 2020-0 Yes [id number] 500mg Take 1 Univers am (KEPPRA) 2-14 tablet by ity of 500 mg 00:00: mouth 2 [place] tablet 00 (two) Medical times Branch daily. budesonide- 2020-0 Yes [id number] 2{puff} Inhale 2 Univers formoteroL 2-14 Puffs 2 ity of 160-4.5 00:00: (two) [place] mcg/actuati 00 times Medical on inhaler daily. Branch indomethaci 2020-0 Yes [id number] 50mg Take 1 Univers n 50 mg 2-14 capsule by ity of capsule 00:00: mouth 3 [place] 00 (three) Medical times Branch daily with meals. albuterol 2020-0 Yes [id number] 2{puff} Inhale 2 Univers 90 2-14 Puffs ity of mcg/actuati 00:00: every 6 [place] as on inhaler 00 (six) Medical hours as Branch needed for Wheezing or Shortness of Breath. levETIRAcet 2020-0 Yes [id number] 500mg Take 1 Univers am (KEPPRA) 2-14 tablet by ity of 500 mg 00:00: mouth 2 [place] tablet 00 (two) Medical times Branch daily. budesonide- 2020-0 Yes [id number] 2{puff} Inhale 2 Univers formoteroL 2-14 Puffs 2 ity of 160-4.5 00:00: (two) [place] mcg/actuati 00 times Medical on inhaler daily. Branch indomethaci 2020-0 Yes [id number] 50mg Take 1 Univers n 50 mg 2-14 capsule by ity of capsule 00:00: mouth 3 [place] 00 (three) Medical times Branch daily with meals. albuterol 2020-0 Yes [id number] 2{puff} Inhale 2 Univers 90 2-14 Puffs ity of mcg/actuati 00:00: every 6 [place] as on inhaler 00 (six) Medical hours as Branch needed for Wheezing or Shortness of Breath. levETIRAcet 2020-0 Yes [id number] 500mg Take 1 Univers am (KEPPRA) 2-14 tablet by ity of 500 mg 00:00: mouth 2 [place] tablet 00 (two) Medical times Branch daily. budesonide- 2020-0 Yes [id number] 2{puff} Inhale 2 Univers formoteroL 2-14 Puffs 2 ity of 160-4.5 00:00: (two) [place] mcg/actuati 00 times Medical on inhaler daily. Branch indomethaci 2020-0 Yes [id number] 50mg Take 1 Univers n 50 mg 2-14 capsule by ity of capsule 00:00: mouth 3 [place] 00 (three) Medical times Branch daily with meals. albuterol 2020-0 Yes [id number] 2{puff} Inhale 2 Univers 90 2-14 Puffs ity of mcg/actuati 00:00: every 6 [place] as on inhaler 00 (six) Medical hours as Branch needed for Wheezing or Shortness of Breath. levETIRAcet 2020-0 Yes [id number] 500mg Take 1 Univers am (KEPPRA) 2-14 tablet by ity of 500 mg 00:00: mouth 2 [place] tablet 00 (two) Medical times Branch daily. budesonide- 2020-0 Yes [id number] 2{puff} Inhale 2 Univers formoteroL 2-14 Puffs 2 ity of 160-4.5 00:00: (two) [place] mcg/actuati 00 times Medical on inhaler daily. Branch indomethaci 2020-0 Yes [id number] 50mg Take 1 Univers n 50 mg 2-14 capsule by ity of capsule 00:00: mouth 3 [place] 00 (three) Medical times Branch daily with meals. topiramate 2020-0 Yes Univers 25 mg 1-28 ity of tablet 00:00: [place] [address] Medical Branch topiramate 2020-0 Yes Univers 25 mg 1-28 ity of tablet 00:00: [address] topiramate 2020-0 Yes Univers 25 mg 1-28 ity of tablet 00:00: [address] topiramate 2020-0 Yes Univers 25 mg 1-28 ity of tablet 00:00: [address] topiramate 2020-0 Yes Univers 25 mg 1-28 ity of tablet 00:00: [address] Branch topiramate 2020-0 Yes Univers 25 mg 1-28 ity of tablet 00:00: [address] topiramate 2020-0 Yes Univers 25 mg 1-28 ity of tablet 00:00: [address] topiramate 2020-0 Yes Univers 25 mg 1-28 ity of tablet 00:00: [address] topiramate 2020-0 Yes Univers 25 mg 1-28 ity of tablet 00:00: [address] topiramate 2020-0 Yes Univers 25 mg 1-28 ity of tablet 00:00: [address] topiramate 2020-0 Yes Univers 25 mg 1-28 ity of tablet 00:00: [address] topiramate 2020-0 Yes Univers 25 mg 1-28 ity of tablet 00:00: [address] topiramate 2020-0 Yes Univers 25 mg 1-28 ity of tablet 00:00: [address] topiramate 2020-0 Yes Univers 25 mg 1-28 ity of tablet 00:00: [address] topiramate 2020-0 Yes Univers 25 mg 1-28 ity of tablet 00:00: [address] topiramate 2020-0 Yes Univers 25 mg 1-28 ity of tablet 00:00: [address] topiramate 2020-0 Yes Univers 25 mg 1-28 ity of tablet 00:00: [address] topiramate 2020-0 Yes Univers 25 mg 1-28 ity of tablet 00:00: [address] topiramate 2020-0 Yes Univers 25 mg 1-28 ity of tablet 00:00: [address] topiramate 2020-0 Yes Univers 25 mg 1-28 ity of tablet 00:00: [place] [address] Medical Branch topiramate 2020-0 Yes Univers 25 mg 1-28 ity of tablet 00:00: [place] [address] Medical Branch topiramate 2020-0 Yes Univers 25 mg 1-28 ity of tablet 00:00: [address] topiramate 2020-0 Yes Univers 25 mg 1-28 ity of tablet 00:00: [address] topiramate 2020-0 Yes Univers 25 mg 1-28 ity of tablet 00:00: [address] topiramate 2020-0 Yes Univers 25 mg 1-28 ity of tablet 00:00: [address] topiramate 2020-0 Yes Univers 25 mg 1-28 ity of tablet 00:00: [address] topiramate 2020-0 Yes Univers 25 mg 1-28 ity of tablet 00:00: [address] topiramate 2020-0 Yes Univers 25 mg 1-28 ity of tablet 00:00: [address] topiramate 2020-0 Yes Univers 25 mg 1-28 ity of tablet 00:00: [address] topiramate 2020-0 Yes Univers 25 mg 1-28 ity of tablet 00:00: [address] topiramate 2020-0 Yes Univers 25 mg 1-28 ity of tablet 00:00: [address] topiramate 2020-0 Yes Univers 25 mg 1-28 ity of tablet 00:00: [address] topiramate 2020-0 Yes Univers 25 mg 1-28 ity of tablet 00:00: [address] topiramate 2020-0 Yes Univers 25 mg 1-28 ity of tablet 00:00: [address] topiramate 2020-0 Yes Univers 25 mg 1-28 ity of tablet 00:00: [address] topiramate 2020-0 Yes Univers 25 mg 1-28 ity of tablet 00:00: [address] topiramate 2020-0 Yes Univers 25 mg 1-28 ity of tablet 00:00: [address] carBAMazepi 2020-0 Yes Univer s ne 200 mg 1-20 ity of tablet 00:00: [place] [address] [facility] [place] carBAMazepi 2020-0 Yes Univer s ne 200 mg 1-20 ity of tablet 00:00: [place] 00 Medical Branch carBAMazepi 2020-0 Yes Univer s ne 200 mg 1-20 ity of tablet 00:00: [place] 00 Medical Branch carBAMazepi 2020-0 Yes Univer s ne 200 mg 1-20 ity of tablet 00:00: [place] 00 Medical Branch carBAMazepi 2020-0 Yes Univer s ne 200 mg 1-20 ity of tablet 00:00: [place] [address] Medical Branch carBAMazepi 2020-0 Yes Univer s ne 200 mg 1-20 ity of tablet 00:00: [place] 00 Medical Branch carBAMazepi 2020-0 Yes Univer s ne 200 mg 1-20 ity of tablet 00:00: [place] [address] Medical Branch carBAMazepi 2020-0 Yes Univer s ne 200 mg 1-20 ity of tablet 00:00: [place] [address] Medical Branch carBAMazepi 2020-0 Yes Univer s ne 200 mg 1-20 ity of tablet 00:00: [place] [address] Medical Branch carBAMazepi 2020-0 Yes Univer s ne 200 mg 1-20 ity of tablet 00:00: [place] [address] Medical Branch carBAMazepi 2020-0 Yes Univer s ne 200 mg 1-20 ity of tablet 00:00: [place] [address] Medical Branch carBAMazepi 2020-0 Yes Univer s ne 200 mg 1-20 ity of tablet 00:00: [place] [address] Medical Branch carBAMazepi 2020-0 Yes Univer s ne 200 mg 1-20 ity of tablet 00:00: [place] [address] Medical Branch carBAMazepi 2020-0 Yes Univer s ne 200 mg 1-20 ity of tablet 00:00: [place] [address] Medical Branch carBAMazepi 2020-0 Yes Univer s ne 200 mg 1-20 ity of tablet 00:00: [place] 00 Medical Branch carBAMazepi 2020-0 Yes Univer s ne 200 mg 1-20 ity of tablet 00:00: [place] [address] Medical Branch carBAMazepi 2020-0 Yes Univer s ne 200 mg 1-20 ity of tablet 00:00: [place] [address] Medical Branch carBAMazepi 2020-0 Yes Univer s ne 200 mg 1-20 ity of tablet 00:00: [place] [address] Medical Branch carBAMazepi 2020-0 Yes Univer s ne 200 mg 1-20 ity of tablet 00:00: [place] [address] Medical Branch carBAMazepi 2020-0 Yes Univer s ne 200 mg 1-20 ity of tablet 00:00: [place] 00 Medical Branch carBAMazepi 2020-0 Yes Univer s ne 200 mg 1-20 ity of tablet 00:00: [place] 00 Medical Branch carBAMazepi 2020-0 Yes Univer s ne 200 mg 1-20 ity of tablet 00:00: [place] 00 Medical Branch carBAMazepi 2020-0 Yes Univer s ne 200 mg 1-20 ity of tablet 00:00: [place] [address] Medical Branch carBAMazepi 2020-0 Yes Univer s ne 200 mg 1-20 ity of tablet 00:00: [place] [address] Medical Branch carBAMazepi 2020-0 Yes Univer s ne 200 mg 1-20 ity of tablet 00:00: [place] [address] Medical Branch carBAMazepi 2020-0 Yes Univer s ne 200 mg 1-20 ity of tablet 00:00: [place] [address] Medical Branch carBAMazepi 2020-0 Yes Univer s ne 200 mg 1-20 ity of tablet 00:00: [place] [address] Medical Branch carBAMazepi 2020-0 Yes Univer s ne 200 mg 1-20 ity of tablet 00:00: [place] [address] Medical Branch carBAMazepi 2020-0 Yes Univer s ne 200 mg 1-20 ity of tablet 00:00: [place] [address] Medical Branch carBAMazepi 2020-0 Yes Univer s ne 200 mg 1-20 ity of tablet 00:00: [place] [address] Medical Branch carBAMazepi 2020-0 Yes Univer s ne 200 mg 1-20 ity of tablet 00:00: [place] [address] Medical Branch carBAMazepi 2020-0 Yes Univer s ne 200 mg 1-20 ity of tablet 00:00: [place] [address] Medical Branch carBAMazepi 2020-0 Yes Univer s ne 200 mg 1-20 ity of tablet 00:00: [place] [address] Medical Branch carBAMazepi 2020-0 Yes Univer s ne 200 mg 1-20 ity of tablet 00:00: [place] [address] Medical Branch carBAMazepi 2020-0 Yes Univer s ne 200 mg 1-20 ity of tablet 00:00: [place] [address] Medical Branch carBAMazepi 2020-0 Yes Univer s ne 200 mg 1-20 ity of tablet 00:00: [place] [address] Medical Branch carBAMazepi 2020-0 Yes Univer s ne 200 mg 1-20 ity of tablet 00:00: [place] [address] Medical Branch [place] No [place] .5/30 (28) 1.5/30 (28) 1.5/30 da 1.5 mg-30 [...] Unive rsity of VACCINE - (MODERNA) 00:00:00 [facility] SARS-COV-2 COVID-19 2022-04-12 Completed Unive rsity of VACCINE - (MODERNA) 00:00:00 [facility] SARS-COV-2 COVID-19 2022-04-12 Completed Unive rsity of VACCINE - (MODERNA) 00:00:00 [facility] SARS-COV-2 COVID-19 2022-04-12 Completed Unive rsity of VACCINE - (MODERNA) 00:00:00 [facility] SARS-COV-2 COVID-19 2022-04-12 Completed Unive rsity of VACCINE - (MODERNA) 00:00:00 [facility] SARS-COV-2 COVID-19 2022-04-12 Completed Unive rsity of VACCINE - (MODERNA) 00:00:00 [facility] SARS-COV-2 COVID-19 2022-04-12 Completed Unive rsity of VACCINE - (MODERNA) 00:00:00 [facility] SARS-COV-2 COVID-19 2022-04-12 Completed Unive rsity of VACCINE - (MODERNA) 00:00:00 [facility] SARS-COV-2 COVID-19 2022-04-12 Completed Unive rsity of VACCINE - (MODERNA) 00:00:00 [facility] SARS-COV-2 COVID-19 2022-04-12 Completed Unive rsity of VACCINE - (MODERNA) 00:00:00 [facility] SARS-COV-2 COVID-19 2022-04-12 Completed Unive rsity of VACCINE - (MODERNA) 00:00:00 [facility] Branch SARS-COV-2 COVID-19 2022-04-12 Completed Unive rsity of VACCINE - (MODERNA) 00:00:00 [facility] SARS-COV-2 COVID-19 2022-04-12 Completed Unive rsity of VACCINE - (MODERNA) 00:00:00 [facility] Branch SARS-COV-2 COVID-19 2022-04-12 Completed Unive rsity of VACCINE - (MODERNA) 00:00:00 [facility] SARS-COV-2 COVID-19 2022-04-12 Completed Unive rsity of VACCINE - (MODERNA) 00:00:00 [facility] SARS-COV-2 COVID-19 2022-04-12 Completed Unive rsity of VACCINE - (MODERNA) 00:00:00 [facility] SARS-COV-2 COVID-19 2022-04-12 Completed Unive rsity of VACCINE - (MODERNA) 00:00:00 [facility] SARS-COV-2 COVID-19 2021-10-12 Completed Unive rsity of MODERNA 12+ YRS 00:00:00 [facility] ical VACCINE Branch SARS-COV-2 COVID-19 2021-10-12 Completed Unive rsity of MODERNA 12+ YRS 00:00:00 [place] [facility] ical VACCINE Branch SARS-COV-2 COVID-19 2021-10-12 Completed Unive rsity of MODERNA 12+ YRS 00:00:00 [place] [facility] ical VACCINE Branch SARS-COV-2 COVID-19 2021-10-12 Completed Unive rsity of MODERNA 12+ YRS 00:00:00 [place] [facility] ical VACCINE Branch SARS-COV-2 COVID-19 2021-10-12 Completed Unive rsity of MODERNA 12+ YRS 00:00:00 [facility] ical VACCINE Branch SARS-COV-2 COVID-19 2021-10-12 Completed Unive rsity of MODERNA 12+ YRS 00:00:00 [facility] ical VACCINE Branch SARS-COV-2 COVID-19 2021-10-12 Completed [...] Unive rsity of MODERNA 12+ YRS 00:00:00 [facility] VACCINE Branch SARS-COV-2 COVID-19 2021-09-14 Completed Unive rsity of MODERNA 12+ YRS 00:00:00 [facility] VACCINE Branch SARS-COV-2 COVID-19 2021-09-14 Completed Unive rsity of MODERNA 12+ YRS 00:00:00 [facility] VACCINE Branch Influenza Virus 2018-12-16 Completed Universit y of Vaccine Quad IM 3+ 00:00:00 [facility] Influenza Virus 2018-12-16 Completed Universit y of Vaccine Quad IM 3+ 00:00:00 [facility] Influenza Virus 2018-12-16 Completed Universit y of Vaccine Quad IM 3+ 00:00:00 [facility] Influenza Virus 2018-12-16 Completed Universit y of Vaccine Quad IM 3+ 00:00:00 [facility] Influenza Virus 2018-12-16 Completed Universit y of Vaccine Quad IM 3+ 00:00:00 [facility] Influenza Virus 2018-12-16 Completed Universit y of Vaccine Quad IM 3+ 00:00:00 [facility] Influenza Virus 2018-12-16 Completed Universit y of Vaccine Quad IM 3+ 00:00:00 [facility] Influenza Virus 2018-12-16 Completed Universit y of Vaccine Quad IM 3+ 00:00:00 [facility] Influenza Virus 2018-12-16 Completed Universit y of Vaccine Quad IM 3+ 00:00:00 [facility] Influenza Virus 2018-12-16 Completed Universit y of Vaccine Quad IM 3+ 00:00:00 [facility] Influenza Virus 2018-12-16 Completed Universit y of Vaccine Quad IM 3+ 00:00:00 [facility] Influenza Virus 2018-12-16 Completed Universit y of Vaccine Quad IM 3+ 00:00:00 [facility] Influenza Virus 2018-12-16 Completed Universit y of Vaccine Quad IM 3+ 00:00:00 [facility] Influenza Virus 2018-12-16 Completed Universit y of Vaccine Quad IM 3+ 00:00:00 [facility] Influenza Virus 2018-12-16 Completed Universit y of Vaccine Quad IM 3+ 00:00:00 [facility] Influenza Virus 2018-12-16 Completed Universit y of Vaccine Quad IM 3+ 00:00:00 [facility] Influenza Virus 2018-12-16 Completed Universit y of Vaccine Quad IM 3+ 00:00:00 [facility] Influenza Virus 2018-12-16 Completed Universit y of Vaccine Quad IM 3+ 00:00:00 [facility] Influenza Virus 2018-12-16 Completed Universit y of Vaccine Quad IM 3+ 00:00:00 [facility] Influenza Virus 2018-12-16 Completed Universit y of Vaccine Quad IM 3+ 00:00:00 [facility] Influenza Virus 2018-12-16 Completed Universit y of Vaccine Quad IM 3+ 00:00:00 [facility] Influenza Virus 2018-12-16 Completed Universit y of Vaccine Quad IM 3+ 00:00:00 [facility] Influenza Virus 2018-12-16 Completed Universit y of Vaccine Quad IM 3+ 00:00:00 [facility] Influenza Virus 2018-12-16 Completed Universit y of Vaccine Quad IM 3+ 00:00:00 [facility] Influenza Virus 2018-12-16 Completed Universit y of Vaccine Quad IM 3+ 00:00:00 [facility] Influenza Virus 2018-12-16 Completed Universit y of Vaccine Quad IM 3+ 00:00:00 [facility] Influenza Virus 2018-12-16 Completed Universit y of Vaccine Quad IM 3+ 00:00:00 [facility] Influenza Virus 2018-12-16 Completed Universit y of Vaccine Quad IM 3+ 00:00:00 [facility] Influenza Virus 2018-12-16 Completed Universit y of Vaccine Quad IM 3+ 00:00:00 [facility] Influenza Virus 2018-12-16 Completed Universit y of Vaccine Quad IM 3+ 00:00:00 [facility] Influenza Virus 2018-12-16 Completed Universit y of Vaccine Quad IM 3+ 00:00:00 [facility] Influenza Virus 2018-12-16 Completed Universit y of Vaccine Quad IM 3+ 00:00:00 [facility] Influenza Virus Unknown Completed Universit y of Vaccine Quad IM 3+ [facility] SARS-COV-2 COVID-19 Unknown Completed Unive rsity of MODERNA 12+ YRS [place] [facility] ical VACCINE Branch SARS-COV-2 COVID-19 Unknown Completed Unive rsity of MODERNA 12+ YRS [place] [facility] ical VACCINE Branch SARS-COV-2 COVID-19 Unknown Completed Unive rsity of VACCINE - (MODERNA) [place] [facility] Influenza Virus Unknown Completed Universit y of Vaccine Quad IM 3+ [place] [facility] YRS Branch SARS-COV-2 COVID-19 Unknown Completed Unive rsity of MODERNA 12+ YRS [place] [facility] ical VACCINE Branch SARS-COV-2 COVID-19 Unknown Completed Unive rsity of MODERNA 12+ YRS [place] [facility] ical VACCINE Branch SARS-COV-2 COVID-19 Unknown Completed Unive rsity of VACCINE - (MODERNA) [place] [facility] Influenza Virus Unknown Completed Universit y of Vaccine Quad IM 3+ [place] [facility] YRS Branch SARS-COV-2 COVID-19 Unknown Completed Unive rsity of MODERNA 12+ YRS [place] [facility] ical VACCINE Branch SARS-COV-2 COVID-19 Unknown Completed Unive rsity of MODERNA 12+ YRS [place] Med ical VACCINE Branch SARS-COV-2 COVID-19 Unknown Completed Unive rsity of VACCINE - (MODERNA) [place] [facility] Influenza Virus Unknown Completed Universit y of Vaccine Quad IM 3+ [place] [facility] YRS Branch Influenza Virus Unknown Completed Universit y of Vaccine Quad IM 3+ [facility] YRS Branch SARS-COV-2 COVID-19 Unknown Completed Unive rsity of MODERNA 12+ YRS [place] [facility] ical VACCINE Branch SARS-COV-2 COVID-19 Unknown Completed Unive rsity of MODERNA 12+ YRS [place] [facility] ical VACCINE Branch SARS-COV-2 COVID-19 Unknown Completed Unive rsity of VACCINE - (MODERNA) [facility] Vital Signs Vital Name Observation Time Observation Value Comments Source Systolic blood 2023-07-24 19:42:00 108 mm[Hg] Univer sity of pressure [facility] Diastolic blood 2023-07-24 19:42:00 77 mm[Hg] Unive rsity of pressure [facility] Heart rate 2023-07-24 19:42:00 89 /min [facility] Respiratory rate 2023-07-24 19:42:00 18 /min Univ ersity of [facility] Body height 2023-07-24 19:42:00 162.6 cm [facility] Body weight 2023-07-24 19:42:00 102.967 kg [facility] BMI 2023-07-24 19:42:00 38.96 kg/m2 [facility]i ty of [place] [facility] Systolic blood 2022-12-29 14:32:00 116 mm[Hg] Univer sity of pressure [place] [facility] Diastolic blood 2022-12-29 14:32:00 80 mm[Hg] Unive rsity of pressure [place] [facility] Heart rate 2022-12-29 14:32:00 82 /min [facility]i ty of [place] [facility] Body temperature 2022-12-29 14:32:00 36.72 Sury Univ ersity of [place] [facility] Respiratory rate 2022-12-29 14:32:00 18 /min Univ ersity of [place] [facility] Body height 2022-12-29 14:32:00 162.6 cm Universi ty of [place] [facility] Body weight 2022-12-29 14:32:00 109.226 kg [facility]i ty of [place] [facility] BMI 2022-12-29 14:32:00 41.33 kg/m2 [facility] [place] [facility] Systolic blood 2022-11-15 22:35:00 115 mm[Hg] Univer sity of pressure [place] [facility] Diastolic blood 2022-11-15 22:35:00 77 mm[Hg] Unive rsity of pressure [place] [facility] Heart rate 2022-11-15 22:35:00 74 /min [facility]i ty of [place] [facility] Body temperature 2022-11-15 22:35:00 36.67 [place] Univ ersity of [place] [facility] Respiratory rate 2022-11-15 22:35:00 18 /min Univ ersity of [place] [facility] Body height 2022-11-15 22:35:00 162.6 cm Universi ty of [place] [facility] Body weight 2022-11-15 22:35:00 111.041 kg [facility]i [facility] of [place] [facility] BMI 2022-11-15 22:35:00 42.02 kg/m2 [facility] [place] [facility] Systolic blood 2022-10-31 21:55:00 120 mm[Hg] Univer sity of pressure [place] [facility] Diastolic blood 2022-10-31 21:55:00 82 mm[Hg] Unive rsity of pressure [place] [facility] Heart rate 2022-10-31 21:55:00 90 /min Universi ty of [place] [facility] Respiratory rate 2022-10-31 21:55:00 18 /min Univ ersity of [facility] Body height 2022-10-31 21:55:00 162.6 cm Universi ty of [facility] Body weight 2022-10-31 21:55:00 111.131 kg Universi ty of [place] [facility] BMI 2022-10-31 21:55:00 42.05 kg/m2 Universi ty of [facility] Systolic blood 2022-10-18 15:58:00 110 mm[Hg] Univer sity of pressure [facility] Diastolic blood 2022-10-18 15:58:00 75 mm[Hg] Unive rsity of pressure [facility] Heart rate 2022-10-18 15:58:00 92 /min Universi ty of [facility] Body temperature 2022-10-18 15:58:00 36.89 [place] Univ ersity of [facility] Respiratory rate 2022-10-18 15:58:00 16 /min Univ ersity of [facility] Body height 2022-10-18 15:58:00 162.6 cm Universi ty of [facility] Body weight 2022-10-18 15:58:00 110.678 kg [facility] [place] [facility] BMI 2022-10-18 15:58:00 41.88 kg/m2 Universi ty of [facility] Oxygen saturation in 2022-10-18 15:58:00 97 /min University of Arterial blood by [facility] Pulse oximetry Branch HEIGHT 2021-12-17 23:33:00 162.6 cm WEIGHT 2021-12-17 21:14:00 104.781 kg HEIGHT 2021-12-17 23:33:00 162.6 cm WEIGHT 2021-12-17 21:14:00 104.781 kg Systolic blood 2021-12-12 22:09:00 119 mm[Hg] Univer sity of pressure [facility] Diastolic blood 2021-12-12 22:09:00 76 mm[Hg] Unive rsity of pressure [facility] Heart rate 2021-12-12 22:09:00 106 /min Universi ty of [facility] Body temperature 2021-12-12 22:09:00 36.83 [place] Univ ersity of [facility] Body height 2021-12-12 22:09:00 162.6 cm [facility] Body weight 2021-12-12 22:09:00 105.96 kg [facility] BMI 2021-12-12 22:09:00 40.10 kg/m2 [facility] Oxygen saturation in 2021-12-12 22:09:00 98 /min University Arterial blood by [facility] Pulse oximetry Branch BP Diastolic 2020-04-13 00:00:00 83 mm[Hg] [facility] Height 2020-04-13 00:00:00 64 [in_i] [facility] BMI (Body Mass 2020-04-13 00:00:00 36.5 kg/m2 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 Group BP Systolic 2020-04-13 00:00:00 118 mm[Hg] [facility] Body Weight 2020-04-13 00:00:00 212.8 [lb_av] [facility] Systolic blood 2021-12-18 12:35:00 120 mm[Hg] [facility] Diastolic blood 2021-12-18 12:35:00 90 mm[Hg] [facility] Heart rate 2021-12-18 12:35:00 79 /min [facility] Body temperature 2021-12-18 12:35:00 36.56 [facility] Respiratory rate 2021-12-18 12:35:00 18 /min [facility] Oxygen saturation in 2021-12-18 12:35:00 96 /min [facility] Arterial blood by Medical Ce nter Pulse oximetry Body height 2021-12-17 23:33:00 162.6 cm [facility] Body weight 2021-12-17 21:14:00 104.781 kg [facility] BMI 2021-12-17 21:14:00 39.65 kg/m2 [facility] Procedures Procedure Date / Time Performing Clinician Source Performed US PELVIS COMPLETE WITH 2023-02-02 16:35:18 Jose Angel Peralta [facility] TRANSVAGINAL [facility] POCT TEST 2022-12-29 15:22:00 Dulce Weeks [facility] PATIENT FINANCIAL 2022-12-29 14:22:26 [facility] GC & CHLAMYDIA AMPLIFIED 2022-11-15 22:38:00 Jose Angel Peralta [facility] ASSAY [facility] TRICHOMONAS AMPLIFIED 2022-11-15 22:38:00 [facility] [place] CONSENT FOR CONTRACEPTION 2022-11-15 06:01:00 Doctor Dipak [facility] Name [facility] [place] US PELVIS COMPLETE WITH 2022-10-31 00:48:02 Jose Angel Peralta [facility] TRANSVAGINAL [facility] NOTICE OF PRIVACY 2022-10-31 00:03:57 Doctor Dipak, [facility] PRACTICES [facility] CONSENT/REFUSAL FOR 2022-10-31 00:03:31 Doctor Dipak, [facility] DIAGNOSIS AND TREATMENT [facility] ASSIGNMENT OF BENEFITS 2022-10-31 00:03:08 Doctor Dipak, Un [facility] Name [facility] POCT TEST 2022-10-31 00:00:00 Jose Angel Peralta [facility] INSURANCE CORRESPONDENCE 2022-10-25 06:01:00 Doctor Dipak [facility] Name [facility] CBC WITH DIFF 2022-10-18 17:18:00 Jose Angel Peralta [facility] ASSIGNMENT OF BENEFITS 2022-10-18 15:41:13 Doctor [facility] [place] URINALYSIS W/ REFLEX 2021-12-18 10:11:00 Marylu Tiwari CH I [facility] URINE CULTURE Center BLOOD CULTURE 2021-12-18 03:39:00 Chad Dickey [facility] BASIC METABOLIC PANEL 2021-12-18 03:39:00 Chad Dickey [facility] CBC W/PLT COUNT & AUTO 2021-12-18 03:39:00 Chad Dickey [facility] DIFFERENTIAL Center CBC W/PLT COUNT & AUTO 2021-12-18 03:39:00 Chad Dickey [facility] BLOOD CULTURE 2021-12-17 23:54:00 Chad Dickey [facility] EKG-SCANNED 2021-12-17 00:00:00 Provider, Jasbir [facility] [place] Plan of Care Planned Activity Planned Date [...] - [facility] Test 00:[facility]:00 Moderna series) [code = [facility] COVID-19 VACCINE (3 - Moderna series)] Future Scheduled 2021-10-[address] [facility] Test 00:00:00 (12+) [code = DEPRESSION [facility] SCREENING (12+)] Diagnostic Test 2020-04-13 CBC w/ auto diff [code = [facility] Pending 00:00:00 CBC w/ auto diff] Group Diagnostic Test 2020-04-13 CMP, serum or plasma [facility] Pending 00:00:00 [code = CMP, serum or Group plasma] Diagnostic Test 2020-04-13 lipid panel, serum [code [facility] Pending 00:00:00 = lipid panel, serum] Group Diagnostic Test 2020-04-13 HBsAg (hepatitis B [place] medical 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 Pending 00:00:00 surface Ag), serum [code [...] 2020-04-13 CT + NG + TV, 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[facility] 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 00:00:00 urine/swab [code = CT + Grou p NG + TV, DNA, urine/swab] Future Scheduled 2011 Screening for malignant [facility] Test 00:00:00 neoplasm of cervix Medical C enter (procedure) [code = 941448427] Future Scheduled 2011 Screening for malignant [facility] Test 00:00:00 neoplasm of cervix Medical C enter (procedure) [code = 359185681] Future Scheduled 2011 Screening for malignant [facility] Test 00:00:00 neoplasm of cervix Medical C enter (procedure) [code = 480866926] Future Scheduled 2011 Screening for malignant [facility] Test 00:00:00 neoplasm of cervix Medical C enter (procedure) [code = 722830545] Future Scheduled 2011 Screening for malignant [facility] Test 00:00:00 neoplasm of cervix Medical C enter (procedure) [code = 496835358] Future Scheduled 2011 Screening for malignant [facility] Test 00:00:00 neoplasm of cervix Medical C enter (procedure) [code = 816671856] Future Scheduled 2011 Screening for malignant [facility] Test 00:00:00 neoplasm of cervix Medical C enter (procedure) [code = 141662472] Future Scheduled 2011 Screening for malignant [facility] Test 00:00:00 neoplasm of cervix Medical C enter (procedure) [code = 174482697] Future Scheduled 2011 Screening for malignant [facility] Test 00:00:00 neoplasm of cervix Medical C enter (procedure) [code = 413660827] Future Scheduled 2011 Screening for malignant [facility] Test 00:00:00 neoplasm of cervix Medical C enter (procedure) [code = 792700794] Future Scheduled 2010 Lipid panel (procedure) [facility] Test 00:00:00 [code = 28968473] Medical Ce nter Future Scheduled 2010 Lipid panel (procedure) [facility] Test 00:00:00 [code = 94413671] Medical Ce nter Future Scheduled 2010 Lipid panel (procedure) [facility] Test 00:00:00 [code = 90079952] Medical Ce nter Future Scheduled 2010 Lipid panel (procedure) [facility] Test 00:00:00 [code = 87392633] Medical Ce nter Future Scheduled 2010 Lipid panel (procedure) [facility] Test 00:00:00 [code = 50571275] Medical Ce nter Future Scheduled 2010 Lipid panel (procedure) [facility] Test 00:00:00 [code = 27470861] Medical Ce nter Future Scheduled 2010 Lipid panel (procedure) [facility] Test 00:00:00 [code = 87540182] Medical Ce nter Future Scheduled 2010 Lipid panel (procedure) [facility] Test 00:00:00 [code = 09636240] Medical Ce nter Future Scheduled 2010 Lipid panel (procedure) [facility] Test 00:00:00 [code = 66033857] Medical Ce nter Future Scheduled 2010 Lipid panel (procedure) [facility] Test 00:00:00 [code = 91494310] Medical Ce nter Future Scheduled 2009 DTAP/TDAP/TD [...] screening Medical Cent er (procedure) [code = 798453117] Future Scheduled [address] [facility] 00:00:00 virus screening Medical Cent er (procedure) [code = 413029733] Future Scheduled [address] Human [address] [facility] 00:00:00 virus screening Medical Cent er (procedure) [code = 913257155] Future Scheduled [address] Human [address] [facility] 00:00:00 virus screening Medical Cent er (procedure) [code = 043000523] Future Scheduled [address] [facility] 00:00:00 virus screening Medical Cent er (procedure) [code = 272452435] Future Scheduled [address] [facility] 00:00:00 virus screening Medical Cent er (procedure) [code = 429537336] Future Scheduled [address] [...] Facility Department ID 2021-08-30 Emergency [facility] [id number] Univers 00:49:50 [facility] 2024-08-01 2024-08-01 Outpatient R ISHAN BENNETT [facility] [id number] Univers 10:30:00 10:30:00 [facility] 2024-07-28 2024-07-28 Outpatient R JOSE ANGEL PERALTA [facility] B [id number] Univers 14:00:00 14:00:00 JOSE ANGEL PERALTA [facility] 2023-07-30 2023-07-30 Outpatient R ADEBAYOANIBAL HARRINGTONJUNIOR [facility] B [id number] Univers 14:00:00 14:00:00 FABIANJOSE ANGEL [facility] 2023-07-27 2023-07-27 Telephone Gina [facility] 1.2.840.11 [id number] Univers 00:00:00 00:00:00 Ashleigh suresh 350.1.13.10 ity of PEDIATRIC 4.2.7.2.686 [facility] [id number] [address] 2023-07-24 2023-07-24 Outpatient R ADEBAYOJUANY JOSE ANGEL [facility] B [id number] Univers 15:00:00 15:09:13 FABIANANIBALJUNIOR angulo [facility] 2023-07-24 2023-07-24 [facility] 1.2.840.114 [id number] Univers 15:00:00 15:09:13 Visit Jose Angel SCRUGGS 350.1.13.10 it y of WOMEN'S 4.2.7.2.686 [facility] [id number] [address] 2023-07-24 2023-07-24 Patient [facility] 1.2.840.114 [id number] Univers 00:00:00 00:00:00 Secure Msg Jose Angel SCRUGGS 350.1.13.10 ity of WOMEN'S 4.2.7.2.686 [facility] [id number] [address] 2023-05-31 2023-05-31 Outpatient R FABIAN JOSE ANGEL [facility] B [id number] Univers 16:30:00 16:30:00 JOSE ANGEL PERALTA [facility] 2023-02-02 2023-02-02 Outpatient R ADEBAYOJUANY JOSE ANGEL [facility] B [id number] Univers 10:57:29 23:59:00 JOSE ANGEL PERALTA [facility] 2023-02-02 2023-02-02 [facility] 1.2.840.114 [id number] Univers 10:57:29 23:59:00 Encounter Jose Angel JOVANA 350.1.13.10 ity of [facility] [place] [id number] [facility] [address] 2023-01-08 2023-01-08 Telephone Adum, [facility] 1.2.000.373 [id number] Univers 00:00:00 00:00:00 Dulce WHALEY 350.1.13.10 ity of [facility] [place] [id number] Nh dictn NAL [address] [place] [address] 2023-01-02 2023-01-02 Patient Knight, [facility] 1.2.840.114 [id number] Univers 00:00:00 00:00:00 Secure Msg Zelda Hernandez JOVANA 350.1.13.10 ity of [place] [id number] Nh dictn NAL [address] [place] [address] 2023-01-02 2023-01-02 Telephone Adum, [facility] 1.2.840.114 [id number] Univers 00:00:00 00:00:00 Dulce SCRUGGS 350.1.13.10 i ty [place] [facility] [id number] [address] 2022-12-29 2022-12-29 Outpatient R ADUM, [facility] [id number] Univers 09:00:00 09:23:08 DULCE ity of [facility] 2022-12-29 2022-12-29 Office Adum, [facility] 1.2.840.114 [id number] Univers 09:00:00 09:23:08 Visit Dulce WHALEY 350.1.13.10 ity of [facility] 4.2.7.2.[place] [id number] Nh dical NAL [address] [place] [address] 2022-12-29 2022-12-29 Orders Doctor AMBREEN 1.2.840.114 [id number] Univers 00:00:00 00:00:00 Only Unassigned, DONY 350.1.13.10 ity of [facility] 4.2.7.2.686 [place] as [id number] [address] 2022-12-29 2022-12-29 [facility] 1.2.840.114 [id number] Univers 00:00:00 00:00:00 (Out) Dulce WHALEY 350.1.13.10 ity of [place].7.2.[place] [id number] Nh dical [address] 2022-12-28 2022-12-28 Telephone [facility] 1.2.840.11 [id number] Univers 00:00:00 00:00:00 Jose Angel SCRUGGS 350.1.13.10 it y of [place] [id number] [address] 2022-12-28 2022-12-28 Telephone [facility] 1.2.840.11 [id number] Univers 00:00:00 00:00:00 Jose Angel SCRUGGS 350.1.13.10 it y [place] [id number] [address] 2022-11-15 2022-11-15 Office [facility] 1.2.840.114 [id number] Univers 15:00:00 17:23:28 Visit Jose Angel SCRUGGS 350.1.13.10 it y [place] [id number] [address] 2022-11-15 2022-11-15 Outpatient R JOSE ANGEL PERALTA [facility] B [id number] Univers 15:00:00 17:23:28 JOSE ANGEL PERALTAy [facility] 2022-11-15 2022-11-15 Orders Doctor CROOK 1.2.840.114 [id number] Univers 00:00:00 00:00:00 Only Unassigned, DONY 350.1.13.10 ity of [facility] 4.2.7.2.686 [place] as [id number] [address] 2022-11-08 2022-11-08 Pre Visit DENNIS Mayen 1.2.399.724 [id number] Univers 00:00:00 00:00:00 Outreach Khloe SIMMS 350.1.13.10 i ty of [place] 4.2.7.2.686 [place] [id number] [facility] [address] 2022-10-31 2022-10-31 Office [facility] 1.2.840.114 [id number] Univers 16:30:00 16:30:00 Visit Jose Angel SCRUGGS 350.1.13.10 it y of [facility] 4.2.7.2.686 [facility] [id number] [facility] [address] 2022-10-31 2022-10-31 Outpatient R FABIAN [facility] B [id number] Univers 16:30:00 16:13:04 [facility] 2022-10-30 2022-10-30 Outpatient R FABIAN [facility] B [id number] Univers 18:05:11 23:59:00 [facility] 2022-10-30 2022-10-30 [facility] 1.2.840.114 [id number] Univers 18:05:11 23:59:00 Encounter [facility] 350.1.13.10 [place] of [place].7.2.686 [place] [id number] [facility] [address] 2022-10-27 2022-10-27 Telemedici Prisca Vilchis [facility] 1.2.8 40.114 [id number] Univers 10:30:00 10:30:00 ne Visit Cyrus Shultz [employer]IL[employer] WORK[employer] 350.1.13.10 ity of [facility] 4.2.7.2.686 Elan as MATERNAL [id number] Med ical & CHILD [address] [place] [address] 2022-10-27 2022-10-27 Outpatient R CYRUS SHULTZ [facility] [id number] Univers 10:30:00 10:23:21 ity of [facility] 2022-10-25 2022-10-25 Telephone Fabian [facility] 1.2.840.11 [id number] Univers 00:00:00 00:00:00 Jose Angel SCRUGGS 350.1.13.10 it y [place].2.[place] [id number] [address] 2022-10-25 2022-10-25 Orders Doctor CROOK 1.2.840.114 [id number] Univers 00:00:00 00:00:00 Only Unassigned, DOYN 350.1.13.[address] [place] [facility] 4.2.7.2.686 [place] as [id number] [address] 2022-10-20 2022-10-20 Telephone Fabian [facility] 1.2.840.11 [id number] Univers 00:00:00 00:00:00 Jose Angel SCRUGGS 350.1.13.10 it y [place] [id number] [address] 2022-10-18 2022-10-18 Lab Head Deniz, Valerie Lab Main [facility] 1.2.8 40.114 [id number] Univers 11:30:00 11:45:00 Visit Jose Angel Peralta 350.1.13. 10 ity of [place] 4.2.7.2.[place] [id number] Nh dical [address] 2022-10-18 2022-10-18 Outpatient R JOSE ANGEL PERALTA [facility] B [id number] Univers 10:00:00 10:16:19 JOSE ANGEL PERALTA ity [facility] 2022-10-18 2022-10-18 Office Fabian [facility] 1.2.840.114 [id number] Univers 10:00:00 10:16:19 Visit Jose Angel SCRUGGS 350.1.13.10 it y [place] [id number] [address] 2022-10-18 2022-10-18 Orders Doctor AMBREEN 1.2.840.114 [id number] Univers 00:00:00 00:00:00 Only Unassigned, DONY 350.1.13.[address] [place] [facility] 4.2.7.2.686 [place] as [id number] [address] 2022 2022 Outpatient DICLEMENTE_ MEHOP [facility] [address] [place] 00:00:00 00:00:00 [facility]ITA [facility] 2021-12-22 2021-12-22 Outpatient Wendy [facility] [id number] Univers 08:30:00 08:30:00 ity [facility] 2021-12-22 2021-12-22 Outpatient Wendy [facility] [id number] Univers 08:30:00 08:30:00 ity [facility] 2021-12-21 2021-12-21 Outpatient Wendy [facility] [id number] Univers 15:00:00 15:00:00 ity [facility] 2021-12-17 2021-12-18 Hospital Brett Ortega [facility] [id number] [facility] 21:02:00 15:18:00 Encounter Edgardo Jacobs [facility] 2021-12-17 2021-12-18 Inpatient BETHANY TIWARI [facility] Neurology [id number] [facility] 21:02:00 15:18:00 [facility] 2021-12-18 2021-12-18 Travel [facility] [id number] [facility] 00:[facility] 00:00:00 [facility] 2021-12-14 2021-12-14 Telephone Amanda [facility] 1.2.238.264 [id number] Univers 00:00:00 00:00:00 Nila [facility] 350.1.13.10 it y of [place] 4.2.7.2.686 Elan as BARRON?BLEA [id number] Nh dic[address] MEDICAL OFFICE BUILDING 2021-12-13 2021-12-13 Telephone Amanda NHJOSE ENRIQUE 1.2.709.869 [id number] Univers 00:00:00 00:00:00 Nila HEALTH 350.1.13.10 it y of [place] 4.2.7.2.686 Elan as BARRON?BLEA [id number] [address] MEDICAL OFFICE [facility] 2021-12-13 2021-12-13 Telephone [facility] 1.2.880.476 [id number] Univers 00:00:00 00:00:00 Nila HEALTH 350.1.13.10 it y of [place] 4.2.7.2.686 [place]an as BARRON?BLEA [id number] [address] OFFICE [facility] 2021-12-13 2021-12-13 Telephone [facility] 1.2.308.676 [id number] Univers 00:00:00 00:00:00 Nila HEALTH 350.1.13.10 it y of [place] 4.2.7.2.686 Elan as BARRON?BLEA [id number] [address] OFFICE [facility] 2021-12-12 2021-12-12 [facility] [id number] Univers 16:00:00 16:51:41 NILA yousufrigo [facility] 2021-12-12 2021-12-12 Office [facility] 1.2.840.114 [id number] Univers 16:00:00 16:51:41 Visit [facility] 350.1.13.10 it y of [place] 4.2.7.2.686 Elan as BARRON?BLEA [id number] [address] OFFICE [facility] 2021-12-12 2021-12-12 [facility] [id number] Univers 16:00:00 16:51:41 NILA angulo [facility] 2021-12-12 2021-12-12 Letter [facility] 1.2.840.114 [id number] Univers 00:00:00 00:00:00 (Out) Nila HEALTH 350.1.13.10 it y of [place] 4.2.7.2.686 Elan as BARRON?BLEA [id number] [address] OFFICE [facility] 2021-10-12 2021-10-12 Outpatient R FREEMAN, [facility] [id number] Univers 09:10:00 09:10:00 ZELDA angulo [facility] 2021-10-12 2021-10-12 [facility] [id number] Univers 09:00:00 09:00:00 AIDAN [facility] 2021-10-12 2021-10-12 Imm/Inj Nurse, Adc Pob Immunization [facility] 1.2.840.114 [id number] Univers 09:00:00 09:00:00 Visit Aidan Reynoso 350.1.13 .10 ity aziza [facility] [place] [id number] [address] 2021-10-12 2021-10-12 [facility] [id number] Univers 08:00:00 08:00:00 AIDAN itrigo [facility] 2021-09-14 2021-09-14 [facility] [id number] Univers 09:30:00 09:30:00 [facility] 2021-09-14 2021-09-14 Imm/Inj Nurse, Adc Pob Immunization [facility] 1.2.840.114 [id number] Univers 09:01:10 09:01:24 Visit Aidan Reynoso 350.1.13 .10 ity aziza [place].2.[place] [id number] [facility] [address] [facility] 2021-08-20 2021-08-20 [facility] 1.2.840.114 [id number] Univers 00:00:00 00:00:00 [facility] 350.1.13.10 it y of [place] 4.2.7.2.686 [place] as BARRON?BLEA [id number] [facility] 370 [facility] OFFICE [facility] 2021-08-04 2021-08-04 Patient Doctor AMBREEN 1.2.840.114 [id number] Univers 00:00:00 00:00:00 Secure Msg Unassigned, DONY 350.1.13.10 ity of [facility] [facility] 4.2.7.2.686 Elan as [id number] [facility] [address] 2021-07-29 2021-07-29 Urgent Gisell Villegas [facility] 1.2.840.114 [id number] Univers 10:14:01 10:34:01 Care Unknown, Attending Health 350.1.13.10 ity of [place] 4.2.7.2.686 Elan as Barron?Blea [id number] Nh dical kney [address] [facility] 2021-07-29 2021-07-29 Outpatient R UNKNOWN, [facility] [id number] Univers 10:20:00 10:20:00 ATTENDING ity of [facility] 2021-07-21 2021-07-21 Emergency Vanessa Eduardo [facility] 1.2.840.114 [id number] Univers 10:06:00 11:06:00 Josefina Whaley 350.1.13.10 i ty of [place].2.[place] [id number] [facility] [address] 2021-07-19 2021-07-19 Orders Doctor AMBREEN 1.2.840.114 [id number] Univers 00:00:00 00:00:00 Only Unassigned, DONY 350.1.13.10 ity of [place] [facility] 4.2.7.2.686 [place] as [id number] [facility] [address] 2021-07-05 2021-07-05 Telephone Lydia [facility] 1.2.840.114 [id number] Univers 00:00:00 00:00:00 Zelda Whaley 350.1.13.10 ity of [place].2.[place] [phone] Nh dical nal [address] 2021-06-02 2021-06-02 Laboratory Lab, [facility] 1.2.840.114 [id number] 20:27:39 20:47:39 Only Fam Pob I Health 350.1.13.10 [place] 4.2.7.2.686 Professio [id number] nal [address] 2021-06-02 2021-06-02 Laboratory Lab, Adc Fam Pob I [facility] 1.2. 840.114 [id number] Univers 20:27:39 20:47:39 Only Cedric Hurst [facility] 350.1.13.10 ity of [place] 4.2.7.2.686 [place] Professio [id number] Nh dical nal [address] 2021-06-02 2021-06-02 Outpatient R BANDAR [facility] [id number] Univers 20:20:00 20:20:00 RANZHANG ity of [facility] 2021-06-02 2021-06-02 Outpatient DICLEMENTE_ MNDIMAS [facility] [address] [place] 11:05:00 11:05:00 NENITA deshpande [facility] 2021-06-02 2021-06-02 Orders Doctor AMBREEN 1.2.840.114 [id number] 00:00:00 00:00:00 Only Unassigned, DONY 350.1.13.[address] [place] [facility] 4.2.7.2.686 [id number] [facility] 2021-06-02 2021-06-02 [place] [facility] 1.2.840.114 [id number] 00:00:00 00:00:00 Zelda Whaley 350.1.13.10 [place] 4.2.7.2.686 Professio [id number] [address] 2021-06-02 2021-06-02 Orders Doctor CROOK 1.2.840.[id number] [place] [address] 00:00:00 00:00:00 Only Unassigned, DONY 350.1.13.10 ity of [place] [facility] 4.2.7.2.686 [place]an as [id number] [address] 2021-06-02 2021-06-02 Telephone Freeman, [facility] 1.2.840.114 [id number] [facility] 00:00:00 00:00:00 Zelda Whaley 350.1.13.10 ity of [place] [phone] Me dical nal [address] [facility] 2021-01-18 2021-01-18 [facility] 1.2.840.114 [id number] 00:00:00 00:00:00 Outreach Aidan PRIMARY 350.1.13.10 [facility] 4.2.7.2.686 PAVILLION [id number] 388 2021-01-18 2021-01-18 Patient [facility] 1.2.840.114 [id number] Univers 00:00:00 00:00:00 Outreach Aidan PRIMARY 350.1.13.10 i ty of [facility] [id number] [id number] Me dical [id number] 2020-09-15 2020-09-15 Outpatient [facility] [id number] [place] 02:40:00 02:40:00 1118 [facility] 2020-09-15 2020-09-15 Outpatient cMcDonald [facility] [id number] [place] 00:00:00 00:00:00 0831 Medical Group 2020-05-24 2020-05-24 Outpatient R LYDIA, [facility] [id number] Univers 08:40:00 08:40:00 ZELDA angulo [facility] 2020-04-14 2020-04-14 Outpatient cMcDonald [facility] [id number] [place] 05:40:00 05:40:00 0619 Medical Group 2020-04-13 2020-04-13 Outpatient cMcDonald [facility] [id number] [place] 07:38:00 07:38:00 0616 Medical Group 2020-04-13 2020-04-13 Maia [facility] [place] - [id number] M at[place]or 00:00:00 00:00:00 [facility] STEINER: [address] [place] [address] [address], [place] [address] , Ph. [phone] 2020-01-23 2020-03-12 [facility] [id number] 11:11:01 16:10:25 ne Visit Matt Whaley [id number] [place] [id number] Professio [id number] [address] 2020-01-23 2020-03-12 [facility] [id number] [facility] 11:11:01 16:10:25 ne Visit Matt Whaley [id number] [id number] [phone] [address] 2020-02-23 2020-02-26 Outpatient TORRES, SW MED [id number] [facility] 14:38:00 13:00:00 CYRUS 2020-02-22 2020-02-23 Inpatient U APOLINAR, FB MED [id number] MHFB 19:57:00 13:45:00 CAM 2020-01-30 2020-01-[facility] [id number] [facility] 08:10:50 15:55:51 ne Visit Matt Whaley [id number] it[id number] [phone] Nh dic[address] 2020-01-30 2020-01-[address] [facility] [id number] Univers 10:45:00 10:45:00 MATT ity of [facility] 2020-01-27 2020-01-27 Telephone [facility] 1.2.840.114 [id number] Univers 00:00:00 00:00:00 Matt Whaley [id number] i [id number] [phone] Nh dic[address] 2020-01-27 2020-01-27 Telephone [facility] 1.2.840.114 [id number] Univers 00:00:00 00:00:00 Matt Whaley [id number] [id number] [phone] Nh dic[address] 2020-01-23 2020-01-23 [id number] Univers 13:15:00 13:15:00 MATT itrigo [facility] 2020-01-23 2020-01-23 Telephone [facility] [id number] Univers 00:00:00 00:00:00 Matt Jovana [id number] [id number] [phone] [facility] 134 [facility] 2020-01-22 2020-01-22 Telemedici [facility] 1.2.840.114 [id number] Univers 08:40:14 12:05:25 ne Visit Zelda Whaley [id number] it[id number] [phone] [facility] 231 [facility] 2020-01-22 2020-01-22 Outpatient R [facility] [id number] Univers 10:40:00 10:40:00 ZELDA torigo [facility] 2019-12-12 2019-12-12 Telephone [facility] 1..840.114 [id number] Univers 00:00:00 00:00:00 Zelda Whaley [id number] it[id number] [phone] [facility] 231 [facility] 2019-12-06 2019-12-06 Refill Doctor [facility] 1.2.840.114 [id number] Univers 00:00:00 00:00:00 Unassigned, Jovana [id number] ity of [id number] [phone] [facility] 044 [facility] 2019-12-06 2019-12-06 Refill [place], [facility] 1.2.840.114 [id number] Univers 00:00:00 00:00:00 Zelda Whaley [id number] it[id number] [phone] [place] [address] [address] [facility] 2019-10-14 2019-10-14 Outpatient cMcDonald [facility] [id number] [place] 12:28:00 12:28:00 0615 [facility] [...] PREG TEST DATE (test code = 3576) [id number] 15:22:00 Test Item Value Reference Range Interpretation Comments POCT PREG (test code = 1605) Negative On board controls acceptable with C Yes Line (test code = 3574) POCT PREG LOT # (test code = 3575) POCT PREG TEST DATE (test code = 3576) [facility] [id number] 15:22:00 Test Item Value Reference Range Interpretation Comments POCT PREG (test code = 1605) Negative On board controls acceptable with C Yes Line (test code = 3574) POCT PREG LOT # (test code = 3575) POCT PREG TEST DATE (test code = 3576) [facility] acute hospital [id number] 22:27:00 Test Item Value Reference Range Interpretation Comments POCT PREG (test code = 1605) Negative On board controls acceptable with C Yes Line (test code = 3574) POCT PREG LOT # (test code = 3575) POCT PREG TEST DATE (test code = 3576) [facility] acute hospital [id number] 22:27:00 Test Item Value Reference Range Interpretation Comments POCT PREG (test code = 1605) Negative On board controls acceptable with C Yes Line (test code = 3574) POCT PREG LOT # (test code = 3575) POCT PREG TEST DATE (test code = 3576) [facility] [id number] 17:37:52 Test Item Value Reference Range Interpretation Comments WBC (test code = See_Comment [Automated 5290-2) message] The sy stem which generated this [...] RDW-SD (test code = 45.0 fL 39.0-49.9 87764-1) RDW-CV (test code = 13.5 % 12.0-15.5 788-0) PLT (test code = See_Comment [Automated 777-3) message] The sy stem which generated this result transmitted reference range : 166 - 358 10*3/ ?L. The reference r flaquito was not used to interpret this result as normal/abnormal . MPV (test code = 10.5 fL 9.5-12.9 13964-3) NRBC/100 WBC (test See_Comment [Automat ed code = 3745372980) message] The system which generated this result transmitted reference range : 0.0 - 10.0 /100 WBCs. The refer ence range was not u sed to interpret th is result as normal/abnormal . NRBC x10^3 (test code See_Comment [Auto mated = 1253438871) message] The s ystem which generated this result transmitted reference range : 10*3/?L. The reference range was not used to interpret this result as normal/abnormal . GRAN MAT (NEUT) % 50.6 % (test code = 770-8) IMM GRAN % (test code 0.50 % = 1900305532) LYMPH % (test code = 39.9 % 736-9) MONO % (test code = 7.3 % 5905-5) EOS % (test code = 1.4 % 713-8) BASO % (test code = 0.3 % 706-2) GRAN MAT x10^3(ANC) 4.40 10*3/uL 1.88-7.09 (test code = 3965239931) IMM GRAN x10^3 (test 0.04 10*3/uL 0.00-0.06 code = 7967368839) LYMPH x10^3 (test code 3.46 10*3/uL 1.32-3.29 H = 731-0) MONO x10^3 (test code 0.63 10*3/uL 0.33-0.92 = 742-7) EOS x10^3 (test code = 0.12 10*3/uL 0.03-0.39 711-2) BASO x10^3 (test code 0.03 10*3/uL 0.01-0.07 = 704-7) Lab Interpretation Abnormal (test code = 92516-9) [facility] - [facility] 2021-12-23 06:00:39 Test Item Value Reference Range Interpretation Comments Result (test code = No growth in 5 days 6463-4) [id number] 06:00:39 Test Item Value Reference Range Interpretation Comments CULTURE (BEAKER) (test No growth in 5 days code = 1095) BLOOD [id number] 03:00:36 Test Item Value Reference Range Interpretation Comments CULTURE (BEAKER) (test No growth in 5 days code = 1095) Urinalysis w/Microscopic + Reflex to [id number] 10:45:20 Test Item Value Reference Range Interpretation Comments Color, UA (test Light Yellow code = 5778-6) Clarity, UA (test Clear code = 5767-9) Specific [place], 1.014 1.001-1.035 UA (test code = 5811-5) pH, UA (test code 7.5 5.0-8.0 = 5803-2) Protein, UA (test Negative Negative code = 67497-9) Glucose, UA (test Negative Negative code = 365) Ketones, UA (test Negative Negative code = 2514-8) Bilirubin, UA Negative Negative (test code = 83566-6) Blood, UA (test Negative Negative code = 81324-5) Nitrite, UA (test Negative Negative code = 5802-4) Leukocytes, UA Negative Negative (test code = 5799-2) Urobilinogen, UA 0.2 mg/dL 0.2-1.0 (test code = 45066-6) RBC, UA (test 1 See_Comment [Automated me ssage] code = 51838-8) The system [facility] generated this result transmit aamir reference range : /HPF. The refer ence range was not u sed to interpret th is result as normal/abnormal . WBC, UA (test 1 See_Comment [Automated me ssage] code = 5821-4) The system [facility] generated this result transmit aamir reference range : /HPF. The refer ence range was not u sed to interpret th is result as normal/abnormal . Bacteria, UA Rare (test code = 80126-6) Mucus (test code Rare = 8247-9) Squam Epithel, UA 3 See_Comment [Automate d message] (test code = The system [facility] [place] [address]-2) generated this result transmit aamir reference range : /HPF. The refer ence range was not u sed to interpret th is result as normal/abnormal . Crystals, Urine None Seen (test code = 87746-7) Specimen Source (test code = 2795) SERGIO (test code = Sheet Metal Foreman ID - SERGIO) [auto]Sheet [employer] Foreman ID - tech [facility]/ REFLEX URINE [id number] 10:45:20 Test Item Value Reference Range Interpretation [...] = 1521) SOURCE(BEAKER) (test code = 2795) [employer]man ID - [auto]Sheet [employer] Foreman ID - techBasic metabolic [id number] 04:19:43 Test Item Value Reference Range Interpretation Comments Sodium (test code = 139 meq/L 124-042 5451-2) Potassium (test code = 3.6 meq/L 3.5-5.1 2823-3) Chloride (test code = 108 meq/L 98-107 H 2075-0) CO2 (test code = 25 meq/L 22-29 2028-9) BUN (test code = 13 mg/dL 7-21 3094-0) Creatinine (test code 0.84 mg/dL 0.57-1.25 = 2160-0) Glucose (test code = 112 mg/dL 70-105 H 2345-7) Calcium (test code = 9.0 mg/dL 8.4-10.2 79026-2) EGFR (test code = 79 mL/min/1.73 [place] [address]-5) NOT ACCURATE CREATININE CLEARANCE IN PREDICTING GLOMERULAR FILTRATION RATE . ESTIMATED GFR I S NOT APPLICABLE FOR DIALYSIS PATIENTS. SERGIO (test code = SERGIO) [employer] Foreman ID - SHELBY M Lab Interpretation Abnormal (test code = 04515-2) [facility] [id number] 04:19:43 Test Item Value Reference Range Interpretation [...] S NOT APPLICABLE FOR DIALYSIS PATIEN TS. [employer] Foreman ID - SHELBY MCBC with platelet count + automated [id number] 04:14:48 Test Item Value Reference Range Interpretation Comments WBC (test code = 6690-2) 8.8 See_Comment [A utomated message] The system [employer] generated this result transmitted ref erence range: 3.5 - 10 .5 K/L. The refe rence range was not u sed to interpret this result as normal/abnor mal. RBC (test code = 789-8) 4.06 See_Comment [Au tomated message] The system [employer] generated this result transmitted ref erence range: 3.93 - 5 .22 M/L. The refe rence range was not u sed to interpret this result as normal/abnor mal. MCHC (test code = 786-4) 31.2 See_Comment L [A utomated message] The system [employer] generated this result transmitted ref erence range: [...] See_Comment [Aut omated message] 777-3) The system [employer] generated this result transmitted ref erence range: 150 - 45 0 K/CU MM. The referen ce range was not u sed to interpret this result as normal/abnor mal. MPV (test code = 10.5 fL 9.4-12.3 95503-2) nRBC (test code = 413) 0 See_Comment [Aut omated message] The system [employer] generated this result transmitted ref erence range: [...] See_Comment [Aut omated message] 670) The system [employer] generated this result transmitted ref erence range: 1.56 - 6 .13 K/L. The refe rence range was not u sed to interpret this result as normal/abnor mal. # Lymphs (test code = 4.14 See_Comment H [Auto mated message] 414) The system [employer] generated this result transmitted ref erence range: 1.18 - 3 .74 K/L. The refe rence range was not u sed to interpret this result as normal/abnor mal. # Monos (test code = 0.74 See_Comment H [Autom ated message] 415) The system [employer] generated this result transmitted ref erence range: 0.24 - 0 .36 K/L. The refe rence range was not u sed to interpret this result as normal/abnor mal. # Eos (test code = 416) 0.33 See_Comment [Au tomated message] The system [employer] generated this result transmitted ref erence range: 0.04 - 0 .36 K/L. The refe rence range was not u sed to interpret this result as normal/abnor mal. # Baso (test code = 417) 0.04 See_Comment [A utomated message] The system [employer] generated this result transmitted ref erence range: 0.01 - 0 .08 K/L. The refe rence range was not u sed to interpret this result as normal/abnor mal. Immature 0 % 0-1 Granulocytes-Relative (test code = 2801) Lab Interpretation (test Abnormal code = 06220-0) [facility] W/PLT COUNT & AUTO [id number] 04:14:48 Test Item Value Reference Range Interpretation [...] % 0-1 PERCENT (BEAKER) (test code = 2806)
[2023-09-16 00:17] LABS: Absolute Lymphocytes (CBC) 4.4 K/uL (0.7-4.9); Hematocrit 33.4 % (36.0-45.0); Lymphocytes % 46.5 % (15.3-44.8); MCV 87.1 fL (80-100); MPV 8.7 fL (7.6-11.3); Platelets 255 thou/uL (152-406); RBC Red Blood Cell Count 3.84 M/uL (3.86-4.86)
[2023-09-16 00:26] LABS: Protime INR 1.05
[2023-09-16] MEDS ORDERED: LORazepam 2 MG/ML VIAL ONE (00:29)
[2023-09-16] MEDS ORDERED: ACETAMINOPHEN 500 MG TAB ONE (00:34)
[2023-09-16 00:38] LABS: ALT/SGPT 19 U/L (13-56); AST/SGOT 9 U/L (15-37); Albumin 3.1 g/dL (3.4-5.0); Alkaline Phosphatase 72 U/L (45-117); BUN Blood Urea Nitrogen 11 mg/dL (7-18); Bicarbonate 28 mEq/L (21-32); Bilirubin Total 0.3 mg/dL (0.2-1.0); Glomerular Filtration Rate 76 ml/min (=/>90); Glucose Level 93 mg/dL (74-106); Protein, Total 6.9 g/dL (6.4-8.2); Sodium Level 139 mEq/L (136-145)
[2023-09-16 00:41] LABS: Bilirubin Direct < 0.1 mg/dL (0-0.2); Bilirubin Indirect, Calculated ND mg/dL (0.2-0.8)
[2023-09-16] MEDS ORDERED: LEVETIRACETAM 500 MG/5 ML VIAL IV ONE (01:03)
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
[2023-09-16 03:37] VITALS: BP 145/90; TEMP 98; O2SAT 99
--- NOTE | 2023-09-19 17:04 | EKG ---
Test Date: 2023-09-16 Test Time: 00:23:41 [employer] Farm[employer]: ODETTE MEASUREMENT RESULTS: Intervals: Rate: 85 ND: 174 QRSD: 84 QT: 374 QTc: 445 [place]: P: 38 ND: 174 QRS: 68 T: 26 INTERPRETIVE STATEMENTS: Normal sinus rhythm Normal ECG Compared to ECG 09/05/2023 19:25:21 Sinus arrhythmia no longer present Electronically Signed On 09-19-23 16:54:42 VOLUNTEER SERVICES MANAGER by Isai Bailey
== END 2023-09-16 02:45 | disposition home or self-care (01) ==
LOC: ER 23:46
DX: R56.9 Unspecified convulsions (principal); F41.0 Panic disorder [episodic paroxysmal anxiety]; Z88.8 Allergy status to other drugs, medicaments and biological substances
CPT/HCPCS: 93005; 85025; 80048; 36415; 85610; 80076; 85730; 96375; 96374; 99284; 80143; 80179; 82077; J1953

== ENCOUNTER → 2023-11-29 | Emergency (ER) | payer OTHER, SELFPAY ==
[~2023-11-29] MED LIST: ACETAMINOPHEN 500 MG TAB ONE; DIPHENHYDRAMINE 50 MG/ML VIAL ONE; LEVETIRACETAM 500 MG/5 ML VIAL IV ONE; METOCLOPRAMIDE 10 MG/2mL INJ ONE; NA CHLORIDE 0.9% 1,000 ML ONE; NA CHLORIDE 0.9% 100 ML ONE; carBAMazepine 200 MG TAB ONE
[2023-11-29 15:30] LABS: Absolute Lymphocytes (CBC) 3.2 K/uL (0.7-4.9); Hematocrit 35.8 % (36.0-45.0); Lymphocytes % 42.3 % (15.3-44.8); MCV 87.5 fL (80-100); MPV 8.6 fL (7.6-11.3); Platelets 332 thou/uL (152-406)
[2023-11-29 15:56] LABS: ALT/SGPT 21 U/L (13-56); AST/SGOT 14 U/L (15-37); Albumin 3.3 g/dL (3.4-5.0); BUN Blood Urea Nitrogen 12 mg/dL (7-18); Bicarbonate 26 mEq/L (21-32); Bilirubin Direct < 0.1 mg/dL (0-0.2); Bilirubin Indirect, Calculated ND mg/dL (0.2-0.8); Bilirubin Total 0.5 mg/dL (0.2-1.0); Glomerular Filtration Rate 79 ml/min (=/>90); Glucose Level 106 mg/dL (74-106); Magnesium 1.7 mg/dL (1.6-2.4); Potassium 3.5 mEq/L (3.5-5.1); Sodium Level 138 mEq/L (136-145)
--- NOTE | 2023-11-29 15:56 | RAD REPORT ---
EXAM DESCRIPTION: CT - Head Brain Wo Cont - 11/29/2023 3:30 pm CLINICAL HISTORY: SEIZURE COMPARISON: Head Brain Wo Cont dated 09/06/2023; Head Brain Wo Cont dated 09/05/2023 TECHNIQUE: Noncontrast head CT images were obtained without IV contrast. Multiplanar reformats were generated and reviewed. All CT scans are performed using dose optimization technique as appropriate and may include automated exposure control or mA/KV adjustment according to patient size. FINDINGS: No intracranial hemorrhage, mass, or edema. Midline structures are unremarkable. Normal ventricular caliber for age. Guerrero-white matter differentiation is preserved, without evidence of acute infarct. No abnormal extra- axial fluid collections. Mastoid air cells and visualized portions of the paranasal sinuses are clear. No acute bony findings. IMPRESSION: No evidence of an acute intracranial process.
[2023-11-29 15:59] LABS: Alkaline Phosphatase 71 U/L (45-117)
[2023-11-29 16:46] LABS: Specific Gravity 1.017 (1.005-1.030)
[2023-11-29 16:51] LABS: Barbiturates NEGATIVE (NEGATIVE); Benzodiazepines NEGATIVE (NEGATIVE); Cocaine NEGATIVE (NEGATIVE); METHAMPHETAM NEGATIVE (NEGATIVE); Methadone NEGATIVE (NEGATIVE); Opiates NEGATIVE (NEGATIVE); Phencyclidine NEGATIVE (NEGATIVE); THC Cannibis NEGATIVE (NEGATIVE)
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
[2023-11-29 20:26] VITALS: BP 113/73; TEMP 98.2; O2SAT 100
== END ==
LOC: ER 15:19
DX: G40.509 Epileptic seizures related to external causes, not intractable, without status epilepticus (principal)
CPT/HCPCS: 36415; 70450; 80048; 80076; 80156; 80307; 81025; 83735; 85025; J1200; J1953; J2765; J7030

== ENCOUNTER → 2023-12-13 | Emergency (ER) | payer OTHER ==
[~2023-12-13] MED LIST changes: -ACETAMINOPHEN 500 MG TAB ONE; -DIPHENHYDRAMINE 50 MG/ML VIAL ONE; +IBUPROFEN 400 MG TAB ONE; +LORazepam 2 MG/ML VIAL ONE; -METOCLOPRAMIDE 10 MG/2mL INJ ONE
[2023-12-13 23:14] LABS: Absolute Lymphocytes (CBC) 3.1 K/uL (0.7-4.9); Hematocrit 35.6 % (36.0-45.0); Lymphocytes % 52.2 % (15.3-44.8); MCV 86.9 fL (80-100); Platelets 284 thou/uL (152-406)
[2023-12-13 23:27] LABS: Albumin 3.4 g/dL (3.4-5.0); Bilirubin Total 0.8 mg/dL (0.2-1.0); Potassium 3.2 mEq/L (3.5-5.1)
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
[2023-12-14 03:18] VITALS: BP 93/57; O2SAT 98
== END ==
LOC: ER 21:38
DX: G40.909 Epilepsy, unspecified, not intractable, without status epilepticus (principal); E11.9 Type 2 diabetes mellitus without complications; I10 Essential (primary) hypertension; Z88.5 Allergy status to narcotic agent; Z88.8 Allergy status to other drugs, medicaments and biological substances
CPT/HCPCS: 96365; 85025; 36415; 84703; 82947; 80053; 96375; 99284; 96366; J1953

== ENCOUNTER 2024-03-27 16:07 | Emergency (ER) | payer OTHER ==
[2024-03-27] MEDS ORDERED: NA CHLORIDE 0.9% 100 ML ONE (16:12)
[2024-03-27] MEDS ORDERED: LEVETIRACETAM 500 MG/5 ML VIAL IV ONE (16:12)
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
[2024-03-27 16:54] VITALS: BP 138/67; TEMP 98.9; O2SAT 99
== END 2024-03-27 16:34 | disposition home or self-care (01) ==
LOC: ER 16:07
DX: G40.909 Epilepsy, unspecified, not intractable, without status epilepticus (principal); I10 Essential (primary) hypertension
CPT/HCPCS: 96374; 99284; J1953

== ENCOUNTER 2024-06-27 15:18 | Emergency (ER) | payer OTHER ==
[2024-06-27 15:48] LABS: Absolute Eosinophils 0.1 K/uL (0-0.5); Absolute Lymphocytes (CBC) 2.7 K/uL (0.7-4.9); Absolute Monocytes 0.6 K/uL (0.1-1.3); Basophils % 0.4 % (0-1.3); Eosinophils % 1.1 % (0-4.4); Hematocrit 36.2 % (36.0-45.0); Hemoglobin 11.6 g/dL (12.0-15.0); Lymphocytes % 42.5 % (15.3-44.8); MCH 28.8 pg (27.0-35.0); MCHC 32.1 g/dL (32.0-36.0); MCV 89.7 fL (80-100); MPV 8.8 fL (7.6-11.3); Monocytes % 8.9 % (3.3-12.3); Neutrophils % 47.1 % (41.7-73.7); Platelets 250 thou/uL (152-406); RBC Red Blood Cell Count 4.04 M/uL (3.86-4.86); Red Cell Distribution Width 15.1 % (12.1-15.2)
[2024-06-27] MEDS ORDERED: NA CHLORIDE 0.9% 1,000 ML ONE (15:51)
[2024-06-27 15:52] LABS: PT Prothrombin Time 11.1 SECONDS (9.4-12.5); PTT, Activated Partial Thromb 30.7 SECONDS (24.3-36.9); Protime INR 0.99
[2024-06-27 16:03] LABS: ALT/SGPT 21 U/L (13-56); AST/SGOT 11 U/L (15-37); Albumin 3.1 g/dL (3.4-5.0); Albumin/Globulin Ratio 0.9 (1.1-1.8); Alkaline Phosphatase 71 U/L (45-117); Anion Gap 6.7 mEq/L (5.0-15.0); BUN Blood Urea Nitrogen 10 mg/dL (7-18); Bicarbonate 27 mEq/L (21-32); Bilirubin Total 0.4 mg/dL (0.2-1.0); Globulin 3.6 g/dL (2.3-3.5); Glomerular Filtration Rate 87 ml/min (=/>90); Glucose Level 124 mg/dL (74-106); Potassium 3.7 mEq/L (3.5-5.1); Protein, Total 6.7 g/dL (6.4-8.2); Sodium Level 140 mEq/L (136-145)
[2024-06-27 16:08] LABS: Bilirubin Direct < 0.2 mg/dL (0-0.2); Bilirubin Indirect, Calculated 0.2 mg/dL (0.2-0.8)
[2024-06-27] MEDS ORDERED: NA CHLORIDE 0.9% 100 ML ONE (16:20)
[2024-06-27] MEDS ORDERED: LEVETIRACETAM 500 MG/5 ML VIAL IV ONE (16:20)
[2024-06-27] MEDS ORDERED: dexAMETHasone 10 MG/ML VIAL ONE (17:50)
[2024-06-27] MEDS ORDERED: DIPHENHYDRAMINE 50 MG/ML VIAL ONE (17:50)
[2024-06-27] MEDS ORDERED: METOCLOPRAMIDE 10 MG/2mL INJ ONE (17:51)
[2024-06-27 19:54] LABS: Specific Gravity 1.016 (1.005-1.030)
[2024-06-27 19:55] LABS: Specific Gravity 1.018 (1.005-1.030); Sqamous Epithelial <5 /HPF (None Seen); Urine Bacteria None Seen /HPF (<20); Urine Bilirubin NEGATIVE (Negative); Urine Blood Negative (Negative); Urine Clarity Clear (Clear); Urine Color Light-Yellow (Yellow); Urine Crystals Unidentified Few /HPF (None Seen); Urine Culture Reflex Order NOT NEEDED; Urine Glucose NEGATIVE (Negative); Urine Ketones NEGATIVE (Negative); Urine Microscopic Reflex YN ORDER UMIC; Urine Nitrite NEGATIVE (Negative); Urine Protein NEGATIVE (Negative); Urine RBC <5 /HPF (None Seen); Urine Urobilinogen Normal (Normal); Urine WBC <5 /HPF (<5); Urine pH 7.5 (5.0-7.0)
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
[2024-06-27 19:59] LABS: Barbiturates NEGATIVE (NEGATIVE); Benzodiazepines POSITIVE (NEGATIVE); Cocaine NEGATIVE (NEGATIVE); METHAMPHETAM NEGATIVE (NEGATIVE); Methadone NEGATIVE (NEGATIVE); Opiates NEGATIVE (NEGATIVE); Phencyclidine NEGATIVE (NEGATIVE); THC Cannibis NEGATIVE (NEGATIVE)
[2024-06-27 20:26] VITALS: TEMP 97.8
[2024-06-27 20:29] VITALS: BP 102/79; O2SAT 100
--- NOTE | 2024-06-28 13:59 | EKG ---
Test Date: 2024-06-27 Test Time: 15:45:43 Office Support Associate: CHRIS MEASUREMENT RESULTS: Intervals: Rate: 98 MS: 170 QRSD: 78 QT: 348 QTc: 444 [place]: P: 39 MS: 170 QRS: 61 T: 18 INTERPRETIVE STATEMENTS: Normal sinus rhythm Normal ECG Compared to ECG 09/16/2023 00:23:41 No significant changes Electronically Signed On 06-28-24 13:59:15 CDT by Moiz Isaac
== END 2024-06-27 20:22 | disposition home or self-care (01) ==
LOC: ER 15:18
DX: G40.909 Epilepsy, unspecified, not intractable, without status epilepticus (principal)
CPT/HCPCS: 96365; 96361; 93005; 85025; 81001; 80048; 36415; 81025; 85610; 80076; 85730; 80307; 96375; 99284; 80143; 80179; 82077; J1953; J2765; J1200; J1100; J7030

== ENCOUNTER 2024-09-03 08:31 | Emergency (ER) | payer OTHER ==
[2024-09-03] MEDS ORDERED: CYCLOBENZAPRINE 10 MG TAB ONE (08:56)
[2024-09-03] MEDS ORDERED: ACETAMINOPHEN 325 MG TABLET ONE (08:56)
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
[2024-09-03 09:55] VITALS: BP 120/79; TEMP 97.9; O2SAT 99
== END 2024-09-03 09:47 | disposition home or self-care (01) ==
LOC: ER 08:31
DX: S16.1XXA Strain of muscle, fascia and tendon at neck level, initial encounter (principal); S63.502A Unspecified sprain of left wrist, initial encounter; V49.40XA Driver injured in collision with unspecified motor vehicles in traffic accident, initial encounter
CPT/HCPCS: 70450; 71045; 72125

== ENCOUNTER 2024-11-23 22:29 | Emergency (ER) | payer OTHER ==
[2024-11-23] MEDS ORDERED: IBUPROFEN 200 MG TAB PO ONE (22:46)
[2024-11-23 23:46] LABS: SARS-CoV-2 Antigen CONTROL BLUE LINE VIS/BG OK; SARS-CoV-2 Antigen Rapid Res Negative (Negative)
--- NOTE | 2024-11-23 23:56 | EDPHYS ---
Physician Documentation [facility] Name: Pretty Robbins Age: 34 yrs Sex: Female : 1990 Arrival Date: 11/23/2024 Time: 22:29 Bed 8 Private MD: ED Physician Romeo Bowles HPI: 11/23 22:59 This 34 yrs old Black Female presents to ER via Wheelchair with complaints of ms3 congestion, headache, bodyaches. 22:59 Pretty Robbins, a 34-year-old female, presents to the emergency department for headache, ms3 congestion, sore throat that is been ongoing for 2 days. Patient endorses nausea and night sweats. Patient denies vomiting. Patient states her discomfort is a 10/10. Patient denies taking medications prior to arrival.. 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 - Infectious Disease History:: Denies. - Social history:: Smoking status: Patient denies any tobacco usage or history of. ROS: 22:59 Cardiovascular: Negative for chest pain, and palpitations. Abdomen/GI: Negative for ms3 abdominal pain, nausea, vomiting, diarrhea, and constipation, MS/Extremity: Negative for injury and deformity, Skin: Negative for injury, rash, and discoloration, 22:59 Constitutional: Positive for body aches, malaise, 22:59 Respiratory: Positive for cough, Exam: 22:59 Constitutional: This is a well developed, well nourished patient who is awake, alert, ms3 and in no acute distress. Neck: Trachea midline, no cervical lymphadenopathy. Supple, full range of motion without nuchal rigidity, or vertebral point tenderness. No Meningismus. Chest/axilla: Normal chest wall appearance and motion. Nontender with no deformity. Cardiovascular: Regular rate and rhythm with a normal S1 and S2. No gallops, murmurs, or rubs. Normal PMI, no JVD. No pulse deficits. Respiratory: Lungs have equal breath sounds bilaterally, clear to auscultation and percussion. No rales, rhonchi or wheezes noted. No increased work of breathing, no retractions or nasal flaring. 22:59 ENT: Nose: nasal drainage, that is minimal, and is seen coming from both nares, that is clear, Vital Signs: 22:46 BP 123 / 89; Pulse 81; Resp 16; Temp 98.4; Pulse Ox 99% ; Weight 95.25 kg; Height 5 ft. me1 3 in. ; Pain 10/10; 11/24 00:25 BP 108 / 68; Pulse 76; Resp 18; Pulse Ox 97% on R/A; al5 11/23 22:46 Body Mass Index 37.20 (95.25 kg, 160.02 cm) me1 11/23 22:46 Pain Scale: Adult me1 [place] Coma Score: 11/23 22:48 Eye Response: spontaneous(4). Motor Response: obeys commands(6). Verbal Response: me1 oriented(5). Total: 15. MDM: 22:41 Medical Screening Exam initiated ms3 22:59 Differential diagnosis: Flu vs COVID vs Viral illness. ms3 11/24 00:11 Data reviewed: vital signs, nurses notes, lab test result(s), and as a result, I will ms3 discharge patient. I considered the following discharge prescriptions or medication management in the emergency department Medications were administered in the Emergency Department. See MAR. Counseling: I had a detailed discussion with the patient and/or guardian regarding the historical points, exam findings, and any diagnostic results supporting the discharge/admit diagnosis, lab results, the need for outpatient follow up. Special discussion: I discussed with the patient/guardian in detail that at this point there is no indication for admission to the hospital. It is understood, however, that if the symptoms persist or worsen the patient needs to return immediately for re-evaluation. ED course: Discussed negative flu and COVID results with the patient. Discussed possibility of false negative testing with patient. Patient with history of seizures and side effect of Tamiflu of seizures. Through shared decision making Tamiflu was not prescribed. Discussed [id number] Tylenol and ibuprofen with the patient. Encouraged oral hydration. Patient to follow-up with primary care physician in 2 to 3 days. Patient understands and agrees with plan. All questions were answered. Return precautions discussed include worsening symptoms, or any other concerns.. 11/23 22:41 Order name: Flu; Complete Time: 23:52 ms3 11/23 22:41 Order name: SARS RAPID; Complete Time: 23:52 ms3 Administered Medications: 11/23 22:53 Drug: Ibuprofen PO 600 mg PO once Route: PO; me1 11/24 00:28 Follow up: Response: No adverse reaction; No change in condition al5 Disposition Summary: 11/23/24 23:56 Discharge Ordered Notes: Location: Home ms3 Condition: Stable ms3 Diagnosis - Headache ms3 - Pain in throat ms3 - Acute upper respiratory infection, unspecified ms3 Followup: ms3 - With: Adrian Coronel DO - When: 2 - 3 days - Reason: Recheck today's complaints Discharge Instructions: - Discharge Summary Sheet ms3 - Upper Respiratory Infection, Adult ms3 - Sore Throat, [id number] ms3 Forms: - Medication Reconciliation Form ms3 - Antibiotic Education ms3 - Prescription Opioid Use ms3 - Patient Portal Instructions ms3 - Leadership Thank You Letter ms3 - Work release form br2 Prescriptions: - Tessalon Perles 100 mg Oral Capsule - take 1 capsule ORAL route every 8 hours As needed; 15 capsule; Refills: 0, ms3 Product Selection Permitted Signatures: Dispatcher [employer] EDRomeo Mantilla DO DO ms3 Nurys Warner, RN RN me1 Gisell Rees RN al5 Corrections: (The following items were deleted from the chart) 11/23 22:49 22:48 PMHx: epilepsy; me1 me1 22:49 22:48 PMHx: herniated disc; me1 me1 22:49 22:48 PMHx: herniated disc; me1 me1
--- NOTE | 2024-11-23 23:56 | ER ---
Nurse's Notes [facility] Name: Pretty Robbins Age: 34 yrs Sex: Female : 1990 Arrival Date: 11/23/2024 Time: 22:29 Bed 8 Private MD: Diagnosis: Headache;Pain in throat;Acute upper respiratory infection, unspecified Presentation: 11/23 22:46 Chief complaint: Patient states: c/o POLLACK, cough, congestion, body aches, sore throat x2 me1 days. Possible seizure as patient usually gets a POLLACK after a seizure. Coronavirus screen: Vaccine status: Patient reports receiving the 2nd dose of the covid vaccine. Ebola Screen: No symptoms or risks identified at this time. Initial Sepsis Screen: Does the patient meet any 2 criteria? No. Patient's initial sepsis screen is negative. Risk Assessment: Do you want to hurt yourself or someone else? Patient reports no desire to harm self or others. Onset of symptoms was November 21, 2024. 22:46 Method Of Arrival: Wheelchair me1 22:46 Acuity: ALESSANDRO 3 me1 11/24 00:25 Initial Sepsis Screen: Does the patient have a suspected source of infection? No. al5 Patient's initial sepsis screen is negative. 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 - Infectious Disease History:: Denies. - Social history:: Smoking status: Patient denies any tobacco usage or history of. Screenin:58 [facility] ED Fall Risk Assessment (Adult) History of falling in the last 3 months, me1 including since admission No falls in past 3 months (0 pts) Confusion or Disorientation No (0 pts) Intoxicated or Sedated No (0 pts) Impaired Gait No (0 pts) Mobility Assist Device Used No (0 pt) Altered Elimination No (0 pt) Score/Fall Risk Level 0 - 2 = Low Risk Maintained a safe environment, Provided non-skid footwear, Hourly rounding (assess needs \T\ fall precautionary measures) done. Abuse screen: Denies threats or abuse. Nutritional screening: No deficits noted. Tuberculosis screening: No symptoms or risk factors identified. Assessment: 22:58 General: Appears ill, obese, well groomed, well developed, Behavior is calm, me1 cooperative, appropriate for age, Reports c/o POLLACK, cough, congestion, body aches, sore throat x2 days. Possible seizure as patient usually gets a POLLACK after a seizure. Pain: Complains of pain in generalized Pain does not radiate. Pain currently is 10 out of 10 on a pain scale. Quality of pain is described as aching, Pain began 2-3 days ago. Is continuous. Neuro: Level of Consciousness is awake, alert, obeys commands, Oriented to person, place, time, situation, Appropriate for age. Neuro: Reports headache. Cardiovascular: Patient's skin is warm and dry. Respiratory: Reports cough that is persistent Airway is patent Respiratory effort is even, unlabored, Respiratory pattern is regular, symmetrical. GI: No signs and/or symptoms were reported involving the gastrointestinal system. : No signs and/or symptoms were reported regarding the genitourinary system. EENT: Reports nasal congestion pain when swallowing. Derm: Skin is intact, is healthy with good turgor, Skin is pink, warm \T\ dry. Musculoskeletal: Reports pain in generalized. 11/24 00:26 General: Appears in no apparent distress. comfortable, Behavior is calm, cooperative. al5 Pain: Complains of pain in head. Neuro: Level of Consciousness is awake, alert, obeys commands, Oriented to person, place, time, situation. Cardiovascular: Capillary refill < 3 seconds Patient's skin is warm and dry. Respiratory: Reports cough that is Airway is patent Respiratory effort is even, unlabored, Respiratory pattern is regular, symmetrical. GI: No signs and/or symptoms were reported involving the gastrointestinal system. : No signs and/or symptoms were reported regarding the genitourinary system. EENT: No signs and/or symptoms were reported regarding the EENT system. Derm: Skin is intact, is healthy with good turgor, Skin is pink, warm \T\ dry. normal. Musculoskeletal: Reports body aches. Vital Signs: 11/23 22:46 BP 123 / 89; Pulse 81; Resp 16; Temp 98.4; Pulse Ox 99% ; Weight 95.25 kg; Height 5 ft. me1 3 in. ; Pain 10/10; 11/24 00:25 BP 108 / 68; Pulse 76; Resp 18; Pulse Ox 97% on R/A; al5 11/23 22:46 Body Mass Index 37.20 (95.25 kg, 160.02 cm) me1 11/23 22:46 Pain Scale: Adult me1 [place] Coma Score: 11/23 22:48 Eye Response: spontaneous(4). Motor Response: obeys commands(6). Verbal Response: me1 oriented(5). Total: 15. ED Course: 22:30 Patient arrived in ED. [id number] 22:33 Romeo Bowles DO is Attending Physician. ms3 22:48 Triage completed. me1 22:48 Arm band placed on Patient placed in waiting room. me1 22:54 SARS RAPID Sent. me1 22:54 Flu Sent. me1 22:54 COVID swab sent to lab. Flu and/or RSV swab sent to lab. me1 22:58 Patient has correct armband on for positive identification. Provided Education on: POC. me1 Verbalized understanding.. 22:58 No provider procedures requiring assistance completed. me1 23:55 Adrian Coronel DO is Referral Physician. ms3 11/24 00:25 Gisell Rees, ROMI is Primary Nurse. al5 00:27 Patient did not have IV access during this emergency room visit. al5 Administered Medications: 11/23 22:53 Drug: Ibuprofen PO 600 mg PO once Route: PO; me1 11/24 00:28 Follow up: Response: No adverse reaction; No change in condition al5 Medication: 11/23 22:58 VIS not applicable for this client. me1 Outcome: 23:56 Discharge ordered by MD. ms3 11/24 00:27 Discharged to home ambulatory, al5 Condition: good Discharge instructions given to patient, Instructed on discharge instructions, follow up and referral plans. medication usage, Demonstrated understanding of instructions, follow-up care, medications, Prescriptions given X 1, 00:28 Patient left the ED. al5 Signatures: Romeo Bowles DO DO ms3 Jami Maza [id number] Nurys Warner RN RN me1 Gisell Rees RN RN al5 Corrections: (The following items were deleted from the chart) 11/23 22:49 22:48 PMHx: epilepsy; me1 me1 22:49 22:48 PMHx: herniated disc; me1 me1 22:49 22:48 PMHx: herniated disc; me1 me1 22:58 22:46 Chief complaint: Patient states: c/o POLLACK, cough, congestion, body aches, sore me1 throat x2 days. Possible seizure as patient usually gets a POLLACK after a seizure. me1
[2024-11-24 06:28] VITALS: TEMP 98.4
[2024-11-24 06:34] VITALS: BP 108/68; O2SAT 97
== END 2024-11-24 00:28 | disposition home or self-care (01) ==
LOC: ER 22:29
DX: J06.9 Acute upper respiratory infection, unspecified (principal); R07.0 Pain in throat; Z11.52 Encounter for screening for COVID-19
CPT/HCPCS: 36415; 87804; 87811; 99283

== ENCOUNTER 2024-12-21 06:22 | Emergency (ER) | payer OTHER, SELFPAY ==
[2024-12-21] MEDS ORDERED: NA CHLORIDE 0.9% 100 ML ONE (06:36)
[2024-12-21] MEDS ORDERED: LEVETIRACETAM 500 MG/5 ML VIAL IV ONE (06:36)
[2024-12-21] MEDS ORDERED: carBAMazepine 200 MG TAB ONE (06:36)
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
[2024-12-21 09:00] VITALS: TEMP 98.1
[2024-12-21 09:03] VITALS: BP 104/83; O2SAT 95
== END 2024-12-21 08:55 | disposition home or self-care (01) ==
LOC: ER 06:22
DX: G40.509 Epileptic seizures related to external causes, not intractable, without status epilepticus (principal)
CPT/HCPCS: 96374; 96375; 99284; J1953

== ENCOUNTER 2024-12-25 20:20 | Emergency (ER) | payer OTHER, SELFPAY ==
[2024-12-25] MEDS ORDERED: LEVETIRACETAM 500 MG/5 ML VIAL IV ONE (20:33)
[2024-12-25] MEDS ORDERED: NA CHLORIDE 0.9% 1,000 ML ONE (20:33)
[2024-12-25] MEDS ORDERED: DIPHENHYDRAMINE 50 MG/ML VIAL ONE (20:59)
[2024-12-25] MEDS ORDERED: carBAMazepine 200 MG TAB ONE (20:59)
[2024-12-25] MEDS ORDERED: droPERidol 5 MG/2 ML VIAL ONE (20:59)
[2024-12-25] MEDS ORDERED: METOCLOPRAMIDE 10 MG/2mL INJ ONE (20:59)
[2024-12-25 21:09] LABS: Absolute Basophils 0.1 K/uL (0-0.5); Absolute Eosinophils 0.1 K/uL (0-0.5); Absolute Lymphocytes (CBC) 4.1 K/uL (0.7-4.9); Absolute Monocytes 0.7 K/uL (0.1-1.3); Absolute Neutrophil 3.9 K/uL (1.8-8.0); Basophils % 0.6 % (0-1.3); Eosinophils % 1.2 % (0-4.4); Hematocrit 36.1 % (36.0-45.0); Hemoglobin 11.9 g/dL (12.0-15.0); Lymphocytes % 46.2 % (15.3-44.8); MCH 29.6 pg (27.0-35.0); MCV 89.6 fL (80-100); MPV 8.9 fL (7.6-11.3); Monocytes % 7.4 % (3.3-12.3); Neutrophils % 44.6 % (41.7-73.7); Nucleated Red Blood Cells % 0.2 % (0-0); Platelets 263 thou/uL (152-406); RBC Red Blood Cell Count 4.02 M/uL (3.86-4.86); Red Cell Distribution Width 14.2 % (12.1-15.2)
[2024-12-25 21:35] LABS: Albumin 3.2 g/dL (3.4-5.0); Albumin/Globulin Ratio 0.8 (1.1-1.8); Anion Gap 8.2 mEq/L (5.0-15.0); Bilirubin Total 0.4 mg/dL (0.2-1.0); Globulin 3.8 g/dL (2.3-3.5)
[2024-12-25 21:36] LABS: Potassium 4.2 mEq/L (3.5-5.1)
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
[2024-12-25 23:12] VITALS: TEMP 98.5
[2024-12-25 23:15] VITALS: O2SAT 100
[2024-12-25 23:16] VITALS: BP 124/87
== END 2024-12-25 22:33 | disposition home or self-care (01) ==
LOC: ER 20:20
DX: G40.909 Epilepsy, unspecified, not intractable, without status epilepticus (principal); G44.209 Tension-type headache, unspecified, not intractable; E11.9 Type 2 diabetes mellitus without complications; I10 Essential (primary) hypertension; J45.909 Unspecified asthma, uncomplicated; Z88.8 Allergy status to other drugs, medicaments and biological substances
CPT/HCPCS: 36415; 80053; 82550; 83605; 83690; 84703; 85025; 96365; 96366; 96375; 99285; J1200; J1790; J1953; J2765; J7030

== ENCOUNTER 2025-02-01 11:50 | Emergency (ER) | payer OTHER ==
[2025-02-01] MEDS ORDERED: LEVETIRACETAM 500 MG/5 ML VIAL IV ONE ×2 (12:09→13:06)
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
[2025-02-01] MEDS ORDERED: NA CHLORIDE 0.9% 100 ML ONE (13:06)
[2025-02-01 16:30] VITALS: TEMP 97.9
[2025-02-01 16:32] VITALS: BP 121/78; O2SAT 99
== END 2025-02-01 16:09 | disposition home or self-care (01) ==
LOC: ER 11:50
DX: G40.909 Epilepsy, unspecified, not intractable, without status epilepticus (principal)
CPT/HCPCS: 96365; 82947; 99284; J1953

== ENCOUNTER 2025-02-18 17:01 | Emergency (ER) | payer OTHER ==
[2025-02-18] MEDS ORDERED: ONDANSETRON 4 MG/2 ML VIAL ONE ×2 (18:16→19:21)
[2025-02-18] MEDS ORDERED: NA CHLORIDE 0.9% 1,000 ML ONE (18:16)
[2025-02-18 18:34] LABS: Absolute Eosinophils 0.1 K/uL (0-0.5); Absolute Lymphocytes (CBC) 3.5 K/uL (0.7-4.9); Absolute Monocytes 0.8 K/uL (0.1-1.3); Absolute Neutrophil 4.8 K/uL (1.8-8.0); Basophils % 0.5 % (0-1.3); Eosinophils % 0.8 % (0-4.4); Hematocrit 39.2 % (36.0-45.0); Hemoglobin 13.2 g/dL (12.0-15.0); Lymphocytes % 38.5 % (15.3-44.8); MCH 29.7 pg (27.0-35.0); MCHC 33.8 g/dL (32.0-36.0); MPV 8.8 fL (7.6-11.3); Monocytes % 8.2 % (3.3-12.3); Platelets 318 thou/uL (152-406); RBC Red Blood Cell Count 4.45 M/uL (3.86-4.86); Red Cell Distribution Width 14.2 % (12.1-15.2)
[2025-02-18 18:53] LABS: ALT/SGPT 19 U/L (13-56); Albumin 3.6 g/dL (3.4-5.0); Albumin/Globulin Ratio 0.9 (1.1-1.8); Alkaline Phosphatase 83 U/L (45-117); Anion Gap 6.3 mEq/L (5.0-15.0); BUN Blood Urea Nitrogen 14 mg/dL (7-18); Bicarbonate 28 mEq/L (21-32); Bilirubin Total 0.7 mg/dL (0.2-1.0); Globulin 4.2 g/dL (2.3-3.5); Glomerular Filtration Rate 66 ml/min (=/>90); Glucose Level 96 mg/dL (74-106); Lipase 50 U/L (13-75); Potassium 3.3 mEq/L (3.5-5.1); Protein, Total 7.8 g/dL (6.4-8.2); Sodium Level 137 mEq/L (136-145)
[2025-02-18 19:02] LABS: AST/SGOT < 10 U/L (15-37)
[2025-02-18 19:24] LABS: Specific Gravity > 1.030 (1.005-1.030)
[2025-02-18 19:25] LABS: Specific Gravity > 1.030 (1.005-1.030); Sqamous Epithelial <5 /HPF (None Seen); Urine Bacteria None Seen /HPF (<20); Urine Bilirubin NEGATIVE (Negative); Urine Blood 2+ (Negative); Urine Clarity Clear (Clear); Urine Color Yellow (Yellow); Urine Culture Reflex Order NOT NEEDED; Urine Glucose NEGATIVE (Negative); Urine Ketones 1+ (Negative); Urine Microscopic Reflex YN ORDER UMIC; Urine Mucus 3+ /HPF (None Seen); Urine Nitrite NEGATIVE (Negative); Urine Protein TRACE (Negative); Urine RBC <5 /HPF (None Seen); Urine Urobilinogen Normal (Normal); Urine WBC <5 /HPF (<5)
[2025-02-18] MEDS ORDERED: POTASSIUM CL SA 10 MEQ TAB PO ONE (19:45)
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
[2025-02-18] MEDS ORDERED: PROMETHAZINE 25 MG TABLET ONE (20:21)
[2025-02-18 21:21] VITALS: BP 97/55; TEMP 98.1; O2SAT 99
== END 2025-02-18 20:33 | disposition home or self-care (01) ==
LOC: ER 17:01
DX: R11.2 Nausea with vomiting, unspecified (principal); R51.9 Headache, unspecified
CPT/HCPCS: 96361; 85025; 81001; 36415; 81025; 83690; 80053; 96374; 99284; Q0169; J2405 ×2; J7030

== ENCOUNTER 2025-02-26 18:25 | Emergency (ER) | payer OTHER ==
[2025-02-26] MEDS ORDERED: ACETAMINOPHEN 500 MG TAB ONE (19:09)
[2025-02-26] MEDS ORDERED: NA CHLORIDE 0.9% 100 ML ONE (19:09)
[2025-02-26] MEDS ORDERED: LEVETIRACETAM 500 MG/5 ML VIAL IV ONE (19:09)
[2025-02-26 19:34] LABS: Absolute Eosinophils 0.1 K/uL (0-0.5); Absolute Lymphocytes (CBC) 3.4 K/uL (0.7-4.9); Absolute Monocytes 0.6 K/uL (0.1-1.3); Absolute Neutrophil 3.2 K/uL (1.8-8.0); Basophils % 0.4 % (0-1.3); Eosinophils % 1.1 % (0-4.4); Hematocrit 36.6 % (36.0-45.0); Hemoglobin 12.2 g/dL (12.0-15.0); Lymphocytes % 46.7 % (15.3-44.8); MCH 29.2 pg (27.0-35.0); MCHC 33.3 g/dL (32.0-36.0); MCV 87.8 fL (80-100); MPV 8.8 fL (7.6-11.3); Monocytes % 8.2 % (3.3-12.3); Neutrophils % 43.6 % (41.7-73.7); Nucleated Red Blood Cells % 0.1 % (0-0); Platelets 280 thou/uL (152-406); RBC Red Blood Cell Count 4.17 M/uL (3.86-4.86); Red Cell Distribution Width 14.3 % (12.1-15.2)
[2025-02-26 19:45] LABS: PTT, Activated Partial Thromb 28.8 SECONDS (27.2-37.4); Protime INR 1.06
--- NOTE | 2025-02-26 19:56 | RAD REPORT ---
EXAM: CT brain without contrast HISTORY: HEADACHE COMPARISON: 11/29/2023 TECHNIQUE: Multiple contiguous axial images were obtained and a CT of the brain without contrast. Sag ittal and coronal reformats were performed. One or more of the following dose reduction techniques were used: Automated exposure control, adjust ment of the mA and/or kV according to patient size, and/or iterative reconstruction. FINDINGS: No evidence of hydrocephalus, intracranial hemorrhage, or extra-axial fluid collection. The brain is normal in morphology. No evidence of midline shift or areas of brain edema. The calvarium is intact. The visualized paranasal sinuses and mastoid air cells are essentially clear . IMPRESSION: No evidence of acute intracranial abnormality.
[2025-02-26] MEDS ORDERED: ONDANSETRON 4 MG/2 ML VIAL ONE (20:02)
[2025-02-26] MEDS ORDERED: LORazepam 2 MG/ML VIAL ONE (20:02)
[2025-02-26 20:05] LABS: ALT/SGPT 17 U/L (13-56); AST/SGOT < 10 U/L (15-37); Albumin 3.3 g/dL (3.4-5.0); Albumin/Globulin Ratio 0.9 (1.1-1.8); Alkaline Phosphatase 66 U/L (45-117); Anion Gap 10.6 mEq/L (5.0-15.0); BUN Blood Urea Nitrogen 12 mg/dL (7-18); Bicarbonate 26 mEq/L (21-32); Bilirubin Direct < 0.2 mg/dL (0-0.2); Bilirubin Indirect, Calculated 0.1 mg/dL (0.2-0.8); Bilirubin Total 0.3 mg/dL (0.2-1.0); Globulin 3.5 g/dL (2.3-3.5); Glomerular Filtration Rate 72 ml/min (=/>90); Glucose Level 90 mg/dL (74-106); Potassium 3.6 mEq/L (3.5-5.1); Protein, Total 6.8 g/dL (6.4-8.2); Sodium Level 141 mEq/L (136-145)
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
[2025-02-26] MEDS ORDERED: carBAMazepine 200 MG TAB ONE (20:20)
[2025-02-26 21:11] VITALS: BP 121/75; TEMP 98; O2SAT 99
== END 2025-02-26 20:43 | disposition home or self-care (01) ==
LOC: ER 18:25
DX: R51.9 Headache, unspecified (principal); G40.509 Epileptic seizures related to external causes, not intractable, without status epilepticus
CPT/HCPCS: 96365; 85025; 80048; 36415; 80156; 84703; 85610; 80076; 85730; 70450; 96375; 99285; 80143; 80179; 82077; J1953; J2405; 93005

== ENCOUNTER 2025-08-15 01:01 | Emergency (ER) | payer OTHER ==
--- OUTSIDE RECORDS SUMMARY | 2025-08-15 01:10 | XMS REPORT | Continuity of Care Document ---
Author Name Unknown Address [address] [facility] [place] [address] [facility] Address [address] 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 Name Role Phone Elkwu CORSET FITTERReyesMu Primary Care Physician ANNA TORRES Attending Clinician Unavail nathaniel Freeman MD, Zelda Crump Attending Clinician + [phone] ISHAN BENNETT Attending Clinician Unavailable ISHAN BENNETT Attending Clinician Unavailable JOSE ANGEL PERALTA Attending Clinician UnavailJOSE ANGEL Paz Attending Clinician UnavailMAIA Patterson Attending Clinician Unavaila Ahsleigh Moran MD Attending Clinician + [phone] NILA PATEL Attending Clinician Unavailable Dulce Weeks MD Attending Clinician [phone] Eugene LLANOS, Zelda Hernandez Attending Clinician Un available DULCE WEEKS Attending Clinician Unavailable Doctor Unassigned, [place] Attending Clinician U jigarable Khloe Mayen MA Attending Clinician UnavailPrisca Alicia Attending Clinician UnavailCyrus Mcclelland MD Attending Clinician [phone] CYRUS TURNER Attending Clinician Unavailable Pob, [facility] Main Attending Clinician Unavailbuzz BRUCE Attending Clinician Unavailab MARYLU Monae Attending Clinician Unavail able Jade STEINER, Brett Attending Clinician + [phone] Dannielle STEINER, Edgardo Hamilton Attending Clinician Karie STEINER, Marylu Rodgers Attending Clinician [phone] Nila Rhoades Attending Clinician [phone] ZELDA FREEMAN Attending Clinician Unava ilable AIDAN LOPEZ Attending Clinician Unavail able Nurse, [facility] Pob Immunization Attending Clinician Unavailable Aidan Lopez DO Attending Clinician [phone] Gisell Villegas MD Attending Clinician [phone] Unknown, Attending Attending Clinician Unavailab le UNKNOWN, ATTENDING Attending Clinician Unavailab Vanessa Mora Attending Clinician [phone] Zelda Freeman MD Attending Clinician +[phone] Lab, Adc Fam Pob I Attending Clinician Unavailab Cedric Castaneda Attending Clinician [phone] CEDRIC PORTILLO Attending Clinician Unavailable ROGER COOK Attending Clinician Unavail able DOMINICK CHEN Attending Clinician Unavailable Teresita Attending Clinician Unavailable VERO RANDLE Attending Clinician Unavailable Matt Foster MD Attending Clinician [phone] CYRUS TORRES Attending Clinician Unav catherineable CAM JIANG Attending Clinician Unavailable MARINO SOUZA Attending Clinician Unavailable NAKUL ENAMORADO Attending Clinician Unavailable MATT FOSTER Attending Clinician Unavailable MATT FOSTER Attending Clinician Unavailable JULIO OROZCO Attending Clinician Unavailable UVALDO ODONNELL Attending Clinician Unavailable CLAUDETTE AMAYA Attending Clinician Unavailable SONIDO CARLOS Attending Clinician Unavailab PATRICK lopez BA Attending Clinician Unavailable SHAKILA BOB Attending Clinician Unavailable ADRIÁN COTTO Attending Clinician Unavailable RAUL KOCH Attending Clinician UnaNYDIA Ny Attending Clinician Unavailab SISSY Contreras Attending Clinician Unavailable JUAN FIGUEROA Attending Clinician Unavailable ELIAS MAYES Attending Clinician UnaHEATHER Overton Attending Clinician Unavailable CYRUS HANNA Attending Clinician Unavailable RONALD FLORES Attending Clinician Un available LEXI BOGGS Attending Clinician UnavailSHEREEN Devi Attending Clinician Unavailable VERO JOE Attending Clinician UnavailJOSE ANGEL Rae Admitting Clinician Unavaila nicole MONTEMAYOR_NENITA Admitting Clinician Unavailab EDGARDO Peters Admitting Clinician Aleshia vailable Teresita Admitting Clinician Unavailable JAILENE TIJERINA Admitting Clinician UnavailMAIA Arcos Admitting Clinician Unavaila ble HEATHVERO Admitting Clinician Unavailbuzz e Payers Payer Name Policy Type Policy Number Effective Date Expirati on Date Source [employer] MEDICAID [id number] 2019 00:00:[address] [facility] [id number] 2024 00:00:00 HIM AMBETTER FROM [facility] [id number] 2022 00:00:00 MEDICAID COMM HEALTH CHOICE [id number] 2021 00:00:00 [facility] (MEDICAID REPLACEMENT - HMO) [id number] [place] [id number] Problems Condition Name Condition Details Condition Category Status Onset Date Resolution Date Last Treatment Date Treating Clinician Comments Source Acute vaginitis Acute vaginitis Disease Active 07-24 00:00: 00 [facility] Ingrown hair Ingrown hair Disease Active 07-24 00:00: 00 [facility] Oral contracept ghislaine pill surveillan ce Oral contracept ghislaine pill surveillan ce Disease Active 07-24 00:00: 00 [facility] Screening for malignant neoplasm of the cervix Screening for malignant neoplasm of the cervix Disease Active 07-24 00:00: 00 [facility] History of epilepsy History of epilepsy Disease Active 07-24 00:00: 00 [facility] Morbid obesity with body mass index of 40.0-49.9 Morbid obesity with body mass index of 40.0-49.9 Disease Active 3- 00:00: 00 [facility] Screening examinatio n for venereal disease Screening examinatio n for venereal disease Disease Active 11-19 00:00: 00 [facility] Lipid disorder Lipid disorder Disease Active 11-18 00:00: 00 [facility] Thickened endometriu m Thickened endometriu m Disease Active 1 00:00: 00 [facility] Menorrhagi a with irregular cycle Menorrhagi a with irregular cycle Disease Active 10-31 00:00: 00 [facility] Pain pelvic Pain pelvic Disease Active 2021-10 00:00: 00 [facility] History of ovarian cyst History of ovarian cyst Disease Active 2021-10 00:00: 00 [facility] Patient desires Patient desires Disease Active 2021-10 00:00: 00 [facility] Vaping nicotine dependence , non-tobacc o product Vaping nicotine dependence , non-tobacc o product Disease Active 2021-10 00:00: 00 [facility] BMI 40.0-44.9, adult BMI 40.0-44.9, adult Disease Active 2021-10 00:00: 00 [facility] 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 Disease Active 2021-10 00:00: 00 [facility] Status epilepticu s Status epilepticu s Disease Active 12-18 00:00: 00 [facility] UTI due to trichomona s vaginalis UTI due to trichomona s vaginalis Disease Active 2022-0 2-20 00:00: 00 [facility] Status epilepticu s Status epilepticu s Disease Active 2-19 00:00: 00 [facility] Epilepsy Epilepsy Disease Recurre nce 2-19 00:00: 00 [facility] Cough Cough Disease Active 2-14 00:00: 00 [facility] Congestion of nasal sinus Congestion of nasal sinus Disease Active 214 00:00: 00 [facility] Nausea Nausea Disease Active 214 00:00: 00 [facility] Acute otitis externa of right ear, unspecifie d type Acute otitis externa of right ear, unspecifie d type Disease Active 214 00:00: 00 [facility] Upper respirator y tract infection, unspecifie d type Upper respirator y tract infection, unspecifie d type Disease Active 14 00:00: 00 [facility] Gastroesop hageal reflux disease without esophagiti s Gastroesop hageal reflux disease without esophagiti s Disease Active 14 00:00: 00 [facility] BMI 38.0-38.9, adult BMI 38.0-38.9, adult Disease Active 9 00:00: 00 [facility] Irregular menstrual cycle Irregular menstrual cycle Disease Active 3-12 00:00: 00 [facility] Asthma, unspecifie d asthma severity, unspecifie d whether complicate d, unspecifie d whether persistent Asthma, unspecifie d asthma severity, unspecifie d whether complicate d, unspecifie d whether persistent Disease Active 02-18 00:00: 00 [facility] Essential hypertensi on Essential hypertensi on Disease Active 04-21 00:00: 00 [facility] Other migraine without status migrainosu s, not intractabl e Other migraine without status migrainosu s, not intractabl e Disease Active 04-21 00:00: 00 [facility] Uncomplica aamir asthma, unspecifie d asthma severity Uncomplica aamir asthma, unspecifie d asthma severity Disease Active 04-21 00:00: 00 [facility] Pain of upper abdomen Pain of upper abdomen Disease Active 04-21 00:00: 00 [facility] Anxiety Anxiety Disease Resolve d 04-21 00:00: 00 2022-10-31 00:00:00 2022-10-31 16:40:38 [facility] Allergies, Adverse Reactions, Alerts Allergy Name Allergy Type Status Severity Reaction(s) Onset Date Inactive Date Treating Clinician Comments Source CARBAMAZ EPINE Allergy Active High Sob 2-19 00:00: 00 [facility] FOSPHENY TOIN Allergy Active Itching 12-17 00:00: 00 [facility] CARBAMAZ EPINE DRUG INGREDI Active High ITCHING 2-19 00:00: 00 [facility] FOSPHENY TOIN DRUG INGREDI Active ITCHING 2- 00:00: 00 [facility] Fospheny toin Propensi ty to adverse reaction s Active Itching 2-19 00:00: 00 [facility] Carbamaz epine Propensi ty to adverse reaction s Active Shortness Of Breath, Itching, Rash -19 00:00: 00 [facility] Toradol Propensi ty to adverse reaction to drug Inactiv e 2-17 00:00: 00 Louie Williamson KETOROLA C Allergy Active High Hives 04-20 00:00: 00 [facility] KETOROLA C DRUG INGREDI Active High Hives 04-20 00:00: 00 [facility] Ketorola c Propensi ty to adverse reaction s Active Shortness of Breath 04-20 00:00: 00 Can take aspirin and ibuprofen without problem. [facility] Ketorola c Drug Allergy Active Hives, Itching, Rash, Shortness Of Breath 04-20 00:00: 00 Can take aspirin and ibuprofen without problem. [facility] Social History Social Habit Start Date Stop Date Quantity Comments Source History of tobacco use 2012-04-20 00:00:00 Cigarette Smoker [facility] History SDOH Alcohol Std Drinks [facility] History SDOH Alcohol Binge [facility] History SDOH Alcohol Comment [facility] History of Occupation [facility] Sexual orientation [facility] ASSERTION Possible [facility] History of Social function 2023-11-15 00:00:00 2023-11-15 00:00:00 [facility] Exposure to SARS-CoV-2 (event) 2022-12-22 00:00:00 2023-01-01 11:43:00 Not sure [facility] Alcohol intake 2021-12-18 00:00:00 2021-12-18 00:00:00 Lifetime non-drinker (finding) [facility] History SDOH Alcohol Frequency - How often do you have a drink containing alcohol? 2021-12-18 00:00:00 2021-12-18 00:00:00 Never [facility] Alcoholic beverage intake 2021-12-18 00:00:00 2021-12-18 00:00:00 Lifetime non-drinker (finding) [facility] Sex 2021-12-17 13:25:21 2021-12-17 13:25:21 Female (finding) [facility] Tobacco Comment 2019-01-07 00:00:00 2019-01-07 00:00:00 3-4 ciggs a day [facility] Tobacco use and exposure 2017-04-20 00:00:00 2017-04-20 00:00:00 Smokeless tobacco non-user [facility] Sex assigned at 1990 00:00:00 1990 00:00:00 [facility] Smoking Status Start Date Stop Date Source Ex-smoker 2022-10-18 00:00:00 2022-10[facility]18 [facility] Light tobacco smoker 2017-04-20 00:00:00 [facility] Medications Ordered Medication Name Filled Medication Name Start Date Stop Date Current Medication? Ordering Clinician Indication Dosage Frequency Signature (SIG) Comments Components Source metroNIDAZO LE (FLAGYL) 500 mg tablet 07-27 00:00: 00 08-02 04:59 :00 No [id number] 500mg Take 1 tablet by mouth in the morning and 1 tablet in the evening. Do all this for 5 days. [facility] sumatriptan succinate (IMITREX ORAL) 07-24 14:43: 28 Yes Take by mouth. [facility] levonorgest rel-ethinyl estradiol 0.15 mg-30 mcg (91) per tablet 07-24 00:00: 00 Yes [id number] 1{tbl} Take 1 tablet by mouth in the morning. [facility] fluconazole 200 mg tablet 07-24 00:00: 00 Yes [id number] 200mg Take 1 tablet by mouth every 3 (three) days. [facility] triamcinolo ne acetonide 0.1 % cream 07-24 00:00: 00 Yes [id number] Apply to area(s) 2 (two) times daily. [facility] omeprazole 40 mg capsule 07-22 00:00: 00 Yes [facility] valsartan-h ydrochlorot hiazide 160-25 mg per tablet 06-26 00:00: 00 Yes 1{tbl} Take 1 tablet by mouth in the morning. [facility] furosemide 40 mg tablet 06-21 00:00: 00 Yes 40mg Take 1 tablet by mouth in the morning. [facility] OZEMPIC 0.25 mg or 0.5 mg (2 mg/3 mL) PnIj 04-30 00:00: 00 Yes INJECT 0.5 MG SUBCUTANEO USLY EVERY WEEK FOR 28 DAYS. [facility] ibuprofen (IBU) tablet 600 mg 303 16:15: 00 12-30 04:14 :00 No [id number] [facility] mg tablet 1-18 00:00: 00 Yes [id number] 800mg Take 1 tablet by mouth every 6 (six) hours as needed for Pain (scale 4-6). [facility] Norethindro ne Acet-Ethiny l Est (LOESTRIN 1.5, ,) 1.5-30 mg-mcg per tablet 11-15 00:00: 00 07-24 00:00 :00 No [id number] 1{tbl} Take 1 tablet by mouth in the morning. [facility] norethindro ne (ORTHO MICRONOR) 0.35 mg tablet 10-31 00:00: 00 11-19 00:00 :00 No [id number] .35mg Take 1 tablet by mouth in the morning. [facility] norethindro ne (ORTHO MICRONOR) 0.35 mg tablet 2021-10 00:00: 00 11-19 00:00 :00 No [id number] .35mg Take 1 tablet by mouth in the morning. [facility] TAKE 1 TABLET BY MOUTH EVERY DAY 07-18 00:00: 00 Yes Louie Williamson FLUTICASONE SPR 50MCG 07-18 00:00: 00 Yes Louie Williamson levETIRAcet am (KEPPRA) 500 MG tablet 12-18 00:00: 00 Yes 500mg Q.5D Take 1 tablet (500 mg total) by mouth 2 (two) times daily. [facility] traMADoL 100 mg Tab 12-18 00:00: 00 Yes 100mg Take 100 mg by mouth every 8 (eight) hours as needed. Max Daily Amount: 300 mg [facility] metroNIDAZO LE (FLAGYL) 500 MG tablet 12-18 00:00: 00 12-25 23:59 :00 No 500mg Q.5D Take 1 tablet (500 mg total) by mouth 2 (two) times daily for 7 days First dose 12/18 PM. Start twice daily dosing 12/19 AM. [facility] HYDROcodone -acetaminop hen (NORCO 5-325) 5-325 mg per tablet 12-18 00:00: 00 12-20 23:59 :00 No 1{tbl} Take 1 tablet by mouth every 8 (eight) hours as needed (Severe pain) for up to 2 days. Max Daily Amount: 3 tablets [facility] methylPREDN ISolone (MEDROL, BAMBI,) 4 mg tablets 12-13 00:00: 00 Yes [id number] Take by mouth SEE-INSTRU CTIONS. follow package directions [facility] omeprazole 40 mg capsule 12-12 00:00: 00 12-27 05:59 :00 No [id number] 40mg Take 1 capsule by mouth daily for 14 days. [facility] bromphenira mine-pseudo ephedrine-D M (BROMFED DM) 2-30-10 mg/5 mL syrup 12-12 00:00: 00 12-23 05:59 :00 No [id number] 10mL Take 10 mL by mouth 4 (four) times daily as needed for Congestion /Allergies for up to 10 days. [facility] ondansetron (ZOFRAN) 4 mg tablet 12-12 00:00: 00 12-23 05:59 :00 No [id number] 4mg Take 1 tablet by mouth every 8 (eight) hours as needed for Nausea and Vomiting (N/V) for up to 10 days. [facility] ciprofloxac in-dexameth asone (CIPRODEX) 0.3-0.1 % otic drops 12-12 00:00: 00 12-23 05:59 :00 No [id number] 4[drp] Place 4 Drops in right ear 2 (two) times daily for 10 days. [facility] ibuprofen 600 mg tablet 12-12 00:00: 00 12-23 05:59 :00 No [id number] 05582 600mg Take 1 tablet by mouth every 6 (six) hours as needed for Pain (scale 4-6) for up to 10 days. [facility] sumatriptan succinate (IMITREX ORAL) 2020-10 10:19: 04 Yes Take by mouth. [facility] cetirizine (ZYRTEC) 10 mg tablet 2020-10 0 00:00: 00 Yes [id number] 10mg Take 1 tablet by mouth daily. [facility] azelastine 137 mcg (0.1 %) nasal spray 2020-10 0 00:00: 00 Yes [id number] 1{spray } Use 1 Adrian in each nostril 2 (two) times daily. Use in each nostril as directed [facility] fluticasone propionate 50 mcg/actuati on nasal spray 2020-10 0 00:00: 00 Yes [id number] 1{spray } Use 1 Adrian in each nostril daily. [facility] bromphenira mine-pseudo ephedrine-D M (BROMFED DM) 2-30-10 mg/5 mL syrup 2020-10 0 00:00: 00 12-12 00:00 :00 No [id number] 5mL Take 5 mL by mouth 4 (four) times daily as needed for Congestion /Allergies . [facility] ibuprofen 600 mg tablet 07-21 00:00: 00 12-12 00:00 :00 No [id number] 600mg Take 1 tablet by mouth every 6 (six) hours as needed for Pain (scale 4-6). [facility] benzonatate 100 mg capsule 07-08 00:00: 00 Yes [id number] 100mg Take 1 capsule by mouth 3 (three) times daily as needed for Cough. [facility] medroxyPROG ESTERone (PROVERA) 10 mg tablet 4-03 00:00: 00 10-18 00:00 :00 No [id number] Take one by mouth days one through 10 of each month beginning 02/27/20. [facility] amitriptyli ne 25 mg tablet - 00:00: 00 Yes [id number] 25mg Take 1 tablet by mouth at bedtime. [facility] metoprolol tartrate 50 mg tablet - 00:00: 00 Yes [id number] 50mg Take 1 tablet by mouth 2 (two) times daily. [facility] budesonide- formoteroL 160-4.5 mcg/actuati on inhaler 12-12 00:00: 00 Yes [id number] 2{puff} Inhale 2 Puffs 2 (two) times daily. [facility] albuterol 90 mcg/actuati on inhaler 12-12 00:00: 00 Yes [id number] 2{puff} Inhale 2 Puffs every 6 (six) hours as needed for Wheezing or Shortness of Breath. [facility] indomethaci n 50 mg capsule 12-12 00:00: 00 Yes [id number] 50mg Take 1 capsule by mouth 3 (three) times daily with meals. [facility] levETIRAcet am (KEPPRA) 500 mg tablet 12-12 00:00: 00 Yes [id number] 500mg Take 1 tablet by mouth 2 (two) times daily. [facility] topiramate 25 mg tablet 11-25 00:00: 00 Yes [facility] carBAMazepi ne 200 mg tablet 11-17 00:00: 00 Yes [facility] naproxen 500 mg tablet 2018-10 016 00:00: 00 01-21 00:00 :00 No [id number] 500mg Take 1 tablet by mouth every 8 (eight) hours as needed for Pain (scale 1-3) or Pain (scale 4-6). [facility] ipratropium 0.03 % nasal spray 2018-1016 00:00: 00 12-06 00:00 :00 No [id number] 2{spray } Use 2 Sprays in each nostril 3 (three) times daily. [facility] albuterol 90 mcg/actuati on inhaler 2018-10 015 00:00: 00 12-06 00:00 :00 No 2{puff} Inhale 2 Puffs every 6 (six) hours as needed for Wheezing or Shortness of Breath. [facility] budesonide- formoterol 160-4.5 mcg/actuati on inhaler 2018-10 015 00:00: 00 12-06 00:00 :00 No 2{puff} Inhale 2 Puffs 2 (two) times daily. [facility] indomethaci n 50 mg capsule 2018-10 00:00: 12-06 00:00 :00 No [id number] 50mg Take 1 capsule by mouth 3 (three) times daily with meals. [facility] levETIRAcet am (KEPPRA) 500 mg tablet 2018-10 00:0012-06 00:00 :00 No [id number] 500mg Take 1 tablet by mouth 2 (two) times daily. [facility] metoprolol tartrate 25 mg tablet 2018-10 00:00: 12-06 00:00 :00 No [id number] Take BP twice a day.If SBP is less than 130 take 25mg, if over 130 can take 50mg.If heart rate is under 60 only take 25mg, do not take 50mg. [facility] predniSONE 20 mg tablet 2018-10 00:00: 12-06 00:00 :00 No [id number] 20mg Take 1 tablet by mouth 2 (two) times daily. [facility] codeine-gua ifenesin 10-100 mg/5 mL solution 01-07 00:00: 00 01-21 00:00 :00 No [id number] 5mL Take 5 mL by mouth every 6 (six) hours as needed for Cough. [facility] ipratropium 0.03 % nasal spray 01-07 00:00: 00 08-12 00:00 :00 No [id number] 2{spray } Use 2 Sprays in each nostril 3 (three) times daily. [facility] NORGESTIMAT E-ETHINYL ESTRADIOL (ESTARYLLA ORAL) 12-16 15:32: 39 12-16 00:00 :00 No Take by mouth. [facility] ibuprofen 200 mg tablet 12-16 15:32: 04 12-16 00:00 :00 No 200mg Take 200 mg by mouth as needed. [facility] naproxen 500 mg tablet 12-16 00:00: 00 08-12 00:00 :00 No [id number] 500mg Take 1 tablet by mouth every 8 (eight) hours as needed for Pain (scale 1-3) or Pain (scale 4-6). [facility] Dose Unknown 07-20 00:00: 00 Yes Louie Williamson amoxicillin 875 mg tablet 07-19 00:00: 00 Yes 1mg Louie Williamson Symbicort 160 mcg-4.5 mcg/actuati on HFA aerosol inhaler 04-03 00:00: 00 Yes 1mcg/ac tuation Louie Williamson ProAir HFA 90 mcg/actuati on aerosol inhaler 11-01 00:00: 00 Yes 2mcg/ac tuation Louie Williamson Zithromax Z-Bambi 250 mg tablet 11-01 00:00: 00 Yes mg Louie Williamson prednisone 20 mg tablet 11-01 00:00: 00 Yes 1mg Louie Williamson promethazin e-DM 6.25 mg-15 mg/5 mL syrup 11-01 00:00: 00 Yes 10mg/5 mL Louie Williamson ProAir HFA 90 mcg/actuati on aerosol inhaler 10-31 00:00: 00 Yes 2mcg/ac tuation Louie Williamson SUMATRIPTAN 50 mg tablet 06-03 00:00: 00 12-16 00:00 :00 No [id number] TAKE 1 TABLET AT FIRST SIGN OF MIGRAINE IF MIGRAINE STILL PERSISTS 2 HOURS LATER TAKE 2ND TABLET [facility] traMADOL 50 mg tablet 04-30 00:00: 00 12-16 00:00 :00 No [id number] 25mg Take 0.5 tablets by mouth every 8 (eight) hours as needed for Pain (scale 1-3), Pain (scale 4-6) or Pain (scale 7-10) (migraines ). [facility] albuterol 90 mcg/actuati on inhaler 04-20 00:00: 00 01-30 00:00 :00 No [id number] 2{puff} Inhale 2 Puffs every 6 (six) hours as needed for Wheezing or Shortness of Breath. [facility] SUMAtriptan 50 mg tablet 04-20 00:00: 00 06-03 00:00 :00 No [id number] Take 1 pill at first sign of migraine, if still with migraine 2 hours later take a second one. [facility] Blisovi Fe 1.5/30 (28) 1.5 mg-30 mcg (21)/75 mg (7) tablet TAKE 1 TABLET BY MOUTH EVERY DAY [place] Fe 1.5/30 (28) 1.5 mg-30 mcg (21)/75 mg (7) tablet TAKE 1 TABLET BY MOUTH EVERY DAY No [place] Fe 1.5/30 (28) 1.5 mg-30 mcg (21)/75 mg (7) tablet TAKE 1 TABLET BY MOUTH EVERY [facility] Immun[facility] Ordered Immunization Name Filled Immunization Name Date Status Comments Source Influenza Virus Vaccine Quad IM 3+ YRS 2023-07-27 00:00:00 Completed [facility] SARS-COV-2 COVID-19 MODERNA 12+ YRS VACCINE 2023-07-27 00:00:00 Completed [facility] Influenza Virus Vaccine Quad IM 3+ YRS 2023-07-24 15:00:00 Completed [facility] SARS-COV-2 COVID-19 MODERNA 12+ YRS VACCINE 2023-07-24 15:00:00 Completed [facility] Influenza Virus Vaccine Quad IM 3+ YRS 2023-07-24 00:00:00 Completed [facility] SARS-COV-2 COVID-19 MODERNA 12+ YRS VACCINE 2023-07-24 00:00:00 Completed [facility] SARS-COV-2 COVID-19 VACCINE - (MODERNA) 2022-04-12 00:00:00 Completed [facility] SARS-COV-2 COVID-19 VACCINE - (MODERNA) 2022-04-12 00:00:00 Completed [facility] SARS-COV-2 COVID-19 VACCINE - (MODERNA) 2022-04-12 00:00:00 Completed [facility] SARS-COV-2 COVID-19 VACCINE - (MODERNA) 2022-04-12 00:00:00 Completed [facility] SARS-COV-2 COVID-19 VACCINE - (MODERNA) 2022-04-12 00:00:00 Completed [facility] SARS-COV-2 COVID-19 VACCINE - (MODERNA) 2022-04-12 00:00:00 Completed [facility] SARS-COV-2 COVID-19 VACCINE - (MODERNA) 2022-04-12 00:00:00 Completed [facility] SARS-COV-2 COVID-19 VACCINE - (MODERNA) 2022-04-12 00:00:00 Completed [facility] SARS-COV-2 COVID-19 VACCINE - (MODERNA) 2022-04-12 00:00:00 Completed [facility] SARS-COV-2 COVID-19 VACCINE - (MODERNA) 2022-04-12 00:00:00 Completed [facility] SARS-COV-2 COVID-19 VACCINE - (MODERNA) 2022-04-12 00:00:00 Completed [facility] SARS-COV-2 COVID-19 VACCINE - (MODERNA) 2022-04-12 00:00:00 Completed [facility] SARS-COV-2 COVID-19 VACCINE - (MODERNA) 2022-04-12 00:00:00 Completed [facility] SARS-COV-2 COVID-19 MODERNA 12+ YRS VACCINE 2021-10-12 00:00:00 Completed [facility] SARS-COV-2 COVID-19 MODERNA 12+ YRS VACCINE 2021-10-12 00:00:00 Completed [facility] SARS-COV-2 COVID-19 MODERNA 12+ YRS VACCINE 2021-10-12 00:00:00 Completed [facility] SARS-COV-2 COVID-19 MODERNA 12+ YRS VACCINE 2021-10-12 00:00:00 Completed [facility] SARS-COV-2 COVID-19 MODERNA 12+ YRS VACCINE 2021-10-12 00:00:00 Completed [facility] SARS-COV-2 COVID-19 MODERNA 12+ YRS VACCINE 2021-10-12 00:00:00 Completed [facility] SARS-COV-2 COVID-19 MODERNA 12+ YRS VACCINE 2021-10-12 00:00:00 Completed [facility] SARS-COV-2 COVID-19 MODERNA 12+ YRS VACCINE 2021-10-12 00:00:00 Completed [facility] SARS-COV-2 COVID-19 MODERNA 12+ YRS VACCINE 2021-10-12 00:00:00 Completed [facility] SARS-COV-2 COVID-19 MODERNA 12+ YRS VACCINE 2021-10-12 00:00:00 Completed [facility] SARS-COV-2 COVID-19 MODERNA 12+ YRS VACCINE 2021-10-12 00:00:00 Completed [facility] SARS-COV-2 COVID-19 MODERNA 12+ YRS VACCINE 2021-10-12 00:00:00 Completed [facility] SARS-COV-2 COVID-19 MODERNA 12+ YRS VACCINE 2021-10-12 00:00:00 Completed [facility] SARS-COV-2 COVID-19 MODERNA 12+ YRS VACCINE 2021-10-12 00:00:00 Completed [facility] SARS-COV-2 COVID-19 MODERNA VACCINE 2021-10-12 00:00:00 Completed [facility] SARS-COV-2 COVID-19 MODERNA VACCINE 2021-10-12 00:00:00 Completed [facility] SARS-COV-2 COVID-19 MODERNA VACCINE 2021-10-12 00:00:00 Completed [facility] SARS-COV-2 COVID-19 MODERNA VACCINE 2021-10-12 00:00:00 Completed [facility] SARS-COV-2 COVID-19 MODERNA VACCINE 2021-10-12 00:00:00 Completed [facility] SARS-COV-2 COVID-19 MODERNA 12+ YRS VACCINE 2021-10-12 00:00:00 Completed [facility] SARS-COV-2 COVID-19 MODERNA 12+ YRS VACCINE 2021-10-12 00:00:00 Completed [facility] SARS-COV-2 COVID-19 MODERNA 12+ YRS VACCINE 2021-10-12 00:00:00 Completed [facility] SARS-COV-2 COVID-19 MODERNA 12+ YRS VACCINE 2021-10-12 00:00:00 Completed [facility] SARS-COV-2 COVID-19 MODERNA 12+ YRS VACCINE 2021-10-12 00:00:00 Completed [facility] SARS-COV-2 COVID-19 MODERNA 12+ YRS VACCINE 2021-10-12 00:00:00 Completed [facility] SARS-COV-2 COVID-19 MODERNA 12+ YRS VACCINE 2021-10-12 00:00:00 Completed [facility] SARS-COV-2 COVID-19 MODERNA 12+ YRS VACCINE 2021-09-14 00:00:00 Completed [facility] SARS-COV-2 COVID-19 MODERNA 12+ YRS VACCINE 2021-09-14 00:00:00 Completed [facility] SARS-COV-2 COVID-19 MODERNA 12+ YRS VACCINE 2021-09-14 00:00:00 Completed [facility] SARS-COV-2 COVID-19 MODERNA 12+ YRS VACCINE 2021-09-14 00:00:00 Completed [facility] SARS-COV-2 COVID-19 MODERNA 12+ YRS VACCINE 2021-09-14 00:00:00 Completed [facility] SARS-COV-2 COVID-19 MODERNA 12+ YRS VACCINE 2021-09-14 00:00:00 Completed [facility] SARS-COV-2 COVID-19 MODERNA 12+ YRS VACCINE 2021-09-14 00:00:00 Completed [facility] SARS-COV-2 COVID-19 MODERNA 12+ YRS VACCINE 2021-09-14 00:00:00 Completed [facility] SARS-COV-2 COVID-19 MODERNA 12+ YRS VACCINE 2021-09-14 00:00:00 Completed [facility] SARS-COV-2 COVID-19 MODERNA 12+ YRS VACCINE 2021-09-14 00:00:00 Completed [facility] SARS-COV-2 COVID-19 MODERNA 12+ YRS VACCINE 2021-09-14 00:00:00 Completed [facility] SARS-COV-2 COVID-19 MODERNA 12+ YRS VACCINE 2021-09-14 00:00:00 Completed [facility] SARS-COV-2 COVID-19 MODERNA 12+ YRS VACCINE 2021-09-14 00:00:00 Completed [facility] SARS-COV-2 COVID-19 MODERNA 12+ YRS VACCINE 2021-09-14 00:00:00 Completed [facility] SARS-COV-2 COVID-19 MODERNA VACCINE 2021-09-14 00:00:00 Completed [facility] SARS-COV-2 COVID-19 MODERNA VACCINE 2021-09-14 00:00:00 Completed [facility] SARS-COV-2 COVID-19 MODERNA VACCINE 2021-09-14 00:00:00 Completed [facility] SARS-COV-2 COVID-19 MODERNA VACCINE 2021-09-14 00:00:00 Completed [facility] SARS-COV-2 COVID-19 MODERNA VACCINE 2021-09-14 00:00:00 Completed [facility] SARS-COV-2 COVID-19 MODERNA 12+ YRS VACCINE 2021-09-14 00:00:00 Completed [facility] SARS-COV-2 COVID-19 MODERNA 12+ YRS VACCINE 2021-09-14 00:00:00 Completed [facility] SARS-COV-2 COVID-19 MODERNA 12+ YRS VACCINE 2021-09-14 00:00:00 Completed [facility] SARS-COV-2 COVID-19 MODERNA 12+ YRS VACCINE 2021-09-14 00:00:00 Completed [facility] SARS-COV-2 COVID-19 MODERNA 12+ YRS VACCINE 2021-09-14 00:00:00 Completed [facility] SARS-COV-2 COVID-19 MODERNA 12+ YRS VACCINE 2021-09-14 00:00:00 Completed [facility] SARS-COV-2 COVID-19 MODERNA 12+ YRS VACCINE 2021-09-14 00:00:00 Completed [facility] Influenza Virus Vaccine Quad IM 3+ YRS 2021-08-04 00:00:00 Completed [facility] Influenza Virus Vaccine Quad IM 3+ YRS 2018-12-16 00:00:00 Completed [facility] Influenza Virus Vaccine Quad IM 3+ YRS 2018-12-16 00:00:00 Completed [facility] Influenza Virus Vaccine Quad IM 3+ YRS 2018-12-16 00:00:00 Completed [facility] Influenza Virus Vaccine Quad IM 3+ YRS 2018-12-16 00:00:00 Completed [facility] Influenza Virus Vaccine Quad IM 3+ YRS 2018-12-16 00:00:00 Completed [facility] Influenza Virus Vaccine Quad IM 3+ YRS 2018-12-16 00:00:00 Completed [facility] Influenza Virus Vaccine Quad IM 3+ YRS 2018-12-16 00:00:00 Completed [facility] Influenza Virus Vaccine Quad IM 3+ YRS 2018-12-16 00:00:00 Completed [facility] Influenza Virus Vaccine Quad IM 3+ YRS 2018-12-16 00:00:00 Completed [facility] Influenza Virus Vaccine Quad IM 3+ YRS 2018-12-16 00:00:00 Completed [facility] Influenza Virus Vaccine Quad IM 3+ YRS 2018-12-16 00:00:00 Completed [facility] Influenza Virus Vaccine Quad IM 3+ YRS 2018-12-16 00:00:00 Completed [facility] Influenza Virus Vaccine Quad IM 3+ YRS 2018-12-16 00:00:00 Completed [facility] Influenza Virus Vaccine Quad IM 3+ YRS 2018-12-16 00:00:00 Completed [facility] Influenza Virus Vaccine Quad IM 3+ YRS 2018-12-16 00:00:00 Completed [facility] Influenza Virus Vaccine Quad IM 3+ YRS 2018-12-16 00:00:00 Completed [facility] Influenza Virus Vaccine Quad IM 3+ YRS 2018-12-16 00:00:00 Completed [facility] Influenza Virus Vaccine Quad IM 3+ YRS 2018-12-16 00:00:00 Completed [facility] Influenza Virus Vaccine Quad IM 3+ YRS 2018-12-16 00:00:00 Completed [facility] Influenza Virus Vaccine Quad IM 3+ YRS 2018-12-16 00:00:00 Completed [facility] Influenza Virus Vaccine Quad IM 3+ YRS 2018-12-16 00:00:00 Completed [facility] Influenza Virus Vaccine Quad IM 3+ YRS 2018-12-16 00:00:00 Completed [facility] Influenza Virus Vaccine Quad IM 3+ YRS 2018-12-16 00:00:00 Completed [facility] Influenza Virus Vaccine Quad IM 3+ YRS 2018-12-16 00:00:00 Completed [facility] Influenza Virus Vaccine Quad IM 3+ YRS 2018-12-16 00:00:00 Completed [facility] Influenza Virus Vaccine Quad IM 3+ YRS 2018-12-16 00:00:00 Completed [facility] Influenza Virus Vaccine Quad IM 3+ YRS 2018-12-16 00:00:00 Completed [facility] Vital Signs Vital Name Observation Time Observation Value Comments S ource Systolic blood pressure 2023-07-24 19:42:00 108 mm[Hg] [facility] Diastolic blood pressure 2023-07-24 19:42:00 77 mm[Hg] [facility] Heart rate 2023-07-24 19:42:00 89 /min [facility] Respiratory rate 2023-07-24 19:42:00 18 /min [facility] Body height 2023-07-24 19:42:00 162.6 cm [facility] Body weight 2023-07-24 19:42:00 102.967 kg [facility] BMI 2023-07-24 19:42:00 38.96 kg/m2 [facility] Systolic blood pressure 2022-12-29 14:32:00 116 mm[Hg] [facility] Diastolic blood pressure 2022-12-29 14:32:00 80 mm[Hg] [facility] Heart rate 2022-12-29 14:32:00 82 /min [facility] Body temperature 2022-12-29 14:32:00 36.72 Sury [facility] Respiratory rate 2022-12-29 14:32:00 18 /min [facility] Body height 2022-12-29 14:32:00 162.6 cm [facility] Body weight 2022-12-29 14:32:00 109.226 kg [facility] BMI 2022-12-29 14:32:00 41.33 kg/m2 [facility] Systolic blood pressure 2022-11-15 22:35:00 115 mm[Hg] [facility] Diastolic blood pressure 2022-11-15 22:35:00 77 mm[Hg] [facility] Heart rate 2022-11-15 22:35:00 74 /min [facility] Body temperature 2022-11-15 22:35:00 36.67 Sury [facility] Respiratory rate 2022-11-15 22:35:00 18 /min [facility] Body height 2022-11-15 22:35:00 162.6 cm [facility] Body weight 2022-11-15 22:35:00 111.041 kg [facility] BMI 2022-11-15 22:35:00 42.02 kg/m2 [facility] Systolic blood pressure 2022-10-31 21:55:00 120 mm[Hg] [facility] Diastolic blood pressure 2022-10-31 21:55:00 82 mm[Hg] [facility] Heart rate 2022-10-31 21:55:00 90 /min [facility] Respiratory rate 2022-10-31 21:55:00 18 /min [facility] Body height 2022-10-31 21:55:00 162.6 cm [facility] Body weight 2022-10-31 21:55:00 111.131 kg [facility] BMI 2022-10-31 21:55:00 42.05 kg/m2 [facility] Systolic blood pressure 2022-10-18 15:58:00 110 mm[Hg] [facility] Diastolic blood pressure 2022-10-18 15:58:00 75 mm[Hg] [facility] Heart rate 2022-10-18 15:58:00 92 /min [facility] Body temperature 2022-10-18 15:58:00 36.89 Sury [facility] Respiratory rate 2022-10-18 15:58:00 16 /min [facility] Body height 2022-10-18 15:58:00 162.6 cm [facility] Body weight 2022-10-18 15:58:00 110.678 kg [facility] BMI 2022-10-18 15:58:00 41.88 kg/m2 [facility] Oxygen saturation in Arterial blood by Pulse oximetry 2022-10-18 15:58:00 97 /min [facility] HEIGHT 2021-12-17 23:33:00 162.6 cm WEIGHT 2021-12-17 21:14:00 104.781 kg HEIGHT 2021-12-17 23:33:00 162.6 cm WEIGHT 2021-12-17 21:14:00 104.781 kg Systolic blood pressure 2021-12-12 22:09:00 119 mm[Hg] [facility] Diastolic blood pressure 2021-12-12 22:09:00 76 mm[Hg] [facility] Heart rate 2021-12-12 22:09:00 106 /min [facility] Body temperature 2021-12-12 22:09:00 36.83 Sury [facility] Body height 2021-12-12 22:09:00 162.6 cm [facility] Body weight 2021-12-12 22:09:00 105.96 kg [facility] BMI 2021-12-12 22:09:00 40.10 kg/m2 [facility] Oxygen saturation in Arterial blood by Pulse oximetry 2021-12-12 22:09:00 98 /min [facility] BP Diastolic 2020-04-13 00:00:00 83 mm[Hg] [facility] Height 2020-04-13 00:00:00 64 [in_i] [facility] BMI (Body Mass Index) 2020-04-13 00:00:00 36.5 kg/m2 [facility] BP Systolic 2020-04-13 00:00:00 118 mm[Hg] [facility] Body Weight 2020-04-13 00:00:00 212.8 [lb_av] [facility] BP Systolic 2025-04-01 14:41:00 124 mm[Hg] Sin pathak Alissa Clay BP Diastolic 2025-04-01 14:41:00 84 mm[Hg] Juan Jose sayra Alissa [facility] Weight Measured 2025-04-01 14:41:00 241.60 pounds Louie Williamson Height Measured 2025-04-01 14:41:00 63.54 inches Louie Alissa Williamson Body Temperature 2025-04-01 14:41:00 97.90 degrees Louielawson Williamson Heart Rate 2025-04-01 14:41:00 82.00 /min Luzmaria en F Clay Respiratory Rate 2025-04-01 14:41:00 18.00 /min Louie Williamson Systolic blood pressure 2021-12-18 12:35:00 120 mm[Hg] [facility] Diastolic blood pressure 2021-12-18 12:35:00 90 mm[Hg] [facility] Heart rate 2021-12-18 12:35:00 79 /min [facility] Body temperature 2021-12-18 12:35:00 36.56 Sury [facility] Respiratory rate 2021-12-18 12:35:00 18 /min [facility] Oxygen saturation in Arterial blood by Pulse oximetry 2021-12-18 12:35:00 96 /min [facility] Body height 2021-12-17 23:33:00 162.6 cm [facility] Body weight 2021-12-17 21:14:00 104.781 kg [facility] BMI 2021-12-17 21:14:00 39.65 kg/m2 [facility] BP Systolic 2021-12-15 09:55:00 Step lawson Williamson BP Diastolic 2021-12-15 09:55:00 Juan Jose phen Alissa Wililamson Weight Measured 2021-12-15 09:55:00 238.00 pounds Louie Willimason Height Measured 2021-12-15 09:55:00 63.54 inches Louie Williamson Body Temperature 2021-12-15 09:55:00 Louie Alissa Williamson Heart Rate 2021-12-15 09:55:00 Luzmaria en F Clay Respiratory Rate 2021-12-15 09:55:00 Louie Alissa Williamson BP Systolic 2018-09-24 09:27:00 114 mm[Hg] Step hen Alissa Williamson BP Diastolic 2018-09-24 09:27:00 80 mm[Hg] Juan Jose phen Alissa Williamson Weight Measured 2018-09-24 09:27:00 210.60 pounds Louie F Clay Height Measured 2018-09-24 09:27:00 63.54 inches Louie F Clay Body Temperature 2018-09-24 09:27:00 98.30 degrees Louie F Clay Heart Rate 2018-09-24 09:27:00 83.00 /min Luzmaria en F Clay Respiratory Rate 2018-09-24 09:27:00 16.00 /min Louie F Clay BP Systolic 2018-07-19 14:31:00 115 mm[Hg] Step hen F Clay BP Diastolic 2018-07-19 14:31:00 79 mm[Hg] Juan Jose phen F Clay Weight Measured 2018-07-19 14:31:00 208.20 pounds Louie F Clay Height Measured 2018-07-19 14:31:00 63.54 inches Louie F Clay Body Temperature 2018-07-19 14:31:00 98.60 degrees Louie F Clay Heart Rate 2018-07-19 14:31:00 96.00 /min Luzmaria en F Clay Respiratory Rate 2018-07-19 14:31:00 16.00 /min Louie F Clay BP Systolic 2018-04-03 10:21:00 125 mm[Hg] Step hen F Clay BP Diastolic 2018-04-03 10:21:00 82 mm[Hg] Juan Jose phen F Clay Weight Measured 2018-04-03 10:21:00 206.60 pounds Louie F Clay Height Measured 2018-04-03 10:21:00 63.54 inches Louie F Clay Body Temperature 2018-04-03 10:21:00 98.80 degrees Louie F Clay Heart Rate 2018-04-03 10:21:00 106.00 /min Step hen F Clay Respiratory Rate 2018-04-03 10:21:00 Louie F Clay BP Systolic 2017-11-01 09:52:00 111 mm[Hg] Step hen F Clay BP Diastolic 2017-11-01 09:52:00 78 mm[Hg] Juan Jose phen F Clay Weight Measured 2017-11-01 09:52:00 212.00 pounds Louie F Clay Height Measured 2017-11-01 09:52:00 63.54 inches Louie F Clay Body Temperature 2017-11-01 09:52:00 98.00 degrees Louie F Clay Heart Rate 2017-11-01 09:52:00 77.00 /min Luzmaria en Alissa Clay Respiratory Rate 2017-11-01 09:52:00 18.00 /min Louie F Clay Procedures Procedure Date / Time Performed Performing Clinician Source US PELVIS COMPLETE WITH TRANSVAGINAL 2023-02-02 16:35:18 Jose Angel Peralta [facility] POCT TEST 2022-12-29 15:22:00 AdDulce bernal [facility] PATIENT FINANCIAL POLICY 2022-12-29 14:22:26 Doctor Unassigned, [place] [facility] GC & CHLAMYDIA AMPLIFIED ASSAY 2022-11-15 22:38:00 Jose Angel Peralta [facility] TRICHOMONAS AMPLIFIED ASSAY 2022-11-15 22:38:00 Jose Angel Peralta [facility] CONSENT FOR CONTRACEPTION 2022-11-15 06:01:00 Do ctor Unassigned, [place] [facility] US PELVIS COMPLETE WITH TRANSVAGINAL 2022-10-31 00:48:02 Jose Angel Peralta [facility] NOTICE OF PRIVACY PRACTICES 2022-10-31 00:03:57 Doctor Unassigned, [place] [facility] CONSENT/REFUSAL FOR DIAGNOSIS AND TREATMENT 2022-10-31 00:03:31 Doctor Unassigned, [place] [facility] ASSIGNMENT OF BENEFITS 2022-10-31 00:03:08 Docto r Unassigned, [place] [facility] POCT TEST 2022-10-31 00:00:00 Aliyah Peralta [facility] INSURANCE CORRESPONDENCE 2022-10-25 06:01:00 Doc tor Unassigned, [place] [facility] CBC WITH DIFF 2022-10-18 17:18:00 Jose Angel Peralta [facility] ASSIGNMENT OF BENEFITS 2022-10-18 15:41:13 Docto r Unassigned, [place] [facility] URINALYSIS W/ REFLEX URINE CULTURE 2021-12-18 10:11:00 Marylu Murray [facility] BLOOD CULTURE 2021-12-18 03:39:00 Chad Dickey [facility] BASIC METABOLIC PANEL 2021-12-18 03:39:00 [facility] CBC W/PLT COUNT & AUTO DIFFERENTIAL 2021-12-18 03:39[facility]00 [facility] & AUTO DIFFERENTIAL 2021-12-18 03:39:00 [facility] BLOOD CULTURE 2021-12-17 23:54:00 [facility] EKG-SCANNED 2021-12-17 00:00:00 Provider, De fault Scanning [facility] Plan of Care Planned Activity Planned Date Details Comments Source Future Scheduled Test 2023-10-29 00:00:00 DEPRESSION SCREENING (12+) [code = DEPRESSION SCREENING (12+)] [facility] Future Scheduled Test 2023-10-29 00:00:00 DEPRESSION SCREENING (12+) [code = DEPRESSION SCREENING (12+)] [facility] Future Scheduled Test 2023-10-29 00:00:00 DEPRESSION SCREENING (12+) [code = DEPRESSION SCREENING (12+)] [facility] Future Scheduled Test 2023-06-29 00:00:00 Influenza Vaccine (#1) [code = Influenza Vaccine (#1)] [facility] Future Scheduled Test 2023-06-29 00:00:00 Influenza Vaccine (#1) [code = Influenza Vaccine (#1)] [facility] Future Scheduled Test 2023-06-29 00:00:00 Influenza Vaccine (#1) [code = Influenza Vaccine (#1)] [facility] Future Scheduled Test 2023-06-29 00:00:00 Influenza Vaccine (#1) [code = Influenza Vaccine (#1)] [facility] Future Scheduled Test 2023-06-29 00:00:00 Influenza Vaccine (#1) [code = Influenza Vaccine (#1)] [facility] Future Scheduled Test 2023-06-29 00:00:00 Influenza Vaccine (#1) [code = Influenza Vaccine (#1)] [facility] Future Scheduled Test 2023-06-29 00:00:00 COVID-19 VACCINE ( season) [code = COVID-19 VACCINE ( season)] [facility] Future Scheduled Test 2023-06-29 00:00:00 Influenza Vaccine (#1) [code = Influenza Vaccine (#1)] [facility] Future Scheduled Test 2023-06-29 00:00:00 COVID-19 VACCINE ( season) [code = COVID-19 VACCINE ( season)] [facility] Future Scheduled Test 2023-06-29 00:00:00 Influenza Vaccine (#1) [code = Influenza Vaccine (#1)] [facility] Future Scheduled Test 2023-06-29 00:00:00 COVID-19 VACCINE ( season) [code = COVID-19 VACCINE ( season)] [facility] Future Scheduled Test 2023-06-29 00:00:00 Influenza Vaccine (#1) [code = Influenza Vaccine (#1)] [facility] Future Scheduled Test 2023-06-29 00:00:00 INFLUENZA VACCINE (Season Ended) [code = INFLUENZA VACCINE (Season Ended)] [facility] Future Scheduled Test 2023-06-29 00:00:00 INFLUENZA VACCINE (Season Ended) [code = INFLUENZA VACCINE (Season Ended)] [facility] Future Scheduled Test 2023-06-29 00:00:00 INFLUENZA VACCINE (Season Ended) [code = INFLUENZA VACCINE (Season Ended)] [facility] Future Scheduled Test 2022-10-29 00:00:00 DEPRESSION SCREENING (12+) [code = DEPRESSION SCREENING (12+)] [facility] Future Scheduled Test 2022-10-29 00:00:00 DEPRESSION SCREENING (12+) [code = DEPRESSION SCREENING (12+)] [facility] Future Scheduled Test 2022-10-29 00:00:00 DEPRESSION SCREENING (12+) [code = DEPRESSION SCREENING (12+)] [facility] Future Scheduled Test 2022-10-29 00:00:00 DEPRESSION SCREENING (12+) [code = DEPRESSION SCREENING (12+)] [facility] Future Scheduled Test 2022-10-29 00:00:00 DEPRESSION SCREENING (12+) [code = DEPRESSION SCREENING (12+)] [facility] Future Scheduled Test 2022-10-29 00:00:00 DEPRESSION SCREENING (12+) [code = DEPRESSION SCREENING (12+)] [facility] Future Scheduled Test 2022-10-29 00:00:00 DEPRESSION SCREENING (12+) [code = DEPRESSION SCREENING (12+)] [facility] Future Scheduled Test 2022-10-29 00:00:00 DEPRESSION SCREENING (12+) [code = DEPRESSION SCREENING (12+)] [facility] Future Scheduled Test 2022-10-29 00:00:00 DEPRESSION SCREENING (12+) [code = DEPRESSION SCREENING (12+)] [facility] Future Scheduled Test 2022-06-29 00:00:00 INFLUENZA VACCINE (#1) [code = INFLUENZA VACCINE (#1)] [facility] Future Scheduled Test 2022-03-12 00:00:00 COVID-19 VACCINE (3 - Booster for Moderna series) [code = COVID-19 VACCINE (3 - Booster for Moderna series)] [facility] Future Scheduled Test 2021-12-07 00:00:00 COVID-19 VACCINE (3 - Booster for Moderna series) [code = COVID-19 VACCINE (3 - Booster for Moderna series)] [facility] Future Scheduled Test 2021-12-07 00:00:00 COVID-19 VACCINE (3 - Booster for Moderna series) [code = COVID-19 VACCINE (3 - Booster for Moderna series)] [facility] Future Scheduled Test 2021-12-07 00:00:00 COVID-19 VACCINE (3 - Booster for Moderna series) [code = COVID-19 VACCINE (3 - Booster for Moderna series)] [facility] Future Scheduled Test 2021-12-07 00:00:00 COVID-19 VACCINE (3 - Booster for Moderna series) [code = COVID-19 VACCINE (3 - Booster for Moderna series)] [facility] Future Scheduled Test 2021-12-07 00:00:00 COVID-19 VACCINE (3 - Booster for Moderna series) [code = COVID-19 VACCINE (3 - Booster for Moderna series)] [facility] Future Scheduled Test 2021-12-07 00:00:00 COVID-19 VACCINE (3 - Moderna series) [code = COVID-19 VACCINE (3 - Moderna series)] [facility] Future Scheduled Test 2021-12-07 00:00:00 COVID-19 VACCINE (3 - Booster for Moderna series) [code = COVID-19 VACCINE (3 - Booster for Moderna series)] [facility] Future Scheduled Test 2021-12-07 00:00:00 COVID-19 VACCINE (3 - Booster for Moderna series) [code = COVID-19 VACCINE (3 - Booster for Moderna series)] [facility] Scheduled Test 2021-12-07 00:00:00 COVID-19 VACCINE (3 - Booster for Moderna series) [code = COVID-19 VACCINE (3 - Booster for Moderna series)] [facility] Future Scheduled Test 2021-10-29 00:00:00 DEPRESSION SCREENING (12+) [code = DEPRESSION SCREENING (12+)] [facility] Diagnostic Test Pending 2020-04-13 00:00:00 CBC w/ auto diff [code = CBC w/ auto diff] [facility] Diagnostic Test Pending 2020-04-13 00:00:00 CMP, serum or plasma [code = CMP, serum or plasma] [facility] Diagnostic Test Pending 2020-04-13 00:00:00 lipid panel, serum [code = lipid panel, serum] [facility] Diagnostic Test Pending 2020-04-13 00:00:00 HBsAg (hepatitis B surface Ag), serum [code = HBsAg (hepatitis B surface Ag), serum] [facility] Diagnostic Test Pending 2020-04-13 00:00:00 HIV (1+2) Ab screen, serum [code = HIV (1+2) Ab screen, serum] [facility] Diagnostic Test Pending 2020-04-13 00:00:00 RPR (rapid plasma reagin), serum [code = RPR (rapid plasma reagin), serum] [facility] Diagnostic Test Pending 2020-04-13 00:00:00 TSH + free T4, serum [code = TSH + free T4, serum] [facility] Diagnostic Test Pending 2020-04-13 00:00:00 pap, LB + HPV [code = pap, LB + HPV] [facility] Diagnostic Test Pending 2020-04-13 00:00:00 CT + NG + TV, DNA, urine/swab [code = CT + NG + TV, DNA, urine/swab] [facility] Future Scheduled Test 2011 00:00:00 Screening for malignant neoplasm of cervix (procedure) [code = 818755967] [facility] Future Scheduled Test 2011 00:00:00 Screening for malignant neoplasm of cervix (procedure) [code = 820984644] [facility] Future Scheduled Test 2011 00:00:00 Screening for malignant neoplasm of cervix (procedure) [code = 443853874] [facility] Future Scheduled Test 2011 00:00:00 Screening for malignant neoplasm of cervix (procedure) [code = 138517268] [facility] Future Scheduled Test 2011 00:00:00 Screening for malignant neoplasm of cervix (procedure) [code = 905120762] [facility] Future Scheduled Test 2011 00:00:00 Screening for malignant neoplasm of cervix (procedure) [code = 160324297] [facility] Future Scheduled Test 2011 00:00:00 Screening for malignant neoplasm of cervix (procedure) [code = 441559084] [facility] Future Scheduled Test 2011 00:00:00 Screening for malignant neoplasm of cervix (procedure) [code = 575115902] [facility] Future Scheduled Test 2011 00:00:00 Screening for malignant neoplasm of cervix (procedure) [code = 823409947] [facility] Future Scheduled Test 2011 00:00:00 Screening for malignant neoplasm of cervix (procedure) [code = 100192512] [facility] Future Scheduled Test 2011 00:00:00 Screening for malignant neoplasm of cervix (procedure) [code = 102024227] [facility] Future Scheduled Test 2011 00:00:00 Screening for malignant neoplasm of cervix (procedure) [code = 813016347] [facility] Future Scheduled Test 2011 00:00:00 Screening for malignant neoplasm of cervix (procedure) [code = 098266542] [facility] Future Scheduled Test 2010 00:00:00 Lipid panel (procedure) [code = 24109980] [facility] Future Scheduled Test 2010 00:00:00 Lipid panel (procedure) [code = 74053643] [facility] Future Scheduled Test 2010 00:00:00 Lipid panel (procedure) [code = 05974181] [facility] Future Scheduled Test 2010 00:00:00 Lipid panel (procedure) [code = 71379856] [facility] Future Scheduled Test 2010 00:00:00 Lipid panel (procedure) [code = 67604605] [facility] Future Scheduled Test 2010 00:00:00 Lipid panel (procedure) [code = 72917930] [facility] Future Scheduled Test 2010 00:00:00 Lipid panel (procedure) [code = 84435967] [facility] Future Scheduled Test 2010 00:00:00 Lipid panel (procedure) [code = 83441302] [facility] Future Scheduled Test 2010 00:00:00 Lipid panel (procedure) [code = 90273398] [facility] Future Scheduled Test 2010 00:00:00 Lipid panel (procedure) [code = 02427290] [facility] Future Scheduled Test 2010 00:00:00 Lipid panel (procedure) [code = 64148116] [facility] Future Scheduled Test 2010 00:00:00 Lipid panel (procedure) [code = 98631959] [facility] Future Scheduled Test 2010 00:00:00 Lipid panel (procedure) [code = 11083453] [facility] Future Scheduled Test 2009 00:00:00 DTAP/TDAP/TD VACCINES (1 - Tdap) [code = DTAP/TDAP/TD VACCINES (1 - Tdap)] [facility] Future Scheduled Test 2009 00:00:00 DTAP/TDAP/TD VACCINES (1 - Tdap) [code = DTAP/TDAP/TD VACCINES (1 - Tdap)] [facility] Future Scheduled Test 2009 00:00:00 DTAP/TDAP/TD VACCINES (1 - Tdap) [code = DTAP/TDAP/TD VACCINES (1 - Tdap)] [facility] Future Scheduled Test 2009 00:00:00 DTAP/TDAP/TD VACCINES (1 - Tdap) [code = DTAP/TDAP/TD VACCINES (1 - Tdap)] [facility] Future Scheduled Test 2009 00:00:00 DTAP/TDAP/TD VACCINES (1 - Tdap) [code = DTAP/TDAP/TD VACCINES (1 - Tdap)] [facility] Future Scheduled Test 2009 00:00:00 DTAP/TDAP/TD VACCINES (1 - Tdap) [code = DTAP/TDAP/TD VACCINES (1 - Tdap)] [facility] Future Scheduled Test 2009 00:00:00 DTAP/TDAP/TD VACCINES (1 - Tdap) [code = DTAP/TDAP/TD VACCINES (1 - Tdap)] [facility] Future Scheduled Test 2009 00:00:00 DTAP/TDAP/TD VACCINES (1 - Tdap) [code = DTAP/TDAP/TD VACCINES (1 - Tdap)] [facility] Future Scheduled Test 2009 00:00:00 DTAP/TDAP/TD VACCINES (1 - Tdap) [code = DTAP/TDAP/TD VACCINES (1 - Tdap)] [facility] Future Scheduled Test 2009 00:00:00 DTAP/TDAP/TD VACCINES (1 - Tdap) [code = DTAP/TDAP/TD VACCINES (1 - Tdap)] [facility] Future Scheduled Test 2009 00:00:00 DTAP/TDAP/TD VACCINES (1 - Tdap) [code = DTAP/TDAP/TD VACCINES (1 - Tdap)] [facility] Future Scheduled Test 2009 00:00:00 DTAP/TDAP/TD VACCINES (1 - Tdap) [code = DTAP/TDAP/TD VACCINES (1 - Tdap)] [facility] Future Scheduled Test 2009 00:00:00 DTAP/TDAP/TD VACCINES (1 - Tdap) [code = DTAP/TDAP/TD VACCINES (1 - Tdap)] [facility] Future Scheduled Test 2008 00:00:00 HEPATITIS C SCREENING [code = HEPATITIS C SCREENING] [facility] Future Scheduled Test 2008 00:00:00 HEPATITIS C SCREENING [code = HEPATITIS C SCREENING] [facility] Future Scheduled Test 2008 00:00:00 HEPATITIS C SCREENING [code = HEPATITIS C SCREENING] [facility] Future Scheduled Test 2008 00:00:00 HEPATITIS C SCREENING [code = HEPATITIS C SCREENING] [facility] Future Scheduled Test 2008 00:00:00 HEPATITIS C SCREENING [code = HEPATITIS C SCREENING] [facility] Future Scheduled Test 2008 00:00:00 HEPATITIS C SCREENING [code = HEPATITIS C SCREENING] [facility] Future Scheduled Test 2008 00:00:00 HEPATITIS C SCREENING [code = HEPATITIS C SCREENING] [facility] Future Scheduled Test 2008 00:00:00 HEPATITIS C SCREENING [code = HEPATITIS C SCREENING] [facility] Future Scheduled Test 2008 00:00:00 HEPATITIS C SCREENING [code = HEPATITIS C SCREENING] [facility] Future Scheduled Test 2008 00:00:00 HEPATITIS C SCREENING [code = HEPATITIS C SCREENING] [facility] Future Scheduled Test 2008 00:00:00 HEPATITIS C SCREENING [code = HEPATITIS C SCREENING] [facility] Future Scheduled Test 2008 00:00:00 HEPATITIS C SCREENING [code = HEPATITIS C SCREENING] [facility] Future Scheduled Test 2008 00:00:00 HEPATITIS C SCREENING [code = HEPATITIS C SCREENING] [facility] Future Scheduled Test 2005 00:00:00 Human immunodeficiency virus screening (procedure) [code = 936906849] [facility] Future Scheduled Test 2005 00:00:00 Human immunodeficiency virus screening (procedure) [code = 908297133] [facility] Future Scheduled Test 2005 00:00:00 Human immunodeficiency virus screening (procedure) [code = 035692241] [facility] Future Scheduled Test 2005 00:00:00 Human immunodeficiency virus screening (procedure) [code = 057096929] [facility] Future Scheduled Test 2005 00:00:00 Human immunodeficiency virus screening (procedure) [code = 872578979] [facility] Future Scheduled Test 2005 00:00:00 Human immunodeficiency virus screening (procedure) [code = 055602358] [facility] Future Scheduled Test 2005 00:00:00 Human immunodeficiency virus screening (procedure) [code = 772801078] [facility] Future Scheduled Test 2005 00:00:00 Human immunodeficiency virus screening (procedure) [code = 858307773] [facility] Future Scheduled Test 2005 00:00:00 Human immunodeficiency virus screening (procedure) [code = 534384209] [facility] Scheduled Test 2002 00:00:00 Tobacco Cessation Counseling and Screening (12+) [code = Tobacco Cessation Counseling and Screening (12+)] [facility] Future Scheduled Test 2002 00:00:00 Tobacco Cessation Counseling and Screening (12+) [code = Tobacco Cessation Counseling and Screening (12+)] [facility] Future Scheduled Test 2002 00:00:00 Tobacco Cessation Counseling and Screening (12+) [code = Tobacco Cessation Counseling and Screening (12+)] [facility] Future Scheduled Test 2002 00:00:00 Tobacco Cessation Counseling and Screening (12+) [code = Tobacco Cessation Counseling and Screening (12+)] [facility] Future Scheduled Test 2002 00:00:00 Tobacco Cessation Counseling and Screening (12+) [code = Tobacco Cessation Counseling and Screening (12+)] [facility] Future Scheduled Test 2002 00:00:00 Tobacco Cessation Counseling and Screening (12+) [code = Tobacco Cessation Counseling and Screening (12+)] [facility] Future Scheduled Test 2002 00:00:00 Tobacco Cessation Counseling and Screening (12+) [code = Tobacco Cessation Counseling and Screening (12+)] [facility] Future Scheduled Test 2002 00:00:00 Tobacco Cessation Counseling and Screening (12+) [code = Tobacco Cessation Counseling and Screening (12+)] [facility] Future Scheduled Test 2002 00:00:00 Tobacco Cessation Counseling and Screening (12+) [code = Tobacco Cessation Counseling and Screening (12+)] [facility] Scheduled Test 2002 00:00:00 Tobacco Cessation Counseling and Screening (12+) [code = Tobacco Cessation Counseling and Screening (12+)] [facility] Scheduled Test 2002 00:00:00 Tobacco Cessation Counseling and Screening (12+) [code = Tobacco Cessation Counseling and Screening (12+)] [facility] Future Scheduled Test 2002 00:00:00 Tobacco Cessation Counseling and Screening (12+) [code = Tobacco Cessation Counseling and Screening (12+)] [facility] Future Scheduled Test 2002 00:00:00 Tobacco Cessation Counseling and Screening (12+) [code = Tobacco Cessation Counseling and Screening (12+)] [facility] Encounters Start Date/Time End Date/Time Encounter Type Admission Type Attending Clinicians Care Facility Care Department Encounter ID Source 2021-08-30 00:49:50 Emergency [facility] [id number] [facility] 2025-04-08 13:57:07 2025-04-08 13:57:07 Outpatient SFA [facility] [id number] Louie Williamson 2025-04-06 12:03:37 2025-04-06 12:03:37 Outpatient SFA [facility] [id number] Louie Williamson 2025-04-02 10:00:00 2025-04-02 10:00:00 Outpatient ANNA TORRES [facility] [id number] [facility] 2025-04-01 14:35:38 2025-04-01 14:35:[address] [facility] [id number] Louie Williamson 2025-04-01 00:00:00 2025-04-01 00:00:00 Outpatient Visit RACHEL [id number] Louie Williamson 2017-06-03 00:00:00 2025-02-19 22:28:35 Refill Zleda Freeman [facility] 1.2.840.114 350.1.13.10 4.2.7.2.686 [id number] [facility] 2019-08-12 00:00:00 2025-02-19 22:05:25 Refill Zelda Freeman Alisia [facility] 1.2.840.114 350.1.13.10 4.2.7.2.686 [id number] [facility] 2024-08-01 10:30:00 2024-08-01 10:30:00 Outpatient ISHAN MARION VIEN [facility] [id number] [facility] 2024-07-28 14:00:00 2024-07-28 14:00:00 Outpatient JOSE ANGEL UREÑA CHERYAL [facility] [id number] [facility] 2024-04-18 16:42:00 2024-04-18 16:42:00 Outpatient MAIA [facility] [id number] [facility] 2023-07-30 14:00:00 2023-07-30 14:00:00 Outpatient JOSE ANGEL UREÑA CHERYAL [facility] [id number] [facility] 2023-07-27 00:00:00 2023-07-27 00:00:00 Telephone Ashleigh Nolan [facility] 1.0.114 350.1.13.10 4.2.7.2.686 [id number] [facility] 2023-07-24 15:00:00 2023-07-24 15:09:13 Outpatient R JOSE ANGEL PERALTA CHERYAL [facility] [id number] [facility] 2023-07-24 15:00:00 2023-07-24 15:09:13 Office Visit Jose Angel Peralta [facility] 1.0.114 350.1.13.10 4.2.7.2.686 [id number] [facility] 2023-07-24 00:00:00 2023-07-24 00:00:00 Patient Secure Msg Yaquelin [facility] 1..114 350.1.13.10 4.2.7.2.686 [id number] [facility] 2023-05-31 16:30:00 2023-05-31 16:30:00 Outpatient R JOSE ANGEL PERALTA CHERYAL [facility] [id number] [facility] 2023-02-02 10:57:29 2023-02-02 23:59:00 Outpatient R JOSE ANGEL PERALTA CHERYAL [facility] [id number] [facility] 2023-02-02 10:57:29 2023-02-02 23:59:00 Hospital Encounter Jose Angel Peralta [facility] 1..114 350.1.13.10 4.2.7.2.686 [id number] [facility] 2023-01-08 00:00:00 2023-01-08 00:00:00 Telephone AdDulce bernal [facility] COUNTS [facility]CLUDE 234 BEDS AT THE [facility] 1.2.840.114 350.1.13.10 4.2.7.2.686 [id number] [facility] 2023-01-02 00:00:00 2023-01-02 00:00:00 Patient Secure Zelda Asher [facility] 1.2840.114 350.1.13.10 4.2.7.2.686 [id number] [facility] 2023-01-02 00:00:00 2023-01-02 00:00:00 Telephone AdDulce bernal [facility] 1.20.114 350.1.13.10 4.2.7.2.686 [id number] [facility] 2022-12-29 09:00:00 2022-12-29 09:23:08 Outpatient R DULCE WEEKS [facility] [id number] [facility] 2022-12-29 09:00:00 2022-12-29 09:23:08 Office Visit AdDulce bernal [facility] 1.2840.114 350.1.13.10 4.2.7.2.686 [id number] [facility] 2022-12-29 00:00:00 2022-12-29 00:00:00 Orders Only Doctor Unassigned, [place] [facility] 1.2840.114 350.1.13.10 4.2.7.2.686 [id number] [facility] 2022-12-29 00:00:00 2022-12-29 00:00:00 Letter (Out) AdDulce bernal [facility] 1.2840.114 350.1.13.10 4.2.7.2.686 [id number] 134 [id number] [facility] 2022-12-28 00:00:00 2022-12-28 00:00:00 [facility] 1.2.840.114 350.1.13.10 4.2.7.2.686 [id number] [facility] 2022-12-28 00:00:00 2022-12-28 00:00:00 [facility] 1.2.840.114 350.1.13.10 4.2.7.2.686 [id number] [facility] 2022-11-15 15:00:00 2022-11-15 17:23:28 [facility] 1.2.840.114 350.1.13.10 4.2.7.2.686 [id number] [facility] 2022-11-15 15:00:00 2022-11-15 17:23:28 Out[facility] [id number] [facility] 2022-11-15 00:00:00 2022-11-15 00:00:00 Orders Only Doctor Unassigned, [place] [facility] 1.2.840.114 350.1.13.10 4.2.7.2.686 [id number] [facility] 2022-11-08 00:00:00 2022-11-08 00:00:00 Pre Visit Outreach Khloe Mayen 1.2.840.114 350.1.13.10 4.2.7.2.686 [id number] [facility] 2022-10-31 16:30:00 2022-10-31 16:30:00 [facility] 1.2.840.114 350.1.13.10 4.2.7.2.686 [id number] [facility] 2022-10-31 16:30:00 2022-10-31 16:13:04 Outpatient R JOSE ANGEL PERALTA CHERYAL [facility] [id number] [facility] 2022-10-30 18:05:11 2022-10-30 23:59:00 Outpatient R JOSE ANGEL PERALTA CHERYAL [facility] [id number] [facility] 2022-10-30 18:05:11 2022-10-30 23:59:00 Hospital Encounter Jose Angel Peralta [facility] 1.2840.114 350.1.13.10 4.2.7.2.686 [id number] [facility] 2022-10-27 10:30:00 2022-10-27 10:30:00 Telemedici ne Visit Prisca Vilchis Joseph W [facility] MAJOR DONOR COORDINATOR [facility] 1.20.114 350.1.13.10 4.2.7.2.686 [id number] [facility] 2022-10-27 10:30:00 2022-10-27 10:23:21 Outpatient R CYRUS TURNER [facility] [id number] [facility] 2022-10-25 00:00:00 2022-10-25 00:00:00 Telephone LudaJose Angel rodgers [facility] 1.20.114 350.1.13.10 4.2.7.2.686 [id number] [facility] 2022-10-25 00:00:00 2022-10-25 00:00:00 Orders Only Doctor Unassigned, [place] [facility] 1.2840.114 350.1.13.10 4.2.7.2.686 [id number] [facility] 2022-10-20 00:00:00 2022-10-20 00:00:[address]ta [facility] 1.2.840.114 350.1.13.10 4.2.7.2.686 [id number] [facility] 2022-10-18 11:30:00 2022-10-18 11:45:00 Branch Employment Coordinator Visit Pob, Ad[facility] Lab Main Jose Angel Peralta [facility] 1.2.840.114 350.1.13.10 4.2.7.2.686 [id number] [facility] 2022-10-18 10:00:00 2022-10-18 10:16:19 Outpatient R [facility] [id number] [facility] 2022-10-18 10:00:00 2022-10-18 10:16:19 Office Visit Jose Angel Peralta [facility] 1.2.840.114 350.1.13.10 4.2.7.2.686 [id number] [facility] 2022-10-18 00:00:00 2022-10-18 00:00:00 Orders Only Doctor Unassigned, [place] [facility] 1.2.840.114 350.1.13.10 4.2.7.2.686 [id number] [facility] 2021-12-22 08:30:00 2021-12-22 08:30:00 Outpatient ISHAN MARION [facility] [id number] [facility] 2021-12-22 08:30:00 2021-12-22 08:30:00 Outpatient ISHAN MARION [facility] [id number] [facility] 2021-12-21 15:00:00 2021-12-21 15:00:00 Outpatient ISHAN MARION [facility] [id number] [facility] 2021-12-17 21:02:00 2021-12-18 15:18:00 Inpatient BETHANY KARIE MARYLU [facility] Neurology [id number] [facility] 2021-12-17 21:02:00 2021-12-18 15:18:00 Hospital Encounter BETHANY Jade , Brett Spicer, Marylu Montenegro [facility] [id number] [facility] 2021-12-18 00:00:00 2021-12-18 00:00:00 Travel [facility] [id number] [facility] 2021-12-14 00:00:00 2021-12-14 00:00:00 Telephone Radha PatelCount includes the [facility] KIRAN[facility] 1.2.840.114 350.1.13.10 4.2.7.2.686 [id number] [facility] 2021-12-13 00:00:00 2021-12-13 00:00:00 Telephone Amanda [facility] KIRAN?[facility] 1.2.840.114 350.1.13.10 4.2.7.2.686 [id number] [facility] 2021-12-13 00:00:00 2021-12-13 00:00:00 Telephone Amanda Nila [facility] KIRAN?[facility] 1.2.840.114 350.1.13.10 4.2.7.2.686 [id number] [facility] 2021-12-13 00:00:00 2021-12-13 00:00:00 Telephone Amanda [facility] KIRAN?[facility] 1.2.840.114 350.1.13.10 4.2.7.2.686 [id number] [facility] 2021-12-12 16:00:00 2021-12-12 16:51:41 Outpatient R NILA PATEL [facility] [id number] [facility] 2021-12-12 16:00:00 2021-12-12 16:51:41 Office Visit Nila Patel [facility] 1.2.840.114 350.1.13.10 4.2.7.2.686 [id number] [facility] 2021-12-12 16:00:00 2021-12-12 16:51:41 Outpatient R NILA PATEL [facility] [id number] [facility] 2021-12-12 00:00:00 2021-12-12 00:00:00 Letter (Out) [facility] 1.2.840.114 350.1.13.10 4.2.7.2.686 [id number] [facility] 2021-10-12 09:10:00 2021-10-12 09:10:00 Outpatient R ZELDA FREEMAN [facility] [id number] [facility] 2021-10-12 09:00:00 2021-10-12 09:00:00 Outpatient R AIDAN LOPEZ [facility] [id number] [facility] 2021-10-12 09:00:00 2021-10-12 09:00:00 Imm/Inj Visit Nurse, Adc Pob Immunizatio Aidan Sal[facility] 1.2.840.114 350.1.13.10 4.2.7.2.686 [id number] [facility] 2021-10-12 08:00:00 2021-10-12 08:00:00 Outpatient R AIDAN LOPEZ [facility] [id number] [facility] 2021-09-14 09:30:00 2021-09-14 09:30:00 Outpatient R AIDAN LOPEZ [facility] [id number] [facility] 2021-09-14 09:01:10 2021-09-14 09:01:24 Imm/Inj Visit Nurse, Valerie Guaman ImmunizAidan Higuera [facility] 1.2840.114 350.1.13.10 4.2.7.2.686 [id number] [facility] 2021-08-20 00:00:00 2021-08-20 00:00:00 [facility] 1.284.114 350.1.13.10 4.2.7.2.686 [id number] [facility] 2021-08-04 00:00:00 2021-08-04 00:00:00 Patient Secure Msg Doctor Unassigned, [place] [facility] 1.20.114 350.1.13.10 4.2.7.2.686 [id number] [facility] 2021-07-29 10:14:01 2021-07-29 10:34:01 Urgent Care Gisell Villegas Unknown, Attending [facility] 1.284114 350.1.13.10 4.2.7.2.686 [id number] [facility] 2021-07-29 10:20:00 2021-07-29 10:20:00 Outpatient R UNKNOWN, ATTENDING [facility] [id number] [facility] 2021-07-21 10:06:00 2021-07-21 11:06:00 Emergency Vanessa Eduardo [facility] 1.20.114 350.1.13.10 4.2.7.2.686 [id number] [facility] 2021-07-19 00:00:00 2021-07-19 00:00:00 Orders Only Doctor Unassigned, [place] [facility] 1.2840.114 350.1.13.10 4.2.7.2.686 [id number] [facility] 2021-07-05 00:00:00 2021-07-05 00:00:00 Telephone Zelda Freeman [facility] 1.2840.114 350.1.13.10 4.2.7.2.686 [id number] [facility] 2021-06-02 20:27:39 2021-06-02 20:47:39 Laboratory Only Lab, [facility] Office [facility] 1.0.114 350.1.13.10 4.2.7.2.686 [id number] 2021-06-02 20:27:39 2021-06-02 20:47:39 Laboratory Only Lab, [facility] Office Building One 1.0.114 350.1.13.10 4.2.7.2.686 [id number] [facility] 2021-06-02 20:20:00 2021-06-02 20:20:00 Outpatient CEDRIC SHRESTHA [facility] [id number] [facility] 2021-06-02 00:00:00 2021-06-02 00:00:00 Orders Only Doctor Unassigned, [place] [facility] 1.2840.114 350.1.13.10 4.2.7.2.686 [id number] 2021-06-02 00:00:00 2021-06-02 00:00:00 Telephone Zelda Freeman [facility] 1.20.114 350.1.13.10 4.2.7.2.686 [id number] 2021-06-02 00:00:00 2021-06-02 00:00:00 Orders Only Doctor Unassigned, [place] [facility] 1.2.840.114 350.1.13.10 4.2.7.2.686 [id number] [facility] 2021-06-02 00:00:00 2021-06-02 00:00:00 Telephone [facility] 1.2.840.114 350.1.13.10 4.2.7.2.686 [id number] [facility] 2021-03-29 16:24:00 2021-03-29 18:30:00 Emergency ER ROGER COOK [facility] [id number] [facility] 2021-02-25 13:21:00 2021-02-25 14:16:00 Emergency ER DOMINICK CHEN [facility] [id number] [facility] 2021-01-18 00:00:00 2021-01-18 00:00:00 Patient Outreach Aidan Lopez Julio [facility] 1.2.840.114 350.1.13.10 4.2.7.2.686 [id number] 2021-01-18 00:00:00 2021-01-18 00:00:00 Patient Outreach Aidan Lopez [facility] 1.2.840.114 350.1.13.10 4.2.7.2.686 [id number] [facility] 2020-09-08 06:34:00 2020-09-08 09:07:00 Emergency ER VERO RANDLE [facility] [id number] [facility] 2020-08-17 12:21:00 2020-08-17 14:50:00 Emergency ER ROGER COOK [facility] [id number] [facility] 2020-05-24 08:40:00 2020-05-24 08:40:00 Outpatient ZELDA LOPEZ [facility] [id number] [facility] 2020-04-13 10:20:00 2020-04-13 10:20:00 Outpatient MAIA WESLEY [facility] [id number] [facility] 2020-04-13 00:00:00 2020-04-13 00:00:00 Maia Peace MD: [address], [place] [address] , Ph. [phone] [facility] - OBGYN [id number] [facility] 2020-01-23 11:11:01 2020-03-12 16:10:25 Telemedici ne Visit [place] [address].2.840.114 350.1.13.10 4.2.7.2.686 [id number] 2020-01-23 11:11:01 2020-03-12 16:10:25 Telemedici ne Visit [facility] 1.2.840.114 350.1.13.10 4.2.7.2.686 [id number] [facility] 2020-02-23 14:38:00 2020-02-26 13:00:00 Outpatient CYRUS TORRES [facility] [id number] [facility] 2020-02-22 19:57:00 2020-02-23 13:45:00 Inpatient U CAM JIANG [facility] 0117 [facility] 2020-02-22 14:40:00 2020-02-22 18:45:00 Emergency ER JAZMYNEJAIMEJose D MARINO [facility] [id number] [facility] 2020-02-04 20:12:00 2020-02-05 00:50:00 Emergency ER NAKUL ENAMORADO [facility] [id number] [facility] 2020-01-30 08:10:50 2020-01-30 15:55:51 Telemedici ne Visit Matt Foster [facility] Professio nal Building 1.2.840.114 350.1.13.10 4.2.7.2.686 [id number] [facility] 2020-01-30 10:45:00 2020-01-30 10:45:00 Outpatient R MATT FOSTER [facility] [id number] [facility] 2020-01-27 00:00:00 2020-01-27 00:00:00 Telephone [facility] 1.2.840.114 350.1.13.10 4.2.7.2.686 [id number] [facility] 2020-01-27 00:00:00 2020-01-27 00:00:00 Telephone [facility] 1.2.840.114 350.1.13.10 4.2.7.2.686 [id number] [facility] 2020-01-26 14:50:00 2020-01-26 14:50:00 Outpatient EL MATT FOSTER [facility] [id number] [facility] 2020-01-23 13:15:00 2020-01-23 13:15:00 Outpatient R MATT FOSTER [facility] [id number] [facility] 2020-01-23 00:00:00 2020-01-23 00:00:00 Telephone Matt Foster [facility] Professio nal Building 1.2.840.114 350.1.13.10 4.2.7.2.686 [id number] [facility] 2020-01-22 08:40:14 2020-01-22 12:05:25 Telemedici ne Visit Zelda Freeman [facility] Building 1.2.840.114 350.1.13.10 4.2.7.2.686 [id number] [facility] 2020-01-22 10:40:00 2020-01-22 10:40:00 Outpatient R FREEMANAMORZELDA [facility] [id number] [facility] 2019-12-12 00:00:00 2019-12-12 00:00:00 Telephone Zelda Freeman [facility] 1.2.840.114 350.1.13.10 4.2.7.2.686 [id number] [facility] 2019-12-10 08:50:00 2019-12-10 12:42:00 Emergency ER JULIO OROZCO [facility] [id number] [facility] 2019-12-06 00:00:00 2019-12-06 00:00:00 Refill Doctor Unassigned, [place] [facility] 1.2.840.114 350.1.13.10 4.2.7.2.686 [id number] [facility] 2019-12-06 00:00:00 2019-12-06 00:00:00 Refill Zelda Freeman [facility] 1.2.840.114 350.1.13.10 4.2.7.2.686 [id number] [facility] 2019-11-16 20:27:00 2019-11-16 23:06:00 Emergency ER MARINO SOUZA [facility] [id number] [facility] 2019-10-19 20:22:00 2019-10-19 22:55:00 Emergency ER MARINO SOUZA [facility] [id number] [facility] 2016-09-22 23:12:00 2016-09-23 02:13:00 Emergency ER UVALDO ODONNELL [facility] [id number] [facility] 2016-09-11 09:40:00 2016-09-11 11:19:00 Emergency ER OWO, TOKS [facility] [id number] [facility] 2016-08-16 15:22:00 2016-08-16 20:18:00 Emergency ER , WASIM [facility] [id number] [facility] 2016-06-07 11:25:00 2016-06-07 11:47:00 Emergency ER OWO, TOKS [facility] [id number] [facility] 2016-04-01 15:05:00 2016-04-01 17:28:00 Emergency ER SHEIKH WASSARA [facility] [id number] [facility] 2016-03-08 13:18:00 2016-03-08 17:03:00 Emergency ER SONIDO CARLOS [facility] [id number] [facility] 2016-01-05 14:38:00 2016-01-05 18:54:00 Emergency ER OWO, TOKS [facility] [id number] [facility] 2015-11-30 11:06:00 2015-11-30 12:28:00 Emergency ER BA, PATRICK [facility] [id number] [facility] 2015-09-06 07:58:00 2015-09-06 12:25:00 Emergency ER OWO, TOKS [facility] [id number] [facility] 2015-04-26 12:07:00 2015-04-26 15:40:00 Emergency ER BA, PATRICK [facility] [id number] [facility] 2015-03-29 03:44:00 2015-03-29 05:16:00 Emergency ER BA, PATRICK [facility] [id number] [facility] 2015-03-28 22:36:00 2015-03-29 00:24:00 Emergency ER BA, PATRICK [facility] [id number] [facility] 2015-02-12 18:25:00 2015-02-13 00:28:00 Emergency ER UGORJI, CLEMENT [facility] [id number] [facility] 2015-02-03 02:11:00 2015-02-03 04:00:00 Emergency ER AMAYA, WASIM [facility] [id number] [facility] 2014-10-22 08:38:00 2014-10-22 10:45:00 Emergency ER AMAYA, WASIM [facility] [id number] [facility] 2014-09-21 02:34:00 2014-09-21 04:38:00 Emergency ER BA, PATRICK [facility] [id number] [facility] 2014-07-26 03:26:00 2014-07-26 04:40:00 Emergency ER BA, PATRICK [facility] [id number] [facility] 2014-05-24 21:56:00 2014-05-25 01:39:00 Emergency ER UGORJI, CLEMENT [facility] [id number] [facility] 2014-04-02 23:10:00 2014-04-03 01:51:00 Emergency ER UGORJI, CLEMENT [facility] [id number] [facility] 2013-09-12 09:35:00 2013-09-12 10:26:00 Emergency ER PAULINO, SHAKILA [facility] [id number] [facility] 2013-08-07 14:40:00 2013-08-07 16:26:00 Emergency ER SONIDO CARLOS [facility] [id number] [facility] 2013-06-02 14:31:00 2013-06-02 17:56:00 Emergency ER PATRICK HENAO [facility] [id number] [facility] 2013-04-07 11:41:00 2013-04-09 17:50:00 Inpatient EL MAIA [facility] [id number] [facility] 2013-03-15 19:49:00 2013-03-16 07:20:00 Emergency ER MAIA PEACE [facility] [id number] [facility] 2013-03-06 11:13:00 2013-03-06 13:30:00 Emergency ER MAIA PEACE [facility] [id number] [facility] 2013-03-05 10:29:00 2013-03-05 10:29:00 Outpatient UR MAIA PEACE [facility] [id number] [facility] 2013-02-03 20:10:00 2013-02-04 07:31:00 Emergency ER MAIA PEACE [facility] [id number] [facility] 2013-01-13 11:46:00 2013-01-13 11:46:00 Emergency ER MAIA PEACE [facility] [id number] [facility] 2012-11-14 12:30:00 2012-11-14 15:33:00 Emergency ER SONIDO CARLOS [facility] [id number] [facility] 2012-10-26 12:19:00 2012-10-26 16:50:00 Emergency ER ADRIÁN COTTO [facility] [id number] [facility] 2012-09-14 21:44:00 2012-09-15 00:49:00 Emergency ER RAUL KOCH [facility] [id number] [facility] 2012-09-02 16:28:00 2012-09-03 11:20:00 Inpatient MAIA WESLEY [facility] [id number] [facility] 2012-08-12 11:52:00 2012-08-12 14:40:00 Emergency ER NYDIA SAVAGE [facility] [id number] [facility] 2012-08-09 00:22:00 2012-08-09 03:00:00 Emergency ER ADRIÁN COTTO [facility] [id number] [facility] 2012-07-19 07:32:00 2012-07-19 11:45:00 Emergency ER CLAUDETTE AMAYA [facility] [id number] [facility] 2012-06-25 13:20:00 2012-06-25 16:58:00 Emergency ER ADRIÁN COTTO [facility] [id number] [facility] 2012-06-03 18:54:00 2012-06-04 00:00:00 Emergency ER MICHELLEMATTHEWSONIDO [facility] [id number] [facility] 2012-04-10 19:16:00 2012-04-10 21:45:00 Emergency ER CLAUDETTE AMAYA [facility] [id number] [facility] 2012-01-26 08:45:00 2012-01-26 10:35:00 Emergency ER BREANNA CLEDANITA [facility] [id number] [facility] 2011-10-19 21:53:00 2011-10-20 01:00:00 Emergency ER BREANNA CLEMENT [facility] [id number] [facility] 2011-08-30 09:04:00 2011-08-30 09:04:00 Outpatient EL SISSY LANG [facility] [id number] [facility] 2011-05-31 13:42:00 2011-05-31 15:41:00 Emergency ER CLAUDETTE AMAYA [facility] [id number] [facility] 2011-05-28 23:25:00 2011-05-29 02:14:00 Emergency ER UGMATTHEW CLEMENT [facility] [id number] [facility] 2011-03-25 10:32:00 2011-03-25 12:10:00 Emergency ER JUAN FIGUEROA [facility] [id number] [facility] 2010-11-08 10:32:00 2010-11-08 12:20:00 Emergency ER IMMARAJ, PREMSWARUP [facility] [id number] [facility] 2010-10-16 19:21:00 2010-10-16 21:30:00 Emergency ER CLAUDETTE AMAYA [facility] [id number] [facility] 2010-10-04 19:52:00 2010-10-04 22:59:00 Emergency ER IMMARAJudah, PREMSWARUP [facility] [id number] [facility] 2010-07-26 12:16:00 2010-07-26 14:50:00 Emergency ER BREANNA CLEDANITA [facility] [id number] [facility] 2010-06-24 13:23:00 2010-06-24 14:23:00 Emergency ER IMMARAJ, PREMSWARUP [facility] [id number] [facility] 2010-01-31 18:00:00 2010-01-31 19:20:00 Emergency ER HEATHER MYLES [facility] [id number] [facility] 2009-10-27 13:39:00 2009-10-27 13:39:00 Outpatient CYRUS BOTELLO [facility] [id number] [facility] 2009-06-28 12:52:00 2009-06-28 16:40:00 Emergency ER RONALD BRAUN [facility] [id number] [facility] 2009-04-09 02:59:00 2009-04-09 03:43:00 Emergency ER SONIDO CARLOS [facility] [id number] [facility] 2008-12-17 17:43:00 2008-12-17 19:40:00 Emergency ER DESTINEE MAYESSETH [facility] [id number] [facility] 2007-10-29 17:53:00 2007-10-29 23:59:00 Emergency ER LEXI BOGGS [facility] [id number] [facility] 2007-10-01 06:13:00 2007-10-02 17:00:00 Inpatient MAIA WESLEY [facility] MOB [id number] [facility] 2007-09-18 19:20:00 2007-09-19 09:45:00 Inpatient ER SHEREEN HOWARD [facility] MOB [id number] [facility] 2007-09-15 04:15:00 2007-09-15 08:30:00 Inpatient ER VERO JOE [facility] MOB [id number] [facility] 2007-09-13 16:00:00 2007-09-14 10:45:00 Inpatient MAIA WESLEY [facility] MOB [id number] [facility] 2007-06-11 12:39:00 2007-06-11 15:00:00 Emergency ER SONIDO CARLOS [facility] [id number] [facility] 2007-03-15 10:33:00 2007-03-15 14:00:00 Emergency ER LEXI BOGGS [facility] [id number] [facility] 2007-03-04 10:42:00 2007-03-04 13:10:00 Emergency ER RONALD BRAUN [facility] [id number] [facility] 2006-08-21 12:33:00 2006-08-21 14:30:00 Emergency ER SONIDO CARLOS [facility] [id number] [facility] Results Test Description Test Time Test Comments Results Result Co mments Source [facility] [id number] 15:22:00* Test Item Value Reference Range Interpretation Comme nts POCT PREG (test code = 1605) Negative On board controls acceptable with C Line (test code = 3574) Yes POCT PREG LOT # (test code = 3575) POCT PREG TEST DATE ( test code = 3576) [facility] [id number] 15:22:00* Test Item Value Reference Range Interpretation Comme nts POCT PREG (test code = 1605) Negative On board controls acceptable with C Line (test code = 3574) Yes POCT PREG LOT # (test code = 3575) POCT PREG TEST DATE ( test code = 3576) [facility] [id number] 22:27:00* Test Item Value Reference Range Interpretation Comme nts POCT PREG (test code = 1605) Negative On board controls acceptable with C Line (test code = 3574) Yes POCT PREG LOT # (test code = 3575) POCT PREG TEST DATE ( test code = 3576) [facility] [id number] 22:27:00* Test Item Value Reference Range Interpretation Comme nts POCT PREG (test code = 1605) Negative On board controls acceptable with C Line (test code = 3574) Yes POCT PREG LOT # (test code = 3575) POCT PREG TEST DATE ( test code = 3576) [facility] WITH [id number] 17:37:52* Test Item Value Reference Range Interpretation Comme nts WBC (test code = 6690-2) See_Comment [Automated messa ge] The system which generated this result transmitted reference range: 4.30 - 11.10 10*3/?L. The reference range was not used to interpret this result as normal/abnormal. RBC (test code = 789-8) See_Comment [Automated messa ge] The system which generated this result transmitted reference range: 3.93 - 5.25 10*6/?L. The reference range was not used to interpret this result as normal/abnormal. HGB (test code = 718-7) 11.9 g/dL 11.6-15.0 HCT (test code = 4544-3) 37.7 % 35.7-45.2 MCV (test code = 787-2) 90.2 fL 80.6-95.5 MCH (test code = 785-6) 28.5 pg 25.9-32.8 MCHC (test code = 786-4) 31.6 g/dL 31.6-35.1 RDW-SD (test code = 08183-0) 45.0 fL 39.0-49.9 RDW-CV (test code = 788-0) 13.5 % 12.0-15.5 PLT (test code = 777-3) See_Comment [Automated messa ge] The system which generated this result transmitted reference range: 166 - 358 10*3/?L. The reference range was not used to interpret this result as normal/abnormal. MPV (test code = 16356-4) 10.5 fL 9.5-12.9 NRBC/100 WBC (test code = 0542342534) See_Comment [Automated [place] ssage] The system which generated this result transmitted reference range: 0.0 - 10.0 /100 WBCs. The reference range was not used to interpret this result as normal/abnormal. NRBC x10^3 (test code = 5296165009) See_Comment [Automated messa ge] The system which generated this result transmitted reference range: 10*3/?L. The reference range was not used to interpret this result as normal/abnormal. GRAN MAT (NEUT) % (test code = 770-8) 50.6 % IMM GRAN % (test code = 4364898723) 0.50 % LYMPH % (test code = 736-9) 39.9 % MONO % (test code = 5905-5) 7.3 % EOS % (test code = 713-8) 1.4 % BASO % (test code = 706-2) 0.3 % GRAN MAT x10^3(ANC) (test code = 5283726579) 4.40 10*3/uL 1.88-7.09 IMM GRAN x10^3 (test code = 3469195216) 0.04 10*3/uL 0.00-0.06 LYMPH x10^3 (test code = 731-0) 3.46 10*3/uL 1.32-3.29 H MONO x10^3 (test code = 742-7) 0.63 10*3/uL 0.33-0.92 EOS x10^3 (test code = 711-2) 0.12 10*3/uL 0.03-0.39 BASO x10^3 (test code = 704-7) 0.03 10*3/uL 0.01-0.07 Lab Interpretation (test code = 61877-7) [facility]normal [facility] 2021-12-23 06:00:39* Test Item Value Reference Range Interpretation Comme nts Result (test code = 6463-4) No growth in 5 days [id number] 06:00:39* Test Item Value Reference Range Interpretation Comme nts CULTURE (BEAKER) (test code = 1095) No growth in 5 days BLOOD [id number] 03:00:36* Test Item Value Reference Range Interpretation Comme nts CULTURE (BEAKER) (test code = 1095) No growth in 5 days Urinalysis w/Microscopic + Reflex to [id number] 10:45:20* Test Item Value Reference Range Interpretation Comme nts Color, UA (test code = 5778-6) Light Yellow Clarity, UA (test code = 5767-9) Clear Specific Bronson, UA (test code = 5811-5) 1.014 1.001-1.035 pH, UA (test code = 5803-2) 7.5 5.0-8.0 Protein, UA (test code = 84478-6) Negative Negative Glucose, UA (test code = 365) Negative Negative Ketones, UA (test code = 2514-8) Negative Negative Bilirubin, UA (test code = 35396-1) Negative Negative Blood, UA (test code = 50465-1) Negative Negative Nitrite, UA (test code = 5802-4) Negative Negative Leukocytes, UA (test code = 5799-2) Negative Negative Urobilinogen, UA (test code = 10476-8) 0.2 mg/dL 0.2-1.0 RBC, UA (test code = 43511-2) 1 See_Comment [Automated [employer]] The system which generated this result transmitted reference range: /HPF. The reference range was not used to interpret this result as normal/abnormal. WBC, UA (test code = 5821-4) 1 See_Comment [[employer]] The system which generated this result transmitted reference range: /HPF. The reference range was not used to interpret this result as normal/abnormal. Bacteria, UA (test code = 76405-4) Rare Mucus (test code = 8247-9) Rare Squam Epithel, UA (test code = 15619-9) 3 See_Comment [[employer]] The system which generated this result transmitted reference range: /HPF. The reference range was not used to interpret this result as normal/abnormal. Crystals, Urine (test code = 31289-4) None Seen Specimen Source (test code = 2795) SERGIO (test code = SERGIO) [employer] ID - [auto]Whe[facility] [employer] ID [facility] REFLEX URINE [id number] 10:45:20 * Test Item Value Reference Range Interpretation Comme nts COLOR (BEAKER) (test code = 470) Light Yellow CLARITY (BEAKER) (test code = 469) Clear SPECIFIC GRAVITY UA (BEAKER) (test code = 468) 1.014 1.001-1.035 PH UA (BEAKER) (test code = 467) 7.5 5.0-8.0 PROTEIN UA (BEAKER) (test co de = 464) Negative Negative GLUCOSE UA (BEAKER) (test co de = 365) Negative Negative KETONES UA (BEAKER) (test co de = 371) Negative Negative BILIRUBIN UA (BEAKER) (test code = 462) Negative Negative BLOOD UA (BEAKER) (test code = 461) Negative Negative NITRITE UA (BEAKER) (test co de = 465) Negative Negative LEUKOCYTE ESTERASE UA (BEAKE R) (test code = 466) Negative Negative UROBILINOGEN UA (BEAKER) (te st code = 463) 0.2 mg/dL 0.2-1.0 RBC UA (BEAKER) (test code = 519) 1 /HPF WBC UA (BEAKER) (test code = 520) 1 /HPF BACTERIA (BEAKER) (test code = 517) Rare MUCUS (BEAKER) (test code = 1574) Rare SQUAMOUS EPITHELIAL (BEAKER) (test code = 516) 3 /HPF CRYSTALS, URINE (BEAKER) (te st code = 1521) None Seen SOURCE(BEAKER) (test code = 2795) [employer] ID - [auto][employer] ID - techBasic metabolic [id number] 04:19:43* Test Item Value Reference Range Interpretation Comme nts Sodium (test code = 2951-2) 139 meq/L 136-145 Potassium (test code = 2823-3) 3.6 meq/L 3.5-5.1 Chloride (test code = 2075-0) 108 meq/L 98-107 H CO2 (test code = 8-9) 25 meq/L 22-29 BUN (test code = 3094-0) 13 mg/dL 7-21 Creatinine (test code = 2160-0) 0.84 mg/dL 0.57-1.25 Glucose (test code = 2345-7) 112 mg/dL 70-105 H Calcium (test code = 11772-6) 9.0 mg/dL 8.4-10.2 EGFR (test code = 82119-6) 79 mL/min/1.73 sq m ESTIMATED GFR I S NOT ACCURATE CREATININE CLEARANCE IN PREDICTING GLOMERULAR FILTRATION RATE. ESTIMATED GFR IS NOT APPLICABLE FOR DIALYSIS PATIENTS. SERGIO (test code = SERGIO) [employer] ID - SHELBY M Lab Interpretation (test code = 18421-8) [facility] [id number] 04:19:43* Test Item Value Reference Range Interpretation Comme nts SODIUM (BEAKER) (test code = 381) 139 meq/L 136-145 POTASSIUM (BEAKER) (test code = 379) 3.6 meq/L 3.5-5.1 CHLORIDE (BEAKER) (test code = 382) 108 meq/L 98-107 H CO2 (BEAKER) (test code = 355) 25 meq/L 22-29 BLOOD UREA NITROGEN (BEAKER) (test code = 354) 13 mg/dL 7-21 CREATININE (BEAKER) (test code = 358) 0.84 mg/dL 0.57-1.25 GLUCOSE RANDOM (BEAKER) (test code = 652) 112 mg/dL 70-105 H CALCIUM (BEAKER) (test code = 697) 9.0 mg/dL 8.4-10.2 EGFR (BEAKER) (test code = 1092) 79 mL/min/1.73 sq m ESTIMATED GFR IS NOT ACCURATE CREATININE CLEARANCE IN PREDICTING GLOMERULAR FILTRATION RATE. ESTIMATED GFR IS NOT APPLICABLE FOR DIALYSIS PATIENTS. [employer] ID - SHELBY MCBC with platelet count + automated [id number] 04:14:48 * Test Item Value Reference Range Interpretation Comme nts WBC (test code = 6690-2) 8.8 See_Comment [Automated message] The system which generated this result transmitted reference range: 3.5 - 10.5 K/µL. The reference range was not used to interpret this result as normal/abnormal. RBC (test code = 789-8) 4.06 See_Comment [Automated message] The system which generated this result transmitted reference range: 3.93 - 5.22 M/µL. The reference range was not used to interpret this result as normal/abnormal. MCHC (test code = 786-4) 31.2 See_Comment L [Automated message] The system which generated this result transmitted reference range: 32.2 - 35.5 GM/DL. The reference range was not used to interpret this result as normal/abnormal. Hematocrit (test code = 4544-3) 37.5 % 34.1-44.9 MCV (test code = 787-2) 92.4 fL 79.4-94.8 MCH (test code = 785-6) 28.8 pg 25.6-32.2 RDW (test code = 788-0) 13.5 % 11.7-14.4 Platelets (test code = 777-3) 298 See_Comment [Automated messa ge] The system which generated this result transmitted reference range: 150 - 450 K/CU MM. The reference range was not used to interpret this result as normal/abnormal. MPV (test code = 58991-1) 10.5 fL 9.4-12.3 nRBC (test code = 413) 0 See_Comment [ Automated message] The system which generated this result transmitted reference range: 0 - 0 /100 WBC. The reference range was not used to interpret this result as normal/abnormal. % Neutros (test code = 429) 40 % % Lymphs (test code = 430) 47 % % Monos (test code = 431) 8 % % Eos (test code = 432) 4 % % Baso (test code = 437) 1 % # Neutros (test code = 670) 3.54 See_Comment [Automated messa ge] The system which generated this result transmitted reference range: 1.56 - 6.13 K/µL. The reference range was not used to interpret this result as normal/abnormal. # Lymphs (test code = 414) 4.14 See_Comment H [Automated messa ge] The system which generated this result transmitted reference range: 1.18 - 3.74 K/µL. The reference range was not used to interpret this result as normal/abnormal. # Monos (test code = 415) 0.74 See_Comment H [Automated messa ge] The system which generated this result transmitted reference range: 0.24 - 0.36 K/µL. The reference range was not used to interpret this result as normal/abnormal. # Eos (test code = 416) 0.33 See_Comment [Automated message] The system which generated this result transmitted reference range: 0.04 - 0.36 K/µL. The reference range was not used to interpret this result as normal/abnormal. # Baso (test code = 417) 0.04 See_Comment [Automated message] The system which generated this result transmitted reference range: 0.01 - 0.08 K/µL. The reference range was not used to interpret this result as normal/abnormal. Immature Granulocytes-Relative (test code = 2801) 0 % 0-1 Lab Interpretation (test code = 44421-8) Abnormal [facility] W/PLT COUNT & AUTO [id number] 04:14:48* Test Item Value Reference Range Interpretation Comme nts WHITE BLOOD CELL COUNT (BEAK ER) (test code = 775) 8.8 K/ L 3.5-10.5 RED BLOOD CELL COUNT (BEAKER ) (test code = 761) 4.06 M/ L 3.93-5.22 HEMOGLOBIN (BEAKER) (test co de = 410) 11.7 GM/DL 11.2-15.7 HEMATOCRIT (BEAKER) (test co de = 411) 37.5 % 34.1-44.9 MEAN CORPUSCULAR VOLUME (LANDRY KER) (test code = 753) 92.4 fL 79.4-94.8 MEAN CORPUSCULAR HEMOGLOBIN (BEAKER) (test code = 751) 28.8 pg 25.6-32.2 MEAN CORPUSCULAR HEMOGLOBIN CONC (BEAKER) (test code = 752) 31.2 GM/DL 32.2-35.5 L RED CELL DISTRIBUTION WIDTH (BEAKER) (test code = 412) 13.5 % 11.7-14.4 PLATELET COUNT (BEAKER) (kaveh t code = 756) 298 K/CU MM 150-450 MEAN PLATELET VOLUME (BEAKER ) (test code = 754) 10.5 fL 9.4-12.3 NUCLEATED RED BLOOD CELLS (BEAKER) (test code = 413) 0 /100 WBC 0-0 NEUTROPHILS RELATIVE PERCENT (BEAKER) (test code = 429) 40 % LYMPHOCYTES RELATIVE PERCENT (BEAKER) (test code = 430) 47 % MONOCYTES RELATIVE PERCENT (BEAKER) (test code = 431) 8 % EOSINOPHILS RELATIVE PERCENT (BEAKER) (test code = 432) 4 % BASOPHILS RELATIVE PERCENT (BEAKER) (test code = 437) 1 % NEUTROPHILS ABSOLUTE COUNT (BEAKER) (test code = 670) 3.54 K/ L 1.56-6.13 LYMPHOCYTES ABSOLUTE COUNT (BEAKER) (test code = 414) 4.14 K/ L 1.18-3.74 H MONOCYTES ABSOLUTE COUNT (BE CHRIS) (test code = 415) 0.74 K/ L 0.24-0.36 H EOSINOPHILS ABSOLUTE COUNT (BEAKER) (test code = 416) 0.33 K/ L 0.04-0.36 BASOPHILS ABSOLUTE COUNT (BE CHRIS) (test code = 417) 0.04 K/ L 0.01-0.08 IMMATURE GRANULOCYTES-RELATI VE PERCENT (BEAKER) (test code = 2801) 0 % 0-1 CHLAMYDIA, AMPLIFIED, [id number] 00:00:00* Test Item Value Reference Range Interpretation Comme nts CHLAMYDIA, TMA (test code = 38226) NEGATIVE Louie WilliamsonGC, AMPLIFIED, [id number] 00:00:00* Test Item Value Reference Range Interpretation Comme nts GONORRHEA, TMA (test code = 26440) NEGATIVE Louie WilliamsonACUTE HEPATITIS [id number] 00:00:00* Test Item Value Reference Range Interpretation Comme nts HEPATITIS A IgM (test code = 76794) NON-REACTIVE HEPATITIS B CORE IgM (test c ode = 4644) NON-REACTIVE HEPATITIS B SURF AG (test co de = 2739) NON-REACTIVE HEPATITIS C ANTIBODY (test c ode = 4675) NON-REACTIVE HCV INDEX (test code = 08280) 0.05 INTERPRETATION HEPATITIS A: (test code = 2552) (NOTE) INTERPRETATION HEPATITIS B: (test code = 33744) (NOTE) INTERPRETATION HEPATITIS C: (test code = 66672) (NOTE) Louie WilliamsonCOMPREHENSIVE METABOLIC [id number] 00:00:00* Test Item Value Reference Range Interpretation Comme nts GLUCOSE (test code = 2217) 83 MG/DL BUN (test code = 2208) 15 MG/DL CREATININE (test code = 2214) 0.84 MG/DL eGFR AMER. (test cod e = 50634) 110 ML/MIN/1.73 eGFR NON- AMER. (test code = 45423) 95 ML/MIN/1.73 CALC BUN/CREAT (test code = 2235) 18 RATIO SODIUM (test code = 2231) 143 MEQ/L POTASSIUM (test code = 2228) 4.4 MEQ/L CHLORIDE (test code = 2215) 107 MEQ/L CARBON DIOXIDE (test code = 2206) 26 MEQ/L CALCIUM (test code = 2209) 9.6 MG/DL PROTEIN, TOTAL (test code = 2229) 6.4 G/DL ALBUMIN (test code = 2201) 4.2 G/DL CALC GLOBULIN (test code = 2240) 2.2 G/DL CALC A/G RATIO (test code = 2234) 1.9 RATIO BILIRUBIN, TOTAL (test code = 2207) 0.4 MG/DL ALKALINE PHOSPHATASE (test code = 2204) 75 U/L AST (test code = 2218) 15 U/L ALT (test code = 2219) 15 U/L Louie WilliamsonLIPID [id number] 00:00:00* Test Item Value Reference Range Interpretation Comme nts CHOLESTEROL (test code = 2210) 152 MG/DL TRIGLYCERIDES (test code = 2232) 89 MG/DL HDL CHOLESTEROL (test code = 2220) 36 MG/DL CALC LDL CHOL (test code = 2237) 98 MG/DL RISK RATIO LDL/HDL (test cod e = 2238) 2.73 RATIO Louie WilliamsonHEMOGLOBIN [id number] 00:00:00* Test Item Value Reference Range Interpretation Comme nts HEMOGLOBIN A1c (test code = 49065) 5.5 % Louie WilliamsonHIV AB/AG COMBO RFLX [id number] 00:00:00* Test Item Value Reference Range Interpretation Comme nts HIV 1/2 4TH GEN, RFLX CONF ( test code = 3514) NON-REACTIVE Louie [id number] 00:00:00* Test Item Value Reference Range Interpretation Comme nts RPR RESULT (test code = 3501) NON-REACTIVE RPR TITER (test code = 3500) NOT INDIC. TITER Louie Williamson Notes || Date/Time Note Provider Source Louie Whipple [facility]2019-10-16 09:46:41 Refill for ipratropium and naproxen was approved, patient is compliant with guidelines [id number]:01:26 Med(s) last ordered: 04/20/2017, #30 and no refills EVI: 04/20/2017 with POC for migraine:"For now we'll try imitrex and continue ibuprofen. If Imitrex is not helping she needs to call so we can call in a stronger NSAID. RTC 2 weeks" NOV: 06/14/2017 Last B/P 145/97 several weeks ago. [place] work [place] [facility] 168/105 and dizyy at work when had not eaten for several hours before that. Unable to get B/P cuff as no supply place in [place] [facility] and will see about getting one from there. Pt been taking medications as one then waits 4 hours and repeats imitrex and then may have to take one to two more. Has three or 4 per day some times. Reviewed directions for how to take imitrex one at onset of headache, wait two hours and if still with H/A then take one more. May use ibuprofen after that as discussed with dr to help with any continuing headache. Pt will bring log of H/As and B/P readings to AUG. Med will be refilled and sent to her pharmacy. Refilled medications per OP policy, C51 reviewed on 12/01/2016 for [facility], e-scribed to patient’s preferred pharmacy. Will send to Dr Butts for review and any further advice. Ria Palacio, RN Ria Palacio, RN Ria Palacio [facility]
[2025-08-15] MEDS ORDERED: FAMOTIDINE 20 MG TAB ONE (01:38)
[2025-08-15] MEDS ORDERED: predniSONE 20 MG TAB ONE (01:38)
[2025-08-15] MEDS ORDERED: METHYLPREDNISOLONE 125 MG INJ ONE (01:38)
[2025-08-15] MEDS ORDERED: LORAZEPAM 1 MG TABLET ONE (01:39)
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
[2025-08-15 11:19] VITALS: TEMP 98.6
[2025-08-15 11:23] VITALS: BP 120/77; O2SAT 97
== END 2025-08-15 03:40 | disposition home or self-care (01) ==
LOC: ER 01:01
DX: R21 Rash and other nonspecific skin eruption (principal); Z91.018 Allergy to other foods
CPT/HCPCS: 36415; 84703; 96372; 99284; J7512; J2919